=== PATIENT | male | born 1955 | race Caucasian/White ===

== ENCOUNTER → 2016-05-10 | Outpatient (CLI) | payer OTHER ==
--- NOTE | 2016-05-10 12:24 | US ---
EXAMINATION TYPE: US liver DATE OF EXAM: 05/10/2016 9:21 AM COMPARISON: CT on PACS 19 October 2015 CLINICAL HISTORY: hepatomegaly per order; patient states is on multiple meds for HTN, diabetes, CHF a nd drank daily x multiple years and has been sober x 24 days per patient; Ht6'2, Wt 196lbs EXAM MEASUREMENTS: Liver Length: 20.1cm Gallbladder Wall: 0.2cm CBD: 0.5cm Right Kidney: 11.9 x 5.6 x 4.3cm ANATOMY: There is no ascites. Echogenic focus within the liver compatible with calcifications seen on CT. Pancreas: hyperechoic Liver: enlarged as size > 18cm; prominent left lobe; very small hyperechoic focus at superior right lobe and may represent granuloma Gallbladder: couple of mobile, hyperechoic,shadowing posterior wall compatible with stones Evidence for sonographic Recinos's sign: no CBD: wnl Right Kidney: no hydro or masses seen IMPRESSION: Findings suggest fatty infiltration of the liver versus hepatocellular disease. Cholelith iasis. Limited exam. Normal Values: Liver Length: < 16cm wnl, 17-18cm upper limits, >18cm enlarged Renal Length = 9 - 12cm GB Wall: < 0.3cm CBD: < 0.6cm or < 1.0cm post cholecystectomy
== END | disposition home or self-care (01) ==
LOC: RADUSWWP 08:43
PROVIDERS: ATTEND Family Medicine
DX: K80.20 Calculus of gallbladder without cholecystitis without obstruction (principal); R16.0 Hepatomegaly, not elsewhere classified; Z90.49 Acquired absence of other specified parts of digestive tract
CPT/HCPCS: 76705

== ENCOUNTER 2016-06-23 20:45 | Inpatient (IN) | payer OTHER ==
[2016-06-23] MEDS ORDERED: SODIUM CHLORIDE 0.9% 500 ML IV ONE (21:03)
[2016-06-23 21:04] LABS: Glucose,Whole Blood 336 mg/dL (75-99)
[2016-06-23] MEDS ORDERED: MIDAZOLAM HCL 100 MG in SODIUM CHLORIDE 0.9% 80 ML IV ONE (21:57)
[2016-06-23] MEDS ORDERED: NALOXONE 0.4 MG/ML 1 ML VIAL IV PRN (22:10)
[2016-06-23] MEDS ORDERED: PROPOFOL 500 MG in EMPTY BAG 1 BAG IV ONE (22:10)
[2016-06-23] MEDS ORDERED: INSULIN NPH 300 UNIT/3 ML VIAL SQ PRN (22:13)
[2016-06-23 22:16] LABS: CH 30.4; CHCM 30.9; HCT 46.5 % (39.0-53.0); HDW 2.45; HGB 14.9 gm/dL (13.0-17.5); Hypochromasia Slight; MCH 31.6 pg (25.0-35.0); MCV 98.8 fL (80.0-100.0); Mean Platelet Volume 10.5; RBC 4.71 m/uL (4.30-5.90); RDW 13.8 % (11.5-15.5); WBC 17.4 k/uL (3.8-10.6); WBC (Perox) 18.11
[2016-06-23] MEDS ORDERED: SUCCINYLCHOLINE CHLORIDE VIAL 200 MG/10 ML VIAL IV STA (22:18)
[2016-06-23 22:19] LABS: ALT 252 U/L (21-72); AST 271 U/L (17-59); Alcohol <10 mg/dL; Alkaline Phosphatase 131 U/L (38-126); Anion Gap 16 mmol/L; Blood Urea Nitrogen 48 mg/dL (9-20); Calcium 10.2 mg/dL (8.4-10.2); Carbon Dioxide 29 mmol/L (22-30); Chloride 94 mmol/L (98-107); Glucose 333 mg/dL (74-99); Non-African American GFR(MDRD) >60 (>60 ml/min/1.73 sqM); Potassium 5.3 mmol/L (3.5-5.1); Sodium 139 mmol/L (137-145); Total Bilirubin 1.5 mg/dL (0.2-1.3); Total Protein 6.2 g/dL (6.3-8.2)
--- NOTE | 2016-06-23 22:35 | ED ---
General Adult HPI - General Chief complaint: Abdominal Pain Stated complaint: abd pain Time Seen by Provider: 06/23/16 20:48 Source: patient, EMS Mode of arrival: EMS - History of Present Illness Initial comments: Patient presents with a complaint of abdominal pain. My initial evaluation of the patient, he is completely altered. He does not answer questions and provides no further information. His family states that he has been in decline over couple days, however today he has not been responding or answering any questions of any kind. - Related Data Home Medications Medication Instructions Recorded Confirmed Budesonide-Formot 160-4.5 Mcg 2 puff INHALATION RT-BID 11/29/13 06/23/16 [Symbicort 160-4.5 Mcg Inhaler] Insulin NPH Human Isophane 0 unit SQ QAM PRN 11/29/13 06/23/16 [NovoLIN N] Insulin NPH Human Isophane 0 unit SQ HS 03/18/15 06/23/16 [NovoLIN N] Ipratropium/Albuterol Sulfate 1 puff INHALATION RT-TID 02/04/16 06/23/16 [Combivent Respimat Inhaler] Multivitamins, Thera [Multivitamin] 1 tab PO DAILY 02/04/16 06/23/16 Nitroglycerin Sl Tabs [Nitrostat] 0.4 mg SUBLINGUAL Q5M PRN 02/04/16 06/23/16 Biotin 1,000 mcg PO DAILY 06/23/16 06/23/16 Ciprofloxacin HCl [Cipro] 500 mg PO Q12HR 06/23/16 06/23/16 Folic Acid 0.4 mg PO DAILY 06/23/16 06/23/16 Magnesium Gluconate [Magonate] 500 mg PO DAILY 06/23/16 06/23/16 Metoprolol Tartrate [Lopressor] 12.5 mg PO BID 06/23/16 06/23/16 Pregabalin [Lyrica] 50 mg PO TID 06/23/16 06/23/16 Tamsulosin [Flomax] 0.4 mg PO HS 06/23/16 06/23/16 Vitamin B-12 1,000 mcg PO DAILY 06/23/16 06/23/16 Vitamin B-6 100 mcg PO DAILY 06/23/16 06/23/16 Vitamin K 100 mcg PO DAILY 06/23/16 06/23/16 predniSONE See Taper PO DAILY 06/23/16 06/23/16 Previous Rx's Medication Instructions Recorded Omeprazole [PriLOSEC] 20 mg PO BID #30 03/19/15 LORazepam [Ativan] 1 mg PO Q8H PRN #20 tab 12/31/15 Thiamine [Vitamin B-1] 100 mg PO DAILY #30 tablet 12/31/15 Allergies Allergy/AdvReac Type Severity Reaction Status Date / Time codeine AdvReac Nausea & Verified 06/23/16 21:05 Vomiting Opioids - Morphine Analogues AdvReac Nausea & Verified 06/23/16 21:05 Vomiting Opioids-Meperidine and AdvReac Nausea & Verified 06/23/16 21:05 Related Vomiting [Opioids-Meperidine & Related] Opioids-Methadone and Related AdvReac Nausea & Verified 06/23/16 21:05 [Opioids-Methadone & Related] Vomiting Review of Systems ROS Statement: Those systems with pertinent positive or pertinent negative responses have been documented in the HPI. ROS Other: All systems not noted in ROS Statement are negative. Past Medical History Past Medical History: Atrial Fibrillation, Heart Failure, COPD, Diabetes Mellitus, GERD/Reflux, Hyperlipidemia, Hypertension, Sleep Apnea/CPAP/BIPAP Additional Past Medical History / Comment(s): Other HX: Chronic hypoxic respiratory failure and the patient OXYGEN dependent between 3-1/2-4 L prn and at night, IDDM type II, paroxysmal AFIB, alcoholism, diverticulosis, obstuctive sleep apnea but no Cpap since wt loss, sinusitis, neuropathy bilateral feet. History of Any Multi-Drug Resistant Organisms: None Reported Past Surgical History: Heart Catheterization Additional Past Surgical History / Comment(s): colonoscopy x 2, eyelid surgery bilaterally, cardiac cath without intervention. Past Anesthesia/Blood Transfusion Reactions: Postoperative Nausea & Vomiting ( PONV) Additional Past Anesthesia/Blood Transfusion Reaction / Comment(s): Pt states he has had PONV with gas only. Past Psychological History: Anxiety, Depression, Panic Disorder Additional Psychological History / Comment(s): He uses no assistive device. He drives. Smoking Status: Current every day smoker Past Alcohol Use History: Abuse, Daily Additional Past Alcohol Use History / Comment(s): HAS BEEN SMOKING 1 PPD FOR PAST 40 YEARS. Pt states he is an alcoholic. He drinks whiskey every day " alot of it." He last drank at earlier this morning today. He has hx of DTs. Past Drug Use History: Unable to Obtain Additional Drug Use History / Comment(s): Pt states in the 1970s and s he used a variety of drugs (unable to state which ones) but has not used any since. - Past Family History Mother Family Medical History: Thyroid Disorder Additional Family Medical History / Comment(s): Mother is 86 yrs. old. Father Additional Family Medical History / Comment(s): Father of diverticulitis, peritonitis at the age of 35yrs. General Exam Limitations: altered mental status General appearance: lethargic, obtunded Head exam: Present: atraumatic Eye exam: Present: normal appearance ENT exam: Present: normal exam Neck exam: Absent: tenderness Respiratory exam: Present: accessory muscle use, decreased breath sounds Cardiovascular Exam: Present: tachycardia GI/Abdominal exam: Present: distended, tenderness Extremities exam: Present: normal inspection, full ROM, normal capillary refill. Absent: tenderness, pedal edema, joint swelling, calf tenderness Back exam: Present: normal inspection Neurological exam: Present: other (Disoriented) Psychiatric exam: Absent: normal affect Skin exam: Present: mottled, other Course Vital Signs 06/23/16 20:46 Temperature 98.3 F Pulse Rate 49 L Respiratory 20 Rate Blood Pressure 112/58 O2 Sat by Pulse 97 Oximetry Medical Decision Making - Medical Decision Making Patient presents with acute altered mental status. The differential is broad. He was not adequately protecting his airway. Therefore I intubated the patient. 1 view chest x-ray confirms tube position. Bilateral breath sounds are auscultated. Patient will be started on a drip for sedation. He will be admitted to the ICU. - Lab Data Result diagrams: 06/23/16 21:45 06/23/16 21:45 Lab Results 06/23/16 06/23/16 06/23/16 Range/Units 21:00 21:45 21:45 WBC 17.4 H (3.8-10.6) k/uL RBC 4.71 (4.30-5.90) m/uL Hgb 14.9 (13.0-17.5) gm/dL Hct 46.5 (39.0-53.0) % MCV 98.8 (80.0-100.0) fL MCH 31.6 (25.0-35.0) pg MCHC 32.0 (31.0-37.0) g/dL RDW 13.8 (11.5-15.5) % Plt Count 164 (150-450) k/uL Sodium 139 (137-145) mmol/L Potassium 5.3 H (3.5-5.1) mmol/L Chloride 94 L (98-107) mmol/L Carbon Dioxide 29 (22-30) mmol/L Anion Gap 16 mmol/L BUN 48 H (9-20) mg/dL Creatinine 0.80 (0.66-1.25) mg/dL Est GFR (MDRD) Af Amer >60 (>60 ml/min/1.73 sqM) Est GFR (MDRD) Non-Af >60 (>60 ml/min/1.73 sqM) Glucose 333 H (74-99) mg/dL POC Glucose (mg/dL) 336 H (75-99) mg/dL POC Glu Bottle Carrier ID Gail Henderson Calcium 10.2 (8.4-10.2) mg/dL Total Bilirubin 1.5 H (0.2-1.3) mg/dL AST 271 H (17-59) U/L ALT 252 H (21-72) U/L Alkaline Phosphatase 131 H (38-126) U/L Total Protein 6.2 L (6.3-8.2) g/dL Albumin 3.2 L (3.5-5.0) g/dL Serum Alcohol <10 mg/dL Critical Care Time Critical Care Time: Yes Total Critical Care Time: 35 Disposition Clinical Impression: Altered mental status Disposition: ADMITTED IP TO THIS [facility] Condition: Critical Time of Disposition: 22:35
[2016-06-23 22:40] LABS: INR 1.4 (<1.1); Partial Thromboplastin Time 25.5 sec (22.0-30.0); Prothrombin Time 13.9 sec (9.0-12.0)
[2016-06-23 22:41] LABS: Add Differential Manual Differential
[2016-06-23 22:42] LABS: Manual Review Performed; Nucleated Red Blood Cells 0 /100 WBC (0-0); Total Cells Counted 100; Toxic Vacuolation Present
--- NOTE | 2016-06-23 22:48 | XR ---
EXAMINATION TYPE: XR chest 1V portable DATE OF EXAM: 06/23/2016 10:35 PM COMPARISON: April 17, 2016 HISTORY: Altered mental status. Placement TECHNIQUE: Single frontal view of the chest is obtained. Portable study 06/23/2016, 10:30 PM hours. FINDINGS: ET tube is noted in place with its tip 2 cm above the hammad. Mild prominence of bronchovascular markings is noted of chronic nature. There is no focal air space opacity, pleural effusion, or pneumothorax seen. The cardiac silhouette size is within normal limits. The osseous structures are intact. IMPRESSION: 1. ET tube is noted in place. 2. No focal pneumonia.
[2016-06-23 22:51] LABS: ABG PCO2 70 mmHg (35-45); ABG PH 7.23 (7.35-7.45)
[2016-06-23 22:52] LABS: ABG Base Excess 1.1 mmol/L; ABG HCO3 28 mmol/L (21-25); ABG PO2 279 mmHg (83-108); ABG TCO2 30 mmol/L (19-24)
[2016-06-23] MEDS ORDERED: metroNIDAZOLE-NS PMX 500 MG in SALINE 1 100ML.BAG IVPB STA (22:59)
[2016-06-23] MEDS ORDERED: IV VANCOMYCIN PER PHARMACY 1 EACH MISC MISCELLANE PRN (22:59)
[2016-06-23] MEDS ORDERED: PANTOPRAZOLE 40 MG/10 ML VIAL IVP ONE (22:59)
[2016-06-23] MEDS ORDERED: SODIUM CHLORIDE 0.9% 1,000 ML IV STA (23:00)
[2016-06-23 23:08] LABS: Amorphous Sediment,Urine Rare /hpf; Appearance,Urine Cloudy (Clear); Bilirubin,Urine 1+ (Negative); Glucose,Urine (UA) Trace (Negative); Ketones,Urine Trace (Negative); Leukocyte Esterase,Urine Negative (Negative); Mucus,Urine Few /hpf; Nitrite,Urine Negative (Negative); PH, Urine 5.5 (5.0-8.0); Particle Count 26816; Protein,Urine 1+ (Negative); UA Billing (MACRO vs. MICRO) MICRO; WBC,Urine 3 /hpf (0-5)
--- NOTE | 2016-06-23 23:41 | CT ---
EXAMINATION TYPE: CT brain wo con DATE OF EXAM: 06/23/2016 11:29 PM COMPARISON: 02/16/2016 HISTORY: AMS CT DLP: 1126.50 mGycm Automated exposure control for dose reduction was used. FINDINGS: There is no acute intracranial hemorrhage, mass effect, or midline shift identified. The cortical sul ci and ventricles are slightly prominent in size. Mild periventricular white matter ischemic changes are suggested bilaterally. The globes are intact. Mucosal thickening is noted in the maxillary and et hmoid sinuses and frontal sinuses with chronic sinusitis changes. ET tube is noted in place. IMPRESSION: No acute intracranial hemorrhage, mass effect, or midline shift is seen. Mild atrophic changes of brain with periventricular white matter ischemic changes. No significant interval change. ET tube noted in place. Chronic sinusitis changes.
--- NOTE | 2016-06-24 00:09 | CT ---
EXAMINATION TYPE: CT abdomen pelvis w con DATE OF EXAM: 06/23/2016 11:29 PM COMPARISON: 10/19/2015 HISTORY: LUQ pain, hx of liver failure CT DLP: 1638.10 mGycm Automated exposure control for dose reduction was used. TECHNIQUE: Helical acquisition of images was performed from the lung bases through the pelvis. CONTRAST: Performed without Oral Contrast and with IV Contrast, patient injected with 100 mL of Omnipaque 300. FINDINGS: LUNG BASES: Mild right lower lobe lung atelectasis and infiltrate is noted. This may represent a righ t lower lobe posterior basal segment pneumonia. NG tube is noted in place. LIVER/GB: Mild hepatomegaly is suggested. There is interval development of hypodense slightly enhancing mass measuring 9.8 x 9.6 cm in the left hepatic lobe in the axial image 29 and there which measures 1.5 cm in craniocaudal dimension in the coronal image 26 and may represent benign inflammatory process with abscess collection. However metas tatic disease process cannot be excluded. Heterogeneous densities are noted in the gallbladder lumen and may represent small polyps or gallston es. Minor thickening of caliber wall is suggested. Possibility of hydrops gallbladder changes cannot be excluded. Mild ascites fluid is suggested surrounding the liver spleen and lower pelvis. PANCREAS: No significant abnormality is seen. SPLEEN: No significant abnormality is seen. ADRENALS: No significant abnormality is seen. KIDNEYS: Mild cystic changes are suggested in both kidneys without significant hydronephrosis or obst ructing stones. RETROPERITONEAL ADENOPATHY: None visualized REPRODUCTIVE ORGANS: No significant abnormality is seen URINARY BLADDER: Showed thickened mucosal wall with Werner catheter in place with probable incomplete distention of the urinary bladder. Possibility of chronic inflammation of urinary bladder cannot be excluded. Small air collection is noted in the lumen of the urinary bladder. PELVIC ADENOPATHY: None visualized. OSSEOUS STRUCTURES: Mild multilevel degenerative changes are present in the thoracolumbar spine. BOWEL: NG tube is noted in the stomach. Small bowel loops appear grossly unremarkable without signif icant obstruction. There is evidence of moderate colonic diverticulosis especially in the sigmoid col on. Minor free fluid collection is noted in the lower pelvis in the axial image 83 and possibility of mild inflammation of colon cannot BE excluded. Visualized appendix appears grossly unremarkable in t he coronal image 42. OTHER: [id number] diffuse atherosclerotic calcification is noted in the abdominal aorta and akosua ac arteries with greatest transverse diameter of 2.4 cm in the axial image 46. Small fat-containing umbilical hernia is noted. Mild ascites fluid is suggested in the left upper quadrant of abdomen in the axial image 26 with mild inflammation. Mild ascites fluid is also noted around the liver and in the lower pelvis. IMPRESSION: 1. THERE IS INTERVAL DEVELOPMENT OF MASSLIKE AREA IN THE LEFT HEPATIC LOBE MEASURING 9.8 X 9.6 BY 11. 5 CM AND MAY REPRESENT FOCAL INFLAMMATORY PROCESS OR ABSCESS COLLECTION HOWEVER METASTATIC DISEASE [place] OCESS CANNOT BE EXCLUDED. 2. Moderate colonic diverticulosis is noted without significant focal abscess collection. Minor free fluid collection is noted in the lower pelvis and possibility of mild inflammation of the colon canno t BE excluded. This fluid collection may also be related to ascites fluid which is seen around liver and left upper abdomen. 3. Werner catheter is noted in the urinary bladder. Possibility of chronic inflammation of urinary fabian dder cannot be excluded. 4. Right lower lobe lung infiltrate/pneumonia/atelectasis. 5. NG tube is noted. 6. Possible polyps or stones in the gallbladder. An ultrasound study would BE helpful in the evaluati on. Possibility of hydrops gallbladder changes cannot be excluded. 7. Cystic changes in both kidneys without hydronephrosis. A phone report is given to Dr. Fonseca at the time of the dictation in the emergency room.
[2016-06-24] MEDS ORDERED: AMPICILLIN-SULBACTAM 3 GM in SODIUM CHLORIDE 0.9% 100 ML IVPB STA (00:11)
[2016-06-24] MEDS ORDERED: LORazepam 2 MG/ML SYRINGE IV STA (00:18)
[2016-06-24] MEDS ORDERED: NOREPINEPHRINE 4 MG in SODIUM CHLORIDE 0.9% 250 ML IV SCH (00:30)
[2016-06-24] MEDS: AMPICILLIN-SULBACTAM 3 GM in SODIUM CHLORIDE 0.9% 100 ML IVPB SCH ×3 (00:48→12:50)
[2016-06-24] MEDS: VANCOMYCIN 1,500 MG in SODIUM CHLORIDE 0.9% 250 ML IVPB SCH ×3 (02:50→16:02)
[2016-06-24 03:16] LABS: Glucose,Whole Blood 321 mg/dL (75-99)
[2016-06-24 03:34] LABS: Amorphous Sediment,Urine Rare /hpf; Appearance,Urine Turbid (Clear); Bacteria,Urine Rare /hpf; Bilirubin,Urine 1+ (Negative); Glucose,Urine (UA) Trace (Negative); Ketones,Urine Negative (Negative); Leukocyte Esterase,Urine Negative (Negative); Mucus,Urine Many /hpf; Nitrite,Urine Negative (Negative); PH, Urine 5.5 (5.0-8.0); Particle Count 45633; Protein,Urine 2+ (Negative); RBC,Urine 8 /hpf (0-5); Specific Gravity,Urine 1.041 (1.001-1.035); Squamous Epithelial Cell,Urine 5 /hpf (0-4); UA Billing (MACRO vs. MICRO) MICRO; WBC,Urine 6 /hpf (0-5)
[2016-06-24] MEDS: SODIUM CHLORIDE 0.9% 1,000 ML IV SCH ×2 (04:11→16:05)
[2016-06-24 04:47] LABS: ABG Base Excess -2.8 mmol/L; ABG HCO3 24 mmol/L (21-25); ABG Oxygen Saturation 97.4 % (94-97); ABG PCO2 63 mmHg (35-45); ABG PH 7.21 (7.35-7.45); ABG PO2 117 mmHg (83-108); ABG TCO2 26 mmol/L (19-24)
[2016-06-24 05:09] LABS: INR 1.4 (<1.1); Partial Thromboplastin Time 25.8 sec (22.0-30.0); Prothrombin Time 13.5 sec (9.0-12.0)
[2016-06-24 05:13] LABS: Anion Gap 14 mmol/L; Aty Lym Flag Slight; Blood Urea Nitrogen 54 mg/dL (9-20); CH 30.2; CHCM 29.8; Calcium 8.6 mg/dL (8.4-10.2); Carbon Dioxide 20 mmol/L (22-30); Chloride 102 mmol/L (98-107); Glucose 316 mg/dL (74-99); HCT 44.2 % (39.0-53.0); HDW 2.35; HGB 13.3 gm/dL (13.0-17.5); Hypochromasia Marked; MCH 30.5 pg (25.0-35.0); MCV 101.6 fL (80.0-100.0); Macrocytosis Slight; Magnesium 1.9 mg/dL (1.6-2.3); Mean Platelet Volume 10.2; Non-African American GFR(MDRD) 52 (>60 ml/min/1.73 sqM); Phosphorous 5.7 mg/dL (2.5-4.5); Potassium 5.8 mmol/L (3.5-5.1); RBC 4.35 m/uL (4.30-5.90); RDW 13.8 % (11.5-15.5); Sodium 136 mmol/L (137-145); WBC 18.8 k/uL (3.8-10.6); WBC (Perox) 18.44
[2016-06-24] MEDS: PROPOFOL 500 MG in EMPTY BAG 1 BAG IV SCH ×4 (05:18→20:45)
[2016-06-24] MEDS ORDERED: SODIUM CHLORIDE 0.9% 1,000 ML IV ONE ×2 (05:25→06:27)
[2016-06-24 05:42] LABS: Add Differential Manual Differential
[2016-06-24 05:48] LABS: Band Neutrophils % 1.5 %; Manual Review Performed; Nucleated Red Blood Cells 0 /100 WBC (0-0); Total Cells Counted 200
[2016-06-24 05:49] LABS: Large Platelets Present
[2016-06-24 06:06] LABS: Glucose,Whole Blood 321 mg/dL (75-99)
[2016-06-24] MEDS: NOREPINEPHRINE 16 MG in SODIUM CHLORIDE 0.9% 250 ML IV SCH ×2 (06:34→14:54)
[2016-06-24] MEDS: LEVALBUTEROL NEB (CONC) 1.25 MG/0.5 ML AMP INHALATION SCH ×4 (07:52→19:45)
[2016-06-24] MEDS: IPRATROPIUM 0.5 MG/2.5 ML NEBU INHALATION SCH ×4 (07:52→19:45)
--- NOTE | 2016-06-24 08:40 | XR ---
EXAMINATION TYPE: XR chest 1V portable DATE OF EXAM: 06/24/2016 6:42 AM HISTORY: Ventilatory progress. REFERENCE: Previous study dated 06/23/2016. FINDINGS: The patient is ET tube remains in place in satisfactory position. An NG tube is been passed . Its tip is not visualized. The heart is mildly enlarged. There is some right basilar airspace disease. There is a small right ef fusion. IMPRESSION: 1. DEVELOPING RIGHT BASILAR INFILTRATE. 2. SMALL RIGHT EFFUSION. 3. MILD CARDIOMEGALY.
[2016-06-24 08:55] LABS: Glucose,Whole Blood 306 mg/dL (75-99)
[2016-06-24] MEDS ORDERED: METOPROLOL TARTRATE 12.5 MG TAB PO SCH (09:00)
[2016-06-24] MEDS ORDERED: VITAMIN K 100 MCG PO SCH (09:00)
[2016-06-24] MEDS: HEPARIN SODIUM,PORCINE 5,000 UNIT/ML 1 ML VIAL SQ SCH ×2 (09:29→15:02)
[2016-06-24] MEDS: PANTOPRAZOLE 40 MG/10 ML VIAL IVP SCH ×2 (09:29→20:38)
[2016-06-24] MEDS: CHLORHEXIDINE GLUCONATE 15 ML CUP MUCOUS MEM SCH ×2 (09:29→20:44)
--- NOTE | 2016-06-24 09:31 | P.CNPUL ---
History of Present Illness Consult date: 06/24/16 Reason for consult: other Chief complaint: Abdominal pain and respiratory failure History of present illness: This is a 60-year-old gentleman who apparently came into the emergency room complaining of abdominal pain. The patient was seen by the ER doctor. I did talk to the ER doctor. The patient apparently declined in the emergency room and was eventually intubated and transferred here to the ICU. The circumstances of his visit to the ER not well-documented in the ER nereyda. I'm not sure exactly what happened. He did have a computed tomography scan which showed a possible right upper quadrant abscess or liver abnormality. GI and surgery has been consulted. He's given the lines. He was sent up to the ICU about 3:30 this morning. He's currently on Levophed at 32 mics per minute. He is on propofol and 18 mics per kilogram per minute appointment 9 IV at 75. He is currently on the ventilator of the assist control mode rate of 14 tidal [place] 500 FiO2 40% PEEP of 5. We will increase the tidal volume to try decrease the time of I'm to 4:15 increase rate to 20. Blood gases show pO2 of 112 a pCO2 of 63 and a pH 7.21. This is on 60% FiO2. The patient apparently has a history of atrial fibrillation CHF COPD diabetes mellitus GERD hyperlipidemia benign essential hypertension sleep apnea. Again not much is known about this patient in the ER documentation is rather poor. Review of Systems ROS unobtainable: due to endotracheal tube Past Medical History Past Medical History: Atrial Fibrillation, Heart Failure, COPD, Diabetes Mellitus, GERD/Reflux, Hyperlipidemia, Hypertension, Sleep Apnea/CPAP/BIPAP Additional Past Medical History / Comment(s): Other HX: Chronic hypoxic respiratory failure and the patient OXYGEN dependent between 3-1/2-4 L prn and at night, IDDM type II, paroxysmal AFIB, alcoholism, diverticulosis, obstuctive sleep apnea but no Cpap since wt loss, sinusitis, neuropathy bilateral feet. History of Any Multi-Drug Resistant Organisms: None Reported Past Surgical History: Heart Catheterization Additional Past Surgical History / Comment(s): colonoscopy x 2, eyelid surgery bilaterally, cardiac cath without intervention. Past Anesthesia/Blood Transfusion Reactions: Postoperative Nausea & Vomiting ( PONV) Additional Past Anesthesia/Blood Transfusion Reaction / Comment(s): Pt states he has had PONV with gas only. Past Psychological History: Anxiety, Depression, Panic Disorder Additional Psychological History / Comment(s): He uses no assistive device. He drives. Smoking Status: Current every day smoker Past Alcohol Use History: Abuse, Daily Additional Past Alcohol Use History / Comment(s): HAS BEEN SMOKING 1 PPD FOR PAST 40 YEARS. Pt states he is an alcoholic. He drinks whiskey every day " alot of it." He last drank at earlier this morning today. He has hx of DTs. Past Drug Use History: Unable to Obtain Additional Drug Use History / Comment(s): Pt states in the 1970s and he used a variety of drugs (unable to state which ones) but has not used any since. - Past Family History Mother Family Medical History: Thyroid Disorder Additional Family Medical History / Comment(s): Mother is 86 yrs. old. Father Additional Family Medical History / Comment(s): Father of diverticulitis, peritonitis at the age of 35yrs. Medications and Allergies Home Medications Medication Instructions Recorded Confirmed Type Budesonide-Formot 160-4.5 Mcg 2 puff INHALATION RT-BID 11/29/13 06/23/16 History [Symbicort 160-4.5 Mcg Inhaler] Insulin NPH Human Isophane 50 unit SQ AC-BRKFST PRN 11/29/13 06/24/16 History [NovoLIN N] Insulin NPH Human Isophane 45 unit SQ AC-SUPPER 03/18/15 06/24/16 History [NovoLIN N] Ipratropium/Albuterol Sulfate 1 puff INHALATION RT-TID 02/04/16 06/23/16 History [Combivent Respimat Inhaler] Multivitamins, Thera [Multivitamin] 1 tab PO DAILY 02/04/16 06/23/16 History Nitroglycerin Sl Tabs [Nitrostat] 0.4 mg SUBLINGUAL Q5M PRN 02/04/16 06/23/16 History Biotin 1,000 mcg PO DAILY 06/23/16 06/23/16 History Ciprofloxacin HCl [Cipro] 500 mg PO Q12HR 06/23/16 06/23/16 History Folic Acid 0.4 mg PO DAILY 06/23/16 06/23/16 History Magnesium Gluconate [Magonate] 500 mg PO DAILY 06/23/16 06/23/16 History Metoprolol Tartrate [Lopressor] 12.5 mg PO BID 06/23/16 06/23/16 History Pregabalin [Lyrica] 50 mg PO TID 06/23/16 06/23/16 History Tamsulosin [Flomax] 0.4 mg PO HS 06/23/16 06/23/16 History Vitamin B-12 1,000 mcg PO DAILY 06/23/16 06/23/16 History Vitamin B-6 100 mcg PO DAILY 06/23/16 06/23/16 History Vitamin K 100 mcg PO DAILY 06/23/16 06/23/16 History predniSONE See Taper PO DAILY 06/23/16 06/23/16 History Allergies Allergy/AdvReac Type Severity Reaction Status Date / Time codeine AdvReac Nausea & Verified 06/23/16 21:05 Vomiting Opioids - Morphine Analogues AdvReac Nausea & Verified 06/23/16 21:05 Vomiting Opioids-Meperidine and AdvReac Nausea & Verified 06/23/16 21:05 Related Vomiting [Opioids-Meperidine & Related] Opioids-Methadone and Related AdvReac Nausea & Verified 06/23/16 21:05 [Opioids-Methadone & Related] Vomiting Physical Exam Osteopathic Statement: *. No significant issues noted on an osteopathic structural exam other than those noted in the History and Physical/Consult. Vitals: Vital Signs Temp Pulse Resp BP Pulse Ox 06/24/16 08:39 91 06/24/16 07:55 85 06/24/16 07:00 81 29 H 78/55 95 06/24/16 06:30 86 19 95/59 94 L 06/24/16 06:00 83 15 89/59 96 06/24/16 05:00 84 15 93/63 95 06/24/16 04:30 85 14 100 06/24/16 04:00 97.8 F 88 15 79/57 100 06/24/16 03:51 16 06/24/16 03:50 88 15 79/57 100 06/24/16 03:40 90 12 81/58 100 06/24/16 03:30 90 14 84/50 100 06/24/16 03:20 89 14 84/50 99 06/24/16 03:15 89/60 06/24/16 02:51 92 16 90/54 100 06/24/16 02:21 92 16 86/56 100 06/24/16 01:51 92 16 85/57 100 06/24/16 01:21 92 16 89/57 100 06/24/16 00:21 103 H 20 75/50 100 Intake and Output 06/23/16 06/24/16 06/24/16 22:59 06:59 14:59 Intake Total 4052.082 1017.298 Output Total 87 57 Balance 3965.082 960.298 Intake: IV 1475 1000 Ampicillin-Sulbactam 3 gm 100 In Sodium Chloride 0.9% 100 ml @ 100 mls/hr IVPB Q6HR [facility] Rx#:[id number] Sodium Chloride 0.9% 1, 125 000 ml @ 75 mls/hr IV . [id number] [facility] Rx#:[id number] Sodium Chloride 0.9% 1, 1000 1000 000 ml @ 999 mls/hr IV . Q1H1M [facility] Rx#:[id number] Vancomycin 1,500 mg In 250 Sodium Chloride 0.9% 250 ml @ 125 mls/hr IVPB Q8H [facility] Rx#:[id number] Amount of Fluid Infused ( 2300 ml) Intake, IV Titration 277.082 17.298 Amount Norepinephrine 16 mg In 3.724 8.976 Sodium Chloride 0.9% 250 ml @ Titrate IV .Q0M [facility] Rx#:[id number] Norepinephrine 4 mg In 254.000 Sodium Chloride 0.9% 250 ml @ Titrate IV .Q0M [facility] Rx#:[id number] Propofol 500 mg In Empty 12.238 Bag 1 bag @ Titrate IV . Q0M [facility] Rx#:[id number] Propofol 500 mg In Empty 7.120 8.322 Bag 1 bag @ Titrate IV . Q0M [facility] Rx#:[id number] Output: Urine 87 57 Other: Voiding Method Indwelling Catheter Weight 92.6 kg The patient's intubated and mechanically ventilated. He states that he's had an orally placed endotracheal tube and NG tube. HEENT examination is grossly unremarkable. Mixed membranes are moist. An orally placed endotracheal tube and NG tube are noted. Neck supple. Full range of motion. Cardiovascular examination reveals regular rhythm rate. Heart rate about 90. Is regular. Lungs reveal diffuse bilateral rhonchi. Breath sounds diminished. Abdomen soft. Bowel sounds are heard. Extremities are intact. Results - Laboratory Findings CBC and BMP: 06/24/16 04:33 06/24/16 04:33 ABG ABG pH 7.21 (7.35-7.45) L 06/24/16 04:42 ABG pCO2 63 mmHg (35-45) H 06/24/16 04:42 ABG pO2 117 mmHg (83-108) H 06/24/16 04:42 ABG O2 Saturation 97.4 % (94-97) H 06/24/16 04:42 PT/INR, D-dimer PT 13.5 sec (9.0-12.0) H 06/24/16 04:33 INR 1.4 (<1.1) 06/24/16 04:33 Abnormal lab findings: Abnormal Labs 06/23/16 06/24/16 06/24/16 22:40 03:14 03:20 WBC MCV MCHC Neutrophils # (Manual) Lymphocytes # (Manual) Monocytes # (Manual) PT ABG pH 7.23 L ABG pCO2 70 H* ABG pO2 279 H ABG HCO3 28 H ABG Total CO2 30 H ABG O2 Saturation 100.0 H Sodium Potassium Carbon Dioxide BUN Creatinine Glucose POC Glucose (mg/dL) 321 H Phosphorus Ur Specific [place] 1.041 H Urine Protein 2+ H Urine Glucose (UA) Trace H Urine Bilirubin 1+ H Urine RBC 8 H Urine WBC 6 H Ur Squamous Epith Cells 5 H Amorphous Sediment Rare H Urine Bacteria Rare H Hyaline Casts 26 H Urine Mucus Many H 06/24/16 06/24/16 06/24/16 04:33 04:33 04:33 WBC 18.8 H MCV 101.6 H MCHC 30.0 L Neutrophils # (Manual) 15.2 H Lymphocytes # (Manual) 0.6 L Monocytes # (Manual) 3.0 H PT 13.5 H ABG pH ABG pCO2 ABG pO2 ABG HCO3 ABG Total CO2 ABG O2 Saturation Sodium 136 L Potassium 5.8 H Carbon Dioxide 20 L BUN 54 H Creatinine 1.40 H Glucose 316 H POC Glucose (mg/dL) Phosphorus 5.7 H Ur Specific [place] Urine Protein Urine Glucose (UA) Urine Bilirubin Urine RBC Urine WBC Ur Squamous Epith Cells Amorphous Sediment Urine Bacteria Hyaline Casts Urine Mucus 06/24/16 06/24/16 06/24/16 04:42 06:04 08:53 WBC MCV MCHC Neutrophils # (Manual) Lymphocytes # (Manual) Monocytes # (Manual) PT ABG pH 7.21 L ABG pCO2 63 H ABG pO2 117 H ABG HCO3 ABG Total CO2 26 H ABG O2 Saturation 97.4 H Sodium Potassium Carbon Dioxide BUN Creatinine Glucose POC Glucose (mg/dL) 321 H 306 H Phosphorus Ur Specific [place] Urine Protein Urine Glucose (UA) Urine Bilirubin Urine RBC Urine WBC Ur Squamous Epith Cells Amorphous Sediment Urine Bacteria Hyaline Casts Urine Mucus - Diagnostic Findings Chest x-ray: image reviewed (X-rays labs and medications are all reviewed) Assessment and Plan Plan: Assessment Hypoxemic respiratory failure secondary to pneumonia Possible liver abscess History of hypertension History of hyperlipidemia History of sleep apnea syndrome History of atrial fibrillation History of diabetes History of CHF next Plan GI surgeries bit both been consulted. Neither seen the patient. The patient's tidal volume was dropped drop from 500-450. We increase the rate from 14-20. Blood gases will be repeated. He is on propofol at 18 mics per kilogram per minute. Getting appointment 9 IV at 75 mL an hour. He is on vasopressor at 32 mics per kilo per kilogram per minute. He does need an art line and central line. We'll do that this morning. We'll review his medications labs. We'll review his x-rays. Chest x-ray does show developing right basilar infiltrate. Prognosis is guarded. Time with Patient: Greater than 30
--- NOTE | 2016-06-24 09:31 | P.CONS ---
History of Present Illness - Reason for Consult Consult date: 06/24/16 liver mass Requesting physician: Vel Wilburn - History of Present Illness 60-year-old gentleman with a history of EtOH abuse recent hospitalization in April 2016 for alcohol intoxication with withdrawal with underlying COPD home O2 dependent, atrial fibrillation, diabetes mellitus, GERD, hypertension, hyperlipidemia, sleep apnea, anxiety, depression. Admitted with acute mental status changes and subsequently intubated, sedated, currently receiving IV pressors. Medical information obtained from nursing staff and medical records as patient is unable to provide history. Hesitation requested for liver mass. CT abdomen and pelvis reported hypodense enhancing mass measuring 9.8 x 9.6 m in the left hepatic lobe may represent benign process possible abscess collection however metastatic disease cannot be excluded. Gallstone with multiple stones or polyps. Colonic diverticulosis. CT brain no acute intracranial hemorrhage or mass effect or midline shift. Liver ultrasound on May 10 reported enlarged liver with fatty infiltration versus hepatocellular disease. Cholelithiasis. Admission white count 17.4. Hemoglobin 14.9. INR 1.4. Serum alcohol less than 10. Total bilirubin 1.5. AST 271. ALT 252. Alkaline phosphatase 131. Ammonia 11. Liver chemistries in April 2016 normal bilirubin and ALT. AST was 107. Alk phos was 152. Review of Systems ROS unobtainable: due to endotracheal tube, due to mental status All systems: negative (See HPI) Past Medical History Past Medical History: Atrial Fibrillation, Heart Failure, COPD, Diabetes Mellitus, GERD/Reflux, Hyperlipidemia, Hypertension, Sleep Apnea/CPAP/BIPAP Additional Past Medical History / Comment(s): Other HX: Chronic hypoxic respiratory failure and the patient OXYGEN dependent between 3-1/2-4 L prn and at night, IDDM type II, paroxysmal AFIB, alcoholism, diverticulosis, obstuctive sleep apnea but no Cpap since wt loss, sinusitis, neuropathy bilateral feet. History of Any Multi-Drug Resistant Organisms: None Reported Past Surgical History: Heart Catheterization Additional Past Surgical History / Comment(s): colonoscopy x 2, eyelid surgery bilaterally, cardiac cath without intervention. Past Anesthesia/Blood Transfusion Reactions: Postoperative Nausea & Vomiting ( PONV) Additional Past Anesthesia/Blood Transfusion Reaction / Comm: Pt states he has had PONV with gas only. Past Psychological History: Anxiety, Depression, Panic Disorder Additional Psychological History / Comment(s): He uses no assistive device. He drives. Smoking Status: Current every day smoker Past Alcohol Use History: Abuse, Daily Additional Past Alcohol Use History / Comment(s): HAS BEEN SMOKING 1 PPD FOR PAST 40 YEARS. Pt states he is an alcoholic. He drinks whiskey every day " alot of it." He last drank at earlier this morning today. He has hx of DTs. Past Drug Use History: Unable to Obtain Additional Drug Use History / Comment(s): Pt states in the s and he used a variety of drugs (unable to state which ones) but has not used any since. - Past Family History Mother Family Medical History: Thyroid Disorder Additional Family Medical History / Comment(s): Mother is 86 yrs. old. Father Additional Family Medical History / Comment(s): Father of diverticulitis, peritonitis at the age of 35yrs. Medications and Allergies Home Medications Medication Instructions Recorded Confirmed Type Budesonide-Formot 160-4.5 Mcg 2 puff INHALATION RT-BID 11/29/13 06/23/16 History [Symbicort 160-4.5 Mcg Inhaler] Insulin NPH Human Isophane 50 unit SQ AC-BRKFST PRN 11/29/13 06/24/16 History [NovoLIN N] Insulin NPH Human Isophane 45 unit SQ AC-SUPPER 03/18/15 06/24/16 History [NovoLIN N] Ipratropium/Albuterol Sulfate 1 puff INHALATION RT-TID 02/04/16 06/23/16 History [Combivent Respimat Inhaler] Multivitamins, Thera [Multivitamin] 1 tab PO DAILY 02/04/16 06/23/16 History Nitroglycerin Sl Tabs [Nitrostat] 0.4 mg SUBLINGUAL Q5M PRN 02/04/16 06/23/16 History Biotin 1,000 mcg PO DAILY 06/23/16 06/23/16 History Ciprofloxacin HCl [Cipro] 500 mg PO Q12HR 06/23/16 06/23/16 History Folic Acid 0.4 mg PO DAILY 06/23/16 06/23/16 History Magnesium Gluconate [Magonate] 500 mg PO DAILY 06/23/16 06/23/16 History Metoprolol Tartrate [Lopressor] 12.5 mg PO BID 06/23/16 06/23/16 History Pregabalin [Lyrica] 50 mg PO TID 06/23/16 06/23/16 History Tamsulosin [Flomax] 0.4 mg PO HS 06/23/16 06/23/16 History Vitamin B-12 1,000 mcg PO DAILY 06/23/16 06/23/16 History Vitamin B-6 100 mcg PO DAILY 06/23/16 06/23/16 History Vitamin K 100 mcg PO DAILY 06/23/16 06/23/16 History predniSONE See Taper PO DAILY 06/23/16 06/23/16 History Allergies Allergy/AdvReac Type Severity Reaction Status Date / Time codeine AdvReac Nausea & Verified 06/23/16 21:05 Vomiting Opioids - Morphine Analogues AdvReac Nausea & Verified 06/23/16 21:05 Vomiting Opioids-Meperidine and AdvReac Nausea & Verified 06/23/16 21:05 Related Vomiting [Opioids-Meperidine & Related] Opioids-Methadone and Related AdvReac Nausea & Verified 06/23/16 21:05 [Opioids-Methadone & Related] Vomiting Physical Exam Vitals: Vital Signs Temp Pulse Resp BP Pulse Ox 06/24/16 08:39 91 06/24/16 07:55 85 06/24/16 07:00 81 29 H 78/55 95 06/24/16 06:30 86 19 95/59 94 L 06/24/16 06:00 83 15 89/59 96 06/24/16 05:00 84 15 93/63 95 06/24/16 04:30 85 14 100 06/24/16 04:00 97.8 F 88 15 79/57 100 06/24/16 03:51 16 06/24/16 03:50 88 15 79/57 100 06/24/16 03:40 90 12 81/58 100 06/24/16 03:30 90 14 84/50 100 06/24/16 03:20 89 14 84/50 99 06/24/16 03:15 89/60 06/24/16 02:51 92 16 90/54 100 06/24/16 02:21 92 16 86/56 100 06/24/16 01:51 92 16 85/57 100 06/24/16 01:21 92 16 89/57 100 06/24/16 00:21 103 H 20 75/50 100 Intake and Output 06/23/16 06/24/16 06/24/16 22:59 06:59 14:59 Intake Total 4052.082 1017.298 Output Total 87 57 Balance 3965.082 960.298 Intake: IV 1475 1000 Ampicillin-Sulbactam 3 gm 100 In Sodium Chloride 0.9% 100 ml @ 100 mls/hr IVPB Q6HR [facility] Rx#:[id number] Sodium Chloride 0.9% 1, 125 000 ml @ 75 mls/hr IV . [id number] [facility] Rx#:[id number] Sodium Chloride 0.9% 1, 1000 1000 000 ml @ 999 mls/hr IV . Q1H1M [facility] Rx#:[id number] Vancomycin 1,500 mg In 250 Sodium Chloride 0.9% 250 ml @ 125 mls/hr IVPB Q8H [facility] Rx#:[id number] Amount of Fluid Infused ( 2300 ml) Intake, IV Titration 277.082 17.298 Amount Norepinephrine 16 mg In 3.724 8.976 Sodium Chloride 0.9% 250 ml @ Titrate IV .Q0M [facility] Rx#:[id number] Norepinephrine 4 mg In 254.000 Sodium Chloride 0.9% 250 ml @ Titrate IV .Q0M [facility] Rx#:[id number] Propofol 500 mg In Empty 12.238 Bag 1 bag @ Titrate IV . Q0M [facility] Rx#:[id number] Propofol 500 mg In Empty 7.120 8.322 Bag 1 bag @ Titrate IV . Q0M [facility] Rx#:[id number] Output: Urine 87 57 Other: Voiding Method Indwelling Catheter Weight 92.6 kg General appearance: The patient is intubated sedated. HET: Head is normocephalic and atraumatic. Pupils are equal and reactive. Oropharynx is clear without lesions. Endotracheal tube intact. Neck: Supple without lymphadenopathy. Trachea midline. Heart: S1 S2. Lungs: No crackles or wheezes are heard. Abdomen: Soft, nontender, nondistended with bowel sounds. No peritoneal signs. No palpable organomegaly or masses. Extremities: Normal skin color and turgor. No cyanosis, rash, ulceration, clubbing, or edema. Radial and pedal pulses are 2/4 bilaterally. Werner with clear marilee urine. Neurological: Intubated sedated. Results CBC & Chem 7: 06/24/16 04:33 02/17/17 04:33 Labs: Abnormal Lab Results - Last 24 Hours (Table) 06/23/16 06/24/16 06/24/16 Range/Units 22:40 03:14 03:20 WBC (3.8-10.6) k/uL MCV (80.0-100.0) fL MCHC (31.0-37.0) g/dL Neutrophils # (Manual) (1.3-7.7) k/uL Lymphocytes # (Manual) (1.0-4.8) k/uL Monocytes # (Manual) (0-1.0) k/uL PT (9.0-12.0) sec ABG pH 7.23 L (7.35-7.45) ABG pCO2 70 H* (35-45) mmHg ABG pO2 279 H (83-108) mmHg ABG HCO3 28 H (21-25) mmol/L ABG Total CO2 30 H (19-24) mmol/L ABG O2 Saturation 100.0 H (94-97) % Sodium (137-145) mmol/L Potassium (3.5-5.1) mmol/L Carbon Dioxide (22-30) mmol/L BUN (9-20) mg/dL Creatinine (0.66-1.25) mg/dL Glucose (74-99) mg/dL POC Glucose (mg/dL) 321 H (75-99) mg/dL Phosphorus (2.5-4.5) mg/dL Ur Specific [place] 1.041 H (1.001-1.035) Urine Protein 2+ H (Negative) Urine Glucose (UA) Trace H (Negative) Urine Bilirubin 1+ H (Negative) Urine RBC 8 H (0-5) /hpf Urine WBC 6 H (0-5) /hpf Ur Squamous Epith Cells 5 H (0-4) /hpf Amorphous Sediment Rare H (None) /hpf Urine Bacteria Rare H (None) /hpf Hyaline Casts 26 H (0-2) /lpf Urine Mucus Many H (None) /hpf 06/24/16 06/24/16 06/24/16 Range/Units 04:33 04:33 04:33 WBC 18.8 H (3.8-10.6) k/uL MCV 101.6 H (80.0-100.0) fL MCHC 30.0 L (31.0-37.0) g/dL Neutrophils # (Manual) 15.2 H (1.3-7.7) k/uL Lymphocytes # (Manual) 0.6 L (1.0-4.8) k/uL Monocytes # (Manual) 3.0 H (0-1.0) k/uL PT 13.5 H (9.0-12.0) sec ABG pH (7.35-7.45) ABG pCO2 (35-45) mmHg ABG pO2 (83-108) mmHg ABG HCO3 (21-25) mmol/L ABG Total CO2 (19-24) mmol/L ABG O2 Saturation (94-97) % Sodium 136 L (137-145) mmol/L Potassium 5.8 H (3.5-5.1) mmol/L Carbon Dioxide 20 L (22-30) mmol/L BUN 54 H (9-20) mg/dL Creatinine 1.40 H (0.66-1.25) mg/dL Glucose 316 H (74-99) mg/dL POC Glucose (mg/dL) (75-99) mg/dL Phosphorus 5.7 H (2.5-4.5) mg/dL Ur Specific [place] (1.001-1.035) Urine Protein (Negative) Urine Glucose (UA) (Negative) Urine Bilirubin (Negative) Urine RBC (0-5) /hpf Urine WBC (0-5) /hpf Ur Squamous Epith Cells (0-4) /hpf Amorphous Sediment (None) /hpf Urine Bacteria (None) /hpf Hyaline Casts (0-2) /lpf Urine Mucus (None) /hpf 06/24/16 06/24/16 06/24/16 Range/Units 04:42 06:04 08:53 WBC (3.8-10.6) k/uL MCV (80.0-100.0) fL MCHC (31.0-37.0) g/dL Neutrophils # (Manual) (1.3-7.7) k/uL Lymphocytes # (Manual) (1.0-4.8) k/uL Monocytes # (Manual) (0-1.0) k/uL PT (9.0-12.0) sec ABG pH 7.21 L (7.35-7.45) ABG pCO2 63 H (35-45) mmHg ABG pO2 117 H (83-108) mmHg ABG HCO3 (21-25) mmol/L ABG Total CO2 26 H (19-24) mmol/L ABG O2 Saturation 97.4 H (94-97) % Sodium (137-145) mmol/L Potassium (3.5-5.1) mmol/L Carbon Dioxide (22-30) mmol/L BUN (9-20) mg/dL Creatinine (0.66-1.25) mg/dL Glucose (74-99) mg/dL POC Glucose (mg/dL) 321 H 306 H (75-99) mg/dL Phosphorus (2.5-4.5) mg/dL Ur Specific [place] (1.001-1.035) Urine Protein (Negative) Urine Glucose (UA) (Negative) Urine Bilirubin (Negative) Urine RBC (0-5) /hpf Urine WBC (0-5) /hpf Ur Squamous Epith Cells (0-4) /hpf Amorphous Sediment (None) /hpf Urine Bacteria (None) /hpf Hyaline Casts (0-2) /lpf Urine Mucus (None) /hpf CT scan - abdomen: report reviewed (Reviewed by Dr. Coffman) Assessment and Plan (1) Liver mass, left lobe Narrative/Plan: 60-year-old gentleman admitted with acute mental status changes, leukocytosis, possible sepsis intubated and sedated requiring IV pressors with CT imaging reporting left lobe liver mass possible abscess however neoplastic process cannot be entirely excluded with cholelithiasis and underlying history of EtOH abuse. Status: Acute (2) Altered mental status Status: Acute (3) H/O ETOH abuse Status: Chronic (4) COPD (chronic obstructive pulmonary disease) Status: Chronic (5) Diabetes Status: Chronic (6) Cholelithiases Status: Chronic Plan: Recommendations: 1. CT-guided liver biopsy once patient is medically stabilized. 2. Will obtain alpha-fetoprotein level and hepatitis panel. 3. IV antibiotics infectious disease consultation. Gen. surgical consultation. Supportive measures. 4. Will follow with you. Thank you for this kind referral and the opportunity to participate in the care of your patient. This consultation was discussed with Dr. Coffman. The impression and plan of care have been directed as dictated.
[2016-06-24] MEDS ORDERED: CISATRACURIUM 2 MG/ML 5 ML VIAL IV ONE ×2 (09:33→09:47)
--- NOTE | 2016-06-24 10:45 | XR ---
EXAMINATION TYPE: XR chest 1V confirm line [facility] DATE OF EXAM: 06/24/2016 10:30 AM COMPARISON: Prior chest x-ray June at earlier time HISTORY: Status post central venous catheter placement TECHNIQUE: frontal view of the chest is obtained on 2 images. FINDINGS: Interval placement of a left jugular central venous catheter shows the distal tip at the c avoatrial junction level. No evident pneumothorax. No other interval change. Endotracheal tube and NG tube again noted. IMPRESSION: No evident complication status post central venous catheter placement.
[2016-06-24] MEDS: INSULIN LISPRO (humaLOG) 300 UNIT/3 ML VIAL SQ SCH ×3 (11:25→20:50)
[2016-06-24 11:26] LABS: Hepatitis B Surface Ag Index 0.06
[2016-06-24 11:31] LABS: Hepatitis B Core IgM Index 0.06
[2016-06-24 11:43] LABS: Hepatitis C Virus IgG Index 0.01
[2016-06-24 12:40] LABS: Hepatitis C Virus IgG Ab Negative (Negative)
[2016-06-24 14:04] VITALS: BMI 26.2
[2016-06-24 14:11] LABS: Hemoglobin A1C 7.3 % (4.2-6.1)
[2016-06-24 14:55] LABS: Glucose,Whole Blood 248 mg/dL (75-99)
--- NOTE | 2016-06-24 15:33 | P.CON ---
Consult Note - . Consult date: 06/24/16
--- NOTE | 2016-06-24 15:44 | P.CONS ---
History of Present Illness - Reason for Consult Consult date: 06/24/16 Abscess liver - History of Present Illness This is a 60-year-old male with an extensive past medical history. He presented to the emergency center with complaints of abdominal pain that had been going on for a couple of days. Patient had progressive deterioration of his mental status and ended up being intubated and placed on mechanical ventilation while in the emergency center. He was hypotensive and and received a total of 5 L of IV fluids and was placed on norepinephrine. Chest x-ray showed no acute findings. CAT scan of the abdomen and pelvis with contrast showed a mass in the hepatic lobe 9.8 x 9.6 x 11.5 which represented a local inflammatory process or abscess. On CAT scan there was also concern for a right lower lobe infiltrate with pneumonia or atelectasis. He underwent a CAT scan of the brain that showed no acute findings but there was mild atrophic changes in the brain with white matter ischemic changes. Patient has been admitted to the intensive care unit. He has been on Unasyn and vancomycin. He did receive 1 dose of Flagyl in the ER. Urine drug screen was positive for opiates and benzodiazepines. Blood cultures status received in urine culture received. His initial lactic acid was 2.8 and repeat was 1.6. Total bilirubin 1.5, AST 271, ALT 252, alkaline phosphatase 131. BUN 54 and creatinine 1.4 with potassium of 5.8. Patient also presented with leukocytosis of 17.4. He has been afebrile. Consults are in place with gastroenterology, pulmonary medicine and general surgeon. Review of Systems ROS unobtainable: due to endotracheal tube, due to mental status Past Medical History Past Medical History: Atrial Fibrillation, Heart Failure, COPD, Diabetes Mellitus, GERD/Reflux, Hyperlipidemia, Hypertension, Sleep Apnea/CPAP/BIPAP Additional Past Medical History / Comment(s): Other HX: Chronic hypoxic respiratory failure and the patient OXYGEN dependent between 3-1/2-4 L prn and at night, IDDM type II, paroxysmal AFIB, alcoholism, diverticulosis, obstuctive sleep apnea but no Cpap since wt loss, sinusitis, neuropathy bilateral feet. History of Any Multi-Drug Resistant Organisms: None Reported Past Surgical History: Heart Catheterization Additional Past Surgical History / Comment(s): colonoscopy x 2, eyelid surgery bilaterally, cardiac cath without intervention. Past Anesthesia/Blood Transfusion Reactions: Postoperative Nausea & Vomiting ( PONV) Additional Past Anesthesia/Blood Transfusion Reaction / Comm: Pt states he has had PONV with gas only. Past Psychological History: Anxiety, Depression, Panic Disorder Additional Psychological History / Comment(s): He uses no assistive device. He drives. Smoking Status: Current every day smoker Past Alcohol Use History: Abuse, Daily Additional Past Alcohol Use History / Comment(s): HAS BEEN SMOKING 1 PPD FOR PAST 40 YEARS. Pt states he is an alcoholic. He drinks whiskey every day " alot of it." He last drank at earlier this morning today. He has hx of DTs. Past Drug Use History: Unable to Obtain Additional Drug Use History / Comment(s): Pt states in the s and he used a variety of drugs (unable to state which ones) but has not used any since. - Past Family History Mother Family Medical History: Thyroid Disorder Additional Family Medical History / Comment(s): Mother is 86 yrs. old. Father Additional Family Medical History / Comment(s): Father of diverticulitis, peritonitis at the age of 35yrs. Medications and Allergies Home Medications Medication Instructions Recorded Confirmed Type Budesonide-Formot 160-4.5 Mcg 2 puff INHALATION RT-BID 11/29/13 06/23/16 History [Symbicort 160-4.5 Mcg Inhaler] Insulin NPH Human Isophane 50 unit SQ AC-BRKFST PRN 11/29/13 06/24/16 History [NovoLIN N] Insulin NPH Human Isophane 45 unit SQ AC-SUPPER 03/18/15 06/24/16 History [NovoLIN N] Ipratropium/Albuterol Sulfate 1 puff INHALATION RT-TID 02/04/16 06/23/16 History [Combivent Respimat Inhaler] Multivitamins, Thera [Multivitamin] 1 tab PO DAILY 02/04/16 06/23/16 History Nitroglycerin Sl Tabs [Nitrostat] 0.4 mg SUBLINGUAL Q5M PRN 02/04/16 06/23/16 History Biotin 1,000 mcg PO DAILY 06/23/16 06/23/16 History Ciprofloxacin HCl [Cipro] 500 mg PO Q12HR 06/23/16 06/23/16 History Folic Acid 0.4 mg PO DAILY 06/23/16 06/23/16 History Magnesium Gluconate [Magonate] 500 mg PO DAILY 06/23/16 06/23/16 History Metoprolol Tartrate [Lopressor] 12.5 mg PO BID 06/23/16 06/23/16 History Pregabalin [Lyrica] 50 mg PO TID 06/23/16 06/23/16 History Tamsulosin [Flomax] 0.4 mg PO HS 06/23/16 06/23/16 History Vitamin B-12 1,000 mcg PO DAILY 06/23/16 06/23/16 History Vitamin B-6 100 mcg PO DAILY 06/23/16 06/23/16 History Vitamin K 100 mcg PO DAILY 06/23/16 06/23/16 History predniSONE See Taper PO DAILY 06/23/16 06/23/16 History Allergies Allergy/AdvReac Type Severity Reaction Status Date / Time codeine AdvReac Nausea & Verified 06/23/16 21:05 Vomiting Opioids - Morphine Analogues AdvReac Nausea & Verified 06/23/16 21:05 Vomiting Opioids-Meperidine and AdvReac Nausea & Verified 06/23/16 21:05 Related Vomiting [Opioids-Meperidine & Related] Opioids-Methadone and Related AdvReac Nausea & Verified 06/23/16 21:05 [Opioids-Methadone & Related] Vomiting Physical Exam Vitals: Vital Signs Temp Pulse Resp BP Pulse Ox 06/24/16 08:39 91 06/24/16 07:55 85 06/24/16 07:00 81 29 H 78/55 95 06/24/16 06:30 86 19 95/59 94 L 06/24/16 06:00 83 15 89/59 96 06/24/16 05:00 84 15 93/63 95 06/24/16 04:30 85 14 100 06/24/16 04:00 97.8 F 88 15 79/57 100 06/24/16 03:51 16 06/24/16 03:50 88 15 79/57 100 06/24/16 03:40 90 12 81/58 100 06/24/16 03:30 90 14 84/50 100 06/24/16 03:20 89 14 84/50 99 06/24/16 03:15 89/60 06/24/16 02:51 92 16 90/54 100 02/17/17 02:21 92 16 86/56 100 06/24/16 01:51 92 16 85/57 100 06/24/16 01:21 92 16 89/57 100 06/24/16 00:21 103 H 20 75/50 100 Intake and Output 06/23/16 06/24/16 06/24/16 22:59 06:59 14:59 Intake Total 4052.082 1017.298 Output Total 87 57 Balance 3965.082 960.298 Intake: IV 1475 1000 Ampicillin-Sulbactam 3 gm 100 In Sodium Chloride 0.9% 100 ml @ 100 mls/hr IVPB Q6HR [facility] Rx#:[id number] Sodium Chloride 0.9% 1, 125 000 ml @ 75 mls/hr IV . [id number] [facility] Rx#:[id number] Sodium Chloride 0.9% 1, 1000 1000 000 ml @ 999 mls/hr IV . Q1H1M [facility] Rx#:[id number] Vancomycin 1,500 mg In 250 Sodium Chloride 0.9% 250 ml @ 125 mls/hr IVPB Q8H [facility] Rx#:[id number] Amount of Fluid Infused ( 2300 ml) Intake, IV Titration 277.082 17.298 Amount Norepinephrine 16 mg In 3.724 8.976 Sodium Chloride 0.9% 250 ml @ Titrate IV .Q0M [facility] Rx#:[id number] Norepinephrine 4 mg In 254.000 Sodium Chloride 0.9% 250 ml @ Titrate IV .Q0M [facility] Rx#:[id number] Propofol 500 mg In Empty 12.238 Bag 1 bag @ Titrate IV . Q0M [facility] Rx#:[id number] Propofol 500 mg In Empty 7.120 8.322 Bag 1 bag @ Titrate IV . Q0M [facility] Rx#:[id number] Output: Urine 87 57 Other: Voiding Method Indwelling Catheter Weight 92.6 kg Gen: This is a 60-year-old male. He is intubated and on mechanical ventilation with oral gastric tube in place. He is sedated and appears to be comfortable. HEENT: Head is atraumatic, normocephalic. Pupils equal, round. Sclerae is anicteric. Conjunctiva slightly pale. Mucous membranes of the mouth are moist. ET and orogastric tube are in place. NECK: Supple. No JVD. No lymphadenopathy. No thyromegaly. LUNGS: Diffuse rhonchi. No intercostal retractions. HEART: Regular rate and rhythm. No murmur. ABDOMEN: Soft. Bowel sounds are present. No masses. No tenderness. EXTREMITIES: No pedal edema. No calf tenderness. NEUROLOGICAL: Patient is intubated. Results Results: Laboratory Results WBC 18.8 k/uL (3.8-10.6) H 06/24/16 04:33 RBC 4.35 m/uL (4.30-5.90) 06/24/16 04:33 Hgb 13.3 gm/dL (13.0-17.5) 06/24/16 04:33 Hct 44.2 % (39.0-53.0) 06/24/16 04:33 MCV 101.6 fL (80.0-100.0) H 06/24/16 04:33 MCH 30.5 pg (25.0-35.0) 06/24/16 04:33 MCHC 30.0 g/dL (31.0-37.0) L 06/24/16 04:33 RDW 13.8 % (11.5-15.5) 06/24/16 04:33 Plt Count 221 k/uL (150-450) 06/24/16 04:33 Neutrophils % (Manual) 79.5 % 06/24/16 04:33 Band Neutrophils % 1.5 % 06/24/16 04:33 Lymphocytes % (Manual) 3.0 % 06/24/16 04:33 Monocytes % (Manual) 16.0 % 06/24/16 04:33 Neutrophils # (Manual) 15.2 k/uL (1.3-7.7) H 06/24/16 04:33 Lymphocytes # (Manual) 0.6 k/uL (1.0-4.8) L 06/24/16 04:33 Monocytes # (Manual) 3.0 k/uL (0-1.0) H 06/24/16 04:33 Nucleated RBCs 0 /100 WBC (0-0) 06/24/16 04:33 Manual Slide Review Performed 06/24/16 04:33 Toxic Vacuolation Present 06/23/16 21:45 Large Platelets Present 06/24/16 04:33 Hypochromasia Marked 06/24/16 04:33 Poikilocytosis (manual Present 06/24/16 04:33 Macrocytosis Slight 06/24/16 04:33 PT 13.5 sec (9.0-12.0) H 06/24/16 04:33 INR 1.4 (<1.1) 06/24/16 04:33 APTT 25.8 sec (22.0-30.0) 06/24/16 04:33 Sample Site RRA 06/24/16 04:42 ABG pH 7.21 (7.35-7.45) L 06/24/16 04:42 ABG pCO2 63 mmHg (35-45) H 06/24/16 04:42 ABG pO2 117 mmHg (83-108) H 06/24/16 04:42 ABG HCO3 24 mmol/L (21-25) 06/24/16 04:42 ABG Total CO2 26 mmol/L (19-24) H 06/24/16 04:42 ABG O2 Saturation 97.4 % (94-97) H 06/24/16 04:42 ABG Base Excess -2.8 mmol/L 06/24/16 04:42 FiO2 60 % 06/24/16 04:42 Sodium 136 mmol/L (137-145) L 06/24/16 04:33 Potassium 5.8 mmol/L (3.5-5.1) H 06/24/16 04:33 Chloride 102 mmol/L (98-107) 06/24/16 04:33 Carbon Dioxide 20 mmol/L (22-30) L 06/24/16 04:33 Anion Gap 14 mmol/L 06/24/16 04:33 BUN 54 mg/dL (9-20) H 06/24/16 04:33 Creatinine 1.40 mg/dL (0.66-1.25) H 06/24/16 04:33 Est GFR (MDRD) Af Amer >60 (>60 ml/min/1.73 sqM) 06/24/16 04:33 Est GFR (MDRD) Non-Af 52 (>60 ml/min/1.73 sqM) 06/24/16 04:33 Glucose 316 mg/dL (74-99) H 06/24/16 04:33 POC Glucose (mg/dL) 248 mg/dL (75-99) H 06/24/16 14:53 POC Glu [employer]er ID Gail Arvizu 06/24/16 14:[address] Glu mg/dL 163 mg/dL 06/24/16 04:33 Hemoglobin A1c 7.3 % (4.2-6.1) H 06/24/16 04:33 Plasma Lactic Acid Stone 1.6 mmol/L (0.7-2.0) 06/24/16 06:24 Calcium 8.6 mg/dL (8.4-10.2) 06/24/16 04:33 Phosphorus 5.7 mg/dL (2.5-4.5) H 06/24/16 04:33 Magnesium 1.9 mg/dL (1.6-2.3) 06/24/16 04:33 Total Bilirubin 1.5 mg/dL (0.2-1.3) H 06/23/16 21:45 AST 271 U/L (17-59) H 06/23/16 21:45 ALT 252 U/L (21-72) H 06/23/16 21:45 Alkaline Phosphatase 131 U/L (38-126) H 06/23/16 21:45 Ammonia 11 umol/L (<30) 06/23/16 21:45 Troponin I <0.012 ng/mL (0.000-0.034) 06/23/16 21:45 Total Protein 6.2 g/dL (6.3-8.2) L 06/23/16 21:45 Albumin 3.2 g/dL (3.5-5.0) L 06/23/16 21:45 Urine Color [place] 06/24/16 03:20 Urine Appearance Turbid (Clear) 06/24/16 03:20 Urine pH 5.5 (5.0-8.0) 06/24/16 03:20 Ur Specific [place] 1.041 (1.001-1.035) H 06/24/16 03:20 Urine Protein 2+ (Negative) H 06/24/16 03:20 Urine Glucose (UA) Trace (Negative) H 06/24/16 03:20 Urine Ketones Negative (Negative) 06/24/16 03:20 Urine Blood Negative (Negative) 06/24/16 03:20 Urine Nitrate Negative (Negative) 06/24/16 03:20 Urine Bilirubin 1+ (Negative) H 06/24/16 03:20 Urine Urobilinogen 3.0 mg/dL (<2.0) 06/24/16 03:20 Ur Leukocyte Esterase Negative (Negative) 06/24/16 03:20 Urine RBC 8 /hpf (0-5) H 06/24/16 03:20 Urine WBC 6 /hpf (0-5) H 06/24/16 03:20 Ur Squamous Epith Cells 5 /hpf (0-4) H 06/24/16 03:20 Amorphous Sediment Rare /hpf (None) H 06/24/16 03:20 Urine Bacteria Rare /hpf (None) H 06/24/16 03:20 Hyaline Casts 26 /lpf (0-2) H 06/24/16 03:20 Urine Mucus Many /hpf (None) H 06/24/16 03:20 Urine Opiates Screen Detected (NotDetected) H 06/23/16 22:05 Ur Oxycodone Screen Not Detected (NotDetected) 06/23/16 22:05 Urine Methadone Screen Not Detected (NotDetected) 06/23/16 22:05 Ur Propoxyphene Screen Not Detected (NotDetected) 06/23/16 22:05 Ur Barbiturates Screen Not Detected (NotDetected) 06/23/16 22:05 U Tricyclic Antidepress Not Detected (NotDetected) 06/23/16 22:05 Ur Phencyclidine Scrn Not Detected (NotDetected) 06/23/16 22:05 Ur Amphetamines Screen Not Detected (NotDetected) 06/23/16 22:05 U Methamphetamines Scrn Not Detected (NotDetected) 06/23/16 22:05 U Benzodiazepines Scrn Detected (NotDetected) H 06/23/16 22:05 Urine Cocaine Screen Not Detected (NotDetected) 06/23/16 22:05 U Marijuana (THC) Screen Not Detected (NotDetected) 06/23/16 22:05 Serum Alcohol <10 mg/dL 06/23/16 21:45 Hepatitis A IgM Ab NEGATIVE 06/24/16 04:33 Hep Bs Antigen Negative 06/24/16 04:33 Hep B Core IgM Ab NEGATIVE 06/24/16 04:33 Hep C IgG Ab Negative (Negative) 06/24/16 04:33 CBC & Chem 7: 06/24/16 04:33 06/24/16 04:33 Labs: Abnormal Lab Results - Last 24 Hours (Table) 06/23/16 06/24/16 06/24/16 Range/Units 22:40 03:14 03:20 WBC (3.8-10.6) k/uL MCV (80.0-100.0) fL MCHC (31.0-37.0) g/dL Neutrophils # (Manual) (1.3-7.7) k/uL Lymphocytes # (Manual) (1.0-4.8) k/uL Monocytes # (Manual) (0-1.0) k/uL PT (9.0-12.0) sec ABG pH 7.23 L (7.35-7.45) ABG pCO2 70 H* (35-45) mmHg ABG pO2 279 H (83-108) mmHg ABG HCO3 28 H (21-25) mmol/L ABG Total CO2 30 H (19-24) mmol/L ABG O2 Saturation 100.0 H (94-97) % Sodium (137-145) mmol/L Potassium (3.5-5.1) mmol/L Carbon Dioxide (22-30) mmol/L BUN (9-20) mg/dL Creatinine (0.66-1.25) mg/dL Glucose (74-99) mg/dL POC Glucose (mg/dL) 321 H (75-99) mg/dL Phosphorus (2.5-4.5) mg/dL Ur Specific [place] 1.041 H (1.001-1.035) Urine Protein 2+ H (Negative) Urine Glucose (UA) Trace H (Negative) Urine Bilirubin 1+ H (Negative) Urine RBC 8 H (0-5) /hpf Urine WBC 6 H (0-5) /hpf Ur Squamous Epith Cells 5 H (0-4) /hpf Amorphous Sediment Rare H (None) /hpf Urine Bacteria Rare H (None) /hpf Hyaline Casts 26 H (0-2) /lpf Urine Mucus Many H (None) /hpf 06/24/16 06/24/16 06/24/16 Range/Units 04:33 04:33 04:33 WBC 18.8 H (3.8-10.6) k/uL MCV 101.6 H (80.0-100.0) fL MCHC 30.0 L (31.0-37.0) g/dL Neutrophils # (Manual) 15.2 H (1.3-7.7) k/uL Lymphocytes # (Manual) 0.6 L (1.0-4.8) k/uL Monocytes # (Manual) 3.0 H (0-1.0) k/uL PT 13.5 H (9.0-12.0) sec ABG pH (7.35-7.45) ABG pCO2 (35-45) mmHg ABG pO2 (83-108) mmHg ABG HCO3 (21-25) mmol/L ABG Total CO2 (19-24) mmol/L ABG O2 Saturation (94-97) % Sodium 136 L (137-145) mmol/L Potassium 5.8 H (3.5-5.1) mmol/L Carbon Dioxide 20 L (22-30) mmol/L BUN 54 H (9-20) mg/dL Creatinine 1.40 H (0.66-1.25) mg/dL Glucose 316 H (74-99) mg/dL POC Glucose (mg/dL) (75-99) mg/dL Phosphorus 5.7 H (2.5-4.5) mg/dL Ur Specific [place] (1.001-1.035) Urine Protein (Negative) Urine Glucose (UA) (Negative) Urine Bilirubin (Negative) Urine RBC (0-5) /hpf Urine WBC (0-5) /hpf Ur Squamous Epith Cells (0-4) /hpf Amorphous Sediment (None) /hpf Urine Bacteria (None) /hpf Hyaline Casts (0-2) /lpf Urine Mucus (None) /hpf 06/24/16 06/24/16 06/24/16 Range/Units 04:42 06:04 08:53 WBC (3.8-10.6) k/uL MCV (80.0-100.0) fL MCHC (31.0-37.0) g/dL Neutrophils # (Manual) (1.3-7.7) k/uL Lymphocytes # (Manual) (1.0-4.8) k/uL Monocytes # (Manual) (0-1.0) k/uL PT (9.0-12.0) sec ABG pH 7.21 L (7.35-7.45) ABG pCO2 63 H (35-45) mmHg ABG pO2 117 H (83-108) mmHg ABG HCO3 (21-25) mmol/L ABG Total CO2 26 H (19-24) mmol/L ABG O2 Saturation 97.4 H (94-97) % Sodium (137-145) mmol/L Potassium (3.5-5.1) mmol/L Carbon Dioxide (22-30) mmol/L BUN (9-20) mg/dL Creatinine (0.66-1.25) mg/dL Glucose (74-99) mg/dL POC Glucose (mg/dL) 321 H 306 H (75-99) mg/dL Phosphorus (2.5-4.5) mg/dL Ur Specific [place] (1.001-1.035) Urine Protein (Negative) Urine Glucose (UA) (Negative) Urine Bilirubin (Negative) Urine RBC (0-5) /hpf Urine WBC (0-5) /hpf Ur Squamous Epith Cells (0-4) /hpf Amorphous Sediment (None) /hpf Urine Bacteria (None) /hpf Hyaline Casts (0-2) /lpf Urine Mucus (None) /hpf Assessment and Plan Plan: This is a 60-year-old male presented to the hospital with acute hypoxic respiratory failure requiring intubation with signs of sepsis with leukocytosis and hypotension requiring vasopressors. Liver function tests are elevated as well as liver abscess possible on CAT scan with history of alcohol abuse. Also noted right lower lobe infiltrate with possible aspiration pneumonia. Patient will be switched from Unasyn to Zosyn and vancomycin will be continued. Multiple consultants in place. Continue supportive care. Further recommendations as patient progresses. The above dictated assessment and findings were discussed with Dr. oBcanegra. The impression and plan of care have been directed as dictated. Jenna Cadena nurse practitioner acting as scribe for Dr. Bocanegra. Time with Patient: Greater than 30
[2016-06-24] MEDS ORDERED: PIPERACILLIN-TAZOBACTAM 3.375 GM in DEXTROSE/WATER 1 50ML.BAG IVPB SCH (16:00)
--- NOTE | 2016-06-24 16:46 | HP ---
DATE OF ADMISSION: CHIEF COMPLAINT: Abdominal pain. HISTORY OF PRESENT ILLNESS: Mr. Heck is a 60-year-old male with a known history of hypertension, diabetes, type 1, COPD, on p.r.n. home oxygen, alcohol abuse and nicotine addiction, who came to the hospital with complaints of abdominal pain, mainly right upper quadrant and rib cage pain. Apparently patient has been sickly for the last 4 days and was having flu at that time and was not eating well and not feeling well. Patient came to the hospital with complaints of right upper quadrant pain and along with shortness of breath. Patient does have multiple medical problems, including GERD, hyperlipidemia, obstructive sleep apnea, anxiety and depression. Patient was previously admitted to the hospital in April 2016 with acute alcohol intoxication and withdrawal symptoms at that time. Patient apparently has been cutting down alcohol use since that time. Patient initially in the ER was found to be cyanotic and was subsequently intubated and transferred to ICU. Currently patient is still hypotensive, requiring pressor support, and also on mechanical ventilation and sedated. CT of the abdomen and pelvis showed hypodense enhancing mass measuring 9.8 x 9.6 cm in the left hepatic lobe; may represent a benign process, possible abscess collection; however, metastatic disease cannot be excluded. Patient does have multiple gallstones and also chronic diverticulosis changes noted in the colon. CT of the head showed no acute intracranial process. Liver ultrasound on previous admission showed fatty infiltration versus hepatocellular disease and cholelithiasis. Currently patient could not provide any history. Otherwise, patient does not have any fever. No recent travel or sick contacts at home. Complete review of systems could not be obtained from the patient. Past medical history includes: 1. Atrial fibrillation history. 2. CHF with normal ejection fraction. 3. COPD, on home oxygen. 4. Insulin-dependent diabetes type 1. 5. GERD. 6. Hypertension. 7. Hyperlipidemia. 8. Obstructive sleep apnea, on CPAP at home. 9. Chronic hypoxic respiratory failure secondary to COPD. 10. Alcohol abuse. 11. Paroxysmal atrial fibrillation. 12. History of diverticulosis. 13. Bilateral diabetic neuropathy of the feet. PAST SURGICAL HISTORY: 1. Cardiac catheterization. 2. Colonoscopy x2. 3. Eyelid surgery bilaterally. 4. Cardiac catheterization without intervention. PSYCHOSOCIAL HISTORY: Anxiety, depression and panic disorder. SOCIAL HISTORY: Patient is currently an everyday smoker; has been smoking 1 pack per day for the past 40 years. Patient is an alcoholic. He drinks whiskey every day and a lot of it. His last drink was earlier this morning. Patient does have previous history of polysubstance abuse. FAMILY HISTORY: Mother had hypothyroidism. Father of diverticulitis, peritonitis at the age of 34 years. Home medications include: 1. Symbicort. 2. Novolin-N. 3. Combivent. 4. Multivitamins. 5. Nitroglycerin sublingually. 6. Biotin. 7. Ciprofloxacin. 8. Folic acid. 9. Magnesium gluconate. 10. Metoprolol. 11. Pregabalin. 12. Flomax. 13. Vitamin B12. 14. Vitamin B6. 15. Vitamin K. 16. Prednisone taper as per the previous admission. ALLERGIES include: 1. CODEINE. 2. OPIOIDS. 3. MEPERIDINE. 4. METHADONE. PHYSICAL EXAMINATION: A 60-year-old male lying in the bed, currently sedated and intubated. Responds to verbal commands. Cannot provide any history. VITALS ON ADMISSION: Blood pressure 112/58, pulse 49, respiration 20, temperature afebrile, pulse ox 97% on mechanical ventilation. Currently blood pressure is 90/52, pulse is 97, respirations 20, temperature afebrile, pulse ox 95% on 40% FiO2. HEENT: Atraumatic, normocephalic. Neck is supple. No JVD. Endotracheal tube is in place. Trachea midline. HEART: S1, S2 heard. No murmurs. No gallop. LUNGS: Bilateral air entry is present. No wheezing. ( ) breath sounds bilateral basally. ABDOMEN: Soft, nontender, nondistended. No guarding or rigidity. CEMENTER HAND: Currently patient is seated and intubated. No focal deficit noted. EXTREMITIES: No edema. Pulses palpable bilaterally. No clubbing or cyanosis. PSYCHIATRIC: Could not be assessed. LABORATORY DATA: WBC 17.4, hemoglobin 14.9, platelets 164. INR 1.4. Sodium 139, potassium 5.3, chloride 94. Bicarb is 29. BUN 48, creatinine 0.8. Lactic acid 2.8. Anion gap 16. Bilirubin 1.5, AST 271. ALT is 252, alkaline phosphatase 131. Albumin 3.2. UDS is positive for opiates and benzodiazepines. Serum alcohol level is less than 10. ABGs morning showed pH of 7.21, pCO2 of 63, pO2 of 117. Potassium level is elevated at 5.8. BUN 54, creatinine 1.4. Chest x-ray on admission: no focal pneumonia noted. CT of the abdomen and pelvis report reviewed. CT of the brain: no acute process. Chest x-ray this morning showed developing right basilar infiltrate and a small right effusion and mild cardiomegaly. IMPRESSION: 1. Acute hypoxic respiratory failure secondary to pneumonia, right lower lobe. 2. Left lobe liver abscess and possible mass versus neoplastic process. 3. Acute metabolic encephalopathy secondary to infection. 4. Sepsis with septic shock secondary to pneumonia and possible liver abscess. 5. History of alcohol abuse, currently actively drinking every day. 6. Nicotine addiction. 7. Insulin-dependent diabetes, type 1. 8. Chronic obstructive pulmonary disease, not in exacerbation. 9. Obstructive sleep apnea. 10. Hypertension. 11. Chronic cholelithiasis. 12. History of atrial fibrillation. Rate is controlled now. Not on anticoagulation. Paroxysmal. 13. Hyperlipidemia. DISCUSSION AND PLAN: Patient will be continued on antibiotics in the form of vancomycin and Unasyn. Continue the breathing treatments, currently on mechanical ventilation. Continue with pressor support. Patient is being followed by Pulmonary, GI, and General Surgery has been consulted as well. Patient does require liver biopsy once clinically stable. Will continue the current management. Further recommendations based on the clinical course. Prognosis is guarded. I did discuss with the family in detail. BERNADINE
--- NOTE | 2016-06-24 19:36 | PCN ---
DATE OF PROCEDURE: PROCEDURE PERFORMED: Left internal jugular triple-lumen catheter. PREOPERATIVE DIAGNOSIS: Administration of fluids and pressors. POSTOPERATIVE DIAGNOSIS: Administration of fluids and pressors. TRIPLE LUMEN CATHETER PLACEMENT Indication: Hemodynamic monitoring/Intravenous access. A time-out was completed verifying correct patient, procedure, site, positioning, and implant(s) or special equipment if applicable. The patient was placed in a dependent position appropriate for triple lumen catheter placement based on the vein to be cannulated. The patient's left neck was prepped and draped in sterile fashion. 1% Lidocaine was used to anesthetize the surrounding skin area. A triple lumen 9F Cordis catheter was introduced into the internal jugular vein using Seldinger technique. The catheter was threaded smoothly over the guide wire and appropriate blood return was obtained. Each lumen of the catheter was evacuated of air and flushed with sterile saline. The catheter was then sutured in place to the skin and a sterile dressing applied. Perfusion to the extremity distal to the point of catheter insertion was checked and found to be adequate. There was no immediate complications. We used full barrier precautions. The site was left internal jugular vein. Posterior approach. There was no immediate complication. There was good blood return from all 3 ports. The patient tolerated the procedure well. Catheter was sutured in place. Sterile dressing was applied. Chest x-ray was ordered. We used a catheter for CVP monitoring as well.
--- NOTE | 2016-06-24 19:41 | PCN ---
DATE OF PROCEDURE: 06/24/2016 ARTERIAL LINE PLACEMENT Indication: Hemodynamic monitoring. A time-out was completed verifying correct patient, procedure, site, positioning, and implant(s) or special equipment if applicable. Martin's test was performed to ensure adequate perfusion. The patient's right wrist was prepped and draped in sterile fashion. 1% Lidocaine was used to anesthetize the area. An 18G Arrow arterial line was introduced into the right radial artery. The catheter was threaded over the guide wire and the needle was removed with appropriate pulsatile blood return. Blood loss was minimal. The catheter was then sutured in place to the skin and a sterile dressing applied. Perfusion to the extremity distal to the point of catheter insertion was checked and found to be adequate. The patient tolerated the procedure well and there were no immediate complications.
--- NOTE | 2016-06-24 20:12 | P.PN ---
Progress Note - Text Patient seen and evaluated. Please see dictated consult. Family at bedside. Care plan discussed. Patient is pending interventional radiology drainage and biopsy of the liver. No acute surgical intervention at this time. As he has hepatic lesions, any need for surgical resection best performed at a hepatobiliary center which was also described with his family. We will follow.
[2016-06-24] MEDS: PIPERACILLIN-TAZOBACTAM 3.375 GM in DEXTROSE/WATER 1 50ML.BAG IVPB SCH (20:37)
[2016-06-24 20:45] LABS: Glucose,Whole Blood 207 mg/dL (75-99)
[2016-06-24] MEDS ORDERED: INSULIN NPH 300 UNIT/3 ML VIAL SQ SCH (21:00)
[2016-06-25] MEDS: HEPARIN SODIUM,PORCINE 5,000 UNIT/ML 1 ML VIAL SQ SCH ×2 (00:04→08:14)
[2016-06-25] MEDS: NOREPINEPHRINE 16 MG in SODIUM CHLORIDE 0.9% 250 ML IV SCH ×2 (00:04→10:54)
[2016-06-25 00:07] LABS: Glucose,Whole Blood 219 mg/dL (75-99)
[2016-06-25] MEDS: INSULIN LISPRO (humaLOG) 300 UNIT/3 ML VIAL SQ SCH ×3 (00:07→08:14)
[2016-06-25] MEDS: PROPOFOL 500 MG in EMPTY BAG 1 BAG IV SCH ×3 (01:47→10:53)
[2016-06-25] MEDS: PIPERACILLIN-TAZOBACTAM 3.375 GM in DEXTROSE/WATER 1 50ML.BAG IVPB SCH (03:40)
[2016-06-25 04:58] LABS: Glucose,Whole Blood 220 mg/dL (75-99)
[2016-06-25 05:08] LABS: Aty Lym Flag Moderate; CH 30.8; HCT 42.8 % (39.0-53.0); HGB 12.6 gm/dL (13.0-17.5); Hypochromasia Marked; Immature Gran Flag Marked; MCH 30.4 pg (25.0-35.0); MCHC 29.5 g/dL (31.0-37.0); MCV 103.2 fL (80.0-100.0); Macrocytosis Slight; Mean Platelet Volume 10.1; RBC 4.15 m/uL (4.30-5.90); RDW 14.1 % (11.5-15.5); WBC 17.6 k/uL (3.8-10.6); WBC (Perox) 18.24
[2016-06-25 05:16] LABS: ABG HCO3 25 mmol/L (21-25); ABG PCO2 59 mmHg (35-45); ABG PH 7.25 (7.35-7.45); ABG PO2 75 mmHg (83-108); ABG TCO2 27 mmol/L (19-24)
[2016-06-25 05:17] LABS: ABG Base Excess -1.4 mmol/L
[2016-06-25 05:18] LABS: Anion Gap 9 mmol/L; Blood Urea Nitrogen 59 mg/dL (9-20); Calcium 8.5 mg/dL (8.4-10.2); Carbon Dioxide 23 mmol/L (22-30); Chloride 111 mmol/L (98-107); Glucose 219 mg/dL (74-99); Magnesium 2.2 mg/dL (1.6-2.3); Non-African American GFR(MDRD) >60 (>60 ml/min/1.73 sqM); Phosphorous 4.1 mg/dL (2.5-4.5); Sodium 143 mmol/L (137-145)
[2016-06-25 05:26] LABS: Add Differential Manual Differential
[2016-06-25 05:30] LABS: Band Neutrophils % 19.5 %; Metamyelocytes % 1.5 %; Nucleated Red Blood Cells 0 /100 WBC (0-0); Total Cells Counted 200
[2016-06-25 05:31] LABS: Large Platelets Present; Manual Review Performed; Polychromasia Present
[2016-06-25] MEDS: SODIUM CHLORIDE 0.9% 1,000 ML IV SCH (06:59)
[2016-06-25] MEDS: LEVALBUTEROL NEB (CONC) 1.25 MG/0.5 ML AMP INHALATION SCH ×2 (07:18→11:59)
[2016-06-25] MEDS: IPRATROPIUM 0.5 MG/2.5 ML NEBU INHALATION SCH ×2 (07:18→11:59)
[2016-06-25 07:53] LABS: Glucose,Whole Blood 256 mg/dL (75-99)
--- NOTE | 2016-06-25 08:06 | XR ---
EXAMINATION TYPE: XR chest 1V portable DATE OF EXAM: 06/25/2016 6:51 AM CLINICAL HISTORY: Difficulty breathing progress study. TECHNIQUE: Single AP portable semiupright view of the chest is obtained. COMPARISON: Chest x-ray from one day earlier FINDINGS: An endotracheal tube, orogastric tube, and left internal jugular central venous catheter a re stable in appearance. There is persistent right basilar opacity consistent with infiltrate and/or atelectasis and possible small right pleural effusion. Left lung remains clear. Cardiac silhouette si ze is stable and mildly enlarged. Osseous structures are intact. IMPRESSION: Overall stable findings, mild cardiomegaly with persistent right basilar atelectasis an d/or infiltrate and probable small right pleural effusion.
[2016-06-25] MEDS: CHLORHEXIDINE GLUCONATE 15 ML CUP MUCOUS MEM SCH (08:14)
[2016-06-25] MEDS: PANTOPRAZOLE 40 MG/10 ML VIAL IVP SCH (08:14)
--- NOTE | 2016-06-25 08:15 | P.GSCN ---
History of Present Illness Consult date: 06/24/16 Reason for Consult: Abdominal pain Requesting physician: Denver Farmer History of present illness: The patient is a 60-year-old gentleman who is in intensive care unit surrounded by family members currently on dopamine including intubated. He was admitted secondary to upper quadrant abdominal pain including sepsis and mental status changes. He has personal history of alcoholism and his history is obtained by his family is at bedside. Separately she has had long-standing intermittent abdominal pain for over one year. He had previous workup. Has a pertinent history of recent sepsis with pneumonia within the last 6 months. He has multiple comorbidities including insulin-dependent diabetes. He has a history of tobacco abuse. Since his admission, he has new finding of a large hepatic mass along the left lobe of the liver over 9 cm with questionable findings of abscess versus mass identified. Separately he has history of gallbladder stones versus polyps. As a result of these findings, Gen. surgery is consulted. Review of Systems (Information obtained via medical records and family as patient is intubated.) CONSTITUTIONAL: Has fevers. No recent weight gain. History of weight loss. HEENT: No trouble with vision, hearing or nosebleeds. LYMPHATIC: No reports of lymphoma. ENDOCRINE: Has thyroid disorders. Has blood sugar glucose intolerance and on insulin. RESPIRATORY: Has past pneumonia. Has COPD. Has sleep apnea. CARDIOVASCULAR: Has atrial fibrillation. No recent heart attacks. GASTROINTESTINAL: Has GERD. No recent bright red blood per rectum. GENITOURINARY: No blood in urine or increased urinary frequency. MUSCULOSKELETAL: Has history of back pain, stiffness or joint arthritis. NEUROLOGIC: No seizure disorders or migranes. PSYCHIATRIC: Has depression, PTSD, anxiety with recent change in mental status. HEMATOLOGIC: No abnormal bleeding or bruising. Past Medical History Past Medical History: Atrial Fibrillation, Heart Failure, COPD, Diabetes Mellitus, GERD/Reflux, Hyperlipidemia, Hypertension, Sleep Apnea/CPAP/BIPAP Additional Past Medical History / Comment(s): Other HX: Chronic hypoxic respiratory failure and the patient OXYGEN dependent between 3-1/2-4 L prn and at night, IDDM type II, paroxysmal AFIB, alcoholism, diverticulosis, obstuctive sleep apnea but no Cpap since wt loss, sinusitis, neuropathy bilateral feet. History of Any Multi-Drug Resistant Organisms: None Reported Past Surgical History: Heart Catheterization Additional Past Surgical History / Comment(s): colonoscopy x 2, eyelid surgery bilaterally, cardiac cath without intervention. Past Anesthesia/Blood Transfusion Reactions: Postoperative Nausea & Vomiting ( PONV) Additional Past Anesthesia/Blood Transfusion Reaction / Comm: Pt states he has had PONV with gas only. Past Psychological History: Anxiety, Depression, Panic Disorder Additional Psychological History / Comment(s): He uses no assistive device. He drives. Smoking Status: Current every day smoker Past Alcohol Use History: Abuse, Daily Additional Past Alcohol Use History / Comment(s): HAS BEEN SMOKING 1 PPD FOR PAST 40 YEARS. Pt states he is an alcoholic. He drinks whiskey every day " alot of it." He last drank at earlier this morning today. He has hx of DTs. Past Drug Use History: Unable to Obtain Additional Drug Use History / Comment(s): Pt states in the s and s he used a variety of drugs (unable to state which ones) but has not used any since. - Past Family History Mother Family Medical History: Thyroid Disorder Additional Family Medical History / Comment(s): Mother is 86 yrs. old. Father Additional Family Medical History / Comment(s): Father of diverticulitis, peritonitis at the age of 35yrs. Medications and Allergies Home Medications Medication Instructions Recorded Confirmed Type Budesonide-Formot 160-4.5 Mcg 2 puff INHALATION RT-BID 11/29/13 06/23/16 History [Symbicort 160-4.5 Mcg Inhaler] Insulin NPH Human Isophane 50 unit SQ AC-BRKFST PRN 11/29/13 06/24/16 History [NovoLIN N] Insulin NPH Human Isophane 45 unit SQ AC-SUPPER 03/18/15 06/24/16 History [NovoLIN N] Ipratropium/Albuterol Sulfate 1 puff INHALATION RT-TID 02/04/16 06/23/16 History [Combivent Respimat Inhaler] Multivitamins, Thera [Multivitamin] 1 tab PO DAILY 02/04/16 06/23/16 History Nitroglycerin Sl Tabs [Nitrostat] 0.4 mg SUBLINGUAL Q5M PRN 02/04/16 06/23/16 History Biotin 1,000 mcg PO DAILY 06/23/16 06/23/16 History Ciprofloxacin HCl [Cipro] 500 mg PO Q12HR 06/23/16 06/23/16 History Folic Acid 0.4 mg PO DAILY 06/23/16 06/23/16 History Magnesium Gluconate [Magonate] 500 mg PO DAILY 06/23/16 06/23/16 History Metoprolol Tartrate [Lopressor] 12.5 mg PO BID 06/23/16 06/23/16 History Pregabalin [Lyrica] 50 mg PO TID 06/23/16 06/23/16 History Tamsulosin [Flomax] 0.4 mg PO HS 06/23/16 06/23/16 History Vitamin B-12 1,000 mcg PO DAILY 06/23/16 06/23/16 History Vitamin B-6 100 mcg PO DAILY 06/23/16 06/23/16 History Vitamin K 100 mcg PO DAILY 06/23/16 06/23/16 History predniSONE See Taper PO DAILY 06/23/16 06/23/16 History Allergies Allergy/AdvReac Type Severity Reaction Status Date / Time codeine AdvReac Nausea & Verified 06/23/16 21:05 Vomiting Opioids - Morphine Analogues AdvReac Nausea & Verified 06/23/16 21:05 Vomiting Opioids-Meperidine and AdvReac Nausea & Verified 06/23/16 21:05 Related Vomiting [Opioids-Meperidine & Related] Opioids-Methadone and Related AdvReac Nausea & Verified 06/23/16 21:05 [Opioids-Methadone & Related] Vomiting Surgical - Exam Vital Signs Temp Pulse Resp BP Pulse Ox 98.3 F 49 L 20 112/58 97 06/23/16 20:46 06/23/16 20:46 06/23/16 20:46 06/23/16 20:46 06/23/16 20:46 GENERAL: Well developed. Intubated and sedated. HEENT: No sclera icterus. Moist buccal mucosa. Head is atraumatic, normocephalic. No nasal drainage. NECK: Midline without lymphadenopathy. CHEST: Mechanically ventilated and on full support. Equal bilateral excursions. CARDIOVASCULAR: Irregular rate and irregular rhythm. Tachycardic. ABDOMEN: Soft. Nondistended. Hepatomegaly. No peritonitis. MUSCULOSKELETAL: No clubbing, cyanosis or edema. NEUROLOGIC: Patient is sedated. No focal signs. PSYCH: Sedated. Results - Labs 06/25/16 05:01 06/25/16 05:01 Abnormal Lab Results - Last 24 Hours (Table) 06/23/16 06/24/16 06/24/16 Range/Units 22:40 03:14 03:20 WBC (3.8-10.6) k/uL MCV (80.0-100.0) fL MCHC (31.0-37.0) g/dL Neutrophils # (Manual) (1.3-7.7) k/uL Lymphocytes # (Manual) (1.0-4.8) k/uL Monocytes # (Manual) (0-1.0) k/uL PT (9.0-12.0) sec ABG pH 7.23 L (7.35-7.45) ABG pCO2 70 H* (35-45) mmHg ABG pO2 279 H (83-108) mmHg ABG HCO3 28 H (21-25) mmol/L ABG Total CO2 30 H (19-24) mmol/L ABG O2 Saturation 100.0 H (94-97) % Sodium (137-145) mmol/L Potassium (3.5-5.1) mmol/L Carbon Dioxide (22-30) mmol/L BUN (9-20) mg/dL Creatinine (0.66-1.25) mg/dL Glucose (74-99) mg/dL POC Glucose (mg/dL) 321 H (75-99) mg/dL Hemoglobin A1c (4.2-6.1) % Phosphorus (2.5-4.5) mg/dL Ur Specific Rampart 1.041 H (1.001-1.035) Urine Protein 2+ H (Negative) Urine Glucose (UA) Trace H (Negative) Urine Bilirubin 1+ H (Negative) Urine RBC 8 H (0-5) /hpf Urine WBC 6 H (0-5) /hpf Ur Squamous Epith Cells 5 H (0-4) /hpf Amorphous Sediment Rare H (None) /hpf Urine Bacteria Rare H (None) /hpf Hyaline Casts 26 H (0-2) /lpf Urine Mucus Many H (None) /hpf 06/24/16 06/24/16 06/24/16 Range/Units 04:33 04:33 04:33 WBC 18.8 H (3.8-10.6) k/uL MCV 101.6 H (80.0-100.0) fL MCHC 30.0 L (31.0-37.0) g/dL Neutrophils # (Manual) 15.2 H (1.3-7.7) k/uL Lymphocytes # (Manual) 0.6 L (1.0-4.8) k/uL Monocytes # (Manual) 3.0 H (0-1.0) k/uL PT 13.5 H (9.0-12.0) sec ABG pH (7.35-7.45) ABG pCO2 (35-45) mmHg ABG pO2 (83-108) mmHg ABG HCO3 (21-25) mmol/L ABG Total CO2 (19-24) mmol/L ABG O2 Saturation (94-97) % Sodium 136 L (137-145) mmol/L Potassium 5.8 H (3.5-5.1) mmol/L Carbon Dioxide 20 L (22-30) mmol/L BUN 54 H (9-20) mg/dL Creatinine 1.40 H (0.66-1.25) mg/dL Glucose 316 H (74-99) mg/dL POC Glucose (mg/dL) (75-99) mg/dL Hemoglobin A1c (4.2-6.1) % Phosphorus 5.7 H (2.5-4.5) mg/dL Ur Specific Rampart (1.001-1.035) Urine Protein (Negative) Urine Glucose (UA) (Negative) Urine Bilirubin (Negative) Urine RBC (0-5) /hpf Urine WBC (0-5) /hpf Ur Squamous Epith Cells (0-4) /hpf Amorphous Sediment (None) /hpf Urine Bacteria (None) /hpf Hyaline Casts (0-2) /lpf Urine Mucus (None) /hpf 06/24/16 06/24/16 06/24/16 Range/Units 04:33 04:42 06:04 WBC (3.8-10.6) k/uL MCV (80.0-100.0) fL MCHC (31.0-37.0) g/dL Neutrophils # (Manual) (1.3-7.7) k/uL Lymphocytes # (Manual) (1.0-4.8) k/uL Monocytes # (Manual) (0-1.0) k/uL PT (9.0-12.0) sec ABG pH 7.21 L (7.35-7.45) ABG pCO2 63 H (35-45) mmHg ABG pO2 117 H (83-108) mmHg ABG HCO3 (21-25) mmol/L ABG Total CO2 26 H (19-24) mmol/L ABG O2 Saturation 97.4 H (94-97) % Sodium (137-145) mmol/L Potassium (3.5-5.1) mmol/L Carbon Dioxide (22-30) mmol/L BUN (9-20) mg/dL Creatinine (0.66-1.25) mg/dL Glucose (74-99) mg/dL POC Glucose (mg/dL) 321 H (75-99) mg/dL Hemoglobin A1c 7.3 H (4.2-6.1) % Phosphorus (2.5-4.5) mg/dL Ur Specific Rampart (1.001-1.035) Urine Protein (Negative) Urine Glucose (UA) (Negative) Urine Bilirubin (Negative) Urine RBC (0-5) /hpf Urine WBC (0-5) /hpf Ur Squamous Epith Cells (0-4) /hpf Amorphous Sediment (None) /hpf Urine Bacteria (None) /hpf Hyaline Casts (0-2) /lpf Urine Mucus (None) /hpf 06/24/16 06/24/16 Range/Units 08:53 14:53 WBC (3.8-10.6) k/uL MCV (80.0-100.0) fL MCHC (31.0-37.0) g/dL Neutrophils # (Manual) (1.3-7.7) k/uL Lymphocytes # (Manual) (1.0-4.8) k/uL Monocytes # (Manual) (0-1.0) k/uL PT (9.0-12.0) sec ABG pH (7.35-7.45) ABG pCO2 (35-45) mmHg ABG pO2 (83-108) mmHg ABG HCO3 (21-25) mmol/L ABG Total CO2 (19-24) mmol/L ABG O2 Saturation (94-97) % Sodium (137-145) mmol/L Potassium (3.5-5.1) mmol/L Carbon Dioxide (22-30) mmol/L BUN (9-20) mg/dL Creatinine (0.66-1.25) mg/dL Glucose (74-99) mg/dL POC Glucose (mg/dL) 306 H 248 H (75-99) mg/dL Hemoglobin A1c (4.2-6.1) % Phosphorus (2.5-4.5) mg/dL Ur Specific Rampart (1.001-1.035) Urine Protein (Negative) Urine Glucose (UA) (Negative) Urine Bilirubin (Negative) Urine RBC (0-5) /hpf Urine WBC (0-5) /hpf Ur Squamous Epith Cells (0-4) /hpf Amorphous Sediment (None) /hpf Urine Bacteria (None) /hpf Hyaline Casts (0-2) /lpf Urine Mucus (None) /hpf Microbiology - Last 24 Hours (Table) 06/24/16 03:20 Urine Culture - Preliminary Urine,Catheterized Diabetes panel 06/24/16 06/24/16 Range/Units 04:33 04:33 Sodium 136 L (137-145) mmol/L Potassium 5.8 H (3.5-5.1) mmol/L Chloride 102 (98-107) mmol/L Carbon Dioxide 20 L (22-30) mmol/L BUN 54 H (9-20) mg/dL Creatinine 1.40 H (0.66-1.25) mg/dL Glucose 316 H (74-99) mg/dL Hemoglobin A1c 7.3 H (4.2-6.1) % Calcium 8.6 (8.4-10.2) mg/dL Calcium panel 06/24/16 Range/Units 04:33 Calcium 8.6 (8.4-10.2) mg/dL Phosphorus 5.7 H (2.5-4.5) mg/dL Pituitary panel 06/24/16 Range/Units 04:33 Sodium 136 L (137-145) mmol/L Potassium 5.8 H (3.5-5.1) mmol/L Chloride 102 (98-107) mmol/L Carbon Dioxide 20 L (22-30) mmol/L BUN 54 H (9-20) mg/dL Creatinine 1.40 H (0.66-1.25) mg/dL Glucose 316 H (74-99) mg/dL Calcium 8.6 (8.4-10.2) mg/dL Adrenal panel 06/24/16 Range/Units 04:33 Sodium 136 L (137-145) mmol/L Potassium 5.8 H (3.5-5.1) mmol/L Chloride 102 (98-107) mmol/L Carbon Dioxide 20 L (22-30) mmol/L BUN 54 H (9-20) mg/dL Creatinine 1.40 H (0.66-1.25) mg/dL Glucose 316 H (74-99) mg/dL Calcium 8.6 (8.4-10.2) mg/dL - Imaging CT scan - abdomen: report reviewed, image reviewed CT scan - pelvis: report reviewed, image reviewed Assessment and Plan (1) Diabetes type 2, uncontrolled Status: Chronic (2) Abnormal CT of the abdomen Status: Acute (3) Gallbladder polyp Status: Acute (4) Altered mental status Status: Acute (5) Liver mass, left lobe Status: Acute (6) COPD (chronic obstructive pulmonary disease) Status: Chronic (7) H/O ETOH abuse Status: Chronic (8) Abdominal pain Status: Acute (9) Alcohol abuse Status: Chronic (10) Metabolic encephalopathy Status: Acute (11) Respiratory failure Status: Acute (12) Sleep apnea Status: Chronic (13) Elevated AST (SGOT) Status: Acute (14) Elevated ALT measurement Status: Acute (15) Elevated alkaline phosphatase level Status: Acute (16) Right upper quadrant pain Status: Acute (17) Sepsis Status: Acute Plan: 1. He's pending liver biopsy and possible drainage of a left lobe mass/ abscess. On review of his CT abdomen and pelvis, there is no ring-enhancing lesion which would delineate an abscess. However, with his history of prolonged alcoholism, this may be a hepatic adenoma. An MRI would be of benefit however, the patient is unstable. 2. I reviewed with the patient's family alternatives for surgical intervention including transfer to a hepatobiliary center for his liver mass/lesion. 3. In the interim, continue full ventilatory support for respiratory failure. 4. The patient is on pressors, continue. 5. For nutrition, continue with tube feeds. 6. For GI prophylaxis, recommend proton pump inhibitors. 7. For his history of questionable gallstone or polyp along recommend ultrasound of the right upper quadrant. Otherwise no acute surgical intervention at this time. 8. The patient is extremely high risk for any surgical intervention including morbidity/mortality. 9. Recommend IV antibiotics. Thank you very much for along me to participate the care of your patient. Critical care time, 32 minutes.
[2016-06-25] MEDS: VANCOMYCIN 1,500 MG in SODIUM CHLORIDE 0.9% 250 ML IVPB SCH (08:34)
[2016-06-25 10:13] VITALS: RESP 22
[2016-06-25 10:14] LABS: Glucose,Whole Blood 235 mg/dL (75-99)
--- NOTE | 2016-06-25 10:39 | P.CNPUL ---
History of Present Illness Consult date: 06/25/16 Reason for consult: pneumonia, other Chief complaint: Respiratory failure and abdominal pain with abnormal CT of the liver History of present illness: Progress note dated 06/25/2016 This is a 60-year-old male who came to the emergency room complaining of abdominal pain. He was seen by the ER doctor. The patient had PICC line in the emergency room and was eventually intubated and transferred here to the ICU. Yesterday, we ended up putting art line and central line in the patient. The patient's could be transferred to [facility] for more definitive care. The computed tomography scan of the liver showed evidence of a mass or and/or abscess. He was seen by both GI here and also surgery here. Dr. Neff was a butt welder thought the patient should be transferred. Currently the patient's on the ventilator on the assist control mode rate 20 tidal Lyme 450 FiO2 60% to be drop to 40% PEEP of 5. His blood gases show a PaO2 of 75 a pCO2 of 59 and a pH of 7.25. CVP is at 11. He is getting appointment 9 IV at 75 mL an hour levo fed at 12 mics per minute propofol at 20 mics per kilogram per minute and Nepro at a rate of 32 with a goal of 42. He is currently sedated but does wince with apparent pain and/or tenderness when the abdomen is palpated. Past Medical History Past Medical History: Atrial Fibrillation, Heart Failure, COPD, Diabetes Mellitus, GERD/Reflux, Hyperlipidemia, Hypertension, Sleep Apnea/CPAP/BIPAP Additional Past Medical History / Comment(s): Other HX: Chronic hypoxic respiratory failure and the patient OXYGEN dependent between 3-1/2-4 L prn and at night, IDDM type II, paroxysmal AFIB, alcoholism, diverticulosis, obstuctive sleep apnea but no Cpap since wt loss, sinusitis, neuropathy bilateral feet. History of Any Multi-Drug Resistant Organisms: None Reported Past Surgical History: Heart Catheterization Additional Past Surgical History / Comment(s): colonoscopy x 2, eyelid surgery bilaterally, cardiac cath without intervention. Past Anesthesia/Blood Transfusion Reactions: Postoperative Nausea & Vomiting ( PONV) Additional Past Anesthesia/Blood Transfusion Reaction / Comment(s): Pt states he has had PONV with gas only. Past Psychological History: Anxiety, Depression, Panic Disorder Additional Psychological History / Comment(s): He uses no assistive device. He drives. Smoking Status: Current every day smoker Past Alcohol Use History: Abuse, Daily Additional Past Alcohol Use History / Comment(s): HAS BEEN SMOKING 1 PPD FOR PAST 40 YEARS. Pt states he is an alcoholic. He drinks whiskey every day " alot of it." He last drank at earlier this morning today. He has hx of DTs. Past Drug Use History: Unable to Obtain Additional Drug Use History / Comment(s): Pt states in the s and he used a variety of drugs (unable to state which ones) but has not used any since. - Past Family History Mother Family Medical History: Thyroid Disorder Additional Family Medical History / Comment(s): Mother is 86 yrs. old. Father Additional Family Medical History / Comment(s): Father of diverticulitis, peritonitis at the age of 35yrs. Medications and Allergies Home Medications Medication Instructions Recorded Confirmed Type Budesonide-Formot 160-4.5 Mcg 2 puff INHALATION RT-BID 11/29/13 06/23/16 History [Symbicort 160-4.5 Mcg Inhaler] Insulin NPH Human Isophane 50 unit SQ AC-BRKFST PRN 11/29/13 06/24/16 History [NovoLIN N] Insulin NPH Human Isophane 45 unit SQ AC-SUPPER 03/18/15 06/24/16 History [NovoLIN N] Ipratropium/Albuterol Sulfate 1 puff INHALATION RT-TID 02/04/16 06/23/16 History [Combivent Respimat Inhaler] Multivitamins, Thera [Multivitamin] 1 tab PO DAILY 02/04/16 06/23/16 History Nitroglycerin Sl Tabs [Nitrostat] 0.4 mg SUBLINGUAL Q5M PRN 02/04/16 06/23/16 History Biotin 1,000 mcg PO DAILY 06/23/16 06/23/16 History Ciprofloxacin HCl [Cipro] 500 mg PO Q12HR 06/23/16 06/23/16 History Folic Acid 0.4 mg PO DAILY 06/23/16 06/23/16 History Magnesium Gluconate [Magonate] 500 mg PO DAILY 06/23/16 06/23/16 History Metoprolol Tartrate [Lopressor] 12.5 mg PO BID 06/23/16 06/23/16 History Pregabalin [Lyrica] 50 mg PO TID 06/23/16 06/23/16 History Tamsulosin [Flomax] 0.4 mg PO HS 06/23/16 06/23/16 History Vitamin B-12 1,000 mcg PO DAILY 06/23/16 06/23/16 History Vitamin B-6 100 mcg PO DAILY 06/23/16 06/23/16 History Vitamin K 100 mcg PO DAILY 06/23/16 06/23/16 History predniSONE See Taper PO DAILY 06/23/16 06/23/16 History Allergies Allergy/AdvReac Type Severity Reaction Status Date / Time codeine AdvReac Nausea & Verified 06/23/16 21:05 Vomiting Opioids - Morphine Analogues AdvReac Nausea & Verified 06/23/16 21:05 Vomiting Opioids-Meperidine and AdvReac Nausea & Verified 06/23/16 21:05 Related Vomiting [Opioids-Meperidine & Related] Opioids-Methadone and Related AdvReac Nausea & Verified 06/23/16 21:05 [Opioids-Methadone & Related] Vomiting Physical Exam Osteopathic Statement: *. No significant issues noted on an osteopathic structural exam other than those noted in the History and Physical/Consult. Vitals: Vital Signs Temp Pulse Resp BP Pulse Ox 06/25/16 10:00 106 H 22 98/54 99 06/25/16 09:30 112 H 21 100/56 99 06/25/16 09:00 109 H 21 97/59 96 06/25/16 08:30 105 H 35 H 116/61 89 L 06/25/16 08:00 95 19 86/55 90 L 06/25/16 07:54 95 06/25/16 07:30 90 21 99/61 100 06/25/16 07:23 91 06/25/16 07:00 94 20 102/61 97 06/25/16 06:30 94 22 99/56 97 06/25/16 06:00 94 22 103/55 97 06/25/16 05:30 94 20 95/57 97 06/25/16 05:00 94 20 99/54 97 06/25/16 04:30 95 22 106/53 98 06/25/16 04:00 99.1 F 95 22 102/55 98 06/25/16 03:30 93 21 105/56 98 06/25/16 03:00 93 21 97/56 97 17 02:30 93 23 99/53 97 06/25/16 02:00 95 20 93/53 97 17 01:30 94 22 98/57 97 17 01:00 97 22 103/57 96 06/25/16 00:30 95 22 96/56 96 06/25/16 00:00 99.3 F 97 21 100/60 96 06/24/16 23:30 100.4 F H 98 20 101/58 97 06/24/16 23:00 99 22 107/59 96 06/24/16 22:45 99 24 105/58 97 06/24/16 22:30 99 22 105/58 96 06/24/16 22:15 98 20 105/60 96 06/24/16 22:00 101 H 20 105/60 95 06/24/16 21:30 100 20 106/58 95 06/24/16 21:00 101 H 20 104/58 94 L 06/24/16 20:30 102 H 20 98/58 95 06/24/16 20:00 99 F 97 20 99/59 97 06/24/16 19:48 100 06/24/16 19:37 102 H 06/24/16 19:00 101 H 21 99/59 96 06/24/16 18:30 102 H 28 H 101/58 95 06/24/16 18:00 99 5 L 101/58 96 06/24/16 17:30 105 H 0 L 101/58 96 06/24/16 17:00 95 10 L 95 17 16:30 101 H 20 94 L 17 16:00 101 H 10 L 93 L 17 15:47 96 17 15:32 97 17 15:30 98 20 95 17 15:00 102 H 32 H 95 06/24/16 14:30 101 H 12 95 06/24/16 14:00 100 32 H 95 06/24/16 13:30 102 H 25 H 94 L 06/24/16 13:00 100.1 F H 100 24 94 L 06/24/16 12:30 101 H 27 H 94 L 06/24/16 12:00 99 24 95 06/24/16 11:48 93 02/17/17 11:34 93 06/24/16 11:30 96 20 94 L 06/24/16 11:00 97 20 94 L Intake and Output 06/24/16 06/25/16 06/25/16 22:59 06:59 14:59 Intake Total 5144.952 0365.230 487.448 Output Total 500 420 265 Balance 623.497 913.230 222.448 Intake: IV 850 600 425 Sodium Chloride 0.9% 1, 600 600 300 000 ml @ 75 mls/hr IV . [id number] [facility] Rx#:[id number] Vancomycin 1,500 mg In 250 125 Sodium Chloride 0.9% 250 ml @ 125 mls/hr IVPB Q8H [facility] Rx#:[id number] Intake, IV Titration 171.497 525.230 62.448 Amount Norepinephrine 16 mg In 63.864 375.954 41.626 Sodium Chloride 0.9% 250 ml @ Titrate IV .Q0M [facility] Rx#:[id number] Piperacillin-Tazobactam 3 25.0 50.0 12.5 .375 gm In Dextrose/Water 1 50ml.bag @ 12.5 mls/hr IVPB Q8H [facility] Rx#: [id number] Propofol 500 mg In Empty 82.633 99.276 8.322 Bag 1 bag @ Titrate IV . Q0M [facility] Rx#:[id number] Tube Feeding 72 148 Other 30 60 Output: Urine 500 420 265 Other: Voiding Method Indwelling Catheter Indwelling Catheter ABP, PAP, CO, CI - Last 8 Hours Arterial Blood Pressure 81/76 Arterial Blood Pressure 74/67 Arterial Blood Pressure 101/52 Arterial Blood Pressure 90/52 Arterial Blood Pressure 102/54 Arterial Blood Pressure 99/53 Arterial Blood Pressure 102/54 Arterial Blood Pressure 93/51 No acute distress. Currently the patient is intubated and sedated. NG tube and endotracheal tube in place. HEENT examination is grossly unremarkable. Mucous membranes are moist. Neck supple. Full range of motion Cardiovascular examination reveals regular rhythm rate. Heart rate about 90. No murmur. Lungs reveal some diffuse rhonchi. Breath sounds are diminished. Abdomen soft. The patient does wince on palpation diffusely across the abdomen. Does not localize. Extremities are intact. Results - Laboratory Findings CBC and BMP: 06/25/16 05:01 06/25/16 05:01 ABG ABG pH 7.25 (7.35-7.45) L 06/25/16 05:02 ABG pCO2 59 mmHg (35-45) H 06/25/16 05:02 ABG pO2 75 mmHg (83-108) L 06/25/16 05:02 ABG O2 Saturation 92.0 % (94-97) L 06/25/16 05:02 PT/INR, D-dimer PT 13.5 sec (9.0-12.0) H 06/24/16 04:33 INR 1.4 (<1.1) 06/24/16 04:33 Abnormal lab findings: Abnormal Labs 06/23/16 06/24/16 06/24/16 22:40 03:14 03:20 WBC RBC Hgb MCV MCHC Neutrophils # (Manual) Lymphocytes # (Manual) Monocytes # (Manual) PT ABG pH 7.23 L ABG pCO2 70 H* ABG pO2 279 H ABG HCO3 28 H ABG Total CO2 30 H ABG O2 Saturation 100.0 H Sodium Potassium Chloride Carbon Dioxide BUN Creatinine Glucose POC Glucose (mg/dL) 321 H Hemoglobin A1c Phosphorus Ur Specific [place] 1.041 H Urine Protein 2+ H Urine Glucose (UA) Trace H Urine Bilirubin 1+ H Urine RBC 8 H Urine WBC 6 H Ur Squamous Epith Cells 5 H Amorphous Sediment Rare H Urine Bacteria Rare H Hyaline Casts 26 H Urine Mucus Many H 06/24/16 06/24/16 06/24/16 04:33 04:33 04:33 WBC 18.8 H RBC Hgb MCV 101.6 H MCHC 30.0 L Neutrophils # (Manual) 15.2 H Lymphocytes # (Manual) 0.6 L Monocytes # (Manual) 3.0 H PT 13.5 H ABG pH ABG pCO2 ABG pO2 ABG HCO3 ABG Total CO2 ABG O2 Saturation Sodium 136 L Potassium 5.8 H Chloride Carbon Dioxide 20 L BUN 54 H Creatinine 1.40 H Glucose 316 H POC Glucose (mg/dL) Hemoglobin A1c Phosphorus 5.7 H Ur Specific [place] Urine Protein Urine Glucose (UA) Urine Bilirubin Urine RBC Urine WBC Ur Squamous Epith Cells Amorphous Sediment Urine Bacteria Hyaline Casts Urine Mucus 06/24/16 06/24/16 06/24/16 04:33 04:42 06:04 WBC RBC Hgb MCV MCHC Neutrophils # (Manual) Lymphocytes # (Manual) Monocytes # (Manual) PT ABG pH 7.21 L ABG pCO2 63 H ABG pO2 117 H ABG HCO3 ABG Total CO2 26 H ABG O2 Saturation 97.4 H Sodium Potassium Chloride Carbon Dioxide BUN Creatinine Glucose POC Glucose (mg/dL) 321 H Hemoglobin A1c 7.3 H Phosphorus Ur Specific [place] Urine Protein Urine Glucose (UA) Urine Bilirubin Urine RBC Urine WBC Ur Squamous Epith Cells Amorphous Sediment Urine Bacteria Hyaline Casts Urine Mucus 06/24/16 06/24/16 06/24/16 08:53 14:53 20:43 WBC RBC Hgb MCV MCHC Neutrophils # (Manual) Lymphocytes # (Manual) Monocytes # (Manual) PT ABG pH ABG pCO2 ABG pO2 ABG HCO3 ABG Total CO2 ABG O2 Saturation Sodium Potassium Chloride Carbon Dioxide BUN Creatinine Glucose POC Glucose (mg/dL) 306 H 248 H 207 H Hemoglobin A1c Phosphorus Ur Specific [place] Urine Protein Urine Glucose (UA) Urine Bilirubin Urine RBC Urine WBC Ur Squamous Epith Cells Amorphous Sediment Urine Bacteria Hyaline Casts Urine Mucus 06/25/16 06/25/16 06/25/16 00:06 04:58 05:01 WBC 17.6 H RBC 4.15 L Hgb 12.6 L MCV 103.2 H MCHC 29.5 L Neutrophils # (Manual) 12.7 H Lymphocytes # (Manual) Monocytes # (Manual) 2.1 H PT ABG pH ABG pCO2 ABG pO2 ABG HCO3 ABG Total CO2 ABG O2 Saturation Sodium Potassium Chloride Carbon Dioxide BUN Creatinine Glucose POC Glucose (mg/dL) 219 H 220 H Hemoglobin A1c Phosphorus Ur Specific [place] Urine Protein Urine Glucose (UA) Urine Bilirubin Urine RBC Urine WBC Ur Squamous Epith Cells Amorphous Sediment Urine Bacteria Hyaline Casts Urine Mucus 06/25/16 06/25/16 06/25/16 05:01 05:02 07:51 WBC RBC Hgb MCV MCHC Neutrophils # (Manual) Lymphocytes # (Manual) Monocytes # (Manual) PT ABG pH 7.25 L ABG pCO2 59 H ABG pO2 75 L ABG HCO3 ABG Total CO2 27 H ABG O2 Saturation 92.0 L Sodium Potassium Chloride 111 H Carbon Dioxide BUN 59 H Creatinine Glucose 219 H POC Glucose (mg/dL) 256 H Hemoglobin A1c Phosphorus Ur Specific [place] Urine Protein Urine Glucose (UA) Urine Bilirubin Urine RBC Urine WBC Ur Squamous Epith Cells Amorphous Sediment Urine Bacteria Hyaline Casts Urine Mucus 06/25/16 10:12 WBC RBC Hgb MCV MCHC Neutrophils # (Manual) Lymphocytes # (Manual) Monocytes # (Manual) PT ABG pH ABG pCO2 ABG pO2 ABG HCO3 ABG Total CO2 ABG O2 Saturation Sodium Potassium Chloride Carbon Dioxide BUN Creatinine Glucose POC Glucose (mg/dL) 235 H Hemoglobin A1c Phosphorus Ur Specific [place] Urine Protein Urine Glucose (UA) Urine Bilirubin Urine RBC Urine WBC Ur Squamous Epith Cells Amorphous Sediment Urine Bacteria Hyaline Casts Urine Mucus - Diagnostic Findings Chest x-ray: image reviewed (Chest x-ray labs medications are all reviewed) Assessment and Plan (1) Abnormal CT of the abdomen Status: Acute (2) Altered mental status Status: Acute (3) Elevated ALT measurement Status: Acute (4) Elevated AST (SGOT) Status: Acute (5) Gallbladder polyp Status: Acute (6) Liver mass, left lobe Status: Acute (7) Right upper quadrant pain Status: Acute (8) Sepsis Status: Acute (9) Cholelithiases Status: Chronic (10) H/O ETOH abuse Status: Chronic (11) Respiratory failure Status: Acute (12) Alcohol abuse Status: Chronic Plan: Assessment Hypoxemic respiratory failure secondary to pneumonia Possible liver abscess History of hypertension History of hyperlipidemia History of sleep apnea syndrome History of atrial fibrillation History of diabetes History of CHF next Plan GI surgeries bit both been consulted. Neither seen the patient. The patient's tidal volume was dropped drop from 500-450. We increase the rate from 14-20. Blood gases will be repeated. He is on propofol at 18 mics per kilogram per minute. Getting appointment 9 IV at 75 mL an hour. He is on vasopressor at 32 mics per kilo per kilogram per minute. He does need an art line and central line. We'll do that this morning. We'll review his medications labs. We'll review his x-rays. Chest x-ray does show developing right basilar infiltrate. Prognosis is guarded. Plan dated 06/25/2016 I spoke to the family. They understand that were transferring the patient to [facility]. Her other way right now. The patient will probably need some sort of diagnostic procedure either laparotomy and/or a percutaneous biopsy / drainage procedure. Prognosis is guarded Time with Patient: Greater than 30
[2016-06-25 11:14] VITALS: BP 93/56; PULSE 107; TEMP 98.5
[2016-06-25] MEDS ORDERED: VANCOMYCIN TROUGH DUE 1 EACH MISC MISCELLANE ONE (19:30)
[2016-06-25] MEDS ORDERED: VANCOMYCIN 1,500 MG in SODIUM CHLORIDE 0.9% 250 ML IVPB SCH ×3 (20:00)
--- NOTE | 2016-06-27 09:39 | DS ---
DATE OF ADMISSION: 06/23/2016 DATE OF DISCHARGE: 06/25/2016; transferred to [facility] PROCEDURES: None. CONSULTATIONS: Pulmonary, GI and General Surgery consultation. DISCHARGE DIAGNOSES: 1. Acute hypoxic respiratory failure secondary to pneumonia, right lower lobe. 2. Left lobe liver abscess possible and possible mass. 3. Sepsis and septic shock secondary to pneumonia and liver abscess, currently on pressor support. 4. Acute metabolic encephalopathy secondary to infection. 5. History of alcohol abuse, currently drinking every day. 6. Nicotine addiction. 7. Insulin-dependent diabetes type 1. 8. Chronic obstructive pulmonary disease not in exacerbation. 9. Obstructive sleep apnea. 10. Noncompliant with CPAP machine. 11. Hypertension. 12. Chronic cholelithiasis. 13. History of atrial fibrillation replacement, rate is controlled now, was not on anticoagulation. Mr. Ragsdale is a 60-year-old male with a known history of alcohol abuse, COPD and multiple other medical problems including diabetes mellitus, was admitted to the hospital with complaints of abdominal pain, mainly in the right upper quadrant, and has been sick for the past last 4 days. Patient was found to have right lower lobe pneumonia, liver mass and possible abscess in the left lower lobe of the liver. The patient went into respiratory failure with septic shock requiring pressor support in the ER. He was intubated and sedated. The patient was continued on antibiotics in the form of vancomycin and Zosyn as per ID recommendations. The patient was seen by GI as well as General Surgery and Pulmonary in the hospital. Upon discussion with General Surgery and the family, it was advised to transfer the patient to tertiary care facility with separate hepatology unit. Otherwise, patient currently is still intubated and sedated and still requiring pressor support. The patient had a CT of the abdomen and CT of the head during this hospital stay. I did discuss with warehouse and receiving supervisor at [facility]. They accepted the patient to be transferred to [facility] directly to Pulmonary Intensive Care Unit. Patient was transferred to [facility] via helicopter. The family has been notified and are at bedside. Total time taken more than 35 minutes including 18 minutes counseling the patient and coordinating care.
== END 2016-06-25 11:36 | disposition short-term general hospital (02) | DRG 871 ==
LOC: EC 20:45 → 6ICU 22:10
PROVIDERS: ADMIT Hospitalist; ATTEND Hospitalist
PROC: 5A1945Z Respiratory Ventilation, 24-96 Consecutive Hours (ICD-10-PCS; principal; 2016-06-23)
PROC: 0BH17EZ Insertion of Endotracheal Airway into Trachea, Via Natural or Artificial Opening (ICD-10-PCS; 2016-06-23)
PROC: 05HN33Z Insertion of Infusion Device into Left Internal Jugular Vein, Percutaneous Approach (ICD-10-PCS; 2016-06-23)
PROC: 03HY32Z Insertion of Monitoring Device into Upper Artery, Percutaneous Approach (ICD-10-PCS; 2016-06-24)
DX: A41.9 Sepsis, unspecified organism (principal); G93.41 Metabolic encephalopathy; J96.21 Acute and chronic respiratory failure with hypoxia; R65.21 Severe sepsis with septic shock; K75.0 Abscess of liver; J18.9 Pneumonia, unspecified organism; J44.0 Chronic obstructive pulmonary disease with (acute) lower respiratory infection; I50.9 Heart failure, unspecified; R16.0 Hepatomegaly, not elsewhere classified; E10.40 Type 1 diabetes mellitus with diabetic neuropathy, unspecified; E10.65 Type 1 diabetes mellitus with hyperglycemia; E78.5 Hyperlipidemia, unspecified; F10.21 Alcohol dependence, in remission; F17.210 Nicotine dependence, cigarettes, uncomplicated; F32.9 Major depressive disorder, single episode, unspecified; F41.0 Panic disorder [episodic paroxysmal anxiety]; G47.33 Obstructive sleep apnea (adult) (pediatric); I10 Essential (primary) hypertension; I48.0 Paroxysmal atrial fibrillation; K21.9 Gastro-esophageal reflux disease without esophagitis; K57.30 Diverticulosis of large intestine without perforation or abscess without bleeding; K80.20 Calculus of gallbladder without cholecystitis without obstruction; F43.10 Post-traumatic stress disorder, unspecified; F41.9 Anxiety disorder, unspecified; Z79.4 Long term (current) use of insulin; Z79.899 Other long term (current) drug therapy; Z88.5 Allergy status to narcotic agent; Z99.81 Dependence on supplemental oxygen; Z91.19 Patient's noncompliance with other medical treatment and regimen
CPT/HCPCS: 31500; 36415; 36600; 70450; 71010; 74177; 80048; 80053; 80074; 80306; 80320; 81001; 82105; 82140; 82805; 83036; 83605; 83735; 84100; 84484; 85025; 85610; 85730; 87040; 87077; 87086; 87186; 94002; 94003; 94640; 96365; 96366; 96367; 96368; 96375; 99291

== ENCOUNTER 2016-11-16 15:59 | Emergency (ER) | payer MEDICARE, OTHER ==
[2016-11-16 16:12] VITALS: RESP 18
[2016-11-16] MEDS ORDERED: SODIUM CHLORIDE 0.9% 1,000 ML IV STA (16:22)
[2016-11-16] MEDS: SODIUM CHLORIDE 0.9% 500 ML IV STA ×2 (16:42→17:54)
--- NOTE | 2016-11-16 16:43 | ED ---
General Adult HPI - General Chief complaint: Dizziness Stated complaint: Low Blood Pressure / 53/30 Time Seen by Provider: 11/16/16 16:14 Source: patient Mode of arrival: wheelchair Limitations: no limitations - History of Present Illness Initial comments: This 7-year-old white male presents with a complaint of low blood pressure. He states that for the past 1-2 weeks his blood pressure has been running low down to a systolic of approximately 50 something. He also states that his heart rate will be increased up to approximately 115. It is worse when he stands up. He will feel slightly dizzy or lightheaded when this occurs. He denies any recent changes in his medications. He does relate that this past June he had an infection and an around his liver. He was initially seen at our hospital and life flighted out to a larger hospital. He had part of his liver removed as well as his gallbladder removed. This apparently took a total on his kidneys and he was on dialysis up until this past Monday. He denies any recent fevers or chills. He denies any chest pain or shortness of breath. No other complaints or modifying factors. - Related Data Home Medications Medication Instructions Recorded Confirmed Budesonide-Formot 160-4.5 Mcg 2 puff INHALATION RT-BID 11/29/13 06/23/16 [Symbicort 160-4.5 Mcg Inhaler] Insulin NPH Human Isophane 50 unit SQ AC-BRKFST PRN 11/29/13 06/24/16 [NovoLIN N] Insulin NPH Human Isophane 45 unit SQ AC-SUPPER 03/18/15 06/24/16 [NovoLIN N] Ipratropium/Albuterol Sulfate 1 puff INHALATION RT-TID 02/04/16 06/23/16 [Combivent Respimat Inhaler] Multivitamins, Thera [Multivitamin 1 tab PO DAILY 02/04/16 06/23/16 (formulary)] Nitroglycerin Sl Tabs [Nitrostat] 0.4 mg SUBLINGUAL Q5M PRN 02/04/16 06/23/16 Biotin 1,000 mcg PO DAILY 06/23/16 06/23/16 Ciprofloxacin HCl [Cipro] 500 mg PO Q12HR 06/23/16 06/23/16 Folic Acid 0.4 mg PO DAILY 06/23/16 06/23/16 Magnesium Gluconate [Magonate] 500 mg PO DAILY 06/23/16 06/23/16 Metoprolol Tartrate [Lopressor] 12.5 mg PO BID 06/23/16 06/23/16 Pregabalin [Lyrica] 50 mg PO TID 06/23/16 06/23/16 Tamsulosin [Flomax] 0.4 mg PO HS 06/23/16 06/23/16 Vitamin B-12 1,000 mcg PO DAILY 06/23/16 06/23/16 Vitamin B-6 100 mcg PO DAILY 06/23/16 06/23/16 Vitamin K 100 mcg PO DAILY 06/23/16 06/23/16 predniSONE See Taper PO DAILY 06/23/16 06/23/16 Previous Rx's Medication Instructions Recorded Omeprazole [PriLOSEC] 20 mg PO BID #30 03/19/15 LORazepam [Ativan] 1 mg PO Q8H PRN #20 tab 12/31/15 Thiamine [Vitamin B-1] 100 mg PO DAILY #30 tablet 12/31/15 Allergies Allergy/AdvReac Type Severity Reaction Status Date / Time No Known Allergies Allergy Verified 11/16/16 16:13 Review of Systems ROS Statement: Those systems with pertinent positive or pertinent negative responses have been documented in the HPI. ROS Other: All systems not noted in ROS Statement are negative. Past Medical History Past Medical History: Atrial Fibrillation, Heart Failure, COPD, Diabetes Mellitus, Deep Vein Thrombosis (DVT), GERD/Reflux, Hyperlipidemia, Hypertension , Sleep Apnea/CPAP/BIPAP Additional Past Medical History / Comment(s): Other HX: Chronic hypoxic respiratory failure and the patient OXYGEN dependent between 3-1/2-4 L prn and at night, IDDM type II, paroxysmal AFIB, alcoholism, diverticulosis, obstuctive sleep apnea but no Cpap since wt loss, sinusitis, neuropathy bilateral feet. History of Any Multi-Drug Resistant Organisms: None Reported Past Surgical History: Cholecystectomy, Heart Catheterization Additional Past Surgical History / Comment(s): colonoscopy x 2, eyelid surgery bilaterally, cardiac cath without intervention, partial liver removed Past Anesthesia/Blood Transfusion Reactions: Postoperative Nausea & Vomiting ( PONV) Additional Past Anesthesia/Blood Transfusion Reaction / Comment(s): Pt states he has had PONV with gas only. Past Psychological History: Anxiety, Depression, Panic Disorder Smoking Status: Former smoker Past Alcohol Use History: None Reported Past Drug Use History: None Reported - Past Family History Mother Family Medical History: Thyroid Disorder Additional Family Medical History / Comment(s): Mother is 86 yrs. old. Father Additional Family Medical History / Comment(s): Father of diverticulitis, peritonitis at the age of 35yrs. General Exam - General Exam Comments Initial Comments: GENERAL: The patient is well nourished and well hydrated. VITAL SIGNS: Heart rate, blood pressure, respiratory rate reviewed as recorded in nurse's notes. EYES: Pupils are round and reactive. Extraocular movements are intact. No conjunctival / lid redness or swelling. ENT: No external evidence of injury, swelling, or ecchymosis. Airway is patent. Throat is clear. NECK: Nontender. No swelling or evidence of injury. No subcutaneous emphysema. Trachea is midline. No thyroid mass. HEART: Regular rate and rhythm. Good peripheral pulses. LUNGS/CHEST: Breath sounds clear and equal bilaterally. No rales, rhonchi, or wheezes. No ecchymosis, subcutaneous emphysema, or tenderness. ABDOMEN: Abdomen soft without tenderness. No palpable masses or organomegaly. No peritoneal signs. No abdominal wall swelling or ecchymosis. EXTREMITIES: No extremity tenderness. Normal muscle tone and function. No thoracolumbar tenderness. NEUROLOGIC: Sensation is grossly intact. Cranial nerve exam reveals face is symmetrical, tongue is midline, speech is clear. SKIN: No abrasions or ecchymosis is noted. No induration or masses noted. PSYCHIATRIC: Alert and oriented. Appropriate behavior and judgment. Limitations: no limitations Course Vital Signs 11/16/16 11/16/16 11/16/16 16:07 16:44 17:19 Temperature 98.1 F Pulse Rate 52 L 62 54 L Respiratory 18 18 18 Rate Blood Pressure 99/52 90/50 92/54 Blood Pressure [Left Arm Sitting] Blood Pressure [Left Arm Standing] Blood Pressure [Left Arm Supine] O2 Sat by Pulse 93 L 96 96 Oximetry 11/16/16 11/16/16 18:08 18:41 Temperature Pulse Rate 56 L Respiratory 18 Rate Blood Pressure 114/66 Blood Pressure 109/60 [Left Arm Sitting] Blood Pressure 117/59 [Left Arm Standing] Blood Pressure 87/52 [Left Arm Supine] O2 Sat by Pulse 97 Oximetry Medical Decision Making - Medical Decision Making The patient was seen and examined. All diagnostics were reviewed. The EKG shows atrial fibrillation with slow ventricular response at a rate of 59. An occasional PVC is noted. The QRS duration is 88 and the QTc interval is 429. An IV is started and he is mildly hydrated. Orthostatics were done. The laboratory came back showing that the creatinine is slightly elevated. He does relate that he was on dialysis for the past several months and this was stopped on this past Monday. His potassium also slightly elevated. His orthostatics are negative. He is hydrated and his blood pressure did come back to the normal range. He is feeling well on recheck. Due to his symptomatology and blood pressure and laboratory, he was offered admission to the hospital. He refuses stating that he does have an appointment with his research microbiologist tomorrow. It is felt as though he should properly hydrate and this was discussed with him in detail. It is also felt that he should stop his metoprolol and any other blood pressure medications and review this with his research microbiologist tomorrow. Return parameters were discussed. - Lab Data Result diagrams: 11/16/16 16:30 11/16/16 16:30 Lab Results 11/16/16 11/16/16 11/16/16 Range/Units 16:30 16:30 16:30 WBC 7.1 (3.8-10.6) k/uL RBC 3.74 L (4.30-5.90) m/uL Hgb 10.8 L (13.0-17.5) gm/dL Hct 33.1 L (39.0-53.0) % MCV 88.5 (80.0-100.0) fL MCH 28.9 (25.0-35.0) pg MCHC 32.6 (31.0-37.0) g/dL RDW 14.6 (11.5-15.5) % Plt Count 156 (150-450) k/uL Neutrophils % 61 % Lymphocytes % 29 % Monocytes % 5 % Eosinophils % 2 % Basophils % 1 % Neutrophils # 4.4 (1.3-7.7) k/uL Lymphocytes # 2.1 (1.0-4.8) k/uL Monocytes # 0.4 (0-1.0) k/uL Eosinophils # 0.2 (0-0.7) k/uL Basophils # 0.1 (0-0.2) k/uL PT (9.0-12.0) sec INR (<1.1) APTT (22.0-30.0) sec Sodium 138 (137-145) mmol/L Potassium 6.0 H (3.5-5.1) mmol/L Chloride 103 (98-107) mmol/L Carbon Dioxide 26 (22-30) mmol/L Anion Gap 9 mmol/L BUN 43 H (9-20) mg/dL Creatinine 1.89 H (0.66-1.25) mg/dL Est GFR (MDRD) Af Amer 44 (>60 ml/min/1.73 sqM) Est GFR (MDRD) Non-Af 37 (>60 ml/min/1.73 sqM) Glucose 124 H (74-99) mg/dL Calcium 9.6 (8.4-10.2) mg/dL Phosphorus 5.2 H (2.5-4.5) mg/dL Magnesium 1.7 (1.6-2.3) mg/dL Total Bilirubin 0.4 (0.2-1.3) mg/dL AST 17 (17-59) U/L ALT 16 L (21-72) U/L Alkaline Phosphatase 63 (38-126) U/L Total Creatine Kinase 90 (55-170) U/L CK-MB (CK-2) 3.1 H* (0.0-2.4) ng/mL CK-MB (CK-2) Rel Index 3.4 Troponin I <0.012 (0.000-0.034) ng/mL Total Protein 7.0 (6.3-8.2) g/dL Albumin 3.8 (3.5-5.0) g/dL TSH 2.010 (0.465-4.680) mIU/L Urine Color Urine Appearance (Clear) Urine pH (5.0-8.0) Ur Specific [place] (1.001-1.035) Urine Protein (Negative) Urine Glucose (UA) (Negative) Urine Ketones (Negative) Urine Blood (Negative) Urine Nitrite (Negative) Urine Bilirubin (Negative) Urine Urobilinogen (<2.0) mg/dL Ur Leukocyte Esterase (Negative) 11/16/16 11/16/16 Range/Units 16:30 16:45 WBC (3.8-10.6) k/uL RBC (4.30-5.90) m/uL Hgb (13.0-17.5) gm/dL Hct (39.0-53.0) % MCV (80.0-100.0) fL MCH (25.0-35.0) pg MCHC (31.0-37.0) g/dL RDW (11.5-15.5) % Plt Count (150-450) k/uL Neutrophils % % Lymphocytes % % Monocytes % % Eosinophils % % Basophils % % Neutrophils # (1.3-7.7) k/uL Lymphocytes # (1.0-4.8) k/uL Monocytes # (0-1.0) k/uL Eosinophils # (0-0.7) k/uL Basophils # (0-0.2) k/uL PT 10.6 (9.0-12.0) sec INR 1.1 (<1.1) APTT 23.6 (22.0-30.0) sec Sodium (137-145) mmol/L Potassium (3.5-5.1) mmol/L Chloride (98-107) mmol/L Carbon Dioxide (22-30) mmol/L Anion Gap mmol/L BUN (9-20) mg/dL Creatinine (0.66-1.25) mg/dL Est GFR (MDRD) Af Amer (>60 ml/min/1.73 sqM) Est GFR (MDRD) Non-Af (>60 ml/min/1.73 sqM) Glucose (74-99) mg/dL Calcium (8.4-10.2) mg/dL Phosphorus (2.5-4.5) mg/dL Magnesium (1.6-2.3) mg/dL Total Bilirubin (0.2-1.3) mg/dL AST (17-59) U/L ALT (21-72) U/L Alkaline Phosphatase (38-126) U/L Total Creatine Kinase (55-170) U/L CK-MB (CK-2) (0.0-2.4) ng/mL CK-MB (CK-2) Rel Index Troponin I (0.000-0.034) ng/mL Total Protein (6.3-8.2) g/dL Albumin (3.5-5.0) g/dL TSH (0.465-4.680) mIU/L Urine Color Yellow Urine Appearance Clear (Clear) Urine pH 6.0 (5.0-8.0) Ur Specific [place] 1.010 (1.001-1.035) Urine Protein Negative (Negative) Urine Glucose (UA) Negative (Negative) Urine Ketones Negative (Negative) Urine Blood Negative (Negative) Urine Nitrite Negative (Negative) Urine Bilirubin Negative (Negative) Urine Urobilinogen <2.0 (<2.0) mg/dL Ur Leukocyte Esterase Negative (Negative) Disposition Clinical Impression: Dehydration, Chronic renal disease, Hyperkalemia, Hypotension, Chronic atrial fibrillation Disposition: HOME SELF-CARE Condition: Good Instructions: Hypotension (ED), Hyperkalemia (ED), Dehydration (ED), Chronic Kidney Disease (ED) Additional Instructions: Please follow-up with your research microbiologist tomorrow as scheduled. Your potassium was elevated at 6.0. We gave you a dose of Kayexalate. Please have your doctor recheck your potassium level tomorrow. Referrals: Kevin Walker DO [Primary Care Provider] - 1-2 days Time of Disposition: 18:57
[2016-11-16 16:48] LABS: Basophils # (A) 0.1 k/uL (0-0.2); Basophils % (A) 1 %; CH 27.8; CHCM 31.5; Eosinophils # (A) 0.2 k/uL (0-0.7); Eosinophils % (A) 2 %; HCT 33.1 % (39.0-53.0); HDW 2.27; HGB 10.8 gm/dL (13.0-17.5); Luc # (Auto) 0.12; Luc % (Auto) 2; Lymphocytes # (A) 2.1 k/uL (1.0-4.8); Lymphocytes % (A) 29 %; MCH 28.9 pg (25.0-35.0); MCHC 32.6 g/dL (31.0-37.0); MCV 88.5 fL (80.0-100.0); Mean Platelet Volume 8.1; Monocytes # (A) 0.4 k/uL (0-1.0); Monocytes % (A) 5 %; Neutrophils # (A) 4.4 k/uL (1.3-7.7); Neutrophils % (A) 61 %; RBC 3.74 m/uL (4.30-5.90); RDW 14.6 % (11.5-15.5); WBC 7.1 k/uL (3.8-10.6); WBC (Perox) 6.88
[2016-11-16 17:02] LABS: Appearance,Urine Clear (Clear); Bilirubin,Urine Negative (Negative); Glucose,Urine (UA) Negative (Negative); Ketones,Urine Negative (Negative); Leukocyte Esterase,Urine Negative (Negative); Nitrite,Urine Negative (Negative); Protein,Urine Negative (Negative); UA Billing (MACRO vs. MICRO) CHEM; Urobilinogen,Urine <2.0 mg/dL (<2.0)
[2016-11-16 17:05] LABS: INR 1.1 (<1.1); Partial Thromboplastin Time 23.6 sec (22.0-30.0); Prothrombin Time 10.6 sec (9.0-12.0)
[2016-11-16 17:07] LABS: Calcium 9.6 mg/dL (8.4-10.2); Magnesium 1.7 mg/dL (1.6-2.3); Phosphorous 5.2 mg/dL (2.5-4.5); Total Bilirubin 0.4 mg/dL (0.2-1.3)
[2016-11-16 17:09] LABS: Creatine Kinase 90 U/L (55-170)
[2016-11-16 17:22] LABS: Troponin I <0.012 ng/mL (0.000-0.034)
[2016-11-16 17:23] LABS: Creatine Kinase MB 3.1 ng/mL (0.0-2.4)
--- NOTE | 2016-11-16 17:32 | XR ---
EXAMINATION TYPE: XR chest 2V DATE OF EXAM: 11/16/2016 COMPARISON: 06/25/16 HISTORY: Shortness of breath TECHNIQUE: Frontal and lateral views of the chest are obtained. FINDINGS: Scattered senescent parenchymal changes noted. Hyperinflation compatible with COPD. No evidence for infiltrate. No evidence for atelectasis. Heart size is stable. Mediastinal structures are stable and grossly unremarkable. No evidence for hilar prominence. Degenerative changes dorsal spine. IMPRESSION: 1. No evidence for acute pulmonary disease.
[2016-11-16] MEDS ORDERED: SODIUM CHLORIDE 0.9% 500 ML IV STA (17:47)
[2016-11-16] MEDS ORDERED: SODIUM POLYSTYRENE SULFONATE 15 GM/60 ML BOTTLE PO STA (18:53)
[2016-11-16 19:11] VITALS: BP 113/68; PULSE 65; TEMP 97.9
== END 2016-11-16 19:15 | disposition home or self-care (01) ==
LOC: EC 15:59
DX: N18.9 Chronic kidney disease, unspecified (principal); I49.3 Ventricular premature depolarization; I95.9 Hypotension, unspecified; I48.2 Chronic atrial fibrillation; E87.5 Hyperkalemia; E86.0 Dehydration; I12.9 Hypertensive chronic kidney disease with stage 1 through stage 4 chronic kidney disease, or unspecified chronic kidney disease; J44.9 Chronic obstructive pulmonary disease, unspecified; E11.22 Type 2 diabetes mellitus with diabetic chronic kidney disease; Z87.891 Personal history of nicotine dependence; Z79.4 Long term (current) use of insulin; Z79.51 Long term (current) use of inhaled steroids; Z79.52 Long term (current) use of systemic steroids; Z79.899 Other long term (current) drug therapy; Z99.2 Dependence on renal dialysis
CPT/HCPCS: 36415; 71020; 80053; 81003; 82550; 82553; 83735; 84100; 84443; 84484; 85025; 85610; 85730; 87040; 93005; 96360; 96361; 99284

== ENCOUNTER → 2016-12-07 | Outpatient (CLI) | payer MEDICARE, OTHER ==
--- NOTE | 2016-12-07 11:41 | US ---
EXAMINATION TYPE: US kidneys/renal and bladder DATE OF EXAM: 12/07/2016 COMPARISON: NONE CLINICAL HISTORY: N17.9 acute kidney injury. Patient states just getting off dialysis. No surgery. No pain. EXAM MEASUREMENTS: Right Kidney: 12.4 x 6.3 x 4.8 cm Left Kidney: 11.4 x 6.1 x 7.1 cm Right Kidney: lateral lower pole cystic appearing lesion seen = 0.9 x 0.7 x 0.7 cm Left Kidney: appears lobular Bladder: moderately distended, wnl as visualized Bilateral Jets not seen There is no evidence for hydronephrosis at this point in time. Cortical medullary differentiation is maintained bilaterally. No nephrolithiasis is seen. No masses are identified. The urinary bladder is anechoic. IMPRESSION: No evidence of hydronephrosis or nephrolithiasis. Cortical medullary differentiation is maintained an d there is no sonographic evidence of medical renal disease.
== END | disposition home or self-care (01) ==
LOC: RADUSWWP 10:45
PROVIDERS: ATTEND Internal Medicine Nephrology
DX: N17.9 Acute kidney failure, unspecified (principal)
CPT/HCPCS: 76770

== ENCOUNTER 2017-01-22 21:37 | Inpatient (IN) | payer MEDICARE, OTHER ==
[2017-01-22] MEDS ORDERED: SODIUM CHLORIDE 0.9% 1,000 ML IV STA ×3 (22:43→23:45)
[2017-01-22] MEDS ORDERED: SODIUM CHLORIDE 0.9% 500 ML IV STA (22:43)
[2017-01-22] MEDS ORDERED: ONDANSETRON 4 MG/2 ML VIAL IVP STA (22:43)
[2017-01-22] MEDS ORDERED: MORPHINE SULFATE 4 MG/ML SYRINGE IV STA (22:43)
[2017-01-22 23:05] LABS: Anisocytosis Slight; Basophils # (A) 0.1 k/uL (0-0.2); Basophils % (A) 0 %; CH 29.6; CHCM 32.6; Eosinophils # (A) 0.3 k/uL (0-0.7); Eosinophils % (A) 1 %; HCT 37.3 % (39.0-53.0); HDW 2.34; HGB 12.5 gm/dL (13.0-17.5); Luc # (Auto) 0.18; Luc % (Auto) 1; Lymphocytes # (A) 2.7 k/uL (1.0-4.8); Lymphocytes % (A) 14 %; MCH 30.5 pg (25.0-35.0); MCHC 33.4 g/dL (31.0-37.0); MCV 91.2 fL (80.0-100.0); Mean Platelet Volume 7.9; Monocytes # (A) 0.9 k/uL (0-1.0); Monocytes % (A) 4 %; Neutrophils # (A) 15.4 k/uL (1.3-7.7); Neutrophils % (A) 79 %; RBC 4.09 m/uL (4.30-5.90); RDW 16.6 % (11.5-15.5); WBC 19.5 k/uL (3.8-10.6); WBC (Perox) 19.29
[2017-01-22 23:14] LABS: Calcium 9.8 mg/dL (8.4-10.2); Magnesium 1.6 mg/dL (1.6-2.3); Phosphorous 4.4 mg/dL (2.5-4.5); Potassium 5.4 mmol/L (3.5-5.1); Total Bilirubin 0.4 mg/dL (0.2-1.3); Total Protein 7.1 g/dL (6.3-8.2)
[2017-01-22 23:15] LABS: Partial Thromboplastin Time 23.1 sec (22.0-30.0); Prothrombin Time 10.4 sec (9.0-12.0)
[2017-01-22 23:28] LABS: Creatine Kinase 62 U/L (55-170)
--- NOTE | 2017-01-22 23:34 | ED ---
General Adult HPI - General Chief complaint: Abdominal Pain Stated complaint: abdominal pain/vomiting Time Seen by Provider: 01/22/17 22:14 Source: patient, RN notes reviewed, old records reviewed Mode of arrival: wheelchair Limitations: no limitations - History of Present Illness Initial comments: This is a 61-year-old male here for evaluation. This patient presents for evaluation regarding dropping, severe in nature bowel pain. Patient does have this history of abdominal surgeries. States positive nausea no vomiting no fevers no diarrhea no difficulties with urination. Just severe bowel pain with distention. Started today progressively worse and now patient is in significant distress secondary to pain, no modifying factors for pain never had similar issues of pain before - Related Data Home Medications Medication Instructions Recorded Confirmed Budesonide-Formot 160-4.5 Mcg 2 puff INHALATION RT-BID 11/29/13 11/16/16 [Symbicort 160-4.5 Mcg Inhaler] Ipratropium/Albuterol Sulfate 1 puff INHALATION RT-QID PRN 02/04/16 11/16/16 [Combivent Respimat Inhaler] Nitroglycerin Sl Tabs [Nitrostat] 0.4 mg SUBLINGUAL Q5M PRN 02/04/16 11/16/16 Tamsulosin [Flomax] 0.4 mg PO DAILY 06/23/16 11/16/16 Acamprosate Calcium [Campral] 666 mg PO TID-W/MEALS 11/16/16 11/16/16 Aspirin EC [Ecotrin Low Dose] 81 mg PO DAILY 11/16/16 11/16/16 Insulin Aspart [NovoLOG Flexpen] See Protocol SQ AC-TID 11/16/16 11/16/16 Ipratropium Nebulized [Atrovent 0.5 mg INHALATION RT-Q4H PRN 11/16/16 11/16/16 Nebulized] Lidocaine 5% Patch [Lidoderm] 1 patch TOPICAL DAILY PRN 11/16/16 11/16/16 Midodrine [ProAmatine] 5 mg PO Q8H PRN 11/16/16 11/16/16 Sevelamer [Renvela] 800 mg PO TID-W/MEALS 11/16/16 11/16/16 Previous Rx's Medication Instructions Recorded LORazepam [Ativan] 1 mg PO Q8H PRN #20 tab 12/31/15 Allergies Allergy/AdvReac Type Severity Reaction Status Date / Time No Known Allergies Allergy Verified 01/22/17 23:30 Review of Systems ROS Statement: Those systems with pertinent positive or pertinent negative responses have been documented in the HPI. ROS Other: All systems not noted in ROS Statement are negative. Past Medical History Past Medical History: Atrial Fibrillation, Heart Failure, COPD, Diabetes Mellitus, Deep Vein Thrombosis (DVT), GERD/Reflux, Hyperlipidemia, Hypertension , Sleep Apnea/CPAP/BIPAP Additional Past Medical History / Comment(s): Other HX: Chronic hypoxic respiratory failure and the patient OXYGEN dependent between 3-1/2-4 L prn and at night, IDDM type II, paroxysmal AFIB, alcoholism, diverticulosis, obstuctive sleep apnea but no Cpap since wt loss, sinusitis, neuropathy bilateral feet. History of Any Multi-Drug Resistant Organisms: None Reported Past Surgical History: Cholecystectomy, Heart Catheterization Additional Past Surgical History / Comment(s): colonoscopy x 2, eyelid surgery bilaterally, cardiac cath without intervention, partial liver removed Past Anesthesia/Blood Transfusion Reactions: Postoperative Nausea & Vomiting ( PONV) Additional Past Anesthesia/Blood Transfusion Reaction / Comment(s): Pt states he has had PONV with gas only. Past Psychological History: Anxiety, Depression, Panic Disorder Smoking Status: Former smoker Past Alcohol Use History: None Reported Past Drug Use History: None Reported - Past Family History Mother Family Medical History: Thyroid Disorder Additional Family Medical History / Comment(s): Mother is 86 yrs. old. Father Additional Family Medical History / Comment(s): Father of diverticulitis, peritonitis at the age of 35yrs. General Exam Limitations: no limitations General appearance: alert, in no apparent distress Head exam: Present: atraumatic, normocephalic, normal inspection Eye exam: Present: normal appearance, PERRL, EOMI. Absent: scleral icterus, conjunctival injection, periorbital swelling ENT exam: Present: normal exam, mucous membranes moist Neck exam: Present: normal inspection. Absent: tenderness, meningismus, lymphadenopathy Respiratory exam: Present: normal lung sounds bilaterally. Absent: respiratory distress, wheezes, rales, rhonchi, stridor Cardiovascular Exam: Present: regular rate, normal rhythm, normal heart sounds. Absent: systolic murmur, diastolic murmur, rubs, gallop, clicks GI/Abdominal exam: Present: soft, distended, tenderness, guarding, normal bowel sounds. Absent: rebound, rigid Extremities exam: Present: normal inspection, full ROM, normal capillary refill. Absent: tenderness, pedal edema, joint swelling, calf tenderness Back exam: Present: normal inspection Neurological exam: Present: alert, oriented X3, CN II-XII intact Psychiatric exam: Present: normal affect, normal mood Skin exam: Present: warm, dry, intact, normal color. Absent: rash Course Vital Signs 01/22/17 01/22/17 01/22/17 21:51 22:23 23:05 Temperature 98.0 F 96.8 F L Pulse Rate 56 L 59 L 60 Respiratory 20 22 16 Rate Blood Pressure 155/88 138/68 138/68 O2 Sat by Pulse 97 94 L 100 Oximetry 01/23/17 00:35 Temperature Pulse Rate 69 Respiratory 20 Rate Blood Pressure 113/58 O2 Sat by Pulse 93 L Oximetry - Reevaluation(s) Reevaluation #1: 01/23/17 00:43 Abdominal pain is now controlled EKG Findings - EKG Comments: EKG Findings:: EKG shows sinus bradycardia rate 51, pO2 02, QRS 90, QTC 431 Medical Decision Making - Medical Decision Making 7 female here with abdominal pain. Patient has positive small bowel obstruction history of cholecystectomy, patient be admitted for surgical evaluation and treatment, IV hydration pain control symptom therapy - Lab Data Result diagrams: 01/22/17 22:53 01/22/17 22:53 Lab Results 01/22/17 01/22/17 01/22/17 Range/Units 22:53 22:53 22:53 WBC 19.5 H (3.8-10.6) k/uL RBC 4.09 L (4.30-5.90) m/uL Hgb 12.5 L (13.0-17.5) gm/dL Hct 37.3 L (39.0-53.0) % MCV 91.2 (80.0-100.0) fL MCH 30.5 (25.0-35.0) pg MCHC 33.4 (31.0-37.0) g/dL RDW 16.6 H (11.5-15.5) % Plt Count 197 (150-450) k/uL Neutrophils % 79 % Lymphocytes % 14 % Monocytes % 4 % Eosinophils % 1 % Basophils % 0 % Neutrophils # 15.4 H (1.3-7.7) k/uL Lymphocytes # 2.7 (1.0-4.8) k/uL Monocytes # 0.9 (0-1.0) k/uL Eosinophils # 0.3 (0-0.7) k/uL Basophils # 0.1 (0-0.2) k/uL Anisocytosis Slight PT (9.0-12.0) sec INR (<1.2) APTT (22.0-30.0) sec Sodium 136 L (137-145) mmol/L Potassium 5.4 H (3.5-5.1) mmol/L Chloride 102 (98-107) mmol/L Carbon Dioxide 23 (22-30) mmol/L Anion Gap 11 mmol/L BUN 52 H (9-20) mg/dL Creatinine 1.60 H (0.66-1.25) mg/dL Est GFR (MDRD) Af Amer 54 (>60 ml/min/1.73 sqM) Est GFR (MDRD) Non-Af 44 (>60 ml/min/1.73 sqM) Glucose 194 H (74-99) mg/dL Plasma Lactic Acid Stone (0.7-2.0) mmol/L Calcium 9.8 (8.4-10.2) mg/dL Phosphorus 4.4 (2.5-4.5) mg/dL Magnesium 1.6 (1.6-2.3) mg/dL Total Bilirubin 0.4 (0.2-1.3) mg/dL AST 26 (17-59) U/L ALT 27 (21-72) U/L Alkaline Phosphatase 136 H (38-126) U/L Total Creatine Kinase 62 (55-170) U/L CK-MB (CK-2) 4.2 H* (0.0-2.4) ng/mL CK-MB (CK-2) Rel Index 6.8 Troponin I <0.012 (0.000-0.034) ng/mL Total Protein 7.1 (6.3-8.2) g/dL Albumin 4.3 (3.5-5.0) g/dL 01/22/17 01/22/17 Range/Units 22:53 22:53 WBC (3.8-10.6) k/uL RBC (4.30-5.90) m/uL Hgb (13.0-17.5) gm/dL Hct (39.0-53.0) % MCV (80.0-100.0) fL MCH (25.0-35.0) pg MCHC (31.0-37.0) g/dL RDW (11.5-15.5) % Plt Count (150-450) k/uL Neutrophils % % Lymphocytes % % Monocytes % % Eosinophils % % Basophils % % Neutrophils # (1.3-7.7) k/uL Lymphocytes # (1.0-4.8) k/uL Monocytes # (0-1.0) k/uL Eosinophils # (0-0.7) k/uL Basophils # (0-0.2) k/uL Anisocytosis PT 10.4 (9.0-12.0) sec INR 1.0 (<1.2) APTT 23.1 (22.0-30.0) sec Sodium (137-145) mmol/L Potassium (3.5-5.1) mmol/L Chloride (98-107) mmol/L Carbon Dioxide (22-30) mmol/L Anion Gap mmol/L BUN (9-20) mg/dL Creatinine (0.66-1.25) mg/dL Est GFR (MDRD) Af Amer (>60 ml/min/1.73 sqM) Est GFR (MDRD) Non-Af (>60 ml/min/1.73 sqM) Glucose (74-99) mg/dL Plasma Lactic Acid Stone 1.4 (0.7-2.0) mmol/L Calcium (8.4-10.2) mg/dL Phosphorus (2.5-4.5) mg/dL Magnesium (1.6-2.3) mg/dL Total Bilirubin (0.2-1.3) mg/dL AST (17-59) U/L ALT (21-72) U/L Alkaline Phosphatase (38-126) U/L Total Creatine Kinase (55-170) U/L CK-MB (CK-2) (0.0-2.4) ng/mL CK-MB (CK-2) Rel Index Troponin I (0.000-0.034) ng/mL Total Protein (6.3-8.2) g/dL Albumin (3.5-5.0) g/dL - Radiology Data Radiology results: report reviewed (CT pelvis positive for small bowel obstruction), image reviewed Disposition Clinical Impression: Small bowel obstruction, Abdominal pain Disposition: ADMITTED IP TO THIS HOSP Condition: Fair Referrals: Kevin Walker DO [Primary Care Provider] - 1-2 days
[2017-01-22 23:40] LABS: Troponin I <0.012 ng/mL (0.000-0.034)
[2017-01-22 23:44] LABS: Creatine Kinase MB 4.2 ng/mL (0.0-2.4)
[2017-01-22] MEDS ORDERED: RX INFO: IV CONTRAST WAS GIVEN 1 EACH MISC MISCELLANE PRN (23:45)
--- NOTE | 2017-01-23 00:27 | CT ---
EXAM: CT Abdomen and Pelvis Without Intravenous Contrast CLINICAL HISTORY: Pain TECHNIQUE: Axial computed tomography images of the abdomen and pelvis without intravenous contrast. CTDI is 11.8 mGy and DLP is 604.1 mGy-cm. This CT exam was performed using one or more of the following dose reduction techniques: automated exposure control, adjustment of the mA and/or kV according to patient size, and/or use of iterative reconstruction technique. COMPARISON: No relevant prior studies available. FINDINGS: Lower thorax: Bibasilar atelectasis and/or scarring. ABDOMEN: Liver: Punctate calcification within the liver. Subcapsular low- density lesion within the right hepatic lobe measured 19 mm (350), is nonspecific but unchanged. This demonstrated some enhancement on the prior suggesting possible hemangioma. Gallbladder and bile ducts: Gallbladder is surgically absent. Pancreas: Unremarkable. Spleen: Unremarkable. Adrenals: Unremarkable. Kidneys and ureters: Unremarkable. Stomach and bowel: Dilated loops of proximal small bowel with a transition point in the anterior left lower pelvis (3-93). The distal small bowel is decompressed. Findings are suggestive of a small bowel obstruction. Noninflamed colonic diverticulosis. Appendix: The appendix is unremarkable. PELVIS: Bladder: Unremarkable. Reproductive: Unremarkable as visualized. ABDOMEN and PELVIS: Intraperitoneal space: Unremarkable. Bones/joints: Degenerative changes of the osseous structures. No acute fracture. No dislocation. Soft tissues: Unremarkable. Vasculature: Vascular calcifications. Lymph nodes: Unremarkable. IMPRESSION: Dilated loops of proximal small bowel with a transition point in the anterior left lower pelvis (3-93). The distal small bowel is decompressed. Findings are suggestive of a small bowel obstruction.
[2017-01-23] MEDS ORDERED: ONDANSETRON 4 MG/2 ML VIAL IVP PRN ×2 (00:42→08:57)
[2017-01-23] MEDS ORDERED: PANTOPRAZOLE 40 MG/10 ML VIAL IVP STA (00:42)
[2017-01-23] MEDS ORDERED: HYDROmorphone 2 MG/ML 1 ML SYRINGE IVP STA (00:42)
[2017-01-23] MEDS ORDERED: AMPICILLIN-SULBACTAM 3 GM in SODIUM CHLORIDE 0.9% 100 ML IVPB STA (00:44)
[2017-01-23] MEDS ORDERED: SODIUM CHLORIDE 0.9% 1,000 ML IV ONE (01:18)
[2017-01-23] MEDS: HYDROmorphone 1 MG/ML 1 ML SYRINGE IVP PRN ×4 (03:38→15:07)
[2017-01-23 06:47] LABS: Anisocytosis Slight; Basophils % (A) 0 %; CH 29.3; CHCM 31.5; Eosinophils # (A) 0.1 k/uL (0-0.7); Eosinophils % (A) 1 %; HCT 35.3 % (39.0-53.0); HDW 2.29; HGB 11.4 gm/dL (13.0-17.5); Luc # (Auto) 0.12; Luc % (Auto) 1; Lymphocytes # (A) 1.6 k/uL (1.0-4.8); Lymphocytes % (A) 15 %; MCH 30.1 pg (25.0-35.0); MCHC 32.2 g/dL (31.0-37.0); MCV 93.3 fL (80.0-100.0); Mean Platelet Volume 7.8; Monocytes # (A) 0.7 k/uL (0-1.0); Monocytes % (A) 6 %; Neutrophils # (A) 8.2 k/uL (1.3-7.7); Neutrophils % (A) 77 %; RBC 3.78 m/uL (4.30-5.90); RDW 16.4 % (11.5-15.5); WBC 10.7 k/uL (3.8-10.6); WBC (Perox) 10.76
[2017-01-23 06:49] LABS: Glucose,Whole Blood 144 mg/dL (75-99)
[2017-01-23] MEDS ORDERED: ENOXAPARIN 40 MG/0.4 ML SYRINGE SQ SCH (09:00)
[2017-01-23] MEDS ORDERED: PANTOPRAZOLE 40 MG/10 ML VIAL IVP SCH (09:00)
[2017-01-23 10:05] LABS: INR 1.1 (<1.2); Prothrombin Time 11.1 sec (9.0-12.0)
[2017-01-23 10:08] LABS: Anion Gap 6 mmol/L; Blood Urea Nitrogen 44 mg/dL (9-20); Carbon Dioxide 27 mmol/L (22-30); Chloride 107 mmol/L (98-107); Glucose 148 mg/dL (74-99); Magnesium 1.7 mg/dL (1.6-2.3); Non-African American GFR(MDRD) 53 (>60 ml/min/1.73 sqM); Phosphorous 5.6 mg/dL (2.5-4.5); Potassium 5.1 mmol/L (3.5-5.1); Sodium 140 mmol/L (137-145)
--- NOTE | 2017-01-23 10:26 | P.NPCON ---
History of Present Illness - Reason for Consult chronic renal failure - History of Present Illness Reason for consultation: Acute kidney injury on chronic kidney disease History of present illness: Patient is a 61-year-old male seen in renal consultation for acute kidney injury on chronic kidney disease. Patient has chronic kidney disease stage III with baseline creatinine in the range of 1.4-1.6 secondary to non-recovered ATN. In June 2016 patient developed septic shock and was admitted at [facility] for nearly 2 months. Patient states at that time he had part of his liver as well as gallbladder removed. He was started on hemodialysis and required hemodialysis for about 4-5 months. Subsequently his renal function recovered and dialysis was discontinued. He had a permacath in place which was also removed. His GFR is at baseline with creatinine at 1.38 today. She states last night he developed abdominal pain that started suddenly after he ate dinner. He also had multiple episodes of emesis. Denies diarrhea. Admits to good urine output. No hematuria or dysuria. He denies taking any NSAIDs at this time. No melena or hematochezia. Hemodynamically stable. He currently has an NG tube in place. CT of the abdomen and pelvis revealed no evidence of hydronephrosis. Currently being treated for small bowel obstruction. Vital signs are stable. General: The patient appeared well nourished and normally developed. NG tube in place. HEENT: Head exam is unremarkable. Neck is without jugular venous distension. LUNGS: Lungs are clear to auscultation and percussion. Breath sounds decreased. HEART: Rate and Rhythm are regular. First and second heart sounds normal. No murmurs, rubs or gallops. ABDOMEN: Bowel sounds decreased. Mildly tender to palpation. EXTREMITITES: No clubbing, cyanosis, or edema. Past Medical History Past Medical History: Atrial Fibrillation, Heart Failure, COPD, Diabetes Mellitus, Deep Vein Thrombosis (DVT), GERD/Reflux, Hyperlipidemia, Hypertension , Sleep Apnea/CPAP/BIPAP Additional Past Medical History / Comment(s): Other HX: Chronic hypoxic respiratory failure and the patient OXYGEN dependent between 3-1/2-4 L prn and at night, IDDM type II, paroxysmal AFIB, alcoholism, diverticulosis, obstuctive sleep apnea but no Cpap since wt loss, sinusitis, neuropathy bilateral feet. History of Any Multi-Drug Resistant Organisms: None Reported Past Surgical History: Cholecystectomy, Heart Catheterization Additional Past Surgical History / Comment(s): colonoscopy x 3, eyelid surgery bilaterally, cardiac cath without intervention, partial liver removed Past Anesthesia/Blood Transfusion Reactions: Postoperative Nausea & Vomiting ( PONV) Additional Past Anesthesia/Blood Transfusion Reaction / Comment(s): Pt states he has had PONV with gas only. Past Psychological History: Anxiety, Depression, Panic Disorder Additional Psychological History / Comment(s): He uses no assistive device. He drives. Smoking Status: Current every day smoker Past Alcohol Use History: None Reported Additional Past Alcohol Use History / Comment(s): PT states he currently smokes 10 cigarettes daily. Pt states he has not had an alcoholic drink since 04/2016. Hx of alcoholism. He has hx of DTs. Past Drug Use History: None Reported Additional Drug Use History / Comment(s): Pt states in the 1970's and s he used a variety of drugs (unable to state which ones) but has not used any since. - Past Family History Mother Family Medical History: Thyroid Disorder Additional Family Medical History / Comment(s): Mother is 86 yrs. old. Father Additional Family Medical History / Comment(s): Father of diverticulitis, peritonitis at the age of 35yrs. Medications and Allergies Home Medications Medication Instructions Recorded Confirmed Type Budesonide-Formot 160-4.5 Mcg 2 puff INHALATION RT-BID 11/29/13 01/23/17 History [Symbicort 160-4.5 Mcg Inhaler] LORazepam [Ativan] 1 mg PO Q8H PRN #20 tab 12/31/15 01/23/17 Rx Ipratropium/Albuterol Sulfate 1 puff INHALATION RT-QID PRN 02/04/16 01/23/17 History [Combivent Respimat Inhaler] Nitroglycerin Sl Tabs [Nitrostat] 0.4 mg SUBLINGUAL Q5M PRN 02/04/16 01/23/17 History Tamsulosin [Flomax] 0.4 mg PO DAILY 06/23/16 01/23/17 History Acamprosate Calcium [Campral] 666 mg PO TID-W/MEALS 11/16/16 01/23/17 History Aspirin EC [Ecotrin Low Dose] 81 mg PO DAILY 11/16/16 01/23/17 History Insulin Aspart [NovoLOG Flexpen] See Protocol SQ AC-TID 11/16/16 01/23/17 History Ipratropium Nebulized [Atrovent 0.5 mg INHALATION RT-Q4H PRN 11/16/16 01/23/17 History Nebulized] Lidocaine 5% Patch [Lidoderm] 1 patch TOPICAL DAILY PRN 11/16/16 01/23/17 History Midodrine [ProAmatine] 5 mg PO Q8H PRN 11/16/16 01/23/17 History Sevelamer [Renvela] 800 mg PO TID-W/MEALS 11/16/16 01/23/17 History Allergies Allergy/AdvReac Type Severity Reaction Status Date / Time No Known Allergies Allergy Verified 01/22/17 23:30 Physical Exam Vitals: Vital Signs Temp Pulse Pulse Resp BP BP Pulse Ox 01/23/17 07:00 97.7 F 62 16 110/54 91 L 01/23/17 01:47 96.9 F L 71 16 126/64 01/23/17 01:30 98.2 F 84 16 128/88 100 01/23/17 01:20 86 18 113/58 100 01/23/17 00:35 69 20 113/58 93 L 01/22/17 23:05 60 16 138/68 100 01/22/17 22:23 96.8 F L 59 L 22 138/68 94 L 01/22/17 21:51 98.0 F 56 L 20 155/88 97 Intake and Output 01/22/17 01/23/17 01/23/17 22:59 06:59 14:59 Intake Total 800 Balance 800 Intake: Intake, IV Titration 800 Amount Sodium Chloride 0.9% 1, 800 000 ml @ 100 mls/hr IV . Q10H ONE Rx#:[id number] Other: Voiding Method Toilet # Voids 1 Weight 80.739 kg Results - Lab Results Most recent lab results Calcium 9.0 mg/dL (8.4-10.2) 01/23/17 06:26 Phosphorus 5.6 mg/dL (2.5-4.5) H 01/23/17 06:26 Magnesium 1.7 mg/dL (1.6-2.3) 01/23/17 06:26 01/23/17 06:26 01/23/17 06:26 Assessment and Plan Plan: Assessment: #1. Nonoliguric acute kidney injury mostly prerenal from vomiting and poor oral intake. Creatinine was 1.6 on admission and is down to 1.38. No evidence of hydronephrosis. #2. Chronic kidney disease stage III secondary to non-recovered ATN from septic shock with baseline creatinine in the range of 1.4-1.6. #3. Small bowel obstruction with NG tube in place. Plan: Continue normal saline to be run at 100 mL an hour. Surgery following. Potential intervention later today. Avoid nephrotoxic agents and hypotensive episodes. Repeat electrolytes in the morning. Thank you for the consultation. I will continue to follow the patient with you during his hospital stay.
--- NOTE | 2017-01-23 11:17 | P.GSHP ---
History of Present Illness H&P Date: 01/23/17 Chief Complaint: Abdominal pain nausea vomiting 61-year-old male presented to the emergency room with a chief complaint of developing sudden onset of "the worse abdominal pain ever experienced". Patient stated the pain came on suddenly diffuse abdominal pain cramping with nausea vomiting could not keep any fluids down. Patient states he had one bowel movement. Was not experiencing any difficulty in urinating. Patient does give a history of developing septic shock needing to be transferred from [facility] in June 2016 to [facility] in [place] did undergo a cholecystectomy With a liver resection. Additionally patient did develop an acute kidney injury did require hemodialysis. Patient stated that he did receive hemodialysis for 4-5 months but did regain his renal function dialysis has been stopped. Patient states he has had poor oral intake in the last 24 hours secondary to the nausea with the active emesis. Patient continues to experience diffuse abdominal pain more on the left lower quadrant radiating across the lower abdominal wall In the emergency room the CAT scan of the abdomen pelvis without IV contrast did show dilated loops of the proximal small bowel with a transition point in the anterior left lower pelvis findings consistent with a small bowel obstruction. - Review of Systems Comment: Essentially unremarkable except as mentioned in the present illness Past Medical History Past Medical History: Atrial Fibrillation, Heart Failure, COPD, Diabetes Mellitus, Deep Vein Thrombosis (DVT), GERD/Reflux, Hyperlipidemia, Hypertension , Sleep Apnea/CPAP/BIPAP Additional Past Medical History / Comment(s): Other HX: Chronic hypoxic respiratory failure and the patient OXYGEN dependent between 3-1/2-4 L prn and at night, IDDM type II, paroxysmal AFIB, alcoholism, diverticulosis, obstuctive sleep apnea but no Cpap since wt loss, sinusitis, neuropathy bilateral feet. History of Any Multi-Drug Resistant Organisms: None Reported Past Surgical History: Cholecystectomy, Heart Catheterization Additional Past Surgical History / Comment(s): colonoscopy x 3, eyelid surgery bilaterally, cardiac cath without intervention, partial liver removed Past Anesthesia/Blood Transfusion Reactions: Postoperative Nausea & Vomiting ( PONV) Additional Past Anesthesia/Blood Transfusion Reaction / Comment(s): Pt states he has had PONV with gas only. Past Psychological History: Anxiety, Depression, Panic Disorder Additional Psychological History / Comment(s): He uses no assistive device. He drives. Smoking Status: Current every day smoker Past Alcohol Use History: None Reported Additional Past Alcohol Use History / Comment(s): PT states he currently smokes 10 cigarettes daily. Pt states he has not had an alcoholic drink since 04/2016. Hx of alcoholism. He has hx of DTs. Past Drug Use History: None Reported Additional Drug Use History / Comment(s): Pt states in the 1970's and s he used a variety of drugs (unable to state which ones) but has not used any since. - Past Family History Mother Family Medical History: Thyroid Disorder Additional Family Medical History / Comment(s): Mother is 86 yrs. old. Father Additional Family Medical History / Comment(s): Father of diverticulitis, peritonitis at the age of 35yrs. Medications and Allergies Home Medications Medication Instructions Recorded Confirmed Type Budesonide-Formot 160-4.5 Mcg 2 puff INHALATION RT-BID 11/29/13 01/23/17 History [Symbicort 160-4.5 Mcg Inhaler] LORazepam [Ativan] 1 mg PO Q8H PRN #20 tab 12/31/15 01/23/17 Rx Tamsulosin [Flomax] 0.4 mg PO DAILY 06/23/16 01/23/17 History Acamprosate Calcium [Campral] 666 mg PO TID-W/MEALS 11/16/16 01/23/17 History Aspirin EC [Ecotrin Low Dose] 81 mg PO DAILY 11/16/16 01/23/17 History Insulin Aspart [NovoLOG Flexpen] See Protocol SQ AC-TID 11/16/16 01/23/17 History Ipratropium Nebulized [Atrovent 0.5 mg INHALATION RT-Q4H PRN 11/16/16 01/23/17 History Nebulized] Lidocaine 5% Patch [Lidoderm] 1 patch TOPICAL DAILY PRN 11/16/16 01/23/17 History Sevelamer [Renvela] 800 mg PO TID-W/MEALS 11/16/16 01/23/17 History Allergies Allergy/AdvReac Type Severity Reaction Status Date / Time No Known Allergies Allergy Verified 01/22/17 23:30 Surgical - Exam Vital Signs Temp Pulse Resp BP Pulse Ox 98.0 F 56 L 20 155/88 97 01/22/17 21:51 01/22/17 21:51 01/22/17 21:51 01/22/17 21:51 01/22/17 21:51 GENERAL APPEARANCE: 61-year-old male looking older than stated age reports a nausea sensation did have an emesis of bile 100ml patient is alert, oriented 3 VITAL SIGNS: Reviewed HEENT: Head is normocephalic and atraumatic. Pupils are equal and reactive. The nares are patent. Oropharynx is clear without lesions. NECK: Supple without lymphadenopathy. Traches midline. HEART: S1, S2. Regular rate and rhythm. Currently denying chest pain twelve- lead EKG sinus LUNGS: Posterior diminished at the bases no wheezing no cough noted nasal cannula 3 L sats are 91% ABDOMEN: Well-healed surgical scar to the abdominal wall positive diffuse tenderness a few hypoactive bowel tones present urinating no difficulty no stool. No peritoneal signs. No palpable organomegaly or masses. Patient reports nausea and did vomit about 100ml of bile EXTREMITIES: Normal skin color and turgor. No cyanosis, rash, ulceration, clubbing or edema. Radial pedal pulses are 2/4 bilaterally. NEUROLOGICAL: No focal deficits. Strength and sensation are grossly intact. Results - Labs 01/23/17 06:26 01/23/17 06:26 Abnormal Lab Results - Last 24 Hours (Table) 01/22/17 01/22/17 01/22/17 Range/Units 22:53 22:53 22:53 WBC 19.5 H (3.8-10.6) k/uL RBC 4.09 L (4.30-5.90) m/uL Hgb 12.5 L (13.0-17.5) gm/dL Hct 37.3 L (39.0-53.0) % RDW 16.6 H (11.5-15.5) % Neutrophils # 15.4 H (1.3-7.7) k/uL Sodium 136 L (137-145) mmol/L Potassium 5.4 H (3.5-5.1) mmol/L BUN 52 H (9-20) mg/dL Creatinine 1.60 H (0.66-1.25) mg/dL Glucose 194 H (74-99) mg/dL POC Glucose (mg/dL) (75-99) mg/dL Phosphorus (2.5-4.5) mg/dL Alkaline Phosphatase 136 H (38-126) U/L CK-MB (CK-2) 4.2 H* (0.0-2.4) ng/mL 01/23/17 01/23/17 01/23/17 Range/Units 06:26 06:26 06:44 WBC 10.7 H (3.8-10.6) k/uL RBC 3.78 L (4.30-5.90) m/uL Hgb 11.4 L (13.0-17.5) gm/dL Hct 35.3 L (39.0-53.0) % RDW 16.4 H (11.5-15.5) % Neutrophils # 8.2 H (1.3-7.7) k/uL Sodium (137-145) mmol/L Potassium (3.5-5.1) mmol/L BUN 44 H (9-20) mg/dL Creatinine 1.38 H (0.66-1.25) mg/dL Glucose 148 H (74-99) mg/dL POC Glucose (mg/dL) 144 H (75-99) mg/dL Phosphorus 5.6 H (2.5-4.5) mg/dL Alkaline Phosphatase (38-126) U/L CK-MB (CK-2) (0.0-2.4) ng/mL Diabetes panel 01/22/17 01/23/17 Range/Units 22:53 06:26 Sodium 136 L 140 (137-145) mmol/L Potassium 5.4 H 5.1 (3.5-5.1) mmol/L Chloride 102 107 (98-107) mmol/L Carbon Dioxide 23 27 (22-30) mmol/L BUN 52 H 44 H (9-20) mg/dL Creatinine 1.60 H 1.38 H (0.66-1.25) mg/dL Glucose 194 H 148 H (74-99) mg/dL Calcium 9.8 9.0 (8.4-10.2) mg/dL AST 26 (17-59) U/L ALT 27 (21-72) U/L Alkaline Phosphatase 136 H (38-126) U/L Total Protein 7.1 (6.3-8.2) g/dL Albumin 4.3 (3.5-5.0) g/dL Calcium panel 01/22/17 01/23/17 Range/Units 22:53 06:26 Calcium 9.8 9.0 (8.4-10.2) mg/dL Phosphorus 4.4 5.6 H (2.5-4.5) mg/dL Albumin 4.3 (3.5-5.0) g/dL Pituitary panel 01/22/17 01/23/17 Range/Units 22:53 06:26 Sodium 136 L 140 (137-145) mmol/L Potassium 5.4 H 5.1 (3.5-5.1) mmol/L Chloride 102 107 (98-107) mmol/L Carbon Dioxide 23 27 (22-30) mmol/L BUN 52 H 44 H (9-20) mg/dL Creatinine 1.60 H 1.38 H (0.66-1.25) mg/dL Glucose 194 H 148 H (74-99) mg/dL Calcium 9.8 9.0 (8.4-10.2) mg/dL Adrenal panel 01/22/17 01/23/17 Range/Units 22:53 06:26 Sodium 136 L 140 (137-145) mmol/L Potassium 5.4 H 5.1 (3.5-5.1) mmol/L Chloride 102 107 (98-107) mmol/L Carbon Dioxide 23 27 (22-30) mmol/L BUN 52 H 44 H (9-20) mg/dL Creatinine 1.60 H 1.38 H (0.66-1.25) mg/dL Glucose 194 H 148 H (74-99) mg/dL Calcium 9.8 9.0 (8.4-10.2) mg/dL Total Bilirubin 0.4 (0.2-1.3) mg/dL AST 26 (17-59) U/L ALT 27 (21-72) U/L Alkaline Phosphatase 136 H (38-126) U/L Total Protein 7.1 (6.3-8.2) g/dL Albumin 4.3 (3.5-5.0) g/dL Assessment and Plan Plan: Impression Present on admission acute onset intractable nausea vomiting diffuse abdominal pain suspect due to a small bowel obstruction Present on admission acute kidney injury on chronic kidney disease Chronic kidney disease stage III History of a cholecystectomy with resection liver June 2016 COPD with no evidence of an exacerbation History of alcoholism in remission last drink April 2016 History of paroxysmal atrial fibrillation twelve-lead EKG 23 of January sinus bradycardia Hyperlipidemia Active nicotine dependency greater than 20 year history 1 pack a day History of diverticulosis Present on admission leukocytosis suspect reactive Present on admission hypo-magnesium Plan Patient is adamant about not undergoing surgery until his daughter is present who is coming in from [place] this morning Await medicines recommendations before proceeding with surgery Follow-up on pending chest x-ray DVT and GI prophylaxis no Lovenox Nasal gastric tube to intermittent suction IV fluid at 100 and hour Repeat labs Await for daughter to arrive from [place] surgeon will discuss treatment options and plan per patient's request The above impression and plan of care have been discussed and directed by signing physician. Carla Karimi nurse practitioner acting as scribe for signing physician.
--- NOTE | 2017-01-23 11:25 | XR ---
EXAMINATION TYPE: XR chest 2V DATE OF EXAM: 01/23/2017 COMPARISON: Chest x-ray November 16, 2016 HISTORY: NG tube placement, preop clearance. TECHNIQUE: Frontal and lateral views of the chest are obtained. FINDINGS: New nasogastric tube projects below diaphragm. There is chronic parenchymal change without suspicious new focal air space opacity, pleural effusion, or pneumothorax seen. The cardiac silhoue tte size remains within normal limits with atherosclerotic thoracic aorta. The osseous structures a re demineralized. Interval removal of left internal jugular central venous catheter noted. Overlying safety pin left mid chest noted anteriorly. IMPRESSION: New nasogastric tube is satisfactory in position. Chronic parenchymal changes without ac [place] pulmonary process.
[2017-01-23] MEDS ORDERED: IPRATROPIUM 0.5 MG/2.5 ML NEBU INHALATION PRN (12:13)
[2017-01-23] MEDS ORDERED: LIDOCAINE 5% PATCH TOPICAL PRN (12:13)
--- NOTE | 2017-01-23 12:13 | P.CONS ---
History of Present Illness - Reason for Consult Preoperative clearance - History of Present Illness Patient is 61-year-old gentleman with the abdominal surgeries in the past after he recently in [facility] for cholecystitis and patient evidently had septic shock at that time. Patient ended up on hemodialysis at that time. Comes in with nausea vomiting abdominal pain for which patient was admitted to surgical service for partial small bowel obstruction which was evidenced on the CAT scan of the abdomen. Patient was temporally on hemodialysis and baseline kidney creatinine is around 1.6. Patient is not dependent on ADLs and IADLs, had good functionality. His only risk factor for surgery days smoking smokes less than a pack a day has been smoking for long time. Patient had a normal ejection fraction the past although it was documented in the history that he had can start failure I did not see any evidence for that. Patient denied any COPD history. Denied any chest pain presently never had any coronary artery disease. Patient's EKG did show some nonspecific ST-T wave changes, may benefit from echocardiogram if we have time for that or rales patient is low to intermediate risk for surgery and can go first goiter per surgery for that is needed. Review of Systems REVIEW OF SYSTEMS: CONSTITUTIONAL: No fever, no malaise, no fatigue. HEENT: No recent visual problems or hearing problems. Denied any sore throat. CARDIOVASCULAR: No chest pain, orthopnea, PND, no palpitations, no syncope. PULMONARY: No shortness of breath, no cough, no hemoptysis. GASTROINTESTINAL: As described in HPI NEUROLOGICAL: No headaches, no weakness, no numbness. HEMATOLOGICAL: Denies any bleeding or petechiae. GENITOURINARY: Denies any burning micturition, frequency, or urgency. MUSCULOSKELETAL/RHEUMATOLOGICAL: Denies any joint pain, swelling, or any muscle pain. ENDOCRINE: Denies any polyuria or polydipsia. The rest of the 14-point review of systems is negative. Past Medical History Past Medical History: Atrial Fibrillation, Heart Failure, COPD, Diabetes Mellitus, Deep Vein Thrombosis (DVT), GERD/Reflux, Hyperlipidemia, Hypertension , Sleep Apnea/CPAP/BIPAP Additional Past Medical History / Comment(s): Other HX: Chronic hypoxic respiratory failure and the patient OXYGEN dependent between 3-1/2-4 L prn and at night, IDDM type II, paroxysmal AFIB, alcoholism, diverticulosis, obstuctive sleep apnea but no Cpap since wt loss, sinusitis, neuropathy bilateral feet. History of Any Multi-Drug Resistant Organisms: None Reported Past Surgical History: Cholecystectomy, Heart Catheterization Additional Past Surgical History / Comment(s): colonoscopy x 3, eyelid surgery bilaterally, cardiac cath without intervention, partial liver removed Past Anesthesia/Blood Transfusion Reactions: Postoperative Nausea & Vomiting ( PONV) Additional Past Anesthesia/Blood Transfusion Reaction / Comm: Pt states he has had PONV with gas only. Past Psychological History: Anxiety, Depression, Panic Disorder Additional Psychological History / Comment(s): He uses no assistive device. He drives. Smoking Status: Current every day smoker Past Alcohol Use History: None Reported Additional Past Alcohol Use History / Comment(s): PT states he currently smokes 10 cigarettes daily. Pt states he has not had an alcoholic drink since 04/2016. Hx of alcoholism. He has hx of DTs. Past Drug Use History: None Reported Additional Drug Use History / Comment(s): Pt states in the 1970's and s he used a variety of drugs (unable to state which ones) but has not used any since. - Past Family History Mother Family Medical History: Thyroid Disorder Additional Family Medical History / Comment(s): Mother is 86 yrs. old. Father Additional Family Medical History / Comment(s): Father of diverticulitis, peritonitis at the age of 35yrs. Medications and Allergies Home Medications Medication Instructions Recorded Confirmed Type Budesonide-Formot 160-4.5 Mcg 2 puff INHALATION RT-BID 11/29/13 01/23/17 History [Symbicort 160-4.5 Mcg Inhaler] LORazepam [Ativan] 1 mg PO Q8H PRN #20 tab 12/31/15 01/23/17 Rx Tamsulosin [Flomax] 0.4 mg PO DAILY 06/23/16 01/23/17 History Acamprosate Calcium [Campral] 666 mg PO TID-W/MEALS 11/16/16 01/23/17 History Aspirin EC [Ecotrin Low Dose] 81 mg PO DAILY 11/16/16 01/23/17 History Insulin Aspart [NovoLOG Flexpen] See Protocol SQ AC-TID 11/16/16 01/23/17 History Ipratropium Nebulized [Atrovent 0.5 mg INHALATION RT-Q4H PRN 11/16/16 01/23/17 History Nebulized] Lidocaine 5% Patch [Lidoderm] 1 patch TOPICAL DAILY PRN 11/16/16 01/23/17 History Sevelamer [Renvela] 800 mg PO TID-W/MEALS 11/16/16 01/23/17 History Allergies Allergy/AdvReac Type Severity Reaction Status Date / Time No Known Allergies Allergy Verified 01/22/17 23:30 Physical Exam Vitals: Vital Signs Temp Pulse Pulse Resp BP BP Pulse Ox 01/23/17 07:00 97.7 F 62 16 110/54 91 L 01/23/17 01:47 96.9 F L 71 16 126/64 01/23/17 01:30 98.2 F 84 16 128/88 100 01/23/17 01:20 86 18 113/58 100 01/23/17 00:35 69 20 113/58 93 L 01/22/17 23:05 60 16 138/68 100 01/22/17 22:23 96.8 F L 59 L 22 138/68 94 L 01/22/17 21:51 98.0 F 56 L 20 155/88 97 Intake and Output 01/22/17 01/23/17 01/23/17 22:59 06:59 14:59 Intake Total 800 Balance 800 Intake: Intake, IV Titration 800 Amount Sodium Chloride 0.9% 1, 800 000 ml @ 100 mls/hr IV . Q10H ONE Rx#:[id number] Other: Voiding Method Toilet # Voids 1 Weight 80.739 kg PHYSICAL EXAMINATION: GENERAL: The patient is alert and oriented x3, not in any acute distress. Well developed, well nourished. HEENT: Pupils are round and equally reacting to light. EOMI. No scleral icterus. No conjunctival pallor. Normocephalic, atraumatic. No pharyngeal erythema. No thyromegaly. CARDIOVASCULAR: S1 and S2 present. No murmurs, rubs, or gallops. PULMONARY: Chest is clear to auscultation, no wheezing or crackles. ABDOMEN: Soft, nontender, NG tube in place, sluggish bowel sounds no palpable organomegaly MUSCULOSKELETAL: No joint swelling or deformity. EXTREMITIES: No cyanosis, clubbing, or pedal edema. NEUROLOGICAL: Gross neurological examination did not reveal any focal deficits. SKIN: No rashes. Results CBC & Chem 7: 01/23/17 06:26 01/23/17 06:26 Labs: Abnormal Lab Results - Last 24 Hours (Table) 01/22/17 01/22/17 01/22/17 Range/Units 22:53 22:53 22:53 WBC 19.5 H (3.8-10.6) k/uL RBC 4.09 L (4.30-5.90) m/uL Hgb 12.5 L (13.0-17.5) gm/dL Hct 37.3 L (39.0-53.0) % RDW 16.6 H (11.5-15.5) % Neutrophils # 15.4 H (1.3-7.7) k/uL Sodium 136 L (137-145) mmol/L Potassium 5.4 H (3.5-5.1) mmol/L BUN 52 H (9-20) mg/dL Creatinine 1.60 H (0.66-1.25) mg/dL Glucose 194 H (74-99) mg/dL POC Glucose (mg/dL) (75-99) mg/dL Phosphorus (2.5-4.5) mg/dL Alkaline Phosphatase 136 H (38-126) U/L CK-MB (CK-2) 4.2 H* (0.0-2.4) ng/mL 01/23/17 01/23/17 01/23/17 Range/Units 06:26 06:26 06:44 WBC 10.7 H (3.8-10.6) k/uL RBC 3.78 L (4.30-5.90) m/uL Hgb 11.4 L (13.0-17.5) gm/dL Hct 35.3 L (39.0-53.0) % RDW 16.4 H (11.5-15.5) % Neutrophils # 8.2 H (1.3-7.7) k/uL Sodium (137-145) mmol/L Potassium (3.5-5.1) mmol/L BUN 44 H (9-20) mg/dL Creatinine 1.38 H (0.66-1.25) mg/dL Glucose 148 H (74-99) mg/dL POC Glucose (mg/dL) 144 H (75-99) mg/dL Phosphorus 5.6 H (2.5-4.5) mg/dL Alkaline Phosphatase (38-126) U/L CK-MB (CK-2) (0.0-2.4) ng/mL Assessment and Plan Plan: #1 partial small bowel obstruction: Being managed by surgical services regarding preoperative clearance patient is low to intermediate risk for surgery will opt echocardiogram if we have enough time for that or else patient can go in and get the surgery done if that is needed. #2 history of septic shock in the past leading to hemodialysis dependent: Patient had baseline kidney function of 1.3 patient is pretty close to his baseline kidney function patient does have some acute renal failure secondary to intravascular depletion for which patient is receiving 100 mL of IV normal saline was a valid by nephrology patient chronic kidney disease stage III is a residual kidney dysfunction from his septic shock in the past. #3 type 2 diabetes mellitus: Continue sliding scale insulin. #4 COPD without any acute exacerbation #5 history of atrial fibrillation, presently rate controlled #6 history of sleep apnea will continue his CPAP machine. 7 and prostatic hypertrophy #8 hyperphosphatasia since patient is going to be nothing by mouth mostly is probably okay to leave 7 limited for now in spite of 5.4 phosphorus level
[2017-01-23 12:28] LABS: Hemoglobin A1C 6.6 % (4.2-6.1)
[2017-01-23 12:30] LABS: Appearance,Urine Clear (Clear); Bilirubin,Urine Negative (Negative); Glucose,Urine (UA) Negative (Negative); Ketones,Urine Negative (Negative); Leukocyte Esterase,Urine Negative (Negative); Nitrite,Urine Negative (Negative); Protein,Urine Negative (Negative); Specific Gravity,Urine 1.007 (1.001-1.035); UA Billing (MACRO vs. MICRO) CHEM; Urobilinogen,Urine <2.0 mg/dL (<2.0)
[2017-01-23 12:49] LABS: Glucose,Whole Blood 150 mg/dL (75-99)
[2017-01-23] MEDS: INSULIN LISPRO (humaLOG) 300 UNIT/3 ML VIAL SQ SCH ×2 (15:06→19:17)
[2017-01-23] MEDS: ACAMPROSATE CALCIUM 333 MG TABLET.DR PO SCH ×2 (15:06→17:53)
[2017-01-23] MEDS: SODIUM CHLORIDE 0.9% 1,000 ML IV SCH (15:06)
[2017-01-23] MEDS ORDERED: HEPARIN SODIUM,PORCINE 5,000 UNIT/ML 1 ML VIAL SQ ONE (18:32)
--- NOTE | 2017-01-23 18:32 | P.PN ---
Progress Note - Text Patient case discussed with his family, and they are in agreement with surgery. patient with a high grade small bowel obstruction, of questionable eitology. He and family understand the riska nd benefits and wish to proceed. They understand he may require and ostomy, and risk include but are not limited to bleeding, infection, and reaction to the anesthetic.
[2017-01-23] MEDS ORDERED: fentaNYL (PF) 50 MCG/ML 2 ML AMP IV ONE (18:34)
[2017-01-23] MEDS ORDERED: ePHEDrine SULFATE/0.9% NACL/PF 50 MG/5 ML SYRINGE IV ONE (18:36)
[2017-01-23] MEDS ORDERED: GLYCOPYRROLATE 0.2 MG/ML 2 ML VIAL ONE (18:36)
[2017-01-23] MEDS ORDERED: LACTATED RINGERS 1,000 ML IV ONE ×2 (18:36→19:55)
[2017-01-23] MEDS ORDERED: LIDOCAINE 1% INJ 10MG/ML (20 ML MDV) ONE (18:36)
[2017-01-23] MEDS ORDERED: MIDAZOLAM 2 MG/2 ML VIAL ONE (18:36)
[2017-01-23] MEDS ORDERED: ROCURONIUM BROMIDE 10 MG/ML 10 ML VIAL IV ONE (18:36)
[2017-01-23] MEDS ORDERED: fentaNYL (PF) 50 MCG/ML 2 ML AMP ONE (18:36)
[2017-01-23] MEDS ORDERED: PROPOFOL 10 MG/ML 20 ML VIAL IV ONE (18:36)
[2017-01-23] MEDS ORDERED: PHENYLEPHRINE-0.9% NACL SYG 1 MG/10 ML SYRINGE ONE (18:36)
[2017-01-23] MEDS ORDERED: HEPARIN SODIUM,PORCINE 5,000 UNIT/ML 1 ML VIAL ONE (18:36)
[2017-01-23] MEDS ORDERED: ONDANSETRON 4 MG/2 ML VIAL ONE (18:36)
[2017-01-23] MEDS ORDERED: SUCCINYLCHOLINE CHLORIDE 100 MG/5 ML SYR IV ONE (18:36)
[2017-01-23] MEDS ORDERED: NEOSTIGMINE 1 MG/ML 10 ML VIAL ONE (18:36)
[2017-01-23] MEDS ORDERED: BUPIVACAINE (PF) 0.5% 50 ML, HYDROMORPHONE (PF) 5 MG in SODIUM CHLORIDE 0.9% 200 ML EPIDURAL PRN (18:54)
[2017-01-23] MEDS ORDERED: NALOXONE 0.4 MG/ML 1 ML VIAL IV PRN ×2 (18:54→20:41)
[2017-01-23] MEDS: SYMBICORT 160-4.5 MCG INHALER INHALATION SCH (19:38)
[2017-01-23] MEDS ORDERED: HYDROmorphone 1 MG/ML 1 ML SYRINGE IVP PRN (20:31)
--- NOTE | 2017-01-23 20:41 | P.OP ---
Date of Procedure: 01/23/17 Preoperative Diagnosis: Small bowel obstruction Postoperative Diagnosis: Extensive adhesions, small bowel obstruction Procedure(s) Performed: Exploratory laparotomy, extensive lysis of adhesions, appendectomy Anesthesia: CM Surgeon: Laura Ramirez Estimated Blood Loss (ml): 20 IV fluids (ml): 1,200 Urine output (ml): 400 Pathology: none sent Condition: stable Disposition: PACU Indications for Procedure: Small bowel obstruction Operative Findings: Extensive adhesions with small bowel obstruction Description of Procedure: Mr. Ragsdale is a 61-year-old gentleman who presented to the emergency room with abdominal discomfort and a CAT scan showing a distal small bowel obstruction. He has had prior abdominal surgery including a cholecystectomy and partial liver resection for an abscess in the liver. The patient states that his pain is crampy and persistent. Mr. Ragsdale was taken to the operating room and following induction of general anesthesia the abdomen was prepped and draped in a sterile fashion. A midline abdominal incision was made and carried through the skin and subcutaneous tissue to the fascia the intra-abdominal wall. The fascia was elevated it was opened and the peritoneal cavity was entered. The patient was noted to have third spaced fluid and edema of the dilated bowel wall. He was noted to have very dilated proximal small bowel and the more distal small bowel was noted to be very decompressed and small in caliber. The patient was noted to have extensive adhesions. Approximately an hour and a half of time was utilized to take down adhesions. Adhesions were taken down from the area of the ligament of Treitz throughout the jejunum and ileum to the area of the terminal ileum and the cecum. The cecum was elevated and the appendix was noted to be very long and adhered down into the pelvic sidewall. Decision was made to do an appendectomy. The mesoappendix was divided using the LigaSure. This was done to the base of the appendix. The base of the appendix was clamped using a straight clamp. It was then ligated using 2-0 sutures together. A stick suture was then placed distal to this. Straight clamp was placed across to the appendix which was removed. Following this the bowel was again run from the area of the ligament of Treitz to the cecum. No evidence of any rectal wall injury was identified and the caliber change resolved with taking down of the adhesions. The patient was noted to have diverticuli but no evidence of any perforation. The area of the liver could not be palpated secondary to dense adhesions over the liver. Following this the abdomen was well irrigated. The intra-abdominal wall was closed using double-stranded PDS with interrupted 0 Prolene sutures. The subcutaneous tissue was irrigated and Vicryl sutures were placed. The skin was closed using iris. A PREVENA wound VAC was placed All instrument and sponge counts were correct at the end of the case. The patient tolerated the procedure in stable condition.
[2017-01-23 21:17] LABS: Glucose,Whole Blood 164 mg/dL (75-99)
[2017-01-23] MEDS: PIPERACILLIN-TAZOBACTAM 3.375 GM in DEXTROSE/WATER 1 50ML.BAG IVPB SCH (22:07)
[2017-01-23] MEDS: DEXTROSE 5%-0.45% NACL 1,000 ML IV SCH (22:08)
[2017-01-23] MEDS: BENZOCAINE/MENTHOL LOZENG 1 EACH LOZENGE MUCOUS MEM PRN (23:18)
[2017-01-23] MEDS: HEPARIN SODIUM,PORCINE 5,000 UNIT/ML 1 ML VIAL SQ SCH (23:27)
[2017-01-24] MEDS: PIPERACILLIN-TAZOBACTAM 3.375 GM in DEXTROSE/WATER 1 50ML.BAG IVPB SCH ×3 (00:10→16:16)
[2017-01-24] MEDS: INSULIN LISPRO (humaLOG) 300 UNIT/3 ML VIAL SQ SCH ×4 (00:10→18:20)
[2017-01-24 00:23] LABS: Glucose,Whole Blood 142 mg/dL (75-99)
[2017-01-24] MEDS: SODIUM CHLORIDE 0.9% 1,000 ML IV SCH ×3 (03:11→18:20)
[2017-01-24] MEDS: BENZOCAINE/MENTHOL LOZENG 1 EACH LOZENGE MUCOUS MEM PRN ×2 (04:05→22:59)
[2017-01-24] MEDS: PANTOPRAZOLE 40 MG/10 ML VIAL IV SCH (04:33)
[2017-01-24 06:05] LABS: Glucose,Whole Blood 162 mg/dL (75-99)
[2017-01-24] MEDS: ASPIRIN 81 MG PO SCH (07:40)
[2017-01-24] MEDS: TAMSULOSIN 0.4 MG CAP.ER.24H PO SCH (07:41)
[2017-01-24] MEDS: ACAMPROSATE CALCIUM 333 MG TABLET.DR PO SCH ×3 (07:41→16:35)
[2017-01-24 07:45] LABS: Anisocytosis Slight; Basophils % (A) 0 %; CHCM 31.3; Eosinophils % (A) 0 %; HCT 36.7 % (39.0-53.0); HDW 2.38; HGB 11.2 gm/dL (13.0-17.5); Luc # (Auto) 0.05; Luc % (Auto) 1; Lymphocytes # (A) 0.6 k/uL (1.0-4.8); Lymphocytes % (A) 7 %; MCH 29.3 pg (25.0-35.0); MCHC 30.4 g/dL (31.0-37.0); MCV 96.3 fL (80.0-100.0); Mean Platelet Volume 7.9; Monocytes # (A) 0.4 k/uL (0-1.0); Monocytes % (A) 5 %; Neutrophils # (A) 7.6 k/uL (1.3-7.7); Neutrophils % (A) 87 %; RBC 3.81 m/uL (4.30-5.90); WBC 8.7 k/uL (3.8-10.6); WBC (Perox) 9.46
[2017-01-24] MEDS: SYMBICORT 160-4.5 MCG INHALER INHALATION SCH ×2 (08:01→20:39)
[2017-01-24 08:02] LABS: ALT 28 U/L (21-72); AST 18 U/L (17-59); Alkaline Phosphatase 56 U/L (38-126); Anion Gap 4 mmol/L; Blood Urea Nitrogen 26 mg/dL (9-20); Calcium 8.8 mg/dL (8.4-10.2); Carbon Dioxide 26 mmol/L (22-30); Chloride 111 mmol/L (98-107); Glucose 178 mg/dL (74-99); Non-African American GFR(MDRD) 55 (>60 ml/min/1.73 sqM); Potassium 4.6 mmol/L (3.5-5.1); Sodium 141 mmol/L (137-145); Total Bilirubin 0.5 mg/dL (0.2-1.3); Total Protein 5.2 g/dL (6.3-8.2)
[2017-01-24] MEDS: HEPARIN SODIUM,PORCINE 5,000 UNIT/ML 1 ML VIAL SQ SCH ×3 (08:25→16:21)
[2017-01-24] MEDS: DEXTROSE 5%-0.45% NACL 1,000 ML IV SCH ×2 (08:33→16:35)
[2017-01-24] MEDS: ONDANSETRON 4 MG/2 ML VIAL IVP PRN ×3 (10:16→20:42)
--- NOTE | 2017-01-24 10:44 | P.PN ---
Progress Note - Text 0731 Anesthesia POD 1. Status Post exploratory laparotomy with extensive lysis of adhesions under general endotracheal anesthesia with an epidrual catheter placed at T12 for post surgical pain releif. VAS (2, 4) with Bupivicaine 0.1% % and Dilaudid 20 mcg / cc running at 9 cc / hr. Lower extremity strength (4/4) . Minimal sedation. Site looks OK.
--- NOTE | 2017-01-24 10:49 | P.PN ---
Subjective Patient seen in follow-up for acute kidney injury on chronic kidney disease. Renal function has improved with creatinine down to 1.32 today. Patient does have chronic kidney disease stage III with baseline creatinine near 1.4 secondary to nonrecovered ATN from septic shock. He did require hemodialysis for 4-5 months but was discontinued as renal function recovered. Patient presented with abdominal pain and was noted to have a small bowel obstruction. He underwent exploratory laparotomy with appendectomy and lysis of adhesions on January 23. Currently has an NG tube in place. He is resting in bed. Still not passing gas. Denies chest pain or shortness of breath. Admits to good urine output. Vital signs are stable. General: The patient appeared well nourished and normally developed. NG tube in place. HEENT: Head exam is unremarkable. Neck is without jugular venous distension. LUNGS: Lungs are clear to auscultation and percussion. Breath sounds decreased. HEART: Rate and Rhythm are regular. First and second heart sounds normal. No murmurs, rubs or gallops. ABDOMEN: Abdominal exam reveals decreased bowel sounds. Tender to palpation. EXTREMITITES: No clubbing, cyanosis, or edema. Objective - Vital Signs Vital signs: Vital Signs Temp 97.9 F 01/24/17 07:02 Pulse 69 01/24/17 09:50 Resp 20 01/24/17 07:02 BP 95/53 01/24/17 07:02 Pulse Ox 98 01/24/17 07:02 Intake & Output 01/23/17 01/24/17 01/24/17 18:59 06:59 18:59 Intake Total 1750 1300 Output Total 750 900 Balance 1000 400 Intake: IV 1000 450 Intake, IV Titration 750 800 Amount Dextrose 5%-0.45% NaCl 1, 800 000 ml @ 100 mls/hr IV . Q10H ASHISH Rx#:[id number] Sodium Chloride 0.9% 1, 750 000 ml @ 100 mls/hr IV . Q10H ONE Rx#:[id number] Oral 50 Output: Gastric Drainage 700 Urine 50 880 Estimated Blood Loss 20 Other: Voiding Method Indwelling Catheter Indwelling Catheter - Labs CBC & Chem 7: 01/24/17 06:56 01/24/17 06:56 Labs: Abnormal Lab Results - Last 24 Hours (Table) 01/23/17 01/23/17 01/23/17 Range/Units 06:26 12:29 21:12 RBC (4.30-5.90) m/uL Hgb (13.0-17.5) gm/dL Hct (39.0-53.0) % MCHC (31.0-37.0) g/dL RDW (11.5-15.5) % Plt Count (150-450) k/uL Lymphocytes # (1.0-4.8) k/uL Chloride (98-107) mmol/L BUN (9-20) mg/dL Creatinine (0.66-1.25) mg/dL Glucose (74-99) mg/dL POC Glucose (mg/dL) 150 H 164 H (75-99) mg/dL Hemoglobin A1c 6.6 H (4.2-6.1) % Total Protein (6.3-8.2) g/dL Albumin (3.5-5.0) g/dL 01/23/17 01/24/17 01/24/17 Range/Units 23:55 05:37 06:56 RBC (4.30-5.90) m/uL Hgb (13.0-17.5) gm/dL Hct (39.0-53.0) % MCHC (31.0-37.0) g/dL RDW (11.5-15.5) % Plt Count (150-450) k/uL Lymphocytes # (1.0-4.8) k/uL Chloride 111 H (98-107) mmol/L BUN 26 H (9-20) mg/dL Creatinine 1.32 H (0.66-1.25) mg/dL Glucose 178 H (74-99) mg/dL POC Glucose (mg/dL) 142 H 162 H (75-99) mg/dL Hemoglobin A1c (4.2-6.1) % Total Protein 5.2 L (6.3-8.2) g/dL Albumin 2.9 L (3.5-5.0) g/dL 01/24/17 Range/Units 06:56 RBC 3.81 L (4.30-5.90) m/uL Hgb 11.2 L (13.0-17.5) gm/dL Hct 36.7 L (39.0-53.0) % MCHC 30.4 L (31.0-37.0) g/dL RDW 17.0 H (11.5-15.5) % Plt Count 134 L (150-450) k/uL Lymphocytes # 0.6 L (1.0-4.8) k/uL Chloride (98-107) mmol/L BUN (9-20) mg/dL Creatinine (0.66-1.25) mg/dL Glucose (74-99) mg/dL POC Glucose (mg/dL) (75-99) mg/dL Hemoglobin A1c (4.2-6.1) % Total Protein (6.3-8.2) g/dL Albumin (3.5-5.0) g/dL Assessment and Plan Plan: Assessment: #1. Nonoliguric acute kidney injury mostly prerenal from vomiting and poor oral intake. Creatinine was 1.6 on admission and is down to 1.32. No evidence of hydronephrosis. Urinalysis is benign. #2. Chronic kidney disease stage III secondary to non-recovered ATN from septic shock with baseline creatinine in the range of 1.4-1.6. #3. Small bowel obstruction with NG tube in place, status post exploratory laparotomy with appendectomy and lysis of adhesions on January 23. Plan: Continue half normal saline to be run at 100 mL an hour. Surgery following. Avoid nephrotoxic agents and hypotensive episodes. Repeat electrolytes in the morning.
[2017-01-24 11:10] LABS: Glucose,Whole Blood 177 mg/dL (75-99)
--- NOTE | 2017-01-24 15:07 | P.PN ---
Subjective 7-year-old gentleman being seen on rounds this morning patient reports the pain medication effective for pain control. Patient is belching but is not passing gas rectally. Patient does have a nasal gastric tube in place connected to suction. A few hypoactive bowel tones noted Indwelling Werner catheter in place with adequate urine output epidural per anesthesia for pain control and place. Patient is postop on January 23 exploratory laparotomy extensive lessons of adhesions with an appendectomy for extensive adhesions with a small bowel obstruction. A prevena wound VAC was placed Objective - Vital Signs Vital signs: Vital Signs Temp 97.1 F L 01/24/17 10:59 Pulse 73 01/24/17 10:59 Resp 18 01/24/17 10:59 BP 93/53 01/24/17 10:59 Pulse Ox 95 01/24/17 10:59 Intake & Output 01/23/17 01/24/17 01/24/17 18:59 06:59 18:59 Intake Total 1750 1300 800 Output Total 750 900 Balance 1000 400 800 Intake: IV 1000 450 Intake, IV Titration 750 800 800 Amount Dextrose 5%-0.45% NaCl 1, 800 800 000 ml @ 100 mls/hr IV . Q10H ASHISH Rx#:[id number] Sodium Chloride 0.9% 1, 750 000 ml @ 100 mls/hr IV . Q10H ONE Rx#:[id number] Oral 50 Output: Gastric Drainage 700 Urine 50 880 Estimated Blood Loss 20 Other: Voiding Method Indwelling Catheter Indwelling Catheter - Exam physical exam 61-year-old male sitting up in bed nasal gastric tube connected to suction awake alert oriented 3 Lungs diminished at the bases otherwise adequate air movement on 4 L nasal cannula sats are 95% no cough noted Heart S1-S2 audible regular denying chest pain Abdomen dressing to surgical site dry iris in place suture line well approximated nasal gastric tube to suction indwelling Werner catheter in place a Prevena wound VAC in place Extremities no edema noted Venodyne's on bilateral lower extremities - Labs CBC & Chem 7: 01/24/17 06:56 01/24/17 06:56 Labs: Abnormal Lab Results - Last 24 Hours (Table) 01/23/17 01/23/17 01/24/17 Range/Units 21:12 23:55 05:37 RBC (4.30-5.90) m/uL Hgb (13.0-17.5) gm/dL Hct (39.0-53.0) % MCHC (31.0-37.0) g/dL RDW (11.5-15.5) % Plt Count (150-450) k/uL Lymphocytes # (1.0-4.8) k/uL Chloride (98-107) mmol/L BUN (9-20) mg/dL Creatinine (0.66-1.25) mg/dL Glucose (74-99) mg/dL POC Glucose (mg/dL) 164 H 142 H 162 H (75-99) mg/dL Total Protein (6.3-8.2) g/dL Albumin (3.5-5.0) g/dL 01/24/17 01/24/17 01/24/17 Range/Units 06:56 06:56 10:59 RBC 3.81 L (4.30-5.90) m/uL Hgb 11.2 L (13.0-17.5) gm/dL Hct 36.7 L (39.0-53.0) % MCHC 30.4 L (31.0-37.0) g/dL RDW 17.0 H (11.5-15.5) % Plt Count 134 L (150-450) k/uL Lymphocytes # 0.6 L (1.0-4.8) k/uL Chloride 111 H (98-107) mmol/L BUN 26 H (9-20) mg/dL Creatinine 1.32 H (0.66-1.25) mg/dL Glucose 178 H (74-99) mg/dL POC Glucose (mg/dL) 177 H (75-99) mg/dL Total Protein 5.2 L (6.3-8.2) g/dL Albumin 2.9 L (3.5-5.0) g/dL Assessment and Plan Plan: Impression Present on admission acute onset intractable nausea vomiting diffuse abdominal pain suspect due to a small bowel obstruction Present on admission acute kidney injury on chronic kidney disease Chronic kidney disease stage III History of a cholecystectomy with resection liver June 2016 COPD with no evidence of an exacerbation History of alcoholism in remission last drink April 2016 History of paroxysmal atrial fibrillation twelve-lead EKG 23 of January sinus bradycardia Hyperlipidemia Active nicotine dependency greater than 20 year history 1 pack a day History of diverticulosis Present on admission leukocytosis suspect reactive Present on admission hypo-magnesium Status post January 23 exploratory laparotomy extensive lysis of adhesions with small bowel obstruction, appendectomy Plan Continue postop surgical care Increase activity DVT and GI prophylaxis no Lovenox Nasal gastric tube to intermittent suction IV fluid at 100 and hour Repeat labs Epidural per anesthesia for pain control defer to Continue indwelling Werner catheter until the epidural is removed The above impression and plan of care have been discussed and directed by signing physician. Carla Karimi nurse practitioner acting as scribe for signing physician.
[2017-01-24 18:19] LABS: Glucose,Whole Blood 141 mg/dL (75-99)
--- NOTE | 2017-01-24 21:16 | XR ---
EXAMINATION TYPE: XR abdomen 1V DATE OF EXAM: 01/24/2017 COMPARISON: NONE HISTORY: Pain TECHNIQUE: Single supine KUB image of the abdomen is obtained FINDINGS: NG tube is seen with its distal tip at the level of the GE junction and should be advanced. Midline s kin iris are identified. Small bowel demonstrates no evidence for dilatation or air fluid levels. Gas and fecal material is seen in non-distended colon. No convincing evidence for pneumoperitoneum. No unusual calcifications. The lung bases are clear. The osseous structures are intact. IMPRESSION: 1. Overall nonobstructive bowel gas pattern. 2. Postoperative changes as noted. NG tube should be advanced.
--- NOTE | 2017-01-24 21:17 | XR ---
EXAMINATION TYPE: XR chest 1V portable DATE OF EXAM: 01/24/2017 HISTORY: Shortness of breath. COMPARISON: 01/23/17 TECHNIQUE: Single view of the chest is submitted. FINDINGS: Demonstrated are scattered senescent parenchymal change. There is no evidence for focal infiltrate. Mild atelectasis right lung base. The heart is stable. Hilar and mediastinal structures are within normal limits. Degenerative changes are seen of the dorsal spine. IMPRESSION: 1. Chronic changes without evidence for acute pulmonary disease.
[2017-01-25 00:02] LABS: Glucose,Whole Blood 155 mg/dL (75-99)
[2017-01-25] MEDS: HEPARIN SODIUM,PORCINE 5,000 UNIT/ML 1 ML VIAL SQ SCH ×3 (00:05→20:00)
[2017-01-25] MEDS: INSULIN LISPRO (humaLOG) 300 UNIT/3 ML VIAL SQ SCH ×4 (00:05→20:05)
[2017-01-25] MEDS: PIPERACILLIN-TAZOBACTAM 3.375 GM in DEXTROSE/WATER 1 50ML.BAG IVPB SCH ×3 (00:05→17:14)
[2017-01-25] MEDS: SODIUM CHLORIDE 0.9% 1,000 ML IV SCH ×2 (05:15→17:17)
[2017-01-25 05:51] LABS: Glucose,Whole Blood 167 mg/dL (75-99)
[2017-01-25] MEDS: DEXTROSE 5%-0.45% NACL 1,000 ML IV SCH ×2 (06:44→15:33)
[2017-01-25] MEDS: ONDANSETRON 4 MG/2 ML VIAL IVP PRN ×3 (07:15→19:44)
[2017-01-25] MEDS: PANTOPRAZOLE 40 MG/10 ML VIAL IV SCH (08:35)
[2017-01-25] MEDS: SYMBICORT 160-4.5 MCG INHALER INHALATION SCH ×2 (08:35→20:30)
[2017-01-25] MEDS ORDERED: BENZOCAINE SPRAY 1 SPRAY CAN ONE (08:43)
[2017-01-25] MEDS: ACAMPROSATE CALCIUM 333 MG TABLET.DR PO SCH ×3 (08:46→20:05)
[2017-01-25] MEDS: ASPIRIN 81 MG PO SCH (08:46)
[2017-01-25] MEDS: TAMSULOSIN 0.4 MG CAP.ER.24H PO SCH (08:47)
[2017-01-25] MEDS: HYDROmorphone 1 MG/ML 1 ML SYRINGE IVP PRN ×4 (10:00→23:05)
[2017-01-25] MEDS ORDERED: BENZOCAINE SPRAY 1 SPRAY CAN MUCOUS MEM PRN (11:19)
--- NOTE | 2017-01-25 12:10 | P.PN ---
Progress Note - Text Pt is POD # 3, S/P colectomy.Pain is tolerated with a combination of IV analgesics and epidural infusion of Bupivacaine. We will remove the epidural catheter and franco catheter out now(12:15).Pt can still get his Heparin SQ dose at 4 PM. Will sign off.
--- NOTE | 2017-01-25 12:18 | P.PN ---
Subjective Patient seen in follow-up for acute kidney injury on chronic kidney disease. Renal function has improved with creatinine down to 1.32 as of yesterday. Patient does have chronic kidney disease stage III with baseline creatinine near 1.4 secondary to nonrecovered ATN from septic shock. He did require hemodialysis for 4-5 months but was discontinued as renal function recovered. Patient presented with abdominal pain and was noted to have a small bowel obstruction. He underwent exploratory laparotomy with appendectomy and lysis of adhesions on January 23. Currently has an NG tube in place. He is resting in bed. Denies chest pain or shortness of breath. Admits to good urine output. Vital signs are stable. General: The patient appeared well nourished and normally developed. NG tube in place. HEENT: Head exam is unremarkable. Neck is without jugular venous distension. LUNGS: Lungs are clear to auscultation and percussion. Breath sounds decreased. HEART: Rate and Rhythm are regular. First and second heart sounds normal. No murmurs, rubs or gallops. ABDOMEN: Abdominal exam reveals decreased bowel sounds. Tender to palpation, worse on the left side. EXTREMITITES: No clubbing, cyanosis, or edema. Objective - Vital Signs Vital signs: Vital Signs Temp 97.9 F 01/25/17 10:57 Pulse 62 01/25/17 10:57 Resp 18 01/25/17 10:57 BP 91/54 01/25/17 10:57 Pulse Ox 98 01/25/17 10:57 Intake & Output 01/24/17 01/25/17 01/25/17 18:59 06:59 18:59 Intake Total 800 300 Output Total 450 2100 850 Balance 350 -1800 -850 Weight 80.739 kg Intake: Intake, IV Titration 800 300 Amount Dextrose 5%-0.45% NaCl 1, 800 300 000 ml @ 100 mls/hr IV . Q10H [facility] Rx#:[id number] Oral 0 Output: Gastric Drainage 450 650 Urine 1450 850 Uretheral (Werner) 600 Other: Voiding Method Indwelling Catheter Indwelling Catheter Indwelling Catheter # Voids 1 - Labs CBC & Chem 7: 01/24/17 06:56 01/24/17 06:56 Labs: Abnormal Lab Results - Last 24 Hours (Table) 01/24/17 01/25/17 01/25/17 Range/Units 18:17 00:00 05:49 POC Glucose (mg/dL) 141 H 155 H 167 H (75-99) mg/dL Assessment and Plan Plan: Assessment: #1. Nonoliguric acute kidney injury mostly prerenal from vomiting and poor oral intake. Creatinine was 1.6 on admission and is down to 1.32 as of yesterday. No evidence of hydronephrosis. Urinalysis is benign. #2. Chronic kidney disease stage III secondary to non-recovered ATN from septic shock with baseline creatinine in the range of 1.4-1.6. #3. Small bowel obstruction with NG tube in place, status post exploratory laparotomy with appendectomy and lysis of adhesions on January 23. Plan: Continue half normal saline to be run at 100 mL an hour. Surgery following. Avoid nephrotoxic agents and hypotensive episodes. Repeat electrolytes in the morning.
[2017-01-25 14:55] LABS: Glucose,Whole Blood 158 mg/dL (75-99)
--- NOTE | 2017-01-25 15:25 | P.PN ---
Subjective 61-year-old gentleman being seen on rounds this morning currently sitting up in bed. Patient states pain medication effective for pain control. Patient states is anxious to get the tubes out and get going". Patient is belching the passing no gas rectally. Indwelling Werner catheter in place. Patient reports an noted improvement in the abdominal pain. The white count 8.7 hemoglobin 11.2 the creatinine 1.3 electrolytes within normal limits postop on January 23 exploratory laparotomy extensive lessons of adhesions with an appendectomy for extensive adhesions with a small bowel obstruction. A prevena wound VAC was placed - Objective - Vital Signs Vital signs: Vital Signs Temp 97.7 F 01/25/17 14:45 Pulse 66 01/25/17 14:45 Resp 16 01/25/17 14:45 BP 100/57 01/25/17 14:45 Pulse Ox 94 L 01/25/17 14:45 Intake & Output 01/24/17 01/25/17 01/25/17 18:59 06:59 18:59 Intake Total 800 300 Output Total 450 2100 1650 Balance 350 -1800 -1650 Weight 80.739 kg Intake: Intake, IV Titration 800 300 Amount Dextrose 5%-0.45% NaCl 1, 800 300 000 ml @ 100 mls/hr IV . Q10H [facility] Rx#:[id number] Oral 0 Output: Gastric Drainage 450 650 Urine 1450 1650 Uretheral (Werner) 600 800 Other: Voiding Method Indwelling Catheter Indwelling Catheter Indwelling Catheter # Voids 1 - Exam physical exam 61-year-old male sitting up in bed nasal gastric tube connected to suction awake alert oriented 3 anxious to get the tubes out Lungs diminished at the bases otherwise adequate air movement on 4 L nasal cannula sats are 95% no cough noted Heart S1-S2 audible regular denying chest pain Abdomen dressing to surgical site dry iris in place suture line well approximated nasal gastric tube to suction indwelling Werner catheter in place a Prevena wound VAC in place patient states his belching but is not passing gas rectally no stool Extremities no edema noted Venodyne's on bilateral lower extremities - Labs CBC & Chem 7: 01/24/17 06:56 01/24/17 06:56 Labs: Abnormal Lab Results - Last 24 Hours (Table) 01/24/17 01/25/17 01/25/17 Range/Units 18: 00:00 05:49 POC Glucose (mg/dL) 141 H 155 H 167 H (75-99) mg/dL 01/25/17 Range/Units 14:50 POC Glucose (mg/dL) 158 H (75-99) mg/dL Assessment and Plan Plan: Impression Present on admission acute onset intractable nausea vomiting diffuse abdominal pain suspect due to a small bowel obstruction Present on admission acute kidney injury on chronic kidney disease Chronic kidney disease stage III History of a cholecystectomy with resection liver June 2016 COPD with no evidence of an exacerbation History of alcoholism in remission last drink April 2016 History of paroxysmal atrial fibrillation twelve-lead EKG 23 of January sinus bradycardia Hyperlipidemia Active nicotine dependency greater than 20 year history 1 pack a day History of diverticulosis Present on admission leukocytosis suspect reactive Present on admission hypo-magnesium Status post January 23 exploratory laparotomy extensive lysis of adhesions with small bowel obstruction, appendectomy Plan Continue postop surgical care Increase activity DVT and GI prophylaxis no Lovenox Nasal gastric tube to intermittent suction IV fluid at 100 and hour Repeat labs Epidural per anesthesia for pain control defer to Continue indwelling Werner catheter until the epidural is removed The above impression and plan of care have been discussed and directed by signing physician. Carla Karimi nurse practitioner acting as scribe for signing physician.
--- NOTE | 2017-01-25 16:31 | P.PN ---
Subjective Progress note being dictated for Dr. Wyman Interval history:Patient is 61-year-old gentleman with the abdominal surgeries in the past after he recently in [facility] for cholecystitis and patient evidently had septic shock at that time. Patient ended up on hemodialysis at that time. Comes in with nausea vomiting abdominal pain for which patient was admitted to surgical service for partial small bowel obstruction which was evidenced on the CAT scan of the abdomen. Patient was temporally on hemodialysis and baseline kidney creatinine is around 1.6. Patient is not dependent on ADLs and IADLs, had good functionality. His only risk factor for surgery days smoking smokes less than a pack a day has been smoking for long time. Patient had a normal ejection fraction the past although it was documented in the history that he had can start failure I did not see any evidence for that. Patient denied any COPD history. Denied any chest pain presently never had any coronary artery disease. Patient's EKG did show some nonspecific ST-T wave changes, may benefit from echocardiogram if we have time for that or rales patient is low to intermediate risk for surgery and can go first goiter per surgery for that is needed. 01/24/17 ambulating in halls, tolerated exertion well. No flatus, no bowel movement, positive belching/burping. Wound VAC present. Borderline hypotension , maintained on IV fluids. Afebrile. Pain controlled on epidural. Objective - Vital Signs Vital signs: Vital Signs Temp 97.7 F 01/25/17 14:45 Pulse 66 01/25/17 14:45 Resp 16 01/25/17 14:45 BP 100/57 01/25/17 14:45 Pulse Ox 94 L 01/25/17 14:45 Intake & Output 01/24/17 01/25/17 01/25/17 18:59 06:59 18:59 Intake Total 800 300 Output Total 450 2100 1650 Balance 350 -1800 -1650 Weight 80.739 kg Intake: Intake, IV Titration 800 300 Amount Dextrose 5%-0.45% NaCl 1, 800 300 000 ml @ 100 mls/hr IV . Q10H [facility] Rx#:[id number] Oral 0 Output: Gastric Drainage 450 650 Urine 1450 1650 Uretheral (Werner) 600 800 Other: Voiding Method Indwelling Catheter Indwelling Catheter Indwelling Catheter # Voids 1 - Exam GENERAL: The patient is alert and oriented x3, not in any acute distress. Well developed, well nourished. HEENT: Pupils are round and equally reacting to light. EOMI. No scleral icterus. No conjunctival pallor. Normocephalic, atraumatic. No pharyngeal erythema. No thyromegaly. NG tube present CARDIOVASCULAR: S1 and S2 present. No murmurs, rubs, or gallops. PULMONARY: Chest is clear to auscultation, no wheezing or crackles. ABDOMEN: Soft, nontender, NG tube in place, sluggish bowel sounds , wound VAC present MUSCULOSKELETAL: No joint swelling or deformity. EXTREMITIES: No cyanosis, clubbing, or pedal edema. NEUROLOGICAL: Gross neurological examination did not reveal any focal deficits. SKIN: No rashes. - Labs CBC & Chem 7: 01/24/17 06:56 01/24/17 06:56 Labs: Abnormal Lab Results - Last 24 Hours (Table) 01/24/17 01/25/17 01/25/17 Range/Units 18:17 00:00 05:49 POC Glucose (mg/dL) 141 H 155 H 167 H (75-99) mg/dL 01/25/17 Range/Units 14:50 POC Glucose (mg/dL) 158 H (75-99) mg/dL Assessment and Plan Plan: #1 partial small bowel obstruction, status post exploratory laparotomy, extensive lysis of adhesions, appendectomy #2 history of septic shock in the past leading to hemodialysis dependent: Patient had baseline kidney function of 1.3 patient is pretty close to his baseline. acute renal failure secondary to intravascular depletion ,chronic kidney disease stage III is a residual kidney dysfunction from his septic shock in the past. #3 type 2 diabetes mellitus: Continue sliding scale insulin. #4 COPD without any acute exacerbation #5 history of atrial fibrillation, presently rate controlled #6 history of sleep apnea will continue his CPAP machine. 7 and prostatic hypertrophy #8 hyperphosphatasia since patient is going to be nothing by mouth mostly is probably okay to leave 7 limited for now in spite of 5.4 phosphorus level Plan: Continue on current medication regime ,monitoring and symptomatic treatment. Increase ambulation as tolerated. Possibly increase IV fluids as patient borderline hypotensive-surgery paged. Pain management as per surgery. Benzocaine spray as patient complaining of sore throat from NG tube. Aggressive pulmonary toileting. Further recommendations to follow. The impression and plan of care has been dictated as directed. : I performed a H&P examination of this patient and discussed the same with the dictator. I agree with the dictator's note. Any additional findings/opinions/ etc. will be noted.
[2017-01-26] LABS: Glucose,Whole Blood 125 mg/dL (75-99)
[2017-01-26] MEDS: PIPERACILLIN-TAZOBACTAM 3.375 GM in DEXTROSE/WATER 1 50ML.BAG IVPB SCH ×3 (00:51→15:34)
[2017-01-26] MEDS: INSULIN LISPRO (humaLOG) 300 UNIT/3 ML VIAL SQ SCH ×4 (00:51→19:23)
[2017-01-26] MEDS: HEPARIN SODIUM,PORCINE 5,000 UNIT/ML 1 ML VIAL SQ SCH ×3 (00:52→17:07)
[2017-01-26] MEDS: SODIUM CHLORIDE 0.9% 1,000 ML IV SCH ×4 (00:53→12:41)
[2017-01-26] MEDS: ONDANSETRON 4 MG/2 ML VIAL IVP PRN ×4 (02:30→18:15)
[2017-01-26] MEDS: HYDROmorphone 1 MG/ML 1 ML SYRINGE IVP PRN ×7 (02:30→21:33)
[2017-01-26 05:57] LABS: Glucose,Whole Blood 135 mg/dL (75-99)
[2017-01-26] MEDS: PANTOPRAZOLE 40 MG/10 ML VIAL IV SCH (07:44)
[2017-01-26] MEDS: ACAMPROSATE CALCIUM 333 MG TABLET.DR PO SCH ×3 (07:54→17:08)
[2017-01-26 08:05] LABS: Basophils % (A) 1 %; CH 29.7; CHCM 31.5; Eosinophils # (A) 0.1 k/uL (0-0.7); Eosinophils % (A) 1 %; HCT 31.4 % (39.0-53.0); HDW 2.54; Luc # (Auto) 0.11; Luc % (Auto) 2; Lymphocytes # (A) 0.9 k/uL (1.0-4.8); Lymphocytes % (A) 13 %; MCH 30.1 pg (25.0-35.0); MCHC 31.8 g/dL (31.0-37.0); MCV 94.6 fL (80.0-100.0); Mean Platelet Volume 7.5; Monocytes # (A) 0.4 k/uL (0-1.0); Monocytes % (A) 6 %; Neutrophils # (A) 5.3 k/uL (1.3-7.7); Neutrophils % (A) 77 %; RBC 3.32 m/uL (4.30-5.90); RDW 15.7 % (11.5-15.5); WBC 6.8 k/uL (3.8-10.6); WBC (Perox) 6.87
[2017-01-26 08:15] LABS: ALT 22 U/L (21-72); AST 13 U/L (17-59); Alkaline Phosphatase 47 U/L (38-126); Anion Gap 7 mmol/L; Blood Urea Nitrogen 12 mg/dL (9-20); Calcium 9.4 mg/dL (8.4-10.2); Carbon Dioxide 21 mmol/L (22-30); Chloride 112 mmol/L (98-107); Glucose 109 mg/dL (74-99); Magnesium 1.6 mg/dL (1.6-2.3); Non-African American GFR(MDRD) >60 (>60 ml/min/1.73 sqM); Potassium 4.3 mmol/L (3.5-5.1); Sodium 140 mmol/L (137-145); Total Bilirubin 0.5 mg/dL (0.2-1.3); Total Protein 5.2 g/dL (6.3-8.2)
--- NOTE | 2017-01-26 09:06 | P.PN ---
Subjective 61-year-old being seen on rounds. Currently patient states pain medication is effective for pain control. Patient is insisting that his nasal gastric tube be removed he states he cannot stand it anymore and wants it out" a few hypoactive bowel tones noted. Patient states he is passing gas rectally. No bowel movement Per anesthesia the epidural was DC'd yesterday and indwelling Werner catheter was removed as well patient is urinating with no difficulty per patient report patient states he's hungry and ready to eat" postop on January 23 exploratory laparotomy extensive lessons of adhesions with an appendectomy for extensive adhesions with a small bowel obstruction. A prevena wound VAC was placed Objective - Vital Signs Vital signs: Vital Signs Temp 98.0 F 01/26/17 07:00 Pulse 79 01/26/17 07:00 Resp 16 01/26/17 07:00 BP 129/71 01/26/17 07:00 Pulse Ox 97 01/26/17 07:00 Intake & Output 01/25/17 01/26/17 01/26/17 18:59 06:59 18:59 Intake Total 850 Output Total 2850 850 350 Balance -2000 -850 -350 Weight 80.739 kg Intake: Intake, IV Titration 850 Amount Dextrose 5%-0.45% NaCl 1, 800 000 ml @ 100 mls/hr IV . Q10H [facility] Rx#:[id number] Piperacillin-Tazobactam 3 50 .375 gm In Dextrose/Water 1 50ml.bag @ 12.5 mls/hr IVPB Q8HR [facility] Rx#: [id number] Oral 0 Output: Gastric Drainage 150 350 Urine 2700 850 Uretheral (Werner) 800 Other: Voiding Method Indwelling Catheter Indwelling Catheter # Voids 2 2 - Exam Physical exam 61-year-old male sitting up in bed oriented 3 consisting the nasal gastric tube be removed cannot tolerate nursing documents 350 out of the nasogastric tube since midnight Lungs adequate air movement bilaterally diminished bases nasal cannula 3 L sats are 97% no wheezing noted no conversational dyspnea noted no cough noted needs encouragement to use the incentive spirometer Heart S1-S2 audible regular Abdomen surgical dressing dry.prevana wound VAC to surgical site intact hypoactive bowel sounds noted patient is belching and passing gas rectally appropriate surgical tenderness noted not distended soft states urinating no difficulty nasal gastric tube remains in place Extremities no edema noted - Labs CBC & Chem 7: 01/26/17 07:23 01/26/17 07:23 Labs: Abnormal Lab Results - Last 24 Hours (Table) 01/25/17 01/25/17 01/26/17 Range/Units 14:50 23:55 05:54 RBC (4.30-5.90) m/uL Hgb (13.0-17.5) gm/dL Hct (39.0-53.0) % RDW (11.5-15.5) % Plt Count (150-450) k/uL Lymphocytes # (1.0-4.8) k/uL Chloride (98-107) mmol/L Carbon Dioxide (22-30) mmol/L Glucose (74-99) mg/dL POC Glucose (mg/dL) 158 H 125 H 135 H (75-99) mg/dL AST (17-59) U/L Total Protein (6.3-8.2) g/dL Albumin (3.5-5.0) g/dL 01/26/17 01/26/17 Range/Units 07:23 07:23 RBC 3.32 L (4.30-5.90) m/uL Hgb 10.0 L (13.0-17.5) gm/dL Hct 31.4 L (39.0-53.0) % RDW 15.7 H (11.5-15.5) % Plt Count 134 L (150-450) k/uL Lymphocytes # 0.9 L (1.0-4.8) k/uL Chloride 112 H (98-107) mmol/L Carbon Dioxide 21 L (22-30) mmol/L Glucose 109 H (74-99) mg/dL POC Glucose (mg/dL) (75-99) mg/dL AST 13 L (17-59) U/L Total Protein 5.2 L (6.3-8.2) g/dL Albumin 2.7 L (3.5-5.0) g/dL Assessment and Plan Plan: Impression Present on admission acute onset intractable nausea vomiting diffuse abdominal pain suspect due to a small bowel obstruction Present on admission acute kidney injury on chronic kidney disease Chronic kidney disease stage III History of a cholecystectomy with resection liver June 2016 COPD with no evidence of an exacerbation History of alcoholism in remission last drink April 2016 History of paroxysmal atrial fibrillation twelve-lead EKG 23 of January sinus bradycardia Hyperlipidemia Active nicotine dependency greater than 20 year history 1 pack a day History of diverticulosis Present on admission leukocytosis suspect reactive Present on admission hypo-magnesium Status post January 23 exploratory laparotomy extensive lysis of adhesions with small bowel obstruction, appendectomy Plan Continue postop surgical care Increase activity DVT and GI prophylaxis no Lovenox Will clamp Nasal gastric tube 4 hours check residual is less than 100 remove the nasal gastric tube keep nothing by mouth except for ice chips this was discussed with the patient receptive to the plan agrees IV fluid at 100 and hour Repeat labs The above impression and plan of care have been discussed and directed by signing physician. Carla Karimi nurse practitioner acting as scribe for signing physician.
[2017-01-26] MEDS: SYMBICORT 160-4.5 MCG INHALER INHALATION SCH ×2 (09:21→19:14)
[2017-01-26] MEDS: ASPIRIN 81 MG PO SCH (09:39)
[2017-01-26] MEDS: TAMSULOSIN 0.4 MG CAP.ER.24H PO SCH (09:39)
--- NOTE | 2017-01-26 11:14 | P.PN ---
Subjective Patient seen in follow-up for acute kidney injury on chronic kidney disease. Renal function has improved with creatinine down to 1.11 as of yesterday. Patient does have chronic kidney disease stage III with baseline creatinine near 1.4 secondary to nonrecovered ATN from septic shock. He did require hemodialysis for 4-5 months but was discontinued as renal function recovered. Patient presented with abdominal pain and was noted to have a small bowel obstruction. He underwent exploratory laparotomy with appendectomy and lysis of adhesions on January 23. Currently has an NG tube in place. He is resting in bed. Denies chest pain or shortness of breath. Admits to good urine output. Continues to have abdominal discomfort. Vital signs are stable. General: The patient appeared well nourished and normally developed. NG tube in place. HEENT: Head exam is unremarkable. Neck is without jugular venous distension. LUNGS: Lungs are clear to auscultation and percussion. Breath sounds decreased. HEART: Rate and Rhythm are regular. First and second heart sounds normal. No murmurs, rubs or gallops. ABDOMEN: Abdominal exam reveals decreased bowel sounds. Tender to palpation. EXTREMITITES: No clubbing, cyanosis, or edema. Objective - Vital Signs Vital signs: Vital Signs Temp 98.0 F 01/26/17 07:00 Pulse 79 01/26/17 07:00 Resp 16 01/26/17 07:00 BP 129/71 01/26/17 07:00 Pulse Ox 97 01/26/17 07:00 Intake & Output 01/25/17 01/26/17 01/26/17 18:59 06:59 18:59 Intake Total 850 Output Total 2850 850 350 Balance -2000 -850 -350 Weight 80.739 kg Intake: Intake, IV Titration 850 Amount Dextrose 5%-0.45% NaCl 1, 800 000 ml @ 100 mls/hr IV . Q10H [facility] Rx#:[id number] Piperacillin-Tazobactam 3 50 .375 gm In Dextrose/Water 1 50ml.bag @ 12.5 mls/hr IVPB Q8HR [facility] Rx#: [id number] Oral 0 Output: Gastric Drainage 150 350 Urine 2700 850 Uretheral (Werner) 800 Other: Voiding Method Indwelling Catheter Indwelling Catheter # Voids 2 2 - Labs CBC & Chem 7: 01/26/17 07:23 01/26/17 07:23 Labs: Abnormal Lab Results - Last 24 Hours (Table) 01/25/17 01/25/17 01/26/17 Range/Units 14:50 23:55 05:54 RBC (4.30-5.90) m/uL Hgb (13.0-17.5) gm/dL Hct (39.0-53.0) % RDW (11.5-15.5) % Plt Count (150-450) k/uL Lymphocytes # (1.0-4.8) k/uL Chloride (98-107) mmol/L Carbon Dioxide (22-30) mmol/L Glucose (74-99) mg/dL POC Glucose (mg/dL) 158 H 125 H 135 H (75-99) mg/dL AST (17-59) U/L Total Protein (6.3-8.2) g/dL Albumin (3.5-5.0) g/dL 01/26/17 01/26/17 Range/Units 07:23 07:23 RBC 3.32 L (4.30-5.90) m/uL Hgb 10.0 L (13.0-17.5) gm/dL Hct 31.4 L (39.0-53.0) % RDW 15.7 H (11.5-15.5) % Plt Count 134 L (150-450) k/uL Lymphocytes # 0.9 L (1.0-4.8) k/uL Chloride 112 H (98-107) mmol/L Carbon Dioxide 21 L (22-30) mmol/L Glucose 109 H (74-99) mg/dL POC Glucose (mg/dL) (75-99) mg/dL AST 13 L (17-59) U/L Total Protein 5.2 L (6.3-8.2) g/dL Albumin 2.7 L (3.5-5.0) g/dL Assessment and Plan Plan: Assessment: #1. Nonoliguric acute kidney injury mostly prerenal from vomiting and poor oral intake. Creatinine was 1.6 on admission and is down to 1.11 today. No evidence of hydronephrosis. Urinalysis is benign. #2. Chronic kidney disease stage III secondary to non-recovered ATN from septic shock with baseline creatinine in the range of 1.4-1.6. #3. Small bowel obstruction with NG tube in place, status post exploratory laparotomy with appendectomy and lysis of adhesions on January 23. Plan: I will decrease the rate of normal saline to 75 mL an hour. Surgery following. Avoid nephrotoxic agents and hypotensive episodes. Repeat electrolytes in the morning.
[2017-01-26 14:40] VITALS: BMI 22.8
--- NOTE | 2017-01-26 15:15 | P.PN ---
Subjective Progress note being dictated for Dr. Wyman Interval history:Patient is 61-year-old gentleman with the abdominal surgeries in the past after he recently in [facility] for cholecystitis and patient evidently had septic shock at that time. Patient ended up on hemodialysis at that time. Comes in with nausea vomiting abdominal pain for which patient was admitted to surgical service for partial small bowel obstruction which was evidenced on the CAT scan of the abdomen. Patient was temporally on hemodialysis and baseline kidney creatinine is around 1.6. Patient is not dependent on ADLs and IADLs, had good functionality. His only risk factor for surgery days smoking smokes less than a pack a day has been smoking for long time. Patient had a normal ejection fraction the past although it was documented in the history that he had can start failure I did not see any evidence for that. Patient denied any COPD history. Denied any chest pain presently never had any coronary artery disease. Patient's EKG did show some nonspecific ST-T wave changes, may benefit from echocardiogram if we have time for that or rales patient is low to intermediate risk for surgery and can go first goiter per surgery for that is needed. 01/24/17 ambulating in halls, tolerated exertion well. No flatus, no bowel movement, positive belching/burping. Wound VAC present. Borderline hypotension , maintained on IV fluids. Afebrile. Pain controlled on epidural. 01/25/2017 maintained on IV fluid hydration. Passing flatus, no bowel movement. Asking for diet advancement. Bowel Sounds remain hypoactive, NG tube clamped, with residual check pending. Epidural discontinued, receiving Dilaudid IV push for generalized diffuse abdominal pain. Werner catheter also discontinued yesterday, voiding without difficulty. Objective - Vital Signs Vital signs: Vital Signs Temp 98.0 F 01/26/17 07:00 Pulse 79 01/26/17 07:00 Resp 16 01/26/17 07:00 BP 129/71 01/26/17 07:00 Pulse Ox 97 01/26/17 07:00 Intake & Output 01/25/17 01/26/17 01/26/17 18:59 06:59 18:59 Intake Total 850 900 Output Total 2850 850 1000 Balance -2000 -850 -100 Weight 80.739 kg 80.739 kg Intake: Intake, IV Titration 850 900 Amount Dextrose 5%-0.45% NaCl 1, 800 700 000 ml @ 100 mls/hr IV . Q10H [facility] Rx#:[id number] Piperacillin-Tazobactam 3 50 .375 gm In Dextrose/Water 1 50ml.bag @ 12.5 mls/hr IVPB Q8HR [facility] Rx#: [id number] Sodium Chloride 0.9% 1, 200 000 ml @ 75 mls/hr IV . [id number] [facility] Rx#:[id number] Oral 0 Output: Gastric Drainage 150 350 Urine 2700 850 650 Uretheral (Werner) 800 Other: Voiding Method Indwelling Catheter Indwelling Catheter Urinal # Voids 2 2 - Exam GENERAL: The patient is alert and oriented x3, not in any acute distress. Well developed, well nourished. HEENT: Pupils are round and equally reacting to light. EOMI. No scleral icterus. No conjunctival pallor. Normocephalic, atraumatic. No pharyngeal erythema. No thyromegaly. NG tube present CARDIOVASCULAR: S1 and S2 present. No murmurs, rubs, or gallops. PULMONARY: Chest is clear to auscultation, no wheezing or crackles. ABDOMEN: Soft, nontender, NG tube in place, hypoactive bowel sounds , wound VAC present MUSCULOSKELETAL: No joint swelling or deformity. EXTREMITIES: No cyanosis, clubbing, or pedal edema. NEUROLOGICAL: Gross neurological examination did not reveal any focal deficits. SKIN: No rashes. - Labs CBC & Chem 7: 01/26/17 07:23 01/26/17 07:23 Labs: Abnormal Lab Results - Last 24 Hours (Table) 01/25/17 01/26/17 01/26/17 Range/Units 23:55 05:54 07:23 RBC (4.30-5.90) m/uL Hgb (13.0-17.5) gm/dL Hct (39.0-53.0) % RDW (11.5-15.5) % Plt Count (150-450) k/uL Lymphocytes # (1.0-4.8) k/uL Chloride 112 H (98-107) mmol/L Carbon Dioxide 21 L (22-30) mmol/L Glucose 109 H (74-99) mg/dL POC Glucose (mg/dL) 125 H 135 H (75-99) mg/dL AST 13 L (17-59) U/L Total Protein 5.2 L (6.3-8.2) g/dL Albumin 2.7 L (3.5-5.0) g/dL 01/26/17 Range/Units 07:23 RBC 3.32 L (4.30-5.90) m/uL Hgb 10.0 L (13.0-17.5) gm/dL Hct 31.4 L (39.0-53.0) % RDW 15.7 H (11.5-15.5) % Plt Count 134 L (150-450) k/uL Lymphocytes # 0.9 L (1.0-4.8) k/uL Chloride (98-107) mmol/L Carbon Dioxide (22-30) mmol/L Glucose (74-99) mg/dL POC Glucose (mg/dL) (75-99) mg/dL AST (17-59) U/L Total Protein (6.3-8.2) g/dL Albumin (3.5-5.0) g/dL Assessment and Plan Plan: #1 partial small bowel obstruction, status post exploratory laparotomy, extensive lysis of adhesions, appendectomy #2 history of septic shock in the past leading to hemodialysis dependent: Patient had baseline kidney function of 1.3 patient is pretty close to his baseline. acute renal failure secondary to intravascular depletion ,chronic kidney disease stage III is a residual kidney dysfunction from his septic shock in the past. #3 type 2 diabetes mellitus: Continue sliding scale insulin. #4 COPD without any acute exacerbation #5 history of atrial fibrillation, presently rate controlled #6 history of sleep apnea will continue his CPAP machine. 7 and prostatic hypertrophy #8 hyperphosphatasia since patient is going to be nothing by mouth mostly is probably okay to leave 7 limited for now in spite of 5.4 phosphorus level Plan: Continue on current medication regime ,monitoring and symptomatic treatment. Aggressive pulmonary toileting. Increase ambulation as tolerated. NG tube currently clamped with residual check pending, potential DC of NG tube as per surgery parameters. Pain management as per surgery. The impression and plan of care has been dictated as directed. : I performed a H&P examination of this patient and discussed the same with the dictator. I agree with the dictator's note. Any additional findings/opinions/ etc. will be noted.
[2017-01-26 19:06] LABS: Glucose,Whole Blood 100 mg/dL (75-99)
[2017-01-27] MEDS: HYDROmorphone 1 MG/ML 1 ML SYRINGE IVP PRN ×6 (00:20→21:57)
[2017-01-27] MEDS: ONDANSETRON 4 MG/2 ML VIAL IVP PRN ×4 (00:23→21:58)
[2017-01-27] MEDS: PIPERACILLIN-TAZOBACTAM 3.375 GM in DEXTROSE/WATER 1 50ML.BAG IVPB SCH ×3 (00:24→15:13)
[2017-01-27] MEDS: HEPARIN SODIUM,PORCINE 5,000 UNIT/ML 1 ML VIAL SQ SCH ×3 (05:22→16:40)
[2017-01-27] MEDS: SODIUM CHLORIDE 0.9% 1,000 ML IV SCH ×2 (05:23→09:55)
[2017-01-27] MEDS: INSULIN LISPRO (humaLOG) 300 UNIT/3 ML VIAL SQ SCH ×4 (06:10→18:35)
[2017-01-27] MEDS: SYMBICORT 160-4.5 MCG INHALER INHALATION SCH ×2 (07:20→21:00)
[2017-01-27] MEDS: ACAMPROSATE CALCIUM 333 MG TABLET.DR PO SCH ×3 (07:48→18:36)
[2017-01-27] MEDS: TAMSULOSIN 0.4 MG CAP.ER.24H PO SCH ×2 (08:00→12:38)
[2017-01-27] MEDS: ASPIRIN 81 MG PO SCH ×2 (08:00→12:38)
[2017-01-27] MEDS: PANTOPRAZOLE 40 MG/10 ML VIAL IV SCH (08:27)
--- NOTE | 2017-01-27 08:27 | P.PN ---
Subjective Patient seen in follow-up for acute kidney injury on chronic kidney disease. Renal function has improved with creatinine down to 1.11 as of yesterday. Patient does have chronic kidney disease stage III with baseline creatinine near 1.4 secondary to nonrecovered ATN from septic shock. He did require hemodialysis for 4-5 months but was discontinued as renal function recovered. Patient presented with abdominal pain and was noted to have a small bowel obstruction. He underwent exploratory laparotomy with appendectomy and lysis of adhesions on January 23. NG tube has been discontinued. He is resting in bed. Denies chest pain or shortness of breath. Admits to good urine output. Continues to have abdominal discomfort but improved compared to yesterday. Feels hungry and wants to eat. Vital signs are stable. General: The patient appeared well nourished and normally developed. NG tube in place. HEENT: Head exam is unremarkable. Neck is without jugular venous distension. LUNGS: Lungs are clear to auscultation and percussion. Breath sounds decreased. HEART: Rate and Rhythm are regular. First and second heart sounds normal. No murmurs, rubs or gallops. ABDOMEN: Abdominal exam reveals decreased bowel sounds. Tender to palpation. EXTREMITITES: No clubbing, cyanosis, or edema. Objective - Vital Signs Vital signs: Vital Signs Temp 98.3 F 01/27/17 07:00 Pulse 55 L 01/27/17 07:00 Resp 16 01/27/17 07:00 BP 122/68 01/27/17 07:00 Pulse Ox 92 L 01/27/17 07:00 Intake & Output 01/26/17 01/27/17 01/27/17 18:59 06:59 18:59 Intake Total 900 1000 Output Total 1000 200 Balance -100 800 Weight 80.739 kg Intake: Intake, IV Titration 900 1000 Amount Dextrose 5%-0.45% NaCl 1, 700 000 ml @ 100 mls/hr IV . Q10H [facility] Rx#:[id number] Piperacillin-Tazobactam 3 100 .375 gm In Dextrose/Water 1 50ml.bag @ 12.5 mls/hr IVPB Q8HR [facility] Rx#: [id number] Sodium Chloride 0.9% 1, 200 900 000 ml @ 75 mls/hr IV . [id number] [facility] Rx#:[id number] Output: Gastric Drainage 350 Urine 650 200 Other: Voiding Method Urinal # Voids 1 - Labs CBC & Chem 7: 01/26/17 07:23 01/26/17 07:23 Labs: Abnormal Lab Results - Last 24 Hours (Table) 01/26/17 Range/Units 18:13 POC Glucose (mg/dL) 100 H (75-99) mg/dL Assessment and Plan Plan: Assessment: #1. Nonoliguric acute kidney injury mostly prerenal from vomiting and poor oral intake. Creatinine was 1.6 on admission and is down to 1.11 as of yesterday. No evidence of hydronephrosis. Urinalysis is benign. #2. Chronic kidney disease stage III secondary to non-recovered ATN from septic shock with baseline creatinine in the range of 1.4-1.6. #3. Small bowel obstruction, status post exploratory laparotomy with appendectomy and lysis of adhesions on January 23. Plan: Continue normal saline to be run at 75 mL an hour. Surgery following. Possibly advance diet today. Avoid nephrotoxic agents and hypotensive episodes. Repeat electrolytes in the morning.
[2017-01-27 08:41] LABS: Anion Gap 11 mmol/L; Blood Urea Nitrogen 14 mg/dL (9-20); Calcium 9.8 mg/dL (8.4-10.2); Carbon Dioxide 20 mmol/L (22-30); Chloride 111 mmol/L (98-107); Glucose 73 mg/dL (74-99); Magnesium 1.5 mg/dL (1.6-2.3); Non-African American GFR(MDRD) >60 (>60 ml/min/1.73 sqM); Potassium 4.2 mmol/L (3.5-5.1); Sodium 142 mmol/L (137-145)
--- NOTE | 2017-01-27 08:51 | P.PN ---
Subjective 61-year-old male being seen on the surgical unit. Patient states he's hungry need something to eat states been up ambulating in the hallway pain control effective for surgical discomfort anxious to be discharged. Patient states that he is passing gas states he had a small bowel movement currently tolerating diet postop on January 23 exploratory laparotomy extensive lessons of adhesions with an appendectomy for extensive adhesions with a small bowel obstruction. A prevena wound VAC was placed Objective - Vital Signs Vital signs: Vital Signs Temp 98.3 F 01/27/17 07:00 Pulse 55 L 01/27/17 07:00 Resp 16 01/27/17 07:00 BP 122/68 01/27/17 07:00 Pulse Ox 92 L 01/27/17 07:00 Intake & Output 01/26/17 01/27/17 01/27/17 18:59 06:59 18:59 Intake Total 900 1000 Output Total 1000 200 Balance -100 800 Weight 80.739 kg Intake: Intake, IV Titration 900 1000 Amount Dextrose 5%-0.45% NaCl 1, 700 000 ml @ 100 mls/hr IV . Q10H [facility] Rx#:[id number] Piperacillin-Tazobactam 3 100 .375 gm In Dextrose/Water 1 50ml.bag @ 12.5 mls/hr IVPB Q8HR [facility] Rx#: [id number] Sodium Chloride 0.9% 1, 200 900 000 ml @ 75 mls/hr IV . [id number] [facility] Rx#:[id number] Output: Gastric Drainage 350 Urine 650 200 Other: Voiding Method Urinal # Voids 1 - Exam Physical exam 61-year-old male resting in bed pleasant cooperative oriented 3 Lungs adequate air movement bilaterally on room air Heart S1-S2 audible regular denying chest pain Abdomen soft surgical tenderness appropriate prevena wound VAC in place surgical dressing dry not distended bowel tones present urinating no difficulty no nausea no vomiting passing gas rectally no stool Extremities no edema - Labs CBC & Chem 7: 01/26/17 07:23 01/27/17 07:43 Labs: Abnormal Lab Results - Last 24 Hours (Table) 01/26/17 Range/Units 18:13 POC Glucose (mg/dL) 100 H (75-99) mg/dL Assessment and Plan Plan: Impression Present on admission acute onset intractable nausea vomiting diffuse abdominal pain suspect due to a small bowel obstruction Present on admission acute kidney injury on chronic kidney disease Chronic kidney disease stage III History of a cholecystectomy with resection liver June 2016 COPD with no evidence of an exacerbation History of alcoholism in remission last drink April 2016 History of paroxysmal atrial fibrillation twelve-lead EKG 23 of January sinus bradycardia Hyperlipidemia Active nicotine dependency greater than 20 year history 1 pack a day History of diverticulosis Present on admission leukocytosis suspect reactive Present on admission hypo-magnesium Status post January 23 exploratory laparotomy extensive lysis of adhesions with small bowel obstruction, appendectomy Plan Continue postop surgical care Increase activity DVT and GI prophylaxis no Lovenox Advance diet Remove prevena wound VAC now Prepped for probable discharge in the next 24 hours The above impression and plan of care have been discussed and directed by signing physician. Carla Karimi nurse practitioner acting as scribe for signing physician.
[2017-01-27] MEDS ORDERED: HYDROcodone/APAP 7.5-325MG 1 EACH TAB PO PRN (08:52)
[2017-01-27 08:59] LABS: Glucose,Whole Blood 85 mg/dL (75-99)
[2017-01-27] MEDS: HYDROcodone/APAP 10-325MG 1 EACH TAB PO PRN ×3 (12:25→20:26)
--- NOTE | 2017-01-27 16:55 | P.PN ---
Subjective Progress note being dictated for Dr. Wyman Interval history:Patient is 61-year-old gentleman with the abdominal surgeries in the past after he recently in [facility] for cholecystitis and patient evidently had septic shock at that time. Patient ended up on hemodialysis at that time. Comes in with nausea vomiting abdominal pain for which patient was admitted to surgical service for partial small bowel obstruction which was evidenced on the CAT scan of the abdomen. Patient was temporally on hemodialysis and baseline kidney creatinine is around 1.6. Patient is not dependent on ADLs and IADLs, had good functionality. His only risk factor for surgery days smoking smokes less than a pack a day has been smoking for long time. Patient had a normal ejection fraction the past although it was documented in the history that he had can start failure I did not see any evidence for that. Patient denied any COPD history. Denied any chest pain presently never had any coronary artery disease. Patient's EKG did show some nonspecific ST-T wave changes, may benefit from echocardiogram if we have time for that or rales patient is low to intermediate risk for surgery and can go first goiter per surgery for that is needed. 01/25/17 ambulating in halls, tolerated exertion well. No flatus, no bowel movement, positive belching/burping. Wound VAC present. Borderline hypotension , maintained on IV fluids. Afebrile. Pain controlled on epidural. 01/26/2017 maintained on IV fluid hydration. Passing flatus, no bowel movement. Asking for diet advancement. Bowel Sounds remain hypoactive, NG tube clamped, with residual check pending. Epidural discontinued, receiving Dilaudid IV push for generalized diffuse abdominal pain. Werner catheter also discontinued yesterday, voiding without difficulty. 01/27/2017. NG tube discontinued yesterday, clear liquids initiated today, been advanced to full liquids at lunch and impossibly soft low residue diet by dinner as per surgery. Passing flatus, no bowel movement. Generalized abdominal pain improving. Ambulating in hallway, multiple laps. Denies chest pain, palpitations or increasing shortness of breath. Afebrile. Objective - Vital Signs Vital signs: Vital Signs Temp 97.9 F 01/27/17 16:00 Pulse 56 L 01/27/17 16:00 Resp 16 01/27/17 16:00 BP 117/69 01/27/17 16:00 Pulse Ox 92 L 01/27/17 16:00 Intake & Output 01/26/17 01/27/17 01/27/17 18:59 06:59 18:59 Intake Total 900 1000 Output Total 1000 200 Balance -100 800 Weight 80.739 kg 80.739 kg Intake: Intake, IV Titration 900 1000 Amount Dextrose 5%-0.45% NaCl 1, 700 000 ml @ 100 mls/hr IV . Q10H [facility] Rx#:[id number] Piperacillin-Tazobactam 3 100 .375 gm In Dextrose/Water 1 50ml.bag @ 12.5 mls/hr IVPB Q8HR [facility] Rx#: [id number] Sodium Chloride 0.9% 1, 200 900 000 ml @ 75 mls/hr IV . [id number] [facility] Rx#:[id number] Output: Gastric Drainage 350 Urine 650 200 Other: Voiding Method Urinal # Voids 1 - Exam GENERAL: The patient is alert and oriented x3, not in any acute distress. Well developed, well nourished. Sitting up in chair. HEENT: Pupils are round and equally reacting to light. EOMI. No scleral icterus. No conjunctival pallor. Normocephalic, atraumatic. No pharyngeal erythema. No thyromegaly. CARDIOVASCULAR: S1 and S2 present. No murmurs, rubs, or gallops. PULMONARY: Chest is clear to auscultation, no wheezing or crackles. ABDOMEN: Soft, status post surgery, positive bowel sounds , wound VAC present MUSCULOSKELETAL: No joint swelling or deformity. EXTREMITIES: No cyanosis, clubbing, or pedal edema. NEUROLOGICAL: Gross neurological examination did not reveal any focal deficits. SKIN: No rashes. - Labs CBC & Chem 7: 01/26/17 07:23 01/27/17 07:43 Labs: Abnormal Lab Results - Last 24 Hours (Table) 01/26/17 01/27/17 Range/Units 18:13 07:43 Chloride 111 H (98-107) mmol/L Carbon Dioxide 20 L (22-30) mmol/L Glucose 73 L (74-99) mg/dL POC Glucose (mg/dL) 100 H (75-99) mg/dL Magnesium 1.5 L (1.6-2.3) mg/dL Assessment and Plan Plan: #1 partial small bowel obstruction, status post exploratory laparotomy, extensive lysis of adhesions, appendectomy #2 history of septic shock in the past leading to hemodialysis dependent: Patient had baseline kidney function of 1.3 patient is pretty close to his baseline. acute renal failure secondary to intravascular depletion ,chronic kidney disease stage III is a residual kidney dysfunction from his septic shock in the past. #3 type 2 diabetes mellitus: Continue sliding scale insulin. #4 COPD without any acute exacerbation #5 history of atrial fibrillation, presently rate controlled #6 history of sleep apnea will continue his CPAP machine. 7 and prostatic hypertrophy #8 hyperphosphatasia since patient is going to be nothing by mouth mostly is probably okay to leave 7 limited for now in spite of 5.4 phosphorus level Plan: Continue on current medication regime ,monitoring and symptomatic treatment. Pain management and Wound VAC removal being discussed as per surgery. Aggressive pulmonary toileting. Increase ambulation as tolerated. Discharge planning in progress for tomorrow as per surgery. Further recommendations to follow. The impression and plan of care has been dictated as directed. : I performed a H&P examination of this patient and discussed the same with the dictator. I agree with the dictator's note. Any additional findings/opinions/ etc. will be noted.
[2017-01-27 18:19] LABS: Glucose,Whole Blood 135 mg/dL (75-99)
[2017-01-27] MEDS ORDERED: SODIUM CHLORIDE 0.65% NASAL SPRAY 44 ML BTL NASAL PRN (22:10)
[2017-01-28] MEDS: INSULIN LISPRO (humaLOG) 300 UNIT/3 ML VIAL SQ SCH ×3 (00:29→12:49)
[2017-01-28] MEDS: HYDROcodone/APAP 10-325MG 1 EACH TAB PO PRN ×4 (00:30→15:25)
[2017-01-28] MEDS: HEPARIN SODIUM,PORCINE 5,000 UNIT/ML 1 ML VIAL SQ SCH ×2 (00:30→09:59)
[2017-01-28] MEDS: PIPERACILLIN-TAZOBACTAM 3.375 GM in DEXTROSE/WATER 1 50ML.BAG IVPB SCH ×2 (00:32→09:58)
[2017-01-28] MEDS: HYDROmorphone 1 MG/ML 1 ML SYRINGE IVP PRN (04:44)
[2017-01-28] MEDS: ONDANSETRON 4 MG/2 ML VIAL IVP PRN (04:44)
[2017-01-28 07:10] LABS: Glucose,Whole Blood 98 mg/dL (75-99)
[2017-01-28] MEDS ORDERED: PANTOPRAZOLE 40 MG TABLET PO SCH (07:30)
[2017-01-28 07:52] LABS: Anion Gap 7 mmol/L; Blood Urea Nitrogen 14 mg/dL (9-20); Calcium 9.5 mg/dL (8.4-10.2); Carbon Dioxide 24 mmol/L (22-30); Chloride 109 mmol/L (98-107); Glucose 85 mg/dL (74-99); Non-African American GFR(MDRD) >60 (>60 ml/min/1.73 sqM); Potassium 3.9 mmol/L (3.5-5.1); Sodium 140 mmol/L (137-145)
[2017-01-28] MEDS: SYMBICORT 160-4.5 MCG INHALER INHALATION SCH (08:29)
[2017-01-28] MEDS: ACAMPROSATE CALCIUM 333 MG TABLET.DR PO SCH ×2 (09:59→11:20)
[2017-01-28] MEDS: TAMSULOSIN 0.4 MG CAP.ER.24H PO SCH (10:00)
[2017-01-28] MEDS: ASPIRIN 81 MG PO SCH (10:00)
[2017-01-28 10:42] VITALS: BP 120/67; PULSE 54; RESP 15; TEMP 96.7
--- NOTE | 2017-01-28 16:14 | P.PN ---
Subjective Principal diagnosis: Bowel obstruction The patient is status post lysis of adhesions and ppendectomy Dr. Sherman Quan. He is tolerating diet. He is ambulating. He is cleared by medicine for discharge. Objective - Vital Signs Vital signs: Vital Signs Temp 96.7 F L 01/28/17 07:00 Pulse 54 L 01/28/17 07:00 Resp 15 01/28/17 07:00 BP 120/67 01/28/17 07:00 Pulse Ox 98 01/28/17 07:00 Intake & Output 01/27/17 01/28/17 01/28/17 18:59 06:59 18:59 Intake Total 300 600 Output Total 1400 Balance 300 -800 Weight 80.739 kg Intake: Intake, IV Titration 300 50 Amount Piperacillin-Tazobactam 3 50 50 .375 gm In Dextrose/Water 1 50ml.bag @ 12.5 mls/hr IVPB Q8HR [facility] Rx#: [id number] Sodium Chloride 0.9% 1, 250 000 ml @ 75 mls/hr IV . [id number] [facility] Rx#:[id number] Oral 550 Output: Urine 1400 Other: Voiding Method Toilet # Voids 3 - Exam GENERAL: Well developed and in no acute distress. Pleasant. HEENT: No sclera icterus. Extraocular movements grossly intact. Moist buccal mucosa. Head is atraumatic, normocephalic. Hears conversational speech. No nasal drainage. CHEST: Non-labored respirations and equal bilateral excursions. CARDIOVASCULAR: Regular rate and rhythm. Palpable 2+ radial pulses. ABDOMEN: Soft, nontender. [place] intact. MUSCULOSKELETAL: No clubbing, cyanosis or edema. - Labs CBC & Chem 7: 01/26/17 07:23 01/28/17 06:55 Labs: Abnormal Lab Results - Last 24 Hours (Table) 01/27/17 01/28/17 Range/Units 18:10 06:55 Chloride 109 H (98-107) mmol/L POC Glucose (mg/dL) 135 H (75-99) mg/dL Assessment and Plan (1) Small bowel obstruction Status: Acute Plan: 1. Patient has been discharged home by medicine. Follow-up with his primary care doctor including Dr. Sherman Quan. 2. Ibuprofen including Flomax has been prescribed on his behalf. I am rounding on behalf of Dr. Sherman Torres.
--- NOTE | 2017-01-28 19:13 | P.PN ---
Subjective This 61-year-old gentleman who was admitted with a partial small bowel option underwent exploratory laparotomy and left as well as lysis of adhesions. Patient is improving significantly. No chest pain palpitation or shortness of breath. Surgery is planning discharged. Objective - Vital Signs Vital signs: Vital Signs Temp 96.7 F L 01/28/17 07:00 Pulse 54 L 01/28/17 07:00 Resp 15 01/28/17 07:00 BP 120/67 01/28/17 07:00 Pulse Ox 98 01/28/17 07:00 Intake & Output 01/28/17 01/28/17 01/29/17 06:59 18:59 06:59 Intake Total 600 450 Output Total 1400 Balance -800 450 Intake: IV 50 Piperacillin-Tazobactam 3 50 .375 gm In Dextrose/Water 1 50ml.bag @ 12.5 mls/hr IVPB Q8HR [facility] Rx#: [id number] Intake, IV Titration 50 Amount Piperacillin-Tazobactam 3 50 .375 gm In Dextrose/Water 1 50ml.bag @ 12.5 mls/hr IVPB Q8HR [facility] Rx#: [id number] Oral 550 400 Output: Urine 1400 Other: Voiding Method Toilet # Voids 2 - Exam On exam, alert and oriented x3. HEENT: Conjunctivae normal. eyes normal. NECK: No JVD. No thyroid enlargement. No LNs CARDIOVASCULAR: S1, S2 muffled. No murmur RESPIRATION: Breath sounds diminished in the bases. No rhonchi or crackles. No bronchial breathing. ABDOMEN: Soft, nontender . No guarding. no masses palpable. No ascites, No hepatosplenomegaly.Bowel sounds heard. Status post surgery. LEGS: No edema. no swelling NERVOUS SYSTEM: Cranial N 2-12 grossly normal. Moves all 4 limbs. No focal deficits. No sensory deficit. No signs of cerebellar dysfucntion. Skin: no ulcer no rash Joints: No active swelling. No inflammation. Lymphatic system. No LN neck axilla or groin. - Labs CBC & Chem 7: 01/26/17 07:23 01/28/17 06:55 Labs: Abnormal Lab Results - Last 24 Hours (Table) 01/28/17 Range/Units 06:55 Chloride 109 H (98-107) mmol/L Assessment and Plan Plan: Assessment 1. Partial small bowel obstruction status post exploratory laparotomy and lysis of adhesions and appendectomy. 2. History of septic shock in the past. 3. COPD 4. Diabetes mellitus type 2 next. 5. Atrial fibrillation 6. Sleep apnea Plan In this 61-year-old gentleman who had surgery I would recommend to continue the home medications. Surgery is planning discharged. I would recommend to continue with incentive spirometry and follow closely with surgery and the primary physician outpatient setting. Otherwise rest of the recommendations per surgery.
== END 2017-01-28 17:36 | disposition home or self-care (01) | DRG 335 ==
LOC: EC 21:37 → 3SUR 01-23 01:19
PROVIDERS: ADMIT Surgery; ATTEND Surgery
PROC: 0DTJ0ZZ Resection of Appendix, Open Approach (ICD-10-PCS; 2017-01-23)
PROC: 0D9670Z Drainage of Stomach with Drainage Device, Via Natural or Artificial Opening (ICD-10-PCS; 2017-01-23)
PROC: 0DN80ZZ Release Small Intestine, Open Approach (ICD-10-PCS; principal; 2017-01-23 07:30)
DX: K56.5 Intestinal adhesions [bands] with obstruction (postinfection) (principal); N17.0 Acute kidney failure with tubular necrosis; J96.11 Chronic respiratory failure with hypoxia; I13.0 Hypertensive heart and chronic kidney disease with heart failure and stage 1 through stage 4 chronic kidney disease, or unspecified chronic kidney disease; E11.22 Type 2 diabetes mellitus with diabetic chronic kidney disease; I50.9 Heart failure, unspecified; Z99.81 Dependence on supplemental oxygen; I48.0 Paroxysmal atrial fibrillation; N18.3 Chronic kidney disease, stage 3 (moderate); K21.9 Gastro-esophageal reflux disease without esophagitis; E78.5 Hyperlipidemia, unspecified; G47.30 Sleep apnea, unspecified; J44.9 Chronic obstructive pulmonary disease, unspecified; F32.9 Major depressive disorder, single episode, unspecified; E83.42 Hypomagnesemia; N40.0 Benign prostatic hyperplasia without lower urinary tract symptoms; F17.210 Nicotine dependence, cigarettes, uncomplicated; F41.0 Panic disorder [episodic paroxysmal anxiety]; F10.21 Alcohol dependence, in remission; Z79.82 Long term (current) use of aspirin; Z79.4 Long term (current) use of insulin; Z79.51 Long term (current) use of inhaled steroids; Z79.899 Other long term (current) drug therapy; Z86.718 Personal history of other venous thrombosis and embolism; Z90.49 Acquired absence of other specified parts of digestive tract
CPT/HCPCS: 36415; 71010; 71020; 74000; 74176; 80048; 80053; 81003; 82550; 82553; 83036; 83605; 83735; 84100; 84484; 85025; 85610; 85730; 86850; 86900; 86901; 88304; 93005; 94640; 94760; 96361; 96365; 96375; 99285

== ENCOUNTER 2017-09-11 07:42 | Day surgery (SDC) | payer OTHER ==
[2017-09-06 13:44] VITALS: BMI 24.5
[~2017-09-11 07:42] MED LIST: ceFAZolin 1,000 MG in SODIUM CHLORIDE 0.9% IRRIGATIO 250 ML IRRIGATION ONE
[2017-09-11] MEDS: SODIUM CHLORIDE 0.9% 1,000 ML IV SCH (08:05)
[2017-09-11 08:15] LABS: Basophils % (A) 0 %; Eosinophils # (A) 0.1 k/uL (0-0.7); Eosinophils % (A) 1 %; HCT 38.2 % (39.0-53.0); HGB 12.6 gm/dL (13.0-17.5); Lymphocytes # (A) 0.6 k/uL (1.0-4.8); Lymphocytes % (A) 10 %; MCH 32.5 pg (25.0-35.0); MCHC 32.9 g/dL (31.0-37.0); MCV 98.9 fL (80.0-100.0); Mean Platelet Volume 7.5; Monocytes # (A) 0.2 k/uL (0-1.0); Monocytes % (A) 3 %; Neutrophils # (A) 5.2 k/uL (1.3-7.7); Neutrophils % (A) 86 %; Platelet Count 125 k/uL (150-450); RBC 3.86 m/uL (4.30-5.90); RDW 13.6 % (11.5-15.5); WBC 6.1 k/uL (3.8-10.6)
[2017-09-11 08:30] LABS: Calcium 9.5 mg/dL (8.4-10.2); Potassium 5.5 mmol/L (3.5-5.1)
[2017-09-11 08:35] LABS: Glucose,Whole Blood 190 mg/dL (75-99)
[2017-09-11] MEDS ORDERED: LIDOCAINE 1% INJ 10MG/ML (20 ML MDV) ONE ×2 (08:47)
[2017-09-11] MEDS ORDERED: IOPAMIDOL-250 50ML BTL IV ONE (09:15)
[2017-09-11] MEDS ORDERED: MIDAZOLAM 2 MG/2 ML VIAL ONE (09:17)
[2017-09-11] MEDS ORDERED: fentaNYL (PF) 50 MCG/ML 2 ML AMP ONE (09:17)
[2017-09-11] MEDS: ceFAZolin IN SWFI 2 GM/20 ML SYRINGE IVP ONE ×2 (09:20→09:27)
[2017-09-11] MEDS: fentaNYL (PF) 50 MCG/ML 2 ML AMP IV ONE ×3 (09:20→10:22)
[2017-09-11] MEDS: MIDAZOLAM 2 MG/2 ML VIAL IV ONE ×2 (09:20→09:34)
[2017-09-11] MEDS ORDERED: LIDOCAINE 1% INJ 10MG/ML (20 ML MDV) SQ ONE (09:25)
[2017-09-11] MEDS ORDERED: ACETAMINOPHEN IV (For NPO) 1,000 MG in EMPTY BAG 1 BAG IVPB STA (10:27)
[2017-09-11] MEDS ORDERED: ACETAMINOPHEN TAB 325 MG TAB PO PRN (10:44)
--- NOTE | 2017-09-11 10:58 | P.PCN ---
Date of Procedure: 09/11/17 Preoperative Diagnosis: Sick sinus syndrome Postoperative Diagnosis: The same Procedure(s) Performed: Axillary venography, dual-chamber permanent pacemaker implantation. Description of Procedure: HISTORY: This is a 61-year-old gentleman with history of palpitations, bradycardia with junctional rhythms with retrograde conduction. Because of ongoing symptoms and sick sinus syndrome, patient is advised to have permanent pacemaker implantation. CONSENT:I have discussed the risks, benefits and alternative therapies for the above-mentioned procedure and for both sedation/analgesia as well as necessary blood product administration, if indicated, as they pertain to this patient. The patient has indicated understanding and acceptance of the risks and procedures discussed. PROCEDURE: Patient was brought to the lab in a fasting state. Patient was prepped and draped in the usual fashion. Patient was given IV sedation with fentanyl and Versed. The skin below the left clavicle was infiltrated with lidocaine. An incision was made parallel to deltopectoral groove was deepened until the pectoral fascia was exposed. A pocket was created by blunt dissection and cautery. Axillary venography was performed to delineate the course of the axillary vein. 2 sticks were performed into extrathoracic portion of the axillary vein and 2 sheaths were advanced over the guidewires and left in subclavian vein. Conscious Sedation: Versed 2mg Fentanyl 75 g. Patient is also given IV, Tylenol Duration 83 minutes LEADS: ATRIAL: This is manufactured by [employer]. Model number is 5076-52. Serial number is [id number]. VENTRICULAR: This is manufactured by [employer]. Model number is 5076-58. The serial number is [id number]. The ventricular lead is maneuvered l with help of a straight and curved stylets into the left ventricle apical region. Satisfactory position was obtained and threshold measurements were made. The atrial lead was then maneuvered into the right atrial appendage. And thresholds were obtained. THRESHOLDS: ATRIUM: About 1.1 V at pulse width of 1 and impedance of 639 ohms. The P-wave is about 1.4 P VENTRICLE: The minimum patient threshold is 1.2 at pulse width of 0.4 and impedance is 1029. R-wave: 5.9 The leads and pulse generator remained in the pocket after it was washed with antibiotics. Pocket was closed in the usual fashion. The fascia was closed with 2-0 Prolene ,the subcutaneous tissue was closed with 3-0 Prolene and the skin was closed with 4-0 Prolene. PROGRAMMING: MODE: DDD RATE: 60 to 130 OUTPUT: Atrium: 3.5 V. Ventricle: 3.5 V FINAL IMPRESSION: #1 axillary venography #2. Dual-chamber permanent pacemaker implantation. COMPLICATIONS: After initial lead position, the both the leads were dislodged requiring repositioning. There maybe mild submuscular the tumor on the left side PLAN: Continue to monitor him on the telemetry unit. Continue prophylactic antibiotics and pain medication as needed. Chest x-ray in the morning. Possible discharge within next 24 hours.
[2017-09-11] MEDS ORDERED: predniSONE 20 MG TAB PO PRN (11:13)
[2017-09-11] MEDS ORDERED: IPRATROPIUM 0.5 MG/2.5 ML NEBU INHALATION PRN (11:13)
[2017-09-11] MEDS: HYDROcodone/APAP 5-325MG 1 EACH TAB PO PRN ×3 (11:28→20:12)
[2017-09-11 11:30] LABS: Glucose,Whole Blood 148 mg/dL (75-99)
[2017-09-11] MEDS ORDERED: FERROUS SULFATE 325 MG TAB PO SCH (12:00)
[2017-09-11] MEDS: IPRATROPIUM-ALBUTEROL 3 ML NEB INHALATION SCH ×3 (12:18→19:19)
[2017-09-11] MEDS: INSULIN ASPART 100 UNIT/ML 1 ML 10 ML VIAL SQ SCH ×2 (14:14→18:26)
[2017-09-11] MEDS ORDERED: LORazepam 2 MG/ML INJ IV PRN ×2 (15:39)
[2017-09-11] MEDS ORDERED: THIAMINE 100 MG/ML 2 ML VIAL IM STA (15:39)
[2017-09-11] MEDS: ceFAZolin IN SWFI 2 GM/20 ML SYRINGE IVP SCH ×2 (15:49→20:12)
[2017-09-11 17:30] LABS: Glucose,Whole Blood 157 mg/dL (75-99)
[2017-09-11] MEDS: SYMBICORT 160-4.5 MCG INHALER INHALATION SCH (19:19)
[2017-09-11] MEDS: LORazepam 2 MG/ML INJ IV PRN (20:13)
[2017-09-11 20:54] LABS: Glucose,Whole Blood 191 mg/dL (75-99)
--- NOTE | 2017-09-11 23:21 | P.CONS ---
History of Present Illness - Reason for Consult Consult date: 09/11/17 Medical management of hypertension, COPD - Chief Complaint Sick sinus syndrome. Admitted for pacemaker placement - History of Present Illness Patient is a 61-year-old male with a known history of COPD, bradycardia with junctional rhythm and history of DVT, GERD, hyperlipidemia, hypertension and obstructive sleep apnea and chronic hypoxic respiratory failure on home oxygen dependent and multiple other medical problems was admitted to the hospital for elective placement of dual-chamber permanent pacemaker. Currently patient denied any complaints of chest pain or shortness of breath. Otherwise patient feels jittery and seems to be in alcohol withdrawal. No complaints of headache or dizziness. Patient was to be discharged home now. Otherwise patient denied any fever or chills. No nausea vomiting or abdominal pain. Patient is being continued on telemetry monitoring. Patient says he drinks occasionally and last drink was about a week ago. Pacemaker interrogation to be done tomorrow morning. Review of Systems Constitutional: Patient denies any fever or chills . No generalized weakness or weight loss. Abdomen: Patient denied nausea vomiting and diarrhea and abdominal pain. Cardiovascular: Patient denies any chest pain or short of breath no palpitations. Respiratory: patient denied any cough is from production. No shortness of breath Neurologic: Patient denied any numbness or tingling headache. Musculoskeletal: Patient denies any complaints of joint swelling or deformity. Skin: Negative Psychiatric: Negative Endocrine: No heat or cold intolerance. No recent weight gain. Genitourinary: No dysuria or hematuria. All other 14 point ROS negative except the above Past Medical History Past Medical History: Atrial Fibrillation, Heart Failure, COPD, Diabetes Mellitus, Deep Vein Thrombosis (DVT), GERD/Reflux, Hyperlipidemia, Hypertension , Sleep Apnea/CPAP/BIPAP Additional Past Medical History / Comment(s): See Dr Landeros's H&P, Other HX : Chronic hypoxic respiratory failure and the patient OXYGEN dependent between 3 1/2-4 L prn and at night, IDDM type II, paroxysmal AFIB, alcoholism, diverticulosis, obstuctive sleep apnea but no Cpap since wt loss, sinusitis, neuropathy bilateral feet,current tx prednisone History of Any Multi-Drug Resistant Organisms: None Reported Past Surgical History: Appendectomy, Cholecystectomy, Heart Catheterization Additional Past Surgical History / Comment(s): colonoscopy x 3, eyelid surgery bilaterally,partial liver removed,lysis of adhesions Past Anesthesia/Blood Transfusion Reactions: Postoperative Nausea & Vomiting ( PONV) Additional Past Anesthesia/Blood Transfusion Reaction / Comm: Pt states he has had PONV with gas only. Past Psychological History: Anxiety, Depression, Panic Disorder Additional Psychological History / Comment(s): He uses no assistive device. He drives. Smoking Status: Current every day smoker Past Alcohol Use History: Occasional Additional Past Alcohol Use History / Comment(s): PT states he currently smokes 10 cigarettes daily. Hx of alcoholism. He has hx of DTs. Past Drug Use History: None Reported Additional Drug Use History / Comment(s): Pt states in the s and he used a variety of drugs (unable to state which ones) but has not used any since. - Past Family History Mother Family Medical History: Thyroid Disorder Additional Family Medical History / Comment(s): Mother is 86 yrs. old. Father Additional Family Medical History / Comment(s): Father of diverticulitis, peritonitis at the age of 35yrs. Medications and Allergies Home Medications Medication Instructions Recorded Confirmed Type Budesonide-Formot 160-4.5 Mcg 2 puff INHALATION RT-BID 11/29/13 09/11/17 History [Symbicort 160-4.5 Mcg Inhaler] Tamsulosin [Flomax] 0.4 mg PO DAILY 06/23/16 09/11/17 History Aspirin EC [Ecotrin Low Dose] 81 mg PO DAILY 11/16/16 09/06/17 History Insulin Aspart [NovoLOG Flexpen] See Protocol SQ AC-TID 11/16/16 09/11/17 History Ipratropium Nebulized [Atrovent 0.5 mg INHALATION RT-Q4H PRN 11/16/16 09/11/17 History Nebulized] Ferrous Sulfate [Iron (65 MG 325 mg PO MOWEFR 04/23/17 09/11/17 History Elemental)] Furosemide [Lasix] 40 mg PO DAILY 04/23/17 09/11/17 History Ipratropium/Albuterol Sulfate 1 puff INHALATION RT-QID 04/23/17 09/11/17 History [Combivent Respimat Inhaler] Magnesium 1,000 mg PO DAILY 04/23/17 09/11/17 History Thiamine [Vitamin B-1] 100 mg PO DAILY 04/23/17 09/11/17 History HYDROcodone/APAP 10-325MG [[place] 1 tab PO Q6H PRN 09/06/17 09/11/17 History 10-325] predniSONE 20 mg PO DAILY PRN 09/06/17 09/11/17 History Allopurinol [Zyloprim] 100 mg PO DAILY 09/11/17 09/11/17 History Allergies Allergy/AdvReac Type Severity Reaction Status Date / Time No Known Allergies Allergy Verified 09/06/17 13:27 Physical Exam Vitals: Vital Signs Temp Pulse Pulse Pulse Resp BP Pulse Ox 09/11/17 20:00 97.7 F 76 16 133/75 95 09/11/17 19:31 72 09/11/17 19:19 76 09/11/17 16:00 16 09/11/17 15:06 89 121/69 91 L 09/11/17 13:30 79 134/72 92 L 09/11/17 13:00 78 110/65 91 L 09/11/17 12:30 89 129/66 93 L 09/11/17 12:15 88 140/71 92 L 09/11/17 12:00 84 142/81 91 L 09/11/17 11:45 97.6 F 71 16 128/72 94 L 09/11/17 08:05 98.2 F 72 20 137/65 96 Intake and Output 09/11/17 09/11/17 09/11/17 06:59 14:59 22:59 Intake Total 350 240 Balance 350 240 Intake: IV 350 Oral 240 Other: Voiding Method Urinal Toilet # Voids 1 PHYSICAL EXAMINATION: Patient is lying in the bed comfortably, no acute distress, awake alert and oriented.. HEENT: Normocephalic. Neck is supple. Pupils reactive. Nostrils clear. Oral cavity is moist. Ears reveal no drainage. Neck reveals no JVD, carotid bruits, or thyromegaly. CHEST EXAMINATION: Trachea is central. Symmetrical expansion. Bilateral diminished air entry and prolonged expiration. No wheezing nonlabored breathing CARDIAC: Normal S1, S2 with no gallops. No murmurs ABDOMEN: Soft. Bowel sounds normal. No organomegaly. No abdominal bruits. Extremities: reveal no edema. No clubbing or cyanosis Neurologically awake, alert, oriented x3 with well-coordinated movements. No focal deficits noted Skin: No rash or skin lesions. Psychiatric: Cooperative. Nonsuicidal Musculoskeletal: No joint swelling or deformity. Normal range of motion. Results CBC & Chem 7: 09/11/17 08:05 09/11/17 08:05 Labs: Abnormal Lab Results - Last 24 Hours (Table) 09/11/17 09/11/17 09/11/17 Range/Units 08:05 08:05 08:07 RBC 3.86 L (4.30-5.90) m/uL Hgb 12.6 L (13.0-17.5) gm/dL Hct 38.2 L (39.0-53.0) % Plt Count 125 L (150-450) k/uL Lymphocytes # 0.6 L (1.0-4.8) k/uL Potassium 5.5 H (3.5-5.1) mmol/L BUN 30 H (9-20) mg/dL Creatinine 1.31 H (0.66-1.25) mg/dL Glucose 182 H (74-99) mg/dL POC Glucose (mg/dL) 190 H (75-99) mg/dL 09/11/17 09/11/17 09/11/17 Range/Units 11:28 17:28 20:52 RBC (4.30-5.90) m/uL Hgb (13.0-17.5) gm/dL Hct (39.0-53.0) % Plt Count (150-450) k/uL Lymphocytes # (1.0-4.8) k/uL Potassium (3.5-5.1) mmol/L BUN (9-20) mg/dL Creatinine (0.66-1.25) mg/dL Glucose (74-99) mg/dL POC Glucose (mg/dL) 148 H 157 H 191 H (75-99) mg/dL Assessment and Plan Assessment: Sick sinus syndrome status post biventricular pacemaker placement Acute kidney injury likely prerenal. Creatinine 1.3 Chronic kidney disease stage III baseline creatinine 1.1 Mild hyperkalemia likely due to AKA I Hypertension controlled. Currently on Lasix only at home Hyperlipidemia Diabetes type 2. Not taking any medications at home currently. will check his B A1c Paroxysmal atrial fibrillation. Continue with aspirin COPD. Not in exacerbation Chronic hypoxic respiratory failure on oxygen dependent due to COPD Obstructive sleep apnea . No CPAP since weight loss Alcohol abuse. Monitor for withdrawal symptoms Bilateral feet diabetic neuropathy History of diverticulosis History of small bowel obstruction and lysis of adhesions Anxiety depression and panic disorder Nicotine addiction. Current every day smoker History of polysubstance abuse History of DVT GERD DVT prophylaxis 1: Patient will be continued on telemetry monitoring. Continue with the sliding scale and follow-up his B A1c. Repeat CBC and BMP tomorrow. Breathing treatments as needed. Monitor for alcohol withdrawal symptoms. Cardiology is planning to interrogated the pacemaker tomorrow. Continue the current management and home medications and follow closely. Patient was counseled extensively for alcohol abuse. Patient wants to be discharged home now. Discussed with the patient regarding importance of staying the hospital tonight to check the pacemaker functioned tomorrow. We will continue to follow closely Thank you for your consult. Time with Patient: Greater than 30
[2017-09-12] MEDS: HYDROcodone/APAP 5-325MG 1 EACH TAB PO PRN ×2 (01:46→06:02)
[2017-09-12] MEDS: SODIUM CHLORIDE 0.9% 1,000 ML IV SCH (01:51)
[2017-09-12] MEDS: ceFAZolin IN SWFI 2 GM/20 ML SYRINGE IVP SCH ×2 (02:00→08:35)
[2017-09-12 07:01] LABS: Glucose,Whole Blood 236 mg/dL (75-99)
[2017-09-12 07:30] LABS: Basophils % (A) 0 %; Eosinophils # (A) 0.1 k/uL (0-0.7); Eosinophils % (A) 1 %; HCT 37.1 % (39.0-53.0); Lymphocytes # (A) 1.7 k/uL (1.0-4.8); Lymphocytes % (A) 20 %; MCH 32.8 pg (25.0-35.0); MCHC 32.4 g/dL (31.0-37.0); MCV 101.1 fL (80.0-100.0); Macrocytosis Slight; Mean Platelet Volume 7.2; Monocytes # (A) 0.6 k/uL (0-1.0); Monocytes % (A) 7 %; Neutrophils # (A) 6.1 k/uL (1.3-7.7); Neutrophils % (A) 72 %; Platelet Count 125 k/uL (150-450); RBC 3.67 m/uL (4.30-5.90); RDW 13.8 % (11.5-15.5); WBC 8.5 k/uL (3.8-10.6)
[2017-09-12] MEDS: SYMBICORT 160-4.5 MCG INHALER INHALATION SCH (07:45)
[2017-09-12] MEDS: IPRATROPIUM-ALBUTEROL 3 ML NEB INHALATION SCH ×2 (07:45→11:54)
[2017-09-12 07:59] LABS: Calcium 9.5 mg/dL (8.4-10.2); Potassium 4.3 mmol/L (3.5-5.1)
[2017-09-12] MEDS: INSULIN ASPART 100 UNIT/ML 1 ML 10 ML VIAL SQ SCH (08:25)
--- NOTE | 2017-09-12 08:37 | XR ---
EXAMINATION TYPE: XR chest 2V DATE OF EXAM: 09/12/2017 COMPARISON: 04/23/1970 TECHNIQUE: PA and lateral views submitted. HISTORY: Pacemaker placement FINDINGS: The lungs are clear and there is no pneumothorax, pleural effusion, or focal pneumonia. Hyperinflat ion sizable pneumothorax. Some limitation with regard to left lung apex due to lack of enteric occlus ion. On suggests COPD. Double lead pacemaker seen with no evidence of IMPRESSION: 1. Pacemaker placement with no diagnostic evidence of pneumothorax.
[2017-09-12] MEDS ORDERED: MAGNESIUM OXIDE 400 MG TAB PO SCH (09:00)
[2017-09-12] MEDS ORDERED: ASPIRIN 81 MG PO SCH (09:00)
[2017-09-12] MEDS ORDERED: TAMSULOSIN 0.4 MG CAP.ER.24H PO SCH (09:00)
[2017-09-12] MEDS ORDERED: ALLOPURINOL 100 MG TAB PO SCH (09:00)
[2017-09-12] MEDS ORDERED: FUROSEMIDE 40 MG TAB PO SCH (09:00)
[2017-09-12] MEDS: LORazepam 2 MG/ML INJ IV PRN (10:28)
--- NOTE | 2017-09-12 11:31 | P.PCN ---
Date of Procedure: 09/12/17 Preoperative Diagnosis: Sick sinus syndrome Postoperative Diagnosis: The same Procedure(s) Performed: Dual-chamber permanent pacemaker implantation Description of Procedure: This patient is a 61-year-old gentleman with history of sick sinus syndrome. Patient had a dual-chamber permanent pacemaker yesterday. Patient tolerated the procedure well. Patient became agitated, threatening to leave the hospital yesterday. Patient was seen by hospitalist and was treated with Ativan. Patient otherwise remained stable overnight. His pacemaker site seemed to be soft without any significant hematoma. Chest x-ray showed proper lead position. Thresholds appear to be stable with fluctuating P-wave configuration. Patient is being discharged home after completion of antibiotics. Patient will continue home medications. He will is also given prescription for the prophylactic antibiotic. He was given usual instructions for post pacemaker insertion management at home. He is advised to not to lift the arm above the shoulder levels. He should report to our office if he develops any significant pain, swelling, fever or chills. Follow-up in the office in one week
[2017-09-12 11:38] VITALS: BP 116/71; RESP 18; TEMP 97.6
[2017-09-12] MEDS ORDERED: THIAMINE 100 MG TAB PO SCH (12:00)
[2017-09-12 12:05] VITALS: PULSE 72
[2017-09-12 12:54] LABS: Hemoglobin A1C 6.3 % (4.0-6.0)
--- NOTE | 2017-09-12 20:54 | PN ---
PROGRESS NOTE DATE OF SERVICE: 09/12/2017 This 61-year-old gentleman was admitted for his pacemaker implantation, was agitated yesterday, possibly secondary to alcohol withdrawal. Patient has improved significantly. No chest pain. No palpitations. No fever. EXAM: Alert and oriented x3. Pulse 67, blood pressure 116/70, respirations 18, temperature 97.6, pulse ox 98% on room air. HEENT: Conjunctivae normal. NECK: No jugular venous distention. CARDIOVASCULAR: S1, S2 muffled. RESPIRATORY: Breath sounds diminished in the bases. No rhonchi. No crackles. ABDOMEN: Soft, nontender. LEGS: No edema. NERVOUS SYSTEM: No focal deficit. LYMPHATIC: No lymphadenopathy in neck or axillae. SKIN: No ulcer, rash or bleeding. CHEST: Status post pacemaker placement. LABS: Hemoglobin 12. Creatinine is 1.35. ASSESSMENT: 1. Status post pacemaker placement for sick sinus syndrome. 2. Change in mental status, agitation secondary to alcohol withdrawal. 3. Acute kidney injury, possible prerenal. 4. Chronic kidney disease. 5. Hypertension. 6. Hyperlipidemia. 7. Diabetes mellitus type 2. RECOMMENDATIONS AND DISCUSSION: I recommend to continue current medical management and symptomatic treatment. Recommend p.r.n. Ativan, alcohol cessation. I would also recommend continued monitoring in the outpatient setting. Otherwise, we will follow the patient closely. MMAKUAL / IJN: [id number] /
== END 2017-09-12 12:30 | disposition home or self-care (01) ==
LOC: CATHEP 07:42 → 3OBS 10:47 → CATHEP 09-12 12:30
PROVIDERS: ATTEND Internal Medicine Cardiovascular Disease
DX: I49.5 Sick sinus syndrome (principal); I48.0 Paroxysmal atrial fibrillation; N17.9 Acute kidney failure, unspecified; F10.239 Alcohol dependence with withdrawal, unspecified; I13.0 Hypertensive heart and chronic kidney disease with heart failure and stage 1 through stage 4 chronic kidney disease, or unspecified chronic kidney disease; E11.22 Type 2 diabetes mellitus with diabetic chronic kidney disease; N18.3 Chronic kidney disease, stage 3 (moderate); I50.9 Heart failure, unspecified; E11.40 Type 2 diabetes mellitus with diabetic neuropathy, unspecified; E87.5 Hyperkalemia; E78.5 Hyperlipidemia, unspecified; J44.9 Chronic obstructive pulmonary disease, unspecified; J96.11 Chronic respiratory failure with hypoxia; G47.33 Obstructive sleep apnea (adult) (pediatric); F41.9 Anxiety disorder, unspecified; F32.9 Major depressive disorder, single episode, unspecified; F41.0 Panic disorder [episodic paroxysmal anxiety]; I42.9 Cardiomyopathy, unspecified; I73.9 Peripheral vascular disease, unspecified; I95.0 Idiopathic hypotension; K21.9 Gastro-esophageal reflux disease without esophagitis; F17.210 Nicotine dependence, cigarettes, uncomplicated; Z99.81 Dependence on supplemental oxygen; Z79.4 Long term (current) use of insulin; Z79.82 Long term (current) use of aspirin; Z79.51 Long term (current) use of inhaled steroids; Z79.899 Other long term (current) drug therapy; Z86.718 Personal history of other venous thrombosis and embolism; Z87.19 Personal history of other diseases of the digestive system
CPT/HCPCS: 94640 ×3; 33208; 80048 ×2; 85025 ×2; 83036; 71046; C1892; C1898; C1769; C1785; J2250; J2060 ×2; J2001; J3010; J0131; J0690 ×2; Q9966

== ENCOUNTER 2017-10-03 16:44 | Emergency (ER) | payer OTHER ==
--- NOTE | 2017-10-03 17:52 | ED ---
Extremity Problem HPI - General Chief complaint: Extremity Problem,Nontraumatic Stated complaint: Swollen arm, poss infection Time Seen by Provider: 10/03/17 17:17 Source: patient, RN notes reviewed, old records reviewed Mode of arrival: ambulatory Limitations: no limitations - History of Present Illness Initial comments: 61-year-old male with a recent pacemaker placement presents emergency Department with left upper extremity swelling and lymphedema. He reports these orders had chronic bruising over his legs he reports is also some increased bruising over his left arm. He states that he's been increased on his Lasix due to the swelling in his arm. He was sent here for further evaluation to rule out infection and possible blood clot. Patient states that after doing more work yesterday moving his shoulder he noticed increased swelling and pain on the left wrist and hand today. Patient states that he has had no fever or chills. He denies any chest pain or shortness of breath. - Related Data Home Medications Medication Instructions Recorded Confirmed Budesonide-Formot 160-4.5 Mcg 2 puff INHALATION RT-BID 11/29/13 10/03/17 [Symbicort 160-4.5 Mcg Inhaler] Tamsulosin [Flomax] 0.4 mg PO DAILY 06/23/16 10/03/17 Aspirin EC [Ecotrin Low Dose] 81 mg PO DAILY 11/16/16 10/03/17 Insulin Aspart [NovoLOG Flexpen] See Protocol SQ AC-TID 11/16/16 10/03/17 Ipratropium Nebulized [Atrovent 0.5 mg INHALATION RT-Q4H PRN 11/16/16 10/03/17 Nebulized] Ferrous Sulfate [Iron (65 MG 325 mg PO MOWEFR 04/23/17 10/03/17 Elemental)] Furosemide [Lasix] 40 mg PO DAILY 04/23/17 10/03/17 Ipratropium/Albuterol Sulfate 1 puff INHALATION RT-QID 04/23/17 10/03/17 [Combivent Respimat Inhaler] Magnesium 1,000 mg PO DAILY 04/23/17 10/03/17 Thiamine [Vitamin B-1] 100 mg PO DAILY 04/23/17 10/03/17 HYDROcodone/APAP 10-325MG [[place] 1 tab PO Q6H PRN 09/06/17 10/03/17 10-325] predniSONE 20 mg PO DAILY PRN 09/06/17 10/03/17 Allopurinol [Zyloprim] 100 mg PO DAILY 09/11/17 10/03/17 Pantoprazole Sodium [Protonix] 40 mg PO DAILY 10/03/17 10/03/17 Allergies Allergy/AdvReac Type Severity Reaction Status Date / Time No Known Allergies Allergy Verified 10/03/17 18:13 Review of Systems ROS Statement: Those systems with pertinent positive or pertinent negative responses have been documented in the HPI. ROS Other: All systems not noted in ROS Statement are negative. Past Medical History Past Medical History: Atrial Fibrillation, Heart Failure, COPD, Diabetes Mellitus, Deep Vein Thrombosis (DVT), GERD/Reflux, Hyperlipidemia, Hypertension , Sleep Apnea/CPAP/BIPAP Additional Past Medical History / Comment(s): See Dr Landeros's H&P, Other HX : Chronic hypoxic respiratory failure and the patient OXYGEN dependent between 3 1/2-4 L prn and at night, IDDM type II, paroxysmal AFIB, alcoholism, diverticulosis, obstuctive sleep apnea but no Cpap since wt loss, sinusitis, neuropathy bilateral feet,current tx prednisone History of Any Multi-Drug Resistant Organisms: None Reported Past Surgical History: Appendectomy, Cholecystectomy, Heart Catheterization Additional Past Surgical History / Comment(s): colonoscopy x 3, eyelid surgery bilaterally,partial liver removed,lysis of adhesions Past Anesthesia/Blood Transfusion Reactions: Postoperative Nausea & Vomiting ( PONV) Additional Past Anesthesia/Blood Transfusion Reaction / Comment(s): Pt states he has had PONV with gas only. Past Psychological History: Anxiety, Depression, Panic Disorder Smoking Status: Current every day smoker Past Alcohol Use History: Occasional Past Drug Use History: None Reported - Past Family History Mother Family Medical History: Thyroid Disorder Additional Family Medical History / Comment(s): Mother is 86 yrs. old. Father Additional Family Medical History / Comment(s): Father of diverticulitis, peritonitis at the age of 35yrs. General Exam - General Exam Comments Initial Comments: This is a 61-year-old male. Alert and oriented. No acute distress. Limitations: no limitations General appearance: alert, in no apparent distress Head exam: Present: atraumatic, normocephalic, normal inspection Eye exam: Present: normal appearance, PERRL, EOMI. Absent: scleral icterus, conjunctival injection, periorbital swelling ENT exam: Present: normal exam, mucous membranes moist Neck exam: Present: normal inspection. Absent: tenderness, meningismus, lymphadenopathy Respiratory exam: Present: normal lung sounds bilaterally. Absent: respiratory distress, wheezes, rales, rhonchi, stridor Cardiovascular Exam: Present: regular rate, normal rhythm, normal heart sounds. Absent: systolic murmur, diastolic murmur, rubs, gallop, clicks GI/Abdominal exam: Present: soft, normal bowel sounds. Absent: distended, tenderness, guarding, rebound, rigid Extremities exam: Present: normal inspection, full ROM, normal capillary refill. Absent: tenderness, pedal edema, joint swelling, calf tenderness Left Upper Arm exam: Present: normal inspection, full ROM Elbow exam: Present: normal inspection, full ROM Forearm Wrist exam: Present: normal inspection, full ROM Hand Wrist exam: Present: full ROM, swelling (Evidence of what appears to be dependent edema hand and wrist.), ecchymosis (Ecchymosis noted. Patient has very thin skin.). Absent: normal inspection Neuro motor exam: Present: wrist extension intact, thumb opposition intact, thumb IP flexion intact, thumb adduction intact, fingers 2-5 abduction intact Vascular: Present: normal capillary refill Back exam: Present: normal inspection Neurological exam: Present: alert, oriented X3, CN II-XII intact Psychiatric exam: Present: normal affect, normal mood Skin exam: Present: warm, dry, intact, normal color. Absent: rash Course Vital Signs 10/03/17 10/03/17 17:07 20:16 Temperature 98.1 F 98.2 F Pulse Rate 86 84 Respiratory 20 18 Rate Blood Pressure 119/75 135/69 O2 Sat by Pulse 96 97 Oximetry Medical Decision Making - Medical Decision Making 61-year-old male with a recent pacemaker placement presents emergency Department with left upper extremity swelling and lymphedema. He reports these orders had chronic bruising over his legs he reports is also some increased bruising over his left arm. He states that he's been increased on his Lasix due to the swelling in his arm. He was sent here for further evaluation to rule out infection and possible blood clot. Patient US is negative for DVT. PAtient labs were reviewed. WBC within normal limits. BUN and CR are slightly elevated, likely relatd to recent increase in lasix. Patient informed of results. Patient edema is likely dependent. With contusions on arms, Platelets and coags are normal. Discussed follow up with PCP and return parameters discussed. - Lab Data Result diagrams: 10/03/17 17:43 10/03/17 17:43 Lab Results 10/03/17 10/03/17 10/03/17 Range/Units 17:43 17:43 17:43 WBC 10.6 (3.8-10.6) k/uL RBC 4.23 L (4.30-5.90) m/uL Hgb 13.8 (13.0-17.5) gm/dL Hct 41.7 (39.0-53.0) % MCV 98.7 (80.0-100.0) fL MCH 32.7 (25.0-35.0) pg MCHC 33.2 (31.0-37.0) g/dL RDW 13.3 (11.5-15.5) % Plt Count 157 (150-450) k/uL Neutrophils % 85 % Lymphocytes % 9 % Monocytes % 4 % Eosinophils % 1 % Basophils % 0 % Neutrophils # 9.0 H (1.3-7.7) k/uL Lymphocytes # 1.0 (1.0-4.8) k/uL Monocytes # 0.4 (0-1.0) k/uL Eosinophils # 0.1 (0-0.7) k/uL Basophils # 0.0 (0-0.2) k/uL PT 10.5 (9.0-12.0) sec INR 1.1 (<1.2) APTT 22.5 (22.0-30.0) sec Sodium 135 L (137-145) mmol/L Potassium 4.7 (3.5-5.1) mmol/L Chloride 93 L (98-107) mmol/L Carbon Dioxide 27 (22-30) mmol/L Anion Gap 15 mmol/L BUN 40 H (9-20) mg/dL Creatinine 1.58 H (0.66-1.25) mg/dL Est GFR (CKD-EPI)AfAm 54 (>60 ml/min/1.73 sqM) Est GFR (CKD-EPI)NonAf 47 (>60 ml/min/1.73 sqM) Glucose 158 H (74-99) mg/dL Calcium 10.2 (8.4-10.2) mg/dL Total Bilirubin 0.8 (0.2-1.3) mg/dL AST 32 (17-59) U/L ALT 37 (21-72) U/L Alkaline Phosphatase 79 (38-126) U/L Total Protein 6.9 (6.3-8.2) g/dL Albumin 4.7 (3.5-5.0) g/dL - Radiology Data Radiology results: report reviewed US is negative for DVT of left upper extremity. Disposition Clinical Impression: Left arm swelling Disposition: HOME SELF-CARE Condition: Good Instructions: Edema (ED) Additional Instructions: Patient has a follow-up with your primary care physician in regards to the arm swelling as well as recheck the kidney function. Rest, remain hydrated. Return to the emergency department if any alarming signs or symptoms occur. Keep the arm up and elevated. Is patient prescribed a controlled substance at d/c from ED?: No When asked, does pt state using other controlled substances?: No If prescribed controlled substance>3 days was MAPS reviewed?: No If opioid is for acute pain is fill amount 7 days or less?: No If Rx opioid, was Start Talking consent form obtained?: No Referrals: [facility],Clinic [Primary Care Provider] - 1-2 days Time of Disposition: 20:08
[2017-10-03 17:54] LABS: Basophils % (A) 0 %; Eosinophils # (A) 0.1 k/uL (0-0.7); Eosinophils % (A) 1 %; HCT 41.7 % (39.0-53.0); HGB 13.8 gm/dL (13.0-17.5); Lymphocytes % (A) 9 %; MCH 32.7 pg (25.0-35.0); MCHC 33.2 g/dL (31.0-37.0); MCV 98.7 fL (80.0-100.0); Mean Platelet Volume 7.6; Monocytes # (A) 0.4 k/uL (0-1.0); Monocytes % (A) 4 %; Neutrophils % (A) 85 %; Platelet Count 157 k/uL (150-450); RBC 4.23 m/uL (4.30-5.90); RDW 13.3 % (11.5-15.5); WBC 10.6 k/uL (3.8-10.6)
[2017-10-03 18:04] LABS: Albumin 4.7 g/dL (3.5-5.0); Calcium 10.2 mg/dL (8.4-10.2); INR 1.1 (<1.2); Potassium 4.7 mmol/L (3.5-5.1); Prothrombin Time 10.5 sec (9.0-12.0); Total Bilirubin 0.8 mg/dL (0.2-1.3); Total Protein 6.9 g/dL (6.3-8.2)
[2017-10-03 18:10] LABS: Partial Thromboplastin Time 22.5 sec (22.0-30.0)
--- NOTE | 2017-10-03 19:46 | US ---
EXAMINATION TYPE: US venous doppler duplex UE LT DATE OF EXAM: 10/03/2017 COMPARISON: NONE CLINICAL HISTORY: Pain. Left arm swelling exam limitations due to patient position. SIDE PERFORMED: Left Grayscale, color doppler, spectral doppler imaging performed of the deep veins of the upper extremiti es. There is normal flow, compressibility and vascular waveforms. Left Arm: Negative for DVT Visualized portions of the internal jugular and subclavian vein show color flow, normal vascular wave forms. Radial and ulnar veins appear patent, basilic vein, brachial vein is patent. Axilla vein is pa tent. IMPRESSION: No evident deep venous thrombosis in the left upper extremity
[2017-10-03 20:18] VITALS: BP 135/69; PULSE 84; RESP 18; TEMP 98.2
== END 2017-10-03 20:17 | disposition home or self-care (01) ==
LOC: EC 16:44
DX: M79.89 Other specified soft tissue disorders (principal); I48.91 Unspecified atrial fibrillation; J44.9 Chronic obstructive pulmonary disease, unspecified; I11.0 Hypertensive heart disease with heart failure; I50.9 Heart failure, unspecified; E78.5 Hyperlipidemia, unspecified; K21.9 Gastro-esophageal reflux disease without esophagitis; E11.40 Type 2 diabetes mellitus with diabetic neuropathy, unspecified; F32.9 Major depressive disorder, single episode, unspecified; F41.0 Panic disorder [episodic paroxysmal anxiety]; F17.200 Nicotine dependence, unspecified, uncomplicated; Z95.818 Presence of other cardiac implants and grafts; Z86.718 Personal history of other venous thrombosis and embolism; J96.90 Respiratory failure, unspecified, unspecified whether with hypoxia or hypercapnia; Z95.0 Presence of cardiac pacemaker; Z79.51 Long term (current) use of inhaled steroids; Z79.82 Long term (current) use of aspirin; Z79.4 Long term (current) use of insulin; Z79.52 Long term (current) use of systemic steroids; Z79.899 Other long term (current) drug therapy
CPT/HCPCS: 36415; 80053; 85025; 85610; 85730; 99284

== ENCOUNTER 2017-11-15 05:34 | Emergency (ER) | payer MEDICARE, OTHER ==
[2017-11-15 05:55] VITALS: RESP 18
[2017-11-15] MEDS ORDERED: DEXAMETHASONE SOD PHOSPHATE 10 MG/ML 1 ML VIAL IM STA (06:05)
[2017-11-15] MEDS ORDERED: IPRATROPIUM-ALBUTEROL 3 ML NEB INHALATION STA (06:05)
[2017-11-15] MEDS ORDERED: DIPH,PERTUS(ACELL)TETVAC-LF 0.5 ML VIAL IM ONE (06:08)
--- NOTE | 2017-11-15 06:11 | ED ---
General Adult HPI - General Chief complaint: Fall Stated complaint: JANEY, Fall-rib injury Time Seen by Provider: 11/15/17 05:46 Source: patient, RN notes reviewed Mode of arrival: wheelchair Limitations: no limitations - History of Present Illness Initial comments: 62-year-old male presents with left-sided chest pain and difficulty breathing. Patient states that 4 days prior he fell down several steps striking his left elbow and his left chest wall. He felt a pop at this time. He is had progressively worsening pain. Patient is also had dyspnea over the past 24 hours. He does have history of COPD and is a current smoker. He denies any head or neck trauma. Denies pain anywhere other than his lateral chest wall on the left. He states he feels a popping sensation when he breathes deep. Patient is not on anticoagulation. - Related Data Home Medications Medication Instructions Recorded Confirmed Budesonide-Formot 160-4.5 Mcg 2 puff INHALATION RT-BID 11/29/13 10/03/17 [Symbicort 160-4.5 Mcg Inhaler] Tamsulosin [Flomax] 0.4 mg PO DAILY 06/23/16 10/03/17 Aspirin EC [Ecotrin Low Dose] 81 mg PO DAILY 11/16/16 10/03/17 Insulin Aspart [NovoLOG Flexpen] See Protocol SQ AC-TID 11/16/16 10/03/17 Ipratropium Nebulized [Atrovent 0.5 mg INHALATION RT-Q4H PRN 11/16/16 10/03/17 Nebulized] Ferrous Sulfate [Iron (65 MG 325 mg PO MOWEFR 04/23/17 10/03/17 Elemental)] Furosemide [Lasix] 40 mg PO DAILY 04/23/17 10/03/17 Ipratropium/Albuterol Sulfate 1 puff INHALATION RT-QID 04/23/17 10/03/17 [Combivent Respimat Inhaler] Magnesium 1,000 mg PO DAILY 04/23/17 10/03/17 Thiamine [Vitamin B-1] 100 mg PO DAILY 04/23/17 10/03/17 HYDROcodone/APAP 10-325MG [[place] 1 tab PO Q6H PRN 09/06/17 10/03/17 10-325] predniSONE 20 mg PO DAILY PRN 09/06/17 10/03/17 Allopurinol [Zyloprim] 100 mg PO DAILY 09/11/17 10/03/17 Pantoprazole Sodium [Protonix] 40 mg PO DAILY 10/03/17 10/03/17 Previous Rx's Medication Instructions Recorded Azithromycin [Zithromax Z-pack] 0 mg PO DIRECTED #6 tab 11/15/17 HYDROcodone/APAP 5-325MG [[place] 1 tab PO Q6HR PRN #12 tab 11/15/17 5-325] predniSONE 50 mg PO DAILY #5 tab 11/15/17 Allergies Allergy/AdvReac Type Severity Reaction Status Date / Time No Known Allergies Allergy Verified 10/03/17 18:13 Review of Systems ROS Statement: Those systems with pertinent positive or pertinent negative responses have been documented in the HPI. ROS Other: All systems not noted in ROS Statement are negative. Past Medical History Past Medical History: Atrial Fibrillation, Heart Failure, COPD, Diabetes Mellitus, Deep Vein Thrombosis (DVT), GERD/Reflux, Hyperlipidemia, Hypertension , Sleep Apnea/CPAP/BIPAP Additional Past Medical History / Comment(s): See Dr Landeros's H&P, Other HX : Chronic hypoxic respiratory failure and the patient OXYGEN dependent between 3 1/2-4 L prn and at night, IDDM type II, paroxysmal AFIB, alcoholism, diverticulosis, obstuctive sleep apnea but no Cpap since wt loss, sinusitis, neuropathy bilateral feet,current tx prednisone History of Any Multi-Drug Resistant Organisms: None Reported Past Surgical History: Appendectomy, Cholecystectomy, Heart Catheterization Additional Past Surgical History / Comment(s): colonoscopy x 3, eyelid surgery bilaterally,partial liver removed,lysis of adhesions Past Anesthesia/Blood Transfusion Reactions: Postoperative Nausea & Vomiting ( PONV) Additional Past Anesthesia/Blood Transfusion Reaction / Comment(s): Pt states he has had PONV with gas only. Past Psychological History: Anxiety, Depression, Panic Disorder Smoking Status: Current some day smoker Past Alcohol Use History: Occasional Past Drug Use History: None Reported - Past Family History Mother Family Medical History: Thyroid Disorder Additional Family Medical History / Comment(s): Mother is 86 yrs. old. Father Additional Family Medical History / Comment(s): Father of diverticulitis, peritonitis at the age of 35yrs. General Exam Limitations: no limitations General appearance: alert, in no apparent distress Head exam: Present: atraumatic, normocephalic Eye exam: Present: normal appearance, PERRL, EOMI ENT exam: Present: normal exam Neck exam: Present: normal inspection, full ROM. Absent: tenderness, meningismus Respiratory exam: Present: wheezes, rhonchi, decreased breath sounds Cardiovascular Exam: Present: regular rate, normal rhythm GI/Abdominal exam: Present: soft. Absent: distended, tenderness Extremities exam: Present: other (Skin tear, left dorsal forearm just distal to the elbow). Absent: pedal edema Back exam: Present: normal inspection. Absent: vertebral tenderness Neurological exam: Present: alert, oriented X3, CN II-XII intact. Absent: motor sensory deficit Psychiatric exam: Present: normal affect, normal mood Skin exam: Present: warm, dry, intact. Absent: cyanosis, diaphoretic Course Vital Signs 11/15/17 11/15/17 11/15/17 05:40 05:53 06:27 Temperature 97.6 F Pulse Rate 86 88 Respiratory 20 18 Rate Blood Pressure 149/91 O2 Sat by Pulse 98 Oximetry 11/15/17 06:34 Temperature Pulse Rate 88 Respiratory Rate Blood Pressure O2 Sat by Pulse Oximetry Medical Decision Making - Medical Decision Making 65-year-old male with left chest wall pain status post fall. Patient has significant tenderness on exam. Bilateral wheezing secondary to COPD. Chest x- rays obtained, negative for pneumothorax, there is fracture of the fifth sixth and seventh rib laterally consistent with his pain. Patient has an incentive spirometer at home. He will also be treated for COPD exacerbation. He will return with the development of any fever or worsening dyspnea. Disposition Clinical Impression: COPD exacerbation, Ribs, multiple fractures Disposition: HOME SELF-CARE Condition: Fair Instructions: COPD (Chronic Obstructive Pulmonary Disease) (ED), Rib Fracture ( ED) Prescriptions: Azithromycin [Zithromax Z-pack] 0 mg PO DIRECTED #6 tab HYDROcodone/APAP 5-325MG [[place] 5-325] 1 tab PO Q6HR PRN #12 tab PRN Reason: Pain predniSONE 50 mg PO DAILY #5 tab Is patient prescribed a controlled substance at d/c from ED?: Yes If prescribed controlled substance>3 days was MAPS reviewed?: Prescribed <3 Days Referrals: [facility],Clinic [Primary Care Provider] - 1-2 days Time of Disposition: 07:04
--- NOTE | 2017-11-15 06:49 | XR ---
EXAM: XR Left Ribs and AP Chest, 3 or More Views CLINICAL HISTORY: Pt fell off ladder 3 days ago Left side rib pain. TECHNIQUE: Frontal and oblique views of the left ribs and frontal view of the chest. COMPARISON: No relevant prior studies available. FINDINGS: Lungs: Unremarkable. No consolidation. Pleural space: No pneumothorax. Heart: Unremarkable. No cardiomegaly. Mediastinum: Unremarkable. Bones/joints: Left sixth and seventh and perhaps fifth lateral rib fractures on series 4. Tubes, lines and devices: Left chest wall pacemaker. IMPRESSION: Left sixth and seventh and perhaps fifth lateral rib fractures.
[2017-11-15 07:04] VITALS: BP 130/77; PULSE 71
[2017-11-15 07:10] VITALS: TEMP 97.2
== END 2017-11-15 07:09 | disposition home or self-care (01) ==
LOC: EC 05:34
DX: S22.42XA Multiple fractures of ribs, left side, initial encounter for closed fracture (principal); J44.1 Chronic obstructive pulmonary disease with (acute) exacerbation; S51.812A Laceration without foreign body of left forearm, initial encounter; I11.0 Hypertensive heart disease with heart failure; I50.9 Heart failure, unspecified; E11.40 Type 2 diabetes mellitus with diabetic neuropathy, unspecified; K21.9 Gastro-esophageal reflux disease without esophagitis; I48.0 Paroxysmal atrial fibrillation; F17.200 Nicotine dependence, unspecified, uncomplicated; G47.33 Obstructive sleep apnea (adult) (pediatric); Z99.89 Dependence on other enabling machines and devices; Z95.818 Presence of other cardiac implants and grafts; Z79.51 Long term (current) use of inhaled steroids; Z79.82 Long term (current) use of aspirin; Z79.4 Long term (current) use of insulin; Z79.899 Other long term (current) drug therapy; Z53.8 Procedure and treatment not carried out for other reasons; W10.9XXA Fall (on) (from) unspecified stairs and steps, initial encounter
CPT/HCPCS: 99283; 96372; 94640; 71101; J1100

== ENCOUNTER → 2018-01-02 | Outpatient (CLI) | payer MEDICARE, OTHER ==
--- NOTE | 2018-01-02 10:45 | FL ---
EXAMINATION TYPE: FL barium swallow DATE OF EXAM: 01/02/2018 COMPARISON: None HISTORY: Dysphasia TECHNIQUE: A double air contrast esophagram is performed. FINDINGS: Esophagus dilates to normal caliber has normal contour to the gastroesophageal junction. Gastroesopha geal junction caliber. Multiple tertiary contractions were evident during the examination compatible with presbyesophagus. The patient was experiencing noted throughout the examination and following the horizontal drinking view patient refused any additional imaging. There is complete stripping esophag eal bolus the horizontal drinking position. No free air is noted during this examination. Fluoroscopy time: 41 seconds Images: 10 No overhead radiographs were obtained. Patient refused additional imaging. Patient was experiencing n ausea. IMPRESSIONS: 1. Presbyesophagus.
--- NOTE | 2018-01-02 13:02 | CT ---
EXAMINATION TYPE: CT soft tissue neck w con DATE OF EXAM: 01/02/2018 COMPARISON: None HISTORY: dysphagia CT DLP: 553 mGycm CONTRAST: Patient injected with 100 mL of Isovue 300. TECHNIQUE: Axial images at 3 mm thick sections. Reconstructed images in the coronal plane and sagitt al plane are reviewed. FINDINGS: Limited CT sections are obtained the lung apices. The lung apices appear clear. CT neck: The torus tubarius and fossa of Rosenmuller are normal. Instrumentation Technologist spaces are normal. Para nasal sinuses and mastoid air cells are clear. Parotid glands appear normal and symmetrical. Submandibular glands, are normal. Parapharyngeal spac es are normal. No suspicious adenopathy is evident. The hypopharynx appears within normal limits. Vocal cord level appear symmetrical. Thyroid as visualized is normal. Osseous structures are normal. There is some degenerative disc changes within the cervical spine. IMPRESSIONS: 1. No suspicious acute changes CT soft tissue neck
== END | disposition home or self-care (01) ==
LOC: RADFLMAIN 09:06
PROVIDERS: ATTEND Otolaryngology
DX: K22.8 Other specified diseases of esophagus (principal); R22.1 Localized swelling, mass and lump, neck; R05 Cough
CPT/HCPCS: 82565; 84520; 74220; 70491; Q9967

== ENCOUNTER 2018-09-30 19:04 | Inpatient (IN) | payer OTHER, MEDICARE ==
[2018-09-30] MEDS ORDERED: IPRATROPIUM-ALBUTEROL 3 ML NEB INHALATION PRN (19:10)
[2018-09-30] MEDS ORDERED: methylPREDNISolone SOD SUCCI 125 MG/2 ML VIAL IV STA (19:10)
--- NOTE | 2018-09-30 19:13 | ED ---
SOB HPI - General Stated Complaint: JANEY Time Seen by Provider: 09/30/18 19:06 Source: RN notes reviewed, old records reviewed - History of Present Illness Initial Comments: This is a 62-year-old male the ER for evasive significant shortness of breath and chest pain. Patient's history of CHF and asthma. This is worse his breath ing ever been. He admits to being severely anxious sweaty. No prior history of similar complaint, yes he has history of pneumothorax. No recent trauma. No fever cough or congestion MD Complaint: shortness of breath, cough, pain with inspiration, anxiety -: hour(s) Radiation: back, left arm, neck Severity: severe Severity scale (1-10): 8 Quality: aching, sharp, stabbing Consistency: constant Improves With: nothing Worsens With: nothing Known History Of: COPD, congestive heart failure Context: anxiety Associated Symptoms: chest pain, pain with inspiration, cough Treatments Prior to Arrival: none - Related Data Home Medications Medication Instructions Recorded Confirmed Tamsulosin [Flomax] 0.4 mg PO DAILY 06/23/16 09/30/18 Furosemide [Lasix] 40 mg PO Q48H 04/23/17 09/30/18 HYDROcodone/APAP 10-325MG [[place] 1 tab PO Q6H PRN 09/06/17 09/30/18 10-325] Pantoprazole Sodium [Protonix] 40 mg PO DAILY 10/03/17 09/30/18 Atorvastatin Calcium [Lipitor] 10 mg PO HS 09/30/18 09/30/18 Cyclobenzaprine [Flexeril] 10 mg PO TID PRN 09/30/18 09/30/18 Metoprolol Tartrate [Lopressor] 50 mg PO BID 09/30/18 09/30/18 Ondansetron HCl [Zofran] 4 mg PO BID PRN 09/30/18 09/30/18 amLODIPine [Norvasc] 5 mg PO DAILY 09/30/18 09/30/18 Allergies Allergy/AdvReac Type Severity Reaction Status Date / Time No Known Allergies Allergy Verified 09/30/18 19:43 Review of Systems ROS Statement: Those systems with pertinent positive or pertinent negative responses have been documented in the HPI. ROS Other: All systems not noted in ROS Statement are negative. Past Medical History Past Medical History: Atrial Fibrillation, Heart Failure, COPD, Diabetes Mellitus, Deep Vein Thrombosis (DVT), GERD/Reflux, Hyperlipidemia, Hypertension, Sleep Apnea/CPAP/BIPAP Additional Past Medical History / Comment(s): See Dr Landeros's H&P, Other HX: Chronic hypoxic respiratory failure and the patient OXYGEN dependent between 3 1/2-4 L prn and at night, IDDM type II, paroxysmal AFIB, alcoholism, diverticulosis, obstuctive sleep apnea but no Cpap since wt loss, sinusitis, neuropathy bilateral feet,current tx prednisone History of Any Multi-Drug Resistant Organisms: None Reported Past Surgical History: Appendectomy, Cholecystectomy, Heart Catheterization Additional Past Surgical History / Comment(s): colonoscopy x 3, eyelid surgery bilaterally,partial liver removed,lysis of adhesions Past Anesthesia/Blood Transfusion Reactions: Postoperative Nausea & Vomiting (PONV) Additional Past Anesthesia/Blood Transfusion Reaction / Comment(s): Pt states he has had PONV with gas only. Past Psychological History: Anxiety, Depression, Panic Disorder Smoking Status: Current some day smoker Past Alcohol Use History: Occasional Past Drug Use History: None Reported - Past Family History Mother Family Medical History: Thyroid Disorder Additional Family Medical History / Comment(s): Mother is 86 yrs. old. Father Additional Family Medical History / Comment(s): Father of diverticulitis,peritonitis at the age of 35yrs. General Exam General appearance: alert, anxious, in distress Head exam: Present: atraumatic, normocephalic, normal inspection Eye exam: Present: normal appearance, PERRL, EOMI. Absent: scleral icterus, conjunctival injection, periorbital swelling ENT exam: Present: normal exam, mucous membranes moist Neck exam: Present: normal inspection. Absent: tenderness, meningismus, lymphadenopathy Respiratory exam: Present: normal lung sounds bilaterally. Absent: respiratory distress, wheezes, rales, rhonchi, stridor Cardiovascular Exam: Present: regular rate, normal rhythm, normal heart sounds. Absent: systolic murmur, diastolic murmur, rubs, gallop, clicks GI/Abdominal exam: Present: soft, normal bowel sounds. Absent: distended, tenderness, guarding, rebound, rigid Extremities exam: Present: normal inspection, full ROM, normal capillary refill. Absent: tenderness, pedal edema, joint swelling, calf tenderness Back exam: Present: normal inspection Neurological exam: Present: alert, oriented X3, CN II-XII intact Psychiatric exam: Present: normal affect, normal mood Skin exam: Present: warm, dry, intact, normal color. Absent: rash Course Vital Signs 09/30/18 09/30/18 09/30/18 19:08 19:27 19:28 Temperature 98.7 F Pulse Rate 84 82 74 Respiratory 22 30 H Rate Blood Pressure 175/101 153/94 O2 Sat by Pulse 83 L 93 L Oximetry 09/30/18 09/30/18 19:43 20:27 Temperature Pulse Rate 78 81 Respiratory 20 Rate Blood Pressure 139/89 O2 Sat by Pulse 100 Oximetry - Reevaluation(s) Reevaluation #1: Medical records reviewed X-ray reviewed showing positive pneumothorax, chest tube is placed with significant improvement and resolution, patient symptoms improved Procedures - Chest Tube Insertion Consent Obtained: verbal consent Side of Procedure: left Indication: Pneumothorax Placed on monitor/pulse oximetry: Yes Site Prep: Povidone-Iodine, Chloroprep Local Anesthesia: Lidocaine 1%, With Epi Insertion Site: Other (3rs ashlie calvicular) Tube Size (Ukrainian): 16 Returns: Air Sutured in Place: No Type of Suction: Pleuravac Repeat X-ray Results: Lung Inflated Patient Tolerated Procedure: well Complications: Bleeding Medical Decision Making - Medical Decision Making 62 male the ER for evaluation of chest pain shortness of breath positive pneumothorax resolved with sore event, patient can be admitted for further cardiopulmonary care - Lab Data Result diagrams: 09/30/18 19:12 09/30/18 19:12 - EKG Data -: EKG Interpreted by Me (EKG shows sinus rhythm rate of 84, NC 164, QRS 120, QTC 479) - Radiology Data Radiology results: report reviewed (CXR positive for ptx), image reviewed Critical Care Time Critical Care Time: Yes Total Critical Care Time: 31 Disposition Clinical Impression: Respiratory failure, COPD exacerbation, Dyspnea, Pneumothorax, left Disposition: ADMITTED IP TO THIS HOSP Condition: Serious Is patient prescribed a controlled substance at d/c from ED?: No
[2018-09-30] MEDS ORDERED: LORazepam 2 MG/ML INJ IV STA (19:14)
[2018-09-30] MEDS ORDERED: MORPHINE SULFATE 2 MG/ML SYRINGE IVP STA (19:14)
[2018-09-30] MEDS: ALBUTEROL NEBULIZED 2.5 MG/3 ML INHALATION SCH (19:28)
[2018-09-30] MEDS: SODIUM CHLORIDE 0.9% 1,000 ML IV SCH (19:49)
--- NOTE | 2018-09-30 20:00 | XR ---
EXAMINATION TYPE: XR chest 1V portable DATE OF EXAM: 09/30/2018 COMPARISON: Chest x-ray 11/15/2017 INDICATION: Pain TECHNIQUE: Single frontal view of the chest is obtained. FINDINGS: The heart size is normal. The pulmonary vasculature is normal. There is some compressive atelectasis within the collapsed left lung. There is a large left pneumothorax. Report was called to the emergency room by Dr. Hunter by teleph one 1956 hours 09/30/2018 IMPRESSION: 1. Large left pneumothorax
[2018-09-30 20:12] LABS: Basophils # (A) 0.1 k/uL (0-0.2); Basophils % (A) 1 %; Eosinophils # (A) 0.1 k/uL (0-0.7); Eosinophils % (A) 1 %; HCT 43.6 % (39.0-53.0); HGB 14.2 gm/dL (13.0-17.5); Lymphocytes # (A) 2.1 k/uL (1.0-4.8); Lymphocytes % (A) 20 %; MCHC 32.6 g/dL (31.0-37.0); MCV 98.3 fL (80.0-100.0); Mean Platelet Volume 7.9; Monocytes # (A) 0.7 k/uL (0-1.0); Monocytes % (A) 6 %; Neutrophils # (A) 7.6 k/uL (1.3-7.7); Neutrophils % (A) 71 %; Platelet Count 191 k/uL (150-450); RBC 4.43 m/uL (4.30-5.90); WBC 10.7 k/uL (3.8-10.6)
[2018-09-30 20:17] LABS: Creatine Kinase 69 U/L (55-170)
[2018-09-30 20:20] LABS: Albumin 4.3 g/dL (3.5-5.0); Calcium 9.4 mg/dL (8.4-10.2); Magnesium 1.2 mg/dL (1.6-2.3); Total Bilirubin 0.9 mg/dL (0.2-1.3); Total Protein 7.4 g/dL (6.3-8.2)
[2018-09-30 20:21] LABS: Potassium 5.2 mmol/L (3.5-5.1)
[2018-09-30 20:30] LABS: Creatine Kinase MB 4.4 ng/mL (0.0-2.4); Troponin I <0.012 ng/mL (0.000-0.034)
[2018-09-30 21:05] LABS: Glucose,Whole Blood 223 mg/dL (75-99)
--- NOTE | 2018-09-30 21:05 | XR ---
EXAMINATION TYPE: XR chest 1V portable DATE OF EXAM: 09/30/2018 COMPARISON: 09/30/2018 earlier exam INDICATION: Pneumothorax TECHNIQUE: Single frontal view of the chest is obtained. FINDINGS: The heart size is normal. The pulmonary vasculature is normal. Some streak atelectasis is likely within the left lung base There is a chest catheter present along the lateral left chest. The pneumothorax is significantly dim inished over the interval. Residual remains at the left apex. Continued follow-up is recommended. IMPRESSION: 1. Diminished size pneumothorax. Apical pneumothorax remains present. This should be continued to be followed to resolution. 2. Probable atelectasis left lung base
[2018-09-30] MEDS: INSULIN ASPART (NovoLOG) 100 UNIT/ML VIAL SQ SCH (21:59)
[2018-09-30] MEDS ORDERED: Magnesium Replacement Protocol 1 EACH MISC MISCELLANE PRN (22:18)
[2018-09-30] MEDS ORDERED: ONDANSETRON 4 MG TAB PO PRN (22:19)
[2018-09-30] MEDS ORDERED: FUROSEMIDE 40 MG TAB PO SCH (22:30)
[2018-09-30] MEDS: HYDROcodone/APAP 5-325MG 1 EACH TAB PO PRN (23:48)
[2018-09-30] MEDS: methylPREDNISolone SOD SUCCI 125 MG/2 ML VIAL IV SCH (23:48)
[2018-10-01] MEDS: CYCLOBENZAPRINE 10 MG TAB PO PRN (01:18)
[2018-10-01 01:56] VITALS: BMI 26.0
[2018-10-01] MEDS: MAGNESIUM SULFATE-D5W PMX 1 GM in DEXTROSE/WATER 1 100ML.BAG IVPB SCH ×3 (04:41→06:59)
[2018-10-01] MEDS: SODIUM CHLORIDE 0.9% 1,000 ML IV SCH ×2 (04:41→16:36)
[2018-10-01 05:51] LABS: Glucose,Whole Blood 307 mg/dL (75-99)
[2018-10-01] MEDS: HYDROcodone/APAP 5-325MG 1 EACH TAB PO PRN ×3 (06:00→18:25)
[2018-10-01] MEDS: methylPREDNISolone SOD SUCCI 125 MG/2 ML VIAL IV SCH (06:01)
[2018-10-01] MEDS: INSULIN ASPART (NovoLOG) 100 UNIT/ML VIAL SQ SCH ×4 (06:02→21:23)
[2018-10-01] MEDS ORDERED: INSULIN ASPART (NovoLOG) 100 UNIT/ML VIAL SQ SCH (07:30)
--- NOTE | 2018-10-01 08:16 | XR ---
EXAMINATION TYPE: XR chest 1V portable DATE OF EXAM: 10/01/2018 COMPARISON: 09/30/2018 INDICATION: Left pneumothorax TECHNIQUE: Single frontal view of the chest is obtained. FINDINGS: The heart size is normal. The pulmonary vasculature is normal. The lungs are clear. Left-sided chest tube remains present. Previous left apical pneumothorax appears resolved. Previous a telectasis at the left base appears resolved. IMPRESSION: 1. Resolution previous left apical pneumothorax. Chest tube remains in position.
[2018-10-01] MEDS: TAMSULOSIN 0.4 MG CAP.ER.24H PO SCH (08:32)
[2018-10-01] MEDS: ALBUTEROL NEBULIZED 2.5 MG/3 ML INHALATION SCH ×4 (08:43→20:12)
[2018-10-01] MEDS ORDERED: METOPROLOL TARTRATE 50 MG TAB PO SCH (09:00)
[2018-10-01] MEDS ORDERED: ENOXAPARIN 40 MG/0.4 ML SYRINGE SQ SCH (09:00)
[2018-10-01] MEDS ORDERED: PANTOPRAZOLE 40 MG TABLET PO SCH (09:00)
[2018-10-01] MEDS ORDERED: amLODIPine 5 MG TAB PO SCH (09:00)
[2018-10-01 11:46] LABS: Glucose,Whole Blood 241 mg/dL (75-99)
--- NOTE | 2018-10-01 12:40 | P.HPIM ---
History of Present Illness 62-year-old a pleasant gentleman with known history of COPD came in with comments of shortness of breath the right-sided sharp and stabbing a pain 8/10 in severity radiating to the left, and neck and back found to have pneumothorax had a chest tube yesterday for breath underwent placement. Patient has significant improvement in pneumothorax and patient is clinically doing well and walking around we'll repeat another chest x-ray tomorrow if that's okay patient probably can be discharged tomorrow patient may have bullae which may have ruptured. Doesn't have any fever minimal cough without any significant sputum production patient currently smokes 10 cigarettes per day. Does use 3 L of oxygen at home Review of Systems REVIEW OF SYSTEMS: CONSTITUTIONAL: No fever, no malaise, no fatigue. HEENT: No recent visual problems or hearing problems. Denied any sore throat. CARDIOVASCULAR: No orthopnea, PND, no palpitations, no syncope. PULMONARY: no hemoptysis. GASTROINTESTINAL: No diarrhea, no nausea, no vomiting, no abdominal pain. NEUROLOGICAL: No headaches, no weakness, no numbness. HEMATOLOGICAL: Denies any bleeding or petechiae. GENITOURINARY: Denies any burning micturition, frequency, or urgency. MUSCULOSKELETAL/RHEUMATOLOGICAL: Denies any joint pain, swelling, or any muscle pain. ENDOCRINE: Denies any polyuria or polydipsia. The rest of the 14-point review of systems is negative. Past Medical History Past Medical History: Atrial Fibrillation, Heart Failure, COPD, Diabetes Mellitus, Deep Vein Thrombosis (DVT), GERD/Reflux, Hyperlipidemia, Hypertension, Sleep Apnea/CPAP/BIPAP Additional Past Medical History / Comment(s): See Dr Landeros's H&P, Other HX: Chronic hypoxic respiratory failure and the patient OXYGEN dependent between 3 1/2-4 L prn and at night, IDDM type II, paroxysmal AFIB, alcoholism, diverticulosis, obstuctive sleep apnea but no Cpap since wt loss, sinusitis, neuropathy bilateral feet,current tx prednisone History of Any Multi-Drug Resistant Organisms: None Reported Past Surgical History: Appendectomy, Cholecystectomy, Heart Catheterization Additional Past Surgical History / Comment(s): colonoscopy x 3, eyelid surgery bilaterally,partial liver removed,lysis of adhesions Past Anesthesia/Blood Transfusion Reactions: Postoperative Nausea & Vomiting (PONV) Additional Past Anesthesia/Blood Transfusion Reaction / Comment(s): Pt states he has had PONV with gas only. Past Psychological History: Anxiety, Depression, Panic Disorder Additional Psychological History / Comment(s): He uses no assistive device. He drives. Smoking Status: Former smoker Past Alcohol Use History: Occasional Additional Past Alcohol Use History / Comment(s): PT states he currently smokes 10 cigarettes daily. Hx of alcoholism. He has hx of DTs. Past Drug Use History: None Reported Additional Drug Use History / Comment(s): Pt states in the s and he used a variety of drugs (unable to state which ones) but has not used any since. - Past Family History Mother Family Medical History: Thyroid Disorder Additional Family Medical History / Comment(s): Mother is 86 yrs. old. Father Additional Family Medical History / Comment(s): Father of diverticulitis,peritonitis at the age of 35yrs. Medications and Allergies Home Medications Medication Instructions Recorded Confirmed Type Tamsulosin [Flomax] 0.4 mg PO DAILY 06/23/16 09/30/18 History Furosemide [Lasix] 40 mg PO Q48H 04/23/17 09/30/18 History HYDROcodone/APAP 10-325MG [[place] 1 tab PO Q6H PRN 09/06/17 09/30/18 History 10-325] Pantoprazole Sodium [Protonix] 40 mg PO DAILY 10/03/17 09/30/18 History Atorvastatin Calcium [Lipitor] 10 mg PO HS 09/30/18 09/30/18 History Cyclobenzaprine [Flexeril] 10 mg PO TID PRN 09/30/18 09/30/18 History Metoprolol Tartrate [Lopressor] 50 mg PO BID 09/30/18 09/30/18 History Ondansetron HCl [Zofran] 4 mg PO BID PRN 09/30/18 09/30/18 History amLODIPine [Norvasc] 5 mg PO DAILY 09/30/18 09/30/18 History Allergies Allergy/AdvReac Type Severity Reaction Status Date / Time No Known Allergies Allergy Verified 09/30/18 19:43 Physical Exam Vitals: Vital Signs Temp Pulse Pulse Resp BP BP Pulse Ox 10/01/18 12:24 76 10/01/18 08:54 96 10/01/18 08:43 96 10/01/18 08:34 97.8 F 81 18 141/83 100 10/01/18 03:30 98.1 F 86 18 132/86 100 10/01/18 01:15 97.9 F 80 20 126/70 97 09/30/18 21:30 97.9 F 82 20 133/76 100 09/30/18 21:17 99 09/30/18 20:27 81 20 139/89 100 09/30/18 19:43 78 09/30/18 19:28 74 09/30/18 19:27 82 30 H 153/94 93 L 09/30/18 19:08 98.7 F 84 22 175/101 83 L Intake and Output 09/30/18 10/01/18 10/01/18 22:59 06:59 14:59 Intake Total 360 Output Total 125 175 Balance -125 185 Intake: Oral 360 Output: Urine 125 175 Other: Voiding Method Urinal Urinal # Voids 1 1 # Bowel Movements 1 Weight 93.894 kg 92.1 kg PHYSICAL EXAMINATION: GENERAL: The patient is alert and oriented x3, not in any acute distress. Well developed, well nourished. HEENT: Pupils are round and equally reacting to light. EOMI. No scleral icterus. No conjunctival pallor. Normocephalic, atraumatic. No pharyngeal erythema. No thyromegaly. CARDIOVASCULAR: S1 and S2 present. No murmurs, rubs, or gallops. PULMONARY: Chest is clear to auscultation, no wheezing or crackles. Decreased air entry into bilateral lung man ABDOMEN: Soft, nontender, nondistended, normoactive bowel sounds. No palpable organomegaly. MUSCULOSKELETAL: No joint swelling or deformity. EXTREMITIES: No cyanosis, clubbing, or pedal edema. NEUROLOGICAL: Gross neurological examination did not reveal any focal deficits. SKIN: No rashes. Results CBC & Chem 7: 09/30/18 19:12 09/30/18 19:12 Labs: Abnormal Lab Results - Last 24 Hours (Table) 09/30/18 09/30/18 09/30/18 Range/Units 19:12 19:12 19:12 WBC 10.7 H (3.8-10.6) k/uL D-Dimer 0.81 H (<0.60) mg/L FEU Potassium 5.2 H (3.5-5.1) mmol/L BUN 33 H (9-20) mg/dL Creatinine 1.42 H (0.66-1.25) mg/dL Glucose 209 H (74-99) mg/dL POC Glucose (mg/dL) (75-99) mg/dL Magnesium 1.2 L (1.6-2.3) mg/dL AST 86 H (17-59) U/L CK-MB (CK-2) (0.0-2.4) ng/mL 09/30/18 09/30/18 10/01/18 Range/Units 19:12 21:02 05:49 WBC (3.8-10.6) k/uL D-Dimer (<0.60) mg/L FEU Potassium (3.5-5.1) mmol/L BUN (9-20) mg/dL Creatinine (0.66-1.25) mg/dL Glucose (74-99) mg/dL POC Glucose (mg/dL) 223 H 307 H (75-99) mg/dL Magnesium (1.6-2.3) mg/dL AST (17-59) U/L CK-MB (CK-2) 4.4 H (0.0-2.4) ng/mL 10/01/18 Range/Units 11:33 WBC (3.8-10.6) k/uL D-Dimer (<0.60) mg/L FEU Potassium (3.5-5.1) mmol/L BUN (9-20) mg/dL Creatinine (0.66-1.25) mg/dL Glucose (74-99) mg/dL POC Glucose (mg/dL) 241 H (75-99) mg/dL Magnesium (1.6-2.3) mg/dL AST (17-59) U/L CK-MB (CK-2) (0.0-2.4) ng/mL Thrombosis Risk Factor Assmnt - Choose All That Apply Each Factor Represents 1 point: Abnormal pulmonary function (COPD), Obesity (BMI >25) Each Risk Factor Represents 2 Points: Age 61-74 years Each Risk Factor Represents 3 Points: History of DVT/PE Thrombosis Risk Factor Assessment Total Risk Factor Score: 7 Thrombosis Risk Factor Assessment Level: High Risk Assessment and Plan Plan: -Shortness of breath the and chest pain: Secondary to pneumothorax patient has a prominent patient is clinically doing well repeat chest x-ray tomorrow if charlee t's okay patient will be discharged tomorrow. Counseling was provided regarding nicotine cessation. -COPD with acute hypercapnic respiratory failure does not appear to be in COPD exacerbation at this time patient will be resumed and continued on his home regimen of inhaled steroids and breathing treatments. -Type 2 diabetes mellitus -Gastroesophageal reflux disease -Hypertension -Sleep apnea on CPAP history of DVT not in any anticoagulation patient apparently had history of A. fib as well probably proximal A. fib not on any anticoagulation at this time -DVT prophylaxis early ambulation
--- NOTE | 2018-10-01 13:50 | P.CNPUL ---
History of Present Illness Consult date: 10/01/18 Reason for consult: pneumothorax History of present illness: 60-year-old male patient, a chronic smoker, chronic alcohol drinker with known history of COPD with a previous hospitalization back in 2016 for a acute COPD exacerbation, pneumococcal pneumonia with sepsis, and acute hypoxic and hypercapnic respiratory failure requiring intubation, mechanical ventilation and life support. During his hospital stay, the patient also had paroxysmal atrial fibrillation and currently is back to sinus. He has hypertension, hyperlipidemia, difficulty with mobility and gait. In terms of his COPD, the patient is on Symbicort 160/4.52 puffs twice a day. He has Combivent rescue inhaler at home. He also has albuterol nebulizer at home. He transiently had quit smoking. He came into the hospital because of acute shortness of breath. He also felt pain that was sharp and stabbing on the left side a total 10 in severity and he was found to have a large left-sided pneumothorax. A fluoroscopy vent was inserted and the MRSA problem with good results. I saw her follow-up chest x-ray today and there is good expansion of the left lung without evidence of any air leak. Based on that, I discontinued the Pleur-evac. He states that he is still smoking around 10 cigarettes a day. He is using oxygen 3 L per minute at home. No previous history of pneu mothoraces. He is hemodynamically stable. Review of Systems Constitutional: Reports lethargy, Reports weakness Eyes: denies blurred vision, denies bulging eye, denies decreased vision Ears: deny: decreased hearing, ear discharge, earache, tinnitus Ears, nose, mouth and throat: Denies headache, Denies sore throat Cardiovascular: Reports chest pain, Reports decreased exercise tolerance, Reports dyspnea on exertion, Reports shortness of breath Respiratory: Reports cough, Reports dyspnea, Reports wheezing Gastrointestinal: Reports as per HPI Genitourinary: Reports as per HPI Musculoskeletal: Reports as per HPI Musculoskeletal: absent: ankle pain, ankle stiffness, ankle swelling Integumentary: Reports as per HPI Neurological: Reports as per HPI Psychiatric: Reports as per HPI Endocrine: Reports as per HPI Hematologic/Lymphatic: Reports as per HPI Allergic/Immunologic: Reports as per HPI Past Medical History Past Medical History: Atrial Fibrillation, Heart Failure, COPD, Diabetes Mellitus, Deep Vein Thrombosis (DVT), GERD/Reflux, Hyperlipidemia, Hypertension, Sleep Apnea/CPAP/BIPAP Additional Past Medical History / Comment(s): COPD, Chronic hypoxic respiratory failure and the patient OXYGEN dependent between 3 1/2-4 L prn and at night, IDDM type II, paroxysmal AFIB, alcoholism, diverticulosis, obstuctive sleep apnea but no Cpap since wt loss, neuropathy bilateral feet, History of Any Multi-Drug Resistant Organisms: None Reported Past Surgical History: Appendectomy, Cholecystectomy, Heart Catheterization Additional Past Surgical History / Comment(s): colonoscopy x 3, eyelid surgery bilaterally,partial liver removed,lysis of adhesions Past Anesthesia/Blood Transfusion Reactions: Postoperative Nausea & Vomiting (PONV) Additional Past Anesthesia/Blood Transfusion Reaction / Comment(s): Pt states he has had PONV with gas only. Past Psychological History: Anxiety, Depression, Panic Disorder Additional Psychological History / Comment(s): He uses no assistive device. He drives. Smoking Status: Former smoker Past Alcohol Use History: Occasional Additional Past Alcohol Use History / Comment(s): PT states he currently smokes 10 cigarettes daily. Hx of alcoholism. He has hx of DTs. Past Drug Use History: None Reported Additional Drug Use History / Comment(s): Pt states in the 1970s and s he used a variety of drugs (unable to state which ones) but has not used any since. - Past Family History Mother Family Medical History: Thyroid Disorder Additional Family Medical History / Comment(s): Mother is 86 yrs. old. Father Additional Family Medical History / Comment(s): Father of diverticulitis,peritonitis at the age of 35yrs. Medications and Allergies Home Medications Medication Instructions Recorded Confirmed Type Tamsulosin [Flomax] 0.4 mg PO DAILY 06/23/16 09/30/18 History Furosemide [Lasix] 40 mg PO Q48H 04/23/17 09/30/18 History HYDROcodone/APAP 10-325MG [[place] 1 tab PO Q6H PRN 09/06/17 09/30/18 History 10-325] Pantoprazole Sodium [Protonix] 40 mg PO DAILY 10/03/17 09/30/18 History Atorvastatin Calcium [Lipitor] 10 mg PO HS 09/30/18 09/30/18 History Cyclobenzaprine [Flexeril] 10 mg PO TID PRN 09/30/18 09/30/18 History Metoprolol Tartrate [Lopressor] 50 mg PO BID 09/30/18 09/30/18 History Ondansetron HCl [Zofran] 4 mg PO BID PRN 09/30/18 09/30/18 History amLODIPine [Norvasc] 5 mg PO DAILY 09/30/18 09/30/18 History Allergies Allergy/AdvReac Type Severity Reaction Status Date / Time No Known Allergies Allergy Verified 09/30/18 19:43 Physical Exam Vitals: Vital Signs Temp Pulse Pulse Resp BP BP Pulse Ox 10/01/18 08:34 97.8 F 81 18 141/83 100 10/01/18 03:30 98.1 F 86 18 132/86 100 10/01/18 01:15 97.9 F 80 20 126/70 97 09/30/18 21:30 97.9 F 82 20 133/76 100 09/30/18 21:17 99 09/30/18 20:27 81 20 139/89 100 09/30/18 19:43 78 09/30/18 19:28 74 09/30/18 19:27 82 30 H 153/94 93 L 09/30/18 19:08 98.7 F 84 22 175/101 83 L Intake and Output 09/30/18 10/01/18 10/01/18 22:59 06:59 14:59 Intake Total 360 Output Total 125 175 Balance -125 185 Intake: Oral 360 Output: Urine 125 175 Other: Voiding Method Urinal Urinal # Voids 1 1 # Bowel Movements 1 Weight 93.894 kg 92.1 kg Gen. appearance, comfortable no respiratory distress Head exam was generally normal. There was no scleral icterus or corneal arcus. Mucous membranes were moist. Neck was supple and without jugular venous distension, thyromegaly, or carotid bruits. Carotids were easily palpable bilaterally. There was no adenopathy. Lungs sounds are diminished bilaterally with few scattered expiratory wheezes throughout the lung man. There is adequate and symmetrical air entry bilaterally. Cardiac exam revealed the PMI to be normally situated and sized. The rhythm was regular and no extrasystoles were noted during several minutes of auscultation. The first and second heart sounds were normal and physiologic splitting of the second heart sound was noted. There were no murmurs, rubs, clicks, or gallops. Abdominal exam revealed normal bowel sounds. The abdomen was soft, non-tender, and without masses, organomegaly, or appreciable enlargement of the abdominal aorta. Examination of the extremities revealed easily palpable radial, femoral and pedal pulses. There was no cyanosis, clubbing or edema. Examination of the skin revealed no evidence of significant rashes, suspicious appearing nevi or other concerning lesions. Neurologically is awake and alert and there is no focal neurological deficit. Results - Laboratory Findings CBC and BMP: 09/30/18 19:12 09/30/18 19:12 PT/INR, D-dimer D-Dimer 0.81 mg/L FEU (<0.60) H 09/30/18 19:12 Abnormal lab findings: Abnormal Labs 09/30/18 09/30/18 09/30/18 19:12 19:12 19:12 WBC 10.7 H D-Dimer 0.81 H Potassium 5.2 H BUN 33 H Creatinine 1.42 H Glucose 209 H POC Glucose (mg/dL) Magnesium 1.2 L AST 86 H CK-MB (CK-2) 09/30/18 09/30/18 10/01/18 19:12 21:02 05:49 WBC D-Dimer Potassium BUN Creatinine Glucose POC Glucose (mg/dL) 223 H 307 H Magnesium AST CK-MB (CK-2) 4.4 H - Diagnostic Findings Chest x-ray: image reviewed Assessment and Plan Plan: 1 Secondary pneumothorax, status post completed expansion post Thoravent insertion. Discontinue the pleural VAC for now and the patient is hemodynamically stable. 2 Severe chronic obstructive pulmonary disease - patient has severe COPD and his palmar function test today shows a FEV1 of 22% of predicted, diffusion capacity of 33% of predicted and he has also evidence of hyperinflation and air trapping . This is consistent with COPD. 3. Smoker 4. Alcoholism 5. Insulin treated type 2 diabetes mellitus 6. Congestive heart failure - CHF with and EF of 30% 7. Hyperlipidemia 8 Essential hypertension 9 ALMA Plan The Thoravent is discontinued from the Pleur-evac. We'll Or tomorrow. We'll obtain a follow-up chest x-ray. IV fluids to KVO. Continue bronchi dilators. Discontinue IV Solu-Medrol. Smoking cessation counseling was done. We'll continue to follow. Provide the patient incentive spirometer.
[2018-10-01] MEDS: CARVEDILOL 6.25 MG TAB PO SCH (16:41)
[2018-10-01 17:17] LABS: Glucose,Whole Blood 337 mg/dL (75-99)
[2018-10-01 20:54] LABS: Glucose,Whole Blood 207 mg/dL (75-99)
[2018-10-01] MEDS ORDERED: ATORVASTATIN 20 MG TAB PO SCH (21:00)
[2018-10-02] MEDS: HYDROcodone/APAP 5-325MG 1 EACH TAB PO PRN ×3 (00:04→12:02)
[2018-10-02] MEDS: CYCLOBENZAPRINE 10 MG TAB PO PRN (01:04)
[2018-10-02 04:09] VITALS: RESP 16
[2018-10-02 06:07] LABS: Glucose,Whole Blood 244 mg/dL (75-99)
[2018-10-02] MEDS: INSULIN ASPART (NovoLOG) 100 UNIT/ML VIAL SQ SCH ×2 (06:26→12:02)
[2018-10-02] MEDS: CARVEDILOL 6.25 MG TAB PO SCH (06:26)
[2018-10-02 07:13] LABS: HCT 37.7 % (39.0-53.0); HGB 11.7 gm/dL (13.0-17.5); MCH 31.2 pg (25.0-35.0); MCV 100.6 fL (80.0-100.0); Macrocytosis Slight; Mean Platelet Volume 7.6; Platelet Count 120 k/uL (150-450); RBC 3.74 m/uL (4.30-5.90); RDW 14.6 % (11.5-15.5); WBC 6.5 k/uL (3.8-10.6)
[2018-10-02 07:45] LABS: Calcium 8.4 mg/dL (8.4-10.2); Magnesium 1.8 mg/dL (1.6-2.3); Potassium 4.5 mmol/L (3.5-5.1)
[2018-10-02] MEDS: TAMSULOSIN 0.4 MG CAP.ER.24H PO SCH (08:03)
[2018-10-02 08:08] VITALS: TEMP 97.8
[2018-10-02] MEDS: ALBUTEROL NEBULIZED 2.5 MG/3 ML INHALATION SCH ×2 (08:21→11:55)
--- NOTE | 2018-10-02 08:23 | XR ---
EXAMINATION TYPE: XR chest 2V DATE OF EXAM: 10/02/2018 COMPARISON: Prior chest x-ray 10/01/2018 HISTORY: Pneumothorax TECHNIQUE: Frontal and lateral views of the chest are obtained. FINDINGS: Thoracic vent is in place on the left. Pacemaker is stable. Only minimal apical left pneum othorax is evident. No pleural effusion. Cardiac mediastinal silhouette, pulmonary vascularity and hi la are stable. IMPRESSION: Stable chest tube. Minimal apical pneumothorax.
[2018-10-02 11:43] LABS: Glucose,Whole Blood 208 mg/dL (75-99)
[2018-10-02 11:51] VITALS: BP 140/86
--- NOTE | 2018-10-02 12:18 | P.PN ---
Subjective Progress Note Date: 10/02/18 Principal diagnosis: Left-sided pneumothorax, status post 4 events insertion with subsequent reexpansion of the left lung 60-year-old male patient, a chronic smoker, chronic alcohol drinker with known history of COPD with a previous hospitalization back in 2016 for a acute COPD exacerbation, pneumococcal pneumonia with sepsis, and acute hypoxic and hypercapnic respiratory failure requiring intubation, mechanical ventilation and life support. During his hospital stay, the patient also had paroxysmal atrial fibrillation and currently is back to sinus. He has hypertension, h yperlipidemia, difficulty with mobility and gait. In terms of his COPD, the patient is on Symbicort 160/4.52 puffs twice a day. He has Combivent rescue inhaler at home. He also has albuterol nebulizer at home. He transiently had quit smoking. He came into the hospital because of acute shortness of breath. He also felt pain that was sharp and stabbing on the left side a total 10 in severity and he was found to have a large left-sided pneumothorax. A fluoroscopy vent was inserted and the MRSA problem with good results. I saw her follow-up chest x-ray today and there is good expansion of the left lung without evidence of any air leak. Based on that, I discontinued the Pleur-evac. He states that he is still smoking around 10 cigarettes a day. He is using oxygen 3 L per minute at home. No previous history of pneumothoraces. He is hemodynamically stable. On 09/24/2018 patient seen in follow-up on selective care unit, he is sitting up in bed, in no acute distress, left upper chest or event is in place, yesterday the Pleur-evac was disconnected, and he was With a one-way valve. Today's chest x-ray shows tiny left apical pneumothorax, and the patient is stable, he is working on his incentive spirometer. Lung sounds reveal diminished breath sounds on the left side. Mild discomfort at the Pleur-evac insertion site, no acute distress. He remains on 3 L of oxygen with a pulse ox of 100%, he is afebrile, hemodynamically stable. Objective - Vital Signs Vital signs: Vital Signs Temp 97.8 F 10/02/18 11:47 Pulse 82 10/02/18 11:55 Resp 16 10/02/18 11:55 BP 140/86 10/02/18 11:47 Pulse Ox 100 10/02/18 11:47 Intake & Output 10/01/18 10/02/18 10/02/18 18:59 06:59 18:59 Intake Total 1320 600 240 Output Total 175 300 Balance 1145 600 -60 Weight 94.2 kg Intake: Oral 1320 600 240 Output: Urine 175 300 Other: Voiding Method Urinal Toilet Toilet # Voids 3 1 - Exam GENERAL EXAM: Alert, pleasant, 62-year-old white male comfortable in no apparent distress. HEAD: Normocephalic/atraumatic. EYES: Normal reaction of pupils, equal size. Conjunctiva pink, sclera white. NOSE: Clear with pink turbinates. THROAT: No erythema or exudates. NECK: No masses, no JVD, no thyroid enlargement, no adenopathy. CHEST: No chest wall deformity. Symmetrical expansion. left upper anterior chest thora-vent with a one way cap, the diaphragm still indicates a small leak LUNGS: Equal air entry with no crackles, wheeze, rhonchi or dullness. CVS: Regular rate and rhythm, normal S1 and S2, no gallops, no murmurs, no rubs ABDOMEN: Soft, nontender. No hepatosplenomegaly, normal bowel sounds, no guarding or rigidity. EXTREMITIES: No clubbing, no edema, no cyanosis, 2+ pulses and upper and lower extremities. MUSCULOSKELETAL: Muscle strength and tone normal. SPINE: No scoliosis or deformity SKIN: No rashes CENTRAL NERVOUS SYSTEM: Alert and oriented -3. No focal deficits, tone is normal in all 4 extremities. PSYCHIATRIC: Alert and oriented -3. Appropriate affect. Intact judgment and insight. - Labs CBC & Chem 7: 10/02/18 06:05 10/02/18 06:05 Labs: Abnormal Lab Results - Last 24 Hours (Table) 10/01/18 10/01/18 10/02/18 Range/Units 17:06 20:53 06:05 RBC (4.30-5.90) m/uL Hgb (13.0-17.5) gm/dL Hct (39.0-53.0) % MCV (80.0-100.0) fL Plt Count (150-450) k/uL BUN 33 H (9-20) mg/dL Creatinine 1.67 H (0.66-1.25) mg/dL Glucose 238 H (74-99) mg/dL POC Glucose (mg/dL) 337 H 207 H (75-99) mg/dL 10/02/18 10/02/18 10/02/18 Range/Units 06:05 06:05 11:31 RBC 3.74 L (4.30-5.90) m/uL Hgb 11.7 L (13.0-17.5) gm/dL Hct 37.7 L (39.0-53.0) % MCV 100.6 H (80.0-100.0) fL Plt Count 120 L (150-450) k/uL BUN (9-20) mg/dL Creatinine (0.66-1.25) mg/dL Glucose (74-99) mg/dL POC Glucose (mg/dL) 244 H 208 H (75-99) mg/dL Assessment and Plan Plan: 1 Secondary pneumothorax, status post completed expansion post Thoravent insertion. Discontinue the pleural VAC for now and the patient is hemodynamically stable. 2 Severe chronic obstructive pulmonary disease - patient has severe COPD and his palmar function test today shows a FEV1 of 22% of predicted, diffusion capacity of 33% of predicted and he has also evidence of hyperinflation and air trapping. This is consistent with COPD. 3. Smoker 4. Alcoholism 5. Insulin treated type 2 diabetes mellitus 6. Congestive heart failure - CHF with and EF of 30% 7. Hyperlipidemia 8 Essential hypertension 9 ALMA Plan: Chest x-ray has been reviewed with Dr. Perry, patient was seen and evaluated by Dr. Perry. Clinically stable, chest x-ray showed minimal apical pneumothorax on the left, patient is stable for discharge home today with Dr. parker in place. Surgery has been consulted in regards to follow-up and education for the left- sided Thoravent. Patient is to see Dr. Reyes in the office in 3 days I performed a history & physical examination of the patient and discussed their management with my nurse practitioner, Richelle Connors. I reviewed the nurse practitioner's note and agree with the documented findings and plan of care. Lung sounds are positive for diminished breath sounds on the left. The findings and the impression was discussed with the patient. I attest to the documentation by the nurse practitioner. Time with Patient: Less than 30
--- NOTE | 2018-10-02 13:00 | P.PN ---
Progress Note - Text Progress Note Date: 10/02/18 This 62 year old gentleman who follows at the [facility] for primary care, and who has a previous medical history of recent cessation of smoking and COPD presented to [facility] emergency room on 09/30/2018 with complaints of shortness of breath and right-sided sharp stabbing chest pain. On chest x-ray he was found to have spontaneous pneumothorax, which was his first episode, and a thoravent was placed in the emergency room by the ER physicians. Follow-up chest x-ray the next morning demonstrated no pneumothorax and there was no air leak present in the thoravent. Active suction was removed from the thoravent. This morning patient does appear to have an air leak as the red diaphragm in the thoravent is fluctuating with coughing. Chest x-ray demonstrates minimal apical pneumothorax. The decision was made by primary care to discharge patient to home with the thoravent in place, which is appropriate. Pulmonology consulted cardiothoracic surgery for management of the thoravent, an appointment had been made already for Dr. Reyes for this Monday to remove the thoravent. The patient is currently stable, ambulating around the room in no distress, denies pain and shortness of breath. Thoravent remains in place with air leak present. The patient was taught how to examine the thoravent for resolution of air leak. The patient is to follow-up with Dr. Reyes this Monday and if there is no air leak the thoravent will be removed in the pulmonology office. Should the patient still have an air leak, the patient was instructed to contact cardiothoracic surgery once the air leak resolved, our contact information was given to the patient, he should receive an x-ray prior to being seen by CV surgery to determine appropriateness for removal of the thoravent. This was all explained in great detail to the patient and he is in full understanding.
--- NOTE | 2018-10-02 14:56 | P.DS ---
Providers Date of admission: 09/30/18 19:11 Attending physician: Vel Wilburn Consults: 09/30/18 19:10 Consult Physician Routine Consulting Provider: Tracey Reyes Consult Reason/Comments: copd Do you want consulting provider notified?: Yes 10/02/18 11:00 Consult Physician Routine Consulting Provider: Kizzy Radford Consult Reason/Comments: left pneumothorax Do you want consulting provider notified?: Yes Primary care physician: [facility] Hospital Course: 62-year-old a pleasant gentleman with known history of COPD came in with comments of shortness of breath the right-sided sharp and stabbing a pain 8/10 in severity radiating to the left, and neck and back found to have pneumothorax had a chest tube yesterday for breath underwent placement. Patient has significant improvement in pneumothorax and patient is clinically doing well and walking around we'll repeat another chest x-ray tomorrow if that's okay patient probably can be discharged tomorrow patient may have bullae which may have ruptured. Doesn't have any fever minimal cough without any significant sputum production patient currently smokes 10 cigarettes per day. Does use 3 L of oxygen at home. 10/02/2018 Patient is clinically stable has a mild apical pneumothorax patient's apparent will remain in place until Monday patient will follow up with the cardiac thoracic surgery and pulmonary as an outpatient on Monday and the if he is clinically stable at that time thyroid will be removed. PHYSICAL EXAMINATION: GENERAL: The patient is alert and oriented x3, not in any acute distress. Well developed, well nourished. HEENT: Pupils are round and equally reacting to light. EOMI. No scleral icterus. No conjunctival pallor. Normocephalic, atraumatic. No pharyngeal erythema. No thyromegaly. CARDIOVASCULAR: S1 and S2 present. No murmurs, rubs, or gallops. PULMONARY: Chest is clear to auscultation, no wheezing or crackles. Decreased air entry into bilateral lung man ABDOMEN: Soft, nontender, nondistended, normoactive bowel sounds. No palpable organomegaly. MUSCULOSKELETAL: No joint swelling or deformity. EXTREMITIES: No cyanosis, clubbing, or pedal edema. NEUROLOGICAL: Gross neurological examination did not reveal any focal deficits. SKIN: No rashes. Assessment and Plan Plan: - pneumothorax, probably secondary to ruptured bullae -COPD with acute hypercapnic respiratory failure does not appear to be in COPD exacerbation at this time patient will be resumed and continued on his home regimen of inhaled steroids and breathing treatments. -Type 2 diabetes mellitus -Gastroesophageal reflux disease -Hypertension -Sleep apnea on CPAP DVT not on any anticoagulation patient apparently had history of A. fib as well probably proximal A. fib not on any anticoagulation at this time Patient Condition at Discharge: Serious Plan - Discharge Summary Discharge Rx Participant: No New Discharge Prescriptions: New Carvedilol [Coreg] 6.25 mg PO BID-W/MEALS #60 tab Ranitidine HCl [Zantac] 150 mg PO BID #30 tab Continue Tamsulosin [Flomax] 0.4 mg PO DAILY HYDROcodone/APAP 10-325MG [Hemet 10-325] 1 tab PO Q6H PRN PRN Reason: Pain Ondansetron HCl [Zofran] 4 mg PO BID PRN PRN Reason: Nausea Cyclobenzaprine [Flexeril] 10 mg PO TID PRN PRN Reason: Muscle Spasm Atorvastatin Calcium [Lipitor] 10 mg PO HS Discontinued Furosemide [Lasix] 40 mg PO Q48H Pantoprazole Sodium [Protonix] 40 mg PO DAILY amLODIPine [Norvasc] 5 mg PO DAILY Metoprolol Tartrate [Lopressor] 50 mg PO BID Discharge Medication List Tamsulosin [Flomax] 0.4 mg PO DAILY 06/23/16 [History] HYDROcodone/APAP 10-325MG [Hemet 10-325] 1 tab PO Q6H PRN 09/06/17 [History] Atorvastatin Calcium [Lipitor] 10 mg PO HS 09/30/18 [History] Cyclobenzaprine [Flexeril] 10 mg PO TID PRN 09/30/18 [History] Ondansetron HCl [Zofran] 4 mg PO BID PRN 09/30/18 [History] Carvedilol [Coreg] 6.25 mg PO BID-W/MEALS #60 tab 10/02/18 [Rx] Ranitidine HCl [Zantac] 150 mg PO BID #30 tab 10/02/18 [Rx] Follow up Appointment(s)/Referral(s): Tracey Reyes MD [STAFF PHYSICIAN] - 10/05/18 8:45 am [facility] [Primary Care Provider] - 10/12/18 2:00 pm (With Jakob. ) Ambulatory/Diagnostic Orders: Basic Metabolic Panel [LAB.AMB] Time Frame: 3 Days, Location: None Selected Patient Instructions/Handouts: Pneumonia (DC), Chronic Lung Disease and Infection Prevention (DC) Activity/Diet/Wound Care/Special Instructions: Thora-vent: View the red diaphram daily. If Thora-vent not removed Monday in Dr. Reyes's office, please call surgery generator worker (Abbie or Artemio) once red diaphram stops moving. Will need chest xray before removal. Discharge Disposition: HOME SELF-CARE
[2018-10-02 15:54] VITALS: PULSE 84
== END 2018-10-02 14:50 | disposition home or self-care (01) | DRG 199 ==
LOC: EC 19:04 → 3SCARD 19:11
PROVIDERS: ADMIT Hospitalist; ATTEND Hospitalist
PROC: 0W9B30Z Drainage of Left Pleural Cavity with Drainage Device, Percutaneous Approach (ICD-10-PCS; principal; 2018-09-30)
DX: J93.9 Pneumothorax, unspecified (principal); J96.22 Acute and chronic respiratory failure with hypercapnia; E78.5 Hyperlipidemia, unspecified; F17.210 Nicotine dependence, cigarettes, uncomplicated; Z71.6 Tobacco abuse counseling; J43.9 Emphysema, unspecified; F32.9 Major depressive disorder, single episode, unspecified; E11.40 Type 2 diabetes mellitus with diabetic neuropathy, unspecified; F41.0 Panic disorder [episodic paroxysmal anxiety]; G47.30 Sleep apnea, unspecified; I11.0 Hypertensive heart disease with heart failure; I48.0 Paroxysmal atrial fibrillation; I50.9 Heart failure, unspecified; F10.20 Alcohol dependence, uncomplicated; G47.33 Obstructive sleep apnea (adult) (pediatric); J93.82 Other air leak; K21.9 Gastro-esophageal reflux disease without esophagitis; Z79.4 Long term (current) use of insulin; Z79.899 Other long term (current) drug therapy; Z86.718 Personal history of other venous thrombosis and embolism; Z99.81 Dependence on supplemental oxygen; Z90.49 Acquired absence of other specified parts of digestive tract; Z79.891 Long term (current) use of opiate analgesic
CPT/HCPCS: 32551; 36415; 71045; 71046; 80048; 80053; 80320; 82550; 82553; 83735; 84484; 85025; 85027; 85379; 93005; 94640; 94660; 94760; 96374; 96375; 99291

== ENCOUNTER 2019-01-11 13:35 | Inpatient (IN) | payer OTHER, MEDICARE ==
[2019-01-11] MEDS ORDERED: IPRATROPIUM-ALBUTEROL 3 ML NEB INHALATION STA (14:08)
[2019-01-11] MEDS ORDERED: methylPREDNISolone SOD SUCCI 125 MG/2 ML VIAL IV STA (14:08)
--- NOTE | 2019-01-11 14:14 | ED ---
SOB HPI - General Chief Complaint: Shortness of Breath Stated Complaint: JANEY, Abnormal labs Time Seen by Provider: 01/11/19 14:02 Source: patient, RN notes reviewed Mode of arrival: wheelchair Limitations: no limitations - History of Present Illness Initial Comments: Is a 63-year-old male history of COPD who states he had for long time who states having shortness of breath or past 2 days who seem to be a clinic today he may have easy him and calcium levels are off. He has exertional dyspnea some orthopnea no fevers chills nausea vomiting sweats chest pain or other symptoms. He states she's had this before 3 somewhat previous presentations. MD Complaint: shortness of breath - Related Data Home Medications Medication Instructions Recorded Confirmed Tamsulosin [Flomax] 0.4 mg PO DAILY 06/23/16 01/11/19 HYDROcodone/APAP 10-325MG [Leeds 1 tab PO Q6H PRN 09/06/17 01/11/19 10-325] Atorvastatin Calcium [Lipitor] 10 mg PO HS 09/30/18 01/11/19 Cyclobenzaprine [Flexeril] 10 mg PO TID PRN 09/30/18 01/11/19 Ondansetron HCl [Zofran] 4 mg PO BID PRN 09/30/18 01/11/19 Albuterol Inhaler [Ventolin Hfa 1 puff INHALATION RT-Q6H PRN 01/11/19 01/11/19 Inhaler] Allopurinol [Zyloprim] 200 mg PO DAILY 01/11/19 01/11/19 Apixaban [Eliquis] 2.5 mg PO BID 01/11/19 01/11/19 Budesonide-Formot 160-4.5 Mcg 2 puff INHALATION RT-BID 01/11/19 01/11/19 [Symbicort 160-4.5 Mcg Inhaler] Carvedilol [Coreg] 3.125 mg PO BID 01/11/19 01/11/19 Colestipol HCl [Colestid] 2 tab PO TID 01/11/19 01/11/19 Furosemide [Lasix] 40 mg PO DAILY 01/11/19 01/11/19 Pantoprazole [Protonix] 40 mg PO DAILY 01/11/19 01/11/19 guaiFENesin 400 mg PO BID 01/11/19 01/11/19 Previous Rx's Medication Instructions Recorded Ranitidine HCl [Zantac] 150 mg PO BID #30 tab 10/02/18 Allergies Allergy/AdvReac Type Severity Reaction Status Date / Time No Known Allergies Allergy Verified 01/11/19 14:23 Review of Systems ROS Statement: Those systems with pertinent positive or pertinent negative responses have been documented in the HPI. ROS Other: All systems not noted in ROS Statement are negative. Past Medical History Past Medical History: Atrial Fibrillation, Heart Failure, COPD, Diabetes Mellitus, Deep Vein Thrombosis (DVT), GERD/Reflux, Hyperlipidemia, Hypertension, Sleep Apnea/CPAP/BIPAP Additional Past Medical History / Comment(s): See Dr Landeros's H&P, Other HX: Chronic hypoxic respiratory failure and the patient OXYGEN dependent between 3 1/2-4 L prn and at night, IDDM type II, paroxysmal AFIB, alcoholism, diverticulosis, obstuctive sleep apnea but no Cpap since wt loss, sinusitis, neuropathy bilateral feet,current tx prednisone History of Any Multi-Drug Resistant Organisms: None Reported Past Surgical History: Appendectomy, Cholecystectomy, Heart Catheterization Additional Past Surgical History / Comment(s): colonoscopy x 3, eyelid surgery bilaterally,partial liver removed,lysis of adhesions Past Anesthesia/Blood Transfusion Reactions: Postoperative Nausea & Vomiting (PONV) Additional Past Anesthesia/Blood Transfusion Reaction / Comment(s): Pt states he has had PONV with gas only. Past Psychological History: Anxiety, Depression, Panic Disorder Smoking Status: Current some day smoker Past Alcohol Use History: Occasional Past Drug Use History: None Reported - Past Family History Mother Family Medical History: Thyroid Disorder Additional Family Medical History / Comment(s): Mother is 86 yrs. old. Father Additional Family Medical History / Comment(s): Father of diverticulitis,peritonitis at the age of 35yrs. General Exam - General Exam Comments Initial Comments: This is a well-developed well-nourished awake alert oriented times 3 male Limitations: no limitations General appearance: alert Head exam: Present: atraumatic, normocephalic, normal inspection Eye exam: Present: normal appearance, PERRL, EOMI. Absent: scleral icterus, conjunctival injection, periorbital swelling ENT exam: Present: normal exam, mucous membranes moist Neck exam: Present: normal inspection, full ROM, other (No stridor JVD or bruits). Absent: tenderness, meningismus, lymphadenopathy Respiratory exam: Present: wheezes, accessory muscle use, decreased breath sounds. Absent: respiratory distress, rales, rhonchi, stridor Cardiovascular Exam: Present: normal rhythm, tachycardia, normal heart sounds. Absent: systolic murmur, diastolic murmur, rubs, gallop, clicks GI/Abdominal exam: Present: soft, normal bowel sounds. Absent: distended, tenderness, guarding, rebound, rigid Extremities exam: Present: normal inspection, full ROM, normal capillary refill. Absent: tenderness, pedal edema, joint swelling, calf tenderness Back exam: Present: normal inspection Neurological exam: Present: alert, oriented X3, CN II-XII intact Psychiatric exam: Present: normal affect, normal mood Skin exam: Present: warm, dry, intact, normal color. Absent: rash Course Vital Signs 01/11/19 01/11/19 01/11/19 13:38 14:02 14:15 Temperature 97.6 F Pulse Rate 104 H 103 H Respiratory 28 H 26 H 24 Rate Blood Pressure 148/95 O2 Sat by Pulse 97 90 L Oximetry 01/11/19 01/11/19 01/11/19 14:32 14:41 15:00 Temperature Pulse Rate 84 80 79 Respiratory 16 16 15 Rate Blood Pressure 133/98 O2 Sat by Pulse 99 Oximetry 01/11/19 01/11/19 01/11/19 15:27 16:00 17:00 Temperature 98.6 F Pulse Rate 79 86 82 Respiratory 18 16 18 Rate Blood Pressure 124/86 110/81 134/78 O2 Sat by Pulse 100 99 98 Oximetry Medical Decision Making - Medical Decision Making Case was discussed with the patient as well as with Dr. Wilburn who did come to see the patient patient be admitted or inpatient treatment of COPD also hypo- magnesium any hypocalcemia. - Lab Data Result diagrams: 01/11/19 13:52 01/11/19 13:52 Lab Results 01/11/19 01/11/19 01/11/19 Range/Units 13:52 13:52 13:52 WBC 3.7 L (3.8-10.6) k/uL RBC 3.44 L (4.30-5.90) m/uL Hgb 11.2 L (13.0-17.5) gm/dL Hct 34.6 L (39.0-53.0) % MCV 100.5 H (80.0-100.0) fL MCH 32.6 (25.0-35.0) pg MCHC 32.4 (31.0-37.0) g/dL RDW 16.0 H (11.5-15.5) % Plt Count 123 L (150-450) k/uL Neutrophils % (Manual) 43 % Lymphocytes % (Manual) 50 % Monocytes % (Manual) 5 % Eosinophils % (Manual) 2 % Myelocytes % 1 % Neutrophils # (Manual) 1.59 (1.3-7.7) k/uL Lymphocytes # (Manual) 1.85 (1.0-4.8) k/uL Monocytes # (Manual) 0.19 (0-1.0) k/uL Eosinophils # (Manual) 0.07 (0-0.7) k/uL Myelocytes # (Manual) 0.04 H (0) k/uL Nucleated RBCs 0 (0-0) /100 WBC Manual Slide Review Performed Polychromasia Present Anisocytosis (manual) Present Macrocytosis Slight PT (9.0-12.0) sec INR (<1.2) APTT (22.0-30.0) sec Sodium 141 (137-145) mmol/L Potassium 3.8 (3.5-5.1) mmol/L Chloride 107 (98-107) mmol/L Carbon Dioxide 21 L (22-30) mmol/L Anion Gap 13 mmol/L BUN 13 (9-20) mg/dL Creatinine 1.23 (0.66-1.25) mg/dL Est GFR (CKD-EPI)AfAm 73 (>60 ml/min/1.73 sqM) Est GFR (CKD-EPI)NonAf 63 (>60 ml/min/1.73 sqM) Glucose 160 H (74-99) mg/dL Calcium 7.2 L (8.4-10.2) mg/dL Magnesium 0.6 L* (1.6-2.3) mg/dL Total Bilirubin 0.3 (0.2-1.3) mg/dL AST 43 (17-59) U/L ALT 24 (21-72) U/L Alkaline Phosphatase 72 (38-126) U/L Creatine Kinase 80 (55-170) U/L Troponin I (0.000-0.034) ng/mL NT-Pro-B Natriuret Pep 409 pg/mL Total Protein 6.6 (6.3-8.2) g/dL Albumin 4.0 (3.5-5.0) g/dL 01/11/19 01/11/19 Range/Units 13:52 13:52 WBC (3.8-10.6) k/uL RBC (4.30-5.90) m/uL Hgb (13.0-17.5) gm/dL Hct (39.0-53.0) % MCV (80.0-100.0) fL MCH (25.0-35.0) pg MCHC (31.0-37.0) g/dL RDW (11.5-15.5) % Plt Count (150-450) k/uL Neutrophils % (Manual) % Lymphocytes % (Manual) % Monocytes % (Manual) % Eosinophils % (Manual) % Myelocytes % % Neutrophils # (Manual) (1.3-7.7) k/uL Lymphocytes # (Manual) (1.0-4.8) k/uL Monocytes # (Manual) (0-1.0) k/uL Eosinophils # (Manual) (0-0.7) k/uL Myelocytes # (Manual) (0) k/uL Nucleated RBCs (0-0) /100 WBC Manual Slide Review Polychromasia Anisocytosis (manual) Macrocytosis PT 11.0 (9.0-12.0) sec INR 1.0 (<1.2) APTT 25.5 (22.0-30.0) sec Sodium (137-145) mmol/L Potassium (3.5-5.1) mmol/L Chloride (98-107) mmol/L Carbon Dioxide (22-30) mmol/L Anion Gap mmol/L BUN (9-20) mg/dL Creatinine (0.66-1.25) mg/dL Est GFR (CKD-EPI)AfAm (>60 ml/min/1.73 sqM) Est GFR (CKD-EPI)NonAf (>60 ml/min/1.73 sqM) Glucose (74-99) mg/dL Calcium (8.4-10.2) mg/dL Magnesium (1.6-2.3) mg/dL Total Bilirubin (0.2-1.3) mg/dL AST (17-59) U/L ALT (21-72) U/L Alkaline Phosphatase (38-126) U/L Creatine Kinase (55-170) U/L Troponin I <0.012 (0.000-0.034) ng/mL NT-Pro-B Natriuret Pep pg/mL Total Protein (6.3-8.2) g/dL Albumin (3.5-5.0) g/dL - EKG Data -: EKG Interpreted by Me (Sinus rhythm first-degree AV block ventricular rate 99. ) EKG Comments: Ventricular rate 99 KS interval 210 QRS 136 QT/QTC 384/492 left exodeviation right bundle-branch block nonspecific inferior configuration - Radiology Data Radiology results: report reviewed, image reviewed Critical Care Time Critical Care Time: Yes Critical Care Time: 31 minutes of critical care time which was initial presentation with history physical labs x-rays reevaluation the patient response to therapy discussed with the beta physician review of old charting admission orders documentation of the above Disposition Clinical Impression: Acute exacerbation of chronic obstructive airways disease, Hypomagnesemia syndrome, Hypocalcemia Disposition: ADMITTED IP TO THIS HOSP Referrals: [facility] [Primary Care Provider] - 1-2 days
[2019-01-11 14:47] LABS: Partial Thromboplastin Time 25.5 sec (22.0-30.0)
[2019-01-11 14:48] LABS: Calcium 7.2 mg/dL (8.4-10.2); Potassium 3.8 mmol/L (3.5-5.1); Total Bilirubin 0.3 mg/dL (0.2-1.3); Total Protein 6.6 g/dL (6.3-8.2)
[2019-01-11 14:52] LABS: Magnesium 0.6 mg/dL (1.6-2.3)
[2019-01-11 15:00] LABS: HCT 34.6 % (39.0-53.0); HGB 11.2 gm/dL (13.0-17.5); MCH 32.6 pg (25.0-35.0); MCHC 32.4 g/dL (31.0-37.0); MCV 100.5 fL (80.0-100.0); Macrocytosis Slight; Mean Platelet Volume 7.5; Platelet Count 123 k/uL (150-450); RBC 3.44 m/uL (4.30-5.90); WBC 3.7 k/uL (3.8-10.6)
[2019-01-11] MEDS: MAGNESIUM SULFATE-D5W PMX 1 GM in DEXTROSE/WATER 1 100ML.BAG IVPB SCH ×2 (15:23→17:01)
--- NOTE | 2019-01-11 15:37 | XR ---
EXAMINATION TYPE: XR chest 2V DATE OF EXAM: 01/11/2019 COMPARISON: 10/08/2018 TECHNIQUE: PA and lateral views submitted. HISTORY: Difficulty breathing FINDINGS: The lungs are clear and there is no pneumothorax, pleural effusion, or focal pneumonia. No sizable pneumothorax. Hyperinflation suggests COPD and there is a cardiac device. Hypertrophic and degenerati ve change spine. IMPRESSION: 1. No sizable pneumothorax correlate for COPD..
[2019-01-11] MEDS ORDERED: ACETAMINOPHEN TAB 500 MG TAB PO PRN (16:11)
[2019-01-11] MEDS ORDERED: HYDROcodone/APAP 5-325MG 1 EACH TAB PO PRN (16:11)
[2019-01-11 16:12] LABS: Monocytes # (M) 0.19 k/uL (0-1.0); Myelocytes # (M) 0.04 k/uL (0); Myelocytes % 1 %; Nucleated Red Blood Cells 0 /100 WBC (0-0)
[2019-01-11] MEDS ORDERED: ALBUTEROL NEBULIZED 2.5 MG/3 ML INHALATION PRN (16:12)
[2019-01-11] MEDS ORDERED: CYCLOBENZAPRINE 10 MG TAB PO PRN (16:12)
[2019-01-11] MEDS ORDERED: ONDANSETRON 4 MG TAB PO PRN (16:12)
[2019-01-11 16:15] LABS: Anisocytosis (M) Present; Eosinophils # (M) 0.07 k/uL (0-0.7); Lymphocytes # (M) 1.85 k/uL (1.0-4.8); Neutrophils % (M) 43 %; Polychromasia Present; Total Cells Counted 200
[2019-01-11] MEDS ORDERED: MAGNESIUM SULFATE-D5W PMX 1 GM in DEXTROSE/WATER 1 100ML.BAG IVPB SCH (16:30)
[2019-01-11] MEDS ORDERED: CALCIUM CARBONATE 500 MG CHEWABLE PO STA (16:35)
[2019-01-11] MEDS ORDERED: NALOXONE 0.4 MG/ML 1 ML VIAL IV PRN (17:21)
[2019-01-11] MEDS: INSULIN ASPART (NovoLOG) 100 UNIT/ML VIAL SQ SCH ×2 (18:45→21:16)
--- NOTE | 2019-01-11 19:45 | HP ---
HISTORY AND PHYSICAL DATE OF SERVICE: 01/11/2019 CHIEF COMPLAINT: Shortness of breath. HISTORY OF PRESENT ILLNESS: This 63-year-old gentleman with a past medical history of multiple medical problems, including atrial ablation, CHF, COPD, diabetes mellitus, DVT, GERD, hypertension, hyperlipidemia, sleep apnea, being followed by Dr. Walker in the outpatient setting, recently also had a pneumothorax. The patient apparently had pneumothorax secondary to ruptured bullae, and a Thora Vent was inserted. The patient improved significantly from the pneumothorax point of view, but the patient was having increased shortness of breath and the patient came to [facility]. Chest x-ray showed possible COPD and he was admitted for further evaluation and treatment. There is no history of any fever, rigor or chills. No history of headache, loss of consciousness, seizures at this time. PAST MEDICAL HISTORY: 1. History of COPD. 2. History of atrial fibrillation. 3. CHF. 4. Diabetes mellitus. 5. History of DVT. 6. GERD. 7. Hypertension. 8. Hyperlipidemia. 9. Obstructive sleep apnea. 10.History of appendectomy. 11.Cholecystectomy. 12.History of anxiety, depression, panic disorder. HOME MEDICATIONS: Reviewed. They include: 1. Flomax 0.4 daily. 2. Zantac 150 mg p.o. b.i.d. 3. Protonix 40 mg b.i.d. 4. Guaifenesin 400 mg p.o. t.i.d. 5. Zofran 4 mg b.i.d. p.r.n. 6. Jackson 10 mg q.6 p.r.n. 7. Flexeril 10 mg p.o. t.i.d. p.r.n. 8. Zyloprim 200 mg p.o. daily. 9. Colestid 2 tablets p.o. t.i.d. 10.Symbicort 160/4.5 two puffs b.i.d. 11.Lipitor 10 mg at bedtime. 12.Lasix 40 mg p.o. daily. 13.Eliquis 2.5 mg b.i.d. 14.Ventolin HFA 1 puff q.6 p.r.n. 15.Coreg 3.125 mg p.o. b.i.d. ALLERGIES: NONE. FAMILY HISTORY: History of thyroid disorder in the family. SOCIAL HISTORY: History of continued ongoing smoking. Occasional alcohol intake. REVIEW OF SYSTEMS: ENT: No diminished hearing. No diminished vision. CARDIOVASCULAR SYSTEM: As mentioned earlier. RESPIRATORY SYSTEM: As mentioned earlier. GI: No nausea, vomiting. : No dysuria or retention. NERVOUS SYSTEM: No numbness, weakness. ALLERGY/IMMUNOLOGY: No asthma, hayfever. MUSCULOSKELETAL: As mentioned earlier. HEMATOLOGY/ONCOLOGY: No history of anemia. ENDOCRINE: No history of diabetes, hypothyroidism. CONSTITUTIONAL: As mentioned earlier. DERMATOLOGY: Negative. RHEUMATOLOGY: Negative. PSYCHIATRY: As mentioned earlier. PHYSICAL EXAMINATION: Patient alert and oriented x3. Pulse is 79, blood pressure 125/86, respiration 18, temperature 98.6, pulse ox 100% on room air. HEENT: Conjunctivae normal. NECK: No jugular venous distention. CARDIOVASCULAR SYSTEM: S1, S2 muffled. RESPIRATORY SYSTEM: Breath sounds diminished at the bases. A few scattered rhonchi and crackles. Expiratory wheezing also present. ABDOMEN: Soft. Non-tender. No mass palpable. LEGS: No edema. No swelling. NERVOUS SYSTEM: Higher functions as mentioned earlier. Moves all 4 limbs. No focal motor or sensory deficit. LYMPHATICS: No lymph node palpable in neck, axillae or groin. SKIN: No ulcer, rash, bleeding. JOINTS: No active deforming arthropathy. LABS: WBC 3.7, hemoglobin 11.2. Sodium 141, potassium 3.8. Magnesium is 0.6. ASSESSMENT: 1. Chronic obstructive pulmonary disease, acute exacerbation, with acute purulent tracheobronchitis. 2. Severe hypomagnesemia. 3. Continued ongoing nicotine dependence. 4. History of recent pneumothorax and Thora Vent application. 5. Leukopenia. 6. Mild pancytopenia of undetermined etiology. 7. Anemia. 8. History of atrial fibrillation. 9. History of congestive heart failure. 10.History of chronic obstructive pulmonary disease. 11.Diabetes mellitus, type 2. 12.History of deep vein thrombosis. 13.Gastroesophageal reflux disease. 14.Hyperlipidemia. 15.Hypertension. 16.Obstructive sleep apnea, with CPAP. 17.Chronic hypoxic respiratory failure, 3 L oxygen. 18.History of paroxysmal atrial fibrillation. 19.History of ethanol. 20.History of sleep apnea. 21.History of sinusitis. 22.History of cholecystectomy. 23.History of anxiety, depression panic disorder. 24.Continued ongoing nicotine dependence. RECOMMENDATIONS AND DISCUSSION: In this 63-year-old gentleman who presented with multiple complex medical issues, we will monitor the patient closely, continue the current management, continue with symptomatic treatment. Will initiate broad-spectrum IV antibiotics. I would also recommend bronchodilators, IV steroids. Monitor blood sugars closely. Resume the home medications. Guarded prognosis because of multiple complex medical issues. Further recommendations to follow. Also recommend consultation with Dr. Reyes. A copy of this dictation is being forwarded to [facility]. [id number] / IJN: [id number] /
[2019-01-11] MEDS: SYMBICORT 160-4.5 MCG INHALER INHALATION SCH (19:57)
[2019-01-11] MEDS: COLESTIPOL HCL PO SCH (20:18)
[2019-01-11] MEDS: guaiFENesin 600 MG TABLET.ER PO SCH (20:30)
[2019-01-11] MEDS: methylPREDNISolone SOD SUCCI 125 MG/2 ML VIAL IV SCH ×2 (20:30→23:14)
[2019-01-11] MEDS: FAMOTIDINE 20 MG TAB PO SCH (20:31)
[2019-01-11] MEDS: APIXABAN 2.5 MG TABLET PO SCH (20:31)
[2019-01-11] MEDS: ATORVASTATIN 10 MG TAB PO SCH (20:31)
[2019-01-11] MEDS: CARVEDILOL 3.125 MG TAB PO SCH (20:31)
[2019-01-11 20:38] LABS: Glucose,Whole Blood 325 mg/dL (75-99)
[2019-01-11] MEDS: ALPRAZolam 0.25 MG TAB PO PRN (23:13)
[2019-01-12 06:13] LABS: Glucose,Whole Blood 302 mg/dL (75-99)
[2019-01-12] MEDS: INSULIN ASPART (NovoLOG) 100 UNIT/ML VIAL SQ SCH ×4 (06:35→21:12)
[2019-01-12] MEDS: methylPREDNISolone SOD SUCCI 125 MG/2 ML VIAL IV SCH ×3 (06:35→23:08)
[2019-01-12] MEDS: CARVEDILOL 3.125 MG TAB PO SCH ×2 (06:36→17:17)
[2019-01-12] MEDS: PANTOPRAZOLE 40 MG TABLET PO SCH (06:36)
[2019-01-12 07:01] LABS: Basophils % (A) 0 %; Eosinophils % (A) 0 %; HCT 31.3 % (39.0-53.0); HGB 10.3 gm/dL (13.0-17.5); Lymphocytes # (A) 0.3 k/uL (1.0-4.8); Lymphocytes % (A) 14 %; MCH 33.8 pg (25.0-35.0); MCV 102.6 fL (80.0-100.0); Macrocytosis Moderate; Mean Platelet Volume 7.4; Monocytes % (A) 2 %; Neutrophils # (A) 1.6 k/uL (1.3-7.7); Neutrophils % (A) 82 %; Platelet Count 119 k/uL (150-450); RBC 3.05 m/uL (4.30-5.90); RDW 15.9 % (11.5-15.5); WBC 1.9 k/uL (3.8-10.6)
[2019-01-12 07:05] LABS: Calcium 6.8 mg/dL (8.4-10.2); Magnesium 1.1 mg/dL (1.6-2.3); Potassium 3.8 mmol/L (3.5-5.1)
[2019-01-12] MEDS: SYMBICORT 160-4.5 MCG INHALER INHALATION SCH ×2 (08:39→20:00)
--- NOTE | 2019-01-12 08:44 | P.CNPUL ---
History of Present Illness Consult date: 01/11/19 Reason for consult: dyspnea, COPD History of present illness: 63-year-old male patient, known history of chronic COPD with multiple previous hospitalizations for complications related to COPD and the most hospitalization was in September 2018 when he came in for a pneumothorax.. At that time, the patient was treated with a Thoravent with good results and reexpansion of the left lung without any major issues. He is a chronic smoker and he was smoking up to half pack of cigarettes a day. He is on 3 L of oxygen at home regarding his COPD. He has been Hospital as in the past for pneumococcal pneumonia and sepsis requiring intubation mechanical ventilation. He has also hypertension and hyperlipidemia. He came in today to the [facility] department complaining of worsening shortness of breath and he was Hospital as for an acute COPD exacerbation. His chest x-ray shows hyperinflation without any acute abnormalities. There is a pacemaker on the left. Review of Systems Constitutional: Reports lethargy, Reports weakness Eyes: denies blurred vision, denies bulging eye, denies decreased vision Ears: deny: decreased hearing, ear discharge, earache, tinnitus Ears, nose, mouth and throat: Denies headache, Denies sore throat Cardiovascular: Reports chest pain, Reports decreased exercise tolerance, Reports dyspnea on exertion, Reports shortness of breath Respiratory: Reports cough, Reports dyspnea, Reports wheezing Gastrointestinal: Reports as per HPI Genitourinary: Reports as per HPI Musculoskeletal: Reports as per HPI Musculoskeletal: absent: ankle pain, ankle stiffness, ankle swelling Integumentary: Reports as per HPI Neurological: Reports as per HPI Psychiatric: Reports as per HPI Endocrine: Reports as per HPI Hematologic/Lymphatic: Reports as per HPI Allergic/Immunologic: Reports as per HPI Past Medical History Past Medical History: Atrial Fibrillation, Heart Failure, COPD, Diabetes Mellitus, Deep Vein Thrombosis (DVT), GERD/Reflux, Hyperlipidemia, Hypertension, Sleep Apnea/CPAP/BIPAP Additional Past Medical History / Comment(s): See Dr Landeros's H&P, Other HX: Chronic hypoxic respiratory failure and the patient OXYGEN dependent between 3 1/2-4 L prn and at night, previous history of left-sided pneumothorax requiring a Thoravent insertion, IDDM type II, paroxysmal AFIB, alcoholism, diverticulosis, obstuctive sleep apnea but no Cpap since wt loss, sinusitis, neuropathy bilateral feet History of Any Multi-Drug Resistant Organisms: None Reported Past Surgical History: Appendectomy, Cholecystectomy, Heart Catheterization Additional Past Surgical History / Comment(s): colonoscopy x 3, eyelid surgery bilaterally,partial liver removed,lysis of adhesions Past Anesthesia/Blood Transfusion Reactions: Postoperative Nausea & Vomiting (PONV) Additional Past Anesthesia/Blood Transfusion Reaction / Comment(s): Pt states he has had PONV with gas only. Past Psychological History: Anxiety, Depression, Panic Disorder Additional Psychological History / Comment(s): He uses no assistive device. He drives. Smoking Status: Former smoker Past Alcohol Use History: Occasional Additional Past Alcohol Use History / Comment(s): Hx of alcoholism. He has hx of DTs. Past Drug Use History: None Reported Additional Drug Use History / Comment(s): Pt states in the s and s he used a variety of drugs (unable to state which ones) but has not used any since. - Past Family History Mother Family Medical History: Thyroid Disorder Additional Family Medical History / Comment(s): . Father Additional Family Medical History / Comment(s): Father of diverticulitis,peritonitis at the age of 35yrs. Medications and Allergies Home Medications Medication Instructions Recorded Confirmed Type Tamsulosin [Flomax] 0.4 mg PO DAILY 06/23/16 01/11/19 History HYDROcodone/APAP 10-325MG [[place] 1 tab PO Q6H PRN 09/06/17 01/11/19 History 10-325] Atorvastatin Calcium [Lipitor] 10 mg PO HS 09/30/18 01/11/19 History Cyclobenzaprine [Flexeril] 10 mg PO TID PRN 09/30/18 01/11/19 History Ondansetron HCl [Zofran] 4 mg PO BID PRN 09/30/18 01/11/19 History Ranitidine HCl [Zantac] 150 mg PO BID #30 tab 10/02/18 01/11/19 Rx Albuterol Inhaler [Ventolin Hfa 1 puff INHALATION RT-Q6H PRN 01/11/19 01/11/19 History Inhaler] Allopurinol [Zyloprim] 200 mg PO DAILY 01/11/19 01/11/19 History Apixaban [Eliquis] 2.5 mg PO BID 01/11/19 01/11/19 History Budesonide-Formot 160-4.5 Mcg 2 puff INHALATION RT-BID 01/11/19 01/11/19 History [Symbicort 160-4.5 Mcg Inhaler] Carvedilol [Coreg] 3.125 mg PO BID 01/11/19 01/11/19 History Colestipol HCl [Colestid] 2 tab PO TID 01/11/19 01/11/19 History Furosemide [Lasix] 40 mg PO DAILY 01/11/19 01/11/19 History Pantoprazole [Protonix] 40 mg PO DAILY 01/11/19 01/11/19 History guaiFENesin 400 mg PO BID 01/11/19 01/11/19 History Allergies Allergy/AdvReac Type Severity Reaction Status Date / Time No Known Allergies Allergy Verified 01/11/19 14:23 Physical Exam Vitals: Vital Signs Temp Pulse Resp BP Pulse Ox 01/11/19 18:55 97.8 F 86 18 140/77 98 01/11/19 17:00 82 18 134/78 98 01/11/19 16:00 86 16 110/81 99 01/11/19 15:27 98.6 F 79 18 124/86 100 01/11/19 15:00 79 15 133/98 99 01/11/19 14:41 80 16 01/11/19 14:32 84 16 01/11/19 14:15 24 01/11/19 14:02 103 H 26 H 90 L 01/11/19 13:38 97.6 F 104 H 28 H 148/95 97 Intake and Output 01/11/19 01/11/19 01/11/19 06:59 14:59 22:59 Other: Weight 90.265 kg Gen. appearance, comfortable no respiratory distress Head exam was generally normal. There was no scleral icterus or corneal arcus. Mucous membranes were moist. Neck was supple and without jugular venous distension, thyromegaly, or carotid bruits. Carotids were easily palpable bilaterally. There was no adenopathy. Lungs sounds are diminished bilaterally with few scattered expiratory wheezes throughout the lung man. There is adequate and symmetrical air entry bilaterally. Cardiac exam revealed the PMI to be normally situated and sized. The rhythm was regular and no extrasystoles were noted during several minutes of auscultation. The first and second heart sounds were normal and physiologic splitting of the second heart sound was noted. There were no murmurs, rubs, clicks, or gallops. Abdominal exam revealed normal bowel sounds. The abdomen was soft, non-tender, a nd without masses, organomegaly, or appreciable enlargement of the abdominal aorta. Examination of the extremities revealed easily palpable radial, femoral and pedal pulses. There was no cyanosis, clubbing or edema. Examination of the skin revealed no evidence of significant rashes, suspicious appearing nevi or other concerning lesions. Neurologically is awake and alert and there is no focal neurological deficit. Results - Laboratory Findings CBC and BMP: 01/11/19 13:52 01/11/19 13:52 PT/INR, D-dimer PT 11.0 sec (9.0-12.0) 01/11/19 13:52 INR 1.0 (<1.2) 01/11/19 13:52 Abnormal lab findings: Abnormal Labs 01/11/19 01/11/19 13:52 13:52 WBC 3.7 L RBC 3.44 L Hgb 11.2 L Hct 34.6 L MCV 100.5 H RDW 16.0 H Plt Count 123 L Myelocytes # (Manual) 0.04 H Carbon Dioxide 21 L Glucose 160 H Calcium 7.2 L Magnesium 0.6 L* - Diagnostic Findings Chest x-ray: image reviewed Assessment and Plan Plan: 1 acute COPD exacerbation 2 Severe chronic obstructive pulmonary disease - patient has severe COPD and his palmar function test today shows a FEV1 of 22% of predicted, diffusion capacity of 33% of predicted and he has also evidence of hyperinflation and air trapping. This is consistent with COPD. 3. Smoker 4. Alcoholism 5. Insulin treated type 2 diabetes mellitus 6. Congestive heart failure - CHF with and EF of 30% 7. 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 14 history of diverticulosis Plan Agree on the current treatment. We'll follow.
[2019-01-12] MEDS: ALLOPURINOL 100 MG TAB PO SCH (09:30)
[2019-01-12] MEDS: FUROSEMIDE 40 MG TAB PO SCH (09:31)
[2019-01-12] MEDS: TAMSULOSIN 0.4 MG CAP.ER.24H PO SCH (09:31)
[2019-01-12] MEDS: guaiFENesin 600 MG TABLET.ER PO SCH ×2 (09:31→21:12)
[2019-01-12] MEDS: FAMOTIDINE 20 MG TAB PO SCH ×2 (09:31→21:12)
[2019-01-12] MEDS: APIXABAN 2.5 MG TABLET PO SCH ×2 (09:31→21:12)
[2019-01-12] MEDS: ALPRAZolam 0.25 MG TAB PO PRN ×2 (09:50→21:12)
[2019-01-12] MEDS ORDERED: Magnesium Replacement Protocol 1 EACH MISC MISCELLANE PRN (11:12)
[2019-01-12] MEDS ORDERED: LORazepam 2 MG/ML INJ IV PRN ×3 (11:14)
[2019-01-12] MEDS ORDERED: THIAMINE 100 MG/ML 2 ML VIAL IM STA (11:14)
[2019-01-12] MEDS: COLESTIPOL HCL PO SCH ×3 (11:24→21:17)
[2019-01-12] MEDS ORDERED: INSULIN ASPART (NovoLOG) 100 UNIT/ML VIAL SQ ONE (11:28)
[2019-01-12] MEDS: MAGNESIUM OXIDE 400 MG TAB PO SCH ×3 (11:55→18:51)
[2019-01-12] MEDS: MAGNESIUM SULFATE-D5W PMX 1 GM in DEXTROSE/WATER 1 100ML.BAG IVPB SCH ×3 (11:56→15:25)
[2019-01-12 11:57] LABS: Glucose,Whole Blood 314 mg/dL (75-99)
--- NOTE | 2019-01-12 13:12 | P.PN ---
Subjective Progress Note Date: 01/12/19 Principal diagnosis: Acute exacerbation of chronic obstructive pulmonary disease. 63-year-old male patient, known history of chronic COPD with multiple previous hospitalizations for complications related to COPD and the most hospitalization was in September 2018 when he came in for a pneumothorax.. At that time, the patient was treated with a Thoravent with good results and reexpansion of the left lung without any major issues. He is a chronic smoker and he was smoking up to half pack of cigarettes a day. He is on 3 L of oxygen at home regarding his COPD. He has been Hospital as in the past for pneumococcal pneumonia and sepsis requiring intubation mechanical ventilation. He has also hypertension and hyperlipidemia. He came in today to the [facility] department complaining of worsening shortness of breath and he was Hospital as for an acute COPD exacerbation. His chest x-ray shows hyperinflation without any acute abnormalities. There is a pacemaker on the left. The patient is seen today 01/12/2019 in follow-up on the selective care unit. He is currently sitting up at the bedside. Awake and alert in no acute distress. Breathing easier today as compared to yesterday. 18 O2 saturations in the 90s on room air. He is afebrile. Hemodynamically stable. White count 1.9. Hemoglobin 10.3. Platelet count 119,000. Sodium 138. Potassium 3.8. Creatinine 1.29. Calcium 6.8. Magnesium 1.1. Objective - Vital Signs Vital signs: Vital Signs Temp 97.2 F L 01/12/19 11:46 Pulse 80 01/12/19 11:46 Resp 20 01/12/19 11:46 BP 122/81 01/12/19 11:46 Pulse Ox 98 01/12/19 11:46 Intake & Output 01/11/19 01/12/19 01/12/19 18:59 06:59 18:59 Intake Total 257 100 Balance 257 100 Weight 90.265 kg 91.852 kg Intake: IV 100 cefTRIAXone 1 gm In 100 Sodium Chloride 0.9% 50 ml @ 100 mls/hr IVPB Q24HR [facility] Rx#:[id number] Oral 257 Other: Voiding Method Toilet Toilet # Voids 2 2 - Exam Gen. appearance, comfortable pleasant 63-year-old gentleman, no respiratory distress Head exam was generally normal. There was no scleral icterus or corneal arcus. Mucous membranes were moist. Neck was supple and without jugular venous distension, thyromegaly, or carotid bruits. Carotids were easily palpable bilaterally. There was no adenopathy. Lungs sounds are diminished bilaterally. There is adequate and symmetrical air entry bilaterally. Cardiac exam revealed the PMI to be normally situated and sized. The rhythm was regular and no extrasystoles were noted during several minutes of auscultation. The first and second heart sounds were normal and physiologic splitting of the second heart sound was noted. There were no murmurs, rubs, clicks, or gallops. Abdominal exam revealed normal bowel sounds. The abdomen was soft, non-tender, and without masses, organomegaly, or appreciable enlargement of the abdominal aorta. Examination of the extremities revealed easily palpable radial, femoral and pedal pulses. There was no cyanosis, clubbing or edema. Examination of the skin revealed no evidence of significant rashes, suspicious appearing nevi or other concerning lesions. Neurologically is awake and alert and there is no focal neurological deficit. - Labs CBC & Chem 7: 01/12/19 06:29 01/12/19 06:29 Labs: Abnormal Lab Results - Last 24 Hours (Table) 01/11/19 01/11/19 01/11/19 Range/Units 13:52 13:52 20:37 WBC 3.7 L (3.8-10.6) k/uL RBC 3.44 L (4.30-5.90) m/uL Hgb 11.2 L (13.0-17.5) gm/dL Hct 34.6 L (39.0-53.0) % MCV 100.5 H (80.0-100.0) fL RDW 16.0 H (11.5-15.5) % Plt Count 123 L (150-450) k/uL Lymphocytes # (1.0-4.8) k/uL Myelocytes # (Manual) 0.04 H (0) k/uL Carbon Dioxide 21 L (22-30) mmol/L Creatinine (0.66-1.25) mg/dL Glucose 160 H (74-99) mg/dL POC Glucose (mg/dL) 325 H (75-99) mg/dL Calcium 7.2 L (8.4-10.2) mg/dL Magnesium 0.6 L* (1.6-2.3) mg/dL 01/12/19 01/12/19 01/12/19 Range/Units 06:12 06:29 06:29 WBC 1.9 L (3.8-10.6) k/uL RBC 3.05 L (4.30-5.90) m/uL Hgb 10.3 L (13.0-17.5) gm/dL Hct 31.3 L (39.0-53.0) % MCV 102.6 H (80.0-100.0) fL RDW 15.9 H (11.5-15.5) % Plt Count 119 L (150-450) k/uL Lymphocytes # 0.3 L (1.0-4.8) k/uL Myelocytes # (Manual) (0) k/uL Carbon Dioxide (22-30) mmol/L Creatinine 1.29 H (0.66-1.25) mg/dL Glucose 302 H (74-99) mg/dL POC Glucose (mg/dL) 302 H (75-99) mg/dL Calcium 6.8 L (8.4-10.2) mg/dL Magnesium 1.1 L (1.6-2.3) mg/dL 01/12/19 Range/Units 11:44 WBC (3.8-10.6) k/uL RBC (4.30-5.90) m/uL Hgb (13.0-17.5) gm/dL Hct (39.0-53.0) % MCV (80.0-100.0) fL RDW (11.5-15.5) % Plt Count (150-450) k/uL Lymphocytes # (1.0-4.8) k/uL Myelocytes # (Manual) (0) k/uL Carbon Dioxide (22-30) mmol/L Creatinine (0.66-1.25) mg/dL Glucose (74-99) mg/dL POC Glucose (mg/dL) 314 H (75-99) mg/dL Calcium (8.4-10.2) mg/dL Magnesium (1.6-2.3) mg/dL Assessment and Plan Assessment: Impression: 1 acute COPD exacerbation 2 Severe chronic obstructive pulmonary disease - patient has severe COPD and his palmar function test today shows a FEV1 of 22% of predicted, diffusion capacity of 33% of predicted and he has also evidence of hyperinflation and air trapping. This is consistent with COPD. 3. Smoker 4. Alcoholism 5. Insulin treated type 2 diabetes mellitus 6. Congestive heart failure - CHF with and EF of 30% 7. Hyperlipidemia 8 Hypertension 9 ALMA, currently not utilizing any CPAP 10 previous history of left-sided pneumothorax requiring Thoravent insertion with successful expansion 11 history of pacemaker 12 chronic hypoxic respiratory failure maintained on oxygen at 3 L 13 paroxysmal atrial fibrillation current rhythm is sinus, currently in a first- degree AV block with RBBB pattern. 14 history of diverticulosis Plan The patient was seen and evaluated by Dr. Reyes. He is currently stable from the pulmonary standpoint. Replace magnesium. We'll continue to follow. Probable discharge in the a.m. I, the cosigning physician, performed a history & physical examination of the patient. Lungs sounds are clear, diminished. Maintaining good O2 saturations in the 90s on room air. I discussed the assessment and plan of care with my nurse practitioner, Ella Hair. I attest to the above note as dictated by her.
[2019-01-12 15:19] VITALS: BMI 25.9
[2019-01-12 16:36] LABS: Glucose,Whole Blood 253 mg/dL (75-99)
[2019-01-12] MEDS: THIAMINE 100 MG TAB PO SCH ×2 (17:17→17:20)
[2019-01-12 20:25] LABS: Glucose,Whole Blood 303 mg/dL (75-99)
[2019-01-12] MEDS: ATORVASTATIN 10 MG TAB PO SCH (21:12)
--- NOTE | 2019-01-12 21:46 | PN ---
PROGRESS NOTE DATE OF SERVICE: 01/12/2019 This 63-year-old gentleman who was admitted with COPD acute exacerbation also had some anxiety also. The patient's blood sugar is elevated up to 314. Magnesium is 1.1. PAST MEDICAL HISTORY: Reviewed. REVIEW OF SYSTEMS: CARDIOVASCULAR: No angina or palpitations. RESPIRATORY: As mentioned earlier. GI no nausea or vomiting. no dysuria. NERVOUS SYSTEM: No numbness or weakness. CURRENT MEDICATIONS: Reviewed and include: 1. Tylenol p.r.n. 2. [place] 5 mg p.r.n. 3. Zyloprim. 4. Xanax. 5. Eliquis. 6. Lipitor. 7. Symbicort. 8. Flexeril. 9. Pepcid. 10.Lasix. 11.NovoLog. 12.Ativan p.r.n. 13.Solu-Medrol 40 IV q.8. 14.Narcan. 15.Protonix. 16.Flomax. 17.Vitamin B1. PHYSICAL EXAMINATION: Alert and oriented x3. Pulse 86. Blood pressure 114/82, respiration 20, temperature 98.2. Pulse ox 100 percent on room air. HEENT: Conjunctivae normal. NECK: No JVD. CARDIOVASCULAR: S1, S2 muffled. RESPIRATORY: Breath sounds diminished in the bases. Bilateral scattered rhonchi and crackles. Expiratory wheezing also present. ABDOMEN: Soft, nontender. No mass palpable. LEGS: No edema. No swelling. NERVOUS SYSTEM: Higher functions as mentioned earlier. Moves all four limbs. No focal motor or sensory deficits. LYMPHATICS: No lymph nodes palpable in the neck, axillae or groin. SKIN no ulcer, no rashes, no bleeding. JOINTS: No active deforming arthropathy. LAB STUDIES: WBC 1.9, hemoglobin 10.3, platelets 119. Glucose noted. Magnesium 1.1. ASSESSMENT: 1. Chronic obstructive pulmonary disease acute exacerbation with acute purulent tracheobronchitis. 2. Severe hypomagnesemia. 3. Continued ongoing nicotine dependence. 4. Anxiety state. 5. History of recent pneumothorax and ThoraVent application. 6. Leukopenia. 7. Mild pancytopenia of undetermined etiology. 8. Anemia. 9. History atrial fibrillation. 10.History of congestive heart failure. 11.History of chronic obstructive pulmonary disease. 12.Diabetes type 2. 13.History of deep vein thrombosis. 14.History of gastroesophageal reflux disease. 15.Hyperlipidemia. 16.Hypertension. 17.History of obstructive sleep apnea, on CPAP. 18.Chronic hypoxic respiratory failure on 3 L oxygen. 19.History of paroxysmal atrial fibrillation. 20.History of EtOH. 21.Obstructive sleep apnea. 22.History of sinusitis. 23.History of cholecystectomy. 24.Anxiety, depression, panic disorder. 25.Continued ongoing nicotine dependence. RECOMMENDATIONS AND DISCUSSION: Recommend to continue current medications, continue with monitoring, symptomatic treatment. I would continue to monitor magnesium supplementation. We will start p.o. magnesium. Continue with DVT prophylaxis. Patient is on Eliquis already. Continue the broad-spectrum IV antibiotics. Continue the rest of medications. I would also recommend CIWA protocol also and p.r.n. Ativan. Guarded prognosis because of multiple complex medical issues. Further recommendations to follow. MMAKUAL / TOAN: [id number] /
[2019-01-13 06:13] LABS: Glucose,Whole Blood 327 mg/dL (75-99)
[2019-01-13] MEDS: PANTOPRAZOLE 40 MG TABLET PO SCH (06:57)
[2019-01-13] MEDS: THIAMINE 100 MG TAB PO SCH (06:57)
[2019-01-13] MEDS: CARVEDILOL 3.125 MG TAB PO SCH (06:57)
[2019-01-13] MEDS: INSULIN ASPART (NovoLOG) 100 UNIT/ML VIAL SQ SCH (06:57)
[2019-01-13 08:10] VITALS: BP 141/92; PULSE 93; RESP 20; TEMP 97.7
[2019-01-13] MEDS ORDERED: INSULIN REGULAR BOLUS (FROM DRIP BAG) IV ONE (08:25)
[2019-01-13] MEDS: ALLOPURINOL 100 MG TAB PO SCH (08:28)
[2019-01-13] MEDS: TAMSULOSIN 0.4 MG CAP.ER.24H PO SCH (08:29)
[2019-01-13] MEDS: methylPREDNISolone SOD SUCCI 125 MG/2 ML VIAL IV SCH (08:30)
[2019-01-13] MEDS: APIXABAN 2.5 MG TABLET PO SCH (08:30)
[2019-01-13] MEDS ORDERED: INSULIN REGULAR 100 UNIT in SODIUM CHLORIDE 0.9% 100 ML IV SCH (08:30)
[2019-01-13] MEDS: FAMOTIDINE 20 MG TAB PO SCH (08:30)
[2019-01-13] MEDS: FUROSEMIDE 40 MG TAB PO SCH (08:30)
[2019-01-13] MEDS: MAGNESIUM OXIDE 400 MG TAB PO SCH (08:30)
[2019-01-13 08:31] LABS: Anisocytosis Slight; Basophils % (A) 0 %; Eosinophils % (A) 1 %; HCT 33.5 % (39.0-53.0); HGB 10.8 gm/dL (13.0-17.5); Lymphocytes # (A) 0.3 k/uL (1.0-4.8); Lymphocytes % (A) 5 %; MCH 33.2 pg (25.0-35.0); MCHC 32.1 g/dL (31.0-37.0); MCV 103.4 fL (80.0-100.0); Macrocytosis Moderate; Mean Platelet Volume 7.7; Monocytes # (A) 0.3 k/uL (0-1.0); Monocytes % (A) 4 %; Neutrophils # (A) 5.7 k/uL (1.3-7.7); Neutrophils % (A) 90 %; Platelet Count 150 k/uL (150-450); RBC 3.24 m/uL (4.30-5.90); RDW 17.1 % (11.5-15.5); WBC 6.3 k/uL (3.8-10.6)
[2019-01-13] MEDS: guaiFENesin 600 MG TABLET.ER PO SCH (08:32)
[2019-01-13] MEDS: COLESTIPOL HCL PO SCH (08:32)
[2019-01-13 08:40] LABS: Calcium 7.3 mg/dL (8.4-10.2); Magnesium 1.8 mg/dL (1.6-2.3); Potassium 4.1 mmol/L (3.5-5.1)
[2019-01-13] MEDS: ALPRAZolam 0.25 MG TAB PO PRN (08:55)
[2019-01-13] MEDS: SYMBICORT 160-4.5 MCG INHALER INHALATION SCH (09:03)
[2019-01-13 09:27] LABS: Glucose,Whole Blood 292 mg/dL (75-99)
[2019-01-13] MEDS ORDERED: INSULIN ASPART (NovoLOG) 100 UNIT/ML VIAL SQ ONE (09:28)
[2019-01-13 11:53] LABS: Glucose,Whole Blood 195 mg/dL (75-99)
[2019-01-13] MEDS ORDERED: INSULIN ASPART (NovoLOG) 100 UNIT/ML VIAL SQ SCH ×2 (12:30)
--- NOTE | 2019-01-13 12:49 | P.PN ---
Subjective Progress Note Date: 01/13/19 63-year-old male patient, known history of chronic COPD with multiple previous hospitalizations for complications related to COPD and the most hospitalization was in September 2018 when he came in for a pneumothorax.. At that time, the patient was treated with a Thoravent with good results and reexpansion of the left lung without any major issues. He is a chronic smoker and he was smoking up to half pack of cigarettes a day. He is on 3 L of oxygen at home regarding his COPD. He has been Hospital as in the past for pneumococcal pneumonia and sepsis requiring intubation mechanical ventilation. He has also hypertension and hyperlipidemia. He came in today to the [facility] department complaining of wors ening shortness of breath and he was Hospital as for an acute COPD exacerbation. His chest x-ray shows hyperinflation without any acute abnormalities. There is a pacemaker on the left. The patient is seen today 01/12/2019 in follow-up on the selective care unit. He is currently sitting up at the bedside. Awake and alert in no acute distress. Breathing easier today as compared to yesterday. 18 O2 saturations in the 90s on room air. He is afebrile. Hemodynamically stable. White count 1.9. Hemoglobin 10.3. Platelet count 119,000. Sodium 138. Potassium 3.8. Creatinine 1.29. Calcium 6.8. Magnesium 1.1. On 01/13/2019, patient is feeling much better. His overall pulmonary status back to his baseline. No significant cough sputum production. No chest that is so wheezing. He remains hemodynamically stable. No angina. No palpitation. White cell count is at 6.3. He is still on a combination of gonadal [id number], Symbicort as maintenance and IV Solu-Medrol which has been tapered down to 40 mg IV push every 8 hours. He is also on Rocephin. Objective - Vital Signs Vital signs: Vital Signs Temp 97.7 F 01/13/19 08:00 Pulse 93 01/13/19 08:00 Resp 20 01/13/19 08:00 BP 141/92 01/13/19 08:00 Pulse Ox 99 01/13/19 08:00 Intake & Output 01/12/19 01/13/19 01/13/19 18:59 06:59 18:59 Intake Total 1120 290 230 Output Total 600 Balance 520 290 230 Weight 91.852 kg 91.9 kg Intake: IV 400 50 Magnesium Sulfate-D5w Pmx 300 1 gm In Dextrose/Water 1 100ml.bag @ 100 mls/hr IVPB Q1H [facility] Rx#: [id number] cefTRIAXone 1 gm In 100 50 Sodium Chloride 0.9% 50 ml @ 100 mls/hr IVPB Q24HR [facility] Rx#:[id number] Oral 720 240 230 Output: Urine 600 Other: Voiding Method Toilet Toilet Toilet # Voids 2 4 # Bowel Movements 2 1 - Exam Gen. appearance, comfortable pleasant 63-year-old gentleman, no respiratory distress Head exam was generally normal. There was no scleral icterus or corneal arcus. Mucous membranes were moist. Neck was supple and without jugular venous distension, thyromegaly, or carotid bruits. Carotids were easily palpable bilaterally. There was no adenopathy. Lungs sounds are diminished bilaterally. There is adequate and symmetrical air entry bilaterally. Overall breath sounds are improved with the past 48 hours of treatment with bronchodilators and steroids. Cardiac exam revealed the PMI to be normally situated and sized. The rhythm was regular and no extrasystoles were noted during several minutes of auscultation. The first and second heart sounds were normal and physiologic splitting of the second heart sound was noted. There were no murmurs, rubs, clicks, or gallops. Abdominal exam revealed normal bowel sounds. The abdomen was soft, non-tender, and without masses, organomegaly, or appreciable enlargement of the abdominal aorta. Examination of the extremities revealed easily palpable radial, femoral and pedal pulses. There was no cyanosis, clubbing or edema. Examination of the skin revealed no evidence of significant rashes, suspicious appearing nevi or other concerning lesions. Neurologically is awake and alert and there is no focal neurological deficit. - Labs CBC & Chem 7: 01/13/19 06:48 01/13/19 06:48 Labs: Abnormal Lab Results - Last 24 Hours (Table) 01/12/19 01/12/19 01/13/19 Range/Units 16:35 20:24 06:12 RBC (4.30-5.90) m/uL Hgb (13.0-17.5) gm/dL Hct (39.0-53.0) % MCV (80.0-100.0) fL RDW (11.5-15.5) % Lymphocytes # (1.0-4.8) k/uL BUN (9-20) mg/dL Glucose (74-99) mg/dL POC Glucose (mg/dL) 253 H 303 H 327 H (75-99) mg/dL Calcium (8.4-10.2) mg/dL 01/13/19 01/13/19 01/13/19 Range/Units 06:48 06:48 09:17 RBC 3.24 L (4.30-5.90) m/uL Hgb 10.8 L (13.0-17.5) gm/dL Hct 33.5 L (39.0-53.0) % MCV 103.4 H (80.0-100.0) fL RDW 17.1 H (11.5-15.5) % Lymphocytes # 0.3 L (1.0-4.8) k/uL BUN 22 H (9-20) mg/dL Glucose 342 H (74-99) mg/dL POC Glucose (mg/dL) 292 H (75-99) mg/dL Calcium 7.3 L (8.4-10.2) mg/dL 01/13/19 Range/Units 11:47 RBC (4.30-5.90) m/uL Hgb (13.0-17.5) gm/dL Hct (39.0-53.0) % MCV (80.0-100.0) fL RDW (11.5-15.5) % Lymphocytes # (1.0-4.8) k/uL BUN (9-20) mg/dL Glucose (74-99) mg/dL POC Glucose (mg/dL) 195 H (75-99) mg/dL Calcium (8.4-10.2) mg/dL Assessment and Plan Plan: 1 acute COPD exacerbation 2 Severe chronic obstructive pulmonary disease - patient has severe COPD and his palmar function test today shows a FEV1 of 22% of predicted, diffusion capacity of 33% of predicted and he has also evidence of hyperinflation and air trapping. This is consistent with COPD. 3. Smoker 4. Alcoholism 5. Insulin treated type 2 diabetes mellitus 6. Congestive heart failure - CHF with and EF of 30% 7. Hyperlipidemia 8 Hypertension 9 ALMA, currently not utilizing any CPAP 10 previous history of left-sided pneumothorax requiring Thoravent insertion with successful expansion 11 history of pacemaker 12 chronic hypoxic respiratory failure maintained on oxygen at 3 L 13 paroxysmal atrial fibrillation current rhythm is sinus, currently in a first- degree AV block with RBBB pattern. 14 history of diverticulosis Plan Exacerbation improved. Steroids have been tapered. Discharge planning is in progress. May discharge this patient home on a prednisone burst taper in addition to his routine bronchodilators.
--- NOTE | 2019-01-14 02:15 | DS ---
DISCHARGE SUMMARY DATE OF SERVICE: 01/13/2019. FINAL DIAGNOSES: 1. Chronic obstructive pulmonary disease exacerbation with acute purulent tracheobronchitis. 2. Severe hypomagnesemia. 3. Continued ongoing nicotine dependence. 4. Anxiety state. 5. History of recent pneumothorax and ThoraVent application. 6. Leukopenia. 7. History of mild pancytopenia of undetermined etiology. 8. Anemia. 9. History atrial fibrillation. 10.History of congestive heart failure. 11.History of history of chronic obstructive pulmonary disease. 12.Diabetes type 2. 13.History of deep vein thrombosis. 14.Gastroesophageal reflux disease. 15.Hyperlipidemia. 16.Hypertension. 17.History of obstructive sleep apnea on CPAP. 18.History of chronic hypoxic respiratory failure on 3 L oxygen. 19.History of paroxysmal atrial fibrillation. 20.History of EtOH. 21.Obstructive sleep apnea. 22.History of sinusitis. 23.History of cholecystectomy. 24.Anxiety, depression, panic disorder. 25.Continued ongoing nicotine dependence. DISCHARGE DISPOSITION: The patient will be discharged in stable condition with guarded prognosis. HISTORY OF PRESENT ILLNESS: This 63-year-old gentleman with COPD exacerbation, treated with bronchodilators, steroids, antibiotics and the patient improved significantly. Dr. Reyes saw the patient. Patient was keen on going home. The patient will be discharged in stable condition with guarded prognosis. PHYSICAL EXAMINATION: On exam, vitals are stable. Cardiovascular: S1, S2. Abdomen is soft. Respiratory: A few scattered rhonchi. DISCHARGE ADVICE AND MEDICATIONS: 1. Diet is cardiac diet. 2. Activity limited until followup. 3. Follow up with Dr. Walker in 2-3 days. 4. Follow up with Dr. Reyes as recommended. DISCHARGE MEDICATIONS: 1. Colestid 2 g p.o. t.i.d. 2. Coreg 3.125 mg p.o. b.i.d. 3. Eliquis 2.5 mg b.i.d. 4. Flexeril 10 mg t.i.d. p.r.n. 5. Flomax 0.4 daily. 6. Guaifenesin 400 mg p.o. b.i.d. 7. Lasix 40 mg p.o. daily. 8. Lipitor 10 mg q.h.s. 9. [place] 10 mg q.6h p.r.n. 10.Protonix 40 mg. 11.symbicort b.i.d. 12.Albuterol p.r.n. 13.Zofran 4 mg p.o. b.i.d. p.r.n. 14.Zyloprim 200 mg p.o. daily. 15.Ceftin 500 daily for 3 days. 16.Magnesium oxide 400 mg p.o. t.i.d. 17.Prednisone 40 mg daily for 3 days, 30 for 3 days 20 for 3 days, 10 for 3 days. 18.Thiamine 100 mg p.o. b.i.d. 19.Zantac 150 mg p.o. b.i.d. Once again, the patient is being discharged in stable condition with guarded prognosis. MMAKUAL / KATHYN: [id number] / MTDD
== END 2019-01-13 13:52 | disposition home or self-care (01) | DRG 191 ==
LOC: EC 13:35 → 3SCARD 17:21
PROVIDERS: ADMIT Hospitalist; ATTEND Hospitalist
DX: J44.0 Chronic obstructive pulmonary disease with (acute) lower respiratory infection (principal); J96.11 Chronic respiratory failure with hypoxia; D61.818 Other pancytopenia; J20.9 Acute bronchitis, unspecified; E11.40 Type 2 diabetes mellitus with diabetic neuropathy, unspecified; I11.0 Hypertensive heart disease with heart failure; I50.9 Heart failure, unspecified; E83.42 Hypomagnesemia; E83.51 Hypocalcemia; I48.0 Paroxysmal atrial fibrillation; J44.1 Chronic obstructive pulmonary disease with (acute) exacerbation; G47.33 Obstructive sleep apnea (adult) (pediatric); I44.0 Atrioventricular block, first degree; I45.10 Unspecified right bundle-branch block; K21.9 Gastro-esophageal reflux disease without esophagitis; K57.90 Diverticulosis of intestine, part unspecified, without perforation or abscess without bleeding; E78.5 Hyperlipidemia, unspecified; F32.9 Major depressive disorder, single episode, unspecified; F41.0 Panic disorder [episodic paroxysmal anxiety]; F41.1 Generalized anxiety disorder; F10.20 Alcohol dependence, uncomplicated; F17.210 Nicotine dependence, cigarettes, uncomplicated; Z99.81 Dependence on supplemental oxygen; Z79.01 Long term (current) use of anticoagulants; Z79.51 Long term (current) use of inhaled steroids; Z79.899 Other long term (current) drug therapy; Z86.718 Personal history of other venous thrombosis and embolism; Z87.09 Personal history of other diseases of the respiratory system; Z90.49 Acquired absence of other specified parts of digestive tract; Z87.01 Personal history of pneumonia (recurrent); Z95.0 Presence of cardiac pacemaker; Z99.89 Dependence on other enabling machines and devices; Z83.49 Family history of other endocrine, nutritional and metabolic diseases; Z83.79 Family history of other diseases of the digestive system
CPT/HCPCS: 36415; 71046; 80048; 80053; 82550; 83735; 83880; 84484; 85025; 85610; 85730; 93005; 94640; 94760; 96365; 96366; 96367; 96375; 99291

== ENCOUNTER → 2020-03-30 | Outpatient (CLI) | payer OTHER ==
--- NOTE | 2020-03-30 08:52 | CT ---
EXAMINATION TYPE: CT chest w con DATE OF EXAM: 03/30/2020 COMPARISON: None HISTORY: chest pain CT DLP: 822 mGycm Automated exposure control for dose reduction was used. CONTRAST: CT scan of the chest is performed with IV Contrast, patient injected with 80 mL of Isovue 300. FINDINGS: LUNGS: The lungs are grossly clear, there is no concerning parenchymal mass or nodule identified. Ri ght basilar bleb noted. Scattered parenchymal scarring. There is no pleural effusion or pneumothorax seen. The tracheobronchial tree is patent. MEDIASTINUM: There are no greater than 1 cm hilar or mediastinal lymph nodes. No pericardial effusi on is seen. Thoracic aorta is of normal caliber. The heart is not enlarged. UPPER ABDOMEN: No significant abnormality appreciated. OTHER: No additional significant abnormality is seen. IMPRESSION: chronic changes without acute pulmonary disease
== END | disposition home or self-care (01) ==
LOC: RADCTMAIN 06:59
PROVIDERS: ATTEND Internal Medicine Critical Care Medicine
DX: J98.4 Other disorders of lung (principal)
CPT/HCPCS: 82565; 84520; 71260; 36415; Q9967

== ENCOUNTER → 2020-04-27 | Outpatient (CLI) | payer SELFPAY ==
--- NOTE | 2020-04-27 08:24 | US ---
EXAMINATION TYPE: US abdomen limited DATE OF EXAM: 04/27/2020 COMPARISON: NONE CLINICAL HISTORY: N18.3 CKD STAGE III. Sharp chest pain that radiates to RUQ, difficulty breathing, on O2, cholecystectomy EXAM MEASUREMENTS: Liver Length: 23.9 cm Gallbladder Wall: Surgically absent CBD: 0.7cm Right Kidney: 10.7 x 4.9 x 5.0 cm Pancreas: not seen due to bowel gas Liver: enlarged and heterogeneous Gallbladder: Surgically absent Evidence for sonographic Recinos's sign: no CBD: wnl Right Kidney: wnl incidental of pleural effusion on the right IMPRESSION: 1. The liver is enlarged and densities may reflect underlying fatty hepatic infiltration. 2. The gallbladder is surgically absent.
== END | disposition home or self-care (01) ==
LOC: RADUSWWP 07:14
PROVIDERS: ATTEND Internal Medicine Nephrology
DX: N18.30 Chronic kidney disease, stage 3 unspecified (principal)
CPT/HCPCS: 76705

== ENCOUNTER 2020-08-02 10:29 | Inpatient (IN) | payer OTHER, MEDICARE ==
[2020-08-02] MEDS ORDERED: FUROSEMIDE 10 MG/ML 4 ML VIAL IV STA (10:35)
[2020-08-02] MEDS ORDERED: NITROGLYCERIN OINT 1 INCH/GM PACKET TOPICAL STA (10:35)
--- NOTE | 2020-08-02 10:37 | ED ---
General Adult HPI - General Stated complaint: SOB Time Seen by Provider: 08/02/20 10:31 Source: patient, EMS, RN notes reviewed Mode of arrival: EMS Limitations: no limitations - History of Present Illness Initial comments: Patient is a pleasant 64-year-old male presenting to the emergency Department with complaints of difficult in breathing. Onset of symptoms was last 3 days. Patient does have chronic dyspnea associated with COPD. Patient is also had several episodes of CHF. Patient does complain of his leg swelling. No Pain. Patient does have cough with occasional green sputum. No fever. Patient does feel fatigued. - Related Data Home Medications Medication Instructions Recorded Confirmed Tamsulosin [Flomax] 0.4 mg PO DAILY 06/23/16 08/02/20 HYDROcodone/APAP 10-325MG [Burchard 1 tab PO Q6H PRN 09/06/17 08/02/20 10-325] Cyclobenzaprine [Flexeril] 10 mg PO TID PRN 09/30/18 08/02/20 Ondansetron HCl [Zofran] 4 mg PO BID PRN 09/30/18 08/02/20 Apixaban [Eliquis] 2.5 mg PO BID 01/11/19 08/02/20 Furosemide [Lasix] 40 mg PO DAILY 01/11/19 08/02/20 Pantoprazole [Protonix] 40 mg PO DAILY 01/11/19 08/02/20 guaiFENesin 400 mg PO BID 01/11/19 08/02/20 Chlorthalidone [Hygroton] 25 mg PO DAILY 08/02/20 08/02/20 Insulin Aspart [NovoLOG Flexpen] See Protocol SQ AC-TID 08/02/20 08/02/20 Insulin Glargine,Hum.rec.anlog 40 unit SQ DAILY 08/02/20 08/02/20 [Lantus Solostar] Levothyroxine Sodium [Synthroid] 25 mcg PO DAILY 08/02/20 08/02/20 Metoprolol Succinate [Toprol XL] 25 mg PO DAILY 08/02/20 08/02/20 Tiotropium 18 Mcg/Puff [Spiriva] 2 puff INHALATION RT-DAILY 08/02/20 08/02/20 amLODIPine [Norvasc] 2.5 mg PO DAILY 08/02/20 08/02/20 predniSONE [Deltasone] 20 mg PO DAILY 08/02/20 08/02/20 Allergies Allergy/AdvReac Type Severity Reaction Status Date / Time No Known Allergies Allergy Verified 08/02/20 11:49 Review of Systems ROS Statement: Those systems with pertinent positive or pertinent negative responses have been documented in the HPI. ROS Other: All systems not noted in ROS Statement are negative. Constitutional: Denies: fever, chills Eyes: Denies: eye pain ENT: Denies: ear pain Respiratory: Reports: cough, dyspnea Cardiovascular: Denies: chest pain Endocrine: Reports: fatigue Gastrointestinal: Denies: abdominal pain Genitourinary: Denies: dysuria Musculoskeletal: Denies: back pain Skin: Denies: rash Neurological: Denies: weakness Past Medical History Past Medical History: Atrial Fibrillation, Heart Failure, COPD, Diabetes Mellitus, Deep Vein Thrombosis (DVT), GERD/Reflux, Hyperlipidemia, Hypertension, Sleep Apnea/CPAP/BIPAP Additional Past Medical History / Comment(s): See Dr Landeros's H&P, Other HX: Chronic hypoxic respiratory failure and the patient OXYGEN dependent between 3 1/2-4 L prn and at night, previous history of left-sided pneumothorax requiring a Thoravent insertion, IDDM type II, paroxysmal AFIB, alcoholism, diverticulosis, obstuctive sleep apnea but no Cpap since wt loss, sinusitis, neuropathy bilateral feet History of Any Multi-Drug Resistant Organisms: None Reported Past Surgical History: Appendectomy, Cholecystectomy, Heart Catheterization Additional Past Surgical History / Comment(s): colonoscopy x 3, eyelid surgery bilaterally,partial liver removed,lysis of adhesions Past Anesthesia/Blood Transfusion Reactions: Postoperative Nausea & Vomiting (PONV) Additional Past Anesthesia/Blood Transfusion Reaction / Comment(s): Pt states he has had PONV with gas only. Past Psychological History: Anxiety, Depression, Panic Disorder Additional Psychological History / Comment(s): He uses no assistive device. He drives. Past Alcohol Use History: Occasional Additional Past Alcohol Use History / Comment(s): Hx of alcoholism. He has hx of DTs. Past Drug Use History: None Reported Additional Drug Use History / Comment(s): Pt states in the 1970's and 1979's he used a variety of drugs (unable to state which ones) but has not used any since. - Past Family History Mother Family Medical History: Thyroid Disorder Additional Family Medical History / Comment(s): . Father Additional Family Medical History / Comment(s): Father of diverticulitis,peritonitis at the age of 35yrs. General Exam Limitations: no limitations General appearance: alert Head exam: Present: normocephalic Eye exam: Present: normal appearance Neck exam: Present: normal inspection Respiratory exam: Present: decreased breath sounds (More so at the bases) Cardiovascular Exam: Present: tachycardia GI/Abdominal exam: Present: soft. Absent: tenderness Extremities exam: Present: pedal edema. Absent: calf tenderness Neurological exam: Present: alert Psychiatric exam: Present: normal affect, normal mood Skin exam: Present: normal color Course Vital Signs 08/02/20 08/02/20 10:33 11:50 Temperature 97.7 F Pulse Rate 124 H 121 H Respiratory 30 H 26 H Rate Blood Pressure 113/62 105/80 O2 Sat by Pulse 99 100 Oximetry EKG Findings - EKG Comments: EKG Findings:: Narrow complex tachycardia with some irregularity, rate 123. SD 208. QRS 136. QT 302. QTC 432. Left axis. Right bundle branch block. No acute ST change. Some motion artifact is present. Medical Decision Making - Medical Decision Making Patient reevaluated, patient and family updated. After she hasn't paged for admission, covering for this [facility] Case was discussed with Dr. gregg, who will admit. - Lab Data Result diagrams: 08/02/20 10:52 08/02/20 10:52 Lab Results 08/02/20 08/02/20 08/02/20 Range/Units 10:52 10:52 10:52 WBC 5.4 (3.8-10.6) k/uL RBC 3.20 L (4.30-5.90) m/uL Hgb 10.0 L (13.0-17.5) gm/dL Hct 30.4 L (39.0-53.0) % MCV 95.0 (80.0-100.0) fL MCH 31.2 (25.0-35.0) pg MCHC 32.9 (31.0-37.0) g/dL RDW 13.7 (11.5-15.5) % Plt Count 202 (150-450) k/uL MPV 8.0 Neutrophils % 58 % Lymphocytes % 27 % Monocytes % 9 % Eosinophils % 4 % Basophils % 0 % Neutrophils # 3.1 (1.3-7.7) k/uL Lymphocytes # 1.4 (1.0-4.8) k/uL Monocytes # 0.5 (0-1.0) k/uL Eosinophils # 0.2 (0-0.7) k/uL Basophils # 0.0 (0-0.2) k/uL Hypochromasia Slight PT 11.3 (9.0-12.0) sec INR 1.1 (<1.2) APTT 23.9 (22.0-30.0) sec Sodium 135 L (137-145) mmol/L Potassium 4.5 (3.5-5.1) mmol/L Chloride 93 L (98-107) mmol/L Carbon Dioxide 36 H (22-30) mmol/L Anion Gap 6 mmol/L BUN 39 H (9-20) mg/dL Creatinine 1.71 H (0.66-1.25) mg/dL Est GFR (CKD-EPI)AfAm 48 (>60 ml/min/1.73 sqM) Est GFR (CKD-EPI)NonAf 42 (>60 ml/min/1.73 sqM) Glucose 179 H (74-99) mg/dL Plasma Lactic Acid Stone (0.7-2.0) mmol/L Calcium 8.9 (8.4-10.2) mg/dL Total Bilirubin 0.5 (0.2-1.3) mg/dL AST 21 (17-59) U/L ALT 11 (4-49) U/L Alkaline Phosphatase 86 (38-126) U/L Troponin I (0.000-0.034) ng/mL NT-Pro-B Natriuret Pep pg/mL Total Protein 5.7 L (6.3-8.2) g/dL Albumin 3.2 L (3.5-5.0) g/dL Coronavirus (PCR) (Not Detectd) 08/02/20 08/02/20 08/02/20 Range/Units 10:52 10:52 10:52 WBC (3.8-10.6) k/uL RBC (4.30-5.90) m/uL Hgb (13.0-17.5) gm/dL Hct (39.0-53.0) % MCV (80.0-100.0) fL MCH (25.0-35.0) pg MCHC (31.0-37.0) g/dL RDW (11.5-15.5) % Plt Count (150-450) k/uL MPV Neutrophils % % Lymphocytes % % Monocytes % % Eosinophils % % Basophils % % Neutrophils # (1.3-7.7) k/uL Lymphocytes # (1.0-4.8) k/uL Monocytes # (0-1.0) k/uL Eosinophils # (0-0.7) k/uL Basophils # (0-0.2) k/uL Hypochromasia PT (9.0-12.0) sec INR (<1.2) APTT (22.0-30.0) sec Sodium (137-145) mmol/L Potassium (3.5-5.1) mmol/L Chloride (98-107) mmol/L Carbon Dioxide (22-30) mmol/L Anion Gap mmol/L BUN (9-20) mg/dL Creatinine (0.66-1.25) mg/dL Est GFR (CKD-EPI)AfAm (>60 ml/min/1.73 sqM) Est GFR (CKD-EPI)NonAf (>60 ml/min/1.73 sqM) Glucose (74-99) mg/dL Plasma Lactic Acid Stone 1.1 (0.7-2.0) mmol/L Calcium (8.4-10.2) mg/dL Total Bilirubin (0.2-1.3) mg/dL AST (17-59) U/L ALT (4-49) U/L Alkaline Phosphatase (38-126) U/L Troponin I 0.020 (0.000-0.034) ng/mL NT-Pro-B Natriuret Pep 4530 pg/mL Total Protein (6.3-8.2) g/dL Albumin (3.5-5.0) g/dL Coronavirus (PCR) (Not Detectd) 08/02/20 Range/Units 10:52 WBC (3.8-10.6) k/uL RBC (4.30-5.90) m/uL Hgb (13.0-17.5) gm/dL Hct (39.0-53.0) % MCV (80.0-100.0) fL MCH (25.0-35.0) pg MCHC (31.0-37.0) g/dL RDW (11.5-15.5) % Plt Count (150-450) k/uL MPV Neutrophils % % Lymphocytes % % Monocytes % % Eosinophils % % Basophils % % Neutrophils # (1.3-7.7) k/uL Lymphocytes # (1.0-4.8) k/uL Monocytes # (0-1.0) k/uL Eosinophils # (0-0.7) k/uL Basophils # (0-0.2) k/uL Hypochromasia PT (9.0-12.0) sec INR (<1.2) APTT (22.0-30.0) sec Sodium (137-145) mmol/L Potassium (3.5-5.1) mmol/L Chloride (98-107) mmol/L Carbon Dioxide (22-30) mmol/L Anion Gap mmol/L BUN (9-20) mg/dL Creatinine (0.66-1.25) mg/dL Est GFR (CKD-EPI)AfAm (>60 ml/min/1.73 sqM) Est GFR (CKD-EPI)NonAf (>60 ml/min/1.73 sqM) Glucose (74-99) mg/dL Plasma Lactic Acid Stone (0.7-2.0) mmol/L Calcium (8.4-10.2) mg/dL Total Bilirubin (0.2-1.3) mg/dL AST (17-59) U/L ALT (4-49) U/L Alkaline Phosphatase (38-126) U/L Troponin I (0.000-0.034) ng/mL NT-Pro-B Natriuret Pep pg/mL Total Protein (6.3-8.2) g/dL Albumin (3.5-5.0) g/dL Coronavirus (PCR) Not Detected (Not Detectd) - Radiology Data Radiology results: image reviewed (Chest x-ray read as no acute process) Disposition Clinical Impression: Congestive heart failure, COPD (chronic obstructive pulmonary disease) Disposition: ADMITTED IP TO THIS [facility] Is patient prescribed a controlled substance at d/c from ED?: No Decision Time: 11:56
--- NOTE | 2020-08-02 11:01 | XR ---
EXAMINATION TYPE: XR chest 1V portable DATE OF EXAM: 08/02/2020 HISTORY: Shortness of breath. COMPARISON: 01/11/2019 TECHNIQUE: Single view of the chest is submitted. FINDINGS: Demonstrated are scattered senescent parenchymal change. There is no evidence for focal infiltrate. The heart is stable. Hilar and mediastinal structures are within normal limits. Degenerative changes are seen of the dorsal spine. IMPRESSION: 1. Chronic changes without evidence for acute pulmonary disease.
[2020-08-02 11:11] LABS: Albumin 3.2 g/dL (3.5-5.0); Calcium 8.9 mg/dL (8.4-10.2); Potassium 4.5 mmol/L (3.5-5.1); Total Bilirubin 0.5 mg/dL (0.2-1.3); Total Protein 5.7 g/dL (6.3-8.2)
[2020-08-02 11:12] LABS: Basophils % (A) 0 %; Eosinophils # (A) 0.2 k/uL (0-0.7); Eosinophils % (A) 4 %; HCT 30.4 % (39.0-53.0); Hypochromasia Slight; Lymphocytes # (A) 1.4 k/uL (1.0-4.8); Lymphocytes % (A) 27 %; MCH 31.2 pg (25.0-35.0); MCHC 32.9 g/dL (31.0-37.0); Monocytes # (A) 0.5 k/uL (0-1.0); Monocytes % (A) 9 %; Neutrophils # (A) 3.1 k/uL (1.3-7.7); Neutrophils % (A) 58 %; Platelet Count 202 k/uL (150-450); RDW 13.7 % (11.5-15.5); WBC 5.4 k/uL (3.8-10.6)
[2020-08-02 11:45] LABS: INR 1.1 (<1.2); Partial Thromboplastin Time 23.9 sec (22.0-30.0); Prothrombin Time 11.3 sec (9.0-12.0)
[2020-08-02] MEDS ORDERED: HYDROcodone/APAP 10-325MG 1 EACH TAB PO ONE (11:55)
[2020-08-02] MEDS ORDERED: ASPIRIN 325 MG TAB PO STA (11:57)
[2020-08-02] MEDS ORDERED: IPRATROPIUM-ALBUTEROL 3 ML NEB INHALATION PRN (11:59)
[2020-08-02] MEDS: IPRATROPIUM-ALBUTEROL 3 ML NEB INHALATION SCH ×3 (12:20→20:56)
[2020-08-02] MEDS: NITROGLYCERIN OINT 1 INCH/GM PACKET TOPICAL SCH ×3 (12:38→21:48)
--- NOTE | 2020-08-02 13:43 | P.CNPUL ---
History of Present Illness Consult date: 08/02/20 Reason for consult: dyspnea History of present illness: 64-year-old male patient who is known to me from previous office visits and hospitalizations. The patient is known to have COPD with an FEV1 of 22% of predicted based on previous spirometry. He is oxygen dependent. He also has multiple medical problems and comorbidities, which she has CHF with impaired ejection fraction of around 30% based on a previous echocardiogram. He has had also previous history of pneumothorax and he has a pacemaker in place. He has chronic hypoxic respiratory failure. He is oxygen dependent at 5 L per minute nasal cannula. He also uses Spiriva and DuoNeb nebulized treatment [id number] regarding his COPD. He is diabetic on Lantus insulin and NovoLog with meals and sliding scale coverage. He came into the hospital because of progressive worsening shortness of breath, exertional dyspnea, he also noted to have significant swelling and erythema and redness in lower extremities bilaterally. Obviously is in CHF knowing that his chest x-ray also showed increased interstitial markings bilaterally. His proBNP level is elevated at 4530 and his current white cell count is at 5.4. COVID 19 testing that was done in the emergency department was negative. The patient takes Lasix the day at home. He has been maintained on long-term and to coagulation for previous history of proximal atrial fibrillation. Currently is on Eliquis 2.5 mg by mouth twice a day. His cardiac for now. His chest x-ray showing COPD and increased interstitial markings. He is afebrile. No altered mentation. No chest pain. Again Review of Systems Constitutional: Reports lethargy, Reports weakness Eyes: denies blurred vision, denies bulging eye, denies decreased vision Ears: deny: decreased hearing, ear discharge, earache, tinnitus Ears, nose, mouth and throat: Denies headache, Denies sore throat Cardiovascular: Reports chest pain, Reports decreased exercise tolerance, Reports dyspnea on exertion, Reports shortness of breath, increased swelling in lower extremities bilaterally Respiratory: Reports cough, Reports dyspnea, Reports wheezing Gastrointestinal: Reports as per HPI Genitourinary: Reports as per HPI Musculoskeletal: Reports as per HPI Musculoskeletal: absent: ankle pain, ankle stiffness, ankle swelling Integumentary: Reports as per HPI Neurological: Reports as per HPI Psychiatric: Reports as per HPI Endocrine: Reports as per HPI Hematologic/Lymphatic: Reports as per HPI Allergic/Immunologic: Reports as per HPI Constitutional: Reports daytime sleepiness, Reports fatigue, Reports lethargy, Reports weakness, Reports weight gain Eyes: denies as per HPI, denies blurred vision, denies bulging eye, denies decreased vision, denies diplopia, denies discharge, denies dry eye, denies irritation, denies itching, denies pain, denies photophobia, denies loss of peripheral vision, denies loss of vision, denies tunnel vision/blind spots Ears: deny: decreased hearing, ear discharge, earache, tinnitus Ears, nose, mouth and throat: Reports as per HPI Breasts: absent: as per HPI, gynecomastia Cardiovascular: Reports decreased exercise tolerance, Reports dyspnea on exertion, Reports irregular heart beat, Reports leg edema, Reports paroxysmal no cturnal dyspnea, Reports shortness of breath Respiratory: Reports cough, Reports dyspnea, Reports snoring, Reports wheezing Gastrointestinal: Reports as per HPI Genitourinary: Reports as per HPI Musculoskeletal: Reports as per HPI, Reports gait dysfunction, Reports limitation of motion, Reports muscle weakness Musculoskeletal: bilateral: ankle stiffness, ankle swelling, absent: ankle pain Integumentary: Reports color changes, Reports darkening of skin, Reports sores (In addition to cellulitis of lower extremities) Neurological: Reports as per HPI, Reports weakness Psychiatric: Reports as per HPI Endocrine: Reports as per HPI, Reports fatigue Hematologic/Lymphatic: Reports as per HPI Allergic/Immunologic: Reports as per HPI Past Medical History Past Medical History: Atrial Fibrillation, Heart Failure, COPD, Diabetes Mellitus, Deep Vein Thrombosis (DVT), GERD/Reflux, Hyperlipidemia, Hypertension, Sleep Apnea/CPAP/BIPAP Additional Past Medical History / Comment(s): See Dr Landeros's H&P, Other HX: Chronic hypoxic respiratory failure and the patient OXYGEN dependent between 3 1/2-4 L prn and at night, previous history of left-sided pneumothorax requiring a Thoravent insertion, IDDM type II, paroxysmal AFIB, alcoholism, diverticulosis, obstuctive sleep apnea but no Cpap since wt loss, sinusitis, neuropathy bilateral feet History of Any Multi-Drug Resistant Organisms: None Reported Past Surgical History: Appendectomy, Cholecystectomy, Heart Catheterization Additional Past Surgical History / Comment(s): colonoscopy x 3, eyelid surgery bilaterally,partial liver removed,lysis of adhesions Past Anesthesia/Blood Transfusion Reactions: Postoperative Nausea & Vomiting (PONV) Additional Past Anesthesia/Blood Transfusion Reaction / Comment(s): Pt states he has had PONV with gas only. Past Psychological History: Anxiety, Depression, Panic Disorder Additional Psychological History / Comment(s): He uses no assistive device. He drives. Past Alcohol Use History: Occasional Additional Past Alcohol Use History / Comment(s): Hx of alcoholism. He has hx of DTs. Past Drug Use History: None Reported Additional Drug Use History / Comment(s): Pt states in the s and he used a variety of drugs (unable to state which ones) but has not used any since. - Past Family History Mother Family Medical History: Thyroid Disorder Additional Family Medical History / Comment(s): . Father Additional Family Medical History / Comment(s): Father of divert iculitis,peritonitis at the age of 35yrs. Medications and Allergies Home Medications Medication Instructions Recorded Confirmed Type Tamsulosin [Flomax] 0.4 mg PO DAILY 06/23/16 08/02/20 History HYDROcodone/APAP 10-325MG [[place] 1 tab PO Q6H PRN 09/06/17 08/02/20 History 10-325] Cyclobenzaprine [Flexeril] 10 mg PO TID PRN 09/30/18 08/02/20 History Ondansetron HCl [Zofran] 4 mg PO BID PRN 09/30/18 08/02/20 History Apixaban [Eliquis] 2.5 mg PO BID 01/11/19 08/02/20 History Furosemide [Lasix] 40 mg PO DAILY 01/11/19 08/02/20 History Pantoprazole [Protonix] 40 mg PO DAILY 01/11/19 08/02/20 History guaiFENesin 400 mg PO BID 01/11/19 08/02/20 History Chlorthalidone [Hygroton] 25 mg PO DAILY 08/02/20 08/02/20 History Insulin Aspart [NovoLOG Flexpen] See Protocol SQ AC-TID 08/02/20 08/02/20 History Insulin Glargine,Hum.rec.anlog 40 unit SQ DAILY 08/02/20 08/02/20 History [Lantus Solostar] Levothyroxine Sodium [Synthroid] 25 mcg PO DAILY 08/02/20 08/02/20 History Metoprolol Succinate [Toprol XL] 25 mg PO DAILY 08/02/20 08/02/20 History Tiotropium 18 Mcg/Puff [Spiriva] 2 puff INHALATION RT-DAILY 08/02/20 08/02/20 History amLODIPine [Norvasc] 2.5 mg PO DAILY 08/02/20 08/02/20 History predniSONE [Deltasone] 20 mg PO DAILY 08/02/20 08/02/20 History Allergies Allergy/AdvReac Type Severity Reaction Status Date / Time No Known Allergies Allergy Verified 08/02/20 11:49 Physical Exam Vitals: Vital Signs Temp Pulse Pulse Resp BP BP Pulse Ox 08/02/20 12:39 98.4 F 122 H 24 99/79 99 08/02/20 12:10 97.5 F L 121 H 22 112/82 97 08/02/20 11:50 121 H 26 H 105/80 100 08/02/20 10:33 97.7 F 124 H 30 H 113/62 99 Intake and Output 08/01/20 08/02/20 08/02/20 22:59 06:59 14:59 Other: Weight 114.305 kg Gen. appearance, comfortable no respiratory distress, currently on 5 L nasal cannula. Head exam was generally normal. There was no scleral icterus or corneal arcus. Mucous membranes were moist. Neck was supple and without jugular venous distension, thyromegaly, or carotid bruits. Carotids were easily palpable bilaterally. There was no adenopathy. Lungs sounds are diminished bilaterally with few scattered expiratory wheezes throughout the lung man. There is adequate and symmetrical air entry bilaterally. Cardiac exam revealed the PMI to be normally situated and sized. The rhythm was regular and no extrasystoles were noted during several minutes of auscultation. The first and second heart sounds were normal and physiologic splitting of the second heart sound was noted. There were no murmurs, rubs, clicks, or gallops. Abdominal exam revealed normal bowel sounds. The abdomen was soft, non-tender, and without masses, organomegaly, or appreciable enlargement of the abdominal aorta. Examination of the extremities revealed easily palpable radial, femoral and pedal pulses. There was no cyanosis, clubbing and the patient has increased swelling in lower extremities bilaterally. Examination of the skin revealed no evidence of significant rashes, suspicious appearing nevi or other concerning lesions. Neurologically is awake and alert and there is no focal neurological deficit. Results - Laboratory Findings CBC and BMP: 08/02/20 10:52 08/02/20 10:52 PT/INR, D-dimer PT 11.3 sec (9.0-12.0) 08/02/20 10:52 INR 1.1 (<1.2) 08/02/20 10:52 Abnormal lab findings: Abnormal Labs 08/02/20 08/02/20 10:52 10:52 RBC 3.20 L Hgb 10.0 L Hct 30.4 L Sodium 135 L Chloride 93 L Carbon Dioxide 36 H BUN 39 H Creatinine 1.71 H Glucose 179 H Total Protein 5.7 L Albumin 3.2 L - Diagnostic Findings Chest x-ray: image reviewed Assessment and Plan Plan: 1 acute CHF exacerbation with progressive increase in lower extremity edema, elevated proBNP level, increased interstitial markings, in addition to lower extremity edema and cellulitis. The patient has systolic heart failure and chronic CHF with an ejection fraction of around 30%. Ears 2 Severe chronic obstructive pulmonary disease - patient has severe COPD and his palmar function test today shows a FEV1 of 22% of predicted, diffusion capacity of 33% of predicted and he has also evidence of hyperinflation and air trapping. This is consistent with COPD. 3 Cellulitis of the lower extremity along with edema and development of superficial grade 1/2 sores in lower extremity is bilaterally 4. Alcoholism, drinking 3-4 beers at nighttime 5. Insulin treated type 2 diabetes mellitus, currently on Lantus insulin 6. Congestive heart failure - CHF with and EF of 30% 7. Hyperlipidemia 8 Hypertension 9 ALMA, currently not utilizing any CPAP 10 previous history of left-sided pneumothorax requiring Thoravent insertion with successful expansion 11 history of pacemaker 12 chronic hypoxic respiratory failure maintained on oxygen at 5 L 13 paroxysmal atrial fibrillation current rhythm is sinus, currently in a first- degree AV block with RBBB pattern. The patient's cardiac rhythm is paced for now and the patient is on long-term and to coagulation with Eliquis 2.5 mg twice a day. 14 history of diverticulosis 15 history of smoking 16 acute kidney injury in the creatinine is at 1.7 Plan Agree on Lasix 40 mg every 8 hours Fluid restriction IV fluids to KVO Start the patient IV Zosyn 3.375 g every 12 hours Applied medihoney to the lower extremities wounds in addition to Silvadene cream and wrap the legs Continue home medication including Eliquis 2.5 mg by mouth twice a day _May need to repeat his echocardiogram and review on the cardiac medications for now Kathia malone last 2 minutes [id number] Maintenance prednisone of 10 mg of the patient has been steroid dependent for quite some time in addition to 5 L about 2 by nasal cannula We'll continue to follow.
[2020-08-02] MEDS: predniSONE 10 MG TAB PO SCH (15:50)
[2020-08-02] MEDS: PIPERACILLIN-TAZOBACTAM 3.375 GM in SODIUM CHLORIDE 0.9% 100 ML IVPB SCH (15:50)
[2020-08-02] MEDS: HYDROcodone/APAP 10-325MG 1 EACH TAB PO PRN ×2 (15:50→22:23)
[2020-08-02] MEDS: FUROSEMIDE 10 MG/ML 4 ML VIAL IV SCH (15:51)
[2020-08-02] MEDS ORDERED: METOPROLOL SUCCINATE (ER) 25 MG TAB.ER.24H PO STA (15:58)
[2020-08-02 16:35] LABS: Glucose,Whole Blood 145 mg/dL (75-99)
[2020-08-02] MEDS: INSULIN ASPART (NovoLOG) 100 UNIT/ML VIAL SQ SCH ×2 (17:01→20:47)
[2020-08-02] MEDS: APIXABAN 2.5 MG TABLET PO SCH (20:15)
[2020-08-02 20:28] LABS: Glucose,Whole Blood 301 mg/dL (75-99)
--- NOTE | 2020-08-02 23:05 | P.HPIM ---
History of Present Illness H&P Date: 08/02/20 Chief Complaint: JANEY Patient is a 64-year-old male with a known history of atrial fibrillation on anticoagulation with Eliquis, chronic CHF, COPD on home oxygen 4 L via nasal cannula, diabetes type 2, history of DVT, hypertension, hyperlipidemia, obstructive sleep apnea not on CPAP at home, anxiety/depression/panic disorder and history of alcohol abuse presents to ER with complaints of difficulty in breathing. Patient has been having worsening symptoms for the past 3 days. Patient does complain of cough with greenish sputum production and chest congestion. Denies any chest pain. No nausea vomiting or abdominal pain. No diarrhea. Denies any recent illnesses. States that he has increased leg swelling. Chest x-ray showed chronic changes without evidence of acute pulmonary disease. Laboratory showed WBC 5.4, hemoglobin 10.0 and platelets 202 Sodium 135 potassium 4.5 chloride 93 BUN 39 creatinine 1.71 Coronavirus not detected proBNP 4530 and troponin 0 0.020 Review of Systems Constitutional: Patient denies any fever or chills . No generalized weakness or weight loss. Abdomen: Patient denied nausea vomiting and diarrhea and abdominal pain. Cardiovascular: Patient denies any chest pain + short of breath no palpitations. +leg swelling Respiratory: Patient does have cough with greenish sputum production and shortness of breath Neurologic: Patient denied any numbness or tingling headache. Musculoskeletal: Patient denies any complaints of joint swelling or deformity. Skin: Negative Psychiatric: Negative Endocrine: No heat or cold intolerance. No recent weight gain. Genitourinary: No dysuria or hematuria. All other 14 point ROS negative except the above Past Medical History Past Medical History: Atrial Fibrillation, Heart Failure, COPD, Diabetes Mellitus, Deep Vein Thrombosis (DVT), GERD/Reflux, Hyperlipidemia, Hypertension, Sleep Apnea/CPAP/BIPAP Additional Past Medical History / Comment(s): See Dr Landeros's H&P, Other HX: Chronic hypoxic respiratory failure and the patient OXYGEN dependent between 3 1/2-4 L prn and at night, previous history of left-sided pneumothorax requiring a Thoravent insertion, IDDM type II, paroxysmal AFIB, alcoholism, diverticulosis, obstuctive sleep apnea but no Cpap since wt loss, sinusitis, neuropathy bilateral feet History of Any Multi-Drug Resistant Organisms: None Reported Past Surgical History: Appendectomy, Cholecystectomy, Heart Catheterization Additional Past Surgical History / Comment(s): colonoscopy x 3, eyelid surgery bilaterally,partial liver removed,lysis of adhesions Past Anesthesia/Blood Transfusion Reactions: Postoperative Nausea & Vomiting (PONV) Additional Past Anesthesia/Blood Transfusion Reaction / Comment(s): Pt states he has had PONV with gas only. Past Psychological History: Anxiety, Depression, Panic Disorder Additional Psychological History / Comment(s): He uses no assistive device. He drives. Past Alcohol Use History: Occasional Additional Past Alcohol Use History / Comment(s): Hx of alcoholism. He has hx of DTs. Past Drug Use History: None Reported Additional Drug Use History / Comment(s): Pt states in the s and s he used a variety of drugs (unable to state which ones) but has not used any since. - Past Family History Mother Family Medical History: Thyroid Disorder Additional Family Medical History / Comment(s): . Father Additional Family Medical History / Comment(s): Father of diverticulitis,peritonitis at the age of 35yrs. Medications and Allergies Home Medications Medication Instructions Recorded Confirmed Type Tamsulosin [Flomax] 0.4 mg PO DAILY 06/23/16 08/02/20 History HYDROcodone/APAP 10-325MG [[place] 1 tab PO Q6H PRN 09/06/17 08/02/20 History 10-325] Cyclobenzaprine [Flexeril] 10 mg PO TID PRN 09/30/18 08/02/20 History Ondansetron HCl [Zofran] 4 mg PO BID PRN 09/30/18 08/02/20 History Apixaban [Eliquis] 2.5 mg PO BID 01/11/19 08/02/20 History Furosemide [Lasix] 40 mg PO DAILY 01/11/19 08/02/20 History Pantoprazole [Protonix] 40 mg PO DAILY 01/11/19 08/02/20 History guaiFENesin 400 mg PO BID 01/11/19 08/02/20 History Chlorthalidone [Hygroton] 25 mg PO DAILY 08/02/20 08/02/20 History Insulin Aspart [NovoLOG Flexpen] See Protocol SQ AC-TID 08/02/20 08/02/20 Histor y Insulin Glargine,Hum.rec.anlog 40 unit SQ DAILY 08/02/20 08/02/20 History [Lantus Solostar] Levothyroxine Sodium [Synthroid] 25 mcg PO DAILY 08/02/20 08/02/20 History Metoprolol Succinate [Toprol XL] 25 mg PO DAILY 08/02/20 08/02/20 History Tiotropium 18 Mcg/Puff [Spiriva] 2 puff INHALATION RT-DAILY 08/02/20 08/02/20 History amLODIPine [Norvasc] 2.5 mg PO DAILY 08/02/20 08/02/20 History predniSONE [Deltasone] 20 mg PO DAILY 08/02/20 08/02/20 History Allergies Allergy/AdvReac Type Severity Reaction Status Date / Time No Known Allergies Allergy Verified 08/02/20 11:49 Physical Exam Vitals: Vital Signs Temp Pulse Pulse Resp BP BP Pulse Ox 08/02/20 16:33 62 08/02/20 16:25 64 08/02/20 16:00 97.9 F 124 H 20 110/76 96 08/02/20 12:39 98.4 F 122 H 24 99/79 99 08/02/20 12:10 97.5 F L 121 H 22 112/82 97 08/02/20 11:50 121 H 26 H 105/80 100 08/02/20 10:33 97.7 F 124 H 30 H 113/62 99 Intake and Output 08/02/20 08/02/20 08/02/20 06:59 14:59 22:59 Intake Total 250 Balance 250 Intake: Oral 250 Other: Voiding Method Urinal Weight 114.305 kg PHYSICAL EXAMINATION: Patient is lying in the bed comfortably, no acute distress, awake alert and oriented.. HEENT: Normocephalic. Neck is supple. Pupils reactive. Nostrils clear. Oral cavity is moist. Ears reveal no drainage. Neck reveals no JVD, carotid bruits, or thyromegaly. CHEST EXAMINATION: Trachea is central. Symmetrical expansion. Bilateral diminished air entry and scattered rhonchi and wheezing. Nonlabored breathing.. CARDIAC: Normal S1, S2 with no gallops. No murmurs ABDOMEN: Soft. Bowel sounds normal. No organomegaly. No abdominal bruits. Extremities: Bilateral lower extremity 2+ edema with redness noted. No drainage.. No clubbing or cyanosis Neurologically awake, alert, oriented x3 with well-coordinated movements. No focal deficits noted Skin: No rash or skin lesions. Psychiatric: Coperative. Nonsuicidal Musculoskeletal: No joint swelling or deformity. Normal range of motion. Results CBC & Chem 7: 08/02/20 10:52 08/02/20 10:52 Labs: Abnormal Lab Results - Last 24 Hours (Table) 08/02/20 08/02/20 08/02/20 Range/Units 10:52 10:52 16:34 RBC 3.20 L (4.30-5.90) m/uL Hgb 10.0 L (13.0-17.5) gm/dL Hct 30.4 L (39.0-53.0) % Sodium 135 L (137-145) mmol/L Chloride 93 L (98-107) mmol/L Carbon Dioxide 36 H (22-30) mmol/L BUN 39 H (9-20) mg/dL Creatinine 1.71 H (0.66-1.25) mg/dL Glucose 179 H (74-99) mg/dL POC Glucose (mg/dL) 145 H (75-99) mg/dL Total Protein 5.7 L (6.3-8.2) g/dL Albumin 3.2 L (3.5-5.0) g/dL Thrombosis Risk Factor Assmnt - DVT/VTE Prophylaxis DVT/VTE Prophylaxis: Pharmacologic Prophylaxis ordered - Choose All That Apply Any of the Below Risk Factors Present?: Yes Each Factor Represents 1 point: Abnormal pulmonary function (COPD), Heart failure (<1month), Obesity (BMI >25), Serious lung disease incl. pneumonia (< 1month) Each Risk Factor Represents 2 Points: Age 61-74 years Thrombosis Risk Factor Assessment Total Risk Factor Score: 6 Thrombosis Risk Factor Assessment Level: High Risk Assessment and Plan Assessment: Difficulty in breathing secondary to acute CHF exacerbation with ejection fraction 35%. Bilateral lower extremity cellulitis with swelling Nonischemic cardiomyopathy history of alcohol abuse and DTs Chronic hypoxic respiratory failure secondary to COPD on 4 L. On prednisone 20 mg daily oxygen via nasal cannula at home. Diabetes type 2 insulin-dependent Hypertension Hyperlipidemia acute on chronic kidney disease stage III with baseline creatinine 1.1. 1.71 on admission Obstructive sleep apnea not on CPAP at home Paroxysmal atrial fibrillation on anticoagulation with Eliquis. Considering ablation as an outpatient. Status post pacemaker placement. Patient history of smoking DVT prophylaxis patient is already on Eliquis Plan: Patient will be continued on Lasix 40 mg every 8 hourly and continue with antibiotics in the form of Zosyn for lower acuity cellulitis Sputum sample will be obtained due to cough with green sputum production Continue with telemetry monitoring. Monitor renal function and follow-up c losely. Continue the home medications and further recommendations based on the clinical course.. Prognosis is guarded. Discussed the patient in detail Counseling for alcohol abstinence. Time with Patient: Greater than 30
[2020-08-03] MEDS: FUROSEMIDE 10 MG/ML 4 ML VIAL IV SCH (00:04)
[2020-08-03] MEDS: PIPERACILLIN-TAZOBACTAM 3.375 GM in SODIUM CHLORIDE 0.9% 100 ML IVPB SCH ×3 (00:04→14:59)
[2020-08-03] MEDS: LEVOTHYROXINE 25 MCG TAB PO SCH (06:28)
[2020-08-03] MEDS: HYDROcodone/APAP 10-325MG 1 EACH TAB PO PRN ×2 (06:28→20:47)
[2020-08-03] MEDS: PANTOPRAZOLE 40 MG TABLET PO SCH (06:34)
[2020-08-03] MEDS ORDERED: INSULIN DETEMIR (LEVEMIR) 100 UNIT/ML SYR SQ SCH (07:00)
[2020-08-03 07:32] LABS: Glucose,Whole Blood 297 mg/dL (75-99)
[2020-08-03] MEDS: IPRATROPIUM-ALBUTEROL 3 ML NEB INHALATION SCH ×4 (08:01→21:44)
[2020-08-03 08:22] LABS: Albumin 3.4 g/dL (3.5-5.0); Calcium 8.7 mg/dL (8.4-10.2); Potassium 4.5 mmol/L (3.5-5.1); Total Bilirubin 0.4 mg/dL (0.2-1.3)
[2020-08-03] MEDS: INSULIN ASPART (NovoLOG) 100 UNIT/ML VIAL SQ SCH ×7 (08:30→21:09)
[2020-08-03] MEDS: ONDANSETRON 4 MG TAB PO PRN (08:32)
[2020-08-03] MEDS: predniSONE 10 MG TAB PO SCH (08:32)
[2020-08-03] MEDS: FUROSEMIDE 10 MG/ML 10 ML VIAL IV SCH ×2 (08:32→14:59)
[2020-08-03] MEDS: METOPROLOL SUCCINATE (ER) 50 MG TAB.ER.24H PO SCH (08:32)
[2020-08-03] MEDS: TAMSULOSIN 0.4 MG CAP.ER.24H PO SCH (08:32)
[2020-08-03] MEDS: ASPIRIN 325 MG TAB PO SCH (08:32)
[2020-08-03] MEDS: APIXABAN 2.5 MG TABLET PO SCH ×2 (08:32→21:08)
[2020-08-03] MEDS ORDERED: amLODIPine 2.5 MG TAB PO SCH (09:00)
[2020-08-03] MEDS ORDERED: METOPROLOL SUCCINATE (ER) 25 MG TAB.ER.24H PO SCH (09:00)
--- NOTE | 2020-08-03 09:59 | ECHOF ---
Referral Reason:chf MEASUREMENTS -------- HEIGHT: 182.9 cm WEIGHT: 111.6 kg BP: 131/84 RVIDd: 3.3 cm (< 3.3) IVSd: 1.1 cm (0.6 - 1.1) LVIDd: 5.2 cm (3.9 - 5.3) LVPWd: 1.6 cm (0.6 - 1.1) IVSs: 1.6 cm LVIDs: 3.9 cm LVPWs: 1.1 cm LA Diam: 4.6 cm (2.7 - 3.8) Ao Diam: 4.1 cm (2.0 - 3.7) AV Cusp: 2.2 cm (1.5 - 2.6) LA Diam: 4.0 cm (2.7 - 3.8) MV EXCURSION: 18.134 mm (> 18.000) MV EF SLOPE: 151 mm/s (70 - 150) EPSS: 1.5 cm RAP: 5.00 mmHg RVSP: 38.30 mmHg FINDINGS -------- Pacerwire seen in RV and RA. This was a techncally difficult study with suboptimal views, , Lumason utilized for enhancement of im ages. The left ventricular size is normal. Overall left ventricular systolic function is moderate-severel y impaired with, an EF between 30 - 35 %. The right ventricle is normal in size. The left atrium is moderately dilated. The aortic valve is trileaflet, and appears structurally normal. No aortic stenosis or regurgitation. Moderate mitral regurgitation is present. Mild tricuspid regurgitation present. There is borderline pulmonary artery hypertension. The righ t ventricular systolic pressure, as measured by Doppler, is 38.30mmHg. The pulmonic valve was not well visualized. The aortic root size is normal. Echo free space represents a pericardial fat pad. CONCLUSIONS -------- 1. Pacerwire seen in RV and RA. 2. This was a techncally difficult study with suboptimal views, , Lumason utilized for enhancement of images. 3. The left ventricular size is normal. 4. Overall left ventricular systolic function is moderate-severely impaired with, an EF between 30 - 35 %. 5. The right ventricle is normal in size. 6. The left atrium is moderately dilated. 7. The aortic valve is trileaflet, and appears structurally normal. No aortic stenosis or regurgitati on. 8. Moderate mitral regurgitation is present. 9. Mild tricuspid regurgitation present. 10. There is borderline pulmonary artery hypertension. 11. The right ventricular systolic pressure, as measured by Doppler, is 38.30mmHg. 12. The pulmonic valve was not well visualized. 13. The aortic root size is normal. 14. Echo free space represents a pericardial fat pad. TABLE MACHINE OPERATOR: Sheila Robles RDCS
--- NOTE | 2020-08-03 10:09 | CONS ---
CONSULTATION CHIEF COMPLAINT: Bilateral leg edema. [place] is a 64-year-old gentleman with history of COPD on home O2, hypertension, dyslipidemia, obstructive sleep apnea, permanent atrial fibrillation, and chronic systolic heart failure, who presented to the hospital with symptoms of worsening leg edema and shortness of breath. He has cough and also has some greenish sputum and does not have any chest pain. He has bilateral leg swelling and pain involving his left lower extremity. His BNP was elevated. Chest x-ray did not reveal any evidence of pulmonary congestion. He is being treated with combination of problems including acute exacerbation of chronic congestive heart failure and cellulitis with some improvement in his symptoms. PAST MEDICAL HISTORY: Significant for atrial fibrillation, heart failure, COPD, diabetes, hypertension, dyslipidemia, sleep apnea, DVT, COPD, respiratory failure, obstructive sleep apnea. PROCEDURES PERFORMED: He had permanent pacemaker, appendectomy, cholecystectomy, prior cardiac catheterization. SOCIAL HISTORY: Significant for EtOH abuse. Denies any drug abuse and denies current smoking. FAMILY HISTORY: Negative for premature coronary artery disease but father had diverticulitis and peritonitis. REVIEW OF SYSTEMS: HEENT is unremarkable. CARDIAC: As described above. RESPIRATORY: As described above. GI: Negative. GENITOURINARY: Negative. ALLERGY/IMMUNOLOGY: Negative. SKIN: Negative. MUSCULOSKELETAL: Significant for cellulitis and swelling and arthritis. PSYCHOSOCIAL: Negative. DERMATOLOGY: Significant for cellulitis. Rest of the system review is not relevant. PHYSICAL EXAMINATION: Heart rate is 95 beats per minute, blood pressure is 130/82, respiratory rate is 18. O2 saturation is 95% on 2 L. There is no jugular venous distention. Chest exam reveals diminished air entry at the bases with bilateral rhonchi. Heart exam reveals first and second heart sounds. Systolic murmur at the apex. Abdomen is soft. Examination of extremities reveals bilateral lower extremity swelling with cellulitis and ulceration. Foot pulses are diminished. EKG on this admission revealed atrial fibrillation, right bundle branch block and nonspecific ST-T wave changes. LABS: Labs showed a hemoglobin of 10, platelet count is 202. Potassium is 4.5. BUN is 46, creatinine is 2.1. Coronavirus is negative. BNP is elevated at 4530. ASSESSMENT: 1. Acute exacerbation of chronic congestive heart failure. 2. Permanent atrial fibrillation. 3. Bilateral lower extremity cellulitis. 4. Chronic obstructive pulmonary disease exacerbation. PLAN: Patient will be treated with IV Lasix. Increase the dose of beta alma for more optimal heart rate control. Stop the amlodipine. Continue the antibiotics. Local wound care. Obtain a 2D echo to document his LV function. Continue the oral anticoagulant. Continue the nebulizers and steroids. FEROZ / KATHYN: [id number] /
[2020-08-03 11:32] LABS: Glucose,Whole Blood 74 mg/dL (75-99)
[2020-08-03 12:03] LABS: Glucose,Whole Blood 57 mg/dL (75-99)
[2020-08-03 12:23] LABS: Glucose,Whole Blood 71 mg/dL (75-99)
[2020-08-03 14:12] VITALS: BMI 33.4
--- NOTE | 2020-08-03 15:16 | P.GSCN ---
History of Present Illness Consult date: 08/03/20 Reason for Consult: Left lower extremity wounds Requesting physician: Selina Burns History of present illness: This is a 64-year-old gentleman who follows at the [facility]. He has a complex previous medical history including atrial fibrillation on Eliquis for anticoagulation, heart failure, type 2 diabetes, COPD on home oxygen, DVT, as well as several other comorbidities. He presented to [facility] emergency room with complaints of shortness of breath 3 days and was admitted for exacerbation of COPD and CHF. He does have bilateral lower extremity edema with wounds present to the left christine which he states has been treated with compression wraps for approximately 3 weeks through the [facility]. Consultation was placed for wound care for treatment recommendations. Review of Systems Review of systems was completed and was negative except as noted - Cardiovascular Reports as per HPI, Reports decreased exercise tolerance, Reports dyspnea on exertion, Reports leg edema, Reports shortness of breath - Integumentary Reports wounds Past Medical History Past Medical History: Atrial Fibrillation, Heart Failure, COPD, Diabetes Mellitus, Deep Vein Thrombosis (DVT), GERD/Reflux, Hyperlipidemia, Hypertension, Sleep Apnea/CPAP/BIPAP Additional Past Medical History / Comment(s): Chronic hypoxic respiratory failure and the patient OXYGEN dependent 5 L, previous history of left-sided pneumothorax requiring a Thoravent insertion, IDDM type II, paroxysmal AFIB, alcoholism, diverticulosis, obstuctive sleep apnea but no Cpap since wt loss, sinusitis, neuropathy bilateral feet History of Any Multi-Drug Resistant Organisms: None Reported Past Surgical History: Appendectomy, Cholecystectomy, Heart Catheterization Additional Past Surgical History / Comment(s): colonoscopy x 3, eyelid surgery bilaterally,partial liver removed,lysis of adhesions Past Anesthesia/Blood Transfusion Reactions: Postoperative Nausea & Vomiting (PONV) Additional Past Anesthesia/Blood Transfusion Reaction / Comm: Pt states he has had PONV with gas only. Past Psychological History: Anxiety, Depression, Panic Disorder Additional Psychological History / Comment(s): He uses no assistive device. He drives. Past Alcohol Use History: Occasional Additional Past Alcohol Use History / Comment(s): Hx of alcoholism. He has hx of DTs. Past Drug Use History: None Reported Additional Drug Use History / Comment(s): Pt states in the 1970's and 1979's he used a variety of drugs (unable to state which ones) but has not used any since. - Past Family History Mother Family Medical History: Thyroid Disorder Additional Family Medical History / Comment(s): . Father Additional Family Medical History / Comment(s): Father of diverticulitis,peritonitis at the age of 35yrs. Medications and Allergies Home Medications Medication Instructions Recorded Confirmed Type Tamsulosin [Flomax] 0.4 mg PO DAILY 06/23/16 08/02/20 History HYDROcodone/APAP 10-325MG [[place] 1 tab PO Q6H PRN 09/06/17 08/02/20 History 10-325] Cyclobenzaprine [Flexeril] 10 mg PO TID PRN 09/30/18 08/02/20 History Ondansetron HCl [Zofran] 4 mg PO BID PRN 09/30/18 08/02/20 History Apixaban [Eliquis] 2.5 mg PO BID 01/11/19 08/02/20 History Furosemide [Lasix] 40 mg PO DAILY 01/11/19 08/02/20 History Pantoprazole [Protonix] 40 mg PO DAILY 01/11/19 08/02/20 History guaiFENesin 400 mg PO BID 01/11/19 08/02/20 History Chlorthalidone [Hygroton] 25 mg PO DAILY 08/02/20 08/02/20 History Insulin Aspart [NovoLOG Flexpen] See Protocol SQ AC-TID 08/02/20 08/02/20 History Insulin Glargine,Hum.rec.anlog 40 unit SQ DAILY 08/02/20 08/02/20 History [Lantus Solostar] Levothyroxine Sodium [Synthroid] 25 mcg PO DAILY 08/02/20 08/02/20 History Metoprolol Succinate [Toprol XL] 25 mg PO DAILY 08/02/20 08/02/20 History Tiotropium 18 Mcg/Puff [Spiriva] 2 puff INHALATION RT-DAILY 08/02/20 08/02/20 History amLODIPine [Norvasc] 2.5 mg PO DAILY 08/02/20 08/02/20 History predniSONE [Deltasone] 20 mg PO DAILY 08/02/20 08/02/20 History Allergies Allergy/AdvReac Type Severity Reaction Status Date / Time No Known Allergies Allergy Verified 08/02/20 11:49 Surgical - Exam Vital Signs Temp Pulse Resp BP Pulse Ox 97.7 F 124 H 30 H 113/62 99 08/02/20 10:33 08/02/20 10:33 08/02/20 10:33 08/02/20 10:33 08/02/20 10:33 CONSTITUTIONAL: Awake and alert, appears comfortable, cooperative, well- developed, well-nourished, no pain, no acute distress EYES: Pupils equal, round, reactive to light, normal ocular movement ENT: Moist mucous membranes without oral lesions present NECK: No masses, no bruits, trachea midline RESPIRATORY: Lungs sounds clear to auscultation bilaterally. Respirations even, nonlabored. Currently on 5 L nasal cannula with oxygen saturation 94%. Strong cough. CARDIOVASCULAR: S1, S2 present. Irregular rate and rhythm, atrial fibrillation on telemetry. Palpable peripheral pulses bilaterally. 3-4+ edema present. No calf pain or tenderness noted. GASTROINTESTINAL: Abdomen soft, nontender, nondistended without masses or organomegaly noted. There is no rebound or guarding present. Active bowel rafeal nds present 4 quadrants. GENITOURINARY: Deferred INTEGUMENTARY: Skin is warm and dry. Bilateral lower extremities reddened but slightly cool, no hair present, stage II wound to present to left christine with serous drainage present, small area of eschar present to plantar surface of the left foot NEUROLOGIC: Cranial nerves II through XII intact MUSKULOSKELETAL: Able to move all extremities, strength equal bilaterally but lower extremities are weak PSYCHIATRIC: Alert and oriented to person place and time, appropriate affect, intact judgment and insight Results - Labs 08/02/20 10:52 08/03/20 06:44 Abnormal Lab Results - Last 24 Hours (Table) 08/02/20 08/02/20 08/02/20 Range/Units 10:52 16:34 20:17 Sodium (137-145) mmol/L Chloride (98-107) mmol/L Carbon Dioxide (22-30) mmol/L BUN (9-20) mg/dL Creatinine (0.66-1.25) mg/dL Glucose (74-99) mg/dL POC Glucose (mg/dL) 145 H 301 H (75-99) mg/dL Total Protein (6.3-8.2) g/dL Albumin (3.5-5.0) g/dL Procalcitonin 0.18 H (0.02-0.09) ng/mL 08/03/20 08/03/20 08/03/20 Range/Units 06:44 07:28 11:29 Sodium 136 L (137-145) mmol/L Chloride 91 L (98-107) mmol/L Carbon Dioxide 40 H (22-30) mmol/L BUN 46 H (9-20) mg/dL Creatinine 2.16 H (0.66-1.25) mg/dL Glucose 305 H (74-99) mg/dL POC Glucose (mg/dL) 297 H 74 L (75-99) mg/dL Total Protein 6.0 L (6.3-8.2) g/dL Albumin 3.4 L (3.5-5.0) g/dL Procalcitonin (0.02-0.09) ng/mL 08/03/20 08/03/20 Range/Units 12:01 12:20 Sodium (137-145) mmol/L Chloride (98-107) mmol/L Carbon Dioxide (22-30) mmol/L BUN (9-20) mg/dL Creatinine (0.66-1.25) mg/dL Glucose (74-99) mg/dL POC Glucose (mg/dL) 57 L 71 L (75-99) mg/dL Total Protein (6.3-8.2) g/dL Albumin (3.5-5.0) g/dL Procalcitonin (0.02-0.09) ng/mL Microbiology - Last 24 Hours (Table) 08/03/20 07:55 Gram Stain - Preliminary Sputum Sputum Culture - Preliminary Diabetes panel 08/03/20 Range/Units 06:44 Sodium 136 L (137-145) mmol/L Potassium 4.5 (3.5-5.1) mmol/L Chloride 91 L (98-107) mmol/L Carbon Dioxide 40 H (22-30) mmol/L BUN 46 H (9-20) mg/dL Creatinine 2.16 H (0.66-1.25) mg/dL Glucose 305 H (74-99) mg/dL Calcium 8.7 (8.4-10.2) mg/dL AST 22 (17-59) U/L ALT 11 (4-49) U/L Alkaline Phosphatase 121 (38-126) U/L Total Protein 6.0 L (6.3-8.2) g/dL Albumin 3.4 L (3.5-5.0) g/dL Calcium panel 08/03/20 Range/Units 06:44 Calcium 8.7 (8.4-10.2) mg/dL Albumin 3.4 L (3.5-5.0) g/dL Pituitary panel 08/03/20 Range/Units 06:44 Sodium 136 L (137-145) mmol/L Potassium 4.5 (3.5-5.1) mmol/L Chloride 91 L (98-107) mmol/L Carbon Dioxide 40 H (22-30) mmol/L BUN 46 H (9-20) mg/dL Creatinine 2.16 H (0.66-1.25) mg/dL Glucose 305 H (74-99) mg/dL Calcium 8.7 (8.4-10.2) mg/dL Adrenal panel 08/03/20 Range/Units 06:44 Sodium 136 L (137-145) mmol/L Potassium 4.5 (3.5-5.1) mmol/L Chloride 91 L (98-107) mmol/L Carbon Dioxide 40 H (22-30) mmol/L BUN 46 H (9-20) mg/dL Creatinine 2.16 H (0.66-1.25) mg/dL Glucose 305 H (74-99) mg/dL Calcium 8.7 (8.4-10.2) mg/dL Total Bilirubin 0.4 (0.2-1.3) mg/dL AST 22 (17-59) U/L ALT 11 (4-49) U/L Alkaline Phosphatase 121 (38-126) U/L Total Protein 6.0 L (6.3-8.2) g/dL Albumin 3.4 L (3.5-5.0) g/dL Assessment and Plan Assessment: 1. Chronic appearing wound to left lower extremity 2. Type 2 diabetes 3. Atrial fibrillation on Eliquis for anticoagulation 4. Heart failure 5. COPD on home oxygen 6. History of DVT 7. Medical debility 8. Obesity Plan: The patient was seen and examined at the bedside with the daughter present. Chart/diagnostics were reviewed. At this time recommend absorptive silver to be applied to left lower extremity wounds, cover with 4 x 4, gentle Dany wraps from the toes to the knees bilaterally, dressing change to be completed daily. Patient should elevate bilateral lower extremity above the level of the heart at all times except when eating or toileting. Patient was counseled on better blood sugar control. He may follow in the wound care clinic upon discharge. Medical management of other comorbidities per primary care service. Thank you for this consult. Please call us with any further questions. Time with Patient: Greater than 30
--- NOTE | 2020-08-03 15:54 | CONS ---
CONSULTATION REASON FOR CONSULTATION: Renal failure. HISTORY OF PRESENT ILLNESS: Patient is a 64-year-old male with history of CKD, NKF stage III, with previous creatinine as low as 1.3 and 1.29 in January of 2019, but about 1.58 in March of 2020. Patient was admitted to the hospital with complaints of shortness of breath, increased lower extremity edema. He denied any chest pains. No fever or chills. He did have some cough. ProBNP was elevated. Coronavirus not detected. Serum creatinine was 1.7 yesterday. Today it is 2.1 and previous creatinine was 1.58 on 03/30/2020. Blood pressure has been low, with systolic 99 to 120 mmHg. Prior to admission, patient was maintained on oral diuretics. I do not see any MARVEL inhibitors, NSAIDs or angiotensin receptor blockers on his home medication list. PAST MEDICAL HISTORY: Type 2 diabetes, hypertension, chronic atrial fibrillation, previous history of DVT, obstructive sleep apnea, anxiety, depression, history of pneumothorax, neuropathy, ETOH abuse, diverticulosis, chronic sinusitis. PAST SURGICAL HISTORY: Appendectomy, cholecystectomy, cardiac catheterization, colonoscopy, lysis of adhesions. SOCIAL HISTORY: Negative for smoking. Patient does have history of EtOH abuse. MEDICATIONS: Medications prior to admission included Flomax, Flexeril, Zofran, Eliquis, Lasix, Protonix, insulin, metoprolol, Synthroid, Norvasc, prednisone. ALLERGIES: NONE. REVIEW OF SYSTEMS: As per HPI. Other systems negative. PHYSICAL EXAMINATION: Patient is comfortable, awake. He is not in any acute distress. Blood pressure was 99/64, heart rate 113 per minute. He is afebrile. EXAMINATION OF THE HEART: S1 and S2. EXAMINATION OF LUNGS: Bilateral breath sounds are heard. Decreased breath sounds at bases. ABDOMEN: Soft, non-tender. Examination of lower extremities shows chronic edema. Both legs are wrapped. PRODUCT RESPONSIBILITY LIAISON exam is grossly intact. LABS: Sodium 136, potassium 4.5, chloride 91, BUN 46, serum creatinine 2.16, albumin 3.4. ASSESSMENT: 1. Acute kidney injury, mostly cardiorenal and associated with some degree of hypotension, hypoperfusion. Continue to diurese patient. Check bladder scan. Rule out urine retention. Check urinalysis and ultrasound of the kidneys as well. 2. Chronic kidney disease, stage 3, with previous creatinine as low as 1.3 in 2018, but 1.58 in March of 2020. Previous UA in 2017 showed no proteinuria. We will repeat another UA this admission. 3. Volume overload, maintained on Lasix, which I will continue. 4. Congestive heart failure, acute on top of chronic, mostly systolic. 5. Cardiomyopathy; ejection fraction 30% to 35%, with moderate mitral regurgitation, borderline pulmonary hypertension. PLAN: Continue with IV Lasix. Avoid hypotension. Repeat labs in a.m. If renal function continues to worsen, will need to decrease the dose of metoprolol further and perhaps add midodrine. Thank you for this consultation. Will continue to follow the patient with you during his hospitalization. MMODL / IJN: [id number] /
[2020-08-03] MEDS ORDERED: CYCLOBENZAPRINE 10 MG TAB PO PRN (16:09)
--- NOTE | 2020-08-03 16:54 | PN ---
PROGRESS NOTE DATE OF SERVICE: 08/03/2020 This 64-year-old gentleman was admitted with shortness of breath secondary to CHF, acute exacerbation. Ejection fraction was found to be 35%. The patient was given diuretics. The creatinine was elevated, indicating acute renal failure. The patient also had bilateral lower extremity wounds, left more than the right, with some oozing. Local treatment with TheraHoney is being practiced at this time. Nephrology is following the patient closely for elevated creatinine. The blood sugars have also been found to be low at 74, 57, 70. The patient had some hypoglycemic symptoms. Past medical history reviewed. REVIEW OF SYSTEMS: CARDIOVASCULAR SYSTEM: No angina, palpitations. RESPIRATORY SYSTEM: As mentioned earlier. GI: As mentioned earlier. : No dysuria or retention. NERVOUS SYSTEM: No numbness, weakness. CURRENT MEDICATIONS: Reviewed. They include [place], DuoNeb, Eliquis, aspirin, Lasix, NovoLog, Levemir, Zestril, Toprol-XL, Protonix, Zosyn, Flomax. PHYSICAL EXAMINATION: Patient is alert, oriented x3. Pulse is 115, regular. Blood pressure 89/50, respiration 20, temperature normal, pulse ox 100% on 5 L. HEENT: Conjunctivae normal. NECK: No jugular venous distention. CARDIOVASCULAR SYSTEM: S1, S2 muffled. RESPIRATORY SYSTEM: Breath sounds diminished at the bases. Scattered rhonchi. No crackles. ABDOMEN: Soft, non-tender. LEGS: Bilateral leg edema and significant ulcerations, stage II, on the right leg present. NERVOUS SYSTEM: No focal deficit. LABS: Sodium 136. WBC 5.2. Hemoglobin is 10. ASSESSMENT: 1. Congestive heart failure, acute exacerbation, with acute on chronic systolic dysfunction, ejection fraction 35%. 2. Acute renal failure, possibly cardiorenal syndrome, with acute on chronic kidney disease. 3. Chronic kidney disease, stage 3 baseline. 4. Hyponatremia. 5. Hypoalbuminemia. 6. Elevated procalcitonin. 7. Anemia; normocytic anemia of chronic disease. 8. Obesity with body mass index of 33.5. 9. Nonischemic cardiomyopathy. 10.Bilateral lower extremity cellulitis, left more than the right, with grade 2 ulcers. 11.History of ETOH abuse and delirium tremens. 12.History of chronic hypoxic respiratory failure secondary to chronic obstructive pulmonary disease, on 4 L nasal cannula. 13.Diabetes mellitus, type 2. 14.Hypertension. 15.Hyperlipidemia. 16.Acute on chronic kidney disease, stage 3, with baseline creatinine 1.1. 17.Hypoglycemia. 18.Obstructive sleep apnea, using CPAP. 19.Paroxysmal atrial fibrillation, on anticoagulation with Eliquis. Considering ablation as an outpatient. 20.History of pacemaker placement. 21.History of smoking. 22.Deep vein thrombosis prophylaxis. 23.Hyponatremia. 24.Anemia; normocytic anemia of chronic disease. RECOMMENDATIONS AND DISCUSSION: In this 64-year-old gentleman who presented with multiple complex medical issues, at this time I recommend continuing current medications, continue symptomatic treatment. Otherwise at this time, would probably cut down a dose of Lasix and monitor creatinine closely. Otherwise, monitor blood sugars closely. Cut down the dose of Lantus slowly and monitor closely. Hypoglycemic reaction may be because of the worsening renal function as well. Otherwise continue the beta blockers and the rest of the medications. Local treatment. Cultures. Antibiotics. Guarded prognosis. Further recommendations to follow. MMODL / IJN: [id number] /
[2020-08-03 17:19] LABS: Glucose,Whole Blood 71 mg/dL (75-99)
--- NOTE | 2020-08-03 17:57 | P.PN ---
Subjective Progress Note Date: 08/03/20 Principal diagnosis: acute hypoxic respiratory failure secondary to acute systolic congestive heart failure and underlying severe COPD. 64-year-old male patient who is known to me from previous office visits and hospitalizations. The patient is known to have COPD with an FEV1 of 22% of predicted based on previous spirometry. He is oxygen dependent. He also has multiple medical problems and comorbidities, which she has CHF with impaired ejection fraction of around 30% based on a previous echocardiogram. He has had also previous history of pneumothorax and he has a pacemaker in place. He has chronic hypoxic respiratory failure. He is oxygen dependent at 5 L per minute nasal cannula. He also uses Spiriva and DuoNeb nebulized treatment [id number] regarding his COPD. He is diabetic on Lantus insulin and NovoLog with meals and sliding scale coverage. He came into the hospital because of progressive worsening shortness of breath, exertional dyspnea, he als o noted to have significant swelling and erythema and redness in lower extremities bilaterally. Obviously is in CHF knowing that his chest x-ray also showed increased interstitial markings bilaterally. His proBNP level is elevated at 4530 and his current white cell count is at 5.4. COVID 19 testing that was done in the emergency department was negative. The patient takes Lasix the day at home. He has been maintained on long-term and to coagulation for previous history of proximal atrial fibrillation. Currently is on Eliquis 2.5 mg by mouth twice a day. His cardiac for now. His chest x-ray showing COPD and increased interstitial markings. He is afebrile. No altered mentation. No chest pain. Patient was reevaluated today on 08/03/2020, patient is on 5 L nasal cannula, his O2 saturations 99%. Patient has a low ejection fraction of 50%, and low FEV1 of 22%, he was seen yesterday by Dr. Reyes on consultation, surprisingly he is doing better than expected considering the severity of his COPD and his presentation of acute systolic congestive heart failure.remains on diuretics, remains on bronchodilators, his BUN today is 46 creatinine is 2.16. His PCR for coronary virus is negative not detected. Objective - Vital Signs Vital signs: Vital Signs Temp 98.2 F 08/03/20 08:00 Pulse 119 H 08/03/20 16:00 Resp 20 08/03/20 16:00 BP 101/54 08/03/20 16:00 Pulse Ox 100 08/03/20 16:00 Intake & Output 08/02/20 08/03/20 08/03/20 18:59 06:59 18:59 Intake Total 250 420 378 Output Total 750 300 Balance 250 -330 78 Weight 114.305 kg 111.9 kg 111.9 kg Intake: IV 20 20 Invasive Line 1 20 20 Oral 250 400 358 Output: Urine 750 300 Other: Voiding Method Urinal Toilet Toilet Urinal Urinal - Exam Gen.: Revealed a 64-year-old white male in no distress, on 5 L nasal cannula. HEENT: Normocephalic. Neck is supple. Pupils reactive. Nostrils clear. Oral cavity is moist. Ears reveal no drainage. Neck reveals no JVD, carotid bruits, or thyromegaly. CHEST EXAMINATION: Trachea is central. Symmetrical expansion. Bilateral diminished air entry and scattered rhonchi and wheezing. Nonlabored breathing.. CARDIAC: Normal S1, S2 with no gallops. No murmurs ABDOMEN: Soft. Bowel sounds normal. No organomegaly. No abdominal bruits. Extremities: Bilateral lower extremity 2+ edema with redness noted. both lower extremities are wrapped with Dany bandage. Apparently the patient has multiple ulcerations in both lower extremities and these are chronic. Neurologically awake, alert, oriented x3 with well-coordinated movements. No focal deficits noted Skin: No rash or skin lesions. Psychiatric: Coperative. Nonsuicidal Musculoskeletal: No joint swelling or deformity. Normal range of motion. - Labs CBC & Chem 7: 08/02/20 10:52 08/03/20 06:44 Labs: Abnormal Lab Results - Last 24 Hours (Table) 08/02/20 08/02/20 08/03/20 Range/Units 10:52 20:17 06:44 Sodium 136 L (137-145) mmol/L Chloride 91 L (98-107) mmol/L Carbon Dioxide 40 H (22-30) mmol/L BUN 46 H (9-20) mg/dL Creatinine 2.16 H (0.66-1.25) mg/dL Glucose 305 H (74-99) mg/dL POC Glucose (mg/dL) 301 H (75-99) mg/dL Total Protein 6.0 L (6.3-8.2) g/dL Albumin 3.4 L (3.5-5.0) g/dL Procalcitonin 0.18 H (0.02-0.09) ng/mL 08/03/20 08/03/20 08/03/20 Range/Units 07:28 11:29 12:01 Sodium (137-145) mmol/L Chloride (98-107) mmol/L Carbon Dioxide (22-30) mmol/L BUN (9-20) mg/dL Creatinine (0.66-1.25) mg/dL Glucose (74-99) mg/dL POC Glucose (mg/dL) 297 H 74 L 57 L (75-99) mg/dL Total Protein (6.3-8.2) g/dL Albumin (3.5-5.0) g/dL Procalcitonin (0.02-0.09) ng/mL 08/03/20 08/03/20 Range/Units 12:20 17:18 Sodium (137-145) mmol/L Chloride (98-107) mmol/L Carbon Dioxide (22-30) mmol/L BUN (9-20) mg/dL Creatinine (0.66-1.25) mg/dL Glucose (74-99) mg/dL POC Glucose (mg/dL) 71 L 71 L (75-99) mg/dL Total Protein (6.3-8.2) g/dL Albumin (3.5-5.0) g/dL Procalcitonin (0.02-0.09) ng/mL Microbiology - Last 24 Hours (Table) 08/03/20 07:55 Gram Stain - Preliminary Sputum Sputum Culture - Preliminary Assessment and Plan Assessment: impression: Acute systolic congestive heart failure Severe COPD/emphysema. History of chronic cellulitis of lower extremities. Acute on chronic hypoxic respiratory failure, patient is on 5 L nasal cannula. Secondary to above. History of obstructive sleep apnea syndrome. Benign essential hypertension. Type 2 diabetes. Paroxysmal atrial fibrillation. Acute kidney injury creatinine is slightly worse compared to admission. Could be secondary to cardiorenal or secondary to diuretics. History of pacemaker implantation. History of left-sided pneumothorax recommendation: Continue diuretics. Continue empiric antibiotics. Continue wound care. Continue to monitorI's and O's. Continue updrafts. continue prednisone. we'll continue to follow Time with Patient: Less than 30
--- NOTE | 2020-08-03 18:26 | US ---
EXAMINATION TYPE: US kidneys/renal and bladder DATE OF EXAM: 08/03/2020 COMPARISON: CLINICAL HISTORY: RF. abnormal labs. patient was on dialysis but not any more. EXAM MEASUREMENTS: Right Kidney: 11.3 x 5.9 x 4.8 cm Left Kidney: 10.6 x 5.0 x 6.2 cm Suboptimal exam due to patient body habitus, bowel gas, and patient breathing Right Kidney: No hydronephrosis or masses seen Left Kidney: No hydronephrosis or masses seen Bladder: not well distended, limited visuaization Bilateral Jets not seen There is no evidence for hydronephrosis at this point in time. No nephrolithiasis is seen. No rose mary s are identified. The urinary bladder is anechoic. Bilateral ureteral jets are seen. IMPRESSION: No sign of renal mass or obstruction. Limited exam. No renal atrophy seen.
[2020-08-03 19:58] LABS: Glucose,Whole Blood 169 mg/dL (75-99)
[2020-08-03] MEDS: guaiFENesin 600 MG TABLET.ER PO SCH (21:08)
[2020-08-04] MEDS: FUROSEMIDE 10 MG/ML 10 ML VIAL IV SCH ×2 (01:32→08:31)
[2020-08-04] MEDS: PIPERACILLIN-TAZOBACTAM 3.375 GM in SODIUM CHLORIDE 0.9% 100 ML IVPB SCH ×3 (01:33→12:16)
[2020-08-04] MEDS: HYDROcodone/APAP 10-325MG 1 EACH TAB PO PRN ×2 (03:13→17:48)
[2020-08-04] MEDS: LEVOTHYROXINE 25 MCG TAB PO SCH (06:41)
[2020-08-04 07:24] LABS: Glucose,Whole Blood 204 mg/dL (75-99)
[2020-08-04] MEDS: IPRATROPIUM-ALBUTEROL 3 ML NEB INHALATION SCH ×5 (07:50→20:53)
[2020-08-04 08:10] LABS: Calcium 8.4 mg/dL (8.4-10.2); Potassium 3.7 mmol/L (3.5-5.1)
[2020-08-04 08:29] LABS: Basophils % (A) 0 %; Eosinophils # (A) 0.1 k/uL (0-0.7); Eosinophils % (A) 2 %; HCT 30.8 % (39.0-53.0); HGB 9.5 gm/dL (13.0-17.5); Hypochromasia Moderate; Lymphocytes # (A) 1.4 k/uL (1.0-4.8); Lymphocytes % (A) 24 %; MCH 30.2 pg (25.0-35.0); MCV 97.7 fL (80.0-100.0); Mean Platelet Volume 9.1; Monocytes # (A) 0.5 k/uL (0-1.0); Monocytes % (A) 8 %; Neutrophils # (A) 3.7 k/uL (1.3-7.7); Neutrophils % (A) 64 %; Platelet Count 213 k/uL (150-450); RBC 3.15 m/uL (4.30-5.90); RDW 13.9 % (11.5-15.5); WBC 5.7 k/uL (3.8-10.6)
[2020-08-04] MEDS: ASPIRIN 325 MG TAB PO SCH (08:31)
[2020-08-04] MEDS: METOPROLOL SUCCINATE (ER) 50 MG TAB.ER.24H PO SCH (08:31)
[2020-08-04] MEDS: PANTOPRAZOLE 40 MG TABLET PO SCH (08:31)
[2020-08-04] MEDS: predniSONE 10 MG TAB PO SCH (08:31)
[2020-08-04] MEDS: APIXABAN 2.5 MG TABLET PO SCH ×3 (08:31→21:22)
[2020-08-04] MEDS: guaiFENesin 600 MG TABLET.ER PO SCH ×2 (08:31→21:06)
[2020-08-04] MEDS: INSULIN ASPART (NovoLOG) 100 UNIT/ML VIAL SQ SCH ×7 (08:33→21:07)
[2020-08-04] MEDS: INSULIN DETEMIR (LEVEMIR) 100 UNIT/ML SYR SQ SCH (08:33)
[2020-08-04] MEDS: TAMSULOSIN 0.4 MG CAP.ER.24H PO SCH (08:35)
[2020-08-04] MEDS ORDERED: ASPIRIN 81 MG PO SCH (09:00)
[2020-08-04 11:39] LABS: Glucose,Whole Blood 86 mg/dL (75-99)
--- NOTE | 2020-08-04 11:51 | P.PN ---
Subjective Patient is seen in follow-up for acute kidney injury on chronic kidney disease. Patient has chronic kidney disease stage III with baseline creatinine in the range of 1.2-1.5. Denies chest pain or shortness of breath. Still quite edematous. Maintained on IV Lasix. Blood pressure 109/70 this morning. Admits to good urine output. Vital signs are stable. General: The patient appeared well nourished and normally developed. HEENT: Head exam is unremarkable. Neck is without jugular venous distension. LUNGS: Breath sounds decreased. HEART: Rate and Rhythm are regular. ABDOMEN: Soft, nontender. EXTREMITITES: 2+ edema. Objective - Vital Signs Vital signs: Vital Signs Temp 98.4 F 08/04/20 08:00 Pulse 80 08/04/20 11:28 Resp 20 08/04/20 08:00 BP 109/70 08/04/20 08:00 Pulse Ox 94 L 08/04/20 08:00 Intake & Output 08/03/20 08/04/20 08/04/20 18:59 06:59 18:59 Intake Total 378 488 716 Output Total 300 225 500 Balance 78 263 216 Weight 111.9 kg 113.2 kg Intake: IV 20 10 Invasive Line 1 20 10 Oral 358 [id number] 716 Output: Urine 300 225 500 Other: Voiding Method Toilet Toilet Urinal Urinal - Labs CBC & Chem 7: 08/04/20 07:10 08/04/20 07:10 Labs: Abnormal Lab Results - Last 24 Hours (Table) 08/03/20 08/03/20 08/03/20 Range/Units 12:01 12:20 17:18 RBC (4.30-5.90) m/uL Hgb (13.0-17.5) gm/dL Hct (39.0-53.0) % Chloride (98-107) mmol/L Carbon Dioxide (22-30) mmol/L BUN (9-20) mg/dL Creatinine (0.66-1.25) mg/dL Glucose (74-99) mg/dL POC Glucose (mg/dL) 57 L 71 L 71 L (75-99) mg/dL 08/03/20 08/04/20 08/04/20 Range/Units 19:56 07:10 07:10 RBC 3.15 L (4.30-5.90) m/uL Hgb 9.5 L (13.0-17.5) gm/dL Hct 30.8 L (39.0-53.0) % Chloride 92 L (98-107) mmol/L Carbon Dioxide 37 H (22-30) mmol/L BUN 52 H (9-20) mg/dL Creatinine 2.39 H (0.66-1.25) mg/dL Glucose 196 H (74-99) mg/dL POC Glucose (mg/dL) 169 H (75-99) mg/dL 08/04/20 Range/Units 07:23 RBC (4.30-5.90) m/uL Hgb (13.0-17.5) gm/dL Hct (39.0-53.0) % Chloride (98-107) mmol/L Carbon Dioxide (22-30) mmol/L BUN (9-20) mg/dL Creatinine (0.66-1.25) mg/dL Glucose (74-99) mg/dL POC Glucose (mg/dL) 204 H (75-99) mg/dL Microbiology - Last 24 Hours (Table) 08/03/20 07:55 Gram Stain - Preliminary Sputum Sputum Culture - Preliminary Assessment and Plan Plan: Assessment: 1. Acute kidney injury mostly prerenal secondary to cardiorenal syndrome. Creatinine 2.39 today. No evidence of hydronephrosis noted on kidney ultrasound. 2. Lower extremity edema maintained on IV Lasix. 3. Acute on chronic systolic CHF with ejection fraction of 30-35% and moderate mitral regurgitation. 4. Chronic kidney disease stage III A. fib Baseline creatinine 1.2-1.5 secondary to nephrosclerosis. 5. Diabetes mellitus. Plan: Maintain IV Lasix. Low-salt diet. Avoid nephrotoxins. Continue to monitor renal function and urine output. Check bladder scan to make sure no urinary retention. Add midodrine 5 mg twice a day. To be held for systolic blood pressure greater than 110.
--- NOTE | 2020-08-04 11:56 | P.PN ---
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 He follows in the office with Dr. Landeros. He is seen and examined sitting up at the bedside in no acute distress. He states at rest his breathing is stable however if he gets up and walks to the bathroom he feels quite short of breath still. Symptoms are somewhat improving. Blood pressure 102/68 heart rate 80 afebrile and maintaining oxygen saturation on nasal cannula. Laboratory data reviewed, WBC 5.7, hemoglobin 9.5, platelets 213, sodium 137, potassium 3.7 and creatinine 2.39. An accurate documentation of urinary output. Currently maintained on Lasix IV 60 mg 3 times a day, Eliquis 2.5 mg twice a day, aspirin 325 mg daily, lisinopril 2.5 mg daily and Toprol 50 mg daily. GENERAL: Well-appearing, well-nourished and in no acute distress. NECK: Supple without JVD or thyromegaly. LUNGS: Soft bibasilar rales, no wheezes or rhonchi. Respiration equal and unlabo red. HEART: Irregular rate and rhythm with systolic ejection murmur at the apex, no rubs or gallops. S1 and S2 heard. EXTREMITIES: Normal range of motion, 2+ bilateral lower extremity edema with MARVEL wraps in place. No clubbing or cyanosis. Peripheral pulses intact. ASSESSMENT Acute on chronic systolic heart failure Lower extremity cellulitis Permanent atrial fibrillation on eliquis Sick sinus syndrome s/p permanent pacemaker implantation Acute on chronic COPD Diabetes mellitus Left bundle branch block Hypertension Acute on chronic kidney disease PLAN Continue IV lasix as previously ordered. Follow renal function and electrolytes in the morning. Document accurate intake and output along with daily weights. Decrease aspirin to 81 mg daily. Further recommendations to follow based on clinical course. Nurse Practitioner note has been reviewed, I agree with a documented findings and plan of care. Patient was seen and examined. Objective - Vital Signs Vital signs: Vital Signs Temp 97.7 F 08/04/20 03:00 Pulse 80 08/04/20 08:03 Resp 20 08/04/20 03:00 BP 102/68 08/04/20 03:00 Pulse Ox 94 L 08/04/20 03:00 Intake & Output 08/03/20 08/04/20 08/04/20 18:59 06:59 18:59 Intake Total 378 488 Output Total 300 225 Balance 78 263 Weight 111.9 kg 113.2 kg Intake: IV 20 10 Invasive Line 1 20 10 Oral 358 478 Output: Urine 300 225 Other: Voiding Method Toilet Toilet Urinal Urinal - Labs CBC & Chem 7: 08/04/20 07:10 08/04/20 07:10 Labs: Abnormal Lab Results - Last 24 Hours (Table) 08/03/20 08/03/20 08/03/20 Range/Units 11:29 12:01 12:20 RBC (4.30-5.90) m/uL Hgb (13.0-17.5) gm/dL Hct (39.0-53.0) % Chloride (98-107) mmol/L Carbon Dioxide (22-30) mmol/L BUN (9-20) mg/dL Creatinine (0.66-1.25) mg/dL Glucose (74-99) mg/dL POC Glucose (mg/dL) 74 L 57 L 71 L (75-99) mg/dL 08/03/20 08/03/20 08/04/20 Range/Units 17:18 19:56 07:10 RBC (4.30-5.90) m/uL Hgb (13.0-17.5) gm/dL Hct (39.0-53.0) % Chloride 92 L (98-107) mmol/L Carbon Dioxide 37 H (22-30) mmol/L BUN 52 H (9-20) mg/dL Creatinine 2.39 H (0.66-1.25) mg/dL Glucose 196 H (74-99) mg/dL POC Glucose (mg/dL) 71 L 169 H (75-99) mg/dL 08/04/20 08/04/20 Range/Units 07:10 07:23 RBC 3.15 L (4.30-5.90) m/uL Hgb 9.5 L (13.0-17.5) gm/dL Hct 30.8 L (39.0-53.0) % Chloride (98-107) mmol/L Carbon Dioxide (22-30) mmol/L BUN (9-20) mg/dL Creatinine (0.66-1.25) mg/dL Glucose (74-99) mg/dL POC Glucose (mg/dL) 204 H (75-99) mg/dL Microbiology - Last 24 Hours (Table) 08/03/20 07:55 Gram Stain - Preliminary Sputum Sputum Culture - Preliminary
[2020-08-04] MEDS: MIDODRINE 5 MG TAB PO SCH ×2 (12:16→17:50)
[2020-08-04 16:27] LABS: Glucose,Whole Blood 267 mg/dL (75-99)
--- NOTE | 2020-08-04 16:27 | PN ---
PROGRESS NOTE DATE OF SERVICE: 08/04/2020 This 64-year-old gentleman admitted with CHF acute exacerbation, has been closely monitored. Patient also has renal failure. Multiple consultants are following the patient closely. An abdominal bladder ultrasound was done which showed no signs of any mass or obstruction. No chest pain. No palpitations. No fever. PHYSICAL EXAMINATION: Alert and oriented x3. Pulse is 57, blood pressure 109/70, respiration 20, temperature 98.4, pulse ox 94% on 4 L. HEENT: Conjunctivae normal. NECK: No jugular venous distention. CARDIOVASCULAR: S1, S2 muffled. RESPIRATORY: Breath sounds diminished at the bases. A few rhonchi, no crackles. ABDOMEN: Soft, nontender. LEGS: Bilateral edema. NERVOUS SYSTEM: No focal deficits. LABS: WBC 5.7, hemoglobin 9.5, creatinine is 2.39. ASSESSMENT: 1. Congestive heart failure acute exacerbation acute on chronic systolic dysfunction, ejection fraction 35%. 2. Acute renal failure, possibly cardiorenal syndrome with acute on chronic kidney disease. 3. Chronic kidney disease stage 3 baseline. 4. Hyponatremia. 5. Hypoalbuminemia. 6. Elevated procalcitonin. 7. Anemia normocytic anemia of chronic disease. 8. Obesity with body mass index of 33.5. 9. Nonischemic cardiomyopathy. 10.Bilateral lower extremity cellulitis, left more than the right with grade 2 ulcers. 11.History of EtOH abuse and delirium tremens. 12.History of chronic hypoxic respiratory failure secondary to chronic obstructive pulmonary disease on home oxygen 4 L nasal cannula. 13.Diabetes mellitus type 2. 14.Hypertension. 15.Hyperlipidemia. 16.Acute on chronic kidney disease stage 3, with baseline creatinine 1.1. 17.Hypoglycemia. 18.Possible sleep apnea on CPAP. 19.Paroxysmal atrial fibrillation, anticoagulated with Eliquis considering ablation as an outpatient. 20.History of pacemaker placement. 21.History of smoking. 22.Deep vein thrombosis prophylaxis. RECOMMENDATIONS AND DISCUSSION: This 64-year-old gentleman who presented with multiple complex medical issues, at this time I recommend to continue current medications and continue symptomatic treatment. Otherwise at this time I would monitor creatinine closely. We will reduce the dose of Lasix and further recommendations to follow. MMODL / IJN: [id number] /
--- NOTE | 2020-08-04 18:56 | P.PN ---
Subjective Progress Note Date: 08/04/20 Principal diagnosis: Acute hypoxic respiratory failure secondary to acute exacerbation of systolic congestive heart failure, underlying severe COPD 64-year-old male patient who is known to me from previous office visits and hospitalizations. The patient is known to have COPD with an FEV1 of 22% of predicted based on previous spirometry. He is oxygen dependent. He also has multiple medical problems and comorbidities, which she has CHF with impaired ejection fraction of around 30% based on a previous echocardiogram. He has had also previous history of pneumothorax and he has a pacemaker in place. He has chronic hypoxic respiratory failure. He is oxygen dependent at 5 L per minute nasal cannula. He also uses Spiriva and DuoNeb nebulized treatment [id number] regarding his COPD. He is diabetic on Lantus insulin and NovoLog with meals and sliding scale coverage. He came into the hospital because of progressive worsening shortness of breath, exertional dyspnea, he also noted to have significant swelling and erythema and redness in lower extremities bilaterally. Obviously is in CHF knowing that his chest x-ray also showed increased interstitial markings bilaterally. His proBNP level is elevated at 4530 and his current white cell count is at 5.4. COVID 19 testing that was done in the emergency department was negative. The patient takes Lasix the day at home. He has been maintained on long-term and to coagulation for previous history of proximal atrial fibrillation. Currently is on Eliquis 2.5 mg by mouth twice a day. His cardiac for now. His chest x-ray showing COPD and increased interstitial markings. He is afebrile. No altered mentation. No chest pain. Patient was reevaluated today on 08/03/2020, patient is on 5 L nasal cannula, his O2 saturations 99%. Patient has a low ejection fraction of 50%, and low FEV1 of 22%, he was seen yesterday by Dr. Reyes on consultation, surprisingly he is doing better than expected considering the severity of his COPD and his presentation of acute systolic congestive heart failure.remains on diuretics, remains on bronchodilators, his BUN today is 46 creatinine is 2.16. His PCR for coronary virus is negative not detected. The patient is seen today 08/04/2020 in follow-up on the selective care unit. He is resting comfortably in bed. Awake and alert in no acute distress. White count 5.7. Hemoglobin 9.5. Sodium 137. Potassium 3.6. Creatinine 2.39. Glucose 196. Sputum culture pending. Continue good O2 saturations in the 90s on 4 L/m per nasal cannula. Anticoagulated with Eliquis. Remains on Lasix 40 mg IV every 12 hours. Remains on bronchodilators. Antibiotics in the form of Zosyn. Objective - Vital Signs Vital signs: Vital Signs Temp 98.4 F 08/04/20 08:00 Pulse 57 L 08/04/20 16:09 Resp 20 08/04/20 16:00 BP 98/67 08/04/20 16:00 Pulse Ox 94 L 08/04/20 16:00 Intake & Output 08/03/20 08/04/20 08/04/20 18:59 06:59 18:59 Intake Total 378 488 716 Output Total 300 225 500 Balance 78 263 216 Weight 111.9 kg 113.2 kg Intake: IV 20 10 Invasive Line 1 20 10 Oral 358 [id number] 716 Output: Urine 300 225 500 Other: Voiding Method Toilet Toilet Urinal Urinal - Exam Gen.: Revealed a 64-year-old male patient in no distress, on 4 L nasal cannula. HEENT: Normocephalic. Neck is supple. Pupils reactive. Nostrils clear. Oral cavity is moist. Ears reveal no drainage. Neck reveals no JVD, carotid bruits, or thyromegaly. CHEST EXAMINATION: Trachea is central. Symmetrical expansion. Bilateral diminished air entry and scattered rhonchi and wheezing. Nonlabored breathing.. CARDIAC: Normal S1, S2 with no gallops. No murmurs ABDOMEN: Soft. Bowel sounds normal. No organomegaly. No abdominal bruits. Extremities: Bilateral lower extremity 2+ edema with redness noted. both lower extremities are wrapped with Dany bandage. Apparently the patient has multiple ulcerations in both lower extremities and these are chronic. Neurologically awake, alert, oriented x3 with well-coordinated movements. No focal deficits noted Skin: No rash or skin lesions. Psychiatric: Coperative. Nonsuicidal Musculoskeletal: No joint swelling or deformity. Normal range of motion. - Labs CBC & Chem 7: 08/04/20 07:10 08/04/20 07:10 Labs: Abnormal Lab Results - Last 24 Hours (Table) 03/29/21 03/30/21 03/30/21 Range/Units 19:56 07:10 07:10 RBC 3.15 L (4.30-5.90) m/uL Hgb 9.5 L (13.0-17.5) gm/dL Hct 30.8 L (39.0-53.0) % Chloride 92 L (98-107) mmol/L Carbon Dioxide 37 H (22-30) mmol/L BUN 52 H (9-20) mg/dL Creatinine 2.39 H (0.66-1.25) mg/dL Glucose 196 H (74-99) mg/dL POC Glucose (mg/dL) 169 H (75-99) mg/dL 08/04/20 08/04/20 Range/Units 07:23 16:26 RBC (4.30-5.90) m/uL Hgb (13.0-17.5) gm/dL Hct (39.0-53.0) % Chloride (98-107) mmol/L Carbon Dioxide (22-30) mmol/L BUN (9-20) mg/dL Creatinine (0.66-1.25) mg/dL Glucose (74-99) mg/dL POC Glucose (mg/dL) 204 H 267 H (75-99) mg/dL Assessment and Plan Assessment: 1 Acute systolic congestive heart failure 2 Severe COPD/emphysema. 3 History of chronic cellulitis of lower extremities. 4 Acute on chronic hypoxic respiratory failure, patient is on 5 L nasal cannula. Secondary to above. 5 History of obstructive sleep apnea syndrome. 6 Benign essential hypertension. 7 Type 2 diabetes. 8 Paroxysmal atrial fibrillation. 9 Acute kidney injury creatinine is slightly worse compared to admission. Could be secondary to cardiorenal or secondary to diuretics. 10 History of pacemaker implantation. 11 History of left-sided pneumothorax Plan: The patient was seen and evaluated by Dr. Goel Currently stable from the pulmonary standpoint Continue the current treatment plan Titrate down the FiO2 as tolerated We will continue to follow I, the cosigning physician, performed a history & physical examination of the patient. Lungs sounds bilateral posterior bases. Maintaining good O2 saturations in the 90s on 4 liters per minute per nasal cannula. I discussed the assessment and plan of care with my nurse practitioner, Ella Hair. I attest to the above note as dictated by her.
[2020-08-04 20:25] LABS: Glucose,Whole Blood 353 mg/dL (75-99)
[2020-08-04] MEDS: FUROSEMIDE 10 MG/ML 4 ML VIAL IV SCH (21:06)
[2020-08-05] MEDS: HYDROcodone/APAP 10-325MG 1 EACH TAB PO PRN ×4 (00:17→20:47)
[2020-08-05] MEDS: PIPERACILLIN-TAZOBACTAM 3.375 GM in SODIUM CHLORIDE 0.9% 100 ML IVPB SCH ×4 (00:18→23:06)
[2020-08-05] MEDS: LEVOTHYROXINE 25 MCG TAB PO SCH (07:03)
[2020-08-05 07:32] LABS: Glucose,Whole Blood 137 mg/dL (75-99)
[2020-08-05 07:43] LABS: Basophils % (A) 0 %; Eosinophils # (A) 0.2 k/uL (0-0.7); Eosinophils % (A) 3 %; HCT 30.6 % (39.0-53.0); HGB 9.3 gm/dL (13.0-17.5); Hypochromasia Marked; Lymphocytes # (A) 1.5 k/uL (1.0-4.8); Lymphocytes % (A) 25 %; MCH 29.9 pg (25.0-35.0); MCHC 30.4 g/dL (31.0-37.0); MCV 98.4 fL (80.0-100.0); Mean Platelet Volume 8.1; Monocytes # (A) 0.5 k/uL (0-1.0); Monocytes % (A) 9 %; Neutrophils # (A) 3.6 k/uL (1.3-7.7); Neutrophils % (A) 61 %; Platelet Count 237 k/uL (150-450); RBC 3.11 m/uL (4.30-5.90); RDW 13.9 % (11.5-15.5); WBC 5.8 k/uL (3.8-10.6)
[2020-08-05 07:49] LABS: Calcium 8.4 mg/dL (8.4-10.2); Potassium 4.1 mmol/L (3.5-5.1)
[2020-08-05] MEDS: INSULIN ASPART (NovoLOG) 100 UNIT/ML VIAL SQ SCH ×7 (08:27→20:45)
[2020-08-05] MEDS: INSULIN DETEMIR (LEVEMIR) 100 UNIT/ML SYR SQ SCH (08:27)
[2020-08-05] MEDS: TAMSULOSIN 0.4 MG CAP.ER.24H PO SCH (08:28)
[2020-08-05] MEDS: METOPROLOL SUCCINATE (ER) 50 MG TAB.ER.24H PO SCH (08:28)
[2020-08-05] MEDS: guaiFENesin 600 MG TABLET.ER PO SCH ×2 (08:28→20:45)
[2020-08-05] MEDS: FUROSEMIDE 10 MG/ML 4 ML VIAL IV SCH (08:28)
[2020-08-05] MEDS: ASPIRIN 81 MG PO SCH (08:28)
[2020-08-05] MEDS: APIXABAN 2.5 MG TABLET PO SCH ×2 (08:28→20:45)
[2020-08-05] MEDS: predniSONE 10 MG TAB PO SCH (08:30)
[2020-08-05] MEDS: IPRATROPIUM-ALBUTEROL 3 ML NEB INHALATION SCH ×4 (08:38→19:23)
--- NOTE | 2020-08-05 11:05 | P.PN ---
Subjective Patient is seen in follow-up for acute kidney injury on chronic kidney disease. Patient has chronic kidney disease stage III with baseline creatinine in the range of 1.2-1.5. Denies chest pain or shortness of breath. Still quite edematous. Maintained on IV Lasix. Urine output documented is 1.6 L in the last 24 hours. Vital signs are stable. General: The patient appeared well nourished and normally developed. HEENT: Head exam is unremarkable. Neck is without jugular venous distension. LUNGS: Breath sounds decreased. HEART: Rate and Rhythm are regular. ABDOMEN: Soft, nontender. EXTREMITITES: 2+ edema. Objective - Vital Signs Vital signs: Vital Signs Temp 97.8 F 08/05/20 04:20 Pulse 116 H 08/05/20 08:49 Resp 20 08/05/20 04:20 BP 95/62 08/05/20 04:20 Pulse Ox 98 08/05/20 04:20 Intake & Output 08/04/20 08/05/20 08/05/20 18:59 06:59 18:59 Intake Total 716 211 240 Output Total 500 1150 Balance 216 -939 240 Weight 115 kg Intake: Oral 716 211 240 Output: Urine 500 1150 Other: Voiding Method Toilet Urinal - Labs CBC & Chem 7: 08/05/20 06:29 08/05/20 06:29 Labs: Abnormal Lab Results - Last 24 Hours (Table) 08/04/20 08/04/20 08/05/20 Range/Units 16:26 20:23 06:29 RBC (4.30-5.90) m/uL Hgb (13.0-17.5) gm/dL Hct (39.0-53.0) % MCHC (31.0-37.0) g/dL Sodium 136 L (137-145) mmol/L Chloride 93 L (98-107) mmol/L Carbon Dioxide 37 H (22-30) mmol/L BUN 60 H (9-20) mg/dL Creatinine 2.56 H (0.66-1.25) mg/dL Glucose 123 H (74-99) mg/dL POC Glucose (mg/dL) 267 H 353 H (75-99) mg/dL 08/05/20 08/05/20 Range/Units 06:29 07:30 RBC 3.11 L (4.30-5.90) m/uL Hgb 9.3 L (13.0-17.5) gm/dL Hct 30.6 L (39.0-53.0) % MCHC 30.4 L (31.0-37.0) g/dL Sodium (137-145) mmol/L Chloride (98-107) mmol/L Carbon Dioxide (22-30) mmol/L BUN (9-20) mg/dL Creatinine (0.66-1.25) mg/dL Glucose (74-99) mg/dL POC Glucose (mg/dL) 137 H (75-99) mg/dL Microbiology - Last 24 Hours (Table) 08/03/20 07:55 Gram Stain - Final Sputum Sputum Culture - Final Pseudomonas aeruginosa Assessment and Plan Plan: Assessment: 1. Acute kidney injury mostly prerenal secondary to cardiorenal syndrome. Creatinine 2.56 today. No evidence of hydronephrosis noted on kidney ultrasound. 2. Lower extremity edema maintained on IV Lasix. 3. Acute on chronic systolic CHF with ejection fraction of 30-35% and moderate mitral regurgitation. 4. Chronic kidney disease stage III A. fib Baseline creatinine 1.2-1.5 secondary to nephrosclerosis. 5. Diabetes mellitus. Plan: Stop IV Lasix. Start Lasix drip at 5 mL an hour. Add metolazone 5 mg once daily. Low-salt diet. Avoid nephrotoxins. Continue to monitor renal function and urine output. Increase midodrine 5 mg 3 times daily. To be held for systolic blood pressure greater than 110.
[2020-08-05 12:04] LABS: Glucose,Whole Blood 291 mg/dL (75-99)
[2020-08-05] MEDS: PANTOPRAZOLE 40 MG TABLET PO SCH (12:09)
[2020-08-05] MEDS: FUROSEMIDE 100 MG in SODIUM CHLORIDE 0.9% 90 ML IV SCH (12:10)
[2020-08-05] MEDS: metOLazone 5 MG TAB PO SCH (12:10)
[2020-08-05] MEDS: MIDODRINE 5 MG TAB PO SCH ×2 (12:12→17:26)
--- NOTE | 2020-08-05 13:01 | P.PN ---
Subjective This is a pleasant 64-year-old male past medical history significant for COPD on home oxygen, sick sinus syndrome s/p permanent pacemaker implantation (Medtronic), permanent atrial fibrillation on exterminator helper termite anti- coagulation and chronic systolic heart failure. He follows in the office with Dr. Landeros. He is seen and examined sitting up at the bedside in no acute distress. He states at rest his breathing is stable however if he gets up and walks to the bathroom he feels quite short of breath still. Symptoms are somewhat improving. Blood pressure 102/68 heart rate 80 afebrile and maintaining oxygen saturation on nasal cannula. Laboratory data reviewed, WBC 5.7, hemoglobin 9.5, platelets 213, sodium 137, potassium 3.7 and creatinine 2.39. An accurate documentation of urinary output. Currently maintained on Lasix IV 60 mg 3 times a day, Eliquis 2.5 mg twice a day, aspirin 325 mg daily, lisinopril 2.5 mg daily and Toprol 50 mg daily. 08/05/2020 Pt seen and examined sitting up in bed in no acute distress. He denies chest pain. He feels ongoing shortness of breath with activity that seems to be mildly decreased from yesterday, but really not much. Blood pressure 95/62 heart rate 116. Telemetry tracings reviewed. Primary care team decreased his daily lasix intake to 40 mg IV BID. Laboratory data reviewed, WBC 5.8, hemoglobin 9.3, platelets 237, sodium 136, potassium 4.1, creatinine 2.56. GENERAL: Well-appearing, well-nourished and in no acute distress. NECK: Supple without JVD or thyromegaly. LUNGS: Soft bibasilar rales, no wheezes or rhonchi. Respiration equal and unlabored. HEART: Irregular rate and rhythm with systolic ejection murmur at the apex, no rubs or gallops. S1 and S2 heard. EXTREMITIES: Normal range of motion, 2+ bilateral lower extremity edema with MARVEL wraps in place. No clubbing or cyanosis. Peripheral pulses intact. ASSESSMENT Acute on chronic systolic heart failure Lower extremity cellulitis Permanent atrial fibrillation on eliquis Sick sinus syndrome s/p permanent pacemaker implantation Acute on chronic COPD Diabetes mellitus Left bundle branch block Hypertension Acute on chronic kidney disease PLAN Consider increasing lasix, will await nephrology opinion. Strict accurate intake and output imperative to be able to determine his fluid balance. Follow renal function and electrolytes in the morning. Nurse Practitioner note has been reviewed, I agree with a documented findings and plan of care. Patient was seen and examined. Objective - Vital Signs Vital signs: Vital Signs Temp 97.8 F 08/05/20 04:20 Pulse 116 H 08/05/20 08:49 Resp 20 08/05/20 04:20 BP 95/62 08/05/20 04:20 Pulse Ox 98 08/05/20 04:20 Intake & Output 08/04/20 08/05/20 08/05/20 18:59 06:59 18:59 Intake Total 716 211 240 Output Total 500 1150 Balance 216 -939 240 Weight 115 kg Intake: Oral 716 211 240 Output: Urine 500 1150 Other: Voiding Method Toilet Urinal - Labs CBC & Chem 7: 08/05/20 06:29 08/05/20 06:29 Labs: Abnormal Lab Results - Last 24 Hours (Table) 08/04/20 08/04/20 08/05/20 Range/Units 16:26 20:23 06:29 RBC (4.30-5.90) m/uL Hgb (13.0-17.5) gm/dL Hct (39.0-53.0) % MCHC (31.0-37.0) g/dL Sodium 136 L (137-145) mmol/L Chloride 93 L (98-107) mmol/L Carbon Dioxide 37 H (22-30) mmol/L BUN 60 H (9-20) mg/dL Creatinine 2.56 H (0.66-1.25) mg/dL Glucose 123 H (74-99) mg/dL POC Glucose (mg/dL) 267 H 353 H (75-99) mg/dL 08/05/20 08/05/20 08/05/20 Range/Units 06:29 07:30 12:03 RBC 3.11 L (4.30-5.90) m/uL Hgb 9.3 L (13.0-17.5) gm/dL Hct 30.6 L (39.0-53.0) % MCHC 30.4 L (31.0-37.0) g/dL Sodium (137-145) mmol/L Chloride (98-107) mmol/L Carbon Dioxide (22-30) mmol/L BUN (9-20) mg/dL Creatinine (0.66-1.25) mg/dL Glucose (74-99) mg/dL POC Glucose (mg/dL) 137 H 291 H (75-99) mg/dL Microbiology - Last 24 Hours (Table) 08/03/20 07:55 Gram Stain - Final Sputum Sputum Culture - Final Pseudomonas aeruginosa
--- NOTE | 2020-08-05 13:18 | CDI ---
Documentation Clarification Form Date: 08/05/2020 01:03:59 PM From: Parvin Brizuela CCS, CCDS Admit Date: 08/02/2020 11:57:00 AM Patient Name: Denver Heck Visit Number: [id number] Discharge Date: ATTENTION: The Clinical Documentation Specialists (CDI) and [facility] Coding Staff appreciate your assistance in clarifying documentation. Please respond to the clarification below the line at the bottom and electronically sign. The CDI & [facility] Coding staff will review the response and follow-up if needed. Please note: Queries are made part of the Legal Health Record. If you have any questions, please contact the author of this message via ITS. Dr. Vel Wilburn: The patient presented with difficulty breathing with worsening symptoms for the past 3 days with cough & greenish sputum production & chest congestion. Also admitted with Bilateral Lower Extremity swelling and Cellulitis, patient has IDDM II. Per the 08/04 Attending Progress Note: Bilateral lower extremity cellulitis, left more than the right with grade 2 ulcers. Diabetes Mellitus type 2. History/Risk Factors: IDDM II, Chronic Hypoxic Respiratory Failure, COPD, O2 dependent, Hypertension, Hyperlipidemia, CKD III, ALMA, Paroxysmal Atrial Fibrillation with Pacemaker and Former Smoker. Clinical Indicators: Presented to the ED via EMS with SOB. Admit with CHF Exacerbation, COPD and Bilateral lower extremity Cellulitis with swelling. 08/02 VS: T 97.7, P 124, R 30, BP 113/62, PO 99 10% nrb. BMI: 34.4 08/02 LAB: Hgb 10.0, Na 135, Cl 93, CO2 36, BUN 39, Cr 1.71, Gluc 179, Total Protein 5.7, Albumin 3.2, Procalcitonin 0.18. Treatment 08/02: INH Duoneb, IV Zosyn, IV Lasix, Insulin 40 unit sq Daily. In your professional opinion, can you please clarify the following: [ ] Cellulitis related to Diabetes Mellitus [ ] Cellulitis not related to Diabetes Mellitus [ ] Other, please specify [ ] Unable to determine (Last Revision: August 2017) Cellulitis related to Diabetes Mellitus MTDD
[2020-08-05 16:57] LABS: Glucose,Whole Blood 252 mg/dL (75-99)
--- NOTE | 2020-08-05 19:40 | XR ---
EXAMINATION TYPE: XR chest 1V portable DATE OF EXAM: 08/05/2020 COMPARISON: 08/02/2020 HISTORY: Short of breath. Pneumonia. TECHNIQUE: FINDINGS: Heart is enlarged. There is slight increased pulmonary interstitial density. There is left axillary pacemaker. There is slight blunting of the costophrenic angles. IMPRESSION: There is mild pulmonary interstitial edema which is new compared to old exam and could be mild acute heart failure. Small pleural effusions.
[2020-08-05 20:28] LABS: Glucose,Whole Blood 317 mg/dL (75-99)
--- NOTE | 2020-08-05 20:58 | PN ---
PROGRESS NOTE DATE IS SERVICE: 08/05/2020. This 64-year-old gentleman who was admitted with congestive heart failure acute exacerbation is being closely monitored. Patient also had renal failure also. Multiple consultants are following the patient. No chest pain. No palpitations. No fever. PHYSICAL EXAMINATION: Alert and oriented times three. Pulse 122, blood pressure 90/61, respiration 20. Temp is normal. Pulse ox 94% on 4 L. HEENT: Conjunctivae normal. NECK: No JVD. CARDIOVASCULAR: S1, S2 muffled. RESPIRATION: Breath sounds diminished in the bases. A few scattered rhonchi. ABDOMEN: Soft. NERVOUS SYSTEM: No focal deficits. LABS: Creatinine is 2.56. ASSESSMENT: 1. Congestive heart failure acute exacerbation with acute on chronic systolic dysfunction, ejection fraction 35%. 2. Acute renal failure possibly cardiorenal syndrome with acute on chronic kidney disease. 3. Possible Pseudomonas pneumonia. 4. Chronic kidney disease, stage 3 baseline. 5. Hyponatremia. 6. Hypoalbuminemia. 7. Elevated procalcitonin. 8. Anemia, normocytic anemia of chronic disease. 9. Obesity with body mass index 33.5. 10.Nonischemic cardiomyopathy history. 11.Bilateral lower extremity cellulitis, left more than the right with grade 2 ulcers. 12.History of ETOH abuse and delirium tremens. 13.History of chronic hypoxic respiratory failure secondary to chronic obstructive pulmonary disease on home oxygen 4 L nasal cannula. 14.Diabetes mellitus type 2. 15.Hypertension. 16.Hyperlipidemia. 17.Acute on chronic kidney disease stage 3 baseline creatinine 1.1. 18.Hypoglycemia. 19.Possible sleep apnea on CPAP. 20.Paroxysmal atrial fibrillation, anticoagulated with Eliquis considering ablation as an outpatient. 21.History of pacemaker placement. 22.History of smoking. 23.Deep vein thrombosis prophylaxis. RECOMMENDATIONS AND DISCUSSION: Recommend to continue current medications, management and symptomatic treatment. Otherwise, at this time, repeat labs. Stop the diuretics. We will continue to monitor. Empiric antibiotics. Guarded prognosis. Further recommendations to follow. The patient is on IV Zosyn. Cultures are showing Pseudomonas aeruginosa. MMODL / IJN: [id number] /
[2020-08-06] MEDS: HYDROcodone/APAP 10-325MG 1 EACH TAB PO PRN ×3 (02:38→22:02)
[2020-08-06 06:14] LABS: Glucose,Whole Blood 158 mg/dL (75-99)
[2020-08-06] MEDS: INSULIN ASPART (NovoLOG) 100 UNIT/ML VIAL SQ SCH ×7 (06:14→21:22)
[2020-08-06] MEDS: PANTOPRAZOLE 40 MG TABLET PO SCH (06:41)
[2020-08-06] MEDS: INSULIN DETEMIR (LEVEMIR) 100 UNIT/ML SYR SQ SCH (06:41)
[2020-08-06] MEDS: LEVOTHYROXINE 25 MCG TAB PO SCH (06:41)
[2020-08-06] MEDS: MIDODRINE 5 MG TAB PO SCH ×4 (06:41→20:36)
[2020-08-06] MEDS: IPRATROPIUM-ALBUTEROL 3 ML NEB INHALATION SCH ×4 (07:15→20:30)
[2020-08-06] MEDS: PIPERACILLIN-TAZOBACTAM 3.375 GM in SODIUM CHLORIDE 0.9% 100 ML IVPB SCH ×3 (09:31→23:30)
[2020-08-06] MEDS: TAMSULOSIN 0.4 MG CAP.ER.24H PO SCH (09:32)
[2020-08-06] MEDS: APIXABAN 2.5 MG TABLET PO SCH ×2 (09:32→20:23)
[2020-08-06] MEDS: guaiFENesin 600 MG TABLET.ER PO SCH ×2 (09:32→20:23)
[2020-08-06] MEDS: predniSONE 10 MG TAB PO SCH (09:32)
[2020-08-06] MEDS: ASPIRIN 81 MG PO SCH (09:32)
[2020-08-06] MEDS: METOPROLOL SUCCINATE (ER) 50 MG TAB.ER.24H PO SCH (09:32)
[2020-08-06] MEDS: FUROSEMIDE 100 MG in SODIUM CHLORIDE 0.9% 90 ML IV SCH ×2 (09:33→21:23)
--- NOTE | 2020-08-06 11:14 | P.PN ---
Subjective Patient is seen in follow-up for acute kidney injury on chronic kidney disease. Patient has chronic kidney disease stage III with baseline creatinine in the range of 1.2-1.5. Denies chest pain or shortness of breath. Still quite edematous. Maintained on Lasix drip. Urine output over 1 L last night. Vital signs are stable. General: The patient appeared well nourished and normally developed. HEENT: Head exam is unremarkable. Neck is without jugular venous distension. LUNGS: Breath sounds decreased. HEART: Rate and Rhythm are regular. ABDOMEN: Soft, nontender. EXTREMITITES: 2+ edema. Objective - Vital Signs Vital signs: Vital Signs Temp 98.3 F 08/06/20 03:24 Pulse 108 H 08/06/20 11:07 Resp 20 08/06/20 03:24 BP 104/62 08/06/20 03:24 Pulse Ox 94 L 08/06/20 03:24 Intake & Output 08/05/20 08/06/20 08/06/20 18:59 06:59 18:59 Intake Total 480 1150 340 Output Total 850 Balance 480 300 340 Weight 115.8 kg Intake: Intake, IV Titration 130 100 Amount Furosemide 100 mg In 30 100 Sodium Chloride 0.9% 90 ml @ 5 MG/HR 5 mls/hr IV .Q20H [facility] Rx#:[id number] Piperacillin-Tazobactam 3 100 .375 gm In Sodium Chloride 0.9% 100 ml @ 25 mls/hr IVPB Q8HR [facility] Rx# :[id number] Oral 480 1020 240 Output: Urine 850 Other: Voiding Method Toilet Toilet Urinal Urinal # Voids 3 # Bowel Movements 1 - Labs CBC & Chem 7: 08/05/20 06:29 08/05/20 06:29 Labs: Abnormal Lab Results - Last 24 Hours (Table) 08/05/20 08/05/20 08/05/20 Range/Units 12:03 16:55 20:26 POC Glucose (mg/dL) 291 H 252 H 317 H (75-99) mg/dL 08/06/20 Range/Units 06:12 POC Glucose (mg/dL) 158 H (75-99) mg/dL Microbiology - Last 24 Hours (Table) 08/03/20 07:55 Gram Stain - Final Sputum Sputum Culture - Final Pseudomonas aeruginosa Assessment and Plan Plan: Assessment: 1. Acute kidney injury mostly prerenal secondary to cardiorenal syndrome. Creatinine 2.56 . as of yesterday No evidence of hydronephrosis noted on kidney ultrasound. 2. Lower extremity edema maintained onLasix drip.3. Acute on chronic systolic CHF with ejection fraction of 30-35% and moderate mitral regurgitation. 4. Chronic kidney disease stage III A. fib Baseline creatinine 1.2-1.5 s econdary to nephrosclerosis. 5. Diabetes mellitus. Plan: Increase Lasix drip at 10 mL an hour. Maintain metolazone. Low-salt diet. Avoid nephrotoxins. Continue to monitor renal function and urine output. Maintain midodrine. Follow-up morning labs.
[2020-08-06 11:37] LABS: Basophils % (A) 1 %; Eosinophils # (A) 0.1 k/uL (0-0.7); Eosinophils % (A) 3 %; HCT 29.6 % (39.0-53.0); HGB 9.5 gm/dL (13.0-17.5); Hypochromasia Marked; Lymphocytes # (A) 1.2 k/uL (1.0-4.8); Lymphocytes % (A) 24 %; MCH 31.5 pg (25.0-35.0); MCHC 31.9 g/dL (31.0-37.0); MCV 98.6 fL (80.0-100.0); Mean Platelet Volume 8.4; Monocytes # (A) 0.5 k/uL (0-1.0); Monocytes % (A) 9 %; Neutrophils # (A) 3.2 k/uL (1.3-7.7); Neutrophils % (A) 62 %; Platelet Count 209 k/uL (150-450); RBC 3.01 m/uL (4.30-5.90); RDW 13.8 % (11.5-15.5); WBC 5.1 k/uL (3.8-10.6)
[2020-08-06 11:53] LABS: Calcium 8.4 mg/dL (8.4-10.2); Magnesium 1.3 mg/dL (1.6-2.3); Potassium 4.4 mmol/L (3.5-5.1)
[2020-08-06 12:04] LABS: Glucose,Whole Blood 324 mg/dL (75-99)
--- NOTE | 2020-08-06 15:01 | P.PN ---
Subjective Progress Note Date: 08/06/20 HISTORY OF PRESENT ILLNESS: This is a pleasant 64-year-old male past medical history significant for COPD on home oxygen, sick sinus syndrome s/p permanent pacemaker impla ntation (Medtronic), permanent atrial fibrillation on penitentiary anti-coagulation and chronic systolic heart failure. He follows in the office with Dr. Landeros. He is seen and examined sitting up at the bedside in no acute distress. He states at rest his breathing is stable however if he gets up and walks to the bathroom he feels quite short of breath still. Symptoms are somewhat improving. Blood pressure 102/68 heart rate 80 afebrile and maintaining oxygen saturation on nasal cannula. Laboratory data reviewed, WBC 5.7, hemoglobin 9.5, platelets 213, sodium 137, potassium 3.7 and creatinine 2.39. An accurate documentation of urinary output. Currently maintained on Lasix IV 60 mg 3 times a day, Eliquis 2.5 mg twice a day, aspirin 325 mg daily, lisinopril 2.5 mg daily and Toprol 50 mg daily. 08/05/2020 Pt seen and examined sitting up in bed in no acute distress. He denies chest pain. He feels ongoing shortness of breath with activity that seems to be mildly decreased from yesterday, but really not much. Blood pressure 95/62 heart rate 116. Telemetry tracings reviewed. Primary care team decreased his daily lasix intake to 40 mg IV BID. Laboratory data reviewed, WBC 5.8, hemoglobin 9.3, platelets 237, sodium 136, potassium 4.1, creatinine 2.56. 08/06/2020 Patient examined this morning at the bedside. Patient denies chest pain or pressure. He denies shortness of breath. He continues to have lower extremity edema. He remains on a Lasix drip per nephrology. creatinine 2.46 today. PHYSICAL EXAM: VITAL SIGNS: Reviewed. GENERAL: Well-developed in no acute distress. NECK: Supple. No JVD or thyromegaly LUNGS: Respirations even and unlabored. Lungs diminished with bibasilar rales. HEART: irregular rate and rhythm. S1 and S2 heard. Systolic murmur noted. EXTREMITIES: Normal range of motion. No clubbing or cyanosis. Peripheral pulses intact. 2+ bilateral lower extremity edema with Dany wraps noted. ASSESSMENT: Acute on chronic systolic heart failure Lower extremity cellulitis Permanent atrial fibrillation on eliquis Sick sinus syndrome s/p permanent pacemaker implantation Acute on chronic COPD Diabetes mellitus Left bundle branch block Hypertension Acute on chronic kidney disease PLAN: continue Lasix drip per nephrology Daily weights Accurate I&O Monitor kidney function Further recommendations pending patient course Nurse practitioner note has been reviewed by physician. Signing provider agrees with the documented findings, assessment, and plan of care. Objective - Vital Signs Vital signs: Vital Signs Temp 98.3 F 08/06/20 03:24 Pulse 100 08/06/20 11:16 Resp 20 08/06/20 03:24 BP 104/62 08/06/20 03:24 Pulse Ox 94 L 08/06/20 03:24 Intake & Output 08/05/20 08/06/20 08/06/20 18:59 06:59 18:59 Intake Total 480 1150 340 Output Total 850 Balance 480 300 340 Weight 115.8 kg Intake: Intake, IV Titration 130 100 Amount Furosemide 100 mg In 30 100 Sodium Chloride 0.9% 90 ml @ 5 MG/HR 5 mls/hr IV .Q20H [facility] Rx#:[id number] Piperacillin-Tazobactam 3 100 .375 gm In Sodium Chloride 0.9% 100 ml @ 25 mls/hr IVPB Q8HR [facility] Rx# :[id number] Oral 480 1020 240 Output: Urine 850 Other: Voiding Method Toilet Toilet Urinal Urinal # Voids 3 # Bowel Movements 1 - Labs CBC & Chem 7: 08/06/20 09:11 08/06/20 09:11 Labs: Abnormal Lab Results - Last 24 Hours (Table) 08/05/20 08/05/20 08/06/20 Range/Units 16:55 20:26 06:12 RBC (4.30-5.90) m/uL Hgb (13.0-17.5) gm/dL Hct (39.0-53.0) % Sodium (137-145) mmol/L Chloride (98-107) mmol/L Carbon Dioxide (22-30) mmol/L BUN (9-20) mg/dL Creatinine (0.66-1.25) mg/dL Glucose (74-99) mg/dL POC Glucose (mg/dL) 252 H 317 H 158 H (75-99) mg/dL Magnesium (1.6-2.3) mg/dL 08/06/20 08/06/20 08/06/20 Range/Units 09:11 09:11 11:55 RBC 3.01 L (4.30-5.90) m/uL Hgb 9.5 L (13.0-17.5) gm/dL Hct 29.6 L (39.0-53.0) % Sodium 132 L (137-145) mmol/L Chloride 90 L (98-107) mmol/L Carbon Dioxide 39 H (22-30) mmol/L BUN 67 H (9-20) mg/dL Creatinine 2.46 H (0.66-1.25) mg/dL Glucose 234 H (74-99) mg/dL POC Glucose (mg/dL) 324 H (75-99) mg/dL Magnesium 1.3 L (1.6-2.3) mg/dL
[2020-08-06] MEDS: metOLazone 5 MG TAB PO SCH (16:06)
[2020-08-06 17:12] LABS: Glucose,Whole Blood 453 mg/dL (75-99)
[2020-08-06] MEDS: MAGNESIUM SULFATE-D5W PMX 1 GM in DEXTROSE/WATER 1 100ML.BAG IVPB SCH ×3 (17:33→21:24)
--- NOTE | 2020-08-06 20:40 | PN ---
PROGRESS NOTE DATE OF SERVICE: 08/06/2020 INTERVAL HISTORY: This 64-year-old gentleman who was admitted CHF exacerbation is being closely monitored. Patient also had acute renal failure also. Most recent chest x-ray which was reviewed personally by me showed significant improvement at this time. No chest pain. No palpitations. No fever. REVIEW OF SYSTEMS: CARDIOVASCULAR: No angina. RESPIRATORY: As mentioned earlier. GI: As mentioned earlier. : No dysuria. NERVOUS SYSTEM: No numbness or weakness. MEDICATIONS: Eagle, DuoNeb, aspirin, Flexeril, Levemir, Toprol-XL, Primatene, Zosyn. Doses noted. PHYSICAL EXAMINATION: GENERAL: Patient is alert and oriented times three. VITAL SIGNS: Pulse 80, blood pressure 108/62, respirations 20, temperature normal, pulse ox 94% on 4 liters. HEENT: Conjunctivae normal. Oral mucosa moist. NECK: No jugular venous distention. No carotid bruits. No lymph node enlargement. RESPIRATORY: Breath sounds diminished at the bases. A few scattered rhonchi and crackles. HEART: S1 and S2, muffled. ABDOMEN: Soft, no tenderness. No masses palpable. EXTREMITIES: No edema, no swelling. NERVOUS: No focal deficits. LAB: Hemoglobin 9.5, creatinine is 2.46. Sodium 132. ASSESSMENT: 1. Congestive heart failure acute exacerbation with acute on chronic systolic dysfunction ejection fraction 35%. 2. Acute renal failure possibly cardiorenal syndrome with acute on chronic kidney disease. 3. Possible Pseudomonas pneumonia. 4. Chronic kidney stage 3 baseline. 5. Hyponatremia. 6. Hypoalbuminemia. 7. Elevated procalcitonin. 8. Anemia, normocytic anemia of chronic disease. 9. Obesity with body mass index of 33.5. 10.Nonischemic cardiomyopathy history. 11.History of bilateral lower extremity cellulitis, left more than the right with great toe ulcers. 12.History of ETOH abuse and delirium tremens. 13.History of chronic hypoxic respiratory failure secondary to COPD on home O2 4 L nasal cannula. 14.Diabetes mellitus type 2. 15.Hypertension. 16.Hyperlipidemia. 17.Acute on chronic kidney disease stage 3, baseline creatinine 1.1. 18.Hypoglycemia. 19.Possible sleep apnea on CPAP. 20.Paroxysmal atrial fibrillation, anticoagulation with Eliquis. Considering ablation as an outpatient. 21.History of pacemaker placement. 22.History of smoking. 23.Deep vein thrombosis prophylaxis. RECOMMENDATIONS AND DISCUSSION: Recommend to continue current medication, continue to monitor. Symptomatic treatment. Otherwise at this time I would recommend to monitor the blood sugars closely. Chest x- ray was noted. I would reduce the dose of steroids. The patient is taking 40 of Lasix daily. We will continue the same amount. Otherwise the patient is on Lasix drip at this time. The patient is definitely on negative diuresis. Guarded prognosis. Further recommendations to follow. MMODL / IJN: [id number] /
[2020-08-06 20:50] LABS: Glucose,Whole Blood 145 mg/dL (75-99)
[2020-08-07] MEDS: HYDROcodone/APAP 10-325MG 1 EACH TAB PO PRN ×3 (04:20→16:21)
[2020-08-07] MEDS: FUROSEMIDE 100 MG in SODIUM CHLORIDE 0.9% 90 ML IV SCH ×2 (04:37→22:56)
[2020-08-07] MEDS: MIDODRINE 5 MG TAB PO SCH ×3 (06:37→17:59)
[2020-08-07] MEDS: PANTOPRAZOLE 40 MG TABLET PO SCH (06:37)
[2020-08-07] MEDS: LEVOTHYROXINE 25 MCG TAB PO SCH (06:37)
[2020-08-07] MEDS: IPRATROPIUM-ALBUTEROL 3 ML NEB INHALATION SCH ×4 (07:00→21:04)
[2020-08-07 07:33] LABS: Glucose,Whole Blood 258 mg/dL (75-99)
[2020-08-07] MEDS: APIXABAN 2.5 MG TABLET PO SCH ×2 (08:14→20:39)
[2020-08-07] MEDS: INSULIN ASPART (NovoLOG) 100 UNIT/ML VIAL SQ SCH ×7 (08:14→20:39)
[2020-08-07] MEDS: metOLazone 5 MG TAB PO SCH (08:14)
[2020-08-07] MEDS: INSULIN DETEMIR (LEVEMIR) 100 UNIT/ML SYR SQ SCH (08:14)
[2020-08-07] MEDS: guaiFENesin 600 MG TABLET.ER PO SCH ×2 (08:14→20:39)
[2020-08-07] MEDS: METOPROLOL SUCCINATE (ER) 50 MG TAB.ER.24H PO SCH (08:14)
[2020-08-07] MEDS: predniSONE 10 MG TAB PO SCH (08:14)
[2020-08-07] MEDS: ASPIRIN 81 MG PO SCH (08:15)
[2020-08-07] MEDS: PIPERACILLIN-TAZOBACTAM 3.375 GM in SODIUM CHLORIDE 0.9% 100 ML IVPB SCH ×3 (08:15→23:08)
[2020-08-07] MEDS: TAMSULOSIN 0.4 MG CAP.ER.24H PO SCH (08:15)
[2020-08-07 09:32] LABS: Albumin 3.5 g/dL (3.5-5.0); Calcium 8.9 mg/dL (8.4-10.2); Magnesium 1.8 mg/dL (1.6-2.3); Potassium 4.4 mmol/L (3.5-5.1); Total Bilirubin 0.4 mg/dL (0.2-1.3); Total Protein 6.1 g/dL (6.3-8.2)
[2020-08-07] MEDS ORDERED: METOPROLOL SUCCINATE (ER) 25 MG TAB.ER.24H PO STA (10:10)
--- NOTE | 2020-08-07 11:23 | P.PN ---
Subjective Patient is seen in follow-up for acute kidney injury on chronic kidney disease. Patient has chronic kidney disease stage III with baseline creatinine in the range of 1.2-1.5. Denies chest pain or shortness of breath. Still quite edematous. Maintained on Lasix drip. Urine output documented is 2.4 L in the last 24 hours. Hemodynamically stable. Vital signs are stable. General: The patient appeared well nourished and normally developed. HEENT: Head exam is unremarkable. Neck is without jugular venous distension. LUNGS: Breath sounds decreased. HEART: Rate and Rhythm are regular. ABDOMEN: Soft, nontender. EXTREMITITES: 2+ edema. Objective - Vital Signs Vital signs: Vital Signs Temp 98.1 F 08/07/20 08:00 Pulse 128 H 08/07/20 08:00 Resp 22 08/07/20 08:00 BP 113/79 08/07/20 08:00 Pulse Ox 92 L 08/07/20 08:00 Intake & Output 08/06/20 08/07/20 08/07/20 18:59 06:59 18:59 Intake Total 820 495.334 480 Output Total 700 1750 1175 Balance 120 -1254.666 -695 Weight 116 kg Intake: Intake, IV Titration 100 495.334 Amount Furosemide 100 mg In 100 95.334 Sodium Chloride 0.9% 90 ml @ 10 MG/HR 10 mls/hr IV .Q10H [facility] Rx#: [id number] Magnesium Sulfate-D5w Pmx 300 1 gm In Dextrose/Water 1 100ml.bag @ 100 mls/hr IVPB Q1H [facility] Rx#: [id number] Piperacillin-Tazobactam 3 100 .375 gm In Sodium Chloride 0.9% 100 ml @ 25 mls/hr IVPB Q8HR [facility] Rx# :[id number] Oral 720 480 Output: Urine 700 1750 1175 Other: Voiding Method Urinal # Voids 1 # Bowel Movements 1 - Labs CBC & Chem 7: 08/06/20 09:11 08/07/20 08:01 Labs: Abnormal Lab Results - Last 24 Hours (Table) 08/06/20 08/06/20 08/06/20 Range/Units 09:11 09:11 11:55 RBC 3.01 L (4.30-5.90) m/uL Hgb 9.5 L (13.0-17.5) gm/dL Hct 29.6 L (39.0-53.0) % Sodium 132 L (137-145) mmol/L Chloride 90 L (98-107) mmol/L Carbon Dioxide 39 H (22-30) mmol/L BUN 67 H (9-20) mg/dL Creatinine 2.46 H (0.66-1.25) mg/dL Glucose 234 H (74-99) mg/dL POC Glucose (mg/dL) 324 H (75-99) mg/dL Magnesium 1.3 L (1.6-2.3) mg/dL Total Protein (6.3-8.2) g/dL 08/06/20 08/06/20 08/07/20 Range/Units 17:05 20:37 07:30 RBC (4.30-5.90) m/uL Hgb (13.0-17.5) gm/dL Hct (39.0-53.0) % Sodium (137-145) mmol/L Chloride (98-107) mmol/L Carbon Dioxide (22-30) mmol/L BUN (9-20) mg/dL Creatinine (0.66-1.25) mg/dL Glucose (74-99) mg/dL POC Glucose (mg/dL) 453 H 145 H 258 H (75-99) mg/dL Magnesium (1.6-2.3) mg/dL Total Protein (6.3-8.2) g/dL 08/07/20 Range/Units 08:01 RBC (4.30-5.90) m/uL Hgb (13.0-17.5) gm/dL Hct (39.0-53.0) % Sodium 134 L (137-145) mmol/L Chloride 88 L (98-107) mmol/L Carbon Dioxide 37 H (22-30) mmol/L BUN 64 H (9-20) mg/dL Creatinine 2.33 H (0.66-1.25) mg/dL Glucose 270 H (74-99) mg/dL POC Glucose (mg/dL) (75-99) mg/dL Magnesium (1.6-2.3) mg/dL Total Protein 6.1 L (6.3-8.2) g/dL Assessment and Plan Plan: Assessment: 1. Acute kidney injury mostly prerenal secondary to cardiorenal syndrome. Renal function improving. Creatinine 2.33 today. No evidence of hydronephrosis noted on kidney ultrasound. 2. Lower extremity edema maintained onL asix drip. 3. Acute on chronic systolic CHF with ejection fraction of 30-35% and moderate mitral regurgitation. 4. Chronic kidney disease stage III A. fib Baseline creatinine 1.2-1.5 secondary to nephrosclerosis. 5. Diabetes mellitus. Plan: Increase Lasix drip to 15 mL an hour. Maintain metolazone. Low-salt diet. Avoid nephrotoxins. Continue to monitor renal function and urine output. Maintain midodrine.
[2020-08-07 12:33] LABS: Glucose,Whole Blood 115 mg/dL (75-99)
--- NOTE | 2020-08-07 13:49 | P.PN ---
Subjective Progress Note Date: 08/07/20 HISTORY OF PRESENT ILLNESS: This is a pleasant 64-year-old male past medical history significant for COPD on home oxygen, sick sinus syndrome s/p permanent pacemaker impla ntation (Medtronic), permanent atrial fibrillation on [facility] anti-coagulation and chronic systolic heart failure. He follows in the office with Dr. Landeros. He is seen and examined sitting up at the bedside in no acute distress. He states at rest his breathing is stable however if he gets up and walks to the bathroom he feels quite short of breath still. Symptoms are somewhat improving. Blood pressure 102/68 heart rate 80 afebrile and maintaining oxygen saturation on nasal cannula. Laboratory data reviewed, WBC 5.7, hemoglobin 9.5, platelets 213, sodium 137, potassium 3.7 and creatinine 2.39. An accurate documentation of urinary output. Currently maintained on Lasix IV 60 mg 3 times a day, Eliquis 2.5 mg twice a day, aspirin 325 mg daily, lisinopril 2.5 mg daily and Toprol 50 mg daily. 08/05/2020 Pt seen and examined sitting up in bed in no acute distress. He denies chest pain. He feels ongoing shortness of breath with activity that seems to be mildly decreased from yesterday, but really not much. Blood pressure 95/62 heart rate 116. Telemetry tracings reviewed. Primary care team decreased his daily lasix intake to 40 mg IV BID. Laboratory data reviewed, WBC 5.8, hemoglobin 9.3, platelets 237, sodium 136, potassium 4.1, creatinine 2.56. 08/06/2020 Patient examined this morning at the bedside. Patient denies chest pain or pressure. He denies shortness of breath. He continues to have lower extremity edema. He remains on a Lasix drip per nephrology. creatinine 2.46 today. 08/07/2020 Patient examined this morning in the bedside. Patient states he is feeling well and is wanting to go home. He has told the nurse he is possibly going to leave AMA. Patient's Lasix drip was increased yesterday to 10 mg an hour. Patient remains in atrial fibrillation with a heart rate in the 120s this morning. Creatinine 2.30. Fluid balance over the last 24 hours is -1100 mL. PHYSICAL EXAM: VITAL SIGNS: Reviewed. GENERAL: Well-developed in no acute distress. NECK: Supple. No JVD or thyromegaly LUNGS: Respirations even and unlabored. Lungs diminished with bibasilar rales. HEART: irregular rate and rhythm. S1 and S2 heard. Systolic murmur noted. EXTREMITIES: Normal range of motion. No clubbing or cyanosis. Peripheral pulses intact. 2+ bilateral lower extremity edema with Dany wraps noted. ASSESSMENT: Acute on chronic systolic heart failure Lower extremity cellulitis Permanent atrial fibrillation on eliquis Sick sinus syndrome s/p permanent pacemaker implantation Acute on chronic COPD Diabetes mellitus Left bundle branch block Hypertension Acute on chronic kidney disease PLAN: continue Lasix drip per nephrology Daily weights Accurate I&O Monitor kidney function Increase Toprol-XL to 75 mg. Continue telemetry monitoring Further recommendations pending patient course Nurse practitioner note has been reviewed by physician. Signing provider agrees with the documented findings, assessment, and plan of care. Objective - Vital Signs Vital signs: Vital Signs Temp 98.1 F 08/07/20 08:00 Pulse 123 H 08/07/20 12:54 Resp 20 08/07/20 12:00 BP 106/68 08/07/20 12:00 Pulse Ox 91 L 08/07/20 12:00 Intake & Output 08/06/20 08/07/20 08/07/20 18:59 06:59 18:59 Intake Total 820 495.334 640 Output Total 700 1750 1700 Balance 120 -1254.666 -1060 Weight 116 kg Intake: Intake, IV Titration 100 495.334 42 Amount Furosemide 100 mg In 100 95.334 42 Sodium Chloride 0.9% 90 ml @ 15 MG/HR 15 mls/hr IV .Q6H40M [facility] Rx#: [id number] Magnesium Sulfate-D5w Pmx 300 1 gm In Dextrose/Water 1 100ml.bag @ 100 mls/hr IVPB Q1H [facility] Rx#: [id number] Piperacillin-Tazobactam 3 100 .375 gm In Sodium Chloride 0.9% 100 ml @ 25 mls/hr IVPB Q8HR [facility] Rx# :[id number] Oral 720 598 Output: Urine 700 1750 1700 Other: Voiding Method Urinal # Voids 1 # Bowel Movements 1 - Labs CBC & Chem 7: 08/06/20 09:11 08/07/20 08:01 Labs: Abnormal Lab Results - Last 24 Hours (Table) 08/06/20 08/06/20 08/07/20 Range/Units 17:05 20:37 07:30 Sodium (137-145) mmol/L Chloride (98-107) mmol/L Carbon Dioxide (22-30) mmol/L BUN (9-20) mg/dL Creatinine (0.66-1.25) mg/dL Glucose (74-99) mg/dL POC Glucose (mg/dL) 453 H 145 H 258 H (75-99) mg/dL Total Protein (6.3-8.2) g/dL 08/07/20 08/07/20 Range/Units 08:01 12:31 Sodium 134 L (137-145) mmol/L Chloride 88 L (98-107) mmol/L Carbon Dioxide 37 H (22-30) mmol/L BUN 64 H (9-20) mg/dL Creatinine 2.33 H (0.66-1.25) mg/dL Glucose 270 H (74-99) mg/dL POC Glucose (mg/dL) 115 H (75-99) mg/dL Total Protein 6.1 L (6.3-8.2) g/dL
--- NOTE | 2020-08-07 15:37 | PN ---
PROGRESS NOTE DATE OF SERVICE: 08/07/2020 This 64-year-old gentleman who was admitted with CHF, acute exacerbation, is on Lasix drip at this time. The patient is extremely keen on going home. The current Lasix drip is being continued. Nephrology and Cardiology are following the patient closely. The patient has significant bilateral leg swelling and ulceration of the left leg also. The sputum culture is also showing pseudomonas. The patient is being closely monitored. Past medical history reviewed. REVIEW OF SYSTEMS: CARDIOVASCULAR SYSTEM: No angina, palpitations. RESPIRATORY SYSTEM: As mentioned earlier. GI: As mentioned earlier. : No dysuria or retention. NERVOUS SYSTEM: No numbness, weakness. CURRENT MEDICATIONS: Reviewed. They include Carson, DuoNeb, Eliquis, aspirin. Flexeril, NovoLog. Doses are reviewed. PHYSICAL EXAMINATION: Patient alert and oriented x3. Pulse 120, blood pressure 106/68, respiration 20, temperature 98.2, pulse ox 91% on 4 L. HEENT: Conjunctivae normal. NECK: No jugular venous distention. CARDIOVASCULAR SYSTEM: S1, S2 muffled. RESPIRATORY SYSTEM: Breath sounds diminished at the bases. A few scattered rhonchi. ABDOMEN: Soft, non-tender. LEGS: Bilateral leg edema. NERVOUS SYSTEM: No focal deficit. LABS: WBC 5.1. Sodium 134, creatinine is 2.33. ASSESSMENT: 1. Congestive heart failure, acute exacerbation, with acute on chronic systolic dysfunction, ejection fraction 35%. 2. Acute renal failure, possibly cardiorenal syndrome, with acute on chronic kidney disease. 3. Possible pseudomonas pneumonia. 4. Chronic kidney disease, stage 3 baseline. 5. Hyponatremia. 6. Hypoalbuminemia. 7. Elevated procalcitonin. 8. Anemia; normocytic anemia of chronic disease. 9. Obesity with body mass index of 33.5. 10.Nonischemic cardiomyopathy. 11.History of bilateral lower christine cellulitis, left more than the right, with grade 2 ulcers. 12.History of EtOH abuse and delirium tremens. 13.History of chronic hypoxic respiratory failure secondary to chronic obstructive pulmonary disease, on home oxygen 4 L nasal cannula. 14.Diabetes mellitus, type 2. 15.Hypertension. 16.Hyperlipidemia. 17.Acute on chronic kidney disease, stage 3. Baseline creatinine 1.1. 18.Hyperglycemia. 19.Possible sleep apnea, on CPAP. 20.Paroxysmal atrial fibrillation, on anticoagulation with Eliquis; considering ablation as an outpatient. 21.History of pacemaker placement. 22.History of smoking. 23.Deep vein thrombosis prophylaxis. RECOMMENDATIONS AND DISCUSSION: I recommend to continue current medications, continue with the monitoring, symptomatic treatment. Otherwise, the patient is on IV Zosyn. Will continue the same. Continue the rest of the medications. Lasix drip. Closely follow with Nephrology and Cardiology. Guarded prognosis. Further recommendations to follow. Repeat labs will be ordered. MMODL / IJN: [id number] /
[2020-08-07 17:19] LABS: Glucose,Whole Blood 174 mg/dL (75-99)
[2020-08-07 20:07] LABS: Glucose,Whole Blood 336 mg/dL (75-99)
[2020-08-07] MEDS: HYDROmorphone 0.5 MG/0.5 ML SYRINGE IVP PRN (20:39)
[2020-08-08] MEDS: HYDROcodone/APAP 10-325MG 1 EACH TAB PO PRN ×3 (01:32→19:54)
[2020-08-08] MEDS: FUROSEMIDE 100 MG in SODIUM CHLORIDE 0.9% 90 ML IV SCH ×2 (05:17→23:28)
[2020-08-08] MEDS: LEVOTHYROXINE 25 MCG TAB PO SCH (06:22)
[2020-08-08] MEDS: MIDODRINE 5 MG TAB PO SCH ×3 (06:22→17:17)
[2020-08-08] MEDS: PANTOPRAZOLE 40 MG TABLET PO SCH (06:22)
[2020-08-08] MEDS: HYDROmorphone 0.5 MG/0.5 ML SYRINGE IVP PRN ×3 (06:22→23:00)
[2020-08-08] MEDS: IPRATROPIUM-ALBUTEROL 3 ML NEB INHALATION SCH ×4 (07:26→19:31)
[2020-08-08 07:33] LABS: Glucose,Whole Blood 183 mg/dL (75-99)
[2020-08-08] MEDS: PIPERACILLIN-TAZOBACTAM 3.375 GM in SODIUM CHLORIDE 0.9% 100 ML IVPB SCH ×3 (07:51→22:59)
[2020-08-08] MEDS: INSULIN ASPART (NovoLOG) 100 UNIT/ML VIAL SQ SCH ×7 (07:51→20:32)
[2020-08-08] MEDS: INSULIN DETEMIR (LEVEMIR) 100 UNIT/ML SYR SQ SCH (07:51)
[2020-08-08] MEDS: predniSONE 10 MG TAB PO SCH (07:52)
[2020-08-08] MEDS: guaiFENesin 600 MG TABLET.ER PO SCH ×2 (07:53→19:55)
[2020-08-08] MEDS: ASPIRIN 81 MG PO SCH (07:53)
[2020-08-08] MEDS: APIXABAN 2.5 MG TABLET PO SCH ×2 (07:53→19:54)
[2020-08-08] MEDS: TAMSULOSIN 0.4 MG CAP.ER.24H PO SCH (07:53)
[2020-08-08] MEDS: metOLazone 5 MG TAB PO SCH (08:29)
[2020-08-08] MEDS ORDERED: METOPROLOL SUCCINATE (ER) 25 MG TAB.ER.24H PO SCH (09:00)
[2020-08-08 09:35] LABS: Calcium 9.1 mg/dL (8.4-10.2); Potassium 4.5 mmol/L (3.5-5.1)
[2020-08-08 09:48] LABS: Basophils % (A) 1 %; Eosinophils # (A) 0.2 k/uL (0-0.7); Eosinophils % (A) 3 %; HCT 31.8 % (39.0-53.0); HGB 10.4 gm/dL (13.0-17.5); Hypochromasia Moderate; Lymphocytes # (A) 1.4 k/uL (1.0-4.8); Lymphocytes % (A) 23 %; MCH 31.9 pg (25.0-35.0); MCHC 32.7 g/dL (31.0-37.0); MCV 97.5 fL (80.0-100.0); Monocytes # (A) 0.6 k/uL (0-1.0); Monocytes % (A) 10 %; Neutrophils % (A) 63 %; Platelet Count 258 k/uL (150-450); RBC 3.26 m/uL (4.30-5.90); RDW 13.8 % (11.5-15.5); WBC 6.3 k/uL (3.8-10.6)
[2020-08-08] MEDS ORDERED: METOPROLOL SUCCINATE (ER) 25 MG TAB.ER.24H PO STA (11:57)
[2020-08-08 12:17] LABS: Glucose,Whole Blood 141 mg/dL (75-99)
--- NOTE | 2020-08-08 13:42 | P.PN ---
Subjective Progress Note Date: 08/08/20 HISTORY OF PRESENT ILLNESS: This is a pleasant 64-year-old male past medical history significant for COPD on home oxygen, sick sinus syndrome s/p permanent pacemaker impla ntation ([employer]tr[employer]), permanent atrial fibrillation on long-term anti-coagulation and chronic systolic heart failure. He follows in the office with Dr. Landeros. He is seen and examined sitting up at the bedside in no acute distress. He states at rest his breathing is stable however if he gets up and walks to the bathroom he feels quite short of breath still. Symptoms are somewhat improving. Blood pressure 102/68 heart rate 80 afebrile and maintaining oxygen saturation on nasal cannula. Laboratory data reviewed, WBC 5.7, hemoglobin 9.5, platelets 213, sodium 137, potassium 3.7 and creatinine 2.39. An accurate documentation of urinary output. Currently maintained on Lasix IV 60 mg 3 times a day, Eliquis 2.5 mg twice a day, aspirin 325 mg daily, lisinopril 2.5 mg daily and Toprol 50 mg daily. 08/05/2020 Pt seen and examined sitting up in bed in no acute distress. He denies chest pain. He feels ongoing shortness of breath with activity that seems to be mildly decreased from yesterday, but really not much. Blood pressure 95/62 heart rate 116. Telemetry tracings reviewed. Primary care team decreased his daily lasix intake to 40 mg IV BID. Laboratory data reviewed, WBC 5.8, hemoglobin 9.3, platelets 237, sodium 136, potassium 4.1, creatinine 2.56. 08/06/2020 Patient examined this morning at the bedside. Patient denies chest pain or pressure. He denies shortness of breath. He continues to have lower extremity edema. He remains on a Lasix drip per nephrology. creatinine 2.46 today. 08/07/2020 Patient examined this morning in the bedside. Patient states he is feeling well and is wanting to go home. He has told the nurse he is possibly going to leave AMA. Patient's Lasix drip was increased yesterday to 10 mg an hour. Patient remains in atrial fibrillation with a heart rate in the 120s this morning. Creatinine 2.30. Fluid balance over the last 24 hours is -1100 mL. 08/08/2020 Patient examined this morning at the bedside. Patient denies chest pain or pr essure. He reports mild shortness of breath which she states is his baseline. He remains on a Lasix drip per nephrology at 15 mg an hour. Fluid balance over the last 24 hours is -3400 mL. Telemetry reveals atrial fibrillation with RVR. PHYSICAL EXAM: VITAL SIGNS: Reviewed. GENERAL: Well-developed in no acute distress. NECK: Supple. No JVD or thyromegaly LUNGS: Respirations even and unlabored. Lungs diminished with bibasilar rales. HEART: irregular rate and rhythm. S1 and S2 heard. Systolic murmur noted. EXTREMITIES: Normal range of motion. No clubbing or cyanosis. Peripheral pulses intact. 2+ bilateral lower extremity edema with Dany wraps noted. ASSESSMENT: Acute on chronic systolic heart failure Lower extremity cellulitis Permanent atrial fibrillation on eliquis Sick sinus syndrome s/p permanent pacemaker implantation Acute on chronic COPD Diabetes mellitus Left bundle branch block Hypertension Acute on chronic kidney disease PLAN: Continue Lasix drip per nephrology Daily weights Accurate I&O Monitor kidney function Increase Toprol-XL to 100 mg. Continue telemetry monitoring Further recommendations pending patient course Nurse practitioner note has been reviewed by physician. Signing provider agrees with the documented findings, assessment, and plan of care. Objective - Vital Signs Vital signs: Vital Signs Temp 96.7 F L 08/08/20 08:00 Pulse 120 H 08/08/20 11:47 Resp 20 08/08/20 08:00 BP 127/79 08/08/20 08:00 Pulse Ox 92 L 08/08/20 08:00 Intake & Output 08/07/20 08/08/20 08/08/20 18:59 06:59 18:59 Intake Total 698 213.25 118 Output Total 1700 2620 700 Balance -1002 -2406.75 -582 Weight 114.3 kg Intake: Intake, IV Titration 100 95.25 Amount Furosemide 100 mg In 100 95.25 Sodium Chloride 0.9% 90 ml @ 15 MG/HR 15 mls/hr IV .Q6H40M [facility] Rx#: [id number] Oral 598 118 118 Output: Urine 1700 2620 700 Other: Voiding Method Urinal # Voids 2 - Labs CBC & Chem 7: 08/08/20 07:41 08/08/20 07:41 Labs: Abnormal Lab Results - Last 24 Hours (Table) 08/07/20 08/07/20 08/08/20 Range/Units 17:16 20:06 07:31 RBC (4.30-5.90) m/uL Hgb (13.0-17.5) gm/dL Hct (39.0-53.0) % Sodium (137-145) mmol/L Chloride (98-107) mmol/L Carbon Dioxide (22-30) mmol/L BUN (9-20) mg/dL Creatinine (0.66-1.25) mg/dL Glucose (74-99) mg/dL POC Glucose (mg/dL) 174 H 336 H 183 H (75-99) mg/dL 08/08/20 08/08/20 08/08/20 Range/Units 07:41 07:41 12:15 RBC 3.26 L (4.30-5.90) m/uL Hgb 10.4 L (13.0-17.5) gm/dL Hct 31.8 L (39.0-53.0) % Sodium 136 L (137-145) mmol/L Chloride 87 L (98-107) mmol/L Carbon Dioxide 35 H (22-30) mmol/L BUN 73 H (9-20) mg/dL Creatinine 2.23 H (0.66-1.25) mg/dL Glucose 150 H (74-99) mg/dL POC Glucose (mg/dL) 141 H (75-99) mg/dL
--- NOTE | 2020-08-08 15:11 | P.PN ---
Subjective Progress Note Date: 08/08/20 Follow-up for acute kidney injury. Good urine output net negative of 3.0 L. Objective - Vital Signs Vital signs: Vital Signs Temp 96.7 F L 08/08/20 08:00 Pulse 120 H 08/08/20 11:47 Resp 20 08/08/20 08:00 BP 127/79 08/08/20 08:00 Pulse Ox 92 L 08/08/20 08:00 Intake & Output 08/07/20 08/08/20 08/08/20 18:59 06:59 18:59 Intake Total 698 213.25 338 Output Total 1700 2620 700 Balance -1002 -2406.75 -362 Weight 114.3 kg Intake: Intake, IV Titration 100 95.25 Amount Furosemide 100 mg In 100 95.25 Sodium Chloride 0.9% 90 ml @ 15 MG/HR 15 mls/hr IV .Q6H40M [facility] Rx#: [id number] Oral 598 118 338 Output: Urine 1700 2620 700 Other: Voiding Method Urinal # Voids 2 - Exam No acute distress S1-S2 heard Diminished breath sounds Edema Werner - Labs CBC & Chem 7: 08/08/20 07:41 08/08/20 07:41 Labs: Abnormal Lab Results - Last 24 Hours (Table) 08/07/20 08/07/20 08/08/20 Range/Units 17:16 20:06 07:31 RBC (4.30-5.90) m/uL Hgb (13.0-17.5) gm/dL Hct (39.0-53.0) % Sodium (137-145) mmol/L Chloride (98-107) mmol/L Carbon Dioxide (22-30) mmol/L BUN (9-20) mg/dL Creatinine (0.66-1.25) mg/dL Glucose (74-99) mg/dL POC Glucose (mg/dL) 174 H 336 H 183 H (75-99) mg/dL 08/08/20 08/08/20 08/08/20 Range/Units 07:41 07:41 12:15 RBC 3.26 L (4.30-5.90) m/uL Hgb 10.4 L (13.0-17.5) gm/dL Hct 31.8 L (39.0-53.0) % Sodium 136 L (137-145) mmol/L Chloride 87 L (98-107) mmol/L Carbon Dioxide 35 H (22-30) mmol/L BUN 73 H (9-20) mg/dL Creatinine 2.23 H (0.66-1.25) mg/dL Glucose 150 H (74-99) mg/dL POC Glucose (mg/dL) 141 H (75-99) mg/dL Assessment and Plan Assessment: #1 nonoliguric acute kidney injury secondary to type I CRS. #2 chronic kidney disease stage III secondary to nephrosclerosis with a baseline creatinine of 1.2-1.5 MG per DL. #3 systolic CHF with the EF of 30-35% #4 volume overload #5 hypertension with chronic kidney disease. Plan: #1 renal function stable continue on current diuretic regimen. #2 avoid nephrotoxic agents #3 labs in the morning
--- NOTE | 2020-08-08 15:57 | PN ---
PROGRESS NOTE DATE OF SERVICE: 08/08/2020 This 64-year-old gentleman who was admitted with CHF acute exacerbation also had renal failure on insulin and Lasix drip at this time. The patient also had tachycardia. Cardiology adjusting the medications. Patient is extremely keen on going home at this time. Nephrology and Cardiology following the patient closely. PAST MEDICAL HISTORY: Reviewed. REVIEW OF SYSTEMS: Cardiovascular System: As mentioned earlier. RESPIRATORY: As mentioned earlier. GI: As mentioned earlier. : No dysuria. NERVOUS SYSTEM: No numbness or weakness. CURRENT MEDICATIONS: Reviewed include George, DuoNeb, Eliquis, aspirin, Flexeril, Lasix, Dilaudid. PHYSICAL EXAM: Patient is alert, oriented x3. Pulse is 125, irregular. Blood pressure 127/70, respiration 20, temperature 98.7, pulse ox 98% on 4 L. HEENT: Conjunctivae normal. Oral mucosa moist. NECK: No jugular venous distention. No lymph node enlargement. CARDIOVASCULAR: S1, S2, muffled. No S3, no S4, RESPIRATORY: Diminished breath sounds at the bases. A few scattered rhonchi. ABDOMEN: Soft, nontender. LEGS: Bilateral leg edema. NERVOUS SYSTEM: No focal deficits. LAB STUDIES: WBC 6, hemoglobin 10.4. Creatinine is 2.23. The cultures are showing Pseudomonas aeruginosa in the sputum. ASSESSMENT: 1. Acute congestive heart failure exacerbation with acute on chronic systolic dysfunction, ejection fraction 30-35%. 2. Acute renal failure, possibly cardiorenal syndrome with acute on chronic kidney disease. 3. Possible Pseudomonas pneumonia. 4. Chronic kidney disease stage 3 baseline. 5. Hyponatremia. 6. Hypoalbuminemia. 7. Elevated procalcitonin. 8. Anemia, normocytic anemia of chronic disease. 9. Obesity with body mass index of 33.5. 10.Nonischemic cardiomyopathy history. 11.History of bilateral lower christine cellulitis, left more than the right with grade 2 ulcers. 12.History of EtOH abuse and delirium tremens. 13.History of chronic hypoxic respiratory failure secondary to chronic obstructive pulmonary disease on home O2 at 4 L nasal cannula. 14.Diabetes mellitus type 2. 15.Hypertension. 16.Hyperlipidemia. 17.Acute on chronic kidney disease stage 3, baseline creatinine 1.1. 18.Hyperglycemia. 19.Possible sleep apnea on CPAP. 20.Paroxysmal atrial fibrillation, on anticoagulation with Eliquis, considering ablation as an outpatient. 21.History of pacemaker placement. 22.History of smoking. 23.Deep vein thrombosis prophylaxis. RECOMMENDATIONS: Recommend to continue current management, continue symptomatic treatment. At this time I would recommend continue with medications, continue the Lasix drip, monitor the intake output chart. Prognosis guarded. Discussed with the patient and daughter at the bedside. Further recommendations to follow. FEROZ / KATHYN: [id number] /
[2020-08-08 17:21] LABS: Glucose,Whole Blood 339 mg/dL (75-99)
[2020-08-08 20:05] LABS: Glucose,Whole Blood 258 mg/dL (75-99)
[2020-08-09] MEDS: HYDROcodone/APAP 10-325MG 1 EACH TAB PO PRN ×3 (02:16→16:42)
[2020-08-09] MEDS: FUROSEMIDE 100 MG in SODIUM CHLORIDE 0.9% 90 ML IV SCH ×3 (05:12→18:34)
[2020-08-09] MEDS: HYDROmorphone 0.5 MG/0.5 ML SYRINGE IVP PRN ×4 (05:46→19:41)
[2020-08-09] MEDS: MIDODRINE 5 MG TAB PO SCH ×3 (05:46→16:02)
[2020-08-09] MEDS: PANTOPRAZOLE 40 MG TABLET PO SCH (05:46)
[2020-08-09] MEDS: LEVOTHYROXINE 25 MCG TAB PO SCH (05:46)
[2020-08-09 07:01] LABS: Glucose,Whole Blood 172 mg/dL (75-99)
[2020-08-09 07:40] LABS: Magnesium 1.5 mg/dL (1.6-2.3)
[2020-08-09] MEDS: INSULIN DETEMIR (LEVEMIR) 100 UNIT/ML SYR SQ SCH (07:44)
[2020-08-09] MEDS: INSULIN ASPART (NovoLOG) 100 UNIT/ML VIAL SQ SCH ×7 (07:45→21:42)
[2020-08-09] MEDS: MAGNESIUM SULFATE-D5W PMX 1 GM in DEXTROSE/WATER 1 100ML.BAG IVPB SCH ×2 (08:30→09:46)
[2020-08-09] MEDS: PIPERACILLIN-TAZOBACTAM 3.375 GM in SODIUM CHLORIDE 0.9% 100 ML IVPB SCH ×2 (08:30→16:03)
[2020-08-09] MEDS: guaiFENesin 600 MG TABLET.ER PO SCH ×2 (08:31→21:41)
[2020-08-09] MEDS: ASPIRIN 81 MG PO SCH (08:31)
[2020-08-09] MEDS: predniSONE 10 MG TAB PO SCH (08:31)
[2020-08-09] MEDS: TAMSULOSIN 0.4 MG CAP.ER.24H PO SCH (08:31)
[2020-08-09] MEDS: metOLazone 5 MG TAB PO SCH (08:31)
[2020-08-09] MEDS: APIXABAN 2.5 MG TABLET PO SCH ×2 (08:31→21:41)
[2020-08-09] MEDS: METOPROLOL SUCCINATE (ER) 100 MG TAB.ER.24H PO SCH (08:31)
[2020-08-09 08:55] LABS: Appearance,Urine Clear (Clear); Bilirubin,Urine Negative (Negative); Blood,Urine Negative (Negative); Color,Urine Colorless; Glucose,Urine (UA) Negative (Negative); Ketones,Urine Negative (Negative); Leukocyte Esterase,Urine Negative (Negative); Nitrite,Urine Negative (Negative); Protein,Urine Negative (Negative); Specific Gravity,Urine 1.008 (1.001-1.035); Urobilinogen,Urine <2.0 mg/dL (<2.0)
[2020-08-09] MEDS: IPRATROPIUM-ALBUTEROL 3 ML NEB INHALATION SCH ×5 (09:09→20:23)
[2020-08-09] MEDS: ONDANSETRON 4 MG TAB PO PRN (09:45)
[2020-08-09 09:49] LABS: Calcium 9.2 mg/dL (8.4-10.2); Potassium 3.9 mmol/L (3.5-5.1)
--- NOTE | 2020-08-09 12:30 | P.PN ---
Subjective Progress Note Date: 08/09/20 HISTORY OF PRESENT ILLNESS: This is a pleasant 64-year-old male past medical history significant for COPD on home oxygen, sick sinus syndrome s/p permanent pacemaker impla ntation ([employer]), permanent atrial fibrillation on halfway anti-coagulation and chronic systolic heart failure. He follows in the office with Dr. Landeros. He is seen and examined sitting up at the bedside in no acute distress. He states at rest his breathing is stable however if he gets up and walks to the bathroom he feels quite short of breath still. Symptoms are somewhat improving. Blood pressure 102/68 heart rate 80 afebrile and maintaining oxygen saturation on nasal cannula. Laboratory data reviewed, WBC 5.7, hemoglobin 9.5, platelets 213, sodium 137, potassium 3.7 and creatinine 2.39. An accurate documentation of urinary output. Currently maintained on Lasix IV 60 mg 3 times a day, Eliquis 2.5 mg twice a day, aspirin 325 mg daily, lisinopril 2.5 mg daily and Toprol 50 mg daily. 08/05/2020 Pt seen and examined sitting up in bed in no acute distress. He denies chest pain. He feels ongoing shortness of breath with activity that seems to be mildly decreased from yesterday, but really not much. Blood pressure 95/62 heart rate 116. Telemetry tracings reviewed. Primary care team decreased his daily lasix intake to 40 mg IV BID. Laboratory data reviewed, WBC 5.8, hemoglobin 9.3, platelets 237, sodium 136, potassium 4.1, creatinine 2.56. 08/06/2020 Patient examined this morning at the bedside. Patient denies chest pain or pressure. He denies shortness of breath. He continues to have lower extremity edema. He remains on a Lasix drip per nephrology. creatinine 2.46 today. 08/07/2020 Patient examined this morning in the bedside. Patient states he is feeling well and is wanting to go home. He has told the nurse he is possibly going to leave AMA. Patient's Lasix drip was increased yesterday to 10 mg an hour. Patient remains in atrial fibrillation with a heart rate in the 120s this morning. Creatinine 2.30. Fluid balance over the last 24 hours is -1100 mL. 08/08/2020 Patient examined this morning at the bedside. Patient denies chest pain or pr essure. He reports mild shortness of breath which she states is his baseline. He remains on a Lasix drip per nephrology at 15 mg an hour. Fluid balance over the last 24 hours is -3400 mL. Telemetry reveals atrial fibrillation with RVR. 08/09/2020 Patient examined this morning at the bedside. Patient denies chest pain or pressure. He denies shortness of breath. He remains on a Lasix drip at 15 mg an hour. Creatinine 2.47 today. Magnesium 1.5. He remains in atrial fibrillation with a controlled ventricular rates. Patient states his heart rate is always fast and has been trying in the office to get his heart rate controlled but nothing has been working. He denies feeling any palpitations. PHYSICAL EXAM: VITAL SIGNS: Reviewed. GENERAL: Well-developed in no acute distress. NECK: Supple. No JVD or thyromegaly LUNGS: Respirations even and unlabored. Lungs diminished bilaterally. HEART: irregular rate and rhythm. S1 and S2 heard. Systolic murmur noted. EXTREMITIES: Normal range of motion. No clubbing or cyanosis. Peripheral pulses intact. 2+ bilateral lower extremity edema with Dany wraps noted. ASSESSMENT: Acute on chronic systolic heart failure Lower extremity cellulitis Permanent atrial fibrillation on eliquis Sick sinus syndrome s/p permanent pacemaker implantation Acute on chronic COPD Diabetes mellitus Left bundle branch block Hypertension Acute on chronic kidney disease PLAN: Continue Lasix drip per nephrology Daily weights Accurate I&O Monitor kidney function Continue Toprol-XL to 100 mg. No further adjustments to medications today. Continue telemetry monitoring Replace magnesium Further recommendations pending patient course Nurse practitioner note has been reviewed by physician. Signing provider agrees with the documented findings, assessment, and plan of care. Objective - Vital Signs Vital signs: Vital Signs Temp 97.5 F L 08/09/20 12:13 Pulse 121 H 08/09/20 12:13 Resp 17 08/09/20 12:13 BP 105/60 08/09/20 12:13 Pulse Ox 96 08/09/20 12:13 Intake & Output 08/08/20 08/09/20 08/09/20 18:59 06:59 18:59 Intake Total 438 326 300 Output Total 1500 2650 Balance -1062 -6392 300 Weight 115.6 kg Intake: Intake, IV Titration 100 86 Amount Furosemide 100 mg In 100 86 Sodium Chloride 0.9% 90 ml @ 15 MG/HR 15 mls/hr IV [facility] Rx#: [id number] Oral 338 240 300 Output: Urine 1500 2650 Other: Voiding Method Urinal # Voids 2 - Labs CBC & Chem 7: 08/08/20 07:41 08/09/20 06:56 Labs: Abnormal Lab Results - Last 24 Hours (Table) 08/08/20 08/08/20 08/09/20 Range/Units 17:20 20:03 06:56 Chloride (98-107) mmol/L Carbon Dioxide (22-30) mmol/L BUN (9-20) mg/dL Creatinine (0.66-1.25) mg/dL Glucose (74-99) mg/dL POC Glucose (mg/dL) 339 H 258 H (75-99) mg/dL Magnesium 1.5 L (1.6-2.3) mg/dL 08/09/20 08/09/20 Range/Units 06:56 06:59 Chloride 85 L (98-107) mmol/L Carbon Dioxide 41 H* (22-30) mmol/L BUN 72 H (9-20) mg/dL Creatinine 2.47 H (0.66-1.25) mg/dL Glucose 152 H (74-99) mg/dL POC Glucose (mg/dL) 172 H (75-99) mg/dL Magnesium (1.6-2.3) mg/dL
[2020-08-09 12:31] LABS: Glucose,Whole Blood 197 mg/dL (75-99)
--- NOTE | 2020-08-09 13:25 | P.PN ---
Subjective Progress Note Date: 08/09/20 Follow-up for acute kidney injury. Good urine output net negative of 3.3 L. Objective - Vital Signs Vital signs: Vital Signs Temp 97.5 F L 08/09/20 12:13 Pulse 110 H 08/09/20 13:21 Resp 17 08/09/20 12:13 BP 105/60 08/09/20 12:13 Pulse Ox 96 08/09/20 12:13 Intake & Output 08/08/20 08/09/20 08/09/20 18:59 06:59 18:59 Intake Total 438 326 400 Output Total 1500 2650 800 Balance -1062 -2324 -400 Weight 115.6 kg Intake: Intake, IV Titration 100 86 100 Amount Furosemide 100 mg In 100 86 100 Sodium Chloride 0.9% 90 ml @ 15 MG/HR 15 mls/hr IV .Q6H40M [facility] Rx#: [id number] Oral 338 240 300 Output: Urine 1500 2650 800 Other: Voiding Method Urinal # Voids 2 - Exam No acute distress S1-S2 heard Diminished breath sounds Edema - Labs CBC & Chem 7: 08/08/20 07:41 08/09/20 06:56 Labs: Abnormal Lab Results - Last 24 Hours (Table) 08/08/20 08/08/20 08/09/20 Range/Units 17:20 20:03 06:56 Chloride (98-107) mmol/L Carbon Dioxide (22-30) mmol/L BUN (9-20) mg/dL Creatinine (0.66-1.25) mg/dL Glucose (74-99) mg/dL POC Glucose (mg/dL) 339 H 258 H (75-99) mg/dL Magnesium 1.5 L (1.6-2.3) mg/dL 08/09/20 08/09/20 08/09/20 Range/Units 06:56 06:59 12:09 Chloride 85 L (98-107) mmol/L Carbon Dioxide 41 H* (22-30) mmol/L BUN 72 H (9-20) mg/dL Creatinine 2.47 H (0.66-1.25) mg/dL Glucose 152 H (74-99) mg/dL POC Glucose (mg/dL) 172 H 197 H (75-99) mg/dL Magnesium (1.6-2.3) mg/dL Assessment and Plan Assessment: #1 nonoliguric acute kidney injury secondary to type I CRS. #2 chronic kidney disease stage III secondary to nephrosclerosis with a baseline creatinine of 1.2-1.5 MG per DL. #3 systolic CHF with the EF of 30-35% #4 volume overload #5 hypertension with chronic kidney disease. #6 hypokalemia with metabolic alkalosis secondary to diuretic use Plan: #1 renal function stable continue with Lasix drip, hold metolazone #2 avoid nephrotoxic agents #3 labs in the morning
[2020-08-09] MEDS ORDERED: Potassium Replacement Protocol 1 EACH MISC MISCELLANE PRN (15:46)
[2020-08-09] MEDS ORDERED: Magnesium Replacement Protocol 1 EACH MISC MISCELLANE PRN (15:46)
[2020-08-09 17:39] LABS: Glucose,Whole Blood 98 mg/dL (75-99)
[2020-08-09 20:36] LABS: Glucose,Whole Blood 224 mg/dL (75-99)
[2020-08-10] MEDS: PIPERACILLIN-TAZOBACTAM 3.375 GM in SODIUM CHLORIDE 0.9% 100 ML IVPB SCH ×2 (00:08→09:28)
[2020-08-10] MEDS: HYDROcodone/APAP 10-325MG 1 EACH TAB PO PRN ×2 (00:08→09:29)
[2020-08-10] MEDS: FUROSEMIDE 100 MG in SODIUM CHLORIDE 0.9% 90 ML IV SCH ×2 (00:48→13:35)
[2020-08-10] MEDS: HYDROmorphone 0.5 MG/0.5 ML SYRINGE IVP PRN ×2 (04:54→12:53)
[2020-08-10] MEDS: MIDODRINE 5 MG TAB PO SCH ×3 (06:30→17:48)
[2020-08-10] MEDS: LEVOTHYROXINE 25 MCG TAB PO SCH (06:30)
[2020-08-10] MEDS: PANTOPRAZOLE 40 MG TABLET PO SCH (06:30)
[2020-08-10] MEDS: IPRATROPIUM-ALBUTEROL 3 ML NEB INHALATION SCH ×3 (07:21→16:40)
[2020-08-10 07:34] LABS: Glucose,Whole Blood 313 mg/dL (75-99)
[2020-08-10 08:30] LABS: Calcium 8.9 mg/dL (8.4-10.2); Magnesium 1.8 mg/dL (1.6-2.3); Potassium 4.3 mmol/L (3.5-5.1)
[2020-08-10 08:53] LABS: Basophils # (A) 0.1 k/uL (0-0.2); Basophils % (A) 1 %; Eosinophils # (A) 0.1 k/uL (0-0.7); Eosinophils % (A) 2 %; HCT 32.8 % (39.0-53.0); HGB 10.5 gm/dL (13.0-17.5); Hypochromasia Moderate; Lymphocytes # (A) 1.8 k/uL (1.0-4.8); Lymphocytes % (A) 24 %; MCH 31.4 pg (25.0-35.0); MCHC 32.1 g/dL (31.0-37.0); MCV 97.9 fL (80.0-100.0); Mean Platelet Volume 9.1; Monocytes # (A) 0.6 k/uL (0-1.0); Monocytes % (A) 9 %; Neutrophils # (A) 4.7 k/uL (1.3-7.7); Neutrophils % (A) 64 %; Platelet Count 262 k/uL (150-450); RBC 3.35 m/uL (4.30-5.90); RDW 14.1 % (11.5-15.5); WBC 7.3 k/uL (3.8-10.6)
[2020-08-10] MEDS: INSULIN ASPART (NovoLOG) 100 UNIT/ML VIAL SQ SCH ×6 (09:28→17:48)
[2020-08-10] MEDS: INSULIN DETEMIR (LEVEMIR) 100 UNIT/ML SYR SQ SCH (09:28)
[2020-08-10] MEDS: ASPIRIN 81 MG PO SCH (09:29)
[2020-08-10] MEDS: APIXABAN 2.5 MG TABLET PO SCH (09:29)
[2020-08-10] MEDS: guaiFENesin 600 MG TABLET.ER PO SCH (09:29)
[2020-08-10] MEDS: METOPROLOL SUCCINATE (ER) 100 MG TAB.ER.24H PO SCH (09:29)
[2020-08-10] MEDS: predniSONE 10 MG TAB PO SCH (09:29)
[2020-08-10] MEDS: TAMSULOSIN 0.4 MG CAP.ER.24H PO SCH (09:29)
--- NOTE | 2020-08-10 09:50 | P.PN ---
Subjective Progress Note Date: 08/10/20 Principal diagnosis: Heart failure with reduced ejection fraction/permanent atrial fibrillation This is a 64-year-old gentleman with permanent atrial fibrillation as well as status post permanent pacemaker for sick sinus syndrome as well as renal failure and he was admitted to the hospital with heart failure exacerbation secondary to heart failure with reduced ejection fraction. The patient was seen today. He states "I want to go home". He states his breathing has been better. There were excised his edema is still there and currently both legs are wrapped. No symptoms of chest pain or chest discomfort. Currently he is on Lasix drip. That was discussed with the nephrology service who are going to stop the Lasix drip and switch him to Lasix by mouth. Hemodynamically he is a still slightly tachycardic but unfortunately the pressure has been marginally low. Currently is on Toprol excelled at 100 mg by mouth daily and also he is on oral anticoagulation. Objective - Vital Signs Vital signs: Vital Signs Temp 97.5 F L 08/10/20 05:00 Pulse 120 H 08/10/20 07:32 Resp 19 08/10/20 05:00 BP 84/57 08/10/20 05:00 Pulse Ox 98 08/10/20 05:00 Intake & Output 08/09/20 08/10/20 08/10/20 18:59 06:59 18:59 Intake Total 1030 113.5 Output Total 1600 1625 Balance -570 -1511.5 Weight 110.4 kg Intake: IV 30 20 Invasive Line 5 30 20 Intake, IV Titration 200 93.5 Amount Furosemide 100 mg In 200 93.5 Sodium Chloride 0.9% 90 ml @ 15 MG/HR 15 mls/hr IV .Q6H40M [facility] Rx#: [id number] Oral 800 Output: Urine 1600 1625 Other: Voiding Method Urinal Urinal - Constitutional General appearance: Present: no acute distress - Respiratory Respiratory: bilateral: diminished - Cardiovascular Rhythm: irregularly irregular Heart sounds: normal: S1, S2 - Labs CBC & Chem 7: 08/10/20 07:56 08/10/20 07:54 Labs: Abnormal Lab Results - Last 24 Hours (Table) 08/09/20 08/09/20 08/09/20 Range/Units 06:56 12:09 20:35 RBC (4.30-5.90) m/uL Hgb (13.0-17.5) gm/dL Hct (39.0-53.0) % Sodium (137-145) mmol/L Chloride 85 L (98-107) mmol/L Carbon Dioxide 41 H* (22-30) mmol/L BUN 72 H (9-20) mg/dL Creatinine 2.47 H (0.66-1.25) mg/dL Glucose 152 H (74-99) mg/dL POC Glucose (mg/dL) 197 H 224 H (75-99) mg/dL 08/10/20 08/10/20 08/10/20 Range/Units 07:32 07:54 07:56 RBC 3.35 L (4.30-5.90) m/uL Hgb 10.5 L (13.0-17.5) gm/dL Hct 32.8 L (39.0-53.0) % Sodium 136 L (137-145) mmol/L Chloride 85 L (98-107) mmol/L Carbon Dioxide 42 H* (22-30) mmol/L BUN 74 H (9-20) mg/dL Creatinine 2.54 H (0.66-1.25) mg/dL Glucose 271 H (74-99) mg/dL POC Glucose (mg/dL) 313 H (75-99) mg/dL Assessment and Plan Assessment: Assessment #1 heart failure with reduced ejection fraction exacerbation #2 bilateral lower extremities edema secondary to the above #3 permanent atrial fibrillation with slightly uncontrolled heart rate #4 acute on chronic renal failure #5 multiple comorbid conditions #6 permanent pacemaker implantation Plan #1 continue oral anticoagulation #2 the patient would like to go home #3 continue the current dose of Toprol-XL
[2020-08-10 10:02] VITALS: RESP 18
[2020-08-10 12:34] LABS: Glucose,Whole Blood 67 mg/dL (75-99)
[2020-08-10 12:38] VITALS: BP 96/63; TEMP 97.2
[2020-08-10 12:50] LABS: Glucose,Whole Blood 92 mg/dL (75-99)
[2020-08-10 13:14] LABS: Glucose,Whole Blood 132 mg/dL (75-99)
--- NOTE | 2020-08-10 14:17 | PN ---
PROGRESS NOTE The patient is seen for followup for acute kidney injury on top of chronic kidney disease and volume overload. Currently he is maintained on Lasix drip. He has lost about 5 kg. A 24 hour I's and O's negative 2 L. Overall, patient states he is feeling better. He is requesting to be discharged. PHYSICAL EXAMINATION: On examination today, blood pressure was 94/65 heart rate 121 per minute. He is afebrile. EXAMINATION OF THE HEART: S1, S2. EXAMINATION OF LUNGS: Decreased breath sounds at bases. ABDOMEN: Soft, nontender, obese. Examination of lower extremities shows chronic skin changes. Significant edema. Bilateral extremities are wrapped. TIP BANDER exam grossly intact. LABS: Labs show sodium 136, potassium 4.3, chloride 85, CO2 is 42, serum creatinine 2.54, BUN of 74. ASSESSMENT: 1. Acute kidney injury cardiorenal currently maintained on Lasix drip. I will switch to IV push Lasix. 2. Metabolic alkalosis secondary to diuresis. Add a dose of Diamox today. 3. Congestive heart failure, volume overload, currently improving. 4. Chronic kidney disease stage 3 secondary to nephrosclerosis. Baseline creatinine 1.2-1.5 mg/dL. 5. Congestive heart failure systolic, acute on top of chronic. 6. Cardiomyopathy, ejection fraction 30% to 35%. PLAN: Switch to IV push Lasix. Discontinue Lasix drip. Add Diamox. Repeat labs in a.m. MMAKUAL / KATHYN: [id number] /
[2020-08-10 16:42] VITALS: PULSE 118
[2020-08-10 17:23] LABS: Glucose,Whole Blood 204 mg/dL (75-99)
[2020-08-10] MEDS ORDERED: FUROSEMIDE 10 MG/ML 10 ML VIAL IV SCH (21:00)
[2020-08-10] MEDS ORDERED: acetaZOLAMIDE 250 MG TAB PO SCH (21:00)
--- NOTE | 2020-08-11 07:11 | DS ---
DISCHARGE SUMMARY DATE OF SERVICE: 08/10/2020 FINAL DIAGNOSES: 1. Congestive heart failure acute exacerbation with acute on chronic systolic dysfunction ejection fraction 30-35%. 2. Acute renal failure possibly cardiorenal syndrome with acute on chronic kidney disease. 3. Possible Pseudomonas pneumonia. 4. Chronic kidney disease stage 3, baseline. 5. Hyponatremia. 6. Hypoalbuminemia. 7. Elevated procalcitonin. 8. Anemia, normocytic anemia of chronic disease. 9. Obesity with body mass index of 33.5. 10.Nonischemic cardiomyopathy history. 11.History of bilateral lower skin cellulitis, left more than the right, with grade 2 ulcers. 12.History of ETOH abuse and delirium tremens. 13.History of chronic hypoxic respiratory failure secondary to chronic obstructive pulmonary disease and O2 at 4 L nasal cannula at home. 14.Diabetes mellitus type 2. 15.Hypertension. 16.Hyperlipidemia. 17.Acute on chronic kidney disease stage 3, baseline creatinine 1.1. 18.Hyperglycemia. 19.Possible sleep apnea on CPAP. 20.Paroxysmal atrial fibrillation, on anticoagulation with Eliquis. Considering ablation as outpatient. 21.History of pacemaker placement. 22.History of smoking. 23.Deep vein thrombosis prophylaxis. DISCHARGE DISPOSITION: The patient will be discharged in stable condition with guarded prognosis. Total time taken 35 minutes. HISTORY OF PRESENT ILLNESS: This is a 64-year-old gentleman with a past medical history of multiple medical problems , admitted with acute congestive heart failure exacerbation and multiple other complex medical issues as mentioned. Patient was treated symptomatically. Patient improved significantly. Patient also had Pseudomonas pneumonia treated with antibiotics. Otherwise, the patient also had atrial fibrillation. Cardiology coordinated the treatment and Nephrology also saw the patient. The patient overall improved significantly. PHYSICAL EXAMINATION: On exam, vitals are stable. Cardiovascular S1 and S2. Abdomen soft. Nervous system no deficits. DISCHARGE INSTRUCTIONS: The patient is keen on going home. Patient will be discharged in stable condition with guarded prognosis. Diet is cardiac. Activity limited until followup. Follow up with NH, Dr. Walker to 2-3 days. Follow up with Cardiology as recommended. MEDICATIONS: 1. Eliquis 2.5 mg b.i.d. 2. Flexeril 10 mg p.o. t.i.d. 3. Flomax 0.4 daily. 4. Guaifenesin 400 mg b.i.d. 5. Hy[place] 25 mg p.o. daily. 6. Insulin 40 units subcu daily. 7. Lynx 10 mg q.6 p.r.n. 8. FlexPen as before. 9. Protonix 40 mg p.o. daily. 10.Spiriva 1 puff daily. 11.Synthroid 25 mcg p.o. daily. 12.Zofran p.r.n. 13.Aspirin 81 mg p.o. daily. 14.DuoNeb q.i.d. and p.r.n. 15.Lasix 60 mg p.o. b.i.d. 16.Levaquin 500 mg p.o. daily for 5 days. 17.Prednisone taper. The prednisone will be 10 mg p.o. daily for 30 days. 18.ProAmatine 10 mg a.c. t.i.d. 19.Toprol-XL 100 mg p.o. daily. Once again the patient will be discharged in stable condition with guarded prognosis. MMAKUAL / KATHYN: [id number] /
== END 2020-08-10 18:14 | disposition home health service (06) | DRG 291 ==
LOC: EC 10:29 → 3SCARD 11:57
PROVIDERS: ADMIT Internal Medicine; ATTEND Internal Medicine
DX: I13.0 Hypertensive heart and chronic kidney disease with heart failure and stage 1 through stage 4 chronic kidney disease, or unspecified chronic kidney disease (principal); I50.23 Acute on chronic systolic (congestive) heart failure; J96.21 Acute and chronic respiratory failure with hypoxia; J15.1 Pneumonia due to Pseudomonas; N17.9 Acute kidney failure, unspecified; E87.3 Alkalosis; L97.922 Non-pressure chronic ulcer of unspecified part of left lower leg with fat layer exposed; L97.919 Non-pressure chronic ulcer of unspecified part of right lower leg with unspecified severity; L03.116 Cellulitis of left lower limb; L03.115 Cellulitis of right lower limb; E87.1 Hypo-osmolality and hyponatremia; E11.649 Type 2 diabetes mellitus with hypoglycemia without coma; I27.20 Pulmonary hypertension, unspecified; I49.5 Sick sinus syndrome; D63.1 Anemia in chronic kidney disease; I95.9 Hypotension, unspecified; E11.22 Type 2 diabetes mellitus with diabetic chronic kidney disease; I42.8 Other cardiomyopathies; E11.628 Type 2 diabetes mellitus with other skin complications; E11.40 Type 2 diabetes mellitus with diabetic neuropathy, unspecified; E11.622 Type 2 diabetes mellitus with other skin ulcer; N18.30 Chronic kidney disease, stage 3 unspecified; E11.65 Type 2 diabetes mellitus with hyperglycemia; J43.9 Emphysema, unspecified; Z20.822 Contact with and (suspected) exposure to COVID-19; I48.0 Paroxysmal atrial fibrillation; Z79.4 Long term (current) use of insulin; I34.0 Nonrheumatic mitral (valve) insufficiency; G47.33 Obstructive sleep apnea (adult) (pediatric); E78.5 Hyperlipidemia, unspecified; K21.9 Gastro-esophageal reflux disease without esophagitis; I45.10 Unspecified right bundle-branch block; E88.09 Other disorders of plasma-protein metabolism, not elsewhere classified; E87.6 Hypokalemia; T50.2X5A Adverse effect of carbonic-anhydrase inhibitors, benzothiadiazides and other diuretics, initial encounter; J32.9 Chronic sinusitis, unspecified; K57.90 Diverticulosis of intestine, part unspecified, without perforation or abscess without bleeding; E66.9 Obesity, unspecified; Z68.33 Body mass index [BMI] 33.0-33.9, adult; F10.11 Alcohol abuse, in remission; Z99.81 Dependence on supplemental oxygen; Z79.01 Long term (current) use of anticoagulants; Z79.890 Hormone replacement therapy; Z79.899 Other long term (current) drug therapy; Z86.718 Personal history of other venous thrombosis and embolism; Z90.49 Acquired absence of other specified parts of digestive tract; Z87.19 Personal history of other diseases of the digestive system; Z87.2 Personal history of diseases of the skin and subcutaneous tissue; Z95.0 Presence of cardiac pacemaker; Z87.891 Personal history of nicotine dependence; Z86.59 Personal history of other mental and behavioral disorders; Z71.41 Alcohol abuse counseling and surveillance of alcoholic; Z71.3 Dietary counseling and surveillance; Z98.890 Other specified postprocedural states; Z83.49 Family history of other endocrine, nutritional and metabolic diseases; Z83.79 Family history of other diseases of the digestive system
CPT/HCPCS: 36415; 71045; 76770; 80048; 80053; 81003; 83605; 83735; 83880; 84132; 84145; 84443; 84484; 85025; 85610; 85730; 87070; 87077; 87186; 87205; 87635; 93005; 93306; 94640; 94660; 99285

== ENCOUNTER 2020-08-20 13:36 | Inpatient (IN) | payer OTHER, MEDICARE ==
[2020-08-20] MEDS ORDERED: IPRATROPIUM-ALBUTEROL 3 ML NEB INHALATION STA (13:43)
[2020-08-20] MEDS ORDERED: methylPREDNISolone SOD SUCCI 125 MG/2 ML VIAL IV STA (13:43)
--- NOTE | 2020-08-20 13:51 | ED ---
General Adult HPI - General Stated complaint: Respiratory distress Time Seen by Provider: 08/20/20 13:40 Source: patient, EMS, RN notes reviewed Mode of arrival: EMS Limitations: physical limitation - History of Present Illness Initial comments: Patient is a pleasant 64-year-old male presenting to the emergency department with respiratory distress by EMS. Patient was placed on nonrebreather with O2 sat of 80%. Patient is able to speak one to 2 word sentences. Onset of symp toms was a couple of days ago and has progressed. Symptoms are similar to previous COPD. Occasional cough. No fevers. No chest pain. No leg pain or leg swelling. - Related Data Home Medications Medication Instructions Recorded Confirmed Tamsulosin [Flomax] 0.4 mg PO DAILY 06/23/16 08/20/20 HYDROcodone/APAP 10-325MG [[place] 1 tab PO Q6H PRN 09/06/17 08/20/20 10-325] Cyclobenzaprine [Flexeril] 10 mg PO TID PRN 09/30/18 08/20/20 Ondansetron HCl [Zofran] 4 mg PO BID PRN 09/30/18 08/20/20 Apixaban [Eliquis] 2.5 mg PO BID 01/11/19 08/20/20 Pantoprazole [Protonix] 40 mg PO DAILY 01/11/19 08/20/20 guaiFENesin 400 mg PO BID 01/11/19 08/20/20 Chlorthalidone [Hygroton] 25 mg PO DAILY 08/02/20 08/20/20 Insulin Aspart [NovoLOG Flexpen] See Protocol SQ AC-TID 08/02/20 08/20/20 Insulin Glargine,Hum.rec.anlog 40 unit SQ DAILY 08/02/20 08/20/20 [Lantus Solostar] Levothyroxine Sodium [Synthroid] 25 mcg PO DAILY 08/02/20 08/20/20 Tiotropium 18 Mcg/Puff [Spiriva] 2 puff INHALATION RT-DAILY 08/02/20 08/20/20 Previous Rx's Medication Instructions Recorded Aspirin 81 mg PO DAILY 30 Days #30 chew 08/10/20 Furosemide [Lasix] 60 mg PO BID 14 Days #84 tab 08/10/20 Ipratropium-Albuterol Nebulize 3 ml INHALATION RT-Q4H PRN ml 08/10/20 [Duoneb 0.5 mg-3 mg/3 ml Soln] Ipratropium-Albuterol Nebulize 3 ml INHALATION RT-QID #120 ml 08/10/20 [Duoneb 0.5 mg-3 mg/3 ml Soln] Metoprolol Succinate (ER) [Toprol 100 mg PO DAILY 30 Days #30 08/10/20 XL] tab.er.24h Midodrine [ProAmatine] 10 mg PO AC-TID 30 Days #90 tab 08/10/20 predniSONE 10 mg PO DAILY 30 Days #30 tab 08/10/20 Allergies Allergy/AdvReac Type Severity Reaction Status Date / Time No Known Allergies Allergy Verified 08/20/20 14:50 Review of Systems ROS Statement: Those systems with pertinent positive or pertinent negative responses have been documented in the HPI. ROS Other: All systems not noted in ROS Statement are negative. Constitutional: Denies: fever Eyes: Denies: eye pain ENT: Denies: ear pain Respiratory: Reports: cough, dyspnea Cardiovascular: Denies: chest pain Endocrine: Reports: fatigue Gastrointestinal: Denies: abdominal pain Genitourinary: Denies: urgency Musculoskeletal: Denies: back pain Skin: Reports: other (Chronic leg sores) Neurological: Denies: weakness Past Medical History Past Medical History: Atrial Fibrillation, Heart Failure, COPD, Diabetes Mellitus, Deep Vein Thrombosis (DVT), GERD/Reflux, Hyperlipidemia, Hypertension, Sleep Apnea/CPAP/BIPAP Additional Past Medical History / Comment(s): Chronic hypoxic respiratory failure and the patient OXYGEN dependent 5 L, previous history of left-sided pneumothorax requiring a Thoravent insertion, IDDM type II, paroxysmal AFIB, alcoholism, diverticulosis, obstuctive sleep apnea but no Cpap since wt loss, sinusitis, neuropathy bilateral feet History of Any Multi-Drug Resistant Organisms: None Reported Past Surgical History: Appendectomy, Cholecystectomy, Heart Catheterization Additional Past Surgical History / Comment(s): colonoscopy x 3, eyelid surgery bilaterally,partial liver removed,lysis of adhesions Past Anesthesia/Blood Transfusion Reactions: Postoperative Nausea & Vomiting (PONV) Additional Past Anesthesia/Blood Transfusion Reaction / Comment(s): Pt states he has had PONV with gas only. Past Psychological History: Anxiety, Depression, Panic Disorder Additional Psychological History / Comment(s): He uses no assistive device. He drives. Past Alcohol Use History: Occasional Additional Past Alcohol Use History / Comment(s): Hx of alcoholism. He has hx of DTs. Past Drug Use History: None Reported Additional Drug Use History / Comment(s): Pt states in the 1970's and 1979's he used a variety of drugs (unable to state which ones) but has not used any since. - Past Family History Mother Family Medical History: Thyroid Disorder Additional Family Medical History / Comment(s): . Father Additional Family Medical History / Comment(s): Father of diverticulitis,peritonitis at the age of 35yrs. General Exam Limitations: no limitations General appearance: alert, in distress Head exam: Present: normocephalic Eye exam: Present: normal appearance Neck exam: Present: normal inspection Respiratory exam: Present: respiratory distress, wheezes, accessory muscle use, decreased breath sounds Cardiovascular Exam: Present: tachycardia GI/Abdominal exam: Present: soft. Absent: tenderness Extremities exam: Present: normal inspection. Absent: pedal edema, calf tenderness Neurological exam: Present: alert Psychiatric exam: Present: normal affect, normal mood Skin exam: Present: cyanosis Course Vital Signs 08/20/20 08/20/20 08/20/20 13:40 14:01 14:10 Temperature 98.7 F Pulse Rate 120 H 112 H 120 H Respiratory 26 H 23 22 Rate Blood Pressure 107/95 O2 Sat by Pulse 94 L Oximetry EKG Findings - EKG Comments: EKG Findings:: Sinus area 129. WI 184. QRS 138. QT 300. QTc 439. Left axis. Right bundle branch block. No acute ST change. Medical Decision Making - Medical Decision Making Patient reevaluated and updated. Patient is improved with BiPAP. Dr. Wyman has been paged for admission of this va Patient. Pulmonary will be placed on consult. Case was discussed in detail with Dr. Burns, who will admit. - Lab Data Result diagrams: 08/20/20 13:56 08/20/20 13:56 Lab Results 08/20/20 08/20/20 08/20/20 Range/Units 13:56 13:56 13:56 WBC 4.9 (3.8-10.6) k/uL RBC 3.69 L (4.30-5.90) m/uL Hgb 11.5 L (13.0-17.5) gm/dL Hct 34.4 L (39.0-53.0) % MCV 93.4 (80.0-100.0) fL MCH 31.1 (25.0-35.0) pg MCHC 33.3 (31.0-37.0) g/dL RDW 14.2 (11.5-15.5) % MPV 9.2 Hypochromasia Slight PT 11.3 (9.0-12.0) sec INR 1.1 (<1.2) APTT 30.8 H (22.0-30.0) sec Sodium 134 L (137-145) mmol/L Potassium 4.8 (3.5-5.1) mmol/L Chloride 84 L (98-107) mmol/L Carbon Dioxide 44 H* (22-30) mmol/L Anion Gap 6 mmol/L BUN 60 H (9-20) mg/dL Creatinine 1.73 H (0.66-1.25) mg/dL Est GFR (CKD-EPI)AfAm 48 (>60 ml/min/1.73 sqM) Est GFR (CKD-EPI)NonAf 41 (>60 ml/min/1.73 sqM) Glucose 87 (74-99) mg/dL Plasma Lactic Acid Stone (0.7-2.0) mmol/L Calcium 8.6 (8.4-10.2) mg/dL Magnesium 1.7 (1.6-2.3) mg/dL Total Bilirubin 0.8 (0.2-1.3) mg/dL AST 47 (17-59) U/L ALT 12 (4-49) U/L Alkaline Phosphatase 59 (38-126) U/L Lactate Dehydrogenase 618 (313-618) U/L Total Protein 6.4 (6.3-8.2) g/dL Albumin 3.7 (3.5-5.0) g/dL Coronavirus (PCR) (Not Detectd) 08/20/20 08/20/20 Range/Units 13:56 13:58 WBC (3.8-10.6) k/uL RBC (4.30-5.90) m/uL Hgb (13.0-17.5) gm/dL Hct (39.0-53.0) % MCV (80.0-100.0) fL MCH (25.0-35.0) pg MCHC (31.0-37.0) g/dL RDW (11.5-15.5) % MPV Hypochromasia PT (9.0-12.0) sec INR (<1.2) APTT (22.0-30.0) sec Sodium (137-145) mmol/L Potassium (3.5-5.1) mmol/L Chloride (98-107) mmol/L Carbon Dioxide (22-30) mmol/L Anion Gap mmol/L BUN (9-20) mg/dL Creatinine (0.66-1.25) mg/dL Est GFR (CKD-EPI)AfAm (>60 ml/min/1.73 sqM) Est GFR (CKD-EPI)NonAf (>60 ml/min/1.73 sqM) Glucose (74-99) mg/dL Plasma Lactic Acid Stone 1.7 (0.7-2.0) mmol/L Calcium (8.4-10.2) mg/dL Magnesium (1.6-2.3) mg/dL Total Bilirubin (0.2-1.3) mg/dL AST (17-59) U/L ALT (4-49) U/L Alkaline Phosphatase (38-126) U/L Lactate Dehydrogenase (313-618) U/L Total Protein (6.3-8.2) g/dL Albumin (3.5-5.0) g/dL Coronavirus (PCR) Detected A (Not Detectd) - Radiology Data Radiology results: image reviewed (Daily shows diffuse interstitial pattern, The Right Side.) Critical Care Time Critical Care Time: Yes Total Critical Care Time: 31 Disposition Clinical Impression: Acute respiratory failure, Pneumonia due to COVID-19 virus, Renal insufficiency Disposition: ADMITTED IP TO THIS HOSP Condition: Serious Is patient prescribed a controlled substance at d/c from ED?: No Referrals: [facility],Clinic [Primary Care Provider] - 1-2 days Decision Time: 14:50
--- NOTE | 2020-08-20 14:05 | XR ---
EXAMINATION TYPE: XR chest 1V portable DATE OF EXAM: 08/20/2020 COMPARISON: Chest x-ray 08/05/2020 HISTORY: Suspected Covid 19 pneumonia TECHNIQUE: Single frontal view of the chest is obtained. FINDINGS: Bilateral airspace disease is present greater on the right in the upper lobe. No pneumotho rax or pleural effusion. Cardiac mediastinal silhouette is stable, heart is enlarged. Aorta is dense. There is a generator in the left pectoral region, leads are present in the right atrium and ventricl e. There are overlying artifacts. IMPRESSION: Correlate for pneumonia, edema not excluded, follow-up suggested. Accentuated heart size may be at least in part due to technique.
[2020-08-20 14:21] LABS: Basophils # (A) 0.1 k/uL (0-0.2); Basophils % (A) 2 %; Eosinophils % (A) 0 %; HCT 34.4 % (39.0-53.0); HGB 11.5 gm/dL (13.0-17.5); Hypochromasia Slight; Lymphocytes # (A) 0.6 k/uL (1.0-4.8); Lymphocytes % (A) 12 %; MCH 31.1 pg (25.0-35.0); MCHC 33.3 g/dL (31.0-37.0); MCV 93.4 fL (80.0-100.0); Mean Platelet Volume 9.2; Monocytes # (A) 0.5 k/uL (0-1.0); Monocytes % (A) 11 %; Neutrophils # (A) 3.6 k/uL (1.3-7.7); Neutrophils % (A) 75 %; RBC 3.69 m/uL (4.30-5.90); RDW 14.2 % (11.5-15.5); WBC 4.9 k/uL (3.8-10.6)
[2020-08-20 14:32] LABS: INR 1.1 (<1.2); Partial Thromboplastin Time 30.8 sec (22.0-30.0); Prothrombin Time 11.3 sec (9.0-12.0)
[2020-08-20 14:36] LABS: Potassium 4.8 mmol/L (3.5-5.1)
[2020-08-20 14:39] LABS: Albumin 3.7 g/dL (3.5-5.0); Calcium 8.6 mg/dL (8.4-10.2); Magnesium 1.7 mg/dL (1.6-2.3); Total Bilirubin 0.8 mg/dL (0.2-1.3); Total Protein 6.4 g/dL (6.3-8.2)
[2020-08-20] MEDS ORDERED: NALOXONE 0.4 MG/ML 1 ML VIAL IV PRN (14:52)
[2020-08-20] MEDS ORDERED: ENOXAPARIN 40 MG/0.4 ML SYRINGE SQ SCH (15:00)
[2020-08-20] MEDS ORDERED: DEXAMETHASONE SOD PHOSPHATE 10 MG/ML 1 ML VIAL IV SCH (15:00)
[2020-08-20 15:07] LABS: Platelet Count 102 k/uL (150-450)
[2020-08-20 15:13] LABS: C Reactive Protein 178.5 mg/L (<10.0)
[2020-08-20] MEDS: ZINC SULFATE 220 MG CAP PO SCH (15:47)
[2020-08-20] MEDS: CHOLECALCIFEROL 25 MCG (1000 IU) TABLET PO SCH (15:47)
[2020-08-20 17:06] LABS: Glucose,Whole Blood 133 mg/dL (75-99)
[2020-08-20] MEDS: SODIUM CHLORIDE 0.9% 1,000 ML IV SCH (17:39)
[2020-08-20] MEDS ORDERED: ALBUTEROL NEBULIZED 2.5 MG/3 ML INHALATION PRN (20:12)
--- NOTE | 2020-08-20 20:59 | P.HPIM ---
History of Present Illness H&P Date: 08/20/20 Chief Complaint: Shortness of breath Patient is a 64-year-old male with a known history of atrial fibrillation on anticoagulation with Eliquis, history of pacemaker placement due to SSS, chronic CHF with systolic dysfunction ejection fraction 35%, COPD on home oxygen 5 L via nasal cannula, hypertension, diabetes type 2 [id number], obstructive sleep apnea, previous history of alcohol abuse/DTs, BPH, CKD stage III, bilateral lower extremity peripheral neuropathy and previous history of smoking other multiple medical problems presents to ER with complaints of worsening shortness of breath for the past 2 to 3 days. Patient was presents to ER due to respiratory distress by EMS. Patient was placed on 9% nonrebreather and was saturating at 80%. Patient was started on BiPAP while in the ER. Otherwise patient has been afebrile. No complaints of nausea vomiting or abdominal pain or diarrhea. Laboratory data showed blood pressure 107/95 respiration 26 pulse is 120 and 100% nonrebreather on admission. Laboratory data showed WBC 4.9 hemoglobin 11.5 platelets 102 chloride 84 sodium 134 bicarb 44 BUN 16 creatinine 1.73 and Troponin 0 0.056, CRP 178 and coronavirus PCR detected. Chest x-ray showed correlate for pneumonia. Edema not excluded. Follow-up suggested. Patient was recently discharged admitted to the hospital from 08/02/2020 to 08/10/2020 Review of Systems Complete review of systems could not be obtained from the patient except as per HPI due to patient being on BiPAP. Past Medical History Past Medical History: Atrial Fibrillation, Heart Failure, COPD, Diabetes Mellitus, Deep Vein Thrombosis (DVT), GERD/Reflux, Hyperlipidemia, Hypertension, Pneumonia, Renal Disease, Respiratory Disorder, Skin Disorder, Sleep Apnea/CPAP/BIPAP, Vascular Disorder Additional Past Medical History / Comment(s): Pt recently admitted to [facility] on 08/02/20 with chf/acute on chronic renal disease, possible pneumonia. Pt tested covic+ on 08/20/20 at [facility] ER. Other hx: Chronic hypoxic respiratory failure and the patient OXYGEN dependent 5 L, previous history of left-sided pneumothorax requiring a Thoravent insertion, IDDM type II, paroxysmal AFIB, SSS with pacer, nonischemic cardiomyopathy, past alcoholism/DTs, diverticulosis, obstuctive sleep apnea but no Cpap since wt loss, sinusitis, neuropathy bilateral feet, elevated LFTs, BPH, CKD stag III, DVT R leg, hypomagnesemia, hypoalbuminemia, anemia, protein calorie malnutrition, PVD, current sores bilateral feet. History of Any Multi-Drug Resistant Organisms: None Reported Past Surgical History: Appendectomy, Cholecystectomy, Heart Catheterization, Pacemaker Additional Past Surgical History / Comment(s): Partial liver removed d/t adhesions, colonoscopies, bilateral eyes blepharoplasties, pacer Past Anesthesia/Blood Transfusion Reactions: Postoperative Nausea & Vomiting (PONV) Additional Past Anesthesia/Blood Transfusion Reaction / Comment(s): Pt states he has had PONV with gas only. Type of Cardiac Device: Permanent Pacemaker Device Placement Date:: 2017 Smoking Status: Former smoker - Past Family History Mother Family Medical History: Thyroid Disorder Additional Family Medical History / Comment(s): . Father Additional Family Medical History / Comment(s): Father of diverticulitis,peritonitis at the age of 35yrs. Medications and Allergies Home Medications Medication Instructions Recorded Confirmed Type Tamsulosin [Flomax] 0.4 mg PO DAILY 06/23/16 08/20/20 History HYDROcodone/APAP 10-325MG [[place] 1 tab PO Q6H PRN 09/06/17 08/20/20 History 10-325] Cyclobenzaprine [Flexeril] 10 mg PO TID PRN 09/30/18 08/20/20 History Ondansetron HCl [Zofran] 4 mg PO BID PRN 09/30/18 08/20/20 History Apixaban [Eliquis] 2.5 mg PO BID 01/11/19 08/20/20 History Pantoprazole [Protonix] 40 mg PO DAILY 01/11/19 08/20/20 History guaiFENesin 400 mg PO BID 01/11/19 08/20/20 History Chlorthalidone [Hygroton] 25 mg PO DAILY 08/02/20 08/20/20 History Insulin Aspart [NovoLOG Flexpen] See Protocol SQ AC-TID 08/02/20 08/20/20 History Insulin Glargine,Hum.rec.anlog 40 unit SQ DAILY 08/02/20 08/20/20 History [Lantus Solostar] Levothyroxine Sodium [Synthroid] 25 mcg PO DAILY 08/02/20 08/20/20 History Tiotropium 18 Mcg/Puff [Spiriva] 2 puff INHALATION RT-DAILY 08/02/20 08/20/20 History Aspirin 81 mg PO DAILY 30 Days #30 chew 08/10/20 08/20/20 Rx Furosemide [Lasix] 60 mg PO BID 14 Days #84 tab 08/10/20 08/20/20 Rx Ipratropium-Albuterol Nebulize 3 ml INHALATION RT-Q4H PRN ml 08/10/20 08/20/20 Rx [Duoneb 0.5 mg-3 mg/3 ml Soln] Ipratropium-Albuterol Nebulize 3 ml INHALATION RT-QID #120 ml 08/10/20 08/20/20 Rx [Duoneb 0.5 mg-3 mg/3 ml Soln] Metoprolol Succinate (ER) [Toprol 100 mg PO DAILY 30 Days #30 08/10/20 08/20/20 Rx XL] tab.er.24h Midodrine [ProAmatine] 10 mg PO AC-TID 30 Days #90 tab 08/10/20 08/20/20 Rx predniSONE 10 mg PO DAILY 30 Days #30 tab 08/10/20 08/20/20 Rx Allergies Allergy/AdvReac Type Severity Reaction Status Date / Time No Known Allergies Allergy Verified 08/20/20 14:50 Physical Exam Vitals: Vital Signs Temp Pulse Pulse Resp BP BP Pulse Ox 08/20/20 16:40 97.7 F 110 H 22 135/68 96 08/20/20 15:52 113 H 22 106/59 94 L 08/20/20 14:10 120 H 22 08/20/20 14:01 112 H 23 08/20/20 13:43 96 08/20/20 13:40 98.7 F 120 H 26 H 107/95 94 L Intake and Output 08/20/20 08/20/20 08/20/20 06:59 14:59 22:59 Other: Weight 106.141 kg 106.141 kg PHYSICAL EXAMINATION: Patient is lying in the bedHe appears to be in distress due to shortness of breath and is currently on BiPAP., awake alert and oriented.. HEENT: Normocephalic. Neck is supple. Pupils reactive. Nostrils clear. Oral cavity is moist. Ears reveal no drainage. Neck reveals no JVD, carotid bruits, or thyromegaly. CHEST EXAMINATION: Trachea is central. Symmetrical expansion.Bibasilar dimini shed air entry and mild expiratory wheeze . CARDIAC: Normal S1, S2 with no gallops. No murmurs ABDOMEN: Soft. Bowel sounds normal. No organomegaly. No abdominal bruits. Extremities: 2+ edema. leg wounds /sores . No clubbing or cyanosis Neurologically awake, alert, oriented x3 with well-coordinated movements. No focal deficits noted Skin: No rash or skin lesions. Psychiatric: Coperative. Nonsuicidal Musculoskeletal: No joint swelling or deformity. Normal range of motion. Results CBC & Chem 7: 08/20/20 13:56 08/20/20 13:56 Labs: Abnormal Lab Results - Last 24 Hours (Table) 08/20/20 08/20/20 08/20/20 Range/Units 13:56 13:56 13:56 RBC 3.69 L (4.30-5.90) m/uL Hgb 11.5 L (13.0-17.5) gm/dL Hct 34.4 L (39.0-53.0) % Plt Count 102 L D (150-450) k/uL Lymphocytes # 0.6 L (1.0-4.8) k/uL APTT 30.8 H (22.0-30.0) sec Sodium 134 L (137-145) mmol/L Chloride 84 L (98-107) mmol/L Carbon Dioxide 44 H* (22-30) mmol/L BUN 60 H (9-20) mg/dL Creatinine 1.73 H (0.66-1.25) mg/dL POC Glucose (mg/dL) (75-99) mg/dL Troponin I (0.000-0.034) ng/mL C-Reactive Protein 178.5 H (<10.0) mg/L Coronavirus (PCR) (Not Detectd) 08/20/20 08/20/20 08/20/20 Range/Units 13:56 13:58 17:04 RBC (4.30-5.90) m/uL Hgb (13.0-17.5) gm/dL Hct (39.0-53.0) % Plt Count (150-450) k/uL Lymphocytes # (1.0-4.8) k/uL APTT (22.0-30.0) sec Sodium (137-145) mmol/L Chloride (98-107) mmol/L Carbon Dioxide (22-30) mmol/L BUN (9-20) mg/dL Creatinine (0.66-1.25) mg/dL POC Glucose (mg/dL) 133 H (75-99) mg/dL Troponin I 0.056 H* (0.000-0.034) ng/mL C-Reactive Protein (<10.0) mg/L Coronavirus (PCR) Detected A (Not Detectd) Thrombosis Risk Factor Assmnt - Choose All That Apply Any of the Below Risk Factors Present?: Yes Each Factor Represents 1 point: Abnormal pulmonary function (COPD), Medical pt on bed rest, Obesity (BMI >25), Serious lung disease incl. pneumonia (< 1month) Other Risk Factors: Yes Each Risk Factor Represents 2 Points: Age 61-74 years, Patient confined to bed Each Risk Factor Represents 3 Points: History of DVT/PE Other congenital or acquired thrombophilia - If yes, enter type in comment: No Thrombosis Risk Factor Assessment Total Risk Factor Score: 11 Thrombosis Risk Factor Assessment Level: High Risk Assessment and Plan Assessment: Acute COVID-19 pneumonia Acute on chronic hypoxic and hypercapnic respiratory failure due to Covid pneumonia with underlying COPD Chronic hypoxic respiratory failure secondary to COPD on 5 L. On prednisone 20 mg daily oxygen via nasal cannula at home. Chronic CHF with systolic dysfunction ejection fraction 35% Nonischemic cardiomyopathy acute on chronic kidney disease stage III with baseline creatinine 1.1. 1.71 on admission Bilateral lower extremity swelling history of alcohol abuse and DTs Diabetes type 2 insulin-dependent Hypertension Hyperlipidemia Obstructive sleep apnea not on CPAP at home Permanent atrial fibrillation on anticoagulation with Eliquis. Considering ablation as an outpatient. Status post pacemaker placement. Patient history of smoking DVT prophylaxis patient is already on Eliquis. Plan: Patient is currently on BiPAP. Was given IV Solu-Medrol 125 mg x 1. Patient will be continued on 60mg Q6 and multivitamins and Eliquis. Follow-up inflammatory markers. Patient may be a candidate for remdesivir course. Continue with midodrine and Lasix dose as blood pressure tolerated. c/w tele Pulmonary was consulted. Continue to follow closely. Monitor renal function. Prognosis guarded at this time.. Time with Patient: Greater than 30
[2020-08-20 21:08] LABS: Glucose,Whole Blood 146 mg/dL (75-99)
[2020-08-20] MEDS: FUROSEMIDE 20 MG TAB PO SCH (22:30)
[2020-08-20] MEDS: FAMOTIDINE 20 MG/2 ML VIAL IV SCH (22:31)
[2020-08-20] MEDS: guaiFENesin 600 MG TABLET.ER PO SCH (22:31)
[2020-08-20] MEDS: APIXABAN 2.5 MG TABLET PO SCH (22:31)
[2020-08-20] MEDS: ASCORBIC ACID 500 MG TAB PO SCH (22:31)
[2020-08-20] MEDS: methylPREDNISolone SOD SUCCI 125 MG/2 ML VIAL IV SCH (23:57)
[2020-08-21 03:16] LABS: Ferritin 1024.9 ng/mL (22.0-322.0)
[2020-08-21] MEDS ORDERED: ONDANSETRON 4 MG/2 ML VIAL IVP PRN (04:33)
[2020-08-21] MEDS: ACETAMINOPHEN TAB 325 MG TAB PO PRN ×2 (05:29→10:52)
[2020-08-21 06:33] LABS: Glucose,Whole Blood 232 mg/dL (75-99)
[2020-08-21] MEDS: methylPREDNISolone SOD SUCCI 125 MG/2 ML VIAL IV SCH ×4 (06:43→22:38)
[2020-08-21] MEDS: LEVOTHYROXINE 25 MCG TAB PO SCH (06:44)
[2020-08-21] MEDS: MIDODRINE 5 MG TAB PO SCH ×3 (06:44→17:16)
[2020-08-21] MEDS: INSULIN ASPART (NovoLOG) 100 UNIT/ML VIAL SQ SCH ×4 (06:44→20:10)
[2020-08-21 08:41] LABS: Basophils % (A) 0 %; Eosinophils % (A) 1 %; HCT 28.2 % (39.0-53.0); Hypochromasia Slight; Lymphocytes # (A) 0.4 k/uL (1.0-4.8); Lymphocytes % (A) 25 %; MCH 30.9 pg (25.0-35.0); MCHC 32.9 g/dL (31.0-37.0); Mean Platelet Volume 8.6; Monocytes # (A) 0.1 k/uL (0-1.0); Monocytes % (A) 6 %; Neutrophils % (A) 67 %; RDW 14.2 % (11.5-15.5); WBC 1.5 k/uL (3.8-10.6)
[2020-08-21 08:42] LABS: HGB 9.3 gm/dL (13.0-17.5)
[2020-08-21 08:43] LABS: Potassium 4.1 mmol/L (3.5-5.1)
[2020-08-21 08:53] LABS: C Reactive Protein 130.2 mg/L (<10.0)
[2020-08-21] MEDS: ALBUTEROL HFA INHALER INHALATION SCH ×4 (09:09→19:08)
[2020-08-21] MEDS: INSULIN DETEMIR (LEVEMIR) 100 UNIT/ML SYR SQ SCH (10:09)
[2020-08-21] MEDS: FUROSEMIDE 20 MG TAB PO SCH ×2 (10:51→17:16)
[2020-08-21] MEDS: PANTOPRAZOLE 40 MG/10 ML VIAL IV SCH (10:51)
[2020-08-21] MEDS: FAMOTIDINE 20 MG/2 ML VIAL IV SCH ×2 (10:51→19:59)
[2020-08-21] MEDS: CHOLECALCIFEROL 25 MCG (1000 IU) TABLET PO SCH (10:51)
[2020-08-21] MEDS: ZINC SULFATE 220 MG CAP PO SCH (10:52)
[2020-08-21] MEDS: guaiFENesin 600 MG TABLET.ER PO SCH ×2 (10:52→19:59)
[2020-08-21] MEDS: METOPROLOL SUCCINATE (ER) 100 MG TAB.ER.24H PO SCH (10:52)
[2020-08-21] MEDS: TAMSULOSIN 0.4 MG CAP.ER.24H PO SCH (10:52)
[2020-08-21] MEDS: ASPIRIN 81 MG PO SCH (10:52)
[2020-08-21] MEDS: ASCORBIC ACID 500 MG TAB PO SCH ×2 (10:52→19:59)
[2020-08-21] MEDS: APIXABAN 2.5 MG TABLET PO SCH ×2 (10:53→19:59)
[2020-08-21] MEDS: SODIUM CHLORIDE 0.9% 1,000 ML IV SCH (10:56)
[2020-08-21 12:02] LABS: Glucose,Whole Blood 213 mg/dL (75-99)
[2020-08-21] MEDS: TIOTROPIUM 2.5 MCG INHALER INHALATION SCH (12:32)
--- NOTE | 2020-08-21 12:58 | XR ---
EXAMINATION TYPE: XR chest 1V DATE OF EXAM: 08/21/2020 COMPARISON: 08/20/2020 HISTORY: Abnormal x-ray TECHNIQUE: Single frontal view of the chest is obtained. FINDINGS: Bilateral infiltrate greater within the right upper lobe correlate for multifocal pneumoni a. Underlying COPD noted. Heart size stable. Cardiac device noted with no sizable pneumothorax. IMPRESSION: Multifocal pneumonia is stable.
--- NOTE | 2020-08-21 13:02 | P.CNPUL ---
History of Present Illness Consult date: 08/21/20 Reason for consult: dyspnea, COPD, pneumonia History of present illness: 64-year-old male patient, came into the hospital because of worsening shortness of breath a few days duration. He was brought in via EMS. He was having oxygen desaturation. The patient in the emergency was started on BiPAP treatment. His wbc was 1.5 and a d-dimer was 0.4 with a creatinine of 1.6 and a sodium level of 134. His LDH level was 1024 at the CRP level was 178. The patient's troponin level was 0.05 and the propofol level was 0.4. The chest x-ray showed bilateral airspace disease right more than left more so in the right upper lobe. For now, the patient is still on a BiPAP at 14/6 with an FiO2 of 50%. He is currently on IV Solu-Medrol 60 mg every 6 hours. He is on long-term anticoagulation with Eliquis 2.5 mg by mouth twice a day. He is also on Spiriva and albuterol HFA regarding his COPD. Is taking Levemir insulin 40 units along with a NovoLog sliding scale coverage. While in the BiPAP, the patient is able to generate tidal volumes of 100 mL with a rate of 20. He has a full face mask and is able to tolerate the treatment without any major difficulties with an FiO2 of 50%.Note that the patient was in the hospital on 08/02/2020 and the patient was Hospital as for CHF, lower extremity edema and a component of COPD exacerbation. Back then, his COVID-19 testing was negative. Review of Systems onstitutional: Reports lethargy, Reports weakness Eyes: denies blurred vision, denies bulging eye, denies decreased vision Ears: deny: decreased hearing, ear discharge, earache, tinnitus Ears, nose, mouth and throat: Denies headache, Denies sore throat Cardiovascular: Reports chest pain, Reports decreased exercise tolerance, Reports dyspnea on exertion, Reports shortness of breath, increased swelling in lower extremities bilaterally and chronic wounds in lower extremities bilateral ly which are not infected at this point in time. Respiratory: Reports cough, Reports dyspnea, Reports wheezing Gastrointestinal: Reports as per HPI Genitourinary: Reports as per HPI Musculoskeletal: Reports as per HPI Musculoskeletal: absent: ankle pain, ankle stiffness, ankle swelling Integumentary: Reports as per HPI Neurological: Reports as per HPI Psychiatric: Reports as per HPI Endocrine: Reports as per HPI Hematologic/Lymphatic: Reports as per HPI Allergic/Immunologic: Reports as per HPI Past Medical History Past Medical History: Atrial Fibrillation, Heart Failure, COPD, Diabetes Mellitus, Deep Vein Thrombosis (DVT), GERD/Reflux, Hyperlipidemia, Hypertension, Pneumonia, Renal Disease, Respiratory Disorder, Skin Disorder, Sleep Apnea/CPAP/BIPAP, Vascular Disorder Additional Past Medical History / Comment(s): Pt recently admitted to [facility] on 08/02/20 with chf/acute on chronic renal disease, possible pneumonia. Pt tested covic+ on 08/20/20 at [facility] ER. Other hx: Chronic hypoxic respiratory failure and the patient OXYGEN dependent 5 L, previous history of left-sided pneumothorax requiring a Thoravent insertion, IDDM type II, paroxysmal AFIB, SSS with pacer, nonischemic cardiomyopathy, past alcoholism/DTs, diverticulosis, obstuctive sleep apnea but no Cpap since wt loss, sinusitis, neuropathy bilateral feet, elevated LFTs, BPH, CKD stag III, DVT R leg, hypomagnesemia, hypoalbuminemia, anemia, protein calorie malnutrition, PVD, current sores bilateral feet. History of Any Multi-Drug Resistant Organisms: None Reported Past Surgical History: Appendectomy, Cholecystectomy, Heart Catheterization, Pacemaker Additional Past Surgical History / Comment(s): Partial liver removed d/t adhesions, colonoscopies, bilateral eyes blepharoplasties, pacer Past Anesthesia/Blood Transfusion Reactions: Postoperative Nausea & Vomiting (PONV) Additional Past Anesthesia/Blood Transfusion Reaction / Comment(s): Pt states he has had PONV with gas only. Type of Cardiac Device: Permanent Pacemaker Device Placement Date:: 2017 Smoking Status: Former smoker - Past Family History Mother Family Medical History: Thyroid Disorder Additional Family Medical History / Comment(s): . Father Additional Family Medical History / Comment(s): Father of diverticulitis,peritonitis at the age of 35yrs. Medications and Allergies Home Medications Medication Instructions Recorded Confirmed Type RX: Tamsulosin [Flomax] 0.4 mg PO DAILY 06/23/16 08/20/20 History RX: HYDROcodone/APAP 10-325MG 1 tab PO Q6H PRN 09/06/17 08/20/20 History [Morrill 10-325] RX: Cyclobenzaprine [Flexeril] 10 mg PO TID PRN 09/30/18 08/20/20 History RX: Ondansetron HCl [Zofran] 4 mg PO BID PRN 09/30/18 08/20/20 History RX: Apixaban [Eliquis] 2.5 mg PO BID 01/11/19 08/20/20 History RX: Pantoprazole [Protonix] 40 mg PO DAILY 01/11/19 08/20/20 History RX: guaiFENesin 400 mg PO BID 01/11/19 08/20/20 History RX: Chlorthalidone [Hygroton] 25 mg PO DAILY 08/02/20 08/20/20 History RX: Insulin Aspart [NovoLOG See Protocol SQ AC-TID 08/02/20 08/20/20 History Flexpen] RX: Insulin Glargine,Hum.rec.anlog 40 unit SQ DAILY 08/02/20 08/20/20 History [Lantus Solostar] RX: Levothyroxine Sodium 25 mcg PO DAILY 08/02/20 08/20/20 History [Synthroid] RX: Tiotropium 18 Mcg/Puff 2 puff INHALATION RT-DAILY 08/02/20 08/20/20 History [Spiriva] Furosemide [Lasix] 60 mg PO BID 14 Days #84 tab 08/10/20 08/20/20 Rx RX: Aspirin 81 mg PO DAILY 30 Days #30 chew 08/10/20 08/20/20 Rx RX: Ipratropium-Albuterol Nebulize 3 ml INHALATION RT-Q4H PRN ml 08/10/20 08/20/20 Rx [Duoneb 0.5 mg-3 mg/3 ml Soln] RX: Ipratropium-Albuterol Nebulize 3 ml INHALATION RT-QID #120 ml 08/10/20 08/20/20 Rx [Duoneb 0.5 mg-3 mg/3 ml Soln] RX: Metoprolol Succinate (ER) 100 mg PO DAILY 30 Days #30 08/10/20 08/20/20 Rx [Toprol XL] tab.er.24h RX: Midodrine [ProAmatine] 10 mg PO AC-TID 30 Days #90 tab 08/10/20 08/20/20 Rx RX: predniSONE 10 mg PO DAILY 30 Days #30 tab 08/10/20 08/20/20 Rx Allergies Allergy/AdvReac Type Severity Reaction Status Date / Time No Known Allergies Allergy Verified 08/20/20 14:50 Physical Exam Vitals: Vital Signs Temp Pulse Pulse Resp BP BP Pulse Ox 08/21/20 12:00 98.0 F 118 H 24 93/62 96 08/21/20 08:00 97.0 F L 92 28 H 89/58 96 08/21/20 04:00 98.2 F 93 21 95/66 97 08/20/20 23:53 98.4 F 106 H 23 105/55 97 08/20/20 20:00 98.2 F 92 22 114/66 95 08/20/20 16:40 97.7 F 110 H 22 135/68 96 08/20/20 15:52 113 H 22 106/59 94 L 08/20/20 14:10 120 H 22 08/20/20 14:01 112 H 23 08/20/20 13:43 96 08/20/20 13:40 98.7 F 120 H 26 H 107/95 94 L Intake and Output 08/20/20 08/21/20 08/21/20 22:59 06:59 14:59 Intake Total 800 Output Total 350 300 Balance -350 500 Intake: Intake, IV Titration 400 Amount Sodium Chloride 0.9% 1, 400 000 ml @ 50 mls/hr IV . Q20H [facility] Rx#:[id number] Oral 400 Output: Urine 350 300 Other: Voiding Method Urinal Urinal Urinal # Voids 1 Weight 106.141 kg 113.5 kg 113.5 kg Gen. appearance, comfortable no respiratory distress, currently on BiPAP at a pressure of 14/6 cm of water and FiO2 o50% and the patient is also communicating while in the BiPAP. Head exam was generally normal. There was no scleral icterus or corneal arcus. Mucous membranes were moist. Neck was supple and without jugular venous distension, thyromegaly, or carotid bruits. Carotids were easily palpable bilaterally. There was no adenopathy. Lungs sounds are diminished bilaterally with few scattered expiratory wheezes throughout the lung man. There is adequate and symmetrical air entry bilaterally. The patient also has crackles more so on the right compared to the left. Cardiac exam revealed the PMI to be normally situated and sized. The rhythm was regular and no extrasystoles were noted during several minutes of auscultation. The first and second heart sounds were normal and physiologic splitting of the second heart sound was noted. There were no murmurs, rubs, clicks, or gallops. Abdominal exam revealed normal bowel sounds. The abdomen was soft, non-tender, and without masses, organomegaly, or appreciable enlargement of the abdominal aorta. Examination of the extremities revealed easily palpable radial, femoral and pedal pulses. There was no cyanosis, clubbing and the patient has increased swelling in lower extremities bilaterally. Examination of the skin revealed no evidence of significant rashes, suspicious appearing nevi or other concerning lesions. Neurologically is awake and alert and there is no focal neurological deficit. Results - Laboratory Findings CBC and BMP: 08/21/20 07:40 08/21/20 07:40 ABG WBC 1.5 k/uL (3.8-10.6) L 08/21/20 07:40 RBC 3.00 m/uL (4.30-5.90) L 08/21/20 07:40 Hgb 9.3 gm/dL (13.0-17.5) L D 08/21/20 07:40 Hct 28.2 % (39.0-53.0) L 08/21/20 07:40 MCV 94.0 fL (80.0-100.0) 08/21/20 07:40 MCH 30.9 pg (25.0-35.0) 08/21/20 07:40 MCHC 32.9 g/dL (31.0-37.0) 08/21/20 07:40 RDW 14.2 % (11.5-15.5) 08/21/20 07:40 Plt Count 102 k/uL (150-450) L D 08/20/20 13:56 MPV 8.6 08/21/20 07:40 Neutrophils % 75 % 08/20/20 13:56 Lymphocytes % 12 % 08/20/20 13:56 Monocytes % 11 % 08/20/20 13:56 Eosinophils % 0 % 08/20/20 13:56 Basophils % 2 % 08/20/20 13:56 Neutrophils # 3.6 k/uL (1.3-7.7) 08/20/20 13:56 Lymphocytes # 0.6 k/uL (1.0-4.8) L 08/20/20 13:56 Monocytes # 0.5 k/uL (0-1.0) 08/20/20 13:56 Eosinophils # 0.0 k/uL (0-0.7) 08/20/20 13:56 Basophils # 0.1 k/uL (0-0.2) 08/20/20 13:56 RBC Morphology Normal 08/20/20 13:56 Hypochromasia Slight 08/21/20 07:40 PT 11.3 sec (9.0-12.0) 08/20/20 13:56 INR 1.1 (<1.2) 08/20/20 13:56 APTT 30.8 sec (22.0-30.0) H 08/20/20 13:56 D-Dimer 0.43 mg/L FEU (<0.60) 08/21/20 07:40 Sodium 134 mmol/L (137-145) L 08/21/20 07:40 Potassium 4.1 mmol/L (3.5-5.1) 08/21/20 07:40 Chloride 87 mmol/L (98-107) L 08/21/20 07:40 Carbon Dioxide 39 mmol/L (22-30) H 08/21/20 07:40 Anion Gap 8 mmol/L 08/21/20 07:40 BUN 56 mg/dL (9-20) H 08/21/20 07:40 Creatinine 1.60 mg/dL (0.66-1.25) H 08/21/20 07:40 Est GFR (CKD-EPI)AfAm 53 (>60 ml/min/1.73 sqM) 08/21/20 07:40 Est GFR (CKD-EPI)NonAf 45 (>60 ml/min/1.73 sqM) 08/21/20 07:40 Glucose 197 mg/dL (74-99) H 08/21/20 07:40 POC Glucose (mg/dL) 213 mg/dL (75-99) H 08/21/20 12:01 POC Glu Rate Reviewer NORBERTO Bettencourt Helga 08/21/20 12:01 Plasma Lactic Acid Stone 1.7 mmol/L (0.7-2.0) 08/20/20 13:56 Calcium 8.0 mg/dL (8.4-10.2) L 08/21/20 07:40 Magnesium 1.7 mg/dL (1.6-2.3) 08/20/20 13:56 Ferritin 1024.9 ng/mL (22.0-322.0) H 08/20/20 13:56 Total Bilirubin 0.8 mg/dL (0.2-1.3) 08/20/20 13:56 AST 47 U/L (17-59) 08/20/20 13:56 ALT 12 U/L (4-49) 08/20/20 13:56 Alkaline Phosphatase 59 U/L (38-126) 08/20/20 13:56 Lactate Dehydrogenase 420 U/L (313-618) 08/21/20 07:40 Troponin I 0.056 ng/mL (0.000-0.034) H* 08/20/20 13:56 C-Reactive Protein 130.2 mg/L (<10.0) H 08/21/20 07:40 Total Protein 6.4 g/dL (6.3-8.2) 08/20/20 13:56 Albumin 3.7 g/dL (3.5-5.0) 08/20/20 13:56 Procalcitonin 0.46 ng/mL (0.02-0.09) H 08/20/20 13:56 Coronavirus (PCR) Detected (Not Detectd) A 08/20/20 13:58 PT/INR, D-dimer PT 11.3 sec (9.0-12.0) 08/20/20 13:56 INR 1.1 (<1.2) 08/20/20 13:56 D-Dimer 0.43 mg/L FEU (<0.60) 08/21/20 07:40 Abnormal lab findings: Abnormal Labs 08/20/20 08/20/20 08/20/20 13:56 13:56 13:56 WBC RBC 3.69 L Hgb 11.5 L Hct 34.4 L Plt Count 102 L D Lymphocytes # 0.6 L APTT 30.8 H Sodium 134 L Chloride 84 L Carbon Dioxide 44 H* BUN 60 H Creatinine 1.73 H Glucose POC Glucose (mg/dL) Calcium Ferritin 1024.9 H Troponin I C-Reactive Protein 178.5 H Procalcitonin Coronavirus (PCR) 08/20/20 08/20/20 08/20/20 13:56 13:56 13:58 WBC RBC Hgb Hct Plt Count Lymphocytes # APTT Sodium Chloride Carbon Dioxide BUN Creatinine Glucose POC Glucose (mg/dL) Calcium Ferritin Troponin I 0.056 H* C-Reactive Protein Procalcitonin 0.46 H Coronavirus (PCR) Detected A 08/20/20 08/20/20 08/21/20 17:04 20:50 06:19 WBC RBC Hgb Hct Plt Count Lymphocytes # APTT Sodium Chloride Carbon Dioxide BUN Creatinine Glucose POC Glucose (mg/dL) 133 H 146 H 232 H Calcium Ferritin Troponin I C-Reactive Protein Procalcitonin Coronavirus (PCR) 08/21/20 08/21/20 08/21/20 07:40 07:40 12:01 WBC 1.5 L RBC 3.00 L Hgb 9.3 L D Hct 28.2 L Plt Count Lymphocytes # APTT Sodium 134 L Chloride 87 L Carbon Dioxide 39 H BUN 56 H Creatinine 1.60 H Glucose 197 H POC Glucose (mg/dL) 213 H Calcium 8.0 L Ferritin Troponin I C-Reactive Protein 130.2 H Procalcitonin Coronavirus (PCR) - Diagnostic Findings Chest x-ray: image reviewed Assessment and Plan Plan: 1 acute COVID-19 related pneumonia with extensive right upper lobe consolidation/infiltration in addition to infiltration of the right lower lobe and the left lower lobe. The patient had a normal chest x-ray during his earlier presentation to the hospital on 08/05/2020. He also had a negative COVID-19 testing back then. Patient comes in with a positive tests. He has developed new infiltration. Currently is in respiratory failure and currently is on a BiPAP at a pressure of 14/6 cm of water and FiO2 of 50%. He was started on IV Solu-Medrol. He will also benefit from convalescent plasma. May add tocilizumab, for now we will hold off on this treatment knowing that the patient has an elevated Pro-calcitonin level. He has had previous pseudomonas in his sputum on 08/03/2020. 2 Severe chronic obstructive pulmonary disease - patient has severe COPD and his palmar function test today shows a FEV1 of 22% of predicted, diffusion capacity of 33% of predicted and he has also evidence of hyperinflation and air trapping. This is consistent with COPD. 3 Cellulitis of the lower extremity along with edema and development of superficial grade 1/2 sores in lower extremity is bilaterally 4. Alcoholism, drinking 3-4 beers at nighttime 5. Insulin treated type 2 diabetes mellitus, currently on Lantus insulin 6. Congestive heart failure - CHF with and EF of 30% 7. Hyperlipidemia 8 Hypertension 9 ALMA, currently not utilizing any CPAP 10 previous history of left-sided pneumothorax requiring Thoravent insertion with successful expansion 11 history of pacemaker 12 chronic hypoxic respiratory failure maintained on oxygen at 5 L 13 paroxysmal atrial fibrillation current rhythm is sinus, currently in a first- degree AV block with RBBB pattern. The patient's cardiac rhythm is paced for no w and the patient is on long-term and to coagulation with Eliquis 2.5 mg twice a day. 14 history of diverticulosis 15 history of smoking 16 acute kidney injury in the creatinine is at 1.6 Plan Put the patient IV Solu Medrol 60 mg every 6 hours. Order convalescent plasma Cover the patient with IV cefepime 2 g every 12 hours knowing that he was hospitalized recently with a positive Pseudomonas in his sputum. Continue BiPAP @ 14/6 with an FiO2 of 50% IV fluids to KVO Start the patient IV Zosyn 3.375 g every 12 hours Applied medihoney to the lower extremities wounds in addition to Silvadene cream and wrap the legs Continue home medication including Eliquis 2.5 mg by mouth twice a day Resume all medication will continue to follow. We'll make further recommendations based on his progress.
[2020-08-21] MEDS: HYDROcodone/APAP 5-325MG 1 EACH TAB PO PRN ×2 (13:25→19:58)
[2020-08-21 14:23] LABS: Platelet Count 86 k/uL (150-450)
[2020-08-21 16:50] LABS: Glucose,Whole Blood 244 mg/dL (75-99)
[2020-08-21 20:09] LABS: Glucose,Whole Blood 264 mg/dL (75-99)
--- NOTE | 2020-08-21 22:15 | P.PN ---
Subjective Progress Note Date: 08/21/20 Patient is a 64-year-old male with a known history of atrial fibrillation on anticoagulation with Eliquis, history of pacemaker placement due to SSS, chronic CHF with systolic dysfunction ejection fraction 35%, COPD on home oxygen 5 L via nasal cannula, hypertension, diabetes type 2 [id number], obstructive sleep apnea, previous history of alcohol abuse/DTs, BPH, CKD stage III, bilateral lower extremity peripheral neuropathy and previous history of smoking other multiple medical problems presents to ER with complaints of worsening shortness of breath for the past 2 to 3 days. Patient was presents to ER due to respiratory distress by EMS. Patient was placed on 9% nonrebreather and was s aturating at 80%. Patient was started on BiPAP while in the ER. Otherwise patient has been afebrile. No complaints of nausea vomiting or abdominal pain or diarrhea. Laboratory data showed blood pressure 107/95 respiration 26 pulse is 120 and 100% nonrebreather on admission. Laboratory data showed WBC 4.9 hemoglobin 11.5 platelets 102 chloride 84 sodium 134 bicarb 44 BUN 16 creatinine 1.73 and Troponin 0 0.056, CRP 178 and coronavirus PCR detected. Chest x-ray showed correlate for pneumonia. Edema not excluded. Follow-up suggested. Patient was recently discharged admitted to the hospital from 08/02/2020 to 08/10/2020 08/21/2020 Patient is currently on BiPAP with FiO2 50%. Saturating at 88 to 90%. Awake alert oriented x3. Able to communicate. Patient has been afebrile. No complaints of chest pain. Patient is complaining of bilateral lower extremity pain and requesting pain medications. No diarrhea or dysuria. No nausea or vomiting. Chest x-ray showed multifocal pneumonia is stable. Due to elevated procalcitonin level 0.46 and recent sputum cultures growing Pseudomonas. Patient was be started on cefepime. Pulmonary is on board. Laboratory data showed WBC 1.5 hemoglobin 9.3 platelets 86 lymphocytes 0.4 D-dimer is 0.43 Sodium 134 potassium 4.1 chloride 87 bicarb is 39 BUN 56 and creatinine 1.6 Patient is being continued on IV Solu-Medrol, Eliquis and multivitamins. Active Medications Generic Name Dose Route Start Last Admin Trade Name Freq PRN Reason Stop Dose Admin Acetaminophen 650 mg 08/20/20 14:52 08/21/20 10:52 Acetaminophen Tab 325 Mg Tab PO 650 mg Q6HR PRN Administration Mild Pain or Fever > 100.5 Hydrocodone Bitart/Acetaminophen 1 each 08/21/20 12:19 08/21/20 19:58 Hydrocodone/Apap 5-325mg 1 Each Tab PO 1 each Q6HR PRN Administration Pain Albuterol Sulfate 2 puff 08/21/20 08:00 08/21/20 19:08 Albuterol Hfa Inhaler INHALATION 2 puff RT-QID ASHISH Administration Albuterol Sulfate 2 puff 08/20/20 20:31 Albuterol Hfa Inhaler INHALATION RT-Q4H PRN Shortness Of Breath Or Wheezing Apixaban 2.5 mg 08/20/20 21:15 08/21/20 19:59 Apixaban 2.5 Mg Tablet PO 2.5 mg BID ASHISH Administration Ascorbic Acid 500 mg 08/20/20 21:00 08/21/20 19:59 Ascorbic Acid 500 Mg Tab PO 500 mg BID ASHISH Administration Aspirin 81 mg 08/21/20 09:00 08/21/20 10:52 Aspirin 81 Mg PO 81 mg DAILY ASHISH Administration Cholecalciferol 125 mcg 08/20/20 15:00 08/21/20 10:51 Cholecalciferol 25 Mcg (1000 Iu) Tablet PO 125 mcg DAILY ASHISH Administration Famotidine 20 mg 08/20/20 21:00 08/21/20 19:59 Famotidine 20 Mg/2 Ml Vial IV 20 mg Q12HR ASHISH Administration Furosemide 60 mg 08/20/20 21:15 08/21/20 17:16 Furosemide 20 Mg Tab PO 60 mg BID@0900,1600 ASHISH Administration Guaifenesin 600 mg 08/20/20 21:00 08/21/20 19:59 Guaifenesin 600 Mg Tablet.Er PO 600 mg BID ASHISH Administration Sodium Chloride 1,000 mls @ 50 mls/hr 08/20/20 15:00 08/21/20 10:56 Saline 0.9% IV 50 mls/hr .Q20H ASHISH Administration Cefepime HCl 2 gm/ Sodium 100 mls @ 25 mls/hr 08/21/20 22:30 Chloride IVPB Q12HR ASHISH Insulin Aspart 0 unit 08/21/20 07:30 08/21/20 20:10 Insulin Aspart (Novolog) 100 Unit/Ml Vial SQ 6 unit ACHS ASHISH Administration Protocol Insulin Detemir 40 unit 08/21/20 07:00 08/21/20 10:09 Insulin Detemir (Levemir) 100 Unit/Ml Syr SQ Not Given DAILY@0700 [facility] Levothyroxine Sodium 25 mcg 08/21/20 06:30 08/21/20 06:44 Levothyroxine 25 Mcg Tab PO 25 mcg DAILY@0630 ASHISH Administration Methylprednisolone Sodium Succinate 60 mg 08/21/20 00:00 08/21/20 17:15 Methylprednisolone Sod Succi 125 Mg/2 Ml Vial IV 60 mg Q6HR ASHISH Administration Metoprolol Succinate 100 mg 08/21/20 09:00 08/21/20 10:52 Metoprolol Succinate (Er) 100 Mg Tab.Er.24h PO 100 mg DAILY ASHISH Administration Midodrine 10 mg 08/21/20 07:30 08/21/20 17:16 Midodrine 5 Mg Tab PO 10 mg AC-TID ASHISH Administration Naloxone HCl 0.2 mg 08/20/20 14:52 Naloxone 0.4 Mg/Ml 1 Ml Vial IV Q2M PRN Opioid Reversal Ondansetron HCl 4 mg 08/21/20 04:33 Ondansetron 4 Mg/2 Ml Vial IVP Q6HR PRN Nausea And Vomiting Pantoprazole Sodium 40 mg 08/21/20 09:00 08/21/20 10:51 Pantoprazole 40 Mg/10 Ml Vial IV 40 mg DAILY ASHISH Administration Tamsulosin HCl 0.4 mg 08/21/20 09:00 08/21/20 10:52 Tamsulosin 0.4 Mg Cap.Er.24h PO 0.4 mg DAILY ASHISH Administration Tiotropium Antlers 2 puff 08/21/20 08:00 08/21/20 12:32 Tiotropium 2.5 Mcg Inhaler INHALATION 2 puff RT-DAILY ASHISH Administration Zinc Sulfate 220 mg 08/20/20 15:00 08/21/20 10:52 Zinc Sulfate 220 Mg Cap PO 220 mg DAILY ASHISH Administration Objective - Vital Signs Vital signs: Vital Signs Temp 98.0 F 08/21/20 12:00 Pulse 118 H 08/21/20 14:00 Resp 24 08/21/20 14:00 BP 93/62 08/21/20 12:00 Pulse Ox 91 L 08/21/20 13:43 Intake & Output 08/20/20 08/21/20 08/21/20 18:59 06:59 18:59 Intake Total 800 Output Total 350 300 Balance -350 500 Weight 106.141 kg 113.5 kg 113.5 kg Intake: Intake, IV Titration 400 Amount Sodium Chloride 0.9% 1, 400 000 ml @ 50 mls/hr IV . Q20H [facility] Rx#:[id number] Oral 400 Output: Urine 350 300 Other: Voiding Method Urinal Urinal # Voids 1 - Exam PHYSICAL EXAMINATION: Patient is lying in the bedHe appears to be in distress due to shortness of breath and is currently on BiPAP., awake alert and oriented.. HEENT: Normocephalic. Neck is supple. Pupils reactive. Nostrils clear. Oral cavity is moist. Ears reveal no drainage. Neck reveals no JVD, carotid bruits, or thyromegaly. CHEST EXAMINATION: Trachea is central. Symmetrical expansion.Bibasilar diminished air entry and mild expiratory wheeze . CARDIAC: Normal S1, S2 with no gallops. No murmurs ABDOMEN: Soft. Bowel sounds normal. No organomegaly. No abdominal bruits. Extremities: 2+ edema. leg wounds /sores . No clubbing or cyanosis Neurologically awake, alert, oriented x3 with well-coordinated movements. No focal deficits noted Skin: No rash or skin lesions. Psychiatric: Coperative. Nonsuicidal Musculoskeletal: No joint swelling or deformity. Normal range of motion. - Labs CBC & Chem 7: 08/21/20 07:40 08/21/20 07:40 Labs: Abnormal Lab Results - Last 24 Hours (Table) 08/20/20 08/20/20 08/20/20 Range/Units 13:56 13:56 13:56 WBC (3.8-10.6) k/uL RBC (4.30-5.90) m/uL Hgb (13.0-17.5) gm/dL Hct (39.0-53.0) % Plt Count 102 L D (150-450) k/uL Neutrophils # (1.3-7.7) k/uL Lymphocytes # 0.6 L (1.0-4.8) k/uL Sodium (137-145) mmol/L Chloride (98-107) mmol/L Carbon Dioxide (22-30) mmol/L BUN (9-20) mg/dL Creatinine (0.66-1.25) mg/dL Glucose (74-99) mg/dL POC Glucose (mg/dL) (75-99) mg/dL Calcium (8.4-10.2) mg/dL Ferritin 1024.9 H (22.0-322.0) ng/mL Troponin I (0.000-0.034) ng/mL C-Reactive Protein 178.5 H (<10.0) mg/L Procalcitonin 0.46 H (0.02-0.09) ng/mL 08/20/20 08/20/20 08/20/20 Range/Units 13:56 17:04 20:50 WBC (3.8-10.6) k/uL RBC (4.30-5.90) m/uL Hgb (13.0-17.5) gm/dL Hct (39.0-53.0) % Plt Count (150-450) k/uL Neutrophils # (1.3-7.7) k/uL Lymphocytes # (1.0-4.8) k/uL Sodium (137-145) mmol/L Chloride (98-107) mmol/L Carbon Dioxide (22-30) mmol/L BUN (9-20) mg/dL Creatinine (0.66-1.25) mg/dL Glucose (74-99) mg/dL POC Glucose (mg/dL) 133 H 146 H (75-99) mg/dL Calcium (8.4-10.2) mg/dL Ferritin (22.0-322.0) ng/mL Troponin I 0.056 H* (0.000-0.034) ng/mL C-Reactive Protein (<10.0) mg/L Procalcitonin (0.02-0.09) ng/mL 08/21/20 08/21/20 08/21/20 Range/Units 06:19 07:40 07:40 WBC 1.5 L (3.8-10.6) k/uL RBC 3.00 L (4.30-5.90) m/uL Hgb 9.3 L D (13.0-17.5) gm/dL Hct 28.2 L (39.0-53.0) % Plt Count 86 L (150-450) k/uL Neutrophils # 1.0 L (1.3-7.7) k/uL Lymphocytes # 0.4 L (1.0-4.8) k/uL Sodium 134 L (137-145) mmol/L Chloride 87 L (98-107) mmol/L Carbon Dioxide 39 H (22-30) mmol/L BUN 56 H (9-20) mg/dL Creatinine 1.60 H (0.66-1.25) mg/dL Glucose 197 H (74-99) mg/dL POC Glucose (mg/dL) 232 H (75-99) mg/dL Calcium 8.0 L (8.4-10.2) mg/dL Ferritin (22.0-322.0) ng/mL Troponin I (0.000-0.034) ng/mL C-Reactive Protein 130.2 H (<10.0) mg/L Procalcitonin (0.02-0.09) ng/mL 08/21/20 Range/Units 12:01 WBC (3.8-10.6) k/uL RBC (4.30-5.90) m/uL Hgb (13.0-17.5) gm/dL Hct (39.0-53.0) % Plt Count (150-450) k/uL Neutrophils # (1.3-7.7) k/uL Lymphocytes # (1.0-4.8) k/uL Sodium (137-145) mmol/L Chloride (98-107) mmol/L Carbon Dioxide (22-30) mmol/L BUN (9-20) mg/dL Creatinine (0.66-1.25) mg/dL Glucose (74-99) mg/dL POC Glucose (mg/dL) 213 H (75-99) mg/dL Calcium (8.4-10.2) mg/dL Ferritin (22.0-322.0) ng/mL Troponin I (0.000-0.034) ng/mL C-Reactive Protein (<10.0) mg/L Procalcitonin (0.02-0.09) ng/mL Assessment and Plan Assessment: Acute COVID-19 pneumonia Acute on chronic hypoxic and hypercapnic respiratory failure due to Covid pneumonia with underlying COPD Possible bacterial pneumonia with recent sputum cultures growing Pseudomonas. Chronic hypoxic respiratory failure secondary to COPD on 5 L. On prednisone 20 mg daily oxygen via nasal cannula at home. Chronic CHF with systolic dysfunction ejection fraction 35% Nonischemic cardiomyopathy acute on chronic kidney disease stage III with baseline creatinine 1.1. 1.71 on admission Bilateral lower extremity swelling history of alcohol abuse and DTs Diabetes type 2 insulin-dependent Hypertension Hyperlipidemia Obstructive sleep apnea not on CPAP at home Permanent atrial fibrillation on anticoagulation with Eliquis. Considering ablation as an outpatient. Status post pacemaker placement. Patient history of smoking DVT prophylaxis patient is already on Eliquis. Plan: Patient is currently on BiPAP. Was given IV Solu-Medrol 125 mg x 1. Patient will be continued on 60mg Q6 and multivitamins and Eliquis. Started on cefepime 2 g every 12. Follow-up inflammatory markers. Patient may be a candidate for remdesivir course. Continue with midodrine and Lasix dose as blood pressure tolerated. c/w tele Pulmonary was consulted. Continue to follow closely. Monitor renal function. Prognosis guarded at this time.. Time with Patient: Greater than 30
[2020-08-21] MEDS: CEFEPIME 2 GM in SODIUM CHLORIDE 0.9% 100 ML IVPB SCH (22:46)
[2020-08-22] MEDS: HYDROcodone/APAP 5-325MG 1 EACH TAB PO PRN ×3 (02:11→20:40)
[2020-08-22 06:02] LABS: Glucose,Whole Blood 210 mg/dL (75-99)
[2020-08-22] MEDS: INSULIN ASPART (NovoLOG) 100 UNIT/ML VIAL SQ SCH ×4 (06:52→20:42)
[2020-08-22] MEDS: LEVOTHYROXINE 25 MCG TAB PO SCH (06:52)
[2020-08-22] MEDS: MIDODRINE 5 MG TAB PO SCH ×3 (06:52→17:30)
[2020-08-22] MEDS: methylPREDNISolone SOD SUCCI 125 MG/2 ML VIAL IV SCH ×4 (06:52→23:16)
[2020-08-22] MEDS: ALBUTEROL HFA INHALER INHALATION SCH ×4 (08:38→19:55)
[2020-08-22] MEDS: TIOTROPIUM 2.5 MCG INHALER INHALATION SCH (08:39)
[2020-08-22] MEDS: ASCORBIC ACID 500 MG TAB PO SCH ×2 (08:52→20:40)
[2020-08-22] MEDS: TAMSULOSIN 0.4 MG CAP.ER.24H PO SCH (08:52)
[2020-08-22] MEDS: APIXABAN 2.5 MG TABLET PO SCH ×2 (08:52→20:40)
[2020-08-22] MEDS: ASPIRIN 81 MG PO SCH (08:52)
[2020-08-22] MEDS: CHOLECALCIFEROL 25 MCG (1000 IU) TABLET PO SCH (08:52)
[2020-08-22] MEDS: PANTOPRAZOLE 40 MG/10 ML VIAL IV SCH (08:52)
[2020-08-22] MEDS: METOPROLOL SUCCINATE (ER) 100 MG TAB.ER.24H PO SCH (08:52)
[2020-08-22] MEDS: ZINC SULFATE 220 MG CAP PO SCH (08:52)
[2020-08-22] MEDS: FAMOTIDINE 20 MG/2 ML VIAL IV SCH (08:53)
[2020-08-22] MEDS: SODIUM CHLORIDE 0.9% 1,000 ML IV SCH (08:53)
[2020-08-22] MEDS: CEFEPIME 2 GM in SODIUM CHLORIDE 0.9% 100 ML IVPB SCH ×2 (08:53→20:41)
[2020-08-22] MEDS: guaiFENesin 600 MG TABLET.ER PO SCH ×2 (08:53→20:40)
[2020-08-22] MEDS: FUROSEMIDE 20 MG TAB PO SCH ×2 (08:53→17:30)
[2020-08-22] MEDS: INSULIN DETEMIR (LEVEMIR) 100 UNIT/ML SYR SQ SCH (09:08)
[2020-08-22 10:52] LABS: Basophils % (A) 0 %; Eosinophils % (A) 0 %; HCT 31.6 % (39.0-53.0); Hypochromasia Moderate; Lymphocytes # (A) 0.2 k/uL (1.0-4.8); Lymphocytes % (A) 5 %; MCH 30.2 pg (25.0-35.0); MCHC 31.8 g/dL (31.0-37.0); MCV 94.8 fL (80.0-100.0); Mean Platelet Volume 9.2; Monocytes # (A) 0.2 k/uL (0-1.0); Monocytes % (A) 5 %; Neutrophils # (A) 4.2 k/uL (1.3-7.7); Neutrophils % (A) 89 %; Platelet Count 104 k/uL (150-450); RBC 3.33 m/uL (4.30-5.90); RDW 14.1 % (11.5-15.5); WBC 4.7 k/uL (3.8-10.6)
[2020-08-22 11:08] LABS: C Reactive Protein 6.8 mg/dL (<1.0); Calcium 8.2 mg/dL (8.4-10.2); Potassium 3.9 mmol/L (3.5-5.1)
[2020-08-22 11:42] LABS: Glucose,Whole Blood 271 mg/dL (75-99)
--- NOTE | 2020-08-22 12:10 | P.PN ---
Subjective Progress Note Date: 08/22/20 64-year-old male patient, came into the hospital because of worsening shortness of breath a few days duration. He was brought in via EMS. He was having oxygen desaturation. The patient in the emergency was started on BiPAP treatment. His wbc was 1.5 and a d-dimer was 0.4 with a creatinine of 1.6 and a sodium level of 134. His LDH level was 1024 at the CRP level was 178. The patient's troponin level was 0.05 and the propofol level was 0.4. The chest x-ray showed bilateral airspace disease right more than left more so in the right upper lobe. For now, the patient is still on a BiPAP at 14/6 with an FiO2 of 50%. He is currently on IV Solu-Medrol 60 mg every 6 hours. He is on long-term anticoagulation with Eliquis 2.5 mg by mouth twice a day. He is also on Spiriva and albuterol HFA regarding his COPD. Is taking Levemir insulin 40 units along with a NovoLog sliding scale coverage. While in the BiPAP, the patient is able to generate tidal volumes of 100 mL with a rate of 20. He has a full face mask and is able to tolerate the treatment without any major difficulties with an FiO2 of 50%.Note that the patient was in the hospital on 08/02/2020 and the patient was Hospital as for CHF, lower extremity edema and a component of COPD exacerbation. Back then, his COVID-19 testing was negative. On today's evaluation of 08/22/2020 the patient is on 15 L of oxygen by nasal cannula and was taken off the BiPAP. Feeling better. Maintaining her pulse ox above 90%. The patient otherwise has no new complaints. He was seen in consultation yesterday and he was on a BiPAP treatment back then. He continues to have extensive consolidation of the right upper lobe based on earlier chest x-rays. His COVID-19 testing was positive. His cough has been on the case mucous with them. His pro-calcitonin level was 0.46. We were considering Tocilizumab treatment on this patient if his condition would get worse. For now, he is looking better. Objective - Vital Signs Vital signs: Vital Signs Temp 98.0 F 08/22/20 02:57 Pulse 117 H 08/22/20 02:57 Resp 25 H 08/22/20 02:57 BP 121/81 08/22/20 02:57 Pulse Ox 96 08/22/20 02:57 Intake & Output 08/21/20 08/22/20 08/22/20 18:59 06:59 18:59 Intake Total 1040 420 Output Total 600 500 Balance 440 -500 420 Weight 113.5 kg 112 kg Intake: Intake, IV Titration 400 Amount Sodium Chloride 0.9% 1, 400 000 ml @ 50 mls/hr IV . Q20H [facility] Rx#:[id number] Oral 640 420 Output: Urine 600 500 Other: Voiding Method Urinal Urinal - Exam Gen. appearance, comfortable no respiratory distress, currently on 15 L of oxygen by nasal cannula, quite comfortable Head exam was generally normal. There was no scleral icterus or corneal arcus. Mucous membranes were moist. Neck was supple and without jugular venous distension, thyromegaly, or carotid bruits. Carotids were easily palpable bilaterally. There was no adenopathy. Lungs sounds are diminished bilaterally with few scattered expiratory wheezes throughout the lung man. There is adequate and symmetrical air entry bilaterally. The patient also has crackles more so on the right compared to the left. Cardiac exam revealed the PMI to be normally situated and sized. The rhythm was regular and no extrasystoles were noted during several minutes of auscultation. The first and second heart sounds were normal and physiologic splitting of the second heart sound was noted. There were no murmurs, rubs, clicks, or gallops. Abdominal exam revealed normal bowel sounds. The abdomen was soft, non-tender, and without masses, organomegaly, or appreciable enlargement of the abdominal aorta. Examination of the extremities revealed easily palpable radial, femoral and pedal pulses. There was no cyanosis, clubbing and the patient has increased swelling in lower extremities bilaterally. Examination of the skin revealed no evidence of significant rashes, suspicious appearing nevi or other concerning lesions. Neurologically is awake and alert and there is no focal neurological deficit. - Labs CBC & Chem 7: 08/22/20 10:02 08/22/20 10:02 Labs: Abnormal Lab Results - Last 24 Hours (Table) 08/21/20 08/21/20 08/21/20 Range/Units 07:40 16:49 20:08 RBC (4.30-5.90) m/uL Hgb (13.0-17.5) gm/dL Hct (39.0-53.0) % Plt Count 86 L (150-450) k/uL Neutrophils # 1.0 L (1.3-7.7) k/uL Lymphocytes # 0.4 L (1.0-4.8) k/uL Sodium (137-145) mmol/L Chloride (98-107) mmol/L Carbon Dioxide (22-30) mmol/L BUN (9-20) mg/dL Creatinine (0.66-1.25) mg/dL Glucose (74-99) mg/dL POC Glucose (mg/dL) 244 H 264 H (75-99) mg/dL Calcium (8.4-10.2) mg/dL C-Reactive Protein (<1.0) mg/dL 08/22/20 08/22/20 08/22/20 Range/Units 06:00 10:02 10:02 RBC 3.33 L (4.30-5.90) m/uL Hgb 10.0 L (13.0-17.5) gm/dL Hct 31.6 L (39.0-53.0) % Plt Count 104 L (150-450) k/uL Neutrophils # (1.3-7.7) k/uL Lymphocytes # 0.2 L (1.0-4.8) k/uL Sodium 134 L (137-145) mmol/L Chloride 88 L (98-107) mmol/L Carbon Dioxide 38 H (22-30) mmol/L BUN 55 H (9-20) mg/dL Creatinine 1.52 H (0.66-1.25) mg/dL Glucose 267 H (74-99) mg/dL POC Glucose (mg/dL) 210 H (75-99) mg/dL Calcium 8.2 L (8.4-10.2) mg/dL C-Reactive Protein 6.8 H (<1.0) mg/dL 08/22/20 Range/Units 11:41 RBC (4.30-5.90) m/uL Hgb (13.0-17.5) gm/dL Hct (39.0-53.0) % Plt Count (150-450) k/uL Neutrophils # (1.3-7.7) k/uL Lymphocytes # (1.0-4.8) k/uL Sodium (137-145) mmol/L Chloride (98-107) mmol/L Carbon Dioxide (22-30) mmol/L BUN (9-20) mg/dL Creatinine (0.66-1.25) mg/dL Glucose (74-99) mg/dL POC Glucose (mg/dL) 271 H (75-99) mg/dL Calcium (8.4-10.2) mg/dL C-Reactive Protein (<1.0) mg/dL Microbiology - Last 24 Hours (Table) 08/20/20 13:57 Blood Culture - Preliminary Blood No Growth after 24 hours 08/20/20 13:56 Blood Culture - Preliminary Blood No Growth after 24 hours Assessment and Plan Plan: 1 acute COVID-19 related pneumonia with extensive right upper lobe consolidation/infiltration in addition to infiltration of the right lower lobe and the left lower lobe. The patient had a normal chest x-ray during his earlier presentation to the hospital on 08/05/2020. He also had a negative COVID-19 testing back then. Patient comes in with a positive tests. He has developed new infiltration. He was started on IV Solu-Medrol. He has had previous pseudomonas in his sputum on 08/03/2020. He is currently on IV cefepime also. Pro-calcitonin level was mildly elevated. We are holding off tocilizumab treatment for now due to suspicion for underlying infection. At the same time, the patient's condition has improved and the patient was taken off the BiPAP and the patient is currently on15 l by nasal cannula. 2 Severe chronic obstructive pulmonary disease - patient has severe COPD and his palmar function test today shows a FEV1 of 22% of predicted, diffusion capacity of 33% of predicted and he has also evidence of hyperinflation and air trapping. This is consistent with COPD. 3 Cellulitis of the lower extremity along with edema and development of superficial grade 1/2 sores in lower extremity is bilaterally 4. Alcoholism, drinking 3-4 beers at nighttime 5. Insulin treated type 2 diabetes mellitus, currently on Lantus insulin 6. Congestive heart failure - CHF with and EF of 30% 7. Hyperlipidemia 8 Hypertension 9 ALMA, currently not utilizing any CPAP 10 previous history of left-sided pneumothorax requiring Thoravent insertion with successful expansion 11 history of pacemaker 12 chronic hypoxic respiratory failure maintained on oxygen at 5 L 13 paroxysmal atrial fibrillation current rhythm is sinus, currently in a first- degree AV block with RBBB pattern. The patient's cardiac rhythm is paced for now and the patient is on long-term and to coagulation with Eliquis 2.5 mg twice a day. 14 history of diverticulosis 15 history of smoking 16 acute kidney injury in the creatinine is at 1.5 Plan Put the patient IV Solu Medrol 60 mg every 6 hours. Ordered convalescent plasma, awaiting Not a candidate for Tocilizumab and the patient is being covered with with IV cefepime 2 g every 12 hours knowing that he was hospitalized recently with a positive Pseudomonas in his sputum. off bipap wean FIO2 is currently on 15 L IV fluids to KVO Continue home medication including Eliquis 2.5 mg by mouth twice a day Resume all medication will continue to follow. We'll make further recommendations based on his progress.
[2020-08-22 16:41] LABS: Glucose,Whole Blood 181 mg/dL (75-99)
[2020-08-22 20:14] LABS: Glucose,Whole Blood 224 mg/dL (75-99)
[2020-08-22] MEDS: FAMOTIDINE 20 MG TAB PO SCH (20:40)
[2020-08-23] MEDS ORDERED: DILTIAZEM DRIP BOLUS FROM BAG 1 MG SOLN IV ONE (01:41)
[2020-08-23] MEDS ORDERED: DILTIAZEM 125 MG in SODIUM CHLORIDE 0.9% 100 ML IV SCH (01:45)
[2020-08-23] MEDS: HYDROcodone/APAP 5-325MG 1 EACH TAB PO PRN ×2 (03:25→09:00)
[2020-08-23] MEDS: SODIUM CHLORIDE 0.9% 1,000 ML IV SCH ×2 (04:59→16:08)
[2020-08-23] MEDS: PANTOPRAZOLE 40 MG TABLET PO SCH (07:02)
[2020-08-23] MEDS: MIDODRINE 5 MG TAB PO SCH ×3 (07:02→17:00)
[2020-08-23] MEDS: INSULIN DETEMIR (LEVEMIR) 100 UNIT/ML SYR SQ SCH (07:02)
[2020-08-23] MEDS: methylPREDNISolone SOD SUCCI 125 MG/2 ML VIAL IV SCH ×2 (07:02→12:52)
[2020-08-23] MEDS: LEVOTHYROXINE 25 MCG TAB PO SCH (07:02)
[2020-08-23] MEDS: ACETAMINOPHEN TAB 325 MG TAB PO PRN (07:02)
[2020-08-23] MEDS: INSULIN ASPART (NovoLOG) 100 UNIT/ML VIAL SQ SCH ×4 (07:03→21:05)
[2020-08-23 07:09] LABS: Glucose,Whole Blood 123 mg/dL (75-99)
[2020-08-23 08:43] LABS: Calcium 8.1 mg/dL (8.4-10.2); Potassium 3.3 mmol/L (3.5-5.1)
[2020-08-23 09:00] LABS: Basophils % (A) 0 %; Eosinophils % (A) 0 %; HGB 9.5 gm/dL (13.0-17.5); Hypochromasia Slight; Lymphocytes # (A) 0.3 k/uL (1.0-4.8); Lymphocytes % (A) 8 %; MCH 28.9 pg (25.0-35.0); MCHC 30.5 g/dL (31.0-37.0); MCV 94.8 fL (80.0-100.0); Mean Platelet Volume 8.9; Monocytes # (A) 0.1 k/uL (0-1.0); Monocytes % (A) 4 %; Neutrophils # (A) 3.1 k/uL (1.3-7.7); Neutrophils % (A) 88 %; RBC 3.27 m/uL (4.30-5.90); RDW 14.5 % (11.5-15.5); WBC 3.5 k/uL (3.8-10.6)
[2020-08-23] MEDS: ASPIRIN 81 MG PO SCH (09:00)
[2020-08-23] MEDS: APIXABAN 2.5 MG TABLET PO SCH ×2 (09:00→21:04)
[2020-08-23] MEDS: FAMOTIDINE 20 MG TAB PO SCH ×2 (09:02→21:04)
[2020-08-23] MEDS: METOPROLOL SUCCINATE (ER) 100 MG TAB.ER.24H PO SCH (09:02)
[2020-08-23] MEDS: ASCORBIC ACID 500 MG TAB PO SCH ×2 (09:02→21:04)
[2020-08-23] MEDS: TAMSULOSIN 0.4 MG CAP.ER.24H PO SCH (09:02)
[2020-08-23] MEDS: ZINC SULFATE 220 MG CAP PO SCH (09:02)
[2020-08-23] MEDS: CEFEPIME 2 GM in SODIUM CHLORIDE 0.9% 100 ML IVPB SCH ×2 (09:02→21:05)
[2020-08-23] MEDS: FUROSEMIDE 20 MG TAB PO SCH ×2 (09:02→16:07)
[2020-08-23] MEDS: guaiFENesin 600 MG TABLET.ER PO SCH ×2 (09:02→21:04)
[2020-08-23] MEDS: CHOLECALCIFEROL 25 MCG (1000 IU) TABLET PO SCH (09:02)
[2020-08-23] MEDS: ALBUTEROL HFA INHALER INHALATION SCH ×4 (09:51→21:10)
[2020-08-23] MEDS: TIOTROPIUM 2.5 MCG INHALER INHALATION SCH (09:51)
--- NOTE | 2020-08-23 11:04 | P.CRDCN ---
History of Present Illness History of present illness: HISTORY OF PRESENTING ILLNESS This is a pleasant 64-year-old male past medical history significant for paroxysmal atrial fibrillation on long-term anticoagulation, sick sinus syndrome status post permanent pacemaker implantation, nonischemic cardiomyopathy, chronic systolic heart failure, obstructive sleep apnea, COPD, hypertension, dyslipidemia, chronic kidney disease and obstructive sleep apnea. He follows in the office with Dr. Landeros. We have been asked to see in co nsultation for A. fib with RVR. He is currently being treated for COVID-19. Last night telemetry tracings indicated he went into atrial fibrillation with heart rate of 120 230 bpm. He was initiated on IV Cardizem. Currently he continues to be in A. fib with heart rate in the 70s. Most recent ec hocardiogram obtained in 08/03/2020 revealed impaired LV systolic function with ejection fraction 30-35%, moderate MR, mild TR and borderline pulmonary hypertension with an RVSP of 38 mmHg. DIAGNOSTICS EKG reveals on arrival revealed sinus bradycardia heart rate of 51. Telemetry tracings indicate atrial fibrillation. Chest xray on admission reveals bilateral air space disease worse in the right u pper lobe. Repeat yesterday reveals multifocal pneumonia stable from previous study. Laboratory reviewed, CBC 3.5, hemoglobin 9.5, platelets 104, sodium 136, potassium 3.3, creatinine 1.52, magnesium on admission 1.7, troponin 0.056 and procalcitonin on an 0.46. The patient is COVID positive. Current cardiac medications include Eliquis 2.5 mg twice a day, aspirin 81 mg daily, chlorthalidone 25 mg daily, Lasix 60 mg twice a day and Toprol 100 mg daily. REVIEW OF SYSTEMS At the time of my exam: CONSTITUTIONAL: Complains of fatigue and weakness. Denies fever or chills. CARDIOVASCULAR: Denies chest pain, shortness of breath, orthopnea, PND or palpitations. RESPIRATORY: Denies cough. GASTROINTESTINAL: Denies abdominal pain, diarrhea, constipation, nausea or vomiting. MUSCULOSKELETAL: Denies myalgias. NEUROLOGIC: Denies numbness, tingling, headacbe or weakness. ENDOCRINE: Denies fatigue, weight change, polydipsia or polyurina. GENITOURINARY: Denies burning, hematuria or urgency with micturation. HEMATOLOGIC: Denies history of anemia or bleeding. PHYSICAL EXAMINATION Blood pressure 96/67 heart rate 99 afebrile and maintaining oxygen saturation on high flow oxygen. CONSTITUTIONAL: No apparent distress. HEENT: Head is normocephalic. Pupils are equal, round. Sclerae anicteric. Mucous membranes of the mouth are moist. No JVD. No carotid bruit. CHEST EXAMINATION: Lungs are clear to auscultation. No chest wall tenderness is noted on palpation or with deep breathing. HEART EXAMINATION: Irregular rate and rhythm. S1, S2 heard. Systolic ejection murmur at the base, no gallops or rub. ABDOMEN: Soft, nontender. Positive bowel sounds. EXTREMITIES: 2+ peripheral pulses, 1+ bilateral lower extremity edema, sores noted on the left anterior calf and no calf tenderness. NEUROLOGIC EXAMINATION: Patient is awake, alert and oriented x3. ASSESSMENT COVID 19 pneumonia Paroxysmal atrial fibrillation with rapid ventricular response on eliquis COPD Lower extremity cellulitus Non-ischemic cardiomyopathy Hypertension Chronic systolic heart failure Hypertension Dyslipidemia Diabetes mellitus PLAN Discontinue cardizem infusion. Continue eliquis for thromboembolic protection. Increase Toprol, take 100 in the morning and 50 in the evening. Follow renal function in the morning. Further recommendations to follow based upon clinical course. Thank you kindly for this consultation. Nurse Practitioner note has been reviewed, I agree with a documented findings and plan of care. Patient was seen and examined. Past Medical History Past Medical History: Atrial Fibrillation, Heart Failure, COPD, Diabetes Mellitus, Deep Vein Thrombosis (DVT), GERD/Reflux, Hyperlipidemia, Hypertension, Pneumonia, Renal Disease, Respiratory Disorder, Skin Disorder, Sleep Apnea/CPAP/BIPAP, Vascular Disorder Additional Past Medical History / Comment(s): Pt recently admitted to [facility] on 08/02/20 with chf/acute on chronic renal disease, possible pneumonia. Pt tested covic+ on 08/20/20 at [facility] ER. Other hx: Chronic hypoxic respiratory failure and the patient OXYGEN dependent 5 L, previous history of left-sided pneumothorax requiring a Thoravent insertion, IDDM type II, paroxysmal AFIB, SSS with pacer, nonischemic cardiomyopathy, past alcoholism/DTs, diverticulosis, obstuctive sleep apnea but no Cpap since wt loss, sinusitis, neuropathy bilateral feet, elevated LFTs, BPH, CKD stag III, DVT R leg, hypomagnesemia, hypoalbuminemia, anemia, protein calorie malnutrition, PVD, current sores bilateral feet. History of Any Multi-Drug Resistant Organisms: None Reported Past Surgical History: Appendectomy, Cholecystectomy, Heart Catheterization, Pacemaker Additional Past Surgical History / Comment(s): Partial liver removed d/t adhesions, colonoscopies, bilateral eyes blepharoplasties, pacer Past Anesthesia/Blood Transfusion Reactions: Postoperative Nausea & Vomiting (PONV) Additional Past Anesthesia/Blood Transfusion Reaction / Comment(s): Pt states he has had PONV with gas only. Type of Cardiac Device: Permanent Pacemaker Device Placement Date:: 2017 Smoking Status: Former smoker - Past Family History Mother Family Medical History: Thyroid Disorder Additional Family Medical History / Comment(s): . Father Additional Family Medical History / Comment(s): Father of diverticulitis,peritonitis at the age of 35yrs. Medications and Allergies Home Medications Medication Instructions Recorded Confirmed Type Tamsulosin [Flomax] 0.4 mg PO DAILY 06/23/16 08/20/20 History HYDROcodone/APAP 10-325MG [[place] 1 tab PO Q6H PRN 09/06/17 08/20/20 History 10-325] Cyclobenzaprine [Flexeril] 10 mg PO TID PRN 09/30/18 08/20/20 History Ondansetron HCl [Zofran] 4 mg PO BID PRN 09/30/18 08/20/20 History Apixaban [Eliquis] 2.5 mg PO BID 01/11/19 08/20/20 History Pantoprazole [Protonix] 40 mg PO DAILY 01/11/19 08/20/20 History guaiFENesin 400 mg PO BID 01/11/19 08/20/20 History Chlorthalidone [Hygroton] 25 mg PO DAILY 08/02/20 08/20/20 History Insulin Aspart [NovoLOG Flexpen] See Protocol SQ AC-TID 08/02/20 08/20/20 History Insulin Glargine,Hum.rec.anlog 40 unit SQ DAILY 08/02/20 08/20/20 History [Lantus Solostar] Levothyroxine Sodium [Synthroid] 25 mcg PO DAILY 08/02/20 08/20/20 History Tiotropium 18 Mcg/Puff [Spiriva] 2 puff INHALATION RT-DAILY 08/02/20 08/20/20 History Aspirin 81 mg PO DAILY 30 Days #30 chew 08/10/20 08/20/20 Rx Furosemide [Lasix] 60 mg PO BID 14 Days #84 tab 08/10/20 08/20/20 Rx Ipratropium-Albuterol Nebulize 3 ml INHALATION RT-Q4H PRN ml 08/10/20 08/20/20 Rx [Duoneb 0.5 mg-3 mg/3 ml Soln] Ipratropium-Albuterol Nebulize 3 ml INHALATION RT-QID #120 ml 08/10/20 08/20/20 Rx [Duoneb 0.5 mg-3 mg/3 ml Soln] Metoprolol Succinate (ER) [Toprol 100 mg PO DAILY 30 Days #30 08/10/20 08/20/20 Rx XL] tab.er.24h Midodrine [ProAmatine] 10 mg PO AC-TID 30 Days #90 tab 08/10/20 08/20/20 Rx predniSONE 10 mg PO DAILY 30 Days #30 tab 08/10/20 08/20/20 Rx Allergies Allergy/AdvReac Type Severity Reaction Status Date / Time No Known Allergies Allergy Verified 08/20/20 14:50 Physical Exam Vitals: Vital Signs Temp Pulse Resp BP Pulse Ox 08/23/20 08:30 97.5 F L 99 20 96/67 92 L 08/23/20 03:58 96 20 108/65 92 L 08/23/20 02:00 114/78 08/22/20 23:45 98.7 F 115 H 22 110/70 95 08/22/20 20:00 99.1 F 68 26 H 114/84 88 L 08/22/20 16:01 96 08/22/20 16:00 97.9 F 110 H 22 126/64 92 L 08/22/20 14:00 110 H 22 08/22/20 12:00 97.0 F L 110 H 22 116/62 92 L Intake and Output 08/22/20 08/23/20 08/23/20 22:59 06:59 14:59 Intake Total 300 Output Total 750 1050 Balance -450 -1050 Intake: Oral 300 Output: Urine 750 1050 Other: Weight 114.5 kg Results 08/23/20 07:56 08/23/20 07:56 Cardiac Enzymes 08/22/20 Range/Units 10:02 Lactate Dehydrogenase 534 (313-618) U/L CBC 08/22/20 08/23/20 Range/Units 10:02 07:56 WBC 4.7 3.5 L (3.8-10.6) k/uL RBC 3.33 L 3.27 L (4.30-5.90) m/uL Hgb 10.0 L 9.5 L (13.0-17.5) gm/dL Hct 31.6 L 31.0 L (39.0-53.0) % Plt Count 104 L (150-450) k/uL Comprehensive Metabolic Panel 08/22/20 08/23/20 Range/Units 10:02 07:56 Sodium 134 L 136 L (137-145) mmol/L Potassium 3.9 3.3 L (3.5-5.1) mmol/L Chloride 88 L 89 L (98-107) mmol/L Carbon Dioxide 38 H 42 H* (22-30) mmol/L BUN 55 H 57 H (9-20) mg/dL Creatinine 1.52 H 1.52 H (0.66-1.25) mg/dL Glucose 267 H 125 H (74-99) mg/dL Calcium 8.2 L 8.1 L (8.4-10.2) mg/dL Current Medications Generic Name Dose Route Start Last Admin Trade Name Freq PRN Reason Stop Dose Admin Acetaminophen 650 mg 08/20/20 14:52 08/23/20 07:02 Acetaminophen Tab 325 Mg Tab PO 650 mg Q6HR PRN Administration Mild Pain or Fever > 100.5 Hydrocodone Bitart/Acetaminophen 1 each 08/23/20 09:57 Hydrocodone/Apap 10-325mg 1 Each Tab PO Q6H PRN Pain Albuterol Sulfate 2 puff 08/21/20 08:00 08/23/20 09:51 Albuterol Hfa Inhaler INHALATION 2 puff RT-QID ASHISH Administration Albuterol Sulfate 2 puff 08/20/20 20:31 Albuterol Hfa Inhaler INHALATION RT-Q4H PRN Shortness Of Breath Or Wheezing Apixaban 2.5 mg 08/20/20 21:15 08/23/20 09:00 Apixaban 2.5 Mg Tablet PO 2.5 mg BID ASHISH Administration Ascorbic Acid 500 mg 08/20/20 21:00 08/23/20 09:02 Ascorbic Acid 500 Mg Tab PO 500 mg BID ASHISH Administration Aspirin 81 mg 08/21/20 09:00 08/23/20 09:00 Aspirin 81 Mg PO 81 mg DAILY ASHISH Administration Cholecalciferol 125 mcg 08/20/20 15:00 08/23/20 09:02 Cholecalciferol 25 Mcg (1000 Iu) Tablet PO 125 mcg DAILY ASHISH Administration Famotidine 20 mg 08/22/20 21:00 08/23/20 09:02 Famotidine 20 Mg Tab PO 20 mg Q12HR ASHISH Administration Furosemide 60 mg 08/20/20 21:15 08/23/20 09:02 Furosemide 20 Mg Tab PO 60 mg BID@0900,1600 ASHISH Administration Guaifenesin 600 mg 08/20/20 21:00 08/23/20 09:02 Guaifenesin 600 Mg Tablet.Er PO 600 mg BID ASHISH Administration Sodium Chloride 1,000 mls @ 50 mls/hr 08/20/20 15:00 08/23/20 04:59 Saline 0.9% IV 50 mls/hr .Q20H ASHISH Administration Cefepime HCl 2 gm/ Sodium 100 mls @ 25 mls/hr 08/21/20 22:30 08/23/20 09:02 Chloride IVPB 25 mls/hr Q12HR ASHISH Administration Diltiazem HCl 125 mg/ Sodium 125 mls @ 5 mls/hr 08/23/20 01:45 08/23/20 02:09 Chloride IV 5 mg/hr .Q24H ASHISH 5 mls/hr Administration 5 MG/HR Insulin Aspart 0 unit 08/21/20 07:30 08/23/20 07:03 Insulin Aspart (Novolog) 100 Unit/Ml Vial SQ Not Given [facility] Protocol Insulin Detemir 40 unit 08/21/20 07:00 08/23/20 07:02 Insulin Detemir (Levemir) 100 Unit/Ml Syr SQ 40 unit DAILY@0700 [facility] Administration Levothyroxine Sodium 25 mcg 08/21/20 06:30 08/23/20 07:02 Levothyroxine 25 Mcg Tab PO 25 mcg DAILY@0630 ASHISH Administration Methylprednisolone Sodium Succinate 60 mg 08/21/20 00:00 08/23/20 07:02 Methylprednisolone Sod Succi 125 Mg/2 Ml Vial IV 60 mg Q6HR ASHISH Administration Metoprolol Succinate 100 mg 08/21/20 09:00 08/23/20 09:02 Metoprolol Succinate (Er) 100 Mg Tab.Er.24h PO 100 mg DAILY ASHISH Administration Midodrine 10 mg 08/21/20 07:30 08/23/20 07:02 Midodrine 5 Mg Tab PO 10 mg AC-TID ASHISH Administration Naloxone HCl 0.2 mg 08/20/20 14:52 Naloxone 0.4 Mg/Ml 1 Ml Vial IV Q2M PRN Opioid Reversal Ondansetron HCl 4 mg 08/21/20 04:33 Ondansetron 4 Mg/2 Ml Vial IVP Q6HR PRN Nausea And Vomiting Pantoprazole Sodium 40 mg 08/23/20 07:30 08/23/20 07:02 Pantoprazole 40 Mg Tablet PO 40 mg AC-BRKFST ASHISH Administration Tamsulosin HCl 0.4 mg 08/21/20 09:00 08/23/20 09:02 Tamsulosin 0.4 Mg Cap.Er.24h PO 0.4 mg DAILY ASHISH Administration Tiotropium [place] 2 puff 08/21/20 08:00 08/23/20 09:51 Tiotropium 2.5 Mcg Inhaler INHALATION 2 puff RT-DAILY ASHISH Administration Zinc Sulfate 220 mg 08/20/20 15:00 08/23/20 09:02 Zinc Sulfate 220 Mg Cap PO 220 mg DAILY ASHISH Administration Intake and Output 08/22/20 08/23/20 08/23/20 22:59 06:59 14:59 Intake Total 300 Output Total 750 1050 Balance -450 -1050 Intake: Oral 300 Output: Urine 750 1050 Other: Weight 114.5 kg 08/23/20 07:56 08/23/20 07:56
[2020-08-23 11:52] LABS: Glucose,Whole Blood 215 mg/dL (75-99)
[2020-08-23] MEDS: HYDROcodone/APAP 10-325MG 1 EACH TAB PO PRN ×2 (12:23→23:27)
[2020-08-23 12:57] LABS: Platelet Count 87 k/uL (150-450)
[2020-08-23] MEDS ORDERED: Potassium Replacement Protocol 1 EACH MISC MISCELLANE PRN (15:32)
--- NOTE | 2020-08-23 15:55 | P.PN ---
Subjective Progress Note Date: 08/23/20 Principal diagnosis: COVID-19 pneumonia 64-year-old male patient, came into the hospital because of worsening shortness of breath a few days duration. He was brought in via EMS. He was having oxygen desaturation. The patient in the emergency was started on BiPAP treatment. His wbc was 1.5 and a d-dimer was 0.4 with a creatinine of 1.6 and a sodium level of 134. His LDH level was 1024 at the CRP level was 178. The patient's troponin level was 0.05 and the propofol level was 0.4. The chest x-ray showed bilateral airspace disease right more than left more so in the right upper lobe. For now, the patient is still on a BiPAP at 14/6 with an FiO2 of 50%. He is currently on IV Solu-Medrol 60 mg every 6 hours. He is on long-term anticoagulation with Eliquis 2.5 mg by mouth twice a day. He is also on Spiriva and albuterol HFA regarding his COPD. Is taking Levemir insulin 40 units along with a NovoLog sliding scale coverage. While in the BiPAP, the patient is able to generate tidal volumes of 100 mL with a rate of 20. He has a full face mask and is able to tolerate the treatment without any major difficulties with an FiO2 of 50%.Note that the patient was in the hospital on 08/02/2020 and the patient was Hospital as for CHF, lower extremity edema and a component of COPD exacerbation. Back then, his COVID-19 testing was negative. On today's evaluation of 08/22/2020 the patient is on 15 L of oxygen by nasal cannula and was taken off the BiPAP. Feeling better. Maintaining her pulse ox above 90%. The patient otherwise has no new complaints. He was seen in consultation yesterday and he was on a BiPAP treatment back then. He continues to have extensive consolidation of the right upper lobe based on earlier chest x-rays. His COVID-19 testing was positive. His cough has been on the case mucous with them. His pro-calcitonin level was 0.46. We were considering Tocilizumab treatment on this patient if his condition would get worse. For now, he is looking better. On 08/23/2020 patient seen in follow-up on selective care unit, he is resting in bed, he is on 8 L of oxygen, pulse ox is 91%, FiO2 has been weaned down, his breathing seems to be stable, improving, he does get short of breath with exertion, at times he is able to bring up some colored sputum, his been afebrile, no complaints of chest pain, his only complaint today is that he is unable to sleep at night. No new chest x-rays, these labs have been reviewed, showing a little, 3.5, hemoglobin is 9.5, sodium is 136, potassium is 3.3, chloride is 89, CO2 42, BUN is 57, creatinine is 1.5. he remains on oral Lasix 60 mg twice daily, he is on Eliquis 2.5 mg daily, she is on IV Solu-Medrol 40 mg every 8 hours. Fever or chills, his blood cultures have been negative, Objective - Vital Signs Vital signs: Vital Signs Temp 97.3 F L 08/23/20 12:48 Pulse 74 08/23/20 12:48 Resp 20 08/23/20 12:48 BP 96/67 08/23/20 08:30 Pulse Ox 91 L 08/23/20 12:48 Intake & Output 08/22/20 08/23/20 08/23/20 18:59 06:59 18:59 Intake Total 880 500 Output Total 250 1550 200 Balance 630 -1550 300 Weight 114.5 kg Intake: Intake, IV Titration 100 Amount Cefepime 2 gm In Sodium 100 Chloride 0.9% 100 ml @ 25 mls/hr IVPB Q12HR [facility] Rx #:[id number] Oral 880 400 Output: Urine 250 1550 200 Other: Voiding Method Urinal # Voids 3 - Exam GENERAL EXAM: Alert, pleasant, 64-year-old white male, currently down to 8 L of oxygen his pulse ox is 91% comfortable in no apparent distress. HEAD: Normocephalic/atraumatic. EYES: Normal reaction of pupils, equal size. Conjunctiva pink, sclera white. NOSE: Clear with pink turbinates. THROAT: No erythema or exudates. NECK: No masses, no JVD, no thyroid enlargement, no adenopathy. CHEST: No chest wall deformity. Symmetrical expansion. LUNGS: Equal air entry with basilar crackles CVS: Regular rate and rhythm, normal S1 and S2, no gallops, no murmurs, no rubs ABDOMEN: Soft, nontender. No hepatosplenomegaly, normal bowel sounds, no gu arding or rigidity. EXTREMITIES: No clubbing, no edema, no cyanosis, 2+ pulses and upper and lower e xtremities. MUSCULOSKELETAL: Muscle strength and tone normal. SPINE: No scoliosis or deformity SKIN: No rashes CENTRAL NERVOUS SYSTEM: Alert and oriented -3. No focal deficits, tone is normal in all 4 extremities. PSYCHIATRIC: Alert and oriented -3. Appropriate affect. Intact judgment and insight. - Labs CBC & Chem 7: 08/23/20 07:56 08/23/20 07:56 Labs: Abnormal Lab Results - Last 24 Hours (Table) 08/22/20 08/22/20 08/23/20 Range/Units 16:40 20:07 06:56 WBC (3.8-10.6) k/uL RBC (4.30-5.90) m/uL Hgb (13.0-17.5) gm/dL Hct (39.0-53.0) % MCHC (31.0-37.0) g/dL Plt Count (150-450) k/uL Lymphocytes # (1.0-4.8) k/uL Sodium (137-145) mmol/L Potassium (3.5-5.1) mmol/L Chloride (98-107) mmol/L Carbon Dioxide (22-30) mmol/L BUN (9-20) mg/dL Creatinine (0.66-1.25) mg/dL Glucose (74-99) mg/dL POC Glucose (mg/dL) 181 H 224 H 123 H (75-99) mg/dL Calcium (8.4-10.2) mg/dL 08/23/20 08/23/20 08/23/20 Range/Units 07:56 07:56 11:50 WBC 3.5 L (3.8-10.6) k/uL RBC 3.27 L (4.30-5.90) m/uL Hgb 9.5 L (13.0-17.5) gm/dL Hct 31.0 L (39.0-53.0) % MCHC 30.5 L (31.0-37.0) g/dL Plt Count 87 L (150-450) k/uL Lymphocytes # 0.3 L (1.0-4.8) k/uL Sodium 136 L (137-145) mmol/L Potassium 3.3 L (3.5-5.1) mmol/L Chloride 89 L (98-107) mmol/L Carbon Dioxide 42 H* (22-30) mmol/L BUN 57 H (9-20) mg/dL Creatinine 1.52 H (0.66-1.25) mg/dL Glucose 125 H (74-99) mg/dL POC Glucose (mg/dL) 215 H (75-99) mg/dL Calcium 8.1 L (8.4-10.2) mg/dL Microbiology - Last 24 Hours (Table) 08/20/20 13:57 Blood Culture - Preliminary Blood No Growth after 48 hours 08/20/20 13:56 Blood Culture - Preliminary Blood No Growth after 48 hours Assessment and Plan Plan: Assessment: 1 acute COVID-19 related pneumonia with extensive right upper lobe consolidation/infiltration in addition to infiltration of the right lower lobe and the left lower lobe. The patient had a normal chest x-ray during his earlier presentation to the hospital on 08/05/2020. He also had a negative COVID-19 testing back then. Patient comes in with a positive tests. He has developed new infiltration. He was started on IV Solu-Medrol. He has had previous pseudomonas in his sputum on 08/03/2020. He is currently on IV cefepime also. Pro-calcitonin level was mildly elevated. We are holding off tocilizumab treatment for now due to suspicion for underlying infection. At the same time, the patient's condition has improved and the patient was taken off the BiPAP and the patient is currently on 8 L by nasal cannula. 2 Severe chronic obstructive pulmonary disease - patient has severe COPD and his palmar function test today shows a FEV1 of 22% of predicted, diffusion capacity of 33% of predicted and he has also evidence of hyperinflation and air trapping. This is consistent with COPD. 3 Cellulitis of the lower extremity along with edema and development of superficial grade 1/2 sores in lower extremity is bilaterally 4. Alcoholism, drinking 3-4 beers at nighttime 5. Insulin treated type 2 diabetes mellitus, currently on Lantus insulin 6. Congestive heart failure - CHF with and EF of 30% 7. Hyperlipidemia 8 Hypertension 9 ALMA, currently not utilizing any CPAP 10 previous history of left-sided pneumothorax requiring Thoravent insertion with successful expansion 11 history of pacemaker 12 chronic hypoxic respiratory failure maintained on oxygen at 5 L 13 paroxysmal atrial fibrillation current rhythm is sinus, currently in a first- degree AV block with RBBB pattern. The patient's cardiac rhythm is paced for now and the patient is on long-term and to coagulation with Eliquis 2.5 mg twice a day. 14 history of diverticulosis 15 history of smoking 16 acute kidney injury in the creatinine is at 1.5 Plan: Patient is improving, FiO2 is down to 8 L, Continue weaning FiO2 Continue IV steroids for another 24 hours Continue oral anticoagulation Encouraged to continue encouraging incentive spirometer use Follow-up labs inflammatory markers Continue to follow Time with Patient: Less than 30
[2020-08-23] MEDS: methylPREDNISolone SOD SUCCI 40 MG/ML 1 ML VIAL IV SCH ×2 (16:08→23:27)
[2020-08-23] MEDS: POTASSIUM CHLORIDE ER 20 MEQ TAB.ER PO SCH ×2 (16:08→17:00)
[2020-08-23 16:39] LABS: Glucose,Whole Blood 266 mg/dL (75-99)
[2020-08-23 20:49] LABS: Glucose,Whole Blood 261 mg/dL (75-99)
[2020-08-23] MEDS: METOPROLOL SUCCINATE (ER) 50 MG TAB.ER.24H PO SCH (21:04)
[2020-08-23] MEDS: ALPRAZolam 0.5 MG TAB PO PRN (21:04)
[2020-08-24 05:57] LABS: Glucose,Whole Blood 123 mg/dL (75-99)
[2020-08-24] MEDS: INSULIN ASPART (NovoLOG) 100 UNIT/ML VIAL SQ SCH ×4 (06:48→21:45)
[2020-08-24] MEDS: PANTOPRAZOLE 40 MG TABLET PO SCH (06:51)
[2020-08-24] MEDS: LEVOTHYROXINE 25 MCG TAB PO SCH (06:51)
[2020-08-24] MEDS: INSULIN DETEMIR (LEVEMIR) 100 UNIT/ML SYR SQ SCH (06:51)
[2020-08-24] MEDS: MIDODRINE 5 MG TAB PO SCH ×3 (06:51→16:54)
[2020-08-24] MEDS: ALBUTEROL HFA INHALER INHALATION SCH ×4 (08:45→18:58)
[2020-08-24] MEDS: TIOTROPIUM 2.5 MCG INHALER INHALATION SCH (08:45)
[2020-08-24 08:53] LABS: Basophils % (A) 0 %; Eosinophils % (A) 0 %; HCT 33.9 % (39.0-53.0); HGB 10.2 gm/dL (13.0-17.5); Hypochromasia Marked; Lymphocytes # (A) 0.3 k/uL (1.0-4.8); Lymphocytes % (A) 4 %; MCH 29.4 pg (25.0-35.0); MCHC 30.1 g/dL (31.0-37.0); MCV 97.7 fL (80.0-100.0); Mean Platelet Volume 9.3; Monocytes # (A) 0.3 k/uL (0-1.0); Monocytes % (A) 4 %; Neutrophils # (A) 6.5 k/uL (1.3-7.7); Neutrophils % (A) 91 %; Platelet Count 104 k/uL (150-450); RBC 3.47 m/uL (4.30-5.90); RDW 14.3 % (11.5-15.5); WBC 7.1 k/uL (3.8-10.6)
[2020-08-24] MEDS: FUROSEMIDE 20 MG TAB PO SCH ×2 (09:00→16:55)
[2020-08-24] MEDS: ASCORBIC ACID 500 MG TAB PO SCH ×2 (09:00→21:44)
[2020-08-24] MEDS: ZINC SULFATE 220 MG CAP PO SCH (09:00)
[2020-08-24] MEDS: TAMSULOSIN 0.4 MG CAP.ER.24H PO SCH (09:00)
[2020-08-24] MEDS: CHOLECALCIFEROL 25 MCG (1000 IU) TABLET PO SCH (09:00)
[2020-08-24] MEDS: guaiFENesin 600 MG TABLET.ER PO SCH ×2 (09:00→21:44)
[2020-08-24] MEDS: methylPREDNISolone SOD SUCCI 40 MG/ML 1 ML VIAL IV SCH ×3 (09:00→23:08)
[2020-08-24] MEDS: CEFEPIME 2 GM in SODIUM CHLORIDE 0.9% 100 ML IVPB SCH ×2 (09:01→21:44)
[2020-08-24] MEDS: METOPROLOL SUCCINATE (ER) 100 MG TAB.ER.24H PO SCH (09:01)
[2020-08-24] MEDS: FAMOTIDINE 20 MG TAB PO SCH ×2 (09:01→21:44)
[2020-08-24] MEDS: APIXABAN 2.5 MG TABLET PO SCH ×2 (09:01→21:44)
--- NOTE | 2020-08-24 09:09 | XR ---
EXAMINATION TYPE: XR chest 1V portable DATE OF EXAM: 08/24/2020 COMPARISON: Chest x-ray 08/21/2020 HISTORY: Covid pneumonia TECHNIQUE: Single frontal view of the chest is obtained. FINDINGS: Bilateral airspace disease is thought to have progressed somewhat in the interval on the r ight. No evident pneumothorax or sizable effusion. Cardiac mediastinal silhouette is unchanged. The p acemaker is stable. IMPRESSION: Pneumonia may have worsened in the interval.
[2020-08-24 09:18] LABS: Albumin 3.4 g/dL (3.5-5.0); C Reactive Protein 4.3 mg/dL (<1.0); Calcium 8.4 mg/dL (8.4-10.2); Potassium 4.3 mmol/L (3.5-5.1); Total Bilirubin 0.6 mg/dL (0.2-1.3)
[2020-08-24] MEDS ORDERED: DEXTROSE 5% IN WATER 100 ML with AMIODARONE 150 MG IV ONE (10:15)
[2020-08-24] MEDS ORDERED: AMIODARONE 360 MG in DEXTROSE 5% IN WATER 200 ML IV ONE ×2 (10:30)
[2020-08-24 11:36] LABS: Glucose,Whole Blood 375 mg/dL (75-99)
--- NOTE | 2020-08-24 13:09 | P.PN ---
Subjective Progress Note Date: 08/24/20 HISTORY OF PRESENT ILLNESS: This is a pleasant 64-year-old male past medical history significant for paroxysmal atrial fibrillation on long-term anticoagulation, sick sinus syndrome status post permanent pacemaker implantation, nonischemic cardiomyopathy, chronic systolic heart failure, obstructive sleep apnea, COPD, hypertension, dyslipidemia, chronic kidney disease and obstructive sleep apnea. He follows in the office with Dr. Landeros. We have been asked to see in consultation for A. fib with RVR. He is currently being treated for COVID-19. Last night telemetry tracings indicated he went into atrial fibrillation with heart rate of 120 230 bpm. He was initiated on IV Cardizem. Currently he continues to be in A. fib with heart rate in the 70s. Most recent echocardiogram obtained in 08/03/2020 revealed impaired LV systolic function with ejection fraction 30-35%, moderate MR, mild TR and borderline pulmonary hypertension with an RVSP of 38 mmHg. EKG reveals on arrival revealed sinus bradycardia heart rate of 51. Telemetry tracings indicate atrial fibrillation. Chest xray on admission reveals bilateral air space disease worse in the right upper lobe. Repeat yesterday reveals multifocal pneumonia stable from previous study. Laboratory reviewed, CBC 3.5, hemoglobin 9.5, platelets 104, sodium 136, potassium 3.3, creatinine 1.52, magnesium on admission 1.7, troponin 0.056 and procalcitonin on an 0.46. The patient is COVID positive. Current cardiac medications include Eliquis 2.5 mg twice a day, aspirin 81 mg daily, chlorthalidone 25 mg daily, Lasix 60 mg twice a day and Toprol 100 mg daily. 08/24/2020 Patient examined this morning at the bedside by Dr. Mendez. Patient is on 12L high flow nasal cannula with oxygen saturations greater than 92%. Blood pressure 113/62. Telemetry reveals atrial fibrillation with uncontrolled ventricular rate in the 120s. PHYSICAL EXAM: VITAL SIGNS: Reviewed. GENERAL: Well-developed in no acute distress. NECK: Supple. No JVD or thyromegaly LUNGS: Respirations even and unlabored. Lungs diminished to auscultation bilaterally. HEART: Tachycardic. Irregular rate and rhythm. S1 and S2 heard. Systolic murmur noted. EXTREMITIES: Normal range of motion. No clubbing or cyanosis. Peripheral pulses intact. Edema present to bilateral lower extremities with evidence of mottling. ASSESSMENT: COVID 19 pneumonia Paroxysmal atrial fibrillation with rapid ventricular response on eliquis COPD Lower extremity cellulitus Non-ischemic cardiomyopathy Hypertension Chronic systolic heart failure Hypertension Dyslipidemia Diabetes mellitus PLAN: Continue anticoagulation with Eliquis Continue Toprol 100 mg in the morning and 50 mg in the evening Begin IV amio bolus and infusion per protocol Continue telemetry monitoring Wean oxygen as tolerated Further recommendations pending patient course Nurse practitioner note has been reviewed by physician. Signing provider agrees with the documented findings, assessment, and plan of care. Objective - Vital Signs Vital signs: Vital Signs Temp 97.6 F 08/24/20 04:00 Pulse 122 H 08/24/20 12:15 Resp 32 H 08/24/20 12:15 BP 113/62 08/24/20 12:15 Pulse Ox 92 L 08/24/20 12:15 Intake & Output 08/23/20 08/24/20 08/24/20 18:59 06:59 18:59 Intake Total 740 180 Output Total 200 1610 Balance 540 -1610 180 Intake: Intake, IV Titration 100 Amount Cefepime 2 gm In Sodium 100 Chloride 0.9% 100 ml @ 25 mls/hr IVPB Q12HR [facility] Rx #:[id number] Oral 640 180 Output: Urine 200 1610 Other: Voiding Method Urinal Urinal # Voids 1 # Bowel Movements 1 1 - Labs CBC & Chem 7: 08/24/20 08:09 08/24/20 08:09 Labs: Abnormal Lab Results - Last 24 Hours (Table) 08/23/20 08/23/20 08/24/20 Range/Units 16:35 20:36 05:55 RBC (4.30-5.90) m/uL Hgb (13.0-17.5) gm/dL Hct (39.0-53.0) % MCHC (31.0-37.0) g/dL Plt Count (150-450) k/uL Lymphocytes # (1.0-4.8) k/uL D-Dimer (<0.60) mg/L FEU Sodium (137-145) mmol/L Chloride (98-107) mmol/L Carbon Dioxide (22-30) mmol/L BUN (9-20) mg/dL Creatinine (0.66-1.25) mg/dL Glucose (74-99) mg/dL POC Glucose (mg/dL) 266 H 261 H 123 H (75-99) mg/dL Lactate Dehydrogenase (313-618) U/L C-Reactive Protein (<1.0) mg/dL Total Protein (6.3-8.2) g/dL Albumin (3.5-5.0) g/dL 08/24/20 08/24/20 08/24/20 Range/Units 08:09 08:09 08:09 RBC 3.47 L (4.30-5.90) m/uL Hgb 10.2 L (13.0-17.5) gm/dL Hct 33.9 L (39.0-53.0) % MCHC 30.1 L (31.0-37.0) g/dL Plt Count 104 L (150-450) k/uL Lymphocytes # 0.3 L (1.0-4.8) k/uL D-Dimer 0.98 H (<0.60) mg/L FEU Sodium 136 L (137-145) mmol/L Chloride 90 L (98-107) mmol/L Carbon Dioxide 40 H (22-30) mmol/L BUN 58 H (9-20) mg/dL Creatinine 1.40 H (0.66-1.25) mg/dL Glucose 207 H (74-99) mg/dL POC Glucose (mg/dL) (75-99) mg/dL Lactate Dehydrogenase 710 H (313-618) U/L C-Reactive Protein 4.3 H (<1.0) mg/dL Total Protein 6.0 L (6.3-8.2) g/dL Albumin 3.4 L (3.5-5.0) g/dL 08/24/20 Range/Units 11:35 RBC (4.30-5.90) m/uL Hgb (13.0-17.5) gm/dL Hct (39.0-53.0) % MCHC (31.0-37.0) g/dL Plt Count (150-450) k/uL Lymphocytes # (1.0-4.8) k/uL D-Dimer (<0.60) mg/L FEU Sodium (137-145) mmol/L Chloride (98-107) mmol/L Carbon Dioxide (22-30) mmol/L BUN (9-20) mg/dL Creatinine (0.66-1.25) mg/dL Glucose (74-99) mg/dL POC Glucose (mg/dL) 375 H (75-99) mg/dL Lactate Dehydrogenase (313-618) U/L C-Reactive Protein (<1.0) mg/dL Total Protein (6.3-8.2) g/dL Albumin (3.5-5.0) g/dL Microbiology - Last 24 Hours (Table) 08/20/20 13:57 Blood Culture - Preliminary Blood No Growth after 72 hours 08/20/20 13:56 Blood Culture - Preliminary Blood No Growth after 72 hours
[2020-08-24] MEDS: HYDROcodone/APAP 10-325MG 1 EACH TAB PO PRN ×2 (14:17→22:48)
--- NOTE | 2020-08-24 15:47 | P.PN ---
Subjective Progress Note Date: 08/24/20 Principal diagnosis: Acute hypoxic respiratory failure secondary to acute COVID-19 pneumonia and severe COPD FEV1 of 22%. 64-year-old male patient, came into the hospital because of worsening shortness of breath a few days duration. He was brought in via EMS. He was having oxygen desaturation. The patient in the emergency was started on BiPAP treatment. His wbc was 1.5 and a d-dimer was 0.4 with a creatinine of 1.6 and a sodium level of 134. His LDH level was 1024 at the CRP level was 178. The patient's troponin level was 0.05 and the propofol level was 0.4. The chest x-ray showed bilateral airspace disease right more than left more so in the right upper lobe. For now, the patient is still on a BiPAP at 14/6 with an FiO2 of 50%. He is currently on IV Solu-Medrol 60 mg every 6 hours. He is on long-term anticoagulation with Eliquis 2.5 mg by mouth twice a day. He is also on Spiriva and albuterol HFA regarding his COPD. Is taking Levemir insulin 40 units along with a NovoLog sliding scale coverage. While in the BiPAP, the patient is able to generate tidal volumes of 100 mL with a rate of 20. He has a full face mask and is able to tolerate the treatment without any major difficulties with an FiO2 of 50%.Note that the patient was in the hospital on 08/02/2020 and the patient was Hospital as for CHF, lower extremity edema and a component of COPD exacerbation. Back then, his COVID-19 testing was negative. On today's evaluation of 08/22/2020 the patient is on 15 L of oxygen by nasal cannula and was taken off the BiPAP. Feeling better. Maintaining her pulse ox above 90%. The patient otherwise has no new complaints. He was seen in consultation yesterday and he was on a BiPAP treatment back then. He continues to have extensive consolidation of the right upper lobe based on earlier chest x-rays. His COVID-19 testing was positive. His cough has been on the case mucous with them. His pro-calcitonin level was 0.46. We were considering Tocilizumab treatment on this patient if his condition would get worse. For now, he is looking better. On 08/23/2020 patient seen in follow-up on selective care unit, he is resting in bed, he is on 8 L of oxygen, pulse ox is 91%, FiO2 has been weaned down, his breathing seems to be stable, improving, he does get short of breath with exertion, at times he is able to bring up some colored sputum, his been afebrile, no complaints of chest pain, his only complaint today is that he is unable to sleep at night. No new chest x-rays, these labs have been reviewed, showing a little, 3.5, hemoglobin is 9.5, sodium is 136, potassium is 3.3, chloride is 89, CO2 42, BUN is 57, creatinine is 1.5. he remains on oral Lasix 60 mg twice daily, he is on Eliquis 2.5 mg daily, she is on IV Solu-Medrol 40 mg every 8 hours. Fever or chills, his blood cultures have been negative, Patient was reevaluated today on 08/24/2020, patient is now on 12 L oxygen high flow cannula, with O2 saturation in the low 90s. Patient seems to be in minimal respiratory distress, slightly tachypneic and tachycardic. CBC is relatively normal however hemoglobin is 10.2, d-dimer 0.98 Normal BUN is 58 creatinine 1.40 bicarb is 40. Blood sugar is 375, C-reactive protein is elevated at 4.3 and LDH is elevated at 710 chest x-ray showed slight worsening of his pneumonic process. However his pneumonia seems to be mostly affecting most of the right lung, and minimal involvement of the left lower lobe Objective - Vital Signs Vital signs: Vital Signs Temp 97.6 F 08/24/20 04:00 Pulse 122 H 08/24/20 12:15 Resp 32 H 08/24/20 12:15 BP 113/62 08/24/20 12:15 Pulse Ox 92 L 08/24/20 12:15 Intake & Output 08/23/20 08/24/20 08/24/20 18:59 06:59 18:59 Intake Total 740 180 Output Total 200 1610 100 Balance 540 -1610 80 Intake: Intake, IV Titration 100 Amount Cefepime 2 gm In Sodium 100 Chloride 0.9% 100 ml @ 25 mls/hr IVPB Q12HR [facility] Rx #:[id number] Oral 640 180 Output: Urine 200 1610 100 Other: Voiding Method Urinal Urinal # Voids 1 # Bowel Movements 1 1 - Exam Physical Exam: Revealed a 64-year-old white male on 12 L high flow cannula. Head: Atraumatic, normocephalic. HEENT:[Neck is supple.] [No neck masses.] [No thyromegaly.] [No JVD.] Chest: [Symmetrical chest expansion, crackles at the bases. Cardiac Exam: [Normal S1 and S2, no S3 gallop, no murmur.] Abdomen: [Soft, nontender, no megaly, no rebound, no guarding, normal bowel sounds.] Extremities: [No clubbing, no edema, no cyanosis.] Neurological Exam: [No focal neurologic deficit.] Alert and oriented 3. No focal deficits. Psychiatric: Normal mood affect and normal mental status examination. Skin: No rashes. Musculoskeletal: No deformities and no limitation in range of motion - Labs CBC & Chem 7: 08/24/20 08:09 08/24/20 08:09 Labs: Abnormal Lab Results - Last 24 Hours (Table) 08/23/20 08/23/20 08/24/20 Range/Units 16:35 20:36 05:55 RBC (4.30-5.90) m/uL Hgb (13.0-17.5) gm/dL Hct (39.0-53.0) % MCHC (31.0-37.0) g/dL Plt Count (150-450) k/uL Lymphocytes # (1.0-4.8) k/uL D-Dimer (<0.60) mg/L FEU Sodium (137-145) mmol/L Chloride (98-107) mmol/L Carbon Dioxide (22-30) mmol/L BUN (9-20) mg/dL Creatinine (0.66-1.25) mg/dL Glucose (74-99) mg/dL POC Glucose (mg/dL) 266 H 261 H 123 H (75-99) mg/dL Lactate Dehydrogenase (313-618) U/L C-Reactive Protein (<1.0) mg/dL Total Protein (6.3-8.2) g/dL Albumin (3.5-5.0) g/dL 08/24/20 08/24/20 08/24/20 Range/Units 08:09 08:09 08:09 RBC 3.47 L (4.30-5.90) m/uL Hgb 10.2 L (13.0-17.5) gm/dL Hct 33.9 L (39.0-53.0) % MCHC 30.1 L (31.0-37.0) g/dL Plt Count 104 L (150-450) k/uL Lymphocytes # 0.3 L (1.0-4.8) k/uL D-Dimer 0.98 H (<0.60) mg/L FEU Sodium 136 L (137-145) mmol/L Chloride 90 L (98-107) mmol/L Carbon Dioxide 40 H (22-30) mmol/L BUN 58 H (9-20) mg/dL Creatinine 1.40 H (0.66-1.25) mg/dL Glucose 207 H (74-99) mg/dL POC Glucose (mg/dL) (75-99) mg/dL Lactate Dehydrogenase 710 H (313-618) U/L C-Reactive Protein 4.3 H (<1.0) mg/dL Total Protein 6.0 L (6.3-8.2) g/dL Albumin 3.4 L (3.5-5.0) g/dL 08/24/20 Range/Units 11:35 RBC (4.30-5.90) m/uL Hgb (13.0-17.5) gm/dL Hct (39.0-53.0) % MCHC (31.0-37.0) g/dL Plt Count (150-450) k/uL Lymphocytes # (1.0-4.8) k/uL D-Dimer (<0.60) mg/L FEU Sodium (137-145) mmol/L Chloride (98-107) mmol/L Carbon Dioxide (22-30) mmol/L BUN (9-20) mg/dL Creatinine (0.66-1.25) mg/dL Glucose (74-99) mg/dL POC Glucose (mg/dL) 375 H (75-99) mg/dL Lactate Dehydrogenase (313-618) U/L C-Reactive Protein (<1.0) mg/dL Total Protein (6.3-8.2) g/dL Albumin (3.5-5.0) g/dL Microbiology - Last 24 Hours (Table) 08/20/20 13:57 Blood Culture - Preliminary Blood No Growth after 72 hours 08/20/20 13:56 Blood Culture - Preliminary Blood No Growth after 72 hours Assessment and Plan Assessment: Impression: Acute on chronic hypoxic respiratory failure, multifactorial secondary to acute COVID-19 pneumonia, and severe COPD exacerbation, underlying community-acquired pneumonia is not entirely ruled out. But felt to be less likely. Possible component of chronic systolic congestive heart failure Severe COPD exacerbation FEV1 is normal at 22%. Patient is normally on oxygen at home, he is on 5 L Acute cellulitis of lower extremities. Chronic systolic congestive heart failure, ejection fraction of 30% History of diverticular disease/diverticulosis. Acute kidney injury. History of pacemaker implantation. History of obstructive sleep apnea syndrome. History of left sided pneumothorax, required chest tube insertion. History of alcoholism. Recommendation: Continue present supportive care measures. Continue oxygen. Continue IV steroids. Continue oral anticoagulation. Continue incentive spirometry. Continue to monitor inflammatory markers Continue Eliquis. Continue cefepime empirically Continue the COVID-19 cocktail. Prognosis is guarded, we'll continue to follow Time with Patient: Less than 30
[2020-08-24 16:41] LABS: Glucose,Whole Blood 134 mg/dL (75-99)
[2020-08-24] MEDS: AMIODARONE 450 MG in DEXTROSE 5% IN WATER 250 ML IV SCH ×2 (16:55)
[2020-08-24 20:26] LABS: Glucose,Whole Blood 63 mg/dL (75-99)
[2020-08-24 20:43] LABS: Glucose,Whole Blood 100 mg/dL (75-99)
[2020-08-24] MEDS: METOPROLOL SUCCINATE (ER) 50 MG TAB.ER.24H PO SCH (21:44)
[2020-08-24] MEDS: SODIUM CHLORIDE 0.9% 1,000 ML IV SCH (21:45)
[2020-08-24] MEDS: ALPRAZolam 0.5 MG TAB PO PRN (22:49)
--- NOTE | 2020-08-24 23:56 | P.PN ---
Subjective Progress Note Date: 08/22/20 Principal diagnosis: Acute hypoxic respiratory failure Covid and pneumonia Patient is a 64-year-old male with a known history of atrial fibrillation on anticoagulation with Eliquis, history of pacemaker placement due to SSS, chronic CHF with systolic dysfunction ejection fraction 35%, COPD on home oxygen 5 L via nasal cannula, hypertension, diabetes type 2 [id number], obstructive sleep apnea, previous history of alcohol abuse/DTs, BPH, CKD stage III, bilateral lower extremity peripheral neuropathy and previous history of smoking other multiple medical problems presents to ER with complaints of worsening shortness of breath for the past 2 to 3 days. Patient was presents to ER due to respiratory distress by EMS. Patient was placed on 9% nonrebreather and was saturating at 80%. Patient was started on BiPAP while in the ER. Otherwise patient has been afebrile. No complaints of nausea vomiting or abdominal pain or diarrhea. Laboratory data showed blood pressure 107/95 respiration 26 pulse is 120 and 100% nonrebreather on admission. Laboratory data showed WBC 4.9 hemoglobin 11.5 platelets 102 chloride 84 sodium 134 bicarb 44 BUN 16 creatinine 1.73 and Troponin 0 0.056, CRP 178 and coronavirus PCR detected. Chest x-ray showed correlate for pneumonia. Edema not excluded. Follow-up suggested. Patient was recently discharged admitted to the hospital from 08/02/2020 to 08/10/2020 08/21/2020 Patient is currently on BiPAP with FiO2 50%. Saturating at 88 to 90%. Awake alert oriented x3. Able to communicate. Patient has been afebrile. No complaints of chest pain. Patient is complaining of bilateral lower extremity pain and requesting pain medications. No diarrhea or dysuria. No nausea or vomiting. Chest x-ray showed multifocal pneumonia is stable. Due to elevated procalcitonin level 0.46 and recent sputum cultures growing Pseudomonas. Patient was be started on cefepime. Pulmonary is on board. Laboratory data showed WBC 1.5 hemoglobin 9.3 platelets 86 lymphocytes 0.4 D-dimer is 0.43 Sodium 134 potassium 4.1 chloride 87 bicarb is 39 BUN 56 and creatinine 1.6 Patient is being continued on IV Solu-Medrol, Eliquis and multivitamins. 08/22/2020 Patient is currently on 15 L 100% nonrebreather. BiPAP has been discontinued. Patient states that he feels better. No complaints of chest pain or worsening shortness breath. Patient is being continued antibiotics in the form of cefepime due to recent sputum cultures positive for Pseudomonas. Blood cultures have been negative so far. No complaints of chest pain. Patient does have cough without sputum production. No nausea vomiting or abdominal pain or diarrhea. Pulmonary is on board. Current medications reviewed. Objective - Vital Signs Vital signs: Vital Signs Temp 97.9 F 08/22/20 16:00 Pulse 110 H 08/22/20 16:00 Resp 22 08/22/20 16:00 BP 126/64 08/22/20 16:00 Pulse Ox 96 08/22/20 16:01 Intake & Output 08/21/20 08/22/20 08/22/20 18:59 06:59 18:59 Intake Total 1040 580 Output Total 600 500 Balance 440 -500 580 Weight 113.5 kg 112 kg Intake: Intake, IV Titration 400 Amount Sodium Chloride 0.9% 1, 400 000 ml @ 50 mls/hr IV . Q20H [facility] Rx#:[id number] Oral 640 580 Output: Urine 600 500 Other: Voiding Method Urinal Urinal Urinal # Voids 3 - Exam PHYSICAL EXAMINATION: Patient is lying in the bedHe appears to be in distress due to shortness of breath and is currently on BiPAP., awake alert and oriented.. HEENT: Normocephalic. Neck is supple. Pupils reactive. Nostrils clear. Oral cavity is moist. Ears reveal no drainage. Neck reveals no JVD, carotid bruits, or thyromegaly. CHEST EXAMINATION: Trachea is central. Symmetrical expansion.Bibasilar diminished air entry and mild expiratory wheeze . CARDIAC: Normal S1, S2 with no gallops. No murmurs ABDOMEN: Soft. Bowel sounds normal. No organomegaly. No abdominal bruits. Extremities: 2+ edema. leg wounds /sores . No clubbing or cyanosis Neurologically awake, alert, oriented x3 with well-coordinated movements. No focal deficits noted Skin: No rash or skin lesions. Psychiatric: Coperative. Nonsuicidal Musculoskeletal: No joint swelling or deformity. Normal range of motion. - Labs CBC & Chem 7: 08/24/20 08:09 08/24/20 08:09 Labs: Abnormal Lab Results - Last 24 Hours (Table) 0408/21/20 08/22/20 Range/Units 16:49 20:08 06:00 RBC (4.30-5.90) m/uL Hgb (13.0-17.5) gm/dL Hct (39.0-53.0) % Plt Count (150-450) k/uL Lymphocytes # (1.0-4.8) k/uL Sodium (137-145) mmol/L Chloride (98-107) mmol/L Carbon Dioxide (22-30) mmol/L BUN (9-20) mg/dL Creatinine (0.66-1.25) mg/dL Glucose (74-99) mg/dL POC Glucose (mg/dL) 244 H 264 H 210 H (75-99) mg/dL Calcium (8.4-10.2) mg/dL C-Reactive Protein (<1.0) mg/dL 08/22/20 08/22/20 08/22/20 Range/Units 10:02 10:02 11:41 RBC 3.33 L (4.30-5.90) m/uL Hgb 10.0 L (13.0-17.5) gm/dL Hct 31.6 L (39.0-53.0) % Plt Count 104 L (150-450) k/uL Lymphocytes # 0.2 L (1.0-4.8) k/uL Sodium 134 L (137-145) mmol/L Chloride 88 L (98-107) mmol/L Carbon Dioxide 38 H (22-30) mmol/L BUN 55 H (9-20) mg/dL Creatinine 1.52 H (0.66-1.25) mg/dL Glucose 267 H (74-99) mg/dL POC Glucose (mg/dL) 271 H (75-99) mg/dL Calcium 8.2 L (8.4-10.2) mg/dL C-Reactive Protein 6.8 H (<1.0) mg/dL 08/22/20 Range/Units 16:40 RBC (4.30-5.90) m/uL Hgb (13.0-17.5) gm/dL Hct (39.0-53.0) % Plt Count (150-450) k/uL Lymphocytes # (1.0-4.8) k/uL Sodium (137-145) mmol/L Chloride (98-107) mmol/L Carbon Dioxide (22-30) mmol/L BUN (9-20) mg/dL Creatinine (0.66-1.25) mg/dL Glucose (74-99) mg/dL POC Glucose (mg/dL) 181 H (75-99) mg/dL Calcium (8.4-10.2) mg/dL C-Reactive Protein (<1.0) mg/dL Microbiology - Last 24 Hours (Table) 08/20/20 13:57 Blood Culture - Preliminary Blood No Growth after 48 hours 08/20/20 13:56 Blood Culture - Preliminary Blood No Growth after 48 hours Assessment and Plan Assessment: Acute COVID-19 pneumonia Acute on chronic hypoxic and hypercapnic respiratory failure due to Covid pneumonia with underlying COPD Possible bacterial pneumonia with recent sputum cultures growing Pseudomonas. Chronic hypoxic respiratory failure secondary to COPD on 5 L. On prednisone 20 mg daily oxygen via nasal cannula at home. Chronic CHF with systolic dysfunction ejection fraction 35% Nonischemic cardiomyopathy acute on chronic kidney disease stage III with baseline creatinine 1.1. 1.71 on admission Bilateral lower extremity swelling history of alcohol abuse and DTs Diabetes type 2 insulin-dependent Hypertension Hyperlipidemia Obstructive sleep apnea not on CPAP at home Permanent atrial fibrillation on anticoagulation with Eliquis. Considering ablation as an outpatient. Status post pacemaker placement. Patient history of smoking DVT prophylaxis patient is already on Eliquis. Plan: Patient is currently on BiPAP. Was given IV Solu-Medrol 125 mg x 1. Patient will be continued on 60mg Q6 and multivitamins and Eliquis. Started on cefepime 2 g every 12. Follow-up inflammatory markers. Patient may be a candidate for remdesivir course. Continue with midodrine and Lasix dose as blood pressure tolerated. c/w tele Pulmonary was consulted. Continue to follow closely. Monitor renal function. Prognosis guarded at this time.. Time with Patient: Greater than 30
--- NOTE | 2020-08-25 | P.PN ---
Subjective Progress Note Date: 08/23/20 Principal diagnosis: Acute hypoxic respiratory failure Covid and pneumonia Patient is a 64-year-old male with a known history of atrial fibrillation on anticoagulation with Eliquis, history of pacemaker placement due to SSS, chronic CHF with systolic dysfunction ejection fraction 35%, COPD on home oxygen 5 L via nasal cannula, hypertension, diabetes type 2 [id number], obstructive sleep apnea, previous history of alcohol abuse/DTs, BPH, CKD stage III, bilateral lower extremity peripheral neuropathy and previous history of smoking other multiple medical problems presents to ER with complaints of worsening shortness of breath for the past 2 to 3 days. Patient was presents to ER due to respiratory distress by EMS. Patient was placed on 9% nonrebreather and was saturating at 80%. Patient was started on BiPAP while in the ER. Otherwise patient has been afebrile. No complaints of nausea vomiting or abdominal pain or diarrhea. Laboratory data showed blood pressure 107/95 respiration 26 pulse is 120 and 100% nonrebreather on admission. Laboratory data showed WBC 4.9 hemoglobin 11.5 platelets 102 chloride 84 sodium 134 bicarb 44 BUN 16 creatinine 1.73 and Troponin 0 0.056, CRP 178 and coronavirus PCR detected. Chest x-ray showed correlate for pneumonia. Edema not excluded. Follow-up suggested. Patient was recently discharged admitted to the hospital from 08/02/2020 to 08/10/2020 08/21/2020 Patient is currently on BiPAP with FiO2 50%. Saturating at 88 to 90%. Awake alert oriented x3. Able to communicate. Patient has been afebrile. No complaints of chest pain. Patient is complaining of bilateral lower extremity pain and requesting pain medications. No diarrhea or dysuria. No nausea or vomiting. Chest x-ray showed multifocal pneumonia is stable. Due to elevated procalcitonin level 0.46 and recent sputum cultures growing Pseudomonas. Patient was be started on cefepime. Pulmonary is on board. Laboratory data showed WBC 1.5 hemoglobin 9.3 platelets 86 lymphocytes 0.4 D-dimer is 0.43 Sodium 134 potassium 4.1 chloride 87 bicarb is 39 BUN 56 and creatinine 1.6 Patient is being continued on IV Solu-Medrol, Eliquis and multivitamins. 08/22/2020 Patient is currently on 15 L 100% nonrebreather. BiPAP has been discontinued. Patient states that he feels better. No complaints of chest pain or worsening shortness breath. Patient is being continued antibiotics in the form of cefepime due to recent sputum cultures positive for Pseudomonas. Blood cultures have been negative so far. No complaints of chest pain. Patient does have cough without sputum production. No nausea vomiting or abdominal pain or diarrhea. Pulmonary is on board. 08/23/2020 Patient is currently sitting on the side of the bed. On percent nonrebreather which is being transitioned to 8 L oxygen via nasal cannula. Arrest patient went into atrial fibrillation with rapid regular rate overnight. Cardiology was consulted. Was started on Cardizem drip which is transitioned to Toprol-XL. Continue with Eliquis. No complaints of chest pain or shortness of breath no nausea vomiting abdominal pain or diarrhea. Laboratory showed WBC 3.5 hemoglobin 9.5 platelets 87 bicarb is 42 potassium 3.3 BUN 57 and creatinine 1.52 and blood sugar is 125. Patient is being continued IV Solu-Medrol, antibiotics, cefepime and Lasix 60 mg twice daily and insulin regimen. Current medications reviewed. Objective - Vital Signs Vital signs: Vital Signs Temp 97.3 F L 08/23/20 12:48 Pulse 74 08/23/20 12:48 Resp 20 08/23/20 12:48 BP 96/67 08/23/20 08:30 Pulse Ox 91 L 08/23/20 12:48 Intake & Output 08/22/20 08/23/20 08/23/20 18:59 06:59 18:59 Intake Total 880 500 Output Total 250 1550 200 Balance 630 -1550 300 Weight 114.5 kg Intake: Intake, IV Titration 100 Amount Cefepime 2 gm In Sodium 100 Chloride 0.9% 100 ml @ 25 mls/hr IVPB Q12HR [facility] Rx #:[id number] Oral 880 400 Output: Urine 250 1550 200 Other: Voiding Method Urinal # Voids 3 - Exam PHYSICAL EXAMINATION: Patient is lying in the bed no distress, awake alert and oriented.. HEENT: Normocephalic. Neck is supple. Pupils reactive. Nostrils clear. Oral cavity is moist. Ears reveal no drainage. Neck reveals no JVD, carotid bruits, or thyromegaly. CHEST EXAMINATION: Trachea is central. Symmetrical expansion.Bibasilar diminished air entry and mild expiratory wheeze . CARDIAC: Normal S1, S2 with no gallops. No murmurs ABDOMEN: Soft. Bowel sounds normal. No organomegaly. No abdominal bruits. Extremities: 2+ edema. leg wounds /sores . No clubbing or cyanosis Neurologically awake, alert, oriented x3 with well-coordinated movements. No focal deficits noted Skin: No rash or skin lesions. Psychiatric: Coperative. Nonsuicidal Musculoskeletal: No joint swelling or deformity. Normal range of motion. - Labs CBC & Chem 7: 08/24/20 08:09 08/24/20 08:09 Labs: Abnormal Lab Results - Last 24 Hours (Table) 08/22/20 08/22/20 08/23/20 Range/Units 16:40 20:07 06:56 WBC (3.8-10.6) k/uL RBC (4.30-5.90) m/uL Hgb (13.0-17.5) gm/dL Hct (39.0-53.0) % MCHC (31.0-37.0) g/dL Plt Count (150-450) k/uL Lymphocytes # (1.0-4.8) k/uL Sodium (137-145) mmol/L Potassium (3.5-5.1) mmol/L Chloride (98-107) mmol/L Carbon Dioxide (22-30) mmol/L BUN (9-20) mg/dL Creatinine (0.66-1.25) mg/dL Glucose (74-99) mg/dL POC Glucose (mg/dL) 181 H 224 H 123 H (75-99) mg/dL Calcium (8.4-10.2) mg/dL 08/23/20 08/23/20 08/23/20 Range/Units 07:56 07:56 11:50 WBC 3.5 L (3.8-10.6) k/uL RBC 3.27 L (4.30-5.90) m/uL Hgb 9.5 L (13.0-17.5) gm/dL Hct 31.0 L (39.0-53.0) % MCHC 30.5 L (31.0-37.0) g/dL Plt Count 87 L (150-450) k/uL Lymphocytes # 0.3 L (1.0-4.8) k/uL Sodium 136 L (137-145) mmol/L Potassium 3.3 L (3.5-5.1) mmol/L Chloride 89 L (98-107) mmol/L Carbon Dioxide 42 H* (22-30) mmol/L BUN 57 H (9-20) mg/dL Creatinine 1.52 H (0.66-1.25) mg/dL Glucose 125 H (74-99) mg/dL POC Glucose (mg/dL) 215 H (75-99) mg/dL Calcium 8.1 L (8.4-10.2) mg/dL Microbiology - Last 24 Hours (Table) 08/20/20 13:57 Blood Culture - Preliminary Blood No Growth after 48 hours 08/20/20 13:56 Blood Culture - Preliminary Blood No Growth after 48 hours Assessment and Plan Assessment: Acute COVID-19 pneumonia Acute on chronic hypoxic and hypercapnic respiratory failure due to Covid pneumonia with underlying COPD Paroxysmal atrial fibrillation with rapid regular rate Possible bacterial pneumonia with recent sputum cultures growing Pseudomonas. Chronic hypoxic respiratory failure secondary to COPD on 5 L. On prednisone 20 mg daily oxygen via nasal cannula at home. Chronic CHF with systolic dysfunction ejection fraction 35% Nonischemic cardiomyopathy acute on chronic kidney disease stage III with baseline creatinine 1.1. 1.71 on admission Bilateral lower extremity swelling history of alcohol abuse and DTs Diabetes type 2 insulin-dependent Hypertension Hyperlipidemia Obstructive sleep apnea not on CPAP at home Hx of PAF on anticoagulation with Eliquis. Considering ablation as an outpatient. Status post pacemaker placement. Patient history of smoking DVT prophylaxis patient is already on Eliquis. Plan: Patient is currently on BiPAP. Was given IV Solu-Medrol 125 mg x 1. Patient will be continued on 60mg Q6 and multivitamins and Eliquis. Started on cefepime 2 g every 12. Follow-up inflammatory markers. Patient may be a candidate for remdesivir course. Continue with midodrine and Lasix dose as blood pressure tolerated. c/w tele Pulmonary was consulted. Continue to follow closely. Monitor renal function. Prognosis guarded at this time.. Time with Patient: Greater than 30
--- NOTE | 2020-08-25 00:03 | P.PN ---
Subjective Progress Note Date: 08/24/20 Principal diagnosis: Acute hypoxic respiratory failure Covid and pneumonia Patient is a 64-year-old male with a known history of atrial fibrillation on anticoagulation with Eliquis, history of pacemaker placement due to SSS, chronic CHF with systolic dysfunction ejection fraction 35%, COPD on home oxygen 5 L via nasal cannula, hypertension, diabetes type 2 [id number], obstructive sleep apnea, previous history of alcohol abuse/DTs, BPH, CKD stage III, bilateral lower extremity peripheral neuropathy and previous history of smoking other multiple medical problems presents to ER with complaints of worsening shortness of breath for the past 2 to 3 days. Patient was presents to ER due to respiratory distress by EMS. Patient was placed on 9% nonrebreather and was saturating at 80%. Patient was started on BiPAP while in the ER. Otherwise patient has been afebrile. No complaints of nausea vomiting or abdominal pain or diarrhea. Laboratory data showed blood pressure 107/95 respiration 26 pulse is 120 and 100% nonrebreather on admission. Laboratory data showed WBC 4.9 hemoglobin 11.5 platelets 102 chloride 84 sodium 134 bicarb 44 BUN 16 creatinine 1.73 and Troponin 0 0.056, CRP 178 and coronavirus PCR detected. Chest x-ray showed correlate for pneumonia. Edema not excluded. Follow-up suggested. Patient was recently discharged admitted to the hospital from 08/02/2020 to 08/10/2020 08/21/2020 Patient is currently on BiPAP with FiO2 50%. Saturating at 88 to 90%. Awake alert oriented x3. Able to communicate. Patient has been afebrile. No complaints of chest pain. Patient is complaining of bilateral lower extremity pain and requesting pain medications. No diarrhea or dysuria. No nausea or vomiting. Chest x-ray showed multifocal pneumonia is stable. Due to elevated procalcitonin level 0.46 and recent sputum cultures growing Pseudomonas. Patient was be started on cefepime. Pulmonary is on board. Laboratory data showed WBC 1.5 hemoglobin 9.3 platelets 86 lymphocytes 0.4 D-dimer is 0.43 Sodium 134 potassium 4.1 chloride 87 bicarb is 39 BUN 56 and creatinine 1.6 Patient is being continued on IV Solu-Medrol, Eliquis and multivitamins. 08/22/2020 Patient is currently on 15 L 100% nonrebreather. BiPAP has been discontinued. Patient states that he feels better. No complaints of chest pain or worsening shortness breath. Patient is being continued antibiotics in the form of cefepime due to recent sputum cultures positive for Pseudomonas. Blood cultures have been negative so far. No complaints of chest pain. Patient does have cough without sputum production. No nausea vomiting or abdominal pain or diarrhea. Pulmonary is on board. 08/23/2020 Patient is currently sitting on the side of the bed. On percent nonrebreather which is being transitioned to 8 L oxygen via nasal cannula. Arrest patient went into atrial fibrillation with rapid regular rate overnight. Cardiology was consulted. Was started on Cardizem drip which is transitioned to Toprol-XL. Continue with Eliquis. No complaints of chest pain or shortness of breath no nausea vomiting abdominal pain or diarrhea. Laboratory showed WBC 3.5 hemoglobin 9.5 platelets 87 bicarb is 42 potassium 3.3 BUN 57 and creatinine 1.52 and blood sugar is 125. Patient is being continued IV Solu-Medrol, antibiotics, cefepime and Lasix 60 mg twice daily and insulin regimen. 08/24/2020 Patient is currently sitting on side of the bed. Still tachycardic and tachypneic. Requiring oxygen at 12 L via nasal cannula and saturating at 88%. Patient was started amiodarone drip as per cardiology. Currently on metoprolol 50 mg at bedtime and Lasix 60 mg twice daily. Cardiology and pulmonary is on board. Laboratory data showed WBC 7.1 hemoglobin 10.1 platelets 104 D-dimer 0.98 Sodium 136 potassium 4.3 BUN 58 and creatinine 1.4 bicarb is 40, LDH 710 and CRP 4.3 Chest x-ray showed pneumonia may have worsened in the interval. Current medications reviewed. Objective - Vital Signs Vital signs: Vital Signs Temp 97.0 F L 08/24/20 16:00 Pulse 117 H 08/24/20 16:00 Resp 32 H 08/24/20 16:00 BP 110/80 08/24/20 16:00 Pulse Ox 96 08/24/20 16:00 Intake & Output 08/24/20 08/24/20 08/25/20 06:59 18:59 06:59 Intake Total 180 Output Total 1610 100 Balance -1610 80 Intake: Oral 180 Output: Urine 1610 100 Other: Voiding Method Urinal Urinal # Voids 1 # Bowel Movements 1 1 - Exam PHYSICAL EXAMINATION: Patient is lying in the bed no distress, awake alert and oriented.. HEENT: Normocephalic. Neck is supple. Pupils reactive. Nostrils clear. Oral cavity is moist. Ears reveal no drainage. Neck reveals no JVD, carotid bruits, or thyromegaly. CHEST EXAMINATION: Trachea is central. Symmetrical expansion.Bibasilar diminished air entry and mild expiratory wheeze . CARDIAC: Normal S1, S2 with no gallops. No murmurs ABDOMEN: Soft. Bowel sounds normal. No organomegaly. No abdominal bruits. Extremities: 2+ edema. leg wounds /sores . No clubbing or cyanosis Neurologically awake, alert, oriented x3 with well-coordinated movements. No focal deficits noted Skin: No rash or skin lesions. Psychiatric: Coperative. Nonsuicidal Musculoskeletal: No joint swelling or deformity. Normal range of motion. - Labs CBC & Chem 7: 08/24/20 08:09 08/24/20 08:09 Labs: Abnormal Lab Results - Last 24 Hours (Table) 08/24/20 08/24/20 08/24/20 Range/Units 05:55 08:09 08:09 RBC 3.47 L (4.30-5.90) m/uL Hgb 10.2 L (13.0-17.5) gm/dL Hct 33.9 L (39.0-53.0) % MCHC 30.1 L (31.0-37.0) g/dL Plt Count 104 L (150-450) k/uL Lymphocytes # 0.3 L (1.0-4.8) k/uL D-Dimer 0.98 H (<0.60) mg/L FEU Sodium (137-145) mmol/L Chloride (98-107) mmol/L Carbon Dioxide (22-30) mmol/L BUN (9-20) mg/dL Creatinine (0.66-1.25) mg/dL Glucose (74-99) mg/dL POC Glucose (mg/dL) 123 H (75-99) mg/dL Lactate Dehydrogenase (313-618) U/L C-Reactive Protein (<1.0) mg/dL Total Protein (6.3-8.2) g/dL Albumin (3.5-5.0) g/dL 08/24/20 08/24/20 08/24/20 Range/Units 08:09 11:35 16:39 RBC (4.30-5.90) m/uL Hgb (13.0-17.5) gm/dL Hct (39.0-53.0) % MCHC (31.0-37.0) g/dL Plt Count (150-450) k/uL Lymphocytes # (1.0-4.8) k/uL D-Dimer (<0.60) mg/L FEU Sodium 136 L (137-145) mmol/L Chloride 90 L (98-107) mmol/L Carbon Dioxide 40 H (22-30) mmol/L BUN 58 H (9-20) mg/dL Creatinine 1.40 H (0.66-1.25) mg/dL Glucose 207 H (74-99) mg/dL POC Glucose (mg/dL) 375 H 134 H (75-99) mg/dL Lactate Dehydrogenase 710 H (313-618) U/L C-Reactive Protein 4.3 H (<1.0) mg/dL Total Protein 6.0 L (6.3-8.2) g/dL Albumin 3.4 L (3.5-5.0) g/dL 08/24/20 08/24/20 Range/Units 20:21 20:42 RBC (4.30-5.90) m/uL Hgb (13.0-17.5) gm/dL Hct (39.0-53.0) % MCHC (31.0-37.0) g/dL Plt Count (150-450) k/uL Lymphocytes # (1.0-4.8) k/uL D-Dimer (<0.60) mg/L FEU Sodium (137-145) mmol/L Chloride (98-107) mmol/L Carbon Dioxide (22-30) mmol/L BUN (9-20) mg/dL Creatinine (0.66-1.25) mg/dL Glucose (74-99) mg/dL POC Glucose (mg/dL) 63 L 100 H (75-99) mg/dL Lactate Dehydrogenase (313-618) U/L C-Reactive Protein (<1.0) mg/dL Total Protein (6.3-8.2) g/dL Albumin (3.5-5.0) g/dL Microbiology - Last 24 Hours (Table) 08/20/20 13:57 Blood Culture - Preliminary Blood No Growth after 96 hours 08/20/20 13:56 Blood Culture - Preliminary Blood No Growth after 96 hours Assessment and Plan Assessment: Acute COVID-19 pneumonia Acute on chronic hypoxic and hypercapnic respiratory failure due to Covid pneumonia with underlying COPD Paroxysmal atrial fibrillation with rapid regular rate Possible bacterial pneumonia with recent sputum cultures growing Pseudomonas. Chronic hypoxic respiratory failure secondary to COPD on 5 L. On prednisone 20 mg daily oxygen via nasal cannula at home. Chronic CHF with systolic dysfunction ejection fraction 35% Nonischemic cardiomyopathy acute on chronic kidney disease stage III with baseline creatinine 1.1. 1.71 on admission Bilateral lower extremity swelling history of alcohol abuse and DTs Diabetes type 2 insulin-dependent Hypertension Hyperlipidemia Obstructive sleep apnea not on CPAP at home Hx of PAF on anticoagulation with Eliquis. Considering ablation as an outpatient. Status post pacemaker placement. Patient history of smoking DVT prophylaxis patient is already on Eliquis. Plan: Patient is currently on BiPAP. Was given IV Solu-Medrol 125 mg x 1. Patient will be continued on 60mg Q6 and multivitamins and Eliquis. Started on cefepime 2 g every 12. Follow-up inflammatory markers. Patient may be a candidate for remdesivir course. Continue with midodrine and Lasix dose as blood pressure tolerated. c/w tele Pulmonary was consulted. Continue to follow closely. Monitor renal function. Prognosis guarded at this time.. Time with Patient: Greater than 30
[2020-08-25 00:50] LABS: Glucose,Whole Blood 122 mg/dL (75-99)
[2020-08-25 00:54] LABS: ABG HCO3 37 mmol/L (21-25); ABG Oxygen Saturation 87.9 % (94-97); ABG PCO2 58 mmHg (35-45); ABG PH 7.41 (7.35-7.45); ABG TCO2 38 mmol/L (19-24); Allen Test Performed? Yes
[2020-08-25] MEDS: ALBUTEROL HFA INHALER INHALATION PRN (01:05)
[2020-08-25 01:12] LABS: Basophils # (A) 0.1 k/uL (0-0.2); Basophils % (A) 1 %; Eosinophils # (A) 0.1 k/uL (0-0.7); Eosinophils % (A) 1 %; HCT 30.7 % (39.0-53.0); HGB 10.2 gm/dL (13.0-17.5); Hypochromasia Slight; Lymphocytes # (A) 0.3 k/uL (1.0-4.8); Lymphocytes % (A) 3 %; MCHC 33.2 g/dL (31.0-37.0); MCV 93.5 fL (80.0-100.0); Monocytes # (A) 0.2 k/uL (0-1.0); Monocytes % (A) 3 %; Neutrophils # (A) 7.1 k/uL (1.3-7.7); Neutrophils % (A) 91 %; Platelet Count 110 k/uL (150-450); RBC 3.28 m/uL (4.30-5.90); WBC 7.8 k/uL (3.8-10.6)
[2020-08-25 01:20] LABS: ABG PO2 54 mmHg (83-108)
[2020-08-25 01:25] LABS: Calcium 8.5 mg/dL (8.4-10.2); Potassium 4.1 mmol/L (3.5-5.1)
--- NOTE | 2020-08-25 02:54 | P.EN ---
A team note RN concerned due to worsening mental status of the patient , who seems to become more lethargic while on non rebreather. with oxygen sat 90%. patient is here for COVID pneumonia and he was recently weaned off bipap. when talked to patient , he is lethargic but arousable , only responds with brief sentences, and looks tired and sleepy. however, able to follow simple com mands. lungs has poor breath sounds throughout CXR reviewed showing no pleural effusion , but diffuse patchy infilterates. legs has chronic skin changes with edema HR 119 bpm, oxygen sat 90%, RR 28 plan obtain ABG for further evaluation I was notified by RN , that patient mentation was worsening , and he seems more lethargic, while on the bed, he could not lay down , and was tripoding on the bed. ABG showed compensated chronic hypercapnic respiratory failure, but now his oxygen sat was getting worse. and he is complaining of difficulty breathing patient initiated on bipap with settings of 14/6 patient seems to better tolerate BIpap, and is maintaining his oxygen sat around 92%. will await for couple hours to assess if this intervention improves his over all mental status continue to monitor oxygen sat 40 minutes spent in critical care time in the care of this patient
[2020-08-25] MEDS: AMIODARONE 450 MG in DEXTROSE 5% IN WATER 250 ML IV SCH ×2 (05:03)
[2020-08-25 06:13] LABS: Glucose,Whole Blood 97 mg/dL (75-99)
[2020-08-25] MEDS: INSULIN ASPART (NovoLOG) 100 UNIT/ML VIAL SQ SCH ×4 (06:51→21:34)
[2020-08-25] MEDS: MIDODRINE 5 MG TAB PO SCH ×3 (06:57→18:11)
[2020-08-25] MEDS: LEVOTHYROXINE 25 MCG TAB PO SCH (06:57)
[2020-08-25] MEDS: PANTOPRAZOLE 40 MG TABLET PO SCH (06:57)
[2020-08-25] MEDS: INSULIN DETEMIR (LEVEMIR) 100 UNIT/ML SYR SQ SCH (07:30)
[2020-08-25] MEDS: ALBUTEROL HFA INHALER INHALATION SCH ×4 (07:44→19:28)
[2020-08-25] MEDS: TIOTROPIUM 2.5 MCG INHALER INHALATION SCH (07:49)
[2020-08-25] MEDS: FUROSEMIDE 20 MG TAB PO SCH (08:26)
[2020-08-25] MEDS: methylPREDNISolone SOD SUCCI 40 MG/ML 1 ML VIAL IV SCH ×3 (08:26→23:21)
[2020-08-25] MEDS: TAMSULOSIN 0.4 MG CAP.ER.24H PO SCH (08:26)
[2020-08-25] MEDS: guaiFENesin 600 MG TABLET.ER PO SCH ×2 (08:26→21:34)
[2020-08-25] MEDS: CEFEPIME 2 GM in SODIUM CHLORIDE 0.9% 100 ML IVPB SCH ×2 (08:26→20:14)
[2020-08-25] MEDS: ZINC SULFATE 220 MG CAP PO SCH (08:27)
[2020-08-25] MEDS: FAMOTIDINE 20 MG TAB PO SCH ×2 (08:27→21:34)
[2020-08-25] MEDS: METOPROLOL SUCCINATE (ER) 100 MG TAB.ER.24H PO SCH (08:27)
[2020-08-25] MEDS: ASCORBIC ACID 500 MG TAB PO SCH ×2 (08:27→21:34)
[2020-08-25] MEDS: CHOLECALCIFEROL 25 MCG (1000 IU) TABLET PO SCH (08:27)
[2020-08-25] MEDS: APIXABAN 2.5 MG TABLET PO SCH ×2 (08:27→21:34)
[2020-08-25 10:29] LABS: Basophils % (A) 1 %; Eosinophils % (A) 0 %; HCT 31.2 % (39.0-53.0); HGB 9.9 gm/dL (13.0-17.5); Hypochromasia Slight; Lymphocytes # (A) 0.3 k/uL (1.0-4.8); Lymphocytes % (A) 5 %; MCH 29.8 pg (25.0-35.0); MCHC 31.8 g/dL (31.0-37.0); MCV 93.9 fL (80.0-100.0); Mean Platelet Volume 9.1; Monocytes # (A) 0.3 k/uL (0-1.0); Monocytes % (A) 4 %; Neutrophils # (A) 5.9 k/uL (1.3-7.7); Neutrophils % (A) 89 %; Platelet Count 102 k/uL (150-450); RBC 3.33 m/uL (4.30-5.90); RDW 14.1 % (11.5-15.5); WBC 6.6 k/uL (3.8-10.6)
[2020-08-25 11:03] LABS: Calcium 8.4 mg/dL (8.4-10.2); Potassium 3.8 mmol/L (3.5-5.1)
[2020-08-25] MEDS: HYDROcodone/APAP 10-325MG 1 EACH TAB PO PRN ×3 (11:27→22:24)
[2020-08-25] MEDS: FUROSEMIDE 10 MG/ML 10 ML VIAL IV SCH ×2 (11:36→20:18)
[2020-08-25 12:04] LABS: Glucose,Whole Blood 111 mg/dL (75-99)
--- NOTE | 2020-08-25 13:35 | P.PN ---
Subjective Progress Note Date: 08/25/20 HISTORY OF PRESENT ILLNESS: This is a pleasant 64-year-old male past medical history significant for paroxysmal atrial fibrillation on long-term anticoagulation, sick sinus syndrome status post permanent pacemaker implantation, nonischemic cardiomyopathy, chronic systolic heart failure, obstructive sleep apnea, COPD, hypertension, dyslipidemia, chronic kidney disease and obstructive sleep apnea. He follows in the office with Dr. Landeros. We have been asked to see in consultation for A. fib with RVR. He is currently being treated for COVID-19. Last night telemetry tracings indicated he went into atrial fibrillation with heart rate of 120 230 bpm. He was initiated on IV Cardizem. Currently he continues to be in A. fib with heart rate in the 70s. Most recent echocardiogram obtained in 08/03/2020 revealed impaired LV systolic function with ejection fraction 30-35%, moderate MR, mild TR and borderline pulmonary hypertension with an RVSP of 38 mmHg. EKG reveals on arrival revealed sinus bradycardia heart rate of 51. Telemetry tracings indicate atrial fibrillation. Chest xray on admission reveals bilateral air space disease worse in the right upper lobe. Repeat yesterday reveals multifocal pneumonia stable from previous study. Laboratory reviewed, CBC 3.5, hemoglobin 9.5, platelets 104, sodium 136, potassium 3.3, creatinine 1.52, magnesium on admission 1.7, troponin 0.056 and procalcitonin on an 0.46. The patient is COVID positive. Current cardiac medications include Eliquis 2.5 mg twice a day, aspirin 81 mg daily, chlorthalidone 25 mg daily, Lasix 60 mg twice a day and Toprol 100 mg daily. 08/24/2020 Patient examined this morning at the bedside by Dr. Mendez. Patient is on 12L high flow nasal cannula with oxygen saturations greater than 92%. Blood pressure 113/62. Telemetry reveals atrial fibrillation with uncontrolled ventricular rate in the 120s. 08/25/2020 Patient examined at the bedside by Dr. Mendez. Patient remains in atrial fibrillation. Heart rate around 100. He remains on IV amio. Patient reports shortness of breath. He states he is unable to lay flat in bed due to dyspnea. BNP this morning 19519. PHYSICAL EXAM: VITAL SIGNS: Reviewed. GENERAL: Well-developed in no acute distress. NECK: Supple. No JVD or thyromegaly LUNGS: Respirations even and unlabored. Lungs diminished to auscultation bilaterally with bibasilar rales. HEART: Mildly tachycardic. Irregular rate and rhythm. S1 and S2 heard. Systolic murmur noted. EXTREMITIES: Normal range of motion. No clubbing or cyanosis. Unable to palpate pulses in lower extremities. Edema present to bilateral lower extremities with evidence of mottling. ASSESSMENT: COVID 19 pneumonia Paroxysmal atrial fibrillation with rapid ventricular response on eliquis Acute on chronic systolic heart failure Acute hypoxic respiratory failure COPD Lower extremity cellulitus Non-ischemic cardiomyopathy Hypertension Dyslipidemia Diabetes mellitus PLAN: Continue anticoagulation with Eliquis Continue Toprol 100 mg in the morning and 50 mg in the evening Patient to finish amio infusion then begin PO amio 400mg BID Continue telemetry monitoring Begin IV lasix 80mg IV Q12 hours Monitor kidney function Daily weights Accurate I&O Wean oxygen as tolerated Further recommendations pending patient course Nurse practitioner note has been reviewed by physician. Signing provider agrees with the documented findings, assessment, and plan of care. Objective - Vital Signs Vital signs: Vital Signs Temp 97.6 F 08/25/20 04:00 Pulse 103 H 08/25/20 04:00 Resp 20 08/25/20 04:00 BP 133/88 08/25/20 04:00 Pulse Ox 90 L 08/25/20 11:16 Intake & Output 08/24/20 08/25/20 08/25/20 18:59 06:59 18:59 Intake Total 180 202.226 Output Total 100 400 Balance 80 -197.774 Weight 116.5 kg 116.5 kg Intake: Intake, IV Titration 202.226 Amount Amiodarone 450 mg In 202.226 Dextrose 5% in Water 250 ml @ 0.5 MG/MIN 16.667 mls/hr IV .Q15H [facility] Rx#: [id number] Oral 180 Output: Urine 100 400 Other: Voiding Method Urinal Urinal # Voids 0 # Bowel Movements 1 0 - Labs CBC & Chem 7: 08/25/20 09:18 08/25/20 09:18 Labs: Abnormal Lab Results - Last 24 Hours (Table) 08/24/20 08/24/20 08/24/20 Range/Units 16:39 20:21 20:42 RBC (4.30-5.90) m/uL Hgb (13.0-17.5) gm/dL Hct (39.0-53.0) % Plt Count (150-450) k/uL Lymphocytes # (1.0-4.8) k/uL ABG pCO2 (35-45) mmHg ABG pO2 (83-108) mmHg ABG HCO3 (21-25) mmol/L ABG Total CO2 (19-24) mmol/L ABG O2 Saturation (94-97) % Sodium (137-145) mmol/L Chloride (98-107) mmol/L Carbon Dioxide (22-30) mmol/L BUN (9-20) mg/dL Creatinine (0.66-1.25) mg/dL POC Glucose (mg/dL) 134 H 63 L 100 H (75-99) mg/dL 08/25/20 08/25/20 08/25/20 Range/Units 00:30 00:50 00:53 RBC 3.28 L (4.30-5.90) m/uL Hgb 10.2 L (13.0-17.5) gm/dL Hct 30.7 L (39.0-53.0) % Plt Count 110 L (150-450) k/uL Lymphocytes # 0.3 L (1.0-4.8) k/uL ABG pCO2 58 H (35-45) mmHg ABG pO2 54 L* (83-108) mmHg ABG HCO3 37 H (21-25) mmol/L ABG Total CO2 38 H (19-24) mmol/L ABG O2 Saturation 87.9 L (94-97) % Sodium (137-145) mmol/L Chloride (98-107) mmol/L Carbon Dioxide (22-30) mmol/L BUN (9-20) mg/dL Creatinine (0.66-1.25) mg/dL POC Glucose (mg/dL) 122 H (75-99) mg/dL 08/25/20 08/25/20 08/25/20 Range/Units 00:53 09:18 09:18 RBC 3.33 L (4.30-5.90) m/uL Hgb 9.9 L (13.0-17.5) gm/dL Hct 31.2 L (39.0-53.0) % Plt Count 102 L (150-450) k/uL Lymphocytes # 0.3 L (1.0-4.8) k/uL ABG pCO2 (35-45) mmHg ABG pO2 (83-108) mmHg ABG HCO3 (21-25) mmol/L ABG Total CO2 (19-24) mmol/L ABG O2 Saturation (94-97) % Sodium 132 L 134 L (137-145) mmol/L Chloride 90 L 90 L (98-107) mmol/L Carbon Dioxide 32 H 36 H (22-30) mmol/L BUN 69 H 71 H (9-20) mg/dL Creatinine 1.51 H 1.72 H (0.66-1.25) mg/dL POC Glucose (mg/dL) (75-99) mg/dL 08/25/20 Range/Units 12:03 RBC (4.30-5.90) m/uL Hgb (13.0-17.5) gm/dL Hct (39.0-53.0) % Plt Count (150-450) k/uL Lymphocytes # (1.0-4.8) k/uL ABG pCO2 (35-45) mmHg ABG pO2 (83-108) mmHg ABG HCO3 (21-25) mmol/L ABG Total CO2 (19-24) mmol/L ABG O2 Saturation (94-97) % Sodium (137-145) mmol/L Chloride (98-107) mmol/L Carbon Dioxide (22-30) mmol/L BUN (9-20) mg/dL Creatinine (0.66-1.25) mg/dL POC Glucose (mg/dL) 111 H (75-99) mg/dL Microbiology - Last 24 Hours (Table) 08/20/20 13:57 Blood Culture - Preliminary Blood No Growth after 96 hours 08/20/20 13:56 Blood Culture - Preliminary Blood No Growth after 96 hours
[2020-08-25] MEDS: AMIODARONE 200 MG TAB PO SCH ×2 (15:50→21:34)
[2020-08-25 16:46] LABS: Glucose,Whole Blood 194 mg/dL (75-99)
--- NOTE | 2020-08-25 17:15 | P.PN ---
Subjective Progress Note Date: 08/25/20 Principal diagnosis: Acute hypoxic respiratory failure secondary to acute COVID-19 pneumonia and severe COPD FEV1 of 22%. 64-year-old male patient, came into the hospital because of worsening shortness of breath a few days duration. He was brought in via EMS. He was having oxygen desaturation. The patient in the emergency was started on BiPAP treatment. His wbc was 1.5 and a d-dimer was 0.4 with a creatinine of 1.6 and a sodium level of 134. His LDH level was 1024 at the CRP level was 178. The patient's troponin level was 0.05 and the propofol level was 0.4. The chest x-ray showed bilateral airspace disease right more than left more so in the right upper lobe. For now, the patient is still on a BiPAP at 14/6 with an FiO2 of 50%. He is currently on IV Solu-Medrol 60 mg every 6 hours. He is on long-term anticoagulation with Eliquis 2.5 mg by mouth twice a day. He is also on Spiriva and albuterol HFA regarding his COPD. Is taking Levemir insulin 40 units along with a NovoLog sliding scale coverage. While in the BiPAP, the patient is able to generate tidal volumes of 100 mL with a rate of 20. He has a full face mask and is able to tolerate the treatment without any major difficulties with an FiO2 of 50%.Note that the patient was in the hospital on 08/02/2020 and the patient was Hospital as for CHF, lower extremity edema and a component of COPD exacerbation. Back then, his COVID-19 testing was negative. On today's evaluation of 08/22/2020 the patient is on 15 L of oxygen by nasal cannula and was taken off the BiPAP. Feeling better. Maintaining her pulse ox above 90%. The patient otherwise has no new complaints. He was seen in consultation yesterday and he was on a BiPAP treatment back then. He continues to have extensive consolidation of the right upper lobe based on earlier chest x-rays. His COVID-19 testing was positive. His cough has been on the case mucous with them. His pro-calcitonin level was 0.46. We were considering Tocilizumab treatment on this patient if his condition would get worse. For now, he is looking better. On 08/23/2020 patient seen in follow-up on selective care unit, he is resting in bed, he is on 8 L of oxygen, pulse ox is 91%, FiO2 has been weaned down, his breathing seems to be stable, improving, he does get short of breath with exertion, at times he is able to bring up some colored sputum, his been afebrile, no complaints of chest pain, his only complaint today is that he is unable to sleep at night. No new chest x-rays, these labs have been reviewed, showing a little, 3.5, hemoglobin is 9.5, sodium is 136, potassium is 3.3, chloride is 89, CO2 42, BUN is 57, creatinine is 1.5. he remains on oral Lasix 60 mg twice daily, he is on Eliquis 2.5 mg daily, she is on IV Solu-Medrol 40 mg every 8 hours. Fever or chills, his blood cultures have been negative, Patient was reevaluated today on 08/24/2020, patient is now on 12 L oxygen high flow cannula, with O2 saturation in the low 90s. Patient seems to be in minimal respiratory distress, slightly tachypneic and tachycardic. CBC is relatively normal however hemoglobin is 10.2, d-dimer 0.98 Normal BUN is 58 creatinine 1.40 bicarb is 40. Blood sugar is 375, C-reactive protein is elevated at 4.3 and LDH is elevated at 710 chest x-ray showed slight worsening of his pneumonic process. However his pneumonia seems to be mostly affecting most of the right lung, and minimal involvement of the left lower lobe Reevaluated today on 08/25/2020, patient has been on BiPAP since yesterday. His FiO2 is down to 40%, and he is on BiPAP with O2 saturation of 94%. Apparently he had mental status changes yesterday and lethargy, and ABG showed well compensated chronic respiratory acidosis with a pO2 of 54 pCO2 of 58 pH of 7.41, and the patient was placed by the house physician on BiPAP and he remains on BiPAP which she seems to tolerate. O2 saturation now is 94% on 40% FiO2. Patient seems to be a bit comfortable on the BiPAP, BNP level earlier today was very high at 32,900. Last chest x-ray showed mostly bilateral patchy infil trates, possibility of unilateral pulmonary edema involving the right lung is not entirely ruled out. Patient has been on Lasix at 80 mg IV push every 12 hours. Objective - Vital Signs Vital signs: Vital Signs Temp 97.0 F L 08/25/20 16:00 Pulse 92 08/25/20 16:00 Resp 26 H 08/25/20 16:00 BP 112/69 08/25/20 16:00 Pulse Ox 94 L 08/25/20 16:00 Intake & Output 08/24/20 08/25/20 08/25/20 18:59 06:59 18:59 Intake Total 180 202.226 Output Total 100 400 Balance 80 -197.774 Weight 116.5 kg 116.5 kg Intake: Intake, IV Titration 202.226 Amount Amiodarone 450 mg In 202.226 Dextrose 5% in Water 250 ml @ 0.5 MG/MIN 16.667 mls/hr IV .Q15H [facility] Rx#: [id number] Oral 180 Output: Urine 100 400 Other: Voiding Method Urinal Urinal Urinal # Voids 0 # Bowel Movements 1 0 - Exam Physical Exam: Revealed a 64-year-old white male on BiPAP 40% FiO2. Head: Atraumatic, normocephalic. HEENT:[Neck is supple.] [No neck masses.] [No thyromegaly.] [No JVD.] Chest: [Symmetrical chest expansion, crackles at the bases. Cardiac Exam: [Normal S1 and S2, no S3 gallop, no murmur.] Abdomen: [Soft, nontender, no megaly, no rebound, no guarding, normal bowel sounds.] Extremities: [No clubbing, no edema, no cyanosis.] Neurological Exam: [No focal neurologic deficit.] Alert and oriented 3. No focal deficits. Psychiatric: Normal mood affect and normal mental status examination. Skin: No rashes. Musculoskeletal: No deformities and no limitation in range of motion - Labs CBC & Chem 7: 08/25/20 09:18 08/25/20 09:18 Labs: Abnormal Lab Results - Last 24 Hours (Table) 08/24/20 08/24/20 08/25/20 Range/Units 20:21 20:42 00:30 RBC (4.30-5.90) m/uL Hgb (13.0-17.5) gm/dL Hct (39.0-53.0) % Plt Count (150-450) k/uL Lymphocytes # (1.0-4.8) k/uL ABG pCO2 (35-45) mmHg ABG pO2 (83-108) mmHg ABG HCO3 (21-25) mmol/L ABG Total CO2 (19-24) mmol/L ABG O2 Saturation (94-97) % Sodium (137-145) mmol/L Chloride (98-107) mmol/L Carbon Dioxide (22-30) mmol/L BUN (9-20) mg/dL Creatinine (0.66-1.25) mg/dL POC Glucose (mg/dL) 63 L 100 H 122 H (75-99) mg/dL 08/25/20 08/25/20 08/25/20 Range/Units 00:50 00:53 00:53 RBC 3.28 L (4.30-5.90) m/uL Hgb 10.2 L (13.0-17.5) gm/dL Hct 30.7 L (39.0-53.0) % Plt Count 110 L (150-450) k/uL Lymphocytes # 0.3 L (1.0-4.8) k/uL ABG pCO2 58 H (35-45) mmHg ABG pO2 54 L* (83-108) mmHg ABG HCO3 37 H (21-25) mmol/L ABG Total CO2 38 H (19-24) mmol/L ABG O2 Saturation 87.9 L (94-97) % Sodium 132 L (137-145) mmol/L Chloride 90 L (98-107) mmol/L Carbon Dioxide 32 H (22-30) mmol/L BUN 69 H (9-20) mg/dL Creatinine 1.51 H (0.66-1.25) mg/dL POC Glucose (mg/dL) (75-99) mg/dL 08/25/20 08/25/20 08/25/20 Range/Units 09:18 09:18 12:03 RBC 3.33 L (4.30-5.90) m/uL Hgb 9.9 L (13.0-17.5) gm/dL Hct 31.2 L (39.0-53.0) % Plt Count 102 L (150-450) k/uL Lymphocytes # 0.3 L (1.0-4.8) k/uL ABG pCO2 (35-45) mmHg ABG pO2 (83-108) mmHg ABG HCO3 (21-25) mmol/L ABG Total CO2 (19-24) mmol/L ABG O2 Saturation (94-97) % Sodium 134 L (137-145) mmol/L Chloride 90 L (98-107) mmol/L Carbon Dioxide 36 H (22-30) mmol/L BUN 71 H (9-20) mg/dL Creatinine 1.72 H (0.66-1.25) mg/dL POC Glucose (mg/dL) 111 H (75-99) mg/dL 08/25/20 Range/Units 16:44 RBC (4.30-5.90) m/uL Hgb (13.0-17.5) gm/dL Hct (39.0-53.0) % Plt Count (150-450) k/uL Lymphocytes # (1.0-4.8) k/uL ABG pCO2 (35-45) mmHg ABG pO2 (83-108) mmHg ABG HCO3 (21-25) mmol/L ABG Total CO2 (19-24) mmol/L ABG O2 Saturation (94-97) % Sodium (137-145) mmol/L Chloride (98-107) mmol/L Carbon Dioxide (22-30) mmol/L BUN (9-20) mg/dL Creatinine (0.66-1.25) mg/dL POC Glucose (mg/dL) 194 H (75-99) mg/dL Microbiology - Last 24 Hours (Table) 08/20/20 13:57 Blood Culture - Preliminary Blood No Growth after 120 hours 08/20/20 13:56 Blood Culture - Preliminary Blood No Growth after 120 hours Assessment and Plan Assessment: Impression: Acute on chronic hypoxic respiratory failure, multifactorial secondary to acute COVID-19 pneumonia, and severe COPD exacerbation, underlying community-acquired pneumonia is not entirely ruled out. But felt to be less likely. Possible component of chronic systolic congestive heart failure Severe COPD exacerbation FEV1 is normal at 22%. Patient is normally on oxygen at home, he is on 5 L Acute cellulitis of lower extremities. Chronic systolic congestive heart failure, ejection fraction of 30% History of diverticular disease/diverticulosis. Acute kidney injury. History of pacemaker implantation. History of obstructive sleep apnea syndrome. History of left sided pneumothorax, required chest tube insertion. History of alcoholism. Recommendation: Continue present supportive care measures. Continue Lasix. Continue BiPAP. Continue oxygen. And titrate accordingly. Continue IV steroids. Continue oral anticoagulation. Continue to monitor inflammatory markers Continue Eliquis. Continue cefepime empirically Continue the COVID-19 cocktail. Prognosis is guarded, we'll continue to follow Time with Patient: Less than 30
[2020-08-25 20:23] LABS: Glucose,Whole Blood 226 mg/dL (75-99)
[2020-08-25] MEDS: METOPROLOL SUCCINATE (ER) 50 MG TAB.ER.24H PO SCH (21:36)
[2020-08-26] MEDS: ALPRAZolam 0.5 MG TAB PO PRN (00:27)
[2020-08-26] MEDS: HYDROcodone/APAP 10-325MG 1 EACH TAB PO PRN ×3 (06:02→20:38)
[2020-08-26] MEDS: LEVOTHYROXINE 25 MCG TAB PO SCH (06:03)
[2020-08-26 06:18] LABS: Glucose,Whole Blood 398 mg/dL (75-99)
[2020-08-26] MEDS: INSULIN ASPART (NovoLOG) 100 UNIT/ML VIAL SQ SCH ×4 (06:36→20:38)
[2020-08-26] MEDS: MIDODRINE 5 MG TAB PO SCH ×3 (06:36→17:50)
[2020-08-26] MEDS: INSULIN DETEMIR (LEVEMIR) 100 UNIT/ML SYR SQ SCH (06:36)
[2020-08-26] MEDS: PANTOPRAZOLE 40 MG TABLET PO SCH (06:36)
[2020-08-26] MEDS: ALBUTEROL HFA INHALER INHALATION SCH ×4 (09:36→19:41)
[2020-08-26] MEDS: TIOTROPIUM 2.5 MCG INHALER INHALATION SCH (09:36)
[2020-08-26] MEDS: guaiFENesin 600 MG TABLET.ER PO SCH ×2 (09:42→20:38)
[2020-08-26] MEDS: METOPROLOL SUCCINATE (ER) 100 MG TAB.ER.24H PO SCH (09:42)
[2020-08-26] MEDS: ASCORBIC ACID 500 MG TAB PO SCH ×2 (09:42→20:36)
[2020-08-26] MEDS: ZINC SULFATE 220 MG CAP PO SCH (09:43)
[2020-08-26] MEDS: AMIODARONE 200 MG TAB PO SCH ×2 (09:43→20:36)
[2020-08-26] MEDS: APIXABAN 2.5 MG TABLET PO SCH ×2 (09:43→20:36)
[2020-08-26] MEDS: CHOLECALCIFEROL 25 MCG (1000 IU) TABLET PO SCH (09:43)
[2020-08-26] MEDS: FAMOTIDINE 20 MG TAB PO SCH ×2 (09:43→20:37)
[2020-08-26] MEDS: FUROSEMIDE 10 MG/ML 10 ML VIAL IV SCH ×2 (09:43→20:37)
[2020-08-26] MEDS: methylPREDNISolone SOD SUCCI 40 MG/ML 1 ML VIAL IV SCH ×3 (09:43→23:37)
[2020-08-26] MEDS: TAMSULOSIN 0.4 MG CAP.ER.24H PO SCH (09:43)
[2020-08-26] MEDS: CEFEPIME 2 GM in SODIUM CHLORIDE 0.9% 100 ML IVPB SCH ×2 (09:44→20:36)
[2020-08-26 10:28] LABS: Calcium 8.2 mg/dL (8.4-10.2); Potassium 3.6 mmol/L (3.5-5.1)
--- NOTE | 2020-08-26 11:43 | P.PN ---
Subjective HISTORY OF PRESENT ILLNESS: This is a pleasant 64-year-old male past medical history significant for paroxysmal atrial fibrillation on long-term anticoagulation, sick sinus syndrome status post permanent pacemaker implantation, nonischemic cardiomyopathy, chronic systolic heart failure, obstructive sleep apnea, COPD, hypertension, dyslipidemia, chronic kidney disease and obstructive sleep apnea. He follows in the office with Dr. Landeros. We have been asked to see in consultation for A. fib with RVR. He is currently being treated for COVID-19. Last night telemetry tracings indicated he went into atrial fibrillation with heart rate of 120 230 bpm. He was initiated on IV Cardizem. Currently he cont inues to be in A. fib with heart rate in the 70s. Most recent echocardiogram obtained in 08/03/2020 revealed impaired LV systolic function with ejection fraction 30-35%, moderate MR, mild TR and borderline pulmonary hypertension with an RVSP of 38 mmHg. EKG reveals on arrival revealed sinus bradycardia heart rate of 51. Telemetry tracings indicate atrial fibrillation. Chest xray on admission reveals bilateral air space disease worse in the right upper lobe. Repeat yesterday reveals multifocal pneumonia stable from previous study. Laboratory reviewed, CBC 3.5, hemoglobin 9.5, platelets 104, sodium 136, potassium 3.3, creatinine 1.52, magnesium on admission 1.7, troponin 0.056 and procalcitonin on an 0.46. The patient is COVID positive. Current cardiac medications include Eliquis 2.5 mg twice a day, aspirin 81 mg daily, chlorthalidone 25 mg daily, Lasix 60 mg twice a day and Toprol 100 mg daily. 08/24/2020 Patient examined this morning at the bedside by Dr. Mendez. Patient is on 12L high flow nasal cannula with oxygen saturations greater than 92%. Blood pressure 113/62. Telemetry reveals atrial fibrillation with uncontrolled ventricular rate in the 120s. 08/25/2020 Patient examined at the bedside by Dr. Mendez. Patient remains in atrial fibrillation. Heart rate around 100. He remains on IV amio. Patient reports shortness of breath. He states he is unable to lay flat in bed due to dyspnea. BNP this morning [id number]. 08/26/20 Patient seen and examined. He states he feels fairly similar to yesterday. Still SOB and orthopnea. He was started on Lasix 80mg IV bid and admits to some increase in urine output. His HR's have been controlled in the 60-70's with intermittent pacing, still in Afib. He did have a small bloody nose. PHYSICAL EXAM: VITAL SIGNS: Reviewed. GENERAL: Well-developed in no acute distress. NECK: Supple. No JVD or thyromegaly LUNGS: Respirations even and unlabored. Lungs diminished to auscultation bilaterally with bibasilar rales. HEART: Mildly tachycardic. Irregular rate and rhythm. S1 and S2 heard. Systolic murmur noted. EXTREMITIES: Normal range of motion. No clubbing or cyanosis. Unable to palpate pulses in lower extremities. Edema present to bilateral lower extremities with evidence of mottling. ASSESSMENT: COVID 19 pneumonia Paroxysmal atrial fibrillation with rapid ventricular response on eliquis Acute on chronic systolic heart failure Acute hypoxic respiratory failure COPD Lower extremity cellulitus Non-ischemic cardiomyopathy Hypertension Dyslipidemia Diabetes mellitus PLAN: Continue anticoagulation with Eliquis Continue Toprol 100 mg in the morning and 50 mg in the evening Continue loading with amio 400mg BID Continue telemetry monitoring Continue IV lasix 80mg IV Q12 hours as he still appears volume overloaded however monitor Cr with mild increase in Cr noted. Daily weights Accurate I&O Wean oxygen as tolerated Further recommendations pending patient course. Prognosis guarded Objective - Vital Signs Vital signs: Vital Signs Temp 97.1 F L 08/26/20 08:00 Pulse 59 L 08/26/20 08:00 Resp 24 08/26/20 08:00 BP 107/64 08/26/20 08:00 Pulse Ox 89 L 08/26/20 08:00 Intake & Output 08/25/20 08/26/20 08/26/20 18:59 06:59 18:59 Intake Total 10 240 Output Total 1500 Balance -1490 240 Weight 116.5 kg 116.5 kg Intake: IV 10 Invasive Line 3 10 Oral 240 Output: Urine 1500 Other: Voiding Method Urinal Urinal # Voids 1 - Labs CBC & Chem 7: 08/25/20 09:18 08/26/20 08:27 Labs: Abnormal Lab Results - Last 24 Hours (Table) 08/25/20 08/25/20 08/25/20 Range/Units 12:03 16:44 20:19 Sodium (137-145) mmol/L Chloride (98-107) mmol/L Carbon Dioxide (22-30) mmol/L BUN (9-20) mg/dL Creatinine (0.66-1.25) mg/dL Glucose (74-99) mg/dL POC Glucose (mg/dL) 111 H 194 H 226 H (75-99) mg/dL Calcium (8.4-10.2) mg/dL 08/26/20 08/26/20 Range/Units 06:16 08:27 Sodium 135 L (137-145) mmol/L Chloride 89 L (98-107) mmol/L Carbon Dioxide 36 H (22-30) mmol/L BUN 79 H (9-20) mg/dL Creatinine 1.75 H (0.66-1.25) mg/dL Glucose 338 H (74-99) mg/dL POC Glucose (mg/dL) 398 H (75-99) mg/dL Calcium 8.2 L (8.4-10.2) mg/dL Microbiology - Last 24 Hours (Table) 08/20/20 13:57 Blood Culture - Preliminary Blood No Growth after 120 hours 08/20/20 13:56 Blood Culture - Preliminary Blood No Growth after 120 hours
[2020-08-26 12:10] LABS: Glucose,Whole Blood 370 mg/dL (75-99)
[2020-08-26 17:15] LABS: Glucose,Whole Blood 279 mg/dL (75-99)
--- NOTE | 2020-08-26 17:35 | P.PN ---
Subjective Progress Note Date: 08/26/20 Principal diagnosis: Acute hypoxic respiratory failure secondary to acute COVID-19 pneumonia and severe COPD 64-year-old male patient, came into the hospital because of worsening shortness of breath a few days duration. He was brought in via EMS. He was having oxygen desaturation. The patient in the emergency was started on BiPAP treatment. His wbc was 1.5 and a d-dimer was 0.4 with a creatinine of 1.6 and a sodium level of 134. His LDH level was 1024 at the CRP level was 178. The patient's troponin level was 0.05 and the propofol level was 0.4. The chest x-ray showed bilateral airspace disease right more than left more so in the right upper lobe. For now, the patient is still on a BiPAP at 14/6 with an FiO2 of 50%. He is currently on IV Solu-Medrol 60 mg every 6 hours. He is on long-term anticoagulation with Eliquis 2.5 mg by mouth twice a day. He is also on Spiriva and albuterol HFA regarding his COPD. Is taking Levemir insulin 40 units along with a NovoLog sliding scale coverage. While in the BiPAP, the patient is able to generate tidal volumes of 100 mL with a rate of 20. He has a full face mask and is able to tolerate the treatment without any major difficulties with an FiO2 of 50%.Note that the patient was in the hospital on 08/02/2020 and the patient was Hospital as for CHF, lower extremity edema and a component of COPD exacerbation. Back then, his COVID-19 testing was negative. On today's evaluation of 08/22/2020 the patient is on 15 L of oxygen by nasal cannula and was taken off the BiPAP. Feeling better. Maintaining her pulse ox above 90%. The patient otherwise has no new complaints. He was seen in consultation yesterday and he was on a BiPAP treatment back then. He continues to have extensive consolidation of the right upper lobe based on earlier chest x-rays. His COVID-19 testing was positive. His cough has been on the case mucous with them. His pro-calcitonin level was 0.46. We were considering Tocilizumab treatment on this patient if his condition would get worse. For now, he is looking better. On 08/23/2020 patient seen in follow-up on selective care unit, he is resting in bed, he is on 8 L of oxygen, pulse ox is 91%, FiO2 has been weaned down, his breathing seems to be stable, improving, he does get short of breath with exertion, at times he is able to bring up some colored sputum, his been afe brile, no complaints of chest pain, his only complaint today is that he is unable to sleep at night. No new chest x-rays, these labs have been reviewed, showing a little, 3.5, hemoglobin is 9.5, sodium is 136, potassium is 3.3, chloride is 89, CO2 42, BUN is 57, creatinine is 1.5. he remains on oral Lasix 60 mg twice daily, he is on Eliquis 2.5 mg daily, she is on IV Solu-Medrol 40 mg every 8 hours. Fever or chills, his blood cultures have been negative, Patient was reevaluated today on 08/24/2020, patient is now on 12 L oxygen high flow cannula, with O2 saturation in the low 90s. Patient seems to be in minimal respiratory distress, slightly tachypneic and tachycardic. CBC is relatively normal however hemoglobin is 10.2, d-dimer 0.98 Normal BUN is 58 creatinine 1.40 bicarb is 40. Blood sugar is 375, C-reactive protein is elevated at 4.3 and LDH is elevated at 710 chest x-ray showed slight worsening of his pneumonic process. However his pneumonia seems to be mostly affecting most of the right lung, and minimal involvement of the left lower lobe Reevaluated today on 08/25/2020, patient has been on BiPAP since yesterday. His FiO2 is down to 40%, and he is on BiPAP with O2 saturation of 94%. Apparently he had mental status changes yesterday and lethargy, and ABG showed well compensated chronic respiratory acidosis with a pO2 of 54 pCO2 of 58 pH of 7.41, and the patient was placed by the house physician on BiPAP and he remains on BiPAP which she seems to tolerate. O2 saturation now is 94% on 40% FiO2. Patient seems to be a bit comfortable on the BiPAP, BNP level earlier today was very high at 32,900. Last chest x-ray showed mostly bilateral patchy infiltrates, possibility of unilateral pulmonary edema involving the right lung is not entirely ruled out. Patient has been on Lasix at 80 mg IV push every 12 hours. Patient was reevaluated today on 08/26/2020, he is now on high flow cannula, 15 L/m, O2 saturation remains marginal in the range of 88-89%. Intermittently has been on BiPAP. Patient looks comfortable on 15 L flow, his labs look normal WBC count is 6.6 hemoglobin is 9.9. Electrolytes are normal. BUN is 79 and creatinine is 1.75. Blood sugar is 279. BNP level is 32,900. Patient does have acute on chronic systolic congestive heart failure in addition to his COVID-19 pneumonia, as well as paroxysmal atrial fibrillation, and chronic lower extremity cellulitis. He is also known to have history of nonischemic cardiomyopathy. Patient remains on anticoagulation therapy with Eliquis, he is also on Toprol, amiodarone, and is also on Lasix 80 mg IV push every 12 hours. Some improvement in the last 24 hours, but not much of a clinical change. Last chest x-ray showed more involvement of the right lung compared to the left lung, hence I'm suspecting some component of atypical pulmonary edema/CHF. In addition to his COVID-19 pneumonia. Objective - Vital Signs Vital signs: Vital Signs Temp 97.1 F L 08/26/20 08:00 Pulse 63 08/26/20 12:00 Resp 20 08/26/20 12:00 BP 103/62 08/26/20 12:00 Pulse Ox 88 L 08/26/20 12:00 Intake & Output 08/25/20 08/26/20 08/26/20 18:59 06:59 18:59 Intake Total 10 240 Output Total 1500 Balance -1490 240 Weight 116.5 kg 116.5 kg Intake: IV 10 Invasive Line 3 10 Oral 240 Output: Urine 1500 Other: Voiding Method Urinal Urinal # Voids 1 - Exam Physical Exam: Revealed a 64-year-old white male on high flow oxygen. Head: Atraumatic, normocephalic. HEENT:[Neck is supple.] [No neck masses.] [No thyromegaly.] [No JVD.] Chest: [Symmetrical chest expansion, crackles at the bases. Cardiac Exam: [Normal S1 and S2, no S3 gallop, no murmur.] Abdomen: [Soft, nontender, no megaly, no rebound, no guarding, normal bowel s ounds.] Extremities: [No clubbing, no edema, no cyanosis.] Neurological Exam: [No focal neurologic deficit.] Alert and oriented 3. No focal deficits. Psychiatric: Normal mood affect and normal mental status examination. Skin: No rashes. Musculoskeletal: No deformities and no limitation in range of motion - Labs CBC & Chem 7: 08/25/20 09:18 08/26/20 08:27 Labs: Abnormal Lab Results - Last 24 Hours (Table) 08/25/20 08/26/20 08/26/20 Range/Units 20:19 06:16 08:27 Sodium 135 L (137-145) mmol/L Chloride 89 L (98-107) mmol/L Carbon Dioxide 36 H (22-30) mmol/L BUN 79 H (9-20) mg/dL Creatinine 1.75 H (0.66-1.25) mg/dL Glucose 338 H (74-99) mg/dL POC Glucose (mg/dL) 226 H 398 H (75-99) mg/dL Calcium 8.2 L (8.4-10.2) mg/dL 08/26/20 08/26/20 Range/Units 12:01 17:01 Sodium (137-145) mmol/L Chloride (98-107) mmol/L Carbon Dioxide (22-30) mmol/L BUN (9-20) mg/dL Creatinine (0.66-1.25) mg/dL Glucose (74-99) mg/dL POC Glucose (mg/dL) 370 H 279 H (75-99) mg/dL Calcium (8.4-10.2) mg/dL Microbiology - Last 24 Hours (Table) 08/20/20 13:57 Blood Culture - Final Blood No Growth after 144 hours 08/20/20 13:56 Blood Culture - Final Blood No Growth after 144 hours Assessment and Plan Assessment: Impression: Acute on chronic hypoxic respiratory failure, multifactorial secondary to acute COVID-19 pneumonia, and severe COPD exacerbation, underlying community-acquired pneumonia is not entirely ruled out. But felt to be less likely. Possible component of chronic systolic congestive heart failure Severe COPD exacerbation FEV1 is normal at 22%. Patient is normally on oxygen at home, he is on 5 L Acute cellulitis of lower extremities. Acute on chronic systolic congestive heart failure, ejection fraction of 30% History of diverticular disease/diverticulosis. Acute kidney injury. History of pacemaker implantation. History of obstructive sleep apnea syndrome. History of left sided pneumothorax, required chest tube insertion. History of alcoholism. Recommendation: Continue bronchodilators. Continue amiodarone 400 mg by mouth twice a day. Continue Eliquis. Continue cefepime. Continue methylprednisolone 40 mg IV push every 8 hours. Continue Protonix. Continue BiPAP and high flow cannula intermittently. Continue to monitor inflammatory markers. Continue COVID-19 cocktail. Not quite ready for any discharge planning. We'll continue to follow Time with Patient: Less than 30
[2020-08-26 20:26] LABS: Glucose,Whole Blood 219 mg/dL (75-99)
[2020-08-26] MEDS: METOPROLOL SUCCINATE (ER) 50 MG TAB.ER.24H PO SCH (20:38)
--- NOTE | 2020-08-26 23:49 | P.PN ---
Subjective Progress Note Date: 08/25/20 Principal diagnosis: Acute hypoxic respiratory failure Covid and pneumonia Patient is a 64-year-old male with a known history of atrial fibrillation on anticoagulation with Eliquis, history of pacemaker placement due to SSS, chronic CHF with systolic dysfunction ejection fraction 35%, COPD on home oxygen 5 L via nasal cannula, hypertension, diabetes type 2 [id number], obstructive sleep apnea, previous history of alcohol abuse/DTs, BPH, CKD stage III, bilateral lower extremity peripheral neuropathy and previous history of smoking other multiple medical problems presents to ER with complaints of worsening shortness of breath for the past 2 to 3 days. Patient was presents to ER due to respiratory distress by EMS. Patient was placed on 9% nonrebreather and was saturating at 80%. Patient was started on BiPAP while in the ER. Otherwise patient has been afebrile. No complaints of nausea vomiting or abdominal pain or diarrhea. Laboratory data showed blood pressure 107/95 respiration 26 pulse is 120 and 100% nonrebreather on admission. Laboratory data showed WBC 4.9 hemoglobin 11.5 platelets 102 chloride 84 sodium 134 bicarb 44 BUN 16 creatinine 1.73 and Troponin 0 0.056, CRP 178 and coronavirus PCR detected. Chest x-ray showed correlate for pneumonia. Edema not excluded. Follow-up suggested. Patient was recently discharged admitted to the hospital from 08/02/2020 to 08/10/2020 08/21/2020 Patient is currently on BiPAP with FiO2 50%. Saturating at 88 to 90%. Awake alert oriented x3. Able to communicate. Patient has been afebrile. No complaints of chest pain. Patient is complaining of bilateral lower extremity pain and requesting pain medications. No diarrhea or dysuria. No nausea or vomiting. Chest x-ray showed multifocal pneumonia is stable. Due to elevated procalcitonin level 0.46 and recent sputum cultures growing Pseudomonas. Patient was be started on cefepime. Pulmonary is on board. Laboratory data showed WBC 1.5 hemoglobin 9.3 platelets 86 lymphocytes 0.4 D-dimer is 0.43 Sodium 134 potassium 4.1 chloride 87 bicarb is 39 BUN 56 and creatinine 1.6 Patient is being continued on IV Solu-Medrol, Eliquis and multivitamins. 08/22/2020 Patient is currently on 15 L 100% nonrebreather. BiPAP has been discontinued. Patient states that he feels better. No complaints of chest pain or worsening shortness breath. Patient is being continued antibiotics in the form of cefepime due to recent sputum cultures positive for Pseudomonas. Blood cultures have been negative so far. No complaints of chest pain. Patient does have cough without sputum production. No nausea vomiting or abdominal pain or diarrhea. Pulmonary is on board. 08/23/2020 Patient is currently sitting on the side of the bed. On percent nonrebreather which is being transitioned to 8 L oxygen via nasal cannula. Arrest patient went into atrial fibrillation with rapid regular rate overnight. Cardiology was consulted. Was started on Cardizem drip which is transitioned to Toprol-XL. Continue with Eliquis. No complaints of chest pain or shortness of breath no nausea vomiting abdominal pain or diarrhea. Laboratory showed WBC 3.5 hemoglobin 9.5 platelets 87 bicarb is 42 potassium 3.3 BUN 57 and creatinine 1.52 and blood sugar is 125. Patient is being continued IV Solu-Medrol, antibiotics, cefepime and Lasix 60 mg twice daily and insulin regimen. 08/24/2020 Patient is currently sitting on side of the bed. Still tachycardic and tachypneic. Requiring oxygen at 12 L via nasal cannula and saturating at 88%. Patient was started amiodarone drip as per cardiology. Currently on metoprolol 50 mg at bedtime and Lasix 60 mg twice daily. Cardiology and pulmonary is on board. Laboratory data showed WBC 7.1 hemoglobin 10.1 platelets 104 D-dimer 0.98 Sodium 136 potassium 4.3 BUN 58 and creatinine 1.4 bicarb is 40, LDH 710 and CRP 4.3 Chest x-ray showed pneumonia may have worsened in the interval. 08/25/2020 Patient is currently in the medical floor requiring BiPAP. No complaints of chest pain or worsening shortness of breath. Patient became lethargic and altered yesterday. ABGs were not done. Laboratory data showed WBC 6.6 hemoglobin 9.9 and platelets 102 Sodium 134 potassium 3.8 chloride 90 bicarb 36 BUN 71 creatinine 1.72. Lasix dose increased to 80 mg IV every 12. Heart rate is controlled. Currently on amiodarone 400 mg twice daily. Continue with insulin regimen and blood sugar is controlled. Patient has been afebrile. Pulmonary and cardiology is on board. Current medications reviewed. Objective - Vital Signs Vital signs: Vital Signs Temp 97.0 F L 08/25/20 16:00 Pulse 92 08/25/20 16:00 Resp 26 H 08/25/20 16:00 BP 118/72 08/25/20 16:00 Pulse Ox 94 L 08/25/20 16:00 Intake & Output 08/25/20 08/25/20 08/26/20 06:59 18:59 06:59 Intake Total 202.226 Output Total 400 1200 Balance -197.774 -1200 Weight 116.5 kg 116.5 kg Intake: Intake, IV Titration . Amount Amiodarone 450 mg In . Dextrose 5% in Water 250 ml @ 0.5 MG/MIN 16.667 mls/hr IV .Q15H [facility] Rx#: [id number] Output: Urine 400 1200 Other: Voiding Method Urinal Urinal # Voids 0 # Bowel Movements 0 - Exam PHYSICAL EXAMINATION: Patient is lying in the bed no distress, awake alert and oriented.on Bipap. HEENT: Normocephalic. Neck is supple. Pupils reactive. Nostrils clear. Oral cavity is moist. Ears reveal no drainage. Neck reveals no JVD, carotid bruits, or thyromegaly. CHEST EXAMINATION: Trachea is central. Symmetrical expansion.Bibasilar diminished air entry and mild expiratory wheeze . CARDIAC: Normal S1, S2 with no gallops. No murmurs ABDOMEN: Soft. Bowel sounds normal. No organomegaly. No abdominal bruits. Extremities: 2+ edema. leg wounds /sores . No clubbing or cyanosis Neurologically awake, alert, oriented x3 with well-coordinated movements. No focal deficits noted Skin: No rash or skin lesions. Psychiatric: Coperative. Nonsuicidal Musculoskeletal: No joint swelling or deformity. Normal range of motion. - Labs CBC & Chem 7: 08/25/20 09:18 08/26/20 08:27 Labs: Abnormal Lab Results - Last 24 Hours (Table) 08/25/20 08/25/20 08/25/20 Range/Units 00:30 00:50 00:53 RBC 3.28 L (4.30-5.90) m/uL Hgb 10.2 L (13.0-17.5) gm/dL Hct 30.7 L (39.0-53.0) % Plt Count 110 L (150-450) k/uL Lymphocytes # 0.3 L (1.0-4.8) k/uL ABG pCO2 58 H (35-45) mmHg ABG pO2 54 L* (83-108) mmHg ABG HCO3 37 H (21-25) mmol/L ABG Total CO2 38 H (19-24) mmol/L ABG O2 Saturation 87.9 L (94-97) % Sodium (137-145) mmol/L Chloride (98-107) mmol/L Carbon Dioxide (22-30) mmol/L BUN (9-20) mg/dL Creatinine (0.66-1.25) mg/dL POC Glucose (mg/dL) 122 H (75-99) mg/dL 08/25/20 08/25/20 08/25/20 Range/Units 00:53 09:18 09:18 RBC 3.33 L (4.30-5.90) m/uL Hgb 9.9 L (13.0-17.5) gm/dL Hct 31.2 L (39.0-53.0) % Plt Count 102 L (150-450) k/uL Lymphocytes # 0.3 L (1.0-4.8) k/uL ABG pCO2 (35-45) mmHg ABG pO2 (83-108) mmHg ABG HCO3 (21-25) mmol/L ABG Total CO2 (19-24) mmol/L ABG O2 Saturation (94-97) % Sodium 132 L 134 L (137-145) mmol/L Chloride 90 L 90 L (98-107) mmol/L Carbon Dioxide 32 H 36 H (22-30) mmol/L BUN 69 H 71 H (9-20) mg/dL Creatinine 1.51 H 1.72 H (0.66-1.25) mg/dL POC Glucose (mg/dL) (75-99) mg/dL 08/25/20 08/25/20 08/25/20 Range/Units 12:03 16:44 20:19 RBC (4.30-5.90) m/uL Hgb (13.0-17.5) gm/dL Hct (39.0-53.0) % Plt Count (150-450) k/uL Lymphocytes # (1.0-4.8) k/uL ABG pCO2 (35-45) mmHg ABG pO2 (83-108) mmHg ABG HCO3 (21-25) mmol/L ABG Total CO2 (19-24) mmol/L ABG O2 Saturation (94-97) % Sodium (137-145) mmol/L Chloride (98-107) mmol/L Carbon Dioxide (22-30) mmol/L BUN (9-20) mg/dL Creatinine (0.66-1.25) mg/dL POC Glucose (mg/dL) 111 H 194 H 226 H (75-99) mg/dL Microbiology - Last 24 Hours (Table) 08/20/20 13:57 Blood Culture - Preliminary Blood No Growth after 120 hours 08/20/20 13:56 Blood Culture - Preliminary Blood No Growth after 120 hours Assessment and Plan Assessment: Acute COVID-19 pneumonia Acute on chronic hypoxic and hypercapnic respiratory failure due to Covid pneumonia with underlying COPD Paroxysmal atrial fibrillation with rapid regular rate Possible bacterial pneumonia with recent sputum cultures growing Pseudomonas. Chronic hypoxic respiratory failure secondary to COPD on 5 L. On prednisone 20 mg daily oxygen via nasal cannula at home. Chronic CHF with systolic dysfunction ejection fraction 35% Nonischemic cardiomyopathy acute on chronic kidney disease stage III with baseline creatinine 1.1. 1.71 on admission Bilateral lower extremity swelling history of alcohol abuse and DTs Diabetes type 2 insulin-dependent Hypertension Hyperlipidemia Obstructive sleep apnea not on CPAP at home Hx of PAF on anticoagulation with Eliquis. Considering ablation as an outpatient. Status post pacemaker placement. Patient history of smoking DVT prophylaxis patient is already on Eliquis. Plan: Patient is currently on BiPAP. Was given IV Solu-Medrol 125 mg x 1. Patient will be continued on 60mg Q6 and multivitamins and Eliquis. Started on cefepime 2 g every 12. Amiodarone changed to by mouth 400 mg twice daily. Continue with metoprolol. Follow-up inflammatory markers. Patient may be a candidate for remdesivir cour se. Continue with midodrine and Lasix dose as blood pressure tolerated. c/w tele Pulmonary was consulted. Continue to follow closely. Monitor renal function. Prognosis guarded at this time.. Time with Patient: Greater than 30
--- NOTE | 2020-08-26 23:52 | P.PN ---
Subjective Progress Note Date: 08/26/20 Principal diagnosis: Acute hypoxic respiratory failure Covid and pneumonia Patient is a 64-year-old male with a known history of atrial fibrillation on anticoagulation with Eliquis, history of pacemaker placement due to SSS, chronic CHF with systolic dysfunction ejection fraction 35%, COPD on home oxygen 5 L via nasal cannula, hypertension, diabetes type 2 [id number], obstructive sleep apnea, previous history of alcohol abuse/DTs, BPH, CKD stage III, bilateral lower extremity peripheral neuropathy and previous history of smoking other multiple medical problems presents to ER with complaints of worsening shortness of breath for the past 2 to 3 days. Patient was presents to ER due to respiratory distress by EMS. Patient was placed on 9% nonrebreather and was saturating at 80%. Patient was started on BiPAP while in the ER. Otherwise patient has been afebrile. No complaints of nausea vomiting or abdominal pain or diarrhea. Laboratory data showed blood pressure 107/95 respiration 26 pulse is 120 and 100% nonrebreather on admission. Laboratory data showed WBC 4.9 hemoglobin 11.5 platelets 102 chloride 84 sodium 134 bicarb 44 BUN 16 creatinine 1.73 and Troponin 0 0.056, CRP 178 and coronavirus PCR detected. Chest x-ray showed correlate for pneumonia. Edema not excluded. Follow-up suggested. Patient was recently discharged admitted to the hospital from 08/02/2020 to 08/10/2020 08/21/2020 Patient is currently on BiPAP with FiO2 50%. Saturating at 88 to 90%. Awake alert oriented x3. Able to communicate. Patient has been afebrile. No complaints of chest pain. Patient is complaining of bilateral lower extremity pain and requesting pain medications. No diarrhea or dysuria. No nausea or vomiting. Chest x-ray showed multifocal pneumonia is stable. Due to elevated procalcitonin level 0.46 and recent sputum cultures growing Pseudomonas. Patient was be started on cefepime. Pulmonary is on board. Laboratory data showed WBC 1.5 hemoglobin 9.3 platelets 86 lymphocytes 0.4 D-dimer is 0.43 Sodium 134 potassium 4.1 chloride 87 bicarb is 39 BUN 56 and creatinine 1.6 Patient is being continued on IV Solu-Medrol, Eliquis and multivitamins. 08/22/2020 Patient is currently on 15 L 100% nonrebreather. BiPAP has been discontinued. Patient states that he feels better. No complaints of chest pain or worsening shortness breath. Patient is being continued antibiotics in the form of cefepime due to recent sputum cultures positive for Pseudomonas. Blood cultures have been negative so far. No complaints of chest pain. Patient does have cough without sputum production. No nausea vomiting or abdominal pain or diarrhea. Pulmonary is on board. 08/23/2020 Patient is currently sitting on the side of the bed. On percent nonrebreather which is being transitioned to 8 L oxygen via nasal cannula. Arrest patient went into atrial fibrillation with rapid regular rate overnight. Cardiology was consulted. Was started on Cardizem drip which is transitioned to Toprol-XL. Continue with Eliquis. No complaints of chest pain or shortness of breath no nausea vomiting abdominal pain or diarrhea. Laboratory showed WBC 3.5 hemoglobin 9.5 platelets 87 bicarb is 42 potassium 3.3 BUN 57 and creatinine 1.52 and blood sugar is 125. Patient is being continued IV Solu-Medrol, antibiotics, cefepime and Lasix 60 mg twice daily and insulin regimen. 08/24/2020 Patient is currently sitting on side of the bed. Still tachycardic and tachypneic. Requiring oxygen at 12 L via nasal cannula and saturating at 88%. Patient was started amiodarone drip as per cardiology. Currently on metoprolol 50 mg at bedtime and Lasix 60 mg twice daily. Cardiology and pulmonary is on board. Laboratory data showed WBC 7.1 hemoglobin 10.1 platelets 104 D-dimer 0.98 Sodium 136 potassium 4.3 BUN 58 and creatinine 1.4 bicarb is 40, LDH 710 and CRP 4.3 Chest x-ray showed pneumonia may have worsened in the interval. 08/25/2020 Patient is currently in the medical floor requiring BiPAP. No complaints of chest pain or worsening shortness of breath. Patient became lethargic and altered yesterday. ABGs were not done. Laboratory data showed WBC 6.6 hemoglobin 9.9 and platelets 102 Sodium 134 potassium 3.8 chloride 90 bicarb 36 BUN 71 creatinine 1.72. Lasix dose increased to 80 mg IV every 12. Heart rate is controlled. Currently on amiodarone 400 mg twice daily. Continue with insulin regimen and blood sugar is controlled. Patient has been afebrile. Pulmonary and cardiology is on board. 08/26/2020 Patient is currently sitting in the bed comfortably. Currently 15 L oxygen via nasal cannula. Patient is also using BiPAP as needed. Heart rate is better controlled. Currently on metoprolol and amiodarone. Patient is being continued on IV Lasix 80 mg every 12. Patient has been afebrile. No nausea vomiting or abdominal pain or diarrhea. Tolerating oral diet. Laboratory showed sodium 135 potassium 3.6 BUN 79 and creatinine 1.75 and blood sugar is 338 today. Patient is also on methylprednisolone 40 mg IV every 8. Continue with the Levemir 40 units daily and insulin sliding scale. Patient is also midodrine 10 mg 3 times daily. Blood pressures stable. Current medications reviewed. Objective - Vital Signs Vital signs: Vital Signs Temp 97.1 F L 08/26/20 08:00 Pulse 92 08/26/20 14:00 Resp 20 08/26/20 16:00 BP 106/73 08/26/20 16:00 Pulse Ox 94 L 08/26/20 16:00 Intake & Output 08/26/20 08/26/20 08/27/20 06:59 18:59 06:59 Intake Total 10 480 125 Output Total 1500 300 Balance -1490 480 -175 Weight 116.5 kg Intake: IV 10 Invasive Line 3 10 Oral 480 125 Output: Urine 1500 300 Other: Voiding Method Urinal # Voids 1 - Exam PHYSICAL EXAMINATION: Patient is lying in the bed no distress, awake alert and oriented.. HEENT: Normocephalic. Neck is supple. Pupils reactive. Nostrils clear. Oral cavity is moist. Ears reveal no drainage. Neck reveals no JVD, carotid bruits, or thyromegaly. CHEST EXAMINATION: Trachea is central. Symmetrical expansion.Bibasilar diminished air entry and mild expiratory wheeze . CARDIAC: Normal S1, S2 with no gallops. No murmurs ABDOMEN: Soft. Bowel sounds normal. No organomegaly. No abdominal bruits. Extremities: 2+ edema. leg wounds /sores . No clubbing or cyanosis Neurologically awake, alert, oriented x3 with well-coordinated movements. No focal deficits noted Skin: No rash or skin lesions. Psychiatric: Coperative. Nonsuicidal Musculoskeletal: No joint swelling or deformity. Normal range of motion. - Labs CBC & Chem 7: 08/25/20 09:18 04/21/21 08:27 Labs: Abnormal Lab Results - Last 24 Hours (Table) 08/26/20 08/26/20 08/26/20 Range/Units 06:16 08:27 12:01 Sodium 135 L (137-145) mmol/L Chloride 89 L (98-107) mmol/L Carbon Dioxide 36 H (22-30) mmol/L BUN 79 H (9-20) mg/dL Creatinine 1.75 H (0.66-1.25) mg/dL Glucose 338 H (74-99) mg/dL POC Glucose (mg/dL) 398 H 370 H (75-99) mg/dL Calcium 8.2 L (8.4-10.2) mg/dL 08/26/20 08/26/20 Range/Units 17:01 20:21 Sodium (137-145) mmol/L Chloride (98-107) mmol/L Carbon Dioxide (22-30) mmol/L BUN (9-20) mg/dL Creatinine (0.66-1.25) mg/dL Glucose (74-99) mg/dL POC Glucose (mg/dL) 279 H 219 H (75-99) mg/dL Calcium (8.4-10.2) mg/dL Microbiology - Last 24 Hours (Table) 08/20/20 13:57 Blood Culture - Final Blood No Growth after 144 hours 08/20/20 13:56 Blood Culture - Final Blood No Growth after 144 hours Assessment and Plan Assessment: Acute COVID-19 pneumonia Acute on chronic hypoxic and hypercapnic respiratory failure due to Covid pneu monia with underlying COPD Paroxysmal atrial fibrillation with rapid regular rate Possible bacterial pneumonia with recent sputum cultures growing Pseudomonas. Chronic hypoxic respiratory failure secondary to COPD on 5 L. On prednisone 20 mg daily oxygen via nasal cannula at home. Chronic CHF with systolic dysfunction ejection fraction 35% Nonischemic cardiomyopathy acute on chronic kidney disease stage III with baseline creatinine 1.1. 1.71 on admission Bilateral lower extremity swelling history of alcohol abuse and DTs Diabetes type 2 insulin-dependent Hypertension Hyperlipidemia Obstructive sleep apnea not on CPAP at home Hx of PAF on anticoagulation with Eliquis. Considering ablation as an outpatient. Status post pacemaker placement. Patient history of smoking DVT prophylaxis patient is already on Eliquis. Plan: Patient is currently on BiPAP. Was given IV Solu-Medrol 125 mg x 1. Patient will be continued on 60mg Q6 and multivitamins and Eliquis. Started on cefepime 2 g every 12. Amiodarone changed to by mouth 400 mg twice daily. Continue with metoprolol. IV lasix 80mg BID Follow-up inflammatory markers. Patient may be a candidate for remdesivir course. Continue with midodrine and Lasix dose as blood pressure tolerated. c/w tele Pulmonary and Cardiology is on board.. Continue to follow closely. Monitor renal function. Prognosis guarded at this time.. Time with Patient: Greater than 30
[2020-08-27 06:27] LABS: Glucose,Whole Blood 174 mg/dL (75-99)
[2020-08-27] MEDS: LEVOTHYROXINE 25 MCG TAB PO SCH (06:35)
[2020-08-27] MEDS: MIDODRINE 5 MG TAB PO SCH ×3 (06:35→18:06)
[2020-08-27] MEDS: PANTOPRAZOLE 40 MG TABLET PO SCH (06:35)
[2020-08-27] MEDS: INSULIN DETEMIR (LEVEMIR) 100 UNIT/ML SYR SQ SCH (06:35)
[2020-08-27] MEDS: INSULIN ASPART (NovoLOG) 100 UNIT/ML VIAL SQ SCH ×4 (06:36→20:40)
[2020-08-27] MEDS: ALBUTEROL HFA INHALER INHALATION SCH ×4 (08:20→19:30)
[2020-08-27] MEDS: TIOTROPIUM 2.5 MCG INHALER INHALATION SCH (08:20)
[2020-08-27] MEDS: FUROSEMIDE 10 MG/ML 10 ML VIAL IV SCH ×2 (09:05→20:34)
[2020-08-27] MEDS: AMIODARONE 200 MG TAB PO SCH ×2 (09:06→20:35)
[2020-08-27] MEDS: methylPREDNISolone SOD SUCCI 40 MG/ML 1 ML VIAL IV SCH ×3 (09:06→23:17)
[2020-08-27] MEDS: CEFEPIME 2 GM in SODIUM CHLORIDE 0.9% 100 ML IVPB SCH ×2 (09:06→20:33)
[2020-08-27] MEDS: ZINC SULFATE 220 MG CAP PO SCH (09:07)
[2020-08-27] MEDS: ASCORBIC ACID 500 MG TAB PO SCH ×2 (09:07→20:35)
[2020-08-27] MEDS: FAMOTIDINE 20 MG TAB PO SCH ×2 (09:07→20:35)
[2020-08-27] MEDS: METOPROLOL SUCCINATE (ER) 100 MG TAB.ER.24H PO SCH (09:07)
[2020-08-27] MEDS: APIXABAN 2.5 MG TABLET PO SCH ×2 (09:07→20:35)
[2020-08-27] MEDS: guaiFENesin 600 MG TABLET.ER PO SCH ×2 (09:07→20:35)
[2020-08-27] MEDS: CHOLECALCIFEROL 25 MCG (1000 IU) TABLET PO SCH (09:07)
[2020-08-27] MEDS: TAMSULOSIN 0.4 MG CAP.ER.24H PO SCH (09:07)
[2020-08-27 11:52] LABS: Glucose,Whole Blood 354 mg/dL (75-99)
--- NOTE | 2020-08-27 13:04 | P.PN ---
Subjective HISTORY OF PRESENT ILLNESS: This is a pleasant 64-year-old male past medical history significant for paroxysmal atrial fibrillation on long-term anticoagulation, sick sinus syndrome status post permanent pacemaker implantation, nonischemic cardiomyopathy, chronic systolic heart failure, obstructive sleep apnea, COPD, hypertension, dyslipidemia, chronic kidney disease and obstructive sleep apnea. He follows in the office with Dr. Landeros. We have been asked to see in consultation for A. fib with RVR. He is currently being treated for COVID-19. Last night telemetry tracings indicated he went into atrial fibrillation with heart rate of 120 230 bpm. He was initiated on IV Cardizem. Currently he cont inues to be in A. fib with heart rate in the 70s. Most recent echocardiogram obtained in 08/03/2020 revealed impaired LV systolic function with ejection fraction 30-35%, moderate MR, mild TR and borderline pulmonary hypertension with an RVSP of 38 mmHg. EKG reveals on arrival revealed sinus bradycardia heart rate of 51. Telemetry tracings indicate atrial fibrillation. Chest xray on admission reveals bilateral air space disease worse in the right upper lobe. Repeat yesterday reveals multifocal pneumonia stable from previous study. Laboratory reviewed, CBC 3.5, hemoglobin 9.5, platelets 104, sodium 136, potassium 3.3, creatinine 1.52, magnesium on admission 1.7, troponin 0.056 and procalcitonin on an 0.46. The patient is COVID positive. Current cardiac medications include Eliquis 2.5 mg twice a day, aspirin 81 mg daily, chlorthalidone 25 mg daily, Lasix 60 mg twice a day and Toprol 100 mg daily. 08/24/2020 Patient examined this morning at the bedside by Dr. Mendez. Patient is on 12L high flow nasal cannula with oxygen saturations greater than 92%. Blood pressure 113/62. Telemetry reveals atrial fibrillation with uncontrolled ventricular rate in the 120s. 08/25/2020 Patient examined at the bedside by Dr. Mendez. Patient remains in atrial fibrillation. Heart rate around 100. He remains on IV amio. Patient reports shortness of breath. He states he is unable to lay flat in bed due to dyspnea. BNP this morning 38083. 08/26/20 Patient seen and examined. He states he feels fairly similar to yesterday. Still SOB and orthopnea. He was started on Lasix 80mg IV bid and admits to some increase in urine output. His HR's have been controlled in the 60-70's with intermittent pacing, still in Afib. He did have a small bloody nose. 08/27 Patient seen and examined. He states he did cough up some dark mucus and states that he feels somewhat better after this. He has been diuresed with Lasix 80 mg IV twice a day and feels somewhat better. Kidney function has not resulted from today. He does admit to some mild diarrhea. No chest pain or pressure. States he feels he is slowly improving. Still has diffuse lower extremity edema. PHYSICAL EXAM: VITAL SIGNS: Reviewed. GENERAL: Well-developed in no acute distress. NECK: Supple. No JVD or thyromegaly LUNGS: Respirations even and unlabored. Lungs diminished to auscultation bilaterally with bibasilar rales. HEART: Mildly tachycardic. Irregular rate and rhythm. S1 and S2 heard. Systolic murmur noted. EXTREMITIES: Normal range of motion. No clubbing or cyanosis. Unable to palpate pulses in lower extremities. Edema present to bilateral lower extremities with evidence of mottling. ASSESSMENT: COVID 19 pneumonia Paroxysmal atrial fibrillation with rapid ventricular response on eliquis Acute on chronic systolic heart failure Acute hypoxic respiratory failure COPD Lower extremity cellulitus Non-ischemic cardiomyopathy Hypertension Dyslipidemia Diabetes mellitus PLAN: Continue anticoagulation with Eliquis Continue Toprol 100 mg in the morning and 50 mg in the evening Continue loading with amio 400mg BID Continue telemetry monitoring Continue IV lasix 80mg IV Q12 hours as he still appears volume overloaded ho wever monitor Cr. Today's creatinine has not resulted. Daily weights Accurate I&O Wean oxygen as tolerated Further recommendations pending patient course. Prognosis guarded Objective - Vital Signs Vital signs: Vital Signs Temp 98.3 F 08/27/20 09:00 Pulse 87 08/27/20 12:52 Resp 20 08/27/20 12:52 BP 106/72 08/27/20 12:52 Pulse Ox 92 L 08/27/20 12:52 Intake & Output 08/26/20 08/27/20 08/27/20 18:59 06:59 18:59 Intake Total 480 125 240 Output Total 850 Balance 480 -725 240 Weight 114.5 kg Intake: Oral 480 125 240 Output: Urine 850 Other: Voiding Method Urinal - Labs CBC & Chem 7: 08/25/20 09:18 08/26/20 08:27 Labs: Abnormal Lab Results - Last 24 Hours (Table) 08/26/20 08/26/20 08/27/20 Range/Units 17:01 20:21 06:25 POC Glucose (mg/dL) 279 H 219 H 174 H (75-99) mg/dL 08/27/20 Range/Units 11:48 POC Glucose (mg/dL) 354 H (75-99) mg/dL Microbiology - Last 24 Hours (Table) 08/20/20 13:57 Blood Culture - Final Blood No Growth after 144 hours 08/20/20 13:56 Blood Culture - Final Blood No Growth after 144 hours
[2020-08-27] MEDS: HYDROcodone/APAP 10-325MG 1 EACH TAB PO PRN (13:53)
[2020-08-27 14:19] VITALS: BMI 31.5
--- NOTE | 2020-08-27 14:52 | XR ---
EXAMINATION TYPE: XR chest 1V portable DATE OF EXAM: 08/27/2020 CLINICAL HISTORY: Difficulty breathing progress study. CHF and covid pneumonia. TECHNIQUE: Single AP portable upright view of the chest is obtained. COMPARISON: Chest x-ray from 3 days earlier and older studies. Chest CT March 30, 2020. FINDINGS: Persistent cardiomegaly with dual-lead pacemaker. Background chronic emphysematous change with multifocal and confluent increased reticular opacities throughout the right lung and left lung w ith relative sparing of the left upper lung. Small to tiny bilateral pleural effusions redemonstrated . Osseous structures are intact. IMPRESSION: Cardiomegaly with small to tiny bilateral pleural effusions redemonstrated. Bilateral mul tifocal and confluent reticular opacities with relative sparing of left upper lobe redemonstrated. No significant change from most recent x-ray.
[2020-08-27] MEDS: ALBUTEROL HFA INHALER INHALATION PRN (16:03)
[2020-08-27 17:07] LABS: Glucose,Whole Blood 325 mg/dL (75-99)
--- NOTE | 2020-08-27 17:26 | P.PN ---
Subjective Progress Note Date: 08/27/20 Principal diagnosis: Acute hypoxic respiratory failure secondary to acute COVID-19 pneumonia and severe COPD 64-year-old male patient, came into the hospital because of worsening shortness of breath a few days duration. He was brought in via EMS. He was having oxygen desaturation. The patient in the emergency was started on BiPAP treatment. His wbc was 1.5 and a d-dimer was 0.4 with a creatinine of 1.6 and a sodium level of 134. His LDH level was 1024 at the CRP level was 178. The patient's troponin level was 0.05 and the propofol level was 0.4. The chest x-ray showed bilateral airspace disease right more than left more so in the right upper lobe. For now, the patient is still on a BiPAP at 14/6 with an FiO2 of 50%. He is currently on IV Solu-Medrol 60 mg every 6 hours. He is on long-term anticoagulation with Eliquis 2.5 mg by mouth twice a day. He is also on Spiriva and albuterol HFA regarding his COPD. Is taking Levemir insulin 40 units along with a NovoLog sliding scale coverage. While in the BiPAP, the patient is able to generate tidal volumes of 100 mL with a rate of 20. He has a full face mask and is able to tolerate the treatment without any major difficulties with an FiO2 of 50%.Note that the patient was in the hospital on 08/02/2020 and the patient was Hospital as for CHF, lower extremity edema and a component of COPD exacerbation. Back then, his COVID-19 testing was negative. On today's evaluation of 08/22/2020 the patient is on 15 L of oxygen by nasal cannula and was taken off the BiPAP. Feeling better. Maintaining her pulse ox above 90%. The patient otherwise has no new complaints. He was seen in consultation yesterday and he was on a BiPAP treatment back then. He continues to have extensive consolidation of the right upper lobe based on earlier chest x-rays. His COVID-19 testing was positive. His cough has been on the case mucous with them. His pro-calcitonin level was 0.46. We were considering Tocilizumab treatment on this patient if his condition would get worse. For now, he is looking better. On 08/23/2020 patient seen in follow-up on selective care unit, he is resting in bed, he is on 8 L of oxygen, pulse ox is 91%, FiO2 has been weaned down, his breathing seems to be stable, improving, he does get short of breath with exertion, at times he is able to bring up some colored sputum, his been afe brile, no complaints of chest pain, his only complaint today is that he is unable to sleep at night. No new chest x-rays, these labs have been reviewed, showing a little, 3.5, hemoglobin is 9.5, sodium is 136, potassium is 3.3, chloride is 89, CO2 42, BUN is 57, creatinine is 1.5. he remains on oral Lasix 60 mg twice daily, he is on Eliquis 2.5 mg daily, she is on IV Solu-Medrol 40 mg every 8 hours. Fever or chills, his blood cultures have been negative, Patient was reevaluated today on 08/24/2020, patient is now on 12 L oxygen high flow cannula, with O2 saturation in the low 90s. Patient seems to be in minimal respiratory distress, slightly tachypneic and tachycardic. CBC is relatively normal however hemoglobin is 10.2, d-dimer 0.98 Normal BUN is 58 creatinine 1.40 bicarb is 40. Blood sugar is 375, C-reactive protein is elevated at 4.3 and LDH is elevated at 710 chest x-ray showed slight worsening of his pneumonic process. However his pneumonia seems to be mostly affecting most of the right lung, and minimal involvement of the left lower lobe Reevaluated today on 08/25/2020, patient has been on BiPAP since yesterday. His FiO2 is down to 40%, and he is on BiPAP with O2 saturation of 94%. Apparently he had mental status changes yesterday and lethargy, and ABG showed well compensated chronic respiratory acidosis with a pO2 of 54 pCO2 of 58 pH of 7.41, and the patient was placed by the house physician on BiPAP and he remains on BiPAP which she seems to tolerate. O2 saturation now is 94% on 40% FiO2. Patient seems to be a bit comfortable on the BiPAP, BNP level earlier today was very high at 32,900. Last chest x-ray showed mostly bilateral patchy infiltrates, possibility of unilateral pulmonary edema involving the right lung is not entirely ruled out. Patient has been on Lasix at 80 mg IV push every 12 hours. Patient was reevaluated today on 08/26/2020, he is now on high flow cannula, 15 L/m, O2 saturation remains marginal in the range of 88-89%. Intermittently has been on BiPAP. Patient looks comfortable on 15 L flow, his labs look normal WBC count is 6.6 hemoglobin is 9.9. Electrolytes are normal. BUN is 79 and creatinine is 1.75. Blood sugar is 279. BNP level is 32,900. Patient does have acute on chronic systolic congestive heart failure in addition to his COVID-19 pneumonia, as well as paroxysmal atrial fibrillation, and chronic lower extremity cellulitis. He is also known to have history of nonischemic cardiomyopathy. Patient remains on anticoagulation therapy with Eliquis, he is also on Toprol, amiodarone, and is also on Lasix 80 mg IV push every 12 hours. Some improvement in the last 24 hours, but not much of a clinical change. Last chest x-ray showed more involvement of the right lung compared to the left lung, hence I'm suspecting some component of atypical pulmonary edema/CHF. In addition to his COVID-19 pneumonia. Patient was reevaluated today on 08/27/2020, remains on high flow nasal cannula, 15 L/m, at times he went down to 10 L high flow cannula, patient is sitting in a bedside chair, seems to be comfortable, not in distress. O2 sats is 95%. He is hemodynamically stable. Not in any distress. Electrolytes are normal. BUN is 79 creatinine is 1.75. Blood sugars are ranging between 200 up to 338. Last B [employer] level was 32 900. Patient remains on diuretics. Objective - Vital Signs Vital signs: Vital Signs Temp 96.6 F L 08/27/20 16:45 Pulse 74 08/27/20 16:45 Resp 20 08/27/20 16:45 BP 110/69 08/27/20 16:45 Pulse Ox 95 08/27/20 16:45 Intake & Output 08/26/20 08/27/20 08/27/20 18:59 06:59 18:59 Intake Total 480 125 240 Output Total 850 Balance 480 -725 240 Weight 114.5 kg 114.5 kg Intake: Oral 480 125 240 Output: Urine 850 Other: Voiding Method Urinal - Exam Physical Exam: Revealed a 64-year-old white male on high flow oxygen. 10-15 L. Head: Atraumatic, normocephalic. HEENT:[Neck is supple.] [No neck masses.] [No thyromegaly.] [No JVD.] Chest: [Symmetrical chest expansion, crackles at the bases. Cardiac Exam: [Normal S1 and S2, no S3 gallop, no murmur.] Abdomen: [Soft, nontender, no megaly, no rebound, no guarding, normal bowel sounds.] Extremities: [No clubbing, chronic venous stasis changes noted bilaterally., no cyanosis.] Neurological Exam: [No focal neurologic deficit.] Alert and oriented 3. No focal deficits. Psychiatric: Normal mood affect and normal mental status examination. Skin: No rashes. Musculoskeletal: No deformities and no limitation in range of motion - Labs CBC & Chem 7: 08/25/20 09:18 08/26/20 08:27 Labs: Abnormal Lab Results - Last 24 Hours (Table) 08/26/20 08/27/20 08/27/20 Range/Units 20:21 06:25 11:48 POC Glucose (mg/dL) 219 H 174 H 354 H (75-99) mg/dL 08/27/20 Range/Units 17:04 POC Glucose (mg/dL) 325 H (75-99) mg/dL Microbiology - Last 24 Hours (Table) 08/20/20 13:57 Blood Culture - Final Blood No Growth after 144 hours 08/20/20 13:56 Blood Culture - Final Blood No Growth after 144 hours Assessment and Plan Assessment: Impression: Acute on chronic hypoxic respiratory failure, multifactorial secondary to acute COVID-19 pneumonia, and severe COPD exacerbation, underlying community-acquired pneumonia is not entirely ruled out. But felt to be less likely. Possible component of chronic systolic congestive heart failure Severe COPD exacerbation FEV1 is normal at 22%. Patient is normally on oxygen at home, he is on 5 L Acute cellulitis of lower extremities. Acute on chronic systolic congestive heart failure, ejection fraction of 30% History of diverticular disease/diverticulosis. Acute kidney injury. History of pacemaker implantation. History of obstructive sleep apnea syndrome. History of left sided pneumothorax, required chest tube insertion. History of alcoholism. Recommendation: Titrate oxygen as tolerated and maintain O2 sats above 90% Continue bronchodilators. Continue amiodarone Continue Eliquis. Continue cefepime. Continue methylprednisolone 40 mg IV push every 8 hours. Continue Protonix. Continue BiPAP and high flow cannula intermittently. Continue to monitor inflammatory markers. Continue COVID-19 cocktail. We'll continue to follow Time with Patient: Less than 30
[2020-08-27] MEDS: METOPROLOL SUCCINATE (ER) 50 MG TAB.ER.24H PO SCH (20:35)
[2020-08-27 20:38] LABS: Glucose,Whole Blood 234 mg/dL (75-99)
[2020-08-28] MEDS: HYDROcodone/APAP 10-325MG 1 EACH TAB PO PRN ×3 (00:32→23:21)
[2020-08-28 05:54] LABS: Glucose,Whole Blood 149 mg/dL (75-99)
[2020-08-28] MEDS: MIDODRINE 5 MG TAB PO SCH ×3 (06:12→17:21)
[2020-08-28] MEDS: LEVOTHYROXINE 25 MCG TAB PO SCH (06:12)
[2020-08-28] MEDS: INSULIN DETEMIR (LEVEMIR) 100 UNIT/ML SYR SQ SCH (06:13)
[2020-08-28] MEDS: PANTOPRAZOLE 40 MG TABLET PO SCH (06:13)
[2020-08-28] MEDS: INSULIN ASPART (NovoLOG) 100 UNIT/ML VIAL SQ SCH ×4 (06:13→21:04)
[2020-08-28] MEDS: methylPREDNISolone SOD SUCCI 40 MG/ML 1 ML VIAL IV SCH ×3 (08:48→23:21)
[2020-08-28] MEDS: FUROSEMIDE 10 MG/ML 10 ML VIAL IV SCH ×2 (08:49→21:02)
[2020-08-28] MEDS: METOPROLOL SUCCINATE (ER) 100 MG TAB.ER.24H PO SCH (08:49)
[2020-08-28] MEDS: guaiFENesin 600 MG TABLET.ER PO SCH ×2 (08:49→21:04)
[2020-08-28] MEDS: CHOLECALCIFEROL 25 MCG (1000 IU) TABLET PO SCH (08:49)
[2020-08-28] MEDS: TAMSULOSIN 0.4 MG CAP.ER.24H PO SCH (08:49)
[2020-08-28] MEDS: AMIODARONE 200 MG TAB PO SCH ×2 (08:49→21:03)
[2020-08-28] MEDS: FAMOTIDINE 20 MG TAB PO SCH ×2 (08:49→21:04)
[2020-08-28] MEDS: ZINC SULFATE 220 MG CAP PO SCH (08:49)
[2020-08-28] MEDS: APIXABAN 2.5 MG TABLET PO SCH ×2 (08:49→21:03)
[2020-08-28] MEDS: CEFEPIME 2 GM in SODIUM CHLORIDE 0.9% 100 ML IVPB SCH ×2 (08:50→21:02)
[2020-08-28] MEDS: ASCORBIC ACID 500 MG TAB PO SCH ×2 (08:50→21:04)
[2020-08-28] MEDS: ALBUTEROL HFA INHALER INHALATION SCH ×4 (08:55→20:25)
[2020-08-28] MEDS: TIOTROPIUM 2.5 MCG INHALER INHALATION SCH (08:55)
[2020-08-28 12:02] LABS: Glucose,Whole Blood 206 mg/dL (75-99)
[2020-08-28 14:23] LABS: Basophils % (A) 0 %; Eosinophils % (A) 0 %; HCT 32.4 % (39.0-53.0); HGB 10.1 gm/dL (13.0-17.5); Hypochromasia Moderate; Lymphocytes # (A) 0.4 k/uL (1.0-4.8); Lymphocytes % (A) 6 %; MCH 29.5 pg (25.0-35.0); MCV 95.1 fL (80.0-100.0); Mean Platelet Volume 9.6; Monocytes # (A) 0.3 k/uL (0-1.0); Monocytes % (A) 4 %; Neutrophils # (A) 5.6 k/uL (1.3-7.7); Neutrophils % (A) 88 %; Platelet Count 146 k/uL (150-450); RBC 3.41 m/uL (4.30-5.90); RDW 14.6 % (11.5-15.5); WBC 6.3 k/uL (3.8-10.6)
[2020-08-28 14:28] LABS: Calcium 8.4 mg/dL (8.4-10.2); Potassium 3.3 mmol/L (3.5-5.1)
--- NOTE | 2020-08-28 14:57 | P.PN ---
Subjective HISTORY OF PRESENT ILLNESS: This is a pleasant 64-year-old male past medical history significant for paroxysmal atrial fibrillation on long-term anticoagulation, sick sinus syndrome status post permanent pacemaker implantation, nonischemic cardiomyopathy, chronic systolic heart failure, obstructive sleep apnea, COPD, hypertension, dyslipidemia, chronic kidney disease and obstructive sleep apnea. He follows in the office with Dr. Landeros. We have been asked to see in consultation for A. fib with RVR. He is currently being treated for COVID-19. Last night telemetry tracings indicated he went into atrial fibrillation with heart rate of 120 230 bpm. He was initiated on IV Cardizem. Currently he continues to be in A. fib with heart rate in the 70s. Most recent echocardiogram obtained in 08/03/2020 revealed impaired LV systolic function with ejection fraction 30-35%, moderate MR, mild TR and borderline pulmonary hypertension with an RVSP of 38 mmHg. EKG reveals on arrival revealed sinus bradycardia heart rate of 51. Telemetry tracings indicate atrial fibrillation. Chest xray on admission reveals bilateral air space disease worse in the right upper lobe. Repeat yesterday reveals multifocal pneumonia stable from previous study. Laboratory reviewed, CBC 3.5, hemoglobin 9.5, platelets 104, sodium 136, potassium 3.3, creatinine 1.52, magnesium on admission 1.7, troponin 0.056 and procalcitonin on an 0.46. The patient is COVID positive. Current cardiac medications include Eliquis 2.5 mg twice a day, aspirin 81 mg daily, chlorthalidone 25 mg daily, Lasix 60 mg twice a day and Toprol 100 mg daily. 08/24/2020 Patient examined this morning at the bedside by Dr. Mendez. Patient is on 12L high flow nasal cannula with oxygen saturations greater than 92%. Blood pressure 113/62. Telemetry reveals atrial fibrillation with uncontrolled ventricular rate in the 120s. 08/25/2020 Patient examined at the bedside by Dr. Mendez. Patient remains in atrial fibrillation. Heart rate around 100. He remains on IV amio. Patient reports shortness of breath. He states he is unable to lay flat in bed due to dyspnea. BNP this morning [id number]. 08/26/20 Patient seen and examined. He states he feels fairly similar to yesterday. Still SOB and orthopnea. He was started on Lasix 80mg IV bid and admits to some increase in urine output. His HR's have been controlled in the 60-70's with intermittent pacing, still in Afib. He did have a small bloody nose. 08/27 Patient seen and examined. He states he did cough up some dark mucus and states that he feels somewhat better after this. He has been diuresed with Lasix 80 mg IV twice a day and feels somewhat better. Kidney function has not resulted from today. He does admit to some mild diarrhea. No chest pain or pressure. States he feels he is slowly improving. Still has diffuse lower extremity edema. 08/28/20: Patient seen and examined at bedside, on BiPAP. His major complaint is having frequent chills. States his breathing he thinks has improved. BP 96/56, heart rate in the 60s, he continues to be rate controlled, afebrile. He is being m aintained on IV Lasix 80mg BID, amiodarone 400mg BID, Eliquis 2.5mg BID, metoprolol succinate 50mg nightly and 100mg daily. urine out put with 1400mL urine PHYSICAL EXAM: VITAL SIGNS: Reviewed. GENERAL: Well-developed in no acute distress. NECK: Supple. No JVD or thyromegaly LUNGS: Respirations even and unlabored. Lungs diminished to auscultation bilaterally with bibasilar rales. HEART: Mildly tachycardic. Irregular rate and rhythm. S1 and S2 heard. Systolic murmur noted. EXTREMITIES: Normal range of motion. No clubbing or cyanosis. Unable to palpate pulses in lower extremities. Edema present to bilateral lower extremities with evidence of mottling. ASSESSMENT: COVID 19 pneumonia Paroxysmal atrial fibrillation with rapid ventricular response on eliquis Acute on chronic systolic heart failure Acute hypoxic respiratory failure COPD Lower extremity cellulitus Non-ischemic cardiomyopathy Hypertension Dyslipidemia Diabetes mellitus PLAN: Continue anticoagulation with Eliquis Continue Toprol 100 mg in the morning and 50 mg in the evening Continue loading with amio 400mg BID Continue telemetry monitoring Continue IV lasix 80mg IV Q12 hours as he still appears volume overloaded however monitor Cr. Today's creatinine 1.80, will continue IV Lasix for today and likely transition to PO tomorrow Replace Potassium per protocol Daily weights Accurate I&O Wean oxygen as tolerated Further recommendations pending patient course. Prognosis guarded Objective - Vital Signs Vital signs: Vital Signs Temp 97.0 F L 08/28/20 13:00 Pulse 63 08/28/20 13:13 Resp 24 08/28/20 13:13 BP 96/56 08/28/20 13:00 Pulse Ox 90 L 08/28/20 13:00 Intake & Output 08/27/20 08/28/20 08/28/20 18:59 06:59 18:59 Intake Total 480 560 Output Total 1400 550 Balance 480 -1400 10 Weight 114.5 kg 113 kg Intake: Oral 480 560 Output: Urine 1400 550 Other: Voiding Method Urinal Urinal - Labs CBC & Chem 7: 08/28/20 12:58 08/28/20 12:58 Labs: Abnormal Lab Results - Last 24 Hours (Table) 08/27/20 08/27/20 08/28/20 Range/Units 17:04 20:36 05:53 RBC (4.30-5.90) m/uL Hgb (13.0-17.5) gm/dL Hct (39.0-53.0) % Plt Count (150-450) k/uL Lymphocytes # (1.0-4.8) k/uL POC Glucose (mg/dL) 325 H 234 H 149 H (75-99) mg/dL 08/28/20 08/28/20 Range/Units 12:00 12:58 RBC 3.41 L (4.30-5.90) m/uL Hgb 10.1 L (13.0-17.5) gm/dL Hct 32.4 L (39.0-53.0) % Plt Count 146 L (150-450) k/uL Lymphocytes # 0.4 L (1.0-4.8) k/uL POC Glucose (mg/dL) 206 H (75-99) mg/dL
[2020-08-28] MEDS ORDERED: Potassium Replacement Protocol 1 EACH MISC MISCELLANE PRN (16:54)
[2020-08-28 17:09] LABS: Glucose,Whole Blood 157 mg/dL (75-99)
[2020-08-28] MEDS: POTASSIUM CHLORIDE ER 20 MEQ TAB.ER PO SCH ×2 (17:21→21:05)
--- NOTE | 2020-08-28 17:35 | P.PN ---
Subjective Progress Note Date: 08/28/20 Principal diagnosis: Acute hypoxic respiratory failure secondary to acute COVID-19 pneumonia and severe COPD 64-year-old male patient, came into the hospital because of worsening shortness of breath a few days duration. He was brought in via EMS. He was having oxygen desaturation. The patient in the emergency was started on BiPAP treatment. His wbc was 1.5 and a d-dimer was 0.4 with a creatinine of 1.6 and a sodium level of 134. His LDH level was 1024 at the CRP level was 178. The patient's troponin level was 0.05 and the propofol level was 0.4. The chest x-ray showed bilateral airspace disease right more than left more so in the right upper lobe. For now, the patient is still on a BiPAP at 14/6 with an FiO2 of 50%. He is currently on IV Solu-Medrol 60 mg every 6 hours. He is on long-term anticoagulation with Eliquis 2.5 mg by mouth twice a day. He is also on Spiriva and albuterol HFA regarding his COPD. Is taking Levemir insulin 40 units along with a NovoLog sliding scale coverage. While in the BiPAP, the patient is able to generate tidal volumes of 100 mL with a rate of 20. He has a full face mask and is able to tolerate the treatment without any major difficulties with an FiO2 of 50%.Note that the patient was in the hospital on 08/02/2020 and the patient was Hospital as for CHF, lower extremity edema and a component of COPD exacerbation. Back then, his COVID-19 testing was negative. On today's evaluation of 08/22/2020 the patient is on 15 L of oxygen by nasal cannula and was taken off the BiPAP. Feeling better. Maintaining her pulse ox above 90%. The patient otherwise has no new complaints. He was seen in consultation yesterday and he was on a BiPAP treatment back then. He continues to have extensive consolidation of the right upper lobe based on earlier chest x-rays. His COVID-19 testing was positive. His cough has been on the case mucous with them. His pro-calcitonin level was 0.46. We were considering Tocilizumab treatment on this patient if his condition would get worse. For now, he is looking better. On 08/23/2020 patient seen in follow-up on selective care unit, he is resting in bed, he is on 8 L of oxygen, pulse ox is 91%, FiO2 has been weaned down, his breathing seems to be stable, improving, he does get short of breath with exertion, at times he is able to bring up some colored sputum, his been afe brile, no complaints of chest pain, his only complaint today is that he is unable to sleep at night. No new chest x-rays, these labs have been reviewed, showing a little, 3.5, hemoglobin is 9.5, sodium is 136, potassium is 3.3, chloride is 89, CO2 42, BUN is 57, creatinine is 1.5. he remains on oral Lasix 60 mg twice daily, he is on Eliquis 2.5 mg daily, she is on IV Solu-Medrol 40 mg every 8 hours. Fever or chills, his blood cultures have been negative, Patient was reevaluated today on 08/24/2020, patient is now on 12 L oxygen high flow cannula, with O2 saturation in the low 90s. Patient seems to be in minimal respiratory distress, slightly tachypneic and tachycardic. CBC is relatively normal however hemoglobin is 10.2, d-dimer 0.98 Normal BUN is 58 creatinine 1.40 bicarb is 40. Blood sugar is 375, C-reactive protein is elevated at 4.3 and LDH is elevated at 710 chest x-ray showed slight worsening of his pneumonic process. However his pneumonia seems to be mostly affecting most of the right lung, and minimal involvement of the left lower lobe Reevaluated today on 08/25/2020, patient has been on BiPAP since yesterday. His FiO2 is down to 40%, and he is on BiPAP with O2 saturation of 94%. Apparently he had mental status changes yesterday and lethargy, and ABG showed well compensated chronic respiratory acidosis with a pO2 of 54 pCO2 of 58 pH of 7.41, and the patient was placed by the house physician on BiPAP and he remains on BiPAP which she seems to tolerate. O2 saturation now is 94% on 40% FiO2. Patient seems to be a bit comfortable on the BiPAP, BNP level earlier today was very high at 32,900. Last chest x-ray showed mostly bilateral patchy infiltrates, possibility of unilateral pulmonary edema involving the right lung is not entirely ruled out. Patient has been on Lasix at 80 mg IV push every 12 hours. Patient was reevaluated today on 08/26/2020, he is now on high flow cannula, 15 L/m, O2 saturation remains marginal in the range of 88-89%. Intermittently has been on BiPAP. Patient looks comfortable on 15 L flow, his labs look normal WBC count is 6.6 hemoglobin is 9.9. Electrolytes are normal. BUN is 79 and creatinine is 1.75. Blood sugar is 279. BNP level is 32,900. Patient does have acute on chronic systolic congestive heart failure in addition to his COVID-19 pneumonia, as well as paroxysmal atrial fibrillation, and chronic lower extremity cellulitis. He is also known to have history of nonischemic cardiomyopathy. Patient remains on anticoagulation therapy with Eliquis, he is also on Toprol, amiodarone, and is also on Lasix 80 mg IV push every 12 hours. Some improvement in the last 24 hours, but not much of a clinical change. Last chest x-ray showed more involvement of the right lung compared to the left lung, hence I'm suspecting some component of atypical pulmonary edema/CHF. In addition to his COVID-19 pneumonia. Patient was reevaluated today on 08/27/2020, remains on high flow nasal cannula, 15 L/m, at times he went down to 10 L high flow cannula, patient is sitting in a bedside chair, seems to be comfortable, not in distress. O2 sats is 95%. He is hemodynamically stable. Not in any distress. Electrolytes are normal. BUN is 79 creatinine is 1.75. Blood sugars are ranging between 200 up to 338. Last B [employer] level was 32 900. Patient remains on diuretics. Patient was reevaluated today on 08/28/2020, presently on BiPAP, 40% FiO2, O2 saturations in the 90s. Patient seems to be much more comfortable today on BiPAP. He was on 10 L nasal cannula all along. CBC is relatively normal hemoglobin is 10.1. Electrodes are normal renal profile showed a BUN of 89 and creatinine 1.80. Patient has COVID-19 pneumonia paroxysmal atrial fibrillation chronic cellulitis and nonischemic cardiomyopathy with LV dysfunction. Remains on Toprol, amiodarone, Lasix, he is steadily but slowly improving. Objective - Vital Signs Vital signs: Vital Signs Temp 97.0 F L 08/28/20 13:00 Pulse 63 08/28/20 13:13 Resp 24 08/28/20 13:13 BP 96/56 08/28/20 13:00 Pulse Ox 90 L 08/28/20 13:00 Intake & Output 08/27/20 08/28/20 08/28/20 18:59 06:59 18:59 Intake Total 480 560 Output Total 1400 550 Balance 480 -1400 10 Weight 114.5 kg 113 kg Intake: Oral 480 560 Output: Urine 1400 550 Other: Voiding Method Urinal Urinal - Exam Physical Exam: Revealed a 64-year-old white male on high flow oxygen. Presently on BiPAP. 40% FiO2. Head: Atraumatic, normocephalic. HEENT:[Neck is supple.] [No neck masses.] [No thyromegaly.] [No JVD.] Chest: [Symmetrical chest expansion, crackles at the bases. Cardiac Exam: [Normal S1 and S2, no S3 gallop, no murmur.] Abdomen: [Soft, nontender, no megaly, no rebound, no guarding, normal bowel sounds.] Extremities: [No clubbing, chronic venous stasis changes noted bilaterally., no cyanosis.] Neurological Exam: [No focal neurologic deficit.] Alert and oriented 3. No focal deficits. Psychiatric: Normal mood affect and normal mental status examination. Skin: No rashes. Musculoskeletal: No deformities and no limitation in range of motion - Labs CBC & Chem 7: 08/28/20 12:58 08/28/20 12:58 Labs: Abnormal Lab Results - Last 24 Hours (Table) 08/27/20 08/28/20 08/28/20 Range/Units 20:36 05:53 12:00 RBC (4.30-5.90) m/uL Hgb (13.0-17.5) gm/dL Hct (39.0-53.0) % Plt Count (150-450) k/uL Lymphocytes # (1.0-4.8) k/uL Potassium (3.5-5.1) mmol/L Chloride (98-107) mmol/L Carbon Dioxide (22-30) mmol/L BUN (9-20) mg/dL Creatinine (0.66-1.25) mg/dL Glucose (74-99) mg/dL POC Glucose (mg/dL) 234 H 149 H 206 H (75-99) mg/dL 08/28/20 08/28/20 08/28/20 Range/Units 12:58 12:58 17:05 RBC 3.41 L (4.30-5.90) m/uL Hgb 10.1 L (13.0-17.5) gm/dL Hct 32.4 L (39.0-53.0) % Plt Count 146 L (150-450) k/uL Lymphocytes # 0.4 L (1.0-4.8) k/uL Potassium 3.3 L (3.5-5.1) mmol/L Chloride 93 L (98-107) mmol/L Carbon Dioxide 39 H (22-30) mmol/L BUN 89 H (9-20) mg/dL Creatinine 1.80 H (0.66-1.25) mg/dL Glucose 148 H (74-99) mg/dL POC Glucose (mg/dL) 157 H (75-99) mg/dL Assessment and Plan Assessment: Impression: Acute on chronic hypoxic respiratory failure, multifactorial secondary to acute COVID-19 pneumonia, and severe COPD exacerbation, underlying community-acquired pneumonia is not entirely ruled out. But felt to be less likely. Possible component of chronic systolic congestive heart failure Severe COPD exacerbation FEV1 is normal at 22%. Patient is normally on oxygen at home, he is on 5 L Acute cellulitis of lower extremities. Acute on chronic systolic congestive heart failure, ejection fraction of 30% History of diverticular disease/diverticulosis. Acute kidney injury. History of pacemaker implantation. History of obstructive sleep apnea syndrome. History of left sided pneumothorax, required chest tube insertion. History of alcoholism. Recommendation: Continue to titrate oxygen, use BiPAP as needed. Continue bronchodilators. Continue amiodarone Continue Eliquis. Continue cefepime. Continue methylprednisolone 40 mg IV push every 8 hours. Continue Protonix. Continue to monitor inflammatory markers. Continue COVID-19 cocktail. We'll continue to follow Time with Patient: Less than 30
[2020-08-28 19:51] LABS: Glucose,Whole Blood 198 mg/dL (75-99)
[2020-08-28] MEDS: METOPROLOL SUCCINATE (ER) 50 MG TAB.ER.24H PO SCH (21:04)
[2020-08-28] MEDS: ALPRAZolam 0.5 MG TAB PO PRN (23:22)
[2020-08-29 02:10] LABS: Glucose,Whole Blood 368 mg/dL (75-99)
[2020-08-29] MEDS: HYDROcodone/APAP 10-325MG 1 EACH TAB PO PRN ×2 (04:29→23:08)
[2020-08-29 07:06] LABS: Glucose,Whole Blood 396 mg/dL (75-99)
[2020-08-29] MEDS: INSULIN ASPART (NovoLOG) 100 UNIT/ML VIAL SQ SCH ×5 (07:09→20:17)
[2020-08-29] MEDS: INSULIN DETEMIR (LEVEMIR) 100 UNIT/ML SYR SQ SCH (07:09)
[2020-08-29] MEDS: PANTOPRAZOLE 40 MG TABLET PO SCH (07:10)
[2020-08-29] MEDS: MIDODRINE 5 MG TAB PO SCH ×3 (07:10→17:26)
[2020-08-29] MEDS: LEVOTHYROXINE 25 MCG TAB PO SCH (07:10)
[2020-08-29] MEDS: ALBUTEROL HFA INHALER INHALATION SCH ×4 (07:46→20:39)
[2020-08-29] MEDS: TIOTROPIUM 2.5 MCG INHALER INHALATION SCH (07:46)
[2020-08-29 09:15] LABS: Basophils % (A) 0 %; Eosinophils % (A) 0 %; HCT 30.1 % (39.0-53.0); HGB 9.4 gm/dL (13.0-17.5); Hypochromasia Moderate; Lymphocytes # (A) 0.3 k/uL (1.0-4.8); Lymphocytes % (A) 6 %; MCH 29.4 pg (25.0-35.0); MCHC 31.1 g/dL (31.0-37.0); MCV 94.6 fL (80.0-100.0); Mean Platelet Volume 9.6; Monocytes # (A) 0.2 k/uL (0-1.0); Monocytes % (A) 4 %; Neutrophils # (A) 4.7 k/uL (1.3-7.7); Neutrophils % (A) 89 %; Platelet Count 153 k/uL (150-450); RBC 3.18 m/uL (4.30-5.90); RDW 14.3 % (11.5-15.5); WBC 5.2 k/uL (3.8-10.6)
[2020-08-29 09:30] LABS: Calcium 8.2 mg/dL (8.4-10.2); Potassium 3.4 mmol/L (3.5-5.1)
[2020-08-29] MEDS: FUROSEMIDE 10 MG/ML 10 ML VIAL IV SCH ×2 (09:43→20:16)
[2020-08-29] MEDS: AMIODARONE 200 MG TAB PO SCH ×2 (09:44→20:16)
[2020-08-29] MEDS: ASCORBIC ACID 500 MG TAB PO SCH ×2 (09:44→20:17)
[2020-08-29] MEDS: APIXABAN 2.5 MG TABLET PO SCH ×2 (09:44→20:17)
[2020-08-29] MEDS: ZINC SULFATE 220 MG CAP PO SCH (09:44)
[2020-08-29] MEDS: CHOLECALCIFEROL 25 MCG (1000 IU) TABLET PO SCH (09:44)
[2020-08-29] MEDS: methylPREDNISolone SOD SUCCI 40 MG/ML 1 ML VIAL IV SCH ×3 (09:44→23:09)
[2020-08-29] MEDS: TAMSULOSIN 0.4 MG CAP.ER.24H PO SCH (09:44)
[2020-08-29] MEDS: METOPROLOL SUCCINATE (ER) 100 MG TAB.ER.24H PO SCH (09:44)
[2020-08-29] MEDS: guaiFENesin 600 MG TABLET.ER PO SCH ×2 (09:44→20:17)
[2020-08-29] MEDS: FAMOTIDINE 20 MG TAB PO SCH ×2 (09:44→20:17)
[2020-08-29 12:05] LABS: Glucose,Whole Blood 334 mg/dL (75-99)
[2020-08-29] MEDS: POTASSIUM CHLORIDE ER 20 MEQ TAB.ER PO SCH ×2 (12:43→15:27)
--- NOTE | 2020-08-29 17:24 | P.PN ---
Subjective Progress Note Date: 08/29/20 Principal diagnosis: Acute hypoxic respiratory failure secondary to acute COVID-19 pneumonia and severe COPD 64-year-old male patient, came into the hospital because of worsening shortness of breath a few days duration. He was brought in via EMS. He was having oxygen desaturation. The patient in the emergency was started on BiPAP treatment. His wbc was 1.5 and a d-dimer was 0.4 with a creatinine of 1.6 and a sodium level of 134. His LDH level was 1024 at the CRP level was 178. The patient's troponin level was 0.05 and the propofol level was 0.4. The chest x-ray showed bilateral airspace disease right more than left more so in the right upper lobe. For now, the patient is still on a BiPAP at 14/6 with an FiO2 of 50%. He is currently on IV Solu-Medrol 60 mg every 6 hours. He is on long-term anticoagulation with Eliquis 2.5 mg by mouth twice a day. He is also on Spiriva and albuterol HFA regarding his COPD. Is taking Levemir insulin 40 units along with a NovoLog sliding scale coverage. While in the BiPAP, the patient is able to generate tidal volumes of 100 mL with a rate of 20. He has a full face mask and is able to tolerate the treatment without any major difficulties with an FiO2 of 50%.Note that the patient was in the hospital on 08/02/2020 and the patient was Hospital as for CHF, lower extremity edema and a component of COPD exacerbation. Back then, his COVID-19 testing was negative. On today's evaluation of 08/22/2020 the patient is on 15 L of oxygen by nasal cannula and was taken off the BiPAP. Feeling better. Maintaining her pulse ox above 90%. The patient otherwise has no new complaints. He was seen in consultation yesterday and he was on a BiPAP treatment back then. He continues to have extensive consolidation of the right upper lobe based on earlier chest x-rays. His COVID-19 testing was positive. His cough has been on the case mucous with them. His pro-calcitonin level was 0.46. We were considering Tocilizumab treatment on this patient if his condition would get worse. For now, he is looking better. On 08/23/2020 patient seen in follow-up on selective care unit, he is resting in bed, he is on 8 L of oxygen, pulse ox is 91%, FiO2 has been weaned down, his breathing seems to be stable, improving, he does get short of breath with exertion, at times he is able to bring up some colored sputum, his been afe brile, no complaints of chest pain, his only complaint today is that he is unable to sleep at night. No new chest x-rays, these labs have been reviewed, showing a little, 3.5, hemoglobin is 9.5, sodium is 136, potassium is 3.3, chloride is 89, CO2 42, BUN is 57, creatinine is 1.5. he remains on oral Lasix 60 mg twice daily, he is on Eliquis 2.5 mg daily, she is on IV Solu-Medrol 40 mg every 8 hours. Fever or chills, his blood cultures have been negative, Patient was reevaluated today on 08/24/2020, patient is now on 12 L oxygen high flow cannula, with O2 saturation in the low 90s. Patient seems to be in minimal respiratory distress, slightly tachypneic and tachycardic. CBC is relatively normal however hemoglobin is 10.2, d-dimer 0.98 Normal BUN is 58 creatinine 1.40 bicarb is 40. Blood sugar is 375, C-reactive protein is elevated at 4.3 and LDH is elevated at 710 chest x-ray showed slight worsening of his pneumonic process. However his pneumonia seems to be mostly affecting most of the right lung, and minimal involvement of the left lower lobe Reevaluated today on 08/25/2020, patient has been on BiPAP since yesterday. His FiO2 is down to 40%, and he is on BiPAP with O2 saturation of 94%. Apparently he had mental status changes yesterday and lethargy, and ABG showed well compensated chronic respiratory acidosis with a pO2 of 54 pCO2 of 58 pH of 7.41, and the patient was placed by the house physician on BiPAP and he remains on BiPAP which she seems to tolerate. O2 saturation now is 94% on 40% FiO2. Patient seems to be a bit comfortable on the BiPAP, BNP level earlier today was very high at 32,900. Last chest x-ray showed mostly bilateral patchy infiltrates, possibility of unilateral pulmonary edema involving the right lung is not entirely ruled out. Patient has been on Lasix at 80 mg IV push every 12 hours. Patient was reevaluated today on 08/26/2020, he is now on high flow cannula, 15 L/m, O2 saturation remains marginal in the range of 88-89%. Intermittently has been on BiPAP. Patient looks comfortable on 15 L flow, his labs look normal WBC count is 6.6 hemoglobin is 9.9. Electrolytes are normal. BUN is 79 and creatinine is 1.75. Blood sugar is 279. BNP level is 32,900. Patient does have acute on chronic systolic congestive heart failure in addition to his COVID-19 pneumonia, as well as paroxysmal atrial fibrillation, and chronic lower extremity cellulitis. He is also known to have history of nonischemic cardiomyopathy. Patient remains on anticoagulation therapy with Eliquis, he is also on Toprol, amiodarone, and is also on Lasix 80 mg IV push every 12 hours. Some improvement in the last 24 hours, but not much of a clinical change. Last chest x-ray showed more involvement of the right lung compared to the left lung, hence I'm suspecting some component of atypical pulmonary edema/CHF. In addition to his COVID-19 pneumonia. Patient was reevaluated today on 08/27/2020, remains on high flow nasal cannula, 15 L/m, at times he went down to 10 L high flow cannula, patient is sitting in a bedside chair, seems to be comfortable, not in distress. O2 sats is 95%. He is hemodynamically stable. Not in any distress. Electrolytes are normal. BUN is 79 creatinine is 1.75. Blood sugars are ranging between 200 up to 338. Last B [employer] level was 32 900. Patient remains on diuretics. Patient was reevaluated today on 08/28/2020, presently on BiPAP, 40% FiO2, O2 saturations in the 90s. Patient seems to be much more comfortable today on BiPAP. He was on 10 L nasal cannula all along. CBC is relatively normal hemoglobin is 10.1. Electrodes are normal renal profile showed a BUN of 89 and creatinine 1.80. Patient has COVID-19 pneumonia paroxysmal atrial fibrillation chronic cellulitis and nonischemic cardiomyopathy with LV dysfunction. Remains on Toprol, amiodarone, Lasix, he is steadily but slowly improving. Reevaluated today on 08/29/2020, patient is now on 15 L high flow cannula, O2 sats is 90%. Patient does not seem to be in any distress, he is feeling better, at times he uses his BiPAP. Blood pressure is 110/70 heart rate of 84, patient is asymptomatic, he is afebrile. CBC is relatively normal electrodes are normal BUN is 86 creatinine is 1.80, remains on diuretics. Patient is known to have history of nonischemic cardiomyopathy and LV dysfunction. Objective - Vital Signs Vital signs: Vital Signs Temp 97.4 F L 08/29/20 15:25 Pulse 80 08/29/20 15:25 Resp 20 08/29/20 15:25 BP 110/71 08/29/20 15:25 Pulse Ox 90 L 08/29/20 15:25 Intake & Output 08/28/20 08/29/20 08/29/20 18:59 06:59 18:59 Intake Total 800 340 365 Output Total 550 800 Balance 250 -460 365 Weight 129.5 kg Intake: Oral 800 340 365 Output: Urine 550 800 Other: Voiding Method Urinal Urinal Urinal # Voids 1 # Bowel Movements 1 - Exam Physical Exam: Revealed a 64-year-old white male on high flow oxygen. Presently on 13 L high flow cannula. Head: Atraumatic, normocephalic. HEENT:[Neck is supple.] [No neck masses.] [No thyromegaly.] [No JVD.] Chest: [Symmetrical chest expansion, crackles at the bases. Cardiac Exam: [Normal S1 and S2, no S3 gallop, no murmur.] Abdomen: [Soft, nontender, no megaly, no rebound, no guarding, normal bowel sounds.] Extremities: [No clubbing, chronic venous stasis changes noted bilaterally., no cyanosis.] Neurological Exam: [No focal neurologic deficit.] Alert and oriented 3. No focal deficits. Psychiatric: Normal mood affect and normal mental status examination. Skin: No rashes. Musculoskeletal: No deformities and no limitation in range of motion - Labs CBC & Chem 7: 08/29/20 08:19 08/29/20 08:19 Labs: Abnormal Lab Results - Last 24 Hours (Table) 08/28/20 08/29/20 08/29/20 Range/Units 19:50 02:07 07:04 RBC (4.30-5.90) m/uL Hgb (13.0-17.5) gm/dL Hct (39.0-53.0) % Lymphocytes # (1.0-4.8) k/uL Potassium (3.5-5.1) mmol/L Chloride (98-107) mmol/L Carbon Dioxide (22-30) mmol/L BUN (9-20) mg/dL Creatinine (0.66-1.25) mg/dL Glucose (74-99) mg/dL POC Glucose (mg/dL) 198 H 368 H 396 H (75-99) mg/dL Calcium (8.4-10.2) mg/dL 08/29/20 08/29/20 08/29/20 Range/Units 08:19 08:19 12:02 RBC 3.18 L (4.30-5.90) m/uL Hgb 9.4 L (13.0-17.5) gm/dL Hct 30.1 L (39.0-53.0) % Lymphocytes # 0.3 L (1.0-4.8) k/uL Potassium 3.4 L (3.5-5.1) mmol/L Chloride 91 L (98-107) mmol/L Carbon Dioxide 37 H (22-30) mmol/L BUN 86 H (9-20) mg/dL Creatinine 1.80 H (0.66-1.25) mg/dL Glucose 319 H (74-99) mg/dL POC Glucose (mg/dL) 334 H (75-99) mg/dL Calcium 8.2 L (8.4-10.2) mg/dL Assessment and Plan Assessment: Impression: Acute on chronic hypoxic respiratory failure, multifactorial secondary to acute COVID-19 pneumonia, and severe COPD exacerbation, underlying community-acquired pneumonia is not entirely ruled out. But felt to be less likely. Possible component of chronic systolic congestive heart failure Severe COPD exacerbation FEV1 is normal at 22%. Patient is normally on oxygen at home, he is on 5 L Acute cellulitis of lower extremities. Acute on chronic systolic congestive heart failure, ejection fraction of 30% History of diverticular disease/diverticulosis. Acute kidney injury. History of pacemaker implantation. History of obstructive sleep apnea syndrome. History of left sided pneumothorax, required chest tube insertion. History of alcoholism. Recommendation: Continue to titrate oxygen, use BiPAP as needed. Patient is now on 13 L. Continue bronchodilators. Continue amiodarone Continue Eliquis. Continue cefepime. Continue methylprednisolone 40 mg IV push every 8 hours. Continue Protonix. Continue to monitor inflammatory markers. Continue COVID-19 cocktail. We'll continue to follow Time with Patient: Less than 30
[2020-08-29 17:33] LABS: Glucose,Whole Blood 237 mg/dL (75-99)
--- NOTE | 2020-08-29 19:17 | P.PN ---
Subjective HISTORY OF PRESENT ILLNESS: This is a pleasant 64-year-old male past medical history significant for paroxysmal atrial fibrillation on long-term anticoagulation, sick sinus syndrome status post permanent pacemaker implantation, nonischemic cardiomyopathy, chronic systolic heart failure, obstructive sleep apnea, COPD, hypertension, dyslipidemia, chronic kidney disease and obstructive sleep apnea. He follows in the office with Dr. Landeros. We have been asked to see in consultation for A. fib with RVR. He is currently being treated for COVID-19. Last night telemetry tracings indicated he went into atrial fibrillation with heart rate of 120 230 bpm. He was initiated on IV Cardizem. Currently he co ntinues to be in A. fib with heart rate in the 70s. Most recent echocardiogram obtained in 08/03/2020 revealed impaired LV systolic function with ejection fraction 30-35%, moderate MR, mild TR and borderline pulmonary hypertension with an RVSP of 38 mmHg. EKG reveals on arrival revealed sinus bradycardia heart rate of 51. Telemetry tracings indicate atrial fibrillation. Chest xray on admission reveals bilateral air space disease worse in the right upper lobe. Repeat yesterday reveals multifocal pneumonia stable from previous study. Laboratory reviewed, CBC 3.5, hemoglobin 9.5, platelets 104, sodium 136, potassium 3.3, creatinine 1.52, magnesium on admission 1.7, troponin 0.056 and procalcitonin on an 0.46. The patient is COVID positive. Current cardiac medications include Eliquis 2.5 mg twice a day, aspirin 81 mg daily, chlorthalidone 25 mg daily, Lasix 60 mg twice a day and Toprol 100 mg daily. 08/24/2020 Patient examined this morning at the bedside by Dr. Mendez. Patient is on 12L high flow nasal cannula with oxygen saturations greater than 92%. Blood pressure 113/62. Telemetry reveals atrial fibrillation with uncontrolled ventricular rate in the 120s. 08/25/2020 Patient examined at the bedside by Dr. Mendez. Patient remains in atrial fibrillation. Heart rate around 100. He remains on IV amio. Patient reports shortness of breath. He states he is unable to lay flat in bed due to dyspnea. BNP this morning 16966. 08/26/20 Patient seen and examined. He states he feels fairly similar to yesterday. Still SOB and orthopnea. He was started on Lasix 80mg IV bid and admits to some increase in urine output. His HR's have been controlled in the 60-70's with intermittent pacing, still in Afib. He did have a small bloody nose. 08/27 Patient seen and examined. He states he did cough up some dark mucus and states that he feels somewhat better after this. He has been diuresed with Lasix 80 mg IV twice a day and feels somewhat better. Kidney function has not resulted from today. He does admit to some mild diarrhea. No chest pain or pressure. States he feels he is slowly improving. Still has diffuse lower extremity edema. 08/28/20: Patient seen and examined at bedside, on BiPAP. His major complaint is having frequent chills. States his breathing he thinks has improved. BP 96/56, heart rate in the 60s, he continues to be rate controlled, afebrile. He is being maintained on IV Lasix 80mg BID, amiodarone 400mg BID, Eliquis 2.5mg BID, metoprolol succinate 50mg nightly and 100mg daily. urine out put with 1400mL urine 08/29 Patient seen and examined. Patient states he is feeling "okay" today. Denies any chest pain or pressure. Breathing somewhat stable and somewhat improved. He has been continued with the IV diuresis, Lasix 80 mg twice a day and states he has been urinating a large amount however urine outputs measured only 1250 output in the last 24 hours. Creatinine remained stable at 1.8. PHYSICAL EXAM: VITAL SIGNS: Reviewed. GENERAL: Well-developed in no acute distress. NECK: Supple. No JVD or thyromegaly LUNGS: Respirations even and unlabored. Lungs diminished to auscultation bilaterally with bibasilar rales. HEART: Mildly tachycardic. Irregular rate and rhythm. S1 and S2 heard. Systolic murmur noted. EXTREMITIES: Normal range of motion. No clubbing or cyanosis. Unable to palpate pulses in lower extremities. Edema present to bilateral lower extremities with evidence of mottling. ASSESSMENT: COVID 19 pneumonia Paroxysmal atrial fibrillation with rapid ventricular response on eliquis Acute on chronic systolic heart failure Acute hypoxic respiratory failure COPD Lower extremity cellulitus Non-ischemic cardiomyopathy Hypertension Dyslipidemia Diabetes mellitus PLAN: Continue anticoagulation with Eliquis Continue Toprol 100 mg in the morning and 50 mg in the evening Continue loading with amio 400mg BID Continue telemetry monitoring Continue IV lasix 80mg IV Q12 hours as he still appears volume overloaded and monitor Cr. Today's creatinine stable at 1.80. Monitor response of Zaroxolyn tomorrow. Replace Potassium per protocol Daily weights Accurate I&O Wean oxygen as tolerated Further recommendations pending patient course. Prognosis guarded Objective - Vital Signs Vital signs: Vital Signs Temp 97.4 F L 08/29/20 15:25 Pulse 80 08/29/20 15:25 Resp 20 08/29/20 15:25 BP 110/71 08/29/20 15:25 Pulse Ox 90 L 08/29/20 15:25 Intake & Output 08/29/20 08/29/20 08/30/20 06:59 18:59 06:59 Intake Total 340 601 Output Total 800 450 Balance -460 151 Weight 129.5 kg Intake: Oral 340 601 Output: Urine 800 450 Other: Voiding Method Urinal Urinal # Voids 1 # Bowel Movements 1 - Labs CBC & Chem 7: 08/29/20 08:19 08/29/20 08:19 Labs: Abnormal Lab Results - Last 24 Hours (Table) 08/28/20 08/29/20 08/29/20 Range/Units 19:50 02:07 07:04 RBC (4.30-5.90) m/uL Hgb (13.0-17.5) gm/dL Hct (39.0-53.0) % Lymphocytes # (1.0-4.8) k/uL Potassium (3.5-5.1) mmol/L Chloride (98-107) mmol/L Carbon Dioxide (22-30) mmol/L BUN (9-20) mg/dL Creatinine (0.66-1.25) mg/dL Glucose (74-99) mg/dL POC Glucose (mg/dL) 198 H 368 H 396 H (75-99) mg/dL Calcium (8.4-10.2) mg/dL 08/29/20 08/29/20 08/29/20 Range/Units 08:19 08:19 12:02 RBC 3.18 L (4.30-5.90) m/uL Hgb 9.4 L (13.0-17.5) gm/dL Hct 30.1 L (39.0-53.0) % Lymphocytes # 0.3 L (1.0-4.8) k/uL Potassium 3.4 L (3.5-5.1) mmol/L Chloride 91 L (98-107) mmol/L Carbon Dioxide 37 H (22-30) mmol/L BUN 86 H (9-20) mg/dL Creatinine 1.80 H (0.66-1.25) mg/dL Glucose 319 H (74-99) mg/dL POC Glucose (mg/dL) 334 H (75-99) mg/dL Calcium 8.2 L (8.4-10.2) mg/dL 08/29/20 Range/Units 17:22 RBC (4.30-5.90) m/uL Hgb (13.0-17.5) gm/dL Hct (39.0-53.0) % Lymphocytes # (1.0-4.8) k/uL Potassium (3.5-5.1) mmol/L Chloride (98-107) mmol/L Carbon Dioxide (22-30) mmol/L BUN (9-20) mg/dL Creatinine (0.66-1.25) mg/dL Glucose (74-99) mg/dL POC Glucose (mg/dL) 237 H (75-99) mg/dL Calcium (8.4-10.2) mg/dL
[2020-08-29 19:53] LABS: Glucose,Whole Blood 188 mg/dL (75-99)
[2020-08-29] MEDS: METOPROLOL SUCCINATE (ER) 50 MG TAB.ER.24H PO SCH (20:17)
[2020-08-29] MEDS: ALPRAZolam 0.5 MG TAB PO PRN (23:08)
[2020-08-30 07:06] LABS: Glucose,Whole Blood 312 mg/dL (75-99)
[2020-08-30] MEDS: LEVOTHYROXINE 25 MCG TAB PO SCH (07:10)
[2020-08-30] MEDS: MIDODRINE 5 MG TAB PO SCH ×3 (07:10→17:32)
[2020-08-30] MEDS: INSULIN ASPART (NovoLOG) 100 UNIT/ML VIAL SQ SCH ×7 (07:10→22:13)
[2020-08-30] MEDS: PANTOPRAZOLE 40 MG TABLET PO SCH (07:10)
[2020-08-30] MEDS: INSULIN DETEMIR (LEVEMIR) 100 UNIT/ML SYR SQ SCH (07:10)
[2020-08-30] MEDS: ALBUTEROL HFA INHALER INHALATION SCH ×4 (08:35→20:26)
[2020-08-30] MEDS: TIOTROPIUM 2.5 MCG INHALER INHALATION SCH (08:35)
[2020-08-30] MEDS ORDERED: metOLazone 5 MG TAB PO ONE ×2 (09:00→20:00)
[2020-08-30] MEDS: FUROSEMIDE 10 MG/ML 10 ML VIAL IV SCH ×2 (09:02→20:57)
[2020-08-30] MEDS: guaiFENesin 600 MG TABLET.ER PO SCH ×2 (09:03→20:58)
[2020-08-30] MEDS: methylPREDNISolone SOD SUCCI 40 MG/ML 1 ML VIAL IV SCH ×3 (09:03→23:18)
[2020-08-30] MEDS: AMIODARONE 200 MG TAB PO SCH ×2 (09:03→20:57)
[2020-08-30] MEDS: METOPROLOL SUCCINATE (ER) 100 MG TAB.ER.24H PO SCH (09:04)
[2020-08-30] MEDS: APIXABAN 2.5 MG TABLET PO SCH ×2 (09:04→20:58)
[2020-08-30] MEDS: CHOLECALCIFEROL 25 MCG (1000 IU) TABLET PO SCH (09:05)
[2020-08-30] MEDS: ASCORBIC ACID 500 MG TAB PO SCH ×2 (09:05→20:58)
[2020-08-30] MEDS: ZINC SULFATE 220 MG CAP PO SCH (09:05)
[2020-08-30 09:47] LABS: Calcium 8.3 mg/dL (8.4-10.2); Potassium 4.2 mmol/L (3.5-5.1)
[2020-08-30] MEDS: TAMSULOSIN 0.4 MG CAP.ER.24H PO SCH (10:14)
[2020-08-30] MEDS: FAMOTIDINE 20 MG TAB PO SCH ×2 (10:14→20:58)
--- NOTE | 2020-08-30 11:13 | P.PN ---
Subjective Progress Note Date: 08/27/20 Principal diagnosis: Acute hypoxic respiratory failure Covid and pneumonia Patient is a 64-year-old male with a known history of atrial fibrillation on anticoagulation with Eliquis, history of pacemaker placement due to SSS, chronic CHF with systolic dysfunction ejection fraction 35%, COPD on home oxygen 5 L via nasal cannula, hypertension, diabetes type 2 [id number], obstructive sleep apnea, previous history of alcohol abuse/DTs, BPH, CKD stage III, bilateral lower extremity peripheral neuropathy and previous history of smoking other multiple medical problems presents to ER with complaints of worsening shortness of breath for the past 2 to 3 days. Patient was presents to ER due to respiratory distress by EMS. Patient was placed on 9% nonrebreather and was saturating at 80%. Patient was started on BiPAP while in the ER. Otherwise patient has been afebrile. No complaints of nausea vomiting or abdominal pain or diarrhea. Laboratory data showed blood pressure 107/95 respiration 26 pulse is 120 and 100% nonrebreather on admission. Laboratory data showed WBC 4.9 hemoglobin 11.5 platelets 102 chloride 84 sodium 134 bicarb 44 BUN 16 creatinine 1.73 and Troponin 0 0.056, CRP 178 and coronavirus PCR detected. Chest x-ray showed correlate for pneumonia. Edema not excluded. Follow-up suggested. Patient was recently discharged admitted to the hospital from 08/02/2020 to 08/10/2020 08/21/2020 Patient is currently on BiPAP with FiO2 50%. Saturating at 88 to 90%. Awake alert oriented x3. Able to communicate. Patient has been afebrile. No complaints of chest pain. Patient is complaining of bilateral lower extremity pain and requesting pain medications. No diarrhea or dysuria. No nausea or vomiting. Chest x-ray showed multifocal pneumonia is stable. Due to elevated procalcitonin level 0.46 and recent sputum cultures growing Pseudomonas. Patient was be started on cefepime. Pulmonary is on board. Laboratory data showed WBC 1.5 hemoglobin 9.3 platelets 86 lymphocytes 0.4 D-dimer is 0.43 Sodium 134 potassium 4.1 chloride 87 bicarb is 39 BUN 56 and creatinine 1.6 Patient is being continued on IV Solu-Medrol, Eliquis and multivitamins. 08/22/2020 Patient is currently on 15 L 100% nonrebreather. BiPAP has been discontinued. Patient states that he feels better. No complaints of chest pain or worsening shortness breath. Patient is being continued antibiotics in the form of cefepime due to recent sputum cultures positive for Pseudomonas. Blood cultures have been negative so far. No complaints of chest pain. Patient does have cough without sputum production. No nausea vomiting or abdominal pain or diarrhea. Pulmonary is on board. 08/23/2020 Patient is currently sitting on the side of the bed. On percent nonrebreather which is being transitioned to 8 L oxygen via nasal cannula. Arrest patient went into atrial fibrillation with rapid regular rate overnight. Cardiology was consulted. Was started on Cardizem drip which is transitioned to Toprol-XL. Continue with Eliquis. No complaints of chest pain or shortness of breath no nausea vomiting abdominal pain or diarrhea. Laboratory showed WBC 3.5 hemoglobin 9.5 platelets 87 bicarb is 42 potassium 3.3 BUN 57 and creatinine 1.52 and blood sugar is 125. Patient is being continued IV Solu-Medrol, antibiotics, cefepime and Lasix 60 mg twice daily and insulin regimen. 08/24/2020 Patient is currently sitting on side of the bed. Still tachycardic and tachypneic. Requiring oxygen at 12 L via nasal cannula and saturating at 88%. Patient was started amiodarone drip as per cardiology. Currently on metoprolol 50 mg at bedtime and Lasix 60 mg twice daily. Cardiology and pulmonary is on board. Laboratory data showed WBC 7.1 hemoglobin 10.1 platelets 104 D-dimer 0.98 Sodium 136 potassium 4.3 BUN 58 and creatinine 1.4 bicarb is 40, LDH 710 and CRP 4.3 Chest x-ray showed pneumonia may have worsened in the interval. 08/25/2020 Patient is currently in the medical floor requiring BiPAP. No complaints of chest pain or worsening shortness of breath. Patient became lethargic and altered yesterday. ABGs were not done. Laboratory data showed WBC 6.6 hemoglobin 9.9 and platelets 102 Sodium 134 potassium 3.8 chloride 90 bicarb 36 BUN 71 creatinine 1.72. Lasix dose increased to 80 mg IV every 12. Heart rate is controlled. Currently on amiodarone 400 mg twice daily. Continue with insulin regimen and blood sugar is controlled. Patient has been afebrile. Pulmonary and cardiology is on board. 08/26/2020 Patient is currently sitting in the bed comfortably. Currently 15 L oxygen via nasal cannula. Patient is also using BiPAP as needed. Heart rate is better controlled. Currently on metoprolol and amiodarone. Patient is being continued on IV Lasix 80 mg every 12. Patient has been afebrile. No nausea vomiting or abdominal pain or diarrhea. Tolerating oral diet. Laboratory showed sodium 135 potassium 3.6 BUN 79 and creatinine 1.75 and blood sugar is 338 today. Patient is also on methylprednisolone 40 mg IV every 8. Continue with the Levemir 40 units daily and insulin sliding scale. Patient is also midodrine 10 mg 3 times daily. Blood pressures stable. 08/27/2020 Patient is currently sitting on the side of the bed. Shortness of breath is improving. Otherwise patient is still on oxygen at 15 L via nasal cannula. Trending down to 10 L high flow. Otherwise awake alert oriented 3. Continued on antibiotics in the form of ceftriaxone. Continued on diuretics. Laboratory data showed BUN 17 and creatinine 1.75 and blood sugar is elevated. Preprandial insulin dose will be added. Continue with Levemir. Neck lump patient has been afebrile. Denied any headache or dizziness or lightheadedness. No chest pain. Current medications reviewed. Objective - Vital Signs Vital signs: Vital Signs Temp 96.6 F L 08/27/20 16:45 Pulse 74 08/27/20 16:45 Resp 20 08/27/20 16:45 BP 110/69 08/27/20 16:45 Pulse Ox 95 08/27/20 16:45 Intake & Output 08/27/20 08/27/20 08/28/20 06:59 18:59 06:59 Intake Total 125 480 Output Total 850 Balance -725 480 Weight 114.5 kg 114.5 kg Intake: Oral 125 480 Output: Urine 850 Other: Voiding Method Urinal - Exam PHYSICAL EXAMINATION: Patient is lying in the bed no distress, awake alert and oriented.. HEENT: Normocephalic. Neck is supple. Pupils reactive. Nostrils clear. Oral cavity is moist. Ears reveal no drainage. Neck reveals no JVD, carotid bruits, or thyromegaly. CHEST EXAMINATION: Trachea is central. Symmetrical expansion.Bibasilar diminished air entry and mild expiratory wheeze . CARDIAC: Normal S1, S2 with no gallops. No murmurs ABDOMEN: Soft. Bowel sounds normal. No organomegaly. No abdominal bruits. Extremities: 2+ edema. leg wounds /sores . No clubbing or cyanosis Neurologically awake, alert, oriented x3 with well-coordinated movements. No focal deficits noted Skin: No rash or skin lesions. Psychiatric: Coperative. Nonsuicidal Musculoskeletal: No joint swelling or deformity. Normal range of motion. - Labs CBC & Chem 7: 08/29/20 08:19 08/30/20 07:59 Labs: Abnormal Lab Results - Last 24 Hours (Table) 08/27/20 08/27/20 08/27/20 Range/Units 06:25 11:48 17:04 POC Glucose (mg/dL) 174 H 354 H 325 H (75-99) mg/dL 08/27/20 Range/Units 20:36 POC Glucose (mg/dL) 234 H (75-99) mg/dL Assessment and Plan Assessment: Acute COVID-19 pneumonia Acute on chronic hypoxic and hypercapnic respiratory failure due to Covid pneumonia with underlying COPD Paroxysmal atrial fibrillation with rapid regular rate Possible bacterial pneumonia with recent sputum cultures growing Pseudomonas. Chronic hypoxic respiratory failure secondary to COPD on 5 L. On prednisone 20 mg daily oxygen via nasal cannula at home. Chronic CHF with systolic dysfunction ejection fraction 35% Nonischemic cardiomyopathy acute on chronic kidney disease stage III with baseline creatinine 1.1. 1.71 on admission Bilateral lower extremity swelling history of alcohol abuse and DTs Diabetes type 2 insulin-dependent Hypertension Hyperlipidemia Obstructive sleep apnea not on CPAP at home Hx of PAF on anticoagulation with Eliquis. Considering ablation as an outpatient. Status post pacemaker placement. Patient history of smoking DVT prophylaxis patient is already on Eliquis. Plan: Patient is currently on BiPAP. Was given IV Solu-Medrol 125 mg x 1. Patient will be continued on 60mg Q6 and multivitamins and Eliquis. Started on cefepime 2 g every 12. Amiodarone changed to by mouth 400 mg twice daily. Continue with metoprolol. IV lasix 80mg BID Follow-up inflammatory markers. Patient may be a candidate for remdesivir course. Continue with midodrine and Lasix dose as blood pressure tolerated. c/w tele Pulmonary and Cardiology is on board.. Continue to follow closely. Monitor renal function. Prognosis guarded at this time.. Time with Patient: Greater than 30
[2020-08-30 11:57] LABS: Glucose,Whole Blood 338 mg/dL (75-99)
--- NOTE | 2020-08-30 16:34 | P.PN ---
Subjective Progress Note Date: 08/30/20 Principal diagnosis: Acute hypoxic respiratory failure secondary to acute COVID-19 pneumonia and severe COPD 64-year-old male patient, came into the hospital because of worsening shortness of breath a few days duration. He was brought in via EMS. He was having oxygen desaturation. The patient in the emergency was started on BiPAP treatment. His wbc was 1.5 and a d-dimer was 0.4 with a creatinine of 1.6 and a sodium level of 134. His LDH level was 1024 at the CRP level was 178. The patient's troponin level was 0.05 and the propofol level was 0.4. The chest x-ray showed bilateral airspace disease right more than left more so in the right upper lobe. For now, the patient is still on a BiPAP at 14/6 with an FiO2 of 50%. He is currently on IV Solu-Medrol 60 mg every 6 hours. He is on long-term anticoagulation with Eliquis 2.5 mg by mouth twice a day. He is also on Spiriva and albuterol HFA regarding his COPD. Is taking Levemir insulin 40 units along with a NovoLog sliding scale coverage. While in the BiPAP, the patient is able to generate tidal volumes of 100 mL with a rate of 20. He has a full face mask and is able to tolerate the treatment without any major difficulties with an FiO2 of 50%.Note that the patient was in the hospital on 08/02/2020 and the patient was Hospital as for CHF, lower extremity edema and a component of COPD exacerbation. Back then, his COVID-19 testing was negative. On today's evaluation of 08/22/2020 the patient is on 15 L of oxygen by nasal cannula and was taken off the BiPAP. Feeling better. Maintaining her pulse ox above 90%. The patient otherwise has no new complaints. He was seen in consultation yesterday and he was on a BiPAP treatment back then. He continues to have extensive consolidation of the right upper lobe based on earlier chest x-rays. His COVID-19 testing was positive. His cough has been on the case mucous with them. His pro-calcitonin level was 0.46. We were considering Tocilizumab treatment on this patient if his condition would get worse. For now, he is looking better. On 08/23/2020 patient seen in follow-up on selective care unit, he is resting in bed, he is on 8 L of oxygen, pulse ox is 91%, FiO2 has been weaned down, his breathing seems to be stable, improving, he does get short of breath with exertion, at times he is able to bring up some colored sputum, his been afe brile, no complaints of chest pain, his only complaint today is that he is unable to sleep at night. No new chest x-rays, these labs have been reviewed, showing a little, 3.5, hemoglobin is 9.5, sodium is 136, potassium is 3.3, chloride is 89, CO2 42, BUN is 57, creatinine is 1.5. he remains on oral Lasix 60 mg twice daily, he is on Eliquis 2.5 mg daily, she is on IV Solu-Medrol 40 mg every 8 hours. Fever or chills, his blood cultures have been negative, Patient was reevaluated today on 08/24/2020, patient is now on 12 L oxygen high flow cannula, with O2 saturation in the low 90s. Patient seems to be in minimal respiratory distress, slightly tachypneic and tachycardic. CBC is relatively normal however hemoglobin is 10.2, d-dimer 0.98 Normal BUN is 58 creatinine 1.40 bicarb is 40. Blood sugar is 375, C-reactive protein is elevated at 4.3 and LDH is elevated at 710 chest x-ray showed slight worsening of his pneumonic process. However his pneumonia seems to be mostly affecting most of the right lung, and minimal involvement of the left lower lobe Reevaluated today on 08/25/2020, patient has been on BiPAP since yesterday. His FiO2 is down to 40%, and he is on BiPAP with O2 saturation of 94%. Apparently he had mental status changes yesterday and lethargy, and ABG showed well compensated chronic respiratory acidosis with a pO2 of 54 pCO2 of 58 pH of 7.41, and the patient was placed by the house physician on BiPAP and he remains on BiPAP which she seems to tolerate. O2 saturation now is 94% on 40% FiO2. Patient seems to be a bit comfortable on the BiPAP, BNP level earlier today was very high at 32,900. Last chest x-ray showed mostly bilateral patchy infiltrates, possibility of unilateral pulmonary edema involving the right lung is not entirely ruled out. Patient has been on Lasix at 80 mg IV push every 12 hours. Patient was reevaluated today on 08/26/2020, he is now on high flow cannula, 15 L/m, O2 saturation remains marginal in the range of 88-89%. Intermittently has been on BiPAP. Patient looks comfortable on 15 L flow, his labs look normal WBC count is 6.6 hemoglobin is 9.9. Electrolytes are normal. BUN is 79 and creatinine is 1.75. Blood sugar is 279. BNP level is 32,900. Patient does have acute on chronic systolic congestive heart failure in addition to his COVID-19 pneumonia, as well as paroxysmal atrial fibrillation, and chronic lower extremity cellulitis. He is also known to have history of nonischemic cardiomyopathy. Patient remains on anticoagulation therapy with Eliquis, he is also on Toprol, amiodarone, and is also on Lasix 80 mg IV push every 12 hours. Some improvement in the last 24 hours, but not much of a clinical change. Last chest x-ray showed more involvement of the right lung compared to the left lung, hence I'm suspecting some component of atypical pulmonary edema/CHF. In addition to his COVID-19 pneumonia. Patient was reevaluated today on 08/27/2020, remains on high flow nasal cannula, 15 L/m, at times he went down to 10 L high flow cannula, patient is sitting in a bedside chair, seems to be comfortable, not in distress. O2 sats is 95%. He is hemodynamically stable. Not in any distress. Electrolytes are normal. BUN is 79 creatinine is 1.75. Blood sugars are ranging between 200 up to 338. Last B BUTTER FAT TESTER level was 32 900. Patient remains on diuretics. Patient was reevaluated today on 08/28/2020, presently on BiPAP, 40% FiO2, O2 saturations in the 90s. Patient seems to be much more comfortable today on BiPAP. He was on 10 L nasal cannula all along. CBC is relatively normal hemoglobin is 10.1. Electrodes are normal renal profile showed a BUN of 89 and creatinine 1.80. Patient has COVID-19 pneumonia paroxysmal atrial fibrillation chronic cellulitis and nonischemic cardiomyopathy with LV dysfunction. Remains on Toprol, amiodarone, Lasix, he is steadily but slowly improving. Reevaluated today on 08/29/2020, patient is now on 15 L high flow cannula, O2 sats is 90%. Patient does not seem to be in any distress, he is feeling better, at times he uses his BiPAP. Blood pressure is 110/70 heart rate of 84, patient is asymptomatic, he is afebrile. CBC is relatively normal electrodes are normal BUN is 86 creatinine is 1.80, remains on diuretics. Patient is known to have history of nonischemic cardiomyopathy and LV dysfunction. Reevaluated today on 08/30/2020, patient is now on 7 L high flow nasal cannula, intermittently on BiPAP, he feels great today compared to how he felt over the last 1 week. No cough no wheezing no shortness of breath, patient has a BiPAP at bedside, but does not seem to be using it. His electrolytes are normal BUN is 89 creatinine is 1.69, improving steadily since admission. Objective - Vital Signs Vital signs: Vital Signs Temp 97.4 F L 08/30/20 08:59 Pulse 72 08/30/20 13:45 Resp 18 08/30/20 13:45 BP 110/73 08/30/20 11:00 Pulse Ox 90 L 08/30/20 12:37 Intake & Output 08/29/20 08/30/20 08/30/20 18:59 06:59 18:59 Intake Total 601 100 425 Output Total 450 1050 Balance 151 -950 425 Weight 112.5 kg Intake: Oral 601 100 425 Output: Urine 450 1050 Other: Voiding Method Urinal Urinal Urinal # Voids 2 - Exam Physical Exam: Revealed a 64-year-old white male on high flow oxygen. On 7 L high flow cannula Head: Atraumatic, normocephalic. HEENT:[Neck is supple.] [No neck masses.] [No thyromegaly.] [No JVD.] Chest: [Symmetrical chest expansion, crackles at the bases. Cardiac Exam: [Normal S1 and S2, no S3 gallop, no murmur.] Abdomen: [Soft, nontender, no megaly, no rebound, no guarding, normal bowel sounds.] Extremities: [No clubbing, chronic venous stasis changes noted bilaterally., no cyanosis.] Neurological Exam: [No focal neurologic deficit.] Alert and oriented 3. No focal deficits. Psychiatric: Normal mood affect and normal mental status examination. Skin: No rashes. Musculoskeletal: No deformities and no limitation in range of motion - Labs CBC & Chem 7: 08/29/20 08:19 08/30/20 07:59 Labs: Abnormal Lab Results - Last 24 Hours (Table) 08/29/20 08/29/20 08/30/20 Range/Units 17:22 19:51 07:04 Sodium (137-145) mmol/L Chloride (98-107) mmol/L Carbon Dioxide (22-30) mmol/L BUN (9-20) mg/dL Creatinine (0.66-1.25) mg/dL Glucose (74-99) mg/dL POC Glucose (mg/dL) 237 H 188 H 312 H (75-99) mg/dL Calcium (8.4-10.2) mg/dL 08/30/20 08/30/20 Range/Units 07:59 11:46 Sodium 135 L (137-145) mmol/L Chloride 91 L (98-107) mmol/L Carbon Dioxide 40 H (22-30) mmol/L BUN 89 H (9-20) mg/dL Creatinine 1.69 H (0.66-1.25) mg/dL Glucose 292 H (74-99) mg/dL POC Glucose (mg/dL) 338 H (75-99) mg/dL Calcium 8.3 L (8.4-10.2) mg/dL Assessment and Plan Assessment: Impression: Acute on chronic hypoxic respiratory failure, multifactorial secondary to acute COVID-19 pneumonia, and severe COPD exacerbation, underlying community-acquired pneumonia is not entirely ruled out. But felt to be less likely. Possible component of chronic systolic congestive heart failure Severe COPD exacerbation FEV1 is normal at 22%. Patient is normally on oxygen at home, he is on 5 L Acute cellulitis of lower extremities. Acute on chronic systolic congestive heart failure, ejection fraction of 30% History of diverticular disease/diverticulosis. Acute kidney injury. History of pacemaker implantation. History of obstructive sleep apnea syndrome. History of left sided pneumothorax, required chest tube insertion. History of alcoholism. Recommendation: Continue to titrate oxygen, presently on 7 L high flow nasal cannula patient is normally on 5 L at home. Continue bronchodilators. Continue amiodarone Continue Eliquis. Continue methylprednisolone 40 mg IV push every 8 hours. Transition to prednisone in the next 24 hours. Continue Protonix. Consider discharge planning in the next 24-48 hours. Continue COVID-19 cocktail. We'll continue to follow Time with Patient: Less than 30
[2020-08-30 16:56] LABS: Glucose,Whole Blood 240 mg/dL (75-99)
--- NOTE | 2020-08-30 19:46 | P.PN ---
Subjective HISTORY OF PRESENT ILLNESS: This is a pleasant 64-year-old male past medical history significant for paroxysmal atrial fibrillation on long-term anticoagulation, sick sinus syndrome status post permanent pacemaker implantation, nonischemic cardiomyopathy, chronic systolic heart failure, obstructive sleep apnea, COPD, hypertension, dyslipidemia, chronic kidney disease and obstructive sleep apnea. He follows in the office with Dr. Landeros. We have been asked to see in consultation for A. fib with RVR. He is currently being treated for COVID-19. Last night telemetry tracings indicated he went into atrial fibrillation with heart rate of 120 230 bpm. He was initiated on IV Cardizem. Currently he co ntinues to be in A. fib with heart rate in the 70s. Most recent echocardiogram obtained in 08/03/2020 revealed impaired LV systolic function with ejection fraction 30-35%, moderate MR, mild TR and borderline pulmonary hypertension with an RVSP of 38 mmHg. EKG reveals on arrival revealed sinus bradycardia heart rate of 51. Telemetry tracings indicate atrial fibrillation. Chest xray on admission reveals bilateral air space disease worse in the right upper lobe. Repeat yesterday reveals multifocal pneumonia stable from previous study. Laboratory reviewed, CBC 3.5, hemoglobin 9.5, platelets 104, sodium 136, potassium 3.3, creatinine 1.52, magnesium on admission 1.7, troponin 0.056 and procalcitonin on an 0.46. The patient is COVID positive. Current cardiac medications include Eliquis 2.5 mg twice a day, aspirin 81 mg daily, chlorthalidone 25 mg daily, Lasix 60 mg twice a day and Toprol 100 mg daily. 08/24/2020 Patient examined this morning at the bedside by Dr. Mendez. Patient is on 12L high flow nasal cannula with oxygen saturations greater than 92%. Blood pressure 113/62. Telemetry reveals atrial fibrillation with uncontrolled ventricular rate in the 120s. 08/25/2020 Patient examined at the bedside by Dr. Mendez. Patient remains in atrial fibrillation. Heart rate around 100. He remains on IV amio. Patient reports shortness of breath. He states he is unable to lay flat in bed due to dyspnea. BNP this morning 49621. 08/26/20 Patient seen and examined. He states he feels fairly similar to yesterday. Still SOB and orthopnea. He was started on Lasix 80mg IV bid and admits to some increase in urine output. His HR's have been controlled in the 60-70's with intermittent pacing, still in Afib. He did have a small bloody nose. 08/27 Patient seen and examined. He states he did cough up some dark mucus and states that he feels somewhat better after this. He has been diuresed with Lasix 80 mg IV twice a day and feels somewhat better. Kidney function has not resulted from today. He does admit to some mild diarrhea. No chest pain or pressure. States he feels he is slowly improving. Still has diffuse lower extremity edema. 08/28/20: Patient seen and examined at bedside, on BiPAP. His major complaint is having frequent chills. States his breathing he thinks has improved. BP 96/56, heart rate in the 60s, he continues to be rate controlled, afebrile. He is being maintained on IV Lasix 80mg BID, amiodarone 400mg BID, Eliquis 2.5mg BID, metoprolol succinate 50mg nightly and 100mg daily. urine out put with 1400mL urine 08/29 Patient seen and examined. Patient states he is feeling "okay" today. Denies any chest pain or pressure. Breathing somewhat stable and somewhat improved. He has been continued with the IV diuresis, Lasix 80 mg twice a day and states he has been urinating a large amount however urine outputs measured only 1250 output in the last 24 hours. Creatinine remained stable at 1.8. 08/30 Patient seen and examined. Patient states he is steadily improved and feeling the best he has in the few days. We did give extra dose of Zaroxolyn as well as his Lasix IV and he has had good urine output today. He did have some diarrhea which started today. PHYSICAL EXAM: VITAL SIGNS: Reviewed. GENERAL: Well-developed in no acute distress. NECK: Supple. No JVD or thyromegaly LUNGS: Respirations even and unlabored. Lungs diminished to auscultation bilaterally with bibasilar rales. HEART: Mildly tachycardic. Irregular rate and rhythm. S1 and S2 heard. Systolic murmur noted. EXTREMITIES: Normal range of motion. No clubbing or cyanosis. Unable to palpate pulses in lower extremities. Edema present to bilateral lower extremities with evidence of mottling. ASSESSMENT: COVID 19 pneumonia Paroxysmal atrial fibrillation with rapid ventricular response on eliquis Acute on chronic systolic heart failure Acute hypoxic respiratory failure COPD Lower extremity cellulitus Non-ischemic cardiomyopathy Hypertension Dyslipidemia Diabetes mellitus PLAN: Continue anticoagulation with Eliquis Continue Toprol 100 mg in the morning and 50 mg in the evening Decrease amio to 200mg BID Continue telemetry monitoring Continue IV lasix 80mg IV Q12 hours as he still appears volume overloaded and monitor Cr. Today's creatinine stable. Monitor response of Zaroxolyn tomorrow. Replace Potassium per protocol. Likely transition to oral Lasix tomorrow and discharge in 24-48 hrs. Daily weights Accurate I&O Wean oxygen as tolerated Further recommendations pending patient course. Objective - Vital Signs Vital signs: Vital Signs Temp 97.2 F L 08/30/20 17:19 Pulse 65 08/30/20 17:19 Resp 20 08/30/20 17:19 BP 126/77 08/30/20 17:19 Pulse Ox 94 L 08/30/20 17:19 Intake & Output 08/30/20 08/30/20 08/31/20 06:59 18:59 06:59 Intake Total 100 425 Output Total 1050 600 Balance -950 425 -600 Weight 112.5 kg Intake: Oral 100 425 Output: Urine 1050 600 Other: Voiding Method Urinal Urinal # Voids 2 # Bowel Movements 2 - Labs CBC & Chem 7: 08/29/20 08:19 08/30/20 07:59 Labs: Abnormal Lab Results - Last 24 Hours (Table) 08/29/20 08/30/20 08/30/20 Range/Units 19:51 07:04 07:59 Sodium 135 L (137-145) mmol/L Chloride 91 L (98-107) mmol/L Carbon Dioxide 40 H (22-30) mmol/L BUN 89 H (9-20) mg/dL Creatinine 1.69 H (0.66-1.25) mg/dL Glucose 292 H (74-99) mg/dL POC Glucose (mg/dL) 188 H 312 H (75-99) mg/dL Calcium 8.3 L (8.4-10.2) mg/dL 08/30/20 08/30/20 Range/Units 11:46 16:48 Sodium (137-145) mmol/L Chloride (98-107) mmol/L Carbon Dioxide (22-30) mmol/L BUN (9-20) mg/dL Creatinine (0.66-1.25) mg/dL Glucose (74-99) mg/dL POC Glucose (mg/dL) 338 H 240 H (75-99) mg/dL Calcium (8.4-10.2) mg/dL
[2020-08-30 20:09] LABS: Glucose,Whole Blood 129 mg/dL (75-99)
[2020-08-30] MEDS: METOPROLOL SUCCINATE (ER) 50 MG TAB.ER.24H PO SCH (20:58)
[2020-08-30] MEDS: ALPRAZolam 0.5 MG TAB PO PRN (23:18)
[2020-08-30] MEDS: HYDROcodone/APAP 10-325MG 1 EACH TAB PO PRN (23:18)
--- NOTE | 2020-08-31 00:52 | P.PN ---
Subjective Progress Note Date: 08/28/20 Principal diagnosis: Acute hypoxic respiratory failure Covid and pneumonia Patient is a 64-year-old male with a known history of atrial fibrillation on anticoagulation with Eliquis, history of pacemaker placement due to SSS, chronic CHF with systolic dysfunction ejection fraction 35%, COPD on home oxygen 5 L via nasal cannula, hypertension, diabetes type 2 [id number], obstructive sleep apnea, previous history of alcohol abuse/DTs, BPH, CKD stage III, bilateral lower extremity peripheral neuropathy and previous history of smoking other multiple medical problems presents to ER with complaints of worsening shortness of breath for the past 2 to 3 days. Patient was presents to ER due to respiratory distress by EMS. Patient was placed on 9% nonrebreather and was saturating at 80%. Patient was started on BiPAP while in the ER. Otherwise patient has been afebrile. No complaints of nausea vomiting or abdominal pain or diarrhea. Laboratory data showed blood pressure 107/95 respiration 26 pulse is 120 and 100% nonrebreather on admission. Laboratory data showed WBC 4.9 hemoglobin 11.5 platelets 102 chloride 84 sodium 134 bicarb 44 BUN 16 creatinine 1.73 and Troponin 0 0.056, CRP 178 and coronavirus PCR detected. Chest x-ray showed correlate for pneumonia. Edema not excluded. Follow-up suggested. Patient was recently discharged admitted to the hospital from 08/02/2020 to 08/10/2020 08/21/2020 Patient is currently on BiPAP with FiO2 50%. Saturating at 88 to 90%. Awake alert oriented x3. Able to communicate. Patient has been afebrile. No complaints of chest pain. Patient is complaining of bilateral lower extremity pain and requesting pain medications. No diarrhea or dysuria. No nausea or vomiting. Chest x-ray showed multifocal pneumonia is stable. Due to elevated procalcitonin level 0.46 and recent sputum cultures growing Pseudomonas. Patient was be started on cefepime. Pulmonary is on board. Laboratory data showed WBC 1.5 hemoglobin 9.3 platelets 86 lymphocytes 0.4 D-dimer is 0.43 Sodium 134 potassium 4.1 chloride 87 bicarb is 39 BUN 56 and creatinine 1.6 Patient is being continued on IV Solu-Medrol, Eliquis and multivitamins. 08/22/2020 Patient is currently on 15 L 100% nonrebreather. BiPAP has been discontinued. Patient states that he feels better. No complaints of chest pain or worsening shortness breath. Patient is being continued antibiotics in the form of cefepime due to recent sputum cultures positive for Pseudomonas. Blood cultures have been negative so far. No complaints of chest pain. Patient does have cough without sputum production. No nausea vomiting or abdominal pain or diarrhea. Pulmonary is on board. 08/23/2020 Patient is currently sitting on the side of the bed. On percent nonrebreather which is being transitioned to 8 L oxygen via nasal cannula. Arrest patient went into atrial fibrillation with rapid regular rate overnight. Cardiology was consulted. Was started on Cardizem drip which is transitioned to Toprol-XL. Continue with Eliquis. No complaints of chest pain or shortness of breath no nausea vomiting abdominal pain or diarrhea. Laboratory showed WBC 3.5 hemoglobin 9.5 platelets 87 bicarb is 42 potassium 3.3 BUN 57 and creatinine 1.52 and blood sugar is 125. Patient is being continued IV Solu-Medrol, antibiotics, cefepime and Lasix 60 mg twice daily and insulin regimen. 08/24/2020 Patient is currently sitting on side of the bed. Still tachycardic and tachypneic. Requiring oxygen at 12 L via nasal cannula and saturating at 88%. Patient was started amiodarone drip as per cardiology. Currently on metoprolol 50 mg at bedtime and Lasix 60 mg twice daily. Cardiology and pulmonary is on board. Laboratory data showed WBC 7.1 hemoglobin 10.1 platelets 104 D-dimer 0.98 Sodium 136 potassium 4.3 BUN 58 and creatinine 1.4 bicarb is 40, LDH 710 and CRP 4.3 Chest x-ray showed pneumonia may have worsened in the interval. 08/25/2020 Patient is currently in the medical floor requiring BiPAP. No complaints of chest pain or worsening shortness of breath. Patient became lethargic and altered yesterday. ABGs were not done. Laboratory data showed WBC 6.6 hemoglobin 9.9 and platelets 102 Sodium 134 potassium 3.8 chloride 90 bicarb 36 BUN 71 creatinine 1.72. Lasix dose increased to 80 mg IV every 12. Heart rate is controlled. Currently on amiodarone 400 mg twice daily. Continue with insulin regimen and blood sugar is controlled. Patient has been afebrile. Pulmonary and cardiology is on board. 08/26/2020 Patient is currently sitting in the bed comfortably. Currently 15 L oxygen via nasal cannula. Patient is also using BiPAP as needed. Heart rate is better controlled. Currently on metoprolol and amiodarone. Patient is being continued on IV Lasix 80 mg every 12. Patient has been afebrile. No nausea vomiting or abdominal pain or diarrhea. Tolerating oral diet. Laboratory showed sodium 135 potassium 3.6 BUN 79 and creatinine 1.75 and blood sugar is 338 today. Patient is also on methylprednisolone 40 mg IV every 8. Continue with the Levemir 40 units daily and insulin sliding scale. Patient is also midodrine 10 mg 3 times daily. Blood pressures stable. 08/27/2020 Patient is currently sitting on the side of the bed. Shortness of breath is improving. Otherwise patient is still on oxygen at 15 L via nasal cannula. Trending down to 10 L high flow. Otherwise awake alert oriented 3. Continued on antibiotics in the form of ceftriaxone. Continued on diuretics. Laboratory data showed BUN 17 and creatinine 1.75 and blood sugar is elevated. Preprandial insulin dose will be added. Continue with Levemir. Neck lump patient has been afebrile. Denied any headache or dizziness or lightheadedness. No chest pain. 08/28/2020 Patient is currently sitting on the side of the bed. On BiPAP now. No complaints of chest pain or shortness of breath. No complaints of nausea vomiting or abdominal pain. Tolerating oral diet. No constipation. Laboratory data showed hemoglobin 10.1, WBC 6.3, platelets 146, sodium 137 potassium 3.3 chloride 93 BUN 89 and creatinine 1.89. Heart rate is better controlled. Cardiology and pulmonary is on board. Current medications reviewed. Objective - Vital Signs Vital signs: Vital Signs Temp 97.3 F L 08/28/20 17:00 Pulse 72 08/28/20 17:00 Resp 22 08/28/20 17:00 BP 116/65 08/28/20 17:00 Pulse Ox 90 L 08/28/20 17:00 Intake & Output 08/28/20 08/28/20 08/29/20 06:59 18:59 06:59 Intake Total 800 240 Output Total 1400 550 500 Balance -1400 250 -260 Weight 113 kg Intake: Oral 800 240 Output: Urine 1400 550 500 Other: Voiding Method Urinal Urinal # Voids 1 # Bowel Movements 1 - Exam PHYSICAL EXAMINATION: Patient is lying in the bed no distress, awake alert and oriented.. HEENT: Normocephalic. Neck is supple. Pupils reactive. Nostrils clear. Oral cavity is moist. Ears reveal no drainage. Neck reveals no JVD, carotid bruits, or thyromegaly. CHEST EXAMINATION: Trachea is central. Symmetrical expansion.Bibasilar diminished air entry and mild expiratory wheeze . CARDIAC: Normal S1, S2 with no gallops. No murmurs ABDOMEN: Soft. Bowel sounds normal. No organomegaly. No abdominal bruits. Extremities: 2+ edema. leg wounds /sores . No clubbing or cyanosis Neurologically awake, alert, oriented x3 with well-coordinated movements. No focal deficits noted Skin: No rash or skin lesions. Psychiatric: Coperative. Nonsuicidal Musculoskeletal: No joint swelling or deformity. Normal range of motion. - Labs CBC & Chem 7: 08/29/20 08:19 08/30/20 07:59 Labs: Abnormal Lab Results - Last 24 Hours (Table) 08/28/20 08/28/20 08/28/20 Range/Units 05:53 12:00 12:58 RBC 3.41 L (4.30-5.90) m/uL Hgb 10.1 L (13.0-17.5) gm/dL Hct 32.4 L (39.0-53.0) % Plt Count 146 L (150-450) k/uL Lymphocytes # 0.4 L (1.0-4.8) k/uL Potassium (3.5-5.1) mmol/L Chloride (98-107) mmol/L Carbon Dioxide (22-30) mmol/L BUN (9-20) mg/dL Creatinine (0.66-1.25) mg/dL Glucose (74-99) mg/dL POC Glucose (mg/dL) 149 H 206 H (75-99) mg/dL 08/28/20 08/28/20 08/28/20 Range/Units 12:58 17:05 19:50 RBC (4.30-5.90) m/uL Hgb (13.0-17.5) gm/dL Hct (39.0-53.0) % Plt Count (150-450) k/uL Lymphocytes # (1.0-4.8) k/uL Potassium 3.3 L (3.5-5.1) mmol/L Chloride 93 L (98-107) mmol/L Carbon Dioxide 39 H (22-30) mmol/L BUN 89 H (9-20) mg/dL Creatinine 1.80 H (0.66-1.25) mg/dL Glucose 148 H (74-99) mg/dL POC Glucose (mg/dL) 157 H 198 H (75-99) mg/dL Assessment and Plan Assessment: Acute COVID-19 pneumonia Acute on chronic hypoxic and hypercapnic respiratory failure due to Covid pneumonia with underlying COPD Paroxysmal atrial fibrillation with rapid regular rate Possible bacterial pneumonia with recent sputum cultures growing Pseudomonas. Chronic hypoxic respiratory failure secondary to COPD on 5 L. On prednisone 20 mg daily oxygen via nasal cannula at home. Chronic CHF with systolic dysfunction ejection fraction 35% Nonischemic cardiomyopathy acute on chronic kidney disease stage III with baseline creatinine 1.1. 1.71 on admission Bilateral lower extremity swelling history of alcohol abuse and DTs Diabetes type 2 insulin-dependent Hypertension Hyperlipidemia Obstructive sleep apnea not on CPAP at home Hx of PAF on anticoagulation with Eliquis. Considering ablation as an outpatient. Status post pacemaker placement. Patient history of smoking DVT prophylaxis patient is already on Eliquis. Plan: Patient is currently on BiPAP. Was given IV Solu-Medrol 125 mg x 1. Patient will be continued on 60mg Q6 and multivitamins and Eliquis. Started on cefepime 2 g every 12. Amiodarone changed to by mouth 400 mg twice daily. Continue with metoprolol. IV lasix 80mg BID Follow-up inflammatory markers. Patient may be a candidate for remdesivir course. Continue with midodrine and Lasix dose as blood pressure tolerated. c/w tele Pulmonary and Cardiology is on board.. Continue to follow closely. Monitor renal function. Prognosis guarded at this time.. Time with Patient: Greater than 30
--- NOTE | 2020-08-31 00:55 | P.PN ---
Subjective Progress Note Date: 08/29/20 Principal diagnosis: Acute hypoxic respiratory failure Covid and pneumonia Patient is a 64-year-old male with a known history of atrial fibrillation on anticoagulation with Eliquis, history of pacemaker placement due to SSS, chronic CHF with systolic dysfunction ejection fraction 35%, COPD on home oxygen 5 L via nasal cannula, hypertension, diabetes type 2 [id number], obstructive sleep apnea, previous history of alcohol abuse/DTs, BPH, CKD stage III, bilateral lower extremity peripheral neuropathy and previous history of smoking other multiple medical problems presents to ER with complaints of worsening shortness of breath for the past 2 to 3 days. Patient was presents to ER due to respiratory distress by EMS. Patient was placed on 9% nonrebreather and was saturating at 80%. Patient was started on BiPAP while in the ER. Otherwise patient has been afebrile. No complaints of nausea vomiting or abdominal pain or diarrhea. Laboratory data showed blood pressure 107/95 respiration 26 pulse is 120 and 100% nonrebreather on admission. Laboratory data showed WBC 4.9 hemoglobin 11.5 platelets 102 chloride 84 sodium 134 bicarb 44 BUN 16 creatinine 1.73 and Troponin 0 0.056, CRP 178 and coronavirus PCR detected. Chest x-ray showed correlate for pneumonia. Edema not excluded. Follow-up suggested. Patient was recently discharged admitted to the hospital from 08/02/2020 to 08/10/2020 08/21/2020 Patient is currently on BiPAP with FiO2 50%. Saturating at 88 to 90%. Awake alert oriented x3. Able to communicate. Patient has been afebrile. No complaints of chest pain. Patient is complaining of bilateral lower extremity pain and requesting pain medications. No diarrhea or dysuria. No nausea or vomiting. Chest x-ray showed multifocal pneumonia is stable. Due to elevated procalcitonin level 0.46 and recent sputum cultures growing Pseudomonas. Patient was be started on cefepime. Pulmonary is on board. Laboratory data showed WBC 1.5 hemoglobin 9.3 platelets 86 lymphocytes 0.4 D-dimer is 0.43 Sodium 134 potassium 4.1 chloride 87 bicarb is 39 BUN 56 and creatinine 1.6 Patient is being continued on IV Solu-Medrol, Eliquis and multivitamins. 08/22/2020 Patient is currently on 15 L 100% nonrebreather. BiPAP has been discontinued. Patient states that he feels better. No complaints of chest pain or worsening shortness breath. Patient is being continued antibiotics in the form of cefepime due to recent sputum cultures positive for Pseudomonas. Blood cultures have been negative so far. No complaints of chest pain. Patient does have cough without sputum production. No nausea vomiting or abdominal pain or diarrhea. Pulmonary is on board. 08/23/2020 Patient is currently sitting on the side of the bed. On percent nonrebreather which is being transitioned to 8 L oxygen via nasal cannula. Arrest patient went into atrial fibrillation with rapid regular rate overnight. Cardiology was consulted. Was started on Cardizem drip which is transitioned to Toprol-XL. Continue with Eliquis. No complaints of chest pain or shortness of breath no nausea vomiting abdominal pain or diarrhea. Laboratory showed WBC 3.5 hemoglobin 9.5 platelets 87 bicarb is 42 potassium 3.3 BUN 57 and creatinine 1.52 and blood sugar is 125. Patient is being continued IV Solu-Medrol, antibiotics, cefepime and Lasix 60 mg twice daily and insulin regimen. 08/24/2020 Patient is currently sitting on side of the bed. Still tachycardic and tachypneic. Requiring oxygen at 12 L via nasal cannula and saturating at 88%. Patient was started amiodarone drip as per cardiology. Currently on metoprolol 50 mg at bedtime and Lasix 60 mg twice daily. Cardiology and pulmonary is on board. Laboratory data showed WBC 7.1 hemoglobin 10.1 platelets 104 D-dimer 0.98 Sodium 136 potassium 4.3 BUN 58 and creatinine 1.4 bicarb is 40, LDH 710 and CRP 4.3 Chest x-ray showed pneumonia may have worsened in the interval. 08/25/2020 Patient is currently in the medical floor requiring BiPAP. No complaints of chest pain or worsening shortness of breath. Patient became lethargic and altered yesterday. ABGs were not done. Laboratory data showed WBC 6.6 hemoglobin 9.9 and platelets 102 Sodium 134 potassium 3.8 chloride 90 bicarb 36 BUN 71 creatinine 1.72. Lasix dose increased to 80 mg IV every 12. Heart rate is controlled. Currently on amiodarone 400 mg twice daily. Continue with insulin regimen and blood sugar is controlled. Patient has been afebrile. Pulmonary and cardiology is on board. 08/26/2020 Patient is currently sitting in the bed comfortably. Currently 15 L oxygen via nasal cannula. Patient is also using BiPAP as needed. Heart rate is better controlled. Currently on metoprolol and amiodarone. Patient is being continued on IV Lasix 80 mg every 12. Patient has been afebrile. No nausea vomiting or abdominal pain or diarrhea. Tolerating oral diet. Laboratory showed sodium 135 potassium 3.6 BUN 79 and creatinine 1.75 and blood sugar is 338 today. Patient is also on methylprednisolone 40 mg IV every 8. Continue with the Levemir 40 units daily and insulin sliding scale. Patient is also midodrine 10 mg 3 times daily. Blood pressures stable. 08/27/2020 Patient is currently sitting on the side of the bed. Shortness of breath is improving. Otherwise patient is still on oxygen at 15 L via nasal cannula. Trending down to 10 L high flow. Otherwise awake alert oriented 3. Continued on antibiotics in the form of ceftriaxone. Continued on diuretics. Laboratory data showed BUN 17 and creatinine 1.75 and blood sugar is elevated. Preprandial insulin dose will be added. Continue with Levemir. Neck lump patient has been afebrile. Denied any headache or dizziness or lightheadedness. No chest pain. 08/28/2020 Patient is currently sitting on the side of the bed. On BiPAP now. No complaints of chest pain or shortness of breath. No complaints of nausea vomiting or abdominal pain. Tolerating oral diet. No constipation. Laboratory data showed hemoglobin 10.1, WBC 6.3, platelets 146, sodium 137 potassium 3.3 chloride 93 BUN 89 and creatinine 1.89. Heart rate is better controlled. Cardiology and pulmonary is on board. 08/29/2020 Patient is awake alert oriented x3. Currently on 15 L oxygen high flow via nasal cannula. Sitting on the side of the bed comfortably. No complaints of chest pain. Heart rate is controlled. Patient is being continued on IV Lasix 80 mg twice daily. Also on IV steroids 40 mg every 8 and anticoagulation in the form of Eliquis. Pulmonary and cardiology is on board. Laboratory showed WBC 5.2 hemoglobin 9.4 and platelets 153 Potassium 3.4 BUN 86 and creatinine 1.8 blood sugar is elevated and continued on insulin sliding scale Current medications reviewed. Objective - Vital Signs Vital signs: Vital Signs Temp 97.4 F L 08/29/20 15:25 Pulse 80 08/29/20 15:25 Resp 20 08/29/20 15:25 BP 110/71 08/29/20 15:25 Pulse Ox 90 L 08/29/20 15:25 Intake & Output 08/29/20 08/29/20 08/30/20 06:59 18:59 06:59 Intake Total 340 601 Output Total 800 450 Balance -460 151 Weight 129.5 kg Intake: Oral 340 601 Output: Urine 800 450 Other: Voiding Method Urinal Urinal # Voids 1 # Bowel Movements 1 - Exam PHYSICAL EXAMINATION: Patient is lying in the bed no distress, awake alert and oriented.. HEENT: Normocephalic. Neck is supple. Pupils reactive. Nostrils clear. Oral cav ity is moist. Ears reveal no drainage. Neck reveals no JVD, carotid bruits, or thyromegaly. CHEST EXAMINATION: Trachea is central. Symmetrical expansion.Bibasilar diminished air entry and no wheeze . CARDIAC: Normal S1, S2 with no gallops. No murmurs ABDOMEN: Soft. Bowel sounds normal. No organomegaly. No abdominal bruits. Extremities: 2+ edema. leg wounds /sores . No clubbing or cyanosis Neurologically awake, alert, oriented x3 with well-coordinated movements. No focal deficits noted Skin: No rash or skin lesions. Psychiatric: Coperative. Nonsuicidal Musculoskeletal: No joint swelling or deformity. Normal range of motion. - Labs CBC & Chem 7: 08/29/20 08:19 08/30/20 07:59 Labs: Abnormal Lab Results - Last 24 Hours (Table) 08/29/20 08/29/20 08/29/20 Range/Units 02:07 07:04 08:19 RBC (4.30-5.90) m/uL Hgb (13.0-17.5) gm/dL Hct (39.0-53.0) % Lymphocytes # (1.0-4.8) k/uL Potassium 3.4 L (3.5-5.1) mmol/L Chloride 91 L (98-107) mmol/L Carbon Dioxide 37 H (22-30) mmol/L BUN 86 H (9-20) mg/dL Creatinine 1.80 H (0.66-1.25) mg/dL Glucose 319 H (74-99) mg/dL POC Glucose (mg/dL) 368 H 396 H (75-99) mg/dL Calcium 8.2 L (8.4-10.2) mg/dL 08/29/20 08/29/20 08/29/20 Range/Units 08:19 12:02 17:22 RBC 3.18 L (4.30-5.90) m/uL Hgb 9.4 L (13.0-17.5) gm/dL Hct 30.1 L (39.0-53.0) % Lymphocytes # 0.3 L (1.0-4.8) k/uL Potassium (3.5-5.1) mmol/L Chloride (98-107) mmol/L Carbon Dioxide (22-30) mmol/L BUN (9-20) mg/dL Creatinine (0.66-1.25) mg/dL Glucose (74-99) mg/dL POC Glucose (mg/dL) 334 H 237 H (75-99) mg/dL Calcium (8.4-10.2) mg/dL 08/29/20 Range/Units 19:51 RBC (4.30-5.90) m/uL Hgb (13.0-17.5) gm/dL Hct (39.0-53.0) % Lymphocytes # (1.0-4.8) k/uL Potassium (3.5-5.1) mmol/L Chloride (98-107) mmol/L Carbon Dioxide (22-30) mmol/L BUN (9-20) mg/dL Creatinine (0.66-1.25) mg/dL Glucose (74-99) mg/dL POC Glucose (mg/dL) 188 H (75-99) mg/dL Calcium (8.4-10.2) mg/dL Assessment and Plan Assessment: Acute COVID-19 pneumonia Acute on chronic hypoxic and hypercapnic respiratory failure due to Covid pneumonia with underlying COPD Paroxysmal atrial fibrillation with rapid regular rate Possible bacterial pneumonia with recent sputum cultures growing Pseudomonas. Chronic hypoxic respiratory failure secondary to COPD on 5 L. On prednisone 20 mg daily oxygen via nasal cannula at home. Acute on Chronic CHF with systolic dysfunction ejection fraction 35% Nonischemic cardiomyopathy acute on chronic kidney disease stage III with baseline creatinine 1.1. 1.71 on admission Bilateral lower extremity swelling history of alcohol abuse and DTs Diabetes type 2 insulin-dependent Hypertension Hyperlipidemia Obstructive sleep apnea not on CPAP at home Hx of PAF on anticoagulation with Eliquis. Considering ablation as an outpatient. Status post pacemaker placement. Patient history of smoking DVT prophylaxis patient is already on Eliquis. Plan: Patient is currently on BiPAP. Was given IV Solu-Medrol 125 mg x 1. Patient will be continued on 60mg Q6 and multivitamins and Eliquis. Started on cefepime 2 g every 12. Amiodarone changed to by mouth 400 mg twice daily. Continue with metoprolol. IV lasix 80mg BID Follow-up inflammatory markers. Patient may be a candidate for remdesivir course. Continue with midodrine and Lasix dose as blood pressure tolerated. c/w tele Pulmonary and Cardiology is on board.. Continue to follow closely. Monitor renal function. Prognosis guarded at this time.. Time with Patient: Greater than 30
--- NOTE | 2020-08-31 01:01 | P.PN ---
Subjective Progress Note Date: 08/30/20 Principal diagnosis: Acute hypoxic respiratory failure Covid and pneumonia Patient is a 64-year-old male with a known history of atrial fibrillation on anticoagulation with Eliquis, history of pacemaker placement due to SSS, chronic CHF with systolic dysfunction ejection fraction 35%, COPD on home oxygen 5 L via nasal cannula, hypertension, diabetes type 2 [id number], obstructive sleep apnea, previous history of alcohol abuse/DTs, BPH, CKD stage III, bilateral lower extremity peripheral neuropathy and previous history of smoking other multiple medical problems presents to ER with complaints of worsening shortness of breath for the past 2 to 3 days. Patient was presents to ER due to respiratory distress by EMS. Patient was placed on 9% nonrebreather and was saturating at 80%. Patient was started on BiPAP while in the ER. Otherwise patient has been afebrile. No complaints of nausea vomiting or abdominal pain or diarrhea. Laboratory data showed blood pressure 107/95 respiration 26 pulse is 120 and 100% nonrebreather on admission. Laboratory data showed WBC 4.9 hemoglobin 11.5 platelets 102 chloride 84 sodium 134 bicarb 44 BUN 16 creatinine 1.73 and Troponin 0 0.056, CRP 178 and coronavirus PCR detected. Chest x-ray showed correlate for pneumonia. Edema not excluded. Follow-up suggested. Patient was recently discharged admitted to the hospital from 08/02/2020 to 08/10/2020 08/21/2020 Patient is currently on BiPAP with FiO2 50%. Saturating at 88 to 90%. Awake alert oriented x3. Able to communicate. Patient has been afebrile. No complaints of chest pain. Patient is complaining of bilateral lower extremity pain and requesting pain medications. No diarrhea or dysuria. No nausea or vomiting. Chest x-ray showed multifocal pneumonia is stable. Due to elevated procalcitonin level 0.46 and recent sputum cultures growing Pseudomonas. Patient was be started on cefepime. Pulmonary is on board. Laboratory data showed WBC 1.5 hemoglobin 9.3 platelets 86 lymphocytes 0.4 D-dimer is 0.43 Sodium 134 potassium 4.1 chloride 87 bicarb is 39 BUN 56 and creatinine 1.6 Patient is being continued on IV Solu-Medrol, Eliquis and multivitamins. 08/22/2020 Patient is currently on 15 L 100% nonrebreather. BiPAP has been discontinued. Patient states that he feels better. No complaints of chest pain or worsening shortness breath. Patient is being continued antibiotics in the form of cefepime due to recent sputum cultures positive for Pseudomonas. Blood cultures have been negative so far. No complaints of chest pain. Patient does have cough without sputum production. No nausea vomiting or abdominal pain or diarrhea. Pulmonary is on board. 08/23/2020 Patient is currently sitting on the side of the bed. On percent nonrebreather which is being transitioned to 8 L oxygen via nasal cannula. Arrest patient went into atrial fibrillation with rapid regular rate overnight. Cardiology was consulted. Was started on Cardizem drip which is transitioned to Toprol-XL. Continue with Eliquis. No complaints of chest pain or shortness of breath no nausea vomiting abdominal pain or diarrhea. Laboratory showed WBC 3.5 hemoglobin 9.5 platelets 87 bicarb is 42 potassium 3.3 BUN 57 and creatinine 1.52 and blood sugar is 125. Patient is being continued IV Solu-Medrol, antibiotics, cefepime and Lasix 60 mg twice daily and insulin regimen. 08/24/2020 Patient is currently sitting on side of the bed. Still tachycardic and tachypneic. Requiring oxygen at 12 L via nasal cannula and saturating at 88%. Patient was started amiodarone drip as per cardiology. Currently on metoprolol 50 mg at bedtime and Lasix 60 mg twice daily. Cardiology and pulmonary is on board. Laboratory data showed WBC 7.1 hemoglobin 10.1 platelets 104 D-dimer 0.98 Sodium 136 potassium 4.3 BUN 58 and creatinine 1.4 bicarb is 40, LDH 710 and CRP 4.3 Chest x-ray showed pneumonia may have worsened in the interval. 08/25/2020 Patient is currently in the medical floor requiring BiPAP. No complaints of chest pain or worsening shortness of breath. Patient became lethargic and altered yesterday. ABGs were not done. Laboratory data showed WBC 6.6 hemoglobin 9.9 and platelets 102 Sodium 134 potassium 3.8 chloride 90 bicarb 36 BUN 71 creatinine 1.72. Lasix dose increased to 80 mg IV every 12. Heart rate is controlled. Currently on amiodarone 400 mg twice daily. Continue with insulin regimen and blood sugar is controlled. Patient has been afebrile. Pulmonary and cardiology is on board. 08/26/2020 Patient is currently sitting in the bed comfortably. Currently 15 L oxygen via nasal cannula. Patient is also using BiPAP as needed. Heart rate is better controlled. Currently on metoprolol and amiodarone. Patient is being continued on IV Lasix 80 mg every 12. Patient has been afebrile. No nausea vomiting or abdominal pain or diarrhea. Tolerating oral diet. Laboratory showed sodium 135 potassium 3.6 BUN 79 and creatinine 1.75 and blood sugar is 338 today. Patient is also on methylprednisolone 40 mg IV every 8. Continue with the Levemir 40 units daily and insulin sliding scale. Patient is also midodrine 10 mg 3 times daily. Blood pressures stable. 08/27/2020 Patient is currently sitting on the side of the bed. Shortness of breath is improving. Otherwise patient is still on oxygen at 15 L via nasal cannula. Trending down to 10 L high flow. Otherwise awake alert oriented 3. Continued on antibiotics in the form of ceftriaxone. Continued on diuretics. Laboratory data showed BUN 17 and creatinine 1.75 and blood sugar is elevated. Preprandial insulin dose will be added. Continue with Levemir. Neck lump patient has been afebrile. Denied any headache or dizziness or lightheadedness. No chest pain. 08/28/2020 Patient is currently sitting on the side of the bed. On BiPAP now. No complaints of chest pain or shortness of breath. No complaints of nausea vomiting or abdominal pain. Tolerating oral diet. No constipation. Laboratory data showed hemoglobin 10.1, WBC 6.3, platelets 146, sodium 137 potassium 3.3 chloride 93 BUN 89 and creatinine 1.89. Heart rate is better controlled. Cardiology and pulmonary is on board. 08/29/2020 Patient is awake alert oriented x3. Currently on 15 L oxygen high flow via nasal cannula. Sitting on the side of the bed comfortably. No complaints of chest pain. Heart rate is controlled. Patient is being continued on IV Lasix 80 mg twice daily. Also on IV steroids 40 mg every 8 and anticoagulation in the form of Eliquis. Pulmonary and cardiology is on board. Laboratory showed WBC 5.2 hemoglobin 9.4 and platelets 153 Potassium 3.4 BUN 86 and creatinine 1.8 blood sugar is elevated and continued on insulin sliding scale. 08/30/2020 Patient was admitted to the hospital due to acute on chronic hypoxic respiratory failure due to Covid pneumonia, nonischemic cardiomyopathy. Also being treated for paroxysmal atrial fibrillation.. Currently sitting on side of the bed comfortably. On oxygen via nasal cannula at 7 L. Patient is being continued on on IV Lasix 80 mg twice daily, IV steroids and antibiotics in the form of cefepime. Denies any complaints of chest pain. Patient has been afebrile. No nausea vomiting abdominal pain or diarrhea. Blood sugar is elevated this morning at 312. Continue with insulin sliding scale and increase preprandial insulin. Laboratory data showed sodium 135 potassium 4.2 BUN 89 and creatinine 1.69. Cardiology and pulmonary is on board. Current medications reviewed. Objective - Vital Signs Vital signs: Vital Signs Temp 97.8 F 08/30/20 20:00 Pulse 62 08/30/20 20:00 Resp 20 08/30/20 20:00 BP 116/73 08/30/20 20:00 Pulse Ox 96 08/30/20 20:00 Intake & Output 08/30/20 08/30/20 08/31/20 06:59 18:59 06:59 Intake Total 100 425 75 Output Total 1050 875 Balance -950 425 -800 Weight 112.5 kg Intake: Oral 100 425 75 Output: Urine 1050 875 Other: Voiding Method Urinal Urinal Urinal # Voids 2 1 # Bowel Movements 2 - Exam PHYSICAL EXAMINATION: Patient is lying in the bed no distress, awake alert and oriented.. HEENT: Normocephalic. Neck is supple. Pupils reactive. Nostrils clear. Oral cavity is moist. Ears reveal no drainage. Neck reveals no JVD, carotid bruits, or thyromegaly. CHEST EXAMINATION: Trachea is central. Symmetrical expansion.Bibasilar diminished air entry and no wheeze . CARDIAC: Normal S1, S2 with no gallops. No murmurs ABDOMEN: Soft. Bowel sounds normal. No organomegaly. No abdominal bruits. Extremities: 2+ edema. leg wounds /sores . No clubbing or cyanosis Neurologically awake, alert, oriented x3 with well-coordinated movements. No focal deficits noted Skin: No rash or skin lesions. Psychiatric: Coperative. Nonsuicidal Musculoskeletal: No joint swelling or deformity. Normal range of motion. - Labs CBC & Chem 7: 08/29/20 08:19 08/30/20 07:59 Labs: Abnormal Lab Results - Last 24 Hours (Table) 08/30/20 08/30/20 08/30/20 Range/Units 07:04 07:59 11:46 Sodium 135 L (137-145) mmol/L Chloride 91 L (98-107) mmol/L Carbon Dioxide 40 H (22-30) mmol/L BUN 89 H (9-20) mg/dL Creatinine 1.69 H (0.66-1.25) mg/dL Glucose 292 H (74-99) mg/dL POC Glucose (mg/dL) 312 H 338 H (75-99) mg/dL Calcium 8.3 L (8.4-10.2) mg/dL 08/30/20 08/30/20 Range/Units 16:48 20:07 Sodium (137-145) mmol/L Chloride (98-107) mmol/L Carbon Dioxide (22-30) mmol/L BUN (9-20) mg/dL Creatinine (0.66-1.25) mg/dL Glucose (74-99) mg/dL POC Glucose (mg/dL) 240 H 129 H (75-99) mg/dL Calcium (8.4-10.2) mg/dL Assessment and Plan Assessment: Acute COVID-19 pneumonia Acute on chronic hypoxic and hypercapnic respiratory failure due to Covid pneumonia with underlying COPD Paroxysmal atrial fibrillation with rapid regular rate Possible bacterial pneumonia with recent sputum cultures growing Pseudomonas. Chronic hypoxic respiratory failure secondary to COPD on 5 L. On prednisone 20 mg daily oxygen via nasal cannula at home. Acute on Chronic CHF with systolic dysfunction ejection fraction 35% Nonischemic cardiomyopathy acute on chronic kidney disease stage III with baseline creatinine 1.1. 1.71 on admission Bilateral lower extremity swelling history of alcohol abuse and DTs Diabetes type 2 insulin-dependent Hypertension Hyperlipidemia Obstructive sleep apnea not on CPAP at home Hx of PAF on anticoagulation with Eliquis. Considering ablation as an outpatient. Status post pacemaker placement. Patient history of smoking DVT prophylaxis patient is already on Eliquis. Plan: Patient is currently on BiPAP.High flow oxygen at 7 L via nasal cannula. Was given IV Solu-Medrol 125 mg x 1. Patient will be continued on 60mg Q6 and multivitamins and Eliquis. Started on cefepime 2 g every 12. Amiodarone changed to by mouth 400 mg twice daily. Continue with metoprolol. IV lasix 80mg BID Follow-up inflammatory markers. Patient may be a candidate for remdesivir course. Continue with midodrine and Lasix dose as blood pressure tolerated. c/w tele Pulmonary and Cardiology is on board.. Continue to follow closely. Monitor renal function. Prognosis guarded at this time.. Time with Patient: Greater than 30
[2020-08-31] MEDS: MIDODRINE 5 MG TAB PO SCH ×2 (07:08→12:32)
[2020-08-31] MEDS: LEVOTHYROXINE 25 MCG TAB PO SCH (07:08)
[2020-08-31] MEDS: PANTOPRAZOLE 40 MG TABLET PO SCH (07:08)
[2020-08-31 07:10] LABS: Glucose,Whole Blood 314 mg/dL (75-99)
[2020-08-31] MEDS: INSULIN DETEMIR (LEVEMIR) 100 UNIT/ML SYR SQ SCH (07:48)
[2020-08-31] MEDS: INSULIN ASPART (NovoLOG) 100 UNIT/ML VIAL SQ SCH ×4 (07:49→12:32)
[2020-08-31] MEDS: TIOTROPIUM 2.5 MCG INHALER INHALATION SCH (09:08)
[2020-08-31] MEDS: ALBUTEROL HFA INHALER INHALATION SCH ×4 (09:08→18:58)
--- NOTE | 2020-08-31 09:12 | XR ---
EXAMINATION TYPE: XR chest 1V DATE OF EXAM: 08/31/2020 COMPARISON: Chest x-ray 08/27/2020 HISTORY: Congestive heart failure TECHNIQUE: Single frontal view of the chest is obtained. FINDINGS: Prominence of interstitium, blunting the right costophrenic angle, bibasilar patchy densit y, bilateral airspace disease is again noted. There is no evident pneumothorax. Cardiac mediastinal s ilhouette is stable, heart is enlarged. Pacemaker generator is present in left pectoral region, there are leads in right atrium and ventricle. IMPRESSION: Findings could be indicative of congestive heart failure, correlate to exclude pneumonia , there may be minimal pleural effusion
[2020-08-31] MEDS: AMIODARONE 200 MG TAB PO SCH (10:17)
[2020-08-31] MEDS: METOPROLOL SUCCINATE (ER) 100 MG TAB.ER.24H PO SCH (10:17)
[2020-08-31] MEDS: FAMOTIDINE 20 MG TAB PO SCH (10:17)
[2020-08-31] MEDS: FUROSEMIDE 10 MG/ML 10 ML VIAL IV SCH (10:17)
[2020-08-31] MEDS: CHOLECALCIFEROL 25 MCG (1000 IU) TABLET PO SCH (10:18)
[2020-08-31] MEDS: TAMSULOSIN 0.4 MG CAP.ER.24H PO SCH (10:18)
[2020-08-31] MEDS: methylPREDNISolone SOD SUCCI 40 MG/ML 1 ML VIAL IV SCH (10:18)
[2020-08-31] MEDS: APIXABAN 2.5 MG TABLET PO SCH (10:18)
[2020-08-31] MEDS: guaiFENesin 600 MG TABLET.ER PO SCH (10:18)
[2020-08-31] MEDS: HYDROcodone/APAP 10-325MG 1 EACH TAB PO PRN (10:18)
[2020-08-31] MEDS: ZINC SULFATE 220 MG CAP PO SCH (10:18)
[2020-08-31] MEDS: ASCORBIC ACID 500 MG TAB PO SCH (10:19)
[2020-08-31 10:45] LABS: Basophils % (A) 0 %; Eosinophils % (A) 1 %; HCT 29.4 % (39.0-53.0); HGB 9.3 gm/dL (13.0-17.5); Hypochromasia Moderate; Lymphocytes # (A) 0.4 k/uL (1.0-4.8); Lymphocytes % (A) 6 %; MCHC 31.7 g/dL (31.0-37.0); MCV 94.7 fL (80.0-100.0); Mean Platelet Volume 8.6; Monocytes # (A) 0.3 k/uL (0-1.0); Monocytes % (A) 5 %; Neutrophils # (A) 5.6 k/uL (1.3-7.7); Neutrophils % (A) 88 %; Platelet Count 172 k/uL (150-450); RBC 3.11 m/uL (4.30-5.90); RDW 14.4 % (11.5-15.5); WBC 6.4 k/uL (3.8-10.6)
[2020-08-31 11:02] LABS: Calcium 8.3 mg/dL (8.4-10.2); Potassium 3.6 mmol/L (3.5-5.1)
[2020-08-31 11:39] VITALS: RESP 18; TEMP 97.5
[2020-08-31 11:56] LABS: Glucose,Whole Blood 398 mg/dL (75-99)
[2020-08-31 12:39] VITALS: BP 100/65; PULSE 71
--- NOTE | 2020-08-31 17:16 | P.PN ---
Subjective Progress Note Date: 08/31/20 Principal diagnosis: Respiratory failure. Patient was reevaluated today on 08/27/2020, remains on high flow nasal cannula, 15 L/m, at times he went down to 10 L high flow cannula, patient is sitting in a bedside chair, seems to be comfortable, not in distress. O2 sats is 95%. He is hemodynamically stable. Not in any distress. Electrolytes are normal. BUN is 79 creatinine is 1.75. Blood sugars are ranging between 200 up to 338. Last BNP level was 32 900. Patient remains on diuretics. Patient was reevaluated today on 08/28/2020, presently on BiPAP, 40% FiO2, O2 saturations in the 90s. Patient seems to be much more comfortable today on BiPAP. He was on 10 L nasal cannula all along. CBC is relatively normal hemoglobin is 10.1. Electrodes are normal renal profile showed a BUN of 89 and creatinine 1.80. Patient has COVID-19 pneumonia paroxysmal atrial fibrillation chronic cellulitis and nonischemic cardiomyopathy with LV dysfunction. Remains on Toprol, amiodarone, Lasix, he is steadily but slowly improving. Reevaluated today on 08/29/2020, patient is now on 15 L high flow cannula, O2 sats is 90%. Patient does not seem to be in any distress, he is feeling better, at times he uses his BiPAP. Blood pressure is 110/70 heart rate of 84, patient is asymptomatic, he is afebrile. CBC is relatively normal electrodes are normal BUN is 86 creatinine is 1.80, remains on diuretics. Patient is known to have history of nonischemic cardiomyopathy and LV dysfunction. Reevaluated today on 08/30/2020, patient is now on 7 L high flow nasal cannula, intermittently on BiPAP, he feels great today compared to how he felt over the last 1 week. No cough no wheezing no shortness of breath, patient has a BiPAP at bedside, but does not seem to be using it. His electrolytes are normal BUN is 89 creatinine is 1.69, improving steadily since admission. Progress note dated 08/31/2020. Currently, the patient is on high flow O2, at 5 L. Yesterday, he was a 7 L. He sitting at the bedside. Looks much better. He does use BiPAP intermittently. He denies any shortness of breath. He denies any cough. He denies fever and chills. No chest pain or chest discomfort. Lab data from today includes a white count 6.4, hemoglobin 9.3, hematocrit 29.4 and platelet count of 172,000. Sodium is 135, potassium 3.6, chloride 87, CO2 39, anion gap 9, BUN 89, and creatinine 1.77. Chest x-ray findings are consistent with probable mild fluid overload. Objective - Vital Signs Vital signs: Vital Signs Temp 97.5 F L 08/31/20 08:00 Pulse 71 08/31/20 14:00 Resp 18 08/31/20 14:00 BP 100/65 08/31/20 12:00 Pulse Ox 94 L 08/31/20 12:00 Intake & Output 08/30/20 08/31/20 08/31/20 18:59 06:59 18:59 Intake Total 425 625 240 Output Total 1974 500 Balance 425 -1350 -260 Weight 124 kg Intake: Oral 425 625 240 Output: Urine 1974 500 Other: Voiding Method Urinal Urinal # Voids 1 # Bowel Movements 2 - Exam No acute distress, oriented 3. Currently on 5 L high flow nasal O2. S aturations are 94%. HEENT examination is grossly unremarkable. Neck supple. Full range of motion. No adenopathy thyromegaly or neck vein distention. Cardiovascular examination reveals regular rhythm rate. S1-S2 normal. No S3 or S4. No discernible murmur noted. Heart rate is 71 bpm. Lungs reveal bibasilar crackles. No rhonchi or wheezes. Breath sounds equal bilaterally. Abdomen soft bowel sounds are heard. No masses or tenderness. Extremities are intact. No cyanosis clubbing or edema. Skin is without rash or lesion. Neurologic examination is brief but nonfocal. - Labs CBC & Chem 7: 08/31/20 09:41 08/31/20 09:41 Labs: Abnormal Lab Results - Last 24 Hours (Table) 08/30/20 08/31/20 08/31/20 Range/Units 20:07 07:08 09:41 RBC 3.11 L (4.30-5.90) m/uL Hgb 9.3 L (13.0-17.5) gm/dL Hct 29.4 L (39.0-53.0) % Lymphocytes # 0.4 L (1.0-4.8) k/uL Sodium (137-145) mmol/L Chloride (98-107) mmol/L Carbon Dioxide (22-30) mmol/L BUN (9-20) mg/dL Creatinine (0.66-1.25) mg/dL Glucose (74-99) mg/dL POC Glucose (mg/dL) 129 H 314 H (75-99) mg/dL Calcium (8.4-10.2) mg/dL 08/31/20 08/31/20 Range/Units 09:41 11:41 RBC (4.30-5.90) m/uL Hgb (13.0-17.5) gm/dL Hct (39.0-53.0) % Lymphocytes # (1.0-4.8) k/uL Sodium 135 L (137-145) mmol/L Chloride 87 L (98-107) mmol/L Carbon Dioxide 39 H (22-30) mmol/L BUN 89 H (9-20) mg/dL Creatinine 1.77 H (0.66-1.25) mg/dL Glucose 389 H (74-99) mg/dL POC Glucose (mg/dL) 398 H (75-99) mg/dL Calcium 8.3 L (8.4-10.2) mg/dL Assessment and Plan Assessment: Acute on chronic hypoxemic respiratory failure, multifactorial, secondary to 2 acute Covid 19 pneumonia, severe COPD with COPD exacerbation, and possible community-acquired pneumonia. There also may be a component of systolic CHF. Severe stage IV COPD, with an FEV1 that is 22% of predicted. Chronic hypoxemic respiratory failure. Acute cellulitis of the lower extremities. Acute on chronic systolic CHF, with an ejection fraction of 30%. History of diverticular disease/diverticulosis. Acute kidney injury. History of pacemaker implantation. History of obstructive sleep apnea syndrome. History of left-sided pneumothorax, status post chest tube insertion. History of chronic alcohol abuse. Plan: Plan dated 08/31/2020. The patient has been titrated down to 5 L nasal cannula, just when he is usually on at home. We'll continue bronchodilators, amiodarone, Eliquis, Solu-Medrol, and Protonix. Additional recommendations and suggestions are forthcoming. We'll continue with the appropriate vitamins. Discharge planning should be underway if not or ready begun. We'll continue to follow make recommendations were necessary. Prognosis is guarded given the severity of his chronic obstructive pulmonary disease, and his cardiomyopathy. Time with Patient: Less than 30
[2020-08-31 17:17] LABS: Glucose,Whole Blood 222 mg/dL (75-99)
--- NOTE | 2020-08-31 18:32 | P.PN ---
Subjective Progress Note Date: 08/31/20 This is a 63-year-old gentleman with a history of paroxysmal atrial fibrillation, sick sinus syndrome status post permanent pacemaker implantation, nonischemic cardiomyopathy and chronic systolic heart failure was admitted to the hospital with COVID pneumonia, atrial fibrillation with rapid ventricular re sponse and also CHF, systolic. Patient was started on IV amiodarone and then switch her to by mouth amiodarone. 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 Overall his clinical status improved. He is currently on 5 L of oxygen. A chest x-ray shows improvement with mild CHF. He is started on by mouth diuretics. Outcomes Manager felt that patient could be discharged home soon. Most of the information is gathered from the chart. Patient was not physically examined Objective - Vital Signs Vital signs: Vital Signs Temp 97.5 F L 08/31/20 08:00 Pulse 71 08/31/20 14:00 Resp 18 08/31/20 14:00 BP 100/65 08/31/20 12:00 Pulse Ox 94 L 08/31/20 12:00 Intake & Output 08/30/20 08/31/20 08/31/20 18:59 06:59 18:59 Intake Total 425 625 240 Output Total 1975 500 Balance 425 -1350 -260 Weight 124 kg Intake: Oral 425 625 240 Output: Urine 1975 500 Other: Voiding Method Urinal Urinal # Voids 1 # Bowel Movements 2 - Exam Patient was not physically examined. Information is gathered from the chart and also consultation notes. - Labs CBC & Chem 7: 08/31/20 09:41 08/31/20 09:41 Labs: Abnormal Lab Results - Last 24 Hours (Table) 08/30/20 08/31/20 08/31/20 Range/Units 20:07 07:08 09:41 RBC 3.11 L (4.30-5.90) m/uL Hgb 9.3 L (13.0-17.5) gm/dL Hct 29.4 L (39.0-53.0) % Lymphocytes # 0.4 L (1.0-4.8) k/uL Sodium (137-145) mmol/L Chloride (98-107) mmol/L Carbon Dioxide (22-30) mmol/L BUN (9-20) mg/dL Creatinine (0.66-1.25) mg/dL Glucose (74-99) mg/dL POC Glucose (mg/dL) 129 H 314 H (75-99) mg/dL Calcium (8.4-10.2) mg/dL 08/31/20 08/31/20 08/31/20 Range/Units 09:41 11:41 17:10 RBC (4.30-5.90) m/uL Hgb (13.0-17.5) gm/dL Hct (39.0-53.0) % Lymphocytes # (1.0-4.8) k/uL Sodium 135 L (137-145) mmol/L Chloride 87 L (98-107) mmol/L Carbon Dioxide 39 H (22-30) mmol/L BUN 89 H (9-20) mg/dL Creatinine 1.77 H (0.66-1.25) mg/dL Glucose 389 H (74-99) mg/dL POC Glucose (mg/dL) 398 H 222 H (75-99) mg/dL Calcium 8.3 L (8.4-10.2) mg/dL Assessment and Plan (1) Atrial fibrillation with RVR Current Visit: Yes Status: Acute Code(s): I48.91 - UNSPECIFIED ATRIAL FIBRILLATION SNOMED Code(s): 776267922485156 (2) Acute respiratory failure Current Visit: Yes Status: Acute Code(s): J96.00 - ACUTE RESPIRATORY FAILURE, UNSP W HYPOXIA OR HYPERCAPNIA SNOMED Code(s): 14317089 (3) Pneumonia due to COVID-19 virus Current Visit: Yes Status: Acute Code(s): U07.1 - COVID-19; J12.82 - Pneumonia due to coronavirus disease 2019 SNOMED Code(s): 734297360384604185 (4) Renal insufficiency Current Visit: Yes Status: Acute Code(s): N28.9 - DISORDER OF KIDNEY AND URETER, UNSPECIFIED SNOMED Code(s): 841637597 (5) Cardiomyopathy Current Visit: Yes Status: Acute Code(s): I42.9 - CARDIOMYOPATHY, UNSPECIFIED SNOMED Code(s): 01648525 (6) Acute on chronic systolic CHF (congestive heart failure) Current Visit: Yes Status: Acute Code(s): I50.23 - ACUTE ON CHRONIC SYSTOLIC (CONGESTIVE) HEART FAILURE SNOMED Code(s): 673542486 Plan: Overall patient's critical status is improved. Switching to by mouth diuretics. Continue the rest of the treatment, including amiodarone. Possible discharge within next 24-48 hours
--- NOTE | 2020-08-31 22:32 | P.DS ---
Providers Date of admission: 08/20/20 14:52 Attending physician: Madhavi Wyman Consults: 08/20/20 14:53 Consult Physician Urgent Consulting Provider: Tracey Reyes Consult Reason/Comments: Respiratory failure, covid pneumonia Do you want consulting provider notified?: Yes 08/23/20 01:42 Consult Physician Routine Consulting Provider: [facility] Consult Reason/Comments: a fib rvr Do you want consulting provider notified?: Yes, Notify in am Primary care physician: [facility] Hospital Course: Diagnoses Acute COVID-19 pneumonia, improved Acute on chronic hypoxic and hypercapnic respiratory failure due to Covid pneumonia with underlying COPD. Oxygen requirement back to baseline of 5 L/m at home Paroxysmal atrial fibrillation with rapid regular rate Possible bacterial pneumonia with recent sputum cultures growing Pseudomonas. Chronic hypoxic respiratory failure secondary to COPD on 5 L. On prednisone 20 mg daily oxygen via nasal cannula at home. Acute on Chronic CHF with systolic dysfunction ejection fraction 35% Nonischemic cardiomyopathy acute on chronic kidney disease stage III with baseline creatinine 1.1. 1.71 on admission Bilateral lower extremity swelling history of alcohol abuse and DTs Diabetes type 2 insulin-dependent Hypertension Hyperlipidemia Obstructive sleep apnea not on CPAP at home Hx of PAF on anticoagulation with Eliquis. Considering ablation as an outpatient. Status post pacemaker placement. Patient history of smoking Hospital course: Patient is a 64-year-old male with a known history of atrial fibrillation on anticoagulation with Eliquis, history of pacemaker placement due to SSS, chronic CHF with systolic dysfunction ejection fraction 35%, COPD on home oxygen 5 L via nasal cannula, hypertension, diabetes type 2 [id number]-[id number], obstructive sleep apnea, previous history of alcohol abuse/DTs, BPH, CKD stage III, bilateral lower extremity peripheral neuropathy and previous history of smoking other multiple medical problems presents to ER with complaints of worsening shortness of breath for the past 2 to 3 days. Chest x-ray showed multifocal pneumonia. Edema not excluded. Patient was recently discharged admitted to the hospital from 08/02/2020 to 08/10/2020 Patient has been diagnosed with bilateral Covid pneumonia and acute hypoxic respiratory failure. Also with acute systolic CHF with ejection fraction 30% a nd A. fib and RVR with acute COPD exacerbation. Patient has been evaluated by [facility] and [facility] [employer] [facility]. He was treated with Lasix IV 8 mg twice daily, Solu-Medrol 40 mg, amiodarone pills, continue with his home dose of metoprolol. Also he was treated with multiple vitamins. And continue with his Eliquis Patient showed interval improvement and today he is back to his baseline. With minimal or no dyspnea. No chest pain or coughing. No diarrhea. Patient tolerates diet well. Patient was already got to go home today. His oxygen requirement is back to his baseline to 5 L/m and he states that he has his oxygen at home Patient was cleared for discharge by [facility] and [facility] Patient is discharged on oral Lasix 80 mg twice daily per ratoprinter as well as tapered prednisone per [facility]. Patient amiodarone lower to 200 mg twice daily per ratoprinter. Patient has is on insulin at home both long- acting and NovoLog. Physical therapist recommended home health care versus subacute rehab. Patient told me he refused to go to rehab and he already has home care Problems and management plan were discussed with the patient and he verbalized understanding and acceptance Patient was found stable and can be discharged home however he needs follow-up as an outpatient. Patient was instructed to follow up with PCP at the [facility] within one week and patient agrees Patient also was instructed to follow up with his [facility] [employer] [facility] Dr. Reeys 3-4 weeks and his ratoprinter Dr. Landeros in 1 to 2 weeks and he agrees to call and make his own appointment I reviewed all medication with the patient prior to discharge. All his questions were answered Physical exam Gen: patient is a AAOx3, no distress CVS: S1-S2, RRR, no murmur Lungs: B/L CTA, no wheezing Abdomen: soft, no distention, no tenderness, positive bowel sounds Extremity: no leg edema or induration Time spent more than 35 minutes Patient Condition at Discharge: Serious Plan - Discharge Summary Discharge Rx Participant: No New Discharge Prescriptions: New Metoprolol Succinate (ER) [Toprol XL] 50 mg PO HS #30 tab.er.24h Acetaminophen Tab [Tylenol] 650 mg PO Q6HR PRN tab PRN Reason: Mild Pain Or Fever > 100.5 Ascorbic Acid [Vitamin C] 500 mg PO BID #60 tab Cholecalciferol [Vitamin D3 (25 Mcg = 1000 Iu)] 125 mcg PO DAILY #120 tablet predniSONE 10 mg PO DIRECTED #40 tab INSULIN ASPART (NovoLOG) [NovoLOG (formulary)] 0 unit SQ ACHS vial Amiodarone [Cordarone] 200 mg PO BID #60 tab Zinc Sulfate [Orazinc] 220 mg PO DAILY #30 cap Albuterol Inhaler [Ventolin Hfa Inhaler] 2 puff INHALATION RT-Q4H PRN #1 inh PRN Reason: Shortness Of Breath Or Wheezing Furosemide [Lasix] 80 mg PO Q12HR #60 tablet INSULIN ASPART (NovoLOG) [NovoLOG (formulary)] 10 unit SQ AC-TID #1 vial Continue Tamsulosin [Flomax] 0.4 mg PO DAILY HYDROcodone/APAP 10-325MG [[place] 10-325] 1 tab PO Q6H PRN PRN Reason: Pain Ondansetron HCl [Zofran] 4 mg PO BID PRN PRN Reason: Nausea guaiFENesin 400 mg PO BID Apixaban [Eliquis] 2.5 mg PO BID Insulin Aspart [NovoLOG Flexpen] See Protocol SQ AC-TID Tiotropium 18 Mcg/Puff [Spiriva] 2 puff INHALATION RT-DAILY Midodrine [ProAmatine] 10 mg PO AC-TID 30 Days #90 tab Metoprolol Succinate (ER) [Toprol XL] 100 mg PO DAILY 30 Days #30 tab.er.24h Pantoprazole [Protonix] 40 mg PO DAILY #30 tab Insulin Glargine,Hum.rec.anlog [Lantus Solostar] 40 unit SQ DAILY Levothyroxine Sodium [Synthroid] 25 mcg PO DAILY Ipratropium-Albuterol Nebulize [Duoneb 0.5 mg-3 mg/3 ml Soln] 3 ml INHALATION RT-QID #120 ml Ipratropium-Albuterol Nebulize [Duoneb 0.5 mg-3 mg/3 ml Soln] 3 ml INHALATION RT-Q4H PRN ml PRN Reason: Shortness Of Breath Or Wheezing predniSONE 10 mg PO DAILY 30 Days #30 tab Discontinued Cyclobenzaprine [Flexeril] 10 mg PO TID PRN PRN Reason: Muscle Spasm Chlorthalidone [Hygroton] 25 mg PO DAILY Aspirin 81 mg PO DAILY 30 Days #30 chew Furosemide [Lasix] 60 mg PO BID 14 Days #84 tab Discharge Medication List Tamsulosin [Flomax] 0.4 mg PO DAILY 06/23/16 [History] HYDROcodone/APAP 10-325MG [[place] 10-325] 1 tab PO Q6H PRN 09/06/17 [History] Ondansetron HCl [Zofran] 4 mg PO BID PRN 09/30/18 [History] Apixaban [Eliquis] 2.5 mg PO BID 01/11/19 [History] guaiFENesin 400 mg PO BID 01/11/19 [History] Insulin Aspart [NovoLOG Flexpen] See Protocol SQ AC-TID 08/02/20 [History] Insulin Glargine,Hum.rec.anlog [Lantus Solostar] 40 unit SQ DAILY 08/02/20 [History] Levothyroxine Sodium [Synthroid] 25 mcg PO DAILY 08/02/20 [History] Tiotropium 18 Mcg/Puff [Spiriva] 2 puff INHALATION RT-DAILY 08/02/20 [History] Ipratropium-Albuterol Nebulize [Duoneb 0.5 mg-3 mg/3 ml Soln] 3 ml INHALATION RT-Q4H PRN ml 08/10/20 [Rx] Ipratropium-Albuterol Nebulize [Duoneb 0.5 mg-3 mg/3 ml Soln] 3 ml INHALATION RT-QID #120 ml 08/10/20 [Rx] Metoprolol Succinate (ER) [Toprol XL] 100 mg PO DAILY 30 Days #30 tab.er.24h 08/10/20 [Rx] Midodrine [ProAmatine] 10 mg PO AC-TID 30 Days #90 tab 08/10/20 [Rx] predniSONE 10 mg PO DAILY 30 Days #30 tab 08/10/20 [Rx] Acetaminophen Tab [Tylenol] 650 mg PO Q6HR PRN tab 08/31/20 [Rx] Albuterol Inhaler [Ventolin Hfa Inhaler] 2 puff INHALATION RT-Q4H PRN #1 inh 08/31/20 [Rx] Amiodarone [Cordarone] 200 mg PO BID #60 tab 08/31/20 [Rx] Ascorbic Acid [Vitamin C] 500 mg PO BID #60 tab 08/31/20 [Rx] Cholecalciferol [Vitamin D3 (25 Mcg = 1000 Iu)] 125 mcg PO DAILY #120 tablet 08/31/20 [Rx] Furosemide [Lasix] 80 mg PO Q12HR #60 tablet 08/31/20 [Rx] INSULIN ASPART (NovoLOG) [NovoLOG (formulary)] 0 unit SQ ACHS vial 08/31/20 [Rx] INSULIN ASPART (NovoLOG) [NovoLOG (formulary)] 10 unit SQ AC-TID #1 vial 08/31/20 [Rx] Metoprolol Succinate (ER) [Toprol XL] 50 mg PO HS #30 tab.er.24h 08/31/20 [Rx] Pantoprazole [Protonix] 40 mg PO DAILY #30 tab 08/31/20 [Rx] Zinc Sulfate [Orazinc] 220 mg PO DAILY #30 cap 08/31/20 [Rx] predniSONE 10 mg PO DIRECTED #40 tab 08/31/20 [Rx] Follow up Appointment(s)/Referral(s): [facility] [NON-STAFF] - Geovani Landeros MD [STAFF PHYSICIAN] - 2 Weeks ([employer] Please call to make a follow up) Tracey Reyes MD [STAFF PHYSICIAN] - 3 Weeks (Please call to make a follow-up appointment) [facility],Clinic [Primary Care Provider] - 1-2 days Discharge Disposition: HOME SELF-CARE
== END 2020-08-31 19:25 | disposition home health service (06) | DRG 177 ==
LOC: EC 13:36 → 3SCARD 14:52
PROVIDERS: ADMIT Internal Medicine; ATTEND Internal Medicine
PROC: 5A09457 Assistance with Respiratory Ventilation, 24-96 Consecutive Hours, Continuous Positive Airway Pressure (ICD-10-PCS; principal; 2020-08-20)
PROC: 5A0945A Assistance with Respiratory Ventilation, 24-96 Consecutive Hours, High Flow/Velocity Cannula (ICD-10-PCS; 2020-08-22)
DX: U07.1 COVID-19 (principal); J12.82 Pneumonia due to coronavirus disease 2019; J96.21 Acute and chronic respiratory failure with hypoxia; I50.23 Acute on chronic systolic (congestive) heart failure; J96.22 Acute and chronic respiratory failure with hypercapnia; J44.0 Chronic obstructive pulmonary disease with (acute) lower respiratory infection; I13.0 Hypertensive heart and chronic kidney disease with heart failure and stage 1 through stage 4 chronic kidney disease, or unspecified chronic kidney disease; J44.1 Chronic obstructive pulmonary disease with (acute) exacerbation; N17.9 Acute kidney failure, unspecified; I42.8 Other cardiomyopathies; I48.21 Permanent atrial fibrillation; L03.115 Cellulitis of right lower limb; L03.116 Cellulitis of left lower limb; E87.2 Acidosis; R06.03 Acute respiratory distress; Z79.899 Other long term (current) drug therapy; Z79.01 Long term (current) use of anticoagulants; Z79.890 Hormone replacement therapy; Z79.82 Long term (current) use of aspirin; E11.9 Type 2 diabetes mellitus without complications; Z79.4 Long term (current) use of insulin; I48.0 Paroxysmal atrial fibrillation; Z99.81 Dependence on supplemental oxygen; K57.90 Diverticulosis of intestine, part unspecified, without perforation or abscess without bleeding; F41.0 Panic disorder [episodic paroxysmal anxiety]; F32.9 Major depressive disorder, single episode, unspecified; F41.9 Anxiety disorder, unspecified; E11.42 Type 2 diabetes mellitus with diabetic polyneuropathy; E11.22 Type 2 diabetes mellitus with diabetic chronic kidney disease; G47.33 Obstructive sleep apnea (adult) (pediatric); N18.30 Chronic kidney disease, stage 3 unspecified; N40.0 Benign prostatic hyperplasia without lower urinary tract symptoms; Z87.891 Personal history of nicotine dependence; Z95.0 Presence of cardiac pacemaker; I49.5 Sick sinus syndrome; E78.5 Hyperlipidemia, unspecified; K21.9 Gastro-esophageal reflux disease without esophagitis; L98.9 Disorder of the skin and subcutaneous tissue, unspecified; M79.89 Other specified soft tissue disorders; F10.21 Alcohol dependence, in remission; I44.30 Unspecified atrioventricular block; I45.10 Unspecified right bundle-branch block; R00.1 Bradycardia, unspecified; I27.20 Pulmonary hypertension, unspecified; Z79.52 Long term (current) use of systemic steroids; R04.0 Epistaxis
CPT/HCPCS: 36415; 36600; 71045; 80048; 80053; 82728; 82805; 83605; 83615; 83735; 83880; 84145; 84484; 85025; 85379; 85610; 85730; 86140; 87040; 87635; 93005; 94640; 94660; 94760; 96374; 99291

== ENCOUNTER 2021-05-17 06:15 | Inpatient (IN) | payer OTHER, MEDICARE ==
[2021-05-17] MEDS ORDERED: FUROSEMIDE 10 MG/ML 4 ML VIAL IV STA (06:36)
[2021-05-17] MEDS ORDERED: MORPHINE SULFATE 4 MG/ML SYRINGE IVP STA (06:36)
[2021-05-17] MEDS ORDERED: ONDANSETRON 4 MG/2 ML VIAL IVP STA (06:36)
[2021-05-17 06:38] LABS: Basophils # (A) 0.1 k/uL (0-0.2); Basophils % (A) 0 %; Eosinophils # (A) 0.1 k/uL (0-0.7); Eosinophils % (A) 0 %; HCT 26.8 % (39.0-53.0); HGB 8.2 gm/dL (13.0-17.5); Hypochromasia Moderate; Lymphocytes # (A) 0.4 k/uL (1.0-4.8); Lymphocytes % (A) 2 %; MCH 32.1 pg (25.0-35.0); MCHC 30.5 g/dL (31.0-37.0); Macrocytosis Moderate; Monocytes # (A) 0.7 k/uL (0-1.0); Monocytes % (A) 4 %; Neutrophils # (A) 18.3 k/uL (1.3-7.7); Neutrophils % (A) 93 %; Platelet Count 188 k/uL (150-450); RBC 2.55 m/uL (4.30-5.90); RDW 14.8 % (11.5-15.5); WBC 19.7 k/uL (3.8-10.6)
--- NOTE | 2021-05-17 06:40 | ED ---
General Adult HPI - General Chief complaint: Shortness of Breath Stated complaint: Shortness of Breath Time Seen by Provider: 05/17/21 06:16 Source: patient, EMS, RN notes reviewed Mode of arrival: EMS Limitations: no limitations - History of Present Illness Initial comments: 65-year-old male presents emergency department via EMS chief complaint of worse tello shortness of breath. Patient states the last several days he's had increase in shortness of breath. Patient states that he does have some underlying kidney, heart and lung disease. Patient states he wears compression stockings notices that his been having increasing leg swelling, arm swelling. Patient states that he fell several days ago was seen at CT and was splinted for left arm fracture. Patient has not follow-up with orthopedics. Patient does not complain of chest pain this time. Patient went of left arm pain he states that his been coughing more, increasing bruising congestion. Patient had no head injury no loss conscious. - Related Data Home Medications Medication Instructions Recorded Confirmed Tamsulosin [Flomax] 0.4 mg PO DAILY 06/23/16 10/12/20 HYDROcodone/APAP 10-325MG [[place] 1 tab PO Q6H PRN 09/06/17 10/12/20 10-325] Ondansetron HCl [Zofran] 4 mg PO BID PRN 09/30/18 10/12/20 Apixaban [Eliquis] 2.5 mg PO BID 01/11/19 10/12/20 guaiFENesin 400 mg PO BID 01/11/19 10/12/20 Insulin Aspart [NovoLOG Flexpen] See Protocol SQ AC-TID 08/02/20 10/12/20 Insulin Glargine,Hum.rec.anlog 40 unit SQ DAILY 08/02/20 10/12/20 [Lantus Solostar Pen] Levothyroxine Sodium [Synthroid] 25 mcg PO DAILY 08/02/20 10/12/20 Tiotropium 18 Mcg/Puff [Spiriva] 2 puff INHALATION RT-DAILY 08/02/20 10/12/20 Previous Rx's Medication Instructions Recorded Ipratropium-Albuterol Nebulize 3 ml INHALATION RT-Q4H PRN ml 08/10/20 [Duoneb 0.5 mg-3 mg/3 ml Soln] Ipratropium-Albuterol Nebulize 3 ml INHALATION RT-QID #120 ml 08/10/20 [Duoneb 0.5 mg-3 mg/3 ml Soln] Metoprolol Succinate (ER) [Toprol 100 mg PO DAILY 30 Days #30 08/10/20 XL] tab.er.24h Midodrine [ProAmatine] 10 mg PO AC-TID 30 Days #90 tab 08/10/20 predniSONE 10 mg PO DAILY 30 Days #30 tab 08/10/20 Acetaminophen Tab [Tylenol] 650 mg PO Q6HR PRN tab 08/31/20 Albuterol Inhaler [Ventolin Hfa 2 puff INHALATION RT-Q4H PRN #1 inh 08/31/20 Inhaler] Amiodarone [Cordarone] 200 mg PO BID #60 tab 08/31/20 Ascorbic Acid [Vitamin C] 500 mg PO BID #60 tab 08/31/20 Cholecalciferol [Vitamin D3 (25 125 mcg PO DAILY #120 tablet 08/31/20 Mcg = 1000 Iu)] Furosemide [Lasix] 80 mg PO Q12HR #60 tablet 08/31/20 INSULIN ASPART (NovoLOG) [NovoLOG 0 unit SQ ACHS vial 08/31/20 (formulary)] INSULIN ASPART (NovoLOG) [NovoLOG 10 unit SQ AC-TID #1 vial 08/31/20 (formulary)] Metoprolol Succinate (ER) [Toprol 50 mg PO HS #30 tab.er.24h 08/31/20 XL] Pantoprazole [Protonix] 40 mg PO DAILY #30 tab 08/31/20 Zinc Sulfate [Orazinc] 220 mg PO DAILY #30 cap 08/31/20 predniSONE 10 mg PO DIRECTED #40 tab 08/31/20 Allergies Allergy/AdvReac Type Severity Reaction Status Date / Time No Known Allergies Allergy Verified 10/12/20 11:38 Review of Systems ROS Statement: Those systems with pertinent positive or pertinent negative responses have been documented in the HPI. ROS Other: All systems not noted in ROS Statement are negative. Past Medical History Past Medical History: Atrial Fibrillation, Heart Failure, COPD, Diabetes Mellitus, Deep Vein Thrombosis (DVT), GERD/Reflux, Hyperlipidemia, Hypertension, Pneumonia, Renal Disease, Respiratory Disorder, Skin Disorder, Sleep Apnea/CPAP/BIPAP, Vascular Disorder Additional Past Medical History / Comment(s): Pt recently admitted to [facility] on 08/02/20 with chf/acute on chronic renal disease, possible pneumonia. Pt tested covic+ on 08/20/20 at [facility] ER. Other hx: Chronic hypoxic respiratory failure and the patient OXYGEN dependent 5 L, previous history of left-sided pneumothorax requiring a Thoravent insertion, IDDM type II, paroxysmal AFIB, SSS with pacer, nonischemic cardiomyopathy, past alcoholism/DTs, diverticulosis, obstuctive sleep apnea but no Cpap since wt loss, sinusitis, neuropathy bilateral feet, elevated LFTs, BPH, CKD stag III, DVT R leg, hypomagnesemia, hypoalbuminemia, anemia, protein calorie malnutrition, PVD, current sores bilateral feet. History of Any Multi-Drug Resistant Organisms: None Reported Past Surgical History: Appendectomy, Cholecystectomy, Heart Catheterization, Pacemaker Additional Past Surgical History / Comment(s): Partial liver removed d/t adhesions, colonoscopies, bilateral eyes blepharoplasties, pacer Past Anesthesia/Blood Transfusion Reactions: Postoperative Nausea & Vomiting (PONV) Additional Past Anesthesia/Blood Transfusion Reaction / Comment(s): Pt states he has had PONV with gas only. Type of Cardiac Device: Permanent Pacemaker Device Placement Date:: 2017 Past Psychological History: Anxiety, Depression, Panic Disorder Smoking Status: Former smoker Past Alcohol Use History: None Reported Past Drug Use History: None Reported - Past Family History Mother Family Medical History: Thyroid Disorder Additional Family Medical History / Comment(s): . Father Additional Family Medical History / Comment(s): Father of diverticulitis, peritonitis at the age of 35yrs. General Exam Limitations: physical limitation General appearance: alert, in no apparent distress Head exam: Present: atraumatic, normocephalic, normal inspection Eye exam: Present: normal appearance, PERRL, EOMI. Absent: scleral icterus, conjunctival injection, periorbital swelling ENT exam: Present: normal exam, normal oropharynx, mucous membranes moist Neck exam: Present: normal inspection, full ROM. Absent: tenderness, meningismus, lymphadenopathy Respiratory exam: Present: rales. Absent: normal lung sounds bilaterally, respiratory distress, wheezes, rhonchi, stridor Cardiovascular Exam: Present: regular rate, normal rhythm, normal heart sounds. Absent: systolic murmur, diastolic murmur, rubs, gallop, clicks Extremities exam: Present: pedal edema (Severe pitting edema above compression stockings), other (Ecchymosis noted on left hand, swelling, pulse palpable Refill less than 2 seconds patient had splinting on unwrapped, there is mild erythema underneath) Neurological exam: Present: alert, oriented X3 Skin exam: Present: warm, dry, intact, normal color. Absent: rash Course Vital Signs 05/17/21 06:16 Temperature 97.7 F Pulse Rate 86 Respiratory 24 Rate Blood Pressure 117/60 O2 Sat by Pulse 94 L Oximetry EKG Findings - EKG Comments: EKG Findings:: EKG performed at 6:25 normal sinus rhythm right bundle with a rate of 78 WA 128 QRS 1:30 [id number] Medical Decision Making - Medical Decision Making X-ray shows atelectasis versus early pneumonia. Patient does have a 19,000 white count. Patient does have increasing shortness of breath. Patient was given broad-spectrum antibiotics, blood cultures were drawn. Patient does have acute on chronic renal failure with mildly elevated BNP patient does have significant peripheral swelling. Patient will be admitted for trending cardiac enzymes. - Lab Data Result diagrams: 05/17/21 06:30 05/17/21 06:30 Lab Results 05/17/21 05/17/21 05/17/21 Range/Units 06:30 06:30 06:30 WBC 19.7 H (3.8-10.6) k/uL RBC 2.55 L (4.30-5.90) m/uL Hgb 8.2 L (13.0-17.5) gm/dL Hct 26.8 L (39.0-53.0) % MCV 105.0 H (80.0-100.0) fL MCH 32.1 (25.0-35.0) pg MCHC 30.5 L (31.0-37.0) g/dL RDW 14.8 (11.5-15.5) % Plt Count 188 (150-450) k/uL MPV 8.0 Neutrophils % 93 % Lymphocytes % 2 % Monocytes % 4 % Eosinophils % 0 % Basophils % 0 % Neutrophils # 18.3 H (1.3-7.7) k/uL Lymphocytes # 0.4 L (1.0-4.8) k/uL Monocytes # 0.7 (0-1.0) k/uL Eosinophils # 0.1 (0-0.7) k/uL Basophils # 0.1 (0-0.2) k/uL Hypochromasia Moderate Macrocytosis Moderate PT 11.3 (9.0-12.0) sec INR 1.1 (<1.2) APTT 21.7 L (22.0-30.0) sec Sodium 132 L (137-145) mmol/L Potassium 5.4 H (3.5-5.1) mmol/L Chloride 94 L (98-107) mmol/L Carbon Dioxide 23 (22-30) mmol/L Anion Gap 15 mmol/L BUN 74 H (9-20) mg/dL Creatinine 2.36 H (0.66-1.25) mg/dL Est GFR (CKD-EPI)AfAm 32 (>60 ml/min/1.73 sqM) Est GFR (CKD-EPI)NonAf 28 (>60 ml/min/1.73 sqM) Glucose 152 H (74-99) mg/dL Plasma Lactic Acid Stone (0.7-2.0) mmol/L Calcium 8.9 (8.4-10.2) mg/dL Magnesium 1.1 L (1.6-2.3) mg/dL Total Bilirubin 0.9 (0.2-1.3) mg/dL AST 37 (17-59) U/L ALT 31 (4-49) U/L Alkaline Phosphatase 81 (38-126) U/L Troponin I (0.000-0.034) ng/mL NT-Pro-B Natriuret Pep pg/mL Total Protein 5.9 L (6.3-8.2) g/dL Albumin 3.1 L (3.5-5.0) g/dL Coronavirus (PCR) (Not Detectd) 05/17/21 05/17/21 05/17/21 Range/Units 06:30 06:30 06:30 WBC (3.8-10.6) k/uL RBC (4.30-5.90) m/uL Hgb (13.0-17.5) gm/dL Hct (39.0-53.0) % MCV (80.0-100.0) fL MCH (25.0-35.0) pg MCHC (31.0-37.0) g/dL RDW (11.5-15.5) % Plt Count (150-450) k/uL MPV Neutrophils % % Lymphocytes % % Monocytes % % Eosinophils % % Basophils % % Neutrophils # (1.3-7.7) k/uL Lymphocytes # (1.0-4.8) k/uL Monocytes # (0-1.0) k/uL Eosinophils # (0-0.7) k/uL Basophils # (0-0.2) k/uL Hypochromasia Macrocytosis PT (9.0-12.0) sec INR (<1.2) APTT (22.0-30.0) sec Sodium (137-145) mmol/L Potassium (3.5-5.1) mmol/L Chloride (98-107) mmol/L Carbon Dioxide (22-30) mmol/L Anion Gap mmol/L BUN (9-20) mg/dL Creatinine (0.66-1.25) mg/dL Est GFR (CKD-EPI)AfAm (>60 ml/min/1.73 sqM) Est GFR (CKD-EPI)NonAf (>60 ml/min/1.73 sqM) Glucose (74-99) mg/dL Plasma Lactic Acid Stone 0.9 (0.7-2.0) mmol/L Calcium (8.4-10.2) mg/dL Magnesium (1.6-2.3) mg/dL Total Bilirubin (0.2-1.3) mg/dL AST (17-59) U/L ALT (4-49) U/L Alkaline Phosphatase (38-126) U/L Troponin I 0.052 H* (0.000-0.034) ng/mL NT-Pro-B Natriuret Pep 3940 pg/mL Total Protein (6.3-8.2) g/dL Albumin (3.5-5.0) g/dL Coronavirus (PCR) (Not Detectd) 05/17/21 Range/Units 06:32 WBC (3.8-10.6) k/uL RBC (4.30-5.90) m/uL Hgb (13.0-17.5) gm/dL Hct (39.0-53.0) % MCV (80.0-100.0) fL MCH (25.0-35.0) pg MCHC (31.0-37.0) g/dL RDW (11.5-15.5) % Plt Count (150-450) k/uL MPV Neutrophils % % Lymphocytes % % Monocytes % % Eosinophils % % Basophils % % Neutrophils # (1.3-7.7) k/uL Lymphocytes # (1.0-4.8) k/uL Monocytes # (0-1.0) k/uL Eosinophils # (0-0.7) k/uL Basophils # (0-0.2) k/uL Hypochromasia Macrocytosis PT (9.0-12.0) sec INR (<1.2) APTT (22.0-30.0) sec Sodium (137-145) mmol/L Potassium (3.5-5.1) mmol/L Chloride (98-107) mmol/L Carbon Dioxide (22-30) mmol/L Anion Gap mmol/L BUN (9-20) mg/dL Creatinine (0.66-1.25) mg/dL Est GFR (CKD-EPI)AfAm (>60 ml/min/1.73 sqM) Est GFR (CKD-EPI)NonAf (>60 ml/min/1.73 sqM) Glucose (74-99) mg/dL Plasma Lactic Acid Stone (0.7-2.0) mmol/L Calcium (8.4-10.2) mg/dL Magnesium (1.6-2.3) mg/dL Total Bilirubin (0.2-1.3) mg/dL AST (17-59) U/L ALT (4-49) U/L Alkaline Phosphatase (38-126) U/L Troponin I (0.000-0.034) ng/mL NT-Pro-B Natriuret Pep pg/mL Total Protein (6.3-8.2) g/dL Albumin (3.5-5.0) g/dL Coronavirus (PCR) Not Detected (Not Detectd) Disposition Clinical Impression: Pneumonia, COPD (chronic obstructive pulmonary disease), Acute on chronic renal failure, CHF (congestive heart failure), Fracture of left distal radius Disposition: ADMITTED IP TO THIS HOSP Condition: Poor Referrals: [facility],Clinic [Primary Care Provider] - 1-2 days
[2021-05-17 06:58] LABS: Albumin 3.1 g/dL (3.5-5.0); Calcium 8.9 mg/dL (8.4-10.2); Magnesium 1.1 mg/dL (1.6-2.3); Potassium 5.4 mmol/L (3.5-5.1); Total Bilirubin 0.9 mg/dL (0.2-1.3); Total Protein 5.9 g/dL (6.3-8.2)
[2021-05-17 07:10] LABS: INR 1.1 (<1.2); Partial Thromboplastin Time 21.7 sec (22.0-30.0); Prothrombin Time 11.3 sec (9.0-12.0)
--- NOTE | 2021-05-17 07:31 | XR ---
EXAMINATION TYPE: XR chest 1V portable DATE OF EXAM: 05/17/2021 COMPARISON: 08/31/2020 HISTORY: Shortness of breath TECHNIQUE: Single frontal view of the chest is obtained. FINDINGS: Cardiac device and hyperinflation noted. Heart size is upper limits of normal. Subsegmenta l changes involving the lung bases with small effusion. No overt failure. IMPRESSION: Subsegmental lower lobe atelectasis or early infiltrate correlate clinically.
--- NOTE | 2021-05-17 07:37 | XR ---
EXAMINATION TYPE: XR wrist limited LT DATE OF EXAM: 05/17/2021 CLINICAL HISTORY: Pain and swelling. TECHNIQUE: Frontal and lateral images of the left wrist are obtained. COMPARISON: None FINDINGS: There is comminuted slightly impacted fracture distal metaphysis with large transverse com ponent and likely intra-articular extension. This could be acute or subacute in age as there is sugg estion of some callus formation. Correlate clinically. Old ulnar styloid fracture with 1.2 cm well-de fined fracture fragment. Scaphoid is truncated with distal sclerosis suggesting old fracture injury a nd avascular necrosis. Moderate overlying soft tissue swelling and subcutaneous edema. IMPRESSION: As above.
[2021-05-17] MEDS ORDERED: AZITHROMYCIN 500 MG in SODIUM CHLORIDE 0.9% 250 ML IVPB STA (07:44)
[2021-05-17] MEDS ORDERED: PNEUMONIA PROTOCOL UTILIZED 1 EACH MISC PO PRN (07:48)
[2021-05-17] MEDS: MORPHINE SULFATE 4 MG/ML SYRINGE IVP PRN ×3 (09:08→17:18)
[2021-05-17 10:18] LABS: Appearance,Urine Clear (Clear); Bacteria,Urine Rare /hpf; Bilirubin,Urine Negative (Negative); Blood,Urine Moderate (Negative); Color,Urine Yellow; Glucose,Urine (UA) Negative (Negative); Ketones,Urine 1+ (Negative); Leukocyte Esterase,Urine Negative (Negative); Mucus,Urine Rare /hpf; Nitrite,Urine Negative (Negative); Protein,Urine Trace (Negative); RBC,Urine 30 /hpf (0-5); Specific Gravity,Urine 1.012 (1.001-1.035); Urobilinogen,Urine <2.0 mg/dL (<2.0); WBC,Urine 2 /hpf (0-5)
--- NOTE | 2021-05-17 11:42 | P.CRDCN ---
History of Present Illness Consult date: 05/17/21 History of present illness: HISTORY OF PRESENT ILLNESS: This is a 65-year-old male with a past medical history significant for paroxysmal atrial fibrillation, sick sinus syndrome with permanent pacemaker insertion, nonischemic myopathy, chronic systolic heart failure, obstructive sleep apnea, COPD, hypertension, hyperlipidemia, chronic kidney disease, and obstructive sleep apnea. Patient follows in the office with Dr. Landeros. We have been asked to see the patient in consultation for CHF, abnormal troponins. Patient examined at the bedside in the emergency room. Patient presented to the hospital due to SOB per the ER physician notes. However, when talking to the patient he denies having any shortness of breath. He denies chest pain or pressure. Patient recently fell and was diagnosed with a left arm fracture. Patient denies any chest pain or pressure. Vital signs are stable. EKG reveals sinus mechanism. Right bundle branch block. Left fasciular block. Chest xray: Subsegmental lower lobe atelectasis or early infiltrate. Laboratory data: WBC 19.7. Hemoglobin 8.2. Platelet count 188. Sodium 132. Potassium 5.4. BUN 74. Creatinine 2.36. Troponin 0.052. 0.047. ProBNP 3970. Current home cardiac medications include Eliquis 2.5 mg twice a day, metoprolol succinate 50 mg at night, Midodrine 10mg TID Most recent echocardiogram obtained in July 2020 revealed ejection fraction 30- 35%, moderate mitral regurgitation, mild tricuspid regurgitation, and borderline pulmonary hypertension. REVIEW OF SYSTEMS: At the time of my exam: CONSTITUTIONAL: Denies fever or chills. HEENT: Denies blurred vision, vision changes, or eye pain. Denies hemoptysis CARDIOVASCULAR: Denies chest pain. Denies orthopnea. Denies PND. Denies palpitations RESPIRATORY: Denies shortness of breath. GASTROINTESTINAL: Denies abdominal pain. Denies nausea or vomiting. HEMATOLOGIC: Denies bleeding disorders. GENITOURINARY: Denies any blood in urine. SKIN: Denies pruitis. Denies rash. PHYSICAL EXAM: VITAL SIGNS: Reviewed. GENERAL: Well-developed in no acute distress. HEENT: Head is normocephalic. Pupils are equal, round. Sclerae anicteric. Mucous membranes of the mouth are moist. Neck supple. No JVD or thyromegaly LUNGS: Respirations even and unlabored. Lungs diminished with scattered rhonchi. Frequent coughing noted. HEART: Regular rate and rhythm. S1 and S2 heard. Systolic murmur noted. ABDOMEN: Soft. Nondistended. Nontender. EXTREMITIES: Normal range of motion. No clubbing or cyanosis. Peripheral pulses intact. Bilateral lower extremity edema with dry flaky skin. Left arm in a splint with swelling and bruising noted. NEUROLOGIC: Awake and alert. Oriented x 3. ASSESSMENT: Possible pneumonia Leukocytosis Left arm fracture Paroxysmal atrial fibrillation, on Eliquis Chronic kidney disease Abnormal troponins, not suggestive of acute coronary syndrome COPD History of nonischemic cardiomyopathy Hypertension Chronic systolic congestive heart failure Hypertension Hyperlipidemia Diabetes mellitus PLAN: Obtain 2D echo to assess cardiac structure and function Resume home cardiac medications Consult nephrology Orthopedics consulted. Hold Eliquis until evaluated by ortho. Further recommendation pending patient course Nurse practitioner note has been reviewed by physician. Signing provider agrees with the documented findings, assessment, and plan of care. Past Medical History Past Medical History: Atrial Fibrillation, Heart Failure, COPD, Diabetes M ellitus, Deep Vein Thrombosis (DVT), GERD/Reflux, Hyperlipidemia, Hypertension, Pneumonia, Renal Disease, Respiratory Disorder, Skin Disorder, Sleep Apnea/CPAP/BIPAP, Vascular Disorder Additional Past Medical History / Comment(s): Pt recently admitted to [facility] on 08/02/20 with chf/acute on chronic renal disease, possible pneumonia. Pt tested covic+ on 08/20/20 at [facility] ER. Other hx: Chronic hypoxic respiratory failure and the patient OXYGEN dependent 5 L, previous history of left-sided pneumothorax requiring a Thoravent insertion, IDDM type II, paroxysmal AFIB, SSS with pacer, nonischemic cardiomyopathy, past alcoholism/DTs, diverticulosis, obstuctive sleep apnea but no Cpap since wt loss, sinusitis, neuropathy bilateral feet, elevated LFTs, BPH, CKD stag III, DVT R leg, hypomagnesemia, hypoalbuminemia, anemia, protein calorie malnutrition, PVD, current sores lili ateral feet. History of Any Multi-Drug Resistant Organisms: None Reported Past Surgical History: Appendectomy, Cholecystectomy, Heart Catheterization, Pacemaker Additional Past Surgical History / Comment(s): Partial liver removed d/t adhesions, colonoscopies, bilateral eyes blepharoplasties, pacer Past Anesthesia/Blood Transfusion Reactions: Postoperative Nausea & Vomiting (PONV) Additional Past Anesthesia/Blood Transfusion Reaction / Comment(s): Pt states he has had PONV with gas only. Type of Cardiac Device: Permanent Pacemaker Device Placement Date:: 2017 Past Psychological History: Anxiety, Depression, Panic Disorder Smoking Status: Former smoker Past Alcohol Use History: None Reported Past Drug Use History: None Reported - Past Family History Mother Family Medical History: Thyroid Disorder Additional Family Medical History / Comment(s): . Father Additional Family Medical History / Comment(s): Father of diverticulitis,peritonitis at the age of 35yrs. Medications and Allergies Home Medications Medication Instructions Recorded Confirmed Type Tamsulosin [Flomax] 0.4 mg PO DAILY 06/23/16 05/17/21 History HYDROcodone/APAP 10-325MG [[place] 1 tab PO Q6H PRN 09/06/17 05/17/21 History 10-325] Ondansetron HCl [Zofran] 4 mg PO BID PRN 09/30/18 05/17/21 History Apixaban [Eliquis] 2.5 mg PO BID 01/11/19 05/17/21 History Insulin Aspart [NovoLOG Flexpen] See Protocol SQ AC-TID 08/02/20 05/17/21 History Insulin Glargine,Hum.rec.anlog 25 unit SQ DAILY 08/02/20 05/17/21 History [Lantus Solostar Pen] Levothyroxine Sodium [Synthroid] 25 mcg PO DAILY 08/02/20 05/17/21 History Metoprolol Succinate (ER) [Toprol 50 mg PO HS #30 tab.er.24h 08/31/20 05/17/21 Rx XL] Pantoprazole [Protonix] 40 mg PO DAILY #30 tab 08/31/20 05/17/21 Rx Dextrose Gel [Glutose 15 Gel] 1 applic MUCOUS MEM DIRECTED 05/17/21 05/17/21 History Dicyclomine [Bentyl] 20 mg PO TID PRN 05/17/21 05/17/21 History Fluticasone/Salmeterol [Advair 1 puff INHALATION RT-BID 05/17/21 05/17/21 History 500-50 Diskus] Furosemide [Lasix] 40 mg PO BID 05/17/21 05/17/21 History Ipratropium/Albuter 20-100Mcg 1 puff INHALATION RT-QID 05/17/21 05/17/21 History [Combivent Respimat 20-100Mcg Inhaler] Lidocaine 5% Patch [Lidoderm] 1 patch TOPICAL DAILY PRN 05/17/21 05/17/21 History Midodrine HCl [ProAmatine] 10 mg PO TID 05/17/21 05/17/21 History Triamcinolone 0.1% Cream [Kenalog 1 applic TOPICAL BID PRN 05/17/21 05/17/21 History 0.1% Cream] allopurinoL [Zyloprim] 200 mg PO DAILY 05/17/21 05/17/21 History predniSONE [Deltasone] 20 mg PO DAILY 05/17/21 05/17/21 History Allergies Allergy/AdvReac Type Severity Reaction Status Date / Time No Known Allergies Allergy Verified 05/17/21 09:51 Physical Exam Vitals: Vital Signs Temp Pulse Resp BP Pulse Ox 05/17/21 07:22 78 22 129/88 92 L 05/17/21 06:16 97.7 F 86 24 117/60 94 L Intake and Output 05/16/21 05/17/21 05/17/21 22:59 06:59 14:59 Other: Weight 104.326 kg Results 05/17/21 06:30 05/17/21 06:30 Cardiac Enzymes 05/17/21 05/17/21 05/17/21 Range/Units 06:30 06:30 08:37 AST 37 (17-59) U/L Troponin I 0.052 H* 0.047 H* (0.000-0.034) ng/mL Coagulation 05/17/21 Range/Units 06:30 PT 11.3 (9.0-12.0) sec APTT 21.7 L (22.0-30.0) sec CBC 05/17/21 Range/Units 06:30 WBC 19.7 H (3.8-10.6) k/uL RBC 2.55 L (4.30-5.90) m/uL Hgb 8.2 L (13.0-17.5) gm/dL Hct 26.8 L (39.0-53.0) % Plt Count 188 (150-450) k/uL Comprehensive Metabolic Panel 05/17/21 Range/Units 06:30 Sodium 132 L (137-145) mmol/L Potassium 5.4 H (3.5-5.1) mmol/L Chloride 94 L (98-107) mmol/L Carbon Dioxide 23 (22-30) mmol/L BUN 74 H (9-20) mg/dL Creatinine 2.36 H (0.66-1.25) mg/dL Glucose 152 H (74-99) mg/dL Calcium 8.9 (8.4-10.2) mg/dL AST 37 (17-59) U/L ALT 31 (4-49) U/L Alkaline Phosphatase 81 (38-126) U/L Total Protein 5.9 L (6.3-8.2) g/dL Albumin 3.1 L (3.5-5.0) g/dL Current Medications Generic Name Dose Route Start Last Admin Trade Name Freq PRN Reason Stop Dose Admin Hydrocodone Bitart/Acetaminophen 1 each 05/17/21 08:51 Hydrocodone/Apap 5-325mg 1 Each Tab PO Q4HR PRN Pain Furosemide 40 mg 05/17/21 10:30 Furosemide 40 Mg Tab PO BID@0900,1600 [facility] Metoprolol Succinate 50 mg 05/17/21 21:00 Metoprolol Succinate (Er) 50 Mg Tab.Er.24h PO HS [facility] Midodrine 10 mg 05/17/21 10:30 Midodrine 5 Mg Tab PO AC-TID [facility] Miscellaneous Information 1 each 05/17/21 07:48 Pneumonia Protocol Utilized 1 Each Misc PO ONCE PRN Per Protocol Morphine Sulfate 4 mg 05/17/21 08:51 05/17/21 09:08 Morphine Sulfate 4 Mg/Ml Syringe IVP 4 mg Q4HR PRN Administration Pain Intake and Output 05/16/21 05/17/21 05/17/21 22:59 06:59 14:59 Other: Weight 104.326 kg 05/17/21 06:30 05/17/21 06:30
[2021-05-17 12:08] LABS: Basophils # (A) 0.1 k/uL (0-0.2); Basophils % (A) 0 %; Eosinophils % (A) 0 %; HCT 27.6 % (39.0-53.0); HGB 8.2 gm/dL (13.0-17.5); Hypochromasia Marked; Lymphocytes # (A) 0.5 k/uL (1.0-4.8); Lymphocytes % (A) 3 %; MCH 32.9 pg (25.0-35.0); MCHC 29.8 g/dL (31.0-37.0); Macrocytosis Marked; Mean Platelet Volume 8.4; Monocytes # (A) 0.9 k/uL (0-1.0); Monocytes % (A) 5 %; Neutrophils # (A) 18.2 k/uL (1.3-7.7); Neutrophils % (A) 92 %; Platelet Count 171 k/uL (150-450); RDW 14.3 % (11.5-15.5); WBC 19.9 k/uL (3.8-10.6)
[2021-05-17 12:09] LABS: ALT 27 U/L (4-49); African American GFR (CKD) 36 (>60 ml/min/1.73 sqM); Albumin 2.8 g/dL (3.5-5.0); Anion Gap 14 mmol/L; Blood Urea Nitrogen 76 mg/dL (9-20); Calcium 8.8 mg/dL (8.4-10.2); Carbon Dioxide 20 mmol/L (22-30); Chloride 99 mmol/L (98-107); Globulin 2.7 g/dL; Glucose 138 mg/dL (74-99); MCV 110.4 fL (80.0-100.0); Non-African American GFR(CKD) 31 (>60 ml/min/1.73 sqM); Sodium 133 mmol/L (137-145); Total Bilirubin 0.9 mg/dL (0.2-1.3); Total Protein 5.5 g/dL (6.3-8.2)
[2021-05-17 12:12] LABS: AST 46 U/L (17-59); Alkaline Phosphatase 73 U/L (38-126); Potassium 5.7 mmol/L (3.5-5.1)
[2021-05-17] MEDS: FUROSEMIDE 40 MG TAB PO SCH ×2 (13:03→17:19)
[2021-05-17] MEDS: MIDODRINE 5 MG TAB PO SCH ×4 (13:03→18:10)
[2021-05-17] MEDS ORDERED: ONDANSETRON 4 MG TAB PO PRN (17:37)
[2021-05-17] MEDS ORDERED: DICYCLOMINE 10 MG CAP PO PRN (17:37)
[2021-05-17] MEDS ORDERED: IPRATROPIUM-ALBUTEROL 3 ML NEB INHALATION PRN (17:40)
--- NOTE | 2021-05-17 18:16 | HP ---
HISTORY AND PHYSICAL CHIEF COMPLAINT: Shortness of breath. HISTORY OF PRESENT ILLNESS: This 65-year-old gentleman with a past medical history of multiple medical problems, including history of atrial fibrillation, CHF, COPD, diabetes, DVT, GERD, hypertension, hyperlipidemia, history of pneumonia, history of respiratory distress, obstructive sleep apnea, being followed by Dr. Walker in the [facility] in the outpatient setting, was having complaints of increasing shortness of breath. The patient apparently had a fall a few weeks ago and had a left arm fracture and was splinted in the hospital. Patient was suppose to follow up with orthopedic doctor. Because of increasing shortness of breath, the patient came to [facility] and a combination of CHF and pneumonia was suspected. Patient admitted to the hospital for further evaluation and treatment. There is no history of fever, rigors, no history of headache, loss of consciousness or seizures. The patient is slightly drowsy at this time. PAST MEDICAL HISTORY: History of atrial fibrillation, CHF, COPD, diabetes, DVT, GERD, hypertension, hyperlipidemia. MEDICATIONS: Prior to admission home medications are: Zyloprim, glucose, Eliquis, Toprol, Synthroid, Combivent, NovoLog, fluticasone,, Deltasone, Flomax, Protonix, doses are reviewed. ALLERGIES: None. FAMILY HISTORY: History of thyroid disease in the family. SOCIAL HISTORY: History of smoking. REVIEW OF SYSTEMS: Could not be taken, the patient is slightly drowsy. PHYSICAL EXAMINATION: Patient is slightly drowsy, conscious. Pulse is 82. Blood pressure 111/70, respiration 20, temperature normal, pulse ox 91% on 6 L. HEENT: Conjunctivae normal. NECK: No JVD. CARDIOVASCULAR: S1, S2 muffled. RESPIRATORY: Breath sounds diminished in the bases. Scattered rhonchi and crackles. Coarse crackles also heard. ABDOMEN: Soft, obese, nontender. No mass palpable. LEGS: Bilateral leg edema. NERVOUS SYSTEM: Higher function as mentioned. Moves all four limbs. Mild diffuse weakness. LYMPHATICS: No lymph nodes palpable in the neck, axilla or groin. SKIN: No ulcer, no rash and no bleeding. JOINTS: No active deforming arthropathy. Left arm: Cast and fingers are blue and tender and movements are present. LABS: WBC 19.9, hemoglobin 8.2, sodium 138, potassium 5.7, creatinine is 2.18. Troponin is noted. ASSESSMENT: 1. Shortness of breath, possibly multifactorial with chronic obstructive pulmonary disease acute exacerbation with acute purulent tracheobronchitis, early pneumonia and as well as congestive heart failure, acute exacerbation with acute hypoxic respiratory failure. 2. Chronic kidney disease stage 3. 3. Hyponatremia. 4. Hyperkalemia. 5. Hypomagnesemia. 6. Troponin 0.05, indeterminate, possibly myocardial infarction or secondary to respiratory difficulties. 7. Anemia, macrocytic. 8. Increased WBC. 9. Left arm fracture recently and fall. 10.Gait dysfunction. 11.Change in mental status, metabolic encephalopathy, multifactorial. 12.History of atrial fibrillation, chronic. 13.History of congestive heart failure. 14.History of chronic obstructive pulmonary disease. 15.Diabetes mellitus, type 2. 16.History of deep vein thrombosis. 17.Gastroesophageal reflux disease. 18.Hyperlipidemia. 19.History of pneumonia. 20.History of respiratory disorder. 21.History of sleep apnea. 22.History of recent Covid positivity. 23.History of Covid infection last year. 24.History of chronic hypoxic respiratory failure on 5 L nasal cannula. 25.History of sick sinus syndrome. 26.History of appendectomy. 27.History of cholecystectomy. 28.History of anxiety, depression, panic disorder. 29.FULL CODE. RECOMMENDATIONS AND DISCUSSION: In this 65 -year-old gentleman who presented with multiple complex medical issues, we will monitor the patient closely, continue the current medication, symptomatic treatment. I recommend cardiology and pulmonology consultations. I would also recommend nephrology consultation for the renal failure. Empiric antibiotics will be initiated. Cautious diuretics, otherwise empiric antibiotics, bronchodilators. Resume the home medications. Prognosis guarded because of multiple complex medical issues. We will also obtain an orthopedic evaluation and if needed vascular surgery consultation per Ortho recommendations. Once again, the prognosis guarded. Further recommendations to follow. A copy of this dictation is being forwarded to Dr. Walker who is the primary physician. The prognosis is extremely guarded, which I discussed at length with the daughter who lives in [place], who is at the bedside. See orders for details. MMODL / IJN: [id number] / MTDD
--- NOTE | 2021-05-17 18:45 | P.CNOR ---
History of Present Illness - [facility] Consult date: 05/17/21 History of present illness: This patient is a 65-year-old male past medical history of atrial fibrillation on Eliquis, heart failure, COPD, hypertension, hyperlipidemia, chronic kidney disease that presented to [facility] emergency department 05/17/21 with complaints of shortness of breath. [facility], WBC was elevated at 19.7, chest x-ray showed possible pneumonia, and troponins were also elevated. X-rays revealed a left wrist fracture. Patient was admitted under the care of internal medicine and a consult to cardiology. Orthopedics was consulted in regards to the patient's left wrist fracture. Patient is seen and examined bedside in the emergency department this afternoon. His daughter is also bedside. Patient states he injured the wrist about a week ago. He tripped over a rug and fell at home. He states he was seen by his PCP in [place] last Monday, x-rays were taken and patient was told he sustained a fracture. He was placed into a splint. Patient's daughter states he removed the splint shortly after and has been without a splint or brace on all week. He notes pain in the left wrist and elbow. He denies additional complaints or concerns. He denies numbness or tingling of the left upper extremity. Past Medical History Past Medical History: Atrial Fibrillation, Heart Failure, COPD, Diabetes Mellitus, Deep Vein Thrombosis (DVT), GERD/Reflux, Hyperlipidemia, Hypertension, Pneumonia, Renal Disease, Respiratory Disorder, Skin Disorder, Sleep Apnea/CPAP/BIPAP, Vascular Disorder Additional Past Medical History / Comment(s): Pt recently admitted to [facility] on 08/02/20 with chf/acute on chronic renal disease, possible pneumonia. Pt tested covic+ on 08/20/20 at [facility] ER. Other hx: Chronic hypoxic respiratory failure and the patient OXYGEN dependent 5 L, previous history of left-sided pneumothorax requiring a Thoravent insertion, IDDM type II, paroxysmal AFIB, SSS with pacer, nonischemic cardiomyopathy, past alcoholism/DTs, diverticulosis, obstuctive sleep apnea but no Cpap since wt loss, sinusitis, neuropathy bilateral feet, elevated LFTs, BPH, CKD stag III, DVT R leg, hypomagnesemia, hypoalbuminemia, anemia, protein calorie malnutrition, PVD, current sores bilateral feet. History of Any Multi-Drug Resistant Organisms: None Reported Past Surgical History: Appendectomy, Cholecystectomy, Heart Catheterization, Pacemaker Additional Past Surgical History / Comment(s): Partial liver removed d/t adhesions, colonoscopies, bilateral eyes blepharoplasties, pacer Past Anesthesia/Blood Transfusion Reactions: Postoperative Nausea & Vomiting (PONV) Additional Past Anesthesia/Blood Transfusion Reaction / Comm: Pt states he has had PONV with gas only. Type of Cardiac Device: Permanent Pacemaker Device Placement Date:: 2017 Past Psychological History: Anxiety, Depression, Panic Disorder Smoking Status: Former smoker Past Alcohol Use History: None Reported Past Drug Use History: None Reported - Past Family History Mother Family Medical History: Thyroid Disorder Additional Family Medical History / Comment(s): . Father Additional Family Medical History / Comment(s): Father of diverticulitis,peritonitis at the age of 35yrs. Medications and Allergies Home Medications Medication Instructions Recorded Confirmed Type Tamsulosin [Flomax] 0.4 mg PO DAILY 06/23/16 05/17/21 History HYDROcodone/APAP 10-325MG [[place] 1 tab PO Q6H PRN 09/06/17 05/17/21 History 10-325] Ondansetron HCl [Zofran] 4 mg PO BID PRN 09/30/18 05/17/21 History Apixaban [Eliquis] 2.5 mg PO BID 01/11/19 05/17/21 History Insulin Aspart [NovoLOG Flexpen] See Protocol SQ AC-TID 08/02/20 05/17/21 History Insulin Glargine,Hum.rec.anlog 25 unit SQ DAILY 08/02/20 05/17/21 History [Lantus Solostar Pen] Levothyroxine Sodium [Synthroid] 25 mcg PO DAILY 08/02/20 05/17/21 History Metoprolol Succinate (ER) [Toprol 50 mg PO HS #30 tab.er.24h 08/31/20 05/17/21 Rx XL] Pantoprazole [Protonix] 40 mg PO DAILY #30 tab 08/31/20 05/17/21 Rx Dextrose Gel [Glutose 15 Gel] 1 applic MUCOUS MEM DIRECTED 05/17/21 05/17/21 History Dicyclomine [Bentyl] 20 mg PO TID PRN 05/17/21 05/17/21 History Fluticasone/Salmeterol [Advair 1 puff INHALATION RT-BID 05/17/21 05/17/21 History 500-50 Diskus] Furosemide [Lasix] 40 mg PO BID 05/17/21 05/17/21 History Ipratropium/Albuter 20-100Mcg 1 puff INHALATION RT-QID 05/17/21 05/17/21 History [Combivent Respimat 20-100Mcg Inhaler] Lidocaine 5% Patch [Lidoderm] 1 patch TOPICAL DAILY PRN 05/17/21 05/17/21 Hi story Midodrine HCl [ProAmatine] 10 mg PO TID 05/17/21 05/17/21 History Triamcinolone 0.1% Cream [Kenalog 1 applic TOPICAL BID PRN 05/17/21 05/17/21 History 0.1% Cream] allopurinoL [Zyloprim] 200 mg PO DAILY 05/17/21 05/17/21 History predniSONE [Deltasone] 20 mg PO DAILY 05/17/21 05/17/21 History Allergies Allergy/AdvReac Type Severity Reaction Status Date / Time No Known Allergies Allergy Verified 05/17/21 09:51 Physical Examination On examination, patient is sitting up in bed in no acute distress. Daughter is bedside. His head appears normocephalic and atraumatic. His breathing appears non-labored. On inspection of the left upper extremity, there is a short arm splint in place that appears to be well-fitting. There is moderate swelling of the elbow. The visible portion of the hand is diffusely swollen and there is ecchymosis of the fingers and hand. Minimal pain with passive [id number] of the fingers. Minimal pain with passive ibdwe-[id number] of the left elbow.There is no pain with palpation or passive range of motion of the left shoulder. Motor and sensory function is intact of the left upper extremity. There is ecchymosis of the dorsal fingers. The fingers are warm and well-perfused with brisk capillary refill distally. On inspection of the right upper extremity, there are no obvious deformities or signs of trauma. Results Left wrist x-ray 05/17/20: Mildly displaced left distal radius fracture. Chronic ulnar styloid fracture. - Labs Labs: Abnormal Lab Results - Last 24 Hours (Table) 0105/17/21 05/17/21 Range/Units 06:30 06:30 06:30 WBC 19.7 H (3.8-10.6) k/uL RBC 2.55 L (4.30-5.90) m/uL Hgb 8.2 L (13.0-17.5) gm/dL Hct 26.8 L (39.0-53.0) % MCV 105.0 H (80.0-100.0) fL MCHC 30.5 L (31.0-37.0) g/dL Neutrophils # 18.3 H (1.3-7.7) k/uL Lymphocytes # 0.4 L (1.0-4.8) k/uL Macrocytosis APTT 21.7 L (22.0-30.0) sec Sodium 132 L (137-145) mmol/L Potassium 5.4 H (3.5-5.1) mmol/L Chloride 94 L (98-107) mmol/L Carbon Dioxide (22-30) mmol/L BUN 74 H (9-20) mg/dL Creatinine 2.36 H (0.66-1.25) mg/dL Glucose 152 H (74-99) mg/dL Plasma Lactic Acid Stone (0.7-2.0) mmol/L Magnesium 1.1 L (1.6-2.3) mg/dL Troponin I (0.000-0.034) ng/mL Total Protein 5.9 L (6.3-8.2) g/dL Albumin 3.1 L (3.5-5.0) g/dL Urine Protein (Negative) Urine Ketones (Negative) Urine Blood (Negative) Urine RBC (0-5) /hpf Urine Bacteria (None) /hpf Urine Mucus (None) /hpf 05/17/21 05/17/21 05/17/21 Range/Units 06:30 07:30 08:30 WBC (3.8-10.6) k/uL RBC (4.30-5.90) m/uL Hgb (13.0-17.5) gm/dL Hct (39.0-53.0) % MCV (80.0-100.0) fL MCHC (31.0-37.0) g/dL Neutrophils # (1.3-7.7) k/uL Lymphocytes # (1.0-4.8) k/uL Macrocytosis APTT (22.0-30.0) sec Sodium (137-145) mmol/L Potassium (3.5-5.1) mmol/L Chloride (98-107) mmol/L Carbon Dioxide (22-30) mmol/L BUN (9-20) mg/dL Creatinine (0.66-1.25) mg/dL Glucose (74-99) mg/dL Plasma Lactic Acid Stone 0.6 L (0.7-2.0) mmol/L Magnesium (1.6-2.3) mg/dL Troponin I 0.052 H* (0.000-0.034) ng/mL Total Protein (6.3-8.2) g/dL Albumin (3.5-5.0) g/dL Urine Protein Trace H (Negative) Urine Ketones 1+ H (Negative) Urine Blood Moderate H (Negative) Urine RBC 30 H (0-5) /hpf Urine Bacteria Rare H (None) /hpf Urine Mucus Rare H (None) /hpf 05/17/21 05/17/21 05/17/21 Range/Units 08:37 11:19 11:19 WBC 19.9 H (3.8-10.6) k/uL RBC 2.50 L (4.30-5.90) m/uL Hgb 8.2 L (13.0-17.5) gm/dL Hct 27.6 L (39.0-53.0) % MCV 110.4 H D (80.0-100.0) fL MCHC 29.8 L (31.0-37.0) g/dL Neutrophils # 18.2 H (1.3-7.7) k/uL Lymphocytes # 0.5 L (1.0-4.8) k/uL Macrocytosis Marked A APTT (22.0-30.0) sec Sodium (137-145) mmol/L Potassium (3.5-5.1) mmol/L Chloride (98-107) mmol/L Carbon Dioxide (22-30) mmol/L BUN (9-20) mg/dL Creatinine (0.66-1.25) mg/dL Glucose (74-99) mg/dL Plasma Lactic Acid Stone (0.7-2.0) mmol/L Magnesium (1.6-2.3) mg/dL Troponin I 0.047 H* 0.046 H* (0.000-0.034) ng/mL Total Protein (6.3-8.2) g/dL Albumin (3.5-5.0) g/dL Urine Protein (Negative) Urine Ketones (Negative) Urine Blood (Negative) Urine RBC (0-5) /hpf Urine Bacteria (None) /hpf Urine Mucus (None) /hpf 05/17/21 Range/Units 11:19 WBC (3.8-10.6) k/uL RBC (4.30-5.90) m/uL Hgb (13.0-17.5) gm/dL Hct (39.0-53.0) % MCV (80.0-100.0) fL MCHC (31.0-37.0) g/dL Neutrophils # (1.3-7.7) k/uL Lymphocytes # (1.0-4.8) k/uL Macrocytosis APTT (22.0-30.0) sec Sodium 133 L (137-145) mmol/L Potassium 5.7 H (3.5-5.1) mmol/L Chloride (98-107) mmol/L Carbon Dioxide 20 L (22-30) mmol/L BUN 76 H (9-20) mg/dL Creatinine 2.18 H (0.66-1.25) mg/dL Glucose 138 H (74-99) mg/dL Plasma Lactic Acid Stone (0.7-2.0) mmol/L Magnesium (1.6-2.3) mg/dL Troponin I (0.000-0.034) ng/mL Total Protein 5.5 L (6.3-8.2) g/dL Albumin 2.8 L (3.5-5.0) g/dL Urine Protein (Negative) Urine Ketones (Negative) Urine Blood (Negative) Urine RBC (0-5) /hpf Urine Bacteria (None) /hpf Urine Mucus (None) /hpf H & H 05/17/21 05/17/21 Range/Units 06:30 11:19 Hgb 8.2 L 8.2 L (13.0-17.5) gm/dL Hct 26.8 L 27.6 L (39.0-53.0) % Coagulation 05/17/21 Range/Units 06:30 INR 1.1 (<1.2) Result Diagrams: 05/17/21 11:19 05/17/21 11:19 Assessment and Plan Assessment: Left distal radius fracture Plan: - The clinical and imaging findings were discussed with the patient. The patient was discussed with Dr. Guillen. No surgical intervention is planned at this time. Recommend immobilization of the left wrist with the current short arm splint. Non-weight bearing left upper extremity. - Recommend aggressive elevation of the left wrist for swelling control. - Pain management as needed. - We will follow patient while he remains inpatient.
[2021-05-17] MEDS: SYMBICORT 160-4.5 MCG INHALER INHALATION SCH (19:50)
[2021-05-17] MEDS: IPRATROPIUM-ALBUTEROL 3 ML NEB INHALATION SCH (19:50)
[2021-05-17] MEDS: methylPREDNISolone SOD SUCCI 125 MG/2 ML VIAL IV SCH (20:52)
[2021-05-17] MEDS: METOPROLOL SUCCINATE (ER) 50 MG TAB.ER.24H PO SCH (20:52)
[2021-05-17] MEDS: APIXABAN 2.5 MG TABLET PO SCH (20:52)
[2021-05-17 21:35] LABS: Glucose,Whole Blood 116 mg/dL (75-99)
[2021-05-17] MEDS ORDERED: VANCOMYCIN IV PER PHARMACY 1 EACH MISC MISCELLANE PRN (21:37)
[2021-05-17] MEDS: INSULIN ASPART (NovoLOG) 100 UNIT/ML VIAL SQ SCH (21:49)
[2021-05-17] MEDS: INSULIN DETEMIR (LEVEMIR) 100 UNIT/ML SYR SQ SCH (21:50)
[2021-05-17] MEDS ORDERED: VANCOMYCIN 1,750 MG in SODIUM CHLORIDE 0.9% 500 ML 500 ML IVPB ONE (22:00)
[2021-05-18] MEDS: methylPREDNISolone SOD SUCCI 125 MG/2 ML VIAL IV SCH ×3 (00:49→12:54)
[2021-05-18] MEDS: LEVOTHYROXINE 25 MCG TAB PO SCH (06:23)
[2021-05-18 06:41] LABS: Basophils % (A) 0 %; Eosinophils % (A) 0 %; HCT 24.4 % (39.0-53.0); HGB 7.5 gm/dL (13.0-17.5); Hypochromasia Moderate; Lymphocytes # (A) 0.3 k/uL (1.0-4.8); Lymphocytes % (A) 2 %; MCH 32.6 pg (25.0-35.0); MCHC 30.8 g/dL (31.0-37.0); MCV 105.8 fL (80.0-100.0); Macrocytosis Moderate; Mean Platelet Volume 7.9; Monocytes # (A) 0.3 k/uL (0-1.0); Monocytes % (A) 3 %; Neutrophils # (A) 10.4 k/uL (1.3-7.7); Neutrophils % (A) 94 %; Platelet Count 159 k/uL (150-450); RDW 14.8 % (11.5-15.5)
[2021-05-18 07:16] LABS: Glucose,Whole Blood 90 mg/dL (75-99)
[2021-05-18] MEDS: INSULIN ASPART (NovoLOG) 100 UNIT/ML VIAL SQ SCH ×4 (07:22→19:56)
[2021-05-18] MEDS: INSULIN DETEMIR (LEVEMIR) 100 UNIT/ML SYR SQ SCH (07:22)
[2021-05-18] MEDS: TAMSULOSIN 0.4 MG CAP.ER.24H PO SCH (08:23)
[2021-05-18] MEDS: APIXABAN 2.5 MG TABLET PO SCH ×2 (08:23→21:03)
[2021-05-18] MEDS: allopurinoL 100 MG TAB PO SCH (08:23)
[2021-05-18] MEDS: PANTOPRAZOLE 40 MG TABLET PO SCH (08:23)
[2021-05-18] MEDS: FUROSEMIDE 40 MG TAB PO SCH ×2 (08:23→16:53)
[2021-05-18] MEDS: SYMBICORT 160-4.5 MCG INHALER INHALATION SCH ×3 (08:26→19:40)
[2021-05-18] MEDS: IPRATROPIUM-ALBUTEROL 3 ML NEB INHALATION SCH ×4 (08:26→19:25)
[2021-05-18] MEDS: MIDODRINE 5 MG TAB PO SCH ×3 (09:05→16:53)
[2021-05-18] MEDS ORDERED: Magnesium Replacement Protocol 1 EACH MISC MISCELLANE PRN (09:18)
[2021-05-18 09:25] LABS: African American GFR (CKD) 39.7 (60.0-200.0); Anion Gap 15.1 mmol/L (10.00-18.00); Calcium 8.7 mg/dL (8.7-10.3); Carbon Dioxide 25.9 mmol/L (20.0-27.5); Non-African American GFR(CKD) 34.3 (60.0-200.0)
--- NOTE | 2021-05-18 09:44 | ECHOF ---
Referral Reason:LV function, abnormal troponins MEASUREMENTS -------- HEIGHT: 182.9 cm WEIGHT: 104.3 kg BP: RVIDd: 3.4 cm (< 3.3) IVSd: 1.1 cm (0.6 - 1.1) LVIDd: 5.8 cm (3.9 - 5.3) LVPWd: 1.5 cm (0.6 - 1.1) IVSs: 1.3 cm LVIDs: 3.9 cm LVPWs: 1.7 cm Ao Diam: 4.2 cm (2.0 - 3.7) AV Cusp: 2.2 cm (1.5 - 2.6) LA Diam: 4.3 cm (2.7 - 3.8) MV EXCURSION: 25.553 mm (> 18.000) MV EF SLOPE: 112 mm/s (70 - 150) EPSS: 0.6 cm MV E Moisés: 0.83 m/s MV DecT: 268 ms MV A Moisés: 0.66 m/s MV E/A Ratio: 1.26 AV maxP.81 mmHg AV meanP.07 mmHg RAP: 5.00 mmHg RVSP: 19.65 mmHg FINDINGS -------- Undetermined rhythm. This was a technically adequate study. The left ventricular size is normal. Overall left ventricular systolic function is low-normal with, an EF between 50 - 55 %. The right ventricle is normal in size. The left atrial size is normal. The right atrial size is normal. The aortic valve was not well visualized. There is mild aortic stenosis present. Peak/mean gradie nt across the Aortic Valve is 26.81mmHg / 15.07mmHg. Mild mitral regurgitation is present. Mild tricuspid regurgitation present. Right ventricular systolic pressure is normal at < 35 mmHg. The pulmonic valve was not well visualized. Echo free space indicative of a pericardial fat pad. CONCLUSIONS -------- 1. The left ventricular size is normal. 2. Overall left ventricular systolic function is low-normal with, an EF between 50 - 55 %. 3. The right ventricle is normal in size. 4. The left atrial size is normal. 5. The right atrial size is normal. 6. The aortic valve was not well visualized. 7. There is mild aortic stenosis present. 8. Peak/mean gradient across the Aortic Valve is 26.81mmHg / 15.07mmHg. 9. Mild mitral regurgitation is present. 10. Mild tricuspid regurgitation present. 11. The pulmonic valve was not well visualized. 12. Echo free space indicative of a pericardial fat pad. TRIMMING ASSEMBLER: Sheila Robles RDCS
--- NOTE | 2021-05-18 10:08 | XR ---
EXAMINATION TYPE: XR chest 2V DATE OF EXAM: 05/18/2021 COMPARISON: 05/17/2021 TECHNIQUE: PA and lateral views submitted. HISTORY: Cough FINDINGS: Heart size is larger subsegmental changes at both lung bases with small pleural effusions. Coarsened interstitium. Cardiac device. Underlying COPD suspected. No pneumothorax. Atherosclerotic change aort a. IMPRESSION: 1. COPD with basilar atelectasis or infiltrate and small effusion correlate for mild venous congestio n or interstitial chronic lung disease, pneumonitis.
--- NOTE | 2021-05-18 10:14 | P.NPCON ---
History of Present Illness - Reason for Consult acute renal failure, chronic renal failure - History of Present Illness Reason for consultation: Acute kidney injury on chronic kidney disease History of present illness: Patient is a 65-year-old male seen in renal consultation for acute kidney injury on chronic kidney disease. Patient has chronic kidney disease stage IIIB with baseline creatinine in the range of 1.5-1.8 secondary to diabetic kidney disease. Patient presented to the hospital with shortness of breath. He is currently being treated for pneumonia as well as CHF. Echocardiogram showed preserved ejection fraction. He is maintained on oral Lasix. Good urine output. No hematuria. Blood pressure this morning was 98/58. Afebrile. Patient's is edema in the lower extremities has been improving over the last few days. Denies use of nonsteroidals. Patient has long-standing history of diabetes. Creatinine on admission was 2.36 and is down to 2.0 today. Vital signs are stable. HEENT: Head exam is unremarkable. LUNGS: Breath sounds decreased. HEART: Rate and Rhythm are regular. ABDOMEN: Soft, no distention. EXTREMITITES: Trace edema. Past Medical History Past Medical History: Atrial Fibrillation, Heart Failure, COPD, Diabetes Mellitu s, Deep Vein Thrombosis (DVT), GERD/Reflux, Hyperlipidemia, Hypertension, Pneumonia, Renal Disease, Respiratory Disorder, Skin Disorder, Sleep Apnea/CPAP/BIPAP, Vascular Disorder Additional Past Medical History / Comment(s): Pt recently admitted to [facility] on 08/02/20 with chf/acute on chronic renal disease, possible pneumonia. Pt tested covic+ on 08/20/20 at [facility] ER. Other hx: Chronic hypoxic respiratory failure and the patient OXYGEN dependent 5 L, previous history of left-sided pneumothorax requiring a Thoravent insertion, IDDM type II, paroxysmal AFIB, SSS with pacer, nonischemic cardiomyopathy, past alcoholism/DTs, diverticulosis, obstuctive sleep apnea but no Cpap since wt loss, sinusitis, neuropathy bilateral feet, elevated LFTs, BPH, CKD stag III, DVT R leg, hypomagnesemia, hypoalbuminemia, anemia, protein calorie malnutrition, PVD, current sores bilateral feet. History of Any Multi-Drug Resistant Organisms: None Reported Past Surgical History: Appendectomy, Cholecystectomy, Heart Catheterization, Pacemaker Additional Past Surgical History / Comment(s): Partial liver removed d/t adhesions, colonoscopies, bilateral eyes blepharoplasties, pacer Past Anesthesia/Blood Transfusion Reactions: Postoperative Nausea & Vomiting (PONV) Additional Past Anesthesia/Blood Transfusion Reaction / Comment(s): Pt states he has had PONV with gas only. Type of Cardiac Device: Permanent Pacemaker Device Placement Date:: 2017 Past Psychological History: Anxiety, Depression, Panic Disorder Smoking Status: Former smoker Past Alcohol Use History: None Reported Past Drug Use History: None Reported - Past Family History Mother Family Medical History: Thyroid Disorder Additional Family Medical History / Comment(s): . Father Additional Family Medical History / Comment(s): Father of diverticulitis,peritonitis at the age of 35yrs. Medications and Allergies Home Medications Medication Instructions Recorded Confirmed Type Tamsulosin [Flomax] 0.4 mg PO DAILY 06/23/16 05/17/21 History HYDROcodone/APAP 10-325MG [[place] 1 tab PO Q6H PRN 09/06/17 05/17/21 History 10-325] Ondansetron HCl [Zofran] 4 mg PO BID PRN 09/30/18 05/17/21 History Apixaban [Eliquis] 2.5 mg PO BID 01/11/19 05/17/21 History Insulin Aspart [NovoLOG Flexpen] See Protocol SQ AC-TID 08/02/20 05/17/21 History Insulin Glargine,Hum.rec.anlog 25 unit SQ DAILY 08/02/20 05/17/21 History [Lantus Solostar Pen] Levothyroxine Sodium [Synthroid] 25 mcg PO DAILY 08/02/20 05/17/21 History Metoprolol Succinate (ER) [Toprol 50 mg PO HS #30 tab.er.24h 08/31/20 05/17/21 Rx XL] Pantoprazole [Protonix] 40 mg PO DAILY #30 tab 08/31/20 05/17/21 Rx Dextrose Gel [Glutose 15 Gel] 1 applic MUCOUS MEM DIRECTED 05/17/21 05/17/21 History Dicyclomine [Bentyl] 20 mg PO TID PRN 05/17/21 05/17/21 History Fluticasone/Salmeterol [Advair 1 puff INHALATION RT-BID 05/17/21 05/17/21 History 500-50 Diskus] Furosemide [Lasix] 40 mg PO BID 05/17/21 05/17/21 History Ipratropium/Albuter 20-100Mcg 1 puff INHALATION RT-QID 05/17/21 05/17/21 History [Combivent Respimat 20-100Mcg Inhaler] Lidocaine 5% Patch [Lidoderm] 1 patch TOPICAL DAILY PRN 05/17/21 05/17/21 History Midodrine HCl [ProAmatine] 10 mg PO TID 05/17/21 05/17/21 History Triamcinolone 0.1% Cream [Kenalog 1 applic TOPICAL BID PRN 05/17/21 05/17/21 History 0.1% Cream] allopurinoL [Zyloprim] 200 mg PO DAILY 05/17/21 05/17/21 History predniSONE [Deltasone] 20 mg PO DAILY 05/17/21 05/17/21 History Allergies Allergy/AdvReac Type Severity Reaction Status Date / Time No Known Allergies Allergy Verified 05/17/21 09:51 Physical Exam Vitals: Vital Signs Temp Pulse Pulse Resp BP BP Pulse Ox 05/18/21 08:56 97.5 F L 78 18 98/58 95 05/18/21 08:33 82 05/18/21 08:20 82 05/18/21 05:57 89.9 F L 65 18 100/60 98 05/17/21 20:05 80 05/17/21 20:00 98.2 F 74 18 112/58 98 05/17/21 19:51 82 05/17/21 16:00 82 20 111/71 91 L 05/17/21 11:00 75 20 150/96 92 L Intake and Output 05/17/21 05/18/21 05/18/21 22:59 06:59 14:59 Intake Total 500 Output Total 1600 200 Balance -1100 -200 Intake: Intake, IV Titration 500 Amount Vancomycin 1,750 mg In 500 Sodium Chloride 0.9% 500 ml 500 ml @ 167 mls/hr IVPB Q24H [facility] Rx#: [id number] Output: Urine 1600 200 Other: # Voids 1 Results - Lab Results Most recent lab results Calcium 8.7 mg/dL (8.7-10.3) 05/18/21 05:57 Magnesium 1.4 mg/dL (1.6-2.3) L 05/18/21 08:15 05/18/21 05:57 05/18/21 05:57 Assessment and Plan Plan: Assessment: 1. Acute kidney injury mostly prerenal secondary to cardiorenal syndrome. Improving with diuresis. Creatinine 2.36 on admission and is 2.0 today. 2. Chronic any disease stage IIIB with baseline creatinine 1.5-1.8 secondary to diabetic kidney disease as well as nonrecovered ATN. Patient required temporary dialysis in 2017. 3. Acute on chronic diastolic CHF. 4. Metabolic acidosis secondary to acute kidney injury. Improved. 5. Hyperkalemia secondary to acute kidney injury and metabolic acidosis. Improved. 6. Anemia of chronic kidney disease. 7. Hypomagnesemia from poor intake and diuresis. Plan: Maintain oral Lasix. Check iron studies. Maintain midodrine. Check a.m. cortisol level. Replace magnesium. Continue to monitor renal function and urine output. Repeat UA. Thank you for the consultation. I will continue to follow the patient with you during his hospital stay.
[2021-05-18] MEDS: MAGNESIUM SULFATE-D5W PMX 1 GM in DEXTROSE/WATER 1 100ML.BAG IVPB SCH ×3 (11:01→18:09)
[2021-05-18] MEDS: MORPHINE SULFATE 4 MG/ML SYRINGE IVP PRN (11:03)
[2021-05-18 11:51] LABS: Glucose,Whole Blood 199 mg/dL (75-99)
--- NOTE | 2021-05-18 13:05 | P.CNPUL ---
History of Present Illness Consult date: 05/18/21 Requesting physician: Vel Wilburn Reason for consult: dyspnea, abnormal CXR/CT Chief complaint: Left arm pain, status post fall History of present illness: This is a very pleasant 65-year-old male patient with a history of atrial fibrillation, congestive heart failure, chronic obstructive pulmonary disease oxygen dependent on 4 L at home, diabetes mellitus, DVT, hyperlipidemia, hypertension previous CoVID infection in August 2020. The patient presented to the emergency room yesterday with complaints of increasing shortness of breath. He had noticed increased swelling of his lower extremities. He had also sustained a fall several days ago and was seen at the [place] [facility] and had his left arm splinted for fracture. He has been seen by orthopedics no plans for surgical intervention at this time. He is seen today in consultation on the regular medical floor. He is sitting up in a chair at the bedside. Awake and alert in no acute distress. Echocardiogram revealed preserved left ventricular systolic function with ejection fraction 50-55%. Mild aortic stenosis. Asked x-ray revealed evidence of COPD with some subsegmental atelectasis and mild pulmonary vascular congestion. Blood cultures revealed no growth. White count 11.0. Hemoglobin 7.5. We'll decide 0.3. Sodium 137. Potassium 5.0. Creatinine 2.0. Glucose 199. ProBNP 3940. AST 46. ALT 27. Troponin 0.052, 0.047, 0.046. The patient is seen today in consultation on the regular medical floor. He is currently sitting up in a chair at the bedside. Awake and alert in no acute distress. He states his breathing is about the same and feeling back to his baseline. No worsening shortness of breath, cough or congestion. No fever or chills. No productive sputum. He's been initiated on Symbicort, DuoNeb inhalations, IV Solu-Medrol. He is anticoagulated with Eliquis. He is being treated with vancomycin and ceftriaxone? Review of Systems REVIEW OF SYSTEMS: CONSTITUTIONAL: Recent trip and fall. Denies any recent significant weight loss or weight gain. EYES: Denies change in vision. EARS, NOSE, MOUTH, THROAT: Denies headaches, denies sore throat. CARDIOVASCULAR: Denies chest pain, palpitations or syncopal episodes. RESPIRATORY: Positive for shortness of breath, no cough, congestion or hemoptysis. GASTROINTESTINAL: Denies change in appetite, denies abdominal pain GENITOURINARY: Denies hematuria, denies infections. MUSKULOSKELETAL: Pain in the left upper extremity. INTEGUMENTARY: Denies rash, denies eczema. NEUROLOGICAL: Denies recent memory loss, no recent seizure activity. PSYCHIATRIC: Denies anxiety, denies depression. HEMATOLOGIC/LYMPHATIC: Denies anemia, denies enlarged lymph nodes. Past Medical History Past Medical History: Atrial Fibrillation, Heart Failure, COPD, Diabetes Mellitus, Deep Vein Thrombosis (DVT), GERD/Reflux, Hyperlipidemia, Hypertension, Pneumonia, Renal Disease, Respiratory Disorder, Skin Disorder, Sleep Apnea/CPAP/BIPAP, Vascular Disorder Additional Past Medical History / Comment(s): Pt recently admitted to [facility] on 08/02/20 with chf/acute on chronic renal disease, possible pneumonia. Pt tested covic+ on 08/20/20 at [facility] ER. Other hx: Chronic hypoxic respiratory failure and the patient OXYGEN dependent 5 L, previous history of left-sided pneumothorax requiring a Thoravent insertion, IDDM type II, paroxysmal AFIB, SSS with pacer, nonischemic cardiomyopathy, past alcoholism/DTs, diverticulosis, obstuctive sleep apnea but no Cpap since wt loss, sinusitis, neuropathy bilateral feet, elevated LFTs, BPH, CKD stag III, DVT R leg, hypomagnesemia, hypoalbuminemia, anemia, protein calorie malnutrition, PVD, current sores bilateral feet. History of Any Multi-Drug Resistant Organisms: None Reported Past Surgical History: Appendectomy, Cholecystectomy, Heart Catheterization, Pacemaker Additional Past Surgical History / Comment(s): Partial liver removed d/t adhesions, colonoscopies, bilateral eyes blepharoplasties, pacer Past Anesthesia/Blood Transfusion Reactions: Postoperative Nausea & Vomiting (PONV) Additional Past Anesthesia/Blood Transfusion Reaction / Comment(s): Pt states he has had PONV with gas only. Type of Cardiac Device: Permanent Pacemaker Device Placement Date:: 2017 Past Psychological History: Anxiety, Depression, Panic Disorder Smoking Status: Former smoker Past Alcohol Use History: None Reported Past Drug Use History: None Reported - Past Family History Mother Family Medical History: Thyroid Disorder Additional Family Medical History / Comment(s): . Father Additional Family Medical History / Comment(s): Father of diverticulitis,peritonitis at the age of 35yrs. Medications and Allergies Home Medications Medication Instructions Recorded Confirmed Type Tamsulosin [Flomax] 0.4 mg PO DAILY 06/23/16 05/17/21 History HYDROcodone/APAP 10-325MG [[place] 1 tab PO Q6H PRN 09/06/17 05/17/21 History 10-325] Ondansetron HCl [Zofran] 4 mg PO BID PRN 09/30/18 05/17/21 History Apixaban [Eliquis] 2.5 mg PO BID 01/11/19 05/17/21 History Insulin Aspart [NovoLOG Flexpen] See Protocol SQ AC-TID 08/02/20 05/17/21 History Insulin Glargine,Hum.rec.anlog 25 unit SQ DAILY 08/02/20 05/17/21 History [Lantus Solostar Pen] Levothyroxine Sodium [Synthroid] 25 mcg PO DAILY 08/02/20 05/17/21 History Metoprolol Succinate (ER) [Toprol 50 mg PO HS #30 tab.er.24h 08/31/20 05/17/21 Rx XL] Pantoprazole [Protonix] 40 mg PO DAILY #30 tab 08/31/20 05/17/21 Rx Dextrose Gel [Glutose 15 Gel] 1 applic MUCOUS MEM DIRECTED 05/17/21 05/17/21 History Dicyclomine [Bentyl] 20 mg PO TID PRN 05/17/21 05/17/21 History Fluticasone/Salmeterol [Advair 1 puff INHALATION RT-BID 05/17/21 05/17/21 History 500-50 Diskus] Furosemide [Lasix] 40 mg PO BID 05/17/21 05/17/21 History Ipratropium/Albuter 20-100Mcg 1 puff INHALATION RT-QID 05/17/21 05/17/21 History [Combivent Respimat 20-100Mcg Inhaler] Lidocaine 5% Patch [Lidoderm] 1 patch TOPICAL DAILY PRN 05/17/21 05/17/21 H istory Midodrine HCl [ProAmatine] 10 mg PO TID 05/17/21 05/17/21 History Triamcinolone 0.1% Cream [Kenalog 1 applic TOPICAL BID PRN 05/17/21 05/17/21 History 0.1% Cream] allopurinoL [Zyloprim] 200 mg PO DAILY 05/17/21 05/17/21 History predniSONE [Deltasone] 20 mg PO DAILY 05/17/21 05/17/21 History Allergies Allergy/AdvReac Type Severity Reaction Status Date / Time No Known Allergies Allergy Verified 05/17/21 09:51 Physical Exam Vitals: Vital Signs Temp Pulse Pulse Pulse Resp BP BP 05/18/21 11:59 80 05/18/21 11:50 80 05/18/21 11:07 97.4 F L 93 18 05/18/21 08:56 97.5 F L 78 18 98/58 05/18/21 08:33 82 05/18/21 08:20 82 05/18/21 05:57 89.9 F L 65 18 100/60 05/17/21 20:05 80 05/17/21 20:00 98.2 F 74 18 112/58 05/17/21 19:51 82 05/17/21 16:00 82 20 111/71 BP Pulse Ox 05/18/21 11:59 05/18/21 11:50 05/18/21 11:07 99/59 93 L 05/18/21 08:56 95 05/18/21 08:33 05/18/21 08:20 05/18/21 05:57 98 05/17/21 20:05 05/17/21 20:00 98 05/17/21 19:51 05/17/21 16:00 91 L Intake and Output 05/17/21 05/18/21 05/18/21 22:59 06:59 14:59 Intake Total 500 Output Total 1600 200 Balance -1100 -200 Intake: Intake, IV Titration 500 Amount Vancomycin 1,750 mg In 500 Sodium Chloride 0.9% 500 ml 500 ml @ 167 mls/hr IVPB Q24H [facility] Rx#: [id number] Output: Urine 1600 200 Other: # Voids 1 GENERAL EXAM: Alert, pleasant 65-year-old gentleman, appears older than stated age, on 4 L nasal cannula which is his home setting, comfortable in no apparent distress. HEAD: Normocephalic. EYES: Normal reaction of pupils, equal size. NOSE: Clear with pink turbinates. THROAT: No erythema or exudates. NECK: No masses, no JVD. CHEST: No chest wall deformity. LUNGS: Equal air entry with faint end expiratory wheeze, diminished. CVS: S1 and S2 normal with no audible murmur, regular rhythm. ABDOMEN: No hepatosplenomegaly, normal bowel sounds, no guarding or rigidity. SPINE: Kyphoscoliosis SKIN: Ecchymosis and bruising of the left upper extremity CENTRAL NERVOUS SYSTEM: No focal deficits, tone is normal in all 4 extremities. EXTREMITIES: Left upper extremity in Dany wrap. There is 1+peripheral edema. No clubbing, no cyanosis. Peripheral pulses are intact. Results - Laboratory Findings CBC and BMP: 05/18/21 05:57 05/18/21 05:57 PT/INR, D-dimer PT 11.3 sec (9.0-12.0) 05/17/21 06:30 INR 1.1 (<1.2) 05/17/21 06:30 Abnormal lab findings: Abnormal Labs 05/17/21 05/17/21 05/17/21 06:30 06:30 06:30 WBC 19.7 H RBC 2.55 L Hgb 8.2 L Hct 26.8 L MCV 105.0 H MCHC 30.5 L Neutrophils # 18.3 H Lymphocytes # 0.4 L Macrocytosis APTT 21.7 L Sodium 132 L Potassium 5.4 H Chloride 94 L Carbon Dioxide BUN 74 H Creatinine 2.36 H Est GFR (CKD-EPI)AfAm Est GFR (CKD-EPI)NonAf BUN/Creatinine Ratio Glucose 152 H POC Glucose (mg/dL) Plasma Lactic Acid Stone Magnesium 1.1 L Troponin I Total Protein 5.9 L Albumin 3.1 L Urine Protein Urine Ketones Urine Blood Urine RBC Urine Bacteria Urine Mucus 05/17/21 05/17/21 05/17/21 06:30 07:30 08:30 WBC RBC Hgb Hct MCV MCHC Neutrophils # Lymphocytes # Macrocytosis APTT Sodium Potassium Chloride Carbon Dioxide BUN Creatinine Est GFR (CKD-EPI)AfAm Est GFR (CKD-EPI)NonAf BUN/Creatinine Ratio Glucose POC Glucose (mg/dL) Plasma Lactic Acid Stone 0.6 L Magnesium Troponin I 0.052 H* Total Protein Albumin Urine Protein Trace H Urine Ketones 1+ H Urine Blood Moderate H Urine RBC 30 H Urine Bacteria Rare H Urine Mucus Rare H 05/17/21 05/17/21 05/17/21 08:37 11:19 11:19 WBC 19.9 H RBC 2.50 L Hgb 8.2 L Hct 27.6 L MCV 110.4 H D MCHC 29.8 L Neutrophils # 18.2 H Lymphocytes # 0.5 L Macrocytosis Marked A APTT Sodium Potassium Chloride Carbon Dioxide BUN Creatinine Est GFR (CKD-EPI)AfAm Est GFR (CKD-EPI)NonAf BUN/Creatinine Ratio Glucose POC Glucose (mg/dL) Plasma Lactic Acid Stone Magnesium Troponin I 0.047 H* 0.046 H* Total Protein Albumin Urine Protein Urine Ketones Urine Blood Urine RBC Urine Bacteria Urine Mucus 05/17/21 05/17/21 05/18/21 11:19 21:33 05:57 WBC 11.0 H RBC 2.30 L Hgb 7.5 L Hct 24.4 L MCV 105.8 H MCHC 30.8 L Neutrophils # 10.4 H Lymphocytes # 0.3 L Macrocytosis APTT Sodium 133 L Potassium 5.7 H Chloride Carbon Dioxide 20 L BUN 76 H Creatinine 2.18 H Est GFR (CKD-EPI)AfAm Est GFR (CKD-EPI)NonAf BUN/Creatinine Ratio Glucose 138 H POC Glucose (mg/dL) 116 H Plasma Lactic Acid Stone Magnesium Troponin I Total Protein 5.5 L Albumin 2.8 L Urine Protein Urine Ketones Urine Blood Urine RBC Urine Bacteria Urine Mucus 05/18/21 05/18/21 05/18/21 05:57 08:15 11:48 WBC RBC Hgb Hct MCV MCHC Neutrophils # Lymphocytes # Macrocytosis APTT Sodium Potassium Chloride Carbon Dioxide BUN 60.0 H Creatinine 2.0 H Est GFR (CKD-EPI)AfAm 39.7 L Est GFR (CKD-EPI)NonAf 34.3 L BUN/Creatinine Ratio 30.00 H Glucose POC Glucose (mg/dL) 199 H Plasma Lactic Acid Stone Magnesium 1.4 L Troponin I Total Protein Albumin Urine Protein Urine Ketones Urine Blood Urine RBC Urine Bacteria Urine Mucus - Diagnostic Findings Chest x-ray: image reviewed Assessment and Plan Assessment: 1 Acute on chronic hypoxic respiratory failure secondary to mild exacerbation of COPD 2 Recent fall with comminuted slightly impacted fracture to the distal metaphysis with large transverse component and likely intra-articular extension of the left upper extremity 3 Paroxysmal atrial fibrillation, anticoagulated with Eliquis 4 Troponin leak 5 Former smoker 6 Diabetes mellitus 7 Hyperlipidemia 8 Hypertension 9 Chronic kidney disease stage III 10 Prior history of alcoholism 11 History of previous left-sided pneumothorax requiring ThoraVent Plan: The patient was seen and evaluated Chest x-ray and labs reviewed Stable and on his normal home oxygen Discontinue IV Solu-Medrol Continue bronchodilators Increase his activity as tolerated We will continue to follow and make further recommendations based on his clinical status I, the cosigning physician, performed a history & physical examination of the patient. Lungs sounds with faint end expiratory wheeze, diminished. Maintaining O2 saturations in the 90s on 4 L/m per nasal cannula. I discussed the assessment and plan of care with my nurse practitioner, Ella Hair. I attest to the above consultation as dictated by her. Time with Patient: Greater than 30
--- NOTE | 2021-05-18 13:48 | P.PN ---
Subjective Progress Note Date: 05/18/21 HISTORY OF PRESENT ILLNESS: This is a 65-year-old male with a past medical history significant for paroxysmal atrial fibrillation, sick sinus syndrome with permanent pacemaker insertion, nonischemic myopathy, chronic systolic heart failure, obstructive sleep apnea, COPD, hypertension, hyperlipidemia, chronic kidney disease, and obstructive sleep apnea. Patient follows in the office with Dr. Landeros. We have been asked to see the patient in consultation for CHF, abnormal troponins. Patient examined at the bedside in the emergency room. Patient presented to the hospital due to SOB per the ER physician notes. However, when talking to the patient he denies having any shortness of breath. He denies chest pain or pressure. Patient recently fell and was diagnosed with a left arm fracture. Patient denies any chest pain or pressure. Vital signs are stable. EKG reveals sinus mechanism. Right bundle branch block. Left fasciular block. Chest xray: Subsegmental lower lobe atelectasis or early infiltrate. Laboratory data: WBC 19.7. Hemoglobin 8.2. Platelet count 188. Sodium 132. Potassium 5.4. BUN 74. Creatinine 2.36. Troponin 0.052. 0.047. ProBNP 3970. Current home cardiac medications include Eliquis 2.5 mg twice a day, metoprolol succinate 50 mg at night, Midodrine 10mg TID Most recent echocardiogram obtained in July 2020 revealed ejection fraction 30-35%, moderate mitral regurgitation, mild tricuspid regurgitation, and borderline pulmonary hypertension. 05/18/2021 Patient examined this morning at the bedside. Patient denies chest pain or pressure. He denies shortness of breath. Patient was seen by orthopedics with no plan for surgical intervention. Echocardiogram completed revealing ejection fraction 50-55%, mild aortic stenosis, mild mitral regurgitation, mild tricuspid regurgitation PHYSICAL EXAM: VITAL SIGNS: Reviewed. GENERAL: Well-developed in no acute distress. HEENT: Head is normocephalic. Pupils are equal, round. Sclerae anicteric. Mucous membranes of the mouth are moist. Neck supple. No JVD or thyromegaly LUNGS: Respirations even and unlabored. Lungs diminished with scattered rhonchi. Frequent coughing noted. HEART: Regular rate and rhythm. S1 and S2 heard. Systolic murmur noted. ABDOMEN: Soft. Nondistended. Nontender. EXTREMITIES: Normal range of motion. No clubbing or cyanosis. Peripheral pulses intact. Bilateral lower extremity edema with dry flaky skin. Left arm in a splint with swelling and bruising noted. NEUROLOGIC: Awake and alert. Oriented x 3. ASSESSMENT: Possible pneumonia Leukocytosis Left arm fracture Paroxysmal atrial fibrillation, on Eliquis Chronic kidney disease Abnormal troponins, not suggestive of acute coronary syndrome COPD History of nonischemic cardiomyopathy Hypertension Chronic systolic congestive heart failure Hypertension Hyperlipidemia Diabetes mellitus PLAN: Continue current cardiac medications Resume Eliquis Patient is currently stable from a cardiac standpoint We will sign off. Please reconsult if needed. Nurse practitioner note has been reviewed by physician. Signing provider agrees with the documented findings, assessment, and plan of care. Objective - Vital Signs Vital signs: Vital Signs Temp 97.4 F L 05/18/21 11:07 Pulse 80 05/18/21 11:59 Resp 18 05/18/21 11:07 BP 99/59 05/18/21 11:07 Pulse Ox 93 L 05/18/21 11:07 Intake & Output 05/17/21 05/18/21 05/18/21 18:59 06:59 18:59 Intake Total 500 Output Total 1600 200 Balance -1100 -200 Weight 104.326 kg Intake: Intake, IV Titration 500 Amount Vancomycin 1,750 mg In 500 Sodium Chloride 0.9% 500 ml 500 ml @ 167 mls/hr IVPB Q24H [facility] Rx#: [id number] Output: Urine 1600 200 Other: # Voids 1 - Labs CBC & Chem 7: 05/18/21 05:57 05/18/21 05:57 Labs: Abnormal Lab Results - Last 24 Hours (Table) 05/17/21 05/17/21 05/18/21 Range/Units 11:19 21:33 05:57 WBC 11.0 H (3.8-10.6) k/uL RBC 2.30 L (4.30-5.90) m/uL Hgb 7.5 L (13.0-17.5) gm/dL Hct 24.4 L (39.0-53.0) % MCV 105.8 H (80.0-100.0) fL MCHC 30.8 L (31.0-37.0) g/dL Neutrophils # 18.2 H 10.4 H (1.3-7.7) k/uL Lymphocytes # 0.5 L 0.3 L (1.0-4.8) k/uL BUN (9.0-27.0) mg/dL Creatinine (0.6-1.5) mg/dL Est GFR (CKD-EPI)AfAm (60.0-200.0) Est GFR (CKD-EPI)NonAf (60.0-200.0) BUN/Creatinine Ratio (12.00-20.00) Ratio POC Glucose (mg/dL) 116 H (75-99) mg/dL Magnesium (1.6-2.3) mg/dL 05/18/21 05/18/21 05/18/21 Range/Units 05:57 08:15 11:48 WBC (3.8-10.6) k/uL RBC (4.30-5.90) m/uL Hgb (13.0-17.5) gm/dL Hct (39.0-53.0) % MCV (80.0-100.0) fL MCHC (31.0-37.0) g/dL Neutrophils # (1.3-7.7) k/uL Lymphocytes # (1.0-4.8) k/uL BUN 60.0 H (9.0-27.0) mg/dL Creatinine 2.0 H (0.6-1.5) mg/dL Est GFR (CKD-EPI)AfAm 39.7 L (60.0-200.0) Est GFR (CKD-EPI)NonAf 34.3 L (60.0-200.0) BUN/Creatinine Ratio 30.00 H (12.00-20.00) Ratio POC Glucose (mg/dL) 199 H (75-99) mg/dL Magnesium 1.4 L (1.6-2.3) mg/dL Microbiology - Last 24 Hours (Table) 05/17/21 07:45 Blood Culture Gram Stain - Preliminary Blood 05/17/21 07:45 Blood Culture - Final Blood 05/17/21 07:30 Blood Culture - Final Blood
--- NOTE | 2021-05-18 14:42 | P.PN ---
Subjective Progress Note Date: 05/18/21 This patient is a 65-year-old male past medical history of atrial fibrillation on Eliquis, heart failure, COPD, hypertension, hyperlipidemia, chronic kidney disease that presented to [facility] emergency department 05/17/21 with complaints of shortness of breath. Upon presentation to the emergency [facility], WBC was elevated at 19.7, chest x-ray showed possible pneumonia, and troponins were also elevated. X-rays revealed a left wrist fracture. Patient was admitted under the care of internal medicine and a consult to cardiology. Orthopedics was consulted in regards to the patient's left wrist fracture. Patient is seen and examined bedside in the emergency department this afternoon. His daughter is also bedside. Patient states he injured the wrist about a week ago. He tripped over a rug and fell at home. He states he was seen by his PCP in [place] last Monday, x-rays were taken and patient was told he sustained a fracture. He was placed into a splint. Patient's daughter states he removed the splint shortly after and has been without a splint or brace on all week. He notes pain in the left wrist and elbow. He denies additional complaints or concerns. He denies numbness or tingling of the left upper extremity. 05/18/21: Patient is seen and examined bedside. He has been keeping the LUE elevated and he has noticed an improvement in swelling. He denies numbness or tingling. No new complaints. Objective - Vital Signs Vital signs: Vital Signs Temp 97.4 F L 05/18/21 11:07 Pulse 80 05/18/21 11:59 Resp 18 05/18/21 11:07 BP 99/59 05/18/21 11:07 Pulse Ox 93 L 05/18/21 11:07 Intake & Output 05/17/21 05/18/21 05/18/21 18:59 06:59 18:59 Intake Total 500 Output Total 1600 200 Balance -1100 -200 Weight 104.326 kg Intake: Intake, IV Titration 500 Amount Vancomycin 1,750 mg In 500 Sodium Chloride 0.9% 500 ml 500 ml @ 167 mls/hr IVPB Q24H [facility] Rx#: [id number] Output: Urine 1600 200 Other: # Voids 1 - Exam On examination, patient is sitting up in bed in no acute distress. On inspection of the left upper extremity, there is a short arm splint in place that appears to be well-fitting. There is moderate swelling of the elbow. The visible portion of the hand is diffusely swollen and there is ecchymosis of the fingers and hand. There is evolving ecchymosis of the proximal arm near the elbow. Minimal pain with passive [id number] of the fingers. Minimal pain with passive [id number] of the left elbow.There is no pain with palpation or passive range of motion of the left shoulder. Motor and sensory function is intact of the left upper extremity. There is ecchymosis of the dorsal fingers. The fingers are warm and well-perfused with brisk capillary refill distally. - Labs CBC & Chem 7: 05/18/21 05:57 05/18/21 05:57 Labs: Abnormal Lab Results - Last 24 Hours (Table) 05/17/21 05/18/21 05/18/21 Range/Units 21:33 05:57 05:57 WBC 11.0 H (3.8-10.6) k/uL RBC 2.30 L (4.30-5.90) m/uL Hgb 7.5 L (13.0-17.5) gm/dL Hct 24.4 L (39.0-53.0) % MCV 105.8 H (80.0-100.0) fL MCHC 30.8 L (31.0-37.0) g/dL Neutrophils # 10.4 H (1.3-7.7) k/uL Lymphocytes # 0.3 L (1.0-4.8) k/uL BUN 60.0 H (9.0-27.0) mg/dL Creatinine 2.0 H (0.6-1.5) mg/dL Est GFR (CKD-EPI)AfAm 39.7 L (60.0-200.0) Est GFR (CKD-EPI)NonAf 34.3 L (60.0-200.0) BUN/Creatinine Ratio 30.00 H (12.00-20.00) Ratio POC Glucose (mg/dL) 116 H (75-99) mg/dL Magnesium (1.6-2.3) mg/dL 05/18/21 05/18/21 Range/Units 08:15 11:48 WBC (3.8-10.6) k/uL RBC (4.30-5.90) m/uL Hgb (13.0-17.5) gm/dL Hct (39.0-53.0) % MCV (80.0-100.0) fL MCHC (31.0-37.0) g/dL Neutrophils # (1.3-7.7) k/uL Lymphocytes # (1.0-4.8) k/uL BUN (9.0-27.0) mg/dL Creatinine (0.6-1.5) mg/dL Est GFR (CKD-EPI)AfAm (60.0-200.0) Est GFR (CKD-EPI)NonAf (60.0-200.0) BUN/Creatinine Ratio (12.00-20.00) Ratio POC Glucose (mg/dL) 199 H (75-99) mg/dL Magnesium 1.4 L (1.6-2.3) mg/dL Microbiology - Last 24 Hours (Table) 05/17/21 07:45 Blood Culture Gram Stain - Preliminary Blood 05/17/21 07:45 Blood Culture - Final Blood 05/17/21 07:30 Blood Culture - Final Blood Assessment and Plan Assessment: Left distal radius fracture Plan: - We have no acute surgical intervention planned at this time. - Keep short arm splint in place left upper extremity. Non-weight bearing left upper extremity. - Aggressive elevation LUE for swelling control. May perform gentle ROM of the left fingers as tolerated. - We will follow peripherally and make recommendations as needed.
[2021-05-18 17:20] LABS: Glucose,Whole Blood 404 mg/dL (75-99)
[2021-05-18 18:46] LABS: % Iron Saturation 4.39 (15.00-50.00)
[2021-05-18 19:33] LABS: Glucose,Whole Blood 450 mg/dL (75-99)
[2021-05-18 20:00] LABS: Appearance,Urine Clear (Clear); Bilirubin,Urine Negative (Negative); Blood,Urine Trace (Negative); Color,Urine Light Yellow; Glucose,Urine (UA) 3+ (Negative); Ketones,Urine Trace (Negative); Leukocyte Esterase,Urine Negative (Negative); Mucus,Urine Rare /hpf; Nitrite,Urine Negative (Negative); Protein,Urine Negative (Negative); RBC,Urine 3 /hpf (0-5); Urobilinogen,Urine <2.0 mg/dL (<2.0); WBC,Urine <1 /hpf (0-5)
[2021-05-18] MEDS ORDERED: VANCOMYCIN 1,750 MG in SODIUM CHLORIDE 0.9% 500 ML 500 ML IVPB SCH (20:00)
[2021-05-18 20:41] LABS: Glucose,Whole Blood 471 mg/dL (75-99)
[2021-05-18] MEDS: METOPROLOL SUCCINATE (ER) 50 MG TAB.ER.24H PO SCH (21:02)
[2021-05-18 21:59] LABS: Glucose,Whole Blood 436 mg/dL (75-99)
[2021-05-18 23:00] LABS: Glucose,Whole Blood 427 mg/dL (75-99)
[2021-05-18] MEDS ORDERED: INSULIN REGULAR BOLUS (FROM DRIP BAG) IV ONE (23:03)
--- NOTE | 2021-05-18 23:25 | P.PN ---
Subjective Progress Note Date: 05/18/21 This is a 65-year-old male who was recently admitted with increasing shortness of breath and is being closely monitored. Cardiology has evaluated the patient along with orthopedics and no plans for surgical intervention of the left wrist fracture s/p fall a few weeks ago. Patient to continue with sling and splint and continue to elevate. Pulmonary also following for possible pneumonia and will continue with breathing inhalational treatments and oxygen supplementation. Patient is continued on oral lasix and nephrology following as well for acute kidney injury. Magnesium low and will replace per protocol and repeat am labs. Patient also continues on ceftriaxone and vancomycin for possible pneumonia. Steroids discontinued. Patient blood sugars have been slightly elevated and will continue with sliding scale and long acting and monitor closely. Patient is weak and PT/OT following recommending [facility] for continued strength and mobility. Social work consulted. Labs: WBC is 11.0, hemoglobin is 7.5, platelets are 159, sodium is 137, potassium 5.0, BUN 60.0, creatinine 2.0, calcium 8.7, magnesium 1.4 Review of systems: unable to obtain as patient is lethargic and confused. All medications have been reviewed Active Medications Hydrocodone Bitart/Acetaminophen (Hydrocodone/Apap 5-325mg 1 Each Tab) 1 each PO Q4HR PRN PRN Reason: Pain Albuterol/Ipratropium (Ipratropium-Albuterol 3 Ml Neb) 3 ml INHALATION RT-QID [facility] Last Admin: 05/18/21 11:49 Dose: 3 ml Documented by: Albuterol/Ipratropium (Ipratropium-Albuterol 3 Ml Neb) 3 ml INHALATION RT-QID PRN PRN Reason: Shortness Of Breath Or Wheezing Allopurinol (Allopurinol 100 Mg Tab) 200 mg PO DAILY [facility] Last Admin: 05/18/21 08:23 Dose: 200 mg Documented by: Apixaban (Apixaban 2.5 Mg Tablet) 2.5 mg PO BID [facility]; Protocol Last Admin: 05/18/21 08:23 Dose: 2.5 mg Documented by: Budesonide/Formoterol Fumarate (Symbicort 160-4.5 Mcg Inhaler) 2 puff INHALATION RT-BID [facility] Last Admin: 05/18/21 08:26 Dose: 2 puff Documented by: Dicyclomine HCl (Dicyclomine 10 Mg Cap) 20 mg PO TID PRN PRN Reason: IBS Furosemide (Furosemide 40 Mg Tab) 40 mg PO BID@0900,1600 [facility] Last Admin: 05/18/21 08:23 Dose: 40 mg Documented by: Ceftriaxone Sodium 1 gm/ (Sodium Chloride) 50 mls @ 100 mls/hr IVPB Q24HR [facility] Last Admin: 05/18/21 08:23 Dose: 100 mls/hr Documented by: Vancomycin HCl 1,750 mg/ (Sodium Chloride) 500 mls @ 167 mls/hr IVPB Q24H [facility] Insulin Aspart (Insulin Aspart (Novolog) 100 Unit/Ml Vial) 0 unit SQ ACHS [facility]; Protocol Last Admin: 05/18/21 12:54 Dose: 3 unit Documented by: Insulin Detemir (Insulin Detemir (Levemir) 100 Unit/Ml Syr) 25 unit SQ DAILY@0700 [facility] Last Admin: 05/18/21 07:22 Dose: Not Given Documented by: Levothyroxine Sodium (Levothyroxine 25 Mcg Tab) 25 mcg PO DAILY@0630 [facility] Last Admin: 05/18/21 06:23 Dose: 25 mcg Documented by: Metoprolol Succinate (Metoprolol Succinate (Er) 50 Mg Tab.Er.24h) 50 mg PO HS [facility] Last Admin: 05/17/21 20:52 Dose: 50 mg Documented by: Midodrine (Midodrine 5 Mg Tab) 10 mg PO AC-TID [facility] Last Admin: 05/18/21 12:55 Dose: 10 mg Documented by: Miscellaneous Information (Pneumonia Protocol Utilized 1 Each Mis) 1 each PO ONCE PRN PRN Reason: Per Protocol Miscellaneous Information (Magnesium Replacement Protocol 1 Each Misc) 1 each MISCELLANE DAILY PRN; Protocol PRN Reason: Per Protocol Morphine Sulfate (Morphine Sulfate 4 Mg/Ml Syringe) 4 mg IVP Q4HR PRN PRN Reason: Pain Last Admin: 05/18/21 11:03 Dose: 4 mg Documented by: Ondansetron HCl (Ondansetron 4 Mg Tab) 4 mg PO BID PRN PRN Reason: Nausea Pantoprazole Sodium (Pantoprazole 40 Mg Tablet) 40 mg PO DAILY@0730 [facility] Last Admin: 05/18/21 08:23 Dose: 40 mg Documented by: Tamsulosin HCl (Tamsulosin 0.4 Mg Cap.Er.24h) 0.4 mg PO DAILY [facility] Last Admin: 05/18/21 08:23 Dose: 0.4 mg Documented by: Physical Exam: Gen: This is a 65-year-old male who is lethargic but arousable, confused, well- developed, well-nourished. Temp is 97.4 F, pulse is 93, respirations are 18, blood pressure is 99/59, oxygen saturation is 93% on 4 liters via nasal cannula HEENT: Head is atraumatic, normocephalic. Pupils equal, round. Sclerae is anicteric. NECK: Supple. No JVD. No lymphadenopathy. No thyromegaly. LUNGS: Breath sounds diminished with some mild scattered rhonchi and minimal expiratory wheezing noted. No intercostal retractions. HEART: S1, S2 are muffled ABDOMEN: Soft. Bowel sounds are present. No masses. No tenderness. EXTREMITIES: No pedal edema. No calf tenderness. left splint noted NEUROLOGICAL: Patient is asleep but arousable, confused, diffusely weak . Assessment: Shortness of breath, possibly multifactorial with chronic obstructive pulmonary disease acute exacerbation with acute purulent tracheobronchitis, early pneumo jelena and as well as congestive heart failure, acute exacerbation with acute hypoxic respiratory failure Chronic kidney disease stage III Hyponatremia Hyperkalemia Hypomagnesemia Troponin 0.05, indeterminate possibly myocardial infarction or secondary to respiratory difficulties Anemia, macrocytic Increased WBC Left arm fracture recently and fall Gait dysfunction Change in mental status, acute metabolic encephalopathy, multifactorial History of atrial fibrillation, chronic History of congestive heart failure History of COPD Diabetes mellitus type 2, uncontrolled with hyperglycemia History of DVT Gastroesophageal reflux disease Hyperlipidemia history of pneumonia History of respiratory disorder history of sleep apnea History of recent Covid positivity history of covid infection last year history of chronic hypoxic respiratory failure on 5 L via nasal cannula History of sick sinus syndrome history of appendectomy History of cholecystectomy History of anxiety, depression, panic disorder Plan: Recommend to continue with current medications, management, and symptomatic treatment. Orthopedics evaluated the patient and no plans for surgical intervention at this time and continue with conservative treatment and splint to the left upper extremity. Cardiology recommends resuming Eliquis and will follow as needed. Nephrology and pulmonary following. Patient is continued on vancomycin and ceftriaxone. IV steroids discontinued. Blood sugars elevated and recommend close monitoring and continue with sliding scale and long acting. IF blood sugars continue to be elevated, consider insulin drip for close monitoring and control. Patient continues on oral Lasix and nephrology following closely. Magnesium low at 1.4 and will replace and repeat am labs. Social work following and ECF being planned. Due to multiple complex medical issues prognosis is guarded. Possible discharge in 24-48 hours. Objective - Vital Signs Vital signs: Vital Signs Temp 97.4 F L 05/18/21 11:07 Pulse 80 05/18/21 11:59 Resp 18 05/18/21 11:07 BP 99/59 05/18/21 11:07 Pulse Ox 93 L 05/18/21 11:07 Intake & Output 05/17/21 05/18/21 05/18/21 18:59 06:59 18:59 Intake Total 500 Output Total 1600 200 Balance -1100 -200 Weight 104.326 kg Intake: Intake, IV Titration 500 Amount Vancomycin 1,750 mg In 500 Sodium Chloride 0.9% 500 ml 500 ml @ 167 mls/hr IVPB Q24H [facility] Rx#: [id number] Output: Urine 1600 200 Other: # Voids 1 - Labs CBC & Chem 7: 05/18/21 05:57 05/18/21 05:57 Labs: Abnormal Lab Results - Last 24 Hours (Table) 05/17/21 05/18/21 05/18/21 Range/Units 21:33 05:57 05:57 WBC 11.0 H (3.8-10.6) k/uL RBC 2.30 L (4.30-5.90) m/uL Hgb 7.5 L (13.0-17.5) gm/dL Hct 24.4 L (39.0-53.0) % MCV 105.8 H (80.0-100.0) fL MCHC 30.8 L (31.0-37.0) g/dL Neutrophils # 10.4 H (1.3-7.7) k/uL Lymphocytes # 0.3 L (1.0-4.8) k/uL BUN 60.0 H (9.0-27.0) mg/dL Creatinine 2.0 H (0.6-1.5) mg/dL Est GFR (CKD-EPI)AfAm 39.7 L (60.0-200.0) Est GFR (CKD-EPI)NonAf 34.3 L (60.0-200.0) BUN/Creatinine Ratio 30.00 H (12.00-20.00) Ratio POC Glucose (mg/dL) 116 H (75-99) mg/dL Magnesium (1.6-2.3) mg/dL 05/18/21 05/18/21 Range/Units 08:15 11:48 WBC (3.8-10.6) k/uL RBC (4.30-5.90) m/uL Hgb (13.0-17.5) gm/dL Hct (39.0-53.0) % MCV (80.0-100.0) fL MCHC (31.0-37.0) g/dL Neutrophils # (1.3-7.7) k/uL Lymphocytes # (1.0-4.8) k/uL BUN (9.0-27.0) mg/dL Creatinine (0.6-1.5) mg/dL Est GFR (CKD-EPI)AfAm (60.0-200.0) Est GFR (CKD-EPI)NonAf (60.0-200.0) BUN/Creatinine Ratio (12.00-20.00) Ratio POC Glucose (mg/dL) 199 H (75-99) mg/dL Magnesium 1.4 L (1.6-2.3) mg/dL Microbiology - Last 24 Hours (Table) 05/17/21 07:45 Blood Culture Gram Stain - Preliminary Blood 05/17/21 07:45 Blood Culture - Final Blood 05/17/21 07:30 Blood Culture - Final Blood
--- NOTE | 2021-05-19 00:12 | P.CONS ---
History of Present Illness - Reason for Consult Consult date: 05/18/21 bacteremia Requesting physician: Vel Wilburn - Chief Complaint weakness and shortness of breath x days - History of Present Illness History of present illness : Patient is a 65-year-old male presented to the hospital yesterday morning for evaluation of increasing shortness of breath that has been progressively getting worse over the last few days patient apparently also have a fall several days ago [facility] did have splinting for the left arm fracture and was supposed to follow-up with orthopedics with the patient has not done patient he denies having any fever or any chills, has been complaining of pain to the left elbow more for the leaking 4-5. No radiation patient denies having any chest pain no cough no abdominal pain or diarrhea patient on presentation to the hospital was afebrile mild hypoxic requiring supplemental oxygen UA has been negative patient did have white count of 19 point 7 repeat is now 1000 creatinine has been elevated but trending down liver enzymes are normal chen PCR was negative patient did have a chest x-ray subsegmental atelectasis or early infiltrate correlate clinically patient did have a recent x-ray comminuted slightly impacted fracture distal metaphysis with large transverse component likely intra-articular extension for the patient has been evaluated by orthopedics patient did have blood cultures on ischemia positive with gram-positive cocci patient was started on vancomycin infectious disease was consulted for further management Review of system: CONSTITUTIONAL: Positive for weakness denies high-grade fever. EYES: No complaint. ENT: No complaint. RESPIRATORY: As per history of present illness. CARDIOVASCULAR: No complaint. GENITOURINARY: No complaint. GASTROINTESTINAL: No complaint. MUSCULOSKELETAL: As per history of present illness. INTEGUMENTARY: No complaint. PSYCHOLOGIC: No complaint. ENDOCRINE: No complaint. NEUROLOGIC: No complaint. Past medical history : Reviewed, documented below Past surgical history : Reviewed, documented below Social history: Reviewed, documented below Medications: Reviewed, as documented below EXAMINATION: Vital sigans= Reviewed and documented below GENERAL DESCRIPTION: Middle-aged male up in the chair, no distress. No tachypnea or accessory muscle of respiration use. HEENT: Shows Pallor , no scleral icterus. Oral mucous membrane is dry. NECK: Trachea central, no thyromegaly. LUNGS: Unlabored breathing. Coarse breath sounds bilaterally. No wheeze or crackle. HEART: S1, S2, regular rate and rhythm. ABDOMEN: Soft, no tenderness , guarding or rigidity EXTREMITIES: Left arm is currently splinted noted which was noticed. SKIN: No rash, no masses palpable. NEUROLOGICAL: The patient is awake, alert, oriented x3, mood and affect normal. LABS AND RADIOLOGY: Reviewed results see below Assessment : 1-Patient with gram-positive bacteremia in this patient admitted to the hospital with increasing shortness of breath in this patient also have a history of fall with left upper arm fracture with a source of this bacteremia possible skin and soft tissue question of real pathogen versus contaminant 2-patient with renal insufficiency and high risk of nephrotoxicity Plan: 1-blood culture repeat to document clearance of bacteremia 2-May continue vancomycin while waiting for the final ID sensitive this pathogen 3-check inflammatory markers We will follow on clinical condition and cultures to further adjust medication if needed Thank you for this consultation we will follow the patient along with you Past Medical History Past Medical History: Atrial Fibrillation, Heart Failure, COPD, Diabetes Mellitus, Deep Vein Thrombosis (DVT), GERD/Reflux, Hyperlipidemia, Hypertension, Pneumonia, Renal Disease, Respiratory Disorder, Skin Disorder, Sleep Apnea/CPAP/BIPAP, Vascular Disorder Additional Past Medical History / Comment(s): Pt recently admitted to [facility] on 08/02/20 with chf/acute on chronic renal disease, possible pneumonia. Pt tested covic+ on 08/20/20 at [facility] ER. Other hx: Chronic hypoxic respiratory failure and the patient OXYGEN dependent 5 L, previous history of left-sided pneumothorax requiring a Thoravent insertion, IDDM type II, paroxysmal AFIB, SSS with pacer, nonischemic cardiomyopathy, past alcoholism/DTs, diverticulosis, obs tuctive sleep apnea but no Cpap since wt loss, sinusitis, neuropathy bilateral feet, elevated LFTs, BPH, CKD stag III, DVT R leg, hypomagnesemia, hypoalbuminemia, anemia, protein calorie malnutrition, PVD, current sores bilateral feet. History of Any Multi-Drug Resistant Organisms: None Reported Past Surgical History: Appendectomy, Cholecystectomy, Heart Catheterization, Pacemaker Additional Past Surgical History / Comment(s): Partial liver removed d/t adhesions, colonoscopies, bilateral eyes blepharoplasties, pacer Past Anesthesia/Blood Transfusion Reactions: Postoperative Nausea & Vomiting ( PONV) Additional Past Anesthesia/Blood Transfusion Reaction / Comm: Pt states he has had PONV with gas only. Type of Cardiac Device: Permanent Pacemaker Device Placement Date:: 2017 Past Psychological History: Anxiety, Depression, Panic Disorder Smoking Status: Former smoker Past Alcohol Use History: None Reported Past Drug Use History: None Reported - Past Family History Mother Family Medical History: Thyroid Disorder Additional Family Medical History / Comment(s): . Father Additional Family Medical History / Comment(s): Father of diverticulitis,peritonitis at the age of 35yrs. Medications and Allergies Home Medications Medication Instructions Recorded Confirmed Type Tamsulosin [Flomax] 0.4 mg PO DAILY 06/23/16 05/17/21 History HYDROcodone/APAP 10-325MG [Warba 1 tab PO Q6H PRN 09/06/17 05/17/21 History 10-325] Ondansetron HCl [Zofran] 4 mg PO BID PRN 09/30/18 05/17/21 History Apixaban [Eliquis] 2.5 mg PO BID 01/11/19 05/17/21 History Insulin Aspart [NovoLOG Flexpen] See Protocol SQ AC-TID 08/02/20 05/17/21 History Insulin Glargine,Hum.rec.anlog 25 unit SQ DAILY 08/02/20 05/17/21 History [Lantus Solostar Pen] Levothyroxine Sodium [Synthroid] 25 mcg PO DAILY 08/02/20 05/17/21 History Metoprolol Succinate (ER) [Toprol 50 mg PO HS #30 tab.er.24h 08/31/20 05/17/21 Rx XL] Pantoprazole [Protonix] 40 mg PO DAILY #30 tab 08/31/20 05/17/21 Rx Dextrose Gel [Glutose 15 Gel] 1 applic MUCOUS MEM DIRECTED 05/17/21 05/17/21 History Dicyclomine [Bentyl] 20 mg PO TID PRN 05/17/21 05/17/21 History Fluticasone/Salmeterol [Advair 1 puff INHALATION RT-BID 05/17/21 05/17/21 History 500-50 Diskus] Furosemide [Lasix] 40 mg PO BID 05/17/21 05/17/21 History Ipratropium/Albuter 20-100Mcg 1 puff INHALATION RT-QID 05/17/21 05/17/21 History [Combivent Respimat 20-100Mcg Inhaler] Lidocaine 5% Patch [Lidoderm] 1 patch TOPICAL DAILY PRN 05/17/21 05/17/21 History Midodrine HCl [ProAmatine] 10 mg PO TID 05/17/21 05/17/21 History Triamcinolone 0.1% Cream [Kenalog 1 applic TOPICAL BID PRN 05/17/21 05/17/21 History 0.1% Cream] allopurinoL [Zyloprim] 200 mg PO DAILY 05/17/21 05/17/21 History predniSONE [Deltasone] 20 mg PO DAILY 05/17/21 05/17/21 History Allergies Allergy/AdvReac Type Severity Reaction Status Date / Time No Known Allergies Allergy Verified 05/17/21 09:51 Physical Exam Vitals: Vital Signs Temp Pulse Pulse Resp BP BP Pulse Ox 05/18/21 08:56 97.5 F L 78 18 98/58 95 05/18/21 08:33 82 05/18/21 08:20 82 05/18/21 05:57 89.9 F L 65 18 100/60 98 05/17/21 20:05 80 05/17/21 20:00 98.2 F 74 18 112/58 98 05/17/21 19:51 82 05/17/21 16:00 82 20 111/71 91 L Intake and Output 05/17/21 05/18/21 05/18/21 22:59 06:59 14:59 Intake Total 500 Output Total 1600 200 Balance -1100 -200 Intake: Intake, IV Titration 500 Amount Vancomycin 1,750 mg In 500 Sodium Chloride 0.9% 500 ml 500 ml @ 167 mls/hr IVPB Q24H [facility] Rx#: [id number] Output: Urine 1600 200 Other: # Voids 1 Results CBC & Chem 7: 05/18/21 05:57 05/18/21 05:57 Labs: Abnormal Lab Results - Last 24 Hours (Table) 05/17/21 05/17/21 05/17/21 Range/Units 11:19 11:19 11:19 WBC 19.9 H (3.8-10.6) k/uL RBC 2.50 L (4.30-5.90) m/uL Hgb 8.2 L (13.0-17.5) gm/dL Hct 27.6 L (39.0-53.0) % MCV 110.4 H D (80.0-100.0) fL MCHC 29.8 L (31.0-37.0) g/dL Neutrophils # 18.2 H (1.3-7.7) k/uL Lymphocytes # 0.5 L (1.0-4.8) k/uL Macrocytosis Marked A Sodium 133 L (137-145) mmol/L Potassium 5.7 H (3.5-5.1) mmol/L Carbon Dioxide 20 L (22-30) mmol/L BUN 76 H (9-20) mg/dL Creatinine 2.18 H (0.66-1.25) mg/dL Est GFR (CKD-EPI)AfAm (60.0-200.0) Est GFR (CKD-EPI)NonAf (60.0-200.0) BUN/Creatinine Ratio (12.00-20.00) Ratio Glucose 138 H (74-99) mg/dL POC Glucose (mg/dL) (75-99) mg/dL Magnesium (1.6-2.3) mg/dL Troponin I 0.046 H* (0.000-0.034) ng/mL Total Protein 5.5 L (6.3-8.2) g/dL Albumin 2.8 L (3.5-5.0) g/dL 05/17/21 05/18/21 05/18/21 Range/Units 21:33 05:57 05:57 WBC 11.0 H (3.8-10.6) k/uL RBC 2.30 L (4.30-5.90) m/uL Hgb 7.5 L (13.0-17.5) gm/dL Hct 24.4 L (39.0-53.0) % MCV 105.8 H (80.0-100.0) fL MCHC 30.8 L (31.0-37.0) g/dL Neutrophils # 10.4 H (1.3-7.7) k/uL Lymphocytes # 0.3 L (1.0-4.8) k/uL Macrocytosis Sodium (137-145) mmol/L Potassium (3.5-5.1) mmol/L Carbon Dioxide (22-30) mmol/L BUN 60.0 H (9-20) mg/dL Creatinine 2.0 H (0.66-1.25) mg/dL Est GFR (CKD-EPI)AfAm 39.7 L (60.0-200.0) Est GFR (CKD-EPI)NonAf 34.3 L (60.0-200.0) BUN/Creatinine Ratio 30.00 H (12.00-20.00) Ratio Glucose (74-99) mg/dL POC Glucose (mg/dL) 116 H (75-99) mg/dL Magnesium (1.6-2.3) mg/dL Troponin I (0.000-0.034) ng/mL Total Protein (6.3-8.2) g/dL Albumin (3.5-5.0) g/dL 05/18/21 Range/Units 08:15 WBC (3.8-10.6) k/uL RBC (4.30-5.90) m/uL Hgb (13.0-17.5) gm/dL Hct (39.0-53.0) % MCV (80.0-100.0) fL MCHC (31.0-37.0) g/dL Neutrophils # (1.3-7.7) k/uL Lymphocytes # (1.0-4.8) k/uL Macrocytosis Sodium (137-145) mmol/L Potassium (3.5-5.1) mmol/L Carbon Dioxide (22-30) mmol/L BUN (9-20) mg/dL Creatinine (0.66-1.25) mg/dL Est GFR (CKD-EPI)AfAm (60.0-200.0) Est GFR (CKD-EPI)NonAf (60.0-200.0) BUN/Creatinine Ratio (12.00-20.00) Ratio Glucose (74-99) mg/dL POC Glucose (mg/dL) (75-99) mg/dL Magnesium 1.4 L (1.6-2.3) mg/dL Troponin I (0.000-0.034) ng/mL Total Protein (6.3-8.2) g/dL Albumin (3.5-5.0) g/dL Microbiology - Last 24 Hours (Table) 05/17/21 07:45 Blood Culture Gram Stain - Preliminary Blood 05/17/21 07:45 Blood Culture - Final Blood 05/17/21 07:30 Blood Culture - Final Blood
[2021-05-19 00:56] LABS: Glucose,Whole Blood 361 mg/dL (75-99)
[2021-05-19] MEDS: MORPHINE SULFATE 4 MG/ML SYRINGE IVP PRN ×4 (00:57→19:26)
[2021-05-19] MEDS: INSULIN REGULAR 100 UNIT in SODIUM CHLORIDE 0.9% 100 ML IV SCH ×2 (01:03→13:43)
[2021-05-19 01:35] LABS: Glucose,Whole Blood 317 mg/dL (75-99)
[2021-05-19 02:06] LABS: Glucose,Whole Blood 251 mg/dL (75-99)
[2021-05-19 04:04] LABS: Glucose,Whole Blood 97 mg/dL (75-99)
[2021-05-19] MEDS: LEVOTHYROXINE 25 MCG TAB PO SCH (06:07)
[2021-05-19 06:11] LABS: Glucose,Whole Blood 181 mg/dL (75-99)
[2021-05-19] MEDS ORDERED: INSULIN ASPART (NovoLOG) 100 UNIT/ML VIAL SQ SCH (07:30)
[2021-05-19 08:00] LABS: Basophils % (A) 0 %; Eosinophils % (A) 0 %; HCT 21.9 % (39.0-53.0); Hypochromasia Slight; Lymphocytes # (A) 0.3 k/uL (1.0-4.8); Lymphocytes % (A) 3 %; MCH 33.2 pg (25.0-35.0); MCHC 32.1 g/dL (31.0-37.0); MCV 103.6 fL (80.0-100.0); Macrocytosis Slight; Mean Platelet Volume 8.6; Monocytes # (A) 0.7 k/uL (0-1.0); Monocytes % (A) 6 %; Neutrophils # (A) 11.1 k/uL (1.3-7.7); Neutrophils % (A) 90 %; Platelet Count 189 k/uL (150-450); RBC 2.11 m/uL (4.30-5.90); WBC 12.3 k/uL (3.8-10.6)
[2021-05-19 08:01] LABS: Glucose,Whole Blood 243 mg/dL (75-99)
[2021-05-19] MEDS: PANTOPRAZOLE 40 MG TABLET PO SCH (08:33)
[2021-05-19] MEDS: APIXABAN 2.5 MG TABLET PO SCH ×2 (08:33→22:44)
[2021-05-19] MEDS: allopurinoL 100 MG TAB PO SCH (08:33)
[2021-05-19] MEDS: FUROSEMIDE 40 MG TAB PO SCH ×2 (08:33→17:26)
[2021-05-19] MEDS: TAMSULOSIN 0.4 MG CAP.ER.24H PO SCH (08:33)
[2021-05-19] MEDS: MIDODRINE 5 MG TAB PO SCH ×3 (08:33→17:26)
[2021-05-19 08:53] LABS: Erythrocyte Sedimentation Rate 124 mm/hr (0-15)
[2021-05-19] MEDS: IPRATROPIUM-ALBUTEROL 3 ML NEB INHALATION SCH ×4 (09:00→19:43)
[2021-05-19] MEDS: SYMBICORT 160-4.5 MCG INHALER INHALATION SCH ×2 (09:00→19:55)
[2021-05-19 09:26] LABS: Lymphocytes # (M) 0.12 k/uL (1.0-4.8); Monocytes # (M) 0.37 k/uL (0-1.0); Neutrophils # (M) 11.81 k/uL (1.3-7.7); Neutrophils % (M) 96 %; Nucleated Red Blood Cells 0 /100 WBC (0-0); Polychromasia Present; Total Cells Counted 100; Toxic Granulation Present
[2021-05-19 09:27] LABS: Anisocytosis (M) Present; Poikilocytosis (M) Present
[2021-05-19 10:27] LABS: Glucose,Whole Blood 329 mg/dL (75-99)
[2021-05-19 10:59] LABS: African American GFR (CKD) 45.7 (60.0-200.0); Anion Gap 13.5 mmol/L (10.00-18.00); BUN/Creat Ratio 32.08 Ratio (12.00-20.00); Blood Urea Nitrogen 57.1 mg/dL (9.0-27.0); Calcium 8.5 mg/dL (8.7-10.3); Carbon Dioxide 29.2 mmol/L (20.0-27.5); Non-African American GFR(CKD) 39.4 (60.0-200.0); Potassium 4.4 mmol/L (3.5-5.5)
[2021-05-19] MEDS ORDERED: TRIAMCINOLONE 0.1% CREAM 80 GM TUBE TOPICAL PRN (12:20)
[2021-05-19 12:41] LABS: Glucose,Whole Blood 167 mg/dL (75-99)
--- NOTE | 2021-05-19 13:23 | P.PN ---
Subjective Progress Note Date: 05/19/21 This is a very pleasant 65-year-old male patient with a history of atrial fibrillation, congestive heart failure, chronic obstructive pulmonary disease oxygen dependent on 4 L at home, diabetes mellitus, DVT, hyperlipidemia, hypertension previous CoVID infection in August 2020. The patient presented to the emergency room yesterday with complaints of increasing shortness of breath. He had noticed increased swelling of his lower extremities. He had also sustained a fall several days ago and was seen [facility] and had his left arm splinted for fracture. He has been seen by orthopedics no plans for surgical intervention at this time. He is seen today in consultation on the regular medical floor. He is sitting up in a chair at the bedside. Awake and alert in no acute distress. Echocardiogram revealed preserved left ventricular systolic function with ejection fraction 50-55%. Mild aortic stenosis. Asked x-ray revealed evidence of COPD with some subsegmental atelectasis and mild pul monary vascular congestion. Blood cultures revealed no growth. White count 11.0. Hemoglobin 7.5. We'll decide 0.3. Sodium 137. Potassium 5.0. Creatinine 2.0. Glucose 199. ProBNP 3940. AST 46. ALT 27. Troponin 0.052, 0.047, 0.046. The patient is seen today in consultation on the regular medical floor. He is currently sitting up in a chair at the bedside. Awake and alert in no acute distress. He states his breathing is about the same and feeling back to his baseline. No worsening shortness of breath, cough or congestion. No fever or chills. No productive sputum. He's been initiated on Symbicort, DuoNeb inhalations, IV Solu-Medrol. He is anticoagulated with Eliquis. He is being treated with vancomycin and ceftriaxone? The patient is seen today 05/19/2021 in follow-up on the regular medical floor. He is currently resting in bed. Awake and alert in no acute distress. He denies any worsening shortness of breath, cough or congestion. He is maintaining O2 saturations on 4 L/m per nasal cannula which is his home setting. He's been afebrile. Hemodynamically stable. The cultures are positive for staph aureus, sputum culture pending. White count 12.3. Hemoglobin 7.0. Sodium 138. Potassium 4.4. Creatinine 1.8. Glucose 186. Cortisol level 10. ProCalcitonin 1.09. C-reactive protein 28. ESR 124. He is continued on cefazolin. Remains on DuoNeb inhalations, Symbicort. Intake coagulated with Eliquis. Orthopedics is on regarding the fracture of the left upper extremity. Objective - Vital Signs Vital signs: Vital Signs Temp 97.9 F 05/19/21 12:08 Pulse 69 05/19/21 12:36 Resp 18 05/19/21 12:08 BP 112/65 05/19/21 12:08 Pulse Ox 90 L 05/19/21 12:08 Intake & Output 05/18/21 05/19/21 05/19/21 18:59 06:59 18:59 Intake Total 250 36.714 59.135 Output Total 800 850 Balance -550 -813.286 59.135 Intake: Intake, IV Titration 250 36.714 59.135 Amount Insulin Regular 100 unit 36.714 59.135 In Sodium Chloride 0.9% 100 ml @ Titrate IV .Q0M [facility] Rx#:[id number] Magnesium Sulfate-D5w Pmx 200 1 gm In Dextrose/Water 1 100ml.bag @ 100 mls/hr IVPB Q1H [facility] Rx#: [id number] cefTRIAXone 1 gm In 50 Sodium Chloride 0.9% 50 ml @ 100 mls/hr IVPB Q24HR [facility] Rx#:[id number] Output: Urine 800 850 Other: Voiding Method Urinal Urinal # Voids 1 - Exam GENERAL EXAM: Alert, pleasant 65-year-old gentleman, appears older than stated age, on 4 L nasal cannula which is his home setting, comfortable in no apparent distress. HEAD: Normocephalic. EYES: Normal reaction of pupils, equal size. NOSE: Clear with pink turbinates. THROAT: No erythema or exudates. NECK: No masses, no JVD. CHEST: No chest wall deformity. LUNGS: Equal air entry with faint end expiratory wheeze, diminished. CVS: S1 and S2 normal with no audible murmur, regular rhythm. ABDOMEN: No hepatosplenomegaly, normal bowel sounds, no guarding or rigidity. SPINE: Kyphoscoliosis SKIN: Ecchymosis and bruising of the left upper extremity CENTRAL NERVOUS SYSTEM: No focal deficits, tone is normal in all 4 extremities. EXTREMITIES: Left upper extremity in Dany wrap. There is 1+peripheral edema. No clubbing, no cyanosis. Peripheral pulses are intact. - Labs CBC & Chem 7: 05/19/21 06:29 05/19/21 06:29 Labs: Abnormal Lab Results - Last 24 Hours (Table) 05/18/21 05/18/21 05/18/21 Range/Units 05:57 17:17 19:31 WBC (3.8-10.6) k/uL RBC (4.30-5.90) m/uL Hgb (13.0-17.5) gm/dL Hct (39.0-53.0) % MCV (80.0-100.0) fL Neutrophils # (1.3-7.7) k/uL Neutrophils # (Manual) (1.3-7.7) k/uL Lymphocytes # (1.0-4.8) k/uL Lymphocytes # (Manual) (1.0-4.8) k/uL ESR (0-15) mm/hr Chloride (96-109) mmol/L Carbon Dioxide (20.0-27.5) mmol/L BUN (9.0-27.0) mg/dL Creatinine (0.6-1.5) mg/dL Est GFR (CKD-EPI)AfAm (60.0-200.0) Est GFR (CKD-EPI)NonAf (60.0-200.0) BUN/Creatinine Ratio (12.00-20.00) Ratio Glucose (70-110) mg/dL POC Glucose (mg/dL) 404 H 450 H (75-99) mg/dL Calcium (8.7-10.3) mg/dL Iron 9 L (65-175) ug/dL TIBC 197 L (228-460) ug/dL % Saturation 4.39 L (15.00-50.00) Transferrin 141.0 L (204.0-354.0) mg/dL Ferritin 1176.0 H (22.0-322.0) ng/mL C-Reactive Protein (0.00-0.80) mg/dL Procalcitonin (0.02-0.09) ng/mL Urine Glucose (UA) (Negative) Urine Ketones (Negative) Urine Blood (Negative) Urine Mucus (None) /hpf 05/18/21 05/18/21 05/18/21 Range/Units 19:46 20:40 21:58 WBC (3.8-10.6) k/uL RBC (4.30-5.90) m/uL Hgb (13.0-17.5) gm/dL Hct (39.0-53.0) % MCV (80.0-100.0) fL Neutrophils # (1.3-7.7) k/uL Neutrophils # (Manual) (1.3-7.7) k/uL Lymphocytes # (1.0-4.8) k/uL Lymphocytes # (Manual) (1.0-4.8) k/uL ESR (0-15) mm/hr Chloride (96-109) mmol/L Carbon Dioxide (20.0-27.5) mmol/L BUN (9.0-27.0) mg/dL Creatinine (0.6-1.5) mg/dL Est GFR (CKD-EPI)AfAm (60.0-200.0) Est GFR (CKD-EPI)NonAf (60.0-200.0) BUN/Creatinine Ratio (12.00-20.00) Ratio Glucose (70-110) mg/dL POC Glucose (mg/dL) 471 H 436 H (75-99) mg/dL Calcium (8.7-10.3) mg/dL Iron (65-175) ug/dL TIBC (228-460) ug/dL % Saturation (15.00-50.00) Transferrin (204.0-354.0) mg/dL Ferritin (22.0-322.0) ng/mL C-Reactive Protein (0.00-0.80) mg/dL Procalcitonin (0.02-0.09) ng/mL Urine Glucose (UA) 3+ H (Negative) Urine Ketones Trace H (Negative) Urine Blood Trace H (Negative) Urine Mucus Rare H (None) /hpf 05/18/21 05/19/21 05/19/21 Range/Units 22:59 00:54 01:34 WBC (3.8-10.6) k/uL RBC (4.30-5.90) m/uL Hgb (13.0-17.5) gm/dL Hct (39.0-53.0) % MCV (80.0-100.0) fL Neutrophils # (1.3-7.7) k/uL Neutrophils # (Manual) (1.3-7.7) k/uL Lymphocytes # (1.0-4.8) k/uL Lymphocytes # (Manual) (1.0-4.8) k/uL ESR (0-15) mm/hr Chloride (96-109) mmol/L Carbon Dioxide (20.0-27.5) mmol/L BUN (9.0-27.0) mg/dL Creatinine (0.6-1.5) mg/dL Est GFR (CKD-EPI)AfAm (60.0-200.0) Est GFR (CKD-EPI)NonAf (60.0-200.0) BUN/Creatinine Ratio (12.00-20.00) Ratio Glucose (70-110) mg/dL POC Glucose (mg/dL) 427 H 361 H 317 H (75-99) mg/dL Calcium (8.7-10.3) mg/dL Iron (65-175) ug/dL TIBC (228-460) ug/dL % Saturation (15.00-50.00) Transferrin (204.0-354.0) mg/dL Ferritin (22.0-322.0) ng/mL C-Reactive Protein (0.00-0.80) mg/dL Procalcitonin (0.02-0.09) ng/mL Urine Glucose (UA) (Negative) Urine Ketones (Negative) Urine Blood (Negative) Urine Mucus (None) /hpf 05/19/21 05/19/21 05/19/21 Range/Units 02:04 05:59 06:29 WBC (3.8-10.6) k/uL RBC (4.30-5.90) m/uL Hgb (13.0-17.5) gm/dL Hct (39.0-53.0) % MCV (80.0-100.0) fL Neutrophils # (1.3-7.7) k/uL Neutrophils # (Manual) (1.3-7.7) k/uL Lymphocytes # (1.0-4.8) k/uL Lymphocytes # (Manual) (1.0-4.8) k/uL ESR (0-15) mm/hr Chloride 95 L (96-109) mmol/L Carbon Dioxide 29.2 H (20.0-27.5) mmol/L BUN 57.1 H (9.0-27.0) mg/dL Creatinine 1.8 H (0.6-1.5) mg/dL Est GFR (CKD-EPI)AfAm 45.7 L (60.0-200.0) Est GFR (CKD-EPI)NonAf 39.4 L (60.0-200.0) BUN/Creatinine Ratio 32.08 H (12.00-20.00) Ratio Glucose 186 H (70-110) mg/dL POC Glucose (mg/dL) 251 H 181 H (75-99) mg/dL Calcium 8.5 L (8.7-10.3) mg/dL Iron (65-175) ug/dL TIBC (228-460) ug/dL % Saturation (15.00-50.00) Transferrin (204.0-354.0) mg/dL Ferritin (22.0-322.0) ng/mL C-Reactive Protein 28.00 H (0.00-0.80) mg/dL Procalcitonin (0.02-0.09) ng/mL Urine Glucose (UA) (Negative) Urine Ketones (Negative) Urine Blood (Negative) Urine Mucus (None) /hpf 05/19/21 05/19/21 05/19/21 Range/Units 06:29 06:29 07:58 WBC 12.3 H (3.8-10.6) k/uL RBC 2.11 L (4.30-5.90) m/uL Hgb 7.0 L (13.0-17.5) gm/dL Hct 21.9 L (39.0-53.0) % MCV 103.6 H (80.0-100.0) fL Neutrophils # 11.1 H (1.3-7.7) k/uL Neutrophils # (Manual) 11.81 H (1.3-7.7) k/uL Lymphocytes # 0.3 L (1.0-4.8) k/uL Lymphocytes # (Manual) 0.12 L (1.0-4.8) k/uL ESR 124 H (0-15) mm/hr Chloride (96-109) mmol/L Carbon Dioxide (20.0-27.5) mmol/L BUN (9.0-27.0) mg/dL Creatinine (0.6-1.5) mg/dL Est GFR (CKD-EPI)AfAm (60.0-200.0) Est GFR (CKD-EPI)NonAf (60.0-200.0) BUN/Creatinine Ratio (12.00-20.00) Ratio Glucose (70-110) mg/dL POC Glucose (mg/dL) 243 H (75-99) mg/dL Calcium (8.7-10.3) mg/dL Iron (65-175) ug/dL TIBC (228-460) ug/dL % Saturation (15.00-50.00) Transferrin (204.0-354.0) mg/dL Ferritin (22.0-322.0) ng/mL C-Reactive Protein (0.00-0.80) mg/dL Procalcitonin 1.09 H (0.02-0.09) ng/mL Urine Glucose (UA) (Negative) Urine Ketones (Negative) Urine Blood (Negative) Urine Mucus (None) /hpf 05/19/21 05/19/21 Range/Units 10:25 12:39 WBC (3.8-10.6) k/uL RBC (4.30-5.90) m/uL Hgb (13.0-17.5) gm/dL Hct (39.0-53.0) % MCV (80.0-100.0) fL Neutrophils # (1.3-7.7) k/uL Neutrophils # (Manual) (1.3-7.7) k/uL Lymphocytes # (1.0-4.8) k/uL Lymphocytes # (Manual) (1.0-4.8) k/uL ESR (0-15) mm/hr Chloride (96-109) mmol/L Carbon Dioxide (20.0-27.5) mmol/L BUN (9.0-27.0) mg/dL Creatinine (0.6-1.5) mg/dL Est GFR (CKD-EPI)AfAm (60.0-200.0) Est GFR (CKD-EPI)NonAf (60.0-200.0) BUN/Creatinine Ratio (12.00-20.00) Ratio Glucose (70-110) mg/dL POC Glucose (mg/dL) 329 H 167 H (75-99) mg/dL Calcium (8.7-10.3) mg/dL Iron (65-175) ug/dL TIBC (228-460) ug/dL % Saturation (15.00-50.00) Transferrin (204.0-354.0) mg/dL Ferritin (22.0-322.0) ng/mL C-Reactive Protein (0.00-0.80) mg/dL Procalcitonin (0.02-0.09) ng/mL Urine Glucose (UA) (Negative) Urine Ketones (Negative) Urine Blood (Negative) Urine Mucus (None) /hpf Microbiology - Last 24 Hours (Table) 05/17/21 07:45 Blood Culture Gram Stain - Preliminary Blood Blood Culture - Preliminary Presumptive Staph aureus 05/17/21 07:30 Blood Culture Gram Stain - Preliminary Blood Blood Culture - Preliminary Presumptive Staph aureus 05/18/21 05:57 Blood Culture Gram Stain - Preliminary Blood Blood Culture - Preliminary Staphylococcus aureus 05/18/21 16:57 Gram Stain - Preliminary Sputum Sputum Culture - Preliminary 05/18/21 05:57 Blood Culture - Final Blood Assessment and Plan Assessment: 1 Acute on chronic hypoxic respiratory failure secondary to mild exacerbation of COPD 2 Recent fall with comminuted slightly impacted fracture to the distal metaphysis with large transverse component and likely intra-articular extension of the left upper extremity 3 Paroxysmal atrial fibrillation, anticoagulated with Eliquis 4 Troponin leak 5 Former smoker 6 Diabetes mellitus 7 Hyperlipidemia 8 Hypertension 9 Chronic kidney disease stage III 10 Prior history of alcoholism 11 History of previous left-sided pneumothorax requiring ThoraVent Plan: The patient was seen and evaluated Stable and on his normal home oxygen Continue bronchodilators Increase his activity as tolerated We will see as needed I, the cosigning physician, performed a history & physical examination of the patient. Lungs sounds with faint end expiratory wheeze, diminished. Maintaining O2 saturations in the 90s on 4 L/m per nasal cannula. I discussed the assessm ent and plan of care with my nurse practitioner, Ella Hair. I attest to the above note as dictated by her.
[2021-05-19 14:45] VITALS: BMI 29.5
--- NOTE | 2021-05-19 14:56 | P.PN ---
Subjective Progress Note Date: 05/19/21 This patient is a 65-year-old male past medical history of atrial fibrillation on Eliquis, heart failure, COPD, hypertension, hyperlipidemia, chronic kidney disease that presented to [facility] emergency department 05/17/21 with complaints of shortness of breath. Upon presentation to the [facility], WBC was elevated at 19.7, chest x-ray showed possible pneumonia, and troponins were also elevated. X-rays revealed a left wrist fracture. Patient was admitted under the care of internal medicine and a consult to cardiology. Orthopedics was consulted in regards to the patient's left wrist fracture. Patient is seen and examined bedside in the emergency department this afternoon. His daughter is also bedside. Patient states he injured the wrist about a week ago. He tripped over a rug and fell at home. He states he was seen by his PCP in [place] last Monday, x-rays were taken and patient was told he sustained a fracture. He was placed into a splint. Patient's daughter states he removed the splint shortly after and has been without a splint or brace on all week. He notes pain in the left wrist and elbow. He denies additional complaints or concerns. He denies numbness or tingling of the left upper extremity. 05/19/21: Patient is seen and examined bedside with Dr. Guillen. Patient continues to experience discomfort of the LUE. He is complaining that his current splint is poking him near the elbow. He has no additional complaints. Objective - Vital Signs Vital signs: Vital Signs Temp 97.9 F 05/19/21 12:08 Pulse 69 05/19/21 12:36 Resp 18 05/19/21 12:08 BP 112/65 05/19/21 12:08 Pulse Ox 90 L 05/19/21 12:08 Intake & Output 05/18/21 05/19/21 05/19/21 18:59 06:59 18:59 Intake Total 250 36.714 60.802 Output Total 800 850 Balance -550 -813.286 60.802 Weight 104.326 kg Intake: Intake, IV Titration 250 36.714 60.802 Amount Insulin Regular 100 unit 36.714 60.802 In Sodium Chloride 0.9% 100 ml @ Titrate IV .Q0M [facility] Rx#:[id number] Magnesium Sulfate-D5w Pmx 200 1 gm In Dextrose/Water 1 100ml.bag @ 100 mls/hr IVPB Q1H [facility] Rx#: [id number] cefTRIAXone 1 gm In 50 Sodium Chloride 0.9% 50 ml @ 100 mls/hr IVPB Q24HR [facility] Rx#:[id number] Output: Urine 800 850 Other: Voiding Method Urinal Urinal # Voids 1 - Exam On examination, patient is sitting up in bed in no acute distress. On inspection of the left upper extremity, there is a short arm splint in place, which is removed. There diffuse swelling of the left upper extremity and resolving ecchymosis. No open wounds or lacerations, skin is intact. Motor and sensory function is intact of the left upper extremity. There is ecchymosis of the dorsal fingers. The fingers are warm and well-perfused with brisk capillary refill distally. New well-padded sugar tong splint is placed bedside today. - Labs CBC & Chem 7: 05/19/21 06:29 05/19/21 06:29 Labs: Abnormal Lab Results - Last 24 Hours (Table) 05/18/21 05/18/21 05/18/21 Range/Units 05:57 17:17 19:31 WBC (3.8-10.6) k/uL RBC (4.30-5.90) m/uL Hgb (13.0-17.5) gm/dL Hct (39.0-53.0) % MCV (80.0-100.0) fL Neutrophils # (1.3-7.7) k/uL Neutrophils # (Manual) (1.3-7.7) k/uL Lymphocytes # (1.0-4.8) k/uL Lymphocytes # (Manual) (1.0-4.8) k/uL ESR (0-15) mm/hr Chloride (96-109) mmol/L Carbon Dioxide (20.0-27.5) mmol/L BUN (9.0-27.0) mg/dL Creatinine (0.6-1.5) mg/dL Est GFR (CKD-EPI)AfAm (60.0-200.0) Est GFR (CKD-EPI)NonAf (60.0-200.0) BUN/Creatinine Ratio (12.00-20.00) Ratio Glucose (70-110) mg/dL POC Glucose (mg/dL) 404 H 450 H (75-99) mg/dL Calcium (8.7-10.3) mg/dL Iron 9 L (65-175) ug/dL TIBC 197 L (228-460) ug/dL % Saturation 4.39 L (15.00-50.00) Transferrin 141.0 L (204.0-354.0) mg/dL Ferritin 1176.0 H (22.0-322.0) ng/mL C-Reactive Protein (0.00-0.80) mg/dL Procalcitonin (0.02-0.09) ng/mL Urine Glucose (UA) (Negative) Urine Ketones (Negative) Urine Blood (Negative) Urine Mucus (None) /hpf 05/18/21 05/18/21 05/18/21 Range/Units 19:46 20:40 21:58 WBC (3.8-10.6) k/uL RBC (4.30-5.90) m/uL Hgb (13.0-17.5) gm/dL Hct (39.0-53.0) % MCV (80.0-100.0) fL Neutrophils # (1.3-7.7) k/uL Neutrophils # (Manual) (1.3-7.7) k/uL Lymphocytes # (1.0-4.8) k/uL Lymphocytes # (Manual) (1.0-4.8) k/uL ESR (0-15) mm/hr Chloride (96-109) mmol/L Carbon Dioxide (20.0-27.5) mmol/L BUN (9.0-27.0) mg/dL Creatinine (0.6-1.5) mg/dL Est GFR (CKD-EPI)AfAm (60.0-200.0) Est GFR (CKD-EPI)NonAf (60.0-200.0) BUN/Creatinine Ratio (12.00-20.00) Ratio Glucose (70-110) mg/dL POC Glucose (mg/dL) 471 H 436 H (75-99) mg/dL Calcium (8.7-10.3) mg/dL Iron (65-175) ug/dL TIBC (228-460) ug/dL % Saturation (15.00-50.00) Transferrin (204.0-354.0) mg/dL Ferritin (22.0-322.0) ng/mL C-Reactive Protein (0.00-0.80) mg/dL Procalcitonin (0.02-0.09) ng/mL Urine Glucose (UA) 3+ H (Negative) Urine Ketones Trace H (Negative) Urine Blood Trace H (Negative) Urine Mucus Rare H (None) /hpf 05/18/21 05/19/21 05/19/21 Range/Units 22:59 00:54 01:34 WBC (3.8-10.6) k/uL RBC (4.30-5.90) m/uL Hgb (13.0-17.5) gm/dL Hct (39.0-53.0) % MCV (80.0-100.0) fL Neutrophils # (1.3-7.7) k/uL Neutrophils # (Manual) (1.3-7.7) k/uL Lymphocytes # (1.0-4.8) k/uL Lymphocytes # (Manual) (1.0-4.8) k/uL ESR (0-15) mm/hr Chloride (96-109) mmol/L Carbon Dioxide (20.0-27.5) mmol/L BUN (9.0-27.0) mg/dL Creatinine (0.6-1.5) mg/dL Est GFR (CKD-EPI)AfAm (60.0-200.0) Est GFR (CKD-EPI)NonAf (60.0-200.0) BUN/Creatinine Ratio (12.00-20.00) Ratio Glucose (70-110) mg/dL POC Glucose (mg/dL) 427 H 361 H 317 H (75-99) mg/dL Calcium (8.7-10.3) mg/dL Iron (65-175) ug/dL TIBC (228-460) ug/dL % Saturation (15.00-50.00) Transferrin (204.0-354.0) mg/dL Ferritin (22.0-322.0) ng/mL C-Reactive Protein (0.00-0.80) mg/dL Procalcitonin (0.02-0.09) ng/mL Urine Glucose (UA) (Negative) Urine Ketones (Negative) Urine Blood (Negative) Urine Mucus (None) /hpf 05/19/21 05/19/21 05/19/21 Range/Units 02:04 05:59 06:29 WBC (3.8-10.6) k/uL RBC (4.30-5.90) m/uL Hgb (13.0-17.5) gm/dL Hct (39.0-53.0) % MCV (80.0-100.0) fL Neutrophils # (1.3-7.7) k/uL Neutrophils # (Manual) (1.3-7.7) k/uL Lymphocytes # (1.0-4.8) k/uL Lymphocytes # (Manual) (1.0-4.8) k/uL ESR (0-15) mm/hr Chloride 95 L (96-109) mmol/L Carbon Dioxide 29.2 H (20.0-27.5) mmol/L BUN 57.1 H (9.0-27.0) mg/dL Creatinine 1.8 H (0.6-1.5) mg/dL Est GFR (CKD-EPI)AfAm 45.7 L (60.0-200.0) Est GFR (CKD-EPI)NonAf 39.4 L (60.0-200.0) BUN/Creatinine Ratio 32.08 H (12.00-20.00) Ratio Glucose 186 H (70-110) mg/dL POC Glucose (mg/dL) 251 H 181 H (75-99) mg/dL Calcium 8.5 L (8.7-10.3) mg/dL Iron (65-175) ug/dL TIBC (228-460) ug/dL % Saturation (15.00-50.00) Transferrin (204.0-354.0) mg/dL Ferritin (22.0-322.0) ng/mL C-Reactive Protein 28.00 H (0.00-0.80) mg/dL Procalcitonin (0.02-0.09) ng/mL Urine Glucose (UA) (Negative) Urine Ketones (Negative) Urine Blood (Negative) Urine Mucus (None) /hpf 05/19/21 05/19/21 05/19/21 Range/Units 06:29 06:29 07:58 WBC 12.3 H (3.8-10.6) k/uL RBC 2.11 L (4.30-5.90) m/uL Hgb 7.0 L (13.0-17.5) gm/dL Hct 21.9 L (39.0-53.0) % MCV 103.6 H (80.0-100.0) fL Neutrophils # 11.1 H (1.3-7.7) k/uL Neutrophils # (Manual) 11.81 H (1.3-7.7) k/uL Lymphocytes # 0.3 L (1.0-4.8) k/uL Lymphocytes # (Manual) 0.12 L (1.0-4.8) k/uL ESR 124 H (0-15) mm/hr Chloride (96-109) mmol/L Carbon Dioxide (20.0-27.5) mmol/L BUN (9.0-27.0) mg/dL Creatinine (0.6-1.5) mg/dL Est GFR (CKD-EPI)AfAm (60.0-200.0) Est GFR (CKD-EPI)NonAf (60.0-200.0) BUN/Creatinine Ratio (12.00-20.00) Ratio Glucose (70-110) mg/dL POC Glucose (mg/dL) 243 H (75-99) mg/dL Calcium (8.7-10.3) mg/dL Iron (65-175) ug/dL TIBC (228-460) ug/dL % Saturation (15.00-50.00) Transferrin (204.0-354.0) mg/dL Ferritin (22.0-322.0) ng/mL C-Reactive Protein (0.00-0.80) mg/dL Procalcitonin 1.09 H (0.02-0.09) ng/mL Urine Glucose (UA) (Negative) Urine Ketones (Negative) Urine Blood (Negative) Urine Mucus (None) /hpf 05/19/21 05/19/21 Range/Units 10:25 12:39 WBC (3.8-10.6) k/uL RBC (4.30-5.90) m/uL Hgb (13.0-17.5) gm/dL Hct (39.0-53.0) % MCV (80.0-100.0) fL Neutrophils # (1.3-7.7) k/uL Neutrophils # (Manual) (1.3-7.7) k/uL Lymphocytes # (1.0-4.8) k/uL Lymphocytes # (Manual) (1.0-4.8) k/uL ESR (0-15) mm/hr Chloride (96-109) mmol/L Carbon Dioxide (20.0-27.5) mmol/L BUN (9.0-27.0) mg/dL Creatinine (0.6-1.5) mg/dL Est GFR (CKD-EPI)AfAm (60.0-200.0) Est GFR (CKD-EPI)NonAf (60.0-200.0) BUN/Creatinine Ratio (12.00-20.00) Ratio Glucose (70-110) mg/dL POC Glucose (mg/dL) 329 H 167 H (75-99) mg/dL Calcium (8.7-10.3) mg/dL Iron (65-175) ug/dL TIBC (228-460) ug/dL % Saturation (15.00-50.00) Transferrin (204.0-354.0) mg/dL Ferritin (22.0-322.0) ng/mL C-Reactive Protein (0.00-0.80) mg/dL Procalcitonin (0.02-0.09) ng/mL Urine Glucose (UA) (Negative) Urine Ketones (Negative) Urine Blood (Negative) Urine Mucus (None) /hpf Microbiology - Last 24 Hours (Table) 05/17/21 07:45 Blood Culture Gram Stain - Preliminary Blood Blood Culture - Preliminary Presumptive Staph aureus 05/17/21 07:30 Blood Culture Gram Stain - Preliminary Blood Blood Culture - Preliminary Presumptive Staph aureus 05/18/21 05:57 Blood Culture Gram Stain - Preliminary Blood Blood Culture - Preliminary Staphylococcus aureus 05/18/21 16:57 Gram Stain - Preliminary Sputum Sputum Culture - Preliminary 05/18/21 05:57 Blood Culture - Final Blood Assessment and Plan Assessment: Left distal radius fracture Plan: - No surgical intervention planned at this time. A new well-padded sugar tong splint was placed bedside today. He should keep this splint on until follow-up in the office. - Non-weight bearing left upper extremity. - Aggressive elevation LUE for swelling control. May perform gentle ROM of the left fingers as tolerated. - We will follow peripherally and make recommendations as needed. He should follow-up in the office in one week for repeat x-rays of the left wrist.
[2021-05-19 15:04] LABS: Glucose,Whole Blood 220 mg/dL (75-99)
[2021-05-19 16:05] LABS: Glucose,Whole Blood 219 mg/dL (75-99)
[2021-05-19 17:39] LABS: Glucose,Whole Blood 237 mg/dL (75-99)
[2021-05-19] MEDS ORDERED: DARBEPOETIN ALFA 60 MCG/0.3 ML SYRINGE SQ SCH (18:00)
--- NOTE | 2021-05-19 18:20 | PN ---
PROGRESS NOTE The patient is seen for followup for chronic kidney disease and acute kidney injury. His renal function has improved. Creatinine improved from 2.3 on admission to 1.8. Baseline creatinine about 1.5-1.7 mg/dL. The patient is currently being treated for volume overload. Lasix is p.o. The patient was on vancomycin. This is now discontinued. Covid 19 PCR is negative. PHYSICAL EXAMINATION: On examination today, blood pressure 112/65, heart rate 70 per minute. Patient is afebrile. Examination of the heart S1, S2. Examination of the lungs, decreased breath sounds at the bases. Abdomen is soft, nontender. Examination of lower extremities shows edema 2+ bilaterally. [employer] exam grossly intact. LAB: Show sodium 138, potassium 4.4, chloride 95, CO2 is 29.2, BUN 57, creatinine 1.8, random cortisol was 10, hemoglobin 7.0. Blood cultures are growing Staph aureus on May 17 as well as May 18. ASSESSMENT: 1. Acute kidney injury, acute tubular necrosis currently improved as well as component of cardiorenal syndrome. Lasix is currently p.o. Agree with discontinuation of vancomycin. The patient has been voiding in a urinal. The blood pressure is currently on the lower side. I will try and continue with the diuretics for now, consider switching to IV. Continue with the midodrine for the hypotension. 2. Staph aureus bacteremia, being followed by Infectious Disease, maintained on cefazolin. 3. Acute hypoxic respiratory failure associated with chronic obstructive pulmonary disease. 4. Paroxysmal atrial fibrillation. 5. Chronic kidney disease stage 3. Baseline creatinine 1.5-1.7 mg/dL secondary to nephrosclerosis. Last ultrasound done in July of 2020 showed no hydronephrosis. PLAN: Continue with oral Lasix. Consider switching to IV. Agree with discontinuation of vancomycin. Add Aranesp and check iron profile. MMODL / IJN: [id number] /
[2021-05-19 19:52] LABS: Glucose,Whole Blood 265 mg/dL (75-99)
[2021-05-19 21:45] LABS: Glucose,Whole Blood 184 mg/dL (75-99)
[2021-05-19] MEDS: METOPROLOL SUCCINATE (ER) 50 MG TAB.ER.24H PO SCH (22:44)
--- NOTE | 2021-05-19 23:11 | PN ---
PROGRESS NOTE DATE OF SERVICE: 05/19/2021 REASON FOR FOLLOWUP: MSSA bacteremia. INTERVAL HISTORY: The patient is afebrile. The patient is breathing slightly comfortably. The patient denies having any chest pain. No worsening cough or sputum production. No abdominal pain. Pain to the left arm is currently controlled. PHYSICAL EXAMINATION: Blood pressure 114/60 with a pulse of 83, temperature 98. . He is 97% on 4 L nasal cannula. General description is a middle-aged male lying in bed in no distress. Respiratory system: Unlabored breathing, decreased intensity of breath sounds. No wheeze. Heart S1, S2. Regular rate and rhythm. Abdomen soft, no tenderness. LABS: No new labs have been obtained today. Blood culture has been MSSA. Sputum is pending. DIAGNOSTIC IMPRESSION AND PLAN: Patient with MSSA bacteremia. Concern for possible source. Pneumonia less likely but not entirely excluded. Blood cultures will be repeated to document clearance of his bacteremia. Antibiotic has been adjusted to cefazolin 2 grams q.8 hours. Monitor clinical course closely. MMODL / IJN: [id number] /
[2021-05-19 23:34] LABS: Glucose,Whole Blood 167 mg/dL (75-99)
[2021-05-20 01:32] LABS: Glucose,Whole Blood 167 mg/dL (75-99)
[2021-05-20] MEDS: MORPHINE SULFATE 4 MG/ML SYRINGE IVP PRN ×4 (02:41→23:41)
[2021-05-20 03:38] LABS: Glucose,Whole Blood 165 mg/dL (75-99)
[2021-05-20] MEDS: LEVOTHYROXINE 25 MCG TAB PO SCH (05:40)
[2021-05-20 05:45] LABS: Glucose,Whole Blood 179 mg/dL (75-99)
--- NOTE | 2021-05-20 06:09 | P.PN ---
Subjective Progress Note Date: 05/19/21 This is a 65-year-old male who was recently admitted with increasing shortness of breath and is being closely monitored. Cardiology has evaluated the patient along with orthopedics and no plans for surgical intervention of the left wrist fracture s/p fall a few weeks ago. Patient to continue with sling and splint and continue to elevate. Pulmonary also following for possible pneumonia and will continue with breathing inhalational treatments and oxygen supplementation. Patient is continued on oral lasix and nephrology following as well for acute kidney injury. Magnesium low and will replace per protocol and repeat am labs. Patient also continues on ceftriaxone and vancomycin for possible pneumonia. Steroids discontinued. Patient blood sugars have been slightly elevated and will continue with sliding scale and long acting and monitor closely. Patient is weak and PT/OT following recommending RAJAT for continued strength and mobility. Social work consulted. 05/19/2021 Patient is seen in follow-up today with multiple medical consultations following. Patient being followed closely by nephrology and lasix continues with by mouth and kidney functions stable with creatinine at 1.8. Patient was maintained on vancomycin and ceftriaxone and blood cultures showing MSSA with infectious disease following closely. IV antibiotics being transitioned to cefazolin and repeat blood cultures ordered to monitor for clearance of bacteremia. Patient states that he has followed with the wound center for chronic diabetic ulcers and is concerned about his feet with wounds that are not being treated. On exam there are some chronic appearing ulcers noted to the left second and fourth toe along with the right fourth toe with no drainage or swelling noted and no surrounding redness or cellulitis noted. Extremely dry skin noted to bilateral lower extremities of which patient states is always like that. Will consult wounds and appreciate recommendations. Patient states they have continued with a cream in the past but unsure of the name of it. Patient is afebrile and denies any worsening shortness of breath. Left upper extremity with continued swelling noted and elevated on some pillows. Labs: WBC is 12.3, hemoglobin is 7.0, platelets are 189, sodium is 138, potassium 4.4, BUN 57.1, creatinine 1.8, calcium 8.5, magnesium 2.0, CRP 28.0, pro calcitonin 1.09, cortisol 10.0 Review of systems: Constitutional: No reports of fatigue, fever or chills Cardio: No reports of chest pain or palpitations Respiratory: No reports of worsening shortness of breath or cough GI: No reports of nausea, vomiting, or diarrhea : no reports of dysuria or retention Neuro: reports continued weakness, denies numbness All medications have been reviewed Active Medications Hydrocodone Bitart/Acetaminophen (Hydrocodone/Apap 5-325mg 1 Each Tab) 1 each PO Q4HR PRN PRN Reason: Pain Albuterol/Ipratropium (Ipratropium-Albuterol 3 Ml Neb) 3 ml INHALATION RT-QID [facility] Last Admin: 05/19/21 15:40 Dose: 3 ml Documented by: Albuterol/Ipratropium (Ipratropium-Albuterol 3 Ml Neb) 3 ml INHALATION RT-QID PRN PRN Reason: Shortness Of Breath Or Wheezing Allopurinol (Allopurinol 100 Mg Tab) 200 mg PO DAILY [facility] Last Admin: 05/19/21 08:33 Dose: 200 mg Documented by: Apixaban (Apixaban 2.5 Mg Tablet) 2.5 mg PO BID [facility]; Protocol Last Admin: 05/19/21 08:33 Dose: 2.5 mg Documented by: Budesonide/Formoterol Fumarate (Symbicort 160-4.5 Mcg Inhaler) 2 puff INHALATION RT-BID [facility] Last Admin: 05/19/21 09:00 Dose: 2 puff Documented by: Dicyclomine HCl (Dicyclomine 10 Mg Cap) 20 mg PO TID PRN PRN Reason: IBS Furosemide (Furosemide 40 Mg Tab) 40 mg PO BID@0900,1600 [facility] Last Admin: 05/19/21 08:33 Dose: 40 mg Documented by: Insulin Human Regular 100 unit (/ Sodium Chloride) 101 mls @ 0 mls/hr IV .Q0M [facility]; Protocol Last Titration: 05/19/21 16:03 Dose: 5 units/hr, 5.05 mls/hr Documented by: Cefazolin Sodium 2 gm/ Sodium (Chloride) 50 mls @ 100 mls/hr IVPB Q8HR [facility] Levothyroxine Sodium (Levothyroxine 25 Mcg Tab) 25 mcg PO DAILY@0630 [facility] Last Admin: 05/19/21 06:07 Dose: 25 mcg Documented by: Metoprolol Succinate (Metoprolol Succinate (Er) 50 Mg Tab.Er.24h) 50 mg PO HS [facility] Last Admin: 05/18/21 21:02 Dose: 50 mg Documented by: Midodrine (Midodrine 5 Mg Tab) 10 mg PO AC-TID [facility] Last Admin: 05/19/21 13:29 Dose: 10 mg Documented by: Miscellaneous Information (Pneumonia Protocol Utilized 1 [place] [facility] [place] 1 each PO ONCE PRN PRN Reason: Per Protocol Miscellaneous Information (Magnesium Replacement Protocol 1 [place] [facility] [place] 1 each MISCELLANE DAILY PRN; Protocol PRN Reason: Per Protocol Morphine Sulfate (Morphine Sulfate 4 Mg/Ml Syringe) 4 mg IVP Q4HR PRN PRN Reason: Pain Last Admin: 05/19/21 15:01 Dose: 4 mg Documented by: Ondansetron HCl (Ondansetron 4 Mg Tab) 4 mg PO BID PRN PRN Reason: Nausea Pantoprazole Sodium (Pantoprazole 40 Mg Tablet) 40 mg PO DAILY@0730 [facility] Last Admin: 05/19/21 08:33 Dose: 40 mg Documented by: Tamsulosin HCl (Tamsulosin 0.4 Mg Cap.Er.24h) 0.4 mg PO DAILY [facility] Last Admin: 05/19/21 08:33 Dose: 0.4 mg Documented by: Triamcinolone Acetonide (Triamcinolone 0.1% Cream 80 Gm Tube) 1 applic TOPICAL BID PRN; Protocol PRN Reason: Rash Physical Exam: Gen: This is a 65-year-old male who is awake, alert and oriented x3, well- developed, well-nourished. Temp is 97.7 F, pulse is 60, respirations are 18, blood pressure is 97/55, oxygen saturation is 95% on 4 liters via nasal cannula HEENT: Head is atraumatic, normocephalic. Pupils equal, round. Sclerae is anicteric. NECK: Supple. No JVD. No lymphadenopathy. No thyromegaly. LUNGS: Breath sounds diminished with some mild scattered rhonchi and minimal expiratory wheezing noted. No intercostal retractions. HEART: S1, S2 are muffled ABDOMEN: Soft. Bowel sounds are present. No masses. No tenderness. EXTREMITIES: No pedal edema. No calf tenderness. left upper extremity with continued swelling and elevated on pillow. NEUROLOGICAL: Patient is asleep but arousable, confused, diffusely weak . skin: dry, flaky skin noted to bilateral lower extremities Assessment: Shortness of breath, possibly multifactorial with chronic obstructive pulmonary disease acute exacerbation with acute purulent tracheobronchitis, early pneumonia and as well as congestive heart failure, acute exacerbation with acute hypoxic respiratory failure bacteremia with MSSA Chronic kidney disease stage III Hyponatremia Hyperkalemia Hypomagnesemia Troponin 0.05, indeterminate possibly myocardial infarction or secondary to respiratory difficulties Anemia, macrocytic Increased WBC Left arm fracture recently and fall Gait dysfunction Change in mental status, acute metabolic encephalopathy, multifactorial History of atrial fibrillation, chronic History of congestive heart failure History of COPD Diabetes mellitus type 2, uncontrolled with hyperglycemia History of DVT Gastroesophageal reflux disease Hyperlipidemia history of pneumonia History of respiratory disorder history of sleep apnea History of recent Covid positivity history of covid infection last year history of chronic hypoxic respiratory failure on 5 L via nasal cannula History of sick sinus syndrome history of appendectomy History of cholecystectomy History of anxiety, depression, panic disorder Plan: Recommend to continue with current medications, management, and symptomatic treatment. Orthopedics evaluated the patient and no plans for surgical intervention at this time and continue with conservative treatment and splint to the left upper extremity. Cardiology recommends resuming Eliquis and will follow as needed. Nephrology and pulmonary following. Patient was continued on vancomycin and ceftriaxone and being transitioned to IV cefazolin as blood cultures are positive for mssa. ID following closely. Blood sugars elevated and recommend close monitoring and continue with insulin drip for close monitoring and control. Patient continues on oral Lasix and nephrology following closely. replace electrolytes per protocol and repeat am labs. Social work following and ECF being planned. Due to multiple complex medical issues prognosis is guarded. Objective - Vital Signs Vital signs: Vital Signs Temp 97.9 F 05/19/21 12:08 Pulse 86 05/19/21 15:49 Resp 18 05/19/21 12:08 BP 112/65 05/19/21 12:08 Pulse Ox 95 05/19/21 15:42 Intake & Output 05/18/21 05/19/21 05/19/21 18:59 06:59 18:59 Intake Total 250 36.714 69.791 Output Total 800 850 Balance -550 -813.286 69.791 Weight 104.326 kg Intake: Intake, IV Titration 250 36.714 69.791 Amount Insulin Regular 100 unit 36.714 69.791 In Sodium Chloride 0.9% 100 ml @ Titrate IV .Q0M [facility] Rx#:[id number] Magnesium Sulfate-D5w Pmx 200 1 gm In Dextrose/Water 1 100ml.bag @ 100 mls/hr IVPB Q1H [facility] Rx#: [id number] cefTRIAXone 1 gm In 50 Sodium Chloride 0.9% 50 ml @ 100 mls/hr IVPB Q24HR [facility] Rx#:[id number] Output: Urine 800 850 Other: Voiding Method Urinal Urinal # Voids 1 - Labs CBC & Chem 7: 05/19/21 06:29 05/19/21 06:29 Labs: Abnormal Lab Results - Last 24 Hours (Table) 05/18/21 05/18/21 05/18/21 Range/Units 05:57 17:17 19:31 WBC (3.8-10.6) k/uL RBC (4.30-5.90) m/uL Hgb (13.0-17.5) gm/dL Hct (39.0-53.0) % MCV (80.0-100.0) fL Neutrophils # (1.3-7.7) k/uL Neutrophils # (Manual) (1.3-7.7) k/uL Lymphocytes # (1.0-4.8) k/uL Lymphocytes # (Manual) (1.0-4.8) k/uL ESR (0-15) mm/hr Chloride (96-109) mmol/L Carbon Dioxide (20.0-27.5) mmol/L BUN (9.0-27.0) mg/dL Creatinine (0.6-1.5) mg/dL Est GFR (CKD-EPI)AfAm (60.0-200.0) Est GFR (CKD-EPI)NonAf (60.0-200.0) BUN/Creatinine Ratio (12.00-20.00) Ratio Glucose (70-110) mg/dL POC Glucose (mg/dL) 404 H 450 H (75-99) mg/dL Calcium (8.7-10.3) mg/dL Iron 9 L (65-175) ug/dL TIBC 197 L (228-460) ug/dL % Saturation 4.39 L (15.00-50.00) Transferrin 141.0 L (204.0-354.0) mg/dL Ferritin 1176.0 H (22.0-322.0) ng/mL C-Reactive Protein (0.00-0.80) mg/dL Procalcitonin (0.02-0.09) ng/mL Urine Glucose (UA) (Negative) Urine Ketones (Negative) Urine Blood (Negative) Urine Mucus (None) /hpf 05/18/21 05/18/21 05/18/21 Range/Units 19:46 20:40 21:58 WBC (3.8-10.6) k/uL RBC (4.30-5.90) m/uL Hgb (13.0-17.5) gm/dL Hct (39.0-53.0) % MCV (80.0-100.0) fL Neutrophils # (1.3-7.7) k/uL Neutrophils # (Manual) (1.3-7.7) k/uL Lymphocytes # (1.0-4.8) k/uL Lymphocytes # (Manual) (1.0-4.8) k/uL ESR (0-15) mm/hr Chloride (96-109) mmol/L Carbon Dioxide (20.0-27.5) mmol/L BUN (9.0-27.0) mg/dL Creatinine (0.6-1.5) mg/dL Est GFR (CKD-EPI)AfAm (60.0-200.0) Est GFR (CKD-EPI)NonAf (60.0-200.0) BUN/Creatinine Ratio (12.00-20.00) Ratio Glucose (70-110) mg/dL POC Glucose (mg/dL) 471 H 436 H (75-99) mg/dL Calcium (8.7-10.3) mg/dL Iron (65-175) ug/dL TIBC (228-460) ug/dL % Saturation (15.00-50.00) Transferrin (204.0-354.0) mg/dL Ferritin (22.0-322.0) ng/mL C-Reactive Protein (0.00-0.80) mg/dL Procalcitonin (0.02-0.09) ng/mL Urine Glucose (UA) 3+ H (Negative) Urine Ketones Trace H (Negative) Urine Blood Trace H (Negative) Urine Mucus Rare H (None) /hpf 05/18/21 05/19/21 05/19/21 Range/Units 22:59 00:54 01:34 WBC (3.8-10.6) k/uL RBC (4.30-5.90) m/uL Hgb (13.0-17.5) gm/dL Hct (39.0-53.0) % MCV (80.0-100.0) fL Neutrophils # (1.3-7.7) k/uL Neutrophils # (Manual) (1.3-7.7) k/uL Lymphocytes # (1.0-4.8) k/uL Lymphocytes # (Manual) (1.0-4.8) k/uL ESR (0-15) mm/hr Chloride (96-109) mmol/L Carbon Dioxide (20.0-27.5) mmol/L BUN (9.0-27.0) mg/dL Creatinine (0.6-1.5) mg/dL Est GFR (CKD-EPI)AfAm (60.0-200.0) Est GFR (CKD-EPI)NonAf (60.0-200.0) BUN/Creatinine Ratio (12.00-20.00) Ratio Glucose (70-110) mg/dL POC Glucose (mg/dL) 427 H 361 H 317 H (75-99) mg/dL Calcium (8.7-10.3) mg/dL Iron (65-175) ug/dL TIBC (228-460) ug/dL % Saturation (15.00-50.00) Transferrin (204.0-354.0) mg/dL Ferritin (22.0-322.0) ng/mL C-Reactive Protein (0.00-0.80) mg/dL Procalcitonin (0.02-0.09) ng/mL Urine Glucose (UA) (Negative) Urine Ketones (Negative) Urine Blood (Negative) Urine Mucus (None) /hpf 05/19/21 05/19/21 05/19/21 Range/Units 02:04 05:59 06:29 WBC (3.8-10.6) k/uL RBC (4.30-5.90) m/uL Hgb (13.0-17.5) gm/dL Hct (39.0-53.0) % MCV (80.0-100.0) fL Neutrophils # (1.3-7.7) k/uL Neutrophils # (Manual) (1.3-7.7) k/uL Lymphocytes # (1.0-4.8) k/uL Lymphocytes # (Manual) (1.0-4.8) k/uL ESR (0-15) mm/hr Chloride 95 L (96-109) mmol/L Carbon Dioxide 29.2 H (20.0-27.5) mmol/L BUN 57.1 H (9.0-27.0) mg/dL Creatinine 1.8 H (0.6-1.5) mg/dL Est GFR (CKD-EPI)AfAm 45.7 L (60.0-200.0) Est GFR (CKD-EPI)NonAf 39.4 L (60.0-200.0) BUN/Creatinine Ratio 32.08 H (12.00-20.00) Ratio Glucose 186 H (70-110) mg/dL POC Glucose (mg/dL) 251 H 181 H (75-99) mg/dL Calcium 8.5 L (8.7-10.3) mg/dL Iron (65-175) ug/dL TIBC (228-460) ug/dL % Saturation (15.00-50.00) Transferrin (204.0-354.0) mg/dL Ferritin (22.0-322.0) ng/mL C-Reactive Protein 28.00 H (0.00-0.80) mg/dL Procalcitonin (0.02-0.09) ng/mL Urine Glucose (UA) (Negative) Urine Ketones (Negative) Urine Blood (Negative) Urine Mucus (None) /hpf 05/19/21 05/19/21 05/19/21 Range/Units 06:29 06:29 07:58 WBC 12.3 H (3.8-10.6) k/uL RBC 2.11 L (4.30-5.90) m/uL Hgb 7.0 L (13.0-17.5) gm/dL Hct 21.9 L (39.0-53.0) % MCV 103.6 H (80.0-100.0) fL Neutrophils # 11.1 H (1.3-7.7) k/uL Neutrophils # (Manual) 11.81 H (1.3-7.7) k/uL Lymphocytes # 0.3 L (1.0-4.8) k/uL Lymphocytes # (Manual) 0.12 L (1.0-4.8) k/uL ESR 124 H (0-15) mm/hr Chloride (96-109) mmol/L Carbon Dioxide (20.0-27.5) mmol/L BUN (9.0-27.0) mg/dL Creatinine (0.6-1.5) mg/dL Est GFR (CKD-EPI)AfAm (60.0-200.0) Est GFR (CKD-EPI)NonAf (60.0-200.0) BUN/Creatinine Ratio (12.00-20.00) Ratio Glucose (70-110) mg/dL POC Glucose (mg/dL) 243 H (75-99) mg/dL Calcium (8.7-10.3) mg/dL Iron (65-175) ug/dL TIBC (228-460) ug/dL % Saturation (15.00-50.00) Transferrin (204.0-354.0) mg/dL Ferritin (22.0-322.0) ng/mL C-Reactive Protein (0.00-0.80) mg/dL Procalcitonin 1.09 H (0.02-0.09) ng/mL Urine Glucose (UA) (Negative) Urine Ketones (Negative) Urine Blood (Negative) Urine Mucus (None) /hpf 05/19/21 05/19/21 05/19/21 Range/Units 10:25 12:39 15:01 WBC (3.8-10.6) k/uL RBC (4.30-5.90) m/uL Hgb (13.0-17.5) gm/dL Hct (39.0-53.0) % MCV (80.0-100.0) fL Neutrophils # (1.3-7.7) k/uL Neutrophils # (Manual) (1.3-7.7) k/uL Lymphocytes # (1.0-4.8) k/uL Lymphocytes # (Manual) (1.0-4.8) k/uL ESR (0-15) mm/hr Chloride (96-109) mmol/L Carbon Dioxide (20.0-27.5) mmol/L BUN (9.0-27.0) mg/dL Creatinine (0.6-1.5) mg/dL Est GFR (CKD-EPI)AfAm (60.0-200.0) Est GFR (CKD-EPI)NonAf (60.0-200.0) BUN/Creatinine Ratio (12.00-20.00) Ratio Glucose (70-110) mg/dL POC Glucose (mg/dL) 329 H 167 H 220 H (75-99) mg/dL Calcium (8.7-10.3) mg/dL Iron (65-175) ug/dL TIBC (228-460) ug/dL % Saturation (15.00-50.00) Transferrin (204.0-354.0) mg/dL Ferritin (22.0-322.0) ng/mL C-Reactive Protein (0.00-0.80) mg/dL Procalcitonin (0.02-0.09) ng/mL Urine Glucose (UA) (Negative) Urine Ketones (Negative) Urine Blood (Negative) Urine Mucus (None) /hpf 05/19/21 Range/Units 16:02 WBC (3.8-10.6) k/uL RBC (4.30-5.90) m/uL Hgb (13.0-17.5) gm/dL Hct (39.0-53.0) % MCV (80.0-100.0) fL Neutrophils # (1.3-7.7) k/uL Neutrophils # (Manual) (1.3-7.7) k/uL Lymphocytes # (1.0-4.8) k/uL Lymphocytes # (Manual) (1.0-4.8) k/uL ESR (0-15) mm/hr Chloride (96-109) mmol/L Carbon Dioxide (20.0-27.5) mmol/L BUN (9.0-27.0) mg/dL Creatinine (0.6-1.5) mg/dL Est GFR (CKD-EPI)AfAm (60.0-200.0) Est GFR (CKD-EPI)NonAf (60.0-200.0) BUN/Creatinine Ratio (12.00-20.00) Ratio Glucose (70-110) mg/dL POC Glucose (mg/dL) 219 H (75-99) mg/dL Calcium (8.7-10.3) mg/dL Iron (65-175) ug/dL TIBC (228-460) ug/dL % Saturation (15.00-50.00) Transferrin (204.0-354.0) mg/dL Ferritin (22.0-322.0) ng/mL C-Reactive Protein (0.00-0.80) mg/dL Procalcitonin (0.02-0.09) ng/mL Urine Glucose (UA) (Negative) Urine Ketones (Negative) Urine Blood (Negative) Urine Mucus (None) /hpf Microbiology - Last 24 Hours (Table) 05/17/21 07:45 Blood Culture Gram Stain - Preliminary Blood Blood Culture - Preliminary Presumptive Staph aureus 05/17/21 07:30 Blood Culture Gram Stain - Preliminary Blood Blood Culture - Preliminary Presumptive Staph aureus 05/18/21 05:57 Blood Culture Gram Stain - Preliminary Blood Blood Culture - Preliminary Staphylococcus aureus 05/18/21 16:57 Gram Stain - Preliminary Sputum Sputum Culture - Preliminary 05/18/21 05:57 Blood Culture - Final Blood
[2021-05-20 06:46] LABS: African American GFR (CKD) 58 (>60 ml/min/1.73 sqM); Anion Gap 4 mmol/L; Blood Urea Nitrogen 70 mg/dL (9-20); Calcium 8.6 mg/dL (8.4-10.2); Carbon Dioxide 34 mmol/L (22-30); Chloride 96 mmol/L (98-107); Glucose 146 mg/dL (74-99); Non-African American GFR(CKD) 50 (>60 ml/min/1.73 sqM); Potassium 3.7 mmol/L (3.5-5.1); Sodium 134 mmol/L (137-145)
[2021-05-20 06:52] LABS: Basophils % (A) 0 %; Eosinophils % (A) 0 %; HCT 22.3 % (39.0-53.0); Hypochromasia Slight; Lymphocytes # (A) 0.5 k/uL (1.0-4.8); Lymphocytes % (A) 5 %; MCH 31.4 pg (25.0-35.0); MCHC 30.3 g/dL (31.0-37.0); MCV 103.6 fL (80.0-100.0); Macrocytosis Slight; Mean Platelet Volume 8.8; Monocytes # (A) 0.6 k/uL (0-1.0); Monocytes % (A) 6 %; Neutrophils # (A) 8.6 k/uL (1.3-7.7); Neutrophils % (A) 87 %; Platelet Count 196 k/uL (150-450); RBC 2.15 m/uL (4.30-5.90); WBC 9.8 k/uL (3.8-10.6)
[2021-05-20 07:05] LABS: HGB 6.8 gm/dL (13.0-17.5)
[2021-05-20] MEDS: IPRATROPIUM-ALBUTEROL 3 ML NEB INHALATION SCH ×4 (08:12→20:36)
[2021-05-20] MEDS: SYMBICORT 160-4.5 MCG INHALER INHALATION SCH ×2 (08:12→20:36)
[2021-05-20 08:28] LABS: Glucose,Whole Blood 126 mg/dL (75-99)
[2021-05-20] MEDS: APIXABAN 2.5 MG TABLET PO SCH ×2 (08:28→20:46)
[2021-05-20] MEDS: allopurinoL 100 MG TAB PO SCH (08:31)
[2021-05-20] MEDS: PANTOPRAZOLE 40 MG TABLET PO SCH (08:31)
[2021-05-20] MEDS: FUROSEMIDE 40 MG TAB PO SCH ×3 (08:31→16:57)
[2021-05-20] MEDS: TAMSULOSIN 0.4 MG CAP.ER.24H PO SCH (08:31)
[2021-05-20] MEDS: MIDODRINE 5 MG TAB PO SCH ×3 (08:37→16:46)
[2021-05-20 09:31] LABS: Glucose,Whole Blood 219 mg/dL (75-99)
[2021-05-20] MEDS: HYDROcodone/APAP 5-325MG 1 EACH TAB PO PRN ×2 (09:59→20:46)
[2021-05-20 11:25] LABS: % Iron Saturation 20.36 (15.00-50.00)
--- NOTE | 2021-05-20 11:44 | XR ---
EXAMINATION TYPE: XR chest 1V portable DATE OF EXAM: 05/20/2021 Comparison: 05/18/2021 Clinical History: 65-year-old male copd Findings: Left anterior chest wall pacemaker generator with right atrial and right ventricular leads. Heart upp er limits of normal in size. Mild hyperinflation. Mild patchy interstitial densities in the lower paxton gs similar to slightly increased. No pleural effusion. Impression: COPD. Borderline heart size. Mild patchy basilar atelectasis and/or infiltrate similar to slightly in creased.
[2021-05-20 11:46] LABS: Glucose,Whole Blood 175 mg/dL (75-99)
[2021-05-20] MEDS ORDERED: MINERAL OIL-WHITE PETROLATUM 120 GM JAR TOPICAL PRN (13:08)
--- NOTE | 2021-05-20 13:24 | P.CONS ---
History of Present Illness - Reason for Consult Consult date: 05/20/21 wound care - History of Present Illness This is a 65-year-old gentleman being seen on [address] for nonhealing ulcerations to bilateral feet. Patient has no open ulcerations at this time. He does have multiple areas of scabbed over ulcerations however nothing is open or oozing. Patient states that they do a open periodically and the last time that it was opened was before he was hospitalized. Patient also has a stage II pressure ulcer to the coccyx and a stage II pressure ulcer to the left ear. The stage II pressure ulcer to the left ear has been epithelialized. Continue to use padding to the nasal cannula oxygen tubing. The ulceration to the coccyx was not observed. Patient refused to turn for an exam. Review Of Systems: Constitutional: No fever, no chills, no night sweats. No weight change. No weakness, fatigue or lethargy. No daytime sleepiness. Integumentary:reports wounds, no lesions. No rash or pruritus. No unusual bruising. No change in hair or nails. Physical exam: General Appearance: Alert, cooperative, no distress, appears stated age. Skin: See HPI all other Skin color, texture, tugor normal, no rashes or lesions. Neurologic: Alert oriented x3 Assessment: 1. Stage II pressure ulcer coccyx 2. Stage II pressure ulcer left ear 3. Diabetic foot ulcer healed Plan: 1. Coccyx ulceration: Apply triad, border foam change daily. Turn patient every 2 hours. Utilize air-filled cushion for sitting. 2. Pressure ulcer left ear, use padding with nasal cannula tubing 3. Diabetic foot ulcer bilateral heels. Apply Eucerin cream Dany wrap applied daily. Thank you for the consultation any questions please contact the wound care center DNP note has been reviewed and discussed with Dr. Simmons and the impression and plan of care has been directed as dictated. Past Medical History Past Medical History: Atrial Fibrillation, Heart Failure, COPD, Diabetes Mellitus, Deep Vein Thrombosis (DVT), GERD/Reflux, Hyperlipidemia, Hypertension, Pneumonia, Renal Disease, Respiratory Disorder, Skin Disorder, Sleep Apnea/CPAP/BIPAP, Vascular Disorder Additional Past Medical History / Comment(s): Pt recently admitted to [facility] on 08/02/20 with chf/acute on chronic renal disease, possible pneumonia. Pt tested covic+ on 08/20/20 at [facility] ER. Other hx: Chronic hypoxic respiratory failure and the patient OXYGEN dependent 5 L, previous history of left-sided pneumothorax requiring a Thoravent insertion, IDDM type II, paroxysmal AFIB, SSS with pacer, nonischemic cardiomyopathy, past alcoholism/DTs, diverticulosis, obstuctive sleep apnea but no Cpap since wt loss, sinusitis, neuropathy bilateral feet, elevated LFTs, BPH, CKD stag III, DVT R leg, hypomagnesemia, hypoalbuminemia, anemia, protein calorie malnutrition, PVD, current sores bilateral feet. History of Any Multi-Drug Resistant Organisms: None Reported Past Surgical History: Appendectomy, Cholecystectomy, Heart Catheterization, Pacemaker Additional Past Surgical History / Comment(s): Partial liver removed d/t adhesions, colonoscopies, bilateral eyes blepharoplasties, pacer Past Anesthesia/Blood Transfusion Reactions: Postoperative Nausea & Vomiting (PONV) Additional Past Anesthesia/Blood Transfusion Reaction / Comm: Pt states he has had PONV with gas only. Type of Cardiac Device: Permanent Pacemaker Device Placement Date:: 2017 Past Psychological History: Anxiety, Depression, Panic Disorder Smoking Status: Former smoker Past Alcohol Use History: None Reported Past Drug Use History: None Reported - Past Family History Mother Family Medical History: Thyroid Disorder Additional Family Medical History / Comment(s): . Father Additional Family Medical History / Comment(s): Father of diverticulitis,peritonitis at the age of 35yrs. Medications and Allergies Home Medications Medication Instructions Recorded Confirmed Type Tamsulosin [Flomax] 0.4 mg PO DAILY 06/23/16 05/17/21 History HYDROcodone/APAP 10-325MG [[place] 1 tab PO Q6H PRN 09/06/17 05/17/21 History 10-325] Ondansetron HCl [Zofran] 4 mg PO BID PRN 09/30/18 05/17/21 History Apixaban [Eliquis] 2.5 mg PO BID 01/11/19 05/17/21 History Insulin Aspart [NovoLOG Flexpen] See Protocol SQ AC-TID 08/02/20 05/17/21 History Insulin Glargine,Hum.rec.anlog 25 unit SQ DAILY 08/02/20 05/17/21 History [Lantus Solostar Pen] Levothyroxine Sodium [Synthroid] 25 mcg PO DAILY 08/02/20 05/17/21 History Metoprolol Succinate (ER) [Toprol 50 mg PO HS #30 tab.er.24h 08/31/20 05/17/21 Rx XL] Pantoprazole [Protonix] 40 mg PO DAILY #30 tab 08/31/20 05/17/21 Rx Dextrose Gel [Glutose 15 Gel] 1 applic MUCOUS MEM DIRECTED 05/17/21 05/17/21 History Dicyclomine [Bentyl] 20 mg PO TID PRN 05/17/21 05/17/21 History Fluticasone/Salmeterol [Advair 1 puff INHALATION RT-BID 05/17/21 05/17/21 History 500-50 Diskus] Furosemide [Lasix] 40 mg PO BID 05/17/21 05/17/21 History Ipratropium/Albuter 20-100Mcg 1 puff INHALATION RT-QID 05/17/21 05/17/21 History [Combivent Respimat 20-100Mcg Inhaler] Lidocaine 5% Patch [Lidoderm] 1 patch TOPICAL DAILY PRN 05/17/21 05/17/21 History Midodrine HCl [ProAmatine] 10 mg PO TID 05/17/21 05/17/21 History Triamcinolone 0.1% Cream [Kenalog 1 applic TOPICAL BID PRN 05/17/21 05/17/21 History 0.1% Cream] allopurinoL [Zyloprim] 200 mg PO DAILY 05/17/21 05/17/21 History predniSONE [Deltasone] 20 mg PO DAILY 05/17/21 05/17/21 History Allergies Allergy/AdvReac Type Severity Reaction Status Date / Time No Known Allergies Allergy Verified 05/17/21 09:51 Physical Exam Vitals: Vital Signs Temp Pulse Pulse Resp BP Pulse Ox 05/20/21 12:38 97.7 F 80 16 95 05/20/21 11:39 76 05/20/21 11:28 72 05/20/21 08:21 84 05/20/21 08:12 80 05/20/21 05:00 97.6 F 61 20 128/68 05/19/21 20:00 98.3 F 83 20 114/60 97 05/19/21 19:53 80 05/19/21 19:43 86 05/19/21 15:49 86 05/19/21 15:42 95 05/19/21 15:40 85 Intake and Output 05/19/21 05/20/21 05/20/21 22:59 06:59 14:59 Intake Total 46.645 126.916 22.902 Output Total 100 1110 Balance -53.355 -983.084 22.902 Intake: Intake, IV Titration 46.645 26.916 22.902 Amount Insulin Regular 100 unit 46.645 26.916 22.902 In Sodium Chloride 0.9% 100 ml @ Titrate IV .Q0M [facility] Rx#:[id number] Oral 100 Output: Urine 100 1110 Other: Voiding Method Urinal # Voids 3 2 Results CBC & Chem 7: 05/20/21 05:39 05/20/21 05:39 Labs: Abnormal Lab Results - Last 24 Hours (Table) 05/19/21 05/19/21 05/19/21 Range/Units 06:29 15:01 16:02 RBC (4.30-5.90) m/uL Hgb (13.0-17.5) gm/dL Hct (39.0-53.0) % MCV (80.0-100.0) fL MCHC (31.0-37.0) g/dL Neutrophils # (1.3-7.7) k/uL Lymphocytes # (1.0-4.8) k/uL Sodium (137-145) mmol/L Chloride (98-107) mmol/L Carbon Dioxide (22-30) mmol/L BUN (9-20) mg/dL Creatinine (0.66-1.25) mg/dL Glucose (74-99) mg/dL POC Glucose (mg/dL) 220 H 219 H (75-99) mg/dL Hemoglobin A1c 6.6 H (0.0-6.0) % Iron (65-175) ug/dL TIBC (228-460) ug/dL Transferrin (204.0-354.0) mg/dL Crossmatch 05/19/21 05/19/21 05/19/21 Range/Units 17:37 19:31 21:39 RBC (4.30-5.90) m/uL Hgb (13.0-17.5) gm/dL Hct (39.0-53.0) % MCV (80.0-100.0) fL MCHC (31.0-37.0) g/dL Neutrophils # (1.3-7.7) k/uL Lymphocytes # (1.0-4.8) k/uL Sodium (137-145) mmol/L Chloride (98-107) mmol/L Carbon Dioxide (22-30) mmol/L BUN (9-20) mg/dL Creatinine (0.66-1.25) mg/dL Glucose (74-99) mg/dL POC Glucose (mg/dL) 237 H 265 H 184 H (75-99) mg/dL Hemoglobin A1c (0.0-6.0) % Iron (65-175) ug/dL TIBC (228-460) ug/dL Transferrin (204.0-354.0) mg/dL Crossmatch 05/19/21 05/20/21 05/20/21 Range/Units 23:30 01:30 03:36 RBC (4.30-5.90) m/uL Hgb (13.0-17.5) gm/dL Hct (39.0-53.0) % MCV (80.0-100.0) fL MCHC (31.0-37.0) g/dL Neutrophils # (1.3-7.7) k/uL Lymphocytes # (1.0-4.8) k/uL Sodium (137-145) mmol/L Chloride (98-107) mmol/L Carbon Dioxide (22-30) mmol/L BUN (9-20) mg/dL Creatinine (0.66-1.25) mg/dL Glucose (74-99) mg/dL POC Glucose (mg/dL) 167 H 167 H 165 H (75-99) mg/dL Hemoglobin A1c (0.0-6.0) % Iron (65-175) ug/dL TIBC (228-460) ug/dL Transferrin (204.0-354.0) mg/dL Crossmatch 05/20/21 05/20/21 05/20/21 Range/Units 05:38 05:39 05:39 RBC (4.30-5.90) m/uL Hgb (13.0-17.5) gm/dL Hct (39.0-53.0) % MCV (80.0-100.0) fL MCHC (31.0-37.0) g/dL Neutrophils # (1.3-7.7) k/uL Lymphocytes # (1.0-4.8) k/uL Sodium 134 L (137-145) mmol/L Chloride 96 L (98-107) mmol/L Carbon Dioxide 34 H (22-30) mmol/L BUN 70 H (9-20) mg/dL Creatinine 1.46 H (0.66-1.25) mg/dL Glucose 146 H (74-99) mg/dL POC Glucose (mg/dL) 179 H (75-99) mg/dL Hemoglobin A1c (0.0-6.0) % Iron 46 L (65-175) ug/dL TIBC 224 L (228-460) ug/dL Transferrin 160.0 L (204.0-354.0) mg/dL Crossmatch 05/20/21 05/20/21 05/20/21 Range/Units 05:39 08:11 08:17 RBC 2.15 L (4.30-5.90) m/uL Hgb 6.8 L* (13.0-17.5) gm/dL Hct 22.3 L (39.0-53.0) % MCV 103.6 H (80.0-100.0) fL MCHC 30.3 L (31.0-37.0) g/dL Neutrophils # 8.6 H (1.3-7.7) k/uL Lymphocytes # 0.5 L (1.0-4.8) k/uL Sodium (137-145) mmol/L Chloride (98-107) mmol/L Carbon Dioxide (22-30) mmol/L BUN (9-20) mg/dL Creatinine (0.66-1.25) mg/dL Glucose (74-99) mg/dL POC Glucose (mg/dL) 126 H (75-99) mg/dL Hemoglobin A1c (0.0-6.0) % Iron (65-175) ug/dL TIBC (228-460) ug/dL Transferrin (204.0-354.0) mg/dL Crossmatch See Detail 05/20/21 05/20/21 Range/Units 09:27 11:39 RBC (4.30-5.90) m/uL Hgb (13.0-17.5) gm/dL Hct (39.0-53.0) % MCV (80.0-100.0) fL MCHC (31.0-37.0) g/dL Neutrophils # (1.3-7.7) k/uL Lymphocytes # (1.0-4.8) k/uL Sodium (137-145) mmol/L Chloride (98-107) mmol/L Carbon Dioxide (22-30) mmol/L BUN (9-20) mg/dL Creatinine (0.66-1.25) mg/dL Glucose (74-99) mg/dL POC Glucose (mg/dL) 219 H 175 H (75-99) mg/dL Hemoglobin A1c (0.0-6.0) % Iron (65-175) ug/dL TIBC (228-460) ug/dL Transferrin (204.0-354.0) mg/dL Crossmatch Microbiology - Last 24 Hours (Table) 05/17/21 07:45 Blood Culture Gram Stain - Preliminary Blood Blood Culture - Preliminary Presumptive Staph aureus 05/17/21 07:30 Blood Culture Gram Stain - Preliminary Blood Blood Culture - Preliminary Presumptive Staph aureus 05/18/21 05:57 Blood Culture Gram Stain - Preliminary Blood Blood Culture - Preliminary Staphylococcus aureus Assessment and Plan (1) Pressure injury of coccygeal region, stage 2 Current Visit: Yes Status: Acute Code(s): L89.152 - PRESSURE ULCER OF SACRAL REGION, STAGE 2 SNOMED Code(s): 222419170 (2) Pressure ulcer of other site, stage 2 Current Visit: Yes Status: Acute Code(s): L89.892 - PRESSURE ULCER OF OTHER SITE, STAGE 2 SNOMED Code(s): 608972421 (3) Diabetic foot ulcer Current Visit: Yes Status: Acute Code(s): E11.621 - TYPE 2 DIABETES MELLITUS WITH FOOT ULCER; L97.509 - NON-PRESSURE CHRONIC ULCER OTH PRT UNSP FOOT W UNSP SEVERITY SNOMED Code(s): 114668664
[2021-05-20 13:36] LABS: Glucose,Whole Blood 197 mg/dL (75-99)
[2021-05-20] MEDS: HYDROPHILIC CREAM 180 GM TUBE TOPICAL SCH ×2 (13:43→15:43)
[2021-05-20] MEDS: SODIUM FERRIC GLUCONAT-SUCROSE 125 MG in SODIUM CHLORIDE 0.9% 100 ML IVPB SCH (13:43)
--- NOTE | 2021-05-20 14:55 | PN ---
PROGRESS NOTE DATE OF SERVICE: 05/20/2021 REASON FOR FOLLOWUP: MSSA bacteremia. INTERVAL HISTORY: The patient is afebrile. The patient is breathing slightly comfortably. The patient denies having any chest pain, shortness of breath. No worsening cough or sputum production. Pain to the left arm, but no worsening, and no diarrhea. PHYSICAL EXAMINATION: Blood pressure is 128/68 with a pulse of 51, temperature 97.6. He is 97% on 4 L nasal cannula. General description is a middle-aged male lying in bed in no distress. Respiratory system: Unlabored breathing, decreased intensity of breath sounds. No wheeze. Heart S1, S2. Regular rate and rhythm. Abdomen soft, no tenderness. Left lower extremity does have some bruising but no definite cellulitis. Lower extremity swelling with minimal redness to the left leg. LABS: Hemoglobin 6.9, white count 9.8 from initial high of 19.9. Creatinine is 1.46. DIAGNOSTIC IMPRESSION AND PLAN: Patient with MSSA bacteremia. Cultures were positive for source less likely or endovascular source. Blood culture repeat will be followed, and if any persistent bacteremia, will echocardiogram. For now, continue the cefazolin and monitor his clinical course closely. MMODL / IJN: [id number] /
[2021-05-20] MEDS: INSULIN REGULAR 100 UNIT in SODIUM CHLORIDE 0.9% 100 ML IV SCH (15:25)
--- NOTE | 2021-05-20 16:07 | PN ---
PROGRESS NOTE Patient is seen for followup for acute kidney injury on top of chronic kidney disease. The patient is currently being diuresed. His renal function has improved. Serum creatinine is down to 1.4 mg/dL. This morning, hemoglobin was down to 6.8 g/dL. No active bleeding noted. Patient is having a chest x-ray performed. PHYSICAL EXAMINATION: Blood pressure 128/68, heart rate 80 per minute. Patient is afebrile. Examination of the heart S1, S2. Examination of lungs decreased breath sounds at the bases. Abdomen is soft, nontender. Examination of lower extremities shows trace edema bilaterally. Left upper extremity is wrapped. There is discoloration noted in the fingers. RES[employer] C[employer]GIVER exam grossly intact. LAB: Show sodium 134, potassium 3.7, BUN 70, creatinine 1.4, hemoglobin 6.8 g/dL. ASSESSMENT: 1. Acute kidney injury ATN/cardiorenal currently improved. Continue off vancomycin. Continue with the midodrine. 2. Staph aureus bacteremia, being followed by Infectious Disease, maintained on cefazolin. 3. Acute hypoxic respiratory failure with chronic obstructive pulmonary disease. 4. Paroxysmal atrial fibrillation. 5. Chronic kidney disease stage 3 baseline creatinine 1.5-1.7 secondary to nephrosclerosis. 6. Hypervolemia. Change Lasix to IV for 24-48 hours. 7. Anemia, no active bleeding noted. Iron saturation was low. Patient is receiving IV iron. He is maintained on Aranesp. PLAN: Continue IV iron. Change Lasix to IV. Repeat labs in a.m. MMODL / IJN: [id number] /
[2021-05-20 16:45] LABS: Glucose,Whole Blood 271 mg/dL (75-99)
[2021-05-20 18:43] LABS: Glucose,Whole Blood 191 mg/dL (75-99)
[2021-05-20] MEDS: METOPROLOL SUCCINATE (ER) 50 MG TAB.ER.24H PO SCH (20:46)
[2021-05-20] MEDS: FUROSEMIDE 10 MG/ML 4 ML VIAL IV SCH (20:47)
[2021-05-20 20:51] LABS: Glucose,Whole Blood 150 mg/dL (75-99)
[2021-05-20] MEDS: guaiFENesin 600 MG TABLET.ER PO SCH (20:55)
[2021-05-20 23:07] LABS: Glucose,Whole Blood 188 mg/dL (75-99)
[2021-05-21 01:31] LABS: Glucose,Whole Blood 159 mg/dL (75-99)
[2021-05-21] MEDS: HYDROcodone/APAP 5-325MG 1 EACH TAB PO PRN ×3 (02:35→20:38)
[2021-05-21 03:45] LABS: Glucose,Whole Blood 208 mg/dL (75-99)
--- NOTE | 2021-05-21 03:48 | P.PN ---
Subjective Progress Note Date: 05/20/21 This is a 65-year-old male who was recently admitted with increasing shortness of breath and is being closely monitored. Cardiology has evaluated the patient along with orthopedics and no plans for surgical intervention of the left wrist fracture s/p fall a few weeks ago. Patient to continue with sling and splint and continue to elevate. Pulmonary also following for possible pneumonia and will continue with breathing inhalational treatments and oxygen supplementation. Patient is continued on oral lasix and nephrology following as well for acute kidney injury. Magnesium low and will replace per protocol and repeat am labs. Patient also continues on ceftriaxone and vancomycin for possible pneumonia. Steroids discontinued. Patient blood sugars have been slightly elevated and will continue with sliding scale and long acting and monitor closely. Patient is weak and PT/OT following recommending RAJAT for continued strength and mobility. Social work consulted. 05/19/2021 Patient is seen in follow-up today with multiple medical consultations following. Patient being followed closely by nephrology and lasix continues with by mouth and kidney functions stable with creatinine at 1.8. Patient was maintained on vancomycin and ceftriaxone and blood cultures showing MSSA with infectious disease following closely. IV antibiotics being transitioned to cefazolin and repeat blood cultures ordered to monitor for clearance of bacteremia. Patient states that he has followed with the wound center for chronic diabetic ulcers and is concerned about his feet with wounds that are not being treated. On exam there are some chronic appearing ulcers noted to the left second and fourth toe along with the right fourth toe with no drainage or swelling noted and no surrounding redness or cellulitis noted. Extremely dry skin noted to bilateral lower extremities of which patient states is always like that. Will consult wounds and appreciate recommendations. Patient states they have continued with a cream in the past but unsure of the name of it. Patient is afebrile and denies any worsening shortness of breath. Left upper extremity with continued swelling noted and elevated on some pillows. 05/20/2021 Patient is seen today in follow-up this morning and being closely monitored. Patient continued on IV cefazolin with ID following closely. Blood cultures ordered daily and continue to show staph aureus. Monitoring for clearance. Sputum culture pending. Patient was evaluated by wounds and recommendations made for continued wound care. Patient also continues with left arm swelling although no worse and pain is currently controlled. Discoloration and bruising noted of the left upper extremity. Recommend to continue with conservative management per orthopedics and keep arm elevated. Nephrology also following and has changed lasix to IV to monitor closely. chest xray ordered. Hemoglobin was found to be low at 6.8 and 1 unit of PRBC ordered however there is a shortage of blood in the hospital and currently only transfusing those under 6.5. Iron studies low and will add IV iron and repeat am labs. Labs: WBC is 9.8, hemoglobin is 6.8, platelets are 196, sodium is 134, potassium 3.7, BUN 70, creatinine 1.46, iron is 46, TIBC is 224, transferrin is 160 Review of systems: Constitutional: No reports of fatigue, fever or chills Cardio: No reports of chest pain or palpitations Respiratory: No reports of worsening shortness of breath or cough GI: No reports of nausea, vomiting, or diarrhea : no reports of dysuria or retention Neuro: reports continued weakness, denies numbness, reports left arm pain All medications have been reviewed Active Medications Hydrocodone Bitart/Acetaminophen (Hydrocodone/Apap 5-325mg 1 Each Tab) 1 each PO Q4HR PRN PRN Reason: Pain Last Admin: 05/20/21 09:59 Dose: 1 each Documented by: Albuterol/Ipratropium (Ipratropium-Albuterol 3 Ml Neb) 3 ml INHALATION RT-QID [facility] Last Admin: 05/20/21 16:05 Dose: 3 ml Documented by: Albuterol/Ipratropium (Ipratropium-Albuterol 3 Ml Neb) 3 ml INHALATION RT-QID PRN PRN Reason: Shortness Of Breath Or Wheezing Allopurinol (Allopurinol 100 Mg Tab) 200 mg PO DAILY [facility] Last Admin: 05/20/21 08:31 Dose: 200 mg Documented by: Apixaban (Apixaban 2.5 Mg Tablet) 2.5 mg PO BID [facility]; Protocol Last Admin: 05/20/21 08:28 Dose: Not Given Documented by: Budesonide/Formoterol Fumarate (Symbicort 160-4.5 Mcg Inhaler) 2 puff INHALATION RT-BID [facility] Last Admin: 05/20/21 08:12 Dose: 2 puff Documented by: Darbepoetin Hubert (Darbepoetin Hubert 60 Mcg/0.3 Ml Syringe) 60 mcg SQ Q7D [facility] Last Admin: 05/19/21 17:26 Dose: 60 mcg Documented by: Dicyclomine HCl (Dicyclomine 10 Mg Cap) 20 mg PO TID PRN PRN Reason: IBS Furosemide (Furosemide 10 Mg/Ml 4 Ml Vial) 40 mg IV Q12HR [facility] Insulin Human Regular 100 unit (/ Sodium Chloride) 101 mls @ 0 mls/hr IV .Q0M [facility]; Protocol Last Admin: 05/20/21 15:25 Dose: 3.5 units/hr, 3.535 mls/hr Documented by: Cefazolin Sodium 2 gm/ Sodium (Chloride) 50 mls @ 100 mls/hr IVPB Q8HR [facility] Last Admin: 05/20/21 08:31 Dose: 100 mls/hr Documented by: Ferric Sodium Gluconate 125 mg (/ Sodium Chloride) 110 mls @ 100 mls/hr IVPB DAILY [facility] Stop: 05/22/21 10:05 Last Admin: 05/20/21 13:43 Dose: 100 mls/hr Documented by: Levothyroxine Sodium (Levothyroxine 25 Mcg Tab) 25 mcg PO DAILY@0630 [facility] Last Admin: 05/20/21 05:40 Dose: 25 mcg Documented by: Metoprolol Succinate (Metoprolol Succinate (Er) 50 Mg Tab.Er.24h) 50 mg PO HS [facility] Last Admin: 05/19/21 22:44 Dose: 50 mg Documented by: Midodrine (Midodrine 5 Mg Tab) 10 mg PO AC-TID [facility] Last Admin: 05/20/21 12:30 Dose: Not Given Documented by: Miscellaneous Information (Pneumonia Protocol Utilized 1 Each Misc) 1 each PO ONCE PRN PRN Reason: Per Protocol Miscellaneous Information (Magnesium Replacement Protocol 1 Each Misc) 1 each MISCELLANE DAILY PRN; Protocol PRN Reason: Per Protocol Morphine Sulfate (Morphine Sulfate 4 Mg/Ml Syringe) 4 mg IVP Q4HR PRN PRN Reason: Pain Last Admin: 05/20/21 08:18 Dose: 4 mg Documented by: Multi-Ingred Cream/Lotion/Oil/Oint (Hydrophilic Cream 180 Gm Tube) 1 applic TOPICAL DAILY [facility]; Protocol Last Admin: 05/20/21 15:43 Dose: 1 applic Documented by: Multi-Ingred Cream/Lotion/Oil/Oint (Mineral Oil-White Petrolatum 120 Gm Jar) 1 applic TOPICAL DAILY PRN; Protocol PRN Reason: Dry Skin Ondansetron HCl (Ondansetron 4 Mg Tab) 4 mg PO BID PRN PRN Reason: Nausea Pantoprazole Sodium (Pantoprazole 40 Mg Tablet) 40 mg PO DAILY@0730 [facility] Last Admin: 05/20/21 08:31 Dose: 40 mg Documented by: Tamsulosin HCl (Tamsulosin 0.4 Mg Cap.Er.24h) 0.4 mg PO DAILY [facility] Last Admin: 05/20/21 08:31 Dose: 0.4 mg Documented by: Triamcinolone Acetonide (Triamcinolone 0.1% Cream 80 Gm Tube) 1 applic TOPICAL BID PRN; Protocol PRN Reason: Rash Physical Exam: Gen: This is a 65-year-old male who is awake, alert and oriented x3, well- developed, well-nourished. Temp is 97.6 F, pulse is 61, respirations are 20, blood pressure is 128/68, oxygen saturation is 95% on 4 liters via nasal cannula HEENT: Head is atraumatic, normocephalic. Pupils equal, round. Sclerae is anicteric. NECK: Supple. No JVD. No lymphadenopathy. No thyromegaly. LUNGS: Breath sounds diminished with some mild scattered rhonchi and minimal expiratory wheezing noted. No intercostal retractions. HEART: S1, S2 are muffled ABDOMEN: Soft. Bowel sounds are present. No masses. No tenderness. EXTREMITIES: No pedal edema. No calf tenderness. left upper extremity with continued swelling and elevated on pillow. NEUROLOGICAL: Patient is asleep but arousable, confused, diffusely weak . skin: dry, flaky skin noted to bilateral lower extremities Assessment: Shortness of breath, possibly multifactorial with chronic obstructive pulmonary disease acute exacerbation with acute purulent tracheobronchitis, early pneumonia and as well as congestive heart failure, acute exacerbation with acute hypoxic respiratory failure bacteremia with MSSA Chronic kidney disease stage III Hyponatremia Hyperkalemia Hypomagnesemia stage II pressure ulcer to coccyx and left ear Troponin 0.05, indeterminate possibly myocardial infarction or secondary to resp iratory difficulties Anemia, macrocytic Increased WBC Left arm fracture recently and fall Gait dysfunction Change in mental status, acute metabolic encephalopathy, multifactorial History of atrial fibrillation, chronic History of congestive heart failure History of COPD Diabetes mellitus type 2, uncontrolled with hyperglycemia History of DVT Gastroesophageal reflux disease Hyperlipidemia history of pneumonia History of respiratory disorder history of sleep apnea History of recent Covid positivity history of covid infection last year history of chronic hypoxic respiratory failure on 5 L via nasal cannula chronic diabetic foot ulcers to bilateral heals, healed History of sick sinus syndrome history of appendectomy History of cholecystectomy History of anxiety, depression, panic disorder Plan: Recommend to continue with current medications, management, and symptomatic treatment. Orthopedics evaluated the patient and no plans for surgical intervention at this time and continue with conservative treatment and angel wrapping to the left upper extremity. Cardiology recommends resuming Eliquis and will follow as needed. Nephrology and pulmonary following. Patient to continue IV cefazolin as blood cultures are positive for mssa. ID following closely. Repeat blood cultures showing staph aureus and daily blood cultures ordered. Blood sugars elevated and recommend close monitoring and continue with insulin drip for close monitoring and control. More controlled and will consider trans itioning to sliding scale and long acting. Chest xray shows COPD with mild patchy basilar atelectasis and or infiltrate similar to slightly increased. Patient continues on Lasix and nephrology following closely and transitioning to IV lasix for the next 24 hours or so. Replace electrolytes per protocol and repeat am labs. Hemoglobin was found to be 6.8 although shortage of blood product in the hospital and only transfusing those 6.5 and under. Iron studies low and will add IV iron. Occult blood ordered. Wound care ordered and was evaluated by the wound care [employer]. Recommendations made. Recommend frequent position changes. Social work following and ECF being planned. Due to multiple complex medical issues prognosis is guarded. Objective - Vital Signs Vital signs: Vital Signs Temp 97.6 F 05/20/21 05:00 Pulse 76 05/20/21 11:39 Resp 20 05/20/21 05:00 BP 128/68 05/20/21 05:00 Pulse Ox 97 05/19/21 20:00 Intake & Output 05/19/21 05/20/21 05/20/21 18:59 06:59 18:59 Intake Total 79.554 154.809 10.706 Output Total 1210 Balance 79.554 -1055.191 10.706 Weight 104.326 kg Intake: Intake, IV Titration 79.554 54.809 10.706 Amount Insulin Regular 100 unit 79.554 54.809 10.706 In Sodium Chloride 0.9% 100 ml @ Titrate IV .Q0M [facility] Rx#:[id number] Oral 100 Output: Urine 1210 Other: Voiding Method Urinal Urinal # Voids 3 2 - Labs CBC & Chem 7: 05/20/21 05:39 05/20/21 05:39 Labs: Abnormal Lab Results - Last 24 Hours (Table) 05/19/21 05/19/21 05/19/21 Range/Units 06:29 12:39 15:01 RBC (4.30-5.90) m/uL Hgb (13.0-17.5) gm/dL Hct (39.0-53.0) % MCV (80.0-100.0) fL MCHC (31.0-37.0) g/dL Neutrophils # (1.3-7.7) k/uL Lymphocytes # (1.0-4.8) k/uL Sodium (137-145) mmol/L Chloride (98-107) mmol/L Carbon Dioxide (22-30) mmol/L BUN (9-20) mg/dL Creatinine (0.66-1.25) mg/dL Glucose (74-99) mg/dL POC Glucose (mg/dL) 167 H 220 H (75-99) mg/dL Hemoglobin A1c 6.6 H (0.0-6.0) % Iron (65-175) ug/dL TIBC (228-460) ug/dL Transferrin (204.0-354.0) mg/dL Crossmatch 05/19/21 05/19/21 05/19/21 Range/Units 16:02 17:37 19:31 RBC (4.30-5.90) m/uL Hgb (13.0-17.5) gm/dL Hct (39.0-53.0) % MCV (80.0-100.0) fL MCHC (31.0-37.0) g/dL Neutrophils # (1.3-7.7) k/uL Lymphocytes # (1.0-4.8) k/uL Sodium (137-145) mmol/L Chloride (98-107) mmol/L Carbon Dioxide (22-30) mmol/L BUN (9-20) mg/dL Creatinine (0.66-1.25) mg/dL Glucose (74-99) mg/dL POC Glucose (mg/dL) 219 H 237 H 265 H (75-99) mg/dL Hemoglobin A1c (0.0-6.0) % Iron (65-175) ug/dL TIBC (228-460) ug/dL Transferrin (204.0-354.0) mg/dL Crossmatch 05/19/21 05/19/21 05/20/21 Range/Units 21:39 23:30 01:30 RBC (4.30-5.90) m/uL Hgb (13.0-17.5) gm/dL Hct (39.0-53.0) % MCV (80.0-100.0) fL MCHC (31.0-37.0) g/dL Neutrophils # (1.3-7.7) k/uL Lymphocytes # (1.0-4.8) k/uL Sodium (137-145) mmol/L Chloride (98-107) mmol/L Carbon Dioxide (22-30) mmol/L BUN (9-20) mg/dL Creatinine (0.66-1.25) mg/dL Glucose (74-99) mg/dL POC Glucose (mg/dL) 184 H 167 H 167 H (75-99) mg/dL Hemoglobin A1c (0.0-6.0) % Iron (65-175) ug/dL TIBC (228-460) ug/dL Transferrin (204.0-354.0) mg/dL Crossmatch 05/20/21 05/20/21 05/20/21 Range/Units 03:36 05:38 05:39 RBC (4.30-5.90) m/uL Hgb (13.0-17.5) gm/dL Hct (39.0-53.0) % MCV (80.0-100.0) fL MCHC (31.0-37.0) g/dL Neutrophils # (1.3-7.7) k/uL Lymphocytes # (1.0-4.8) k/uL Sodium (137-145) mmol/L Chloride (98-107) mmol/L Carbon Dioxide (22-30) mmol/L BUN (9-20) mg/dL Creatinine (0.66-1.25) mg/dL Glucose (74-99) mg/dL POC Glucose (mg/dL) 165 H 179 H (75-99) mg/dL Hemoglobin A1c (0.0-6.0) % Iron 46 L (65-175) ug/dL TIBC 224 L (228-460) ug/dL Transferrin 160.0 L (204.0-354.0) mg/dL Crossmatch 05/20/21 05/20/21 05/20/21 Range/Units 05:39 05:39 08:11 RBC 2.15 L (4.30-5.90) m/uL Hgb 6.8 L* (13.0-17.5) gm/dL Hct 22.3 L (39.0-53.0) % MCV 103.6 H (80.0-100.0) fL MCHC 30.3 L (31.0-37.0) g/dL Neutrophils # 8.6 H (1.3-7.7) k/uL Lymphocytes # 0.5 L (1.0-4.8) k/uL Sodium 134 L (137-145) mmol/L Chloride 96 L (98-107) mmol/L Carbon Dioxide 34 H (22-30) mmol/L BUN 70 H (9-20) mg/dL Creatinine 1.46 H (0.66-1.25) mg/dL Glucose 146 H (74-99) mg/dL POC Glucose (mg/dL) (75-99) mg/dL Hemoglobin A1c (0.0-6.0) % Iron (65-175) ug/dL TIBC (228-460) ug/dL Transferrin (204.0-354.0) mg/dL Crossmatch See Detail 05/20/21 05/20/21 05/20/21 Range/Units 08:17 09:27 11:39 RBC (4.30-5.90) m/uL Hgb (13.0-17.5) gm/dL Hct (39.0-53.0) % MCV (80.0-100.0) fL MCHC (31.0-37.0) g/dL Neutrophils # (1.3-7.7) k/uL Lymphocytes # (1.0-4.8) k/uL Sodium (137-145) mmol/L Chloride (98-107) mmol/L Carbon Dioxide (22-30) mmol/L BUN (9-20) mg/dL Creatinine (0.66-1.25) mg/dL Glucose (74-99) mg/dL POC Glucose (mg/dL) 126 H 219 H 175 H (75-99) mg/dL Hemoglobin A1c (0.0-6.0) % Iron (65-175) ug/dL TIBC (228-460) ug/dL Transferrin (204.0-354.0) mg/dL Crossmatch Microbiology - Last 24 Hours (Table) 05/17/21 07:45 Blood Culture Gram Stain - Preliminary Blood Blood Culture - Preliminary Presumptive Staph aureus 05/17/21 07:30 Blood Culture Gram Stain - Preliminary Blood Blood Culture - Preliminary Presumptive Staph aureus 05/18/21 05:57 Blood Culture Gram Stain - Preliminary Blood Blood Culture - Preliminary Staphylococcus aureus 05/18/21 16:57 Gram Stain - Preliminary Sputum Sputum Culture - Preliminary
[2021-05-21 06:19] LABS: Glucose,Whole Blood 120 mg/dL (75-99)
[2021-05-21] MEDS: MIDODRINE 5 MG TAB PO SCH ×3 (07:04→17:54)
[2021-05-21] MEDS: FUROSEMIDE 10 MG/ML 4 ML VIAL IV SCH ×2 (07:06→20:38)
[2021-05-21] MEDS: allopurinoL 100 MG TAB PO SCH (07:07)
[2021-05-21] MEDS: MORPHINE SULFATE 4 MG/ML SYRINGE IVP PRN ×2 (07:07→15:39)
[2021-05-21] MEDS: LEVOTHYROXINE 25 MCG TAB PO SCH (07:07)
[2021-05-21] MEDS: PANTOPRAZOLE 40 MG TABLET PO SCH (07:07)
[2021-05-21] MEDS: TAMSULOSIN 0.4 MG CAP.ER.24H PO SCH (07:07)
[2021-05-21] MEDS: guaiFENesin 600 MG TABLET.ER PO SCH ×2 (07:07→20:39)
[2021-05-21] MEDS: HYDROPHILIC CREAM 180 GM TUBE TOPICAL SCH (07:09)
[2021-05-21] MEDS: IPRATROPIUM-ALBUTEROL 3 ML NEB INHALATION SCH ×4 (07:30→19:14)
[2021-05-21] MEDS: SYMBICORT 160-4.5 MCG INHALER INHALATION SCH ×2 (07:30→19:15)
[2021-05-21 07:45] LABS: Glucose,Whole Blood 155 mg/dL (75-99)
[2021-05-21 07:56] LABS: Basophils % (A) 0 %; Eosinophils # (A) 0.1 k/uL (0-0.7); Eosinophils % (A) 1 %; HCT 24.3 % (39.0-53.0); HGB 7.6 gm/dL (13.0-17.5); Hypochromasia Slight; Lymphocytes % (A) 12 %; MCH 32.2 pg (25.0-35.0); MCHC 31.1 g/dL (31.0-37.0); MCV 103.6 fL (80.0-100.0); Macrocytosis Slight; Mean Platelet Volume 7.9; Monocytes # (A) 0.6 k/uL (0-1.0); Monocytes % (A) 7 %; Neutrophils # (A) 6.1 k/uL (1.3-7.7); Neutrophils % (A) 78 %; Platelet Count 225 k/uL (150-450); RBC 2.34 m/uL (4.30-5.90); RDW 14.8 % (11.5-15.5); WBC 7.9 k/uL (3.8-10.6)
[2021-05-21 08:05] LABS: African American GFR (CKD) 57 (>60 ml/min/1.73 sqM); Anion Gap 2 mmol/L; Blood Urea Nitrogen 57 mg/dL (9-20); Calcium 8.8 mg/dL (8.4-10.2); Carbon Dioxide 38 mmol/L (22-30); Chloride 97 mmol/L (98-107); Glucose 123 mg/dL (74-99); Non-African American GFR(CKD) 49 (>60 ml/min/1.73 sqM); Potassium 3.8 mmol/L (3.5-5.1); Sodium 137 mmol/L (137-145)
[2021-05-21] MEDS: SODIUM FERRIC GLUCONAT-SUCROSE 125 MG in SODIUM CHLORIDE 0.9% 100 ML IVPB SCH (09:04)
[2021-05-21 09:14] LABS: Glucose,Whole Blood 160 mg/dL (75-99)
[2021-05-21] MEDS: APIXABAN 2.5 MG TABLET PO SCH ×2 (09:42→20:39)
[2021-05-21 12:34] LABS: Glucose,Whole Blood 263 mg/dL (75-99)
[2021-05-21] MEDS ORDERED: SALINE NASAL GEL 14.1 GM TUBE NASAL PRN (13:10)
[2021-05-21 14:18] LABS: Glucose,Whole Blood 213 mg/dL (75-99)
[2021-05-21 16:09] LABS: Glucose,Whole Blood 154 mg/dL (75-99)
[2021-05-21 18:05] LABS: Glucose,Whole Blood 161 mg/dL (75-99)
--- NOTE | 2021-05-21 18:20 | PN ---
PROGRESS NOTE Patient is seen for followup for acute kidney injury and chronic kidney disease. The patient's serum creatinine had improved to around 1.48, staying there now for the last couple of days. It is down from 2.3 on initial admission. He has persistent Staph aureus bacteremia and is being followed by ID. No clear-cut source identified. Currently being worked up for endocarditis. EXAMINATION: Today blood pressure is 123/67, heart rate 90 per minute. Patient is afebrile. Examination of the heart S1, S2. Examination of the lungs, decreased breath sounds at the bases. Abdomen is soft. Examination of lower extremities shows edema 1+ bilaterally. [employer]IC exam grossly intact. Patient's left upper arm is edematous with changes in the skin as well. JET MECH[employer]IC exam grossly intact. LAB: Show hemoglobin 7.6, sodium 137, potassium 3.8, BUN 57, creatinine 1.48, calcium 8.8. ASSESSMENT: 1. Acute kidney injury, mostly cardiorenal, currently slightly improved. Continue with IV Lasix. 2. Staph aureus bacteremia, maintained on cefazolin, being followed by ID. Possible endovascular source. 3. Left arm swelling and discoloration status post fall and fracture. PLAN: Continue with IV Lasix. Repeat labs in a.m. Encourage increased oral intake. MMODL / IJN: [id number] /
[2021-05-21 20:08] LABS: Glucose,Whole Blood 321 mg/dL (75-99)
[2021-05-21] MEDS: METOPROLOL SUCCINATE (ER) 50 MG TAB.ER.24H PO SCH (20:39)
[2021-05-21] MEDS: INSULIN REGULAR 100 UNIT in SODIUM CHLORIDE 0.9% 100 ML IV SCH (21:37)
[2021-05-21 22:27] LABS: Glucose,Whole Blood 218 mg/dL (75-99)
--- NOTE | 2021-05-21 22:56 | PN ---
PROGRESS NOTE DATE OF SERVICE: 05/21/2021 REASON FOR FOLLOWUP: MSSA bacteremia, possible cellulitis. INTERVAL HISTORY: The patient is afebrile and the patient is breathing comfortably. The patient denies having any chest pain, shortness of breath. He continues to have a cough with occasional sputum production. No abdominal pain or any worsening pain to the left upper extremity. PHYSICAL EXAMINATION: His blood pressure is 128/72 with a pulse of 64, temperature 98. He is % on 4 L nasal cannula. General description is a middle-aged male lying in bed in no distress. Respiratory system: Unlabored breathing, decreased intensity of breath sounds. No wheeze. Heart S1, S2. Regular rate and rhythm. Abdomen soft, no tenderness. Left upper extremity is currently some redness. No drainage. LABS: Blood culture repeat has been negative. DIAGNOSTIC IMPRESSION AND PLAN: Patient with MSSA bacteremia pneumonia cefazolin. Plan is for 2 weeks of IV cefazolin from a negative blood culture and close outpatient followup. MMODL / IJN: [id number] /
[2021-05-22 00:11] LABS: Glucose,Whole Blood 85 mg/dL (75-99)
[2021-05-22] MEDS: MORPHINE SULFATE 4 MG/ML SYRINGE IVP PRN ×3 (00:45→14:35)
[2021-05-22 01:23] LABS: Glucose,Whole Blood 104 mg/dL (75-99)
[2021-05-22 03:04] LABS: Glucose,Whole Blood 160 mg/dL (75-99)
[2021-05-22] MEDS: HYDROcodone/APAP 5-325MG 1 EACH TAB PO PRN ×3 (04:07→20:18)
[2021-05-22 05:29] LABS: Glucose,Whole Blood 160 mg/dL (75-99)
[2021-05-22] MEDS: LEVOTHYROXINE 25 MCG TAB PO SCH (05:56)
[2021-05-22 06:27] LABS: Basophils % (A) 0 %; Eosinophils # (A) 0.1 k/uL (0-0.7); Eosinophils % (A) 1 %; HCT 24.1 % (39.0-53.0); HGB 7.5 gm/dL (13.0-17.5); Hypochromasia Slight; Lymphocytes # (A) 1.4 k/uL (1.0-4.8); Lymphocytes % (A) 12 %; MCH 32.2 pg (25.0-35.0); MCHC 31.2 g/dL (31.0-37.0); Macrocytosis Slight; Mean Platelet Volume 7.9; Monocytes # (A) 0.6 k/uL (0-1.0); Monocytes % (A) 5 %; Neutrophils # (A) 9.4 k/uL (1.3-7.7); Neutrophils % (A) 81 %; Platelet Count 277 k/uL (150-450); RBC 2.34 m/uL (4.30-5.90); RDW 14.3 % (11.5-15.5); WBC 11.6 k/uL (3.8-10.6)
[2021-05-22 06:37] LABS: African American GFR (CKD) 61 (>60 ml/min/1.73 sqM); Anion Gap 3 mmol/L; Blood Urea Nitrogen 47 mg/dL (9-20); Calcium 8.9 mg/dL (8.4-10.2); Chloride 93 mmol/L (98-107); Glucose 148 mg/dL (74-99); Non-African American GFR(CKD) 53 (>60 ml/min/1.73 sqM); Potassium 3.5 mmol/L (3.5-5.1); Sodium 136 mmol/L (137-145)
[2021-05-22 06:43] LABS: Carbon Dioxide 40 mmol/L (22-30)
[2021-05-22] MEDS: IPRATROPIUM-ALBUTEROL 3 ML NEB INHALATION SCH ×4 (07:37→19:37)
[2021-05-22] MEDS: SYMBICORT 160-4.5 MCG INHALER INHALATION SCH ×2 (07:38→19:37)
--- NOTE | 2021-05-22 08:11 | P.PN ---
Subjective Progress Note Date: 05/21/21 This is a 65-year-old male who was recently admitted with increasing shortness of breath and is being closely monitored. Cardiology has evaluated the patient along with orthopedics and no plans for surgical intervention of the left wrist fracture s/p fall a few weeks ago. Patient to continue with sling and splint and continue to elevate. Pulmonary also following for possible pneumonia and will continue with breathing inhalational treatments and oxygen supplementation. Patient is continued on oral lasix and nephrology following as well for acute kidney injury. Magnesium low and will replace per protocol and repeat am labs. Patient also continues on ceftriaxone and vancomycin for possible pneumonia. Steroids discontinued. Patient blood sugars have been slightly elevated and will continue with sliding scale and long acting and monitor closely. Patient is weak and PT/OT following recommending RAJAT for continued strength and mobility. Social work consulted. 05/19/2021 Patient is seen in follow-up today with multiple medical consultations following. Patient being followed closely by nephrology and lasix continues with by mouth and kidney functions stable with creatinine at 1.8. Patient was maintained on vancomycin and ceftriaxone and blood cultures showing MSSA with infectious disease following closely. IV antibiotics being transitioned to cefazolin and repeat blood cultures ordered to monitor for clearance of bacteremia. Patient states that he has followed with the wound center for chronic diabetic ulcers and is concerned about his feet with wounds that are not being treated. On exam there are some chronic appearing ulcers noted to the left second and fourth toe along with the right fourth toe with no drainage or swelling noted and no surrounding redness or cellulitis noted. Extremely dry skin noted to bilateral lower extremities of which patient states is always like that. Will consult wounds and appreciate recommendations. Patient states they have continued with a cream in the past but unsure of the name of it. Patient is afebrile and denies any worsening shortness of breath. Left upper extremity with continued swelling noted and elevated on some pillows. 05/20/2021 Patient is seen today in follow-up this morning and being closely monitored. Patient continued on IV cefazolin with ID following closely. Blood cultures ordered daily and continue to show staph aureus. Monitoring for clearance. Sputum culture pending. Patient was evaluated by wounds and recommendations made for continued wound care. Patient also continues with left arm swelling although no worse and pain is currently controlled. Discoloration and bruising noted of the left upper extremity. Recommend to continue with conservative management per orthopedics and keep arm elevated. Nephrology also following and has changed lasix to IV to monitor closely. chest xray ordered. Hemoglobin was found to be low at 6.8 and 1 unit of PRBC ordered however there is a shortage of blood in the hospital and currently only transfusing those under 6.5. Iron studies low and will add IV iron and repeat am labs. 05/21/2021 Patient is evaluated today and and being followed by multiple medical consultati ons including nephrology and ID. Patient continues with positive blood cultures of staph aureus and daily blood cultures being drawn to monitor for clearance. Patient with low hemoglobin and has been receiving IV iron with improvement in hemoglobin today of 7.6 and will continue to monitor closely. Patient reports to feeling like he has more energy today. Patient able to work with physical therapy and get up to the chair today. Recommend to continue with physical therapy daily. Patient with continued swelling to the left upper extremity with partial cast and angel wrap noted. Positive range of motion of the fingers with continued multiple levels of bruising noted to the hand. Patient to continue on IV lasix for now with close monitoring of electrolytes and kidney functions. Encouraged increased activity as tolerated. Labs: WBC is 7.9, hemoglobin is 7.6, platelets are 225, sodium is 137, potassium 3.8, BUN 57, creatinine 1.47 Review of systems: Constitutional: No reports of fatigue, fever or chills, reports more energy today Cardio: No reports of chest pain or palpitations Respiratory: No reports of worsening shortness of breath or cough GI: No reports of nausea, vomiting, or diarrhea : no reports of dysuria or retention Neuro: reports continued weakness, denies numbness, reports left arm pain All medications have been reviewed Active Medications Hydrocodone Bitart/Acetaminophen (Hydrocodone/Apap 5-325mg 1 Each Tab) 1 each PO Q4HR PRN PRN Reason: Pain Last Admin: 05/22/21 04:07 Dose: 1 each Documented by: Albuterol/Ipratropium (Ipratropium-Albuterol 3 Ml Neb) 3 ml INHALATION RT-QID COUNT INCLUDES THE [facility] Last Admin: 05/21/21 19:14 Dose: 3 ml Documented by: Albuterol/Ipratropium (Ipratropium-Albuterol 3 Ml Neb) 3 ml INHALATION RT-QID PRN PRN Reason: Shortness Of Breath Or Wheezing Allopurinol (Allopurinol 100 Mg Tab) 200 mg PO DAILY COUNT INCLUDES THE [facility] Last Admin: 05/21/21 07:07 Dose: 200 mg Documented by: Apixaban (Apixaban 2.5 Mg Tablet) 2.5 mg PO BID COUNT INCLUDES THE [facility]; Protocol Last Admin: 05/21/21 20:39 Dose: 2.5 mg Documented by: Budesonide/Formoterol Fumarate (Symbicort 160-4.5 Mcg Inhaler) 2 puff INHALATION RT-BID COUNT INCLUDES THE [facility] Last Admin: 05/21/21 19:15 Dose: 2 puff Documented by: Darbepoetin Hubert (Darbepoetin Hubert 60 Mcg/0.3 Ml Syringe) 60 mcg SQ Q7D COUNT INCLUDES THE [facility] Last Admin: 05/19/21 17:26 Dose: 60 mcg Documented by: Dicyclomine HCl (Dicyclomine 10 Mg Cap) 20 mg PO TID PRN PRN Reason: IBS Furosemide (Furosemide 10 Mg/Ml 4 Ml Vial) 40 mg IV Q12HR COUNT INCLUDES THE [facility] Last Admin: 05/21/21 20:38 Dose: 40 mg Documented by: Guaifenesin (Guaifenesin 600 Mg Tablet.Er) 600 mg PO Q12HR COUNT INCLUDES THE [facility] Last Admin: 05/21/21 20:39 Dose: 600 mg Documented by: Insulin Human Regular 100 unit (/ Sodium Chloride) 101 mls @ 0 mls/hr IV .Q0M COUNT INCLUDES THE [facility]; Protocol Last Titration: 05/22/21 05:40 Dose: 2 units/hr, 2.02 mls/hr Documented by: Cefazolin Sodium 2 gm/ Sodium (Chloride) 50 mls @ 100 mls/hr IVPB Q8HR COUNT INCLUDES THE [facility] Last Admin: 05/21/21 23:13 Dose: 100 mls/hr Documented by: Ferric Sodium Gluconate 125 mg (/ Sodium Chloride) 110 mls @ 100 mls/hr IVPB DAILY COUNT INCLUDES THE [facility] Stop: 05/22/21 10:05 Last Admin: 05/21/21 09:04 Dose: 100 mls/hr Documented by: Levothyroxine Sodium (Levothyroxine 25 Mcg Tab) 25 mcg PO DAILY@0630 COUNT INCLUDES THE [facility] Last Admin: 05/22/21 05:56 Dose: 25 mcg Documented by: Metoprolol Succinate (Metoprolol Succinate (Er) 50 Mg Tab.Er.24h) 50 mg PO HS COUNT INCLUDES THE [facility] Last Admin: 05/21/21 20:39 Dose: 50 mg Documented by: Midodrine (Midodrine 5 Mg Tab) 10 mg PO AC-TID COUNT INCLUDES THE [facility] Last Admin: 05/21/21 17:54 Dose: Not Given Documented by: Miscellaneous Information (Pneumonia Protocol Utilized 1 Each Misc) 1 each PO ONCE PRN PRN Reason: Per Protocol Miscellaneous Information (Magnesium Replacement Protocol 1 Each Misc) 1 each MISCELLANE DAILY PRN; Protocol PRN Reason: Per Protocol Morphine Sulfate (Morphine Sulfate 4 Mg/Ml Syringe) 4 mg IVP Q4HR PRN PRN Reason: Pain Last Admin: 05/22/21 00:45 Dose: 4 mg Documented by: Multi-Ingred Cream/Lotion/Oil/Oint (Hydrophilic Cream 180 Gm Tube) 1 applic TOPICAL DAILY COUNT INCLUDES THE [facility]; Protocol Last Admin: 05/21/21 07:09 Dose: 1 applic Documented by: Multi-Ingred Cream/Lotion/Oil/Oint (Mineral Oil-White Petrolatum 120 Gm Jar) 1 applic TOPICAL DAILY PRN; Protocol PRN Reason: Dry Skin Ondansetron HCl (Ondansetron 4 Mg Tab) 4 mg PO BID PRN PRN Reason: Nausea Pantoprazole Sodium (Pantoprazole 40 Mg Tablet) 40 mg PO DAILY@0730 COUNT INCLUDES THE [facility] Last Admin: 05/21/21 07:07 Dose: 40 mg Documented by: Sodium Chloride (Saline Nasal Gel 14.1 Gm Tube) 1 applic NASAL Q4HR PRN PRN Reason: Dry Nasal Passages Tamsulosin HCl (Tamsulosin 0.4 Mg Cap.Er.24h) 0.4 mg PO DAILY COUNT INCLUDES THE [facility] Last Admin: 05/21/21 07:07 Dose: 0.4 mg Documented by: Triamcinolone Acetonide (Triamcinolone 0.1% Cream 80 Gm Tube) 1 applic TOPICAL BID PRN; Protocol PRN Reason: Rash Physical Exam: Gen: This is a 65-year-old male who is awake, alert and oriented x3, well- developed, well-nourished. Temp is 97.7 F, pulse is 80, respirations are 18, blood pressure is 129/76, oxygen saturation is 98% on 4 liters via nasal cannula HEENT: Head is atraumatic, normocephalic. Pupils equal, round. Sclerae is anicteric. NECK: Supple. No JVD. No lymphadenopathy. No thyromegaly. LUNGS: Breath sounds diminished with some mild scattered rhonchi and minimal expiratory wheezing noted. No intercostal retractions. HEART: S1, S2 are muffled ABDOMEN: Soft. Bowel sounds are present. No masses. No tenderness. EXTREMITIES: No pedal edema. No calf tenderness. left upper extremity with continued swelling and elevated on pillow. NEUROLOGICAL: Patient is awake alert and oriented x 3, diffusely weak . skin: dry, flaky skin noted to bilateral lower extremities, multiple levels of bruising and discoloration noted to the left upper extremity Assessment: Shortness of breath, possibly multifactorial with chronic obstructive pulmonary disease acute exacerbation with acute purulent tracheobronchitis, early pneumonia and as well as congestive heart failure, acute exacerbation with acute hypoxic respiratory failure bacteremia with MSSA Chronic kidney disease stage III Hyponatremia Hyperkalemia Hypomagnesemia stage II pressure ulcer to coccyx and left ear Troponin 0.05, indeterminate possibly myocardial infarction or secondary to respiratory difficulties Anemia, macrocytic Increased WBC Left arm fracture recently and fall Gait dysfunction Change in mental status, acute metabolic encephalopathy, multifactorial History of atrial fibrillation, chronic History of congestive heart failure History of COPD Diabetes mellitus type 2, uncontrolled with hyperglycemia History of DVT Gastroesophageal reflux disease Hyperlipidemia history of pneumonia History of respiratory disorder history of sleep apnea History of recent Covid positivity history of covid infection last year history of chronic hypoxic respiratory failure on 5 L via nasal cannula chronic diabetic foot ulcers to bilateral heals, healed History of sick sinus syndrome history of appendectomy History of cholecystectomy History of anxiety, depression, panic disorder Plan: Recommend to continue with current medications, management, and symptomatic treatment. Orthopedics evaluated the patient and no plans for surgical intervention at this time and continue with conservative treatment and angel wrapp ing to the left upper extremity. Partial cast noted. Nephrology and pulmonary following. Patient to continue IV cefazolin as blood cultures are positive for mssa. ID following closely. Repeat blood cultures showing staph aureus and daily blood cultures ordered. Blood sugars elevated and recommend close monitoring and continue with insulin drip for close monitoring and control. Patient continues on IV Lasix and nephrology following closely. Replace electrolytes per protocol and repeat am labs. Hemoglobin 7.6 today and receiving IV iron x 3. Occult blood ordered. Wound care ordered and Recommend frequent position changes. Will monitor closely for clearance of bacteremia. Social work foll owing and ECF being planned. Due to multiple complex medical issues prognosis is guarded. Objective - Vital Signs Vital signs: Vital Signs Temp 97.7 F 05/21/21 04:17 Pulse 80 05/21/21 07:41 Resp 18 05/21/21 04:17 BP 118/74 05/21/21 07:03 Pulse Ox 98 05/21/21 04:17 Intake & Output 05/20/21 05/21/21 05/21/21 18:59 06:59 18:59 Intake Total 968.001 341.502 0 Output Total 800 1600 Balance 168.001 -1258.498 0 Intake: Intake, IV Titration 248.001 141.502 0 Amount Insulin Regular 100 unit 48.001 41.502 0 In Sodium Chloride 0.9% 100 ml @ Titrate IV .Q0M COUNT INCLUDES THE [facility] Rx#:[id number] Sodium Ferric Gluconat- 100 Sucrose 125 mg In Sodium Chloride 0.9% 100 ml @ 100 mls/hr IVPB DAILY [facility] Rx#:[id number] ceFAZolin 2 gm In Sodium 100 100 Chloride 0.9% 50 ml @ 100 mls/hr IVPB Q8HR [facility] Rx# :[id number] Oral 720 200 Output: Urine 800 1600 Other: Voiding Method Urinal Urinal # Voids 5 - Labs CBC & Chem 7: 05/22/21 05:49 05/22/21 05:49 Labs: Abnormal Lab Results - Last 24 Hours (Table) 05/20/21 05/20/21 05/20/21 Range/Units 05:39 08:11 09:27 RBC (4.30-5.90) m/uL Hgb (13.0-17.5) gm/dL Hct (39.0-53.0) % MCV (80.0-100.0) fL Chloride (98-107) mmol/L Carbon Dioxide (22-30) mmol/L BUN (9-20) mg/dL Creatinine (0.66-1.25) mg/dL Glucose (74-99) mg/dL POC Glucose (mg/dL) 219 H (75-99) mg/dL Iron 46 L (65-175) ug/dL TIBC 224 L (228-460) ug/dL Transferrin 160.0 L (204.0-354.0) mg/dL Crossmatch See Detail 05/20/21 05/20/21 05/20/21 Range/Units 11:39 13:35 16:41 RBC (4.30-5.90) m/uL Hgb (13.0-17.5) gm/dL Hct (39.0-53.0) % MCV (80.0-100.0) fL Chloride (98-107) mmol/L Carbon Dioxide (22-30) mmol/L BUN (9-20) mg/dL Creatinine (0.66-1.25) mg/dL Glucose (74-99) mg/dL POC Glucose (mg/dL) 175 H 197 H 271 H (75-99) mg/dL Iron (65-175) ug/dL TIBC (228-460) ug/dL Transferrin (204.0-354.0) mg/dL Crossmatch 05/20/21 05/20/21 05/20/21 Range/Units 18:40 20:49 23:05 RBC (4.30-5.90) m/uL Hgb (13.0-17.5) gm/dL Hct (39.0-53.0) % MCV (80.0-100.0) fL Chloride (98-107) mmol/L Carbon Dioxide (22-30) mmol/L BUN (9-20) mg/dL Creatinine (0.66-1.25) mg/dL Glucose (74-99) mg/dL POC Glucose (mg/dL) 191 H 150 H 188 H (75-99) mg/dL Iron (65-175) ug/dL TIBC (228-460) ug/dL Transferrin (204.0-354.0) mg/dL Crossmatch 05/21/21 05/21/21 05/21/21 Range/Units 01:28 03:43 06:17 RBC (4.30-5.90) m/uL Hgb (13.0-17.5) gm/dL Hct (39.0-53.0) % MCV (80.0-100.0) fL Chloride (98-107) mmol/L Carbon Dioxide (22-30) mmol/L BUN (9-20) mg/dL Creatinine (0.66-1.25) mg/dL Glucose (74-99) mg/dL POC Glucose (mg/dL) 159 H 208 H 120 H (75-99) mg/dL Iron (65-175) ug/dL TIBC (228-460) ug/dL Transferrin (204.0-354.0) mg/dL Crossmatch 05/21/21 05/21/21 05/21/21 Range/Units 07:22 07:22 07:43 RBC 2.34 L (4.30-5.90) m/uL Hgb 7.6 L (13.0-17.5) gm/dL Hct 24.3 L (39.0-53.0) % MCV 103.6 H (80.0-100.0) fL Chloride 97 L (98-107) mmol/L Carbon Dioxide 38 H (22-30) mmol/L BUN 57 H (9-20) mg/dL Creatinine 1.48 H (0.66-1.25) mg/dL Glucose 123 H (74-99) mg/dL POC Glucose (mg/dL) 155 H (75-99) mg/dL Iron (65-175) ug/dL TIBC (228-460) ug/dL Transferrin (204.0-354.0) mg/dL Crossmatch Microbiology - Last 24 Hours (Table) 05/20/21 05:39 Blood Culture - Preliminary Blood No Growth after 24 hours 05/17/21 07:45 Blood Culture Gram Stain - Final Blood Blood Culture - Final Staphylococcus aureus 05/17/21 07:30 Blood Culture Gram Stain - Final Blood Blood Culture - Final Staphylococcus aureus
[2021-05-22 08:13] LABS: Glucose,Whole Blood 151 mg/dL (75-99)
[2021-05-22] MEDS: TAMSULOSIN 0.4 MG CAP.ER.24H PO SCH (08:22)
[2021-05-22] MEDS: APIXABAN 2.5 MG TABLET PO SCH ×2 (08:22→20:19)
[2021-05-22] MEDS: allopurinoL 100 MG TAB PO SCH (08:22)
[2021-05-22] MEDS: guaiFENesin 600 MG TABLET.ER PO SCH ×2 (08:22→20:19)
[2021-05-22] MEDS: FUROSEMIDE 10 MG/ML 4 ML VIAL IV SCH ×2 (08:22→20:19)
[2021-05-22] MEDS: PANTOPRAZOLE 40 MG TABLET PO SCH (08:22)
[2021-05-22] MEDS: MIDODRINE 5 MG TAB PO SCH ×3 (08:23→17:58)
[2021-05-22] MEDS: HYDROPHILIC CREAM 180 GM TUBE TOPICAL SCH (08:33)
[2021-05-22] MEDS: SODIUM FERRIC GLUCONAT-SUCROSE 125 MG in SODIUM CHLORIDE 0.9% 100 ML IVPB SCH (10:23)
[2021-05-22 10:32] LABS: Glucose,Whole Blood 194 mg/dL (75-99)
[2021-05-22 11:58] LABS: Glucose,Whole Blood 161 mg/dL (75-99)
[2021-05-22 14:32] LABS: Glucose,Whole Blood 178 mg/dL (75-99)
[2021-05-22 15:52] LABS: Glucose,Whole Blood 273 mg/dL (75-99)
--- NOTE | 2021-05-22 16:26 | PN ---
PROGRESS NOTE Patient is seen for followup for chronic kidney disease and acute kidney injury. The patient is lying in bed. He is complaining of pain in his left arm. His renal function has been stable with creatinine staying at about 1.4 mg/dL. PHYSICAL EXAMINATION: On examination today, blood pressure 124/70, heart rate 82 per minute, he is afebrile. Examination shows edema 1+ bilaterally lower extremities with chronic skin changes noted. Left arm is currently wrapped. [employer] exam grossly intact. LABS: From today show sodium 136, potassium 3.5, CO2 is 40, BUN 47, creatinine 1.4, hemoglobin 7.5 g/dL. ASSESSMENT: 1. Chronic kidney disease, NKF stage 3B. Baseline creatinine 1.5-1.7 mg/dL secondary to nephrosclerosis. 2. Acute tubular necrosis/acute kidney injury, currently improved, renal function now stable. Patient is maintained on midodrine. 3. Staphylococcus aureus bacteremia, maintained on cefazolin, being worked up for endovascular source. 4. Hypervolemia. The patient remains on IV Lasix. 5. Anemia, maintained on Aranesp with significant iron deficiency. Currently also on IV iron. PLAN: To continue with the IV Lasix. Continue Aranesp. Continue with the antibiotics. The patient is done with his IV iron third dose today. MMODL / IJN: [id number] /
--- NOTE | 2021-05-22 17:30 | PN ---
PROGRESS NOTE DATE OF SERVICE: 05/22/2021. REASON FOR FOLLOWUP: MSSA bacteremia. INTERVAL HISTORY: Patient is afebrile. The patient has been breathing comfortably. Has been complaining of pain to the left upper extremity. Denies having any chest pain. No shortness of breath. Did have a cough. No worsening. No abdominal pain. No diarrhea. PHYSICAL EXAMINATION: Blood pressure 124/70 with a pulse of 82, temperature 98. He is 96% on 4 L nasal cannula. General description is a middle aged male lying in bed in no distress. Respiratory system: Unlabored breathing, decreased breath sounds in the base. Heart S1, S2. Regular rate and rhythm. Abdomen soft, no tenderness. LABS: No new labs have been obtained today. Blood culture has been negative. DIAGNOSTIC IMPRESSION AND PLAN: Patient with MSSA bacteremia in this patient with clearing bacteremia very quickly, possible source. Echocardiogram did not show any evidence of . Patient to continue with Cefazolin, plan is for continue 2 weeks from his negative blood cultures and close outpatient followup. MMODL / IJN: [id number] /
[2021-05-22 17:58] LABS: Glucose,Whole Blood 212 mg/dL (75-99)
--- NOTE | 2021-05-22 19:45 | PN ---
PROGRESS NOTE DATE OF SERVICE: 05/22/2021 This 65-year-old gentleman who was admitted with shortness of breath and COPD acute exacerbation and multiple other medical problems, continues to be ( ). The patient is growing MSSA from several cultures. The last culture was positive on 05/18 and most recent cultures are negative. No chest pain. No palpitations. No fever. The patient also had a fracture of the left hand, being treated conservatively at this time. PHYSICAL EXAMINATION: Alert and oriented x3. Pulse 82, blood pressure 124/70, respiration 20, temperature 98 degrees, pulse ox 98% on 4 L HEENT: Conjunctivae normal. Oral mucosa moist. NECK: No jugular venous distention. No lymph node enlargement. CARDIOVASCULAR: S1, S2, muffled. No S3, no S4, RESPIRATORY: Diminished breath sounds at the bases. A few scattered rhonchi. ABDOMEN: Soft, nontender. LEGS: No edema, no swelling. NERVOUS SYSTEM: No focal deficits. LABS: Hemoglobin 7.5, sodium 136. ASSESSMENT: 1. Shortness of breath possibly multifactorial with COPD acute exacerbation with acute purulent tracheobronchitis, early pneumonia as well as congestive heart failure acute exacerbation, acute hypoxic respiratory failure. 2. Bacteremia from MSSA persistent. 3. Chronic kidney disease stage 3. 4. Left arm fracture. 5. Hyponatremia. 6. Hypokalemia. 7. Hypomagnesemia. 8. Stage II pressure ulcer of coccyx and left ear. 9. Troponin 0.05, indeterminate, possibly myocardial infarction or secondary to respiratory difficulty. 10.Anemia, macrocytic. 11.Increased WBC. 12.Gait dysfunction. 13.Change in mental status, acute metabolic encephalopathy, multifactorial. 14.History of atrial fibrillation, chronic. 15.History of CHF. 16.History of chronic obstructive pulmonary disease. 17.Diabetes mellitus, type 2, uncontrolled with hyperglycemia. 18.History of deep vein thrombosis. 19.GERD. 20.Hyperlipidemia. 21.History of pneumonia. 22.History of respiratory disorder. 23.History of sleep apnea. 24.History of recent Covid-19 positivity. 25.History of Covid infection last year. 26.History of chronic hypoxic respiratory failure on 5 L nasal cannula. 27.History of diabetic foot ulcer, bilateral heels. 28.History of sick sinus syndrome. 29.History of appendectomy. 30.History of cholecystectomy. 31.Anxiety, depression, panic disorder. RECOMMENDATIONS: In this 65-year-old gentleman who presented with multiple complex medical issues, will monitor the patient closely, continue the current medications. Follow the latest cultures. Once the cultures are negative and cleared by Infectious Disease, patient might be able to go to an ECF for further rehab. Otherwise, orthopedic surgery to follow the fracture. Further recommendations to follow. MMODL / IJN: [id number] /
[2021-05-22] MEDS: METOPROLOL SUCCINATE (ER) 50 MG TAB.ER.24H PO SCH (20:19)
[2021-05-22 20:55] LABS: Glucose,Whole Blood 215 mg/dL (75-99)
[2021-05-22 22:54] LABS: Glucose,Whole Blood 141 mg/dL (75-99)
[2021-05-23 00:51] LABS: Glucose,Whole Blood 139 mg/dL (75-99)
[2021-05-23] MEDS: MORPHINE SULFATE 4 MG/ML SYRINGE IVP PRN ×4 (00:53→23:45)
[2021-05-23 02:30] LABS: Glucose,Whole Blood 196 mg/dL (75-99)
[2021-05-23] MEDS: HYDROcodone/APAP 5-325MG 1 EACH TAB PO PRN ×3 (05:09→20:35)
[2021-05-23] MEDS: LEVOTHYROXINE 25 MCG TAB PO SCH (05:10)
[2021-05-23 05:14] LABS: Glucose,Whole Blood 159 mg/dL (75-99)
[2021-05-23] MEDS: SYMBICORT 160-4.5 MCG INHALER INHALATION SCH ×2 (07:51→19:19)
[2021-05-23] MEDS: IPRATROPIUM-ALBUTEROL 3 ML NEB INHALATION SCH ×4 (07:51→19:19)
[2021-05-23 07:53] LABS: Glucose,Whole Blood 159 mg/dL (75-99)
--- NOTE | 2021-05-23 08:52 | P.PN ---
Progress Note - Text Progress Note Date: 05/23/[address] Robertson yesterday regarding the patient's splint being uncomfortable and causing swelling in his upper arm. Upon assessment this morning, there is minimal swelling in the upper arm but the patient states the splint is rubbing on his lateral and medial elbow causing severe pain. The sugar-tong splint was removed. No open areas are noted in the elbow or wrist. A new volar splint was applied per patient's request. He states the new splint feels much better without any areas of rubbing. Neurovascular status is intact after splint was applied. I encouraged the patient to move his fingers as much as possible to prevent stiffness. Continue to elevate and ice the left wrist.
[2021-05-23] MEDS: FUROSEMIDE 10 MG/ML 4 ML VIAL IV SCH ×2 (09:05→20:35)
[2021-05-23] MEDS: allopurinoL 100 MG TAB PO SCH (09:06)
[2021-05-23] MEDS: TAMSULOSIN 0.4 MG CAP.ER.24H PO SCH (09:06)
[2021-05-23] MEDS: HYDROPHILIC CREAM 180 GM TUBE TOPICAL SCH (09:06)
[2021-05-23] MEDS: guaiFENesin 600 MG TABLET.ER PO SCH ×2 (09:06→20:36)
[2021-05-23] MEDS: APIXABAN 2.5 MG TABLET PO SCH ×2 (09:06→20:36)
[2021-05-23] MEDS: PANTOPRAZOLE 40 MG TABLET PO SCH (09:06)
[2021-05-23] MEDS: MIDODRINE 5 MG TAB PO SCH ×3 (09:07→17:20)
[2021-05-23 10:19] LABS: Glucose,Whole Blood 204 mg/dL (75-99)
[2021-05-23] MEDS: INSULIN REGULAR 100 UNIT in SODIUM CHLORIDE 0.9% 100 ML IV SCH (10:26)
[2021-05-23 11:47] LABS: Glucose,Whole Blood 181 mg/dL (75-99)
--- NOTE | 2021-05-23 13:37 | PN ---
PROGRESS NOTE Patient is seen for followup for chronic kidney disease and acute kidney injury. Renal function has improved. Patient is maintained on IV Lasix for volume overload. Creatinine staying at 1.4 mg/dL. PHYSICAL EXAMINATION: On examination today, blood pressure 116/63, heart rate 75 per minute. Patient is afebrile. Examination of the heart S1, S2. Examination of the lungs, bilateral breath sounds are heard. Abdomen is soft, nontender. Examination lower extremities shows improving edema, chronic skin changes noted. [employer] exam grossly intact. LAB: Show sodium 136, potassium 3.5, chloride 93, CO2 is 40, BUN 47, creatinine 1.4, hemoglobin 7.5. ASSESSMENT: 1. Acute kidney injury mostly acute tubular necrosis currently improved. Renal function stable with creatinine at 1.4 mg/dL. 2. CKD and NKF stage 3B. Baseline creatinine about 1.5-1.7 secondary to nephrosclerosis. 3. Staph aureus bacteremia, maintained on cefazolin. Repeat blood cultures negative, being followed by ID. 4. Anemia, maintained on Aranesp with significant iron deficiency noted. Currently also receiving IV iron. PLAN: Continue with IV Lasix repeat labs in a.m. MMODL / IJN: [id number] /
[2021-05-23 14:37] LABS: Glucose,Whole Blood 205 mg/dL (75-99)
[2021-05-23 14:37] LABS: Glucose,Whole Blood 185 mg/dL (75-99)
[2021-05-23 16:17] LABS: Glucose,Whole Blood 252 mg/dL (75-99)
[2021-05-23 17:12] LABS: Glucose,Whole Blood 183 mg/dL (75-99)
[2021-05-23 18:33] LABS: Glucose,Whole Blood 141 mg/dL (75-99)
--- NOTE | 2021-05-23 19:01 | PN ---
PROGRESS NOTE DATE OF SERVICE: 05/23/2021 This 65-year-old gentleman who was admitted with shortness of breath, multifactorial, with COPD, acute exacerbation, also had bacteremia. No chest pain. No palpitations. No fever. The cultures are consistent showing MSSA, but the last cultures beyond 05/18/21 were negative. No chest pain. No palpitations. No fever. PHYSICAL EXAMINATION: Alert and oriented x. Pulse 75, blood pressure 116/66, respiration 20, temperature 98 degrees, pulse ox 97% on 4 L. HEENT: Conjunctivae normal. NECK: No jugular venous distention. CARDIOVASCULAR: S1, S2 muffled. RESPIRATION: Breath sounds diminished at the bases. A few scattered rhonchi and crackles. ABDOMEN: Soft. NERVOUS SYSTEM: No focal deficit. LABS: Hemoglobin 7.5, sodium 136. The chest x-ray which was done today was reviewed personally by me and showed some increased bronchovascular markings. Creatinine has improved significantly. ASSESSMENT: 1. Shortness of breath, possibly multifactorial, with chronic obstructive pulmonary disease, acute exacerbation, with acute purulent tracheobronchitis as well as early pneumonia as well as possibly Gram-negative as well as congestive heart failure, acute exacerbation, with acute hypoxic respiratory failure. 2. Bacteremia from MSSA, persistent. 3. Chronic kidney disease, stage 3. 4. Left arm fracture. 5. Hyponatremia. 6. Hypokalemia. 7. Hypomagnesemia. 8. Stage II pressure ulcer of the coccyx and left ear. 9. Troponin 0.05, indeterminate; possible acute [id number] type 2 myocardial infarction secondary to respiratory difficulties. 10.Anemia, macrocytic. 11.Increased white count. 12.Gait dysfunction. 13.Change in mental status, acute metabolic encephalopathy, multifactorial. 14.History of atrial fibrillation, chronic. 15.History of congestive heart failure. 16.History of chronic obstructive pulmonary disease. 17.Diabetes mellitus, type 2, uncontrolled with hyperglycemia. 18.History of deep vein thrombosis. 19.Gastroesophageal reflux disease. 20.Hyperlipidemia. 21.History of pneumonia. 22.History of respiratory disorder. 23.History of sleep apnea. 24.History of recent COVID-19 positivity. 25.History of COVID infection last year. 26.History of chronic hypoxic respiratory failure, on 5 L nasal cannula. 27.History of diabetic foot ulcer bilaterally. 28.History of sick sinus syndrome. 29.History of appendectomy. 30.History of cholecystectomy. 31.History of depression, panic disorder. RECOMMENDATIONS AND DISCUSSION: In this 65-year-old gentleman who presented with multiple complex medical issues, we will monitor the patient closely, continue the current medications, continue symptomatic treatment. Continue the bronchodilators. Continue the rest of the medications. Continue with antibiotics. Once the infection is cleared, the patient might be able to go to rehab with possible antibiotics. Otherwise, Orthopedic Surgery to evaluate the fracture of the left arm, which is on the conservative line of management. Prognosis guarded. Further recommendations to follow. Repeat labs will be arranged. MMAKUAL / IJN: [id number] / BERNADINE
[2021-05-23] MEDS: METOPROLOL SUCCINATE (ER) 50 MG TAB.ER.24H PO SCH (20:36)
[2021-05-23 20:41] LABS: Glucose,Whole Blood 219 mg/dL (75-99)
--- NOTE | 2021-05-23 20:49 | PN ---
PROGRESS NOTE DATE OF SERVICE: 05/23/2021 REASON FOR FOLLOWUP: MSSA bacteremia. INTERVAL HISTORY: The patient is afebrile. Patient is breathing comfortably. The patient denies having any chest pain, shortness of breath or cough. No abdominal pain or worsening pain to the left lower extremity. No diarrhea. PHYSICAL EXAMINATION: Blood pressure 116/63, pulse of 75, temperature 98. He is 97% on 4 L nasal cannula. General description is a middle-aged male lying in bed in no distress. Respiratory system: Unlabored breathing. Clear to auscultation anteriorly. Heart S1, S2. Regular rate and rhythm. Abdomen soft, no tenderness. LABS: No new labs have been obtained today. Blood culture repeat has been negative so far. DIAGNOSTIC IMPRESSION AND PLAN: Patient with MSSA bacteremia; source possibly skin and soft tissue. Doubt deep infection. Patient cleared bacteremia quickly and Echocardiogram was negative. To continue cefazolin. Plan is for 2 weeks from his negative blood culture and close outpatient followup. MMODL / IJN: [id number] / BERNADINE
--- NOTE | 2021-05-23 22:12 | XR ---
EXAMINATION TYPE: XR chest 2V DATE OF EXAM: 05/23/2021 COMPARISON: 05/18/2021 HISTORY: Cough and congestion TECHNIQUE: FINDINGS: There is some mild blunting of the costophrenic angles. There is minimal infiltrate at the lung bases. There is no heart failure. There is left axillary pacemaker. IMPRESSION: There is some pleural fluid and minimal infiltrate and atelectasis at the lung bases whic h is slightly worse than last exam. No heart failure.
[2021-05-23 22:27] LABS: Glucose,Whole Blood 221 mg/dL (75-99)
[2021-05-23 23:51] LABS: Glucose,Whole Blood 182 mg/dL (75-99)
[2021-05-24 02:40] LABS: Glucose,Whole Blood 140 mg/dL (75-99)
[2021-05-24] MEDS: HYDROcodone/APAP 5-325MG 1 EACH TAB PO PRN ×3 (03:48→12:27)
[2021-05-24 04:14] LABS: Glucose,Whole Blood 140 mg/dL (75-99)
[2021-05-24] MEDS: LEVOTHYROXINE 25 MCG TAB PO SCH (06:18)
[2021-05-24 06:21] LABS: Glucose,Whole Blood 161 mg/dL (75-99)
[2021-05-24 06:54] LABS: Basophils % (A) 0 %; Eosinophils # (A) 0.2 k/uL (0-0.7); Eosinophils % (A) 2 %; HCT 26.4 % (39.0-53.0); HGB 8.1 gm/dL (13.0-17.5); Hypochromasia Moderate; Lymphocytes # (A) 1.6 k/uL (1.0-4.8); Lymphocytes % (A) 16 %; MCH 32.2 pg (25.0-35.0); MCHC 30.8 g/dL (31.0-37.0); MCV 104.7 fL (80.0-100.0); Macrocytosis Moderate; Mean Platelet Volume 7.6; Monocytes # (A) 0.5 k/uL (0-1.0); Monocytes % (A) 5 %; Neutrophils # (A) 7.5 k/uL (1.3-7.7); Neutrophils % (A) 75 %; Platelet Count 343 k/uL (150-450); RBC 2.52 m/uL (4.30-5.90); RDW 14.8 % (11.5-15.5)
[2021-05-24] MEDS: SYMBICORT 160-4.5 MCG INHALER INHALATION SCH (07:39)
[2021-05-24] MEDS: IPRATROPIUM-ALBUTEROL 3 ML NEB INHALATION SCH ×3 (07:39→15:07)
[2021-05-24 07:41] LABS: Glucose,Whole Blood 153 mg/dL (75-99)
--- NOTE | 2021-05-24 08:03 | P.PN ---
Subjective Patient is seen in follow-up for acute kidney injury on chronic kidney disease. Creatinine 1.4 as of 05/22/2021. On 4 L nasal cannula. Blood pressure stable. Denies chest pain or shortness of breath. Vital signs are stable. General: Atraumatic. Nasal cannula. HEENT: Head exam is unremarkable. LUNGS: Breath sounds decreased. HEART: Rate and Rhythm are regular. ABDOMEN: Soft, no distention. EXTREMITITES: Trace edema. Objective - Vital Signs Vital signs: Vital Signs Temp 98.0 F 05/24/21 04:20 Pulse 92 05/24/21 07:58 Resp 18 05/24/21 04:20 BP 115/70 05/24/21 04:20 Pulse Ox 99 05/24/21 04:20 Intake & Output 05/23/21 05/24/21 05/24/21 18:59 06:59 18:59 Intake Total 39.114 664.363 Output Total 900 Balance 39.114 -235.637 Intake: Intake, IV Titration 39.114 124.363 Amount Insulin Regular 100 unit 39.114 24.363 In Sodium Chloride 0.9% 100 ml @ Titrate IV .Q0M ASH[facility] Rx#:[id number] ceFAZolin 2 gm In Sodium 100 Chloride 0.9% 50 ml @ 100 mls/hr IVPB Q8HR [facility] Rx# :[id number] Oral 540 Output: Urine 900 Other: Voiding Method Urinal # Voids 3 - Labs CBC & Chem 7: 05/24/21 06:26 05/22/21 05:49 Labs: Abnormal Lab Results - Last 24 Hours (Table) 05/23/21 05/23/21 05/23/21 Range/Units 10:18 11:45 14:23 RBC (4.30-5.90) m/uL Hgb (13.0-17.5) gm/dL Hct (39.0-53.0) % MCV (80.0-100.0) fL MCHC (31.0-37.0) g/dL POC Glucose (mg/dL) 204 H 181 H 205 H (75-99) mg/dL 05/23/21 05/23/21 05/23/21 Range/Units 14:25 16:15 17:11 RBC (4.30-5.90) m/uL Hgb (13.0-17.5) gm/dL Hct (39.0-53.0) % MCV (80.0-100.0) fL MCHC (31.0-37.0) g/dL POC Glucose (mg/dL) 185 H 252 H 183 H (75-99) mg/dL 05/23/21 05/23/21 05/23/21 Range/Units 18:24 20:40 22:26 RBC (4.30-5.90) m/uL Hgb (13.0-17.5) gm/dL Hct (39.0-53.0) % MCV (80.0-100.0) fL MCHC (31.0-37.0) g/dL POC Glucose (mg/dL) 141 H 219 H 221 H (75-99) mg/dL 05/23/21 05/24/21 05/24/21 Range/Units 23:50 02:38 04:12 RBC (4.30-5.90) m/uL Hgb (13.0-17.5) gm/dL Hct (39.0-53.0) % MCV (80.0-100.0) fL MCHC (31.0-37.0) g/dL POC Glucose (mg/dL) 182 H 140 H 140 H (75-99) mg/dL 05/24/21 05/24/21 05/24/21 Range/Units 06:19 06:26 07:40 RBC 2.52 L (4.30-5.90) m/uL Hgb 8.1 L (13.0-17.5) gm/dL Hct 26.4 L (39.0-53.0) % MCV 104.7 H (80.0-100.0) fL MCHC 30.8 L (31.0-37.0) g/dL POC Glucose (mg/dL) 161 H 153 H (75-99) mg/dL Microbiology - Last 24 Hours (Table) 05/21/21 07:22 Blood Culture - Preliminary Blood No Growth after 48 hours 05/20/21 05:39 Blood Culture - Preliminary Blood No Growth after 72 hours Assessment and Plan Plan: Assessment: 1. Acute kidney injury mostly prerenal secondary to cardiorenal syndrome. Improving with diuresis. Creatinine 2.36 on admission and down to 1.4 as of 05/22/2021. UA fairly benign. 2. Chronic any disease stage IIIB with baseline creatinine 1.5-1.8 secondary to diabetic kidney disease as well as nonrecovered ATN. Patient required temporary dialysis in 2017. 3. Acute on chronic diastolic CHF. 4. Metabolic acidosis secondary to acute kidney injury. Resolved. 5. Hyperkalemia secondary to acute kidney injury and metabolic acidosis. Resolved. 6. Anemia of chronic kidney disease. On Aranesp. 7. Hypomagnesemia from poor intake and diuresis. Replaced. Plan: Change Lasix to 40 mg oral twice daily. Maintain midodrine. Cortisol level was not low. Continue to monitor renal function and urine output.
[2021-05-24] MEDS: PANTOPRAZOLE 40 MG TABLET PO SCH (08:13)
[2021-05-24] MEDS: TAMSULOSIN 0.4 MG CAP.ER.24H PO SCH (08:13)
[2021-05-24] MEDS: MIDODRINE 5 MG TAB PO SCH ×2 (08:13→13:08)
[2021-05-24] MEDS: APIXABAN 2.5 MG TABLET PO SCH (08:13)
[2021-05-24] MEDS: HYDROPHILIC CREAM 180 GM TUBE TOPICAL SCH (08:14)
[2021-05-24] MEDS: guaiFENesin 600 MG TABLET.ER PO SCH (08:14)
[2021-05-24] MEDS: allopurinoL 100 MG TAB PO SCH (08:14)
[2021-05-24] MEDS ORDERED: FUROSEMIDE 40 MG TAB PO SCH (09:00)
[2021-05-24 09:18] LABS: African American GFR (CKD) 62.2 (60.0-200.0); Anion Gap 13.9 mmol/L (10.00-18.00); BUN/Creat Ratio 19.78 Ratio (12.00-20.00); Blood Urea Nitrogen 27.3 mg/dL (9.0-27.0); Calcium 8.7 mg/dL (8.7-10.3); Carbon Dioxide 30.3 mmol/L (20.0-27.5); Non-African American GFR(CKD) 53.7 (60.0-200.0); Potassium 3.4 mmol/L (3.5-5.5)
[2021-05-24] MEDS: MAGNESIUM SULFATE-D5W PMX 1 GM in DEXTROSE/WATER 1 100ML.BAG IVPB SCH ×3 (11:23→14:58)
[2021-05-24 12:11] LABS: Glucose,Whole Blood 215 mg/dL (75-99)
[2021-05-24 12:24] VITALS: BP 113/65; RESP 20; TEMP 97.4
[2021-05-24] MEDS ORDERED: INSULIN ASPART (NovoLOG) 100 UNIT/ML VIAL SQ SCH (12:30)
[2021-05-24] MEDS: MORPHINE SULFATE 4 MG/ML SYRINGE IVP PRN (14:09)
[2021-05-24] MEDS ORDERED: LIDOCAINE 1% INJ 10MG/ML (20 ML MDV) SQ ONE (14:30)
[2021-05-24 15:10] VITALS: PULSE 96
--- NOTE | 2021-05-24 16:02 | P.DS ---
Providers Date of admission: 05/17/21 07:43 Expected date of discharge: 05/24/21 Attending physician: Vel Wilburn Consults: 05/17/21 07:52 Consult Physician Routine Consulting Provider: Adam Guillen Consult Reason/Comments: left wrist fracture Do you want consulting provider notified?: Yes 05/17/21 09:35 Consult Physician Routine Consulting Provider: Minnie Garcia Consult Reason/Comments: ROHINI/CKD Do you want consulting provider notified?: Yes 05/17/21 17:39 Consult Physician Routine Consulting Provider: Tracey Reyes Consult Reason/Comments: copd Do you want consulting provider notified?: Yes 05/17/21 21:41 Consult Physician Routine Consulting Provider: Susanna Covington Consult Reason/Comments: Gram + Cocci in Blood Do you want consulting provider notified?: Already Contacted Primary care physician: [facility] Hospital Course: Final diagnosis Shortness of breath, possibly multifactorial with chronic obstructive pulmonary disease acute exacerbation with acute purulent tracheobronchitis, early pneumonia and as well as congestive heart failure, acute exacerbation with acute hypoxic respiratory failure bacteremia with MSSA Chronic kidney disease stage III Hyponatremia Hyperkalemia Hypomagnesemia stage II pressure ulcer to coccyx and left ear Troponin 0.05, indeterminate possibly myocardial infarction or secondary to respiratory difficulties Anemia, macrocytic Increased WBC Left arm fracture recently and fall Gait dysfunction Change in mental status, acute metabolic encephalopathy, multifactorial History of atrial fibrillation, chronic History of congestive heart failure History of COPD Diabetes mellitus type 2, uncontrolled with hyperglycemia History of DVT Gastroesophageal reflux disease Hyperlipidemia history of pneumonia History of respiratory disorder history of sleep apnea History of recent Covid positivity history of covid infection last year history of chronic hypoxic respiratory failure on 5 L via nasal cannula chronic diabetic foot ulcers to bilateral heals, healed History of sick sinus syndrome history of appendectomy History of cholecystectomy History of anxiety, depression, panic disorder Discharge disposition Patient is being discharged in a stable condition with guarded prognosis to [facility] for continued PT/OT therapy. Patient will follow-up with Dr. Gonzalez in the outpatient setting upon discharge. Patient will follow-up with [facility] in the outpatient setting. Patient is to continue with the antibiotics in the form of cefazolin every 8 hours per infectious disease recommendations for a minimum of 2 weeks. Patient will need repeat lab draws of CBC, CMP, magnesium on discharge. Patient will need close outpatient follow-up with nephrology along with orthopedics and infectious disease in 1-2 weeks. Total time taken is greater than 35 minutes. Hospital course This is a 65-year-old male who was recently admitted with shortness of breath, multifactorial with COPD, acute exacerbation also found to have bacteremia. Patient is maintained on IV antibiotics in the form of cefazolin and most recent blood cultures have been negative. Patient also with continued weakness and most recently fell having left upper extremity fracture and will follow-up outpatient with orthopedics in 1-2 weeks in the clinic. Patient will continue on IV cefazolin every 8 hours for a minimum of 2 weeks and recommend close outpatient follow-up with Dr. Covington in the clinic. Patient to continue with Eucerin cream twice daily to lower extremities and may use Triad cream to the toes daily and recommend continuing local wound care. Patient with local wound care of decubitus ulcers as well and frequent position changes at least every 2 hours. Patient is contained on oral Lasix twice daily and recommend close outpatient follow-up of labs and nephrology follow-up. Recommend consistent carb diet and close monitoring of Accu-Cheks before meals and at bedtime and recommend to continue sliding scale along with long-acting. Currently no reports of chest pain, worsening shortness of breath, or palpitations. Patient is afebrile. No reports of nausea or vomiting and patient is tolerating diet. Recommend continue with breathing inhalational treatments 4 times a day and as needed. Patient is currently maintained on 4 L of oxygen via nasal cannula. Patient will be going [facility] today. Guarded prognosis. On exam vital signs are stable. Cardio S1, S2 are muffled. Respiratory system shows diminished breath sounds at the bases with no wheezing or rhonchi noted. Abdomen is soft and and nontender. Nervous system shows diffuse weakness. Please refer to medication reconciliation sheet for a list of medications. Patient Condition at Discharge: Stable Plan - Discharge Summary New Discharge Prescriptions: New Darbepoetin Hubert [Aranesp] 60 mcg SQ Q7D each Ipratropium-Albuterol Nebulize [Duoneb 0.5 mg-3 mg/3 ml Soln] 3 ml INHALATION RT-QID ml Ipratropium-Albuterol Nebulize [Duoneb 0.5 mg-3 mg/3 ml Soln] 3 ml INHALATION RT-QID PRN ml PRN Reason: Shortness Of Breath Or Wheezing ceFAZolin [Kefzol] 2 gm IVP Q8HR #42 dose HYDROcodone/APAP 5-325MG [[place] 5-325] 1 each PO Q4HR PRN #6 tab PRN Reason: Pain INSULIN ASPART (NovoLOG) [NovoLOG (formulary)] 0 unit SQ ACHS ml Saline Nasal Gel [[place] Nasal Gel] 1 applic NASAL Q4HR PRN PRN Reason: Dry Nasal Passages guaiFENesin [Mucinex] 600 mg PO Q12HR tablet Continue Tamsulosin [Flomax] 0.4 mg PO DAILY Ondansetron HCl [Zofran] 4 mg PO BID PRN PRN Reason: Nausea Apixaban [Eliquis] 2.5 mg PO BID Metoprolol Succinate (ER) [Toprol XL] 50 mg PO HS #30 tab.er.24h Pantoprazole [Protonix] 40 mg PO DAILY #30 tab Dextrose Gel [Glutose 15 Gel] 1 applic MUCOUS MEM DIRECTED Ipratropium/Albuter 20-100Mcg [Combivent Respimat 20-100Mcg Inhaler] 1 puff INHALATION RT-QID Triamcinolone 0.1% Cream [Kenalog 0.1% Cream] 1 applic TOPICAL BID PRN PRN Reason: Rash Insulin Glargine,Hum.rec.anlog [Lantus Solostar Pen] 25 unit SQ DAILY Levothyroxine Sodium [Synthroid] 25 mcg PO DAILY allopurinoL [Zyloprim] 200 mg PO DAILY Dicyclomine [Bentyl] 20 mg PO TID PRN PRN Reason: IBS Fluticasone/Salmeterol [Advair 500-50 Diskus] 1 puff INHALATION RT-BID Furosemide [Lasix] 40 mg PO BID Lidocaine 5% Patch [Lidoderm 5% Patch] 1 patch TOPICAL DAILY PRN PRN Reason: Pain Midodrine HCl [ProAmatine] 10 mg PO TID Discontinued HYDROcodone/APAP 10-325MG [[place] 10-325] 1 tab PO Q6H PRN PRN Reason: Pain Insulin Aspart [NovoLOG Flexpen] See Protocol SQ AC-TID predniSONE [Deltasone] 20 mg PO DAILY Discharge Medication List Tamsulosin [Flomax] 0.4 mg PO DAILY 06/23/16 [History] Ondansetron HCl [Zofran] 4 mg PO BID PRN 09/30/18 [History] Apixaban [Eliquis] 2.5 mg PO BID 01/11/19 [History] Insulin Glargine,Hum.rec.anlog [Lantus Solostar Pen] 25 unit SQ DAILY 08/02/20 [History] Levothyroxine Sodium [Synthroid] 25 mcg PO DAILY 08/02/20 [History] Metoprolol Succinate (ER) [Toprol XL] 50 mg PO HS #30 tab.er.24h 08/31/20 [Rx] Pantoprazole [Protonix] 40 mg PO DAILY #30 tab 08/31/20 [Rx] Dextrose Gel [Glutose 15 Gel] 1 applic MUCOUS MEM DIRECTED 05/17/21 [History] Dicyclomine [Bentyl] 20 mg PO TID PRN 05/17/21 [History] Fluticasone/Salmeterol [Advair 500-50 Diskus] 1 puff INHALATION RT-BID 05/17/21 [History] Furosemide [Lasix] 40 mg PO BID 05/17/21 [History] Ipratropium/Albuter 20-100Mcg [Combivent Respimat 20-100Mcg Inhaler] 1 puff INHALATION RT-QID 05/17/21 [History] Lidocaine 5% Patch [Lidoderm 5% Patch] 1 patch TOPICAL DAILY PRN 05/17/21 [History] Midodrine HCl [ProAmatine] 10 mg PO TID 05/17/21 [History] Triamcinolone 0.1% Cream [Kenalog 0.1% Cream] 1 applic TOPICAL BID PRN 05/17/21 [History] allopurinoL [Zyloprim] 200 mg PO DAILY 05/17/21 [History] Darbepoetin Hubert [Aranesp] 60 mcg SQ Q7D each 05/24/21 [Rx] HYDROcodone/APAP 5-325MG [[place] 5-325] 1 each PO Q4HR PRN #6 tab 05/24/21 [Rx] INSULIN ASPART (NovoLOG) [NovoLOG (formulary)] 0 unit SQ ACHS ml 05/24/21 [Rx] Ipratropium-Albuterol Nebulize [Duoneb 0.5 mg-3 mg/3 ml Soln] 3 ml INHALATION RT-QID ml 05/24/21 [Rx] Ipratropium-Albuterol Nebulize [Duoneb 0.5 mg-3 mg/3 ml Soln] 3 ml INHALATION RT-QID PRN ml 05/24/21 [Rx] Saline Nasal Gel [[place] Nasal Gel] 1 applic NASAL Q4HR PRN 05/24/21 [Rx] ceFAZolin [Kefzol] 2 gm IVP Q8HR #42 dose 05/24/21 [Rx] guaiFENesin [Mucinex] 600 mg PO Q12HR tablet 05/24/21 [Rx] Follow up Appointment(s)/Referral(s): Jhonny Ugalde DO [STAFF PHYSICIAN] - 1 Week Susanna Covington MD [STAFF PHYSICIAN] - 1 Week Adam Guillen MD [Medical Doctor] - 1 Week [facility] [Primary Care Provider] - 1-2 days Ambulatory/Diagnostic Orders: Complete Blood Count w/diff [LAB.AMB] Time Frame: 3 Days, Location: None Selected Activity/Diet/Wound Care/Special Instructions: Keep left upper extremity splint on until follow-up appointment with [facility]. Non-weight bearing left upper extremity. Keep left upper extremity elevated for swelling control. Patient is going to [facility] Recommend continue with sliding scale along with long-acting insulins NovoLog sliding scale 0-150 equals 0 units 151-200 equals 2 units 201-250 equals 4 units 251-300 equals 6 units 301-350 equals 8 units 351-400 equals 10 units Please notify provider if blood sugar is 400 or above Recommend to continue with IV antibiotics in the form of cefazolin 2 g every 8 hours per infectious disease recommendations for minimum of 2 weeks close outpatient follow-up with Dr. Covington Continue local wound care with Eucerin cream to lower extremities and Triad cream daily Follow-up with orthopedics as instructed in the outpatient setting On repeat labs of CBC, BMP, magnesium in 2-3 days Discharge Disposition: TRANSFER TO SNF/ECF
--- NOTE | 2021-05-24 16:22 | P.PN ---
Progress Note - Text Progress Note Date: 05/24/21 REASON FOR FOLLOWUP: MSSA bacteremia. INTERVAL HISTORY: The patient continue to be afebrile. Patient is breathing comfortably. The patient denies chest pain, shortness of breath or cough. No abdominal pain or worsening pain to the left lower extremity. No diarrhea. PHYSICAL EXAMINATION: Blood pressure 110/60, pulse of 70, temperature 98. He is 97% on 4 L nasal cannula. General description is a middle-aged male lying in bed in no distress. Respiratory system: Unlabored breathing. Clear to auscultation anteriorly. Heart S1, S2. Regular rate and rhythm. Abdomen soft, no tenderness. LABS: Blood culture repeat has been negative so far. DIAGNOSTIC IMPRESSION AND PLAN: Patient with MSSA bacteremia; source possibly skin and soft tissue. Doubt deep infection. Patient cleared bacteremia quickly and Echocardiogram was negative. Plan is cefazolin 2gm q8hr for 2 weeks from his negative blood culture and blood cultures x 1 a week after completing his antibiotics to make sure no recurrence of bacteremia
[2021-05-25] MEDS ORDERED: INSULIN DETEMIR (LEVEMIR) 100 UNIT/ML SYR SQ SCH (07:00)
--- NOTE | 2021-05-26 11:37 | IR ---
EXAMINATION TYPE: IR cvc insert >=5 years DATE OF EXAM: 05/26/2021 COMPARISON: NONE CLINICAL HISTORY: Infection Needs long-term intravenous access for antibiotics. PROCEDURE: Hand hygiene obtained with soap and water and alcohol-based hand rub. After informed consent, the skin overlying the right upper extremity vein was localized with ultrasou nd and noted to be compressible and patent. An ultrasound image was obtained and submitted on the shamika barker's chart. The overlying skin was prepped and draped and Lidocaine was used for local anesthesia . A skin nery was made with a scalpel. Access was gained to the vein under ultrasound guidance with a 21 gauge needle and a 0.018 inch wire was advanced. Access site was dilated with Peel-Away sheath and catheter tailored to the appropriate length and advanced such that the distal tip is at the cavo atrial junction. Spot image was obtained verifying placement. Catheter was fixed to the skin and a sterile dressing was placed following hemostasis. Catheter was aspirated and flushed with saline. P atient was discharged in stable condition without complication.Maximal barrier technique is utilized. Ultrasound image is documented on the chart. Ultrasound used with sterile technique. Fluoro time and fluoroscopic images submitted to document procedure: 111 intraoperative C-arm images, 0.3 minutes fluoroscopy time IMPRESSION: STATUS POST ULTRASOUND AND FLUOROSCOPIC GUIDED PICC LINE PLACEMENT, READY FOR USE. THIS PROCEDURE WAS PERFORMED BY THE UNDERSIGNED.
== END 2021-05-24 17:53 | DRG 280 ==
LOC: EC 06:15 → 5NMEDONC 07:43
PROVIDERS: ADMIT Hospitalist; ATTEND Hospitalist
PROC: 02HV33Z Insertion of Infusion Device into Superior Vena Cava, Percutaneous Approach (ICD-10-PCS; principal; 2021-05-24 11:55)
PROC: B548ZZA Ultrasonography of Superior Vena Cava, Guidance (ICD-10-PCS; principal; 2021-05-24 11:55)
DX: I13.0 Hypertensive heart and chronic kidney disease with heart failure and stage 1 through stage 4 chronic kidney disease, or unspecified chronic kidney disease (principal); G93.41 Metabolic encephalopathy; I21.9 Acute myocardial infarction, unspecified; I50.43 Acute on chronic combined systolic (congestive) and diastolic (congestive) heart failure; J18.9 Pneumonia, unspecified organism; J96.21 Acute and chronic respiratory failure with hypoxia; N17.0 Acute kidney failure with tubular necrosis; E87.1 Hypo-osmolality and hyponatremia; E87.2 Acidosis; J44.0 Chronic obstructive pulmonary disease with (acute) lower respiratory infection; J44.1 Chronic obstructive pulmonary disease with (acute) exacerbation; J98.11 Atelectasis; E46 Unspecified protein-calorie malnutrition; I42.8 Other cardiomyopathies; E11.622 Type 2 diabetes mellitus with other skin ulcer; E11.65 Type 2 diabetes mellitus with hyperglycemia; L89.152 Pressure ulcer of sacral region, stage 2; Z99.81 Dependence on supplemental oxygen; E88.09 Other disorders of plasma-protein metabolism, not elsewhere classified; L97.519 Non-pressure chronic ulcer of other part of right foot with unspecified severity; F10.21 Alcohol dependence, in remission; D63.1 Anemia in chronic kidney disease; L97.529 Non-pressure chronic ulcer of other part of left foot with unspecified severity; L89.892 Pressure ulcer of other site, stage 2; E11.621 Type 2 diabetes mellitus with foot ulcer; E11.22 Type 2 diabetes mellitus with diabetic chronic kidney disease; F32.A Depression, unspecified; D53.9 Nutritional anemia, unspecified; B96.89 Other specified bacterial agents as the cause of diseases classified elsewhere; Z86.16 Personal history of COVID-19; I45.10 Unspecified right bundle-branch block; D50.9 Iron deficiency anemia, unspecified; B95.61 Methicillin susceptible Staphylococcus aureus infection as the cause of diseases classified elsewhere; I48.0 Paroxysmal atrial fibrillation; Z20.822 Contact with and (suspected) exposure to COVID-19; E87.6 Hypokalemia; E78.5 Hyperlipidemia, unspecified; E83.42 Hypomagnesemia; E87.5 Hyperkalemia; Z79.01 Long term (current) use of anticoagulants; F41.0 Panic disorder [episodic paroxysmal anxiety]; G47.33 Obstructive sleep apnea (adult) (pediatric); K21.9 Gastro-esophageal reflux disease without esophagitis; K57.90 Diverticulosis of intestine, part unspecified, without perforation or abscess without bleeding; R94.5 Abnormal results of liver function studies; N18.32 Chronic kidney disease, stage 3b; S52.502D Unspecified fracture of the lower end of left radius, subsequent encounter for closed fracture with routine healing; W19.XXXD Unspecified fall, subsequent encounter; Y92.009 Unspecified place in unspecified non-institutional (private) residence as the place of occurrence of the external cause; Z79.4 Long term (current) use of insulin; Z79.890 Hormone replacement therapy; Z79.899 Other long term (current) drug therapy; Z86.718 Personal history of other venous thrombosis and embolism; Z87.01 Personal history of pneumonia (recurrent); Z87.891 Personal history of nicotine dependence; Z90.49 Acquired absence of other specified parts of digestive tract; Z91.81 History of falling; Z95.0 Presence of cardiac pacemaker; Z83.49 Family history of other endocrine, nutritional and metabolic diseases; Z98.890 Other specified postprocedural states; Z68.29 Body mass index [BMI] 29.0-29.9, adult
CPT/HCPCS: 29125; 36415; 36573; 71045; 71046; 80048; 80053; 81001; 82009; 82533; 82728; 83036; 83540; 83550; 83605; 83735; 83880; 84145; 84484; 85025; 85610; 85652; 85730; 86140; 86850; 86900; 86901; 87040; 87070; 87077; 87186; 87205; 87635; 93005; 93306; 94640; 94760; 96374; 96375; 99285

== ENCOUNTER 2021-06-24 14:53 | Inpatient (IN) | payer OTHER, MEDICARE ==
--- NOTE | 2021-06-24 15:37 | ED ---
General Adult HPI - General Chief complaint: Shortness of Breath Stated complaint: SOB Time Seen by Provider: 06/24/21 15:04 Source: patient, EMS Mode of arrival: EMS Limitations: no limitations - History of Present Illness Initial comments: Dictation was produced using [employer] dictation software. please excuse any grammatical, word or spelling errors. Chief Complaint: 65-year-old male with multiple cardiopulmonary comorbid is presents emergency room for shortness of breath History of Present Illness: 65-year-old male presents emergency Department with shortness of breath. Patient recently recovered from COVID-19. He has history of A. fib, heart failure, COPD diabetes. He is brought in from a [place] [facility] for shortness of breath. Patient states that he is always short of breath. He feels more short of breath because he states that he is in the bed all day. He feels more short of breath when he tries to get up. Patient wears 6 L nasal cannula oxygen at home. According to jail/rehab facility they had to increase his oxygen recently. Chronic cough. His cough sounded different. His sputum still the same color of white. Denies any chest pain. Feels at baseline at bedside. The ROS documented in this emergency department record has been reviewed and confirmed by me. Those systems with pertinent positive or negative responses have been documented in the HPI. All other systems are other negative and/or noncontributory. PHYSICAL EXAM: General Impression: Alert and oriented x3, not in acute distress HEENT: Normocephalic atraumatic, extra-ocular movements intact, pupils equal and reactive to light bilaterally, mucous membranes moist. Cardiovascular: Heart regular rate and rhythm Chest: Able to complete full sentences, no retractions, no tachypnea diffuse lung auscultatory crackles Abdomen: abdomen soft, non-tender, non-distended, no organomegaly Musculoskeletal: Pulses present and equal in all extremities, no peripheral edema Motor: no focal deficits noted Neurological: CN II-XII grossly intact, no focal motor or sensory deficits noted Skin: Intact with no visualized rashes Psych: Normal affect and mood ED course: 65-year-old male with multiple comorbidities presents emergency department for shortness of breath. Patient was just admitted to the hospital last month for same issue. He was evaluated by pulmonology and cardiology. Patient has multiple comorbidities. Patient states he feels that he feels at baseline at this time. Vital signs upon arrival shows 92% room air. Patient wears 6 L of nasal cannula oxygen normally. He is satting well 6 L. His no acute distress. Laboratory evaluation obtained. CBC is within acceptable limits. Metabolic pa prema shows creatinine 2.47. This appears to be slightly above his baseline of the recent past. Magnesium critically low at 0.8. Within acceptable limits. 4 panel viral PCR is negative. Chest x-ray suggests CHF. Given patient's medical history and abnormal labs to be admitted for acute kidney injury. Patient elevated renal markers likely secondary to overdiuresis. Patient be admitted for kidney monitoring. Patient treated with parenteral magnesium. Patient agreeable with plan. EKG interpretation: Ventricular rate 70, sinus rhythm, MI interval 216, QRS 145, QTc 433. no QTC prolongation, no ST or T-wave changes noted. EKG compared to general 02/24/2022 showing no changes. Overall, this EKG is unremarkable - Related Data Home Medications Medication Instructions Recorded Confirmed Tamsulosin [Flomax] 0.4 mg PO DAILY 06/23/16 05/17/21 ondansetron HCL [Zofran] 4 mg PO BID PRN 09/30/18 05/17/21 Apixaban [Eliquis] 2.5 mg PO BID 01/11/19 05/17/21 Insulin Glargine,Hum.rec.anlog 25 unit SQ DAILY 08/02/20 05/17/21 [Lantus Solostar Pen] Levothyroxine Sodium [Synthroid] 25 mcg PO DAILY 08/02/20 05/17/21 Dextrose Gel [Glutose 15 Gel] 1 applic MUCOUS MEM DIRECTED 05/17/21 05/17/21 Dicyclomine [Bentyl] 20 mg PO TID PRN 05/17/21 05/17/21 Fluticasone/Salmeterol [Advair 1 puff INHALATION RT-BID 05/17/21 05/17/21 500-50 Diskus] Furosemide [Lasix] 40 mg PO BID 05/17/21 05/17/21 Ipratropium/Albuter 20-100Mcg 1 puff INHALATION RT-QID 05/17/21 05/17/21 [Combivent Respimat 20-100Mcg Inhaler] Lidocaine 5% Patch [Lidoderm 5% 1 patch TOPICAL DAILY PRN 05/17/21 05/17/21 Patch] Midodrine HCl [ProAmatine] 10 mg PO TID 05/17/21 05/17/21 Triamcinolone 0.1% Cream [Kenalog 1 applic TOPICAL BID PRN 05/17/21 05/17/21 0.1% Cream] allopurinoL [Zyloprim] 200 mg PO DAILY 05/17/21 05/17/21 Previous Rx's Medication Instructions Recorded Metoprolol Succinate (ER) [Toprol 50 mg PO HS #30 tab.er.24h 08/31/20 XL] Pantoprazole [Protonix] 40 mg PO DAILY #30 tab 08/31/20 Darbepoetin Hubert [Aranesp] 60 mcg SQ Q7D each 05/24/21 HYDROcodone/APAP 5-325MG [[place] 1 each PO Q4HR PRN #6 tab 05/24/21 5-325] INSULIN ASPART (NovoLOG) [NovoLOG 0 unit SQ ACHS ml 05/24/21 (formulary)] Ipratropium-Albuterol Nebulize 3 ml INHALATION RT-QID ml 05/24/21 [Duoneb 0.5 mg-3 mg/3 ml Soln] Ipratropium-Albuterol Nebulize 3 ml INHALATION RT-QID PRN ml 05/24/21 [Duoneb 0.5 mg-3 mg/3 ml Soln] Saline Nasal Gel [[place] Nasal Gel] 1 applic NASAL Q4HR PRN 05/24/21 ceFAZolin [Kefzol] 2 gm IVP Q8HR #42 dose 05/24/21 guaiFENesin [Mucinex] 600 mg PO Q12HR tablet 05/24/21 Allergies Allergy/AdvReac Type Severity Reaction Status Date / Time No Known Allergies Allergy Verified 06/24/21 14:58 Review of Systems ROS Statement: Those systems with pertinent positive or pertinent negative responses have been documented in the HPI. ROS Other: All systems not noted in ROS Statement are negative. Past Medical History Past Medical History: Atrial Fibrillation, Heart Failure, COPD, Diabetes Mellitus, Deep Vein Thrombosis (DVT), GERD/Reflux, Hyperlipidemia, Hypertension, Pneumonia, Renal Disease, Respiratory Disorder, Skin Disorder, Sleep Apnea/CPAP/BIPAP, Vascular Disorder Additional Past Medical History / Comment(s): Pt recently admitted to [facility] on 08/02/20 with chf/acute on chronic renal disease, possible pneumonia. Pt tested covic+ on 08/20/20 at [facility] ER. Other hx: Chronic hypoxic respiratory failure and the patient OXYGEN dependent 5 L, previous history of left-sided pneumothorax requiring a Thoravent insertion, IDDM type II, paroxysmal AFIB, SSS with pacer, nonischemic cardiomyopathy, past alcoholism/DTs, diverticulosis, obstuctive sleep apnea but no Cpap since wt loss, sinusitis, neuropathy bilateral feet, elevated LFTs, BPH, CKD stag III, DVT R leg, hypomagnesemia, hypoalbuminemia, anemia, protein calorie malnutrition, PVD, current sores bilateral feet. History of Any Multi-Drug Resistant Organisms: None Reported Past Surgical History: Appendectomy, Cholecystectomy, Heart Catheterization, Pacemaker Additional Past Surgical History / Comment(s): Partial liver removed d/t adhesions, colonoscopies, bilateral eyes blepharoplasties, pacer Past Anesthesia/Blood Transfusion Reactions: Postoperative Nausea & Vomiting (PONV) Additional Past Anesthesia/Blood Transfusion Reaction / Comment(s): Pt states he has had PONV with gas only. Type of Cardiac Device: Permanent Pacemaker Device Placement Date:: 2017 Past Psychological History: Anxiety, Depression, Panic Disorder Smoking Status: Former smoker Past Alcohol Use History: None Reported Past Drug Use History: None Reported - Past Family History Mother Family Medical History: Thyroid Disorder Additional Family Medical History / Comment(s): . Father Additional Family Medical History / Comment(s): Father of diverticulitis,peritonitis at the age of 35yrs. General Exam Limitations: no limitations Course Vital Signs 06/24/21 14:58 Temperature 98.5 F Pulse Rate 63 Respiratory 22 Rate Blood Pressure 130/71 O2 Sat by Pulse 92 L Oximetry Medical Decision Making - Lab Data Result diagrams: 06/24/21 16:00 06/24/21 16:00 Lab Results 06/24/21 06/24/21 06/24/21 Range/Units 16:00 16:00 16:00 WBC 11.2 H (3.8-10.6) k/uL RBC 3.00 L (4.30-5.90) m/uL Hgb 9.0 L (13.0-17.5) gm/dL Hct 29.0 L (39.0-53.0) % MCV 96.6 D (80.0-100.0) fL MCH 29.9 (25.0-35.0) pg MCHC 31.0 (31.0-37.0) g/dL RDW 15.9 H (11.5-15.5) % Plt Count 290 (150-450) k/uL MPV 7.6 Neutrophils % 77 % Lymphocytes % 12 % Monocytes % 5 % Eosinophils % 4 % Basophils % 1 % Neutrophils # 8.7 H (1.3-7.7) k/uL Lymphocytes # 1.4 (1.0-4.8) k/uL Monocytes # 0.6 (0-1.0) k/uL Eosinophils # 0.4 (0-0.7) k/uL Basophils # 0.1 (0-0.2) k/uL Hypochromasia Marked Sodium 134 L (137-145) mmol/L Potassium 5.3 H (3.5-5.1) mmol/L Chloride 93 L (98-107) mmol/L Carbon Dioxide 32 H (22-30) mmol/L Anion Gap 9 mmol/L BUN 63 H (9-20) mg/dL Creatinine 2.47 H (0.66-1.25) mg/dL Est GFR (CKD-EPI)AfAm 31 (>60 ml/min/1.73 sqM) Est GFR (CKD-EPI)NonAf 27 (>60 ml/min/1.73 sqM) Glucose 143 H (74-99) mg/dL Calcium 9.4 (8.4-10.2) mg/dL Magnesium 0.8 L* (1.6-2.3) mg/dL Troponin I (0.000-0.034) ng/mL NT-Pro-B Natriuret Pep pg/mL Influenza Type A (PCR) Not Detected (Not Detectd) Influenza Type B (PCR) Not Detected (Not Detectd) RSV (PCR) Not Detected (Not Detectd) SARS-CoV-2 (PCR) Not Detected (Not Detectd) 06/24/21 06/24/21 Range/Units 16:00 16:00 WBC (3.8-10.6) k/uL RBC (4.30-5.90) m/uL Hgb (13.0-17.5) gm/dL Hct (39.0-53.0) % MCV (80.0-100.0) fL MCH (25.0-35.0) pg MCHC (31.0-37.0) g/dL RDW (11.5-15.5) % Plt Count (150-450) k/uL MPV Neutrophils % % Lymphocytes % % Monocytes % % Eosinophils % % Basophils % % Neutrophils # (1.3-7.7) k/uL Lymphocytes # (1.0-4.8) k/uL Monocytes # (0-1.0) k/uL Eosinophils # (0-0.7) k/uL Basophils # (0-0.2) k/uL Hypochromasia Sodium (137-145) mmol/L Potassium (3.5-5.1) mmol/L Chloride (98-107) mmol/L Carbon Dioxide (22-30) mmol/L Anion Gap mmol/L BUN (9-20) mg/dL Creatinine (0.66-1.25) mg/dL Est GFR (CKD-EPI)AfAm (>60 ml/min/1.73 sqM) Est GFR (CKD-EPI)NonAf (>60 ml/min/1.73 sqM) Glucose (74-99) mg/dL Calcium (8.4-10.2) mg/dL Magnesium (1.6-2.3) mg/dL Troponin I <0.012 (0.000-0.034) ng/mL NT-Pro-B Natriuret Pep 1150 pg/mL Influenza Type A (PCR) (Not Detectd) Influenza Type B (PCR) (Not Detectd) RSV (PCR) (Not Detectd) SARS-CoV-2 (PCR) (Not Detectd) Disposition Clinical Impression: Hypomagnesemia, ROHINI (acute kidney injury) Disposition: ADMITTED IP TO THIS HOSP Condition: Fair Referrals: Freddy Hines, PAC [Primary Care Provider] - 1-2 days
--- NOTE | 2021-06-24 15:55 | XR ---
EXAMINATION TYPE: XR chest 1V portable DATE OF EXAM: 06/24/2021 COMPARISON: Chest x-ray May 23, 2021 HISTORY: Shortness of breath TECHNIQUE: Single frontal view of the chest is obtained. FINDINGS: There is persistent cardiomegaly with dual lead pacemaker and atherosclerotic aorta. Sligh tly more prominent small to moderate-sized right pleural effusion. Increasing right greater than left bibasilar opacities . The osseous structures are intact. IMPRESSION: Right greater than left bibasilar acute infiltrate and/or atelectasis with small right g reater left pleural effusions are increased in size from prior on background cardiomegaly. Correlate for CHF exacerbation.
[2021-06-24 16:09] LABS: Basophils # (A) 0.1 k/uL (0-0.2); Basophils % (A) 1 %; Eosinophils # (A) 0.4 k/uL (0-0.7); Eosinophils % (A) 4 %; Hypochromasia Marked; Lymphocytes # (A) 1.4 k/uL (1.0-4.8); Lymphocytes % (A) 12 %; MCH 29.9 pg (25.0-35.0); Mean Platelet Volume 7.6; Monocytes # (A) 0.6 k/uL (0-1.0); Monocytes % (A) 5 %; Neutrophils # (A) 8.7 k/uL (1.3-7.7); Neutrophils % (A) 77 %; Platelet Count 290 k/uL (150-450); RDW 15.9 % (11.5-15.5); WBC 11.2 k/uL (3.8-10.6)
[2021-06-24 16:14] LABS: MCV 96.6 fL (80.0-100.0)
[2021-06-24 16:23] LABS: Calcium 9.4 mg/dL (8.4-10.2); Potassium 5.3 mmol/L (3.5-5.1)
[2021-06-24 16:46] LABS: Influenza A Not Detected (Not Detectd); Influenza B Not Detected (Not Detectd)
[2021-06-24 16:54] LABS: Magnesium 0.8 mg/dL (1.6-2.3)
[2021-06-24] MEDS: MAGNESIUM SULFATE-D5W PMX 1 GM in DEXTROSE/WATER 1 100ML.BAG IVPB SCH ×2 (17:28→20:36)
[2021-06-24] MEDS ORDERED: NALOXONE 0.4 MG/ML 1 ML VIAL IV PRN (17:55)
[2021-06-24] MEDS ORDERED: SODIUM CHLORIDE 0.9% 1,000 ML IV SCH (18:00)
[2021-06-24] MEDS ORDERED: ONDANSETRON 4 MG TAB PO PRN (22:32)
[2021-06-24] MEDS ORDERED: DICYCLOMINE 20 MG TAB PO PRN (22:32)
--- NOTE | 2021-06-24 22:34 | P.HPIM ---
History of Present Illness H&P Date: 06/24/21 The patient is a 65-year-old male with an extensive PMH including COPD, chronic tobacco respiratory failure on 3 L of the cannula oxygen chronic kidney disease, systolic CHF, type II DM, hypothyroidism, hypertension, hyperlipidemia, A. fib on Eliquis, who was sent in from [facility] for shortness of breath. The patient was admitted to the hospital on 05/17/2021 for hypoxic respiratory failure seco ndary to COPD and pneumonia from where he was discharged to [facility]. Patient reports that since this diagnosis of COVID in 08/2020 that he has had persistent shortness of breath. He notes that it is at his baseline at the time of evaluation. He reports a chronic cough with white phlegm which is unchanged. He denied chest discomfort, nausea, vomiting, abdominal pain, diarrhea, dizziness. Reports using 3-4 L of nasal cannula oxygen continuously which has not changed. In the emergency room, laboratory evaluation was remarkable for magnesium of 0.8, BUN 63, creatinine 2.47 (up from 1.4), and potassium 5.3. EKG reveals sinus rhythm with first-degree AV block at 70 bpm with right bundle br anch block. Chest x-ray revealed right greater than left bibasilar acute infiltrates along with pleural effusions concerning for CHF. Review of systems: Pertinent positives and negatives as discussed in HPI, a complete review of systems was performed and all other systems are negative. Physical examination: General: non toxic, no distress, appears older than stated age, normal weight Derm: no unusual rashes/lesions no unusual ecchymoses, warm, dry Head: atraumatic, normocephalic, symmetric Eyes: EOMI, no lid lag, anicteric sclera, pupils equal round reactive to light ENT: Nose and ears atraumatic, no thrush, no pharyngeal erythema Neck: No thyromegaly, no cervical lymphadenopathy, trachea midline, supple Mouth: no lip lesion, mucus membranes moist Cardiovascular: S1S2 reg, no murmur, positive posterior tibial pulse bilateral, no edema, capillary refill less than 2 seconds Lungs: Scattered rhonchi and bibasilar rales, no accessory muscle use Abdominal: soft, nontender to palpation, no guarding, no appreciable organomegaly, normal bowel sounds Ext: no gross muscle atrophy, muscle strength 5 out of 5 in all 4 extremities grossly except left upper extremity with splint in place, no contractures, Neuro: CN II-XI grossly intact, light touch intact all 4 extremities, finger to nose within normal limits, Psych: Alert, oriented, appropriate affect Assessment/plan ROHINI on chronic kidney disease -May be secondary to overdiuresis -Hold off on Lasix at this time and monitor BMP Hypomagnesemia -Replace and monitor Hyperkalemia -Likely due to ongoing kidney injury -Monitor for now Chronic conditions: COPD, type II DM, hypertension, hyperlipidemia, hypothyroidism, A. fib -Continue with home meds -Insulin sliding scale with blood glucose monitoring -Check A1c DVT prophylaxis -Eliquis The patient is admitted with an anticipated greater than 2 midnight stay for evaluation of ROHINI CODE STATUS: Full Code Discussed with: Patient Anticipated discharge date: 2-[address]: Home Past Medical History Past Medical History: Atrial Fibrillation, Heart Failure, COPD, Diabetes Mellitus, Deep Vein Thrombosis (DVT), GERD/Reflux, Hyperlipidemia, Hypertension, Pneumonia, Renal Disease, Respiratory Disorder, Skin Disorder, Sleep Apnea/CPAP/BIPAP, Vascular Disorder Additional Past Medical History / Comment(s): Pt recently admitted to [facility] on 08/02/20 with chf/acute on chronic renal disease, possible pneumonia. Pt tested covic+ on 08/20/20 at [facility] ER. Other hx: Chronic hypoxic respiratory failure and the patient OXYGEN dependent 5 L, previous history of left-sided pneumothorax requiring a Thoravent insertion, IDDM type II, paroxysmal AFIB, SSS with pacer, nonischemic cardiomyopathy, past alcoholism/DTs, diverticulosis, obstuctive sleep apnea but no Cpap since wt loss, sinusitis, neuropathy bilateral feet, elevated LFTs, BPH, CKD stag III, DVT R leg, hypomagnesemia, hypoalbuminemia, anemia, protein calorie malnutrition, PVD, current sores bilateral feet. History of Any Multi-Drug Resistant Organisms: None Reported Past Surgical History: Appendectomy, Cholecystectomy, Heart Catheterization, Pacemaker Additional Past Surgical History / Comment(s): Partial liver removed d/t adhesions, colonoscopies, bilateral eyes blepharoplasties, pacer Past Anesthesia/Blood Transfusion Reactions: Postoperative Nausea & Vomiting (PONV) Additional Past Anesthesia/Blood Transfusion Reaction / Comment(s): Pt states he has had PONV with gas only. Type of Cardiac Device: Permanent Pacemaker Device Placement Date:: 2017 Past Psychological History: Anxiety, Depression, Panic Disorder Smoking Status: Former smoker Past Alcohol Use History: None Reported Past Drug Use History: None Reported - Past Family History Mother Family Medical History: Thyroid Disorder Additional Family Medical History / Comment(s): . Father Additional Family Medical History / Comment(s): Father of diverticulitis,peritonitis at the age of 35yrs. Medications and Allergies Home Medications Medication Instructions Recorded Confirmed Type Tamsulosin [Flomax] 0.4 mg PO DAILY@1400 06/23/16 06/24/21 History ondansetron HCL [Zofran] 4 mg PO Q8H PRN 09/30/18 06/24/21 History Apixaban [Eliquis] 2.5 mg PO BID 01/11/19 06/24/21 History Insulin Glargine,Hum.rec.anlog 25 unit SQ HS@199908/02/20 06/24/21 History [Lantus Solostar Pen] Levothyroxine Sodium [Synthroid] 25 mcg PO DAILY@0700 08/02/20 06/24/21 History Ipratropium/Albuter 20-100Mcg 1 puff INHALATION RT-QID 05/17/21 06/24/21 History [Combivent Respimat 20-100Mcg Inhaler] Lidocaine 5% Patch [Lidoderm 5% 1 patch TOPICAL DAILY@1600 PRN 05/17/21 06/24/21 History Patch] Midodrine HCl [ProAmatine] 10 mg PO TID 05/17/21 06/24/21 History allopurinoL [Zyloprim] 200 mg PO DAILY@1400 05/17/21 06/24/21 History Ascorbic Acid [Vitamin C] 1,000 mg PO BID@0800,1400 06/24/21 06/24/21 History Budesonide [Pulmicort] 0.5 mg INHALATION RT-BID 06/24/21 06/24/21 History Cholecalciferol [Vitamin D3 (25 25 mcg PO DAILY@0800 06/24/21 06/24/21 History Mcg = 1000 Iu)] Dicyclomine [Bentyl] 20 mg PO Q8H PRN 06/24/21 06/24/21 History Ferrous Sulfate [Feosol] 325 mg PO DAILY@0800 06/24/21 06/24/21 History Fluticasone/Vilanterol [Breo 1 puff INHALATION RT-DAILY@0600 06/24/21 06/24/21 History Ellipta 200-25 Mcg Inhaler] HYDROcodone/APAP 5-325MG [[place] 1 tab PO Q8H PRN 06/24/21 06/24/21 History 5-325] HYDROcodone/APAP 5-325MG [[place] 1 tab PO Q8H PRN 06/24/21 06/24/21 History 5-325] INSULIN ASPART (NovoLOG) [NovoLOG See Protocol SQ ACHS 06/24/21 06/24/21 History (formulary)] Ipratropium-Albuterol Nebulize 3 ml INHALATION RT-Q4H PRN 06/24/21 06/24/21 History [Duoneb 0.5 mg-3 mg/3 ml Soln] Loperamide HCl [Loperamide] 2 mg PO Q6H PRN 06/24/21 06/24/21 History Metoprolol Succinate (ER) [Toprol 50 mg PO HS@199906/24/21 06/24/21 History XL] Omeprazole 20 mg PO HS@199906/24/21 06/24/21 History Torsemide [Demadex] 40 mg PO DAILY@0700 06/24/21 06/24/21 History Zinc Sulfate [Orazinc] 220 mg PO BID@0800,1400 06/24/21 06/24/21 History Allergies Allergy/AdvReac Type Severity Reaction Status Date / Time codeine Allergy Unknown Verified 06/24/21 18:27 Physical Exam Vitals: Vital Signs Temp Pulse Pulse Resp BP BP Pulse Ox 06/24/21 20:00 97.4 F L 78 18 127/69 98 06/24/21 19:21 75 18 122/76 100 06/24/21 14:58 98.5 F 63 22 130/71 92 L Intake and Output 06/24/21 06/24/21 06/24/21 06:59 14:59 22:59 Other: Weight 86.636 kg Results CBC & Chem 7: 06/24/21 16:00 06/24/21 16:00 Labs: Abnormal Lab Results - Last 24 Hours (Table) 02/17/22 02/17/22 Range/Units 16:00 16:00 WBC 11.2 H (3.8-10.6) k/uL RBC 3.00 L (4.30-5.90) m/uL Hgb 9.0 L (13.0-17.5) gm/dL Hct 29.0 L (39.0-53.0) % RDW 15.9 H (11.5-15.5) % Neutrophils # 8.7 H (1.3-7.7) k/uL Sodium 134 L (137-145) mmol/L Potassium 5.3 H (3.5-5.1) mmol/L Chloride 93 L (98-107) mmol/L Carbon Dioxide 32 H (22-30) mmol/L BUN 63 H (9-20) mg/dL Creatinine 2.47 H (0.66-1.25) mg/dL Glucose 143 H (74-99) mg/dL Magnesium 0.8 L* (1.6-2.3) mg/dL
[2021-06-24] MEDS ORDERED: IPRATROPIUM-ALBUTEROL 3 ML NEB INHALATION PRN (22:43)
[2021-06-24] MEDS: HYDROcodone/APAP 5-325MG 1 EACH TAB PO PRN (23:36)
[2021-06-24] MEDS: LOPERAMIDE 2 MG CAP PO PRN (23:36)
[2021-06-25 07:07] LABS: Glucose,Whole Blood 125 mg/dL (75-99)
[2021-06-25] MEDS: BUDESONIDE 0.5 MG/2 ML NEBU INHALATION SCH ×2 (07:25→19:57)
[2021-06-25] MEDS: IPRATROPIUM-ALBUTEROL 3 ML NEB INHALATION SCH ×4 (07:25→19:57)
[2021-06-25] MEDS: SYMBICORT 160-4.5 MCG INHALER INHALATION SCH ×2 (07:28→19:56)
[2021-06-25] MEDS: INSULIN ASPART (NovoLOG) 100 UNIT/ML VIAL SQ SCH ×4 (08:01→20:54)
[2021-06-25] MEDS: MIDODRINE 5 MG TAB PO SCH ×3 (09:12→20:56)
[2021-06-25] MEDS: HYDROcodone/APAP 5-325MG 1 EACH TAB PO PRN (09:12)
[2021-06-25] MEDS: APIXABAN 2.5 MG TABLET PO SCH ×2 (09:12→20:55)
[2021-06-25] MEDS: LEVOTHYROXINE 25 MCG TAB PO SCH (09:12)
[2021-06-25 10:47] LABS: HCT 27.2 % (39.6-50.0); HGB 7.9 g/dL (13.0-17.0); MCH 28.6 pg (27.0-32.0); MCV 98.6 fL (80.0-97.0); Mean Platelet Volume 10.9 fL (9.5-12.2); NRBC Per 100 WBC 0 /100 WBCS (0.0-0.0); Platelet Count 279 X 10*3/uL (140-440); RBC 2.76 X 10*6/uL (4.40-5.60); RDW 15.3 % (11.5-14.5); WBC 8.87 X 10*3/uL (4.50-10.00)
[2021-06-25 11:16] LABS: African American GFR (CKD) 30.3 (60.0-200.0); Anion Gap 11.8 mmol/L (10.00-18.00); BUN/Creat Ratio 22.08 Ratio (12.00-20.00); Blood Urea Nitrogen 55.2 mg/dL (9.0-27.0); Calcium 9.4 mg/dL (8.7-10.3); Carbon Dioxide 30.2 mmol/L (20.0-27.5); Non-African American GFR(CKD) 26.2 (60.0-200.0); Potassium 4.9 mmol/L (3.5-5.5)
[2021-06-25 11:21] LABS: Glucose,Whole Blood 149 mg/dL (75-99)
[2021-06-25] MEDS: SODIUM CHLORIDE 0.9% 1,000 ML IV SCH (13:14)
[2021-06-25] MEDS: TAMSULOSIN 0.4 MG CAP.ER.24H PO SCH (13:18)
[2021-06-25] MEDS: allopurinoL 100 MG TAB PO SCH (13:18)
[2021-06-25] MEDS: HYDROcodone/APAP 10-325MG 1 EACH TAB PO PRN ×2 (16:44→23:17)
[2021-06-25 17:04] LABS: Glucose,Whole Blood 174 mg/dL (75-99)
[2021-06-25 20:53] LABS: Glucose,Whole Blood 127 mg/dL (75-99)
[2021-06-25] MEDS: METOPROLOL SUCCINATE (ER) 50 MG TAB.ER.24H PO SCH (20:55)
[2021-06-26] MEDS: SODIUM CHLORIDE 0.9% 1,000 ML IV SCH ×2 (00:05→13:28)
[2021-06-26] MEDS: BUDESONIDE 0.5 MG/2 ML NEBU INHALATION SCH ×2 (07:19→19:25)
[2021-06-26] MEDS: IPRATROPIUM-ALBUTEROL 3 ML NEB INHALATION SCH ×4 (07:19→19:25)
[2021-06-26] MEDS: SYMBICORT 160-4.5 MCG INHALER INHALATION SCH ×2 (07:20→19:33)
[2021-06-26 07:32] LABS: Glucose,Whole Blood 116 mg/dL (75-99)
[2021-06-26] MEDS: HYDROcodone/APAP 10-325MG 1 EACH TAB PO PRN ×3 (07:56→20:56)
[2021-06-26] MEDS: LEVOTHYROXINE 25 MCG TAB PO SCH (07:57)
[2021-06-26] MEDS: INSULIN ASPART (NovoLOG) 100 UNIT/ML VIAL SQ SCH ×4 (07:57→20:49)
[2021-06-26] MEDS: MIDODRINE 5 MG TAB PO SCH ×3 (07:57→20:55)
[2021-06-26] MEDS: APIXABAN 2.5 MG TABLET PO SCH ×2 (07:57→20:56)
[2021-06-26 12:29] LABS: Glucose,Whole Blood 120 mg/dL (75-99)
--- NOTE | 2021-06-26 13:20 | P.NPCON ---
History of Present Illness - Reason for Consult Consult date: 06/26/21 acute renal failure - Chief Complaint Shortness of breath - History of Present Illness This is a 65-year-old male known to us with chronic kidney disease who was admitted with shortness of breath. His creatinine on admission is 2.47 on the and yesterday on the was 2.5. Baseline creatinine 1.4 on 05/24/2021 He was recently admitted on 05/17/2021 and discharged on 05/24/2021 with thomas rtness of breath, secondary to combination of COPD and pneumonia as well as CHF and was discharged and then readmitted with the same problem. Currently he is doing very well. His edema free. His breathing is back to normal. He is on IV fluids currently Is known with COPD diabetes and atrial fibrillation heart failure DVT. His baseline creatinine is about 1.4 on 05/24/2021. No proteinuria dated 05/18/2021. Past Medical History Past Medical History: Atrial Fibrillation, Heart Failure, COPD, Diabetes Mellitus, Deep Vein Thrombosis (DVT), GERD/Reflux, Hyperlipidemia, Hypertension, Pneumonia, Renal Disease, Respiratory Disorder, Skin Disorder, Sleep Apnea/CPAP/BIPAP, Vascular Disorder Additional Past Medical History / Comment(s): Pt recently admitted to [facility] on 08/02/20 with chf/acute on chronic renal disease, possible pneumonia. Pt tested covic+ on 08/20/[address] [facility] ER. Other hx: Chronic hypoxic respiratory failure and the patient OXYGEN dependent 5 L, previous history of left-sided pneumothorax requiring a Thoravent insertion, IDDM type II, paroxysmal AFIB, SSS with pacer, nonischemic cardiomyopathy, past alcoholism/DTs, diverticulosis, obstuctive sleep apnea but no Cpap since wt loss, sinusitis, neuropathy b ilateral feet, elevated LFTs, BPH, CKD stag III, DVT R leg, hypomagnesemia, hypoalbuminemia, anemia, protein calorie malnutrition, PVD, current sores bilateral feet. History of Any Multi-Drug Resistant Organisms: None Reported Past Surgical History: Appendectomy, Cholecystectomy, Heart Catheterization, Pacemaker Additional Past Surgical History / Comment(s): Partial liver removed d/t adhesions, colonoscopies, bilateral eyes blepharoplasties, pacer Past Anesthesia/Blood Transfusion Reactions: Postoperative Nausea & Vomiting (PONV) Additional Past Anesthesia/Blood Transfusion Reaction / Comment(s): Pt states he has had PONV with gas only. Type of Cardiac Device: Permanent Pacemaker Device Placement Date:: 2017 Past Psychological History: Anxiety, Depression, Panic Disorder Smoking Status: Former smoker Past Alcohol Use History: None Reported Past Drug Use History: None Reported - Past Family History Mother Family Medical History: Thyroid Disorder Additional Family Medical History / Comment(s): . Father Additional Family Medical History / Comment(s): Father of diverticulitis,peritonitis at the age of 35yrs. Medications and Allergies Home Medications Medication Instructions Recorded Confirmed Type Tamsulosin [Flomax] 0.4 mg PO DAILY@1400 06/23/16 06/24/21 History ondansetron HCL [Zofran] 4 mg PO Q8H PRN 09/30/18 06/24/21 History Apixaban [Eliquis] 2.5 mg PO BID 01/11/19 06/24/21 History Insulin Glargine,Hum.rec.anlog 25 unit SQ HS@199908/02/20 06/24/21 History [Lantus Solostar Pen] Levothyroxine Sodium [Synthroid] 25 mcg PO DAILY@0700 08/02/20 06/24/21 History Ipratropium/Albuter 20-100Mcg 1 puff INHALATION RT-QID 05/17/21 06/24/21 History [Combivent Respimat 20-100Mcg Inhaler] Lidocaine 5% Patch [Lidoderm 5% 1 patch TOPICAL DAILY@1600 PRN 05/17/21 06/24/21 History Patch] Midodrine HCl [ProAmatine] 10 mg PO TID 05/17/21 06/24/21 History allopurinoL [Zyloprim] 200 mg PO DAILY@1400 05/17/21 06/24/21 History Ascorbic Acid [Vitamin C] 1,000 mg PO BID@0800,1400 06/24/21 06/24/21 History Budesonide [Pulmicort] 0.5 mg INHALATION RT-BID 06/24/21 06/24/21 History Cholecalciferol [Vitamin D3 (25 25 mcg PO DAILY@0800 06/24/21 06/24/21 History Mcg = 1000 Iu)] Dicyclomine [Bentyl] 20 mg PO Q8H PRN 06/24/21 06/24/21 History Ferrous Sulfate [Feosol] 325 mg PO DAILY@0800 06/24/21 06/24/21 History Fluticasone/Vilanterol [Breo 1 puff INHALATION RT-DAILY@0600 06/24/21 06/24/21 History Ellipta 200-25 Mcg Inhaler] HYDROcodone/APAP 5-325MG [Junction 1 tab PO Q8H PRN 06/24/21 06/24/21 History 5-325] HYDROcodone/APAP 5-325MG [Junction 1 tab PO Q8H PRN 06/24/21 06/24/21 History 5-325] INSULIN ASPART (NovoLOG) [NovoLOG See Protocol SQ ACHS 06/24/21 06/24/21 History (formulary)] Ipratropium-Albuterol Nebulize 3 ml INHALATION RT-Q4H PRN 06/24/21 06/24/21 History [Duoneb 0.5 mg-3 mg/3 ml Soln] Loperamide HCl [Loperamide] 2 mg PO Q6H PRN 06/24/21 06/24/21 History Metoprolol Succinate (ER) [Toprol 50 mg PO HS@199906/24/21 06/24/21 History XL] Omeprazole 20 mg PO HS@199906/24/21 06/24/21 History Torsemide [Demadex] 40 mg PO DAILY@0700 06/24/21 06/24/21 History Zinc Sulfate [Orazinc] 220 mg PO BID@0800,1400 06/24/21 06/24/21 History Allergies Allergy/AdvReac Type Severity Reaction Status Date / Time codeine Allergy Unknown Verified 06/24/21 18:27 Physical Exam Vitals: Vital Signs Temp Pulse Pulse Resp BP Pulse Ox 06/26/21 13:00 97.5 F L 68 19 111/58 95 06/26/21 11:36 80 06/26/21 11:25 80 06/26/21 07:33 80 06/26/21 07:20 80 06/26/21 04:45 97.6 F 61 20 112/67 97 06/25/21 20:07 74 06/25/21 20:03 98.0 F 92 16 123/72 92 L 06/25/21 19:58 76 06/25/21 15:59 80 06/25/21 15:52 96 06/25/21 15:51 79 Intake and Output 06/25/21 06/26/21 06/26/21 22:59 06:59 14:59 Intake Total 780 900 Output Total 120 Balance 660 900 Intake: Intake, IV Titration 900 Amount Sodium Chloride 0.9% 1, 900 000 ml @ 75 mls/hr IV . [id number] [facility] Rx#:[id number] Oral 780 Output: Urine 120 Other: Voiding Method Toilet Urinal # Voids 1 # Bowel Movements 1 On examination is awake alert oriented comfortable on nasal cannula oxygen HEENT exam no JVP neck is supple no facial asymmetry Lungs are clear to auscultation good air entry bilaterally Heart sounds unremarkable for any murmur rub gallop Abdomen soft nontender Extremity exam was no edema Neurologically awake alert oriented. Results - Lab Results Most recent lab results Calcium 9.4 mg/dL (8.7-10.3) 06/25/21 05:45 Magnesium 0.8 mg/dL (1.6-2.3) L* 06/24/21 16:00 06/25/21 05:45 06/25/21 05:45 Assessment and Plan Assessment: Impression 1. Acute kidney injury likely from volume depletion secondary to diarrhea and torsemide he was on 40 mg the [facility]. Creatinine expected to improve with hydration. 2. Chest x-ray is suggestive of possible pneumonia right lower lobe infiltrate. 3. CK D secondary to nephrosclerosis with a creatinine of 1.4 dated 05/24/2021. 4. Hypomagnesemia secondary to diuretics, magnesium is 0.8. 5. Anemia hemoglobin is 9 on admission and came down to 7.9 with hydration. Rule out an deficiency 6. On admission mild hypo-natremia and hyperkalemia sodium 134 and potassium 5.3 with a bicarb of 32 secondary to diuretics, improved with IV fluids Recommendation 1. Replace magnesium with 4 g of IV magnesium sulfate over 6 hours 2. Preferred lactated Ringer's so we will change it to 75 mL of lactated Ringer's. Thank you for this consultation and we'll continue to follow
[2021-06-26] MEDS: MAGNESIUM SULFATE-D5W PMX 1 GM in DEXTROSE/WATER 1 100ML.BAG IVPB SCH ×4 (13:34→17:18)
[2021-06-26] MEDS: TAMSULOSIN 0.4 MG CAP.ER.24H PO SCH (13:34)
[2021-06-26] MEDS: allopurinoL 100 MG TAB PO SCH (13:34)
--- NOTE | 2021-06-26 21:27 | P.PN ---
Subjective Progress Note Date: 06/25/21 65-year-old male with an extensive PMH including COPD, chronic tobacco respiratory failure on 3 L of the cannula oxygen chronic kidney disease, systolic CHF, type II DM, hypothyroidism, hypertension, hyperlipidemia, A. fib on Eliquis, who was sent in from [facility] for shortness of breath. The patient was admitted to the hospital on 05/17/2021 for hypoxic respiratory failure secondary to COPD and pneumonia from where he was discharged to [facility]. Patient reports that since this diagnosis of COVID in 08/2020 that he has had persistent shortness of breath. He notes that it is at his baseline at the time of evaluation. He reports a chronic cough with white phlegm which is unchanged. He denied chest discomfort, nausea, vomiting, abdominal pain, diarrhea, dizziness. Reports using 3-4 L of nasal cannula oxygen continuously which has not changed. In the emergency room, laboratory evaluation was remarkable for magnesium of 0.8, BUN 63, creatinine 2.47 (up from 1.4), and potassium 5.3. EKG reveals sinus rhythm with first-degree AV block at 70 bpm with right bundle branch block. Chest x-ray revealed right greater than left bibasilar acute infiltrates along with pleural effusions concerning for CHF. Objective - Vital Signs Vital signs: Vital Signs Temp 97.9 F 06/25/21 11:15 Pulse 77 06/25/21 11:32 Resp 18 06/25/21 11:15 BP 113/69 06/25/21 11:15 Pulse Ox 95 06/25/21 11:15 Intake & Output 06/24/21 06/25/21 06/25/21 18:59 06:59 18:59 Intake Total 700 Output Total 200 Balance 500 Weight 86.636 kg Intake: Intake, IV Titration 100 Amount Magnesium Sulfate-D5w Pmx 100 1 gm In Dextrose/Water 1 100ml.bag @ 100 mls/hr IVPB Q1H [facility] Rx#: [id number] Oral 600 Output: Urine 200 - Exam - Constitutional General appearance: Present: average body habitus, cooperative, no acute distress - EENT Eyes: Present: anicteric sclerae, EOMI, PERRLA, normal appearance ENT: Present: hearing grossly normal, normal oropharynx Ears: bilateral: normal - Neck Neck: Present: normal ROM. Absent: lymphadenopathy, rigidity, thyromegaly Carotids: negative: bruit present Thyroid: bilateral: normal size, negative: enlarged, nodule - Respiratory Respiratory: bilateral: CTA, negative: rales, rhonchi, wheezing - Cardiovascular Rhythm: regular Heart sounds: normal: S1, S2 Abnormal Heart Sounds: Absent: systolic murmur, diastolic murmur - Gastrointestinal General gastrointestinal: Present: normal bowel sounds, soft. Absent: distended, organomegaly, tenderness - Genitourinary Genitourinary Comment(s): deferred - Integumentary Integumentary: Present: normal turgor. Absent: jaundiced, rash, ulcer - Neurologic Neurologic: Present: CNII-XII intact. Absent: focal deficits - Musculoskeletal Musculoskeletal: Present: gait normal, strength equal bilaterally - Psychiatric Psychiatric: Present: A&O x's 3, appropriate affect, intact judgment & insight - Labs CBC & Chem 7: 06/25/21 05:45 06/25/21 05:45 Labs: Abnormal Lab Results - Last 24 Hours (Table) 06/24/21 06/24/21 06/25/21 Range/Units 16:00 16:00 05:45 WBC 11.2 H (3.8-10.6) k/uL RBC 3.00 L (4.30-5.90) m/uL Hgb 9.0 L (13.0-17.5) gm/dL Hct 29.0 L (39.0-53.0) % MCV (80.0-97.0) fL MCHC (32.0-37.0) g/dL RDW 15.9 H (11.5-15.5) % Neutrophils # 8.7 H (1.3-7.7) k/uL Sodium 134 L (137-145) mmol/L Potassium 5.3 H (3.5-5.1) mmol/L Chloride 93 L (98-107) mmol/L Carbon Dioxide 32 H (22-30) mmol/L BUN 63 H (9-20) mg/dL Creatinine 2.47 H (0.66-1.25) mg/dL Est GFR (CKD-EPI)AfAm (60.0-200.0) Est GFR (CKD-EPI)NonAf (60.0-200.0) BUN/Creatinine Ratio (12.00-20.00) Ratio Glucose 143 H (74-99) mg/dL POC Glucose (mg/dL) (75-99) mg/dL Hemoglobin A1c 6.4 H (0.0-6.0) % Magnesium 0.8 L* (1.6-2.3) mg/dL 06/25/21 06/25/21 06/25/21 Range/Units 05:45 05:45 07:05 WBC (3.8-10.6) k/uL RBC 2.76 L (4.30-5.90) m/uL Hgb 7.9 L (13.0-17.5) gm/dL Hct 27.2 L (39.0-53.0) % MCV 98.6 H (80.0-97.0) fL MCHC 29.0 L (32.0-37.0) g/dL RDW 15.3 H (11.5-15.5) % Neutrophils # (1.3-7.7) k/uL Sodium (137-145) mmol/L Potassium (3.5-5.1) mmol/L Chloride 94 L (98-107) mmol/L Carbon Dioxide 30.2 H (22-30) mmol/L BUN 55.2 H (9-20) mg/dL Creatinine 2.5 H (0.66-1.25) mg/dL Est GFR (CKD-EPI)AfAm 30.3 L (60.0-200.0) Est GFR (CKD-EPI)NonAf 26.2 L (60.0-200.0) BUN/Creatinine Ratio 22.08 H (12.00-20.00) Ratio Glucose 133 H (74-99) mg/dL POC Glucose (mg/dL) 125 H (75-99) mg/dL Hemoglobin A1c (0.0-6.0) % Magnesium (1.6-2.3) mg/dL 06/25/21 Range/Units 11:20 WBC (3.8-10.6) k/uL RBC (4.30-5.90) m/uL Hgb (13.0-17.5) gm/dL Hct (39.0-53.0) % MCV (80.0-97.0) fL MCHC (32.0-37.0) g/dL RDW (11.5-15.5) % Neutrophils # (1.3-7.7) k/uL Sodium (137-145) mmol/L Potassium (3.5-5.1) mmol/L Chloride (98-107) mmol/L Carbon Dioxide (22-30) mmol/L BUN (9-20) mg/dL Creatinine (0.66-1.25) mg/dL Est GFR (CKD-EPI)AfAm (60.0-200.0) Est GFR (CKD-EPI)NonAf (60.0-200.0) BUN/Creatinine Ratio (12.00-20.00) Ratio Glucose (74-99) mg/dL POC Glucose (mg/dL) 149 H (75-99) mg/dL Hemoglobin A1c (0.0-6.0) % Magnesium (1.6-2.3) mg/dL Assessment and Plan Assessment: 1. Acute on chronic kidney disease; possibly related to overdiuresis - Diuretics have been placed on hold; we will continue to monitor strict KEMAL's, daily weights, renal function and electrolytes - Start patient on slow IV fluid hydration with normal saline at a rate of 75 mL an hour 2. Hyperkalemia; likely related to acute renal injury; resolved; we will continue to monitor electrolytes closely 3. COPD; not in exacerbation; continue with Pulmicort inhaler twice a day; Du oNeb nebulizer treatments 4 times a day and when necessary; Symbicort 160 MCG twice a day 4. Hypertension; Toprol-XL 50 mg daily 5. Hyperlipidemia; not on statin therapy at this time 6. Hypothyroidism; levothyroxin 25 MCG daily 7. Atrial fibrillation; rate controlled on metoprolol 50 mg by mouth daily at bedtime; Eliquis 2.5 mg twice a day for anticoagulation 8. Diabetes mellitus type 2; remains on Accu-Cheks before meals and at bedtime with insulin sliding scale DVT prophylaxis; SCDs/Eliquis CODE STATUS; full code
--- NOTE | 2021-06-26 21:28 | P.PN ---
Subjective Progress Note Date: 06/26/21 65-year-old male with an extensive PMH including COPD, chronic tobacco respiratory failure on 3 L of the cannula oxygen chronic kidney disease, systolic CHF, type II DM, hypothyroidism, hypertension, hyperlipidemia, A. fib on Eliquis, who was sent in from [facility] for shortness of breath. The patient was admitted to the hospital on 05/17/2021 for hypoxic respiratory failure secondary to COPD and pneumonia from where he was discharged to [facility]. Patient reports that since this diagnosis of COVID in 08/2020 that he has had persistent shortness of breath. He notes that it is at his baseline at the time of evaluation. He reports a chronic cough with white phlegm which is unchanged. He denied chest discomfort, nausea, vomiting, abdominal pain, diarrhea, dizziness. Reports using 3-4 L of nasal cannula oxygen continuously which has not changed. In the emergency room, laboratory evaluation was remarkable for magnesium of 0.8, BUN 63, creatinine 2.47 (up from 1.4), and potassium 5.3. EKG reveals sinus rhythm with first-degree AV block at 70 bpm with right bundle branch block. Chest x-ray revealed right greater than left bibasilar acute infiltrates along with pleural effusions concerning for CHF. Patient has been placed on IV fluids in form of normal saline; nephrology is consulted and recommending to switch to lactated Ringer; plan is to continue to monitor renal function and electrolytes closely Objective - Vital Signs Vital signs: Vital Signs Temp 97.5 F L 06/26/21 13:00 Pulse 72 06/26/21 15:21 Resp 19 06/26/21 13:00 BP 111/58 06/26/21 13:00 Pulse Ox 95 06/26/21 13:00 Intake & Output 06/25/21 06/26/21 06/26/21 18:59 06:59 18:59 Intake Total 1020 900 Output Total 120 Balance 900 900 Intake: Intake, IV Titration 900 Amount Sodium Chloride 0.9% 1, 900 000 ml @ 75 mls/hr IV . [id number] [facility] Rx#:[id number] Oral 1020 Output: Urine 120 Other: Voiding Method Toilet Urinal # Voids 1 # Bowel Movements 1 - Exam - Constitutional General appearance: Present: average body habitus, cooperative, no acute distress - EENT Eyes: Present: anicteric sclerae, EOMI, PERRLA, normal appearance ENT: Present: hearing grossly normal, normal oropharynx Ears: bilateral: normal - Neck Neck: Present: normal ROM. Absent: lymphadenopathy, rigidity, thyromegaly Carotids: negative: bruit present Thyroid: bilateral: normal size, negative: enlarged, nodule - Respiratory Respiratory: bilateral: CTA, negative: rales, rhonchi, wheezing - Cardiovascular Rhythm: regular Heart sounds: normal: S1, S2 Abnormal Heart Sounds: Absent: systolic murmur, diastolic murmur - Gastrointestinal General gastrointestinal: Present: normal bowel sounds, soft. Absent: distended, organomegaly, tenderness - Genitourinary Genitourinary Comment(s): deferred - Integumentary Integumentary: Present: normal turgor. Absent: jaundiced, rash, ulcer - Neurologic Neurologic: Present: CNII-XII intact. Absent: focal deficits - Musculoskeletal Musculoskeletal: Present: gait normal, strength equal bilaterally - Psychiatric Psychiatric: Present: A&O x's 3, appropriate affect, intact judgment & insight - Labs CBC & Chem 7: 06/25/21 05:45 06/25/21 05:45 Labs: Abnormal Lab Results - Last 24 Hours (Table) 06/25/21 06/25/21 06/26/21 Range/Units 17:03 20:51 07:30 POC Glucose (mg/dL) 174 H 127 H 116 H (75-99) mg/dL 06/26/21 Range/Units 12:24 POC Glucose (mg/dL) 120 H (75-99) mg/dL Assessment and Plan Assessment: 1. Acute on chronic kidney disease; possibly related to overdiuresis - Diuretics have been placed on hold; we will continue to monitor strict KEMAL's, daily weights, renal function and electrolytes - Start patient on slow IV fluid hydration with normal saline at a rate of 75 mL an hour 2. Hyperkalemia; likely related to acute renal injury; resolved; we will continue to monitor electrolytes closely 3. COPD; not in exacerbation; continue with Pulmicort inhaler twice a day; DuoNeb nebulizer treatments 4 times a day and when necessary; Symbicort 160 MCG twice a day 4. Hypertension; Toprol-XL 50 mg daily 5. Hyperlipidemia; not on statin therapy at this time 6. Hypothyroidism; levothyroxin 25 MCG daily 7. Atrial fibrillation; rate controlled on metoprolol 50 mg by mouth daily at bedtime; Eliquis 2.5 mg twice a day for anticoagulation 8. Diabetes mellitus type 2; remains on Accu-Cheks before meals and at bedtime with insulin sliding scale DVT prophylaxis; SCDs/Eliquis CODE STATUS; full code
[2021-06-26] MEDS: METOPROLOL SUCCINATE (ER) 50 MG TAB.ER.24H PO SCH (21:50)
[2021-06-27] MEDS: HYDROcodone/APAP 10-325MG 1 EACH TAB PO PRN ×3 (02:54→20:24)
[2021-06-27] MEDS: IPRATROPIUM-ALBUTEROL 3 ML NEB INHALATION SCH ×4 (08:14→19:56)
[2021-06-27] MEDS: BUDESONIDE 0.5 MG/2 ML NEBU INHALATION SCH ×2 (08:14→19:59)
[2021-06-27] MEDS: SYMBICORT 160-4.5 MCG INHALER INHALATION SCH ×2 (08:15→19:55)
[2021-06-27] MEDS: TAMSULOSIN 0.4 MG CAP.ER.24H PO SCH (08:21)
[2021-06-27] MEDS: APIXABAN 2.5 MG TABLET PO SCH ×2 (08:21→21:06)
[2021-06-27] MEDS: MIDODRINE 5 MG TAB PO SCH ×3 (08:21→21:06)
[2021-06-27] MEDS: LEVOTHYROXINE 25 MCG TAB PO SCH (08:21)
[2021-06-27] MEDS: SODIUM CHLORIDE 0.9% 1,000 ML IV SCH (08:23)
[2021-06-27] MEDS: INSULIN ASPART (NovoLOG) 100 UNIT/ML VIAL SQ SCH ×4 (08:30→23:08)
--- NOTE | 2021-06-27 10:24 | P.PN ---
Subjective Progress Note Date: 06/27/21 Principal diagnosis: This is 65-year-old male seen in consultation because of acute kidney injury and chronic kidney disease. He was admitted with shortness of breath. The shortn ess of breath is deemed to be from COPD exacerbation as well as pneumonia. On admission he was given IV fluids. Admission creatinine was 2.47 and was 2.5 as of 06/25/2021. Since admission vital signs are stable blood pressure in the 110 to 120s systolic afebrile heart rate in the 60-70. This morning he complains of nausea vomiting after breakfast. Yesterday he didn't have any such complaints. 24-hour intake is 3180 output is 1900 mL Is known with coronary artery disease, pacemaker, heart catheterization atrial fibrillation heart failure COPD diabetes DVT and had coded in August 2020 since which time he has been having shortness of breath more frequently and more persistently. Objective - Vital Signs Vital signs: Vital Signs Temp 97.6 F 06/27/21 04:53 Pulse 70 06/27/21 09:15 Resp 16 06/27/21 04:53 BP 129/78 06/27/21 09:15 Pulse Ox 98 06/27/21 04:53 Intake & Output 06/26/21 06/27/21 06/27/21 18:59 06:59 18:59 Intake Total 1980 1200 Output Total 700 1200 Balance 1280 0 Intake: Intake, IV Titration 1300 Amount Magnesium Sulfate-D5w Pmx 400 1 gm In Dextrose/Water 1 100ml.bag @ 100 mls/hr IVPB Q1H [facility] Rx#: [id number] Sodium Chloride 0.9% 1, 900 000 ml @ 75 mls/hr IV . [id number] [facility] Rx#:[id number] Oral 680 1200 Output: Urine 700 1200 Other: Voiding Method Toilet Urinal On examination is awake alert oriented A chin exam no JVP neck is supple no facial asymmetry Lungs are significant for bilateral coarse crackles fair air entry bilaterally but less than optimal. A chest x-ray on 06/24/2021 is remarkable for right lower lobe infiltrate Heart sounds unremarkable for any murmur rub gallop Abdomen soft nontender Extremity exam was no edema Neurologically awake alert oriented - Labs CBC & Chem 7: 06/25/21 05:45 06/25/21 05:45 Labs: Abnormal Lab Results - Last 24 Hours (Table) 06/26/21 Range/Units 12:24 POC Glucose (mg/dL) 120 H (75-99) mg/dL Assessment and Plan Assessment: Impression 1. Acute kidney injury likely from volume depletion secondary to diarrhea and torsemide he was on 40 mg the [facility]. Creatinine expected to improve with hydration. 2. Chest x-ray is suggestive of possible pneumonia right lower lobe infiltrate. 3. CK D STAGE III, secondary to nephrosclerosis with a creatinine of 1.4 dated 05/24/2021. 4. Hypomagnesemia secondary to diuretics, magnesium is 0.8. Was given 4 g of magnesium sulfate IV yesterday 5. Anemia hemoglobin is 9 on admission and came down to 7.9 with hydration. Rule out an deficiency 6. On admission mild hypo-natremia and hyperkalemia sodium 134 and potassium 5.3 with a bicarb of 32 secondary to diuretics, improved with IV fluids Recommendation 1. Check labs today to follow-up the acute kidney injury as well as the hypomagnesemia 2. Continue lactated Ringer's 75 mL an hour
[2021-06-27 11:05] LABS: African American GFR (CKD) 37.4 (60.0-200.0); BUN/Creat Ratio 21.71 Ratio (12.00-20.00); Blood Urea Nitrogen 45.6 mg/dL (9.0-27.0); Calcium 9.6 mg/dL (8.7-10.3); Carbon Dioxide 26.3 mmol/L (20.0-27.5); Chloride 100 mmol/L (96-109); Glucose 123 mg/dL (70-110); Non-African American GFR(CKD) 32.3 (60.0-200.0); Potassium 5.3 mmol/L (3.5-5.5); Sodium 137 mmol/L (135-145)
[2021-06-27] MEDS: LACTATED RINGERS 1,000 ML IV SCH (11:35)
[2021-06-27] MEDS: allopurinoL 100 MG TAB PO SCH (11:41)
--- NOTE | 2021-06-27 14:11 | P.PN ---
Subjective Progress Note Date: 06/27/21 Principal diagnosis: Acute on chronic kidney disease; possibly related to overdiuresis Electrolyte imbalance; hypokalemia/hypomagnesemia 65-year-old male with an extensive PMH including COPD, chronic tobacco respiratory failure on 3 L of the cannula oxygen chronic kidney disease, systolic CHF, type II DM, hypothyroidism, hypertension, hyperlipidemia, A. fib on Eliquis, who was sent in from [facility] for shortness of breath. The patient was admitted to the hospital on 05/17/2021 for hypoxic respiratory failure secondary to COPD and pneumonia from where he was discharged to [facility]. Patient reports that since this diagnosis of COVID in 08/2020 that he has had persistent shortness of breath. He notes that it is at his baseline at the time of evaluation. He reports a chronic cough with white phlegm which is unchanged. He denied chest discomfort, nausea, vomiting, abdominal pain, diarrhea, dizziness. Reports using 3-4 L of nasal cannula oxygen continuously which has not changed. In the emergency room, laboratory evaluation was remarkable for magnesium of 0.8, BUN 63, creatinine 2.47 (up from 1.4), and potassium 5.3. EKG reveals sinus rhythm with first-degree AV block at 70 bpm with right bundle branch block. Chest x-ray revealed right greater than left bibasilar acute infiltrates along with pleural effusions concerning for CHF. Patient has been placed on IV fluids in form of normal saline; nephrology is consulted and recommending to switch to lactated Ringer; plan is to continue to monitor renal function and electrolytes closely 06/27/2021 Patient is seen and evaluated in room at bedside; complains of persistent nausea with 2 episodes of vomiting since morning Vital signs are reviewed, temperature 97.9, pulse 60, respiration 19 and blood pressure 130/61 Lab review shows sodium 137, potassium 5.3, BUN/creatinine of 45/2.1 which is improved from 55/2.5 yesterday; patient is currently on IV fluids in form of lactated Ringer Chest x-ray reveals bibasilar acute infiltrate with small bilateral pleural effusions; patient denies any any cough or sputum production; we will start empirically on IV antibiotics and monitor CBC, CRP and pro-calcitonin; further recommendations pending test results Objective - Vital Signs Vital signs: Vital Signs Temp 97.6 F 06/27/21 04:53 Pulse 70 06/27/21 09:15 Resp 16 06/27/21 04:53 BP 129/78 06/27/21 09:15 Pulse Ox 98 06/27/21 04:53 Intake & Output 06/26/21 06/27/21 06/27/21 18:59 06:59 18:59 Intake Total 1980 1200 Output Total 700 1200 Balance 1280 0 Intake: Intake, IV Titration 1300 Amount Magnesium Sulfate-D5w Pmx 400 1 gm In Dextrose/Water 1 100ml.bag @ 100 mls/hr IVPB Q1H [facility] Rx#: [id number] Sodium Chloride 0.9% 1, 900 000 ml @ 75 mls/hr IV . [id number] [facility] Rx#:[id number] Oral 680 1200 Output: Urine 700 1200 Other: Voiding Method Toilet Urinal - Exam - Constitutional General appearance: Present: average body habitus, cooperative, no acute distress - EENT Eyes: Present: anicteric sclerae, EOMI, PERRLA, normal appearance ENT: Present: hearing grossly normal, normal oropharynx Ears: bilateral: normal - Neck Neck: Present: normal ROM. Absent: lymphadenopathy, rigidity, thyromegaly Carotids: negative: bruit present Thyroid: bilateral: normal size, negative: enlarged, nodule - Respiratory Respiratory: bilateral: CTA, negative: rales, rhonchi, wheezing - Cardiovascular Rhythm: regular Heart sounds: normal: S1, S2 Abnormal Heart Sounds: Absent: systolic murmur, diastolic murmur - Gastrointestinal General gastrointestinal: Present: normal bowel sounds, soft. Absent: distended, organomegaly, tenderness - Genitourinary Genitourinary Comment(s): deferred - Integumentary Integumentary: Present: normal turgor. Absent: jaundiced, rash, ulcer - Neurologic Neurologic: Present: CNII-XII intact. Absent: focal deficits - Musculoskeletal Musculoskeletal: Present: gait normal, strength equal bilaterally - Psychiatric Psychiatric: Present: A&O x's 3, appropriate affect, intact judgment & insight - Labs CBC & Chem 7: 06/25/21 05:45 06/27/21 07:32 Labs: Abnormal Lab Results - Last 24 Hours (Table) 06/26/21 Range/Units 12:24 POC Glucose (mg/dL) 120 H (75-99) mg/dL Assessment and Plan Assessment: 1. Acute on chronic kidney disease; possibly related to overdiuresis - Diuretics have been placed on hold; we will continue to monitor strict KEMAL's, daily weights, renal function and electrolytes - Start patient on slow IV fluid hydration with normal saline at a rate of 75 mL an hour 2. Hyperkalemia; likely related to acute renal injury; resolved; we will continue to monitor electrolytes closely 3. COPD; not in exacerbation; continue with Pulmicort inhaler twice a day; DuoNeb nebulizer treatments 4 times a day and when necessary; Symbicort 160 MCG twice a day 4. Hypertension; Toprol-XL 50 mg daily 5. Hyperlipidemia; not on statin therapy at this time 6. Hypothyroidism; levothyroxin 25 MCG daily 7. Atrial fibrillation; rate controlled on metoprolol 50 mg by mouth daily at bedtime; Eliquis 2.5 mg twice a day for anticoagulation 8. Diabetes mellitus type 2; remains on Accu-Cheks before meals and at bedtime with insulin sliding scale DVT prophylaxis; SCDs/Eliquis CODE STATUS; full code
[2021-06-27] MEDS: PANTOPRAZOLE 40 MG/10 ML VIAL IVP SCH (14:33)
[2021-06-27] MEDS: diphenhydrAMINE 25 MG CAP PO PRN (16:04)
[2021-06-27] MEDS: AZITHROMYCIN 500 MG in SODIUM CHLORIDE 0.9% 250 ML IVPB SCH (16:05)
[2021-06-27] MEDS: METOPROLOL SUCCINATE (ER) 50 MG TAB.ER.24H PO SCH (21:06)
[2021-06-27 23:28] LABS: ALT <5 U/L (10-49); AST 11 U/L (14-35); Albumin 2.8 g/dL (3.8-4.9); Albumin/Globulin Ratio 0.78 (1.60-3.17); Alkaline Phosphatase 62 U/L (41-126); Globulin 3.6 g/dL (1.6-3.3); Magnesium 2.3 mg/dL (1.5-2.4); Total Bilirubin <0.15 mg/dL (0.30-1.20); Total Protein 6.4 g/dL (6.2-8.2)
[2021-06-28] MEDS: diphenhydrAMINE 25 MG CAP PO PRN ×3 (01:19→21:19)
[2021-06-28] MEDS: HYDROcodone/APAP 10-325MG 1 EACH TAB PO PRN ×3 (04:31→21:19)
[2021-06-28] MEDS: LACTATED RINGERS 1,000 ML IV SCH ×2 (04:33→13:47)
[2021-06-28 06:06] LABS: African American GFR (CKD) 33 (>60 ml/min/1.73 sqM); Anion Gap 0 mmol/L; Blood Urea Nitrogen 50 mg/dL (9-20); C Reactive Protein 2.6 mg/dL (<1.0); Calcium 9.6 mg/dL (8.4-10.2); Carbon Dioxide 30 mmol/L (22-30); Chloride 104 mmol/L (98-107); Glucose 123 mg/dL (74-99); Magnesium 1.9 mg/dL (1.6-2.3); Non-African American GFR(CKD) 29 (>60 ml/min/1.73 sqM); Potassium 5.4 mmol/L (3.5-5.1); Sodium 134 mmol/L (137-145)
[2021-06-28] MEDS: PANTOPRAZOLE 40 MG/10 ML VIAL IVP SCH (08:12)
[2021-06-28] MEDS: LEVOTHYROXINE 25 MCG TAB PO SCH (08:12)
[2021-06-28] MEDS: APIXABAN 2.5 MG TABLET PO SCH ×2 (08:13→21:14)
[2021-06-28] MEDS: INSULIN ASPART (NovoLOG) 100 UNIT/ML VIAL SQ SCH ×4 (08:14→21:14)
[2021-06-28] MEDS: MIDODRINE 5 MG TAB PO SCH ×3 (08:23→21:14)
[2021-06-28] MEDS: IPRATROPIUM-ALBUTEROL 3 ML NEB INHALATION SCH ×4 (09:06→19:19)
[2021-06-28] MEDS: BUDESONIDE 0.5 MG/2 ML NEBU INHALATION SCH ×2 (09:07→19:19)
[2021-06-28] MEDS: SYMBICORT 160-4.5 MCG INHALER INHALATION SCH ×2 (09:07→19:19)
[2021-06-28 10:18] LABS: Basophils # (A) 0.03 X 10*3/uL (0.00-0.10); Basophils % (A) 0.4 %; Eosinophils # (A) 0.49 X 10*3/uL (0.04-0.35); Eosinophils % (A) 5.8 %; HCT 25.2 % (39.6-50.0); HGB 7.1 g/dL (13.0-17.0); Immature Grans, Automated 0.5 %; Lymphocytes # (A) 0.85 X 10*3/uL (0.90-5.00); MCH 28.6 pg (27.0-32.0); MCHC 28.2 g/dL (32.0-37.0); MCV 101.6 fL (80.0-97.0); Mean Platelet Volume 10.9 fL (9.5-12.2); Monocytes # (A) 0.75 X 10*3/uL (0.20-1.00); Monocytes % (A) 8.8 %; NRBC Per 100 WBC 0 /100 WBCS (0.0-0.0); Neutrophils # (A) 6.33 X 10*3/uL (1.80-7.70); Neutrophils % (A) 74.5 %; Platelet Count 245 X 10*3/uL (140-440); RBC 2.48 X 10*6/uL (4.40-5.60); RDW 15.5 % (11.5-14.5); WBC 8.49 X 10*3/uL (4.50-10.00)
--- NOTE | 2021-06-28 12:34 | XR ---
EXAMINATION TYPE: XR wrist complete LT DATE OF EXAM: 06/28/2021 COMPARISON: NONE HISTORY: 05/17/2021 TECHNIQUE: 3 views submitted. FINDINGS: There remains a impacted displaced intra-articular fracture distal radius with increased angulation a nd deformity relative to the original exam. Previous ulnar styloid fracture also seen. There is sublu xation of the carpal bones and angulation distal fracture fragment of the radius. Arthropathy of the radiocarpal joint noted. Remaining osseous structures intact. Additionally appears to be deformity ne ar the waist of the scaphoid suspicious for a fracture. IMPRESSION: 1. Increasing displacement and angulation of a comminuted intra-articular fracture of the distal radi us relative to the prior exam. There is now marked deformity. 2. Findings suspicious for scaphoid fracture. 3. Remote ulnar styloid fracture.
[2021-06-28] MEDS: TAMSULOSIN 0.4 MG CAP.ER.24H PO SCH (13:45)
[2021-06-28] MEDS: allopurinoL 100 MG TAB PO SCH (13:45)
--- NOTE | 2021-06-28 13:58 | P.PN ---
Subjective Patient is seen for follow-up for acute kidney injury on top of chronic kidney disease. Baseline creatinine around 1.4-1.5 mg/dL. Patient was admitted with shortness of breath. Currently receiving treatment for COPD exacerbation and pneumonia. Patient is maintained on IV fluids. Serum creatinine had decreased to 2.1 from 2.5. Today to his about 2.3. Patient has been voiding. He states that he feels he is not producing enough urine. Objective - Vital Signs Vital signs: Vital Signs Temp 98.1 F 06/28/21 04:54 Pulse 79 06/28/21 12:03 Resp 18 06/28/21 04:54 BP 122/69 06/28/21 04:54 Pulse Ox 96 06/28/21 04:54 Intake & Output 06/27/21 06/28/21 06/28/21 18:59 06:59 18:59 Intake Total 1190 Output Total 800 200 Balance 390 -200 Intake: Intake, IV Titration 950 Amount Azithromycin 500 mg In 250 Sodium Chloride 0.9% 250 ml @ 250 mls/hr IVPB DAILY@1500 [facility] Rx#: [id number] Lactated Ringers 1,000 ml 600 @ 75 mls/hr IV .[id number] [facility] Rx#:[id number] cefTRIAXone 1 gm In 100 Sodium Chloride 0.9% 50 ml @ 100 mls/hr IVPB Q24HR [facility] Rx#:[id number] Oral 240 Output: Urine 800 200 Other: Voiding Method Toilet Urinal Urinal Urinal # Voids 2 - Exam And is awake comfortable he is not in any acute distress. Boyd examination of the heart S1 and S2 Examination lungs bilateral breath sounds are heard decreased breath sounds at the bases Abdomen is soft nontender Examination of lower extremities shows no significant edema. Line left upper extremity is currently wrapped. - Labs CBC & Chem 7: 06/28/21 05:29 06/28/21 05:29 Labs: Abnormal Lab Results - Last 24 Hours (Table) 06/27/21 06/28/21 06/28/21 Range/Units 07:32 05:29 05:29 RBC (4.40-5.60) X 10*6/uL Hgb (13.0-17.0) g/dL Hct (39.6-50.0) % MCV (80.0-97.0) fL MCHC (32.0-37.0) g/dL RDW (11.5-14.5) % Lymphocytes # (0.90-5.00) X 10*3/uL Eosinophils # (0.04-0.35) X 10*3/uL Sodium 134 L (137-145) mmol/L Potassium 5.4 H (3.5-5.1) mmol/L BUN 50 H (9-20) mg/dL Creatinine 2.33 H (0.66-1.25) mg/dL Glucose 123 H (74-99) mg/dL Total Bilirubin <0.15 L (0.30-1.20) mg/dL AST 11 L (14-35) U/L ALT <5 L (10-49) U/L C-Reactive Protein 2.6 H (<1.0) mg/dL Albumin 2.8 L (3.8-4.9) g/dL Globulin 3.6 H (1.6-3.3) g/dL Albumin/Globulin Ratio 0.78 L (1.60-3.17) g/dL Procalcitonin 0.30 H (0.02-0.09) ng/mL 06/28/21 Range/Units 05:29 RBC 2.48 L (4.40-5.60) X 10*6/uL Hgb 7.1 L (13.0-17.0) g/dL Hct 25.2 L (39.6-50.0) % MCV 101.6 H (80.0-97.0) fL MCHC 28.2 L (32.0-37.0) g/dL RDW 15.5 H (11.5-14.5) % Lymphocytes # 0.85 L (0.90-5.00) X 10*3/uL Eosinophils # 0.49 H (0.04-0.35) X 10*3/uL Sodium (137-145) mmol/L Potassium (3.5-5.1) mmol/L BUN (9-20) mg/dL Creatinine (0.66-1.25) mg/dL Glucose (74-99) mg/dL Total Bilirubin (0.30-1.20) mg/dL AST (14-35) U/L ALT (10-49) U/L C-Reactive Protein (<1.0) mg/dL Albumin (3.8-4.9) g/dL Globulin (1.6-3.3) g/dL Albumin/Globulin Ratio (1.60-3.17) g/dL Procalcitonin (0.02-0.09) ng/mL Assessment and Plan Assessment: 1. Acute kidney injury possibly from volume depletion associated with diarrhea and diuretics. Currently maintained on IV fluids. Serum creatinine had improved but slightly higher today. Check post void residual residual to rule out urine retention. 2. CK D stage III secondary to nephrosclerosis with creatinine baseline about 1.4 on 05/24/2021 3. Anemia, rule out iron deficiency, no active bleeding noted 4. Recent hospitalization for shortness of breath for COPD exacerbation and CHF exacerbation Plan: Check post void residual. Encourage increased oral intake. Increase IV fluids. Repeat chest x-ray [place] [facility]
[2021-06-28] MEDS: AZITHROMYCIN 500 MG in SODIUM CHLORIDE 0.9% 250 ML IVPB SCH (14:50)
[2021-06-28] MEDS: METOPROLOL SUCCINATE (ER) 50 MG TAB.ER.24H PO SCH (21:14)
[2021-06-29] MEDS: LACTATED RINGERS 1,000 ML IV SCH (03:21)
[2021-06-29] MEDS: IPRATROPIUM-ALBUTEROL 3 ML NEB INHALATION SCH ×4 (07:32→19:27)
[2021-06-29] MEDS: BUDESONIDE 0.5 MG/2 ML NEBU INHALATION SCH ×2 (07:32→19:27)
--- NOTE | 2021-06-29 08:42 | P.PN ---
Subjective Progress Note Date: 06/28/21 Acute on chronic kidney disease; possibly related to overdiuresis Electrolyte imbalance; hypokalemia/hypomagnesemia 65-year-old male with an extensive PMH including COPD, chronic tobacco respiratory failure on 3 L of the cannula oxygen chronic kidney disease, systolic CHF, type II DM, hypothyroidism, hypertension, hyperlipidemia, A. fib on Eliquis, who was sent in from [facility] for shortness of breath. The patient was admitted to the hospital on 05/17/2021 for hypoxic respiratory failure secondary to COPD and pneumonia from where he was discharged to [facility]. Patient reports that since this diagnosis of COVID in 08/2020 that he has had persistent shortness of breath. He notes that it is at his baseline at the time of evaluation. He reports a chronic cough with white phlegm which is unchanged. He denied chest discomfort, nausea, vomiting, abdominal pain, diarrhea, dizziness. Reports using 3-4 L of nasal cannula oxygen continuously which has not changed. In the emergency room, laboratory evaluation was remarkable for magnesium of 0.8, BUN 63, creatinine 2.47 (up from 1.4), and potassium 5.3. EKG reveals sinus rhythm with first-degree AV block at 70 bpm with right bundle branch block. Chest x-ray revealed right greater than left bibasilar acute infiltrates along with pleural effusions concerning for CHF. Patient has been placed on IV fluids in form of normal saline; nephrology is consulted and recommending to switch to lactated Ringer; plan is to continue to monitor renal function and electrolytes closely 06/27/2021 Patient is seen and evaluated in room at bedside; complains of persistent nausea with 2 episodes of vomiting since morning Vital signs are reviewed, temperature 97.9, pulse 60, respiration 19 and blood pressure 130/61 Lab review shows sodium 137, potassium 5.3, BUN/creatinine of 45/2.1 which is improved from 55/2.5 yesterday; patient is currently on IV fluids in form of lactated Ringer Chest x-ray reveals bibasilar acute infiltrate with small bilateral pleural effusions; patient denies any any cough or sputum production; we will start empirically on IV antibiotics and monitor CBC, CRP and pro-calcitonin; further recommendations pending test results 06/28/2021 Patient is seen and evaluated in follow-up currently being closely monitored. Patient is being closely monitored by nephrology along with orthopedics being consulted as patient has been seen in the past for his left wrist fracture which is currently splinted. Patient's kidney functions continue to be elevated and will continue with gentle IV hydration for now and hold diuretics. Will repeat labs and continue to monitor closely. Patient denies chest pain, worsening shortness of breath, or palpitations. Patient is afebrile. No reports of nausea or vomiting and patient is tolerating diet. Review of systems: Constitutional: No reports of fatigue, fever, or chills Cardiovascular: No reports of chest pain or palpitations Respiratory: No reports of worsening shortness of breath or cough GI: No reports of nausea, no reports of of vomiting : No reports of dysuria or retention Neurovascular: reports of generalized weakness, reports left wrist pain All medications have been reviewed Active Medications Hydrocodone Bitart/Acetaminophen (Hydrocodone/Apap 10-325mg 1 Each Tab) 1 each PO Q6HR PRN PRN Reason: Moderate Pain Last Admin: 06/28/21 10:39 Dose: 1 each Documented by: Albuterol/Ipratropium (Ipratropium-Albuterol 3 Ml Neb) 3 ml INHALATION RT-QID PRN PRN Reason: Shortness Of Breath Or Wheezing Last Admin: 06/24/21 23:16 Dose: 3 ml Documented by: Albuterol/Ipratropium (Ipratropium-Albuterol 3 Ml Neb) 3 ml INHALATION RT-QID [facility] Last Admin: 06/28/21 11:50 Dose: 3 ml Documented by: Allopurinol (Allopurinol 100 Mg Tab) 200 mg PO DAILY@1400 [facility] Last Admin: 06/28/21 13:45 Dose: 200 mg Documented by: Apixaban (Apixaban 2.5 Mg Tablet) 2.5 mg PO BID [facility]; Protocol Last Admin: 06/28/21 08:13 Dose: 2.5 mg Documented by: Budesonide (Budesonide 0.5 Mg/2 Ml Nebu) 0.5 mg INHALATION RT-BID [facility] Last Admin: 06/28/21 09:07 Dose: 0.5 mg Documented by: Budesonide/Formoterol Fumarate (Symbicort 160-4.5 Mcg Inhaler) 2 puff INHALATION RT-BID [facility] Last Admin: 06/28/21 09:07 Dose: Not Given Documented by: Dicyclomine HCl (Dicyclomine 20 Mg Tab) 20 mg PO Q8H PRN PRN Reason: IBS Last Admin: 06/24/21 23:36 Dose: 20 mg Documented by: Diphenhydramine HCl (Diphenhydramine 25 Mg Cap) 25 mg PO TID PRN PRN Reason: Itching Last Admin: 06/28/21 09:10 Dose: 25 mg Documented by: Lactated Ringer's (Lactated Ringers) 1,000 mls @ 50 mls/hr IV .Q20H [facility] Last Admin: 06/28/21 13:47 Dose: 75 mls/hr Documented by: Ceftriaxone Sodium 1 gm/ (Sodium Chloride) 50 mls @ 100 mls/hr IVPB Q24HR [facility] Last Admin: 06/28/21 08:18 Dose: 100 mls/hr Documented by: Azithromycin 500 mg/ Sodium (Chloride) 250 mls @ 250 mls/hr IVPB DAILY@1500 [facility] Last Admin: 06/28/21 14:50 Dose: 250 mls/hr Documented by: Insulin Aspart (Insulin Aspart (Novolog) 100 Unit/Ml Vial) 0 unit SQ ACHS [facility]; Protocol Last Admin: 06/28/21 12:27 Dose: Not Given Documented by: Levothyroxine Sodium (Levothyroxine 25 Mcg Tab) 25 mcg PO DAILY@0700 [facility] Last Admin: 06/28/21 08:12 Dose: 25 mcg Documented by: Loperamide HCl (Loperamide 2 Mg Cap) 2 mg PO Q6H PRN PRN Reason: Diarrhea Last Admin: 06/24/21 23:36 Dose: 2 mg Documented by: Metoprolol Succinate (Metoprolol Succinate (Er) 50 Mg Tab.Er.24h) 50 mg PO HS@2000 [facility] Last Admin: 06/27/21 21:06 Dose: 50 mg Documented by: Midodrine (Midodrine 5 Mg Tab) 10 mg PO TID [facility] Last Admin: 06/28/21 08:23 Dose: 10 mg Documented by: Naloxone HCl (Naloxone 0.4 Mg/Ml 1 Ml Vial) 0.2 mg IV Q2M PRN PRN Reason: Opioid Reversal Ondansetron HCl (Ondansetron 4 Mg Tab) 4 mg PO Q8H PRN PRN Reason: Nausea And Vomiting Last Admin: 06/27/21 11:41 Dose: 4 mg Documented by: Pantoprazole Sodium (Pantoprazole 40 Mg/10 Ml Vial) 40 mg IVP DAILY [facility] Last Admin: 06/28/21 08:12 Dose: 40 mg Documented by: Tamsulosin HCl (Tamsulosin 0.4 Mg Cap.Er.24h) 0.4 mg PO DAILY@1400 [facility] Last Admin: 06/28/21 13:45 Dose: 0.4 mg Documented by: PHYSICAL EXAMINATION: GENERAL: The patient is alert and oriented x3, Well developed, well nourished. Ill-appearing, appears older than stated age HEENT: Pupils are round and equally reacting to light. EOMI. does have scleral i cterus. No conjunctival pallor. Normocephalic, atraumatic. No pharyngeal erythema. No thyromegaly. CARDIOVASCULAR: S1 and S2 muffled PULMONARY: diminished breath sounds bilaterally with some scattered rhonchi and crackles noted. ABDOMEN: soft. Nontender on exam. obese. non-distended, normoactive bowel sounds. No palpable organomegaly. MUSCULOSKELETAL: No joint swelling or deformity. EXTREMITIES: No cyanosis, clubbing, or pedal edema. Left wrist splint noted Dany wrapping NEUROLOGICAL: Gross neurological examination did not reveal any focal deficits. Diffuse weakness SKIN: No rashes. Assessment: Acute on chronic kidney disease possibly secondary to diuretic use Hyperkalemia most likely related to acute renal injury COPD, not in acute exacerbation Hypertension Hyperlipidemia hypothyroidism atrial fibrillation, currently rate controlled Diabetes mellitus type 2 GI prophylaxis DVT prophylaxis Full code Plan: Recommend to continue with current medications and management. Diuretics on hold and nephrology following patient's kidney functions continue to be elevated with creatinine at 2.33. Patient continues to have left wrist pain and will consult orthopedics for further evaluation. Wrist x-ray is ordered. Patient continues on gentle IV hydration of lactated Ringer's and will repeat labs in continue to monitor closely. Patient to continue with breathing inhalational treatments along with Zithromax and ceftriaxone as well. Will await orthopedics of report and appreciate input and recommendations. PT/OT to evaluate the patient as the patient continues with weakness. Recommend continued Accu-Cheks before meals and at bedtime and close monitoring. Due to multiple complex medical issues, prognosis is guarded. The impression and plan of care has been dictated by Rochelle Salinas, nurse practitioner as directed. MD Porter I have performed a history and examination and MDM of this patient, discussed the same with the dictator, and agree with the dictator's assessment and plan as written ,documented as a scribe. Based on total visit time, I have performed more than 50% of the visit. Any additional findings or plans will be noted. Objective - Vital Signs Vital signs: Vital Signs Temp 98.1 F 06/28/21 04:54 Pulse 77 06/28/21 09:22 Resp 18 06/28/21 04:54 BP 122/69 06/28/21 04:54 Pulse Ox 96 06/28/21 04:54 Intake & Output 06/27/21 06/28/21 06/28/21 18:59 06:59 18:59 Intake Total 1190 Output Total 800 200 Balance 390 -200 Intake: Intake, IV Titration 950 Amount Azithromycin 500 mg In 250 Sodium Chloride 0.9% 250 ml @ 250 mls/hr IVPB DAILY@1500 [facility] Rx#: [id number] Lactated Ringers 1,000 ml 600 @ 75 mls/hr IV .[id number] [facility] Rx#:[id number] cefTRIAXone 1 gm In 100 Sodium Chloride 0.9% 50 ml @ 100 mls/hr IVPB Q24HR [facility] Rx#:[id number] Oral 240 Output: Urine 800 200 Other: Voiding Method Toilet Urinal Urinal # Voids 2 - Labs CBC & Chem 7: 06/28/21 05:29 06/28/21 05:29 Labs: Abnormal Lab Results - Last 24 Hours (Table) 06/27/21 06/28/21 Range/Units 07:32 05:29 Sodium 134 L (137-145) mmol/L Potassium 5.4 H (3.5-5.1) mmol/L BUN 45.6 H 50 H (9.0-27.0) mg/dL Creatinine 2.1 H 2.33 H (0.6-1.5) mg/dL Est GFR (CKD-EPI)AfAm 37.4 L (60.0-200.0) Est GFR (CKD-EPI)NonAf 32.3 L (60.0-200.0) BUN/Creatinine Ratio 21.71 H (12.00-20.00) Ratio Glucose 123 H 123 H (70-110) mg/dL Total Bilirubin <0.15 L (0.30-1.20) mg/dL AST 11 L (14-35) U/L ALT <5 L (10-49) U/L C-Reactive Protein 2.6 H (<1.0) mg/dL Albumin 2.8 L (3.8-4.9) g/dL Globulin 3.6 H (1.6-3.3) g/dL Albumin/Globulin Ratio 0.78 L (1.60-3.17) g/dL
[2021-06-29] MEDS: INSULIN ASPART (NovoLOG) 100 UNIT/ML VIAL SQ SCH ×4 (09:07→19:48)
[2021-06-29] MEDS: LEVOTHYROXINE 25 MCG TAB PO SCH (09:07)
[2021-06-29] MEDS: diphenhydrAMINE 25 MG CAP PO PRN ×2 (09:09→19:44)
[2021-06-29] MEDS: HYDROcodone/APAP 10-325MG 1 EACH TAB PO PRN ×2 (09:09→19:39)
[2021-06-29 11:01] LABS: Basophils % (A) 0 %; Eosinophils # (A) 0.5 k/uL (0-0.7); Eosinophils % (A) 5 %; HCT 25.4 % (39.0-53.0); HGB 7.7 gm/dL (13.0-17.5); Hypochromasia Marked; Lymphocytes # (A) 1.3 k/uL (1.0-4.8); Lymphocytes % (A) 13 %; MCH 30.5 pg (25.0-35.0); MCHC 30.3 g/dL (31.0-37.0); MCV 100.6 fL (80.0-100.0); Macrocytosis Slight; Monocytes # (A) 0.8 k/uL (0-1.0); Monocytes % (A) 8 %; Neutrophils # (A) 7.9 k/uL (1.3-7.7); Neutrophils % (A) 74 %; Platelet Count 236 k/uL (150-450); RBC 2.53 m/uL (4.30-5.90); RDW 15.6 % (11.5-15.5); WBC 10.6 k/uL (3.8-10.6)
[2021-06-29 11:15] LABS: African American GFR (CKD) 28 (>60 ml/min/1.73 sqM); Anion Gap 5 mmol/L; Blood Urea Nitrogen 50 mg/dL (9-20); Calcium 10.3 mg/dL (8.4-10.2); Carbon Dioxide 25 mmol/L (22-30); Chloride 104 mmol/L (98-107); Glucose 127 mg/dL (74-99); Non-African American GFR(CKD) 24 (>60 ml/min/1.73 sqM); Potassium 5.5 mmol/L (3.5-5.1); Sodium 134 mmol/L (137-145)
[2021-06-29] MEDS: MIDODRINE 5 MG TAB PO SCH ×3 (11:24→22:10)
[2021-06-29] MEDS: APIXABAN 2.5 MG TABLET PO SCH ×2 (11:25→19:45)
[2021-06-29] MEDS: PANTOPRAZOLE 40 MG/10 ML VIAL IVP SCH (11:28)
--- NOTE | 2021-06-29 12:31 | XR ---
EXAMINATION TYPE: XR chest 1V portable DATE OF EXAM: 06/29/2021 COMPARISON: X-ray dated 06/24/2021 HISTORY: Shortness of breath TECHNIQUE: Single frontal view of the chest is obtained. FINDINGS: Apparent slight progression of the bilateral pleural effusions, more prominent compared to the previo us x-ray. Bilateral lower lobe subsegmental pulmonary atelectasis, also slightly progressed compared to the previous x-ray. Congested pulmonary vasculature which may suggest pulmonary edema. Associated infection cannot be excluded, please correlate clinically. Grossly unremarkable remainder of the lungs. Unchanged cardiomediastinal silhouette, aortic atherosclerotic calcifications and left upper chest wall dual-lead pacemaker. IMPRESSION: Mild depression of the bilateral pleural effusions and signs of pulmonary edema which may suggest und erlying congestive heart failure, associated infection cannot be excluded, please correlate clinicall y.
--- NOTE | 2021-06-29 13:49 | P.CNOR ---
History of Present Illness - HPI Consult date: 06/29/21 History of present illness: This patient is a 65- year old male with a past medical history of COPD on 3 L of oxygen, atrial fibrillation on Eliquis, chronic kidney disease, CHF, diabetes, hypothyroidism, hypertension, hyperlipidemia, who presented to the emergency department on 06/24/21 from [facility] with complaints of shortness of breath. Evaluation in the emergency department revealed acute kidney injury. Patient was admitted under the care of internal medicine with consults placed to nephrology. Orthopedics is consulted for evaluation of his left wrist. Patient was recently admitted on 05/17/21 for COPD and pneumonia. Orthopedics was consulted during admission due left wrist fracture. Patient was splinted in a sugar tong splint, which was later transitioned to a short arm volar splint due to patient's request. Patient was discharged to [facility] with instructions to follow-up in our office in one week for repeat x-rays and cast placement. Patient did not follow-up in our office. Patient states he was unable to follow-up in our office due to this COPD and other related issues. Patient is seen and examined bedside this morning. He states he continues to experience pain and discomfort in the wrist. He is currently in a short arm splint, which he states is the same splint that was placed during his last hospital admission. He denies new falls or injuries. He has no additional complaints. Past Medical History Past Medical History: Atrial Fibrillation, Heart Failure, COPD, Diabetes Mellitus, Deep Vein Thrombosis (DVT), GERD/Reflux, Hyperlipidemia, Hypertension, Pneumonia, Renal Disease, Respiratory Disorder, Skin Disorder, Sleep Apnea/CPAP/BIPAP, Vascular Disorder Additional Past Medical History / Comment(s): Pt recently admitted to [facility] on with chf/acute on chronic renal disease, possible pneumonia. Pt tested covic+ on 08/20/20 at [facility] ER. Other hx: Chronic hypoxic respiratory failure and the patient OXYGEN dependent 5 L, previous history of left-sided pneumothorax requiring a Thoravent insertion, IDDM type II, paroxysmal AFIB, SSS with pacer, nonischemic cardiomyopathy, past alcoholism/DTs, diverticulosis, obstuctive sleep apnea but no Cpap since wt loss, sinusitis, neuropathy bilateral feet, elevated LFTs, BPH, CKD stag III, DVT R leg, hypomagnesemia, hypoalbuminemia, anemia, protein calorie malnutrition, PVD, current sores bilateral feet. History of Any Multi-Drug Resistant Organisms: None Reported Past Surgical History: Appendectomy, Cholecystectomy, Heart Catheterization, Pacemaker Additional Past Surgical History / Comment(s): Partial liver removed d/t adhesions, colonoscopies, bilateral eyes blepharoplasties, pacer Past Anesthesia/Blood Transfusion Reactions: Postoperative Nausea & Vomiting (PONV) Additional Past Anesthesia/Blood Transfusion Reaction / Comm: Pt states he has had PONV with gas only. Type of Cardiac Device: Permanent Pacemaker Device Placement Date:: 2017 Past Psychological History: Anxiety, Depression, Panic Disorder Smoking Status: Former smoker Past Alcohol Use History: None Reported Past Drug Use History: None Reported - Past Family History Mother Family Medical History: Thyroid Disorder Additional Family Medical History / Comment(s): . Father Additional Family Medical History / Comment(s): Father of diverticulitis,peritonitis at the age of 35yrs. Medications and Allergies Home Medications Medication Instructions Recorded Confirmed Type Tamsulosin [Flomax] 0.4 mg PO DAILY@1400 06/23/16 06/24/21 History ondansetron HCL [Zofran] 4 mg PO Q8H PRN 09/30/18 06/24/21 History Apixaban [Eliquis] 2.5 mg PO BID 01/11/19 06/24/21 History Insulin Glargine,Hum.rec.anlog 25 unit SQ HS@199908/02/20 06/24/21 History [Lantus Solostar Pen] Levothyroxine Sodium [Synthroid] 25 mcg PO DAILY@0700 08/02/20 06/24/21 History Ipratropium/Albuter 20-100Mcg 1 puff INHALATION RT-QID 05/17/21 06/24/21 History [Combivent Respimat 20-100Mcg Inhaler] Lidocaine 5% Patch [Lidoderm 5% 1 patch TOPICAL DAILY@1600 PRN 05/17/21 06/24/21 History Patch] Midodrine HCl [ProAmatine] 10 mg PO TID 05/17/21 06/24/21 History allopurinoL [Zyloprim] 200 mg PO DAILY@1400 05/17/21 06/24/21 History Ascorbic Acid [Vitamin C] 1,000 mg PO BID@0800,1400 06/24/21 06/24/21 History Budesonide [Pulmicort] 0.5 mg INHALATION RT-BID 06/24/21 06/24/21 History Cholecalciferol [Vitamin D3 (25 25 mcg PO DAILY@0800 06/24/21 06/24/21 History Mcg = 1000 Iu)] Dicyclomine [Bentyl] 20 mg PO Q8H PRN 06/24/21 06/24/21 History Ferrous Sulfate [Feosol] 325 mg PO DAILY@0800 06/24/21 06/24/21 History Fluticasone/Vilanterol [Breo 1 puff INHALATION RT-DAILY@0600 06/24/21 06/24/21 History Ellipta 200-25 Mcg Inhaler] HYDROcodone/APAP 5-325MG [[place] 1 tab PO Q8H PRN 06/24/21 06/24/21 History 5-325] HYDROcodone/APAP 5-325MG [[place] 1 tab PO Q8H PRN 06/24/21 06/24/21 History 5-325] INSULIN ASPART (NovoLOG) [NovoLOG See Protocol SQ ACHS 06/24/21 06/24/21 History (formulary)] Ipratropium-Albuterol Nebulize 3 ml INHALATION RT-Q4H PRN 06/24/21 06/24/21 History [Duoneb 0.5 mg-3 mg/3 ml Soln] Loperamide HCl [Loperamide] 2 mg PO Q6H PRN 06/24/21 06/24/21 History Metoprolol Succinate (ER) [Toprol 50 mg PO HS@199906/24/21 06/24/21 History XL] Omeprazole 20 mg PO HS@199906/24/21 06/24/21 History Torsemide [Demadex] 40 mg PO DAILY@0700 06/24/21 06/24/21 History Zinc Sulfate [Orazinc] 220 mg PO BID@0800,1400 06/24/21 06/24/21 History Allergies Allergy/AdvReac Type Severity Reaction Status Date / Time codeine Allergy Unknown Verified 06/24/21 18:27 Physical Examination On examination, patient is sitting up in bed in no apparent distress. He is alert and oriented 3. His head appears normocephalic/atraumatic. His richard thing appears nonlabored, nasal cannula is in place. A focused examination of the left wrist is conducted. On inspection of the left wrist, there is an old appearing short arm splint in place. The short arm splint is removed and reveals obvious deformity to the left wrist. There is mild swelling. There are no open wounds or lacerations, skin is intact. Range of motion is not tested of the left wrist at this time. There is diffuse pain to palpation of the left wrist. No pain with palpation of the elbow, forearm, hand, fingers. Patient is able to flex and extend the fingers. Motor and sens ory function is grossly intact of the left upper extremity. Radial pulse easily palpable. Fingers are warm and well perfused with brisk capillary refill distally. Results Left wrist x-ray 06/28/21: Subacute comminuted, intra-articular distal radius fracture with marked displaced compared to prior x-rays. Chronic ulnar styloid fracture. - Labs Labs: Abnormal Lab Results - Last 24 Hours (Table) 06/29/21 06/29/21 Range/Units 10:40 10:40 RBC 2.53 L (4.30-5.90) m/uL Hgb 7.7 L (13.0-17.5) gm/dL Hct 25.4 L (39.0-53.0) % MCV 100.6 H (80.0-100.0) fL MCHC 30.3 L (31.0-37.0) g/dL RDW 15.6 H (11.5-15.5) % Neutrophils # 7.9 H (1.3-7.7) k/uL Sodium 134 L (137-145) mmol/L Potassium 5.5 H (3.5-5.1) mmol/L BUN 50 H (9-20) mg/dL Creatinine 2.66 H (0.66-1.25) mg/dL Glucose 127 H (74-99) mg/dL Calcium 10.3 H (8.4-10.2) mg/dL H & H 06/24/21 06/25/21 06/28/21 Range/Units 16:00 05:45 05:29 Hgb 9.0 L 7.9 L 7.1 L (13.0-17.5) gm/dL Hct 29.0 L 27.2 L 25.2 L (39.0-53.0) % 06/29/21 Range/Units 10:40 Hgb 7.7 L (13.0-17.5) gm/dL Hct 25.4 L (39.0-53.0) % Result Diagrams: 06/29/21 10:40 06/29/21 10:40 Assessment and Plan Assessment: Comminuted, intra-articular left distal radius fracture with marked deformity, DOI 7 weeks ago Plan: - Patient was discussed with Dr. Guillen. Recommend follow-up with our hand surgeon Dr. Mckeon next week for further evaluation and treatment of patient's w rist fracture. No surgical intervention is planned during this hospital admission. This was discussed with the patient and verbalizes understanding. - We will order the patient a new wrist brace. He should keep this brace on at all times besides hygiene. It should be removed BID for skin checks. - Keep left wrist elevated for swelling and pain control. May move fingers and thumb as tolerated. - Recommend follow-up with Dr. Mckeon in the office next week.
[2021-06-29] MEDS ORDERED: SODIUM POLYSTYRENE SULFONATE 15 GM/60 ML BOTTLE PO STA (14:56)
[2021-06-29] MEDS ORDERED: FUROSEMIDE 10 MG/ML 4 ML VIAL IV STA (14:58)
--- NOTE | 2021-06-29 14:58 | P.PN ---
Subjective Progress Note Date: 06/29/21 Acute on chronic kidney disease; possibly related to overdiuresis Electrolyte imbalance; hypokalemia/hypomagnesemia 65-year-old male with an extensive PMH including COPD, chronic tobacco respiratory failure on 3 L of the cannula oxygen chronic kidney disease, systolic CHF, type II DM, hypothyroidism, hypertension, hyperlipidemia, A. fib on Eliquis, who was sent in from [facility] for shortness of breath. The patient was admitted to the hospital on 05/17/2021 for hypoxic respiratory failure secondary to COPD and pneumonia from where he was discharged to [facility]. Patient reports that since this diagnosis of COVID in 08/2020 that he has had persistent shortness of breath. He notes that it is at his baseline at the time of evaluation. He reports a chronic cough with white phlegm which is unchanged. He denied chest discomfort, nausea, vomiting, abdominal pain, diarrhea, dizziness. Reports using 3-4 L of nasal cannula oxygen continuously which has not changed. In the emergency room, laboratory evaluation was remarkable for magnesium of 0.8, BUN 63, creatinine 2.47 (up from 1.4), and potassium 5.3. EKG reveals sinus rhythm with first-degree AV block at 70 bpm with right bundle branch block. Chest x-ray revealed right greater than left bibasilar acute infiltrates along with pleural effusions concerning for CHF. Patient has been placed on IV fluids in form of normal saline; nephrology is consulted and recommending to switch to lactated Ringer; plan is to continue to monitor renal function and electrolytes closely 06/27/2021 Patient is seen and evaluated in room at bedside; complains of persistent nausea with 2 episodes of vomiting since morning Vital signs are reviewed, temperature 97.9, pulse 60, respiration 19 and blood pressure 130/61 Lab review shows sodium 137, potassium 5.3, BUN/creatinine of 45/2.1 which is improved from 55/2.5 yesterday; patient is currently on IV fluids in form of lactated Ringer Chest x-ray reveals bibasilar acute infiltrate with small bilateral pleural effusions; patient denies any any cough or sputum production; we will start empirically on IV antibiotics and monitor CBC, CRP and pro-calcitonin; further recommendations pending test results 06/28/2021 Patient is seen and evaluated in follow-up currently being closely monitored. Patient is being closely monitored by nephrology along with orthopedics being consulted as patient has been seen in the past for his left wrist fracture which is currently splinted. Patient's kidney functions continue to be elevated and will continue with gentle IV hydration for now and hold diuretics. Will repeat labs and continue to monitor closely. Patient denies chest pain, worsening shortness of breath, or palpitations. Patient is afebrile. No reports of nausea or vomiting and patient is tolerating diet. 06/29/2021 Patient is seen in follow-up this morning currently working with physical therapy and continues to be extremely weak and will be returning to rehab at [facility] once stable and discharged. Patient being closely followed by nephrology closely and currently maintained on LR at 50 mL per hour and kidney functions continue to worsen. Sodium is 134, potassium is 5.5, BUN is 50 and creatinine is 2.66 and diuretics are on hold. Hemoglobin is improved at 7.7 with no active bleeding noted. Orthopedics also evaluated the patient and ordering splint for the left wrist. Chest x-ray ordered and pending. Review of systems: Constitutional: No reports of fatigue, fever, or chills Cardiovascular: No reports of chest pain or palpitations Respiratory: No reports of worsening shortness of breath or cough continues to be short of breath GI: No reports of nausea, no reports of of vomiting : No reports of dysuria or retention Neurovascular: reports of generalized weakness, reports left wrist pain All medications have been reviewed Active Medications Hydrocodone Bitart/Acetaminophen (Hydrocodone/Apap 10-325mg 1 Each Tab) 1 each PO Q6HR PRN PRN Reason: Moderate Pain Last Admin: 06/29/21 09:09 Dose: 1 each Documented by: Albuterol/Ipratropium (Ipratropium-Albuterol 3 Ml Neb) 3 ml INHALATION RT-QID PRN PRN Reason: Shortness Of Breath Or Wheezing Last Admin: 06/24/21 23:16 Dose: 3 ml Documented by: Albuterol/Ipratropium (Ipratropium-Albuterol 3 Ml Neb) 3 ml INHALATION RT-QID [facility] Last Admin: 06/29/21 11:22 Dose: 3 ml Documented by: Allopurinol (Allopurinol 100 Mg Tab) 200 mg PO DAILY@1400 [facility] Last Admin: 06/28/21 13:45 Dose: 200 mg Documented by: Apixaban (Apixaban 2.5 Mg Tablet) 2.5 mg PO BID [facility]; Protocol Last Admin: 06/29/21 11:25 Dose: 2.5 mg Documented by: Azithromycin (Azithromycin 500 Mg Tab) 500 mg PO DAILY@1500 [facility] Budesonide (Budesonide 0.5 Mg/2 Ml Nebu) 0.5 mg INHALATION RT-BID [facility] Last Admin: 06/29/21 07:32 Dose: 0.5 mg Documented by: Dicyclomine HCl (Dicyclomine 20 Mg Tab) 20 mg PO Q8H PRN PRN Reason: IBS Last Admin: 06/24/21 23:36 Dose: 20 mg Documented by: Diphenhydramine HCl (Diphenhydramine 25 Mg Cap) 25 mg PO TID PRN PRN Reason: Itching Last Admin: 06/29/21 09:09 Dose: 25 mg Documented by: Lactated Ringer's (Lactated Ringers) 1,000 mls @ 50 mls/hr IV .Q20H [facility] Last Admin: 06/29/21 03:21 Dose: 50 mls/hr Documented by: Ceftriaxone Sodium 1 gm/ (Sodium Chloride) 50 mls @ 100 mls/hr IVPB Q24HR [facility] Last Admin: 06/29/21 11:27 Dose: 100 mls/hr Documented by: Azithromycin 500 mg/ Sodium (Chloride) 250 mls @ 250 mls/hr IVPB DAILY@1500 [facility] Stop: 06/29/21 16:00 Last Admin: 06/28/21 14:50 Dose: 250 mls/hr Documented by: Insulin Aspart (Insulin Aspart (Novolog) 100 Unit/Ml Vial) 0 unit SQ ACHS [facility]; Protocol Last Admin: 06/29/21 13:01 Dose: Not Given Documented by: Levothyroxine Sodium (Levothyroxine 25 Mcg Tab) 25 mcg PO DAILY@0700 [facility] Last Admin: 06/29/21 09:07 Dose: 25 mcg Documented by: Loperamide HCl (Loperamide 2 Mg Cap) 2 mg PO Q6H PRN PRN Reason: Diarrhea Last Admin: 06/24/21 23:36 Dose: 2 mg Documented by: Metoprolol Succinate (Metoprolol Succinate (Er) 50 Mg Tab.Er.24h) 50 mg PO HS@2000 [facility] Last Admin: 06/28/21 21:14 Dose: 50 mg Documented by: Midodrine (Midodrine 5 Mg Tab) 10 mg PO TID [facility] Last Admin: 06/29/21 11:24 Dose: 10 mg Documented by: Naloxone HCl (Naloxone 0.4 Mg/Ml 1 Ml Vial) 0.2 mg IV Q2M PRN PRN Reason: Opioid Reversal Ondansetron HCl (Ondansetron 4 Mg Tab) 4 mg PO Q8H PRN PRN Reason: Nausea And Vomiting Last Admin: 06/27/21 11:41 Dose: 4 mg Documented by: Pantoprazole Sodium (Pantoprazole 40 Mg/10 Ml Vial) 40 mg IVP DAILY [facility] Last Admin: 06/29/21 11:28 Dose: 40 mg Documented by: Tamsulosin HCl (Tamsulosin 0.4 Mg Cap.Er.24h) 0.4 mg PO DAILY@1400 [facility] Last Admin: 06/28/21 13:45 Dose: 0.4 mg Documented by: PHYSICAL EXAMINATION: GENERAL: The patient is alert and oriented x3, Well developed, well nourished. Ill-appearing, appears older than stated age HEENT: Pupils are round and equally reacting to light. EOMI. does have scleral icterus. No conjunctival pallor. Normocephalic, atraumatic. No pharyngeal erythema. No thyromegaly. CARDIOVASCULAR: S1 and S2 muffled PULMONARY: diminished breath sounds bilaterally with some scattered rhonchi and crackles noted. ABDOMEN: soft. Nontender on exam. obese. non-distended, normoactive bowel sounds. No palpable organomegaly. MUSCULOSKELETAL: No joint swelling or deformity. EXTREMITIES: No cyanosis, clubbing, or pedal edema. Left wrist splint noted Dany wrapping NEUROLOGICAL: Gross neurological examination did not reveal any focal deficits. Diffuse weakness SKIN: No rashes. Assessment: Acute on chronic kidney disease possibly secondary to diuretic use Hyperkalemia most likely related to acute renal injury COPD, acute exacerbation Hypertension Hyperlipidemia hypothyroidism atrial fibrillation, currently rate controlled Diabetes mellitus type 2 GI prophylaxis DVT prophylaxis Full code Plan: Recommend to continue with current medications and management. Diuretics on hold and nephrology following patient's kidney functions continue to be elevated with creatinine today at 2.66. Chest x-ray ordered which shows mild depression of the bilateral pleural effusions and signs of pulmonary edema which may suggest underlying congestive heart failure and associated infection cannot be excluded. Patient continues to have left wrist pain and orthopedics evaluated the patient and ordering a left wrist splint. Patient was continued on gentle IV hydration of lactated Ringer's and will discontinue and give a dose of Lasix and will repeat labs in continue to monitor closely. Patient to continue with breathing inhalational treatments along with Zithromax and ceftriaxone as well. PT/OT following and working with the patient as the patient continues with weakness. [facility] and discharged. Recommend continued Accu-Cheks before meals and at bedtime and close monitoring. Due to multiple complex medical issues, prognosis is guarded. The impression and plan of care has been dictated by Rochelle Salinas, nurse practitioner as directed. MD Porter I have performed a history and examination and MDM of this patient, discussed the same with the dictator, and agree with the dictator's assessment and plan as written ,documented as a scribe. Based on total visit time, I have performed more than 50% of the visit. Any additional findings or plans will be noted. Objective - Vital Signs Vital signs: Vital Signs Temp 98.8 F 06/29/21 08:02 Pulse 60 06/29/21 08:02 Resp 16 06/29/21 08:02 BP 115/50 06/29/21 08:02 Pulse Ox 96 06/29/21 08:02 Intake & Output 06/28/21 06/29/21 06/29/21 18:59 06:59 18:59 Intake Total 300 Output Total 568 650 Balance -268 -650 Intake: Intake, IV Titration 300 Amount Azithromycin 500 mg In 250 Sodium Chloride 0.9% 250 ml @ 250 mls/hr IVPB DAILY@1500 [facility] Rx#: [id number] cefTRIAXone 1 gm In 50 Sodium Chloride 0.9% 50 ml @ 100 mls/hr IVPB Q24HR [facility] Rx#:[id number] Output: Urine 500 650 Post Void Residual 68 Other: Voiding Method Urinal Urinal # Voids 2 - Labs CBC & Chem 7: 06/29/21 10:40 06/29/21 10:40 Labs: Abnormal Lab Results - Last 24 Hours (Table) 06/28/21 06/28/21 Range/Units 05:29 05:29 RBC 2.48 L (4.40-5.60) X 10*6/uL Hgb 7.1 L (13.0-17.0) g/dL Hct 25.2 L (39.6-50.0) % MCV 101.6 H (80.0-97.0) fL MCHC 28.2 L (32.0-37.0) g/dL RDW 15.5 H (11.5-14.5) % Lymphocytes # 0.85 L (0.90-5.00) X 10*3/uL Eosinophils # 0.49 H (0.04-0.35) X 10*3/uL Procalcitonin 0.30 H (0.02-0.09) ng/mL
[2021-06-29] MEDS: allopurinoL 100 MG TAB PO SCH (15:18)
[2021-06-29] MEDS: TAMSULOSIN 0.4 MG CAP.ER.24H PO SCH (15:19)
[2021-06-29] MEDS: AZITHROMYCIN 500 MG in SODIUM CHLORIDE 0.9% 250 ML IVPB SCH (15:19)
--- NOTE | 2021-06-29 15:27 | P.PN ---
Subjective Patient is seen for follow-up for acute kidney injury on top of chronic kidney disease. Baseline creatinine around 1.4-1.5 mg/dL. Patient was admitted with shortness of breath. Currently receiving treatment for COPD exacerbation and pneumonia. Patient is maintained on IV fluids. Serum creatinine had decreased to 2.1 from 2.5. Has been slowly increasing again. 2.6 today. Good UOP. CXR from today shows evidence of volume overload Pt remains on midodrine. SBP above 100mmHg Objective - Vital Signs Vital signs: Vital Signs Temp 97.4 F L 06/29/21 13:11 Pulse 60 06/29/21 13:11 Resp 17 06/29/21 13:11 BP 128/66 06/29/21 13:11 Pulse Ox 95 06/29/21 13:11 Intake & Output 06/28/21 06/29/21 06/29/21 18:59 06:59 18:59 Intake Total 300 Output Total 568 650 Balance -268 -650 Intake: Intake, IV Titration 300 Amount Azithromycin 500 mg In 250 Sodium Chloride 0.9% 250 ml @ 250 mls/hr IVPB DAILY@1500 [facility] Rx#: [id number] cefTRIAXone 1 gm In 50 Sodium Chloride 0.9% 50 ml @ 100 mls/hr IVPB Q24HR [facility] Rx#:[id number] Output: Urine 500 650 Post Void Residual 68 Other: Voiding Method Urinal Urinal # Voids 2 - Exam And is awake comfortable he is not in any acute distress. Boyd examination of the heart S1 and S2 Examination lungs bilateral breath sounds are heard decreased breath sounds at the bases Abdomen is soft nontender Examination of lower extremities shows no significant edema. left upper extremity is currently wrapped. - Labs CBC & Chem 7: 06/29/21 10:40 06/29/21 10:40 Labs: Abnormal Lab Results - Last 24 Hours (Table) 06/29/21 06/29/21 Range/Units 10:40 10:40 RBC 2.53 L (4.30-5.90) m/uL Hgb 7.7 L (13.0-17.5) gm/dL Hct 25.4 L (39.0-53.0) % MCV 100.6 H (80.0-100.0) fL MCHC 30.3 L (31.0-37.0) g/dL RDW 15.6 H (11.5-15.5) % Neutrophils # 7.9 H (1.3-7.7) k/uL Sodium 134 L (137-145) mmol/L Potassium 5.5 H (3.5-5.1) mmol/L BUN 50 H (9-20) mg/dL Creatinine 2.66 H (0.66-1.25) mg/dL Glucose 127 H (74-99) mg/dL Calcium 10.3 H (8.4-10.2) mg/dL Assessment and Plan Assessment: 1. Acute kidney injury possibly from volume depletion associated with diarrhea and diuretics. Currently maintained on IV fluids. Serum creatinine had improved but slightly higher today.No retention. BP not low now. Good UOP. ? Cardiorenal as pt is volume overloaded 2. CK D stage III secondary to nephrosclerosis with creatinine baseline about 1.4 on 05/24/2021 3. Anemia, rule out iron deficiency, no active bleeding noted 4. Recent hospitalization for shortness of breath for COPD exacerbation and CHF exacerbation 5. Volume overload Plan: Encourage increased oral intake. Agree with discontinuation of IV fluids. Continue midodrine. May need to repeat lasix
[2021-06-29] MEDS: METOPROLOL SUCCINATE (ER) 50 MG TAB.ER.24H PO SCH (19:48)
[2021-06-30] MEDS: IPRATROPIUM-ALBUTEROL 3 ML NEB INHALATION SCH ×4 (07:22→19:50)
[2021-06-30] MEDS: BUDESONIDE 0.5 MG/2 ML NEBU INHALATION SCH ×2 (07:25→19:50)
[2021-06-30] MEDS: APIXABAN 2.5 MG TABLET PO SCH (08:00)
[2021-06-30] MEDS: LEVOTHYROXINE 25 MCG TAB PO SCH (08:00)
[2021-06-30] MEDS: PANTOPRAZOLE 40 MG TABLET PO SCH (08:00)
[2021-06-30] MEDS: INSULIN ASPART (NovoLOG) 100 UNIT/ML VIAL SQ SCH ×4 (08:00→20:26)
[2021-06-30] MEDS: MIDODRINE 5 MG TAB PO SCH ×3 (08:02→21:14)
[2021-06-30] MEDS: HYDROcodone/APAP 10-325MG 1 EACH TAB PO PRN ×3 (08:05→21:15)
[2021-06-30] MEDS: diphenhydrAMINE 25 MG CAP PO PRN ×3 (08:05→21:15)
[2021-06-30 08:33] LABS: African American GFR (CKD) 26 (>60 ml/min/1.73 sqM); Anion Gap 4 mmol/L; Blood Urea Nitrogen 50 mg/dL (9-20); Calcium 10.3 mg/dL (8.4-10.2); Carbon Dioxide 28 mmol/L (22-30); Chloride 103 mmol/L (98-107); Glucose 114 mg/dL (74-99); Non-African American GFR(CKD) 23 (>60 ml/min/1.73 sqM); Potassium 5.4 mmol/L (3.5-5.1); Sodium 135 mmol/L (137-145)
[2021-06-30 09:06] LABS: Anisocytosis Slight; Basophils % (A) 0 %; Eosinophils # (A) 0.6 k/uL (0-0.7); Eosinophils % (A) 6 %; HCT 25.2 % (39.0-53.0); HGB 7.5 gm/dL (13.0-17.5); Hypochromasia Marked; Lymphocytes # (A) 1.2 k/uL (1.0-4.8); Lymphocytes % (A) 13 %; MCH 30.1 pg (25.0-35.0); MCHC 29.8 g/dL (31.0-37.0); MCV 100.8 fL (80.0-100.0); Macrocytosis Slight; Mean Platelet Volume 8.3; Monocytes # (A) 0.6 k/uL (0-1.0); Monocytes % (A) 6 %; Neutrophils # (A) 6.9 k/uL (1.3-7.7); Neutrophils % (A) 73 %; Platelet Count 225 k/uL (150-450); WBC 9.5 k/uL (3.8-10.6)
[2021-06-30] MEDS ORDERED: SODIUM POLYSTYRENE SULFONATE 15 GM/60 ML BOTTLE PO STA (09:22)
[2021-06-30] MEDS: FUROSEMIDE 10 MG/ML 4 ML VIAL IV SCH ×2 (11:10→20:24)
--- NOTE | 2021-06-30 11:33 | P.CNPUL ---
History of Present Illness Consult date: 06/30/21 Requesting physician: Stefany Ricci Reason for consult: dyspnea, abnormal CXR/CT, other (Hemoptysis) Chief complaint: Shortness of breath History of present illness: This is a very pleasant 65-year-old male patient who resides in a local [place] [facility] care facility. He has a history of atrial fibrillation anticoagulated with Eliquis, congestive heart failure, chronic obstructive pulmonary disease, diabetes mellitus, hypothyroidism, hypertension. He is oxygen dependent normally at 4 L/m per nasal cannula. He quit smoking approximately 4 years ago after a 50 year smoking history. He was seen here last month for COPD exacerbation. He also has a history of a recent fall with a comminuted, intra-articular left distal radius fracture with markedly deformity with a date of injury approximate 7 weeks ago. He had been seen by orthopedics. Wrist brace and Dany wrap in place. He presented here to the emergency room from the [facility] on 06/24/2021 with complaints of increasing shortness of breath and hypoxemia. His oxygen was increased to 6 L nasal cannula. His x-ray revealed bilateral pleural effusions and signs of pulmonary edema with some underlying congestive heart failure. Infection not completely excluded. White count 9.5. Hemoglobin 7.5. Platelets 225. Sodium 135. Potassium 5.4. Bicarb 28. BUN 50. Creatinine 2.82. Glucose 114. Pro-calcitonin 0.30. He had been initiated on Lasix 40 mg IV every 12 hours, DuoNeb inhalations, Pulmicort inhalations, antibiotics in the form of ceftriaxone and azithromycin. Anticoagulated with Eliquis. Last evening and this morning he developed hemoptysis were consulted today 06/30/2021. He is seen on the regular medical floor. Currently sitting up in bed. Awake and alert in no acute distress. He states he is coughing up blood denying any hematemesis. Currently maintaining O2 saturation up to 100% on 5 L/m per nasal cannula. He's been afebrile. Hemodynamically stable. No further hemoptysis since earlier this morning. Review of Systems REVIEW OF SYSTEMS: CONSTITUTIONAL: Denies any recent significant weight loss or weight gain. EYES: Denies change in vision. EARS, NOSE, MOUTH, THROAT: Denies headaches, denies sore throat. CARDIOVASCULAR: Denies chest pain, palpitations or syncopal episodes. RESPIRATORY: Positive for shortness of breath, cough, congestion and hemoptysis. GASTROINTESTINAL: Denies change in appetite, denies abdominal pain GENITOURINARY: Denies hematuria, denies infections. MUSKULOSKELETAL: Previous fracture to the left upper extremity. Denies pain, denies swelling. INTEGUMENTARY: Denies rash, denies eczema. NEUROLOGICAL: Denies recent memory loss, no recent seizure activity. PSYCHIATRIC: Denies anxiety, denies depression. HEMATOLOGIC/LYMPHATIC: Denies anemia, denies enlarged lymph nodes. Past Medical History Past Medical History: Atrial Fibrillation, Heart Failure, COPD, Diabetes Mellitus, Deep Vein Thrombosis (DVT), GERD/Reflux, Hyperlipidemia, Hypertension, Pneumonia, Renal Disease, Respiratory Disorder, Skin Disorder, Sleep Apnea/CPAP/BIPAP, Vascular Disorder Additional Past Medical History / Comment(s): Pt recently admitted to [facility] on 08/02/20 with chf/acute on chronic renal disease, possible pneumonia. Pt tested covic+ on 08/20/20 at [facility] ER. Other hx: Chronic hypoxic respiratory failure an d the patient OXYGEN dependent 5 L, previous history of left-sided pneumothorax requiring a Thoravent insertion, IDDM type II, paroxysmal AFIB, SSS with pacer, nonischemic cardiomyopathy, past alcoholism/DTs, diverticulosis, obstuctive sleep apnea but no Cpap since wt loss, sinusitis, neuropathy bilateral feet, elevated LFTs, BPH, CKD stag III, DVT R leg, hypomagnesemia, hypoalbuminemia, anemia, protein calorie malnutrition, PVD, current sores bilateral feet. History of Any Multi-Drug Resistant Organisms: None Reported Past Surgical History: Appendectomy, Cholecystectomy, Heart Catheterization, Pacemaker Additional Past Surgical History / Comment(s): Partial liver removed d/t adhesions, colonoscopies, bilateral eyes blepharoplasties, pacer Past Anesthesia/Blood Transfusion Reactions: Postoperative Nausea & Vomiting (PONV) Additional Past Anesthesia/Blood Transfusion Reaction / Comment(s): Pt states he has had PONV with gas only. Type of Cardiac Device: Permanent Pacemaker Device Placement Date:: 2017 Past Psychological History: Anxiety, Depression, Panic Disorder Smoking Status: Former smoker Past Alcohol Use History: None Reported Past Drug Use History: None Reported - Past Family History Mother Family Medical History: Thyroid Disorder Additional Family Medical History / Comment(s): . Father Additional Family Medical History / Comment(s): Father of diverticulitis,peritonitis at the age of 35yrs. Medications and Allergies Home Medications Medication Instructions Recorded Confirmed Type Tamsulosin [Flomax] 0.4 mg PO DAILY@1400 06/23/16 06/24/21 History ondansetron HCL [Zofran] 4 mg PO Q8H PRN 09/30/18 06/24/21 History Apixaban [Eliquis] 2.5 mg PO BID 01/11/19 06/24/21 History Insulin Glargine,Hum.rec.anlog 25 unit SQ HS@199908/02/20 06/24/21 History [Lantus Solostar Pen] Levothyroxine Sodium [Synthroid] 25 mcg PO DAILY@0700 08/02/20 06/24/21 History Ipratropium/Albuter 20-100Mcg 1 puff INHALATION RT-QID 05/17/21 06/24/21 History [Combivent Respimat 20-100Mcg Inhaler] Lidocaine 5% Patch [Lidoderm 5% 1 patch TOPICAL DAILY@1600 PRN 05/17/21 06/24/21 History Patch] Midodrine HCl [ProAmatine] 10 mg PO TID 05/17/21 06/24/21 History allopurinoL [Zyloprim] 200 mg PO DAILY@1400 05/17/21 06/24/21 History Ascorbic Acid [Vitamin C] 1,000 mg PO BID@0800,1400 06/24/21 06/24/21 History Budesonide [Pulmicort] 0.5 mg INHALATION RT-BID 06/24/21 06/24/21 History Cholecalciferol [Vitamin D3 (25 25 mcg PO DAILY@0800 06/24/21 06/24/21 History Mcg = 1000 Iu)] Dicyclomine [Bentyl] 20 mg PO Q8H PRN 06/24/21 06/24/21 History Ferrous Sulfate [Feosol] 325 mg PO DAILY@0800 06/24/21 06/24/21 History Fluticasone/Vilanterol [Breo 1 puff INHALATION RT-DAILY@0600 06/24/21 06/24/21 History Ellipta 200-25 Mcg Inhaler] HYDROcodone/APAP 5-325MG [[place] 1 tab PO Q8H PRN 06/24/21 06/24/21 History 5-325] HYDROcodone/APAP 5-325MG [[place] 1 tab PO Q8H PRN 06/24/21 06/24/21 History 5-325] INSULIN ASPART (NovoLOG) [NovoLOG See Protocol SQ ACHS 06/24/21 06/24/21 History (formulary)] Ipratropium-Albuterol Nebulize 3 ml INHALATION RT-Q4H PRN 06/24/21 06/24/21 History [Duoneb 0.5 mg-3 mg/3 ml Soln] Loperamide HCl [Loperamide] 2 mg PO Q6H PRN 06/24/21 06/24/21 History Metoprolol Succinate (ER) [Toprol 50 mg PO HS@199906/24/21 06/24/21 History XL] Omeprazole 20 mg PO HS@199906/24/21 06/24/21 History Torsemide [Demadex] 40 mg PO DAILY@0700 06/24/21 06/24/21 History Zinc Sulfate [Orazinc] 220 mg PO BID@0800,1400 06/24/21 06/24/21 History Allergies Allergy/AdvReac Type Severity Reaction Status Date / Time codeine Allergy Unknown Verified 06/24/21 18:27 Physical Exam Vitals: Vital Signs Temp Pulse Pulse Pulse Resp BP Pulse Ox 06/30/21 10:54 60 06/30/21 10:44 63 06/30/21 07:38 60 06/30/21 07:22 60 100 06/30/21 04:00 98.2 F 60 24 125/67 97 06/29/21 19:37 68 06/29/21 19:28 69 06/29/21 19:00 98.1 F 60 20 127/62 94 L 06/29/21 15:55 65 06/29/21 15:51 98 06/29/21 15:47 62 06/29/21 13:11 97.4 F L 60 17 128/66 95 06/29/21 11:35 69 06/29/21 11:22 67 Intake and Output 06/29/21 06/30/21 06/30/21 22:59 06:59 14:59 Intake Total 300 700 Balance 300 700 Intake: Intake, IV Titration 300 600 Amount Azithromycin 500 mg In 250 Sodium Chloride 0.9% 250 ml @ 250 mls/hr IVPB DAILY@1500 [facility] Rx#: [id number] Lactated Ringers 1,000 ml 600 @ 50 mls/hr IV .Q20H [facility] Rx#:[id number] cefTRIAXone 1 gm In 50 Sodium Chloride 0.9% 50 ml @ 100 mls/hr IVPB Q24HR [facility] Rx#:[id number] Oral 100 Other: Voiding Method Urinal Urinal # Voids 0 2 GENERAL EXAM: Alert, pleasant 65-year-old gentleman, on 5 L nasal cannula, comfortable in no apparent distress. HEAD: Normocephalic. EYES: Normal reaction of pupils, equal size. NOSE: Clear with pink turbinates. THROAT: No erythema or exudates. NECK: No masses, no JVD. CHEST: No chest wall deformity. LUNGS: Equal air entry with crackles in the bilateral bases, diminished. CVS: S1 and S2 normal with no audible murmur, regular rhythm. ABDOMEN: No hepatosplenomegaly, normal bowel sounds, no guarding or rigidity. SPINE: No scoliosis or deformity SKIN: No rashes CENTRAL NERVOUS SYSTEM: No focal deficits, tone is normal in all 4 extremities. EXTREMITIES: Left upper extremity in a splint and Dany wrap. There is no peripheral edema. No clubbing, no cyanosis. Peripheral pulses are intact. Results - Laboratory Findings CBC and BMP: 06/30/21 07:39 06/30/21 07:39 Abnormal lab findings: Abnormal Labs 06/24/21 06/24/21 06/25/21 16:00 16:00 05:45 WBC 11.2 H RBC 3.00 L Hgb 9.0 L Hct 29.0 L MCV MCHC RDW 15.9 H Neutrophils # 8.7 H Lymphocytes # Eosinophils # Sodium 134 L Potassium 5.3 H Chloride 93 L Carbon Dioxide 32 H BUN 63 H Creatinine 2.47 H Est GFR (CKD-EPI)AfAm Est GFR (CKD-EPI)NonAf BUN/Creatinine Ratio Glucose 143 H POC Glucose (mg/dL) Hemoglobin A1c 6.4 H Calcium Magnesium 0.8 L* Total Bilirubin AST ALT C-Reactive Protein Albumin Globulin Albumin/Globulin Ratio Procalcitonin 06/25/21 06/25/21 06/25/21 05:45 05:45 07:05 WBC RBC 2.76 L Hgb 7.9 L Hct 27.2 L MCV 98.6 H MCHC 29.0 L RDW 15.3 H Neutrophils # Lymphocytes # Eosinophils # Sodium Potassium Chloride 94 L Carbon Dioxide 30.2 H BUN 55.2 H Creatinine 2.5 H Est GFR (CKD-EPI)AfAm 30.3 L Est GFR (CKD-EPI)NonAf 26.2 L BUN/Creatinine Ratio 22.08 H Glucose 133 H POC Glucose (mg/dL) 125 H Hemoglobin A1c Calcium Magnesium Total Bilirubin AST ALT C-Reactive Protein Albumin Globulin Albumin/Globulin Ratio Procalcitonin 06/25/21 06/25/21 06/25/21 11:20 17:03 20:51 WBC RBC Hgb Hct MCV MCHC RDW Neutrophils # Lymphocytes # Eosinophils # Sodium Potassium Chloride Carbon Dioxide BUN Creatinine Est GFR (CKD-EPI)AfAm Est GFR (CKD-EPI)NonAf BUN/Creatinine Ratio Glucose POC Glucose (mg/dL) 149 H 174 H 127 H Hemoglobin A1c Calcium Magnesium Total Bilirubin AST ALT C-Reactive Protein Albumin Globulin Albumin/Globulin Ratio Procalcitonin 06/26/21 06/26/21 06/27/21 07:30 12:24 07:32 WBC RBC Hgb Hct MCV MCHC RDW Neutrophils # Lymphocytes # Eosinophils # Sodium Potassium Chloride Carbon Dioxide BUN 45.6 H Creatinine 2.1 H Est GFR (CKD-EPI)AfAm 37.4 L Est GFR (CKD-EPI)NonAf 32.3 L BUN/Creatinine Ratio 21.71 H Glucose 123 H POC Glucose (mg/dL) 116 H 120 H Hemoglobin A1c Calcium Magnesium Total Bilirubin <0.15 L AST 11 L ALT <5 L C-Reactive Protein Albumin 2.8 L Globulin 3.6 H Albumin/Globulin Ratio 0.78 L Procalcitonin 06/28/21 06/28/21 06/28/21 05:29 05:29 05:29 WBC RBC 2.48 L Hgb 7.1 L Hct 25.2 L MCV 101.6 H MCHC 28.2 L RDW 15.5 H Neutrophils # Lymphocytes # 0.85 L Eosinophils # 0.49 H Sodium 134 L Potassium 5.4 H Chloride Carbon Dioxide BUN 50 H Creatinine 2.33 H Est GFR (CKD-EPI)AfAm Est GFR (CKD-EPI)NonAf BUN/Creatinine Ratio Glucose 123 H POC Glucose (mg/dL) Hemoglobin A1c Calcium Magnesium Total Bilirubin AST ALT C-Reactive Protein 2.6 H Albumin Globulin Albumin/Globulin Ratio Procalcitonin 0.30 H 06/29/21 06/29/21 06/30/21 10:40 10:40 07:39 WBC RBC 2.53 L Hgb 7.7 L Hct 25.4 L MCV 100.6 H MCHC 30.3 L RDW 15.6 H Neutrophils # 7.9 H Lymphocytes # Eosinophils # Sodium 134 L 135 L Potassium 5.5 H 5.4 H Chloride Carbon Dioxide BUN 50 H 50 H Creatinine 2.66 H 2.82 H Est GFR (CKD-EPI)AfAm Est GFR (CKD-EPI)NonAf BUN/Creatinine Ratio Glucose 127 H 114 H POC Glucose (mg/dL) Hemoglobin A1c Calcium 10.3 H 10.3 H Magnesium Total Bilirubin AST ALT C-Reactive Protein Albumin Globulin Albumin/Globulin Ratio Procalcitonin 06/30/21 07:39 WBC RBC 2.50 L Hgb 7.5 L Hct 25.2 L MCV 100.8 H MCHC 29.8 L RDW 16.0 H Neutrophils # Lymphocytes # Eosinophils # Sodium Potassium Chloride Carbon Dioxide BUN Creatinine Est GFR (CKD-EPI)AfAm Est GFR (CKD-EPI)NonAf BUN/Creatinine Ratio Glucose POC Glucose (mg/dL) Hemoglobin A1c Calcium Magnesium Total Bilirubin AST ALT C-Reactive Protein Albumin Globulin Albumin/Globulin Ratio Procalcitonin - Diagnostic Findings Chest x-ray: image reviewed Assessment and Plan Assessment: 1 Acute on chronic hypoxic respiratory failure secondary to acute exacerbation of systolic congestive heart failure, bilateral pleural effusions, mild exacerbation of COPD with tracheobronchitis and hemoptysis 2 Recent fall, about 7 weeks ago, with comminuted intra-articular left distal radius fracture with marketed deformity To be followed up in the outpatient setting 3 Paroxysmal atrial fibrillation, anticoagulated with Eliquis 4 Sick sinus syndrome status post permanent pacemaker implantation 5 Former smoker with oxygen dependent COPD and normally on 4 L nasal cannula 6 Diabetes mellitus 7 Hyperlipidemia 8 Hypertension 9 Chronic kidney disease stage III 10 Prior history of alcoholism 11 History of previous left-sided pneumothorax requiring ThoraVent Plan: The patient was seen and evaluated Chest x-ray and labs reviewed Hold Eliquis for now until hemoptysis resolved Initiate IV Solu-Medrol Continue diuretics Continue bronchodilators and antibiotics Titrate down the FiO2 as tolerated Obtain ultrasound of the bilateral effusions Will plan for thoracentesis if significant fluid We will continue to follow and make further recommendations based on his clinical status I, the cosigning physician, performed a history & physical examination of the patient. Lungs sounds with crackles in the bilateral bases, diminished. Maintaining good O2 saturations in the 90s on IV liters per minute per nasal. I discussed the assessment and plan of care with my nurse practitioner, Ella Hair. I attest to the above consultation as dictated by her. I have personally seen and examined the patient, performed the documentation and the assessment and plan as written. Number of minutes spent on the visit: 20.
[2021-06-30] MEDS: TAMSULOSIN 0.4 MG CAP.ER.24H PO SCH (14:11)
[2021-06-30] MEDS: allopurinoL 100 MG TAB PO SCH (14:11)
[2021-06-30] MEDS: AZITHROMYCIN 500 MG TAB PO SCH (14:11)
--- NOTE | 2021-06-30 14:42 | US ---
EXAMINATION TYPE: US chest DATE OF EXAM: 06/30/2021 COMPARISON: NONE CLINICAL HISTORY: Pleural effusions. TECHNIQUE: Targeted ultrasound of the posterior lower EXAM MEASUREMENTS: Right Pleural Effusion pocket size: 2.5 cm Right skin surface to fluid distance: 2.8 cm Left Pleural Effusion pocket size: 12.5 cm Left skin surface to fluid distance: 2.7 cm Skin to lun.0cm Right side marked for possible thoracentesis outside the dept. Left side Not marked for possible thoracentesis outside the dept. Pulmonologists are able to review the images in the patient?s EMR. IMPRESSIONS: Bilateral pleural effusion
[2021-06-30] MEDS: methylPREDNISolone SOD SUCCI 40 MG/ML 1 ML VIAL IV SCH ×2 (15:40→23:17)
--- NOTE | 2021-06-30 15:40 | P.PN ---
Subjective Progress Note Date: 06/30/21 Acute on chronic kidney disease; possibly related to overdiuresis Electrolyte imbalance; hypokalemia/hypomagnesemia 65-year-old male with an extensive PMH including COPD, chronic tobacco respiratory failure on 3 L of the cannula oxygen chronic kidney disease, systolic CHF, type II DM, hypothyroidism, hypertension, hyperlipidemia, A. fib on Eliquis, who was sent in from [facility] for shortness of breath. The patient was admitted to the hospital on 05/17/2021 for hypoxic respiratory failure secondary to COPD and pneumonia from where he was discharged to [facility]. Patient reports that since this diagnosis of COVID in 08/2020 that he has had persistent shortness of breath. He notes that it is at his baseline at the time of evaluation. He reports a chronic cough with white phlegm which is unchanged. He denied chest discomfort, nausea, vomiting, abdominal pain, diarrhea, dizziness. Reports using 3-4 L of nasal cannula oxygen continuously which has not changed. In the emergency room, laboratory evaluation was remarkable for magnesium of 0.8, BUN 63, creatinine 2.47 (up from 1.4), and potassium 5.3. EKG reveals sinus rhythm with first-degree AV block at 70 bpm with right bundle branch block. Chest x-ray revealed right greater than left bibasilar acute infiltrates along with pleural effusions concerning for CHF. Patient has been placed on IV fluids in form of normal saline; nephrology is consulted and recommending to switch to lactated Ringer; plan is to continue to monitor renal function and electrolytes closely 06/27/2021 Patient is seen and evaluated in room at bedside; complains of persistent nausea with 2 episodes of vomiting since morning Vital signs are reviewed, temperature 97.9, pulse 60, respiration 19 and blood pressure 130/61 Lab review shows sodium 137, potassium 5.3, BUN/creatinine of 45/2.1 which is improved from 55/2.5 yesterday; patient is currently on IV fluids in form of lactated Ringer Chest x-ray reveals bibasilar acute infiltrate with small bilateral pleural effusions; patient denies any any cough or sputum production; we will start empirically on IV antibiotics and monitor CBC, CRP and pro-calcitonin; further recommendations pending test results 06/28/2021 Patient is seen and evaluated in follow-up currently being closely monitored. Patient is being closely monitored by nephrology along with orthopedics being consulted as patient has been seen in the past for his left wrist fracture which is currently splinted. Patient's kidney functions continue to be elevated and will continue with gentle IV hydration for now and hold diuretics. Will repeat labs and continue to monitor closely. Patient denies chest pain, worsening shortness of breath, or palpitations. Patient is afebrile. No reports of nausea or vomiting and patient is tolerating diet. 06/29/2021 Patient is seen in follow-up this morning currently working with physical therapy and continues to be extremely weak and will be returning to rehab at [facility] once stable and discharged. Patient being closely followed by nephrology closely and currently maintained on LR at 50 mL per hour and kidney functions continue to worsen. Sodium is 134, potassium is 5.5, BUN is 50 and creatinine is 2.66 and diuretics are on hold. Hemoglobin is improved at 7.7 with no active bleeding noted. Orthopedics also evaluated the patient and ordering splint for the left wrist. Chest x-ray ordered and pending. 06/30/2021 Patient is seen in follow-up today stating he does not feel well and having generalized fatigue and weakness. Nephrology following closely and kidney fun ctions continue to worsen and have resumed IV Lasix twice daily as patient was also having some fluid volume overload. Potassium mildly elevated at 5.4 today, BUN is 50, creatinine elevated at 2.82. Patient is maintained on Eliquis twice daily and having some increasing cough and congestion and reports to having hemoptysis with bright red blood noted. Patient did receive anticoagulant today. Instructed the nurse to hold anticoagulant for now and pulmonary was consulted and pending. Chest x-ray from yesterday shows bilateral pleural effusions and chest ultrasound ordered. Patient reports to one episode of hemoptysis. Hemoglobin is stable and actually improved from previous at 7.5. Patient maintained on 5 L via nasal cannula and oxygen saturations are 100%. Wean FiO2 as tolerated. Patient denies worsening shortness of breath, chest pain, or palpitations. Patient is afebrile. Patient tolerating diet with no reports of nausea or vomiting noted. Patient reports to less urine output. Review of systems: Constitutional: reports of fatigue, no reports of fever, or chills Cardiovascular: No reports of chest pain or palpitations Respiratory: No reports of worsening shortness of breath , reports cough and one episode of blood noted in the sputum GI: No reports of nausea, no reports of of vomiting : No reports of dysuria or retention Neurovascular: reports of generalized weakness, reports left wrist pain All medications have been reviewed Active Medications Hydrocodone Bitart/Acetaminophen (Hydrocodone/Apap 10-325mg 1 Each Tab) 1 each PO Q6HR PRN PRN Reason: Moderate Pain Last Admin: 06/30/21 08:05 Dose: 1 each Documented by: Albuterol/Ipratropium (Ipratropium-Albuterol 3 Ml Neb) 3 ml INHALATION RT-QID PRN PRN Reason: Shortness Of Breath Or Wheezing Last Admin: 06/24/21 23:16 Dose: 3 ml Documented by: Albuterol/Ipratropium (Ipratropium-Albuterol 3 Ml Neb) 3 ml INHALATION RT-QID [facility] Last Admin: 06/30/21 10:43 Dose: 3 ml Documented by: Allopurinol (Allopurinol 100 Mg Tab) 200 mg PO DAILY@1400 [facility] Last Admin: 06/30/21 14:11 Dose: 200 mg Documented by: Azithromycin (Azithromycin 500 Mg Tab) 500 mg PO DAILY@1500 [facility] Last Admin: 06/30/21 14:11 Dose: 500 mg Documented by: Budesonide (Budesonide 0.5 Mg/2 Ml Nebu) 0.5 mg INHALATION RT-BID [facility] Last Admin: 06/30/21 07:25 Dose: 0.5 mg Documented by: Dicyclomine HCl (Dicyclomine 20 Mg Tab) 20 mg PO Q8H PRN PRN Reason: IBS Last Admin: 06/24/21 23:36 Dose: 20 mg Documented by: Diphenhydramine HCl (Diphenhydramine 25 Mg Cap) 25 mg PO TID PRN PRN Reason: Itching Last Admin: 06/30/21 08:05 Dose: 25 mg Documented by: Furosemide (Furosemide 10 Mg/Ml 4 Ml Vial) 40 mg IV Q12HR [facility] Last Admin: 06/30/21 11:10 Dose: 40 mg Documented by: Ceftriaxone Sodium 1 gm/ (Sodium Chloride) 50 mls @ 100 mls/hr IVPB Q24HR [facility] Last Admin: 06/30/21 08:00 Dose: 100 mls/hr Documented by: Insulin Aspart (Insulin Aspart (Novolog) 100 Unit/Ml Vial) 0 unit SQ [facility]; Protocol Last Admin: 06/30/21 12:28 Dose: Not Given Documented by: Levothyroxine Sodium (Levothyroxine 25 Mcg Tab) 25 mcg PO DAILY@0700 [facility] Last Admin: 06/30/21 08:00 Dose: 25 mcg Documented by: Loperamide HCl (Loperamide 2 Mg Cap) 2 mg PO Q6H PRN PRN Reason: Diarrhea Last Admin: 06/24/21 23:36 Dose: 2 mg Documented by: Methylprednisolone Sodium Succinate (Methylprednisolone Sod Succi 40 Mg/Ml 1 Ml Vial) 40 mg IV Q8HR [facility] Metoprolol Succinate (Metoprolol Succinate (Er) 50 Mg Tab.Er.24h) 50 mg PO HS@2000 [facility] Last Admin: 06/29/21 19:48 Dose: Not Given Documented by: Midodrine (Midodrine 5 Mg Tab) 10 mg PO TID [facility] Last Admin: 06/30/21 08:02 Dose: 10 mg Documented by: Naloxone HCl (Naloxone 0.4 Mg/Ml 1 Ml Vial) 0.2 mg IV Q2M PRN PRN Reason: Opioid Reversal Ondansetron HCl (Ondansetron 4 Mg Tab) 4 mg PO Q8H PRN PRN Reason: Nausea And Vomiting Last Admin: 06/27/21 11:41 Dose: 4 mg Documented by: Pantoprazole Sodium (Pantoprazole 40 Mg Tablet) 40 mg PO -BRKFST [facility] Last Admin: 06/30/21 08:00 Dose: 40 mg Documented by: Tamsulosin HCl (Tamsulosin 0.4 Mg Cap.Er.24h) 0.4 mg PO DAILY@1400 [facility] Last Admin: 06/30/21 14:11 Dose: 0.4 mg Documented by: PHYSICAL EXAMINATION: GENERAL: The patient is alert and oriented x3, Well developed, well nourished. Ill-appearing, appears older than stated age HEENT: Pupils are round and equally reacting to light. EOMI. does have scleral icterus. No conjunctival pallor. Normocephalic, atraumatic. No pharyngeal erythema. No thyromegaly. CARDIOVASCULAR: S1 and S2 muffled PULMONARY: diminished breath sounds bilaterally with some scattered rhonchi and crackles noted. ABDOMEN: soft. Nontender on exam. obese. non-distended, normoactive bowel sounds. No palpable organomegaly. MUSCULOSKELETAL: No joint swelling or deformity. EXTREMITIES: No cyanosis, clubbing, or pedal edema. Left wrist splint noted Dany wrapping NEUROLOGICAL: Gross neurological examination did not reveal any focal deficits. Diffuse weakness SKIN: No rashes. Assessment: Acute on chronic kidney disease possibly secondary to diuretic use Acute on chronic hypoxic respiratory failure secondary to acute on chronic systolic congestive heart failure, acute exacerbation Hyperkalemia most likely related to acute renal injury COPD, acute exacerbation Hemoptysis, one episode, on eliquis Hypertension Hyperlipidemia hypothyroidism atrial fibrillation, paroxysmal currently rate controlled sick sinus syndrome with pacemaker placement Recent left wrist fracture status post fall 7 weeks ago showing a comminuted intra-articular left distal radius fracture with marked deformity Diabetes mellitus type 2 GI prophylaxis DVT prophylaxis Full code Plan: Recommend to continue with current medications and management. Diuretics were on hold and patient was placed on gentle IV hydration and most likely a component of volume overload and will resume IV Lasix twice daily after discussing with nephrology about treatment plan. Potassium mildly elevated and will correct and repeat labs. Pulmonary consulted as patient did have an episode of hemoptysis although is one isolated episode and nothing further. Eliquis on hold for possible thoracentesis and chest ultrasound is ordered. Patient does have bilateral pleural effusions. Patient continues to have left wrist pain and orthopedics evaluated the patient and ordering a left wrist splint. Patient to continue with breathing inhalational treatments along with Zithromax and ceftriaxone as well. PT/OT following and working with the patient as the patient continues with weakness. Patient will be returning to [place] was stabilized and discharged. Recommend continued Accu-Cheks before meals and at bedtime and close monitoring. Due to multiple complex medical issues, prognosis is guarded. The impression and plan of care has been dictated by Rochelle Salinas nurse practitioner as directed. Dr. Garo MD I have performed a history and examination and MDM of this patient, discussed the same with the dictator, and agree with the dictator's assessment and plan as written ,documented as a scribe. Based on total visit time, I have performed more than 50% of the visit. Any additional findings or plans will be noted. Objective - Vital Signs Vital signs: Vital Signs Temp 98.2 F 06/30/21 04:00 Pulse 60 06/30/21 07:38 Resp 24 06/30/21 04:00 BP 125/67 06/30/21 04:00 Pulse Ox 100 06/30/21 07:22 Intake & Output 06/29/21 06/30/21 06/30/21 18:59 06:59 18:59 Intake Total 300 700 Balance 300 700 Intake: Intake, IV Titration 300 600 Amount Azithromycin 500 mg In 250 Sodium Chloride 0.9% 250 ml @ 250 mls/hr IVPB DAILY@1500 [facility] Rx#: [id number] Lactated Ringers 1,000 ml 600 @ 50 mls/hr IV .Q20H [facility] Rx#:[id number] cefTRIAXone 1 gm In 50 Sodium Chloride 0.9% 50 ml @ 100 mls/hr IVPB Q24HR [facility] Rx#:[id number] Oral 100 Other: Voiding Method Urinal Urinal # Voids 2 - Labs CBC & Chem 7: 06/30/21 07:39 06/30/21 07:39 Labs: Abnormal Lab Results - Last 24 Hours (Table) 06/29/21 06/29/21 06/30/21 Range/Units 10:40 10:40 07:39 RBC 2.53 L (4.30-5.90) m/uL Hgb 7.7 L (13.0-17.5) gm/dL Hct 25.4 L (39.0-53.0) % MCV 100.6 H (80.0-100.0) fL MCHC 30.3 L (31.0-37.0) g/dL RDW 15.6 H (11.5-15.5) % Neutrophils # 7.9 H (1.3-7.7) k/uL Sodium 134 L 135 L (137-145) mmol/L Potassium 5.5 H 5.4 H (3.5-5.1) mmol/L BUN 50 H 50 H (9-20) mg/dL Creatinine 2.66 H 2.82 H (0.66-1.25) mg/dL Glucose 127 H 114 H (74-99) mg/dL Calcium 10.3 H 10.3 H (8.4-10.2) mg/dL 06/30/21 Range/Units 07:39 RBC 2.50 L (4.30-5.90) m/uL Hgb 7.5 L (13.0-17.5) gm/dL Hct 25.2 L (39.0-53.0) % MCV 100.8 H (80.0-100.0) fL MCHC 29.8 L (31.0-37.0) g/dL RDW 16.0 H (11.5-15.5) % Neutrophils # (1.3-7.7) k/uL Sodium (137-145) mmol/L Potassium (3.5-5.1) mmol/L BUN (9-20) mg/dL Creatinine (0.66-1.25) mg/dL Glucose (74-99) mg/dL Calcium (8.4-10.2) mg/dL
[2021-06-30] MEDS ORDERED: DARBEPOETIN ALFA 60 MCG/0.3 ML SYRINGE SQ SCH (19:30)
--- NOTE | 2021-06-30 19:31 | P.PN ---
Subjective Patient is seen for follow-up for acute kidney injury on top of chronic kidney disease. Baseline creatinine around 1.4-1.5 mg/dL. Patient was admitted with shortness of breath. Currently receiving treatment for COPD exacerbation and pneumonia. Patient is maintained on IV fluids. Serum creatinine had decreased to 2.1 from 2.5. Has been slowly increasing again. 2.8 today. Good UOP. No hypotension Patient is complaining off coughing out blood, mostly light in color. He has been started on IV Lasix since yesterday for CHF exacerbation. Pt remains on midodrine. SBP above 100mmHg Objective - Vital Signs Vital signs: Vital Signs Temp 97.4 F L 06/30/21 13:43 Pulse 60 06/30/21 15:17 Resp 18 06/30/21 13:43 BP 132/61 06/30/21 13:43 Pulse Ox 97 06/30/21 13:43 Intake & Output 06/30/21 06/30/21 07/01/21 06:59 18:59 06:59 Intake Total 700 800 Balance 700 800 Weight 86.636 kg Intake: Intake, IV Titration 600 Amount Lactated Ringers 1,000 ml 600 @ 50 mls/hr IV .Q20H [facility] Rx#:[id number] Oral 100 800 Other: Voiding Method Urinal Urinal # Voids 2 3 - Exam And is awake comfortable he is not in any acute distress. examination of the heart S1 and S2 Examination lungs bilateral breath sounds are heard decreased breath sounds at the bases Abdomen is soft nontender Examination of lower extremities shows 1+ edema. left upper extremity is currently wrapped. - Labs CBC & Chem 7: 06/30/21 07:39 06/30/21 07:39 Labs: Abnormal Lab Results - Last 24 Hours (Table) 06/30/21 06/30/21 Range/Units 07:39 07:39 RBC 2.50 L (4.30-5.90) m/uL Hgb 7.5 L (13.0-17.5) gm/dL Hct 25.2 L (39.0-53.0) % MCV 100.8 H (80.0-100.0) fL MCHC 29.8 L (31.0-37.0) g/dL RDW 16.0 H (11.5-15.5) % Sodium 135 L (137-145) mmol/L Potassium 5.4 H (3.5-5.1) mmol/L BUN 50 H (9-20) mg/dL Creatinine 2.82 H (0.66-1.25) mg/dL Glucose 114 H (74-99) mg/dL Calcium 10.3 H (8.4-10.2) mg/dL Assessment and Plan Assessment: 1. Acute kidney injury possibly from volume depletion associated with diarrhea and diuretics surely. Status post IV fluids. Serum creatinine had improved but now increasing again mostly cardiorenal. No retention. BP not low now. Good UOP. 2. CK D stage III secondary to nephrosclerosis with creatinine baseline about 1.4 on 05/24/2021 3. Anemia, rule out iron deficiency, no active bleeding noted 4. Recent hospitalization for shortness of breath for COPD exacerbation and CHF exacerbation 5. Volume overload , acute CHF exacerbation, diastolic. Ejection fraction 50- 55% on 05/18/2021 6. Mild hyperkalemia associated with acute kidney injury. Expect improvement with continued diuresis Plan: Encourage increased oral intake. Tinea with IV Lasix. Repeat labs in a.m. Continue midodrine. Check UA hold allopurinol Check iron profile Add Aranesp
[2021-06-30] MEDS: METOPROLOL SUCCINATE (ER) 50 MG TAB.ER.24H PO SCH (20:24)
[2021-06-30 23:10] LABS: Appearance,Urine Cloudy (Clear); Bacteria,Urine Rare /hpf; Bilirubin,Urine Negative (Negative); Blood,Urine Large (Negative); Budding Yeast,Urine Rare /hpf; Color,Urine Yellow; Glucose,Urine (UA) Negative (Negative); Ketones,Urine Negative (Negative); Leukocyte Esterase,Urine Large (Negative); Mucus,Urine Rare /hpf; Nitrite,Urine Negative (Negative); Protein,Urine 1+ (Negative); RBC,Urine 168 /hpf (0-5); Specific Gravity,Urine 1.011 (1.001-1.035); Urobilinogen,Urine <2.0 mg/dL (<2.0); WBC,Urine >182 /hpf (0-5)
[2021-07-01 00:24] LABS: % Iron Saturation 8.09 (15.00-50.00)
[2021-07-01] MEDS: INSULIN ASPART (NovoLOG) 100 UNIT/ML VIAL SQ SCH ×5 (01:45→20:38)
[2021-07-01] MEDS: HYDROcodone/APAP 10-325MG 1 EACH TAB PO PRN ×3 (03:25→20:37)
[2021-07-01] MEDS: diphenhydrAMINE 25 MG CAP PO PRN ×3 (03:25→20:37)
[2021-07-01] MEDS: IPRATROPIUM-ALBUTEROL 3 ML NEB INHALATION SCH ×4 (07:16→19:41)
[2021-07-01] MEDS: BUDESONIDE 0.5 MG/2 ML NEBU INHALATION SCH ×2 (07:16→19:41)
[2021-07-01] MEDS: PANTOPRAZOLE 40 MG TABLET PO SCH (08:14)
[2021-07-01] MEDS: LEVOTHYROXINE 25 MCG TAB PO SCH (08:14)
[2021-07-01] MEDS: methylPREDNISolone SOD SUCCI 40 MG/ML 1 ML VIAL IV SCH ×3 (08:15→23:20)
[2021-07-01 09:33] LABS: African American GFR (CKD) 26 (>60 ml/min/1.73 sqM); Anion Gap 5 mmol/L; Blood Urea Nitrogen 54 mg/dL (9-20); Calcium 9.9 mg/dL (8.4-10.2); Carbon Dioxide 29 mmol/L (22-30); Chloride 100 mmol/L (98-107); Glucose 183 mg/dL (74-99); Non-African American GFR(CKD) 23 (>60 ml/min/1.73 sqM); Potassium 5.7 mmol/L (3.5-5.1); Sodium 134 mmol/L (137-145)
[2021-07-01] MEDS: MIDODRINE 5 MG TAB PO SCH ×3 (09:42→20:59)
[2021-07-01] MEDS: FUROSEMIDE 10 MG/ML 4 ML VIAL IV SCH ×2 (09:44→20:37)
[2021-07-01] MEDS ORDERED: SODIUM ZIRCONIUM CYCLOSILICATE 10 GM PACKET PO ONE (11:15)
[2021-07-01] MEDS ORDERED: ARTIFICIAL TEARS-HYPROMELLOSE DROPS 15 ML BTL BOTH EYES PRN (11:20)
--- NOTE | 2021-07-01 11:52 | P.PN ---
Subjective Progress Note Date: 07/01/21 This is a very pleasant 65-year-old male patient who resides in a local [facility]. He has a history of atrial fibrillation anticoagulated with Eliquis, congestive heart failure, chronic obstructive pulmonary disease, diabetes mellitus, hypothyroidism, hypertension. He is oxygen dependent normally at 4 L/m per nasal cannula. He quit smoking approximately 4 years ago after a 50 year smoking history. He was seen here last month for COPD exacerbation. He also has a history of a recent fall with a comminuted, intra-articular left distal radius fracture with markedly deformity with a date of injury approximate 7 weeks ago. He had been seen by orthopedics. Wrist brace and Dany wrap in place. He presented here to the emergency room from the [facility] on 06/24/2021 with complaints of increasing shortness of breath and hypoxemia. His oxygen was increased to 6 L nasal cannula. His x-ray revealed bilateral pleural effusions and signs of pulmonary edema with some underlying congestive heart failure. Infection not completely excluded. White count 9.5. Hemoglobin 7.5. Platelets 225. Sodium 135. Potassium 5.4. Bicarb 28. BUN 50. Creatinine 2.82. Glucose 114. Pro-calcitonin 0.30. He had been initiated on Lasix 40 mg IV every 12 hours, DuoNeb inhalations, Pulmicort inhalations, antibiotics in the form of ceftriaxone and azithromycin. Anticoagulated with Eliquis. Last evening and this morning he developed hemoptysis were consulted today 06/30/2021. He is seen on the regular medical floor. Currently sitting up in bed. Awake and alert in no acute distress. He states he is coughing up blood denying any hematemesis. Currently maintaining O2 saturation up to 100% on 5 L/m per nasal cannula. He's been afebrile. Hemodynamically stable. No further hemoptysis since earlier this morning. The patient is seen today 07/01/2021 in follow-up on the regular medical floor. He is awake and alert in no acute distress. Resting quite comfortably in bed. Denies any worsening shortness of breath, cough or congestion. Continues to maintain O2 saturations in the 90s on 5 L/m per nasal cannula. Remains afebrile. Hemodynamically stable. Ultrasound of the bilateral chest noted. T he patient however is reluctant to have a thoracentesis performed at this time. He is stable from the pulmonary standpoint. Continue IV diuretics for now. He remains on bronchodilators and IV Solu-Medrol. No further hemoptysis. Objective - Vital Signs Vital signs: Vital Signs Temp 97.5 F L 07/01/21 07:05 Pulse 64 07/01/21 11:33 Resp 14 07/01/21 07:05 BP 144/72 07/01/21 07:05 Pulse Ox 94 L 07/01/21 07:19 Intake & Output 06/30/21 07/01/21 07/01/21 18:59 06:59 18:59 Intake Total 800 600 Balance 800 600 Weight 86.636 kg Intake: Oral 800 600 Other: Voiding Method Urinal Urinal # Voids 3 3 # Bowel Movements 2 - Exam GENERAL EXAM: Alert, pleasant 65-year-old gentleman, on 5 L nasal cannula, comfortable in no apparent distress. HEAD: Normocephalic. EYES: Normal reaction of pupils, equal size. NOSE: Clear with pink turbinates. THROAT: No erythema or exudates. NECK: No masses, no JVD. CHEST: No chest wall deformity. LUNGS: Equal air entry with crackles in the bilateral bases, diminished. CVS: S1 and S2 normal with no audible murmur, regular rhythm. ABDOMEN: No hepatosplenomegaly, normal bowel sounds, no guarding or rigidity. SPINE: No scoliosis or deformity SKIN: No rashes CENTRAL NERVOUS SYSTEM: No focal deficits, tone is normal in all 4 extremities. EXTREMITIES: Left upper extremity in a splint and Dany wrap. There is no peripheral edema. No clubbing, no cyanosis. Peripheral pulses are intact. - Labs CBC & Chem 7: 06/30/21 07:39 07/01/21 09:01 Labs: Abnormal Lab Results - Last 24 Hours (Table) 06/30/21 06/30/21 07/01/21 Range/Units 08:15 21:00 09:01 Sodium 134 L (137-145) mmol/L Potassium 5.7 H (3.5-5.1) mmol/L BUN 54 H (9-20) mg/dL Creatinine 2.79 H (0.66-1.25) mg/dL Glucose 183 H (74-99) mg/dL Iron 16 L (65-175) ug/dL TIBC 200 L (228-460) ug/dL % Saturation 8.09 L (15.00-50.00) Transferrin 143.0 L (204.0-354.0) mg/dL Urine Protein 1+ H (Negative) Urine Blood Large H (Negative) Ur Leukocyte Esterase Large H (Negative) Urine RBC 168 H (0-5) /hpf Urine WBC >182 H (0-5) /hpf Urine WBC Clumps Many H (None) /hpf Urine Bacteria Rare H (None) /hpf Urine Mucus Rare H (None) /hpf Urine Yeast (Budding) Rare H (None) /hpf Assessment and Plan Assessment: 1 Acute on chronic hypoxic respiratory failure secondary to acute exacerbation of systolic congestive heart failure, bilateral pleural effusions, mild exacerbation of COPD with tracheobronchitis and hemoptysis. Ultrasound of the chest reviewed. The patient is reluctant to have a thoracentesis at this time. Continue IV diuretics. 2 Recent fall, about 7 weeks ago, with comminuted intra-articular left distal radius fracture with marketed deformity To be followed up in the outpatient sett ing 3 Paroxysmal atrial fibrillation, anticoagulated with Eliquis 4 Sick sinus syndrome status post permanent pacemaker implantation 5 Former smoker with oxygen dependent COPD and normally on 4 L nasal cannula 6 Diabetes mellitus 7 Hyperlipidemia 8 Hypertension 9 Chronic kidney disease stage III 10 Prior history of alcoholism 11 History of previous left-sided pneumothorax requiring ThoraVent Plan: The patient was seen and evaluated Ultrasound reviewed The patient is reluctant to have a thoracentesis at this time Continue diuretics Continue bronchodilators and antibiotics No further hemoptysis Titrate down the FiO2 as tolerated We will continue to follow I, the cosigning physician, performed a history & physical examination of the patient. Lungs sounds with crackles in the bilateral bases, diminished. Maintaining good O2 saturations in the 90s on 5 liters per minute per nasal. I discussed the assessment and plan of care with my nurse practitioner, Ella alejandra. I attest to the above note as dictated by her. I have personally seen and examined the patient, performed the documentation and the assessment and plan as written. Number of minutes spent on the visit: 10.
[2021-07-01] MEDS: TAMSULOSIN 0.4 MG CAP.ER.24H PO SCH (13:11)
--- NOTE | 2021-07-01 14:10 | P.PN ---
Subjective Progress Note Date: 07/01/21 Acute on chronic kidney disease; possibly related to overdiuresis Electrolyte imbalance; hypokalemia/hypomagnesemia 65-year-old male with an extensive PMH including COPD, chronic tobacco respiratory failure on 3 L of the cannula oxygen chronic kidney disease, systolic CHF, type II DM, hypothyroidism, hypertension, hyperlipidemia, A. fib on Eliquis, who was sent in from [facility] for shortness of breath. The patient was admitted to the hospital on 05/17/2021 for hypoxic respiratory failure secondary to COPD and pneumonia from where he was discharged to [facility]. Patient reports that since this diagnosis of COVID in 08/2020 that he has had persistent shortness of breath. He notes that it is at his baseline at the time of evaluation. He reports a chronic cough with white phlegm which is unchanged. He denied chest discomfort, nausea, vomiting, abdominal pain, diarrhea, dizziness. Reports using 3-4 L of nasal cannula oxygen continuously which has not changed. In the emergency room, laboratory evaluation was remarkable for magnesium of 0.8, BUN 63, creatinine 2.47 (up from 1.4), and potassium 5.3. EKG reveals sinus rhythm with first-degree AV block at 70 bpm with right bundle branch block. Chest x-ray revealed right greater than left bibasilar acute infiltrates along with pleural effusions concerning for CHF. Patient has been placed on IV fluids in form of normal saline; nephrology is consulted and recommending to switch to lactated Ringer; plan is to continue to monitor renal function and electrolytes closely 06/27/2021 Patient is seen and evaluated in room at bedside; complains of persistent nausea with 2 episodes of vomiting since morning Vital signs are reviewed, temperature 97.9, pulse 60, respiration 19 and blood pressure 130/61 Lab review shows sodium 137, potassium 5.3, BUN/creatinine of 45/2.1 which is improved from 55/2.5 yesterday; patient is currently on IV fluids in form of lactated Ringer Chest x-ray reveals bibasilar acute infiltrate with small bilateral pleural effusions; patient denies any any cough or sputum production; we will start empirically on IV antibiotics and monitor CBC, CRP and pro-calcitonin; further recommendations pending test results 06/28/2021 Patient is seen and evaluated in follow-up currently being closely monitored. Patient is being closely monitored by nephrology along with orthopedics being consulted as patient has been seen in the past for his left wrist fracture which is currently splinted. Patient's kidney functions continue to be elevated and will continue with gentle IV hydration for now and hold diuretics. Will repeat labs and continue to monitor closely. Patient denies chest pain, worsening shortness of breath, or palpitations. Patient is afebrile. No reports of nausea or vomiting and patient is tolerating diet. 06/29/2021 Patient is seen in follow-up this morning currently working with physical therapy and continues to be extremely weak and will be returning to rehab at [facility] once stable and discharged. Patient being closely followed by nephrology closely and currently maintained on LR at 50 mL per hour and kidney functions continue to worsen. Sodium is 134, potassium is 5.5, BUN is 50 and creatinine is 2.66 and diuretics are on hold. Hemoglobin is improved at 7.7 with no active bleeding noted. Orthopedics also evaluated the patient and ordering splint for the left wrist. Chest x-ray ordered and pending. 06/30/2021 Patient is seen in follow-up today stating he does not feel well and having generalized fatigue and weakness. Nephrology following closely and kidney fun ctions continue to worsen and have resumed IV Lasix twice daily as patient was also having some fluid volume overload. Potassium mildly elevated at 5.4 today, BUN is 50, creatinine elevated at 2.82. Patient is maintained on Eliquis twice daily and having some increasing cough and congestion and reports to having hemoptysis with bright red blood noted. Patient did receive anticoagulant today. Instructed the nurse to hold anticoagulant for now and pulmonary was consulted and pending. Chest x-ray from yesterday shows bilateral pleural effusions and chest ultrasound ordered. Patient reports to one episode of hemoptysis. Hemoglobin is stable and actually improved from previous at 7.5. Patient maintained on 5 L via nasal cannula and oxygen saturations are 100%. Wean FiO2 as tolerated. Patient denies worsening shortness of breath, chest pain, or palpitations. Patient is afebrile. Patient tolerating diet with no reports of nausea or vomiting noted. Patient reports to less urine output. 07/01/2021 Patient is seen and evaluated this morning stating he is feeling somewhat improved. Patient continues on IV Lasix 40 mg twice daily and will continue and has had some minimal improvement in creatinine and nephrology following closely. Patient's potassium also elevated at 5.7 and will give a dose of low, and repeat the labs tomorrow. Patient did have a chest ultrasound ordered for possible thoracentesis with pulmonary although patient reluctant to proceed at this time and would like to continue with IV diuresis for improvement. Patient to work with physical therapy daily and states he was up and able to walk with them today. Patient does have a self-monitoring glucometer that he alerts him on his phone of his blood sugar readings and patient has been refusing Accu-Ch eks and discussed with nursing staff about continuing to document the patient's readings from his device and continue with sliding scale and his normal medications. Patient is also reporting to some right eye dryness and requesting eyedrops. Review of systems: Constitutional: reports of fatigue, no reports of fever, or chills Cardiovascular: No reports of chest pain or palpitations Respiratory: No reports of worsening shortness of breath , reports occasional cough GI: No reports of nausea, no reports of of vomiting : No reports of dysuria or retention Neurovascular: reports of generalized weakness, reports left wrist pain All medications have been reviewed Active Medications Hydrocodone Bitart/Acetaminophen (Hydrocodone/Apap 10-325mg 1 Each Tab) 1 each PO Q6HR PRN PRN Reason: Moderate Pain Last Admin: 07/01/21 10:46 Dose: 1 each Documented by: Albuterol/Ipratropium (Ipratropium-Albuterol 3 Ml Neb) 3 ml INHALATION RT-QID PRN PRN Reason: Shortness Of Breath Or Wheezing Last Admin: 06/24/21 23:16 Dose: 3 ml Documented by: Albuterol/Ipratropium (Ipratropium-Albuterol 3 Ml Neb) 3 ml INHALATION RT-QID ASHISH Last Admin: 07/01/21 11:15 Dose: 3 ml Documented by: Artificial Tears (Artificial Tears-Hypromellose Drops 15 Ml Btl) 2 drops BOTH EYES TID PRN PRN Reason: Dry Eye(s) Last Admin: 07/01/21 13:11 Dose: 2 drops Documented by: Azithromycin (Azithromycin 500 Mg Tab) 500 mg PO DAILY@1500 ASHISH Last Admin: 06/30/21 14:11 Dose: 500 mg Documented by: Budesonide (Budesonide 0.5 Mg/2 Ml Nebu) 0.5 mg INHALATION RT-BID [facility] Last Admin: 07/01/21 07:16 Dose: 0.5 mg Documented by: Darbepoetin Hubert (Darbepoetin Hubert 60 Mcg/0.3 Ml Syringe) 60 mcg SQ Q7D [facility] Last Admin: 06/30/21 21:14 Dose: 60 mcg Documented by: Dicyclomine HCl (Dicyclomine 20 Mg Tab) 20 mg PO Q8H PRN PRN Reason: IBS Last Admin: 06/24/21 23:36 Dose: 20 mg Documented by: Diphenhydramine HCl (Diphenhydramine 25 Mg Cap) 25 mg PO TID PRN PRN Reason: Itching Last Admin: 07/01/21 10:46 Dose: 25 mg Documented by: Furosemide (Furosemide 10 Mg/Ml 4 Ml Vial) 40 mg IV Q12HR [facility] Last Admin: 07/01/21 09:44 Dose: 40 mg Documented by: Ceftriaxone Sodium 1 gm/ (Sodium Chloride) 50 mls @ 100 mls/hr IVPB Q24HR [facility] Last Admin: 07/01/21 10:11 Dose: 100 mls/hr Documented by: Insulin Aspart (Insulin Aspart (Novolog) 100 Unit/Ml Vial) 0 unit SQ [id number] [facility]; Protocol Last Admin: 07/01/21 13:12 Dose: 3 unit Documented by: Levothyroxine Sodium (Levothyroxine 25 Mcg Tab) 25 mcg PO DAILY@0700 [facility] Last Admin: 07/01/21 08:14 Dose: 25 mcg Documented by: Loperamide HCl (Loperamide 2 Mg Cap) 2 mg PO Q6H PRN PRN Reason: Diarrhea Last Admin: 06/24/21 23:36 Dose: 2 mg Documented by: Methylprednisolone Sodium Succinate (Methylprednisolone Sod Succi 40 Mg/Ml 1 Ml Vial) 40 mg IV Q8HR [facility] Last Admin: 07/01/21 08:15 Dose: 40 mg Documented by: Metoprolol Succinate (Metoprolol Succinate (Er) 50 Mg Tab.Er.24h) 50 mg PO HS@2000 [facility] Last Admin: 06/30/21 20:24 Dose: 50 mg Documented by: Midodrine (Midodrine 5 Mg Tab) 10 mg PO TID [facility] Last Admin: 07/01/21 09:42 Dose: 10 mg Documented by: Naloxone HCl (Naloxone 0.4 Mg/Ml 1 Ml Vial) 0.2 mg IV Q2M PRN PRN Reason: Opioid Reversal Ondansetron HCl (Ondansetron 4 Mg Tab) 4 mg PO Q8H PRN PRN Reason: Nausea And Vomiting Last Admin: 06/27/21 11:41 Dose: 4 mg Documented by: Pantoprazole Sodium (Pantoprazole 40 Mg Tablet) 40 mg PO AC-BRKFST [facility] Last Admin: 07/01/21 08:14 Dose: 40 mg Documented by: Tamsulosin HCl (Tamsulosin 0.4 Mg Cap.Er.24h) 0.4 mg PO DAILY@1400 [facility] Last Admin: 07/01/21 13:11 Dose: 0.4 mg Documented by: PHYSICAL EXAMINATION: GENERAL: The patient is alert and oriented x3, Well developed, well nourished. Ill-appearing, appears older than stated age HEENT: Pupils are round and equally reacting to light. EOMI. does have scleral icterus. No conjunctival pallor. Normocephalic, atraumatic. No pharyngeal erythema. No thyromegaly. CARDIOVASCULAR: S1 and S2 muffled PULMONARY: diminished breath sounds bilaterally with some scattered rhonchi and crackles noted. ABDOMEN: soft. Nontender on exam. obese. non-distended, normoactive bowel sounds. No palpable organomegaly. MUSCULOSKELETAL: No joint swelling or deformity. EXTREMITIES: No cyanosis, clubbing, or pedal edema. Left wrist splint noted Dany wrapping NEUROLOGICAL: Gross neurological examination did not reveal any focal deficits. Diffuse weakness SKIN: No rashes. Assessment: Acute on chronic kidney disease possibly secondary to diuretic use Acute on chronic hypoxic respiratory failure secondary to acute on chronic systolic congestive heart failure, acute exacerbation Hyperkalemia most likely related to acute renal injury COPD, acute exacerbation Hemoptysis, one episode, on eliquis is currently on hold, no further episodes of hemoptysis noted Hypertension Hyperlipidemia hypothyroidism atrial fibrillation, paroxysmal currently rate controlled sick sinus syndrome with pacemaker placement Recent left wrist fracture status post fall 7 weeks ago showing a comminuted intra-articular left distal radius fracture with marked deformity Diabetes mellitus type 2 GI prophylaxis DVT prophylaxis Full code Plan: Recommend to continue with current medications and management. Recommend to continue with IV Lasix twice close monitoring of her kidney functions and deion ctrolytes. Potassium elevated today again at 5.7 and will give a dose of low, and repeat labs later this evening or possibly tomorrow. Patient did have chest ultrasound for possible thoracentesis although patient refusing at this time and pulmonary is following. Eliquis on hold for possible thoracentesis and will follow-up chest x-ray tomorrow and if patient continues to refuse thoracentesis will resume anticoagulant. Patient does have bilateral pleural effusions. Patient continues to have left wrist pain and orthopedics evaluated the patient and patient has a new left wrist splint. Patient to continue with breathing inhalational treatments along with Zithromax and ceftriaxone as well. She also receiving IV steroids at this time. PT/OT following and working with the patient as the patient continues with weakness. Patient will be returning to [place] was stabilized and discharged. Recommend continued Accu-Cheks before meals and at bedtime and close monitoring. Due to multiple complex medical issues, prognosis is guarded. The impression and plan of care has been dictated by Rochelle Salinas, nurse practitioner as directed. Dr. Garo MD I have performed a history and examination and MDM of this patient, discussed the same with the dictator, and agree with the dictator's assessment and plan as written ,documented as a scribe. Based on total visit time, I have performed more than 50% of the visit. Any additional findings or plans will be noted. Objective - Vital Signs Vital signs: Vital Signs Temp 97.5 F L 07/01/21 07:05 Pulse 60 07/01/21 07:33 Resp 14 07/01/21 07:05 BP 144/72 07/01/21 07:05 Pulse Ox 94 L 07/01/21 07:19 Intake & Output 06/30/21 07/01/21 07/01/21 18:59 06:59 18:59 Intake Total 800 600 Balance 800 600 Weight 86.636 kg Intake: Oral 800 600 Other: Voiding Method Urinal Urinal # Voids 3 3 # Bowel Movements 2 - Labs CBC & Chem 7: 06/30/21 07:39 07/01/21 09:01 Labs: Abnormal Lab Results - Last 24 Hours (Table) 06/30/21 06/30/21 06/30/21 Range/Units 07:39 08:15 21:00 RBC 2.50 L (4.30-5.90) m/uL Hgb 7.5 L (13.0-17.5) gm/dL Hct 25.2 L (39.0-53.0) % MCV 100.8 H (80.0-100.0) fL MCHC 29.8 L (31.0-37.0) g/dL RDW 16.0 H (11.5-15.5) % Iron 16 L (65-175) ug/dL TIBC 200 L (228-460) ug/dL % Saturation 8.09 L (15.00-50.00) Transferrin 143.0 L (204.0-354.0) mg/dL Urine Protein 1+ H (Negative) Urine Blood Large H (Negative) Ur Leukocyte Esterase Large H (Negative) Urine RBC 168 H (0-5) /hpf Urine WBC >182 H (0-5) /hpf Urine WBC Clumps Many H (None) /hpf Urine Bacteria Rare H (None) /hpf Urine Mucus Rare H (None) /hpf Urine Yeast (Budding) Rare H (None) /hpf
[2021-07-01] MEDS: AZITHROMYCIN 500 MG TAB PO SCH (16:20)
--- NOTE | 2021-07-01 19:39 | P.PN ---
Subjective Progress Note Date: 07/01/21 This patient is a 65- year old male with a past medical history of COPD on 3 L of oxygen, atrial fibrillation on Eliquis, chronic kidney disease, CHF, diabetes, hypothyroidism, hypertension, hyperlipidemia, who presented to the emergency department on 06/24/21 from [facility] with complaints of shortness of breath. Evaluation in the emergency department revealed acute kidney injury. Patient was admitted under the care of internal medicine with consults placed to nephrology. Orthopedics is consulted for evaluation of his left wrist. Patient was recently admitted on 05/17/21 for COPD and pneumonia. Orthopedics was consulted during admission due left wrist fracture. Patient was splinted in a sugar tong splint, which was later transitioned to a short arm volar splint due to patient's request. Patient was discharged to [facility] with instructions to follow-up in our office in one week for repeat x-rays and cast placement. Patient did not follow-up in our office. Patient states he was unable to follow- up in our office due to this COPD and other related issues. Patient is seen and examined bedside this morning. He states he continues to experience pain and discomfort in the wrist. He is currently in a short arm splint, which he states is the same splint that was placed during his last hospital admission. He denies new falls or injuries. He has no additional complaints. 07/01/21: Patient is seen and examined bedside. He has obtained his new wrist brace. He states the brace was uncomfortable when it was first applied, although now it has been loosened by nursing and is much more comfortable. He denies new complaints. Objective - Vital Signs Vital signs: Vital Signs Temp 97.8 F 07/01/21 12:59 Pulse 70 07/01/21 15:38 Resp 16 07/01/21 14:53 BP 137/61 07/01/21 12:59 Pulse Ox 94 L 07/01/21 12:59 Intake & Output 07/01/21 07/01/21 07/02/21 06:59 18:59 06:59 Intake Total 600 Balance 600 Intake: Oral 600 Other: Voiding Method Urinal Toilet Urinal # Voids 3 3 # Bowel Movements 2 - Exam On examination, patient is sitting up in bed in no apparent distress. He is alert and orientated x3. On inspection of the left wrist, there is a wrist brace in place. Fingers are warm and well perfused with brisk capillary refill. Motor and sensory function intact left upper extremity. - Labs CBC & Chem 7: 06/30/21 07:39 07/01/21 09:01 Labs: Abnormal Lab Results - Last 24 Hours (Table) 06/30/21 06/30/21 07/01/21 Range/Units 08:15 21:00 09:01 Sodium 134 L (137-145) mmol/L Potassium 5.7 H (3.5-5.1) mmol/L BUN 54 H (9-20) mg/dL Creatinine 2.79 H (0.66-1.25) mg/dL Glucose 183 H (74-99) mg/dL Iron 16 L (65-175) ug/dL TIBC 200 L (228-460) ug/dL % Saturation 8.09 L (15.00-50.00) Transferrin 143.0 L (204.0-354.0) mg/dL Urine Protein 1+ H (Negative) Urine Blood Large H (Negative) Ur Leukocyte Esterase Large H (Negative) Urine RBC 168 H (0-5) /hpf Urine WBC >182 H (0-5) /hpf Urine WBC Clumps Many H (None) /hpf Urine Bacteria Rare H (None) /hpf Urine Mucus Rare H (None) /hpf Urine Yeast (Budding) Rare H (None) /hpf Assessment and Plan Assessment: Comminuted, intra-articular left distal radius fracture with marked deformity, DOI 7 weeks ago Plan: - Keep wrist brace on at all times. He should keep this brace on at all times besides hygiene. It should be removed BID for skin checks. - Keep left wrist elevated for swelling and pain control. May move fingers and thumb as tolerated. - Recommend follow-up with our hand surgeon Dr. Mckeon in the office following discharge for further evaluation and treatment of the patient's left wrist.
--- NOTE | 2021-07-01 20:13 | P.PN ---
Subjective Patient is seen for follow-up for acute kidney injury on top of chronic kidney disease. Baseline creatinine around 1.4-1.5 mg/dL. Patient was admitted with shortness of breath. Currently receiving treatment for COPD exacerbation and pneumonia. Patient was maintained on IV fluids. Serum creatinine had decreased to 2.1 from 2.5. Has been slowly increasing again. 2.8 yesterday. Started IV Lasix yesterday Good UOP. No hypotension Pt remains on midodrine. SBP above 100mmHg. This morning patient states he is feeling better. He looks better as well with improved shortness of breath. Serum creatinine has also improved slightly. Currently maintained on IV Lasix Objective - Vital Signs Vital signs: Vital Signs Temp 97.8 F 07/01/21 12:59 Pulse 70 07/01/21 19:55 Resp 16 07/01/21 14:53 BP 137/61 07/01/21 12:59 Pulse Ox 97 07/01/21 19:41 Intake & Output 07/01/21 07/01/21 07/02/21 06:59 18:59 06:59 Intake Total 600 Balance 600 Intake: Oral 600 Other: Voiding Method Urinal Toilet Urinal # Voids 3 3 # Bowel Movements 2 - Exam And is awake comfortable he is not in any acute distress. examination of the heart S1 and S2 Examination lungs bilateral breath sounds are heard decreased breath sounds at the bases Abdomen is soft nontender Examination of lower extremities shows 1+ edema. left upper extremity is currently wrapped. - Labs CBC & Chem 7: 06/30/21 07:39 07/01/21 09:01 Labs: Abnormal Lab Results - Last 24 Hours (Table) 06/30/21 06/30/21 07/01/21 Range/Units 08:15 21:00 09:01 Sodium 134 L (137-145) mmol/L Potassium 5.7 H (3.5-5.1) mmol/L BUN 54 H (9-20) mg/dL Creatinine 2.79 H (0.66-1.25) mg/dL Glucose 183 H (74-99) mg/dL Iron 16 L (65-175) ug/dL TIBC 200 L (228-460) ug/dL % Saturation 8.09 L (15.00-50.00) Transferrin 143.0 L (204.0-354.0) mg/dL Urine Protein 1+ H (Negative) Urine Blood Large H (Negative) Ur Leukocyte Esterase Large H (Negative) Urine RBC 168 H (0-5) /hpf Urine WBC >182 H (0-5) /hpf Urine WBC Clumps Many H (None) /hpf Urine Bacteria Rare H (None) /hpf Urine Mucus Rare H (None) /hpf Urine Yeast (Budding) Rare H (None) /hpf Assessment and Plan Assessment: 1. Acute kidney injury possibly from volume depletion associated with diarrhea and diuretics initially. Status post IV fluids. Serum creatinine had improved but increased again mostly cardiorenal. No retention. BP not low now. Good UOP. 2. CK D stage III secondary to nephrosclerosis with creatinine baseline about 1.4 on 05/24/2021 3. Anemia, rule out iron deficiency, no active bleeding noted 4. Recent hospitalization for shortness of breath for COPD exacerbation and CHF exacerbation 5. Volume overload , acute CHF exacerbation, diastolic. Ejection fraction 50- 55% on 05/18/2021 6. Mild hyperkalemia associated with acute kidney injury. Expect improvement with continued diuresis Plan: Encourage increased oral intake. Tinea with IV Lasix. Repeat labs in a.m. Continue midodrine. Continue Aranesp UA shows significant pyuria. Patient is asymptomatic. He is already on Rocephin.
[2021-07-01] MEDS: METOPROLOL SUCCINATE (ER) 50 MG TAB.ER.24H PO SCH (20:37)
[2021-07-02] MEDS: INSULIN ASPART (NovoLOG) 100 UNIT/ML VIAL SQ SCH ×5 (02:00→21:32)
[2021-07-02] MEDS: HYDROcodone/APAP 10-325MG 1 EACH TAB PO PRN ×3 (04:26→21:28)
[2021-07-02] MEDS: diphenhydrAMINE 25 MG CAP PO PRN ×3 (04:27→21:28)
[2021-07-02] MEDS: IPRATROPIUM-ALBUTEROL 3 ML NEB INHALATION SCH ×4 (07:38→20:08)
[2021-07-02] MEDS: BUDESONIDE 0.5 MG/2 ML NEBU INHALATION SCH ×2 (07:39→20:08)
[2021-07-02] MEDS: LEVOTHYROXINE 25 MCG TAB PO SCH (08:01)
[2021-07-02] MEDS: methylPREDNISolone SOD SUCCI 40 MG/ML 1 ML VIAL IV SCH ×3 (08:02→23:40)
[2021-07-02] MEDS: PANTOPRAZOLE 40 MG TABLET PO SCH (08:02)
[2021-07-02] MEDS: MIDODRINE 5 MG TAB PO SCH ×4 (10:15→21:53)
[2021-07-02] MEDS: FUROSEMIDE 10 MG/ML 4 ML VIAL IV SCH ×2 (10:15→21:27)
--- NOTE | 2021-07-02 10:15 | P.PN ---
Subjective Patient is seen in follow-up for acute kidney injury on chronic kidney disease. Renal function fairly stable this admission. On IV Lasix. Good urine output. Currently on 5 L nasal cannula. Blood pressure stable. Oral intake fair. No vomiting or diarrhea. Vital signs are stable. General: The patient appeared well nourished and normally developed. HEENT: Head exam is unremarkable. On nasal cannula. LUNGS: Scattered rhonchi. Breath sounds decreased. HEART: Rate and Rhythm are regular. ABDOMEN: Soft, no distention. EXTREMITITES: No edema. Objective - Vital Signs Vital signs: Vital Signs Temp 97.4 F L 07/02/21 07:32 Pulse 68 07/02/21 07:55 Resp 16 07/02/21 07:32 BP 145/63 07/02/21 07:32 Pulse Ox 97 07/02/21 07:32 Intake & Output 07/01/21 07/02/21 07/02/21 18:59 06:59 18:59 Intake Total 600 Balance 600 Intake: Oral 600 Other: Voiding Method Toilet Toilet Urinal Urinal # Voids 3 2 - Labs CBC & Chem 7: 06/30/21 07:39 07/01/21 09:01 Assessment and Plan Plan: Assessment: 1. Acute kidney injury mostly prerenal initially and received IV fluids. Patient then became hypervolemic and is now on IV Lasix. Creatinine stable at 2.79 yesterday. 2. Chronic kidney disease stage IIIb. Baseline creatinine near 1.5. Etiology is nephrosclerosis and diabetic kidney disease. 3. Acute on chronic diastolic CHF. 4. Hyperkalemia secondary to chronic kidney disease. S/p sharlene 07/01/21. 5. Anemia of chronic kidney disease. Iron deficiency noted. 6. Diabetes mellitus. Plan: Maintain IV Lasix. Follow-up morning labs. Avoid nephrotoxins. Continue to monitor renal function and urine output. Add IV iron.
[2021-07-02 10:25] LABS: African American GFR (CKD) 26 (>60 ml/min/1.73 sqM); Anion Gap 4 mmol/L; Blood Urea Nitrogen 61 mg/dL (9-20); Calcium 9.5 mg/dL (8.4-10.2); Carbon Dioxide 30 mmol/L (22-30); Chloride 101 mmol/L (98-107); Glucose 232 mg/dL (74-99); Magnesium 1.4 mg/dL (1.6-2.3); Non-African American GFR(CKD) 22 (>60 ml/min/1.73 sqM); Potassium 5.1 mmol/L (3.5-5.1); Sodium 135 mmol/L (137-145)
[2021-07-02] MEDS: SODIUM FERRIC GLUCONAT-SUCROSE 125 MG in SODIUM CHLORIDE 0.9% 100 ML IVPB SCH (11:25)
[2021-07-02] MEDS ORDERED: RX INFO: IV CONTRAST WAS GIVEN 1 EACH MISC MISCELLANE PRN (12:36)
[2021-07-02] MEDS ORDERED: Magnesium Replacement Protocol 1 EACH MISC MISCELLANE PRN (12:41)
[2021-07-02] MEDS: MAGNESIUM SULFATE-D5W PMX 1 GM in DEXTROSE/WATER 1 100ML.BAG IVPB SCH ×3 (12:57→15:17)
--- NOTE | 2021-07-02 14:09 | P.PN ---
<Ella Hair - Last Filed: 07/02/21 13:53> Subjective Progress Note Date: 07/02/21 This is a very pleasant 65-year-old male patient who resides in a local long term. He has a history of atrial fibrillation anticoagulated with Eliquis, congestive heart failure, chronic obstructive pulmonary disease, diabetes mellitus, hypothyroidism, hypertension. He is oxygen dependent normally at 4 L/m per nasal cannula. He quit smoking approximately 4 years ago after a 50 year smoking history. He was seen here last month for COPD exacerbation. He also has a history of a recent fall with a comminuted, intra-articular left distal radius fracture with markedly deformity with a date of injury approximate 7 weeks ago. He had been seen by orthopedics. Wrist brace and Dany wrap in place. He presented here to the emergency room from the [facility] on 06/24/2021 with complaints of increasing shortness of breath and hypoxemia. His oxygen was increased to 6 L nasal cannula. His x-ray revealed bilateral pleural effusions and signs of pulmonary edema with some underlying congestive heart failure. Infection not completely excluded. White count 9.5. Hemoglobin 7.5. Platelets 225. Sodium 135. Potassium 5.4. Bicarb 28. BUN 50. Creatinine 2.82. Glucose 114. Pro-calcitonin 0.30. He had been initiated on Lasix 40 mg IV every 12 hours, DuoNeb inhalations, Pulmicort inhalations, antibiotics in the form of ceftriaxone and azithromycin. Anticoagulated with Eliquis. Last evening and this morning he developed hemoptysis were consulted today 06/30/2021. He is seen on the regular medical floor. Currently sitting up in bed. Awake and alert in no acute distress. He states he is coughing up blood denying any hematemesis. Currently maintaining O2 saturation up to 100% on 5 L/m per nasal cannula. He's been afebrile. Hemodynamically stable. No further hemoptysis since earlier this morning. The patient is seen today 07/01/2021 in follow-up on the regular medical floor. He is awake and alert in no acute distress. Resting quite comfortably in bed. Denies any worsening shortness of breath, cough or congestion. Continues to maintain O2 saturations in the 90s on 5 L/m per nasal cannula. Remains afebrile. Hemodynamically stable. Ultrasound of the bilateral chest noted. The patient however is reluctant to have a thoracentesis performed at this time. He is stable from the pulmonary standpoint. Continue IV diuretics for now. He remains on bronchodilators and IV Solu-Medrol. No further hemoptysis. The patient is seen today 07/02/2021 in follow-up on the regular medical floor. He is currently resting comfortably in bed. Awake and alert in no acute distress. He denies any worsening shortness of breath. Still having some issues with blood-tinged sputum. He had declined to have a thoracentesis done. Continues to maintain good O2 saturations in the 90s on 5 L/m per nasal cannula. He's been afebrile. Hemodynamically stable. Sodium 135. Potassium 5.1. BUN 61. Creatinine 2.87. Glucose 232. He is continued on DuoNeb inhalations, Pulmicort inhalations, IV Solu-Medrol. Continued on antibiotics in the form of cefepime. Objective - Vital Signs Vital signs: Vital Signs Temp 97.8 F 07/02/21 12:47 Pulse 69 07/02/21 12:47 Resp 16 07/02/21 12:47 BP 142/67 07/02/21 12:47 Pulse Ox 93 L 07/02/21 12:47 Intake & Output 07/01/21 07/02/21 07/02/21 18:59 06:59 18:59 Intake Total 600 Balance 600 Intake: Oral 600 Other: Voiding Method Toilet Toilet Urinal Urinal # Voids 3 2 - Exam GENERAL EXAM: Alert, 65-year-old gentleman, on 5 L nasal cannula, comfortable in no apparent distress. HEAD: Normocephalic. EYES: Normal reaction of pupils, equal size. NOSE: Clear with pink turbinates. THROAT: No erythema or exudates. NECK: No masses, no JVD. CHEST: No chest wall deformity. LUNGS: Equal air entry with crackles in the bilateral bases, diminished. CVS: S1 and S2 normal with no audible murmur, regular rhythm. ABDOMEN: No hepatosplenomegaly, normal bowel sounds, no guarding or rigidity. SPINE: No scoliosis or deformity SKIN: No rashes CENTRAL NERVOUS SYSTEM: No focal deficits, tone is normal in all 4 extremities. EXTREMITIES: Left upper extremity in a splint and Dany wrap. There is no peripheral edema. No clubbing, no cyanosis. Peripheral pulses are intact. - Labs CBC & Chem 7: 06/30/21 07:39 07/02/21 09:35 Labs: Abnormal Lab Results - Last 24 Hours (Table) 07/02/21 Range/Units 09:35 Sodium 135 L (137-145) mmol/L BUN 61 H (9-20) mg/dL Creatinine 2.87 H (0.66-1.25) mg/dL Glucose 232 H (74-99) mg/dL Magnesium 1.4 L (1.6-2.3) mg/dL Assessment and Plan Assessment: 1 Acute on chronic hypoxic respiratory failure secondary to acute exacerbation of systolic congestive heart failure, bilateral pleural effusions, mild exacerbation of COPD with tracheobronchitis and hemoptysis. Ultrasound of the chest reviewed. The patient is reluctant to have a thoracentesis at this time. Continue IV diuretics. 2 Recent fall, about 7 weeks ago, with comminuted intra-articular left distal radius fracture with marketed deformity To be followed up in the outpatient setting 3 Paroxysmal atrial fibrillation, anticoagulated with Eliquis 4 Sick sinus syndrome status post permanent pacemaker implantation 5 Former smoker with oxygen dependent COPD and normally on 4 L nasal cannula 6 Diabetes mellitus 7 Hyperlipidemia 8 Hypertension 9 Chronic kidney disease stage III 10 Prior history of alcoholism 11 History of previous left-sided pneumothorax requiring ThoraVent Plan: The patient was seen and evaluated Continues on 5 L nasal cannula Occasional hemoptysis We'll obtain a computed tomography scan of the chest Continue diuretics Continue bronchodilators and antibiotics Titrate down the FiO2 as tolerated We will continue to follow I, the cosigning physician, performed a history & physical examination of the patient. Lungs sounds with crackles in the bilateral bases, diminished. Maintaining good O2 saturations in the 90s on 5 liters per minute per nasal. I discussed the assessment and plan of care with my nurse practitioner, Ella zavala. I attest to the above note as dictated by her. I have personally seen and examined the patient, performed the documentation and the assessment and plan as written. Number of minutes spent on the visit: 10. <Tracey Reyes - Last Filed: 07/02/21 19:17> Objective - Vital Signs Vital signs: Vital Signs Temp 97.8 F 07/02/21 12:47 Pulse 68 07/02/21 15:39 Resp 16 07/02/21 12:47 BP 142/67 07/02/21 12:47 Pulse Ox 93 L 07/02/21 12:47 Intake & Output 07/02/21 07/02/21 07/03/21 06:59 18:59 06:59 Intake Total 600 680 Output Total 700 Balance 600 -20 Intake: Oral 600 680 Output: Urine 700 Other: Voiding Method Toilet Urinal # Voids 2 2 - Labs CBC & Chem 7: 06/30/21 07:39 07/02/21 09:35 Labs: Abnormal Lab Results - Last 24 Hours (Table) 07/02/21 Range/Units 09:35 Sodium 135 L (137-145) mmol/L BUN 61 H (9-20) mg/dL Creatinine 2.87 H (0.66-1.25) mg/dL Glucose 232 H (74-99) mg/dL Magnesium 1.4 L (1.6-2.3) mg/dL Microbiology - Last 24 Hours (Table) 07/02/21 13:37 Sputum Culture - Preliminary Sputum Assessment and Plan Assessment: A joint evaluation that was done along with nurse practitioner. This evaluation was done more than 20 minutes. Evaluated the patient. Concerned of a pleural effusion on ongoing pneumonia. CAT scan of the chest was done that showed bilateral pleural effusion right more than left. Based on that, and planning to the thoracentesis on this patient for tomorrow. For other details, see above. Patient remains on 5 L of oxygen by nasal cannula. He continues to have a congested cough. Renal function is impaired chronically and the patient has stage III kidney disease. Time with Patient: Less than 30
[2021-07-02] MEDS: TAMSULOSIN 0.4 MG CAP.ER.24H PO SCH (14:59)
--- NOTE | 2021-07-02 15:40 | CT ---
EXAMINATION TYPE: CT chest wo con DATE OF EXAM: 07/02/2021 INDICATION: ROHINI, hypomagnesia, hx of mass, JANEY CT DLP: 1110.8 mGy.cm Automated Exposure Control for Dose Reduction was Utilized. TECHNIQUE AND CONTRAST: Multiplanar CT scan of the chest without IV contrast administration. COMPARISON: CT dated 03/30/2020 FINDINGS: Large right and moderate left free pleural effusions. Bilateral lower lobe subsegmental pulmonary ate lectasis, associated infection can't be excluded. Small atelectasis is also seen in the inguinal base . Grossly unremarkable lungs otherwise. Patent trachea and main bronchi. No sizable pericardial effus ion. Cardiomegaly, please correlate with echocardiographic results. Left upper chest wall dual-lead pacema ker. Scattered arterial atherosclerotic calcifications with coronary arterial calcifications. The pul monary trunk measures 3.7 cm which may suggest pulmonary hypertension. The ascending aorta measures 4 .4 cm. Scattered subcentimeter mediastinal lymph nodes measuring up to 9 mm. No pathologically enlarged lymp h nodes in the chest. Suspected previous left hepatic lobectomy. Bilateral perinephric fat stranding and reactive fluid, nonspecific. Colonic diverticulosis seen in the upper abdomen. Scattered old heal ed fractures of the left ribs. IMPRESSION: Cardiomegaly with bilateral pleural effusions and subsegmental pulmonary atelectasis as described abo ve, please correlate clinically for congestive heart failure and associated pulmonary edema. Associat ed lung infection cannot be excluded. Please note that a small lung lesion in the collapsed portion of the lungs cannot be excluded by this CT scan. Other incidental findings as described above.
[2021-07-02] MEDS: CEFEPIME 2 GM in SODIUM CHLORIDE 0.9% 100 ML IVPB SCH (16:23)
[2021-07-02 20:50] LABS: Glucose,Whole Blood 297 mg/dL (75-99)
[2021-07-02] MEDS: METOPROLOL SUCCINATE (ER) 50 MG TAB.ER.24H PO SCH (21:28)
--- NOTE | 2021-07-03 00:59 | P.PN ---
Subjective Progress Note Date: 07/02/21 Acute on chronic kidney disease; possibly related to overdiuresis Electrolyte imbalance; hypokalemia/hypomagnesemia 65-year-old male with an extensive PMH including COPD, chronic tobacco respiratory failure on 3 L of the cannula oxygen chronic kidney disease, systolic CHF, type II DM, hypothyroidism, hypertension, hyperlipidemia, A. fib on Eliquis, who was sent in from [facility] for shortness of breath. The patient was admitted to the hospital on 05/17/2021 for hypoxic respiratory failure secondary to COPD and pneumonia from where he was discharged to [facility]. Patient reports that since this diagnosis of COVID in 08/2020 that he has had persistent shortness of breath. He notes that it is at his baseline at the time of evaluation. He reports a chronic cough with white phlegm which is unchanged. He denied chest discomfort, nausea, vomiting, abdominal pain, diarrhea, dizziness. Reports using 3-4 L of nasal cannula oxygen continuously which has not changed. In the emergency room, laboratory evaluation was remarkable for magnesium of 0.8, BUN 63, creatinine 2.47 (up from 1.4), and potassium 5.3. EKG reveals sinus rhythm with first-degree AV block at 70 bpm with right bundle branch block. Chest x-ray revealed right greater than left bibasilar acute infiltrates along with pleural effusions concerning for CHF. Patient has been placed on IV fluids in form of normal saline; nephrology is consulted and recommending to switch to lactated Ringer; plan is to continue to monitor renal function and electrolytes closely 06/27/2021 Patient is seen and evaluated in room at bedside; complains of persistent nausea with 2 episodes of vomiting since morning Vital signs are reviewed, temperature 97.9, pulse 60, respiration 19 and blood pressure 130/61 Lab review shows sodium 137, potassium 5.3, BUN/creatinine of 45/2.1 which is improved from 55/2.5 yesterday; patient is currently on IV fluids in form of lactated Ringer Chest x-ray reveals bibasilar acute infiltrate with small bilateral pleural effusions; patient denies any any cough or sputum production; we will start empirically on IV antibiotics and monitor CBC, CRP and pro-calcitonin; further recommendations pending test results 06/28/2021 Patient is seen and evaluated in follow-up currently being closely monitored. Patient is being closely monitored by nephrology along with orthopedics being consulted as patient has been seen in the past for his left wrist fracture which is currently splinted. Patient's kidney functions continue to be elevated and will continue with gentle IV hydration for now and hold diuretics. Will repeat labs and continue to monitor closely. Patient denies chest pain, worsening shortness of breath, or palpitations. Patient is afebrile. No reports of nausea or vomiting and patient is tolerating diet. 06/29/2021 Patient is seen in follow-up this morning currently working with physical therapy and continues to be extremely weak and will be returning to rehab at [facility] once stable and discharged. Patient being closely followed by nephrology closely and currently maintained on LR at 50 mL per hour and kidney functions continue to worsen. Sodium is 134, potassium is 5.5, BUN is 50 and creatinine is 2.66 and diuretics are on hold. Hemoglobin is improved at 7.7 with no active bleeding noted. Orthopedics also evaluated the patient and ordering splint for the left wrist. Chest x-ray ordered and pending. 06/30/2021 Patient is seen in follow-up today stating he does not feel well and having generalized fatigue and weakness. Nephrology following closely and kidney fun ctions continue to worsen and have resumed IV Lasix twice daily as patient was also having some fluid volume overload. Potassium mildly elevated at 5.4 today, BUN is 50, creatinine elevated at 2.82. Patient is maintained on Eliquis twice daily and having some increasing cough and congestion and reports to having hemoptysis with bright red blood noted. Patient did receive anticoagulant today. Instructed the nurse to hold anticoagulant for now and pulmonary was consulted and pending. Chest x-ray from yesterday shows bilateral pleural effusions and chest ultrasound ordered. Patient reports to one episode of hemoptysis. Hemoglobin is stable and actually improved from previous at 7.5. Patient maintained on 5 L via nasal cannula and oxygen saturations are 100%. Wean FiO2 as tolerated. Patient denies worsening shortness of breath, chest pain, or palpitations. Patient is afebrile. Patient tolerating diet with no reports of nausea or vomiting noted. Patient reports to less urine output. 07/01/2021 Patient is seen and evaluated this morning stating he is feeling somewhat improved. Patient continues on IV Lasix 40 mg twice daily and will continue and has had some minimal improvement in creatinine and nephrology following closely. Patient's potassium also elevated at 5.7 and will give a dose of low, and repeat the labs tomorrow. Patient did have a chest ultrasound ordered for possible thoracentesis with pulmonary although patient reluctant to proceed at this time and would like to continue with IV diuresis for improvement. Patient to work with physical therapy daily and states he was up and able to walk with them today. Patient does have a self-monitoring glucometer that he alerts him on his phone of his blood sugar readings and patient has been refusing Accu-Ch eks and discussed with nursing staff about continuing to document the patient's readings from his device and continue with sliding scale and his normal medications. Patient is also reporting to some right eye dryness and requesting eyedrops. 07/02/2021 Patient is seen today and continues with a wet congested cough and continues to report hemoptysis. Pulmonary and nephrology following and patient continues with elevated kidney functions although appears stable and is maintained on twice daily IV lasix. Potassium trending down after receiving Lokelma. Pulmonary following as well and CT of the chest is ordered for the continued bilateral effusions. Patient started on IV cefepime while awaiting sputum cultures. Splint noted to the left wrist with no further complaints of increased pain at this time. Patient is lethargic on exam. Patient denies worsening shortness of breath and reports to breathing somewhat better. Patient for possible thoracentesis on the right although originally reluctant to move forward with the procedure. Eliquis on hold for this and the continued hemoptysis. Hemoglobin is stable. Iron studies also low and will receive IV Ferriclit. Labs noted with Magnesium to be 1.4. Will replace and repeat am labs. Review of systems: Constitutional: reports of fatigue, no reports of fever, or chills Cardiovascular: No reports of chest pain or palpitations Respiratory: No reports of worsening shortness of breath , reports continued cough and blood GI: No reports of nausea, no reports of of vomiting : No reports of dysuria or retention Neurovascular: reports of generalized weakness, reports left wrist pain All medications have been reviewed Active Medications Hydrocodone Bitart/Acetaminophen (Hydrocodone/Apap 10-325mg 1 Each Tab) 1 each PO Q6HR PRN PRN Reason: Moderate Pain Last Admin: 07/02/21 21:28 Dose: 1 each Documented by: Albuterol/Ipratropium (Ipratropium-Albuterol 3 Ml Neb) 3 ml INHALATION RT-QID PRN PRN Reason: Shortness Of Breath Or Wheezing Last Admin: 06/24/21 23:16 Dose: 3 ml Documented by: Albuterol/Ipratropium (Ipratropium-Albuterol 3 Ml Neb) 3 ml INHALATION RT-QID ASHISH Last Admin: 07/02/21 20:08 Dose: 3 ml Documented by: Artificial Tears (Artificial Tears-Hypromellose Drops 15 Ml Btl) 2 drops BOTH EYES TID PRN PRN Reason: Dry Eye(s) Last Admin: 07/01/21 13:11 Dose: 2 drops Documented by: Budesonide (Budesonide 0.5 Mg/2 Ml Nebu) 0.5 mg INHALATION RT-BID ASHISH Last Admin: 07/02/21 20:08 Dose: 0.5 mg Documented by: Darbepoetin Hubert (Darbepoetin Hubert 60 Mcg/0.3 Ml Syringe) 60 mcg SQ Q7D ASHISH Last Admin: 06/30/21 21:14 Dose: 60 mcg Documented by: Dicyclomine HCl (Dicyclomine 20 Mg Tab) 20 mg PO Q8H PRN PRN Reason: IBS Last Admin: 06/24/21 23:36 Dose: 20 mg Documented by: Diphenhydramine HCl (Diphenhydramine 25 Mg Cap) 25 mg PO TID PRN PRN Reason: Itching Last Admin: 07/02/21 21:28 Dose: 25 mg Documented by: Furosemide (Furosemide 10 Mg/Ml 4 Ml Vial) 40 mg IV Q12HR ASHISH Last Admin: 07/02/21 21:27 Dose: 40 mg Documented by: Ferric Sodium Gluconate 125 mg (/ Sodium Chloride) 110 mls @ 100 mls/hr IVPB DAILY ASHISH Stop: 07/05/21 11:01 Last Admin: 07/02/21 11:25 Dose: 100 mls/hr Documented by: Cefepime HCl 2 gm/ Sodium (Chloride) 100 mls @ 25 mls/hr IVPB Q12H ASHISH; Protocol Last Admin: 07/02/21 16:23 Dose: 25 mls/hr Documented by: Insulin Aspart (Insulin Aspart (Novolog) 100 Unit/Ml Vial) 0 unit SQ [id number] ASHISH; Protocol Last Admin: 07/02/21 21:32 Dose: 5 unit Documented by: Levothyroxine Sodium (Levothyroxine 25 Mcg Tab) 25 mcg PO DAILY@0700 [facility] Last Admin: 07/02/21 08:01 Dose: 25 mcg Documented by: Loperamide HCl (Loperamide 2 Mg Cap) 2 mg PO Q6H PRN PRN Reason: Diarrhea Last Admin: 06/24/21 23:36 Dose: 2 mg Documented by: Methylprednisolone Sodium Succinate (Methylprednisolone Sod Succi 40 Mg/Ml 1 Ml Vial) 40 mg IV Q8HR [facility] Last Admin: 07/02/21 23:40 Dose: 40 mg Documented by: Metoprolol Succinate (Metoprolol Succinate (Er) 50 Mg Tab.Er.24h) 50 mg PO HS@2000 [facility] Last Admin: 07/02/21 21:28 Dose: 50 mg Documented by: Midodrine (Midodrine 5 Mg Tab) 10 mg PO TID [facility] Last Admin: 07/02/21 21:53 Dose: Not Given Documented by: Miscellaneous Information (Rx Info: Iv Contrast Was Given 1 Each Misc) 1 each MISCELLANE DAILY PRN PRN Reason: Per Protocol Stop: 07/04/21 12:37 Miscellaneous Information (Magnesium Replacement Protocol 1 Each Misc) 1 each MISCELLANE DAILY PRN; Protocol PRN Reason: Per Protocol Naloxone HCl (Naloxone 0.4 Mg/Ml 1 Ml Vial) 0.2 mg IV Q2M PRN PRN Reason: Opioid Reversal Ondansetron HCl (Ondansetron 4 Mg Tab) 4 mg PO Q8H PRN PRN Reason: Nausea And Vomiting Last Admin: 06/27/21 11:41 Dose: 4 mg Documented by: Pantoprazole Sodium (Pantoprazole 40 Mg Tablet) 40 mg PO AC-BRKFST [facility] Last Admin: 07/02/21 08:02 Dose: 40 mg Documented by: Tamsulosin HCl (Tamsulosin 0.4 Mg Cap.Er.24h) 0.4 mg PO DAILY@1400 [facility] Last Admin: 07/02/21 14:59 Dose: 0.4 mg Documented by: PHYSICAL EXAMINATION: GENERAL: The patient is alert and oriented x3, Well developed, well nourished. Ill-appearing, appears older than stated age HEENT: Pupils are round and equally reacting to light. EOMI. does have scleral icterus. No conjunctival pallor. Normocephalic, atraumatic. No pharyngeal erythema. No thyromegaly. CARDIOVASCULAR: S1 and S2 muffled PULMONARY: diminished breath sounds bilaterally with some scattered rhonchi and crackles noted. hemoptysis ABDOMEN: soft. Nontender on exam. obese. non-distended, normoactive bowel sounds. No palpable organomegaly. MUSCULOSKELETAL: No joint swelling or deformity. EXTREMITIES: No cyanosis, clubbing, or pedal edema. Left wrist splint noted NEUROLOGICAL: Gross neurological examination did not reveal any focal deficits. Diffuse weakness SKIN: No rashes. fraille, thin skin with multiple areas of discoloration noted to upper extremities Assessment: Acute on chronic kidney disease possibly secondary to diuretic use Acute on chronic hypoxic respiratory failure secondary to acute on chronic systolic congestive heart failure, acute exacerbation Bilateral pleural effusions right greater than left Hyperkalemia most likely related to acute renal injury COPD, acute exacerbation hypomagnesemia Hemoptysis, on eliquis is currently on hold, persisting Hypertension Hyperlipidemia hypothyroidism atrial fibrillation, paroxysmal currently rate controlled sick sinus syndrome with pacemaker placement Recent left wrist fracture status post fall 7 weeks ago showing a comminuted intra-articular left distal radius fracture with marked deformity Diabetes mellitus type 2 GI prophylaxis DVT prophylaxis Full code Plan: Recommend to continue with current medications and management. Recommend to continue with IV Lasix twice close monitoring of kidney functions and electrolytes. Potassium elevated although improved after lokelma given. Kidney functions stable. Iron studies low and receiving IV Iron infusions. Patient had repeat chest ct done today which continues to demonstrate bilateral pleural effusions, right greater than left and pulmonary is following. Patient will undergo thoracentesis tomorrow and is now agreeable to the procedure. Patient continues on IV steroids as well. Eliquis remains on hold for persistent hemoptysis and the procedure for tomorrow. Concern for possible infectious process also noted on the CT and patient was placed on IV cefepime and sputum culture pending. Patient has no white count and is afebrile. Patient has just completed a full course of zithromax and ceftriaxone that was started on admission. Will order repeat labs and procalcitonin. PT/OT following and working with the patient as the patient continues with weakness. Patient will be returning to [place] was stabilized and discharged. Recommend continued monitoring of blood sugars from patients personal wearing device that detects and reports glucose levels before meals and at bedtime and continue sliding scale. Due to multiple complex medical issues, prognosis is guarded. The impression and plan of care has been dictated by Rochelle Salinas, nurse practitioner as directed. Dr. Garo MD I have performed a history and examination and MDM of this patient, discussed the same with the dictator, and agree with the dictator's assessment and plan as written ,documented as a scribe. Based on total visit time, I have performed more than 50% of the visit. Any additional findings or plans will be noted. Objective - Vital Signs Vital signs: Vital Signs Temp 97.4 F L 07/02/21 07:32 Pulse 68 07/02/21 07:55 Resp 16 07/02/21 07:32 BP 145/63 07/02/21 07:32 Pulse Ox 97 07/02/21 07:32 Intake & Output 07/01/21 07/02/21 07/02/21 18:59 06:59 18:59 Intake Total 600 Balance 600 Intake: Oral 600 Other: Voiding Method Toilet Toilet Urinal Urinal # Voids 3 2 - Labs CBC & Chem 7: 06/30/21 07:39 07/02/21 09:35 Labs: Abnormal Lab Results - Last 24 Hours (Table) 07/01/21 Range/Units 09:01 Sodium 134 L (137-145) mmol/L Potassium 5.7 H (3.5-5.1) mmol/L BUN 54 H (9-20) mg/dL Creatinine 2.79 H (0.66-1.25) mg/dL Glucose 183 H (74-99) mg/dL
[2021-07-03] MEDS: INSULIN ASPART (NovoLOG) 100 UNIT/ML VIAL SQ SCH ×6 (03:00→20:05)
[2021-07-03] MEDS: CEFEPIME 2 GM in SODIUM CHLORIDE 0.9% 100 ML IVPB SCH ×2 (03:01→13:36)
[2021-07-03] MEDS: HYDROcodone/APAP 10-325MG 1 EACH TAB PO PRN ×3 (05:06→22:39)
[2021-07-03] MEDS: diphenhydrAMINE 25 MG CAP PO PRN ×3 (05:12→22:40)
[2021-07-03] MEDS: IPRATROPIUM-ALBUTEROL 3 ML NEB INHALATION SCH ×4 (07:20→19:44)
[2021-07-03] MEDS: BUDESONIDE 0.5 MG/2 ML NEBU INHALATION SCH ×2 (07:21→19:44)
[2021-07-03 07:43] LABS: Basophils % (A) 0 %; Eosinophils % (A) 0 %; HCT 25.9 % (39.0-53.0); HGB 7.7 gm/dL (13.0-17.5); Hypochromasia Marked; Lymphocytes # (A) 0.4 k/uL (1.0-4.8); Lymphocytes % (A) 6 %; MCH 29.9 pg (25.0-35.0); MCHC 29.7 g/dL (31.0-37.0); MCV 100.9 fL (80.0-100.0); Macrocytosis Slight; Mean Platelet Volume 8.1; Monocytes # (A) 0.2 k/uL (0-1.0); Monocytes % (A) 4 %; Neutrophils # (A) 5.7 k/uL (1.3-7.7); Neutrophils % (A) 90 %; Platelet Count 251 k/uL (150-450); RBC 2.57 m/uL (4.30-5.90); WBC 6.4 k/uL (3.8-10.6)
[2021-07-03] MEDS: MIDODRINE 5 MG TAB PO SCH ×3 (09:52→22:42)
[2021-07-03] MEDS: FUROSEMIDE 10 MG/ML 4 ML VIAL IV SCH ×2 (09:53→20:05)
[2021-07-03] MEDS: SODIUM FERRIC GLUCONAT-SUCROSE 125 MG in SODIUM CHLORIDE 0.9% 100 ML IVPB SCH (09:53)
[2021-07-03] MEDS: methylPREDNISolone SOD SUCCI 40 MG/ML 1 ML VIAL IV SCH ×2 (09:53→15:34)
[2021-07-03] MEDS: LEVOTHYROXINE 25 MCG TAB PO SCH (09:54)
[2021-07-03] MEDS: PANTOPRAZOLE 40 MG TABLET PO SCH (09:54)
--- NOTE | 2021-07-03 10:52 | P.PCN ---
Date of Procedure: 07/03/21 Preoperative Diagnosis: right, pleural effusion Postoperative Diagnosis: Right-sided pleural effusion Procedure(s) Performed: Right-sided thoracentesis Anesthesia: local Surgeon: Tracey Reyes Estimated Blood Loss (ml): 0 Pathology: other Condition: stable Disposition: floor Operative Findings: A time out was performed and the chest x-ray was reviewed, the appropriate side was confirmed and marked. My hands were washed immediately prior to the procedure. I wore a surgical cap, mask with protective eyewear, sterile gown and sterile gloves throughout the procedure. The patient was prepped and draped in a sterile manner using chlorhexidine scrub after the appropriate level was percussed and confirmed by ultrasound. 1% lidocaine was used to anesthesize the skin, subcutaneous tissue, superior aspect of the rib periosteum and parietal pleura. A finder needle was then introduced over the superior aspect of the rib to locate the pleural fluid; 2colored fluid was aspirated at a depth of approximately 2 cm. A 10-blade scalpel was used to nery the skin at the insertion site. The [id number] needle was then introduced through the skin incision into the pleural space using negative aspiration pressure and the red colometric indicator to confirm appropriate positioning of the needle. The thoracentesis catheter was then threaded without difficulty. 700 ml of turbid colored fluid was removed without difficulty. The catheter was then removed. No immediate complications were noted during the procedure. A post-procedure chest x-ray is pending at the time of this note. The fluid will be sent for studies. Estimated blood loss is 0cc
--- NOTE | 2021-07-03 11:19 | XR ---
EXAMINATION TYPE: XR chest 1V DATE OF EXAM: 07/03/2021 COMPARISON: Chest x-ray 06/29/2021 HISTORY: Status post thoracentesis TECHNIQUE: Single frontal view of the chest is obtained. FINDINGS: Bibasilar increased attenuation is present, suspect some improvement in aeration at the [facility] lung base. No evident pneumothorax. Patient is rotated. Cardiac mediastinal silhouette is stable. Pacemaker is stable. IMPRESSION: No evident complication status post thoracentesis.
--- NOTE | 2021-07-03 12:46 | P.PN ---
<Ella Hair - Last Filed: 07/03/21 12:34> Subjective Progress Note Date: 07/03/21 This is a very pleasant 65-year-old male patient who resides in a local senior care. He has a history of atrial fibrillation anticoagulated with Eliquis, congestive heart failure, chronic obstructive pulmonary disease, diabetes mellitus, hypothyroidism, hypertension. He is oxygen dependent normally at 4 L/m per nasal cannula. He quit smoking approximately 4 years ago after a 50 year smoking history. He was seen here last month for COPD exacerbation. He also has a history of a recent fall with a comminuted, intra-articular left distal radius fracture with markedly deformity with a date of injury approximate 7 weeks ago. He had been seen by orthopedics. Wrist brace and Dany wrap in place. He presented here to the emergency room from the [facility] on 06/24/2021 with complaints of increasing shortness of breath and hypoxemia. His oxygen was increased to 6 L nasal cannula. His x-ray revealed bilateral pleural effusions and signs of pulmonary edema with some underlying congestive heart failure. Infection not completely excluded. White count 9.5. Hemoglobin 7.5. Platelets 225. Sodium 135. Potassium 5.4. Bicarb 28. BUN 50. Creatinine 2.82. Glucose 114. Pro-calcitonin 0.30. He had been initiated on Lasix 40 mg IV every 12 hours, DuoNeb inhalations, Pulmicort inhalations, antibiotics in the form of ceftriaxone and azithromycin. Anticoagulated with Eliquis. Last evening and this morning he developed hemoptysis were consulted today 06/30/2021. He is seen on the regular medical floor. Currently sitting up in bed. Awake and alert in no acute distress. He states he is coughing up blood denying any hematemesis. Currently maintaining O2 saturation up to 100% on 5 L/m per nasal cannula. He's been afebrile. Hemodynamically stable. No further hemoptysis since earlier this morning. The patient is seen today 07/01/2021 in follow-up on the regular medical floor. He is awake and alert in no acute distress. Resting quite comfortably in bed. Denies any worsening shortness of breath, cough or congestion. Continues to maintain O2 saturations in the 90s on 5 L/m per nasal cannula. Remains afebrile. Hemodynamically stable. Ultrasound of the bilateral chest noted. The patient however is reluctant to have a thoracentesis performed at this time. He is stable from the pulmonary standpoint. Continue IV diuretics for now. He remains on bronchodilators and IV Solu-Medrol. No further hemoptysis. The patient is seen today 07/02/2021 in follow-up on the regular medical floor. He is currently resting comfortably in bed. Awake and alert in no acute distress. He denies any worsening shortness of breath. Still having some issues with blood-tinged sputum. He had declined to have a thoracentesis done. Continues to maintain good O2 saturations in the 90s on 5 L/m per nasal cannula. He's been afebrile. Hemodynamically stable. Sodium 135. Potassium 5.1. BUN 61. Creatinine 2.87. Glucose 232. He is continued on DuoNeb inhalations, Pulmicort inhalations, IV Solu-Medrol. Continued on antibiotics in the form of cefepime. The patient is seen today 07/03/2021 in follow-up on the regular medical floor. He is awake and alert in no acute distress. He is maintaining O2 saturations in the low 90s on 5 L high flow nasal cannula. Afebrile. Hemodynamically stable. CAT scan revealed evidence of cardiomegaly with bilateral pleural effusion and subsegmental pulmonary atelectasis. He did undergo a right-sided thoracentesis today with 700 mL of bloody fluid removed. Cytology and fluid analysis pending. Follow-up chest x-ray revealed no evidence of pneumothorax. There is improved aeration of the right lung base. Sputum culture pending. White count 6.4. Hemoglobin 7.7. Platelets 251. He is continued on DuoNeb inhalations, Pulmicort inhalations, IV Solu-Medrol. Continued on IV diuretics. Objective - Vital Signs Vital signs: Vital Signs Temp 97.6 F 07/03/21 11:13 Pulse 80 07/03/21 11:32 Resp 20 07/03/21 11:13 BP 135/74 07/03/21 11:13 Pulse Ox 92 L 07/03/21 11:13 Intake & Output 07/02/21 07/03/21 07/03/21 18:59 06:59 18:59 Intake Total 680 340 Output Total 700 850 Balance -20 510 Weight 95.708 kg Intake: Intake, IV Titration 100 Amount Cefepime 2 gm In Sodium 100 Chloride 0.9% 100 ml @ 25 mls/hr IVPB Q12H [facility] Rx# :[id number] Oral 680 240 Output: Urine 700 850 Other: Voiding Method Urinal # Voids 2 # Bowel Movements 1 - Exam GENERAL EXAM: Alert, 65-year-old gentleman, on 5 L nasal cannula, comfortable in no apparent distress. HEAD: Normocephalic. EYES: Normal reaction of pupils, equal size. NOSE: Clear with pink turbinates. THROAT: No erythema or exudates. NECK: No masses, no JVD. CHEST: No chest wall deformity. LUNGS: Equal air entry with crackles in the bilateral bases, right greater than left, diminished. CVS: S1 and S2 normal with no audible murmur, regular rhythm. ABDOMEN: No hepatosplenomegaly, normal bowel sounds, no guarding or rigidity. SPINE: No scoliosis or deformity SKIN: No rashes CENTRAL NERVOUS SYSTEM: No focal deficits, tone is normal in all 4 extremities. EXTREMITIES: Left upper extremity in a splint and Dany wrap. There is no peripheral edema. No clubbing, no cyanosis. Peripheral pulses are intact. - Labs CBC & Chem 7: 07/03/21 07:17 07/02/21 09:35 Labs: Abnormal Lab Results - Last 24 Hours (Table) 07/02/21 07/03/21 Range/Units 20:48 07:17 RBC 2.57 L (4.30-5.90) m/uL Hgb 7.7 L (13.0-17.5) gm/dL Hct 25.9 L (39.0-53.0) % MCV 100.9 H (80.0-100.0) fL MCHC 29.7 L (31.0-37.0) g/dL RDW 16.0 H (11.5-15.5) % Lymphocytes # 0.4 L (1.0-4.8) k/uL POC Glucose (mg/dL) 297 H (75-99) mg/dL Microbiology - Last 24 Hours (Table) 07/02/21 13:37 Gram Stain - Preliminary Sputum Sputum Culture - Preliminary Assessment and Plan Assessment: 1 Acute on chronic hypoxic respiratory failure secondary to acute exacerbation of systolic congestive heart failure, bilateral pleural effusions, mild exacerbation of COPD with tracheobronchitis and hemoptysis. Computed tomography scan of the chest reviewed. He did undergo a right-sided thoracentesis today with 700 L of bloody fluid removed. Cytology and fluid analysis pending. Continue IV diuretics. 2 Recent fall, about 7 weeks ago, with comminuted intra-articular left distal radius fracture with marketed deformity To be followed up in the outpatient setting 3 Paroxysmal atrial fibrillation, anticoagulated with Eliquis 4 Sick sinus syndrome status post permanent pacemaker implantation 5 Former smoker with oxygen dependent COPD and normally on 4 L nasal cannula 6 Diabetes mellitus 7 Hyperlipidemia 8 Hypertension 9 Chronic kidney disease stage III 10 Prior history of alcoholism 11 History of previous left-sided pneumothorax requiring ThoraVent Plan: The patient was seen and evaluated Computed tomography scan of the chest reviewed Right-sided thoracentesis performed with 700 mL of dark bloody fluid removed Fluid analysis and cytology are pending Resume Eliquis Continue diuretics Continue bronchodilators and cefepime Titrate down the FiO2 as tolerated We will continue to follow I, the cosigning physician, performed a history & physical examination of the patient. Lungs sounds with crackles in the bilateral bases, right greater than left, diminished. Maintaining good O2 saturations in the 90s on 5 liters per minute per nasal canula. I discussed the assessment and plan of care with my nurse practitioner, Ella Hair. I attest to the above note as dictated by her. I have personally seen and examined the patient, performed the documentation and the assessment and plan as written. Number of minutes spent on the visit: 10. <Tracey Reyes - Last Filed: 07/03/21 13:46> Objective - Vital Signs Vital signs: Vital Signs Temp 97.6 F 07/03/21 11:13 Pulse 80 07/03/21 11:32 Resp 20 07/03/21 11:13 BP 135/74 07/03/21 11:13 Pulse Ox 92 L 07/03/21 11:13 Intake & Output 07/02/21 07/03/21 07/03/21 18:59 06:59 18:59 Intake Total 680 340 Output Total 700 850 Balance -20 -510 Weight 95.708 kg Intake: Intake, IV Titration 100 Amount Cefepime 2 gm In Sodium 100 Chloride 0.9% 100 ml @ 25 mls/hr IVPB Q12H [facility] Rx# :[id number] Oral 680 240 Output: Urine 700 850 Other: Voiding Method Urinal # Voids 2 # Bowel Movements 1 - Labs CBC & Chem 7: 07/03/21 07:17 07/02/21 09:35 Labs: Abnormal Lab Results - Last 24 Hours (Table) 07/02/21 07/03/21 Range/Units 20:48 07:17 RBC 2.57 L (4.30-5.90) m/uL Hgb 7.7 L (13.0-17.5) gm/dL Hct 25.9 L (39.0-53.0) % MCV 100.9 H (80.0-100.0) fL MCHC 29.7 L (31.0-37.0) g/dL RDW 16.0 H (11.5-15.5) % Lymphocytes # 0.4 L (1.0-4.8) k/uL POC Glucose (mg/dL) 297 H (75-99) mg/dL Microbiology - Last 24 Hours (Table) 07/02/21 13:37 Gram Stain - Preliminary Sputum Sputum Culture - Preliminary Assessment and Plan Assessment: I have personally seen and examined the patient and reviewed the documentation. I performed a joint evaluation with the nurse practitioner in this evaluation was done more than 20 minutes. I fully agree with the documentation above and the plan of care. Time with Patient: Less than 30
[2021-07-03] MEDS: TAMSULOSIN 0.4 MG CAP.ER.24H PO SCH (13:36)
[2021-07-03 14:07] LABS: African American GFR (CKD) 26.4 (60.0-200.0); Anion Gap 9.8 mmol/L (10.00-18.00); BUN/Creat Ratio 21.07 Ratio (12.00-20.00); Calcium 9.5 mg/dL (8.7-10.3); Carbon Dioxide 27.2 mmol/L (20.0-27.5); Magnesium 2.1 mg/dL (1.5-2.4); Non-African American GFR(CKD) 22.8 (60.0-200.0); Potassium 5.1 mmol/L (3.5-5.5)
--- NOTE | 2021-07-03 14:44 | P.PN ---
Subjective Progress Note Date: 07/03/21 Acute on chronic kidney disease; possibly related to overdiuresis Electrolyte imbalance; hypokalemia/hypomagnesemia 65-year-old male with an extensive PMH including COPD, chronic tobacco respiratory failure on 3 L of the cannula oxygen chronic kidney disease, systolic CHF, type II DM, hypothyroidism, hypertension, hyperlipidemia, A. fib on Eliquis, who was sent in from [facility] for shortness of breath. The patient was admitted to the hospital on 05/17/2021 for hypoxic respiratory failure secondary to COPD and pneumonia from where he was discharged to [facility]. Patient reports that since this diagnosis of COVID in 08/2020 that he has had persistent shortness of breath. He notes that it is at his baseline at the time of evaluation. He reports a chronic cough with white phlegm which is unchanged. He denied chest discomfort, nausea, vomiting, abdominal pain, diarrhea, dizziness. Reports using 3-4 L of nasal cannula oxygen continuously which has not changed. In the emergency room, laboratory evaluation was remarkable for magnesium of 0.8, BUN 63, creatinine 2.47 (up from 1.4), and potassium 5.3. EKG reveals sinus rhythm with first-degree AV block at 70 bpm with right bundle branch block. Chest x-ray revealed right greater than left bibasilar acute infiltrates along with pleural effusions concerning for CHF. Patient has been placed on IV fluids in form of normal saline; nephrology is consulted and recommending to switch to lactated Ringer; plan is to continue to monitor renal function and electrolytes closely 06/27/2021 Patient is seen and evaluated in room at bedside; complains of persistent nausea with 2 episodes of vomiting since morning Vital signs are reviewed, temperature 97.9, pulse 60, respiration 19 and blood pressure 130/61 Lab review shows sodium 137, potassium 5.3, BUN/creatinine of 45/2.1 which is improved from 55/2.5 yesterday; patient is currently on IV fluids in form of lactated Ringer Chest x-ray reveals bibasilar acute infiltrate with small bilateral pleural effusions; patient denies any any cough or sputum production; we will start empirically on IV antibiotics and monitor CBC, CRP and pro-calcitonin; further recommendations pending test results 06/28/2021 Patient is seen and evaluated in follow-up currently being closely monitored. Patient is being closely monitored by nephrology along with orthopedics being consulted as patient has been seen in the past for his left wrist fracture which is currently splinted. Patient's kidney functions continue to be elevated and will continue with gentle IV hydration for now and hold diuretics. Will repeat labs and continue to monitor closely. Patient denies chest pain, worsening shortness of breath, or palpitations. Patient is afebrile. No reports of nausea or vomiting and patient is tolerating diet. 06/29/2021 Patient is seen in follow-up this morning currently working with physical therapy and continues to be extremely weak and will be returning to rehab at [facility] once stable and discharged. Patient being closely followed by nephrology closely and currently maintained on LR at 50 mL per hour and kidney functions continue to worsen. Sodium is 134, potassium is 5.5, BUN is 50 and creatinine is 2.66 and diuretics are on hold. Hemoglobin is improved at 7.7 with no active bleeding noted. Orthopedics also evaluated the patient and ordering splint for the left wrist. Chest x-ray ordered and pending. 06/30/2021 Patient is seen in follow-up today stating he does not feel well and having generalized fatigue and weakness. Nephrology following closely and kidney func tions continue to worsen and have resumed IV Lasix twice daily as patient was also having some fluid volume overload. Potassium mildly elevated at 5.4 today, BUN is 50, creatinine elevated at 2.82. Patient is maintained on Eliquis twice daily and having some increasing cough and congestion and reports to having hemoptysis with bright red blood noted. Patient did receive anticoagulant today. Instructed the nurse to hold anticoagulant for now and pulmonary was consulted and pending. Chest x-ray from yesterday shows bilateral pleural effusions and chest ultrasound ordered. Patient reports to one episode of hemoptysis. Hemoglobin is stable and actually improved from previous at 7.5. Patient maintained on 5 L via nasal cannula and oxygen saturations are 100%. Wean FiO2 as tolerated. Patient denies worsening shortness of breath, chest pain, or palpitations. Patient is afebrile. Patient tolerating diet with no reports of nausea or vomiting noted. Patient reports to less urine output. 07/01/2021 Patient is seen and evaluated this morning stating he is feeling somewhat improved. Patient continues on IV Lasix 40 mg twice daily and will continue and has had some minimal improvement in creatinine and nephrology following closely. Patient's potassium also elevated at 5.7 and will give a dose of low, and repeat the labs tomorrow. Patient did have a chest ultrasound ordered for possible thoracentesis with pulmonary although patient reluctant to proceed at this time and would like to continue with IV diuresis for improvement. Patient to work with physical therapy daily and states he was up and able to walk with them today. Patient does have a self-monitoring glucometer that he alerts him on his phone of his blood sugar readings and patient has been refusing Accu-Kathe ks and discussed with nursing staff about continuing to document the patient's readings from his device and continue with sliding scale and his normal medications. Patient is also reporting to some right eye dryness and requesting eyedrops. 07/02/2021 Patient is seen today and continues with a wet congested cough and continues to report hemoptysis. Pulmonary and nephrology following and patient continues with elevated kidney functions although appears stable and is maintained on twice daily IV lasix. Potassium trending down after receiving Lokelma. Pulmonary following as well and CT of the chest is ordered for the continued bilateral effusions. Patient started on IV cefepime while awaiting sputum cultures. Splint noted to the left wrist with no further complaints of increased pain at this time. Patient is lethargic on exam. Patient denies worsening shortness of breath and reports to breathing somewhat better. Patient for possible thoracentesis on the right although originally reluctant to move forward with the procedure. Eliquis on hold for this and the continued hemoptysis. Hemoglobin is stable. Iron studies also low and will receive IV Ferriclit. Labs noted with Magnesium to be 1.4. Will replace and repeat am labs. 07/03/2021 Patient evaluated today resting in bed. Still complaining of some shortness of breath associated with ambulation. Also complains of pain rated about a 4-10 to that left wrist, he states that the medication is controlling the pain when he receives it. He is on 5 L nasal cannula and oxygen saturation about 93%. Does wear between 3-5 L of nasal cannula at home. Patient had a chest CT yesterday which shows bilateral pleural effusion and subsegmental pulmonary atelectasis, currently clinically for congestive heart failure and associated pulmonary edema. Associated lung infection cannot be excluded. There is a smaller lesion in the collapsed portion of the lungs are Occluded by the computed tomography scan. Additional findings in report. Plan is for a possible thoracentesis with pulmonary services. Labs today show white count 6.4, hemoglobin 7.7, sodium 136, potassium 5.1, BUN 59, creatinine 2.8, blood glucose 191, pro-calcitonin 0.31, magnesium 2.1. Patient continues on IV Solu-Medrol, IV Lasix every 12, IV Ferrlecit, IV cefepime which was started yesterday. He is afebrile, blood pressure 135/74. Review of systems: Constitutional: reports of fatigue, no reports of fever, or chills Cardiovascular: No reports of chest pain or palpitations Respiratory: No reports of worsening shortness of breath , reports continued cough reports blood in sputum has improved GI: No reports of nausea, no reports of of vomiting : No reports of dysuria or retention Neurovascular: reports of generalized weakness, reports left wrist pain All medications have been reviewed PHYSICAL EXAMINATION: GENERAL: The patient is alert and oriented x3, Well developed, well nourished. Ill-appearing, appears older than stated age HEENT: Pupils are round and equally reacting to light. EOMI. does have scleral icterus. No conjunctival pallor. Normocephalic, atraumatic. No pharyngeal erythema. No thyromegaly. CARDIOVASCULAR: S1 and S2 muffled PULMONARY: diminished breath sounds bilaterally with some scattered rhonchi and crackles noted. hemoptysis ABDOMEN: soft. Nontender on exam. obese. non-distended, normoactive bowel sounds. No palpable organomegaly. MUSCULOSKELETAL: No joint swelling or deformity. EXTREMITIES: No cyanosis, clubbing, or pedal edema. Left wrist splint noted NEUROLOGICAL: Gross neurological examination did not reveal any focal deficits. Diffuse weakness SKIN: No rashes. fraille, thin skin with multiple areas of discoloration noted to upper extremities Assessment: Acute on chronic kidney disease possibly secondary to diuretic use, creatinine 2.8 today Acute on chronic hypoxic respiratory failure secondary to acute on chronic systolic congestive heart failure, acute exacerbation, on 5L NC Bilateral pleural effusions right greater than left Hyperkalemia most likely related to acute renal injury COPD, acute exacerbation hypomagnesemia, resolved Hemoptysis, on eliquis Hypertension Hyperlipidemia hypothyroidism atrial fibrillation, paroxysmal currently rate controlled sick sinus syndrome with pacemaker placement Recent left wrist fracture status post fall 7 weeks ago showing a comminuted i ntra-articular left distal radius fracture with marked deformity Diabetes mellitus type 2 with hyperglycemia, GI prophylaxis DVT prophylaxis resume eliquis. Full code Plan: Recommend to continue with current medications and management. Recommend to continue with IV Lasix twice close monitoring of kidney functions and electrolytes. Potassium elevated although improved after lokelma given. Kidney functions stable. Iron studies low and receiving IV Iron infusions. Patient had repeat chest ct done today which continues to demonstrate bilateral pleural effusions, right greater than left and pulmonary is following. Patient agreeable to thoracentesis, pending for today. Patient continues on IV steroids as well. Eliquis resumed today. Concern for possible infectious process also noted on the CT and patient was placed on IV cefepime and sputum culture pending. Patient has no white count and is afebrile. Patient has just completed a full course of zithromax and ceftriaxone that was started on admission. Procalcitonin elevated at 0.31 suggestive of possible underlying bacterial infection. PT/OT following and working with the patient as the patient continues with weakness. Patient will be returning to [facility] when stabilized and discharged. Recommend continued monitoring of blood sugars from patients personal wearing device that detects and reports glucose levels before meals and at bedtime and continue sliding scale. Blood sugar has remained elevated, patient consuming 100% of meals, will resume lantus. Due to multiple complex medical issues, prognosis is guarded. Objective - Vital Signs Vital signs: Vital Signs Temp 98.5 F 07/03/21 05:00 Pulse 88 07/03/21 07:36 Resp 20 07/03/21 05:00 BP 135/75 07/03/21 05:00 Pulse Ox 93 L 07/03/21 05:00 Intake & Output 07/02/21 07/03/21 07/03/21 18:59 06:59 18:59 Intake Total 680 340 Output Total 700 850 Balance -20 -510 Weight 95.708 kg Intake: Intake, IV Titration 100 Amount Cefepime 2 gm In Sodium 100 Chloride 0.9% 100 ml @ 25 mls/hr IVPB Q12H [facility] Rx# :[id number] Oral 680 240 Output: Urine 700 850 Other: Voiding Method Urinal # Voids 2 # Bowel Movements 1 - Labs CBC & Chem 7: 07/03/21 07:17 07/03/21 07:17 Labs: Abnormal Lab Results - Last 24 Hours (Table) 07/02/21 07/02/21 07/03/21 Range/Units 09:35 20:48 07:17 RBC 2.57 L (4.30-5.90) m/uL Hgb 7.7 L (13.0-17.5) gm/dL Hct 25.9 L (39.0-53.0) % MCV 100.9 H (80.0-100.0) fL MCHC 29.7 L (31.0-37.0) g/dL RDW 16.0 H (11.5-15.5) % Lymphocytes # 0.4 L (1.0-4.8) k/uL Sodium 135 L (137-145) mmol/L BUN 61 H (9-20) mg/dL Creatinine 2.87 H (0.66-1.25) mg/dL Glucose 232 H (74-99) mg/dL POC Glucose (mg/dL) 297 H (75-99) mg/dL Magnesium 1.4 L (1.6-2.3) mg/dL Microbiology - Last 24 Hours (Table) 07/02/21 13:37 Sputum Culture - Preliminary Sputum
--- NOTE | 2021-07-03 15:18 | P.PN ---
Subjective Progress Note Date: 07/03/21 Follow-up for acute kidney injury. No accurate documentation of urine output. Objective - Vital Signs Vital signs: Vital Signs Temp 97.6 F 07/03/21 11:13 Pulse 80 07/03/21 11:32 Resp 20 07/03/21 11:13 BP 135/74 07/03/21 11:13 Pulse Ox 92 L 07/03/21 11:13 Intake & Output 07/02/21 07/03/21 07/03/21 18:59 06:59 18:59 Intake Total 680 340 Output Total 700 850 Balance -20 -510 Weight 95.708 kg Intake: Intake, IV Titration 100 Amount Cefepime 2 gm In Sodium 100 Chloride 0.9% 100 ml @ 25 mls/hr IVPB Q12H [facility] Rx# :[id number] Oral 680 240 Output: Urine 700 850 Other: Voiding Method Urinal # Voids 2 # Bowel Movements 1 - Exam No acute distress S1-S2 heard Decreased breath sounds edema - Labs CBC & Chem 7: 07/03/21 07:17 07/03/21 07:17 Labs: Abnormal Lab Results - Last 24 Hours (Table) 07/02/21 07/03/21 07/03/21 Range/Units 20:48 07:17 07:17 RBC 2.57 L (4.30-5.90) m/uL Hgb 7.7 L (13.0-17.5) gm/dL Hct 25.9 L (39.0-53.0) % MCV 100.9 H (80.0-100.0) fL MCHC 29.7 L (31.0-37.0) g/dL RDW 16.0 H (11.5-15.5) % Lymphocytes # 0.4 L (1.0-4.8) k/uL Anion Gap 9.80 L (10.00-18.00) mmol/L BUN 59.0 H (9.0-27.0) mg/dL Creatinine 2.8 H (0.6-1.5) mg/dL Est GFR (CKD-EPI)AfAm 26.4 L (60.0-200.0) Est GFR (CKD-EPI)NonAf 22.8 L (60.0-200.0) BUN/Creatinine Ratio 21.07 H (12.00-20.00) Ratio Glucose 191 H (70-110) mg/dL POC Glucose (mg/dL) 297 H (75-99) mg/dL Procalcitonin (0.02-0.09) ng/mL 07/03/21 Range/Units 07:17 RBC (4.30-5.90) m/uL Hgb (13.0-17.5) gm/dL Hct (39.0-53.0) % MCV (80.0-100.0) fL MCHC (31.0-37.0) g/dL RDW (11.5-15.5) % Lymphocytes # (1.0-4.8) k/uL Anion Gap (10.00-18.00) mmol/L BUN (9.0-27.0) mg/dL Creatinine (0.6-1.5) mg/dL Est GFR (CKD-EPI)AfAm (60.0-200.0) Est GFR (CKD-EPI)NonAf (60.0-200.0) BUN/Creatinine Ratio (12.00-20.00) Ratio Glucose (70-110) mg/dL POC Glucose (mg/dL) (75-99) mg/dL Procalcitonin 0.31 H (0.02-0.09) ng/mL Microbiology - Last 24 Hours (Table) 07/02/21 13:37 Gram Stain - Preliminary Sputum Sputum Culture - Preliminary Assessment and Plan Assessment: #1 acute kidney injury secondary to cardiorenal syndrome. #2 CK D stage IIIB with a baseline creatinine of 1.5 MG per DL. #3 acute on chronic diastolic heart failure #4 hyperkalemia better. Plan: #1 renal function still high but stable. continue with Lasix #3 check bladder scan to rule out urinary retention #3 avoid nephrotoxic agents.
[2021-07-03] MEDS: INSULIN DETEMIR (LEVEMIR) 100 UNIT/ML SYR SQ SCH (20:04)
[2021-07-03] MEDS: APIXABAN 2.5 MG TABLET PO SCH (20:04)
[2021-07-03] MEDS: METOPROLOL SUCCINATE (ER) 50 MG TAB.ER.24H PO SCH (20:04)
[2021-07-03] MEDS: LOPERAMIDE 2 MG CAP PO PRN (20:05)
[2021-07-03 23:11] LABS: Appearance,BF Bloody
[2021-07-03 23:34] LABS: Glucose, BF Source Pleural Fluid; Glucose, Body Fluid 218 mg/dL
[2021-07-03 23:41] LABS: LDH, Body Fluid Source Pleural Fluid; T. Protein, Body Fluid Source Pleural Fluid; Total Protein, Body Fluid 3640 mg/dL
[2021-07-04] MEDS: methylPREDNISolone SOD SUCCI 40 MG/ML 1 ML VIAL IV SCH ×4 (00:18→23:33)
[2021-07-04] MEDS: INSULIN ASPART (NovoLOG) 100 UNIT/ML VIAL SQ SCH ×5 (02:08→20:13)
[2021-07-04] MEDS: CEFEPIME 2 GM in SODIUM CHLORIDE 0.9% 100 ML IVPB SCH ×2 (02:09→13:19)
[2021-07-04] MEDS: LOPERAMIDE 2 MG CAP PO PRN ×2 (04:12→17:45)
[2021-07-04] MEDS: HYDROcodone/APAP 10-325MG 1 EACH TAB PO PRN ×3 (05:09→20:12)
[2021-07-04] MEDS: BUDESONIDE 0.5 MG/2 ML NEBU INHALATION SCH ×2 (07:27→19:36)
[2021-07-04] MEDS: IPRATROPIUM-ALBUTEROL 3 ML NEB INHALATION SCH ×4 (07:27→19:36)
[2021-07-04] MEDS: PANTOPRAZOLE 40 MG TABLET PO SCH (07:56)
[2021-07-04] MEDS: FUROSEMIDE 10 MG/ML 4 ML VIAL IV SCH ×2 (07:56→20:12)
[2021-07-04] MEDS: APIXABAN 2.5 MG TABLET PO SCH ×2 (07:57→20:12)
[2021-07-04] MEDS: diphenhydrAMINE 25 MG CAP PO PRN ×2 (07:57→20:12)
[2021-07-04] MEDS: MIDODRINE 5 MG TAB PO SCH ×4 (07:58→21:54)
[2021-07-04] MEDS: LEVOTHYROXINE 25 MCG TAB PO SCH (07:58)
[2021-07-04] MEDS: SODIUM FERRIC GLUCONAT-SUCROSE 125 MG in SODIUM CHLORIDE 0.9% 100 ML IVPB SCH (08:36)
--- NOTE | 2021-07-04 12:30 | P.PN ---
Subjective Progress Note Date: 07/04/21 Follow-up for acute kidney injury. Denies nausea vomiting diarrhea. Thoracentesis yesterday with 700 ML's of fluid removed. Objective - Vital Signs Vital signs: Vital Signs Temp 97.4 F L 07/04/21 11:22 Pulse 66 07/04/21 11:34 Resp 20 07/04/21 11:22 BP 116/65 07/04/21 11:22 Pulse Ox 90 L 07/04/21 11:22 Intake & Output 07/03/21 07/04/21 07/04/21 18:59 06:59 18:59 Intake Total 698 600 Output Total 100 607 200 Balance 598 -7 -200 Weight 97 kg Intake: Intake, IV Titration 225 Amount Cefepime 2 gm In Sodium 100 Chloride 0.9% 100 ml @ 25 mls/hr IVPB Q12H [facility] Rx# :[id number] Sodium Ferric Gluconat- 125 Sucrose 125 mg In Sodium Chloride 0.9% 100 ml @ 100 mls/hr IVPB DAILY [facility] Rx#:[id number] Oral 473 600 Output: Urine 100 600 200 Stool 7 Other: Voiding Method Urinal # Voids 600 1 # Bowel Movements 1 1 - Exam No acute distress S1-S2 heard Decreased breath sounds edema - Labs CBC & Chem 7: 07/03/21 07:17 07/03/21 07:17 Labs: Abnormal Lab Results - Last 24 Hours (Table) 07/03/21 07/03/21 Range/Units 07:17 07:17 Anion Gap 9.80 L (10.00-18.00) mmol/L BUN 59.0 H (9.0-27.0) mg/dL Creatinine 2.8 H (0.6-1.5) mg/dL Est GFR (CKD-EPI)AfAm 26.4 L (60.0-200.0) Est GFR (CKD-EPI)NonAf 22.8 L (60.0-200.0) BUN/Creatinine Ratio 21.07 H (12.00-20.00) Ratio Glucose 191 H (70-110) mg/dL Procalcitonin 0.31 H (0.02-0.09) ng/mL Microbiology - Last 24 Hours (Table) 07/03/21 11:00 Gram Stain - Preliminary Pleural Fluid Body Fluid Culture - Preliminary 07/03/21 11:00 Anaerobic Culture - Preliminary Pleural Fluid 07/02/21 13:37 Gram Stain - Preliminary Sputum Sputum Culture - Preliminary Assessment and Plan Assessment: #1 acute kidney injury secondary to cardiorenal syndrome. #2 CKD stage IIIB with a baseline creatinine of 1.5 MG per DL. #3 acute on chronic diastolic heart failure #4 hyperkalemia better. Plan: #1 renal function still high but stable. continue with Lasix #2 bladder scan less than 10 ML's. #3 avoid nephrotoxic agents. #4 supportive care
[2021-07-04] MEDS: TAMSULOSIN 0.4 MG CAP.ER.24H PO SCH (13:19)
--- NOTE | 2021-07-04 15:14 | P.PN ---
Subjective Progress Note Date: 07/04/21 Acute on chronic kidney disease; possibly related to overdiuresis Electrolyte imbalance; hypokalemia/hypomagnesemia 65-year-old male with an extensive PMH including COPD, chronic tobacco respiratory failure on 3 L of the cannula oxygen chronic kidney disease, systolic CHF, type II DM, hypothyroidism, hypertension, hyperlipidemia, A. fib on Eliquis, who was sent in from [facility] for shortness of breath. The patient was admitted to the hospital on 05/17/2021 for hypoxic respiratory failure secondary to COPD and pneumonia from where he was discharged to [facility]. Patient reports that since this diagnosis of COVID in 08/2020 that he has had persistent shortness of breath. He notes that it is at his baseline at the time of evaluation. He reports a chronic cough with white phlegm which is unchanged. He denied chest discomfort, nausea, vomiting, abdominal pain, diarrhea, dizziness. Reports using 3-4 L of nasal cannula oxygen continuously which has not changed. In the emergency room, laboratory evaluation was remarkable for magnesium of 0.8, BUN 63, creatinine 2.47 (up from 1.4), and potassium 5.3. EKG reveals sinus rhythm with first-degree AV block at 70 bpm with right bundle branch block. Chest x-ray revealed right greater than left bibasilar acute infiltrates along with pleural effusions concerning for CHF. Patient has been placed on IV fluids in form of normal saline; nephrology is consulted and recommending to switch to lactated Ringer; plan is to continue to monitor renal function and electrolytes closely 06/27/2021 Patient is seen and evaluated in room at bedside; complains of persistent nausea with 2 episodes of vomiting since morning Vital signs are reviewed, temperature 97.9, pulse 60, respiration 19 and blood pressure 130/61 Lab review shows sodium 137, potassium 5.3, BUN/creatinine of 45/2.1 which is improved from 55/2.5 yesterday; patient is currently on IV fluids in form of lactated Ringer Chest x-ray reveals bibasilar acute infiltrate with small bilateral pleural effusions; patient denies any any cough or sputum production; we will start empirically on IV antibiotics and monitor CBC, CRP and pro-calcitonin; further recommendations pending test results 06/28/2021 Patient is seen and evaluated in follow-up currently being closely monitored. Patient is being closely monitored by nephrology along with orthopedics being consulted as patient has been seen in the past for his left wrist fracture which is currently splinted. Patient's kidney functions continue to be elevated and will continue with gentle IV hydration for now and hold diuretics. Will repeat labs and continue to monitor closely. Patient denies chest pain, worsening shortness of breath, or palpitations. Patient is afebrile. No reports of nausea or vomiting and patient is tolerating diet. 06/29/2021 Patient is seen in follow-up this morning currently working with physical therapy and continues to be extremely weak and will be returning to rehab at [facility] once stable and discharged. Patient being closely followed by nephrology closely and currently maintained on LR at 50 mL per hour and kidney functions continue to worsen. Sodium is 134, potassium is 5.5, BUN is 50 and creatinine is 2.66 and diuretics are on hold. Hemoglobin is improved at 7.7 with no active bleeding noted. Orthopedics also evaluated the patient and ordering splint for the left wrist. Chest x-ray ordered and pending. 06/30/2021 Patient is seen in follow-up today stating he does not feel well and having generalized fatigue and weakness. Nephrology following closely and kidney func tions continue to worsen and have resumed IV Lasix twice daily as patient was also having some fluid volume overload. Potassium mildly elevated at 5.4 today, BUN is 50, creatinine elevated at 2.82. Patient is maintained on Eliquis twice daily and having some increasing cough and congestion and reports to having hemoptysis with bright red blood noted. Patient did receive anticoagulant today. Instructed the nurse to hold anticoagulant for now and pulmonary was consulted and pending. Chest x-ray from yesterday shows bilateral pleural effusions and chest ultrasound ordered. Patient reports to one episode of hemoptysis. Hemoglobin is stable and actually improved from previous at 7.5. Patient maintained on 5 L via nasal cannula and oxygen saturations are 100%. Wean FiO2 as tolerated. Patient denies worsening shortness of breath, chest pain, or palpitations. Patient is afebrile. Patient tolerating diet with no reports of nausea or vomiting noted. Patient reports to less urine output. 07/01/2021 Patient is seen and evaluated this morning stating he is feeling somewhat improved. Patient continues on IV Lasix 40 mg twice daily and will continue and has had some minimal improvement in creatinine and nephrology following closely. Patient's potassium also elevated at 5.7 and will give a dose of low, and repeat the labs tomorrow. Patient did have a chest ultrasound ordered for possible thoracentesis with pulmonary although patient reluctant to proceed at this time and would like to continue with IV diuresis for improvement. Patient to work with physical therapy daily and states he was up and able to walk with them today. Patient does have a self-monitoring glucometer that he alerts him on his phone of his blood sugar readings and patient has been refusing Accu-Kathe ks and discussed with nursing staff about continuing to document the patient's readings from his device and continue with sliding scale and his normal medications. Patient is also reporting to some right eye dryness and requesting eyedrops. 07/02/2021 Patient is seen today and continues with a wet congested cough and continues to report hemoptysis. Pulmonary and nephrology following and patient continues with elevated kidney functions although appears stable and is maintained on twice daily IV lasix. Potassium trending down after receiving Lokelma. Pulmonary following as well and CT of the chest is ordered for the continued bilateral effusions. Patient started on IV cefepime while awaiting sputum cultures. Splint noted to the left wrist with no further complaints of increased pain at this time. Patient is lethargic on exam. Patient denies worsening shortness of breath and reports to breathing somewhat better. Patient for possible thoracentesis on the right although originally reluctant to move forward with the procedure. Eliquis on hold for this and the continued hemoptysis. Hemoglobin is stable. Iron studies also low and will receive IV Ferriclit. Labs noted with Magnesium to be 1.4. Will replace and repeat am labs. 07/03/2021 Patient evaluated today resting in bed. Still complaining of some shortness of breath associated with ambulation. Also complains of pain rated about a 4-10 to that left wrist, he states that the medication is controlling the pain when he receives it. He is on 5 L nasal cannula and oxygen saturation about 93%. Does wear between 3-5 L of nasal cannula at home. Patient had a chest CT yesterday which shows bilateral pleural effusion and subsegmental pulmonary atelectasis, currently clinically for congestive heart failure and associated pulmonary edema. Associated lung infection cannot be excluded. There is a smaller lesion in the collapsed portion of the lungs are Occluded by the computed tomography scan. Additional findings in report. Plan is for a possible thoracentesis with pulmonary services. Labs today show white count 6.4, hemoglobin 7.7, sodium 136, potassium 5.1, BUN 59, creatinine 2.8, blood glucose 191, pro-calcitonin 0.31, magnesium 2.1. Patient continues on IV Solu-Medrol, IV Lasix every 12, IV Ferrlecit, IV cefepime which was started yesterday. He is afebrile, blood pressure 135/74. 07/04/2021 Patient evaluated today resting in bed, encouraged to set up in the chair during the day. Status post right-sided thoracentesis yesterday with 700 mL of turbid colored fluid removed. Today patient is still on 5 L of nasal cannula he was hoping to have more improvement in his overall shortness of breath status post thoracentesis. Sputum culture finalized a Pseudomonas, cultures from thoracentesis pending. Continues to complain of pain to his left wrist is frustrated as he feels like he needs surgical intervention. Currently recommended to keep brace in place and removed twice a day for skin checks and remove for hygiene but otherwise wear 28/11. He will follow-up in the office with orthopedics for further evaluation. Continues on IV cefepime, IV iron, IV Lasix, IV solu-Medrol. Follow-up labs tomorrow. He does not want to return to [facility] on discharge is hoping to go to go home with his when stable. Review of systems: Constitutional: reports of fatigue, no reports of fever, or chills Cardiovascular: No reports of chest pain or palpitations Respiratory: No reports of worsening shortness of breath , reports continued cough reports blood in sputum has improved GI: No reports of nausea, no reports of of vomiting : No reports of dysuria or retention Neurovascular: reports of generalized weakness, reports left wrist pain All medications have been reviewed PHYSICAL EXAMINATION: GENERAL: The patient is alert and oriented x3, Well developed, well nourished. Ill-appearing, appears older than stated age HEENT: Pupils are round and equally reacting to light. EOMI. does have scleral icterus. No conjunctival pallor. Normocephalic, atraumatic. No pharyngeal erythema. No thyromegaly. CARDIOVASCULAR: S1 and S2 muffled PULMONARY: diminished breath sounds bilaterally with some scattered rhonchi. ABDOMEN: soft. Nontender on exam. obese. non-distended, normoactive bowel s ounds. No palpable organomegaly. MUSCULOSKELETAL: No joint swelling or deformity. EXTREMITIES: No cyanosis, clubbing, or pedal edema. Left wrist splint noted NEUROLOGICAL: Gross neurological examination did not reveal any focal deficits. Diffuse weakness SKIN: No rashes. fraille, thin skin with multiple areas of discoloration noted to upper extremities Assessment: Acute on chronic kidney disease possibly secondary to diuretic use, creatinine 2.8 today Acute on chronic hypoxic respiratory failure secondary to acute on chronic systolic congestive heart failure, acute exacerbation, on 5L NC Bilateral pleural effusions right greater than left s/p right sided thoracentesis with 700 cc fluid removed Hyperkalemia most likely related to acute renal injury COPD, acute exacerbation hypomagnesemia, resolved Hemoptysis, on eliquis Hypertension Hyperlipidemia hypothyroidism atrial fibrillation, paroxysmal currently rate controlled sick sinus syndrome with pacemaker placement Recent left wrist fracture status post fall 7 weeks ago showing a comminuted intra-articular left distal radius fracture with marked deformity Diabetes mellitus type 2 with hyperglycemia GI prophylaxis DVT prophylaxis resume eliquis. Full code Plan: Recommend to continue with current medications and management. Recommend to continue with IV Lasix twice close monitoring of kidney functions and electrolytes. Potassium elevated although improved after lokelma given. Kidney functions stable. Iron studies low and receiving IV Iron infusions. Patient had repeat chest ct done today which continues to demonstrate bilateral pleural effusions, right greater than left and pulmonary is following. Patient underwent thoracentesis with 700 cc of fluid removed. Patient continues on IV steroids as well. Eliquis resumed today. Concern for possible infectious process also noted on the CT and patient was placed on IV cefepime and sputum culture showing pseudomonas. Patient has no white count and is afebrile. Patient has just completed a full course of zithromax and ceftriaxone that was started on admission.PT/OT following and working with the patient as the patient continues with weakness. Patient will be returning to [facility] when stabilized and discharged. Recommend continued monitoring of blood sugars from patients personal wearing device that detects and reports glucose levels before meals and at bedtime and continue sliding scale. Blood sugar has remained elevated, patient consuming 100% of meals, lantus was resumed. Due to multiple complex medical issues, prognosis is guarded. Objective - Vital Signs Vital signs: Vital Signs Temp 97.4 F L 07/04/21 11:22 Pulse 66 07/04/21 11:34 Resp 20 07/04/21 11:22 BP 116/65 07/04/21 11:22 Pulse Ox 90 L 07/04/21 11:22 Intake & Output 07/03/21 07/04/21 07/04/21 18:59 06:59 18:59 Intake Total 698 600 473 Output Total 100 607 200 Balance 598 -7 273 Weight 97 kg Intake: Intake, IV Titration 225 Amount Cefepime 2 gm In Sodium 100 Chloride 0.9% 100 ml @ 25 mls/hr IVPB Q12H [facility] Rx# :[id number] Sodium Ferric Gluconat- 125 Sucrose 125 mg In Sodium Chloride 0.9% 100 ml @ 100 mls/hr IVPB DAILY [facility] Rx#:[id number] Oral 473 600 473 Output: Urine 100 600 200 Stool 7 Other: Voiding Method Urinal # Voids 600 1 # Bowel Movements 1 1 - Labs CBC & Chem 7: 07/03/21 07:17 07/03/21 07:17 Labs: Microbiology - Last 24 Hours (Table) 07/02/21 13:37 Gram Stain - Final Sputum Sputum Culture - Final Pseudomonas aeruginosa 07/03/21 11:00 Gram Stain - Preliminary Pleural Fluid Body Fluid Culture - Preliminary 07/03/21 11:00 Anaerobic Culture - Preliminary Pleural Fluid
--- NOTE | 2021-07-04 15:29 | P.PN ---
Subjective Progress Note Date: 07/04/21 This is a very pleasant 65-year-old male patient who resides in a local shelter. He has a history of atrial fibrillation anticoagulated with Eliquis, congestive heart failure, chronic obstructive pulmonary disease, diabetes mellitus, hypothyroidism, hypertension. He is oxygen dependent normally at 4 L/m per nasal cannula. He quit smoking approximately 4 years ago after a 50 year smoking history. He was seen here last month for COPD exacerbation. He also has a history of a recent fall with a comminuted, intra-articular left distal radius fracture with markedly deformity with a date of injury approximate 7 weeks ago. He had been seen by orthopedics. Wrist brace and Dany wrap in place. He presented here to the emergency room from the [facility] on 06/24/2021 with complaints of increasing shortness of breath and hypoxemia. His oxygen was increased to 6 L nasal cannula. His x-ray revealed bilateral pleural effusions and signs of pulmonary edema with some underlying congestive heart failure. Infection not completely excluded. White count 9.5. Hemoglobin 7.5. Platelets 225. Sodium 135. Potassium 5.4. Bicarb 28. BUN 50. Creatinine 2.82. Glucose 114. Pro-calcitonin 0.30. He had been initiated on Lasix 40 mg IV every 12 hours, DuoNeb inhalations, Pulmicort inhalations, antibiotics in the form of ceftriaxone and azithromycin. Anticoagulated with Eliquis. Last evening and this morning he developed hemoptysis were consulted today 06/30/2021. He is seen on the regular medical floor. Currently sitting up in bed. Awake and alert in no acute distress. He states he is coughing up blood denying any hematemesis. Currently maintaining O2 saturation up to 100% on 5 L/m per nasal cannula. He's been afebrile. Hemodynamically stable. No further hemoptysis since earlier this morning. The patient is seen today 07/01/2021 in follow-up on the regular medical floor. He is awake and alert in no acute distress. Resting quite comfortably in bed. Denies any worsening shortness of breath, cough or congestion. Continues to maintain O2 saturations in the 90s on 5 L/m per nasal cannula. Remains afebrile. Hemodynamically stable. Ultrasound of the bilateral chest noted. The patient however is reluctant to have a thoracentesis performed at this time. He is stable from the pulmonary standpoint. Continue IV diuretics for now. He remains on bronchodilators and IV Solu-Medrol. No further hemoptysis. The patient is seen today 07/02/2021 in follow-up on the regular medical floor. He is currently resting comfortably in bed. Awake and alert in no acute distress. He denies any worsening shortness of breath. Still having some issues with blood-tinged sputum. He had declined to have a thoracentesis done. Continues to maintain good O2 saturations in the 90s on 5 L/m per nasal cannula. He's been afebrile. Hemodynamically stable. Sodium 135. Potassium 5.1. BUN 61. Creatinine 2.87. Glucose 232. He is continued on DuoNeb inhalations, Pulmicort inhalations, IV Solu-Medrol. Continued on antibiotics in the form of cefepime. The patient is seen today 07/03/2021 in follow-up on the regular medical floor. He is awake and alert in no acute distress. He is maintaining O2 saturations in the low 90s on 5 L high flow nasal cannula. Afebrile. Hemodynamically stable. CAT scan revealed evidence of cardiomegaly with bilateral pleural effusion and subsegmental pulmonary atelectasis. He did undergo a right-sided thoracentesis today with 700 mL of bloody fluid removed. Cytology and fluid analysis pending. Follow-up chest x-ray revealed no evidence of pneumothorax. There is improved aeration of the right lung base. Sputum culture pending. White count 6.4. Hemoglobin 7.7. Platelets 251. He is continued on DuoNeb inhalations, Pulmicort inhalations, IV Solu-Medrol. Continued on IV diuretics. 07/04/2021, the patient is doing well. He feels better after he underwent a thoracentesis yesterday with approximately 700 mL of pleural fluid was aspirated from the right lung. This procedure was done without any complications. No evidence of a pneumothorax and subsequent chest x-ray showed some residual atelectasis and effusion the lung bases bilaterally. The fluid seems to be an exudate based on the protein Criteria. The fluid protein was up to 3.6 and LDH level was at 136. The cultures and the cytology are still pending for now. M eanwhile, the patient has a congested cough. On March to produce any sputum. A focused on her level was low at 0.31. The renal function remains stable with a creatinine of 2.8 and a BUN of 59. Rest of the electrodes are all within normal limits. He is awake and alert. His oxygen flow is at 5 L which is at baseline for now. His hemoglobin is also at 7.7 and the patient has been awake and alert and communicating. Times a day bedside. He is receiving DuoNeb about treatments around the clock and the patient remains on IV Solu-Medrol. He is also on Lasix 40 mg IV every 12 hours. Antibiotic coverage remains with IV cefepime. Objective - Vital Signs Vital signs: Vital Signs Temp 97.4 F L 07/04/21 11:22 Pulse 66 07/04/21 11:34 Resp 20 07/04/21 11:22 BP 116/65 07/04/21 11:22 Pulse Ox 90 L 07/04/21 11:22 Intake & Output 07/03/21 07/04/21 07/04/21 18:59 06:59 18:59 Intake Total 698 600 473 Output Total 100 607 200 Balance 598 -7 273 Weight 97 kg Intake: Intake, IV Titration 225 Amount Cefepime 2 gm In Sodium 100 Chloride 0.9% 100 ml @ 25 mls/hr IVPB Q12H [facility] Rx# :[id number] Sodium Ferric Gluconat- 125 Sucrose 125 mg In Sodium Chloride 0.9% 100 ml @ 100 mls/hr IVPB DAILY [facility] Rx#:[id number] Oral 473 600 473 Output: Urine 100 600 200 Stool 7 Other: Voiding Method Urinal # Voids 600 1 # Bowel Movements 1 1 - Exam GENERAL EXAM: Alert, 65-year-old gentleman, on 5 L nasal cannula, comfortable in no apparent distress. HEAD: Normocephalic. EYES: Normal reaction of pupils, equal size. NOSE: Clear with pink turbinates. THROAT: No erythema or exudates. NECK: No masses, no JVD. CHEST: No chest wall deformity. LUNGS: Equal air entry with crackles in the bilateral bases, right greater than left, diminished. CVS: S1 and S2 normal with no audible murmur, regular rhythm. ABDOMEN: No hepatosplenomegaly, normal bowel sounds, no guarding or rigidity. SPINE: No scoliosis or deformity SKIN: No rashes CENTRAL NERVOUS SYSTEM: No focal deficits, tone is normal in all 4 extremities. EXTREMITIES: Left upper extremity in a splint and Dany wrap. There is no peripheral edema. No clubbing, no cyanosis. Peripheral pulses are intact. - Labs CBC & Chem 7: 07/03/21 07:17 07/03/21 07:17 Labs: Microbiology - Last 24 Hours (Table) 07/02/21 13:37 Gram Stain - Final Sputum Sputum Culture - Final Pseudomonas aeruginosa 07/03/21 11:00 Gram Stain - Preliminary Pleural Fluid Body Fluid Culture - Preliminary 07/03/21 11:00 Anaerobic Culture - Preliminary Pleural Fluid Assessment and Plan Plan: 1 Acute on chronic hypoxic respiratory failure secondary to acute exacerbation of systolic congestive heart failure, bilateral pleural effusions, mild exacerbation of COPD with tracheobronchitis and hemoptysis. Computed tomography scan of the chest reviewed. He did undergo a right-sided thoracentesis today with 700 L of bloody fluid removed. Cytology and fluid analysis pending. Meanwhile, the fluid itself seems to be an exudate based on the routine criteria. LDH level is low. Fluid cytology still pending for now. Meanwhile, the repeat chest x-ray postthoracentesis showed residual bilateral pleural effusion more so in the right. There is some atelectatic changes in lung bases bilaterally. The patient remains on IV cefepime. The patient remains on IV Lasix. Renal function stable. The patient is at baseline at 5 L per minute nasal cannula. This is his baseline oxygen requirements. 2 Recent fall, about 7 weeks ago, with comminuted intra-articular left distal radius fracture with marketed deformity To be followed up in the outpatient setting 3 Paroxysmal atrial fibrillation, anticoagulated with Eliquis 4 Sick sinus syndrome status post permanent pacemaker implantation 5 Former smoker with oxygen dependent COPD and normally on 4 L nasal cannula 6 Diabetes mellitus 7 Hyperlipidemia 8 Hypertension 9 Chronic kidney disease stage III 10 Prior history of alcoholism 11 History of previous left-sided pneumothorax requiring ThoraVent Plan May consider a thoracentesis on the left Continue IV cefepime Continue IV Lasix Monitor renal function which is currently stable for now Anticoagulation is resume with Eliquis Continue bronchodilators and encourage use of incentive spirometer Awaiting pleural fluid cytology We'll continue to follow
[2021-07-04 18:19] LABS: African American GFR (CKD) 24 (>60 ml/min/1.73 sqM); Anion Gap 7 mmol/L; Blood Urea Nitrogen 77 mg/dL (9-20); Carbon Dioxide 28 mmol/L (22-30); Chloride 98 mmol/L (98-107); Glucose 220 mg/dL (74-99); Non-African American GFR(CKD) 20 (>60 ml/min/1.73 sqM); Potassium 4.8 mmol/L (3.5-5.1); Sodium 133 mmol/L (137-145)
[2021-07-04] MEDS: INSULIN DETEMIR (LEVEMIR) 100 UNIT/ML SYR SQ SCH (20:12)
[2021-07-04] MEDS: METOPROLOL SUCCINATE (ER) 50 MG TAB.ER.24H PO SCH (20:12)
[2021-07-05] MEDS: CEFEPIME 2 GM in SODIUM CHLORIDE 0.9% 100 ML IVPB SCH ×2 (01:25→13:51)
[2021-07-05] MEDS: diphenhydrAMINE 25 MG CAP PO PRN ×2 (01:28→17:37)
[2021-07-05] MEDS: LOPERAMIDE 2 MG CAP PO PRN ×3 (01:28→20:22)
[2021-07-05] MEDS: HYDROcodone/APAP 10-325MG 1 EACH TAB PO PRN ×2 (01:28→17:37)
[2021-07-05] MEDS: INSULIN ASPART (NovoLOG) 100 UNIT/ML VIAL SQ SCH ×5 (01:32→20:21)
[2021-07-05] MEDS: BUDESONIDE 0.5 MG/2 ML NEBU INHALATION SCH ×2 (08:07→19:02)
[2021-07-05] MEDS: IPRATROPIUM-ALBUTEROL 3 ML NEB INHALATION SCH ×4 (08:07→19:03)
[2021-07-05] MEDS: FUROSEMIDE 10 MG/ML 4 ML VIAL IV SCH (09:06)
[2021-07-05] MEDS: APIXABAN 2.5 MG TABLET PO SCH ×2 (09:06→20:23)
[2021-07-05] MEDS: PANTOPRAZOLE 40 MG TABLET PO SCH (09:06)
[2021-07-05] MEDS: methylPREDNISolone SOD SUCCI 40 MG/ML 1 ML VIAL IV SCH ×2 (09:06→17:13)
[2021-07-05] MEDS: LEVOTHYROXINE 25 MCG TAB PO SCH (09:06)
--- NOTE | 2021-07-05 09:45 | P.PN ---
Subjective Patient is seen in follow-up for acute kidney injury on chronic kidney disease. Renal function worse from diuresis. Creatinine 3.08 yesterday. On IV Lasix. Good urine output. Currently on 5 L nasal cannula. Blood pressure stable. Oral intake fair. No vomiting or diarrhea. Vital signs are stable. General: The patient appeared well nourished and normally developed. HEENT: Head exam is unremarkable. On nasal cannula. LUNGS: Scattered rhonchi. Breath sounds decreased. HEART: Rate and Rhythm are regular. ABDOMEN: Soft, no distention. EXTREMITITES: No edema. Objective - Vital Signs Vital signs: Vital Signs Temp 97.7 F 07/05/21 05:00 Pulse 70 07/05/21 08:18 Resp 16 07/05/21 05:00 BP 139/75 07/05/21 05:00 Pulse Ox 97 07/05/21 05:00 Intake & Output 07/04/21 07/05/21 07/05/21 18:59 06:59 18:59 Intake Total 873 590 Output Total 800 600 Balance 73 -10 Weight 97 kg Intake: Intake, IV Titration 400 Amount Cefepime 2 gm In Sodium 200 Chloride 0.9% 100 ml @ 25 mls/hr IVPB Q12H [facility] Rx# :[id number] Sodium Ferric Gluconat- 200 Sucrose 125 mg In Sodium Chloride 0.9% 100 ml @ 100 mls/hr IVPB DAILY [facility] Rx#:[id number] Oral 473 590 Output: Urine 800 600 Other: Voiding Method Urinal Urinal # Voids 1 # Bowel Movements 1 5 - Labs CBC & Chem 7: 07/03/21 07:17 07/04/21 16:34 Labs: Abnormal Lab Results - Last 24 Hours (Table) 07/04/21 Range/Units 16:34 Sodium 133 L (137-145) mmol/L BUN 77 H (9-20) mg/dL Creatinine 3.08 H (0.66-1.25) mg/dL Glucose 220 H (74-99) mg/dL Microbiology - Last 24 Hours (Table) 07/02/21 13:37 Gram Stain - Final Sputum Sputum Culture - Final Pseudomonas aeruginosa 07/03/21 11:00 Gram Stain - Preliminary Pleural Fluid Body Fluid Culture - Preliminary Assessment and Plan Plan: Assessment: 1. Acute kidney injury mostly prerenal initially and received IV fluids. Patient then became hypervolemic and is now on IV Lasix. Creatinine 3.08 yesterday. 2. Chronic kidney disease stage IIIb. Baseline creatinine near 1.5. Etiology is nephrosclerosis and diabetic kidney disease. 3. Acute on chronic diastolic CHF. Underwent thoracentesis on 07/03/2021 with 700 mL drained. 4. Hyperkalemia secondary to chronic kidney disease. S/p lokelma 07/01/21. Resolved. 5. Anemia of chronic kidney disease. Iron deficiency noted. Receiving IV iron. 6. Diabetes mellitus. Plan: Stop IV Lasix. Add torsemide 40 mg once daily. Follow-up morning labs. Avoid nephrotoxins. Continue to monitor renal function and urine output.
[2021-07-05] MEDS: MIDODRINE 5 MG TAB PO SCH ×3 (09:52→22:14)
[2021-07-05 09:58] LABS: Basophils # (A) 0.01 X 10*3/uL (0.00-0.10); Basophils % (A) 0.1 %; Eosinophils # (A) 0 X 10*3/uL (0.04-0.35); Eosinophils % (A) 0 %; HCT 24.9 % (39.6-50.0); HGB 7.2 g/dL (13.0-17.0); Immature Grans, Automated 4.3 %; Lymphocytes # (A) 0.52 X 10*3/uL (0.90-5.00); MCHC 28.9 g/dL (32.0-37.0); MCV 100.4 fL (80.0-97.0); Monocytes # (A) 0.35 X 10*3/uL (0.20-1.00); Monocytes % (A) 4.7 %; NRBC Per 100 WBC 0 /100 WBCS (0.0-0.0); Neutrophils # (A) 6.28 X 10*3/uL (1.80-7.70); Neutrophils % (A) 83.9 %; Platelet Count 222 X 10*3/uL (140-440); RBC 2.48 X 10*6/uL (4.40-5.60); RDW 15.3 % (11.5-14.5); WBC 7.48 X 10*3/uL (4.50-10.00)
[2021-07-05] MEDS: SODIUM FERRIC GLUCONAT-SUCROSE 125 MG in SODIUM CHLORIDE 0.9% 100 ML IVPB SCH (10:06)
[2021-07-05 10:12] LABS: African American GFR (CKD) 23.4 (60.0-200.0); Anion Gap 13.8 mmol/L (10.00-18.00); BUN/Creat Ratio 24.61 Ratio (12.00-20.00); Blood Urea Nitrogen 76.3 mg/dL (9.0-27.0); Calcium 9.3 mg/dL (8.7-10.3); Carbon Dioxide 23.2 mmol/L (20.0-27.5); Non-African American GFR(CKD) 20.2 (60.0-200.0); Potassium 5.2 mmol/L (3.5-5.5)
[2021-07-05] MEDS: TORSEMIDE 20 MG TAB PO SCH (11:07)
[2021-07-05 11:34] VITALS: BMI 26.0
[2021-07-05] MEDS: TAMSULOSIN 0.4 MG CAP.ER.24H PO SCH (13:51)
--- NOTE | 2021-07-05 14:20 | P.PN ---
<Richelle Connors M - Last Filed: 07/05/21 14:12> Subjective Progress Note Date: 07/05/21 Principal diagnosis: Shortness of breath This is a very pleasant 65-year-old male patient who resides in a local snf. He has a history of atrial fibrillation anticoagulated with Eliquis, congestive heart failure, chronic obstructive pulmonary disease, diabetes mellitus, hypothyroidism, hypertension. He is oxygen dependent normally at 4 L/m per nasal cannula. He quit smoking approximately 4 years ago after a 50 year smoking history. He was seen here last month for COPD exacerbation. He also has a history of a recent fall with a comminuted, intra-articular left distal radius fracture with markedly deformity with a date of injury approximate 7 weeks ago. He had been seen by orthopedics. Wrist brace and Dany wrap in place. He presented here to the emergency room from the [facility] on 06/24/2021 with complaints of increasing shortness of breath and hypoxemia. His oxygen was increased to 6 L nasal cannula. His x-ray revealed bilateral pleural effusions and signs of pulmonary edema with some underlying congestive heart failure. Infection not completely excluded. White count 9.5. Hemoglobin 7.5. Platelets 225. Sodium 135. Potassium 5.4. Bicarb 28. BUN 50. Creatinine 2.82. G lucose 114. Pro-calcitonin 0.30. He had been initiated on Lasix 40 mg IV every 12 hours, DuoNeb inhalations, Pulmicort inhalations, antibiotics in the form of ceftriaxone and azithromycin. Anticoagulated with Eliquis. Last evening and this morning he developed hemoptysis were consulted today 06/30/2021. He is seen on the regular medical floor. Currently sitting up in bed. Awake and alert in no acute distress. He states he is coughing up blood denying any hematemesis. Currently maintaining O2 saturation up to 100% on 5 L/m per nasal cannula. He's been afebrile. Hemodynamically stable. No further hemoptysis since earlier this morning. The patient is seen today 07/01/2021 in follow-up on the regular medical floor. He is awake and alert in no acute distress. Resting quite comfortably in bed. Denies any worsening shortness of breath, cough or congestion. Continues to maintain O2 saturations in the 90s on 5 L/m per nasal cannula. Remains afebrile. Hemodynamically stable. Ultrasound of the bilateral chest noted. The patient however is reluctant to have a thoracentesis performed at this time. He is stable from the pulmonary standpoint. Continue IV diuretics for now. He remains on bronchodilators and IV Solu-Medrol. No further hemoptysis. The patient is seen today 07/02/2021 in follow-up on the regular medical floor. He is currently resting comfortably in bed. Awake and alert in no acute distress. He denies any worsening shortness of breath. Still having some issues with blood-tinged sputum. He had declined to have a thoracentesis done. Continues to maintain good O2 saturations in the 90s on 5 L/m per nasal cannula. He's been afebrile. Hemodynamically stable. Sodium 135. Potassium 5.1. BUN 61. Creatinine 2.87. Glucose 232. He is continued on DuoNeb inhalations, Pulmicort inhalations, IV Solu-Medrol. Continued on antibiotics in the form of cefepime. The patient is seen today 07/03/2021 in follow-up on the regular medical floor. He is awake and alert in no acute distress. He is maintaining O2 saturations in the low 90s on 5 L high flow nasal cannula. Afebrile. Hemodynamically stable. CAT scan revealed evidence of cardiomegaly with bilateral pleural effusion and subsegmental pulmonary atelectasis. He did undergo a right-sided thoracentesis today with 700 mL of bloody fluid removed. Cytology and fluid analysis pending. Follow-up chest x-ray revealed no evidence of pneumothorax. There is improved aeration of the right lung base. Sputum culture pending. White count 6.4. Hemoglobin 7.7. Platelets 251. He is continued on DuoNeb inhalations, Pulmicort inhalations, IV Solu-Medrol. Continued on IV diuretics. 07/04/2021, the patient is doing well. He feels better after he underwent a thoracentesis yesterday with approximately 700 mL of pleural fluid was aspirated from the right lung. This procedure was done without any complications. No evidence of a pneumothorax and subsequent chest x-ray showed some residual atelectasis and effusion the lung bases bilaterally. The fluid seems to be an exudate based on the protein Criteria. The fluid protein was up to 3.6 and LDH level was at 136. The cultures and the cytology are still pending for now. Meanwhile, the patient has a congested cough. On March to produce any sputum. A focused on her level was low at 0.31. The renal function remains stable with a creatinine of 2.8 and a BUN of 59. Rest of the electrodes are all within normal limits. He is awake and alert. His oxygen flow is at 5 L which is at baseline for now. His hemoglobin is also at 7.7 and the patient has been awake and alert and communicating. Times a day bedside. He is receiving DuoNeb about treatments around the clock and the patient remains on IV Solu-Medrol. He is also on Lasix 40 mg IV every 12 hours. Antibiotic coverage remains with IV cefepime. On 07/05/2021 patient is seen in follow-up on medical surgical floor. Still has a congested cough, but no acute distress, is currently on 5 L of oxygen and his pulse ox is 95-97%, afebrile overnight, hemodynamically stable. Patient's sputum specimen from 07/02/2021 positive for pseudomonas aeruginosa, his pleural fluid cultures have shown no growth at 48 hour jurgen, patient currently remains on cefepime. He remains on IV steroids Solu-Medrol 40 mg every 8 hours, and nebulized bronchodilators. Objective - Vital Signs Vital signs: Vital Signs Temp 97.7 F 07/05/21 11:14 Pulse 72 07/05/21 12:02 Resp 20 07/05/21 11:14 BP 145/76 07/05/21 11:14 Pulse Ox 97 07/05/21 11:14 Intake & Output 07/04/21 07/05/21 07/05/21 18:59 06:59 18:59 Intake Total 873 590 200 Output Total 800 600 400 Balance 73 -10 -200 Weight 97 kg 97 kg Intake: Intake, IV Titration 400 200 Amount Cefepime 2 gm In Sodium 200 100 Chloride 0.9% 100 ml @ 25 mls/hr IVPB Q12H [facility] Rx# :[id number] Sodium Ferric Gluconat- 200 100 Sucrose 125 mg In Sodium Chloride 0.9% 100 ml @ 100 mls/hr IVPB DAILY [facility] Rx#:[id number] Oral 473 590 Output: Urine 800 600 400 Other: Voiding Method Urinal Urinal # Voids 1 # Bowel Movements 1 5 - Exam GENERAL EXAM: Alert, very pleasant, 65-year-old white male, on 5 L of oxygen and the pulse ox of 97% comfortable in no apparent distress. HEAD: Normocephalic/atraumatic. EYES: Normal reaction of pupils, equal size. Conjunctiva pink, sclera white. NOSE: Clear with pink turbinates. THROAT: No erythema or exudates. NECK: No masses, no JVD, no thyroid enlargement, no adenopathy. CHEST: No chest wall deformity. Symmetrical expansion. LUNGS: Equal air entry with diffuse rhonchi CVS: Regular rate and rhythm, normal S1 and S2, no gallops, no murmurs, no rubs ABDOMEN: Soft, nontender. No hepatosplenomegaly, normal bowel sounds, no guarding or rigidity. EXTREMITIES: No clubbing, no edema, no cyanosis, 2+ pulses and upper and lower extremities. MUSCULOSKELETAL: Muscle strength and tone normal. SPINE: No scoliosis or deformity SKIN: No rashes CENTRAL NERVOUS SYSTEM: Alert and oriented -3. No focal deficits, tone is normal in all 4 extremities. PSYCHIATRIC: Alert and oriented -3. Appropriate affect. Intact judgment and insight. - Labs CBC & Chem 7: 07/05/21 06:24 07/05/21 06:24 Labs: Abnormal Lab Results - Last 24 Hours (Table) 07/04/21 07/05/21 07/05/21 Range/Units 16:34 06:24 06:24 RBC 2.48 L (4.40-5.60) X 10*6/uL Hgb 7.2 L (13.0-17.0) g/dL Hct 24.9 L (39.6-50.0) % MCV 100.4 H (80.0-97.0) fL MCHC 28.9 L (32.0-37.0) g/dL RDW 15.3 H (11.5-14.5) % Immature Gran # 0.32 H (0.00-0.04) X 10*3/uL Lymphocytes # 0.52 L (0.90-5.00) X 10*3/uL Eosinophils # 0 L (0.04-0.35) X 10*3/uL Sodium 133 L (137-145) mmol/L BUN 77 H 76.3 H (9-20) mg/dL Creatinine 3.08 H 3.1 H (0.66-1.25) mg/dL Est GFR (CKD-EPI)AfAm 23.4 L (60.0-200.0) Est GFR (CKD-EPI)NonAf 20.2 L (60.0-200.0) BUN/Creatinine Ratio 24.61 H (12.00-20.00) Ratio Glucose 220 H 221 H (74-99) mg/dL Microbiology - Last 24 Hours (Table) 07/03/21 11:00 Anaerobic Culture - Preliminary Pleural Fluid 07/03/21 11:00 Gram Stain - Preliminary Pleural Fluid Body Fluid Culture - Preliminary 07/02/21 13:37 Gram Stain - Final Sputum Sputum Culture - Final Pseudomonas aeruginosa Assessment and Plan Plan: Assessment: #1. Acute on chronic hypoxic respiratory failure secondary to acute exacerbation of systolic congestive heart failure, bilateral pleural effusions, mild exacerbation of COPD with tracheobronchitis and hemoptysis. Computed tomography scan of the chest reviewed. He did undergo a right-sided thoracentesis today with 700 L of bloody fluid removed. Cytology and fluid analysis pending. Anabella nwhile, the fluid itself seems to be an exudate based on the routine criteria. LDH level is low. Fluid cytology still pending for now. Meanwhile, the repeat chest x-ray postthoracentesis showed residual bilateral pleural effusion more so in the right. There is some atelectatic changes in lung bases bilaterally. The patient remains on IV cefepime. The patient remains on IV Lasix. Renal funct ion stable. The patient is at baseline at 5 L per minute nasal cannula. This is his baseline oxygen requirements. #2. Recent fall, about 7 weeks ago, with comminuted intra-articular left distal radius fracture with marketed deformity To be followed up in the outpatient setting #3. Paroxysmal atrial fibrillation, anticoagulated with Eliquis #4. Sick sinus syndrome status post permanent pacemaker implantation #5. Former smoker with oxygen dependent COPD and normally on 4 L nasal cannula #6. Diabetes mellitus #7. Hyperlipidemia #8. Hypertension #9. Chronic kidney disease stage III #10. Prior history of alcoholism #11. History of previous left-sided pneumothorax requiring ThoraVent Plan: Continue current medical treatment Continue IV steroids and antibiotics Encourage deep breathing and coughing Encourage the patient to sit up in the chair He may need bronchoscopy with bronchoalveolar lavage if he is slow to improve and unable to clear the pulmonary secretions This was discussed with the patient and at this time he would like to continue medical treatment I performed a history & physical examination of the patient and discussed their management with my nurse practitioner, Richelle Connors. I reviewed the nurse practitioner's note and agree with the documented findings and plan of care. Lung sounds are positive for diffuse rhonchi throughout the lung man. The findings and the impression was discussed with the patient. I attest to the documentation by the nurse practitioner. I have personally seen and examined the patient, performed the documentation and the assessment and plan as written. Number of minutes spent on the visit: [10] Time with Patient: Less than 30 <Tracey Reyes - Last Filed: 07/05/21 14:27> Objective - Vital Signs Vital signs: Vital Signs Temp 97.7 F 07/05/21 11:14 Pulse 72 07/05/21 12:02 Resp 20 07/05/21 11:14 BP 145/76 07/05/21 11:14 Pulse Ox 97 07/05/21 11:14 Intake & Output 07/04/21 07/05/21 07/05/21 18:59 06:59 18:59 Intake Total 873 590 200 Output Total 800 600 600 Balance 73 -10 -400 Weight 97 kg 97 kg Intake: Intake, IV Titration 400 200 Amount Cefepime 2 gm In Sodium 200 100 Chloride 0.9% 100 ml @ 25 mls/hr IVPB Q12H [facility] Rx# :[id number] Sodium Ferric Gluconat- 200 100 Sucrose 125 mg In Sodium Chloride 0.9% 100 ml @ 100 mls/hr IVPB DAILY [facility] Rx#:[id number] Oral 473 590 Output: Urine 800 600 600 Other: Voiding Method Urinal Urinal # Voids 1 1 # Bowel Movements 1 5 - Labs CBC & Chem 7: 07/05/21 06:24 07/05/21 06:24 Labs: Abnormal Lab Results - Last 24 Hours (Table) 07/04/21 07/05/21 07/05/21 Range/Units 16:34 06:24 06:24 RBC 2.48 L (4.40-5.60) X 10*6/uL Hgb 7.2 L (13.0-17.0) g/dL Hct 24.9 L (39.6-50.0) % MCV 100.4 H (80.0-97.0) fL MCHC 28.9 L (32.0-37.0) g/dL RDW 15.3 H (11.5-14.5) % Immature Gran # 0.32 H (0.00-0.04) X 10*3/uL Lymphocytes # 0.52 L (0.90-5.00) X 10*3/uL Eosinophils # 0 L (0.04-0.35) X 10*3/uL Sodium 133 L (137-145) mmol/L BUN 77 H 76.3 H (9-20) mg/dL Creatinine 3.08 H 3.1 H (0.66-1.25) mg/dL Est GFR (CKD-EPI)AfAm 23.4 L (60.0-200.0) Est GFR (CKD-EPI)NonAf 20.2 L (60.0-200.0) BUN/Creatinine Ratio 24.61 H (12.00-20.00) Ratio Glucose 220 H 221 H (74-99) mg/dL Microbiology - Last 24 Hours (Table) 07/03/21 11:00 Anaerobic Culture - Preliminary Pleural Fluid 07/03/21 11:00 Gram Stain - Preliminary Pleural Fluid Body Fluid Culture - Preliminary 07/02/21 13:37 Gram Stain - Final Sputum Sputum Culture - Final Pseudomonas aeruginosa Assessment and Plan Plan: This is a joint evaluated was done along with a nurse practitioner. This evaluation was done and more than 20 minutes. I tested information above and I was actively involved in decision-making assessment and plan on care of this patient. On today's evaluation, the patient was found to have pseudomonas aeruginosa in his sputum. He is already on IV cefepime. I may Have a bronchoscopy for therapeutic airway suctioning as the patient has significant amount of rest or secretions which is unable to cough. The patient was quite hasn't for the procedure. He wanted to do do aggressive pulmonary toileting which I support. No need for thoracentesis at this point in time. The patient is still awaiting the pleural fluid cytology that was drained from the right lung earlier. No need for thoracentesis on the left.
--- NOTE | 2021-07-05 18:42 | P.PN ---
Subjective Progress Note Date: 07/05/21 Acute on chronic kidney disease; possibly related to overdiuresis Electrolyte imbalance; hypokalemia/hypomagnesemia 65-year-old male with an extensive PMH including COPD, chronic tobacco respiratory failure on 3 L of the cannula oxygen chronic kidney disease, systolic CHF, type II DM, hypothyroidism, hypertension, hyperlipidemia, A. fib on Eliquis, who was sent in from [facility] for shortness of breath. The patient was admitted to the hospital on 05/17/2021 for hypoxic respiratory failure secondary to COPD and pneumonia from where he was discharged to [facility]. Patient reports that since this diagnosis of COVID in 08/2020 that he has had persistent shortness of breath. He notes that it is at his baseline at the time of evaluation. He reports a chronic cough with white phlegm which is unchanged. He denied chest discomfort, nausea, vomiting, abdominal pain, diarrhea, dizziness. Reports using 3-4 L of nasal cannula oxygen continuously which has not changed. In the emergency room, laboratory evaluation was remarkable for magnesium of 0.8, BUN 63, creatinine 2.47 (up from 1.4), and potassium 5.3. EKG reveals sinus rhythm with first-degree AV block at 70 bpm with right bundle branch block. Chest x-ray revealed right greater than left bibasilar acute infiltrates along with pleural effusions concerning for CHF. Patient has been placed on IV fluids in form of normal saline; nephrology is consulted and recommending to switch to lactated Ringer; plan is to continue to monitor renal function and electrolytes closely 06/27/2021 Patient is seen and evaluated in room at bedside; complains of persistent nausea with 2 episodes of vomiting since morning Vital signs are reviewed, temperature 97.9, pulse 60, respiration 19 and blood pressure 130/61 Lab review shows sodium 137, potassium 5.3, BUN/creatinine of 45/2.1 which is improved from 55/2.5 yesterday; patient is currently on IV fluids in form of lactated Ringer Chest x-ray reveals bibasilar acute infiltrate with small bilateral pleural effusions; patient denies any any cough or sputum production; we will start empirically on IV antibiotics and monitor CBC, CRP and pro-calcitonin; further recommendations pending test results 06/28/2021 Patient is seen and evaluated in follow-up currently being closely monitored. Patient is being closely monitored by nephrology along with orthopedics being consulted as patient has been seen in the past for his left wrist fracture which is currently splinted. Patient's kidney functions continue to be elevated and will continue with gentle IV hydration for now and hold diuretics. Will repeat labs and continue to monitor closely. Patient denies chest pain, worsening shortness of breath, or palpitations. Patient is afebrile. No reports of nausea or vomiting and patient is tolerating diet. 06/29/2021 Patient is seen in follow-up this morning currently working with physical therapy and continues to be extremely weak and will be returning to rehab at [facility] once stable and discharged. Patient being closely followed by nephrology closely and currently maintained on LR at 50 mL per hour and kidney functions continue to worsen. Sodium is 134, potassium is 5.5, BUN is 50 and creatinine is 2.66 and diuretics are on hold. Hemoglobin is improved at 7.7 with no active bleeding noted. Orthopedics also evaluated the patient and ordering splint for the left wrist. Chest x-ray ordered and pending. 06/30/2021 Patient is seen in follow-up today stating he does not feel well and having generalized fatigue and weakness. Nephrology following closely and kidney fun ctions continue to worsen and have resumed IV Lasix twice daily as patient was also having some fluid volume overload. Potassium mildly elevated at 5.4 today, BUN is 50, creatinine elevated at 2.82. Patient is maintained on Eliquis twice daily and having some increasing cough and congestion and reports to having hemoptysis with bright red blood noted. Patient did receive anticoagulant today. Instructed the nurse to hold anticoagulant for now and pulmonary was consulted and pending. Chest x-ray from yesterday shows bilateral pleural effusions and chest ultrasound ordered. Patient reports to one episode of hemoptysis. Hemoglobin is stable and actually improved from previous at 7.5. Patient maintained on 5 L via nasal cannula and oxygen saturations are 100%. Wean FiO2 as tolerated. Patient denies worsening shortness of breath, chest pain, or palpitations. Patient is afebrile. Patient tolerating diet with no reports of nausea or vomiting noted. Patient reports to less urine output. 07/01/2021 Patient is seen and evaluated this morning stating he is feeling somewhat improved. Patient continues on IV Lasix 40 mg twice daily and will continue and has had some minimal improvement in creatinine and nephrology following closely. Patient's potassium also elevated at 5.7 and will give a dose of low, and repeat the labs tomorrow. Patient did have a chest ultrasound ordered for possible thoracentesis with pulmonary although patient reluctant to proceed at this time and would like to continue with IV diuresis for improvement. Patient to work with physical therapy daily and states he was up and able to walk with them today. Patient does have a self-monitoring glucometer that he alerts him on his phone of his blood sugar readings and patient has been refusing Accu-Ch eks and discussed with nursing staff about continuing to document the patient's readings from his device and continue with sliding scale and his normal medications. Patient is also reporting to some right eye dryness and requesting eyedrops. 07/02/2021 Patient is seen today and continues with a wet congested cough and continues to report hemoptysis. Pulmonary and nephrology following and patient continues with elevated kidney functions although appears stable and is maintained on twice daily IV lasix. Potassium trending down after receiving Lokelma. Pulmonary following as well and CT of the chest is ordered for the continued bilateral effusions. Patient started on IV cefepime while awaiting sputum cultures. Splint noted to the left wrist with no further complaints of increased pain at this time. Patient is lethargic on exam. Patient denies worsening shortness of breath and reports to breathing somewhat better. Patient for possible thoracentesis on the right although originally reluctant to move forward with the procedure. Eliquis on hold for this and the continued hemoptysis. Hemoglobin is stable. Iron studies also low and will receive IV Ferriclit. Labs noted with Magnesium to be 1.4. Will replace and repeat am labs. 07/03/2021 Patient evaluated today resting in bed. Still complaining of some shortness of breath associated with ambulation. Also complains of pain rated about a 4-10 to that left wrist, he states that the medication is controlling the pain when he receives it. He is on 5 L nasal cannula and oxygen saturation about 93%. Does wear between 3-5 L of nasal cannula at home. Patient had a chest CT yesterday which shows bilateral pleural effusion and subsegmental pulmonary atelectasis, currently clinically for congestive heart failure and associated pulmonary edema. Associated lung infection cannot be excluded. There is a smaller lesion in the collapsed portion of the lungs are Occluded by the computed tomography scan. Additional findings in report. Plan is for a possible thoracentesis with pulmonary services. Labs today show white count 6.4, hemoglobin 7.7, sodium 136, potassium 5.1, BUN 59, creatinine 2.8, blood glucose 191, pro-calcitonin 0.31, magnesium 2.1. Patient continues on IV Solu-Medrol, IV Lasix every 12, IV Ferrlecit, IV cefepime which was started yesterday. He is afebrile, blood pressure 135/74. 07/04/2021 Patient evaluated today resting in bed, encouraged to set up in the chair during the day. Status post right-sided thoracentesis yesterday with 700 mL of turbid colored fluid removed. Today patient is still on 5 L of nasal cannula he was hoping to have more improvement in his overall shortness of breath status post thoracentesis. Sputum culture finalized a Pseudomonas, cultures from thoracentesis pending. Continues to complain of pain to his left wrist is frustrated as he feels like he needs surgical intervention. Currently recommended to keep brace in place and removed twice a day for skin checks and remove for hygiene but otherwise wear 28/11. He will follow-up in the office with orthopedics for further evaluation. Continues on IV cefepime, IV iron, IV Lasix, IV solu-Medrol. Follow-up labs tomorrow. He does not want to return to [facility] on discharge is hoping to go to go home with his when stable. 07/05/2021 Patient is seen today and continues to be followed by pulmonary and nephrology. Kidney functions continue to be elevated and was maintained on IV Lasix and also status post thoracentesis of approx 700ml removed. Patient reports to not much improvement and continues with cough and shortness of breath. Sputum cultures showing pseudomonas and continues on IV cefepime. Patient also receiving IV iron. Patient is afebrile. WBC normal and hemoglobin is stable at 7.2. No reports of bleeding. Review of systems: Constitutional: reports of fatigue, no reports of fever, or chills Cardiovascular: No reports of chest pain or palpitations Respiratory: No reports of worsening shortness of breath , reports continued cough with no significant improvement GI: No reports of nausea, no reports of of vomiting : No reports of dysuria or retention Neurovascular: reports of generalized weakness, reports left wrist pain All medications have been reviewed PHYSICAL EXAMINATION: GENERAL: The patient is alert and oriented x3, Well developed, well nourished. Ill-appearing, appears older than stated age HEENT: Pupils are round and equally reacting to light. EOMI. does have scleral icterus. No conjunctival pallor. Normocephalic, atraumatic. No pharyngeal erythema. No thyromegaly. CARDIOVASCULAR: S1 and S2 muffled PULMONARY: diminished breath sounds bilaterally with some scattered rhonchi. ABDOMEN: soft. Nontender on exam. obese. non-distended, normoactive bowel rafael nds. No palpable organomegaly. MUSCULOSKELETAL: No joint swelling or deformity. EXTREMITIES: No cyanosis, clubbing, or pedal edema. Left wrist splint noted NEUROLOGICAL: Gross neurological examination did not reveal any focal deficits. Diffuse weakness SKIN: No rashes. fraille, thin skin with multiple areas of discoloration noted to upper extremities Assessment: Acute on chronic kidney disease possibly secondary to diuretic use, creatinine 3.1 today Acute on chronic hypoxic respiratory failure secondary to acute on chronic systolic congestive heart failure, acute exacerbation, on 5L NC Bilateral pleural effusions right greater than left s/p right sided thoracentesis with 700 cc fluid removed Hyperkalemia most likely related to acute renal injury, improved after lokelma COPD, acute exacerbation hypomagnesemia, resolved Hemoptysis, on eliquis Hypertension Hyperlipidemia hypothyroidism atrial fibrillation, paroxysmal currently rate controlled sick sinus syndrome with pacemaker placement Recent left wrist fracture status post fall 7 weeks ago showing a comminuted intra-articular left distal radius fracture with marked deformity Diabetes mellitus type 2 with hyperglycemia GI prophylaxis DVT prophylaxis resume eliquis. Full code Plan: Recommend to continue with current medications and management. Patient was on IV Lasix twice daily and is being transitioned to oral demadex with nephrology following. Iron studies low and receiving IV Iron infusions. Patient had thoracentesis done yesterday with 700ml removed and reports to no real significance in breathing. Patient being followed by pulmonary and discussing possible bronchoscopy with BAL if no improvement. Will repeat labs and continue to monitor closely. Due to multiple complex medical issues, prognosis is guard ed. The impression and plan of care has been dictated by Rochelle Salinas, nurse practitioner as directed. Dr. Garo MD I have performed a history and examination and MDM of this patient, discussed the same with the dictator, and agree with the dictator's assessment and plan as written ,documented as a scribe. Based on total visit time, I have performed more than 50% of the visit. Any additional findings or plans will be noted. Objective - Vital Signs Vital signs: Vital Signs Temp 97.7 F 07/05/21 05:00 Pulse 70 07/05/21 08:18 Resp 16 07/05/21 05:00 BP 139/75 07/05/21 05:00 Pulse Ox 97 07/05/21 05:00 Intake & Output 07/04/21 07/05/21 07/05/21 18:59 06:59 18:59 Intake Total 873 590 Output Total 800 600 Balance 73 -10 Weight 97 kg Intake: Intake, IV Titration 400 Amount Cefepime 2 gm In Sodium 200 Chloride 0.9% 100 ml @ 25 mls/hr IVPB Q12H [facility] Rx# :[id number] Sodium Ferric Gluconat- 200 Sucrose 125 mg In Sodium Chloride 0.9% 100 ml @ 100 mls/hr IVPB DAILY [facility] Rx#:[id number] Oral 473 590 Output: Urine 800 600 Other: Voiding Method Urinal Urinal # Voids 1 # Bowel Movements 1 5 - Labs CBC & Chem 7: 07/05/21 06:24 07/05/21 06:24 Labs: Abnormal Lab Results - Last 24 Hours (Table) 07/04/21 Range/Units 16:34 Sodium 133 L (137-145) mmol/L BUN 77 H (9-20) mg/dL Creatinine 3.08 H (0.66-1.25) mg/dL Glucose 220 H (74-99) mg/dL Microbiology - Last 24 Hours (Table) 07/02/21 13:37 Gram Stain - Final Sputum Sputum Culture - Final Pseudomonas aeruginosa 07/03/21 11:00 Gram Stain - Preliminary Pleural Fluid Body Fluid Culture - Preliminary
[2021-07-05] MEDS: INSULIN DETEMIR (LEVEMIR) 100 UNIT/ML SYR SQ SCH (20:21)
[2021-07-05] MEDS: METOPROLOL SUCCINATE (ER) 50 MG TAB.ER.24H PO SCH (20:22)
[2021-07-06] MEDS: methylPREDNISolone SOD SUCCI 40 MG/ML 1 ML VIAL IV SCH ×3 (00:04→16:08)
[2021-07-06] MEDS: CEFEPIME 2 GM in SODIUM CHLORIDE 0.9% 100 ML IVPB SCH ×2 (02:06→14:24)
[2021-07-06] MEDS: diphenhydrAMINE 25 MG CAP PO PRN ×2 (02:08→21:54)
[2021-07-06] MEDS: HYDROcodone/APAP 10-325MG 1 EACH TAB PO PRN ×3 (02:08→21:54)
[2021-07-06] MEDS: LOPERAMIDE 2 MG CAP PO PRN ×2 (02:08→09:19)
[2021-07-06] MEDS: INSULIN ASPART (NovoLOG) 100 UNIT/ML VIAL SQ SCH ×5 (02:12→21:49)
[2021-07-06] MEDS: LEVOTHYROXINE 25 MCG TAB PO SCH (07:37)
[2021-07-06] MEDS: PANTOPRAZOLE 40 MG TABLET PO SCH (07:37)
[2021-07-06] MEDS: BUDESONIDE 0.5 MG/2 ML NEBU INHALATION SCH ×2 (07:58→19:23)
[2021-07-06] MEDS: IPRATROPIUM-ALBUTEROL 3 ML NEB INHALATION SCH ×4 (07:58→19:22)
[2021-07-06] MEDS: MIDODRINE 5 MG TAB PO SCH ×3 (09:19→21:50)
[2021-07-06] MEDS: APIXABAN 2.5 MG TABLET PO SCH ×2 (09:19→21:50)
[2021-07-06] MEDS: TORSEMIDE 20 MG TAB PO SCH (09:20)
[2021-07-06 09:25] LABS: African American GFR (CKD) 23.4 (60.0-200.0); Anion Gap 12.1 mmol/L (10.00-18.00); BUN/Creat Ratio 27.74 Ratio (12.00-20.00); Calcium 8.9 mg/dL (8.7-10.3); Carbon Dioxide 24.9 mmol/L (20.0-27.5); Magnesium 1.9 mg/dL (1.5-2.4); Non-African American GFR(CKD) 20.2 (60.0-200.0); Potassium 4.8 mmol/L (3.5-5.5)
--- NOTE | 2021-07-06 09:44 | P.PN ---
Subjective Patient is seen in follow-up for acute kidney injury on chronic kidney disease. Renal function stable. On oral torsemide. Good urine output. Currently on 5 L nasal cannula. Blood pressure stable. Oral intake fair. No vomiting or diarrhea. Vital signs are stable. General: The patient appeared well nourished and normally developed. HEENT: Head exam is unremarkable. On nasal cannula. LUNGS: Scattered rhonchi. Breath sounds decreased. HEART: Rate and Rhythm are regular. ABDOMEN: Soft, no distention. EXTREMITITES: No edema. Objective - Vital Signs Vital signs: Vital Signs Temp 98 F 07/06/21 04:34 Pulse 72 07/06/21 08:08 Resp 18 07/06/21 08:08 BP 128/72 07/06/21 09:16 Pulse Ox 98 07/06/21 07:58 Intake & Output 07/05/21 07/06/21 07/06/21 18:59 06:59 18:59 Intake Total 400 1180 Output Total 600 Balance -200 1180 Weight 97 kg 97.5 kg Intake: Intake, IV Titration 400 100 Amount Cefepime 2 gm In Sodium 200 100 Chloride 0.9% 100 ml @ 25 mls/hr IVPB Q12H [facility] Rx# :[id number] Sodium Ferric Gluconat- 200 Sucrose 125 mg In Sodium Chloride 0.9% 100 ml @ 100 mls/hr IVPB DAILY [facility] Rx#:[id number] Oral 1080 Output: Urine 600 Other: Voiding Method Urinal # Voids 1 3 # Bowel Movements 1 - Labs CBC & Chem 7: 07/05/21 06:24 07/06/21 06:59 Labs: Abnormal Lab Results - Last 24 Hours (Table) 07/05/21 07/05/21 07/06/21 Range/Units 06:24 06:24 06:59 RBC 2.48 L (4.40-5.60) X 10*6/uL Hgb 7.2 L (13.0-17.0) g/dL Hct 24.9 L (39.6-50.0) % MCV 100.4 H (80.0-97.0) fL MCHC 28.9 L (32.0-37.0) g/dL RDW 15.3 H (11.5-14.5) % Immature Gran # 0.32 H (0.00-0.04) X 10*3/uL Lymphocytes # 0.52 L (0.90-5.00) X 10*3/uL Eosinophils # 0 L (0.04-0.35) X 10*3/uL BUN 76.3 H 86.0 H (9.0-27.0) mg/dL Creatinine 3.1 H 3.1 H (0.6-1.5) mg/dL Est GFR (CKD-EPI)AfAm 23.4 L 23.4 L (60.0-200.0) Est GFR (CKD-EPI)NonAf 20.2 L 20.2 L (60.0-200.0) BUN/Creatinine Ratio 24.61 H 27.74 H (12.00-20.00) Ratio Glucose 221 H 198 H (70-110) mg/dL Microbiology - Last 24 Hours (Table) 07/03/21 11:00 Gram Stain - Preliminary Pleural Fluid Body Fluid Culture - Preliminary 07/03/21 11:00 Anaerobic Culture - Preliminary Pleural Fluid Assessment and Plan Plan: Assessment: 1. Acute kidney injury mostly prerenal initially and received IV fluids. Patient then became hypervolemic and is now on oral diuretics. Creatinine stable at 3.1. 2. Chronic kidney disease stage IIIb. Baseline creatinine near 1.5. Etiology is nephrosclerosis and diabetic kidney disease. 3. Acute on chronic diastolic CHF. Underwent thoracentesis on 07/03/2021 with 700 mL drained. 4. Hyperkalemia secondary to chronic kidney disease. S/p lokelma 07/01/21. Resolved. 5. Anemia of chronic kidney disease. Iron deficiency noted. Status post IV iron. 6. Diabetes mellitus. 7. COPD exacerbation with tracheobronchitis and hemoptysis. Pulmonology following. May need bronchoscopy. Plan: Maintain torsemide 40 mg once daily. Avoid nephrotoxins. Continue to monitor renal function and urine output.
--- NOTE | 2021-07-06 11:23 | P.PN ---
<Richelle Connors M - Last Filed: 07/06/21 11:13> Subjective Progress Note Date: 07/06/21 Principal diagnosis: Shortness of breath This is a very pleasant 65-year-old male patient who resides in a local halfway. He has a history of atrial fibrillation anticoagulated with Eliquis, congestive heart failure, chronic obstructive pulmonary disease, diabetes mellitus, hypothyroidism, hypertension. He is oxygen dependent normally at 4 L/m per nasal cannula. He quit smoking approximately 4 years ago after a 50 year smoking history. He was seen here last month for COPD exacerbation. He also has a history of a recent fall with a comminuted, intra-articular left distal radius fracture with markedly deformity with a date of injury approximate 7 weeks ago. He had been seen by orthopedics. Wrist brace and Dany wrap in place. He presented here to the emergency room from the [facility] on 06/24/2021 with complaints of increasing shortness of breath and hypoxemia. His oxygen was increased to 6 L nasal cannula. His x-ray revealed bilateral pleural effusions and signs of pulmonary edema with some underlying congestive heart failure. Infection not completely excluded. White count 9.5. Hemoglobin 7.5. Platelets 225. Sodium 135. Potassium 5.4. Bicarb 28. BUN 50. Creatinine 2.82. G lucose 114. Pro-calcitonin 0.30. He had been initiated on Lasix 40 mg IV every 12 hours, DuoNeb inhalations, Pulmicort inhalations, antibiotics in the form of ceftriaxone and azithromycin. Anticoagulated with Eliquis. Last evening and this morning he developed hemoptysis were consulted today 06/30/2021. He is seen on the regular medical floor. Currently sitting up in bed. Awake and alert in no acute distress. He states he is coughing up blood denying any hematemesis. Currently maintaining O2 saturation up to 100% on 5 L/m per nasal cannula. He's been afebrile. Hemodynamically stable. No further hemoptysis since earlier this morning. The patient is seen today 07/01/2021 in follow-up on the regular medical floor. He is awake and alert in no acute distress. Resting quite comfortably in bed. Denies any worsening shortness of breath, cough or congestion. Continues to maintain O2 saturations in the 90s on 5 L/m per nasal cannula. Remains afebrile. Hemodynamically stable. Ultrasound of the bilateral chest noted. The patient however is reluctant to have a thoracentesis performed at this time. He is stable from the pulmonary standpoint. Continue IV diuretics for now. He remains on bronchodilators and IV Solu-Medrol. No further hemoptysis. The patient is seen today 07/02/2021 in follow-up on the regular medical floor. He is currently resting comfortably in bed. Awake and alert in no acute distress. He denies any worsening shortness of breath. Still having some issues with blood-tinged sputum. He had declined to have a thoracentesis done. Continues to maintain good O2 saturations in the 90s on 5 L/m per nasal cannula. He's been afebrile. Hemodynamically stable. Sodium 135. Potassium 5.1. BUN 61. Creatinine 2.87. Glucose 232. He is continued on DuoNeb inhalations, Pulmicort inhalations, IV Solu-Medrol. Continued on antibiotics in the form of cefepime. The patient is seen today 07/03/2021 in follow-up on the regular medical floor. He is awake and alert in no acute distress. He is maintaining O2 saturations in the low 90s on 5 L high flow nasal cannula. Afebrile. Hemodynamically stable. CAT scan revealed evidence of cardiomegaly with bilateral pleural effusion and subsegmental pulmonary atelectasis. He did undergo a right-sided thoracentesis today with 700 mL of bloody fluid removed. Cytology and fluid analysis pending. Follow-up chest x-ray revealed no evidence of pneumothorax. There is improved aeration of the right lung base. Sputum culture pending. White count 6.4. Hemoglobin 7.7. Platelets 251. He is continued on DuoNeb inhalations, Pulmicort inhalations, IV Solu-Medrol. Continued on IV diuretics. 07/04/2021, the patient is doing well. He feels better after he underwent a thoracentesis yesterday with approximately 700 mL of pleural fluid was aspirated from the right lung. This procedure was done without any complications. No evidence of a pneumothorax and subsequent chest x-ray showed some residual atelectasis and effusion the lung bases bilaterally. The fluid seems to be an exudate based on the protein Criteria. The fluid protein was up to 3.6 and LDH level was at 136. The cultures and the cytology are still pending for now. Meanwhile, the patient has a congested cough. On March to produce any sputum. A focused on her level was low at 0.31. The renal function remains stable with a creatinine of 2.8 and a BUN of 59. Rest of the electrodes are all within normal limits. He is awake and alert. His oxygen flow is at 5 L which is at baseline for now. His hemoglobin is also at 7.7 and the patient has been awake and alert and communicating. Times a day bedside. He is receiving DuoNeb about treatments around the clock and the patient remains on IV Solu-Medrol. He is also on Lasix 40 mg IV every 12 hours. Antibiotic coverage remains with IV cefepime. On 07/05/2021 patient is seen in follow-up on medical surgical floor. Still has a congested cough, but no acute distress, is currently on 5 L of oxygen and his pulse ox is 95-97%, afebrile overnight, hemodynamically stable. Patient's sputum specimen from 07/02/2021 positive for pseudomonas aeruginosa, his pleural fluid cultures have shown no growth at 48 hour jurgen, patient currently remains on cefepime. He remains on IV steroids Solu-Medrol 40 mg every 8 hours, and nebulized bronchodilators. On 07/06/2021 patient is seen in follow-up on medical surgical floor. Patient states he is feeling better today, she remains on 5 L of oxygen pulse ox is 98%, mildly congested, not bringing up much phlegm. His pleural fluid cytology is still pending at this time, his sputum culture was positive for pseudomonas aer uginosa, and patient remains on cefepime for antibiotic coverage. Remains on IV steroids with Solu-Medrol 40 mg every 8 hours. Continues on nebulized bronchodilators. Vital signs have been stable overnight. Patient states he feels like he is improving, he does not want bronchoscopy at this time and he wants to continue medical treatment. Objective - Vital Signs Vital signs: Vital Signs Temp 98 F 07/06/21 04:34 Pulse 72 07/06/21 08:08 Resp 18 07/06/21 08:08 BP 128/72 07/06/21 09:16 Pulse Ox 98 07/06/21 07:58 Intake & Output 07/05/21 07/06/21 07/06/21 18:59 06:59 18:59 Intake Total 400 1180 Output Total 600 600 Balance -200 1180 -600 Weight 97 kg 97.5 kg Intake: Intake, IV Titration 400 100 Amount Cefepime 2 gm In Sodium 200 100 Chloride 0.9% 100 ml @ 25 mls/hr IVPB Q12H [facility] Rx# :[id number] Sodium Ferric Gluconat- 200 Sucrose 125 mg In Sodium Chloride 0.9% 100 ml @ 100 mls/hr IVPB DAILY [facility] Rx#:[id number] Oral 1080 Output: Urine 600 600 Other: Voiding Method Urinal Urinal # Voids 1 3 # Bowel Movements 1 - Exam GENERAL EXAM: Alert, very pleasant, 65-year-old white male, on 5 L of oxygen and the pulse ox of 97% comfortable in no apparent distress. HEAD: Normocephalic/atraumatic. EYES: Normal reaction of pupils, equal size. Conjunctiva pink, sclera white. NOSE: Clear with pink turbinates. THROAT: No erythema or exudates. NECK: No masses, no JVD, no thyroid enlargement, no adenopathy. CHEST: No chest wall deformity. Symmetrical expansion. LUNGS: Equal air entry with diffuse rhonchi CVS: Regular rate and rhythm, normal S1 and S2, no gallops, no murmurs, no rubs ABDOMEN: Soft, nontender. No hepatosplenomegaly, normal bowel sounds, no guarding or rigidity. EXTREMITIES: No clubbing, no edema, no cyanosis, 2+ pulses and upper and lower extremities. MUSCULOSKELETAL: Muscle strength and tone normal. SPINE: No scoliosis or deformity SKIN: No rashes CENTRAL NERVOUS SYSTEM: Alert and oriented -3. No focal deficits, tone is normal in all 4 extremities. PSYCHIATRIC: Alert and oriented -3. Appropriate affect. Intact judgment and insight. - Labs CBC & Chem 7: 07/05/21 06:24 07/06/21 06:59 Labs: Abnormal Lab Results - Last 24 Hours (Table) 07/06/21 Range/Units 06:59 BUN 86.0 H (9.0-27.0) mg/dL Creatinine 3.1 H (0.6-1.5) mg/dL Est GFR (CKD-EPI)AfAm 23.4 L (60.0-200.0) Est GFR (CKD-EPI)NonAf 20.2 L (60.0-200.0) BUN/Creatinine Ratio 27.74 H (12.00-20.00) Ratio Glucose 198 H (70-110) mg/dL Microbiology - Last 24 Hours (Table) 07/03/21 11:00 Gram Stain - Preliminary Pleural Fluid Body Fluid Culture - Preliminary 07/03/21 11:00 Anaerobic Culture - Preliminary Pleural Fluid Assessment and Plan Plan: Assessment: #1. Acute on chronic hypoxic respiratory failure secondary to acute exacerbation of systolic congestive heart failure, bilateral pleural effusions, mild exacerbation of COPD with tracheobronchitis and hemoptysis. Computed tomography scan of the chest reviewed. He did undergo a right-sided thoracentesis today with 700 L of bloody fluid removed. Cytology and fluid analysis pending. M eanwhile, the fluid itself seems to be an exudate based on the routine criteria. LDH level is low. Fluid cytology still pending for now. Meanwhile, the repeat chest x-ray postthoracentesis showed residual bilateral pleural effusion more so in the right. There is some atelectatic changes in lung bases bilaterally. The patient remains on IV cefepime. The patient remains on IV Lasix. Renal fun ction stable. The patient is at baseline at 5 L per minute nasal cannula. This is his baseline oxygen requirements. #2. Recent fall, about 7 weeks ago, with comminuted intra-articular left distal radius fracture with marked deformity To be followed up in the outpatient setting #3. Paroxysmal atrial fibrillation, anticoagulated with Eliquis #4. Sick sinus syndrome status post permanent pacemaker implantation #5. Former smoker with oxygen dependent COPD and normally on 4 L nasal cannula #6. Diabetes mellitus #7. Hyperlipidemia #8. Hypertension #9. Chronic kidney disease stage III #10. Prior history of alcoholism #11. History of previous left-sided pneumothorax requiring ThoraVent Plan: Patient is improving Continue current medical treatment Continue IV steroids and antibiotics We will add flutter valve, incentive spirometer Increase activity as tolerated Encourage deep breathing and coughing Continue medical treatment, no plans for bronchoscopy at this time I performed a history & physical examination of the patient and discussed their management with my nurse practitioner, Richelle Connors. I reviewed the nurse practitioner's note and agree with the documented findings and plan of care. Lung sounds are positive for diffuse rhonchi throughout the lung man. The f indings and the impression was discussed with the patient. I attest to the documentation by the nurse practitioner. I have personally seen and examined the patient, performed the documentation and the assessment and plan as written. Number of minutes spent on the visit: [10] Time with Patient: Less than 30 <[email or web address] - Last Filed: 07/06/21 18:10> Objective - Vital Signs Vital signs: Vital Signs Temp 97.8 F 07/06/21 11:51 Pulse 78 07/06/21 16:05 Resp 18 07/06/21 15:46 BP 129/66 07/06/21 16:05 Pulse Ox 96 07/06/21 15:37 Intake & Output 07/05/21 07/06/21 07/06/21 18:59 06:59 18:59 Intake Total 400 1180 Output Total 600 1100 Balance -200 1180 -1100 Weight 97 kg 97.5 kg Intake: Intake, IV Titration 400 100 Amount Cefepime 2 gm In Sodium 200 100 Chloride 0.9% 100 ml @ 25 mls/hr IVPB Q12H [facility] Rx# :[id number] Sodium Ferric Gluconat- 200 Sucrose 125 mg In Sodium Chloride 0.9% 100 ml @ 100 mls/hr IVPB DAILY [facility] Rx#:[id number] Oral 1080 Output: Urine 600 1100 Other: Voiding Method Urinal Urinal # Voids 1 3 # Bowel Movements 1 - Labs CBC & Chem 7: 07/05/21 06:24 07/06/21 06:59 Labs: Abnormal Lab Results - Last 24 Hours (Table) 07/06/21 07/06/21 Range/Units 06:59 18:02 BUN 86.0 H (9.0-27.0) mg/dL Creatinine 3.1 H (0.6-1.5) mg/dL Est GFR (CKD-EPI)AfAm 23.4 L (60.0-200.0) Est GFR (CKD-EPI)NonAf 20.2 L (60.0-200.0) BUN/Creatinine Ratio 27.74 H (12.00-20.00) Ratio Glucose 198 H (70-110) mg/dL POC Glucose (mg/dL) 400 H (75-99) mg/dL Microbiology - Last 24 Hours (Table) 07/03/21 11:00 Gram Stain - Preliminary Pleural Fluid Body Fluid Culture - Preliminary 07/03/21 11:00 Anaerobic Culture - Preliminary Pleural Fluid Assessment and Plan Plan: I have personally seen and examined the patient and reviewed the documentation. I performed a joint evaluation with the nurse practitioner in this evaluation was done more than 20 minutes. I fully agree with the documentation above and the plan of care.
[2021-07-06] MEDS: TAMSULOSIN 0.4 MG CAP.ER.24H PO SCH (14:24)
--- NOTE | 2021-07-06 14:36 | P.PN ---
Subjective Progress Note Date: 07/06/21 Acute on chronic kidney disease; possibly related to overdiuresis Electrolyte imbalance; hypokalemia/hypomagnesemia 65-year-old male with an extensive PMH including COPD, chronic tobacco respiratory failure on 3 L of the cannula oxygen chronic kidney disease, systolic CHF, type II DM, hypothyroidism, hypertension, hyperlipidemia, A. fib on Eliquis, who was sent in from [facility] for shortness of breath. The patient was admitted to the hospital on 05/17/2021 for hypoxic respiratory failure secondary to COPD and pneumonia from where he was discharged to [facility]. Patient reports that since this diagnosis of COVID in 08/2020 that he has had persistent shortness of breath. He notes that it is at his baseline at the time of evaluation. He reports a chronic cough with white phlegm which is unchanged. He denied chest discomfort, nausea, vomiting, abdominal pain, diarrhea, dizziness. Reports using 3-4 L of nasal cannula oxygen continuously which has not changed. In the emergency room, laboratory evaluation was remarkable for magnesium of 0.8, BUN 63, creatinine 2.47 (up from 1.4), and potassium 5.3. EKG reveals sinus rhythm with first-degree AV block at 70 bpm with right bundle branch block. Chest x-ray revealed right greater than left bibasilar acute infiltrates along with pleural effusions concerning for CHF. Patient has been placed on IV fluids in form of normal saline; nephrology is consulted and recommending to switch to lactated Ringer; plan is to continue to monitor renal function and electrolytes closely 06/27/2021 Patient is seen and evaluated in room at bedside; complains of persistent nausea with 2 episodes of vomiting since morning Vital signs are reviewed, temperature 97.9, pulse 60, respiration 19 and blood pressure 130/61 Lab review shows sodium 137, potassium 5.3, BUN/creatinine of 45/2.1 which is improved from 55/2.5 yesterday; patient is currently on IV fluids in form of lactated Ringer Chest x-ray reveals bibasilar acute infiltrate with small bilateral pleural effusions; patient denies any any cough or sputum production; we will start empirically on IV antibiotics and monitor CBC, CRP and pro-calcitonin; further recommendations pending test results 06/28/2021 Patient is seen and evaluated in follow-up currently being closely monitored. Patient is being closely monitored by nephrology along with orthopedics being consulted as patient has been seen in the past for his left wrist fracture which is currently splinted. Patient's kidney functions continue to be elevated and will continue with gentle IV hydration for now and hold diuretics. Will repeat labs and continue to monitor closely. Patient denies chest pain, worsening shortness of breath, or palpitations. Patient is afebrile. No reports of nausea or vomiting and patient is tolerating diet. 06/29/2021 Patient is seen in follow-up this morning currently working with physical therapy and continues to be extremely weak and will be returning to rehab at [facility] once stable and discharged. Patient being closely followed by nephrology closely and currently maintained on LR at 50 mL per hour and kidney functions continue to worsen. Sodium is 134, potassium is 5.5, BUN is 50 and creatinine is 2.66 and diuretics are on hold. Hemoglobin is improved at 7.7 with no active bleeding noted. Orthopedics also evaluated the patient and ordering splint for the left wrist. Chest x-ray ordered and pending. 06/30/2021 Patient is seen in follow-up today stating he does not feel well and having generalized fatigue and weakness. Nephrology following closely and kidney fun ctions continue to worsen and have resumed IV Lasix twice daily as patient was also having some fluid volume overload. Potassium mildly elevated at 5.4 today, BUN is 50, creatinine elevated at 2.82. Patient is maintained on Eliquis twice daily and having some increasing cough and congestion and reports to having hemoptysis with bright red blood noted. Patient did receive anticoagulant today. Instructed the nurse to hold anticoagulant for now and pulmonary was consulted and pending. Chest x-ray from yesterday shows bilateral pleural effusions and chest ultrasound ordered. Patient reports to one episode of hemoptysis. Hemoglobin is stable and actually improved from previous at 7.5. Patient maintained on 5 L via nasal cannula and oxygen saturations are 100%. Wean FiO2 as tolerated. Patient denies worsening shortness of breath, chest pain, or palpitations. Patient is afebrile. Patient tolerating diet with no reports of nausea or vomiting noted. Patient reports to less urine output. 07/01/2021 Patient is seen and evaluated this morning stating he is feeling somewhat improved. Patient continues on IV Lasix 40 mg twice daily and will continue and has had some minimal improvement in creatinine and nephrology following closely. Patient's potassium also elevated at 5.7 and will give a dose of low, and repeat the labs tomorrow. Patient did have a chest ultrasound ordered for possible thoracentesis with pulmonary although patient reluctant to proceed at this time and would like to continue with IV diuresis for improvement. Patient to work with physical therapy daily and states he was up and able to walk with them today. Patient does have a self-monitoring glucometer that he alerts him on his phone of his blood sugar readings and patient has been refusing Accu-Ch eks and discussed with nursing staff about continuing to document the patient's readings from his device and continue with sliding scale and his normal medications. Patient is also reporting to some right eye dryness and requesting eyedrops. 07/02/2021 Patient is seen today and continues with a wet congested cough and continues to report hemoptysis. Pulmonary and nephrology following and patient continues with elevated kidney functions although appears stable and is maintained on twice daily IV lasix. Potassium trending down after receiving Lokelma. Pulmonary following as well and CT of the chest is ordered for the continued bilateral effusions. Patient started on IV cefepime while awaiting sputum cultures. Splint noted to the left wrist with no further complaints of increased pain at this time. Patient is lethargic on exam. Patient denies worsening shortness of breath and reports to breathing somewhat better. Patient for possible thoracentesis on the right although originally reluctant to move forward with the procedure. Eliquis on hold for this and the continued hemoptysis. Hemoglobin is stable. Iron studies also low and will receive IV Ferriclit. Labs noted with Magnesium to be 1.4. Will replace and repeat am labs. 07/03/2021 Patient evaluated today resting in bed. Still complaining of some shortness of breath associated with ambulation. Also complains of pain rated about a 4-10 to that left wrist, he states that the medication is controlling the pain when he receives it. He is on 5 L nasal cannula and oxygen saturation about 93%. Does wear between 3-5 L of nasal cannula at home. Patient had a chest CT yesterday which shows bilateral pleural effusion and subsegmental pulmonary atelectasis, currently clinically for congestive heart failure and associated pulmonary edema. Associated lung infection cannot be excluded. There is a smaller lesion in the collapsed portion of the lungs are Occluded by the computed tomography scan. Additional findings in report. Plan is for a possible thoracentesis with pulmonary services. Labs today show white count 6.4, hemoglobin 7.7, sodium 136, potassium 5.1, BUN 59, creatinine 2.8, blood glucose 191, pro-calcitonin 0.31, magnesium 2.1. Patient continues on IV Solu-Medrol, IV Lasix every 12, IV Ferrlecit, IV cefepime which was started yesterday. He is afebrile, blood pressure 135/74. 07/04/2021 Patient evaluated today resting in bed, encouraged to set up in the chair during the day. Status post right-sided thoracentesis yesterday with 700 mL of turbid colored fluid removed. Today patient is still on 5 L of nasal cannula he was hoping to have more improvement in his overall shortness of breath status post thoracentesis. Sputum culture finalized a Pseudomonas, cultures from thoracentesis pending. Continues to complain of pain to his left wrist is frustrated as he feels like he needs surgical intervention. Currently recommended to keep brace in place and removed twice a day for skin checks and remove for hygiene but otherwise wear 28/11. He will follow-up in the office with orthopedics for further evaluation. Continues on IV cefepime, IV iron, IV Lasix, IV solu-Medrol. Follow-up labs tomorrow. He does not want to return to [facility] on discharge is hoping to go to go home with his when stable. 07/05/2021 Patient is seen today and continues to be followed by pulmonary and nephrology. Kidney functions continue to be elevated and was maintained on IV Lasix and also status post thoracentesis of approx 700ml removed. Patient reports to not much improvement and continues with cough and shortness of breath. Sputum cultures showing pseudomonas and continues on IV cefepime. Patient also receiving IV iron. Patient is afebrile. WBC normal and hemoglobin is stable at 7.2. No reports of bleeding. 07/06/2021 Patient is seen and evaluated this morning states he is feeling much better and breathing more comfortably. Patient continues on 5 L with oxygen saturation of 100% stress with nursing staff about weaning as tolerated. Plans were for possible bronchoscopy although patient would like to continue with conservative management and avoid the bronchoscopy if possible. Pulmonary is following and have added flutter valve with incentive spirometer and encourage the patient to continue using at least 10 times every hour while awake. Patient also continues on IV cefepime as there was pseudomonas aeruginosa growing in the sputum culture. Pleural fluid cultures thus far have been negative. Patient is afebrile. Patient also being followed by nephrology and kidney functions continue to be elevated with a BUN of 86 and a creatinine is stable at 3.1, sodium is 136, potassium is 4.8, magnesium is 1.9 and patient is maintained on oral Demadex daily and will continue. Patient continues with weakness and working with physical therapy and states would like to return home on discharge as opposed to going to ECF and will discuss further with the patient along with case management and social work about discharge planning. Review of systems: Constitutional: no reports of fatigue, no reports of fever, or chills, reports feeling improved today Cardiovascular: No reports of chest pain or palpitations Respiratory: No reports of worsening shortness of breath , reports continued cough with some improvement GI: No reports of nausea, no reports of of vomiting : No reports of dysuria or retention Neurovascular: reports of generalized weakness All medications have been reviewed PHYSICAL EXAMINATION: GENERAL: The patient is alert and oriented x3, Well developed, well nourished. Ill-appearing, appears older than stated age HEENT: Pupils are round and equally reacting to light. EOMI. does have scleral icterus. No conjunctival pallor. Normocephalic, atraumatic. No pharyngeal erythema. No thyromegaly. CARDIOVASCULAR: S1 and S2 muffled PULMONARY: diminished breath sounds bilaterally with some scattered rhonchi. ABDOMEN: soft. Nontender on exam. obese. non-distended, normoactive bowel sounds. No palpable organomegaly. MUSCULOSKELETAL: No joint swelling or deformity. EXTREMITIES: No cyanosis, clubbing, or pedal edema. Left wrist splint noted NEUROLOGICAL: Gross neurological examination did not reveal any focal deficits. Diffuse weakness SKIN: No rashes. fraille, thin skin with multiple areas of discoloration noted to upper extremities Assessment: Acute on chronic kidney disease possibly secondary to diuretic use, creatinine 3.1 today Acute on chronic hypoxic respiratory failure secondary to acute on chronic systolic congestive heart failure, acute exacerbation, on 5L NC Bilateral pleural effusions right greater than left s/p right sided thoracentesis with 700 cc fluid removed Pseudomonas aeruginosa growing in the sputum culture Hyperkalemia most likely related to acute renal injury, improved after lokelma COPD, acute exacerbation hypomagnesemia, resolved Hemoptysis, on eliquis Hypertension Hyperlipidemia hypothyroidism atrial fibrillation, paroxysmal currently rate controlled sick sinus syndrome with pacemaker placement Recent left wrist fracture status post fall 7 weeks ago showing a comminuted intra-articular left distal radius fracture with marked deformity Diabetes mellitus type 2 with hyperglycemia GI prophylaxis DVT prophylaxis resume eliquis. Full code Plan: Recommend to continue with current medications and management. Patient is maintained on oral torsemide 40 mg daily with nephrology following. Kidney functions appear stable with creatinine at 3.1. Patient being followed by pulmonary and discussing possible bronchoscopy with BAL if no improvement patient will like to continue with conservative management for now. Will repeat labs and continue to monitor closely. Patient to work with physical therapy daily and plan was originally for patient to return to [facility]CF for continued PT/OT therapy although patient is reporting he would like to return home with home care and will discuss further with case management and social work along with patient and family about discharge planning. Due to multiple complex medical issues, prognosis is guarded. The impression and plan of care has been dictated by Rochelle Salinas, nurse practitioner as directed. Dr. Garo MD I have performed a history and examination and MDM of this patient, discussed the same with the dictator, and agree with the dictator's assessment and plan as written ,documented as a scribe. Based on total visit time, I have performed more than 50% of the visit. Any additional findings or plans will be noted. Objective - Vital Signs Vital signs: Vital Signs Temp 98 F 07/06/21 04:34 Pulse 72 07/06/21 08:08 Resp 18 07/06/21 08:08 BP 133/73 07/06/21 04:34 Pulse Ox 98 07/06/21 07:58 Intake & Output 07/05/21 07/06/21 07/06/21 18:59 06:59 18:59 Intake Total 400 1180 Output Total 600 Balance -200 1180 Weight 97 kg 97.5 kg Intake: Intake, IV Titration 400 100 Amount Cefepime 2 gm In Sodium 200 100 Chloride 0.9% 100 ml @ 25 mls/hr IVPB Q12H [facility] Rx# :[id number] Sodium Ferric Gluconat- 200 Sucrose 125 mg In Sodium Chloride 0.9% 100 ml @ 100 mls/hr IVPB DAILY [facility] Rx#:[id number] Oral 1080 Output: Urine 600 Other: Voiding Method Urinal # Voids 1 3 # Bowel Movements 1 - Labs CBC & Chem 7: 07/05/21 06:24 07/06/21 06:59 Labs: Abnormal Lab Results - Last 24 Hours (Table) 07/05/21 07/05/21 Range/Units 06:24 06:24 RBC 2.48 L (4.40-5.60) X 10*6/uL Hgb 7.2 L (13.0-17.0) g/dL Hct 24.9 L (39.6-50.0) % MCV 100.4 H (80.0-97.0) fL MCHC 28.9 L (32.0-37.0) g/dL RDW 15.3 H (11.5-14.5) % Immature Gran # 0.32 H (0.00-0.04) X 10*3/uL Lymphocytes # 0.52 L (0.90-5.00) X 10*3/uL Eosinophils # 0 L (0.04-0.35) X 10*3/uL BUN 76.3 H (9.0-27.0) mg/dL Creatinine 3.1 H (0.6-1.5) mg/dL Est GFR (CKD-EPI)AfAm 23.4 L (60.0-200.0) Est GFR (CKD-EPI)NonAf 20.2 L (60.0-200.0) BUN/Creatinine Ratio 24.61 H (12.00-20.00) Ratio Glucose 221 H (70-110) mg/dL Microbiology - Last 24 Hours (Table) 07/03/21 11:00 Anaerobic Culture - Preliminary Pleural Fluid 07/03/21 11:00 Gram Stain - Preliminary Pleural Fluid Body Fluid Culture - Preliminary
[2021-07-06 18:04] LABS: Glucose,Whole Blood 400 mg/dL (75-99)
[2021-07-06 21:22] LABS: Glucose,Whole Blood 408 mg/dL (75-99)
[2021-07-06] MEDS: METOPROLOL SUCCINATE (ER) 50 MG TAB.ER.24H PO SCH (21:49)
[2021-07-06] MEDS: INSULIN DETEMIR (LEVEMIR) 100 UNIT/ML SYR SQ SCH (21:49)
[2021-07-07] MEDS: methylPREDNISolone SOD SUCCI 40 MG/ML 1 ML VIAL IV SCH ×2 (00:56→08:06)
[2021-07-07] MEDS: CEFEPIME 2 GM in SODIUM CHLORIDE 0.9% 100 ML IVPB SCH ×2 (00:57→12:57)
[2021-07-07] MEDS: INSULIN ASPART (NovoLOG) 100 UNIT/ML VIAL SQ SCH ×3 (02:02→13:03)
[2021-07-07 05:07] VITALS: RESP 20
[2021-07-07] MEDS: IPRATROPIUM-ALBUTEROL 3 ML NEB INHALATION SCH ×2 (07:26→11:20)
[2021-07-07] MEDS: BUDESONIDE 0.5 MG/2 ML NEBU INHALATION SCH (07:26)
[2021-07-07] MEDS: TORSEMIDE 20 MG TAB PO SCH (08:05)
[2021-07-07] MEDS: MIDODRINE 5 MG TAB PO SCH (08:05)
[2021-07-07] MEDS: PANTOPRAZOLE 40 MG TABLET PO SCH (08:06)
[2021-07-07] MEDS: HYDROcodone/APAP 10-325MG 1 EACH TAB PO PRN (08:06)
[2021-07-07] MEDS: APIXABAN 2.5 MG TABLET PO SCH (08:07)
[2021-07-07] MEDS: LEVOTHYROXINE 25 MCG TAB PO SCH (08:07)
[2021-07-07] MEDS: LOPERAMIDE 2 MG CAP PO PRN (08:19)
[2021-07-07] MEDS: diphenhydrAMINE 25 MG CAP PO PRN (08:19)
--- NOTE | 2021-07-07 09:43 | P.PN ---
Subjective Patient is seen in follow-up for acute kidney injury on chronic kidney disease. Creatinine stable at 3.1 yesterday. On oral torsemide. Good urine output. Currently on 5 L nasal cannula. Blood pressure stable. Oral intake fair. No vomiting but has diarrhea which she states is chronic. Vital signs are stable. General: The patient appeared well nourished and normally developed. HEENT: Head exam is unremarkable. On nasal cannula. LUNGS: Scattered rhonchi. Breath sounds decreased. HEART: Rate and Rhythm are regular. ABDOMEN: Soft, no distention. EXTREMITITES: No edema. Objective - Vital Signs Vital signs: Vital Signs Temp 97.8 F 07/07/21 05:00 Pulse 69 07/07/21 07:38 Resp 20 07/07/21 05:00 BP 133/72 07/07/21 05:00 Pulse Ox 99 07/07/21 07:26 Intake & Output 07/06/21 07/07/21 07/07/21 18:59 06:59 18:59 Intake Total 100 640 Output Total 1100 Balance -1000 640 Weight 97.5 kg Intake: Intake, IV Titration 100 100 Amount Cefepime 2 gm In Sodium 100 100 Chloride 0.9% 100 ml @ 25 mls/hr IVPB Q12H [facility] Rx# :[id number] Oral 540 Output: Urine 1100 Other: Voiding Method Urinal # Voids 1 - Labs CBC & Chem 7: 07/05/21 06:24 07/06/21 06:59 Labs: Abnormal Lab Results - Last 24 Hours (Table) 07/06/21 07/06/21 Range/Units 18:02 21:21 POC Glucose (mg/dL) 400 H 408 H (75-99) mg/dL Microbiology - Last 24 Hours (Table) 07/03/21 11:00 Gram Stain - Final Pleural Fluid Body Fluid Culture - Final Assessment and Plan Plan: Assessment: 1. Acute kidney injury mostly prerenal initially and received IV fluids. Patient then became hypervolemic and is now on oral diuretics. Creatinine stable at 3.1 yesterday. 2. Chronic kidney disease stage IIIb. Baseline creatinine near 1.5. Etiology is nephrosclerosis and diabetic kidney disease. 3. Acute on chronic diastolic CHF. Underwent thoracentesis on 07/03/2021 with 700 mL drained. 4. Hyperkalemia secondary to chronic kidney disease. S/p lokelma 2/24/22. Resolved. 5. Anemia of chronic kidney disease. Iron deficiency noted. Status post IV iron. 6. Diabetes mellitus. 7. COPD exacerbation with tracheobronchitis and hemoptysis. Pulmonology following. No plans for bronchoscopy. Plan: Maintain torsemide 40 mg once daily. Avoid nephrotoxins. Continue to monitor renal function and urine output. Morning labs pending.
--- NOTE | 2021-07-07 10:50 | P.PN ---
<Richelle Connors M - Last Filed: 07/07/21 10:40> Subjective Progress Note Date: 07/07/21 Principal diagnosis: Shortness of breath This is a very pleasant 65-year-old male patient who resides in a local long term. He has a history of atrial fibrillation anticoagulated with Eliquis, congestive heart failure, chronic obstructive pulmonary disease, diabetes mellitus, hypothyroidism, hypertension. He is oxygen dependent normally at 4 L/m per nasal cannula. He quit smoking approximately 4 years ago after a 50 year smoking history. He was seen here last month for COPD exacerbation. He also has a history of a recent fall with a comminuted, intra-articular left distal radius fracture with markedly deformity with a date of injury approximate 7 weeks ago. He had been seen by orthopedics. Wrist brace and Dany wrap in place. He presented here to the emergency room from the [facility] on 06/24/2021 with complaints of increasing shortness of breath and hypoxemia. His oxygen was increased to 6 L nasal cannula. His x-ray revealed bilateral pleural effusions and signs of pulmonary edema with some underlying congestive heart failure. Infection not completely excluded. White count 9.5. Hemoglobin 7.5. Platelets 225. Sodium 135. Potassium 5.4. Bicarb 28. BUN 50. Creatinine 2.82. G lucose 114. Pro-calcitonin 0.30. He had been initiated on Lasix 40 mg IV every 12 hours, DuoNeb inhalations, Pulmicort inhalations, antibiotics in the form of ceftriaxone and azithromycin. Anticoagulated with Eliquis. Last evening and this morning he developed hemoptysis were consulted today 06/30/2021. He is seen on the regular medical floor. Currently sitting up in bed. Awake and alert in no acute distress. He states he is coughing up blood denying any hematemesis. Currently maintaining O2 saturation up to 100% on 5 L/m per nasal cannula. He's been afebrile. Hemodynamically stable. No further hemoptysis since earlier this morning. The patient is seen today 07/01/2021 in follow-up on the regular medical floor. He is awake and alert in no acute distress. Resting quite comfortably in bed. Denies any worsening shortness of breath, cough or congestion. Continues to maintain O2 saturations in the 90s on 5 L/m per nasal cannula. Remains afebrile. Hemodynamically stable. Ultrasound of the bilateral chest noted. The patient however is reluctant to have a thoracentesis performed at this time. He is stable from the pulmonary standpoint. Continue IV diuretics for now. He remains on bronchodilators and IV Solu-Medrol. No further hemoptysis. The patient is seen today 07/02/2021 in follow-up on the regular medical floor. He is currently resting comfortably in bed. Awake and alert in no acute distress. He denies any worsening shortness of breath. Still having some issues with blood-tinged sputum. He had declined to have a thoracentesis done. Continues to maintain good O2 saturations in the 90s on 5 L/m per nasal cannula. He's been afebrile. Hemodynamically stable. Sodium 135. Potassium 5.1. BUN 61. Creatinine 2.87. Glucose 232. He is continued on DuoNeb inhalations, Pulmicort inhalations, IV Solu-Medrol. Continued on antibiotics in the form of cefepime. The patient is seen today 07/03/2021 in follow-up on the regular medical floor. He is awake and alert in no acute distress. He is maintaining O2 saturations in the low 90s on 5 L high flow nasal cannula. Afebrile. Hemodynamically stable. CAT scan revealed evidence of cardiomegaly with bilateral pleural effusion and subsegmental pulmonary atelectasis. He did undergo a right-sided thoracentesis today with 700 mL of bloody fluid removed. Cytology and fluid analysis pending. Follow-up chest x-ray revealed no evidence of pneumothorax. There is improved aeration of the right lung base. Sputum culture pending. White count 6.4. Hemoglobin 7.7. Platelets 251. He is continued on DuoNeb inhalations, Pulmicort inhalations, IV Solu-Medrol. Continued on IV diuretics. 07/04/2021, the patient is doing well. He feels better after he underwent a thoracentesis yesterday with approximately 700 mL of pleural fluid was aspirated from the right lung. This procedure was done without any complications. No evidence of a pneumothorax and subsequent chest x-ray showed some residual atelectasis and effusion the lung bases bilaterally. The fluid seems to be an exudate based on the protein Criteria. The fluid protein was up to 3.6 and LDH level was at 136. The cultures and the cytology are still pending for now. Meanwhile, the patient has a congested cough. On March to produce any sputum. A focused on her level was low at 0.31. The renal function remains stable with a creatinine of 2.8 and a BUN of 59. Rest of the electrodes are all within normal limits. He is awake and alert. His oxygen flow is at 5 L which is at baseline for now. His hemoglobin is also at 7.7 and the patient has been awake and alert and communicating. Times a day bedside. He is receiving DuoNeb about treatments around the clock and the patient remains on IV Solu-Medrol. He is also on Lasix 40 mg IV every 12 hours. Antibiotic coverage remains with IV cefepime. On 07/05/2021 patient is seen in follow-up on medical surgical floor. Still has a congested cough, but no acute distress, is currently on 5 L of oxygen and his pulse ox is 95-97%, afebrile overnight, hemodynamically stable. Patient's sputum specimen from 07/02/2021 positive for pseudomonas aeruginosa, his pleural fluid cultures have shown no growth at 48 hour jurgen, patient currently remains on cefepime. He remains on IV steroids Solu-Medrol 40 mg every 8 hours, and nebulized bronchodilators. On 07/06/2021 patient is seen in follow-up on medical surgical floor. Patient states he is feeling better today, she remains on 5 L of oxygen pulse ox is 98%, mildly congested, not bringing up much phlegm. His pleural fluid cytology is still pending at this time, his sputum culture was positive for pseudomonas aer uginosa, and patient remains on cefepime for antibiotic coverage. Remains on IV steroids with Solu-Medrol 40 mg every 8 hours. Continues on nebulized bronchodilators. Vital signs have been stable overnight. Patient states he feels like he is improving, he does not want bronchoscopy at this time and he wants to continue medical treatment. On 07/07/2021 patient seen in follow-up on medical surgical floor. Patient is breathing comfortably, his cough is still mildly congested, but overall impr oving. No chest discomfort, no hemoptysis, patient was given a flutter valve, and an incentive spirometer, he states he is achieving only 500 on his incentive spirometer, overall he is weak. Patient continues on IV steroids, continues on antibiotics in the form of cefepime for evidence of Pseudomonas in his sputum. Vital signs have been stable, his oxygenation is quite satisfactory on his home dose O2 at 5 L his pulse ox is 99%. He states he is having diarrhea and the patient had 3 bouts of diarrhea this morning, we'll send a stool for C. diff. No abdominal discomfort, no altered mental status, no fever or chills overnight. His pleural fluid cytology showed mostly cytologically malignant cells. Objective - Vital Signs Vital signs: Vital Signs Temp 97.8 F 07/07/21 05:00 Pulse 69 07/07/21 07:38 Resp 20 07/07/21 05:00 BP 133/72 07/07/21 05:00 Pulse Ox 99 07/07/21 07:26 Intake & Output 07/06/21 07/07/21 07/07/21 18:59 06:59 18:59 Intake Total 100 640 Output Total 1100 Balance -1000 640 Weight 97.5 kg Intake: Intake, IV Titration 100 100 Amount Cefepime 2 gm In Sodium 100 100 Chloride 0.9% 100 ml @ 25 mls/hr IVPB Q12H [facility] Rx# :[id number] Oral 540 Output: Urine 1100 Other: Voiding Method Urinal Urinal # Voids 1 - Exam GENERAL EXAM: Alert, very pleasant, 65-year-old white male, on 5 L of oxygen and the pulse ox of 97% comfortable in no apparent distress. HEAD: Normocephalic/atraumatic. EYES: Normal reaction of pupils, equal size. Conjunctiva pink, sclera white. NOSE: Clear with pink turbinates. THROAT: No erythema or exudates. NECK: No masses, no JVD, no thyroid enlargement, no adenopathy. CHEST: No chest wall deformity. Symmetrical expansion. LUNGS: Equal air entry with diffuse rhonchi CVS: Regular rate and rhythm, normal S1 and S2, no gallops, no murmurs, no rubs ABDOMEN: Soft, nontender. No hepatosplenomegaly, normal bowel sounds, no guarding or rigidity. EXTREMITIES: No clubbing, no edema, no cyanosis, 2+ pulses and upper and lower extremities. MUSCULOSKELETAL: Muscle strength and tone normal. SPINE: No scoliosis or deformity SKIN: No rashes CENTRAL NERVOUS SYSTEM: Alert and oriented -3. No focal deficits, tone is normal in all 4 extremities. PSYCHIATRIC: Alert and oriented -3. Appropriate affect. Intact judgment and insight. - Labs CBC & Chem 7: 07/05/21 06:24 07/06/21 06:59 Labs: Abnormal Lab Results - Last 24 Hours (Table) 07/06/21 07/06/21 Range/Units 18:02 21:21 POC Glucose (mg/dL) 400 H 408 H (75-99) mg/dL Microbiology - Last 24 Hours (Table) 07/03/21 11:00 Gram Stain - Final Pleural Fluid Body Fluid Culture - Final Assessment and Plan Plan: Assessment: #1. Acute on chronic hypoxic respiratory failure secondary to acute exacerbation of systolic congestive heart failure, bilateral pleural effusions, mild exacerbation of COPD with tracheobronchitis and hemoptysis. Computed tomography scan of the chest reviewed. He did undergo a right-sided thoracentesis today with 700 L of bloody fluid removed. Cytology and fluid analysis pending. Meanwhile, the fluid itself seems to be an exudate based on the routine criteria. LDH level is low. Fluid cytology still pending for now. Meanwhile, the repeat chest x-ray postthoracentesis showed residual bilateral pleural effusion more so in the right. There is some atelectatic changes in lung bases bilaterally. The patient remains on IV cefepime. The patient remains on IV Lasix. Renal function stable. The patient is at baseline at 5 L per minute nasal cannula. This is his baseline oxygen requirements. #2. Recent fall, about 7 weeks ago, with comminuted intra-articular left distal radius fracture with marked deformity To be followed up in the outpatient setting #3. Paroxysmal atrial fibrillation, anticoagulated with Eliquis #4. Sick sinus syndrome status post permanent pacemaker implantation #5. Former smoker with oxygen dependent COPD and normally on 4 L nasal cannula #6. Diabetes mellitus #7. Hyperlipidemia #8. Hypertension #9. Chronic kidney disease stage III #10. Prior history of alcoholism #11. History of previous left-sided pneumothorax requiring ThoraVent Plan: No worsening dyspnea, vital signs have been stable, patient is on his home dose O2 at 5 L satting 99% Increase activity as tolerated Generally patient is quite weak Patient will likely need subacute rehab placement which discharge planning is working on right now No acute events overnight Continue encouraging incentive spirometer, flutter valve, patient can come to outpatient course of prednisone taper, and finish antibiotic therapy for pseudomonal tracheobronchitis Outpatient follow-up with Dr. Perry in the office in one week Stable for discharge to [facility] once the arrangements are completed I have personally seen and examined the patient, performed the documentation and the assessment and plan as written. Number of minutes spent on the visit: [10] Time with Patient: Less than 30 <Tracey Reyes - Last Filed: 07/07/21 15:40> Objective - Vital Signs Vital signs: Vital Signs Temp 97.5 F L 07/07/21 11:34 Pulse 60 07/07/21 11:34 Resp 20 07/07/21 11:34 BP 140/75 07/07/21 11:34 Pulse Ox 98 07/07/21 11:34 Intake & Output 07/06/21 07/07/21 07/07/21 18:59 06:59 18:59 Intake Total 100 640 Output Total 1100 725 Balance -1000 640 -725 Weight 97.5 kg Intake: Intake, IV Titration 100 100 Amount Cefepime 2 gm In Sodium 100 100 Chloride 0.9% 100 ml @ 25 mls/hr IVPB Q12H [facility] Rx# :[id number] Oral 540 Output: Urine 1100 725 Other: Voiding Method Urinal Urinal # Voids 1 - Labs CBC & Chem 7: 07/05/21 06:24 07/07/21 06:08 Labs: Abnormal Lab Results - Last 24 Hours (Table) 07/06/21 07/06/21 07/07/21 Range/Units 18:02 21:21 06:08 BUN 90.9 H (9.0-27.0) mg/dL Creatinine 3.0 H (0.6-1.5) mg/dL Est GFR (CKD-EPI)AfAm 24.3 L (60.0-200.0) Est GFR (CKD-EPI)NonAf 21.0 L (60.0-200.0) BUN/Creatinine Ratio 30.30 H (12.00-20.00) Ratio Glucose 158 H (70-110) mg/dL POC Glucose (mg/dL) 400 H 408 H (75-99) mg/dL Microbiology - Last 24 Hours (Table) 07/03/21 11:00 Anaerobic Culture - Final Pleural Fluid 07/03/21 11:00 Gram Stain - Final Pleural Fluid Body Fluid Culture - Final Assessment and Plan Plan: I have personally seen and examined the patient and reviewed the documentation. I performed a joint evaluation with the nurse practitioner in this evaluation was done more than 10 minutes. I fully agree with the documentation above and the plan of care.
[2021-07-07 11:40] LABS: Magnesium 1.8 mg/dL (1.5-2.4)
[2021-07-07 11:44] LABS: African American GFR (CKD) 24.3 (60.0-200.0); Anion Gap 12.6 mmol/L (10.00-18.00); BUN/Creat Ratio 30.3 Ratio (12.00-20.00); Blood Urea Nitrogen 90.9 mg/dL (9.0-27.0); Calcium 8.7 mg/dL (8.7-10.3); Carbon Dioxide 23.4 mmol/L (20.0-27.5); Potassium 4.5 mmol/L (3.5-5.5)
[2021-07-07 12:23] VITALS: BP 140/75; PULSE 60; TEMP 97.5
--- NOTE | 2021-07-07 14:16 | P.DS ---
Providers Date of admission: 06/24/21 17:55 Expected date of discharge: 07/07/21 Attending physician: Stefany Ricci MD Consults: 06/25/21 13:04 Consult Physician Routine Consulting Provider: Jhonny Ugalde Consult Reason/Comments: ROHINI Do you want consulting provider notified?: Yes 06/28/21 09:59 Consult Physician Routine Consulting Provider: Adam Guillen Consult Reason/Comments: left wrist fracture/patient known to him Do you want consulting provider notified?: Yes 06/30/21 08:30 Consult Physician Urgent Consulting Provider: Krishan Goel Consult Reason/Comments: copd, hemoptysis Do you want consulting provider notified?: Yes Primary care physician: [facility] Hospital Course: Final diagnosis Acute on chronic kidney disease possibly secondary to diuretic use Acute on chronic hypoxic respiratory failure secondary to acute on chronic systolic congestive heart failure, acute exacerbation, on 5L NC Bilateral pleural effusions right greater than left s/p right sided thoracentesis with 700 cc fluid removed Pseudomonas aeruginosa growing in the sputum culture Hyperkalemia most likely related to acute renal injury, improved COPD, acute exacerbation hypomagnesemia, resolved Hemoptysis, on eliquis Hypertension Hyperlipidemia hypothyroidism atrial fibrillation, paroxysmal currently rate controlled sick sinus syndrome with pacemaker placement Recent left wrist fracture status post fall 7 weeks ago showing a comminuted intra-articular left distal radius fracture with marked deformity Diabetes mellitus type 2 with hyperglycemia GI prophylaxis DVT prophylaxis Full code Discharge disposition Patient is being discharged in a stable condition with guarded prognosis to [facility]. Patient will follow-up with ROXIE Stapleton upon discharge from [facility]. Patient will need to follow-up with pulmonary and also orthopedics in the outpatient setting once discharged from [facility] and continue current seizure medications. Total time taken is greater than 35 minutes. Hospital course This is a 65-year-old male who was admitted with increasing shortness of breath found to have acute kidney injury and CHF exacerbation on top of components of COPD acute exacerbation. Patient was seen and followed closely by nephrology along with pulmonary recommending close outpatient follow-up. Kidney functions continued to be elevated stable at 3.0 creatinine and recommend to continue with Demadex 40 mg daily. patient also had pleural effusions and underwent thoracentesis with approximately 700 mL removed and cultures have been negative. Sputum cultures did grow pseudomonas aeruginosa and patient was maintained on IV antibiotics and also cefepime for a week and will not require antibiotics on discharge. Strongly encourage the patient to follow-up with pulmonary in the outpatient setting in 1-2 weeks along with orthopedics for his left wrist fracture in the next 2-3 weeks. Patient is to continue with the splint. Patient is a diabetic and has had uncontrolled blood sugars and recommend to continue with current medication regimen and Accu-Cheks before meals and at bedtime. Patient has been resumed on anticoagulant and recommend continuing. Patient needs aggressive physical therapy as he would like to return home once stronger. Patient continues to be weak at this time and has been evaluated by physical therapy recommending subacute rehab. Patient is agreeable and [facility]. Currently no reports of chest pain, worsening shortness of breath, or palpitations. Patient is afebrile. No reports of na usea or vomiting and patient is tolerating diet. Guarded prognosis. PHYSICAL EXAMINATION: GENERAL: The patient is alert and oriented x 3, ill-appearing, appears older than stated age HEENT: Pupils are round and equally reacting to light. EOMI. no scleral icterus. No conjunctival pallor. Normocephalic, atraumatic. No pharyngeal erythema. No thyromegaly. CARDIOVASCULAR: S1 and S2 muffled PULMONARY: diminished breath sounds bilaterally with some mild scattered rhonchi noted. ABDOMEN: soft. non-tender on exam. non-distended, normoactive bowel sounds. No palpable organomegaly. MUSCULOSKELETAL: No joint swelling or deformity. EXTREMITIES: No cyanosis, clubbing, or pedal edema. Left wrist in a splint with positive pulses and denies any tingling or numbness on exam NEUROLOGICAL: no focal deficits noted. diffuse weakness SKIN: No rashes. no lesions noted Please refer to medication reconciliation sheet for a list of medications. Patient Condition at Discharge: Fair Plan - Discharge Summary New Discharge Prescriptions: New diphenhydrAMINE [Benadryl] 25 mg PO TID PRN cap PRN Reason: Itching predniSONE 10 mg PO DIRECTED #30 tab Pantoprazole [Protonix] 40 mg PO AC-BRKFST tab Darbepoetin Hubert [Aranesp] 60 mcg SQ Q7D each Artificial Tears-Hypromellose [Artificial Tear Drops] 2 drops BOTH EYES TID PRN ml PRN Reason: Dry Eye(S) Ipratropium-Albuterol Nebulize [Duoneb 0.5 mg-3 mg/3 ml Soln] 3 ml INHALATION RT-QID ml HYDROcodone/APAP 10-325MG [[place] 10-325] 1 each PO Q6HR PRN #6 tab PRN Reason: Moderate Pain Continue Tamsulosin [Flomax] 0.4 mg PO DAILY@1400 ondansetron HCL [Zofran] 4 mg PO Q8H PRN PRN Reason: Nausea And Vomiting Apixaban [Eliquis] 2.5 mg PO BID Ipratropium/Albuter 20-100Mcg [Combivent Respimat 20-100Mcg Inhaler] 1 puff INHALATION RT-QID Ipratropium-Albuterol Nebulize [Duoneb 0.5 mg-3 mg/3 ml Soln] 3 ml INHALATION RT-Q4H PRN PRN Reason: Shortness Of Breath Dicyclomine [Bentyl] 20 mg PO Q8H PRN PRN Reason: IBS INSULIN ASPART (NovoLOG) [NovoLOG (formulary)] See Protocol SQ ACHS Torsemide [Demadex] 40 mg PO DAILY@0700 Fluticasone/Vilanterol [Breo Ellipta 200-25 Mcg Inhaler] 1 puff INHALATION RT-DAILY@0600 Insulin Glargine,Hum.rec.anlog [Lantus Solostar Pen] 25 unit SQ HS@2000 Levothyroxine Sodium [Synthroid] 25 mcg PO DAILY@0700 allopurinoL [Zyloprim] 200 mg PO DAILY@1400 Lidocaine 5% Patch [Lidoderm 5% Patch] 1 patch TOPICAL DAILY@1600 PRN PRN Reason: Pain Midodrine HCl [ProAmatine] 10 mg PO TID Budesonide [Pulmicort] 0.5 mg INHALATION RT-BID Metoprolol Succinate (ER) [Toprol XL] 50 mg PO HS@2000 Ferrous Sulfate [Iron (65 MG Elemental)] 325 mg PO DAILY@0800 Cholecalciferol [Vitamin D3 (25 Mcg = 1000 Iu)] 25 mcg PO DAILY@0800 Ascorbic Acid [Vitamin C] 1,000 mg PO BID@0800,1400 Loperamide HCl [Loperamide] 2 mg PO Q6H PRN PRN Reason: Diarrhea Discontinued HYDROcodone/APAP 5-325MG [[place] 5-325] 1 tab PO Q8H PRN PRN Reason: Pain Zinc Sulfate [Orazinc] 220 mg PO BID@0800,1400 HYDROcodone/APAP 5-325MG [[place] 5-325] 1 tab PO Q8H PRN PRN Reason: Breakthrough Pain Omeprazole 20 mg PO HS@1999 Discharge Medication List Tamsulosin [Flomax] 0.4 mg PO DAILY@1400 06/23/16 [History] ondansetron HCL [Zofran] 4 mg PO Q8H PRN 09/30/18 [History] Apixaban [Eliquis] 2.5 mg PO BID 01/11/19 [History] Insulin Glargine,Hum.rec.anlog [Lantus Solostar Pen] 25 unit SQ HS@199908/02/20 [History] Levothyroxine Sodium [Synthroid] 25 mcg PO DAILY@0700 08/02/20 [History] Ipratropium/Albuter 20-100Mcg [Combivent Respimat 20-100Mcg Inhaler] 1 puff INHALATION RT-QID 05/17/21 [History] Lidocaine 5% Patch [Lidoderm 5% Patch] 1 patch TOPICAL DAILY@1600 PRN 05/17/21 [History] Midodrine HCl [ProAmatine] 10 mg PO TID 05/17/21 [History] allopurinoL [Zyloprim] 200 mg PO DAILY@1400 05/17/21 [History] Ascorbic Acid [Vitamin C] 1,000 mg PO BID@0800,1400 06/24/21 [History] Budesonide [Pulmicort] 0.5 mg INHALATION RT-BID 06/24/21 [History] Cholecalciferol [Vitamin D3 (25 Mcg = 1000 Iu)] 25 mcg PO DAILY@0806/24/21 [History] Dicyclomine [Bentyl] 20 mg PO Q8H PRN 06/24/21 [History] Ferrous Sulfate [Iron (65 MG Elemental)] 325 mg PO DAILY@0800 06/24/21 [History] Fluticasone/Vilanterol [Breo Ellipta 200-25 Mcg Inhaler] 1 puff INHALATION RT- DAILY@0600 06/24/21 [History] INSULIN ASPART (NovoLOG) [NovoLOG (formulary)] See Protocol SQ ACHS 06/24/21 [History] Ipratropium-Albuterol Nebulize [Duoneb 0.5 mg-3 mg/3 ml Soln] 3 ml INHALATION RT-Q4H PRN 06/24/21 [History] Loperamide HCl [Loperamide] 2 mg PO Q6H PRN 06/24/21 [History] Metoprolol Succinate (ER) [Toprol XL] 50 mg PO HS@199906/24/21 [History] Torsemide [Demadex] 40 mg PO DAILY@0700 06/24/21 [History] Artificial Tears-Hypromellose [Artificial Tear Drops] 2 drops BOTH EYES TID PRN ml 07/07/21 [Rx] Darbepoetin Hubert [Aranesp] 60 mcg SQ Q7D each 07/07/21 [Rx] HYDROcodone/APAP 10-325MG [Be[place] 10-325] 1 each PO Q6HR PRN #6 tab 07/07/21 [Rx] Ipratropium-Albuterol Nebulize [Duoneb 0.5 mg-3 mg/3 ml Soln] 3 ml INHALATION RT-QID ml 07/07/21 [Rx] Pantoprazole [Protonix] 40 mg PO AC-BRKFST tab 07/07/21 [Rx] diphenhydrAMINE [Benadryl] 25 mg PO TID PRN cap 07/07/21 [Rx] predniSONE 10 mg PO DIRECTED #30 tab 07/07/21 [Rx] Follow up Appointment(s)/Referral(s): Krishan Goel MD [STAFF PHYSICIAN] - 2 Weeks Neeta Mckeon DO [Doctor of Osteopathic Medicine] - 1 Week Freddy Hines PAC [REFERRING] - 1-2 days Ambulatory/Diagnostic Orders: Complete Blood Count w/diff [LAB.AMB] Time Frame: 3 Days, Location: None Selected Activity/Diet/Wound Care/Special Instructions: Patient is going to [facility] Activity as tolerated Follow-up with primary care provider on discharge Continue current consistent carb diet Continue monitoring Accu-Cheks before meals and at bedtime with patient's personal portable device NovoLog sliding scale 0-150 equals 0 units 151-200 equals 2 units 201-250 equals 4 units 251-300 equals 6 units 301-350 equals 8 units 351-400 equals 10 units Please notify provider if blood sugar is 400 or above Follow-up labs of CBC, BMP, magnesium in 2-3 days Follow-up with pulmonary outpatient Follow-up with nephrology outpatient Continue breathing inhalational treatments and inhalers Discharge Disposition: TRANSFER TO SNF/ECF
== END 2021-07-07 15:54 | disposition hospice, home (50) | DRG 291 ==
LOC: EC 14:53 → 4SSUR 17:55 → 5NMEDONC 19:38
PROVIDERS: ADMIT Internal Medicine; ATTEND Internal Medicine
PROC: 0W993ZX Drainage of Right Pleural Cavity, Percutaneous Approach, Diagnostic (ICD-10-PCS; principal; 2021-07-03)
DX: I13.0 Hypertensive heart and chronic kidney disease with heart failure and stage 1 through stage 4 chronic kidney disease, or unspecified chronic kidney disease (principal); J96.21 Acute and chronic respiratory failure with hypoxia; I50.23 Acute on chronic systolic (congestive) heart failure; N17.9 Acute kidney failure, unspecified; J44.1 Chronic obstructive pulmonary disease with (acute) exacerbation; J90 Pleural effusion, not elsewhere classified; J44.0 Chronic obstructive pulmonary disease with (acute) lower respiratory infection; E87.1 Hypo-osmolality and hyponatremia; I42.8 Other cardiomyopathies; N18.32 Chronic kidney disease, stage 3b; E11.22 Type 2 diabetes mellitus with diabetic chronic kidney disease; D63.1 Anemia in chronic kidney disease; E03.9 Hypothyroidism, unspecified; E78.5 Hyperlipidemia, unspecified; E83.42 Hypomagnesemia; I49.5 Sick sinus syndrome; S62.102A Fracture of unspecified carpal bone, left wrist, initial encounter for closed fracture; I48.0 Paroxysmal atrial fibrillation; I45.10 Unspecified right bundle-branch block; I44.0 Atrioventricular block, first degree; I25.10 Atherosclerotic heart disease of native coronary artery without angina pectoris; E86.9 Volume depletion, unspecified; E87.5 Hyperkalemia; F10.21 Alcohol dependence, in remission; T50.2X5A Adverse effect of carbonic-anhydrase inhibitors, benzothiadiazides and other diuretics, initial encounter; F32.A Depression, unspecified; W19.XXXA Unspecified fall, initial encounter; F41.0 Panic disorder [episodic paroxysmal anxiety]; B96.5 Pseudomonas (aeruginosa) (mallei) (pseudomallei) as the cause of diseases classified elsewhere; Z20.822 Contact with and (suspected) exposure to COVID-19; Z79.01 Long term (current) use of anticoagulants; Z79.4 Long term (current) use of insulin; Z79.51 Long term (current) use of inhaled steroids; Z79.890 Hormone replacement therapy; Z79.899 Other long term (current) drug therapy; Z86.16 Personal history of COVID-19; Z87.891 Personal history of nicotine dependence; Z95.0 Presence of cardiac pacemaker; Z99.81 Dependence on supplemental oxygen; Z90.49 Acquired absence of other specified parts of digestive tract; Z98.890 Other specified postprocedural states; Z88.5 Allergy status to narcotic agent
CPT/HCPCS: 36415; 71045; 71250; 76604; 80048; 80053; 81001; 82945; 83036; 83540; 83550; 83615; 83735; 83880; 84145; 84157; 84484; 85025; 85027; 86140; 87070; 87075; 87077; 87186; 87205; 87636; 88108; 88305; 89050; 93005; 94640; 94667; 94760; 96365; 96366; 99285

== ENCOUNTER 2021-07-26 16:02 | Inpatient (IN) | payer OTHER, MEDICARE ==
[2021-07-26] MEDS ORDERED: FUROSEMIDE 10 MG/ML 4 ML VIAL IV STA (16:19)
[2021-07-26 16:31] LABS: Anisocytosis Slight; Basophils % (A) 0 %; Eosinophils # (A) 0.3 k/uL (0-0.7); Eosinophils % (A) 3 %; HCT 24.1 % (39.0-53.0); HGB 7.4 gm/dL (13.0-17.5); Hypochromasia Marked; Lymphocytes # (A) 0.5 k/uL (1.0-4.8); Lymphocytes % (A) 5 %; MCH 29.8 pg (25.0-35.0); MCHC 30.5 g/dL (31.0-37.0); MCV 97.5 fL (80.0-100.0); Macrocytosis Slight; Mean Platelet Volume 8.8; Monocytes # (A) 0.3 k/uL (0-1.0); Monocytes % (A) 3 %; Neutrophils # (A) 8.7 k/uL (1.3-7.7); Neutrophils % (A) 89 %; Platelet Count 220 k/uL (150-450); RBC 2.47 m/uL (4.30-5.90); RDW 17.1 % (11.5-15.5); WBC 9.8 k/uL (3.8-10.6)
[2021-07-26 16:40] LABS: Albumin 3.2 g/dL (3.5-5.0); Calcium 8.1 mg/dL (8.4-10.2); INR 1.1 (<1.2); Prothrombin Time 11.7 sec (9.0-12.0); Total Bilirubin 0.6 mg/dL (0.2-1.3); Total Protein 6.2 g/dL (6.3-8.2)
--- NOTE | 2021-07-26 16:42 | XR ---
EXAMINATION TYPE: XR chest 1V portable DATE OF EXAM: 07/26/2021 4:37 PM COMPARISON:Chest radiographs from 07/03/2021 TECHNIQUE: XR chest 1V portable Frontal view of the chest. CLINICAL INDICATION:Male, 65 years old with history of dyspnea; FINDINGS: Lungs/Pleura: Blunting of the right costophrenic angle. Bibasilar atelectasis present. No evidence of pneumothorax Pulmonary vascularity: Unremarkable. Heart/mediastinum: Cardiomediastinal silhouette is enlarged and stable. No evidence of pneumothorax Two lead cardiac conduction device overlying the left hemithorax with lead tips projecting over the r ight ventricle and right atrium. Musculoskeletal: Multiple level degenerative disc disease changes seen throughout the spine. IMPRESSION: Small right pleural effusion with associated atelectasis not significantly changed from prior.
--- NOTE | 2021-07-26 16:45 | XR ---
EXAMINATION TYPE: XR wrist complete LT DATE OF EXAM: 07/26/2021 4:37 PM INDICATION: Patient age:Male; 65 years old; Reason for study: pain; COMPARISON: None TECHNIQUE: 3 views of the left wrist. FINDINGS: Redemonstration of distal left radius and ulnar styloid process fractures with volar angula tion and shortening. Alignment is not significantly changed from 06/28/2021. Mild calcifications prese nt hazy probable early callus formation is present around the radius fracture. There is soft tissue s welling. IMPRESSION: Similar alignment of distal left radius and ulnar styloid process fracture with shortening. There is mild suspected early callus formation present.
[2021-07-26 16:48] LABS: Potassium 6.2 mmol/L (3.5-5.1)
[2021-07-26 16:49] LABS: Magnesium 0.9 mg/dL (1.6-2.3)
[2021-07-26] MEDS ORDERED: SODIUM POLYSTYRENE SULFONATE 15 GM/60 ML BOTTLE PO STA (19:06)
[2021-07-26] MEDS ORDERED: CALCIUM CHLORIDE 100 MG/ML 10 ML SYRINGE IVP STA (19:06)
--- NOTE | 2021-07-26 19:10 | ED ---
SOB HPI - General Chief Complaint: Shortness of Breath Stated Complaint: fluid retention Time Seen by Provider: 07/26/21 16:11 Source: patient, EMS Mode of arrival: EMS Limitations: no limitations - History of Present Illness Initial Comments: Patient complains of shortness of breath. He also has swelling in the legs. He also has an injury to the left upper extremity that occurred more than one month ago. Nothing makes his shortness of breath better or worse today. He has taken no new medications or has had change in medication. He states that the swelling in his legs has gotten significantly worse, especially over the last couple days. He is not complaining of any chest pain or pressure. He has no headache, lightheadedness or dizziness. He wasn't doing anything when the symptoms began. He denies any sick contacts in the last few days. - Related Data Home Medications Medication Instructions Recorded Confirmed Tamsulosin [Flomax] 0.4 mg PO DAILY@1400 06/23/16 06/24/21 ondansetron HCL [Zofran] 4 mg PO Q8H PRN 09/30/18 06/24/21 Apixaban [Eliquis] 2.5 mg PO BID 01/11/19 06/24/21 Insulin Glargine,Hum.rec.anlog 25 unit SQ HS@199908/02/20 06/24/21 [Lantus Solostar Pen] Levothyroxine Sodium [Synthroid] 25 mcg PO DAILY@0700 08/02/20 06/24/21 Ipratropium/Albuter 20-100Mcg 1 puff INHALATION RT-QID 05/17/21 06/24/21 [Combivent Respimat 20-100Mcg Inhaler] Lidocaine 5% Patch [Lidoderm 5% 1 patch TOPICAL DAILY@1600 PRN 05/17/21 06/24/21 Patch] Midodrine HCl [ProAmatine] 10 mg PO TID 05/17/21 06/24/21 allopurinoL [Zyloprim] 200 mg PO DAILY@1400 05/17/21 06/24/21 Ascorbic Acid [Vitamin C] 1,000 mg PO BID@0800,1400 06/24/21 06/24/21 Budesonide [Pulmicort] 0.5 mg INHALATION RT-BID 06/24/21 06/24/21 Cholecalciferol [Vitamin D3 (25 25 mcg PO DAILY@0800 06/24/21 06/24/21 Mcg = 1000 Iu)] Dicyclomine [Bentyl] 20 mg PO Q8H PRN 06/24/21 06/24/21 Ferrous Sulfate [Iron (65 MG 325 mg PO DAILY@0800 06/24/21 06/24/21 Elemental)] Fluticasone/Vilanterol [Breo 1 puff INHALATION RT-DAILY@0606/24/21 06/24/21 Ellipta 200-25 Mcg Inhaler] INSULIN ASPART (NovoLOG) [NovoLOG See Protocol SQ ACHS 06/24/21 06/24/21 (formulary)] Ipratropium-Albuterol Nebulize 3 ml INHALATION RT-Q4H PRN 06/24/21 06/24/21 [Duoneb 0.5 mg-3 mg/3 ml Soln] Loperamide HCl [Loperamide] 2 mg PO Q6H PRN 06/24/21 06/24/21 Metoprolol Succinate (ER) [Toprol 50 mg PO HS@199906/24/21 06/24/21 XL] Torsemide [Demadex] 40 mg PO DAILY@0706/24/21 06/24/21 Previous Rx's Medication Instructions Recorded Artificial Tears-Hypromellose 2 drops BOTH EYES TID PRN ml 07/07/21 [Artificial Tear Drops] Darbepoetin Hubert [Aranesp] 60 mcg SQ Q7D each 07/07/21 HYDROcodone/APAP 10-325MG [[place] 1 each PO Q6HR PRN #6 tab 07/07/21 10-325] Ipratropium-Albuterol Nebulize 3 ml INHALATION RT-QID ml 07/07/21 [Duoneb 0.5 mg-3 mg/3 ml Soln] Pantoprazole [Protonix] 40 mg PO AC-BRKFST tab 07/07/21 diphenhydrAMINE [Benadryl] 25 mg PO TID PRN cap 07/07/21 predniSONE 10 mg PO DIRECTED #30 tab 07/07/21 Allergies Allergy/AdvReac Type Severity Reaction Status Date / Time codeine Allergy Unknown Verified 06/24/21 18:27 Review of Systems ROS Statement: Those systems with pertinent positive or pertinent negative responses have been documented in the HPI. ROS Other: All systems not noted in ROS Statement are negative. Past Medical History Past Medical History: Atrial Fibrillation, Heart Failure, COPD, Diabetes Mellitus, Deep Vein Thrombosis (DVT), GERD/Reflux, Hyperlipidemia, Hypertension, Pneumonia, Renal Disease, Respiratory Disorder, Skin Disorder, Sleep Apnea/CPAP /BIPAP, Vascular Disorder Additional Past Medical History / Comment(s): Pt recently admitted to [facility] on 08/02/20 with chf/acute on chronic renal disease, possible pneumonia. Pt tested covic+ on 08/20/20 at [facility] ER. Other hx: Chronic hypoxic respiratory failure and the patient OXYGEN dependent 5 L, previous history of left-sided pneumothorax requiring a Thoravent insertion, IDDM type II, paroxysmal AFIB, SSS with pacer, nonischemic cardiomyopathy, past alcoholism/DTs, diverticulosis, obstuctive sleep apnea but no Cpap since wt loss, sinusitis, neuropathy bilateral feet, elevated LFTs, BPH, CKD stag III, DVT R leg, hypomagnesemia, hypoalbuminemia, anemia, protein calorie malnutrition, PVD, current sores bilateral feet, left wrist fracture History of Any Multi-Drug Resistant Organisms: None Reported Past Surgical History: Appendectomy, Cholecystectomy, Heart Catheterization, Pacemaker Additional Past Surgical History / Comment(s): Partial liver removed d/t adhesions, colonoscopies, bilateral eyes blepharoplasties, pacer Past Anesthesia/Blood Transfusion Reactions: Postoperative Nausea & Vomiting (PONV) Additional Past Anesthesia/Blood Transfusion Reaction / Comment(s): Pt states he has had PONV with gas only. Type of Cardiac Device: Permanent Pacemaker Device Placement Date:: 2017 Past Psychological History: Anxiety, Depression, Panic Disorder Smoking Status: Former smoker Past Alcohol Use History: None Reported Past Drug Use History: None Reported - Past Family History Mother Family Medical History: Thyroid Disorder Additional Family Medical History / Comment(s): . Father Additional Family Medical History / Comment(s): Father of diverticulitis,peritonitis at the age of 35yrs. General Exam Limitations: no limitations General appearance: alert, in no apparent distress Head exam: Present: atraumatic, normocephalic, normal inspection Eye exam: Present: normal appearance, PERRL, EOMI. Absent: scleral icterus, conjunctival injection, periorbital swelling ENT exam: Present: normal exam, mucous membranes moist Neck exam: Present: normal inspection. Absent: tenderness, meningismus, lympha denopathy Respiratory exam: Present: rales. Absent: respiratory distress, wheezes, rhonchi, stridor Cardiovascular Exam: Present: regular rate, normal rhythm, normal heart sounds. Absent: systolic murmur, diastolic murmur, rubs, gallop, clicks GI/Abdominal exam: Present: soft, normal bowel sounds. Absent: distended, tend erness, guarding, rebound, rigid Extremities exam: Present: normal inspection, full ROM, normal capillary refill, pedal edema. Absent: tenderness Back exam: Present: normal inspection Neurological exam: Present: alert, oriented X3, CN II-XII intact Psychiatric exam: Present: normal affect, normal mood Skin exam: Present: warm, dry, intact, normal color. Absent: rash Course Vital Signs 07/26/21 07/26/21 07/26/21 16:08 16:15 18:50 Pulse Rate 65 60 Respiratory 22 18 16 Rate Blood Pressure 134/80 119/59 O2 Sat by Pulse 99 100 Oximetry Medical Decision Making - Medical Decision Making Patient presents with swelling in the legs. He has on laboratory evaluation elevated BUN/creatinine. I ordered IV calcium because his potassium is high. I ordered him Kayexalate by mouth. We will need a nephrology consult. Patient will be admitted to the hospital. - Lab Data Result diagrams: 07/26/21 16:18 07/26/21 16:18 Lab Results 07/26/21 07/26/21 07/26/21 Range/Units 16:18 16:18 16:18 WBC 9.8 (3.8-10.6) k/uL RBC 2.47 L (4.30-5.90) m/uL Hgb 7.4 L (13.0-17.5) gm/dL Hct 24.1 L (39.0-53.0) % MCV 97.5 (80.0-100.0) fL MCH 29.8 (25.0-35.0) pg MCHC 30.5 L (31.0-37.0) g/dL RDW 17.1 H (11.5-15.5) % Plt Count 220 (150-450) k/uL MPV 8.8 Neutrophils % 89 % Lymphocytes % 5 % Monocytes % 3 % Eosinophils % 3 % Basophils % 0 % Neutrophils # 8.7 H (1.3-7.7) k/uL Lymphocytes # 0.5 L (1.0-4.8) k/uL Monocytes # 0.3 (0-1.0) k/uL Eosinophils # 0.3 (0-0.7) k/uL Basophils # 0.0 (0-0.2) k/uL Hypochromasia Marked Anisocytosis Slight Macrocytosis Slight PT 11.7 (9.0-12.0) sec INR 1.1 (<1.2) APTT 24.0 (22.0-30.0) sec Sodium 137 (137-145) mmol/L Potassium 6.2 H* (3.5-5.1) mmol/L Chloride 101 (98-107) mmol/L Carbon Dioxide 18 L (22-30) mmol/L Anion Gap 18 mmol/L BUN 189 H* (9-20) mg/dL Creatinine 9.83 H* (0.66-1.25) mg/dL Est GFR (CKD-EPI)AfAm 6 (>60 ml/min/1.73 sqM) Est GFR (CKD-EPI)NonAf 5 (>60 ml/min/1.73 sqM) Glucose 97 (74-99) mg/dL Calcium 8.1 L (8.4-10.2) mg/dL Magnesium 0.9 L* (1.6-2.3) mg/dL Total Bilirubin 0.6 (0.2-1.3) mg/dL AST 15 L (17-59) U/L ALT 9 (4-49) U/L Alkaline Phosphatase 62 (38-126) U/L Troponin I (0.000-0.034) ng/mL NT-Pro-B Natriuret Pep pg/mL Total Protein 6.2 L (6.3-8.2) g/dL Albumin 3.2 L (3.5-5.0) g/dL 07/26/21 07/26/21 Range/Units 16:18 16:18 WBC (3.8-10.6) k/uL RBC (4.30-5.90) m/uL Hgb (13.0-17.5) gm/dL Hct (39.0-53.0) % MCV (80.0-100.0) fL MCH (25.0-35.0) pg MCHC (31.0-37.0) g/dL RDW (11.5-15.5) % Plt Count (150-450) k/uL MPV Neutrophils % % Lymphocytes % % Monocytes % % Eosinophils % % Basophils % % Neutrophils # (1.3-7.7) k/uL Lymphocytes # (1.0-4.8) k/uL Monocytes # (0-1.0) k/uL Eosinophils # (0-0.7) k/uL Basophils # (0-0.2) k/uL Hypochromasia Anisocytosis Macrocytosis PT (9.0-12.0) sec INR (<1.2) APTT (22.0-30.0) sec Sodium (137-145) mmol/L Potassium (3.5-5.1) mmol/L Chloride (98-107) mmol/L Carbon Dioxide (22-30) mmol/L Anion Gap mmol/L BUN (9-20) mg/dL Creatinine (0.66-1.25) mg/dL Est GFR (CKD-EPI)AfAm (>60 ml/min/1.73 sqM) Est GFR (CKD-EPI)NonAf (>60 ml/min/1.73 sqM) Glucose (74-99) mg/dL Calcium (8.4-10.2) mg/dL Magnesium (1.6-2.3) mg/dL Total Bilirubin (0.2-1.3) mg/dL AST (17-59) U/L ALT (4-49) U/L Alkaline Phosphatase (38-126) U/L Troponin I 0.013 (0.000-0.034) ng/mL NT-Pro-B Natriuret Pep 32527 pg/mL Total Protein (6.3-8.2) g/dL Albumin (3.5-5.0) g/dL 07/26/21 19:09 Twelve-lead EKG shows ventricular rate 65 bpm, the QRS complexes are wide, there is no ST elevation or depression, interpreted by me as atrial fibrillation. Disposition Clinical Impression: Kidney failure Disposition: ADMITTED IP TO THIS HOSP Condition: Fair Is patient prescribed a controlled substance at d/c from ED?: No Referrals: [facility],Clinic [Primary Care Provider] - 1-2 days
[2021-07-26] MEDS ORDERED: ONDANSETRON 4 MG TAB PO PRN (21:47)
[2021-07-26] MEDS ORDERED: DICYCLOMINE 20 MG TAB PO PRN (21:47)
[2021-07-26] MEDS ORDERED: LOPERAMIDE 2 MG CAP PO PRN (21:47)
[2021-07-26] MEDS ORDERED: IPRATROPIUM-ALBUTEROL 3 ML NEB INHALATION PRN (21:47)
[2021-07-26] MEDS ORDERED: ARTIFICIAL TEARS-HYPROMELLOSE DROPS 15 ML BTL BOTH EYES PRN (21:47)
[2021-07-26] MEDS: HYDROcodone/APAP 5-325MG 1 EACH TAB PO PRN (23:41)
[2021-07-26] MEDS: MIDODRINE 5 MG TAB PO SCH (23:47)
[2021-07-27] MEDS ORDERED: MORPHINE SULFATE 2 MG/ML SYRINGE IVP STA (01:49)
[2021-07-27] MEDS: HYDROcodone/APAP 5-325MG 1 EACH TAB PO PRN (05:58)
[2021-07-27] MEDS: BUDESONIDE 0.5 MG/2 ML NEBU INHALATION SCH ×2 (06:02→20:24)
[2021-07-27] MEDS: IPRATROPIUM-ALBUTEROL 3 ML NEB INHALATION SCH ×4 (06:02→20:24)
[2021-07-27] MEDS: LEVOTHYROXINE 25 MCG TAB PO SCH (07:31)
[2021-07-27 07:34] LABS: Glucose,Whole Blood 123 mg/dL (75-99)
[2021-07-27] MEDS: INSULIN ASPART (NovoLOG) 100 UNIT/ML VIAL SQ SCH ×4 (07:35→22:05)
[2021-07-27] MEDS: PANTOPRAZOLE 40 MG TABLET PO SCH (07:43)
[2021-07-27] MEDS ORDERED: NON FORMULARY DRUG (Ipratropium/Albuter 20-100mcg 120 PUFF Each) INHALATION SCH (08:00)
[2021-07-27] MEDS ORDERED: SODIUM ZIRCONIUM CYCLOSILICATE 10 GM PACKET PO ONE (08:15)
[2021-07-27] MEDS: SYMBICORT 160-4.5 MCG INHALER INHALATION SCH ×2 (08:53→20:25)
[2021-07-27] MEDS ORDERED: TORSEMIDE 20 MG TAB PO SCH (09:00)
[2021-07-27] MEDS ORDERED: DEXTROSE 50% SYRINGE 50 ML IVP STA (10:22)
[2021-07-27] MEDS ORDERED: INSULIN REGULAR 100 UNIT/ML VIAL (IV) IV ONE (10:23)
[2021-07-27 11:11] LABS: African American GFR (CKD) 6 (>60 ml/min/1.73 sqM); Anion Gap 13 mmol/L; Calcium 7.9 mg/dL (8.4-10.2); Carbon Dioxide 20 mmol/L (22-30); Chloride 103 mmol/L (98-107); Glucose 114 mg/dL (74-99); Non-African American GFR(CKD) 5 (>60 ml/min/1.73 sqM); Potassium 5.9 mmol/L (3.5-5.1); Sodium 136 mmol/L (137-145)
[2021-07-27] MEDS: ASCORBIC ACID 500 MG TAB PO SCH ×2 (11:14→22:06)
[2021-07-27] MEDS: CHOLECALCIFEROL 25 MCG (1000 IU) TABLET PO SCH (11:14)
[2021-07-27] MEDS: APIXABAN 2.5 MG TABLET PO SCH ×2 (11:14→22:07)
[2021-07-27] MEDS: FERROUS SULFATE 325 MG TAB PO SCH (11:14)
[2021-07-27] MEDS: MAGNESIUM SULFATE-D5W PMX 1 GM in DEXTROSE/WATER 1 100ML.BAG IVPB SCH ×2 (11:15→13:19)
[2021-07-27 11:30] LABS: Blood Urea Nitrogen 182 mg/dL (9-20)
--- NOTE | 2021-07-27 11:40 | P.HPIM ---
History of Present Illness Patient is a 65-year-old male with multiple medical problems multiple comorbidities was recently discharged from the hospital after he was treated for volume or note from chronic gastritis function and the cardiorenal syndrome. Patient was discharged to rehab facility 2 days into rehab related patient patient went home and started having shortness of breath volume overload diffuse anasarca and pedal edema. Patient is found to be in significant volume or lower chest x-ray showed bilateral pleural effusion although this appears to have improved compared to last admission when he had thoracentesis. Patient has significant lab abnormalities including creatinine going up to around 10 potassium 6.2 very low magnesium of 0.9 nephrology was consulted. As per nephrology patient will lead hemodialysis, consult to vascular surgery was placed for hemodialysis catheter placement and patient will be subsequently started on hemodialysis. Patient does have advanced COPD uses about 5 L of oxygen. REVIEW OF SYSTEMS: CONSTITUTIONAL: No fever. HEENT: No recent visual problems or hearing problems. Denied any sore throat. CARDIOVASCULAR: No chest pain, orthopnea, PND, no palpitations, no syncope. PULMONARY: no hemoptysis. GASTROINTESTINAL: No diarrhea, no nausea, no vomiting, no abdominal pain. NEUROLOGICAL: No headaches, no weakness, no numbness. HEMATOLOGICAL: Denies any bleeding or petechiae. GENITOURINARY: Denies any burning micturition, frequency, or urgency. MUSCULOSKELETAL/RHEUMATOLOGICAL: Denies any joint pain, swelling, or any muscle pain. ENDOCRINE: Denies any polyuria or polydipsia. The rest of the 14-point review of systems is negative. PHYSICAL EXAMINATION: GENERAL: The patient is alert and oriented x3, not in any acute distress. Well developed, well nourished. HEENT: Pupils are round and equally reacting to light. EOMI. No scleral icterus. No conjunctival pallor. Normocephalic, atraumatic. No pharyngeal erythema. No thyromegaly. CARDIOVASCULAR: S1 and S2 present. No murmurs, rubs, or gallops. PULMONARY: Bibasilar crackles ABDOMEN: Soft, nontender, nondistended, normoactive bowel sounds. No palpable organomegaly. MUSCULOSKELETAL: No joint swelling or deformity. EXTREMITIES: No cyanosis, clubbing, and a thickened anasarca and extensive pedal edema NEUROLOGICAL: Gross neurological examination did not reveal any focal deficits. Significant muscle weakness muscle atrophy generalized weakness. SKIN: No rashes. Assessment and plan -Shortness of breath secondary to congestive heart failure chronic diastolic dysfunction with acute exacerbation secondary to cardiorenal syndrome patient will be started on hemodialysis -Severe anasarca secondary to cardiorenal syndrome as mentioned above. Hemodialysis today possibly -Hyperkalemia secondary to acute renal failure patient received to potassium binders present the potassium is 5.9 -Hypomagnesemia magnesium will be replaced -Chronic respiratory failure secondary to COPD uses 5 L of oxygen at home -Hypertension -Hyperlipidemia -Hypothyroidism -Proximal atrial fibrillation presently rate controlled patient does have sick sinus syndrome history patient has a pacemaker -Type 2 diabetes mellitus DVT prophylaxis: he is on 2.5 mg of Eliquis Past Medical History Past Medical History: Atrial Fibrillation, Heart Failure, COPD, Diabetes Mellitus, Deep Vein Thrombosis (DVT), GERD/Reflux, Hyperlipidemia, Hypertension, Pneumonia, Renal Disease, Respiratory Disorder, Skin Disorder, Sleep Apnea/CPAP/BIPAP, Vascular Disorder Additional Past Medical History / Comment(s): Pt recently admitted to [facility] on 08/02/20 with chf/acute on chronic renal disease, possible pneumonia. Pt tested covic+ on 08/20/20 at [facility] ER. Other hx: Chronic hypoxic respiratory failure and the patient OXYGEN dependent 5 L, previous history of left-sided pneumothorax requiring a Thoravent insertion, IDDM type II, paroxysmal AFIB, SSS with pacer, nonischemic cardiomyopathy, past alcoholism/DTs, diverticulosis, obstuctive sleep apnea but no Cpap since wt loss, sinusitis, neuropathy bilateral feet, elevated LFTs, BPH, CKD stag III, DVT R leg, hypomagnesemia, hypoalbuminemia, anemia, protein calorie malnutrition, PVD, current sores bilateral feet, left wrist fracture History of Any Multi-Drug Resistant Organisms: None Reported Past Surgical History: Appendectomy, Cholecystectomy, Heart Catheterization, Pacemaker Additional Past Surgical History / Comment(s): Partial liver removed d/t adhesions, colonoscopies, bilateral eyes blepharoplasties, pacer Past Anesthesia/Blood Transfusion Reactions: Postoperative Nausea & Vomiting (PONV) Additional Past Anesthesia/Blood Transfusion Reaction / Comment(s): Pt states he has had PONV with gas only. Type of Cardiac Device: Permanent Pacemaker Device Placement Date:: 2017 Past Psychological History: Anxiety, Depression, Panic Disorder Smoking Status: Former smoker Past Alcohol Use History: None Reported Past Drug Use History: None Reported - Past Family History Mother Family Medical History: Thyroid Disorder Additional Family Medical History / Comment(s): . Father Additional Family Medical History / Comment(s): Father of divertic ulitis,peritonitis at the age of 35yrs. Medications and Allergies Home Medications Medication Instructions Recorded Confirmed Type Tamsulosin [Flomax] 0.4 mg PO HS 06/23/16 07/27/21 History ondansetron HCL [Zofran] 4 mg PO Q8H PRN 09/30/18 07/26/21 History Apixaban [Eliquis] 2.5 mg PO BID 01/11/19 07/26/21 History Insulin Glargine,Hum.rec.anlog 25 unit SQ HS@199908/02/20 07/26/21 History [Lantus Solostar Pen] Levothyroxine Sodium [Synthroid] 25 mcg PO DAILY@0700 08/02/20 07/26/21 History Ipratropium/Albuter 20-100Mcg 1 puff INHALATION RT-QID 05/17/21 07/26/21 History [Combivent Respimat 20-100Mcg Inhaler] Lidocaine 5% Patch [Lidoderm 5% 1 patch TOPICAL DAILY@1600 PRN 05/17/21 07/26/21 History Patch] Midodrine HCl [ProAmatine] 10 mg PO TID 05/17/21 07/26/21 History allopurinoL [Zyloprim] 200 mg PO DAILY@1400 05/17/21 07/26/21 History Ascorbic Acid [Vitamin C] 1,000 mg PO BID@0800,1400 06/24/21 07/26/21 History Budesonide [Pulmicort] 0.5 mg INHALATION RT-BID 06/24/21 07/26/21 History Cholecalciferol [Vitamin D3 (25 25 mcg PO DAILY@0800 06/24/21 07/26/21 History Mcg = 1000 Iu)] Dicyclomine [Bentyl] 20 mg PO Q8H PRN 06/24/21 07/26/21 History Ferrous Sulfate [Iron (65 MG 325 mg PO DAILY@0800 06/24/21 07/26/21 History Elemental)] Fluticasone/Vilanterol [Breo 1 puff INHALATION RT-DAILY@0600 06/24/21 07/26/21 History Ellipta 200-25 Mcg Inhaler] INSULIN ASPART (NovoLOG) [NovoLOG See Protocol SQ ACHS 06/24/21 07/26/21 History (formulary)] Ipratropium-Albuterol Nebulize 3 ml INHALATION RT-Q4H PRN 06/24/21 07/26/21 History [Duoneb 0.5 mg-3 mg/3 ml Soln] Loperamide HCl [Loperamide] 2 mg PO Q6H PRN 06/24/21 07/26/21 History Metoprolol Succinate (ER) [Toprol 50 mg PO HS@199906/24/21 07/26/21 History XL] Torsemide [Demadex] 40 mg PO DAILY@0706/24/21 07/26/21 History Artificial Tears-Hypromellose 2 drops BOTH EYES TID PRN ml 07/07/21 07/26/21 Rx [Artificial Tear Drops] Darbepoetin Hubert [Aranesp] 60 mcg SQ Q7D each 07/07/21 07/26/21 Rx Ipratropium-Albuterol Nebulize 3 ml INHALATION RT-QID ml 07/07/21 07/26/21 Rx [Duoneb 0.5 mg-3 mg/3 ml Soln] Pantoprazole [Protonix] 40 mg PO AC-BRKFST tab 07/07/21 07/26/21 Rx diphenhydrAMINE [Benadryl] 25 mg PO TID PRN cap 07/07/21 07/26/21 Rx Allergies Allergy/AdvReac Type Severity Reaction Status Date / Time codeine Allergy Unknown Verified 07/26/21 20:10 Physical Exam Vitals: Vital Signs Temp Pulse Resp BP Pulse Ox 07/27/21 07:36 98.1 F 68 16 121/68 94 L 07/27/21 06:20 63 07/27/21 06:02 68 07/27/21 06:00 67 20 135/56 96 07/27/21 03:48 66 20 115/45 97 07/27/21 02:10 62 22 131/64 99 07/26/21 23:46 67 16 124/71 94 L 07/26/21 18:50 60 16 119/59 100 07/26/21 16:15 18 07/26/21 16:08 65 22 134/80 99 Intake and Output 07/26/21 07/27/21 07/27/21 22:59 06:59 14:59 Output Total 725 Balance -725 Output: Urine 725 Other: Weight 96.615 kg Results CBC & Chem 7: 07/26/21 16:18 07/27/21 10:42 Labs: Abnormal Lab Results - Last 24 Hours (Table) 07/26/21 07/26/21 07/27/21 Range/Units 16:18 16:18 07:32 RBC 2.47 L (4.30-5.90) m/uL Hgb 7.4 L (13.0-17.5) gm/dL Hct 24.1 L (39.0-53.0) % MCHC 30.5 L (31.0-37.0) g/dL RDW 17.1 H (11.5-15.5) % Neutrophils # 8.7 H (1.3-7.7) k/uL Lymphocytes # 0.5 L (1.0-4.8) k/uL Sodium (137-145) mmol/L Potassium 6.2 H* (3.5-5.1) mmol/L Carbon Dioxide 18 L (22-30) mmol/L BUN 189 H* (9-20) mg/dL Creatinine 9.83 H* (0.66-1.25) mg/dL Glucose (74-99) mg/dL POC Glucose (mg/dL) 123 H (75-99) mg/dL Calcium 8.1 L (8.4-10.2) mg/dL Magnesium 0.9 L* (1.6-2.3) mg/dL AST 15 L (17-59) U/L Total Protein 6.2 L (6.3-8.2) g/dL Albumin 3.2 L (3.5-5.0) g/dL 07/27/21 Range/Units 10:42 RBC (4.30-5.90) m/uL Hgb (13.0-17.5) gm/dL Hct (39.0-53.0) % MCHC (31.0-37.0) g/dL RDW (11.5-15.5) % Neutrophils # (1.3-7.7) k/uL Lymphocytes # (1.0-4.8) k/uL Sodium 136 L (137-145) mmol/L Potassium 5.9 H (3.5-5.1) mmol/L Carbon Dioxide 20 L (22-30) mmol/L BUN 182 H* (9-20) mg/dL Creatinine 10.22 H* (0.66-1.25) mg/dL Glucose 114 H (74-99) mg/dL POC Glucose (mg/dL) (75-99) mg/dL Calcium 7.9 L (8.4-10.2) mg/dL Magnesium (1.6-2.3) mg/dL AST (17-59) U/L Total Protein (6.3-8.2) g/dL Albumin (3.5-5.0) g/dL
--- NOTE | 2021-07-27 11:47 | P.NPCON ---
History of Present Illness - Reason for Consult acute renal failure - History of Present Illness Patient is a 65-year-old male with history of chronic kidney disease stage IV with previous creatinine 3-3.1 mg/dL on 07/07/2021. Etiology for CK D is nephrosclerosis. Lowest creatinine 1.4 on 05/24/2021. However patient has had multiple episodes of acute kidney injury during his recent hospitalizations Patient was recently hospitalized for pneumonia and CHF exacerbation. Underlying history of COPD type 2 diabetes A. fib CHF history of DVT, recent pneumonia and chronic hypoxic respiratory failure. Patient is admitted to the hospital with complaints of increased weakness some shortness of breath. He is noted to have a serum creatinine of 9.8 with the B UN of 189 and potassium 6.2. Bladder scan showed less than 200 mL of urine Blood pressure has not been low No NSAIDs noted on his med list Patient is not confused. Review of Systems As per HPI, other systems negative Past Medical History Past Medical History: Atrial Fibrillation, Heart Failure, COPD, Diabetes Mellitus, Deep Vein Thrombosis (DVT), GERD/Reflux, Hyperlipidemia, Hypertension, Pneumonia, Renal Disease, Respiratory Disorder, Skin Disorder, Sleep Apnea/CPAP/BIPAP, Vascular Disorder Additional Past Medical History / Comment(s): Pt recently admitted to [facility] on 08/02/20 with chf/acute on chronic renal disease, possible pneumonia. Pt tested covic+ on 08/20/20 at [facility] ER. Other hx: Chronic hypoxic respiratory failure and the patient OXYGEN dependent 5 L, previous history of left-sided pneumothorax requiring a Thoravent insertion, IDDM type II, paroxysmal AFIB, SSS with pacer, nonischemic cardiomyopathy, past alcoholism/DTs, diverticulosis, obstuctive sleep apnea but no Cpap since wt loss, sinusitis, neuropathy bilateral feet, elevated LFTs, BPH, CKD stag III, DVT R leg, hypomagnesemia, hypoalbuminemia, anemia, protein calorie malnutrition, PVD, current sores bilateral feet, left wrist fracture History of Any Multi-Drug Resistant Organisms: None Reported Past Surgical History: Appendectomy, Cholecystectomy, Heart Catheterization, Pacemaker Additional Past Surgical History / Comment(s): Partial liver removed d/t adhesions, colonoscopies, bilateral eyes blepharoplasties, pacer Past Anesthesia/Blood Transfusion Reactions: Postoperative Nausea & Vomiting (PONV) Additional Past Anesthesia/Blood Transfusion Reaction / Comment(s): Pt states he has had PONV with gas only. Type of Cardiac Device: Permanent Pacemaker Device Placement Date:: 2017 Past Psychological History: Anxiety, Depression, Panic Disorder Smoking Status: Former smoker Past Alcohol Use History: None Reported Past Drug Use History: None Reported - Past Family History Mother Family Medical History: Thyroid Disorder Additional Family Medical History / Comment(s): . Father Additional Family Medical History / Comment(s): Father of diverticulitis,peritonitis at the age of 35yrs. Medications and Allergies Home Medications Medication Instructions Recorded Confirmed Type Tamsulosin [Flomax] 0.4 mg PO HS 06/23/16 07/27/21 History ondansetron HCL [Zofran] 4 mg PO Q8H PRN 09/30/18 07/26/21 History Apixaban [Eliquis] 2.5 mg PO BID 01/11/19 07/26/21 History Insulin Glargine,Hum.rec.anlog 25 unit SQ HS@199908/02/20 07/26/21 History [Lantus Solostar Pen] Levothyroxine Sodium [Synthroid] 25 mcg PO DAILY@0700 08/02/20 07/26/21 History Ipratropium/Albuter 20-100Mcg 1 puff INHALATION RT-QID 05/17/21 07/26/21 History [Combivent Respimat 20-100Mcg Inhaler] Lidocaine 5% Patch [Lidoderm 5% 1 patch TOPICAL DAILY@1600 PRN 05/17/21 07/26/21 History Patch] Midodrine HCl [ProAmatine] 10 mg PO TID 05/17/21 07/26/21 History allopurinoL [Zyloprim] 200 mg PO DAILY@1400 05/17/21 07/26/21 History Ascorbic Acid [Vitamin C] 1,000 mg PO BID@0800,1400 06/24/21 07/26/21 History Budesonide [Pulmicort] 0.5 mg INHALATION RT-BID 06/24/21 07/26/21 History Cholecalciferol [Vitamin D3 (25 25 mcg PO DAILY@0800 06/24/21 07/26/21 History Mcg = 1000 Iu)] Dicyclomine [Bentyl] 20 mg PO Q8H PRN 06/24/21 07/26/21 History Ferrous Sulfate [Iron (65 MG 325 mg PO DAILY@0800 06/24/21 07/26/21 History Elemental)] Fluticasone/Vilanterol [Breo 1 puff INHALATION RT-DAILY@0600 06/24/21 07/26/21 History Ellipta 200-25 Mcg Inhaler] INSULIN ASPART (NovoLOG) [NovoLOG See Protocol SQ ACHS 06/24/21 07/26/21 History (formulary)] Ipratropium-Albuterol Nebulize 3 ml INHALATION RT-Q4H PRN 06/24/21 07/26/21 History [Duoneb 0.5 mg-3 mg/3 ml Soln] Loperamide HCl [Loperamide] 2 mg PO Q6H PRN 06/24/21 07/26/21 History Metoprolol Succinate (ER) [Toprol 50 mg PO HS@199906/24/21 07/26/21 History XL] Torsemide [Demadex] 40 mg PO DAILY@0700 06/24/21 07/26/21 History Artificial Tears-Hypromellose 2 drops BOTH EYES TID PRN ml 07/07/21 07/26/21 Rx [Artificial Tear Drops] Darbepoetin Hubert [Aranesp] 60 mcg SQ Q7D each 07/07/21 07/26/21 Rx Ipratropium-Albuterol Nebulize 3 ml INHALATION RT-QID ml 07/07/21 07/26/21 Rx [Duoneb 0.5 mg-3 mg/3 ml Soln] Pantoprazole [Protonix] 40 mg PO AC-BRKFST tab 07/07/21 07/26/21 Rx diphenhydrAMINE [Benadryl] 25 mg PO TID PRN cap 07/07/21 07/26/21 Rx Allergies Allergy/AdvReac Type Severity Reaction Status Date / Time codeine Allergy Unknown Verified 07/26/21 20:10 Physical Exam Vitals: Vital Signs Temp Pulse Resp BP Pulse Ox 07/27/21 07:36 98.1 F 68 16 121/68 94 L 07/27/21 06:20 63 07/27/21 06:02 68 07/27/21 06:00 67 20 135/56 96 07/27/21 03:48 66 20 115/45 97 07/27/21 02:10 62 22 131/64 99 07/26/21 23:46 67 16 124/71 94 L 07/26/21 18:50 60 16 119/59 100 07/26/21 16:15 18 07/26/21 16:08 65 22 134/80 99 Intake and Output 07/26/21 07/27/21 07/27/21 22:59 06:59 14:59 Output Total 725 Balance -725 Output: Urine 725 Other: Weight 96.615 kg Patient is awake comfortable Not in any acute distress Alert and oriented Examination of the heart S1 and S2 Examination lungs bilateral breath sounds are heard decreased breath sounds at the bases. 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 Results - Lab Results Most recent lab results Calcium 7.9 mg/dL (8.4-10.2) L 07/27/21 10:42 Magnesium 0.9 mg/dL (1.6-2.3) L* 07/26/21 16:18 07/26/21 16:18 07/27/21 10:42 Assessment and Plan Assessment: 1. Acute kidney injury most likely ATN, currently nonoliguric. However given the significantly elevated BUN/creatinine creatinine and volume overload with hyperkalemia I will proceed with hemodialysis today. We will repeat another treatment tomorrow. Check ultrasound of the kidneys. Check urine analysis 2. Chronic kidney disease NKF stage IIIB secondary to nephrosclerosis with previous creatinine as low as 1.4 in May 2021 but most recently staying as high as 3.1-3.0 on 07/07/2021 with episodes of acute kidney injury during his hospitalizations for CHF and pneumonia. 3. CHF exacerbation, diastolic 4. Volume overload 5. Hyperkalemia associated with acute kidney injury, no urine retention noted 6. Hypomagnesemia currently being replaced etiology diuretics 7. Paroxysmal A. fib with controlled ventricular response status post pacemaker Plan: Consult vascular surgery for hemodialysis today and then repeat again in a.m. Check ultrasound of the kidneys Repeat labs in a.m. Add diuretics Check urine analysis
[2021-07-27] MEDS ORDERED: HEPARIN SODIUM 1,000 UN/ML (10ML VL) MISCELLANE ONE (12:25)
[2021-07-27] MEDS: MIDODRINE 5 MG TAB PO SCH ×2 (13:26→17:54)
[2021-07-27] MEDS: allopurinoL 100 MG TAB PO SCH (13:26)
[2021-07-27] MEDS: TAMSULOSIN 0.4 MG CAP.ER.24H PO SCH (13:26)
[2021-07-27] MEDS ORDERED: LIDOCAINE 1% INJ 10MG/ML (20 ML MDV) SQ ONE (13:58)
--- NOTE | 2021-07-27 14:06 | US ---
EXAMINATION TYPE: US kidneys/renal and bladder DATE OF EXAM: 07/27/2021 COMPARISON: NONE CLINICAL HISTORY: obstruction. Patient is going to have dialysis today EXAM MEASUREMENTS: Right Kidney: 11.4 x 5.4 x 5.8 cm Left Kidney: 11.2 x 4.9 x 5.7 cm Right Kidney: No hydronephrosis or masses seen. Fluid seen adjacent to kidney. Left Kidney: No hydronephrosis or masses seen. Fluid seen adjacent to kidney. Bladder: anechoic Left Jet seen IMPRESSION: There is a tiny amount of fluid surrounding both kidneys which is cystic. No hydronephrosis or nephro lithiasis.
--- NOTE | 2021-07-27 15:00 | P.GSCN ---
History of Present Illness History of present illness: 65-year-old gentleman patient was seen in the emergency room for placement of urgent dialysis catheter. Patient creatinine is 9.3, Chase is 189, potassium 6.2, her graft past history patient has history of COPD, congestive heart failure, type 2 diabetes, A. fib, acute chronic kidney disease, Neck examination neck is supple no bruit appreciated Chest pulses second sound present patient has a bilateral crackles lung bases Abdomen soft nontender Femorals 2+ bilateral Plan is placement of dialysis catheter risk and complication discussed Past Medical History Past Medical History: Atrial Fibrillation, Heart Failure, COPD, Diabetes Mellitus, Deep Vein Thrombosis (DVT), GERD/Reflux, Hyperlipidemia, Hypertension, Pneumonia, Renal Disease, Respiratory Disorder, Skin Disorder, Sleep Apnea/CPAP/BIPAP, Vascular Disorder Additional Past Medical History / Comment(s): Pt recently admitted to [facility] on 06/24/21 with acute/chronic kidney disease, acute on chronic hypoxic respiratory distress, acute CHF, bilateral pleural effusion/R side worse and had thoracentesis, sputum with pseudomonos aeraginosis, hemotysis. Other hx: Chronic hypoxic respiratory failure and the patient OXYGEN dependent 5 L, previous history of left-sided pneumothorax requiring a Thoravent insertion, 2015 covid, IDDM type II, neuropathy bilateral feet, paroxysmal AFIB, SSS with pacer, nonischemic cardiomyopathy, past alcoholism/DTs, diverticulosis, obstuctive sleep apnea but no Cpap since wt loss, sinusitis, elevated LFTs, BPH, CKD stag III, DVT R leg, gout, hypothyroid, hypomagnesemia, hypoalbuminemia, anemia, protein calorie malnutrition, PVD, current sores bottom of L foot, left wrist fracture History of Any Multi-Drug Resistant Organisms: None Reported Past Surgical History: Appendectomy, Cholecystectomy, Heart Catheterization, Pacemaker Additional Past Surgical History / Comment(s): Partial liver removed d/t adhesions, colonoscopies, bilateral eyes blepharoplasties, pacer Past Anesthesia/Blood Transfusion Reactions: Postoperative Nausea & Vomiting (PONV) Additional Past Anesthesia/Blood Transfusion Reaction / Comm: Pt states he has had PONV with gas only. Type of Cardiac Device: Permanent Pacemaker Device Placement Date:: 2017 Smoking Status: Former smoker - Past Family History Mother Family Medical History: Thyroid Disorder Additional Family Medical History / Comment(s): . Father Additional Family Medical History / Comment(s): Father of diverticulitis,peritonitis at the age of 35yrs. Medications and Allergies Home Medications Medication Instructions Recorded Confirmed Type Tamsulosin [Flomax] 0.4 mg PO HS 06/23/16 07/27/21 History ondansetron HCL [Zofran] 4 mg PO Q8H PRN 09/30/18 07/26/21 History Apixaban [Eliquis] 2.5 mg PO BID 01/11/19 07/26/21 History Insulin Glargine,Hum.rec.anlog 25 unit SQ HS@199908/02/20 07/26/21 History [Lantus Solostar Pen] Levothyroxine Sodium [Synthroid] 25 mcg PO DAILY@0700 08/02/20 07/26/21 History Ipratropium/Albuter 20-100Mcg 1 puff INHALATION RT-QID 05/17/21 07/26/21 History [Combivent Respimat 20-100Mcg Inhaler] Lidocaine 5% Patch [Lidoderm 5% 1 patch TOPICAL DAILY@1600 PRN 05/17/21 07/26/21 History Patch] Midodrine HCl [ProAmatine] 10 mg PO TID 05/17/21 07/26/21 History allopurinoL [Zyloprim] 200 mg PO DAILY@1400 05/17/21 07/26/21 History Ascorbic Acid [Vitamin C] 1,000 mg PO BID@0800,1400 06/24/21 07/26/21 History Budesonide [Pulmicort] 0.5 mg INHALATION RT-BID 06/24/21 07/26/21 History Cholecalciferol [Vitamin D3 (25 25 mcg PO DAILY@0800 06/24/21 07/26/21 History Mcg = 1000 Iu)] Dicyclomine [Bentyl] 20 mg PO Q8H PRN 06/24/21 07/26/21 History Ferrous Sulfate [Iron (65 MG 325 mg PO DAILY@0800 06/24/21 07/26/21 History Elemental)] Fluticasone/Vilanterol [Breo 1 puff INHALATION RT-DAILY@0600 06/24/21 07/26/21 History Ellipta 200-25 Mcg Inhaler] INSULIN ASPART (NovoLOG) [NovoLOG See Protocol SQ ACHS 06/24/21 07/26/21 History (formulary)] Ipratropium-Albuterol Nebulize 3 ml INHALATION RT-Q4H PRN 06/24/21 07/26/21 Hi story [Duoneb 0.5 mg-3 mg/3 ml Soln] Loperamide HCl [Loperamide] 2 mg PO Q6H PRN 06/24/21 07/26/21 History Metoprolol Succinate (ER) [Toprol 50 mg PO HS@199906/24/21 07/26/21 History XL] Torsemide [Demadex] 40 mg PO DAILY@0700 06/24/21 07/26/21 History Artificial Tears-Hypromellose 2 drops BOTH EYES TID PRN ml 07/07/21 07/26/21 Rx [Artificial Tear Drops] Darbepoetin Hubert [Aranesp] 60 mcg SQ Q7D each 07/07/21 07/26/21 Rx Ipratropium-Albuterol Nebulize 3 ml INHALATION RT-QID ml 07/07/21 07/26/21 Rx [Duoneb 0.5 mg-3 mg/3 ml Soln] Pantoprazole [Protonix] 40 mg PO AC-BRKFST tab 07/07/21 07/26/21 Rx diphenhydrAMINE [Benadryl] 25 mg PO TID PRN cap 07/07/21 07/26/21 Rx Allergies Allergy/AdvReac Type Severity Reaction Status Date / Time codeine Allergy Unknown Verified 07/26/21 20:10 Surgical - Exam Vital Signs Pulse Resp BP Pulse Ox 65 22 134/80 99 07/26/21 16:08 07/26/21 16:08 07/26/21 16:08 07/26/21 16:08 Results - Labs 07/26/21 16:18 07/27/21 10:42 Abnormal Lab Results - Last 24 Hours (Table) 07/26/21 07/26/21 07/27/21 Range/Units 16:18 16:18 07:32 RBC 2.47 L (4.30-5.90) m/uL Hgb 7.4 L (13.0-17.5) gm/dL Hct 24.1 L (39.0-53.0) % MCHC 30.5 L (31.0-37.0) g/dL RDW 17.1 H (11.5-15.5) % Neutrophils # 8.7 H (1.3-7.7) k/uL Lymphocytes # 0.5 L (1.0-4.8) k/uL Sodium (137-145) mmol/L Potassium 6.2 H* (3.5-5.1) mmol/L Carbon Dioxide 18 L (22-30) mmol/L BUN 189 H* (9-20) mg/dL Creatinine 9.83 H* (0.66-1.25) mg/dL Glucose (74-99) mg/dL POC Glucose (mg/dL) 123 H (75-99) mg/dL Calcium 8.1 L (8.4-10.2) mg/dL Magnesium 0.9 L* (1.6-2.3) mg/dL AST 15 L (17-59) U/L Total Protein 6.2 L (6.3-8.2) g/dL Albumin 3.2 L (3.5-5.0) g/dL 07/27/21 Range/Units 10:42 RBC (4.30-5.90) m/uL Hgb (13.0-17.5) gm/dL Hct (39.0-53.0) % MCHC (31.0-37.0) g/dL RDW (11.5-15.5) % Neutrophils # (1.3-7.7) k/uL Lymphocytes # (1.0-4.8) k/uL Sodium 136 L (137-145) mmol/L Potassium 5.9 H (3.5-5.1) mmol/L Carbon Dioxide 20 L (22-30) mmol/L BUN 182 H* (9-20) mg/dL Creatinine 10.22 H* (0.66-1.25) mg/dL Glucose 114 H (74-99) mg/dL POC Glucose (mg/dL) (75-99) mg/dL Calcium 7.9 L (8.4-10.2) mg/dL Magnesium (1.6-2.3) mg/dL AST (17-59) U/L Total Protein (6.3-8.2) g/dL Albumin (3.5-5.0) g/dL Diabetes panel 07/26/21 07/27/21 Range/Units 16:18 10:42 Sodium 137 136 L (137-145) mmol/L Potassium 6.2 H* 5.9 H (3.5-5.1) mmol/L Chloride 101 103 (98-107) mmol/L Carbon Dioxide 18 L 20 L (22-30) mmol/L BUN 189 H* 182 H* (9-20) mg/dL Creatinine 9.83 H* 10.22 H* (0.66-1.25) mg/dL Glucose 97 114 H (74-99) mg/dL Calcium 8.1 L 7.9 L (8.4-10.2) mg/dL AST 15 L (17-59) U/L ALT 9 (4-49) U/L Alkaline Phosphatase 62 (38-126) U/L Total Protein 6.2 L (6.3-8.2) g/dL Albumin 3.2 L (3.5-5.0) g/dL Calcium panel 07/26/21 07/27/21 Range/Units 16:18 10:42 Calcium 8.1 L 7.9 L (8.4-10.2) mg/dL Albumin 3.2 L (3.5-5.0) g/dL Pituitary panel 07/26/21 07/27/21 Range/Units 16:18 10:42 Sodium 137 136 L (137-145) mmol/L Potassium 6.2 H* 5.9 H (3.5-5.1) mmol/L Chloride 101 103 (98-107) mmol/L Carbon Dioxide 18 L 20 L (22-30) mmol/L BUN 189 H* 182 H* (9-20) mg/dL Creatinine 9.83 H* 10.22 H* (0.66-1.25) mg/dL Glucose 97 114 H (74-99) mg/dL Calcium 8.1 L 7.9 L (8.4-10.2) mg/dL Adrenal panel 07/26/21 07/27/21 Range/Units 16:18 10:42 Sodium 137 136 L (137-145) mmol/L Potassium 6.2 H* 5.9 H (3.5-5.1) mmol/L Chloride 101 103 (98-107) mmol/L Carbon Dioxide 18 L 20 L (22-30) mmol/L BUN 189 H* 182 H* (9-20) mg/dL Creatinine 9.83 H* 10.22 H* (0.66-1.25) mg/dL Glucose 97 114 H (74-99) mg/dL Calcium 8.1 L 7.9 L (8.4-10.2) mg/dL Total Bilirubin 0.6 (0.2-1.3) mg/dL AST 15 L (17-59) U/L ALT 9 (4-49) U/L Alkaline Phosphatase 62 (38-126) U/L Total Protein 6.2 L (6.3-8.2) g/dL Albumin 3.2 L (3.5-5.0) g/dL
--- NOTE | 2021-07-27 15:05 | P.PCN ---
Description of Procedure: Preoperative diagnoses is acute chronic renal failure creatinine 9.3B N1 89 potassium 6.2 Postoperative same Procedure patient was seen in the emergency room right groin were prepped and draped for major strap manner 1% lidocaine were infiltrated in the right groin area ultrasound-guided micropuncture introduced right femoral vein micropuncture guidewire was passed after that we passed a regular guidewire without any resistance dilators were advanced. The guidewire then on the top of guidewire be placed dialysis catheter guidewire removed flushed with heparin saline and Hep-Lock secured with 3-0 nylon along patient was applied patient are to the procedure well Right groin was prepped and draped for pressure manner patient had a dialysis catheter placed in the right groin which was removed pressure was held patient are to the procedure well we will do the x-ray of the chest for dialysis catheter placement
[2021-07-27 17:25] LABS: Hepatitis B Surface AB- Quant 3.5 mIU/mL; Hepatitis B Surface Antibody Nonreactive (Nonreactive)
[2021-07-27 17:40] LABS: Hepatitis B Surface Antigen Nonreactive (Nonreactive)
[2021-07-27 17:54] LABS: Glucose,Whole Blood 110 mg/dL (75-99)
[2021-07-27 21:01] LABS: Glucose,Whole Blood 116 mg/dL (75-99)
[2021-07-27] MEDS: METOPROLOL SUCCINATE (ER) 50 MG TAB.ER.24H PO SCH (22:06)
[2021-07-27] MEDS: INSULIN DETEMIR (LEVEMIR) 100 UNIT/ML SYR SQ SCH (22:06)
[2021-07-27] MEDS: FUROSEMIDE 10 MG/ML 10 ML VIAL IV SCH (22:07)
[2021-07-28] MEDS: HYDROcodone/APAP 5-325MG 1 EACH TAB PO PRN ×3 (00:16→21:00)
[2021-07-28] MEDS ORDERED: ONDANSETRON 4 MG/2 ML VIAL ONE (00:47)
[2021-07-28 01:11] LABS: Appearance,Urine Cloudy (Clear); Bacteria,Urine Rare /hpf; Bilirubin,Urine Negative (Negative); Blood,Urine Moderate (Negative); Budding Yeast,Urine Occasional /hpf; Color,Urine Yellow; Glucose,Urine (UA) Negative (Negative); Hyaline Casts,Urine 1 /lpf (0-2); Ketones,Urine Negative (Negative); Leukocyte Esterase,Urine Trace (Negative); Nitrite,Urine Negative (Negative); Protein,Urine Trace (Negative); RBC,Urine >182 /hpf (0-5); Urobilinogen,Urine <2.0 mg/dL (<2.0); WBC,Urine 11 /hpf (0-5)
[2021-07-28] MEDS: MIDODRINE 5 MG TAB PO SCH ×4 (02:48→23:44)
[2021-07-28 02:51] LABS: Glucose,Whole Blood 147 mg/dL (75-99)
[2021-07-28] MEDS: ONDANSETRON 4 MG/2 ML VIAL IVP PRN (05:38)
[2021-07-28] MEDS: LEVOTHYROXINE 25 MCG TAB PO SCH (05:38)
[2021-07-28 07:11] LABS: Glucose,Whole Blood 146 mg/dL (75-99)
[2021-07-28] MEDS: INSULIN ASPART (NovoLOG) 100 UNIT/ML VIAL SQ SCH ×3 (07:42→17:24)
[2021-07-28] MEDS: SYMBICORT 160-4.5 MCG INHALER INHALATION SCH ×2 (09:39→20:25)
[2021-07-28] MEDS: BUDESONIDE 0.5 MG/2 ML NEBU INHALATION SCH ×2 (09:39→20:25)
[2021-07-28] MEDS: IPRATROPIUM-ALBUTEROL 3 ML NEB INHALATION SCH ×4 (09:39→20:24)
[2021-07-28 09:54] LABS: Anion Gap 17.1 mmol/L (10.00-18.00); Calcium 8.5 mg/dL (8.7-10.3); Carbon Dioxide 21.1 mmol/L (20.0-27.5); Potassium 5.5 mmol/L (3.5-5.5)
[2021-07-28] MEDS: ASCORBIC ACID 500 MG TAB PO SCH ×2 (10:15→21:00)
[2021-07-28] MEDS: PANTOPRAZOLE 40 MG TABLET PO SCH (10:15)
[2021-07-28] MEDS: CHOLECALCIFEROL 25 MCG (1000 IU) TABLET PO SCH (10:15)
[2021-07-28] MEDS: FUROSEMIDE 10 MG/ML 10 ML VIAL IV SCH ×2 (10:16→20:04)
[2021-07-28] MEDS: FERROUS SULFATE 325 MG TAB PO SCH (10:16)
[2021-07-28 11:54] LABS: Glucose,Whole Blood 162 mg/dL (75-99)
[2021-07-28] MEDS: APIXABAN 2.5 MG TABLET PO SCH ×2 (11:59→21:00)
--- NOTE | 2021-07-28 12:13 | P.PN ---
Subjective Patient is seen for follow-up for acute kidney injury and top of chronic kidney disease Patient has underlying CK D stage IV with recent worsening of his renal function. Patient has underlying chronic kidney disease with recent worsening of his renal function since May 2021. He was admitted to the hospital with a creatinine of around 10.2. Patient was dialyzed yesterday and he scheduled for hemodialysis again today. He also has underlying volume overload. Patient tolerated his treatment well. Overall feeling better. No obstruction noted on ultrasound Objective - Vital Signs Vital signs: Vital Signs Temp 98.9 F 07/28/21 08:00 Pulse 90 07/28/21 11:07 Resp 18 07/28/21 11:07 BP 132/66 07/28/21 08:00 Pulse Ox 95 07/28/21 10:57 Intake & Output 07/27/21 07/28/21 07/28/21 18:59 06:59 18:59 Intake Total 720 Output Total 1500 725 Balance -1500 -5 Weight 96.615 kg Intake: Oral 720 Output: Urine 725 Hemodialysis 1500 Other: Voiding Method Urinal # Voids 1 # Bowel Movements 1 - Exam Awake, comfortable, not in any acute distress Examination of the heart Examination of the lungs shows decreased breath sounds at the bases Examination lower extremity shows edema 1+ bilaterally 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 grossly 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 Significant pain and limitation of movement on the left shoulder and left upper extremity - Labs CBC & Chem 7: 07/26/21 16:18 07/28/21 06:51 Labs: Abnormal Lab Results - Last 24 Hours (Table) 07/27/21 07/27/21 07/27/21 Range/Units 10:42 17:51 21:00 Creatinine (0.6-1.5) mg/dL Est GFR (CKD-EPI)AfAm (60.0-200.0) Est GFR (CKD-EPI)NonAf (60.0-200.0) Glucose (70-110) mg/dL POC Glucose (mg/dL) 110 H 116 H (75-99) mg/dL Calcium (8.7-10.3) mg/dL Phosphorus 7.3 H (2.4-5.1) mg/dL Urine Protein (Negative) Urine Blood (Negative) Ur Leukocyte Esterase (Negative) Urine RBC (0-5) /hpf Urine WBC (0-5) /hpf Urine Bacteria (None) /hpf Urine Yeast (Budding) (None) /hpf 07/27/21 07/28/21 07/28/21 Range/Units 23:50 02:49 06:51 Creatinine 7.6 H* (0.6-1.5) mg/dL Est GFR (CKD-EPI)AfAm 7.9 L (60.0-200.0) Est GFR (CKD-EPI)NonAf 6.8 L (60.0-200.0) Glucose 141 H (70-110) mg/dL POC Glucose (mg/dL) 147 H (75-99) mg/dL Calcium 8.5 L (8.7-10.3) mg/dL Phosphorus (2.4-5.1) mg/dL Urine Protein Trace H (Negative) Urine Blood Moderate H (Negative) Ur Leukocyte Esterase Trace H (Negative) Urine RBC >182 H (0-5) /hpf Urine WBC 11 H (0-5) /hpf Urine Bacteria Rare H (None) /hpf Urine Yeast (Budding) Occasional H (None) /hpf 07/28/21 07/28/21 Range/Units 07:10 11:53 Creatinine (0.6-1.5) mg/dL Est GFR (CKD-EPI)AfAm (60.0-200.0) Est GFR (CKD-EPI)NonAf (60.0-200.0) Glucose (70-110) mg/dL POC Glucose (mg/dL) 146 H 162 H (75-99) mg/dL Calcium (8.7-10.3) mg/dL Phosphorus (2.4-5.1) mg/dL Urine Protein (Negative) Urine Blood (Negative) Ur Leukocyte Esterase (Negative) Urine RBC (0-5) /hpf Urine WBC (0-5) /hpf Urine Bacteria (None) /hpf Urine Yeast (Budding) (None) /hpf Assessment and Plan Assessment: 1. Acute kidney injury most likely ATN, currently nonoliguric. However given the significantly elevated BUN/creatinine creatinine and volume overload with hyperkalemia I will proceed with hemodialysis. For daily treatments for the next few days. No obstruction on ultrasound. UA shows trace protein and moderate blood. I will order serologies to rule out any underlying GN 2. Chronic kidney disease NKF stage IIIB secondary to nephrosclerosis with previous creatinine as low as 1.4 in May 2021 but most recently staying as high as 3.1-3.0 on 07/07/2021 with episodes of acute kidney injury during his ho spitalizations for CHF and pneumonia. 3. CHF exacerbation, diastolic 4. Volume overload 5. Hyperkalemia associated with acute kidney injury, no urine retention noted, improved post dialysis 6. Hypomagnesemia currently being replaced etiology diuretics 7. Paroxysmal A. fib with controlled ventricular response status post pacemaker Plan: Repeat hemodialysis today and again in a.m. Check serologies rule out underlying GN Encourage increased oral intake Continue with IV Lasix
--- NOTE | 2021-07-28 14:07 | P.PN ---
Subjective Progress Note Date: 07/28/21 Patient is a 65-year-old male with multiple medical problems multiple comorbidities was recently discharged from the hospital after he was treated for volume or note from chronic gastritis function and the cardiorenal syndrome. Patient was discharged to rehab facility 2 days into rehab related patient patient went home and started having shortness of breath volume overload diffuse anasarca and pedal edema. Patient is found to be in significant volume or lower chest x-ray showed bilateral pleural effusion although this appears to have improved compared to last admission when he had thoracentesis. Patient has significant lab abnormalities including creatinine going up to around 10 potassium 6.2 very low magnesium of 0.9 nephrology was consulted. As per nephrology patient will lead hemodialysis, consult to vascular surgery was placed for hemodialysis catheter placement and patient will be subsequently started on hemodialysis. Patient does have advanced COPD uses about 5 L of oxygen. 07/28/2021 Patient is seen and evaluated and follow-up has received hemodialysis catheter and is receiving hemodialysis today. Kidney functions improving and patient reports to producing more urine. Current creatinine is 7.6 today potassium is 5.5 and sodium is 139. Blood sugars have been more manageable and will continue current regimen. Patient continues on 5 L via nasal cannula which is chronic for him. Nephrology following closely and will continue with dialysis daily at this time. Patient is also maintained on IV Lasix and will continue. Patient denies chest pain, shortness of breath, or palpitations. Patient is afebrile. No nausea or vomiting noted and patient is tolerating diet. Review of systems: Constitutional: No reports of fatigue, fever, or chills Cardiovascular: No reports of chest pain or palpitations Respiratory: No reports of shortness of breath or cough GI: No reports of nausea, vomiting, or diarrhea : No reports of dysuria or retention Neurovascular: No reports of weakness or numbness All medications have been reviewed Active Medications Hydrocodone Bitart/Acetaminophen (Hydrocodone/Apap 5-325mg 1 Each Tab) 2 each PO Q6HR PRN PRN Reason: Pain Last Admin: 07/28/21 05:38 Dose: 2 each Documented by: Albuterol/Ipratropium (Ipratropium-Albuterol 3 Ml Neb) 3 ml INHALATION RT-QID ASHISH Last Admin: 07/28/21 10:57 Dose: 3 ml Documented by: Albuterol/Ipratropium (Ipratropium-Albuterol 3 Ml Neb) 3 ml INHALATION RT-Q4H PRN PRN Reason: Shortness Of Breath Allopurinol (Allopurinol 100 Mg Tab) 200 mg PO DAILY@1400 [facility] Last Admin: 07/27/21 13:26 Dose: 200 mg Documented by: Apixaban (Apixaban 2.5 Mg Tablet) 2.5 mg PO BID [facility]; Protocol Last Admin: 07/28/21 11:59 Dose: 2.5 mg Documented by: Artificial Tears (Artificial Tears-Hypromellose Drops 15 Ml Btl) 2 drops BOTH EYES TID PRN PRN Reason: Dry Eye(s) Ascorbic Acid (Ascorbic Acid 500 Mg Tab) 1,000 mg PO BID [facility] Last Admin: 07/28/21 10:15 Dose: Not Given Documented by: Budesonide (Budesonide 0.5 Mg/2 Ml Nebu) 0.5 mg INHALATION RT-BID [facility] Last Admin: 07/28/21 09:39 Dose: Not Given Documented by: Budesonide/Formoterol Fumarate (Symbicort 160-4.5 Mcg Inhaler) 2 puff INHALATION RT-BID [facility] Last Admin: 07/28/21 09:39 Dose: Not Given Documented by: Cholecalciferol (Cholecalciferol 25 Mcg (1000 Iu) Tablet) 25 mcg PO DAILY [facility] Last Admin: 07/28/21 10:15 Dose: Not Given Documented by: Darbepoetin Hubert (Darbepoetin Hubert 60 Mcg/0.3 Ml Syringe) 60 mcg SQ Q7D [facility] Dicyclomine HCl (Dicyclomine 20 Mg Tab) 20 mg PO Q8H PRN PRN Reason: IBS Ferrous Sulfate (Ferrous Sulfate 325 Mg Tab) 325 mg PO DAILY [facility] Last Admin: 07/28/21 10:16 Dose: Not Given Documented by: Furosemide (Furosemide 10 Mg/Ml 10 Ml Vial) 60 mg IV Q12HR [facility] Last Admin: 07/28/21 10:16 Dose: Not Given Documented by: Insulin Aspart (Insulin Aspart (Novolog) 100 Unit/Ml Vial) 0 unit SQ ACHS [facility]; Protocol Last Admin: 07/28/21 13:55 Dose: Not Given Documented by: Insulin Detemir (Insulin Detemir (Levemir) 100 Unit/Ml Syr) 25 unit SQ HS [facility] Last Admin: 07/27/21 22:06 Dose: Not Given Documented by: Levothyroxine Sodium (Levothyroxine 25 Mcg Tab) 25 mcg PO DAILY@0630 [facility] Last Admin: 07/28/21 05:38 Dose: 25 mcg Documented by: Loperamide HCl (Loperamide 2 Mg Cap) 2 mg PO Q6H PRN PRN Reason: Diarrhea Metoprolol Succinate (Metoprolol Succinate (Er) 50 Mg Tab.Er.24h) 50 mg PO [facility] Last Admin: 07/27/21 22:06 Dose: 50 mg Documented by: Midodrine (Midodrine 5 Mg Tab) 10 mg PO TID [facility] Last Admin: 07/28/21 11:59 Dose: 10 mg Documented by: Ondansetron HCl (Ondansetron 4 Mg Tab) 4 mg PO Q8H PRN PRN Reason: Nausea And Vomiting Ondansetron HCl (Ondansetron 4 Mg/2 Ml Vial) 4 mg IVP Q6HR PRN PRN Reason: Nausea And Vomiting Last Admin: 07/28/21 05:38 Dose: 4 mg Documented by: Pantoprazole Sodium (Pantoprazole 40 Mg Tablet) 40 mg PO AC-BRKFST [facility] Last Admin: 07/28/21 10:15 Dose: Not Given Documented by: Tamsulosin HCl (Tamsulosin 0.4 Mg Cap.Er.24h) 0.4 mg PO DAILY@1400 [facility] Last Admin: 07/27/21 13:26 Dose: 0.4 mg Documented by: PHYSICAL EXAMINATION: GENERAL: The patient is alert and oriented x3, not in any acute distress. Well developed, well nourished. HEENT: Pupils are round and equally reacting to light. EOMI. No scleral icterus. No conjunctival pallor. Normocephalic, atraumatic. No pharyngeal erythema. No thyromegaly. CARDIOVASCULAR: S1 and S2 present. No murmurs, rubs, or gallops. PULMONARY: Bibasilar crackles ABDOMEN: Soft, nontender, nondistended, normoactive bowel sounds. No palpable organomegaly. MUSCULOSKELETAL: No joint swelling or deformity. EXTREMITIES: No cyanosis, clubbing, and a thickened anasarca and extensive pedal edema, left wrist malunion noted NEUROLOGICAL: Gross neurological examination did not reveal any focal deficits. Significant muscle weakness muscle atrophy generalized weakness. SKIN: No rashes. Assessment: -Shortness of breath secondary to congestive heart failure chronic diastolic dysfunction with acute exacerbation secondary to cardiorenal syndrome patient received right femoral temporary dialysis catheter and is receiving daily hemodialysis with nephrology following -Severe anasarca secondary to cardiorenal syndrome as mentioned above. Hemodialysis daily per nephrology for now -Hyperkalemia secondary to acute renal failure patient received to potassium binders present the potassium is 5.5 -Hypomagnesemia magnesium will be replaced -Chronic respiratory failure secondary to COPD uses 5 L of oxygen at home -Hypertension -Hyperlipidemia -Hypothyroidism -History of recent fall and fracture to the left wrist with malunion noted -Paroxsymal atrial fibrillation presently rate controlled patient does have sick sinus syndrome history patient has a pacemaker -Type 2 diabetes mellitus -DVT prophylaxis: he is on 2.5 mg of Eliquis -full code plan: Recommend continue with current medication and daily hemodialysis with nephrology following closely. patient currently has a temporary catheter placed in the right groin with Dr. Arana vascular surgery following and will discuss further if permanent dialysis catheter is placed in case management following to discuss possible hemodialysis in the outpatient center. Kidney functions improving and patient is producing urine and is continued on IV Lasix and will continue. Will continue to monitor closely. Due to multiple complex medical issues, prognosis is guarded. will repeat a.m. labs. The impression and plan of care has been dictated by Rochelle Salinas, Nurse Practitioner as directed. Dr. Garo MD I have performed a history and examination and MDM of this patient, discussed the same with the dictator, and agree with the dictator's assessment and plan as written ,documented as a scribe. Based on total visit time, I have performed more than 50% of the visit. Objective - Vital Signs Vital signs: Vital Signs Temp 98.9 F 07/28/21 08:00 Pulse 85 07/28/21 08:00 Resp 16 07/28/21 08:00 BP 132/66 07/28/21 08:00 Pulse Ox 95 07/28/21 08:00 Intake & Output 07/27/21 07/28/21 07/28/21 18:59 06:59 18:59 Intake Total 720 Output Total 1500 725 Balance -1500 -5 Weight 96.615 kg Intake: Oral 720 Output: Urine 725 Hemodialysis 1500 Other: Voiding Method Urinal # Voids 1 # Bowel Movements 1 - Labs CBC & Chem 7: 07/26/21 16:18 07/28/21 06:51 Labs: Abnormal Lab Results - Last 24 Hours (Table) 07/27/21 07/27/21 07/27/21 Range/Units 10:42 10:42 17:51 Sodium 136 L (137-145) mmol/L Potassium 5.9 H (3.5-5.1) mmol/L Carbon Dioxide 20 L (22-30) mmol/L BUN 182 H* (9-20) mg/dL Creatinine 10.22 H* (0.66-1.25) mg/dL Glucose 114 H (74-99) mg/dL POC Glucose (mg/dL) 110 H (75-99) mg/dL Calcium 7.9 L (8.4-10.2) mg/dL Phosphorus 7.3 H (2.4-5.1) mg/dL Urine Protein (Negative) Urine Blood (Negative) Ur Leukocyte Esterase (Negative) Urine RBC (0-5) /hpf Urine WBC (0-5) /hpf Urine Bacteria (None) /hpf Urine Yeast (Budding) (None) /hpf 07/27/21 07/27/21 07/28/21 Range/Units 21:00 23:50 02:49 Sodium (137-145) mmol/L Potassium (3.5-5.1) mmol/L Carbon Dioxide (22-30) mmol/L BUN (9-20) mg/dL Creatinine (0.66-1.25) mg/dL Glucose (74-99) mg/dL POC Glucose (mg/dL) 116 H 147 H (75-99) mg/dL Calcium (8.4-10.2) mg/dL Phosphorus (2.4-5.1) mg/dL Urine Protein Trace H (Negative) Urine Blood Moderate H (Negative) Ur Leukocyte Esterase Trace H (Negative) Urine RBC >182 H (0-5) /hpf Urine WBC 11 H (0-5) /hpf Urine Bacteria Rare H (None) /hpf Urine Yeast (Budding) Occasional H (None) /hpf 07/28/21 Range/Units 07:10 Sodium (137-145) mmol/L Potassium (3.5-5.1) mmol/L Carbon Dioxide (22-30) mmol/L BUN (9-20) mg/dL Creatinine (0.66-1.25) mg/dL Glucose (74-99) mg/dL POC Glucose (mg/dL) 146 H (75-99) mg/dL Calcium (8.4-10.2) mg/dL Phosphorus (2.4-5.1) mg/dL Urine Protein (Negative) Urine Blood (Negative) Ur Leukocyte Esterase (Negative) Urine RBC (0-5) /hpf Urine WBC (0-5) /hpf Urine Bacteria (None) /hpf Urine Yeast (Budding) (None) /hpf
[2021-07-28] MEDS: allopurinoL 100 MG TAB PO SCH (15:34)
[2021-07-28] MEDS: TAMSULOSIN 0.4 MG CAP.ER.24H PO SCH (15:34)
[2021-07-28 16:47] LABS: Glucose,Whole Blood 153 mg/dL (75-99)
[2021-07-28 18:43] LABS: Complement C3 78.8 mg/dL (80.0-207.0)
[2021-07-28 20:07] LABS: Glucose,Whole Blood 228 mg/dL (75-99)
[2021-07-28] MEDS: INSULIN DETEMIR (LEVEMIR) 100 UNIT/ML SYR SQ SCH (21:00)
[2021-07-28] MEDS: METOPROLOL SUCCINATE (ER) 50 MG TAB.ER.24H PO SCH (21:00)
[2021-07-28 21:54] LABS: African American GFR (CKD) 7.9 (60.0-200.0); Non-African American GFR(CKD) 6.8 (60.0-200.0)
[2021-07-29] MEDS: ONDANSETRON 4 MG/2 ML VIAL IVP PRN ×2 (00:06→20:13)
[2021-07-29] MEDS: INSULIN ASPART (NovoLOG) 100 UNIT/ML VIAL SQ SCH ×5 (01:09→20:22)
[2021-07-29] MEDS: LEVOTHYROXINE 25 MCG TAB PO SCH (05:29)
[2021-07-29] MEDS: HYDROcodone/APAP 5-325MG 1 EACH TAB PO PRN ×2 (05:32→20:12)
[2021-07-29 07:05] LABS: Glucose,Whole Blood 79 mg/dL (75-99)
[2021-07-29] MEDS ORDERED: PROMETHAZINE 25 MG TAB PO PRN (08:38)
[2021-07-29] MEDS: MIDODRINE 5 MG TAB PO SCH ×3 (08:45→20:25)
[2021-07-29] MEDS: APIXABAN 2.5 MG TABLET PO SCH ×2 (08:45→20:12)
[2021-07-29] MEDS: PANTOPRAZOLE 40 MG TABLET PO SCH (08:46)
[2021-07-29] MEDS: IPRATROPIUM-ALBUTEROL 3 ML NEB INHALATION SCH ×4 (08:58→21:16)
[2021-07-29] MEDS: BUDESONIDE 0.5 MG/2 ML NEBU INHALATION SCH ×2 (09:00→21:16)
[2021-07-29] MEDS: SYMBICORT 160-4.5 MCG INHALER INHALATION SCH ×2 (09:00→21:15)
[2021-07-29] MEDS: FUROSEMIDE 10 MG/ML 10 ML VIAL IV SCH ×2 (09:07→20:13)
[2021-07-29] MEDS: FERROUS SULFATE 325 MG TAB PO SCH (10:02)
[2021-07-29] MEDS: ASCORBIC ACID 500 MG TAB PO SCH ×2 (10:02→20:12)
[2021-07-29] MEDS: CHOLECALCIFEROL 25 MCG (1000 IU) TABLET PO SCH (10:02)
--- NOTE | 2021-07-29 11:07 | P.PN ---
Subjective Patient is a 65-year-old male with multiple medical problems multiple comorbidities was recently discharged from the hospital after he was treated for volume or note from chronic gastritis function and the cardiorenal syndrome. Patient was discharged to rehab facility 2 days into rehab related patient patient went home and started having shortness of breath volume overload diffuse anasarca and pedal edema. Patient is found to be in significant volume or lower chest x-ray showed bilateral pleural effusion although this appears to have improved compared to last admission when he had thoracentesis. Patient has significant lab abnormalities including creatinine going up to around 10 potassium 6.2 very low magnesium of 0.9 nephrology was consulted. As per nephrology patient will lead hemodialysis, consult to vascular surgery was placed for hemodialysis catheter placement and patient will be subsequently started on hemodialysis. Patient does have advanced COPD uses about 5 L of oxygen. 07/28/2021 Patient is seen and evaluated and follow-up has received hemodialysis catheter and is receiving hemodialysis today. Kidney functions improving and patient reports to producing more urine. Current creatinine is 7.6 today potassium is 5 .5 and sodium is 139. Blood sugars have been more manageable and will continue current regimen. Patient continues on 5 L via nasal cannula which is chronic for him. Nephrology following closely and will continue with dialysis daily at this time. Patient is also maintained on IV Lasix and will continue. Patient denies chest pain, shortness of breath, or palpitations. Patient is afebrile. No nausea or vomiting noted and patient is tolerating diet. subjective: resume the care of the pt today 07/29/2021 This is a pleasant 65 years old male with stage IV chronic kidney disease presents with fatigue and worsening kidney function requiring hemodialysis which is a started during this admission after a catheter placed in the right groin. He is hemodynamically stable, he is on 5 L per minute of oxygen but saturating 98-99%, we will try to titrate his oxygen down. No much dyspnea or cough and while he is lying flat in bed but he feels very weak all over. His been having recurrent nausea vomiting, mainly worked first of this morning but he is fully awake with no headache. No abdominal pain. He is hemodynamically stable, hemoglobin 7.4 with evidence of chronic anemia, also he is on ferrous sulfate once daily at home. This currently on home dose of liquids 2.5 and IV Lasix 60 mg twice daily. Ultrasound of the abdomen showing no hydronephrosis or nephrolithiasis. And chest x-ray showed small right pleural effusion with atelectasis. Also patient has chronic left leg wound secondary to a fall about 3 months ago. Patient refused to take the dressing off. We consulted once care. Patient is on Zofran already, we added Phenergan. We ordered a KUB. Also ask for PT OT evaluation. WOUND TEAM CONSULT Review of systems CONSTITUTIONAL: No fever, no malaise, no fatigue. HEENT: No recent visual problems or hearing problems. Denied any sore throat. CARDIOVASCULAR: No orthopnea, PND, no palpitations, no syncope. PULMONARY: No chest wall tenderness, no hemoptysis. GASTROINTESTINAL: No diarrhea, no nausea, no vomiting, no abdominal pain. Normoactive bowel sounds. NEUROLOGICAL: No headaches, no specific extremity or local weakness, no numbness. Active Medications Generic Name Dose Route Start Last Admin Trade Name Freq PRN Reason Stop Dose Admin Hydrocodone Bitart/Acetaminophen 2 each 07/26/21 22:58 07/29/21 05:32 Hydrocodone/Apap 5-325mg 1 Each Tab PO 2 each Q6HR PRN Administration Pain Albuterol/Ipratropium 3 ml 07/27/21 08:00 07/29/21 08:58 Ipratropium-Albuterol 3 Ml Neb INHALATION 3 ml RT-QID ASHISH Administration Albuterol/Ipratropium 3 ml 07/26/21 21:47 Ipratropium-Albuterol 3 Ml Neb INHALATION RT-Q4H PRN Shortness Of Breath Allopurinol 200 mg 07/27/21 14:00 07/28/21 15:34 Allopurinol 100 Mg Tab PO Not Given DAILY@1400 [facility] Apixaban 2.5 mg 07/27/21 09:00 07/29/21 08:45 Apixaban 2.5 Mg Tablet PO 2.5 mg BID [facility] Administration Protocol Artificial Tears 2 drops 07/26/21 21:47 Artificial Tears-Hypromellose Drops 15 Ml Btl BOTH EYES TID PRN Dry Eye(s) Ascorbic Acid 1,000 mg 07/27/21 09:00 07/29/21 10:02 Ascorbic Acid 500 Mg Tab PO Not Given BID [facility] Budesonide 0.5 mg 07/27/21 08:00 07/29/21 09:00 Budesonide 0.5 Mg/2 Ml Nebu INHALATION 0.5 mg RT-BID [facility] Administration Budesonide/Formoterol Fumarate 2 puff 07/27/21 08:00 07/29/21 09:00 Symbicort 160-4.5 Mcg Inhaler INHALATION Not Given RT-BID [facility] Cholecalciferol 25 mcg 07/27/21 09:00 07/29/21 10:02 Cholecalciferol 25 Mcg (1000 Iu) Tablet PO Not Given DAILY [facility] Darbepoetin Hubert 60 mcg 08/01/21 22:00 Darbepoetin Hubert 60 Mcg/0.3 Ml Syringe SQ Q7D [facility] Dicyclomine HCl 20 mg 07/26/21 21:47 Dicyclomine 20 Mg Tab PO Q8H PRN IBS Ferrous Sulfate 325 mg 07/27/21 09:00 07/29/21 10:02 Ferrous Sulfate 325 Mg Tab PO Not Given DAILY [facility] Furosemide 60 mg 07/27/21 21:00 07/29/21 09:07 Furosemide 10 Mg/Ml 10 Ml Vial IV 60 mg Q12HR [facility] Administration Insulin Aspart 0 unit 07/27/21 07:30 07/29/21 09:06 Insulin Aspart (Novolog) 100 Unit/Ml Vial SQ Not Given ACHS [facility] Protocol Insulin Detemir 25 unit 07/27/21 21:00 07/28/21 21:00 Insulin Detemir (Levemir) 100 Unit/Ml Syr SQ 25 unit HS [facility] Administration Levothyroxine Sodium 25 mcg 07/27/21 06:30 07/29/21 05:29 Levothyroxine 25 Mcg Tab PO 25 mcg DAILY@0630 [facility] Administration Loperamide HCl 2 mg 07/26/21 21:47 Loperamide 2 Mg Cap PO Q6H PRN Diarrhea Metoprolol Succinate 50 mg 07/27/21 21:00 07/28/21 21:00 Metoprolol Succinate (Er) 50 Mg Tab.Er.24h PO 50 mg HS [facility] Administration Midodrine 10 mg 07/26/21 22:00 07/29/21 08:45 Midodrine 5 Mg Tab PO 10 mg TID ASH[facility] Administration Ondansetron HCl 4 mg 07/26/21 21:47 Ondansetron 4 Mg Tab PO Q8H PRN Nausea And Vomiting Ondansetron HCl 4 mg 07/28/21 00:45 07/29/21 00:06 Ondansetron 4 Mg/2 Ml Vial IVP 4 mg Q6HR PRN Administration Nausea And Vomiting Pantoprazole Sodium 40 mg 07/27/21 07:30 07/29/21 08:46 Pantoprazole 40 Mg Tablet PO 40 mg AC-BRKFST [facility] Administration Promethazine HCl 25 mg 07/29/21 08:38 Promethazine 25 Mg Tab PO Q6HR PRN Nausea Tamsulosin HCl 0.4 mg 07/27/21 14:00 07/28/21 15:34 Tamsulosin 0.4 Mg Cap.Er.24h PO Not Given DAILY@1400 [facility] Objective - Vital Signs Vital signs: Vital Signs Temp 99.0 F 07/29/21 08:00 Pulse 84 07/29/21 09:21 Resp 14 07/29/21 08:50 BP 139/62 07/29/21 08:00 Pulse Ox 100 07/29/21 08:00 Intake & Output 07/28/21 07/29/21 07/29/21 18:59 06:59 18:59 Output Total 2500 75 Balance -2500 -75 Output: Urine 200 75 Hemodialysis 2300 Other: Voiding Method Urinal Urinal Urinal - Exam -GENERAL: The patient is alert and oriented x3, not in any acute distress. Generally weak HEENT: Pupils are round and equally reacting to light. EOMI. No scleral icterus. No conjunctival pallor. Normocephalic, atraumatic. No pharyngeal erythema. No thyromegaly. CARDIOVASCULAR: S1 and S2 present. No murmurs, rubs, or gallops. PULMONARY: Chest is clear to auscultation, no wheezing or crackles. ABDOMEN: Soft, nontender, nondistended, normoactive bowel sounds. No palpable organomegaly. MUSCULOSKELETAL: No joint swelling or deformity. -EXTREMITIES: No cyanosis, clubbing, or pedal edema. Left leg wound with dressing. Right groin hemodialysis catheter is in place NEUROLOGICAL: Gross neurological examination did not reveal any focal deficits. SKIN: No rashes. no petechiae. - Labs CBC & Chem 7: 07/26/21 16:18 07/28/21 06:51 Labs: Abnormal Lab Results - Last 24 Hours (Table) 03/23/22 03/23/22 03/23/22 Range/Units 06:51 11:53 12:59 BUN 118.0 H* (9.0-27.0) mg/dL Creatinine 7.6 H* (0.6-1.5) mg/dL Est GFR (CKD-EPI)AfAm 7.9 L (60.0-200.0) Est GFR (CKD-EPI)NonAf 6.8 L (60.0-200.0) Glucose 141 H (70-110) mg/dL POC Glucose (mg/dL) 162 H (75-99) mg/dL Calcium 8.5 L (8.7-10.3) mg/dL Complement C3 78.8 L (80.0-207.0) mg/dL 07/28/21 07/28/21 Range/Units 16:46 20:05 BUN (9.0-27.0) mg/dL Creatinine (0.6-1.5) mg/dL Est GFR (CKD-EPI)AfAm (60.0-200.0) Est GFR (CKD-EPI)NonAf (60.0-200.0) Glucose (70-110) mg/dL POC Glucose (mg/dL) 153 H 228 H (75-99) mg/dL Calcium (8.7-10.3) mg/dL Complement C3 (80.0-207.0) mg/dL Assessment and Plan Assessment: - Acute kidney injury on stage IV CKD, started on edge D during this admission - acute diastolic congestive heart failure secondary to cardiorenal - anasarca secondary to cardiorenal syndrome as mentioned above. Hemodialysis daily per nephrology for now -Hyperkalemia secondary to acute renal failur, resolved -Hypomagnesemia magnesium will be replaced per Protocol -Chronic respiratory failure secondary to COPD , 5 L of oxygen at home -Hypertension -Hyperlipidemia -Hypothyroidism -History of recent fall and fracture to the left wrist with malunion noted -Paroxsymal atrial fibrillation presently rate controlled patient does have sick sinus syndrome history patient has a pacemaker -Type 2 diabetes mellitus Plan: This is a pleasant 65 years old male presents with acute kidney injury and CHF. Started on hemodialysis. Continue with hemodialysis per nephrology team. Continue with IV Lasix. Continue with home dose of liquids 2.5. Continue with insulin and ISS. Consult wound care Order KUB and Phenergan on the top of his Zofran. Labs and medication were reviewed.. Continue same treatment. Continue with symptomatic treatment. Resume home medication. Monitor lytes and vitals. DVT and GI prophylaxis. Further recommendationsas per clinical course of the patient DVT prophylaxis: Eliquis GI Prophylaxis: Ppi PT/OT: Pending Prognosis is guarded
--- NOTE | 2021-07-29 11:45 | P.PN ---
Subjective Patient is seen for follow-up for acute kidney injury and top of chronic kidney disease Patient has underlying CK D stage IV with recent worsening of his renal function. Patient has underlying chronic kidney disease with recent worsening of his renal function since May 2021. He was admitted to the hospital with a creatinine of around 10.2. Patient was started on dialysis and is having his third treatment today. He also has underlying volume overload. Patient tolerated his treatment well. Overall feeling better. No obstruction noted on ultrasound. no complaints today Objective - Vital Signs Vital signs: Vital Signs Temp 99.0 F 07/29/21 08:00 Pulse 84 07/29/21 09:21 Resp 14 07/29/21 08:50 BP 139/62 07/29/21 08:00 Pulse Ox 100 07/29/21 08:00 Intake & Output 07/28/21 07/29/21 07/29/21 18:59 06:59 18:59 Output Total 2500 75 Balance -2500 -75 Output: Urine 200 75 Hemodialysis 2300 Other: Voiding Method Urinal Urinal Urinal - Exam Awake, comfortable, not in any acute distress Examination of the heart Examination of the lungs shows decreased breath sounds at the bases Examination lower extremity shows edema 1+ bilaterally QA DEVELOPER exam grossly intact Significant pain and limitation of movement on the left shoulder and left upper extremity - Labs CBC & Chem 7: 07/26/21 16:18 07/28/21 06:51 Labs: Abnormal Lab Results - Last 24 Hours (Table) 07/28/21 07/28/21 07/28/21 Range/Units 06:51 11:53 12:59 BUN 118.0 H* (9.0-27.0) mg/dL Creatinine 7.6 H* (0.6-1.5) mg/dL Est GFR (CKD-EPI)AfAm 7.9 L (60.0-200.0) Est GFR (CKD-EPI)NonAf 6.8 L (60.0-200.0) Glucose 141 H (70-110) mg/dL POC Glucose (mg/dL) 162 H (75-99) mg/dL Calcium 8.5 L (8.7-10.3) mg/dL Complement C3 78.8 L (80.0-207.0) mg/dL 07/28/21 07/28/21 Range/Units 16:46 20:05 BUN (9.0-27.0) mg/dL Creatinine (0.6-1.5) mg/dL Est GFR (CKD-EPI)AfAm (60.0-200.0) Est GFR (CKD-EPI)NonAf (60.0-200.0) Glucose (70-110) mg/dL POC Glucose (mg/dL) 153 H 228 H (75-99) mg/dL Calcium (8.7-10.3) mg/dL Complement C3 (80.0-207.0) mg/dL Assessment and Plan Assessment: 1. Acute kidney injury most likely ATN, currently nonoliguric. However given the significantly elevated BUN/creatinine creatinine and volume overload with hyperkalemia, started on hemodialysis on 07/27/2021. No obstruction on ultrasound. UA shows trace protein and moderate blood. I will order serologies to rule out any underlying GN 2. Chronic kidney disease NKF stage IIIB secondary to nephrosclerosis with previous creatinine as low as 1.4 in May 2021 but most recently staying as high as 3.1-3.0 on 07/07/2021 with episodes of acute kidney injury during his hospitalizations for CHF and pneumonia. 3. CHF exacerbation, diastolic 4. Volume overload 5. Hyperkalemia associated with acute kidney injury, no urine retention noted, improved post dialysis 6. Hypomagnesemia currently being replaced etiology diuretics 7. Paroxysmal A. fib with controlled ventricular response status post pacemaker Plan: Hemodialysis today. Will evaluate tomorrow for hemodialysis in a.m. Check labs in a.m. Follow-up on serologies.
--- NOTE | 2021-07-29 11:50 | P.CONS ---
History of Present Illness - Reason for Consult Consult date: 07/29/21 wound care - History of Present Illness This is a 65-year-old patient being seen on 4 S. for a nonhealing ulceration to the left plantar foot. Patient previously had a ulceration to the left anterior lower extremity however the ulceration is healed. Patient has medical history significant for atrial fibrillation, heart failure, COPD, diabetes, DVT, GERD, hyperlipidemia, hypertension, chronic kidney disease stage III, hypothyroidism, peripheral vascular disease. Patient has a nonhealing ulceration with fatty layer exposure to the left plantar foot proximal to the hallux. Ulceration has significant amount of slough noted. Wound edges are not touch to the wound base. No tunneling or undermining noted. Ulceration measures approximately 1.3 x 1.5 x 0.1 cm. Review Of Systems: Constitutional: No fever, no chills, no night sweats. No weight change. No weakness, fatigue or lethargy. No daytime sleepiness. Integumentary:reports wounds, no lesions. No rash or pruritus. No unusual bruising. No change in hair or nails. Physical exam: General Appearance: Alert, cooperative, no distress, appears stated age. Skin: See HPI all other Skin color, texture, tugor normal, no rashes or lesions. Neurologic: Alert oriented x3 Assessment: 1. Nonhealing ulceration to the left foot nonpressure component with fat layer exposure 2. Diabetes foot ulcer Plan: 1. Apply honey alginate, saline moistened gauze, dry gauze, rolled gauze and secure with paper tape. Change Monday. Patient would benefit from continued advanced wound care and wound care center. We will be happy to see him upon discharge. Patient was reluctant to agree to an appointment. Thank you for the consultation any questions please contact the wound care center DNP note has been reviewed and discussed with Dr. Simmons and the impression and plan of care has been directed as dictated. Past Medical History Past Medical History: Atrial Fibrillation, Heart Failure, COPD, Diabetes Mellitus, Deep Vein Thrombosis (DVT), GERD/Reflux, Hyperlipidemia, Hypertension, Pneumonia, Renal Disease, Respiratory Disorder, Skin Disorder, Sleep Apnea/CPAP/BIPAP, Vascular Disorder Additional Past Medical History / Comment(s): Pt recently admitted to [facility] on 06/24/21 with acute/chronic kidney disease, acute on chronic hypoxic respiratory distress, acute CHF, bilateral pleural effusion/R side worse and had thoracentesis, sputum with pseudomonos aeraginosis, hemotysis. Other hx: Chronic hypoxic respiratory failure and the patient OXYGEN dependent 5 L, previous history of left-sided pneumothorax requiring a Thoravent insertion, 2014 covid, IDDM type II, neuropathy bilateral feet, paroxysmal AFIB, SSS with pacer, nonischemic cardiomyopathy, past alcoholism/DTs, diverticulosis, obstuctive sleep apnea but no Cpap since wt loss, sinusitis, elevated LFTs, BPH, CKD stag III, DVT R leg, gout, hypothyroid, hypomagnesemia, hypoalbuminemia, anemia, protein calorie malnutrition, PVD, current sores bottom of L foot, left wrist fracture History of Any Multi-Drug Resistant Organisms: None Reported Past Surgical History: Appendectomy, Cholecystectomy, Heart Catheterization, Pacemaker Additional Past Surgical History / Comment(s): Partial liver removed d/t adhesions, colonoscopies, bilateral eyes blepharoplasties, pacer Past Anesthesia/Blood Transfusion Reactions: Postoperative Nausea & Vomiting (PONV) Additional Past Anesthesia/Blood Transfusion Reaction / Comm: Pt states he has had PONV with gas only. Type of Cardiac Device: Permanent Pacemaker Device Placement Date:: 2017 Smoking Status: Former smoker - Past Family History Mother Family Medical History: Thyroid Disorder Additional Family Medical History / Comment(s): . Father Additional Family Medical History / Comment(s): Father of diverticulitis,peritonitis at the age of 35yrs. Medications and Allergies Home Medications Medication Instructions Recorded Confirmed Type Tamsulosin [Flomax] 0.4 mg PO HS 06/23/16 07/27/21 History ondansetron HCL [Zofran] 4 mg PO Q8H PRN 09/30/18 07/26/21 History Apixaban [Eliquis] 2.5 mg PO BID 01/11/19 07/26/21 History Insulin Glargine,Hum.rec.anlog 25 unit SQ HS@199908/02/20 07/26/21 History [Lantus Solostar Pen] Levothyroxine Sodium [Synthroid] 25 mcg PO DAILY@0700 08/02/20 07/26/21 History Ipratropium/Albuter 20-100Mcg 1 puff INHALATION RT-QID 05/17/21 07/26/21 History [Combivent Respimat 20-100Mcg Inhaler] Lidocaine 5% Patch [Lidoderm 5% 1 patch TOPICAL DAILY@1600 PRN 05/17/21 07/26/21 History Patch] Midodrine HCl [ProAmatine] 10 mg PO TID 05/17/21 07/26/21 History allopurinoL [Zyloprim] 200 mg PO DAILY@1400 05/17/21 07/26/21 History Ascorbic Acid [Vitamin C] 1,000 mg PO BID@0800,1400 06/24/21 07/26/21 History Budesonide [Pulmicort] 0.5 mg INHALATION RT-BID 06/24/21 07/26/21 History Cholecalciferol [Vitamin D3 (25 25 mcg PO DAILY@0800 06/24/21 07/26/21 History Mcg = 1000 Iu)] Dicyclomine [Bentyl] 20 mg PO Q8H PRN 06/24/21 07/26/21 History Ferrous Sulfate [Iron (65 MG 325 mg PO DAILY@0800 06/24/21 07/26/21 History Elemental)] Fluticasone/Vilanterol [Breo 1 puff INHALATION RT-DAILY@0600 06/24/21 07/26/21 History Ellipta 200-25 Mcg Inhaler] INSULIN ASPART (NovoLOG) [NovoLOG See Protocol SQ ACHS 06/24/21 07/26/21 History (formulary)] Ipratropium-Albuterol Nebulize 3 ml INHALATION RT-Q4H PRN 06/24/21 07/26/21 History [Duoneb 0.5 mg-3 mg/3 ml Soln] Loperamide HCl [Loperamide] 2 mg PO Q6H PRN 06/24/21 07/26/21 History Metoprolol Succinate (ER) [Toprol 50 mg PO HS@199906/24/21 07/26/21 History XL] Torsemide [Demadex] 40 mg PO DAILY@0700 06/24/21 07/26/21 History Artificial Tears-Hypromellose 2 drops BOTH EYES TID PRN ml 07/07/21 07/26/21 Rx [Artificial Tear Drops] Darbepoetin Hubert [Aranesp] 60 mcg SQ Q7D each 07/07/21 07/26/21 Rx Ipratropium-Albuterol Nebulize 3 ml INHALATION RT-QID ml 07/07/21 07/26/21 Rx [Duoneb 0.5 mg-3 mg/3 ml Soln] Pantoprazole [Protonix] 40 mg PO AC-BRKFST tab 07/07/21 07/26/21 Rx diphenhydrAMINE [Benadryl] 25 mg PO TID PRN cap 07/07/21 07/26/21 Rx Allergies Allergy/AdvReac Type Severity Reaction Status Date / Time codeine Allergy Unknown Verified 07/26/21 20:10 Physical Exam Vitals: Vital Signs Temp Pulse Pulse Resp BP Pulse Ox 07/29/21 09:21 84 07/29/21 09:01 86 07/29/21 08:50 68 14 07/29/21 08:00 99.0 F 68 14 139/62 100 07/29/21 01:21 98.6 F 83 15 115/69 98 07/28/21 20:35 85 07/28/21 20:25 84 99 07/28/21 18:05 98.1 F 99 18 132/71 93 L 07/28/21 18:00 98.7 F 96 16 149/76 100 07/28/21 14:00 98.6 F 88 14 127/67 98 07/28/21 13:27 97.7 F 84 18 131/71 Intake and Output 07/28/21 07/29/21 07/29/21 22:59 06:59 14:59 Output Total 200 75 Balance -200 -75 Output: Urine 200 75 Other: Voiding Method Urinal Urinal Results CBC & Chem 7: 07/26/21 16:18 07/28/21 06:51 Labs: Abnormal Lab Results - Last 24 Hours (Table) 07/28/21 07/28/21 07/28/21 Range/Units 06:51 11:53 12:59 BUN 118.0 H* (9.0-27.0) mg/dL Creatinine 7.6 H* (0.6-1.5) mg/dL Est GFR (CKD-EPI)AfAm 7.9 L (60.0-200.0) Est GFR (CKD-EPI)NonAf 6.8 L (60.0-200.0) Glucose 141 H (70-110) mg/dL POC Glucose (mg/dL) 162 H (75-99) mg/dL Calcium 8.5 L (8.7-10.3) mg/dL Complement C3 78.8 L (80.0-207.0) mg/dL 07/28/21 07/28/21 Range/Units 16:46 20:05 BUN (9.0-27.0) mg/dL Creatinine (0.6-1.5) mg/dL Est GFR (CKD-EPI)AfAm (60.0-200.0) Est GFR (CKD-EPI)NonAf (60.0-200.0) Glucose (70-110) mg/dL POC Glucose (mg/dL) 153 H 228 H (75-99) mg/dL Calcium (8.7-10.3) mg/dL Complement C3 (80.0-207.0) mg/dL Assessment and Plan (1) Non-pressure chronic ulcer of other part of left foot with fat layer exposed Current Visit: Yes Status: Acute Code(s): L97.522 - NON-PRS CHRONIC ULCER OTH PRT LEFT FOOT W FAT LAYER EXPOSED SNOMED Code(s): 905008251 (2) Type 2 diabetes mellitus with foot ulcer Current Visit: Yes Status: Acute Code(s): E11.621 - TYPE 2 DIABETES MELLITUS WITH FOOT ULCER; L97.509 - NON-PRESSURE CHRONIC ULCER OTH PRT UNSP FOOT W UNSP SEVERITY SNOMED Code(s): 589990541
[2021-07-29 11:54] LABS: Glucose,Whole Blood 81 mg/dL (75-99)
--- NOTE | 2021-07-29 12:59 | XR ---
EXAMINATION TYPE: XR KUB portable DATE OF EXAM: 07/29/2021 COMPARISON: NONE HISTORY: Vomiting TECHNIQUE: One view abdominal series FINDINGS: The osseous structures are intact. The bowel gas pattern is nonspecific. Right-sided femoral cathete r. Metallic device overlying the right abdomen with tiny metallic density overlying the right iliac b one which could be related to bowel content or chronic foreign body. Hypertrophic and degenerative ch dann of the spine. Right basilar infiltrate and small effusion.. IMPRESSION: 1. Nonspecific abdomen. 2. Bibasilar infiltrate and small effusion.
[2021-07-29 15:14] LABS: C-ANCA <1:20 Titer (<1:20)
--- NOTE | 2021-07-29 15:53 | XR ---
EXAMINATION TYPE: XR chest 1V DATE OF EXAM: 07/29/2021 COMPARISON: 07/26/2021 HISTORY: Shortness of breath TECHNIQUE: Single frontal view of the chest is obtained. FINDINGS: Hyperinflation with cardiac device and cardiomegaly. Bilateral infiltrate and pleural effu allen. Diffuse interstitial pattern. No pneumothorax. IMPRESSION: Correlate for CHF. Otherwise consider pneumonia.
[2021-07-29 16:47] LABS: Glucose,Whole Blood 88 mg/dL (75-99)
[2021-07-29] MEDS: allopurinoL 100 MG TAB PO SCH (17:44)
[2021-07-29] MEDS: TAMSULOSIN 0.4 MG CAP.ER.24H PO SCH (17:44)
[2021-07-29 19:22] LABS: Anti-DNA, DS unit <1.0 IU/mL; DNA Double-Stranded NEGATIVE (NEGATIVE)
[2021-07-29] MEDS: METOPROLOL SUCCINATE (ER) 50 MG TAB.ER.24H PO SCH (20:12)
[2021-07-29 20:20] LABS: Glucose,Whole Blood 218 mg/dL (75-99)
[2021-07-29] MEDS: INSULIN DETEMIR (LEVEMIR) 100 UNIT/ML SYR SQ SCH (20:22)
[2021-07-30] MEDS: LEVOTHYROXINE 25 MCG TAB PO SCH (06:22)
[2021-07-30] MEDS: INSULIN ASPART (NovoLOG) 100 UNIT/ML VIAL SQ SCH ×4 (07:51→21:45)
[2021-07-30] MEDS: MIDODRINE 5 MG TAB PO SCH ×3 (07:51→22:38)
[2021-07-30] MEDS: APIXABAN 2.5 MG TABLET PO SCH ×2 (08:01→21:44)
[2021-07-30] MEDS: FERROUS SULFATE 325 MG TAB PO SCH (08:01)
[2021-07-30] MEDS: CHOLECALCIFEROL 25 MCG (1000 IU) TABLET PO SCH (08:01)
[2021-07-30] MEDS: PANTOPRAZOLE 40 MG TABLET PO SCH (08:01)
[2021-07-30] MEDS: FUROSEMIDE 10 MG/ML 10 ML VIAL IV SCH ×2 (08:01→21:44)
[2021-07-30] MEDS: ASCORBIC ACID 500 MG TAB PO SCH ×2 (08:01→21:45)
[2021-07-30] MEDS: IPRATROPIUM-ALBUTEROL 3 ML NEB INHALATION SCH ×4 (08:35→19:57)
[2021-07-30] MEDS: BUDESONIDE 0.5 MG/2 ML NEBU INHALATION SCH ×2 (08:35→19:57)
[2021-07-30] MEDS: SYMBICORT 160-4.5 MCG INHALER INHALATION SCH ×2 (08:41→19:57)
[2021-07-30] MEDS: HYDROcodone/APAP 5-325MG 1 EACH TAB PO PRN ×2 (09:59→22:38)
[2021-07-30 10:30] LABS: African American GFR (CKD) 17 (>60 ml/min/1.73 sqM); Anion Gap 8 mmol/L; Blood Urea Nitrogen 38 mg/dL (9-20); Calcium 8.3 mg/dL (8.4-10.2); Carbon Dioxide 25 mmol/L (22-30); Chloride 102 mmol/L (98-107); Glucose 88 mg/dL (74-99); Non-African American GFR(CKD) 15 (>60 ml/min/1.73 sqM); Potassium 4.2 mmol/L (3.5-5.1); Sodium 135 mmol/L (137-145)
[2021-07-30] MEDS: allopurinoL 100 MG TAB PO SCH (13:49)
--- NOTE | 2021-07-30 17:01 | P.PN ---
Subjective Patient is a 65-year-old male with multiple medical problems multiple comorbidities was recently discharged from the hospital after he was treated for volume or note from chronic gastritis function and the cardiorenal syndrome. Patient was discharged to rehab facility 2 days into rehab related patient patient went home and started having shortness of breath volume overload diffuse anasarca and pedal edema. Patient is found to be in significant volume or lower chest x-ray showed bilateral pleural effusion although this appears to have improved compared to last admission when he had thoracentesis. Patient has significant lab abnormalities including creatinine going up to around 10 potassium 6.2 very low magnesium of 0.9 nephrology was consulted. As per nephrology patient will lead hemodialysis, consult to vascular surgery was placed for hemodialysis catheter placement and patient will be subsequently started on hemodialysis. Patient does have advanced COPD uses about 5 L of oxygen. 07/28/2021 Patient is seen and evaluated and follow-up has received hemodialysis catheter and is receiving hemodialysis today. Kidney functions improving and patient reports to producing more urine. Current creatinine is 7.6 today potassium is 5 .5 and sodium is 139. Blood sugars have been more manageable and will continue current regimen. Patient continues on 5 L via nasal cannula which is chronic for him. Nephrology following closely and will continue with dialysis daily at this time. Patient is also maintained on IV Lasix and will continue. Patient denies chest pain, shortness of breath, or palpitations. Patient is afebrile. No nausea or vomiting noted and patient is tolerating diet. subjective: resume the care of the pt today 07/29/2021 This is a pleasant 65 years old male with stage IV chronic kidney disease presents with fatigue and worsening kidney function requiring hemodialysis which is a started during this admission after a catheter placed in the right groin. He is hemodynamically stable, he is on 5 L per minute of oxygen but saturating 98-99%, we will try to titrate his oxygen down. No much dyspnea or cough and while he is lying flat in bed but he feels very weak all over. His been having recurrent nausea vomiting, mainly worked first of this morning but he is fully awake with no headache. No abdominal pain. He is hemodynamically stable, hemoglobin 7.4 with evidence of chronic anemia, also he is on ferrous sulfate once daily at home. This currently on home dose of liquids 2.5 and IV Lasix 60 mg twice daily. Ultrasound of the abdomen showing no hydronephrosis or nephrolithiasis. And chest x-ray showed small right pleural effusion with atelectasis. Also patient has chronic left leg wound secondary to a fall about 3 months ago. Patient refused to take the dressing off. We consulted once care. Patient is on Zofran already, we added Phenergan. We ordered a KUB. Also ask for PT OT evaluation. WOUND TEAM CONSULT 07/30/2021 Patient awake alert, no much tachypnea but he stayed in bed most of the time, he still at baseline of 4 L/m of oxygen. However patient reports coughing a lot and making a lot of phlegm, he said he has been diagnosed with pneumonia 2 weeks ago. Actually chest x-ray from yesterday showing bilateral infiltrate, I reviewed the chest x-ray by myself and it looks worse compared to admission despite starting him on a new hemodialysis and receiving Lasix for his CHF. Also we checked his pro-calcitonin and it is elevated at 0.5 for which is consistent with infection with this constellation of CHF, chest x-ray findings and elevated pro-calcitonin. Most likely and high suspicion for hospital acquired pneumonia and patient is a started on Zosyn last night. We going to repeat chest x-ray tomorrow morning. Bladder scan show minimal urine, Flomax was discontinued. Wound care R following the patient for his left foot wound. Objective - Vital Signs Vital signs: Vital Signs Temp 98.5 F 07/30/21 14:00 Pulse 106 H 07/30/21 16:26 Resp 20 07/30/21 14:00 BP 126/69 07/30/21 14:00 Pulse Ox 98 07/30/21 16:18 Intake & Output 07/29/21 07/30/21 07/30/21 18:59 06:59 18:59 Output Total 2200 200 Balance -2200 -200 Output: Urine 200 200 Hemodialysis 2000 Other: Voiding Method Urinal Urinal Urinal - Exam -GENERAL: The patient is alert and oriented x3, not in any acute distress. Generally weak HEENT: Pupils are round and equally reacting to light. EOMI. No scleral icterus. No conjunctival pallor. Normocephalic, atraumatic. No pharyngeal erythema. No thyromegaly. CARDIOVASCULAR: S1 and S2 present. No murmurs, rubs, or gallops. PULMONARY: Chest is clear to auscultation, no wheezing or crackles. ABDOMEN: Soft, nontender, nondistended, normoactive bowel sounds. No palpable organomegaly. MUSCULOSKELETAL: No joint swelling or deformity. -EXTREMITIES: No cyanosis, clubbing, or pedal edema. Left leg wound with dressing. Right groin hemodialysis catheter is in place NEUROLOGICAL: Gross neurological examination did not reveal any focal deficits. SKIN: No rashes. no petechiae. - Labs CBC & Chem 7: 07/26/21 16:18 07/30/21 09:35 Labs: Abnormal Lab Results - Last 24 Hours (Table) 07/29/21 07/30/21 Range/Units 20:18 09:35 Sodium 135 L (137-145) mmol/L BUN 38 H (9-20) mg/dL Creatinine 4.01 H (0.66-1.25) mg/dL POC Glucose (mg/dL) 218 H (75-99) mg/dL Calcium 8.3 L (8.4-10.2) mg/dL Assessment and Plan Assessment: - Bilateral hospital acquired pneumonia is highly suspected - Acute kidney injury on stage IV CKD, started on edge D during this admission - acute diastolic congestive heart failure secondary to cardiorenal - anasarca secondary to cardiorenal syndrome as mentioned above. Hemodialysis daily per nephrology for now -Hyperkalemia secondary to acute renal failur, resolved -Hypomagnesemia magnesium will be replaced per Protocol -Chronic respiratory failure secondary to COPD , 5 L of oxygen at home -Hypertension -Hyperlipidemia -Hypothyroidism -History of recent fall and fracture to the left wrist with malunion noted -Paroxsymal atrial fibrillation presently rate controlled patient does have sick sinus syndrome history patient has a pacemaker -Type 2 diabetes mellitus Plan: This is a pleasant 65 years old male presents with acute kidney injury and CHF. Started on hemodialysis. Start Zosyn and check sputum culture. Repeat chest x-ray tomorrow morning. Continue with hemodialysis per nephrology team. Continue with IV Lasix. Continue with home dose Eliquis 2.5 mg. Continue with insulin and ISS. Consult wound care Labs and medication were reviewed.. Continue same treatment. Continue with symptomatic treatment. Resume home medication. Monitor lytes and vitals. DVT and GI prophylaxis. Further recommendation sas per clinical course of the patient DVT prophylaxis: Eliquis GI Prophylaxis: Ppi PT/OT: Recommended subacute rehab, social work faculty member consult Prognosis is guarded
--- NOTE | 2021-07-30 17:43 | P.PN ---
Subjective Patient is seen for follow-up for acute kidney injury and top of chronic kidney disease Patient has underlying CK D stage IV with recent worsening of his renal function. Patient has underlying chronic kidney disease with recent worsening of his renal function since May 2021. Creatinine increased from 1.4 on 05/24/[address] up to 3.1 on 07/05/2021. Patient had acute kidney injury during his hospitalization last month and serum creatinine on discharge was 3.0. Acute kidney injury was mostly cardiorenal. Patient was diuresed and discharged on torsemide. He was admitted to the hospital now with a creatinine of around 10.2. Patient was started on dialysis on 07/27/2021. Patient has had daily treatments. He also has underlying volume overload. Patient tolerated his treatment well. Overall feeling better. No obstruction noted on ultrasound. no complaints today Objective - Vital Signs Vital signs: Vital Signs Temp 98.5 F 07/30/21 14:00 Pulse 106 H 07/30/21 16:26 Resp 20 07/30/21 14:00 BP 126/69 07/30/21 14:00 Pulse Ox 98 07/30/21 16:18 Intake & Output 07/29/21 07/30/21 07/30/21 18:59 06:59 18:59 Output Total 2200 200 Balance -2200 -200 Output: Urine 200 200 Hemodialysis 2000 Other: Voiding Method Urinal Urinal Urinal - Exam Awake, comfortable, not in any acute distress Examination of the heart Examination of the lungs shows decreased breath sounds at the bases Examination lower extremity shows edema 1+ bilaterally [employer]MENT [employer]OR exam grossly intact Significant pain and limitation of movement on the left shoulder and left upper extremity - Labs CBC & Chem 7: 07/26/21 16:18 07/30/21 09:35 Labs: Abnormal Lab Results - Last 24 Hours (Table) 07/29/21 07/30/21 Range/Units 20:18 09:35 Sodium 135 L (137-145) mmol/L BUN 38 H (9-20) mg/dL Creatinine 4.01 H (0.66-1.25) mg/dL POC Glucose (mg/dL) 218 H (75-99) mg/dL Calcium 8.3 L (8.4-10.2) mg/dL Assessment and Plan Assessment: 1. Acute kidney injury most likely ATN, currently nonoliguric. However given the significantly elevated BUN/creatinine creatinine and volume overload with hyperkalemia, started on hemodialysis on 07/27/2021. No obstruction on u ltrasound. UA shows trace protein and moderate blood. Serologies ordered to rule out underlying GN. Mostly all workup negative except for slightly decreased C3 levels. 2. Chronic kidney disease NKF stage IIIB secondary to nephrosclerosis with previous creatinine as low as 1.4 in May 2021 but most recently staying as high as 3.1-3.0 on 07/07/2021 with episodes of acute kidney injury during his hospitalizations for CHF and pneumonia. 3. CHF exacerbation, diastolic 4. Volume overload 5. Hyperkalemia associated with acute kidney injury, no urine retention noted, improved post dialysis 6. Hypomagnesemia currently being replaced etiology diuretics 7. Paroxysmal A. fib with controlled ventricular response status post pacemaker Plan: Hemodialysis in a.m. Encourage increased oral intake Continue with IV Lasix Increase UF as tolerated Patient will likely need outpatient placement and continuation off renal replacement therapy as outpatient.
[2021-07-30] MEDS: METOPROLOL SUCCINATE (ER) 50 MG TAB.ER.24H PO SCH (21:45)
[2021-07-30] MEDS: INSULIN DETEMIR (LEVEMIR) 100 UNIT/ML SYR SQ SCH (21:45)
[2021-07-30] MEDS: PIPERACILLIN-TAZOBACTAM 3.375 GM in SODIUM CHLORIDE 0.9% 100 ML IVPB SCH (22:38)
[2021-07-31] MEDS: HYDROcodone/APAP 5-325MG 1 EACH TAB PO PRN ×2 (05:45→22:34)
[2021-07-31] MEDS: LEVOTHYROXINE 25 MCG TAB PO SCH (05:45)
--- NOTE | 2021-07-31 07:06 | XR ---
EXAMINATION TYPE: XR chest 1V DATE OF EXAM: 07/31/2021 6:35 AM COMPARISON:Chest radiograph from two days prior. TECHNIQUE: XR chest 1V Frontal view of the chest. CLINICAL INDICATION:Male, 65 years old with history of sob; FINDINGS: Lungs/Pleura: Similar multifocal airspace opacities. No evidence of pneumothorax or pleural effusion. Pulmonary vascularity: Unremarkable. Heart/mediastinum: Cardiomediastinal silhouette is unremarkable. Two lead cardiac conduction device o verlying the left hemithorax with lead tips projecting over the right ventricle and right atrium. Musculoskeletal: No acute osseous pathology. IMPRESSION: Similar multifocal airspace opacities. Correlate for congestive heart failure and/or diffuse airspace disease.
[2021-07-31] MEDS: ASCORBIC ACID 500 MG TAB PO SCH ×2 (07:14→20:55)
[2021-07-31] MEDS: FERROUS SULFATE 325 MG TAB PO SCH (07:14)
[2021-07-31] MEDS: PANTOPRAZOLE 40 MG TABLET PO SCH (07:14)
[2021-07-31] MEDS: MIDODRINE 5 MG TAB PO SCH ×3 (07:15→20:55)
[2021-07-31] MEDS: APIXABAN 2.5 MG TABLET PO SCH ×2 (07:15→20:55)
[2021-07-31] MEDS: CHOLECALCIFEROL 25 MCG (1000 IU) TABLET PO SCH (07:15)
[2021-07-31] MEDS: PIPERACILLIN-TAZOBACTAM 3.375 GM in SODIUM CHLORIDE 0.9% 100 ML IVPB SCH ×2 (07:16→20:56)
[2021-07-31] MEDS: INSULIN ASPART (NovoLOG) 100 UNIT/ML VIAL SQ SCH ×4 (07:17→20:55)
[2021-07-31] MEDS: BUDESONIDE 0.5 MG/2 ML NEBU INHALATION SCH ×2 (08:23→20:22)
[2021-07-31] MEDS: SYMBICORT 160-4.5 MCG INHALER INHALATION SCH ×2 (08:23→20:22)
[2021-07-31] MEDS: IPRATROPIUM-ALBUTEROL 3 ML NEB INHALATION SCH ×4 (08:23→20:22)
[2021-07-31] MEDS ORDERED: methylPREDNISolone SOD SUCCI 40 MG/ML 1 ML VIAL IV SCH (10:00)
[2021-07-31] MEDS: FUROSEMIDE 10 MG/ML 10 ML VIAL IV SCH ×2 (10:14→20:56)
--- NOTE | 2021-07-31 10:14 | P.PN ---
Subjective Progress Note Date: 07/31/21 Principal diagnosis: This is a 65-year-old male with chronic kidney disease stage IV, with creatinine of 3 earlier in 07/07/2021, worsening over the last few months and on admission his creatinine was 9.83 and 10.2 on 07/27/2021. He was started dialysis this hospitalization on 07/27/2021, with the groin Franki on the right side. He was admitted with shortness of breath and weakness. He is known with atrial fibrillation diabetes and COPD Currently he states his appetite is slightly better he looks very tired and weak and says he has not been able to sleep. His blood pressures are satisfactory 115 244 systolic heart rate in the 70s afebrile Urine output is 275 and 400 mL for the last 2 days He has been dialyzed since 07/27/2021 on a daily basis on this being his fifth dialysis. Objective - Vital Signs Vital signs: Vital Signs Temp 97.9 F 07/31/21 08:18 Pulse 76 07/31/21 08:18 Resp 18 07/31/21 09:23 BP 115/67 07/31/21 08:18 Pulse Ox 99 07/31/21 08:18 Intake & Output 07/30/21 07/31/21 07/31/21 18:59 06:59 18:59 Intake Total 180 Output Total 1000 Balance 180 -1000 Intake: Oral 180 Output: Hemodialysis 1000 Other: Voiding Method Urinal Urinal Urinal # Voids 3 4 On examination he looks weak and tired and somewhat. No facial asymmetry Lungs are clear to auscultation fair air entry bilaterally Heart sounds unremarkable for atrial fibrillation Abdomen soft nontender Extremity exam was trace edema Neurologically awake alert oriented but weak and tired - Labs CBC & Chem 7: 07/26/21 16:18 07/30/21 09:35 Labs: Abnormal Lab Results - Last 24 Hours (Table) 07/30/21 Range/Units 09:35 Sodium 135 L (137-145) mmol/L BUN 38 H (9-20) mg/dL Creatinine 4.01 H (0.66-1.25) mg/dL Calcium 8.3 L (8.4-10.2) mg/dL Assessment and Plan Assessment: Impression 1. 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 Started on dialysis 07/27/2021 with a Franki on the right groin dialysis #5 today 2. Severe weakness and tiredness 3. Atrial fibrillation with controlled heart rate and blood pressure reasonable 4. History of COPD 5. History of diabetes mellitus, trace proteinuria 6. Anemia hemoglobin 7.4, rule out iron deficiency. Patient is on darbepoetin 60 g every week. Recommendation 1. Will proceed with placement of a permacath. 2. He'll need some rehab and physical therapy that can be started here 3. Once she is stable cc is a peritoneal dialysis candidate 4. Check iron saturation
[2021-07-31 10:35] LABS: Glucose,Whole Blood 57 mg/dL (75-99)
[2021-07-31] MEDS: methylPREDNISolone SOD SUCCI 125 MG/2 ML VIAL IV SCH ×3 (10:39→22:36)
[2021-07-31 10:55] LABS: Glucose,Whole Blood 59 mg/dL (75-99)
[2021-07-31 11:12] LABS: Glucose,Whole Blood 74 mg/dL (75-99)
[2021-07-31 11:12] LABS: Glucose,Whole Blood 57 mg/dL (75-99)
[2021-07-31] MEDS: allopurinoL 100 MG TAB PO SCH (13:40)
[2021-07-31 16:09] LABS: % Iron Saturation 14.94 (15.00-50.00)
[2021-07-31 16:45] LABS: Glucose,Whole Blood 359 mg/dL (75-99)
[2021-07-31 20:28] LABS: Glucose,Whole Blood 361 mg/dL (75-99)
[2021-07-31] MEDS: INSULIN DETEMIR (LEVEMIR) 100 UNIT/ML SYR SQ SCH (20:54)
[2021-07-31] MEDS: METOPROLOL SUCCINATE (ER) 50 MG TAB.ER.24H PO SCH (20:55)
--- NOTE | 2021-07-31 21:43 | P.PN ---
Subjective Patient is a 65-year-old male with multiple medical problems multiple comorbidities was recently discharged from the hospital after he was treated for volume or note from chronic gastritis function and the cardiorenal syndrome. Patient was discharged to rehab facility 2 days into rehab related patient patient went home and started having shortness of breath volume overload diffuse anasarca and pedal edema. Patient is found to be in significant volume or lower chest x-ray showed bilateral pleural effusion although this appears to have improved compared to last admission when he had thoracentesis. Patient has significant lab abnormalities including creatinine going up to around 10 potassium 6.2 very low magnesium of 0.9 nephrology was consulted. As per nephrology patient will lead hemodialysis, consult to vascular surgery was placed for hemodialysis catheter placement and patient will be subsequently started on hemodialysis. Patient does have advanced COPD uses about 5 L of oxygen. 07/28/2021 Patient is seen and evaluated and follow-up has received hemodialysis catheter and is receiving hemodialysis today. Kidney functions improving and patient reports to producing more urine. Current creatinine is 7.6 today potassium is 5 .5 and sodium is 139. Blood sugars have been more manageable and will continue current regimen. Patient continues on 5 L via nasal cannula which is chronic for him. Nephrology following closely and will continue with dialysis daily at this time. Patient is also maintained on IV Lasix and will continue. Patient denies chest pain, shortness of breath, or palpitations. Patient is afebrile. No nausea or vomiting noted and patient is tolerating diet. subjective: resume the care of the pt today 07/29/2021 This is a pleasant 65 years old male with stage IV chronic kidney disease presents with fatigue and worsening kidney function requiring hemodialysis which is a started during this admission after a catheter placed in the right groin. He is hemodynamically stable, he is on 5 L per minute of oxygen but saturating 98-99%, we will try to titrate his oxygen down. No much dyspnea or cough and while he is lying flat in bed but he feels very weak all over. His been having recurrent nausea vomiting, mainly worked first of this morning but he is fully awake with no headache. No abdominal pain. He is hemodynamically stable, hemoglobin 7.4 with evidence of chronic anemia, also he is on ferrous sulfate once daily at home. This currently on home dose of liquids 2.5 and IV Lasix 60 mg twice daily. Ultrasound of the abdomen showing no hydronephrosis or nephrolithiasis. And chest x-ray showed small right pleural effusion with atelectasis. Also patient has chronic left leg wound secondary to a fall about 3 months ago. Patient refused to take the dressing off. We consulted once care. Patient is on Zofran already, we added Phenergan. We ordered a KUB. Also ask for PT OT evaluation. WOUND TEAM CONSULT 07/30/2021 Patient awake alert, no much tachypnea but he stayed in bed most of the time, he still at baseline of 4 L/m of oxygen. However patient reports coughing a lot and making a lot of phlegm, he said he has been diagnosed with pneumonia 2 weeks ago. Actually chest x-ray from yesterday showing bilateral infiltrate, I reviewed the chest x-ray by myself and it looks worse compared to admission despite starting him on a new hemodialysis and receiving Lasix for his CHF. Also we checked his pro-calcitonin and it is elevated at 0.5 for which is consistent with infection with this constellation of CHF, chest x-ray findings and elevated pro-calcitonin. Most likely and high suspicion for hospital acquired pneumonia and patient is a started on Zosyn last night. We going to repeat chest x-ray tomorrow morning. Bladder scan show minimal urine, Flomax was discontinued. Wound care R following the patient for his left foot wound. 07/31/2021 Patient seen in bed most of the time, physical therapy recommended rehab, I talked to him today about this recommendation and he is refusing now. He still on 4 L oxygen nasal cannula which looks like he is this is his baseline however he has coarse crepitation looks like it comes from secretion with decreased air entry on both sides, patient confirms to me he has history of COPD. However I would recommend he follow up with a cv tech as an outpatient. Repeat chest x-ray today showing no worsening infiltrate however it shows Similar multifocal airspace opacities. Correlate for congestive heart failure and/or diffuse airspace disease in the meantime we will keep him on Zosyn and check a pro-calcitonin tomorrow, if improvement we may consider oral antibiotic. However started on Solu-Medrol 60 mg 3 times a day today. He is kept on IV Lasix and hemodialysis I discussed the case with nephrology team and they recommended the permacath prior to discharge, discussed with bed side nurse to inform surgical vascular team. Workup showing anemia of chronic disease and he was started on arenasept by statistics manager. Objective - Vital Signs Vital signs: Vital Signs Temp 97.9 F 07/31/21 08:18 Pulse 102 H 07/31/21 11:54 Resp 16 07/31/21 10:53 BP 154/76 07/31/21 10:53 Pulse Ox 100 07/31/21 10:53 Intake & Output 07/30/21 07/31/21 07/31/21 18:59 06:59 18:59 Intake Total 180 Output Total 1000 Balance 180 -1000 Intake: Oral 180 Output: Hemodialysis 1000 Other: Voiding Method Urinal Urinal Urinal # Voids 3 4 - Exam -GENERAL: The patient is alert and oriented x3, not in any acute distress. Generally weak HEENT: Pupils are round and equally reacting to light. EOMI. No scleral icterus. No conjunctival pallor. Normocephalic, atraumatic. No pharyngeal erythema. No thyromegaly. CARDIOVASCULAR: S1 and S2 present. No murmurs, rubs, or gallops. PULMONARY: Chest is clear to auscultation, no wheezing or crackles. ABDOMEN: Soft, nontender, nondistended, normoactive bowel sounds. No palpable organomegaly. MUSCULOSKELETAL: No joint swelling or deformity. -EXTREMITIES: No cyanosis, clubbing, or pedal edema. Left leg wound with d ressing. Right groin hemodialysis catheter is in place NEUROLOGICAL: Gross neurological examination did not reveal any focal deficits. SKIN: No rashes. no petechiae. - Labs CBC & Chem 7: 07/26/21 16:18 07/30/21 09:35 Labs: Abnormal Lab Results - Last 24 Hours (Table) 07/31/21 07/31/21 07/31/21 Range/Units 10:32 10:53 11:09 POC Glucose (mg/dL) 57 L 59 L 57 L (75-99) mg/dL 07/31/21 Range/Units 11:11 POC Glucose (mg/dL) 74 L (75-99) mg/dL Assessment and Plan Assessment: - Bilateral hospital acquired pneumonia is highly suspected - Acute kidney injury on stage IV CKD, started on edge D during this admission - acute diastolic congestive heart failure secondary to cardiorenal - anasarca secondary to cardiorenal syndrome as mentioned above. Hemodialysis daily per nephrology for now - Anemia of chronic disease -Hypomagnesemia magnesium will be replaced per Protocol -Chronic respiratory failure secondary to COPD , 5 L of oxygen at home. There i s evidence of acute exacerbation -Possible pneumonia, hospital-acquired with elevated pro-calcitonin 0.5 -Hypertension -Hyperlipidemia -Hypothyroidism -History of recent fall and fracture to the left wrist with malunion noted -Paroxsymal atrial fibrillation presently rate controlled patient does have sick sinus syndrome history patient has a pacemaker -Type 2 diabetes mellitus Plan: This is a pleasant 65 years old male presents with acute kidney injury and CHF. Started on hemodialysis. Start Zosyn and check sputum culture. Repeat pro-calcitonin Continue with hemodialysis per nephrology team. Patient will need permacath, vascular surgery paged Continue with IV Lasix. Continue with home dose Eliquis 2.5 mg. Continue with insulin and ISS. Consult wound care Labs and medication were reviewed.. Continue same treatment. Continue with symptomatic treatment. Resume home medication. Monitor lytes and vitals. DVT and GI prophylaxis. Further recommendation sas per clinical course of the patient DVT prophylaxis: Eliquis GI Prophylaxis: Ppi PT/OT: Recommended subacute rehab, socially responsible investment adviser consult Prognosis is guarded
[2021-08-01] MEDS: MELATONIN 5 MG TABLET PO PRN (03:36)
[2021-08-01] MEDS: LEVOTHYROXINE 25 MCG TAB PO SCH (05:31)
[2021-08-01 07:02] LABS: Glucose,Whole Blood 343 mg/dL (75-99)
[2021-08-01] MEDS: BUDESONIDE 0.5 MG/2 ML NEBU INHALATION SCH ×2 (07:47→19:05)
[2021-08-01] MEDS: SYMBICORT 160-4.5 MCG INHALER INHALATION SCH ×2 (07:47→19:05)
[2021-08-01] MEDS: IPRATROPIUM-ALBUTEROL 3 ML NEB INHALATION SCH ×4 (07:48→19:05)
[2021-08-01] MEDS: methylPREDNISolone SOD SUCCI 125 MG/2 ML VIAL IV SCH ×2 (08:24→15:47)
[2021-08-01] MEDS: PIPERACILLIN-TAZOBACTAM 3.375 GM in SODIUM CHLORIDE 0.9% 100 ML IVPB SCH (08:24)
[2021-08-01] MEDS: FUROSEMIDE 10 MG/ML 10 ML VIAL IV SCH ×2 (08:24→21:34)
[2021-08-01] MEDS: ASCORBIC ACID 500 MG TAB PO SCH ×2 (08:25→21:32)
[2021-08-01] MEDS: MIDODRINE 5 MG TAB PO SCH ×3 (08:25→21:32)
[2021-08-01] MEDS: APIXABAN 2.5 MG TABLET PO SCH ×2 (08:25→18:41)
[2021-08-01] MEDS: FERROUS SULFATE 325 MG TAB PO SCH (08:25)
[2021-08-01] MEDS: INSULIN ASPART (NovoLOG) 100 UNIT/ML VIAL SQ SCH ×4 (08:25→21:36)
[2021-08-01] MEDS: CHOLECALCIFEROL 25 MCG (1000 IU) TABLET PO SCH (08:25)
[2021-08-01] MEDS: PANTOPRAZOLE 40 MG TABLET PO SCH (08:25)
[2021-08-01] MEDS: HYDROcodone/APAP 5-325MG 1 EACH TAB PO PRN ×2 (08:56→21:32)
--- NOTE | 2021-08-01 09:10 | P.PN ---
Subjective Progress Note Date: 08/01/21 Principal diagnosis: This is a 65-year-old male with chronic kidney disease stage IV, with creatinine of 3 earlier in 07/07/2021, worsening over the last few months and on admission his creatinine was 9.83 and 10.2 on 07/27/2021. He was admitted with shortness of breath and weakness. He was started dialysis this hospitalization on 07/27/2021, with the groin Franki on the right side. He is known with atrial fibrillation diabetes and COPD Currently he states his appetite is better and she feels much better this morning. Vital signs are stable blood pressure in the 118-125/73 heart rate in the 60s to 90s. He has been dialyzed since 07/27/2021 on a daily basis and was dialyzed yesterday Objective - Vital Signs Vital signs: Vital Signs Temp 98.6 F 08/01/21 07:57 Pulse 68 08/01/21 07:57 Resp 17 08/01/21 07:57 BP 125/73 08/01/21 07:57 Pulse Ox 99 08/01/21 07:57 Intake & Output 07/31/21 08/01/21 08/01/21 18:59 06:59 18:59 Output Total 1300 Balance -1300 Output: Urine 300 Hemodialysis 1000 Other: Voiding Method Urinal Urinal Urinal Awake alert oriented comfortable HEENT exam no JVP Lungs are significant for bilateral coarse crackles at bases not clear but cough good air entry bilaterally Heart sounds, atrial fibrillation otherwise unremarkable for any murmur rub gallop Abdomen soft nontender Extremity exam was trace edema Neurologically awake alert oriented - Labs CBC & Chem 7: 07/26/21 16:18 07/30/21 09:35 Labs: Abnormal Lab Results - Last 24 Hours (Table) 07/31/21 07/31/21 07/31/21 Range/Units 10:32 10:40 10:53 POC Glucose (mg/dL) 57 L 59 L (75-99) mg/dL Iron 25 L (65-175) ug/dL TIBC 168 L (228-460) ug/dL % Saturation 14.94 L (15.00-50.00) Transferrin 120.0 L (204.0-354.0) mg/dL 07/31/21 07/31/21 07/31/21 Range/Units 11:09 11:11 16:43 POC Glucose (mg/dL) 57 L 74 L 359 H (75-99) mg/dL Iron (65-175) ug/dL TIBC (228-460) ug/dL % Saturation (15.00-50.00) Transferrin (204.0-354.0) mg/dL 07/31/21 08/01/21 Range/Units 20:27 07:00 POC Glucose (mg/dL) 361 H 343 H (75-99) mg/dL Iron (65-175) ug/dL TIBC (228-460) ug/dL % Saturation (15.00-50.00) Transferrin (204.0-354.0) mg/dL Assessment and Plan Assessment: Impression 1. 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 Started on dialysis 07/27/2021 with a Franki on the right groin dialysis #5 yesterday 2. Severe weakness and tiredness, slightly better 3. Atrial fibrillation with controlled heart rate and blood pressure reasonable 4. History of COPD, with bilateral crackles 5. History of diabetes mellitus, trace proteinuria 6. Anemia hemoglobin 7.4,Patient is on darbepoetin 60 g every week. 7. Iron deficiency saturation 14% on 07/31/2021 Recommendation 1. Will proceed with placement of a permacath. 2. He'll need some rehab and physical therapy that can be started here 3. Once she is stable we will assess him for peritoneal dialysis 4. IV illicit 125 mg daily for 3 doses 5. Hemodialysis placement as an outpatient
[2021-08-01] MEDS ORDERED: SODIUM FERRIC GLUCONAT-SUCROSE 125 MG in SODIUM CHLORIDE 0.9% 100 ML IVPB SCH (09:15)
[2021-08-01] MEDS: SODIUM FERRIC GLUCONAT-SUCROSE 125 MG in SODIUM CHLORIDE 0.9% 100 ML IVPB SCH (10:52)
[2021-08-01] MEDS: ONDANSETRON 4 MG/2 ML VIAL IVP PRN (11:53)
[2021-08-01 14:53] LABS: Basophils # (A) 0 X 10*3/uL (0.00-0.10); Basophils % (A) 0 %; Eosinophils # (A) 0 X 10*3/uL (0.04-0.35); Eosinophils % (A) 0 %; HCT 20.8 % (39.6-50.0); HGB 5.9 g/dL (13.0-17.0); Immature Grans, Automated 0.3 %; Lymphocytes # (A) 0.15 X 10*3/uL (0.90-5.00); Lymphocytes % (A) 4.8 %; MCH 27.8 pg (27.0-32.0); MCHC 28.4 g/dL (32.0-37.0); MCV 98.1 fL (80.0-97.0); Mean Platelet Volume 10.8 fL (9.5-12.2); Monocytes # (A) 0.09 X 10*3/uL (0.20-1.00); Monocytes % (A) 2.9 %; NRBC Per 100 WBC 0 /100 WBCS (0.0-0.0); Neutrophils # (A) 2.86 X 10*3/uL (1.80-7.70); Platelet Count 216 X 10*3/uL (140-440); RBC 2.12 X 10*6/uL (4.40-5.60); RDW 16.7 % (11.5-14.5); WBC 3.11 X 10*3/uL (4.50-10.00)
[2021-08-01 14:54] LABS: RBC Morphology NORMAL
[2021-08-01] MEDS: allopurinoL 100 MG TAB PO SCH (15:47)
[2021-08-01 15:54] LABS: Anisocytosis Slight; HCT 23.2 % (39.0-53.0); Hypochromasia Marked; MCH 29.3 pg (25.0-35.0); MCHC 29.1 g/dL (31.0-37.0); MCV 100.6 fL (80.0-100.0); Macrocytosis Slight; Mean Platelet Volume 8.6; Platelet Count 263 k/uL (150-450); RBC 2.31 m/uL (4.30-5.90); RDW 16.6 % (11.5-15.5); WBC 5.7 k/uL (3.8-10.6)
[2021-08-01 16:09] LABS: HGB 6.8 gm/dL (13.0-17.5)
[2021-08-01 16:52] LABS: Glucose,Whole Blood 335 mg/dL (75-99)
--- NOTE | 2021-08-01 18:42 | P.PN ---
Subjective Patient is a 65-year-old male with multiple medical problems multiple comorbidities was recently discharged from the hospital after he was treated for volume or note from chronic gastritis function and the cardiorenal syndrome. Patient was discharged to rehab facility 2 days into rehab related patient patient went home and started having shortness of breath volume overload diffuse anasarca and pedal edema. Patient is found to be in significant volume or lower chest x-ray showed bilateral pleural effusion although this appears to have improved compared to last admission when he had thoracentesis. Patient has significant lab abnormalities including creatinine going up to around 10 potassium 6.2 very low magnesium of 0.9 nephrology was consulted. As per nephrology patient will lead hemodialysis, consult to vascular surgery was placed for hemodialysis catheter placement and patient will be subsequently started on hemodialysis. Patient does have advanced COPD uses about 5 L of oxygen. 07/28/2021 Patient is seen and evaluated and follow-up has received hemodialysis catheter and is receiving hemodialysis today. Kidney functions improving and patient reports to producing more urine. Current creatinine is 7.6 today potassium is 5 .5 and sodium is 139. Blood sugars have been more manageable and will continue current regimen. Patient continues on 5 L via nasal cannula which is chronic for him. Nephrology following closely and will continue with dialysis daily at this time. Patient is also maintained on IV Lasix and will continue. Patient denies chest pain, shortness of breath, or palpitations. Patient is afebrile. No nausea or vomiting noted and patient is tolerating diet. subjective: resume the care of the pt today 07/29/2021 This is a pleasant 65 years old male with stage IV chronic kidney disease presents with fatigue and worsening kidney function requiring hemodialysis which is a started during this admission after a catheter placed in the right groin. He is hemodynamically stable, he is on 5 L per minute of oxygen but saturating 98-99%, we will try to titrate his oxygen down. No much dyspnea or cough and while he is lying flat in bed but he feels very weak all over. His been having recurrent nausea vomiting, mainly worked first of this morning but he is fully awake with no headache. No abdominal pain. He is hemodynamically stable, hemoglobin 7.4 with evidence of chronic anemia, also he is on ferrous sulfate once daily at home. This currently on home dose of liquids 2.5 and IV Lasix 60 mg twice daily. Ultrasound of the abdomen showing no hydronephrosis or nephrolithiasis. And chest x-ray showed small right pleural effusion with atelectasis. Also patient has chronic left leg wound secondary to a fall about 3 months ago. Patient refused to take the dressing off. We consulted once care. Patient is on Zofran already, we added Phenergan. We ordered a KUB. Also ask for PT OT evaluation. WOUND TEAM CONSULT 07/30/2021 Patient awake alert, no much tachypnea but he stayed in bed most of the time, he still at baseline of 4 L/m of oxygen. However patient reports coughing a lot and making a lot of phlegm, he said he has been diagnosed with pneumonia 2 weeks ago. Actually chest x-ray from yesterday showing bilateral infiltrate, I reviewed the chest x-ray by myself and it looks worse compared to admission despite starting him on a new hemodialysis and receiving Lasix for his CHF. Also we checked his pro-calcitonin and it is elevated at 0.5 for which is consistent with infection with this constellation of CHF, chest x-ray findings and elevated pro-calcitonin. Most likely and high suspicion for hospital acquired pneumonia and patient is a started on Zosyn last night. We going to repeat chest x-ray tomorrow morning. Bladder scan show minimal urine, Flomax was discontinued. Wound care R following the patient for his left foot wound. 07/31/2021 Patient seen in bed most of the time, physical therapy recommended rehab, I talked to him today about this recommendation and he is refusing now. He still on 4 L oxygen nasal cannula which looks like he is this is his baseline however he has coarse crepitation looks like it comes from secretion with decreased air entry on both sides, patient confirms to me he has history of COPD. However I would recommend he follow up with a student life vice president as an outpatient. Repeat chest x-ray today showing no worsening infiltrate however it shows Similar multifocal airspace opacities. Correlate for congestive heart failure and/or diffuse airspace disease in the meantime we will keep him on Zosyn and check a pro-calcitonin tomorrow, if improvement we may consider oral antibiotic. However started on Solu-Medrol 60 mg 3 times a day today. He is kept on IV Lasix and hemodialysis I discussed the case with nephrology team and they recommended the permacath prior to discharge, discussed with bed side nurse to inform surgical vascular team. Workup showing anemia of chronic disease and he was started on arenasept by melt house supervisor. 08/01/2021 Patient clinically is doing well generally, he is breathing quietly, he is tolerating diet well, no bowel movement today Nephrology team on the case and plan for him to get the permacath by vascular surgery team hopefully tomorrow. Also his evidence of COPD exacerbation which is improving therefore Solu-Medrol our to 40 mg twice a day. Pro-calcitonin still elevated 0.68, currently on Zosyn, sputum cultures pending. However patient only having cough and phlegm which is pending as above. Saturation is 4-5 L/m which is his baseline. Rehab is recommended but patient was reluctant so far. Objective - Vital Signs Vital signs: Vital Signs Temp 98.6 F 08/01/21 07:57 Pulse 68 08/01/21 07:57 Resp 17 08/01/21 07:57 BP 125/73 08/01/21 07:57 Pulse Ox 99 08/01/21 07:57 Intake & Output 07/31/21 08/01/21 08/01/21 18:59 06:59 18:59 Output Total 1300 Balance -1300 Output: Urine 300 Hemodialysis 1000 Other: Voiding Method Urinal Urinal Urinal - Exam -GENERAL: The patient is alert and oriented x3, not in any acute distress. Generally weak HEENT: Pupils are round and equally reacting to light. EOMI. No scleral icterus. No conjunctival pallor. Normocephalic, atraumatic. No pharyngeal erythema. No thyromegaly. CARDIOVASCULAR: S1 and S2 present. No murmurs, rubs, or gallops. PULMONARY: Chest is clear to auscultation, no wheezing or crackles. ABDOMEN: Soft, nontender, nondistended, normoactive bowel sounds. No palpable organomegaly. MUSCULOSKELETAL: No joint swelling or deformity. -EXTREMITIES: No cyanosis, clubbing, or pedal edema. Left leg wound with dressing. Right groin hemodialysis catheter is in place NEUROLOGICAL: Gross neurological examination did not reveal any focal deficits. SKIN: No rashes. no petechiae. - Labs CBC & Chem 7: 08/01/21 15:39 07/30/21 09:35 Labs: Abnormal Lab Results - Last 24 Hours (Table) 07/31/21 07/31/21 07/31/21 Range/Units 10:40 16:43 20:27 POC Glucose (mg/dL) 359 H 361 H (75-99) mg/dL Iron 25 L (65-175) ug/dL TIBC 168 L (228-460) ug/dL % Saturation 14.94 L (15.00-50.00) Transferrin 120.0 L (204.0-354.0) mg/dL Procalcitonin (0.02-0.09) ng/mL 08/01/21 08/01/21 Range/Units 05:31 07:00 POC Glucose (mg/dL) 343 H (75-99) mg/dL Iron (65-175) ug/dL TIBC (228-460) ug/dL % Saturation (15.00-50.00) Transferrin (204.0-354.0) mg/dL Procalcitonin 0.68 H (0.02-0.09) ng/mL Assessment and Plan Assessment: - Bilateral hospital acquired pneumonia is highly suspected - Acute kidney injury on stage IV CKD, started on edge D during this admission - acute diastolic congestive heart failure secondary to cardiorenal - anasarca secondary to cardiorenal syndrome as mentioned above. Hemodialysis daily per nephrology for now - Anemia of chronic disease -Hypomagnesemia magnesium will be replaced per Protocol -Chronic respiratory failure secondary to COPD , 5 L of oxygen at home. There is evidence of acute exacerbation -Possible pneumonia, hospital-acquired with elevated pro-calcitonin 0.5 -Hypertension -Hyperlipidemia -Hypothyroidism -History of recent fall and fracture to the left wrist with malunion noted -Paroxsymal atrial fibrillation presently rate controlled patient does have sick sinus syndrome history patient has a pacemaker -Type 2 diabetes mellitus Plan: This is a pleasant 65 years old male presents with acute kidney injury and CHF. Started on hemodialysis. Continue with Zosyn and check sputum culture. Continue with hemodialysis per nephrology team. Patient will need permacath, vascular surgery paged Continue with Lasix. Continue with home dose Eliquis 2.5 mg. Continue with insulin and ISS. Consult wound care Labs and medication were reviewed.. Continue same treatment. Continue with symptomatic treatment. Resume home medication. Monitor lytes and vitals. DVT and GI prophylaxis. Further recommendation sas per clinical course of the patient DVT prophylaxis: Eliquis GI Prophylaxis: Ppi PT/OT: Recommended subacute rehab, renal social worker consult Prognosis is guarded
[2021-08-01 20:19] LABS: Glucose,Whole Blood 303 mg/dL (75-99)
[2021-08-01] MEDS: METOPROLOL SUCCINATE (ER) 50 MG TAB.ER.24H PO SCH (21:33)
[2021-08-01] MEDS: methylPREDNISolone SOD SUCCI 40 MG/ML 1 ML VIAL IV SCH (21:35)
[2021-08-01] MEDS: INSULIN DETEMIR (LEVEMIR) 100 UNIT/ML SYR SQ SCH (21:37)
[2021-08-01] MEDS: DARBEPOETIN ALFA 60 MCG/0.3 ML SYRINGE SQ SCH (22:30)
[2021-08-02] MEDS: MELATONIN 5 MG TABLET PO PRN ×2 (01:48→20:21)
[2021-08-02] MEDS: HYDROcodone/APAP 5-325MG 1 EACH TAB PO PRN ×2 (05:36→17:52)
[2021-08-02] MEDS: LEVOTHYROXINE 25 MCG TAB PO SCH (05:36)
[2021-08-02 06:52] LABS: Glucose,Whole Blood 294 mg/dL (75-99)
--- NOTE | 2021-08-02 07:57 | XR ---
EXAMINATION TYPE: XR chest 1V DATE OF EXAM: 08/02/2021 COMPARISON: Chest x-ray 07/31/2021 HISTORY: Shortness of breath TECHNIQUE: Single frontal view of the chest is obtained. FINDINGS: Apical pleural thickening persists on the right. Generator is present with the leads in th e right atrium and ventricle as on prior, heart remains enlarged. Aorta is dense. Bibasilar increased attenuation is present, there is pleural thickening bilaterally. Interstitium is increased. No evide nt pneumothorax. Question airspace disease in the left mid lung. There is groundglass opacity. Blunti ng of the costophrenic angles is stable. IMPRESSION: Findings are similar to prior exam. There may be interstitial edema and congestive heart failure, pneumonia, interstitial lung disease, difficult to exclude pleural effusion
[2021-08-02] MEDS: FERROUS SULFATE 325 MG TAB PO SCH (08:06)
[2021-08-02] MEDS: MIDODRINE 5 MG TAB PO SCH ×2 (08:06→14:56)
[2021-08-02] MEDS: ASCORBIC ACID 500 MG TAB PO SCH ×2 (08:06→20:21)
[2021-08-02] MEDS: CHOLECALCIFEROL 25 MCG (1000 IU) TABLET PO SCH (08:06)
[2021-08-02] MEDS: PANTOPRAZOLE 40 MG TABLET PO SCH (08:06)
[2021-08-02] MEDS: INSULIN ASPART (NovoLOG) 100 UNIT/ML VIAL SQ SCH ×4 (08:07→21:47)
[2021-08-02 08:08] LABS: African American GFR (CKD) 13 (>60 ml/min/1.73 sqM); Anion Gap 8 mmol/L; Blood Urea Nitrogen 54 mg/dL (9-20); Calcium 8.5 mg/dL (8.4-10.2); Carbon Dioxide 25 mmol/L (22-30); Chloride 100 mmol/L (98-107); Glucose 243 mg/dL (74-99); Magnesium 1.5 mg/dL (1.6-2.3); Non-African American GFR(CKD) 11 (>60 ml/min/1.73 sqM); Phosphorus 5.1 mg/dL (2.5-4.5); Potassium 4.6 mmol/L (3.5-5.1); Sodium 133 mmol/L (137-145)
[2021-08-02] MEDS: methylPREDNISolone SOD SUCCI 40 MG/ML 1 ML VIAL IV SCH (08:08)
[2021-08-02] MEDS: FUROSEMIDE 10 MG/ML 10 ML VIAL IV SCH ×2 (08:08→20:21)
[2021-08-02] MEDS: SODIUM FERRIC GLUCONAT-SUCROSE 125 MG in SODIUM CHLORIDE 0.9% 100 ML IVPB SCH (08:09)
[2021-08-02] MEDS: IPRATROPIUM-ALBUTEROL 3 ML NEB INHALATION SCH ×4 (09:16→19:42)
[2021-08-02] MEDS: BUDESONIDE 0.5 MG/2 ML NEBU INHALATION SCH ×2 (09:16→19:42)
[2021-08-02] MEDS: SYMBICORT 160-4.5 MCG INHALER INHALATION SCH ×2 (09:19→19:42)
[2021-08-02 10:20] LABS: HCT 19.8 % (39.6-50.0); HGB 5.7 g/dL (13.0-17.0); MCH 28.4 pg (27.0-32.0); MCHC 28.8 g/dL (32.0-37.0); MCV 98.5 fL (80.0-97.0); NRBC Per 100 WBC 0 /100 WBCS (0.0-0.0); Platelet Count 280 X 10*3/uL (140-440); RBC 2.01 X 10*6/uL (4.40-5.60); RDW 16.5 % (11.5-14.5); WBC 8.38 X 10*3/uL (4.50-10.00)
--- NOTE | 2021-08-02 11:05 | P.PN ---
Subjective Patient is seen in follow-up for acute kidney injury on chronic kidney disease, started on hemodialysis since admission. Tolerating dialysis well. Mentation improved from admission. Denies chest pain or shortness of breath. No active bleeding. Hemoglobin 5.7 today. Vital signs are stable. General: Awake. HEENT: Head exam is unremarkable. LUNGS: Breath sounds decreased. HEART: Rate and Rhythm are regular. ABDOMEN: Soft, no distention. EXTREMITITES: No edema. Objective - Vital Signs Vital signs: Vital Signs Temp 98.3 F 08/02/21 08:00 Pulse 76 08/02/21 09:29 Resp 16 08/02/21 01:19 BP 134/76 08/02/21 08:00 Pulse Ox 97 08/02/21 09:19 Intake & Output 08/01/21 08/02/21 08/02/21 18:59 06:59 18:59 Intake Total 100 Output Total 150 Balance 100 -150 Intake: Intake, IV Titration 100 Amount Piperacillin-Tazobactam 3 100 .375 gm In Sodium Chloride 0.9% 100 ml @ 25 mls/hr IVPB Q12HR [facility] Rx #:[id number] Output: Urine 150 Other: Voiding Method Urinal Urinal # Voids 4 2 # Bowel Movements 1 2 - Labs CBC & Chem 7: 08/02/21 05:25 08/02/21 05:25 Labs: Abnormal Lab Results - Last 24 Hours (Table) 08/01/21 08/01/21 08/01/21 Range/Units 05:31 05:31 15:39 WBC 3.11 L (4.50-10.00) X 10*3/uL RBC 2.12 L 2.31 L (4.40-5.60) X 10*6/uL Hgb 5.9 L* 6.8 L* (13.0-17.0) g/dL Hct 20.8 L 23.2 L (39.6-50.0) % MCV 98.1 H 100.6 H (80.0-97.0) fL MCHC 28.4 L 29.1 L (32.0-37.0) g/dL RDW 16.7 H 16.6 H (11.5-14.5) % Lymphocytes # 0.15 L (0.90-5.00) X 10*3/uL Monocytes # 0.09 L (0.20-1.00) X 10*3/uL Eosinophils # 0 L (0.04-0.35) X 10*3/uL Sodium (137-145) mmol/L BUN (9-20) mg/dL Creatinine (0.66-1.25) mg/dL Glucose (74-99) mg/dL POC Glucose (mg/dL) (75-99) mg/dL Phosphorus (2.5-4.5) mg/dL Magnesium (1.6-2.3) mg/dL Procalcitonin 0.68 H (0.02-0.09) ng/mL 08/01/21 08/01/21 08/02/21 Range/Units 16:50 20:18 05:25 WBC (4.50-10.00) X 10*3/uL RBC 2.01 L (4.40-5.60) X 10*6/uL Hgb 5.7 L* (13.0-17.0) g/dL Hct 19.8 L* (39.6-50.0) % MCV 98.5 H (80.0-97.0) fL MCHC 28.8 L (32.0-37.0) g/dL RDW 16.5 H (11.5-14.5) % Lymphocytes # (0.90-5.00) X 10*3/uL Monocytes # (0.20-1.00) X 10*3/uL Eosinophils # (0.04-0.35) X 10*3/uL Sodium (137-145) mmol/L BUN (9-20) mg/dL Creatinine (0.66-1.25) mg/dL Glucose (74-99) mg/dL POC Glucose (mg/dL) 335 H 303 H (75-99) mg/dL Phosphorus (2.5-4.5) mg/dL Magnesium (1.6-2.3) mg/dL Procalcitonin (0.02-0.09) ng/mL 08/02/21 08/02/21 Range/Units 05:25 06:50 WBC (4.50-10.00) X 10*3/uL RBC (4.40-5.60) X 10*6/uL Hgb (13.0-17.0) g/dL Hct (39.6-50.0) % MCV (80.0-97.0) fL MCHC (32.0-37.0) g/dL RDW (11.5-14.5) % Lymphocytes # (0.90-5.00) X 10*3/uL Monocytes # (0.20-1.00) X 10*3/uL Eosinophils # (0.04-0.35) X 10*3/uL Sodium 133 L (137-145) mmol/L BUN 54 H (9-20) mg/dL Creatinine 5.10 H (0.66-1.25) mg/dL Glucose 243 H (74-99) mg/dL POC Glucose (mg/dL) 294 H (75-99) mg/dL Phosphorus 5.1 H (2.5-4.5) mg/dL Magnesium 1.5 L (1.6-2.3) mg/dL Procalcitonin (0.02-0.09) ng/mL Microbiology - Last 24 Hours (Table) 08/01/21 11:30 Sputum Culture - Preliminary Sputum Assessment and Plan Plan: Assessment: 1. Acute kidney injury on chronic kidney disease stage IV, started on hemodialysis on 07/27/2021.. Scheduled for permacath placement today. 2. Chronic kidney disease stage IV secondary to diabetic kidney disease and cardiorenal syndrome. Serologies negative except for mildly low C3 level. Patient is not a candidate for renal biopsy due to advanced renal failure. 3. Acute blood loss anemia. On Aranesp. Receiving IV iron. No active bleeding. 4. Diabetes mellitus. 5. A. fib. Plan: Scheduled for permacath placement today. Seen while undergoing hemodialysis. Next treatment Monday. Transfuse 1 unit of blood for dialysis. I will give him a dose of IV DDAVP. Further management of anemia per primary team. Outpatient dialysis being set up by case management.
[2021-08-02] MEDS ORDERED: Magnesium Replacement Protocol 1 EACH MISC MISCELLANE PRN (11:15)
--- NOTE | 2021-08-02 11:21 | P.PN ---
Subjective Patient is a 65-year-old male with multiple medical problems multiple comorbidities was recently discharged from the hospital after he was treated for volume or note from chronic gastritis function and the cardiorenal syndrome. Patient was discharged to rehab facility 2 days into rehab related patient patient went home and started having shortness of breath volume overload diffuse anasarca and pedal edema. Patient is found to be in significant volume or lower chest x-ray showed bilateral pleural effusion although this appears to have improved compared to last admission when he had thoracentesis. Patient has significant lab abnormalities including creatinine going up to around 10 potassium 6.2 very low magnesium of 0.9 nephrology was consulted. As per nephrology patient will lead hemodialysis, consult to vascular surgery was placed for hemodialysis catheter placement and patient will be subsequently started on hemodialysis. Patient does have advanced COPD uses about 5 L of oxygen. 07/28/2021 Patient is seen and evaluated and follow-up has received hemodialysis catheter and is receiving hemodialysis today. Kidney functions improving and patient reports to producing more urine. Current creatinine is 7.6 today potassium is 5 .5 and sodium is 139. Blood sugars have been more manageable and will continue current regimen. Patient continues on 5 L via nasal cannula which is chronic for him. Nephrology following closely and will continue with dialysis daily at this time. Patient is also maintained on IV Lasix and will continue. Patient denies chest pain, shortness of breath, or palpitations. Patient is afebrile. No nausea or vomiting noted and patient is tolerating diet. subjective: resume the care of the pt today 07/29/2021 This is a pleasant 65 years old male with stage IV chronic kidney disease presents with fatigue and worsening kidney function requiring hemodialysis which is a started during this admission after a catheter placed in the right groin. He is hemodynamically stable, he is on 5 L per minute of oxygen but saturating 98-99%, we will try to titrate his oxygen down. No much dyspnea or cough and while he is lying flat in bed but he feels very weak all over. His been having recurrent nausea vomiting, mainly worked first of this morning but he is fully awake with no headache. No abdominal pain. He is hemodynamically stable, hemoglobin 7.4 with evidence of chronic anemia, also he is on ferrous sulfate once daily at home. This currently on home dose of liquids 2.5 and IV Lasix 60 mg twice daily. Ultrasound of the abdomen showing no hydronephrosis or nephrolithiasis. And chest x-ray showed small right pleural effusion with atelectasis. Also patient has chronic left leg wound secondary to a fall about 3 months ago. Patient refused to take the dressing off. We consulted once care. Patient is on Zofran already, we added Phenergan. We ordered a KUB. Also ask for PT OT evaluation. WOUND TEAM CONSULT 07/30/2021 Patient awake alert, no much tachypnea but he stayed in bed most of the time, he still at baseline of 4 L/m of oxygen. However patient reports coughing a lot and making a lot of phlegm, he said he has been diagnosed with pneumonia 2 weeks ago. Actually chest x-ray from yesterday showing bilateral infiltrate, I reviewed the chest x-ray by myself and it looks worse compared to admission despite starting him on a new hemodialysis and receiving Lasix for his CHF. Also we checked his pro-calcitonin and it is elevated at 0.5 for which is consistent with infection with this constellation of CHF, chest x-ray findings and elevated pro-calcitonin. Most likely and high suspicion for hospital acquired pneumonia and patient is a started on Zosyn last night. We going to repeat chest x-ray tomorrow morning. Bladder scan show minimal urine, Flomax was discontinued. Wound care R following the patient for his left foot wound. 07/31/2021 Patient seen in bed most of the time, physical therapy recommended rehab, I talked to him today about this recommendation and he is refusing now. He still on 4 L oxygen nasal cannula which looks like he is this is his baseline however he has coarse crepitation looks like it comes from secretion with decreased air entry on both sides, patient confirms to me he has history of COPD. However I would recommend he follow up with a visiting housekeeper as an outpatient. Repeat chest x-ray today showing no worsening infiltrate however it shows Similar multifocal airspace opacities. Correlate for congestive heart failure and/or diffuse airspace disease in the meantime we will keep him on Zosyn and check a pro-calcitonin tomorrow, if improvement we may consider oral antibiotic. However started on Solu-Medrol 60 mg 3 times a day today. He is kept on IV Lasix and hemodialysis I discussed the case with nephrology team and they recommended the permacath prior to discharge, discussed with bed side nurse to inform surgical vascular team. Workup showing anemia of chronic disease and he was started on arenasept by computer graphic artist. 08/01/2021 Patient clinically is doing well generally, he is breathing quietly, he is tolerating diet well, no bowel movement today Nephrology team on the case and plan for him to get the permacath by vascular surgery team hopefully tomorrow. Also his evidence of COPD exacerbation which is improving therefore Solu-Medrol our to 40 mg twice a day. Pro-calcitonin still elevated 0.68, currently on Zosyn, sputum cultures pending. However patient only having cough and phlegm which is pending as above. Saturation is 4-5 L/m which is his baseline. Rehab is recommended but patient was reluctant so far. 08/02/2021 Patient is lying in bed most of the time, his breathing is at baseline and is i mproving with less crepitation but he is coughing a lot . His oxygen requirement at baseline on 4 L/m which is his home dose. his hemoglobin dropped today to 5.7, his workup showing anemia of chronic disease despite being an IV and oral iron, workup showing anemia of chronic disease but cannot rule out GI bleed especially he's on liquids which is on hold today before going for procedure. Therefore we going to consult GI service in any way. Occult blood in his stool test is requested. Patient states he has 3- 4 loose bowel movements, we will check C. diff as well. No abdominal pain or vomiting. Patient is going for permacath placement today and hemodialysis tomorrow, he got hemodialysis this morning. Patient adamantly refusing to go to rehab despite recommendation for medical and nephrology team on several occasions. Patient and make his own decisions. Objective - Vital Signs Vital signs: Vital Signs Temp 98.3 F 08/02/21 08:00 Pulse 76 08/02/21 09:29 Resp 16 08/02/21 01:19 BP 134/76 08/02/21 08:00 Pulse Ox 97 08/02/21 09:19 Intake & Output 08/01/21 08/02/21 08/02/21 18:59 06:59 18:59 Intake Total 100 Output Total 150 Balance 100 -150 Intake: Intake, IV Titration 100 Amount Piperacillin-Tazobactam 3 100 .375 gm In Sodium Chloride 0.9% 100 ml @ 25 mls/hr IVPB Q12HR [facility] Rx #:[id number] Output: Urine 150 Other: Voiding Method Urinal Urinal # Voids 4 2 # Bowel Movements 1 2 - Exam -GENERAL: The patient is alert and oriented x3, not in any acute distress. Generally weak HEENT: Pupils are round and equally reacting to light. EOMI. No scleral icterus. No conjunctival pallor. Normocephalic, atraumatic. No pharyngeal erythema. No thyromegaly. CARDIOVASCULAR: S1 and S2 present. No murmurs, rubs, or gallops. PULMONARY: Chest is clear to auscultation, no wheezing or crackles. ABDOMEN: Soft, nontender, nondistended, normoactive bowel sounds. No palpable organomegaly. MUSCULOSKELETAL: No joint swelling or deformity. -EXTREMITIES: No cyanosis, clubbing, or pedal edema. Left leg wound with dressing. Right groin hemodialysis catheter is in place NEUROLOGICAL: Gross neurological examination did not reveal any focal deficits. SKIN: No rashes. no petechiae. - Labs CBC & Chem 7: 08/02/21 05:25 08/02/21 05:25 Labs: Abnormal Lab Results - Last 24 Hours (Table) 08/01/21 08/01/21 08/01/21 Range/Units 05:31 05:31 15:39 WBC 3.11 L (4.50-10.00) X 10*3/uL RBC 2.12 L 2.31 L (4.40-5.60) X 10*6/uL Hgb 5.9 L* 6.8 L* (13.0-17.0) g/dL Hct 20.8 L 23.2 L (39.6-50.0) % MCV 98.1 H 100.6 H (80.0-97.0) fL MCHC 28.4 L 29.1 L (32.0-37.0) g/dL RDW 16.7 H 16.6 H (11.5-14.5) % Lymphocytes # 0.15 L (0.90-5.00) X 10*3/uL Monocytes # 0.09 L (0.20-1.00) X 10*3/uL Eosinophils # 0 L (0.04-0.35) X 10*3/uL Sodium (137-145) mmol/L BUN (9-20) mg/dL Creatinine (0.66-1.25) mg/dL Glucose (74-99) mg/dL POC Glucose (mg/dL) (75-99) mg/dL Phosphorus (2.5-4.5) mg/dL Magnesium (1.6-2.3) mg/dL Procalcitonin 0.68 H (0.02-0.09) ng/mL 08/01/21 08/01/21 08/02/21 Range/Units 16:50 20:18 05:25 WBC (4.50-10.00) X 10*3/uL RBC 2.01 L (4.40-5.60) X 10*6/uL Hgb 5.7 L* (13.0-17.0) g/dL Hct 19.8 L* (39.6-50.0) % MCV 98.5 H (80.0-97.0) fL MCHC 28.8 L (32.0-37.0) g/dL RDW 16.5 H (11.5-14.5) % Lymphocytes # (0.90-5.00) X 10*3/uL Monocytes # (0.20-1.00) X 10*3/uL Eosinophils # (0.04-0.35) X 10*3/uL Sodium (137-145) mmol/L BUN (9-20) mg/dL Creatinine (0.66-1.25) mg/dL Glucose (74-99) mg/dL POC Glucose (mg/dL) 335 H 303 H (75-99) mg/dL Phosphorus (2.5-4.5) mg/dL Magnesium (1.6-2.3) mg/dL Procalcitonin (0.02-0.09) ng/mL 08/02/21 08/02/21 Range/Units 05:25 06:50 WBC (4.50-10.00) X 10*3/uL RBC (4.40-5.60) X 10*6/uL Hgb (13.0-17.0) g/dL Hct (39.6-50.0) % MCV (80.0-97.0) fL MCHC (32.0-37.0) g/dL RDW (11.5-14.5) % Lymphocytes # (0.90-5.00) X 10*3/uL Monocytes # (0.20-1.00) X 10*3/uL Eosinophils # (0.04-0.35) X 10*3/uL Sodium 133 L (137-145) mmol/L BUN 54 H (9-20) mg/dL Creatinine 5.10 H (0.66-1.25) mg/dL Glucose 243 H (74-99) mg/dL POC Glucose (mg/dL) 294 H (75-99) mg/dL Phosphorus 5.1 H (2.5-4.5) mg/dL Magnesium 1.5 L (1.6-2.3) mg/dL Procalcitonin (0.02-0.09) ng/mL Microbiology - Last 24 Hours (Table) 08/01/21 11:30 Sputum Culture - Preliminary Sputum Assessment and Plan Assessment: - Bilateral hospital acquired pneumonia is highly suspected - Acute kidney injury on stage IV CKD, started on edge D during this admission - acute diastolic congestive heart failure secondary to cardiorenal - anasarca secondary to cardiorenal syndrome as mentioned above. Hemodialysis daily per nephrology for now - Anemia of chronic disease, with recent troponin hemoglobin. Rule out GI bleed - Loose bowel movement, rule out C. diff colitis. -Hypomagnesemia magnesium will be replaced per Protocol -Chronic respiratory failure secondary to COPD , 5 L of oxygen at home. There is evidence of acute exacerbation -Possible pneumonia, hospital-acquired with elevated pro-calcitonin 0.5 -Hypertension -Hyperlipidemia -Hypothyroidism -History of recent fall and fracture to the left wrist with malunion noted -Paroxsymal atrial fibrillation presently rate controlled patient does have sick sinus syndrome history patient has a pacemaker -Type 2 diabetes mellitus Plan: This is a pleasant 65 years old male presents with acute kidney injury and CHF. Started on hemodialysis. Continue with Zosyn and check sputum culture. Continue with hemodialysis per nephrology team. Patient will need permacath, vascular surgery paged Continue with Lasix. Continue with home dose Eliquis 2.5 mg. Continue with insulin and ISS. Consult wound care repeat chest x-ray and procalcitonin in am Consult GI and check occult blood in stool Check C. diff Labs and medication were reviewed.. Continue same treatment. Continue with sy mptomatic treatment. Resume home medication. Monitor lytes and vitals. DVT and GI prophylaxis. Further recommendation sas per clinical course of the patient DVT prophylaxis: Eliquis (On hold ) GI Prophylaxis: Ppi PT/OT: Recommended subacute rehab, executive secretary social welfare consult Prognosis is guarded
[2021-08-02 11:23] LABS: Glucose,Whole Blood 169 mg/dL (75-99)
[2021-08-02] MEDS ORDERED: DESMOPRESSIN ACETATE 27 MCG in SODIUM CHLORIDE 0.9% 50 ML IVPB ONE (11:30)
[2021-08-02] MEDS: allopurinoL 100 MG TAB PO SCH (11:42)
[2021-08-02] MEDS: guaiFENesin-DM 100-10MG/5ML 10 ML CUP PO SCH ×2 (11:42→17:52)
[2021-08-02 12:13] LABS: Basophils # (A) 0 X 10*3/uL (0.00-0.10); Basophils % (A) 0 %; Eosinophils # (A) 0 X 10*3/uL (0.04-0.35); Eosinophils % (A) 0 %; Immature Grans, Automated 0.5 %; Lymphocytes # (A) 0.39 X 10*3/uL (0.90-5.00); Lymphocytes % (A) 4.7 %; Monocytes # (A) 0.28 X 10*3/uL (0.20-1.00); Monocytes % (A) 3.3 %; Neutrophils # (A) 7.67 X 10*3/uL (1.80-7.70); Neutrophils % (A) 91.5 %
--- NOTE | 2021-08-02 14:49 | P.CONS ---
History of Present Illness - Reason for Consult Consult date: 08/02/21 Anemia Requesting physician: Tip E Sheet - Chief Complaint Shortness of breath - History of Present Illness This is a 65-year-old male with multiple comorbidities including atrial fibrillation on Eliquis, heart failure, COPD, diabetes mellitus, DVT, GERD, hyperlipidemia, hypertension pneumonia, renal disease and sleep apnea and vascular disorder presented to emergency department on 07/26/2021 with complaints of shortness of breath and swelling in his legs. During this admission he was diagnosed with acute on chronic kidney injury requiring hemodialysis and had a temporary cath placed on 07/27/2021 and is scheduled today to undergo permacath. He is currently undergoing hemodialysis. He was noted to have a drop in his hemoglobin to 5.7 today. He is getting 1 unit of PRBC transfusion currently. He has a history of chronic anemia however significant drop in his hemoglobin during this admission. His last dose of Eliquis was yesterday morning. He also has a history of alcohol abuse, states he quit drinking 2 months ago. Prior to that he states he has cut back. He denies any black stool or blood in his stool. He has had some loose bowel movements but they have been brown. He states he had a colonoscopy approximately 5 years ago at the [place], it was significant for polyps. He believes he's had an EGD in the past as well but no previous history of ulcers. Today's labs WBC 8.3 hemoglobin 5.7 hematocrit 19.8 platelet count 280,000. 54 creatinine 5.1. Iron studies are consistent with iron deficiency anemia. He currently denies any abdominal pain, nausea, or vomiting. States he just feels weak and tired. Review of Systems REVIEW OF SYSTEMS: CARDIOPULMONARY: No chest pain. Shortness of breath and lower extremity edema. Gastrointestinal: No abdominal pain. No nausea or vomiting. No hematemesis, coffee-ground emesis. No rectal bleeding, or melena. GENITOURINARY: No dysuria or hematuria. MUSCULOSKELETAL: Reports normal range of motion., Joint pain. SKIN: No rashes. No jaundice. ENDOCRINE: No chills, fevers. No excessive weight gain or loss. No polydipsia or polyuria. PSYCHIATRIC: Unremarkable. NEUROLOGY: No change in mental status. Denies dizziness, headache. ENT: Vision unremarkable. CONSTITUTIONAL: No recent weight loss. No fever, chills, night sweats. Past Medical History Past Medical History: Atrial Fibrillation, Heart Failure, COPD, Diabetes M ellitus, Deep Vein Thrombosis (DVT), GERD/Reflux, Hyperlipidemia, Hypertension, Pneumonia, Renal Disease, Respiratory Disorder, Skin Disorder, Sleep Apnea/CPAP/BIPAP, Vascular Disorder Additional Past Medical History / Comment(s): Pt recently admitted to [facility] on 06/24/21 with acute/chronic kidney disease, acute on chronic hypoxic respiratory distress, acute CHF, bilateral pleural effusion/R side worse and had thoracentesis, sputum with pseudomonos aeraginosis, hemotysis. Other hx: Chronic hypoxic respiratory failure and the patient OXYGEN dependent 5 L, previous history of left-sided pneumothorax requiring a Thoravent insertion, 2015 covid, IDDM type II, neuropathy bilateral feet, paroxysmal AFIB, SSS with pacer, nonischemic cardiomyopathy, past alcoholism/DTs, diverticulosis, obstuctive sleep apnea but no Cpap since wt loss, sinusitis, elevated LFTs, BPH, CKD stag III, DVT R leg, gout, hypothyroid, hypomagnesemia, hypoalbuminemia, anemia, protein calorie malnutrition, PVD, current sores bottom of L foot, left wrist fracture History of Any Multi-Drug Resistant Organisms: None Reported Past Surgical History: Appendectomy, Cholecystectomy, Heart Catheterization, Pacemaker Additional Past Surgical History / Comment(s): Partial liver removed d/t adhesions, colonoscopies, bilateral eyes blepharoplasties, pacer Past Anesthesia/Blood Transfusion Reactions: Postoperative Nausea & Vomiting (PONV) Additional Past Anesthesia/Blood Transfusion Reaction / Comm: Pt states he has had PONV with gas only. Type of Cardiac Device: Permanent Pacemaker Device Placement Date:: 2017 Smoking Status: Former smoker - Past Family History Mother Family Medical History: Thyroid Disorder Additional Family Medical History / Comment(s): . Father Additional Family Medical History / Comment(s): Father of diverticulitis,peritonitis at the age of 35yrs. Medications and Allergies Home Medications Medication Instructions Recorded Confirmed Type Tamsulosin [Flomax] 0.4 mg PO HS 06/23/16 07/27/21 History ondansetron HCL [Zofran] 4 mg PO Q8H PRN 09/30/18 07/26/21 History Apixaban [Eliquis] 2.5 mg PO BID 01/11/19 07/26/21 History Insulin Glargine,Hum.rec.anlog 25 unit SQ HS@199908/02/20 07/26/21 History [Lantus Solostar Pen] Levothyroxine Sodium [Synthroid] 25 mcg PO DAILY@0700 08/02/20 07/26/21 History Ipratropium/Albuter 20-100Mcg 1 puff INHALATION RT-QID 05/17/21 07/26/21 History [Combivent Respimat 20-100Mcg Inhaler] Lidocaine 5% Patch [Lidoderm 5% 1 patch TOPICAL DAILY@1600 PRN 05/17/21 07/26/21 History Patch] Midodrine HCl [ProAmatine] 10 mg PO TID 05/17/21 07/26/21 History allopurinoL [Zyloprim] 200 mg PO DAILY@1400 05/17/21 07/26/21 History Ascorbic Acid [Vitamin C] 1,000 mg PO BID@0800,1400 06/24/21 07/26/21 History Budesonide [Pulmicort] 0.5 mg INHALATION RT-BID 06/24/21 07/26/21 History Cholecalciferol [Vitamin D3 (25 25 mcg PO DAILY@0800 06/24/21 07/26/21 History Mcg = 1000 Iu)] Dicyclomine [Bentyl] 20 mg PO Q8H PRN 06/24/21 07/26/21 History Ferrous Sulfate [Iron (65 MG 325 mg PO DAILY@0800 06/24/21 07/26/21 History Elemental)] Fluticasone/Vilanterol [Breo 1 puff INHALATION RT-DAILY@0600 06/24/21 07/26/21 History Ellipta 200-25 Mcg Inhaler] INSULIN ASPART (NovoLOG) [NovoLOG See Protocol SQ ACHS 06/24/21 07/26/21 History (formulary)] Ipratropium-Albuterol Nebulize 3 ml INHALATION RT-Q4H PRN 06/24/21 07/26/21 History [Duoneb 0.5 mg-3 mg/3 ml Soln] Loperamide HCl [Loperamide] 2 mg PO Q6H PRN 06/24/21 07/26/21 History Metoprolol Succinate (ER) [Toprol 50 mg PO HS@199906/24/21 07/26/21 History XL] Torsemide [Demadex] 40 mg PO DAILY@0700 06/24/21 07/26/21 History Artificial Tears-Hypromellose 2 drops BOTH EYES TID PRN ml 07/07/21 07/26/21 Rx [Artificial Tear Drops] Darbepoetin Hubert [Aranesp] 60 mcg SQ Q7D each 07/07/21 07/26/21 Rx Ipratropium-Albuterol Nebulize 3 ml INHALATION RT-QID ml 07/07/21 07/26/21 Rx [Duoneb 0.5 mg-3 mg/3 ml Soln] Pantoprazole [Protonix] 40 mg PO AC-BRKFST tab 07/07/21 07/26/21 Rx diphenhydrAMINE [Benadryl] 25 mg PO TID PRN cap 07/07/21 07/26/21 Rx Allergies Allergy/AdvReac Type Severity Reaction Status Date / Time codeine Allergy Unknown Verified 07/26/21 20:10 Physical Exam Vitals: Vital Signs Temp Pulse Pulse Resp BP BP Pulse Ox 08/02/21 12:37 97.4 F L 70 16 126/70 08/02/21 12:27 97.6 F 64 129/68 08/02/21 10:13 98.3 F 70 16 143/76 08/02/21 09:29 76 08/02/21 09:19 72 97 08/02/21 08:00 98.3 F 70 134/76 99 08/02/21 01:19 97.7 F 79 16 131/67 97 08/01/21 19:35 97.6 F 87 15 128/55 94 L 08/01/21 14:00 97.6 F 78 17 133/75 96 Intake and Output 08/01/21 08/02/21 08/02/21 22:59 06:59 14:59 Intake Total 100 150 Output Total 150 Balance 100 0 Intake: Intake, IV Titration 100 150 Amount Desmopressin Acetate 27 50 mcg In Sodium Chloride 0. 9% 50 ml @ 200 mls/hr IVPB ONCE ONE Rx#: [id number] Piperacillin-Tazobactam 3 100 .375 gm In Sodium Chloride 0.9% 100 ml @ 25 mls/hr IVPB Q12HR [facility] Rx #:[id number] Sodium Ferric Gluconat- 100 Sucrose 125 mg In Sodium Chloride 0.9% 100 ml @ 100 mls/hr IVPB DAILY [facility] Rx#:[id number] Blood Product 0 Rc As-1 Unit 0 [id number] Output: Urine 150 Other: Voiding Method Urinal # Voids 4 2 # Bowel Movements 1 2 General appearance: The patient is alert, oriented, fatigued, appears in no acute distress. HET: Head is normocephalic and atraumatic. Conjunctiva pink. Sclera anicteric. Neck: Supple without lymphadenopathy. Trachea midline. Heart: S1 S2. Regular rate and rhythm. Lungs: Clear to auscultation. Abdomen: Soft, nontender, nondistended with bowel sounds. No guarding or rigidity. Skin: No rashes. No jaundice. Extremities: Normal skin color and turgor. Bilateral lower extremity edema. Neurological: No focal deficits. Alert and oriented x3. Results CBC & Chem 7: 08/02/21 05:25 08/02/21 05:25 Labs: Abnormal Lab Results - Last 24 Hours (Table) 08/01/21 08/01/21 08/01/21 Range/Units 05:31 15:39 16:50 WBC 3.11 L (4.50-10.00) X 10*3/uL RBC 2.12 L 2.31 L (4.40-5.60) X 10*6/uL Hgb 5.9 L* 6.8 L* (13.0-17.0) g/dL Hct 20.8 L 23.2 L (39.6-50.0) % MCV 98.1 H 100.6 H (80.0-97.0) fL MCHC 28.4 L 29.1 L (32.0-37.0) g/dL RDW 16.7 H 16.6 H (11.5-14.5) % Lymphocytes # 0.15 L (0.90-5.00) X 10*3/uL Monocytes # 0.09 L (0.20-1.00) X 10*3/uL Eosinophils # 0 L (0.04-0.35) X 10*3/uL Sodium (137-145) mmol/L BUN (9-20) mg/dL Creatinine (0.66-1.25) mg/dL Glucose (74-99) mg/dL POC Glucose (mg/dL) 335 H (75-99) mg/dL Phosphorus (2.5-4.5) mg/dL Magnesium (1.6-2.3) mg/dL Crossmatch 08/01/21 08/02/21 08/02/21 Range/Units 20:18 05:25 05:25 WBC (4.50-10.00) X 10*3/uL RBC 2.01 L (4.40-5.60) X 10*6/uL Hgb 5.7 L* (13.0-17.0) g/dL Hct 19.8 L* (39.6-50.0) % MCV 98.5 H (80.0-97.0) fL MCHC 28.8 L (32.0-37.0) g/dL RDW 16.5 H (11.5-14.5) % Lymphocytes # 0.39 L (0.90-5.00) X 10*3/uL Monocytes # (0.20-1.00) X 10*3/uL Eosinophils # 0 L (0.04-0.35) X 10*3/uL Sodium 133 L (137-145) mmol/L BUN 54 H (9-20) mg/dL Creatinine 5.10 H (0.66-1.25) mg/dL Glucose 243 H (74-99) mg/dL POC Glucose (mg/dL) 303 H (75-99) mg/dL Phosphorus 5.1 H (2.5-4.5) mg/dL Magnesium 1.5 L (1.6-2.3) mg/dL Crossmatch 08/02/21 08/02/21 08/02/21 Range/Units 06:50 11:00 11:15 WBC (4.50-10.00) X 10*3/uL RBC (4.40-5.60) X 10*6/uL Hgb (13.0-17.0) g/dL Hct (39.6-50.0) % MCV (80.0-97.0) fL MCHC (32.0-37.0) g/dL RDW (11.5-14.5) % Lymphocytes # (0.90-5.00) X 10*3/uL Monocytes # (0.20-1.00) X 10*3/uL Eosinophils # (0.04-0.35) X 10*3/uL Sodium (137-145) mmol/L BUN (9-20) mg/dL Creatinine (0.66-1.25) mg/dL Glucose (74-99) mg/dL POC Glucose (mg/dL) 294 H 169 H (75-99) mg/dL Phosphorus (2.5-4.5) mg/dL Magnesium (1.6-2.3) mg/dL Crossmatch See Detail Microbiology - Last 24 Hours (Table) 08/01/21 11:30 Gram Stain - Preliminary Sputum Sputum Culture - Preliminary Comments: KUB x-ray reports nonspecific abdomen, bibasilar infiltrate and small effusions Chest x-ray reports finding similar to prior exam. There may be interstitial edema and congestive heart failure, pneumonia, interstitial lung disease, difficult to exclude pleural effusion. Assessment and Plan (1) Anemia Narrative/Plan: A 65-year-old male with a history multiple comorbidities who presented to the emergency department but a week ago with complaints of shortness of breath and lower extremity swelling. He has a history of atrial fibrillation and chronic anemia however he had a significant drop in his hemoglobin during this admission. Patient does take Eliquis for his atrial fibrillation last dose yesterday morning. He has a history of chronic kidney disease with acute kidney failure requiring hemodialysis. He is scheduled this afternoon for a permacath. He is currently receiving dialysis and likely has a component of anemia of chronic disease however with significant drop in hemoglobin and iron studies consistent with an iron deficiency anemia on anticoagulation recommendation would be upper and lower endoscopy for further evaluation. He has denied any overt signs of bleeding, denies any black stool or blood in his stool. He is currently getting 1 unit of PRBC transfusion for hemoglobin of 5.7. Possible etiologies again include anemia chronic disease, with possible underlying liver disease from alcohol abuse, chronic renal failure, as well as possible AVM, esophagitis, peptic ulcer disease, or other possible etiologies. Discussed with patient and well plan for EGD and colonoscopy on Monday. Will start clear liquid diet tomorrow and prep for colonoscopy. Current Visit: Yes Status: Acute Code(s): D64.9 - ANEMIA, UNSPECIFIED SNOMED Code(s): 236655083 (2) H/O ETOH abuse Narrative/Plan: The patient has a long standing history of alcohol abuse. He admits that his la st alcoholic drink was about 2 months ago. He did not give further information on how much she had been drinking but states that he has cut back. Current Visit: No Status: Chronic Code(s): Z87.898 - PERSONAL HISTORY OF O THER SPECIFIED CONDITIONS SNOMED Code(s): 160716645 (3) Atrial fibrillation Current Visit: Yes Status: Acute Code(s): I48.91 - UNSPECIFIED ATRIAL FIBRILLATION SNOMED Code(s): 94021944 (4) Acute on chronic renal failure Narrative/Plan: Patient to undergo permacath placement today. Currently undergoing he modialysis, will be a Monday schedule. Current Visit: No Status: Acute Code(s): N17.9 - ACUTE KIDNEY FAILURE, UNSPECIFIED; N18.9 - CHRONIC KIDNEY DISEASE, UNSPECIFIED SNOMED Code(s): 608808205 (5) Diabetes Current Visit: No Status: Chronic Code(s): E11.9 - TYPE 2 DIABETES MELLITUS WITHOUT COMPLICATIONS SNOMED Code(s): 41373237 Plan: 1. Continue symptomatic and supportive care 2. Continue to Hold Eliquis 3. Daily CBC, transfuse per protocol 4. Agree with PRBC transfusion 5. Continue with hemodialysis per recommendations from nephrology 6. Continue with alcohol cessation 7. Clear liquid tomorrow 8. Will start bowel prep tomorrow evening 9. Plan for EGD and colonoscopy on Monday Thank you for this consultation, we will continue to follow. Dr. Monse Coffman I agree with the dictator's note, documented as a scribe by Sameera Alexander.
[2021-08-02] MEDS: MAGNESIUM SULFATE-D5W PMX 1 GM in DEXTROSE/WATER 1 100ML.BAG IVPB SCH ×2 (15:43→16:32)
[2021-08-02 15:59] LABS: Glucose,Whole Blood 213 mg/dL (75-99)
[2021-08-02] MEDS ORDERED: IV FLUID CONTINUATION 500 ML IV ONE (16:38)
[2021-08-02] MEDS ORDERED: MIDAZOLAM 2 MG/2 ML VIAL IV ONE (16:50)
[2021-08-02] MEDS ORDERED: fentaNYL (PF) 50 MCG/ML 2 ML AMP IV ONE (16:50)
[2021-08-02] MEDS ORDERED: LIDOCAINE 1% INJ 10MG/ML (20 ML MDV) SQ ONE (16:52)
[2021-08-02] MEDS ORDERED: HEPARIN SODIUM 1,000 UN/ML (10ML VL) IV ONE (16:59)
--- NOTE | 2021-08-02 18:10 | XR ---
EXAMINATION TYPE: XR chest 1V confirm line [facility] DATE OF EXAM: 08/02/2021 COMPARISON: Today HISTORY: Short of breath TECHNIQUE: FINDINGS: There is right central venous dual lumen catheter with tip in the top of the right atrium and in the right ventricle. There is pulmonary vascular congestion. There is left axillary pacemaker. There is b lunting of the costophrenic angles. No pneumothorax. IMPRESSION: Congestive heart failure with pleural effusions. No change.
[2021-08-02] MEDS: METOPROLOL SUCCINATE (ER) 50 MG TAB.ER.24H PO SCH (20:21)
[2021-08-02] MEDS: APIXABAN 2.5 MG TABLET PO SCH (20:21)
--- NOTE | 2021-08-02 21:10 | IR ---
EXAMINATION TYPE: IR cvc insert central tunneled DATE OF EXAM: 08/02/2021 COMPARISON: NONE HISTORY: Dialysis catheter placement Fluoroscopy support supplied to the referring clinician. See dictated report from vascular surgery, 0.8 minutes fluoroscopy time, 289 intraoperative images document the procedure
[2021-08-02 21:22] LABS: Glucose,Whole Blood 286 mg/dL (75-99)
--- NOTE | 2021-08-02 21:30 | PCN ---
PROCEDURE NOTE PREOPERATIVE DIAGNOSIS: Acute on chronic renal failure. POSTOPERATIVE DIAGNOSIS: Acute on chronic renal failure. PROCEDURE: 1. Placement of 23 cm dialysis catheter, right jugular approach. 2. Removal of dialysis catheter, left femoral approach. Sedation time is 25 minutes. PROCEDURE DESCRIPTION: This patient was brought to the [facility] laboratory assistant. Right side of the neck and chest was prepped and drapes were applied in the usual sterile manner. Left groin was prepped and drapes were applied in the usual sterile manner. Lidocaine 1% was infiltrated into the neck and chest area. Ultrasound-guided micropuncture was introduced into right jugular vein. Micropuncture guidewire was passed and 4-Brazilian dilator was advanced on top of the guidewire. Then we passed a guidewire which was parked in the inferior vena cava. This patient has a pacemaker from the left side. After the tunnel was created, we brought through the tunnel a 23 cm dialysis catheter. The dilator was advanced and sheath was advanced on top of the guidewire. Through the sheath we introduced the dialysis catheter. Tip of the catheter was in superior vena cavoatrial junction. Incision was closed with Vicryl and nylon. Dressing was applied. Patient tolerated the procedure well. Left groin were prepped and left groin catheter was removed. Pressure was held for 10 minutes. Pressure dressing was applied. Patient tolerated the procedure well. MMODL / IJN: [id number] /
[2021-08-02] MEDS: INSULIN DETEMIR (LEVEMIR) 100 UNIT/ML SYR SQ SCH (21:46)
[2021-08-03] MEDS: guaiFENesin-DM 100-10MG/5ML 10 ML CUP PO SCH ×2 (00:34→05:39)
[2021-08-03] MEDS: HYDROcodone/APAP 5-325MG 1 EACH TAB PO PRN ×2 (01:01→07:37)
[2021-08-03 01:13] LABS: Anisocytosis Slight; HCT 23.8 % (39.0-53.0); HGB 7.1 gm/dL (13.0-17.5); Hypochromasia Marked; MCH 29.6 pg (25.0-35.0); MCHC 29.9 g/dL (31.0-37.0); MCV 98.8 fL (80.0-100.0); Macrocytosis Slight; Mean Platelet Volume 7.9; Platelet Count 257 k/uL (150-450); Poikilocytosis Slight; RBC 2.41 m/uL (4.30-5.90); RDW 16.5 % (11.5-15.5); WBC 8.1 k/uL (3.8-10.6)
[2021-08-03] MEDS: MIDODRINE 5 MG TAB PO SCH ×4 (02:56→22:32)
[2021-08-03] MEDS: LEVOTHYROXINE 25 MCG TAB PO SCH (05:38)
--- NOTE | 2021-08-03 08:10 | XR ---
EXAMINATION TYPE: XR chest 1V DATE OF EXAM: 08/03/2021 COMPARISON: Chest x-ray 08/02/2021 HISTORY: Shortness of breath TECHNIQUE: Single frontal view of the chest is obtained. FINDINGS: Right jugular central venous dialysis catheter is stable with the tip overlying the cavoat rial junction. The left sided generator with leads in the right atrium and ventricle are stable, hear t is enlarged. Bibasilar increased attenuation noted with obscured hemidiaphragms, blunting the costo phrenic angles. Interstitium is increased, central vascularity is prominent. No evident pneumothorax. IMPRESSION: Findings are similar, correlate for volume overload, congestive heart failure and inters titial edema with probable basilar effusions and associated atelectasis, difficult to exclude pneumon ia
--- NOTE | 2021-08-03 09:12 | P.PN ---
Subjective Patient is seen in follow-up for acute kidney injury on chronic kidney disease, started on hemodialysis since admission. No problems with dialysis yesterday. Permacath placed yesterday. Groin catheter removed. Mentation improved from admission. Denies chest pain or shortness of breath. No active bleeding. Received a unit of blood yesterday. Hemoglobin 7.1 today. Vital signs are stable. General: Awake. HEENT: Head exam is unremarkable. LUNGS: Breath sounds decreased. HEART: Rate and Rhythm are regular. ABDOMEN: Soft, no distention. EXTREMITITES: No edema. Objective - Vital Signs Vital signs: Vital Signs Temp 97.6 F 08/03/21 07:16 Pulse 63 08/03/21 07:16 Resp 18 08/03/21 07:16 BP 137/73 08/03/21 07:16 Pulse Ox 100 08/03/21 07:16 Intake & Output 08/02/21 08/03/21 08/03/21 18:59 06:59 18:59 Intake Total 510 Output Total 2150 300 Balance -1640 -300 Weight 96.615 kg Intake: IV 50 Intake, IV Titration 150 Amount Desmopressin Acetate 27 50 mcg In Sodium Chloride 0. 9% 50 ml @ 200 mls/hr IVPB ONCE ONE Rx#: [id number] Sodium Ferric Gluconat- 100 Sucrose 125 mg In Sodium Chloride 0.9% 100 ml @ 100 mls/hr IVPB DAILY [facility] Rx#:[id number] Blood Product 310 Rc As-1 Unit 310 [id number] Output: Urine 150 300 Hemodialysis 2000 Other: Voiding Method Urinal Urinal # Bowel Movements 2 - Labs CBC & Chem 7: 08/03/21 00:47 08/02/21 05:25 Labs: Abnormal Lab Results - Last 24 Hours (Table) 08/02/21 08/02/21 08/02/21 Range/Units 05:25 11:00 11:15 RBC 2.01 L (4.40-5.60) X 10*6/uL Hgb 5.7 L* (13.0-17.0) g/dL Hct 19.8 L* (39.6-50.0) % MCV 98.5 H (80.0-97.0) fL MCHC 28.8 L (32.0-37.0) g/dL RDW 16.5 H (11.5-14.5) % Lymphocytes # 0.39 L (0.90-5.00) X 10*3/uL Eosinophils # 0 L (0.04-0.35) X 10*3/uL POC Glucose (mg/dL) 169 H (75-99) mg/dL Crossmatch See Detail 08/02/21 08/02/21 08/03/21 Range/Units 15:58 21:19 00:47 RBC 2.41 L (4.40-5.60) X 10*6/uL Hgb 7.1 L (13.0-17.0) g/dL Hct 23.8 L (39.6-50.0) % MCV (80.0-97.0) fL MCHC 29.9 L (32.0-37.0) g/dL RDW 16.5 H (11.5-14.5) % Lymphocytes # (0.90-5.00) X 10*3/uL Eosinophils # (0.04-0.35) X 10*3/uL POC Glucose (mg/dL) 213 H 286 H (75-99) mg/dL Crossmatch Microbiology - Last 24 Hours (Table) 08/01/21 11:30 Gram Stain - Preliminary Sputum Sputum Culture - Preliminary Assessment and Plan Plan: Assessment: 1. Acute kidney injury on chronic kidney disease stage IV, started on hemodialysis on 07/27/2021. Permacath placed 08/02/2021. Groin catheter removed. 2. Chronic kidney disease stage IV secondary to diabetic kidney disease and cardiorenal syndrome. Serologies negative except for mildly low C3 level. Patient is not a candidate for renal biopsy due to advanced renal failure. 3. Acute blood loss anemia. On Aranesp. Receiving IV iron. Also received blood transfusion and DDAVP. No active bleeding. GI following. EGD and colonoscopy scheduled for tomorrow. 4. Diabetes mellitus. 5. A. fib. Plan: Hemodialysis tomorrow. I will change Lasix to 80 mg orally once daily. Hold midodrine for systolic blood pressure greater than 110. Outpatient dialysis being set up by case management.
[2021-08-03] MEDS ORDERED: INSULIN DETEMIR (LEVEMIR) 100 UNIT/ML SYR SQ ONE (09:15)
[2021-08-03] MEDS: SYMBICORT 160-4.5 MCG INHALER INHALATION SCH ×2 (09:18→20:53)
[2021-08-03] MEDS: BUDESONIDE 0.5 MG/2 ML NEBU INHALATION SCH ×2 (09:18→20:52)
[2021-08-03] MEDS: IPRATROPIUM-ALBUTEROL 3 ML NEB INHALATION SCH ×4 (09:18→20:53)
[2021-08-03] MEDS: PANTOPRAZOLE 40 MG TABLET PO SCH (09:22)
[2021-08-03] MEDS: CHOLECALCIFEROL 25 MCG (1000 IU) TABLET PO SCH (09:22)
[2021-08-03] MEDS: FERROUS SULFATE 325 MG TAB PO SCH (09:23)
[2021-08-03] MEDS: ASCORBIC ACID 500 MG TAB PO SCH ×2 (09:23→21:06)
[2021-08-03] MEDS: INSULIN ASPART (NovoLOG) 100 UNIT/ML VIAL SQ SCH ×4 (09:25→20:58)
[2021-08-03] MEDS: SODIUM FERRIC GLUCONAT-SUCROSE 125 MG in SODIUM CHLORIDE 0.9% 100 ML IVPB SCH (09:30)
[2021-08-03] MEDS ORDERED: guaiFENesin-DM 100-10MG/5ML 10 ML CUP PO PRN (09:52)
[2021-08-03] MEDS: ONDANSETRON 4 MG/2 ML VIAL IVP PRN (10:03)
[2021-08-03] MEDS: FUROSEMIDE 10 MG/ML 10 ML VIAL IV SCH (11:57)
--- NOTE | 2021-08-03 12:46 | XR ---
Left wrist HISTORY: Fracture, trauma one month prior 2 views the left wrist correlated prior exam 07/26/2021, 06/28/2021 Fragmented appearance of the distal left radial fracture is again seen consistent with angulated, com minuted intra-articular distal radial fracture, chronic ulnar styloid fracture is also suspected with displacement. Scaphoid waist fracture is again noted. Bone mineralization is reduced. No evident dis location. IMPRESSION: Findings are similar to prior exam as described.
[2021-08-03 12:50] LABS: Anisocytosis Slight; Basophils % (A) 0 %; Eosinophils % (A) 0 %; HGB 8.1 gm/dL (13.0-17.5); Hypochromasia Marked; Lymphocytes # (A) 0.8 k/uL (1.0-4.8); Lymphocytes % (A) 8 %; MCH 29.6 pg (25.0-35.0); MCV 102.2 fL (80.0-100.0); Macrocytosis Moderate; Mean Platelet Volume 8.1; Monocytes # (A) 0.8 k/uL (0-1.0); Monocytes % (A) 9 %; Neutrophils # (A) 7.7 k/uL (1.3-7.7); Neutrophils % (A) 81 %; Platelet Count 337 k/uL (150-450); Poikilocytosis Slight; RBC 2.74 m/uL (4.30-5.90); RDW 16.6 % (11.5-15.5); WBC 9.5 k/uL (3.8-10.6)
[2021-08-03] MEDS ORDERED: FUROSEMIDE 10 MG/ML 10 ML VIAL IV STA (13:08)
--- NOTE | 2021-08-03 13:10 | P.PN ---
Progress Note - Text Progress Note Date: 08/03/21 The patient is well known to our service. He has been seen previously in consultation for a distal radius fracture. He was scheduled to follow-up multiple times with our hand surgeon, Dr. Mckeon, but has never been to the office for follow-ups. He has also been non-compliant with recommendations for splints, casts and braces. His current images were reviewed with Dr. Mckeon. We would recommend non-operative management given his multiple medical problems. He can wear a removable brace as needed. He can follow-up in the office following discharge with our hand surgeon, Dr. Mckeon.
[2021-08-03 13:11] LABS: Reticulocyte % 1.5 % (0.5-2.0)
[2021-08-03 13:14] LABS: ALT 7 U/L (4-49); AST 12 U/L (17-59); African American GFR (CKD) 20 (>60 ml/min/1.73 sqM); Albumin 3.2 g/dL (3.5-5.0); Albumin/Globulin Ratio 0.9; Alkaline Phosphatase 57 U/L (38-126); Anion Gap 8 mmol/L; Blood Urea Nitrogen 39 mg/dL (9-20); Calcium 8.6 mg/dL (8.4-10.2); Carbon Dioxide 26 mmol/L (22-30); Chloride 96 mmol/L (98-107); Globulin 3.4 g/dL; Glucose 177 mg/dL (74-99); Magnesium 2.2 mg/dL (1.6-2.3); Non-African American GFR(CKD) 17 (>60 ml/min/1.73 sqM); Potassium 4.7 mmol/L (3.5-5.1); Sodium 130 mmol/L (137-145); Total Bilirubin 0.4 mg/dL (0.2-1.3); Total Protein 6.6 g/dL (6.3-8.2)
[2021-08-03] MEDS: allopurinoL 100 MG TAB PO SCH (13:20)
--- NOTE | 2021-08-03 13:52 | P.PN ---
Subjective Progress Note Date: 08/03/21 Principal diagnosis: Anemia A 65-year-old male with multiple comorbidities including atrial fibrillation on Eliquis, heart failure, COPD oxygen dependent who presented to the emergency department with weakness and shortness of breath. He was diagnosed with acute on chronic kidney injury and he required hemodialysis, yesterday he underwent permacath placement. He is scheduled for dialysis again today. Nursing called stated that there was concerns that he is holding increase fluid. He is up to 6 L per nasal cannula, he wears 5 L at home. The patient was scheduled to undergo EGD and colonoscopy tomorrow, however due to his respiratory status will hold off so patient continued hemodialysis and consider rescheduling for . Objective - Vital Signs Vital signs: Vital Signs Temp 97.6 F 08/03/21 07:16 Pulse 63 08/03/21 10:26 Resp 18 08/03/21 10:26 BP 137/73 08/03/21 07:16 Pulse Ox 100 08/03/21 07:16 Intake & Output 08/02/21 08/03/21 08/03/21 18:59 06:59 18:59 Intake Total 510 Output Total 2150 300 Balance -1640 -300 Weight 96.615 kg Intake: IV 50 Intake, IV Titration 150 Amount Desmopressin Acetate 27 50 mcg In Sodium Chloride 0. 9% 50 ml @ 200 mls/hr IVPB ONCE ONE Rx#: [id number] Sodium Ferric Gluconat- 100 Sucrose 125 mg In Sodium Chloride 0.9% 100 ml @ 100 mls/hr IVPB DAILY [facility] Rx#:[id number] Blood Product 310 Rc As-1 Unit 310 [id number] Output: Urine 150 300 Hemodialysis 2000 Other: Voiding Method Urinal Urinal # Bowel Movements 2 - Exam General appearance: The patient is alert, oriented, appears in no acute distress. HET: Head is normocephalic and atraumatic. Conjunctiva pink. Sclera anicteric. Neck: Supple without lymphadenopathy. Pulmonary: Equal air entry, productive cough. Decreased breath sounds. Abdomen: Soft, nontender, nondistended with bowel sounds. No guarding or rigidity. Extremities: Normal skin color and turgor. No pedal edema Skin: No rashes, no jaundice Neurological: No focal deficits. Alert and oriented x 3. - Labs CBC & Chem 7: 08/03/21 11:42 08/03/21 11:42 Labs: Abnormal Lab Results - Last 24 Hours (Table) 08/02/21 08/02/21 08/03/21 Range/Units 15:58 21:19 00:47 RBC 2.41 L (4.30-5.90) m/uL Hgb 7.1 L (13.0-17.5) gm/dL Hct 23.8 L (39.0-53.0) % MCV (80.0-100.0) fL MCHC 29.9 L (31.0-37.0) g/dL RDW 16.5 H (11.5-15.5) % Lymphocytes # (1.0-4.8) k/uL Sodium (137-145) mmol/L Chloride (98-107) mmol/L BUN (9-20) mg/dL Creatinine (0.66-1.25) mg/dL Glucose (74-99) mg/dL POC Glucose (mg/dL) 213 H 286 H (75-99) mg/dL AST (17-59) U/L Albumin (3.5-5.0) g/dL 08/03/21 08/03/21 Range/Units 11:42 11:42 RBC 2.74 L (4.30-5.90) m/uL Hgb 8.1 L (13.0-17.5) gm/dL Hct 28.0 L (39.0-53.0) % MCV 102.2 H (80.0-100.0) fL MCHC 29.0 L (31.0-37.0) g/dL RDW 16.6 H (11.5-15.5) % Lymphocytes # 0.8 L (1.0-4.8) k/uL Sodium 130 L (137-145) mmol/L Chloride 96 L (98-107) mmol/L BUN 39 H (9-20) mg/dL Creatinine 3.50 H (0.66-1.25) mg/dL Glucose 177 H (74-99) mg/dL POC Glucose (mg/dL) (75-99) mg/dL AST 12 L (17-59) U/L Albumin 3.2 L (3.5-5.0) g/dL Microbiology - Last 24 Hours (Table) 08/01/21 11:30 Gram Stain - Final Sputum Sputum Culture - Final Assessment and Plan (1) Anemia Narrative/Plan: A 65-year-old male with a history multiple comorbidities who presented to the emergency department but a week ago with complaints of shortness of breath and lower extremity swelling. He has a history of atrial fibrillation and chronic anemia however he had a significant drop in his hemoglobin during this admission. Patient does take Eliquis for his atrial fibrillation last dose yesterday morning. He has a history of chronic kidney disease with acute kidney failure requiring hemodialysis. He is scheduled this afternoon for a permacath. He is currently receiving dialysis and likely has a component of anemia of chronic disease however with significant drop in hemoglobin and iron studies consistent with an iron deficiency anemia on anticoagulation recommendation would be upper and lower endoscopy for further evaluation. He has denied any overt signs of bleeding, denies any black stool or blood in his stool. He is currently getting 1 unit of PRBC transfusion for hemoglobin of 5.7. Possible etiologies again include anemia chronic disease, with possible underlying liver disease from alcohol abuse, chronic renal failure, as well as possible AVM, esophagitis, peptic ulcer disease, or other possible etiologies. Discussed with patient and well plan for EGD and colonoscopy on Monday. Will start clear liquid diet tomorrow and prep for colonoscopy. We'll reschedule EGD and colonoscopy tentatively for due to fluid overload and need for hemodialysis. Current Visit: Yes Status: Acute Code(s): D64.9 - ANEMIA, UNSPECIFIED SNOMED Code(s): 093502611 (2) H/O ETOH abuse Narrative/Plan: The patient has a long standing history of alcohol abuse. He admits that his last alcoholic drink was about 2 months ago. He did not give further information on how much she had been drinking but states that he has cut back. Current Visit: No Status: Chronic Code(s): Z87.898 - PERSONAL HISTORY OF OTHER SPECIFIED CONDITIONS SNOMED Code(s): 167179415 (3) Atrial fibrillation Current Visit: Yes Status: Acute Code(s): I48.91 - UNSPECIFIED ATRIAL FIBRILLATION SNOMED Code(s): 71442028 (4) Acute on chronic renal failure Narrative/Plan: Patient to undergo permacath placement today. Currently undergoing hemodialysis, will be a Monday schedule. The patient still has fluid overload, requiring hemodialysis again today. We'll reschedule EGD colonoscopy tentatively for Current Visit: No Status: Acute Code(s): N17.9 - ACUTE KIDNEY FAILURE, UNSPECIFIED; N18.9 - CHRONIC KIDNEY DISEASE, UNSPECIFIED SNOMED Code(s): 519160403 (5) Diabetes Current Visit: No Status: Chronic Code(s): E11.9 - TYPE 2 DIABETES MELLITUS WITHOUT COMPLICATIONS SNOMED Code(s): 72996435 Plan: 1. Continue symptomatic and supportive care 2. Continue to Hold Eliquis 3. Daily CBC, transfuse per protocol 4. Agree with PRBC transfusion 5. Continue with hemodialysis per recommendations from nephrology 6. Continue with alcohol cessation 7. Patient may have renal diet, start clear liquid diet in the morning 8. Will start bowel prep tomorrow evening 9. Cancel EGD and colonoscopy for tomorrow, will tentatively scheduled for Thank you for this consultation, we will continue to follow. Dr. Monse Coffman I agree with the dictator's note, documented as a scribe by Sameera Alexander.
[2021-08-03] MEDS ORDERED: PEG 3350-NA SULF,BICARB,CL/KCL 4,000 ML BOTTLE PO ONE (15:00)
[2021-08-03 16:38] LABS: Glucose,Whole Blood 150 mg/dL (75-99)
[2021-08-03 19:55] LABS: Glucose,Whole Blood 128 mg/dL (75-99)
--- NOTE | 2021-08-03 20:32 | P.PN ---
Subjective Patient is a 65-year-old male with multiple medical problems multiple comorbidities was recently discharged from the hospital after he was treated for volume or note from chronic gastritis function and the cardiorenal syndrome. Patient was discharged to rehab facility 2 days into rehab related patient patient went home and started having shortness of breath volume overload diffuse anasarca and pedal edema. Patient is found to be in significant volume or lower chest x-ray showed bilateral pleural effusion although this appears to have improved compared to last admission when he had thoracentesis. Patient has significant lab abnormalities including creatinine going up to around 10 potassium 6.2 very low magnesium of 0.9 nephrology was consulted. As per nephrology patient will lead hemodialysis, consult to vascular surgery was placed for hemodialysis catheter placement and patient will be subsequently started on hemodialysis. Patient does have advanced COPD uses about 5 L of oxygen. 07/28/2021 Patient is seen and evaluated and follow-up has received hemodialysis catheter and is receiving hemodialysis today. Kidney functions improving and patient reports to producing more urine. Current creatinine is 7.6 today potassium is 5 .5 and sodium is 139. Blood sugars have been more manageable and will continue current regimen. Patient continues on 5 L via nasal cannula which is chronic for him. Nephrology following closely and will continue with dialysis daily at this time. Patient is also maintained on IV Lasix and will continue. Patient denies chest pain, shortness of breath, or palpitations. Patient is afebrile. No nausea or vomiting noted and patient is tolerating diet. subjective: resume the care of the pt today 07/29/2021 This is a pleasant 65 years old male with stage IV chronic kidney disease presents with fatigue and worsening kidney function requiring hemodialysis which is a started during this admission after a catheter placed in the right groin. He is hemodynamically stable, he is on 5 L per minute of oxygen but saturating 98-99%, we will try to titrate his oxygen down. No much dyspnea or cough and while he is lying flat in bed but he feels very weak all over. His been having recurrent nausea vomiting, mainly worked first of this morning but he is fully awake with no headache. No abdominal pain. He is hemodynamically stable, hemoglobin 7.4 with evidence of chronic anemia, also he is on ferrous sulfate once daily at home. This currently on home dose of liquids 2.5 and IV Lasix 60 mg twice daily. Ultrasound of the abdomen showing no hydronephrosis or nephrolithiasis. And chest x-ray showed small right pleural effusion with atelectasis. Also patient has chronic left leg wound secondary to a fall about 3 months ago. Patient refused to take the dressing off. We consulted once care. Patient is on Zofran already, we added Phenergan. We ordered a KUB. Also ask for PT OT evaluation. WOUND TEAM CONSULT 07/30/2021 Patient awake alert, no much tachypnea but he stayed in bed most of the time, he still at baseline of 4 L/m of oxygen. However patient reports coughing a lot and making a lot of phlegm, he said he has been diagnosed with pneumonia 2 weeks ago. Actually chest x-ray from yesterday showing bilateral infiltrate, I reviewed the chest x-ray by myself and it looks worse compared to admission despite starting him on a new hemodialysis and receiving Lasix for his CHF. Also we checked his pro-calcitonin and it is elevated at 0.5 for which is consistent with infection with this constellation of CHF, chest x-ray findings and elevated pro-calcitonin. Most likely and high suspicion for hospital acquired pneumonia and patient is a started on Zosyn last night. We going to repeat chest x-ray tomorrow morning. Bladder scan show minimal urine, Flomax was discontinued. Wound care R following the patient for his left foot wound. 07/31/2021 Patient seen in bed most of the time, physical therapy recommended rehab, I talked to him today about this recommendation and he is refusing now. He still on 4 L oxygen nasal cannula which looks like he is this is his baseline however he has coarse crepitation looks like it comes from secretion with decreased air entry on both sides, patient confirms to me he has history of COPD. However I would recommend he follow up with a pewter finisher as an outpatient. Repeat chest x-ray today showing no worsening infiltrate however it shows Similar multifocal airspace opacities. Correlate for congestive heart failure and/or diffuse airspace disease in the meantime we will keep him on Zosyn and check a pro-calcitonin tomorrow, if improvement we may consider oral antibiotic. However started on Solu-Medrol 60 mg 3 times a day today. He is kept on IV Lasix and hemodialysis I discussed the case with nephrology team and they recommended the permacath prior to discharge, discussed with bed side nurse to inform surgical vascular team. Workup showing anemia of chronic disease and he was started on arenasept by hvac technician residential. 08/01/2021 Patient clinically is doing well generally, he is breathing quietly, he is tolerating diet well, no bowel movement today Nephrology team on the case and plan for him to get the permacath by vascular surgery team hopefully tomorrow. Also his evidence of COPD exacerbation which is improving therefore Solu-Medrol our to 40 mg twice a day. Pro-calcitonin still elevated 0.68, currently on Zosyn, sputum cultures pending. However patient only having cough and phlegm which is pending as above. Saturation is 4-5 L/m which is his baseline. Rehab is recommended but patient was reluctant so far. 08/02/2021 Patient is lying in bed most of the time, his breathing is at baseline and is i mproving with less crepitation but he is coughing a lot . His oxygen requirement at baseline on 4 L/m which is his home dose. his hemoglobin dropped today to 5.7, his workup showing anemia of chronic disease despite being an IV and oral iron, workup showing anemia of chronic disease but cannot rule out GI bleed especially he's on liquids which is on hold today before going for procedure. Therefore we going to consult GI service in any way. Occult blood in his stool test is requested. Patient states he has 3- 4 loose bowel movements, we will check C. diff as well. No abdominal pain or vomiting. Patient is going for permacath placement today and hemodialysis tomorrow, he got hemodialysis this morning. Patient adamantly refusing to go to rehab despite recommendation for medical and nephrology team on several occasions. Patient and make his own decisions. 08/03/2021 Patient now wake and breathing comfortably at baseline, he is less coughing compared to yesterday after started on Robitussin D but today he wants to, more so I can bring stuff up out of his chest, therefore we change his Robitussin into when necessary dosing and he was informed. No chest pain or other symptoms. However there was some concerns of pulmonary congestion there for his colonoscopy/EGD for tomorrow is rescheduled until . He is placed on liquid diet therefore we lowered his Levemir form 25 units which is home dose down to 10 units tonight. His chest x-ray looks the same Reticulocyte count is 1.5 but he got one unit of transfusion. Currently hemoglobin is holding at 8.1, glucose control, magnesium normal at 2.2, sodium at 1:30 and he is saturating at 4-5 L/m which is home dose. Diarrhea stopped, occult blood in stool is negative and C. diff negative. 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, he supposed to follow up with his orthopedic doctor Wilmer however he was noncompliant, repeat left wrist x-ray looks the same, orthopedic input is appreciated they recommended no surgical intervention but follow-up outpatient while he is in splint Eliquis remains on hold after EGD/colonoscopy for sever anemia and possible GI bleed Objective - Vital Signs Vital signs: Vital Signs Temp 97.8 F 08/03/21 19:30 Pulse 82 08/03/21 19:30 Resp 19 08/03/21 19:30 BP 138/74 08/03/21 19:30 Pulse Ox 100 08/03/21 19:30 Intake & Output 08/03/21 08/03/21 08/04/21 06:59 18:59 06:59 Intake Total 300 Output Total 300 2000 Balance -300 -1700 Intake: Hemodialysis 300 Output: Urine 300 Hemodialysis 2000 Other: Voiding Method Urinal Urinal # Bowel Movements 1 - Exam -GENERAL: The patient is alert and oriented x3, not in any acute distress. Generally weak HEENT: Pupils are round and equally reacting to light. EOMI. No scleral icterus. No conjunctival pallor. Normocephalic, atraumatic. No pharyngeal erythema. No thyromegaly. CARDIOVASCULAR: S1 and S2 present. No murmurs, rubs, or gallops. PULMONARY: Chest is clear to auscultation, no wheezing or crackles. ABDOMEN: Soft, nontender, nondistended, normoactive bowel sounds. No palpable organomegaly. MUSCULOSKELETAL: No joint swelling or deformity. -EXTREMITIES: No cyanosis, clubbing, or pedal edema. Left leg wound with dressing. Right groin hemodialysis catheter is in place NEUROLOGICAL: Gross neurological examination did not reveal any focal deficits. SKIN: No rashes. no petechiae. - Labs CBC & Chem 7: 08/03/21 11:42 08/03/21 11:42 Labs: Abnormal Lab Results - Last 24 Hours (Table) 08/02/21 08/03/21 08/03/21 Range/Units 21:19 00:47 11:42 RBC 2.41 L 2.74 L (4.30-5.90) m/uL Hgb 7.1 L 8.1 L (13.0-17.5) gm/dL Hct 23.8 L 28.0 L (39.0-53.0) % MCV 102.2 H (80.0-100.0) fL MCHC 29.9 L 29.0 L (31.0-37.0) g/dL RDW 16.5 H 16.6 H (11.5-15.5) % Lymphocytes # 0.8 L (1.0-4.8) k/uL Sodium (137-145) mmol/L Chloride (98-107) mmol/L BUN (9-20) mg/dL Creatinine (0.66-1.25) mg/dL Glucose (74-99) mg/dL POC Glucose (mg/dL) 286 H (75-99) mg/dL AST (17-59) U/L Albumin (3.5-5.0) g/dL 08/03/21 08/03/21 08/03/21 Range/Units 11:42 16:34 19:54 RBC (4.30-5.90) m/uL Hgb (13.0-17.5) gm/dL Hct (39.0-53.0) % MCV (80.0-100.0) fL MCHC (31.0-37.0) g/dL RDW (11.5-15.5) % Lymphocytes # (1.0-4.8) k/uL Sodium 130 L (137-145) mmol/L Chloride 96 L (98-107) mmol/L BUN 39 H (9-20) mg/dL Creatinine 3.50 H (0.66-1.25) mg/dL Glucose 177 H (74-99) mg/dL POC Glucose (mg/dL) 150 H 128 H (75-99) mg/dL AST 12 L (17-59) U/L Albumin 3.2 L (3.5-5.0) g/dL Microbiology - Last 24 Hours (Table) 08/01/21 11:30 Gram Stain - Final Sputum Sputum Culture - Final Assessment and Plan Assessment: - Bilateral hospital acquired pneumonia is highly suspected - Acute kidney injury on stage IV CKD, started on edge D during this admission - acute diastolic congestive heart failure secondary to cardiorenal - anasarca secondary to cardiorenal syndrome as mentioned above. Hemodialysis daily per nephrology for now - Anemia of chronic disease, with recent troponin hemoglobin. Rule out GI bleed - Loose bowel movement, rule out C. diff colitis. -Hypomagnesemia magnesium will be replaced per Protocol -Chronic respiratory failure secondary to COPD , 5 L of oxygen at home. There is evidence of acute exacerbation -Possible pneumonia, hospital-acquired with elevated pro-calcitonin 0.5 -Hypertension -Hyperlipidemia -Hypothyroidism -History of recent fall and fracture to the left wrist with malunion noted -Paroxsymal atrial fibrillation presently rate controlled patient does have sick sinus syndrome history patient has a pacemaker -Type 2 diabetes mellitus Plan: This is a pleasant 65 years old male presents with acute kidney injury and CHF. Started on hemodialysis. Continue with Zosyn and check procalcitonin Continue with hemodialysis per nephrology team. Patient will need permacath, vascular surgery paged Continue with Lasix. Continue with home dose Eliquis 2.5 mg(on hold for possible bi bleed). Continue with insulin and ISS. Consult wound care Consult GI Labs and medication were reviewed.. Continue same treatment. Continue with symptomatic treatment. Resume home medication. Monitor lytes and vitals. DVT and GI prophylaxis. Further recommendation sas per clinical course of the patient DVT prophylaxis: Eliquis (On hold ) GI Prophylaxis: Ppi PT/OT: Recommended subacute rehab, social media marketing manager consult Prognosis is guarded
[2021-08-03] MEDS ORDERED: INSULIN DETEMIR (LEVEMIR) 100 UNIT/ML SYR SQ SCH ×2 (21:00)
[2021-08-03] MEDS: METOPROLOL SUCCINATE (ER) 50 MG TAB.ER.24H PO SCH (21:06)
[2021-08-04] MEDS ORDERED: FUROSEMIDE 10 MG/ML 10 ML VIAL IV STA (01:56)
[2021-08-04 05:30] LABS: Glucose,Whole Blood 75 mg/dL (75-99)
--- NOTE | 2021-08-04 06:00 | XR ---
EXAMINATION TYPE: XR chest 1V portable DATE OF EXAM: 08/04/2021 CLINICAL HISTORY: Difficulty breathing progress study. History of kidney failure. TECHNIQUE: Single AP portable upright view of the chest is obtained. COMPARISON: Chest x-ray from one day earlier and older studies FINDINGS: Stable large bore right internal jugular central venous catheter. Persistent mild cardiome price with dual lead pacemaker. Persistent small left greater than right pleural effusions and associa luci left greater than right bibasilar opacities favoring compressive atelectasis. Background chronic emphysematous change with persistent right upper lung increased opacity and new peripheral left mid l ezequiel reticular increased opacity. Osseous structures remain demineralized. IMPRESSION: New peripheral left lung edema and/or atypical infiltrates. Other findings stable with pa tchy right upper lung edema and/or atypical infiltrates, cardiomegaly with small left greater than ri ght pleural effusions and bibasilar atelectasis are all redemonstrated.
--- NOTE | 2021-08-04 06:19 | P.EN ---
A- team: Indication: Hypoxia Arrived on Scene to find: Patient undergoing dialysis with 2 L removed thus far with plan to remove 3 L total Vital signs reviewed: BP 110/74, SpO2 100% on 5L NC, P 98 Patient seen and examined at bedside. General: Chronically ill-appearing male, [no distress], [appears older than stated age] Derm: [warm], [dry] Head: [atraumatic], [normocephalic], [symmetric] Eyes: [EOMI], [no lid lag], [anicteric sclera] Mouth: [no lip lesion], [mucus membranes moist] Cardiovascular: [S1S2 reg], [no murmur], [positive posterior tibial pulse bilateral], Lungs: [CTA bilateral], [no rhonchi, no rales] , [no accessory muscle use] Abdominal: [soft], [ nontender to palpation], [no guarding], [no appreciable organomegaly] Ext: [no edema], [no contractures] Neuro: [no focal neuro deficits] Psych: Lethargic, answering questions and oriented to self Assessment: Hypoxic respiratory failure in setting of CKD requiring HD Plan: C/w HD as tolerated Notified: Nephrology and Primary care by OJHN
[2021-08-04] MEDS: LEVOTHYROXINE 25 MCG TAB PO SCH (06:34)
[2021-08-04 06:52] LABS: ALT 7 U/L (4-49); AST 14 U/L (17-59); African American GFR (CKD) 46 (>60 ml/min/1.73 sqM); Albumin 3.7 g/dL (3.5-5.0); Alkaline Phosphatase 68 U/L (38-126); Anion Gap 9 mmol/L; Anisocytosis Slight; Basophils % (A) 0 %; Blood Urea Nitrogen 15 mg/dL (9-20); Calcium 8.5 mg/dL (8.4-10.2); Carbon Dioxide 30 mmol/L (22-30); Chloride 99 mmol/L (98-107); Eosinophils % (A) 0 %; Globulin 3.7 g/dL; Glucose 73 mg/dL (74-99); HCT 33.3 % (39.0-53.0); Hypochromasia Marked; Lymphocytes # (A) 0.4 k/uL (1.0-4.8); Lymphocytes % (A) 3 %; MCH 29.9 pg (25.0-35.0); MCV 99.9 fL (80.0-100.0); Macrocytosis Slight; Mean Platelet Volume 7.6; Monocytes # (A) 0.7 k/uL (0-1.0); Monocytes % (A) 5 %; Neutrophils # (A) 13.3 k/uL (1.3-7.7); Neutrophils % (A) 91 %; Non-African American GFR(CKD) 40 (>60 ml/min/1.73 sqM); Platelet Count 316 k/uL (150-450); Poikilocytosis Slight; Potassium 3.2 mmol/L (3.5-5.1); RBC 3.33 m/uL (4.30-5.90); RDW 16.5 % (11.5-15.5); Sodium 138 mmol/L (137-145); Total Bilirubin 0.5 mg/dL (0.2-1.3); Total Protein 7.4 g/dL (6.3-8.2); WBC 14.6 k/uL (3.8-10.6)
[2021-08-04 07:38] LABS: ABG HCO3 32 mmol/L (21-25); ABG Oxygen Saturation 98.5 % (94-97); ABG PO2 167 mmHg (83-108); ABG TCO2 35 mmol/L (19-24); Allen Test Performed? Yes
[2021-08-04] MEDS ORDERED: ETOMIDATE 2 MG/ML 10 ML VIAL ONE (07:45)
[2021-08-04 07:48] LABS: Glucose,Whole Blood 85 mg/dL (75-99)
[2021-08-04 07:49] LABS: ABG PH 7.09 (7.35-7.45)
[2021-08-04 07:50] LABS: ABG PCO2 107 mmHg (35-45)
[2021-08-04] MEDS ORDERED: propofoL 100 ML IV ONE (07:54)
[2021-08-04] MEDS ORDERED: CISATRACURIUM 2 MG/ML 5 ML VIAL IV ONE (08:05)
--- NOTE | 2021-08-04 08:10 | P.EN ---
A- team: Indication: decreased responsiveness Arrived on Scene to find: Patient minimally responsive and poor respirations Patient seen and examined at bedside. He opens eyes to sternal rub and then closes eyes, when awake complains of shortness of breath. Vital signs reviewed General: non toxic, no distress, appears at stated age Derm: warm, dry Head: atraumatic, normocephalic, symmetric Eyes: EOMI, no lid lag, anicteric sclera Mouth: no lip lesion, mucus membranes moist Cardiovascular: S1S2 reg, no murmur, positive posterior tibial pulse bilateral, Lungs: + accessory muslce use, decreased airmovement wtih ineffective respirations and chest wall excersion Abdominal: soft, nontender to palpation, no guarding, no appreciable organo megaly Ext: no gross muscle atrophy, no edema, no contractures Neuro: eyes pinpoint, no cough and no gag to testing with tongue blade Psych: minimally responsive Assessment: Acute hyperapnic respiratory failure Respiratory acidosis ABG A fib ROHINI now HD dependent Plan: THEOLOGY TEACHER notified and came to bedside to intubate Urgent intubation Transfer to ICU Disposition: Transfer to ICU Notified: Dr. Farmer prior to intubation Dr. Johnson A Total of 32 minutes of critical care time was spent on the complex care of this patient.
[2021-08-04] MEDS ORDERED: NALOXONE 0.4 MG/ML 1 ML VIAL IV PRN (08:17)
[2021-08-04] MEDS: INSULIN ASPART (NovoLOG) 100 UNIT/ML VIAL SQ SCH ×4 (08:33→23:16)
[2021-08-04] MEDS: SODIUM CHLORIDE 0.9% 1,000 ML IV SCH (08:39)
[2021-08-04] MEDS: NOREPINEPHRINE 8 MG in SODIUM CHLORIDE 0.9% 250 ML IV SCH ×2 (08:49→21:05)
[2021-08-04 09:07] LABS: ABG Base Excess 3.2 mmol/L; ABG HCO3 30 mmol/L (21-25); ABG Oxygen Saturation 98.3 % (94-97); ABG PCO2 67 mmHg (35-45); ABG PH 7.26 (7.35-7.45); ABG PO2 >400 mmHg (83-108); ABG TCO2 32 mmol/L (19-24)
[2021-08-04 09:09] LABS: Allen Test Performed? no
--- NOTE | 2021-08-04 09:31 | XR ---
EXAMINATION TYPE: XR chest 1V portable DATE OF EXAM: 08/04/2021 COMPARISON: Chest x-ray dated 08/04/2021 HISTORY: Postintubation TECHNIQUE: Single frontal view of the chest is obtained. FINDINGS: Endotracheal tube and NG tube are overlying appropriate positions. Right jugular central v enous catheter is stable. Pacemaker is unchanged. Airspace disease is present in the left upper lobe. Blunting of the costophrenic angles is again noted. No evident pneumothorax. Patient is rotated. Car diac mediastinal silhouette is stable accounting for differences in technique. The aorta is dense. IMPRESSION: Correlate for pneumonia, difficult to exclude basilar effusions, edema, atelectasis.
--- NOTE | 2021-08-04 09:38 | PCN ---
PROCEDURE NOTE PROCEDURE: Placement of a right femoral vein triple-lumen catheter. OPERATORS: 1. Dr. Farmer. 2. Dr. Hair. PREOPERATIVE DIAGNOSIS: Administration of fluids and pressors. POSTOPERATIVE DIAGNOSIS: Administration of fluids and pressors. PROCEDURE DESCRIPTION: A universal time-out was completed verifying correct patient, procedure, site, positioning, and implant(s) or special equipment if applicable. The patient was placed in a dependent position appropriate for triple-lumen catheter placement based on the vein to be cannulated. The patient's right groin was prepped and draped in sterile fashion. 1% Lidocaine was used to anesthetize the surrounding skin area. A triple-lumen 9F Cordis catheter was introduced into the right femoral vein using Seldinger technique. The catheter was threaded smoothly over the guide wire and appropriate blood return was obtained. There was good blood return from all three ports. Each lumen of the catheter was evacuated of air and flushed with sterile saline. The catheter was then sutured in place to the skin and a sterile dressing applied by the nurse. Perfusion to the extremity distal to the point of catheter insertion was checked and found to be adequate. There was no immediate complication. PROCEDURE: Placement of right femoral arterial line. OPERATORS: 1. Dr. Farmer. 2. Dr. Hair. PREOPERATIVE DIAGNOSIS: Frequent blood draws and blood gas monitoring. POSTOPERATIVE DIAGNOSIS: Frequent blood draws and blood gas monitoring. PROCEDURE DESCRIPTION: A universal time-out was completed verifying correct patient, procedure, site, positioning, and implant(s) or special equipment if applicable. Martin's test was performed to ensure adequate perfusion. The patient's right groin was prepped and draped in sterile fashion. 1% Lidocaine was used to anesthetize the area. An 18G Arrow arterial line was introduced into the right femoral artery. The catheter was threaded over the guide wire and the needle was removed with appropriate pulsatile blood return. There was good wave form. Blood loss was minimal. The catheter was then sutured in place to the skin and a sterile dressing applied by the nurse. Perfusion to the extremity distal to the point of catheter insertion was checked and found to be adequate. The patient tolerated the procedure well and there were no immediate complications. The patient tolerated procedure well without complications. MMODL / IJN: [id number] /
--- NOTE | 2021-08-04 10:12 | P.CNPUL ---
History of Present Illness Consult date: 08/04/21 Requesting physician: Vel Wilburn Reason for consult: dyspnea, hypoxemia, pneumonia, pleural effusion, abnormal CXR/CT Chief complaint: Respiratory failure. History of present illness: Pulmonary consultation dated 08/04/2021. 65-year-old male who's been here since July 26. We are just asked to see him today. Before we actually saw him, he apparently was having hemodialysis, for fluid overload, and, had an uneventful hemodialysis run. Subsequent to that, he apparently developed respiratory distress, and, I was called by the hospital doctor, who thought the patient could not protect his airway, and was having impending respiratory arrest. I asked her to call anesthesia to have been intubated, and transferred down to the intensive care unit. In the ICU, we placed a right femoral triple-lumen catheter, and a rate femoral artery arterial line. We made some adjustments to his ventilator, drop the FiO2 down to 50%, and also increasing the rate from 20 to 26 breaths per minute. In addition, the patient was placed on propofol for sedation, and also norepinephrine for blood pressure support. He initially was seen back on July 26 in the emergency room. He came in with complaints of fluid retention, shortness of breath, and leg swelling. He also had a recent history of injury to the left forearm, I believe a fracture to one of the bones in the left forearm. We had not been consulted before today, apparently for an abnormal chest x-ray showing some infiltrates in the left mid lung. Unfortunately, we could not talk to him prior to intubation, to get a sense of what was going on with him. He has a history of atrial fibrillation, CHF, COPD, diabetes, DVT, GERD, hyperlipidemia, hypertension, pneumonia, end-stage renal disease, and sleep apnea, among other things. He is quite an extensive medical history, as can be seen on the H&P/ER note. White count 14.6, hemoglobin 10, hematocrit 33.3, and platelet count 316,000. Initial blood gases done before transfer, showed a pO2 167 a pCO2 of 107 and a pH is 7.09. Blood gases after intubation, showed a pO2 that was greater than 400, pCO2 that was 67, and a pH of 7.26. The vent settings at that time included AC mode, rate 20, tidal volume 450, FiO2 100%, PEEP of 5. After the post intubation blood gases were obtained, the rate on the ventilator was increased to 26, and the FiO2 was dropped down to 50%. Sodium 138, potassium 3.4, chlorides 99, CO2 30, anion gap 9, BUN 15, creatinine 1.77. Chest x-ray shows some diffuse interstitial changes, bilateral pleural effusions, and some infiltrate in the left midlung. Review of Systems REVIEW OF SYSTEMS: CONSTITUTIONAL: [Negative.] NEUROLOGIC: [ Negative.] HEENT: [ Negative.] CARDIAC: [Negative.] PULMONARY: Apparently, shortness of breath, with worsening respiratory status, which required intubation and mechanical ventilation. GI: [Negative.] : [Negative.] RHEUMATOLOGIC: [ Negative.] IMMUNOLOGIC: [ Negative.] ENDOCRINE: [Negative. ] DERMATOLOGIC: [Negative.] Past Medical History Past Medical History: Atrial Fibrillation, Heart Failure, COPD, Diabetes Mellitus, Deep Vein Thrombosis (DVT), GERD/Reflux, Hyperlipidemia, Hypertension, Pneumonia, Renal Disease, Respiratory Disorder, Skin Disorder, Sleep Apnea/CPAP/BIPAP, Vascular Disorder Additional Past Medical History / Comment(s): Pt recently admitted to [facility] on 06/24/21 with acute/chronic kidney disease, acute on chronic hypoxic respiratory distress, acute CHF, bilateral pleural effusion/R side worse and had thoracentesis, sputum with pseudomonos aeraginosis, hemotysis. Other hx: Chronic hypoxic respiratory failure and the patient OXYGEN dependent 5 L, previous history of left-sided pneumothorax requiring a Thoravent insertion, 2015 covid, IDDM type II, neuropathy bilateral feet, paroxysmal AFIB, SSS with pacer, nonischemic cardiomyopathy, past alcoholism/DTs, diverticulosis, obstuc tive sleep apnea but no Cpap since wt loss, sinusitis, elevated LFTs, BPH, CKD stag III, DVT R leg, gout, hypothyroid, hypomagnesemia, hypoalbuminemia, anemia, protein calorie malnutrition, PVD, current sores bottom of L foot, left wrist fracture History of Any Multi-Drug Resistant Organisms: None Reported Past Surgical History: Appendectomy, Cholecystectomy, Heart Catheterization, Pacemaker Additional Past Surgical History / Comment(s): Partial liver removed d/t adhesions, colonoscopies, bilateral eyes blepharoplasties, pacer Past Anesthesia/Blood Transfusion Reactions: Postoperative Nausea & Vomiting (PONV) Additional Past Anesthesia/Blood Transfusion Reaction / Comment(s): Pt states he has had PONV with gas only. Type of Cardiac Device: Permanent Pacemaker Device Placement Date:: 2017 Smoking Status: Former smoker - Past Family History Mother Family Medical History: Thyroid Disorder Additional Family Medical History / Comment(s): . Father Additional Family Medical History / Comment(s): Father of diverticulitis,peritonitis at the age of 35yrs. Medications and Allergies Home Medications Medication Instructions Recorded Confirmed Type Tamsulosin [Flomax] 0.4 mg PO HS 06/23/16 07/27/21 History ondansetron HCL [Zofran] 4 mg PO Q8H PRN 09/30/18 07/26/21 History Apixaban [Eliquis] 2.5 mg PO BID 01/11/19 07/26/21 History Insulin Glargine,Hum.rec.anlog 25 unit SQ HS@199908/02/20 07/26/21 History [Lantus Solostar Pen] Levothyroxine Sodium [Synthroid] 25 mcg PO DAILY@0700 08/02/20 07/26/21 History Ipratropium/Albuter 20-100Mcg 1 puff INHALATION RT-QID 05/17/21 07/26/21 History [Combivent Respimat 20-100Mcg Inhaler] Lidocaine 5% Patch [Lidoderm 5% 1 patch TOPICAL DAILY@1600 PRN 05/17/21 07/26/21 History Patch] Midodrine HCl [ProAmatine] 10 mg PO TID 05/17/21 07/26/21 History allopurinoL [Zyloprim] 200 mg PO DAILY@1400 05/17/21 07/26/21 History Ascorbic Acid [Vitamin C] 1,000 mg PO BID@0800,1400 06/24/21 07/26/21 History Budesonide [Pulmicort] 0.5 mg INHALATION RT-BID 06/24/21 07/26/21 History Cholecalciferol [Vitamin D3 (25 25 mcg PO DAILY@0800 06/24/21 07/26/21 History Mcg = 1000 Iu)] Dicyclomine [Bentyl] 20 mg PO Q8H PRN 06/24/21 07/26/21 History Ferrous Sulfate [Iron (65 MG 325 mg PO DAILY@0800 06/24/21 07/26/21 History Elemental)] Fluticasone/Vilanterol [Breo 1 puff INHALATION RT-DAILY@0600 06/24/21 07/26/21 History Ellipta 200-25 Mcg Inhaler] INSULIN ASPART (NovoLOG) [NovoLOG See Protocol SQ ACHS 06/24/21 07/26/21 History (formulary)] Ipratropium-Albuterol Nebulize 3 ml INHALATION RT-Q4H PRN 06/24/21 07/26/21 History [Duoneb 0.5 mg-3 mg/3 ml Soln] Loperamide HCl [Loperamide] 2 mg PO Q6H PRN 06/24/21 07/26/21 History Metoprolol Succinate (ER) [Toprol 50 mg PO HS@199906/24/21 07/26/21 History XL] Torsemide [Demadex] 40 mg PO DAILY@0700 06/24/21 07/26/21 History Artificial Tears-Hypromellose 2 drops BOTH EYES TID PRN ml 07/07/21 07/26/21 Rx [Artificial Tear Drops] Darbepoetin Hubert [Aranesp] 60 mcg SQ Q7D each 07/07/21 07/26/21 Rx Ipratropium-Albuterol Nebulize 3 ml INHALATION RT-QID ml 07/07/21 07/26/21 Rx [Duoneb 0.5 mg-3 mg/3 ml Soln] Pantoprazole [Protonix] 40 mg PO AC-BRKFST tab 07/07/21 07/26/21 Rx diphenhydrAMINE [Benadryl] 25 mg PO TID PRN cap 07/07/21 07/26/21 Rx Allergies Allergy/AdvReac Type Severity Reaction Status Date / Time codeine Allergy Unknown Verified 07/26/21 20:10 Physical Exam Osteopathic Statement: *. No significant issues noted on an osteopathic structural exam other than those noted in the History and Physical/Consult. Vitals: Vital Signs Temp Pulse Pulse Resp BP BP Pulse Ox 08/04/21 09:00 76 24 121/72 100 08/04/21 02:00 98.0 F 98 20 139/74 100 08/04/21 00:45 92 08/04/21 00:33 97 97 08/03/21 22:32 132/65 03/29/22 21:05 86 08/03/21 20:55 85 100 08/03/21 19:30 97.8 F 82 19 138/74 100 08/03/21 18:05 97.8 F 71 20 125/71 08/03/21 16:05 70 08/03/21 15:59 74 08/03/21 14:00 97.5 F L 70 18 145/85 100 08/03/21 10:26 63 18 Intake and Output 08/03/21 08/04/21 08/04/21 22:59 06:59 14:59 Intake Total 300 10.192 Output Total 2100 Balance -1800 10.192 Intake: Intake, IV Titration 10.192 Amount propofoL 1,000 mg In 10.192 Empty Bag 1 bag @ 5 MCG/ KG/MIN 2.898 mls/hr IV . Q24H [facility] Rx#:[id number] Hemodialysis 300 Output: Urine 100 Hemodialysis 2000 ABP, PAP, CO, CI - Last 8 Hours Arterial Blood Pressure 126/57 No acute distress, sedated and paralyzed, with an orally placed endotracheal tube and NG tube. The patient is chronically ill appearing. HEENT examination is grossly unremarkable. Neck supple. Full range of motion. No adenopathy thyromegaly or neck vein dist ention. Cardiovascular examination reveals regular rhythm rate. S1-S2 normal. No S3 or S4. No discernible murmur noted. Heart rate 76 bpm. Lungs reveal coarse bilateral rhonchi, and bilateral crackles. No wheezes. Breath sounds equal bilaterally. Abdomen soft, without bowel sounds. Extremities are intact. No cyanosis clubbing or edema. Skin is without rash or lesion. Neurologic examination cannot be properly assessed. Results - Laboratory Findings CBC and BMP: 08/04/21 06:20 08/04/21 09:05 ABG ABG pH 7.26 (7.35-7.45) L 08/04/21 09:05 ABG pCO2 67 mmHg (35-45) H 08/04/21 09:05 ABG pO2 >400 mmHg (83-108) H 08/04/21 09:05 ABG O2 Saturation 98.3 % (94-97) H 08/04/21 09:05 PT/INR, D-dimer PT 11.7 sec (9.0-12.0) 07/26/21 16:18 INR 1.1 (<1.2) 07/26/21 16:18 Abnormal lab findings: Abnormal Labs 07/26/21 07/26/21 07/27/21 16:18 16:18 07:32 WBC RBC 2.47 L Hgb 7.4 L Hct 24.1 L MCV MCHC 30.5 L RDW 17.1 H Neutrophils # 8.7 H Lymphocytes # 0.5 L Monocytes # Eosinophils # ABG pH ABG pCO2 ABG pO2 ABG HCO3 ABG Total CO2 ABG O2 Saturation Sodium Potassium 6.2 H* Chloride Carbon Dioxide 18 L BUN 189 H* Creatinine 9.83 H* Est GFR (CKD-EPI)AfAm Est GFR (CKD-EPI)NonAf Glucose POC Glucose (mg/dL) 123 H Calcium 8.1 L Phosphorus Magnesium 0.9 L* Iron TIBC % Saturation Transferrin AST 15 L Total Protein 6.2 L Albumin 3.2 L Procalcitonin Urine Protein Urine Blood Ur Leukocyte Esterase Urine RBC Urine WBC Urine Bacteria Urine Yeast (Budding) Complement C3 Crossmatch 07/27/21 07/27/21 07/27/21 10:42 10:42 17:51 WBC RBC Hgb Hct MCV MCHC RDW Neutrophils # Lymphocytes # Monocytes # Eosinophils # ABG pH ABG pCO2 ABG pO2 ABG HCO3 ABG Total CO2 ABG O2 Saturation Sodium 136 L Potassium 5.9 H Chloride Carbon Dioxide 20 L BUN 182 H* Creatinine 10.22 H* Est GFR (CKD-EPI)AfAm Est GFR (CKD-EPI)NonAf Glucose 114 H POC Glucose (mg/dL) 110 H Calcium 7.9 L Phosphorus 7.3 H Magnesium Iron TIBC % Saturation Transferrin AST Total Protein Albumin Procalcitonin Urine Protein Urine Blood Ur Leukocyte Esterase Urine RBC Urine WBC Urine Bacteria Urine Yeast (Budding) Complement C3 Crossmatch 07/27/21 07/27/21 07/28/21 21:00 23:50 02:49 WBC RBC Hgb Hct MCV MCHC RDW Neutrophils # Lymphocytes # Monocytes # Eosinophils # ABG pH ABG pCO2 ABG pO2 ABG HCO3 ABG Total CO2 ABG O2 Saturation Sodium Potassium Chloride Carbon Dioxide BUN Creatinine Est GFR (CKD-EPI)AfAm Est GFR (CKD-EPI)NonAf Glucose POC Glucose (mg/dL) 116 H 147 H Calcium Phosphorus Magnesium Iron TIBC % Saturation Transferrin AST Total Protein Albumin Procalcitonin Urine Protein Trace H Urine Blood Moderate H Ur Leukocyte Esterase Trace H Urine RBC >182 H Urine WBC 11 H Urine Bacteria Rare H Urine Yeast (Budding) Occasional H Complement C3 Crossmatch 07/28/21 07/28/21 07/28/21 06:51 07:10 11:53 WBC RBC Hgb Hct MCV MCHC RDW Neutrophils # Lymphocytes # Monocytes # Eosinophils # ABG pH ABG pCO2 ABG pO2 ABG HCO3 ABG Total CO2 ABG O2 Saturation Sodium Potassium Chloride Carbon Dioxide BUN 118.0 H* Creatinine 7.6 H* Est GFR (CKD-EPI)AfAm 7.9 L Est GFR (CKD-EPI)NonAf 6.8 L Glucose 141 H POC Glucose (mg/dL) 146 H 162 H Calcium 8.5 L Phosphorus Magnesium Iron TIBC % Saturation Transferrin AST Total Protein Albumin Procalcitonin Urine Protein Urine Blood Ur Leukocyte Esterase Urine RBC Urine WBC Urine Bacteria Urine Yeast (Budding) Complement C3 Crossmatch 07/28/21 07/28/21 07/28/21 12:59 15:00 16:46 WBC RBC Hgb Hct MCV MCHC RDW Neutrophils # Lymphocytes # Monocytes # Eosinophils # ABG pH ABG pCO2 ABG pO2 ABG HCO3 ABG Total CO2 ABG O2 Saturation Sodium Potassium Chloride Carbon Dioxide BUN Creatinine Est GFR (CKD-EPI)AfAm Est GFR (CKD-EPI)NonAf Glucose POC Glucose (mg/dL) 153 H Calcium Phosphorus Magnesium Iron TIBC % Saturation Transferrin AST Total Protein Albumin Procalcitonin 0.54 H Urine Protein Urine Blood Ur Leukocyte Esterase Urine RBC Urine WBC Urine Bacteria Urine Yeast (Budding) Complement C3 78.8 L Crossmatch 07/28/21 07/29/21 07/30/21 20:05 20:18 09:35 WBC RBC Hgb Hct MCV MCHC RDW Neutrophils # Lymphocytes # Monocytes # Eosinophils # ABG pH ABG pCO2 ABG pO2 ABG HCO3 ABG Total CO2 ABG O2 Saturation Sodium 135 L Potassium Chloride Carbon Dioxide BUN 38 H Creatinine 4.01 H Est GFR (CKD-EPI)AfAm Est GFR (CKD-EPI)NonAf Glucose POC Glucose (mg/dL) 228 H 218 H Calcium 8.3 L Phosphorus Magnesium Iron TIBC % Saturation Transferrin AST Total Protein Albumin Procalcitonin Urine Protein Urine Blood Ur Leukocyte Esterase Urine RBC Urine WBC Urine Bacteria Urine Yeast (Budding) Complement C3 Crossmatch 07/31/21 07/31/21 07/31/21 10:32 10:40 10:53 WBC RBC Hgb Hct MCV MCHC RDW Neutrophils # Lymphocytes # Monocytes # Eosinophils # ABG pH ABG pCO2 ABG pO2 ABG HCO3 ABG Total CO2 ABG O2 Saturation Sodium Potassium Chloride Carbon Dioxide BUN Creatinine Est GFR (CKD-EPI)AfAm Est GFR (CKD-EPI)NonAf Glucose POC Glucose (mg/dL) 57 L 59 L Calcium Phosphorus Magnesium Iron 25 L TIBC 168 L % Saturation 14.94 L Transferrin 120.0 L AST Total Protein Albumin Procalcitonin Urine Protein Urine Blood Ur Leukocyte Esterase Urine RBC Urine WBC Urine Bacteria Urine Yeast (Budding) Complement C3 Crossmatch 07/31/21 07/31/21 07/31/21 11:09 11:11 16:43 WBC RBC Hgb Hct MCV MCHC RDW Neutrophils # Lymphocytes # Monocytes # Eosinophils # ABG pH ABG pCO2 ABG pO2 ABG HCO3 ABG Total CO2 ABG O2 Saturation Sodium Potassium Chloride Carbon Dioxide BUN Creatinine Est GFR (CKD-EPI)AfAm Est GFR (CKD-EPI)NonAf Glucose POC Glucose (mg/dL) 57 L 74 L 359 H Calcium Phosphorus Magnesium Iron TIBC % Saturation Transferrin AST Total Protein Albumin Procalcitonin Urine Protein Urine Blood Ur Leukocyte Esterase Urine RBC Urine WBC Urine Bacteria Urine Yeast (Budding) Complement C3 Crossmatch 07/31/21 08/01/21 08/01/21 20:27 05:31 05:31 WBC 3.11 L RBC 2.12 L Hgb 5.9 L* Hct 20.8 L MCV 98.1 H MCHC 28.4 L RDW 16.7 H Neutrophils # Lymphocytes # 0.15 L Monocytes # 0.09 L Eosinophils # 0 L ABG pH ABG pCO2 ABG pO2 ABG HCO3 ABG Total CO2 ABG O2 Saturation Sodium Potassium Chloride Carbon Dioxide BUN Creatinine Est GFR (CKD-EPI)AfAm Est GFR (CKD-EPI)NonAf Glucose POC Glucose (mg/dL) 361 H Calcium Phosphorus Magnesium Iron TIBC % Saturation Transferrin AST Total Protein Albumin Procalcitonin 0.68 H Urine Protein Urine Blood Ur Leukocyte Esterase Urine RBC Urine WBC Urine Bacteria Urine Yeast (Budding) Complement C3 Crossmatch 08/01/21 08/01/21 08/01/21 07:00 15:39 16:50 WBC RBC 2.31 L Hgb 6.8 L* Hct 23.2 L MCV 100.6 H MCHC 29.1 L RDW 16.6 H Neutrophils # Lymphocytes # Monocytes # Eosinophils # ABG pH ABG pCO2 ABG pO2 ABG HCO3 ABG Total CO2 ABG O2 Saturation Sodium Potassium Chloride Carbon Dioxide BUN Creatinine Est GFR (CKD-EPI)AfAm Est GFR (CKD-EPI)NonAf Glucose POC Glucose (mg/dL) 343 H 335 H Calcium Phosphorus Magnesium Iron TIBC % Saturation Transferrin AST Total Protein Albumin Procalcitonin Urine Protein Urine Blood Ur Leukocyte Esterase Urine RBC Urine WBC Urine Bacteria Urine Yeast (Budding) Complement C3 Crossmatch 08/01/21 08/02/21 08/02/21 20:18 05:25 05:25 WBC RBC 2.01 L Hgb 5.7 L* Hct 19.8 L* MCV 98.5 H MCHC 28.8 L RDW 16.5 H Neutrophils # Lymphocytes # 0.39 L Monocytes # Eosinophils # 0 L ABG pH ABG pCO2 ABG pO2 ABG HCO3 ABG Total CO2 ABG O2 Saturation Sodium 133 L Potassium Chloride Carbon Dioxide BUN 54 H Creatinine 5.10 H Est GFR (CKD-EPI)AfAm Est GFR (CKD-EPI)NonAf Glucose 243 H POC Glucose (mg/dL) 303 H Calcium Phosphorus 5.1 H Magnesium 1.5 L Iron TIBC % Saturation Transferrin AST Total Protein Albumin Procalcitonin Urine Protein Urine Blood Ur Leukocyte Esterase Urine RBC Urine WBC Urine Bacteria Urine Yeast (Budding) Complement C3 Crossmatch 08/02/21 08/02/21 08/02/21 06:50 11:00 11:15 WBC RBC Hgb Hct MCV MCHC RDW Neutrophils # Lymphocytes # Monocytes # Eosinophils # ABG pH ABG pCO2 ABG pO2 ABG HCO3 ABG Total CO2 ABG O2 Saturation Sodium Potassium Chloride Carbon Dioxide BUN Creatinine Est GFR (CKD-EPI)AfAm Est GFR (CKD-EPI)NonAf Glucose POC Glucose (mg/dL) 294 H 169 H Calcium Phosphorus Magnesium Iron TIBC % Saturation Transferrin AST Total Protein Albumin Procalcitonin Urine Protein Urine Blood Ur Leukocyte Esterase Urine RBC Urine WBC Urine Bacteria Urine Yeast (Budding) Complement C3 Crossmatch See Detail 08/02/21 08/02/21 08/03/21 15:58 21:19 00:47 WBC RBC 2.41 L Hgb 7.1 L Hct 23.8 L MCV MCHC 29.9 L RDW 16.5 H Neutrophils # Lymphocytes # Monocytes # Eosinophils # ABG pH ABG pCO2 ABG pO2 ABG HCO3 ABG Total CO2 ABG O2 Saturation Sodium Potassium Chloride Carbon Dioxide BUN Creatinine Est GFR (CKD-EPI)AfAm Est GFR (CKD-EPI)NonAf Glucose POC Glucose (mg/dL) 213 H 286 H Calcium Phosphorus Magnesium Iron TIBC % Saturation Transferrin AST Total Protein Albumin Procalcitonin Urine Protein Urine Blood Ur Leukocyte Esterase Urine RBC Urine WBC Urine Bacteria Urine Yeast (Budding) Complement C3 Crossmatch 08/03/21 08/03/21 08/03/21 11:42 11:42 11:42 WBC RBC 2.74 L Hgb 8.1 L Hct 28.0 L MCV 102.2 H MCHC 29.0 L RDW 16.6 H Neutrophils # Lymphocytes # 0.8 L Monocytes # Eosinophils # ABG pH ABG pCO2 ABG pO2 ABG HCO3 ABG Total CO2 ABG O2 Saturation Sodium 130 L Potassium Chloride 96 L Carbon Dioxide BUN 39 H Creatinine 3.50 H Est GFR (CKD-EPI)AfAm Est GFR (CKD-EPI)NonAf Glucose 177 H POC Glucose (mg/dL) Calcium Phosphorus Magnesium Iron TIBC % Saturation Transferrin AST 12 L Total Protein Albumin 3.2 L Procalcitonin 0.38 H Urine Protein Urine Blood Ur Leukocyte Esterase Urine RBC Urine WBC Urine Bacteria Urine Yeast (Budding) Complement C3 Crossmatch 08/03/21 08/03/21 08/04/21 16:34 19:54 06:20 WBC 14.6 H RBC 3.33 L Hgb 10.0 L D Hct 33.3 L MCV MCHC 30.0 L RDW 16.5 H Neutrophils # 13.3 H Lymphocytes # 0.4 L Monocytes # Eosinophils # ABG pH ABG pCO2 ABG pO2 ABG HCO3 ABG Total CO2 ABG O2 Saturation Sodium Potassium Chloride Carbon Dioxide BUN Creatinine Est GFR (CKD-EPI)AfAm Est GFR (CKD-EPI)NonAf Glucose POC Glucose (mg/dL) 150 H 128 H Calcium Phosphorus Magnesium Iron TIBC % Saturation Transferrin AST Total Protein Albumin Procalcitonin Urine Protein Urine Blood Ur Leukocyte Esterase Urine RBC Urine WBC Urine Bacteria Urine Yeast (Budding) Complement C3 Crossmatch 08/04/21 08/04/21 08/04/21 06:20 07:34 09:05 WBC RBC Hgb Hct MCV MCHC RDW Neutrophils # Lymphocytes # Monocytes # Eosinophils # ABG pH 7.09 L* 7.26 L ABG pCO2 107 H* 67 H ABG pO2 167 H >400 H ABG HCO3 32 H 30 H ABG Total CO2 35 H 32 H ABG O2 Saturation 98.5 H 98.3 H Sodium Potassium 3.2 L Chloride Carbon Dioxide BUN Creatinine 1.77 H Est GFR (CKD-EPI)AfAm Est GFR (CKD-EPI)NonAf Glucose 73 L POC Glucose (mg/dL) Calcium Phosphorus Magnesium Iron TIBC % Saturation Transferrin AST 14 L Total Protein Albumin Procalcitonin Urine Protein Urine Blood Ur Leukocyte Esterase Urine RBC Urine WBC Urine Bacteria Urine Yeast (Budding) Complement C3 Crossmatch 08/04/21 09:05 WBC RBC Hgb Hct MCV MCHC RDW Neutrophils # Lymphocytes # Monocytes # Eosinophils # ABG pH ABG pCO2 ABG pO2 ABG HCO3 ABG Total CO2 ABG O2 Saturation Sodium Potassium 3.4 L Chloride Carbon Dioxide BUN Creatinine Est GFR (CKD-EPI)AfAm Est GFR (CKD-EPI)NonAf Glucose POC Glucose (mg/dL) Calcium Phosphorus Magnesium Iron TIBC % Saturation Transferrin AST Total Protein Albumin Procalcitonin Urine Protein Urine Blood Ur Leukocyte Esterase Urine RBC Urine WBC Urine Bacteria Urine Yeast (Budding) Complement C3 Crossmatch - Diagnostic Findings Chest x-ray: image reviewed Assessment and Plan Assessment: Acute hypoxemic respiratory failure, requiring intubation and mechanical ventilation on 08/04/2021. Chronic kidney disease, requiring hemodialysis. History of chronic atrial fibrillation. History of CHF. History of COPD. History of diabetes mellitus. History of DVT. History of gastroesophageal reflux disease. History of hyperlipidemia. History of hypertension. History of sleep apnea syndrome. History of pneumonia. Chronic hypoxemic respiratory failure. Multiple comorbidities. Plan: Plan dated 08/04/2021. The patient was intubated upon the floor, and transferred down to the intensive care unit, room 252. A right femoral triple-lumen catheter was placed, as well as a right femoral artery arterial line. The patient was started on propofol for sedation. In addition, the patient will be given norepinephrine for blood pressure support. The FiO2 was turned down from 100%, down to 50%. I told the nurse to have dietary start tube feedings today. Additional recommendations and suggestions are forthcoming. Labs, x-rays, and medications are reviewed. Unnecessary medications will be discontinued. Prognosis is guarded. Continue to follow the patient and make recommendations where appropriate. Time with Patient: Greater than 30
[2021-08-04] MEDS: ASCORBIC ACID 500 MG TAB PO SCH ×2 (10:16→20:32)
[2021-08-04] MEDS: CHOLECALCIFEROL 25 MCG (1000 IU) TABLET PO SCH (10:16)
[2021-08-04] MEDS: PIPERACILLIN-TAZOBACTAM 3.375 GM in SODIUM CHLORIDE 0.9% 100 ML IVPB SCH ×2 (10:20→17:39)
[2021-08-04] MEDS: CHLORHEXIDINE GLUCONATE 15 ML CUP MUCOUS MEM SCH ×2 (10:20→20:32)
[2021-08-04] MEDS: PANTOPRAZOLE 40 MG/10 ML VIAL IV SCH (10:20)
[2021-08-04] MEDS: BUDESONIDE 1 MG/2 ML NEBU INHALATION SCH ×2 (10:36→20:34)
[2021-08-04] MEDS: FORMOTEROL FUMARATE 20 MCG/2 ML NEBU INHALATION SCH ×2 (10:36→20:34)
[2021-08-04] MEDS: SYMBICORT 160-4.5 MCG INHALER INHALATION SCH (10:38)
[2021-08-04] MEDS: BUDESONIDE 0.5 MG/2 ML NEBU INHALATION SCH (10:38)
[2021-08-04] MEDS: IPRATROPIUM-ALBUTEROL 3 ML NEB INHALATION SCH ×5 (10:39→23:26)
[2021-08-04 12:15] LABS: Glucose,Whole Blood 91 mg/dL (75-99)
--- NOTE | 2021-08-04 12:19 | P.PN ---
Subjective Patient is seen for follow-up for acute kidney injury and top of chronic kidney disease Patient has underlying CK D stage IV with recent worsening of his renal function. Patient has underlying chronic kidney disease with recent worsening of his renal function since May 2021. Creatinine increased from 1.4 on 05/24/[address] up to 3.1 on 07/05/2021. Patient had acute kidney injury during his hospitalization last month and serum creatinine on discharge was 3.0. Acute kidney injury was mostly cardiorenal. Patient was diuresed and discharged on torsemide. He was admitted to the hospital now with a creatinine of around 10.2. Patient was started on dialysis on 07/27/2021. Patient has been treated for volume overload. Patient was dialyzed last night for volume overload. He had about 2 L of fluid removed around 6 PM. Later during the night patient develop worsening shortness of breath. 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 We had another 2 L of ultrafiltration. Patient's blood pressure was fairly stable. However he became unresponsive. Blood gases showed hypercapnic Respiratory failure. Patient was eventually intubated and transferred to the ICU. He is currently on the vent FiO2 at 100%. Patient is on levo fed around [address] of the head has been ordered. Chest x-ray shows small pleural effusions and interstitial infiltrates. No fever noted Objective - Vital Signs Vital signs: Vital Signs Temp 98.0 F 08/04/21 02:00 Pulse 81 08/04/21 11:18 Resp 26 H 08/04/21 11:00 BP 114/69 08/04/21 11:00 Pulse Ox 100 08/04/21 11:00 Intake & Output 08/03/21 08/04/21 08/04/21 18:59 06:59 18:59 Intake Total 300 126.563 Output Total 2100 14 Balance -1800 112.563 Intake: Intake, IV Titration 126.563 Amount Norepinephrine 8 mg In 13.087 Sodium Chloride 0.9% 250 ml @ 0.05 MCG/KG/MIN 9. 348 mls/hr IV .Q24H [facility] Rx#:[id number] Sodium Chloride 0.9% 1, 60 000 ml @ 20 mls/hr IV . Q24H [facility] Rx#:[id number] propofoL 1,000 mg In 53.476 Empty Bag 1 bag @ 5 MCG/ KG/MIN 2.898 mls/hr IV . Q24H [facility] Rx#:[id number] Hemodialysis 300 Output: Urine 100 14 Hemodialysis 2000 Other: Voiding Method Urinal # Bowel Movements 1 ABP, PAP, CO, CI - Last Documented Arterial Blood Pressure 137/61 - Exam Patient is currently intubated. He is on the vent. FiO2 at 100% Bilateral breath sounds are heard Abdomen is soft nontender Examination lower extremities shows chronic skin changes. Improved edema. 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 - Labs CBC & Chem 7: 08/04/21 06:20 08/04/21 09:05 Labs: Abnormal Lab Results - Last 24 Hours (Table) 08/03/21 08/03/21 08/03/21 Range/Units 11:42 11:42 11:42 WBC (3.8-10.6) k/uL RBC 2.74 L (4.30-5.90) m/uL Hgb 8.1 L (13.0-17.5) gm/dL Hct 28.0 L (39.0-53.0) % MCV 102.2 H (80.0-100.0) fL MCHC 29.0 L (31.0-37.0) g/dL RDW 16.6 H (11.5-15.5) % Neutrophils # (1.3-7.7) k/uL Lymphocytes # 0.8 L (1.0-4.8) k/uL ABG pH (7.35-7.45) ABG pCO2 (35-45) mmHg ABG pO2 (83-108) mmHg ABG HCO3 (21-25) mmol/L ABG Total CO2 (19-24) mmol/L ABG O2 Saturation (94-97) % Sodium 130 L (137-145) mmol/L Potassium (3.5-5.1) mmol/L Chloride 96 L (98-107) mmol/L BUN 39 H (9-20) mg/dL Creatinine 3.50 H (0.66-1.25) mg/dL Glucose 177 H (74-99) mg/dL POC Glucose (mg/dL) (75-99) mg/dL AST 12 L (17-59) U/L Albumin 3.2 L (3.5-5.0) g/dL Procalcitonin 0.38 H (0.02-0.09) ng/mL 08/03/21 08/03/21 08/04/21 Range/Units 16:34 19:54 06:20 WBC 14.6 H (3.8-10.6) k/uL RBC 3.33 L (4.30-5.90) m/uL Hgb 10.0 L D (13.0-17.5) gm/dL Hct 33.3 L (39.0-53.0) % MCV (80.0-100.0) fL MCHC 30.0 L (31.0-37.0) g/dL RDW 16.5 H (11.5-15.5) % Neutrophils # 13.3 H (1.3-7.7) k/uL Lymphocytes # 0.4 L (1.0-4.8) k/uL ABG pH (7.35-7.45) ABG pCO2 (35-45) mmHg ABG pO2 (83-108) mmHg ABG HCO3 (21-25) mmol/L ABG Total CO2 (19-24) mmol/L ABG O2 Saturation (94-97) % Sodium (137-145) mmol/L Potassium (3.5-5.1) mmol/L Chloride (98-107) mmol/L BUN (9-20) mg/dL Creatinine (0.66-1.25) mg/dL Glucose (74-99) mg/dL POC Glucose (mg/dL) 150 H 128 H (75-99) mg/dL AST (17-59) U/L Albumin (3.5-5.0) g/dL Procalcitonin (0.02-0.09) ng/mL 08/04/21 08/04/21 08/04/21 Range/Units 06:20 07:34 09:05 WBC (3.8-10.6) k/uL RBC (4.30-5.90) m/uL Hgb (13.0-17.5) gm/dL Hct (39.0-53.0) % MCV (80.0-100.0) fL MCHC (31.0-37.0) g/dL RDW (11.5-15.5) % Neutrophils # (1.3-7.7) k/uL Lymphocytes # (1.0-4.8) k/uL ABG pH 7.09 L* 7.26 L (7.35-7.45) ABG pCO2 107 H* 67 H (35-45) mmHg ABG pO2 167 H >400 H (83-108) mmHg ABG HCO3 32 H 30 H (21-25) mmol/L ABG Total CO2 35 H 32 H (19-24) mmol/L ABG O2 Saturation 98.5 H 98.3 H (94-97) % Sodium (137-145) mmol/L Potassium 3.2 L (3.5-5.1) mmol/L Chloride (98-107) mmol/L BUN (9-20) mg/dL Creatinine 1.77 H (0.66-1.25) mg/dL Glucose 73 L (74-99) mg/dL POC Glucose (mg/dL) (75-99) mg/dL AST 14 L (17-59) U/L Albumin (3.5-5.0) g/dL Procalcitonin (0.02-0.09) ng/mL 08/04/21 Range/Units 09:05 WBC (3.8-10.6) k/uL RBC (4.30-5.90) m/uL Hgb (13.0-17.5) gm/dL Hct (39.0-53.0) % MCV (80.0-100.0) fL MCHC (31.0-37.0) g/dL RDW (11.5-15.5) % Neutrophils # (1.3-7.7) k/uL Lymphocytes # (1.0-4.8) k/uL ABG pH (7.35-7.45) ABG pCO2 (35-45) mmHg ABG pO2 (83-108) mmHg ABG HCO3 (21-25) mmol/L ABG Total CO2 (19-24) mmol/L ABG O2 Saturation (94-97) % Sodium (137-145) mmol/L Potassium 3.4 L (3.5-5.1) mmol/L Chloride (98-107) mmol/L BUN (9-20) mg/dL Creatinine (0.66-1.25) mg/dL Glucose (74-99) mg/dL POC Glucose (mg/dL) (75-99) mg/dL AST (17-59) U/L Albumin (3.5-5.0) g/dL Procalcitonin (0.02-0.09) ng/mL Microbiology - Last 24 Hours (Table) 08/01/21 11:30 Gram Stain - Final Sputum Sputum Culture - Final Assessment and Plan Assessment: 1. Acute kidney injury most likely ATN, currently nonoliguric. However given the significantly elevated BUN/creatinine creatinine and volume overload with hyperkalemia, started on hemodialysis on 07/27/2021. No obstruction on ultrasound. UA shows trace protein and moderate blood. Serologies ordered to rule out underlying GN. Mostly all workup negative except for slightly decreased C3 levels. Not a candidate for kidney biopsy. 2. Chronic kidney disease NKF stage IIIB secondary to nephrosclerosis with previous creatinine as low as 1.4 in May 2021 but most recently staying as high as 3.1-3.0 on 07/07/2021 with episodes of acute kidney injury during his hospitalizations for CHF and pneumonia. 3. CHF exacerbation, diastolic 4. Volume overload, status post extra treatment early this morning with UF of 2 L. 5. Hyperkalemia associated with acute kidney injury, no urine retention noted, improved post dialysis 6. Acute hypercapnic respiratory failure, currently on the vent. 7. Paroxysmal A. fib with controlled ventricular response status post pacemaker Plan: Repeat hemodialysis in a.m. Follow-up on CT of the head Minimize IV fluids If there is adequate urine output we can continue with the diuretics. Empiric antibiotics
[2021-08-04] MEDS ORDERED: POTASSIUM CHLORIDE 20 MEQ in WATER FOR INJECTION 1 100ML.BAG IVPB ONE (14:15)
[2021-08-04] MEDS: FUROSEMIDE 80 MG TAB PO SCH (14:52)
[2021-08-04] MEDS: allopurinoL 100 MG TAB PO SCH (14:55)
--- NOTE | 2021-08-04 15:25 | P.PN ---
Subjective Progress Note Date: 08/04/21 Principal diagnosis: Anemia A 65-year-old male with multiple comorbidities including atrial fibrillation on Eliquis, heart failure, COPD oxygen dependent who presented to the emergency department with weakness and shortness of breath. He was diagnosed with acute on chronic kidney injury and he required hemodialysis, yesterday he underwent permacath placement. Patient received hemodialysis again yesterday. This morning he called and 18 for respiratory distress and the patient was transferred to the ICU and is currently sedated and intubated. Hemoglobin is stable at 10.0. He has been hypotensive requiring pressors. No signs of GI bleed. Objective - Vital Signs Vital signs: Vital Signs Temp 98.0 F 08/04/21 02:00 Pulse 76 08/04/21 09:00 Resp 24 08/04/21 09:00 BP 121/72 08/04/21 09:00 Pulse Ox 100 08/04/21 09:00 Intake & Output 08/03/21 08/04/21 08/04/21 18:59 06:59 18:59 Intake Total 300 10.192 Output Total 2100 Balance -1800 10.192 Intake: Intake, IV Titration 10.192 Amount propofoL 1,000 mg In 10.192 Empty Bag 1 bag @ 5 MCG/ KG/MIN 2.898 mls/hr IV . Q24H [facility] Rx#:[id number] Hemodialysis 300 Output: Urine 100 Hemodialysis 2000 Other: Voiding Method Urinal # Bowel Movements 1 ABP, PAP, CO, CI - Last Documented Arterial Blood Pressure 126/57 - Exam General appearance: The patient is sedated and intubated. HET: Head is normocephalic and atraumatic. Conjunctiva pink. Sclera anicteric. Neck: Supple without lymphadenopathy. Abdomen: Soft, nondistended with bowel sounds. No guarding or rigidity. Extremities: Normal skin color and turgor. No pedal edema Skin: No rashes, no jaundice Neurological: Sedated and intubated. - Labs CBC & Chem 7: 08/04/21 06:20 08/04/21 09:05 Labs: Abnormal Lab Results - Last 24 Hours (Table) 08/03/21 08/03/21 08/03/21 Range/Units 11:42 11:42 11:42 WBC (3.8-10.6) k/uL RBC 2.74 L (4.30-5.90) m/uL Hgb 8.1 L (13.0-17.5) gm/dL Hct 28.0 L (39.0-53.0) % MCV 102.2 H (80.0-100.0) fL MCHC 29.0 L (31.0-37.0) g/dL RDW 16.6 H (11.5-15.5) % Neutrophils # (1.3-7.7) k/uL Lymphocytes # 0.8 L (1.0-4.8) k/uL ABG pH (7.35-7.45) ABG pCO2 (35-45) mmHg ABG pO2 (83-108) mmHg ABG HCO3 (21-25) mmol/L ABG Total CO2 (19-24) mmol/L ABG O2 Saturation (94-97) % Sodium 130 L (137-145) mmol/L Potassium (3.5-5.1) mmol/L Chloride 96 L (98-107) mmol/L BUN 39 H (9-20) mg/dL Creatinine 3.50 H (0.66-1.25) mg/dL Glucose 177 H (74-99) mg/dL POC Glucose (mg/dL) (75-99) mg/dL AST 12 L (17-59) U/L Albumin 3.2 L (3.5-5.0) g/dL Procalcitonin 0.38 H (0.02-0.09) ng/mL 08/03/21 08/03/21 08/04/21 Range/Units 16:34 19:54 06:20 WBC 14.6 H (3.8-10.6) k/uL RBC 3.33 L (4.30-5.90) m/uL Hgb 10.0 L D (13.0-17.5) gm/dL Hct 33.3 L (39.0-53.0) % MCV (80.0-100.0) fL MCHC 30.0 L (31.0-37.0) g/dL RDW 16.5 H (11.5-15.5) % Neutrophils # 13.3 H (1.3-7.7) k/uL Lymphocytes # 0.4 L (1.0-4.8) k/uL ABG pH (7.35-7.45) ABG pCO2 (35-45) mmHg ABG pO2 (83-108) mmHg ABG HCO3 (21-25) mmol/L ABG Total CO2 (19-24) mmol/L ABG O2 Saturation (94-97) % Sodium (137-145) mmol/L Potassium (3.5-5.1) mmol/L Chloride (98-107) mmol/L BUN (9-20) mg/dL Creatinine (0.66-1.25) mg/dL Glucose (74-99) mg/dL POC Glucose (mg/dL) 150 H 128 H (75-99) mg/dL AST (17-59) U/L Albumin (3.5-5.0) g/dL Procalcitonin (0.02-0.09) ng/mL 08/04/21 08/04/21 08/04/21 Range/Units 06:20 07:34 09:05 WBC (3.8-10.6) k/uL RBC (4.30-5.90) m/uL Hgb (13.0-17.5) gm/dL Hct (39.0-53.0) % MCV (80.0-100.0) fL MCHC (31.0-37.0) g/dL RDW (11.5-15.5) % Neutrophils # (1.3-7.7) k/uL Lymphocytes # (1.0-4.8) k/uL ABG pH 7.09 L* 7.26 L (7.35-7.45) ABG pCO2 107 H* 67 H (35-45) mmHg ABG pO2 167 H >400 H (83-108) mmHg ABG HCO3 32 H 30 H (21-25) mmol/L ABG Total CO2 35 H 32 H (19-24) mmol/L ABG O2 Saturation 98.5 H 98.3 H (94-97) % Sodium (137-145) mmol/L Potassium 3.2 L (3.5-5.1) mmol/L Chloride (98-107) mmol/L BUN (9-20) mg/dL Creatinine 1.77 H (0.66-1.25) mg/dL Glucose 73 L (74-99) mg/dL POC Glucose (mg/dL) (75-99) mg/dL AST 14 L (17-59) U/L Albumin (3.5-5.0) g/dL Procalcitonin (0.02-0.09) ng/mL 08/04/21 Range/Units 09:05 WBC (3.8-10.6) k/uL RBC (4.30-5.90) m/uL Hgb (13.0-17.5) gm/dL Hct (39.0-53.0) % MCV (80.0-100.0) fL MCHC (31.0-37.0) g/dL RDW (11.5-15.5) % Neutrophils # (1.3-7.7) k/uL Lymphocytes # (1.0-4.8) k/uL ABG pH (7.35-7.45) ABG pCO2 (35-45) mmHg ABG pO2 (83-108) mmHg ABG HCO3 (21-25) mmol/L ABG Total CO2 (19-24) mmol/L ABG O2 Saturation (94-97) % Sodium (137-145) mmol/L Potassium 3.4 L (3.5-5.1) mmol/L Chloride (98-107) mmol/L BUN (9-20) mg/dL Creatinine (0.66-1.25) mg/dL Glucose (74-99) mg/dL POC Glucose (mg/dL) (75-99) mg/dL AST (17-59) U/L Albumin (3.5-5.0) g/dL Procalcitonin (0.02-0.09) ng/mL Microbiology - Last 24 Hours (Table) 08/01/21 11:30 Gram Stain - Final Sputum Sputum Culture - Final Assessment and Plan (1) Anemia Narrative/Plan: A 65-year-old male with a history multiple comorbidities who presented to the emergency department but a week ago with complaints of shortness of breath and lower extremity swelling. He has a history of atrial fibrillation and chronic anemia however he had a significant drop in his hemoglobin during this admission. Patient does take Eliquis for his atrial fibrillation last dose yesterday morning. He has a history of chronic kidney disease with acute kidney failure requiring hemodialysis. He is scheduled this afternoon for a permacath. He is currently receiving dialysis and likely has a component of anemia of chronic disease however with significant drop in hemoglobin and iron studies consistent with an iron deficiency anemia on anticoagulation recommendation would be upper and lower endoscopy for further evaluation. He has denied any overt signs of bleeding, denies any black stool or blood in his stool. He is currently getting 1 unit of PRBC transfusion for hemoglobin of 5.7. Possible etiologies again include anemia chronic disease, with possible underlying liver disease from alcohol abuse, chronic renal failure, as well as possible AVM, esophagitis, peptic ulcer disease, or other possible etiologies. Discussed with patient and well plan for EGD and colonoscopy on Monday. Will start clear liquid diet tomorrow and prep for colonoscopy. We'll reschedule EGD and colonoscopy tentatively for due to fluid overload and need for hemodialysis. Current Visit: Yes Status: Acute Code(s): D64.9 - ANEMIA, UNSPECIFIED SNOMED Code(s): 845244784 (2) H/O ETOH abuse Narrative/Plan: The patient has a long standing history of alcohol abuse. He admits that his last alcoholic drink was about 2 months ago. He did not give further information on how much she had been drinking but states that he has cut back. Current Visit: No Status: Chronic Code(s): Z87.898 - PERSONAL HISTORY OF OTHER SPECIFIED CONDITIONS SNOMED Code(s): 092622723 (3) Atrial fibrillation Current Visit: Yes Status: Acute Code(s): I48.91 - UNSPECIFIED ATRIAL FIBRILLATION SNOMED Code(s): 10792157 (4) Acute on chronic renal failure Narrative/Plan: Patient to undergo permacath placement today. Currently undergoing hemodialysis, will be a Monday schedule. The patient still has fluid overload, requiring hemodialysis again today. We'll reschedule EGD colonoscopy tentatively for Current Visit: No Status: Acute Code(s): N17.9 - ACUTE KIDNEY FAILURE, UNSPECIFIED; N18.9 - CHRONIC KIDNEY DISEASE, UNSPECIFIED SNOMED Code(s): 662703397 (5) Diabetes Current Visit: No Status: Chronic Code(s): E11.9 - TYPE 2 DIABETES MELLITUS WITHOUT COMPLICATIONS SNOMED Code(s): 41272759 (6) Acute respiratory failure with hypoxia Current Visit: Yes Status: Acute Code(s): J96.01 - ACUTE RESPIRATORY FAILURE WITH HYPOXIA SNOMED Code(s): 94355205 Plan: 1. Continue with symptomatic and supportive care 2. Continue with ICU management 3. Continue to monitor signs and symptoms of GI bleed 4. Hemodialysis per nephrology 5. Patient may have tube feedings 6. No plans at this time for any endoscopic evaluation Thank you for this consultation, we will continue to follow. The impression and plan of care has been dictated as directed. Dr. Werner I performed a history and examination of this patient, discussed the same with the dictator. I agree with the dictator's note ,documented as a scribe. Any additional findings or plans will be noted.
--- NOTE | 2021-08-04 16:07 | CT ---
EXAMINATION TYPE: CT angio chest DATE OF EXAM: 08/04/2021 COMPARISON: CT dated 07/02/2021 HISTORY: Pt vented. Rule out PE. Dyspnea. CT DLP: 467.3 mGy.cm. Automated Exposure Control for Dose Reduction was Utilized. TECHNIQUE AND CONTRAST: CTA scan of the thorax is performed with IV Contrast, patient injected with 80 mL of Isovue 370, pulm onary angiogram protocol. MIP Images are created on an independent workstation and reviewed. FINDINGS: No definite filling defect within the pulmonary trunk, main pulmonary arteries, lobar, segmental and proximal subsegmental branches to suggest pulmonary embolism. Distal subsegmental branches are subopt imally assessed. The pulmonary trunk measures 3.4 cm. The ascending aorta measures 3.9 cm. Scattered arterial and coronary atherosclerotic calcifications. Slight cardiac enlargement. No pericardial effusion. The tip of endotracheal tube is about 4.2 cm proximal to the hammad. The NG tube tip seen within the proximal portion of the gastric fundus, further introduction is advised. A d ual-lumen dialysis catheter is seen with the tip at the inferior aspect of the SVC. Left upper chest wall dual-lead pacemaker. Secretions/filling defects are seen within the right main bronchus with bronchial impaction of the ri ght lower lobe bronchi, recurrent aspiration can't be excluded. Diffuse patchy opacities, pulmonary i nfiltration and groundglass opacities seen mainly in the left upper lobe and to a lesser extent the r ight upper lobe and middle lobe. Bilateral pleural effusions with subsegmental pulmonary atelectasis, more on the right side. Infectio n cannot be excluded. Follow-up to complete resolution. Prominent hilar and mediastinal lymph nodes, possibly reactive. Bilateral gynecomastia changes. Questionable previous left hepatic resection. Heal ing/healed fractures of the left mid to lower ribs. IMPRESSION: No major or central pulmonary embolism. Extensive pulmonary infiltration mainly at the upper and midl ezequiel zones as described above, likely representing acute inflammatory/infectious process. Follow-up to complete resolution is advised. Bilateral pleural effusions with adjacent pulmonary atelectasis as described above more on the right side. Secretion within the right main bronchus and bronchial impaction of the right lower lobe bronch i, please correlate clinically to rule out recurrent aspiration. Other findings as described above.
[2021-08-04 18:25] LABS: Glucose,Whole Blood 94 mg/dL (75-99)
--- NOTE | 2021-08-04 18:47 | P.PN ---
Subjective Patient is a 65-year-old male with multiple medical problems multiple comorbidities was recently discharged from the hospital after he was treated for volume or note from chronic gastritis function and the cardiorenal syndrome. Patient was discharged to rehab facility 2 days into rehab related patient patient went home and started having shortness of breath volume overload diffuse anasarca and pedal edema. Patient is found to be in significant volume or lower chest x-ray showed bilateral pleural effusion although this appears to have improved compared to last admission when he had thoracentesis. Patient has significant lab abnormalities including creatinine going up to around 10 potassium 6.2 very low magnesium of 0.9 nephrology was consulted. As per nephrology patient will lead hemodialysis, consult to vascular surgery was placed for hemodialysis catheter placement and patient will be subsequently started on hemodialysis. Patient does have advanced COPD uses about 5 L of oxygen. 07/28/2021 Patient is seen and evaluated and follow-up has received hemodialysis catheter and is receiving hemodialysis today. Kidney functions improving and patient reports to producing more urine. Current creatinine is 7.6 today potassium is 5 .5 and sodium is 139. Blood sugars have been more manageable and will continue current regimen. Patient continues on 5 L via nasal cannula which is chronic for him. Nephrology following closely and will continue with dialysis daily at this time. Patient is also maintained on IV Lasix and will continue. Patient denies chest pain, shortness of breath, or palpitations. Patient is afebrile. No nausea or vomiting noted and patient is tolerating diet. subjective: resume the care of the pt today 07/29/2021 This is a pleasant 65 years old male with stage IV chronic kidney disease presents with fatigue and worsening kidney function requiring hemodialysis which is a started during this admission after a catheter placed in the right groin. He is hemodynamically stable, he is on 5 L per minute of oxygen but saturating 98-99%, we will try to titrate his oxygen down. No much dyspnea or cough and while he is lying flat in bed but he feels very weak all over. His been having recurrent nausea vomiting, mainly worked first of this morning but he is fully awake with no headache. No abdominal pain. He is hemodynamically stable, hemoglobin 7.4 with evidence of chronic anemia, also he is on ferrous sulfate once daily at home. This currently on home dose of liquids 2.5 and IV Lasix 60 mg twice daily. Ultrasound of the abdomen showing no hydronephrosis or nephrolithiasis. And chest x-ray showed small right pleural effusion with atelectasis. Also patient has chronic left leg wound secondary to a fall about 3 months ago. Patient refused to take the dressing off. We consulted once care. Patient is on Zofran already, we added Phenergan. We ordered a KUB. Also ask for PT OT evaluation. WOUND TEAM CONSULT 07/30/2021 Patient awake alert, no much tachypnea but he stayed in bed most of the time, he still at baseline of 4 L/m of oxygen. However patient reports coughing a lot and making a lot of phlegm, he said he has been diagnosed with pneumonia 2 weeks ago. Actually chest x-ray from yesterday showing bilateral infiltrate, I reviewed the chest x-ray by myself and it looks worse compared to admission despite starting him on a new hemodialysis and receiving Lasix for his CHF. Also we checked his pro-calcitonin and it is elevated at 0.5 for which is consistent with infection with this constellation of CHF, chest x-ray findings and elevated pro-calcitonin. Most likely and high suspicion for hospital acquired pneumonia and patient is a started on Zosyn last night. We going to repeat chest x-ray tomorrow morning. Bladder scan show minimal urine, Flomax was discontinued. Wound care R following the patient for his left foot wound. 07/31/2021 Patient seen in bed most of the time, physical therapy recommended rehab, I talked to him today about this recommendation and he is refusing now. He still on 4 L oxygen nasal cannula which looks like he is this is his baseline however he has coarse crepitation looks like it comes from secretion with decreased air entry on both sides, patient confirms to me he has history of COPD. However I would recommend he follow up with a senior javascript engineer as an outpatient. Repeat chest x-ray today showing no worsening infiltrate however it shows Similar multifocal airspace opacities. Correlate for congestive heart failure and/or diffuse airspace disease in the meantime we will keep him on Zosyn and check a pro-calcitonin tomorrow, if improvement we may consider oral antibiotic. However started on Solu-Medrol 60 mg 3 times a day today. He is kept on IV Lasix and hemodialysis I discussed the case with nephrology team and they recommended the permacath prior to discharge, discussed with bed side nurse to inform surgical vascular team. Workup showing anemia of chronic disease and he was started on arenasept by deicer repairer. 08/01/2021 Patient clinically is doing well generally, he is breathing quietly, he is tolerating diet well, no bowel movement today Nephrology team on the case and plan for him to get the permacath by vascular surgery team hopefully tomorrow. Also his evidence of COPD exacerbation which is improving therefore Solu-Medrol our to 40 mg twice a day. Pro-calcitonin still elevated 0.68, currently on Zosyn, sputum cultures pending. However patient only having cough and phlegm which is pending as above. Saturation is 4-5 L/m which is his baseline. Rehab is recommended but patient was reluctant so far. 08/02/2021 Patient is lying in bed most of the time, his breathing is at baseline and is i mproving with less crepitation but he is coughing a lot . His oxygen requirement at baseline on 4 L/m which is his home dose. his hemoglobin dropped today to 5.7, his workup showing anemia of chronic disease despite being an IV and oral iron, workup showing anemia of chronic disease but cannot rule out GI bleed especially he's on liquids which is on hold today before going for procedure. Therefore we going to consult GI service in any way. Occult blood in his stool test is requested. Patient states he has 3- 4 loose bowel movements, we will check C. diff as well. No abdominal pain or vomiting. Patient is going for permacath placement today and hemodialysis tomorrow, he got hemodialysis this morning. Patient adamantly refusing to go to rehab despite recommendation for medical and nephrology team on several occasions. Patient and make his own decisions. 08/03/2021 Patient now wake and breathing comfortably at baseline, he is less coughing compared to yesterday after started on Robitussin D but today he wants to, more so I can bring stuff up out of his chest, therefore we change his Robitussin into when necessary dosing and he was informed. No chest pain or other symptoms. However there was some concerns of pulmonary congestion there for his colonoscopy/EGD for tomorrow is rescheduled until . He is placed on liquid diet therefore we lowered his Levemir form 25 units which is home dose down to 10 units tonight. His chest x-ray looks the same Reticulocyte count is 1.5 but he got one unit of transfusion. Currently hemoglobin is holding at 8.1, glucose control, magnesium normal at 2.2, sodium at 1:30 and he is saturating at 4-5 L/m which is home dose. Diarrhea stopped, occult blood in stool is negative and C. diff negative. 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 Repeat CT of the chest today showed no evidence of pulmonary embolism and there is extensive bilateral infiltrates concerning for aspiration. Currently he is saturating 98% on FiO2 of 50% and respiratory rate of 26. Labs reviewed and showing WBC of 14.6, creatinine down to 1.6, hemoglobin 10, potassium after placement 3.4. Patient labs reviewed remains on Zosyn, Pro-calcitonin is improving down to 0.3 prior to this episode of aspiration. Patient remains afebrile for now. His Eliquis remains on hold in view of his history of A. fib due for suspected GI bleed. Patient remains on Zosyn, Protonix and insulin sliding scale. Also patient placed on Lasix 80 mg daily and receives an extra dose this morning. While insulin 10 units is held Objective - Vital Signs Vital signs: Vital Signs Temp 98.2 F 08/04/21 12:00 Pulse 67 08/04/21 15:00 Resp 26 H 08/04/21 15:00 BP 118/66 08/04/21 15:00 Pulse Ox 100 08/04/21 15:00 Intake & Output 08/03/21 08/04/21 08/04/21 18:59 06:59 18:59 Intake Total 300 343.330 Output Total 2100 23 Balance -1800 320.330 Weight 96.615 kg Intake: Intake, IV Titration 343.330 Amount Norepinephrine 8 mg In 49.854 Sodium Chloride 0.9% 250 ml @ 0.05 MCG/KG/MIN 9. 348 mls/hr IV .Q24H [facility] Rx#:[id number] Sodium Chloride 0.9% 1, 140 000 ml @ 20 mls/hr IV . Q24H [facility] Rx#:[id number] propofoL 1,000 mg In 153.476 Empty Bag 1 bag @ 5 MCG/ KG/MIN 2.898 mls/hr IV . Q24H [facility] Rx#:[id number] Hemodialysis 300 Output: Urine 100 23 Hemodialysis 2000 Other: Voiding Method Urinal # Bowel Movements 1 ABP, PAP, CO, CI - Last Documented Arterial Blood Pressure 134/57 - Exam -GENERAL: The patient is intubated and sedated HEENT: Pupils are round and equally reacting to light. EOMI. No scleral icterus. No conjunctival pallor. Normocephalic, atraumatic. No pharyngeal erythema. No thyromegaly. CARDIOVASCULAR: S1 and S2 present. No murmurs, rubs, or gallops. -PULMONARY: Chest is clear to auscultation, no wheezing or crackles. Decreased breath sounds on both sides with weak expiratory efforts. Right upper chest permacath ABDOMEN: Soft, nontender, nondistended, normoactive bowel sounds. No palpable organomegaly. MUSCULOSKELETAL: No joint swelling or deformity. EXTREMITIES: No cyanosis, clubbing, or pedal edema. Left leg wound with dressing. NEUROLOGICAL: Gross neurological examination did not reveal any focal deficits. SKIN: No rashes. no petechiae. - Labs CBC & Chem 7: 08/04/21 06:20 08/04/21 09:05 Labs: Abnormal Lab Results - Last 24 Hours (Table) 08/03/21 08/03/21 08/03/21 Range/Units 11:42 16:34 19:54 WBC (3.8-10.6) k/uL RBC (4.30-5.90) m/uL Hgb (13.0-17.5) gm/dL Hct (39.0-53.0) % MCHC (31.0-37.0) g/dL RDW (11.5-15.5) % Neutrophils # (1.3-7.7) k/uL Lymphocytes # (1.0-4.8) k/uL ABG pH (7.35-7.45) ABG pCO2 (35-45) mmHg ABG pO2 (83-108) mmHg ABG HCO3 (21-25) mmol/L ABG Total CO2 (19-24) mmol/L ABG O2 Saturation (94-97) % Potassium (3.5-5.1) mmol/L Creatinine (0.66-1.25) mg/dL Glucose (74-99) mg/dL POC Glucose (mg/dL) 150 H 128 H (75-99) mg/dL AST (17-59) U/L Procalcitonin 0.38 H (0.02-0.09) ng/mL 08/04/21 08/04/21 08/04/21 Range/Units 06:20 06:20 07:34 WBC 14.6 H (3.8-10.6) k/uL RBC 3.33 L (4.30-5.90) m/uL Hgb 10.0 L D (13.0-17.5) gm/dL Hct 33.3 L (39.0-53.0) % MCHC 30.0 L (31.0-37.0) g/dL RDW 16.5 H (11.5-15.5) % Neutrophils # 13.3 H (1.3-7.7) k/uL Lymphocytes # 0.4 L (1.0-4.8) k/uL ABG pH 7.09 L* (7.35-7.45) ABG pCO2 107 H* (35-45) mmHg ABG pO2 167 H (83-108) mmHg ABG HCO3 32 H (21-25) mmol/L ABG Total CO2 35 H (19-24) mmol/L ABG O2 Saturation 98.5 H (94-97) % Potassium 3.2 L (3.5-5.1) mmol/L Creatinine 1.77 H (0.66-1.25) mg/dL Glucose 73 L (74-99) mg/dL POC Glucose (mg/dL) (75-99) mg/dL AST 14 L (17-59) U/L Procalcitonin (0.02-0.09) ng/mL 08/04/21 08/04/21 Range/Units 09:05 09:05 WBC (3.8-10.6) k/uL RBC (4.30-5.90) m/uL Hgb (13.0-17.5) gm/dL Hct (39.0-53.0) % MCHC (31.0-37.0) g/dL RDW (11.5-15.5) % Neutrophils # (1.3-7.7) k/uL Lymphocytes # (1.0-4.8) k/uL ABG pH 7.26 L (7.35-7.45) ABG pCO2 67 H (35-45) mmHg ABG pO2 >400 H (83-108) mmHg ABG HCO3 30 H (21-25) mmol/L ABG Total CO2 32 H (19-24) mmol/L ABG O2 Saturation 98.3 H (94-97) % Potassium 3.4 L (3.5-5.1) mmol/L Creatinine (0.66-1.25) mg/dL Glucose (74-99) mg/dL POC Glucose (mg/dL) (75-99) mg/dL AST (17-59) U/L Procalcitonin (0.02-0.09) ng/mL Assessment and Plan Assessment: - Episode of aspiration is had a suspected leading to respiratory distress and currently being intubated on mechanical ventilation in the ICU - Bilateral hospital acquired pneumonia is highly suspected - Acute kidney injury on stage IV CKD, started on edge D during this admission - acute diastolic congestive heart failure secondary to cardiorenal - anasarca secondary to cardiorenal syndrome as mentioned above. Hemodialysis daily per nephrology for now - Anemia of chronic disease, with recent drop in hemoglobin. Rule out GI bleed - Loose bowel movement, C. diff colitis ruled out -Hypomagnesemia magnesium will be replaced per Protocol -Chronic respiratory failure secondary to COPD , 5 L of oxygen at home. There is evidence of acute exacerbation -Possible pneumonia, hospital-acquired with elevated pro-calcitonin 0.5 -Hypertension -Hyperlipidemia -Hypothyroidism -History of recent fall and fracture to the left wrist with malunion noted -Paroxsymal atrial fibrillation presently rate controlled patient does have sick sinus syndrome history patient has a pacemaker -Type 2 diabetes mellitus Plan: This is a pleasant 65 years old male presents with acute kidney injury and CHF. Started on hemodialysis. Continue with mechanical ventilation with pulmonary/critical care team will consult Continue with Zosyn and follow-up culture results Continue with hemodialysis per nephrology team. Patient will need permacath, vascular surgery paged Continue with Lasix. Continue with home dose Eliquis 2.5 mg(on hold for possible bi bleed). Continue with insulin and ISS. Consult wound care Consult GI hold Levemir Labs and medication were reviewed.. Continue same treatment. Continue with symptomatic treatment. Resume home medication. Monitor lytes and vitals. DVT and GI prophylaxis. Further recommendation sas per clinical course of the patient DVT prophylaxis: Eliquis (On hold ) GI Prophylaxis: Ppi PT/OT: Recommended subacute rehab, family welfare social work professor consult Prognosis is guarded
[2021-08-04] MEDS: METOPROLOL SUCCINATE (ER) 50 MG TAB.ER.24H PO SCH (20:28)
[2021-08-04] MEDS: LACTATED RINGERS 1,000 ML IV SCH (21:03)
[2021-08-04 23:16] LABS: Glucose,Whole Blood 127 mg/dL (75-99)
[2021-08-05] MEDS: PIPERACILLIN-TAZOBACTAM 3.375 GM in SODIUM CHLORIDE 0.9% 100 ML IVPB SCH ×3 (00:21→15:48)
[2021-08-05] MEDS: IPRATROPIUM-ALBUTEROL 3 ML NEB INHALATION SCH ×5 (04:02→20:32)
[2021-08-05 06:03] LABS: ABG Base Excess -0.7 mmol/L; ABG HCO3 24 mmol/L (21-25); ABG Oxygen Saturation 98.6 % (94-97); ABG PCO2 40 mmHg (35-45); ABG PH 7.39 (7.35-7.45); ABG PO2 107 mmHg (83-108); ABG TCO2 25 mmol/L (19-24); Allen Test Performed? Yes
[2021-08-05 06:41] LABS: Anisocytosis Slight; Basophils % (A) 0 %; Eosinophils # (A) 0.1 k/uL (0-0.7); Eosinophils % (A) 1 %; HCT 26.5 % (39.0-53.0); Hypochromasia Marked; Lymphocytes # (A) 0.5 k/uL (1.0-4.8); Lymphocytes % (A) 5 %; MCH 29.8 pg (25.0-35.0); MCHC 29.8 g/dL (31.0-37.0); Macrocytosis Slight; Mean Platelet Volume 8.4; Monocytes # (A) 0.4 k/uL (0-1.0); Monocytes % (A) 4 %; Neutrophils # (A) 9.4 k/uL (1.3-7.7); Neutrophils % (A) 90 %; Platelet Count 192 k/uL (150-450); Poikilocytosis Slight; RBC 2.65 m/uL (4.30-5.90); RDW 16.6 % (11.5-15.5); WBC 10.4 k/uL (3.8-10.6)
[2021-08-05 06:45] LABS: HGB 7.9 gm/dL (13.0-17.5)
[2021-08-05] MEDS: LEVOTHYROXINE 25 MCG TAB PO SCH (06:52)
[2021-08-05 07:23] LABS: Glucose,Whole Blood 183 mg/dL (75-99)
[2021-08-05] MEDS: INSULIN ASPART (NovoLOG) 100 UNIT/ML VIAL SQ SCH ×3 (07:24→18:14)
[2021-08-05] MEDS: BUDESONIDE 1 MG/2 ML NEBU INHALATION SCH ×2 (07:25→20:32)
[2021-08-05] MEDS: FORMOTEROL FUMARATE 20 MCG/2 ML NEBU INHALATION SCH ×2 (07:25→20:32)
[2021-08-05 07:26] LABS: Calcium 8.3 mg/dL (8.4-10.2); Potassium 3.8 mmol/L (3.5-5.1)
--- NOTE | 2021-08-05 07:54 | XR ---
EXAMINATION TYPE: XR chest 1V portable DATE OF EXAM: 08/05/2021 COMPARISON: Chest x-ray 08/04/2021 HISTORY: Intubated TECHNIQUE: Single frontal view of the chest is obtained. FINDINGS: Findings are similar to prior exam. Endotracheal tube and NG tube are overlying appropriat e positions. Dialysis catheter and pacemaker are stable. Ventricular lead is not included on exam due to patient positioning. Cardiac mediastinal silhouette is stable. There is airspace disease, promine nce interstitium bilaterally. No evident pneumothorax, there may be small effusion. IMPRESSION: There may be some progression in pneumonia or pulmonary edema, volume overload, difficul t to exclude small effusion.
[2021-08-05] MEDS ORDERED: CISATRACURIUM 2 MG/ML 5 ML VIAL IV ONE ×2 (08:26→09:13)
[2021-08-05] MEDS: PANTOPRAZOLE 40 MG/10 ML VIAL IV SCH (08:28)
[2021-08-05] MEDS: CHLORHEXIDINE GLUCONATE 15 ML CUP MUCOUS MEM SCH ×2 (08:28→20:36)
[2021-08-05] MEDS: ASCORBIC ACID 500 MG TAB PO SCH ×2 (08:28→20:36)
[2021-08-05] MEDS: FUROSEMIDE 80 MG TAB PO SCH (08:28)
[2021-08-05] MEDS: CHOLECALCIFEROL 25 MCG (1000 IU) TABLET PO SCH (08:28)
[2021-08-05] MEDS: HYDROmorphone 1 MG/ML 1 ML SYRINGE IVP PRN ×4 (09:05→21:04)
--- NOTE | 2021-08-05 10:14 | XR ---
EXAMINATION TYPE: XR chest 1V portable DATE OF EXAM: 08/05/2021 COMPARISON: Prior exam same dated earlier time HISTORY: Endotracheal tube placement TECHNIQUE: frontal view of the chest is obtained on 2 images. FINDINGS: Endotracheal tube, NG tube are overlying appropriate positions. There may be some slight i nterval improvement in aeration within the lungs. Additional instrumentation is stable. No evident pn eumothorax or pleural effusion. IMPRESSION: There may be some improvement in aeration.
--- NOTE | 2021-08-05 10:44 | PCN ---
PROCEDURE NOTE PULMONARY/CRITICAL CARE PROCEDURE NOTE: Placement of right brachial arterial line. PREOPERATIVE DIAGNOSIS: Frequent blood draws and blood gas monitoring. POSTOPERATIVE DIAGNOSIS: Frequent blood draws and blood gas monitoring. OPERATORS: 1. Dr. Farmer. 2. Dr. Hair. PROCEDURE DESCRIPTION: A universal time-out was completed verifying correct patient, procedure, site, positioning, and implant(s) or special equipment if applicable. There was informed consent. Martin's test was performed to ensure adequate perfusion. The patient's right wrist was prepped and draped in sterile fashion. 1% Lidocaine was used to anesthetize the area. An 18G Arrow arterial line was introduced into the right brachial artery. The catheter was threaded over the guide wire and the needle was removed with appropriate pulsatile blood return. There was good blood return and waveform. Blood loss was minimal. The catheter was then sutured in place to the skin and a sterile dressing applied by the nurse. Perfusion to the extremity distal to the point of catheter insertion was checked and found to be adequate. The patient tolerated the procedure well and there were no immediate complications. MMODL / IJN: [id number] /
--- NOTE | 2021-08-05 10:49 | P.PN ---
Subjective Progress Note Date: 08/05/21 Principal diagnosis: Respiratory failure. Pulmonary consultation dated 08/04/2021. 65-year-old male who's been here since July 26. We are just asked to see him today. Before we actually saw him, he apparently was having hemodialysis, for fluid overload, and, had an uneventful hemodialysis run. Subsequent to that, he apparently developed respiratory distress, and, I was called by the hospital doctor, who thought the patient could not protect his airway, and was having im pending respiratory arrest. I asked her to call anesthesia to have been intubated, and transferred down to the intensive care unit. In the ICU, we placed a right femoral triple-lumen catheter, and a rate femoral artery arterial line. We made some adjustments to his ventilator, drop the FiO2 down to 50%, and also increasing the rate from 20 to 26 breaths per minute. In addition, the patient was placed on propofol for sedation, and also norepinephrine for blood pressure support. He initially was seen back on July 26 in the emergency room. He came in with complaints of fluid retention, shortness of breath, and leg swelling. He also had a recent history of injury to the left forearm, I believe a fracture to one of the bones in the left forearm. We had not been consulted before today, apparently for an abnormal chest x-ray showing some infiltrates in the left mid lung. Unfortunately, we could not talk to him prior to intubation, to get a sense of what was going on with him. He has a history of atrial fibrillation, CHF, COPD, diabetes, DVT, GERD, hyperlipidemia, hypertension, pn eumonia, end-stage renal disease, and sleep apnea, among other things. He is quite an extensive medical history, as can be seen on the H&P/ER note. White count 14.6, hemoglobin 10, hematocrit 33.3, and platelet count 316,000. Initial blood gases done before transfer, showed a pO2 167 a pCO2 of 107 and a pH is 7.09. Blood gases after intubation, showed a pO2 that was greater than 400, pCO2 that was 67, and a pH of 7.26. The vent settings at that time included AC mode, rate 20, tidal volume 450, FiO2 100%, PEEP of 5. After the post intubation blood gases were obtained, the rate on the ventilator was increased to 26, and the FiO2 was dropped down to 50%. Sodium 138, potassium 3.4, chlori shabana 99, CO2 30, anion gap 9, BUN 15, creatinine 1.77. Chest x-ray shows some diffuse interstitial changes, bilateral pleural effusions, and some infiltrate in the left midlung. Progress note dated 08/05/2021. 65-year-old male, seen in consultation yesterday. The patient developed respiratory distress, requiring intubation and mechanical ventilation, and transferred to the intensive care unit yesterday, after undergoing hemodialysis, where 3 L was removed. The patient had a right femoral triple-lumen catheter placed as well as a right femoral arterial line. Unfortunately, the arterial line is no longer functioning. A right brachial arterial line was placed today. In addition, there was a leak about the endotracheal tube, and that was also replaced. Currently, the patient remains on the mechanical ventilator. His current settings include the volume assist control, rate 26, tidal volume 450, FiO2 40%, and PEEP of 5. Blood gases show pO2 107, pCO2 40, and pH is 7.39. Norepinephrine has been weaned off. The patient's on propofol at 50 mcg/kg/m, lactated Ringer's at 20 mL an hour, and Nepro feeds, at 20 mL, with a goal of 33 mL an hour. White count 10.4, and 7.9, hematocrit 26.5, and platelet count 192,000. Sodium 132, potassium 3.8, chlorides 98, CO2 22, anion gap 12, BUN 25, creatinine 2.83. Microbiologic studies are negative. Chest x-ray shows improvement in the patient's lung findings. Endotracheal tube in good position. NG tube in good position. A CT angiogram was done yesterday, and showed findings consistent with fluid overload. There are bilateral pleural effusions. There is was no pulmonary embolism. Objective - Vital Signs Vital signs: Vital Signs Temp 99.2 F 08/05/21 04:00 Pulse 94 08/05/21 07:46 Resp 34 H 08/05/21 07:00 BP 103/62 08/05/21 07:00 Pulse Ox 99 08/05/21 07:00 Intake & Output 08/04/21 08/05/21 08/05/21 18:59 06:59 18:59 Intake Total 629.729 990.816 119.926 Output Total 36 40 0 Balance 593.729 950.816 119.926 Weight 96.615 kg 92.8 kg Intake: Intake, IV Titration 629.729 750.816 99.926 Amount Lactated Ringers 1,000 ml 220 20 @ 20 mls/hr IV .Q24H [facility] Rx#:[id number] Norepinephrine 8 mg In 183.115 120.769 3.116 Sodium Chloride 0.9% 250 ml @ 0.05 MCG/KG/MIN 9. 348 mls/hr IV .Q24H [facility] Rx#:[id number] Piperacillin-Tazobactam 3 100 .375 gm In Sodium Chloride 0.9% 100 ml @ 25 mls/hr IVPB Q8HR [facility] Rx# :[id number] Sodium Chloride 0.9% 1, 200 20 000 ml @ 20 mls/hr IV . Q24H [facility] Rx#:[id number] propofoL 1,000 mg In 246.614 290.047 76.81 Empty Bag 1 bag @ 5 MCG/ KG/MIN 2.898 mls/hr IV . Q24H [facility] Rx#:[id number] Tube Feeding 150 20 Other 90 Output: Urine 36 40 0 Other: Voiding Method Indwelling Catheter Indwelling Catheter ABP, PAP, CO, CI - Last Documented Arterial Blood Pressure 118/48 - Exam No acute distress, sedated, with an orally placed endotracheal tube and NG tube. The patient is chronically ill appearing. HEENT examination is grossly unremarkable. Neck supple. Full range of motion. No adenopathy thyromegaly or neck vein distention. Cardiovascular examination reveals regular rhythm rate. S1-S2 normal. No S3 or S4. No discernible murmur noted. Heart rate 94 bpm. Lungs reveal coarse bilateral rhonchi, and bilateral crackles. No wheezes. Breath sounds equal bilaterally. Abdomen soft, without bowel sounds. Extremities are intact. No cyanosis clubbing or edema. Skin is without rash or lesion. Neurologic examination cannot be properly assessed. - Labs CBC & Chem 7: 08/05/21 05:34 08/05/21 05:34 Labs: Abnormal Lab Results - Last 24 Hours (Table) 08/04/21 08/05/21 08/05/21 Range/Units 23:13 05:34 05:34 RBC 2.65 L (4.30-5.90) m/uL Hgb 7.9 L D (13.0-17.5) gm/dL Hct 26.5 L (39.0-53.0) % MCHC 29.8 L (31.0-37.0) g/dL RDW 16.6 H (11.5-15.5) % Neutrophils # 9.4 H (1.3-7.7) k/uL Lymphocytes # 0.5 L (1.0-4.8) k/uL ABG Total CO2 (19-24) mmol/L ABG O2 Saturation (94-97) % Sodium 132 L (137-145) mmol/L BUN 25 H (9-20) mg/dL Creatinine 2.83 H (0.66-1.25) mg/dL Glucose 154 H (74-99) mg/dL POC Glucose (mg/dL) 127 H (75-99) mg/dL Calcium 8.3 L (8.4-10.2) mg/dL 08/05/21 08/05/21 Range/Units 05:54 07:23 RBC (4.30-5.90) m/uL Hgb (13.0-17.5) gm/dL Hct (39.0-53.0) % MCHC (31.0-37.0) g/dL RDW (11.5-15.5) % Neutrophils # (1.3-7.7) k/uL Lymphocytes # (1.0-4.8) k/uL ABG Total CO2 25 H (19-24) mmol/L ABG O2 Saturation 98.6 H (94-97) % Sodium (137-145) mmol/L BUN (9-20) mg/dL Creatinine (0.66-1.25) mg/dL Glucose (74-99) mg/dL POC Glucose (mg/dL) 183 H (75-99) mg/dL Calcium (8.4-10.2) mg/dL Microbiology - Last 24 Hours (Table) 08/04/21 20:20 Sputum Culture - Preliminary Sputum Assessment and Plan Assessment: Acute hypoxemic respiratory failure, requiring intubation and mechanical ventilation on 08/04/2021. Chronic kidney disease, requiring hemodialysis. History of chronic atrial fibrillation. History of CHF. History of COPD. History of diabetes mellitus. History of DVT. History of gastroesophageal reflux disease. History of hyperlipidemia. History of hypertension. History of sleep apnea syndrome. History of pneumonia. Chronic hypoxemic respiratory failure. Multiple comorbidities. Plan: Plan dated 08/04/2021. The patient was intubated upon the floor, and transferred down to the intensive care unit, room 252. A right femoral triple-lumen catheter was placed, as well as a right femoral artery arterial line. The patient was started on propofol for sedation. In addition, the patient will be given norepinephrine for blood pressure support. The FiO2 was turned down from 100%, down to 50%. I told the nurse to have dietary start tube feedings today. Additional recommendations and suggestions are forthcoming. Labs, x-rays, and medications are reviewed. Unnecessary medications will be discontinued. Prognosis is guarded. Continue to follow the patient and make recommendations where appropriate. Plan dated 08/05/2021. The patient will be given some Dilaudid when necessary for pain control. In addition, we will attempt a daily interruption of sedation. The patient is not likely ready for weaning and extubation. In addition, the right femoral art line went bad, and we replaced it with a right brachial arterial line. In addition, there was a leak on the sdv pilot/navigator/dds operator balloon of the endotracheal tube, and a new #8 endotracheal tube was placed, using the endotracheal tube stylet. Labs, x-rays, and medications are all reviewed. Tube feedings will be increased to goal. Additional recommendations and suggestions are forthcoming. The patient has been having daily hemodialysis. We will continue to follow make recommend ations where appropriate. Prognosis is guarded. Time with Patient: Greater than 30
[2021-08-05] MEDS: SODIUM CHLORIDE 0.9% 1,000 ML IV SCH (11:40)
--- NOTE | 2021-08-05 12:13 | P.PN ---
Subjective Patient is seen for follow-up for acute kidney injury and top of chronic kidney disease Patient has underlying chronic kidney disease stage IV with recent worsening of his renal function since May 2021. Creatinine increased from 1.4 on 05/24/[address] up to 3.1 on 07/05/2021. Patient had acute kidney injury during his hospitalization last month and serum creatinine on discharge was 3.0. Acute kidney injury was mostly cardiorenal. Patient was diuresed and discharged on torsemide. He was admitted to the hospital now with a creatinine of around 10.2. Patient was started on dialysis on 07/27/2021. Patient has been treated for volume overload. Patient is seen in the ICU. He remains on the vent. FiO2 is at 40%. Currently on about 0.15 g of levo fed. No significant urine output Patient had Artline placed this morning. He scheduled for hemodialysis today. Objective - Vital Signs Vital signs: Vital Signs Temp 99.3 F 08/05/21 08:00 Pulse 75 08/05/21 11:32 Resp 26 H 08/05/21 11:00 BP 82/46 08/05/21 09:30 Pulse Ox 95 08/05/21 11:00 Intake & Output 08/04/21 08/05/21 08/05/21 18:59 06:59 18:59 Intake Total 629.729 990.816 508.064 Output Total 36 40 35 Balance 593.729 950.816 473.064 Weight 96.615 kg 92.8 kg Intake: Intake, IV Titration 629.729 750.816 318.064 Amount Lactated Ringers 1,000 ml 220 100 @ 20 mls/hr IV .Q24H [facility] Rx#:[id number] Norepinephrine 8 mg In 183.115 120.769 41.254 Sodium Chloride 0.9% 250 ml @ 0.05 MCG/KG/MIN 9. 348 mls/hr IV .Q24H [facility] Rx#:[id number] Piperacillin-Tazobactam 3 100 100 .375 gm In Sodium Chloride 0.9% 100 ml @ 25 mls/hr IVPB Q8HR [facility] Rx# :[id number] Sodium Chloride 0.9% 1, 200 20 000 ml @ 20 mls/hr IV . Q24H [facility] Rx#:[id number] propofoL 1,000 mg In 246.614 290.047 76.81 Empty Bag 1 bag @ 5 MCG/ KG/MIN 2.898 mls/hr IV . Q24H [facility] Rx#:[id number] Tube Feeding 150 100 Other 90 90 Output: Urine 36 40 35 Other: Voiding Method Indwelling Catheter Indwelling Catheter # Bowel Movements 1 ABP, PAP, CO, CI - Last Documented Arterial Blood Pressure 109/50 - Exam Patient is currently intubated. He is on the vent. FiO2 at 40% Bilateral breath sounds are heard Abdomen is soft nontender Examination lower extremities shows chronic skin changes. Improved edema. BOY'S ADVISER exam cannot be performed as patient is sedated - Labs CBC & Chem 7: 08/05/21 05:34 08/05/21 05:34 Labs: Abnormal Lab Results - Last 24 Hours (Table) 08/04/21 08/05/21 08/05/21 Range/Units 23:13 05:34 05:34 RBC 2.65 L (4.30-5.90) m/uL Hgb 7.9 L D (13.0-17.5) gm/dL Hct 26.5 L (39.0-53.0) % MCHC 29.8 L (31.0-37.0) g/dL RDW 16.6 H (11.5-15.5) % Neutrophils # 9.4 H (1.3-7.7) k/uL Lymphocytes # 0.5 L (1.0-4.8) k/uL ABG Total CO2 (19-24) mmol/L ABG O2 Saturation (94-97) % Sodium 132 L (137-145) mmol/L BUN 25 H (9-20) mg/dL Creatinine 2.83 H (0.66-1.25) mg/dL Glucose 154 H (74-99) mg/dL POC Glucose (mg/dL) 127 H (75-99) mg/dL Calcium 8.3 L (8.4-10.2) mg/dL 08/05/21 08/05/21 Range/Units 05:54 07:23 RBC (4.30-5.90) m/uL Hgb (13.0-17.5) gm/dL Hct (39.0-53.0) % MCHC (31.0-37.0) g/dL RDW (11.5-15.5) % Neutrophils # (1.3-7.7) k/uL Lymphocytes # (1.0-4.8) k/uL ABG Total CO2 25 H (19-24) mmol/L ABG O2 Saturation 98.6 H (94-97) % Sodium (137-145) mmol/L BUN (9-20) mg/dL Creatinine (0.66-1.25) mg/dL Glucose (74-99) mg/dL POC Glucose (mg/dL) 183 H (75-99) mg/dL Calcium (8.4-10.2) mg/dL Microbiology - Last 24 Hours (Table) 08/04/21 20:20 Sputum Culture - Preliminary Sputum Assessment and Plan Assessment: 1. Acute kidney injury most likely ATN, currently nonoliguric. However given the significantly elevated BUN/creatinine creatinine and volume overload with hyperkalemia, started on hemodialysis on 07/27/2021. No obstruction on ultrasound. UA shows trace protein and moderate blood. Serologies ordered to rule out underlying GN. Mostly all workup negative except for slightly decreased C3 levels. Not a candidate for kidney biopsy. 2. Chronic kidney disease NKF stage IIIB secondary to nephrosclerosis with previous creatinine as low as 1.4 in May 2021 but most recently staying as high as 3.1-3.0 on 07/07/2021 with episodes of acute kidney injury during his hospitalizations for CHF and pneumonia. 3. CHF exacerbation, diastolic 4. Volume overload, improving with dialysis. 5. Hyperkalemia associated with acute kidney injury, no urine retention noted, improved post dialysis 6. Acute hypercapnic respiratory failure, currently on the vent. 7. Paroxysmal A. fib with controlled ventricular response status post pacemaker Plan: Hemodialysis today DC Lasix as no significant urine output. Continue with Aranesp
[2021-08-05 12:19] LABS: Glucose,Whole Blood 263 mg/dL (75-99)
--- NOTE | 2021-08-05 12:58 | PCN ---
PROCEDURE NOTE PULMONARY/CRITICAL CARE PROCEDURE NOTE: Endotracheal intubation. PREOPERATIVE DIAGNOSIS: Failed drone pilot balloon on the prior endotracheal tube. POSTOPERATIVE DIAGNOSIS: Failed drone pilot balloon on the prior endotracheal tube. PROCEDURE DESCRIPTION: The patient was receiving 100% oxygen on the ventilator. There was a clear leak on the old endotracheal tube. The endotracheal tube changeover stylet was used. It was inserted through the old endotracheal tube. The old endotracheal tube was removed. The new endotracheal tube, which is a #8 endotracheal tube, was slipped over the stylet. There was good placement of the tube at 24 cm at the lip. The stylet was removed. The patient was connected to the ventilator after the drone pilot balloon was inflated. The exhaled tidal volumes were what they should be. The patient tolerated the procedure well. The saturations were always above 97%. There was no immediate complication. MMODL / IJN: [id number] /
[2021-08-05] MEDS: allopurinoL 100 MG TAB PO SCH (14:39)
[2021-08-05] MEDS: NOREPINEPHRINE 8 MG in SODIUM CHLORIDE 0.9% 250 ML IV SCH (15:47)
--- NOTE | 2021-08-05 17:43 | P.PN ---
Subjective Progress Note Date: 08/05/21 Principal diagnosis: Anemia A 65-year-old male with multiple comorbidities including atrial fibrillation on Eliquis, heart failure, COPD oxygen dependent who presented to the emergency department with weakness and shortness of breath. He was diagnosed with acute on chronic kidney injury and he required hemodialysis, yesterday he underwent permacath placement. He is seen as a follow up. He remains in ICU intubated and sedated. He had a large bowel movement which was brown. NO other signs of GI bleed. Hg 7.9 Objective - Vital Signs Vital signs: Vital Signs Temp 99.2 F 08/05/21 04:00 Pulse 94 08/05/21 07:46 Resp 34 H 08/05/21 07:00 BP 103/62 08/05/21 07:00 Pulse Ox 99 08/05/21 07:00 Intake & Output 08/04/21 08/05/21 08/05/21 18:59 06:59 18:59 Intake Total 629.729 990.816 119.926 Output Total 36 40 0 Balance 593.729 950.816 119.926 Weight 96.615 kg 92.8 kg Intake: Intake, IV Titration 629.729 750.816 99.926 Amount Lactated Ringers 1,000 ml 220 20 @ 20 mls/hr IV .Q24H [facility] Rx#:[id number] Norepinephrine 8 mg In 183.115 120.769 3.116 Sodium Chloride 0.9% 250 ml @ 0.05 MCG/KG/MIN 9. 348 mls/hr IV .Q24H [facility] Rx#:[id number] Piperacillin-Tazobactam 3 100 .375 gm In Sodium Chloride 0.9% 100 ml @ 25 mls/hr IVPB Q8HR [facility] Rx# :[id number] Sodium Chloride 0.9% 1, 200 20 000 ml @ 20 mls/hr IV . Q24H [facility] Rx#:[id number] propofoL 1,000 mg In 246.614 290.047 76.81 Empty Bag 1 bag @ 5 MCG/ KG/MIN 2.898 mls/hr IV . Q24H [facility] Rx#:[id number] Tube Feeding 150 20 Other 90 Output: Urine 36 40 0 Other: Voiding Method Indwelling Catheter Indwelling Catheter ABP, PAP, CO, CI - Last Documented Arterial Blood Pressure 118/48 - Exam General appearance: The patient is sedated and intubated. HET: Head is normocephalic and atraumatic. Conjunctiva pink. Sclera anicteric. Neck: Supple without lymphadenopathy. Abdomen: Soft, nondistended with bowel sounds. No guarding or rigidity. Extremities: Normal skin color and turgor. No pedal edema Skin: No rashes, no jaundice Neurological: Sedated and intubated. - Labs CBC & Chem 7: 08/06/21 04:01 08/06/21 04:01 Labs: Abnormal Lab Results - Last 24 Hours (Table) 08/04/21 08/05/21 08/05/21 Range/Units 23:13 05:34 05:34 RBC 2.65 L (4.30-5.90) m/uL Hgb 7.9 L D (13.0-17.5) gm/dL Hct 26.5 L (39.0-53.0) % MCHC 29.8 L (31.0-37.0) g/dL RDW 16.6 H (11.5-15.5) % Neutrophils # 9.4 H (1.3-7.7) k/uL Lymphocytes # 0.5 L (1.0-4.8) k/uL ABG Total CO2 (19-24) mmol/L ABG O2 Saturation (94-97) % Sodium 132 L (137-145) mmol/L BUN 25 H (9-20) mg/dL Creatinine 2.83 H (0.66-1.25) mg/dL Glucose 154 H (74-99) mg/dL POC Glucose (mg/dL) 127 H (75-99) mg/dL Calcium 8.3 L (8.4-10.2) mg/dL 08/05/21 08/05/21 Range/Units 05:54 07:23 RBC (4.30-5.90) m/uL Hgb (13.0-17.5) gm/dL Hct (39.0-53.0) % MCHC (31.0-37.0) g/dL RDW (11.5-15.5) % Neutrophils # (1.3-7.7) k/uL Lymphocytes # (1.0-4.8) k/uL ABG Total CO2 25 H (19-24) mmol/L ABG O2 Saturation 98.6 H (94-97) % Sodium (137-145) mmol/L BUN (9-20) mg/dL Creatinine (0.66-1.25) mg/dL Glucose (74-99) mg/dL POC Glucose (mg/dL) 183 H (75-99) mg/dL Calcium (8.4-10.2) mg/dL Microbiology - Last 24 Hours (Table) 08/04/21 20:20 Sputum Culture - Preliminary Sputum Assessment and Plan (1) Anemia Narrative/Plan: A 65-year-old male with a history multiple comorbidities who presented to the emergency department but a week ago with complaints of shortness of breath and lower extremity swelling. He has a history of atrial fibrillation and chronic anemia however he had a significant drop in his hemoglobin during this admission. Patient does take Eliquis for his atrial fibrillation last dose yesterday morning. He has a history of chronic kidney disease with acute kidney failure requiring hemodialysis. He is scheduled this afternoon for a permacath. He is currently receiving dialysis and likely has a component of anemia of chronic disease however with significant drop in hemoglobin and iron studies consistent with an iron deficiency anemia on anticoagulation recommendation would be upper and lower endoscopy for further evaluation. He has denied any overt signs of bleeding, denies any black stool or blood in his stool. He is currently getting 1 unit of PRBC transfusion for hemoglobin of 5.7. Possible etiologies again include anemia chronic disease, with possible underlying liver disease from alcohol abuse, chronic renal failure, as well as possible AVM, esophagitis, peptic ulcer disease, or other possible etiologies. Discussed with patient and well plan for EGD and colonoscopy on Monday. Will start clear liquid diet tomorrow and prep for colonoscopy. We'll reschedule EGD and colonoscopy tentatively for due to fluid overload and need for hemodialysis. Current Visit: Yes Status: Acute Code(s): D64.9 - ANEMIA, UNSPECIFIED SNOMED Code(s): 756664919 (2) H/O ETOH abuse Narrative/Plan: The patient has a long standing history of alcohol abuse. He admits that his last alcoholic drink was about 2 months ago. He did not give further information on how much she had been drinking but states that he has cut back. Current Visit: No Status: Chronic Code(s): Z87.898 - PERSONAL HISTORY OF OTHER SPECIFIED CONDITIONS SNOMED Code(s): 801433436 (3) Atrial fibrillation Current Visit: Yes Status: Acute Code(s): I48.91 - UNSPECIFIED ATRIAL FIBRILLATION SNOMED Code(s): 30667165 (4) Acute on chronic renal failure Narrative/Plan: Patient to undergo permacath placement today. Currently undergoing hemodialysis, will be a Monday schedule. The patient still has fluid overload, requiring hemodialysis again today. We'll reschedule EGD colonoscopy tentatively for Current Visit: No Status: Acute Code(s): N17.9 - ACUTE KIDNEY FAILURE, UNSPECIFIED; N18.9 - CHRONIC KIDNEY DISEASE, UNSPECIFIED SNOMED Code(s): 957135306 (5) Diabetes Current Visit: No Status: Chronic Code(s): E11.9 - TYPE 2 DIABETES MELLITUS WITHOUT COMPLICATIONS SNOMED Code(s): 13725740 (6) Acute respiratory failure with hypoxia Current Visit: Yes Status: Acute Code(s): J96.01 - ACUTE RESPIRATORY FAILURE WITH HYPOXIA SNOMED Code(s): 36500421 Plan: 1. Continue with symptomatic and supportive care 2. Continue with ICU management 3. Continue to monitor signs and symptoms of GI bleed 4. Hemodialysis per nephrology 5. Patient may have tube feedings 6. No plans at this time for any endoscopic evaluation Thank you for this consultation, we will be on stand by if further needed. Dr. Monse Coffman I agree with the dictator's note, documented as a scribe by Sameera Alexander.
[2021-08-05 18:13] LABS: Glucose,Whole Blood 163 mg/dL (75-99)
--- NOTE | 2021-08-05 19:08 | P.PN ---
Subjective Patient is a 65-year-old male with multiple medical problems multiple comorbidities was recently discharged from the hospital after he was treated for volume or note from chronic gastritis function and the cardiorenal syndrome. Patient was discharged to rehab facility 2 days into rehab related patient patient went home and started having shortness of breath volume overload diffuse anasarca and pedal edema. Patient is found to be in significant volume or lower chest x-ray showed bilateral pleural effusion although this appears to have improved compared to last admission when he had thoracentesis. Patient has significant lab abnormalities including creatinine going up to around 10 potassium 6.2 very low magnesium of 0.9 nephrology was consulted. As per nephrology patient will lead hemodialysis, consult to vascular surgery was placed for hemodialysis catheter placement and patient will be subsequently started on hemodialysis. Patient does have advanced COPD uses about 5 L of oxygen. 07/28/2021 Patient is seen and evaluated and follow-up has received hemodialysis catheter and is receiving hemodialysis today. Kidney functions improving and patient reports to producing more urine. Current creatinine is 7.6 today potassium is 5 .5 and sodium is 139. Blood sugars have been more manageable and will continue current regimen. Patient continues on 5 L via nasal cannula which is chronic for him. Nephrology following closely and will continue with dialysis daily at this time. Patient is also maintained on IV Lasix and will continue. Patient denies chest pain, shortness of breath, or palpitations. Patient is afebrile. No nausea or vomiting noted and patient is tolerating diet. subjective: resume the care of the pt today 07/29/2021 This is a pleasant 65 years old male with stage IV chronic kidney disease presents with fatigue and worsening kidney function requiring hemodialysis which is a started during this admission after a catheter placed in the right groin. He is hemodynamically stable, he is on 5 L per minute of oxygen but saturating 98-99%, we will try to titrate his oxygen down. No much dyspnea or cough and while he is lying flat in bed but he feels very weak all over. His been having recurrent nausea vomiting, mainly worked first of this morning but he is fully awake with no headache. No abdominal pain. He is hemodynamically stable, hemoglobin 7.4 with evidence of chronic anemia, also he is on ferrous sulfate once daily at home. This currently on home dose of liquids 2.5 and IV Lasix 60 mg twice daily. Ultrasound of the abdomen showing no hydronephrosis or nephrolithiasis. And chest x-ray showed small right pleural effusion with atelectasis. Also patient has chronic left leg wound secondary to a fall about 3 months ago. Patient refused to take the dressing off. We consulted once care. Patient is on Zofran already, we added Phenergan. We ordered a KUB. Also ask for PT OT evaluation. WOUND TEAM CONSULT 07/30/2021 Patient awake alert, no much tachypnea but he stayed in bed most of the time, he still at baseline of 4 L/m of oxygen. However patient reports coughing a lot and making a lot of phlegm, he said he has been diagnosed with pneumonia 2 weeks ago. Actually chest x-ray from yesterday showing bilateral infiltrate, I reviewed the chest x-ray by myself and it looks worse compared to admission despite starting him on a new hemodialysis and receiving Lasix for his CHF. Also we checked his pro-calcitonin and it is elevated at 0.5 for which is consistent with infection with this constellation of CHF, chest x-ray findings and elevated pro-calcitonin. Most likely and high suspicion for hospital acquired pneumonia and patient is a started on Zosyn last night. We going to repeat chest x-ray tomorrow morning. Bladder scan show minimal urine, Flomax was discontinued. Wound care R following the patient for his left foot wound. 07/31/2021 Patient seen in bed most of the time, physical therapy recommended rehab, I talked to him today about this recommendation and he is refusing now. He still on 4 L oxygen nasal cannula which looks like he is this is his baseline however he has coarse crepitation looks like it comes from secretion with decreased air entry on both sides, patient confirms to me he has history of COPD. However I would recommend he follow up with a receiving checker as an outpatient. Repeat chest x-ray today showing no worsening infiltrate however it shows Similar multifocal airspace opacities. Correlate for congestive heart failure and/or diffuse airspace disease in the meantime we will keep him on Zosyn and check a pro-calcitonin tomorrow, if improvement we may consider oral antibiotic. However started on Solu-Medrol 60 mg 3 times a day today. He is kept on IV Lasix and hemodialysis I discussed the case with nephrology team and they recommended the permacath prior to discharge, discussed with bed side nurse to inform surgical vascular team. 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 08/01/2021 Patient clinically is doing well generally, he is breathing quietly, he is tolerating diet well, no bowel movement today Nephrology team on the case and plan for him to get the permacath by vascular surgery team hopefully tomorrow. Also his evidence of COPD exacerbation which is improving therefore Solu-Medrol our to 40 mg twice a day. Pro-calcitonin still elevated 0.68, currently on Zosyn, sputum cultures pending. However patient only having cough and phlegm which is pending as above. Saturation is 4-5 L/m which is his baseline. Rehab is recommended but patient was reluctant so far. 08/02/2021 Patient is lying in bed most of the time, his breathing is at baseline and is i mproving with less crepitation but he is coughing a lot . His oxygen requirement at baseline on 4 L/m which is his home dose. his hemoglobin dropped today to 5.7, his workup showing anemia of chronic disease despite being an IV and oral iron, workup showing anemia of chronic disease but cannot rule out GI bleed especially he's on liquids which is on hold today before going for procedure. Therefore we going to consult GI service in any way. Occult blood in his stool test is requested. Patient states he has 3- 4 loose bowel movements, we will check C. diff as well. No abdominal pain or vomiting. Patient is going for permacath placement today and hemodialysis tomorrow, he got hemodialysis this morning. Patient adamantly refusing to go to rehab despite recommendation for medical and nephrology team on several occasions. Patient and make his own decisions. 08/03/2021 Patient now wake and breathing comfortably at baseline, he is less coughing compared to yesterday after started on Robitussin D but today he wants to, more so I can bring stuff up out of his chest, therefore we change his Robitussin into when necessary dosing and he was informed. No chest pain or other symptoms. However there was some concerns of pulmonary congestion there for his colonoscopy/EGD for tomorrow is rescheduled until . He is placed on liquid diet therefore we lowered his Levemir form 25 units which is home dose down to 10 units tonight. His chest x-ray looks the same Reticulocyte count is 1.5 but he got one unit of transfusion. Currently hemoglobin is holding at 8.1, glucose control, magnesium normal at 2.2, sodium at 1:30 and he is saturating at 4-5 L/m which is home dose. Diarrhea stopped, occult blood in stool is negative and C. diff negative. 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 Repeat CT of the chest today showed no evidence of pulmonary embolism and there is extensive bilateral infiltrates concerning for aspiration. Currently he is saturating 98% on FiO2 of 50% and respiratory rate of 26. Labs reviewed and showing WBC of 14.6, creatinine down to 1.6, hemoglobin 10, potassium after placement 3.4. Patient labs reviewed remains on Zosyn, Pro-calcitonin is improving down to 0.3 prior to this episode of aspiration. Patient remains afebrile for now. His Eliquis remains on hold in view of his history of A. fib due for suspected GI bleed. Patient remains on Zosyn, Protonix and insulin sliding scale. Also patient placed on Lasix 80 mg daily and receives an extra dose this morning. While insulin 10 units is held 08/05/2021 Patient remains in the ICU sedated and intubated. He is off Levophed today. Metoprolol was held yesterday and his blood pressure improved, and this morning 87/54 and his rate was sinus rhythm at 93, no evidence of A. fib and RVR given his history of similar problem. Hemoglobin 7.9, which is known he is anemic, his Eliquis is still on hold for possible GI bleed with planned to undergo EGD/colonoscopy at certain point per GI team her on the case. Creatinine went up to 0.8. He is undergoing hemodialysis. Chest x-ray showed some improvement by a radiologist Remains on IV Zosyn for his recurrent aspiration pneumonia. Also Lasix was held. His prognosis remains guarded Objective - Vital Signs Vital signs: Vital Signs Temp 99.2 F 08/05/21 04:00 Pulse 94 08/05/21 07:46 Resp 34 H 08/05/21 07:00 BP 103/62 08/05/21 07:00 Pulse Ox 99 08/05/21 07:00 Intake & Output 08/04/21 08/05/21 08/05/21 18:59 06:59 18:59 Intake Total 629.729 990.816 119.926 Output Total 36 40 0 Balance 593.729 950.816 119.926 Weight 96.615 kg 92.8 kg Intake: Intake, IV Titration 629.729 750.816 99.926 Amount Lactated Ringers 1,000 ml 220 20 @ 20 mls/hr IV .Q24H [facility] Rx#:[id number] Norepinephrine 8 mg In 183.115 120.769 3.116 Sodium Chloride 0.9% 250 ml @ 0.05 MCG/KG/MIN 9. 348 mls/hr IV .Q24H [facility] Rx#:[id number] Piperacillin-Tazobactam 3 100 .375 gm In Sodium Chloride 0.9% 100 ml @ 25 mls/hr IVPB Q8HR [facility] Rx# :[id number] Sodium Chloride 0.9% 1, 200 20 000 ml @ 20 mls/hr IV . Q24H [facility] Rx#:[id number] propofoL 1,000 mg In 246.614 290.047 76.81 Empty Bag 1 bag @ 5 MCG/ KG/MIN 2.898 mls/hr IV . Q24H [facility] Rx#:[id number] Tube Feeding 150 20 Other 90 Output: Urine 36 40 0 Other: Voiding Method Indwelling Catheter Indwelling Catheter ABP, PAP, CO, CI - Last Documented Arterial Blood Pressure 118/48 - Exam -GENERAL: The patient is intubated and sedated HEENT: Pupils are round and equally reacting to light. EOMI. No scleral icterus. No conjunctival pallor. Normocephalic, atraumatic. No pharyngeal erythema. No thyromegaly. CARDIOVASCULAR: S1 and S2 present. No murmurs, rubs, or gallops. -PULMONARY: Chest is clear to auscultation, no wheezing or crackles. Decreased breath sounds on both sides with weak expiratory efforts. Right upper chest permacath ABDOMEN: Soft, nontender, nondistended, normoactive bowel sounds. No palpable organomegaly. MUSCULOSKELETAL: No joint swelling or deformity. EXTREMITIES: No cyanosis, clubbing, or pedal edema. Left leg wound with dressing. NEUROLOGICAL: Gross neurological examination did not reveal any focal deficits. SKIN: No rashes. no petechiae. - Labs CBC & Chem 7: 08/05/21 05:34 08/05/21 05:34 Labs: Abnormal Lab Results - Last 24 Hours (Table) 08/04/21 08/05/21 08/05/21 Range/Units 23:13 05:34 05:34 RBC 2.65 L (4.30-5.90) m/uL Hgb 7.9 L D (13.0-17.5) gm/dL Hct 26.5 L (39.0-53.0) % MCHC 29.8 L (31.0-37.0) g/dL RDW 16.6 H (11.5-15.5) % Neutrophils # 9.4 H (1.3-7.7) k/uL Lymphocytes # 0.5 L (1.0-4.8) k/uL ABG Total CO2 (19-24) mmol/L ABG O2 Saturation (94-97) % Sodium 132 L (137-145) mmol/L BUN 25 H (9-20) mg/dL Creatinine 2.83 H (0.66-1.25) mg/dL Glucose 154 H (74-99) mg/dL POC Glucose (mg/dL) 127 H (75-99) mg/dL Calcium 8.3 L (8.4-10.2) mg/dL 08/05/21 08/05/21 Range/Units 05:54 07:23 RBC (4.30-5.90) m/uL Hgb (13.0-17.5) gm/dL Hct (39.0-53.0) % MCHC (31.0-37.0) g/dL RDW (11.5-15.5) % Neutrophils # (1.3-7.7) k/uL Lymphocytes # (1.0-4.8) k/uL ABG Total CO2 25 H (19-24) mmol/L ABG O2 Saturation 98.6 H (94-97) % Sodium (137-145) mmol/L BUN (9-20) mg/dL Creatinine (0.66-1.25) mg/dL Glucose (74-99) mg/dL POC Glucose (mg/dL) 183 H (75-99) mg/dL Calcium (8.4-10.2) mg/dL Microbiology - Last 24 Hours (Table) 08/04/21 20:20 Sputum Culture - Preliminary Sputum Assessment and Plan Assessment: - Recurrent aspiration leading to respiratory distress and currently being intubated on mechanical ventilation in the ICU - Bilateral hospital acquired pneumonia is highly suspected - Acute kidney injury on stage IV CKD, started on D during this admission - acute diastolic congestive heart failure secondary to cardiorenal - anasarca secondary to cardiorenal syndrome as mentioned above. Hemodialysis daily per nephrology for now - Anemia of chronic disease, with recent drop in hemoglobin. Rule out GI bleed - Loose bowel movement, C. diff colitis ruled out -Hypomagnesemia magnesium will be replaced per Protocol -Chronic respiratory failure secondary to COPD , 5 L of oxygen at home. There is evidence of acute exacerbation -Possible pneumonia, hospital-acquired with elevated pro-calcitonin 0.5 -Hypertension -Hyperlipidemia -Hypothyroidism -History of recent fall and fracture to the left wrist with malunion noted -Paroxsymal atrial fibrillation presently rate controlled patient does have sick sinus syndrome history patient has a pacemaker -Type 2 diabetes mellitus Plan: This is a pleasant 65 years old male presents with acute kidney injury and CHF. Started on hemodialysis. Continue with mechanical ventilation with pulmonary/critical care team will consult Continue with Zosyn and follow-up culture results Continue with hemodialysis per nephrology team. Patient will need permacath, vascular surgery paged Continue with Lasix. Continue with home dose Eliquis 2.5 mg(on hold for possible bi bleed). Continue with insulin and ISS. Consult wound care Consult GI hold Levemir Labs and medication were reviewed.. Continue same treatment. Continue with symptomatic treatment. Resume home medication. Monitor lytes and vitals. DVT and GI prophylaxis. Further recommendation sas per clinical course of the patient DVT prophylaxis: Eliquis (On hold ) GI Prophylaxis: Ppi PT/OT: Recommended subacute rehab, social science research assistant consult Prognosis is guarded
[2021-08-05] MEDS: METOPROLOL SUCCINATE (ER) 50 MG TAB.ER.24H PO SCH (20:31)
[2021-08-05] MEDS: LACTATED RINGERS 1,000 ML IV SCH (20:37)
[2021-08-05 23:56] LABS: Glucose,Whole Blood 255 mg/dL (75-99)
[2021-08-06] MEDS: IPRATROPIUM-ALBUTEROL 3 ML NEB INHALATION SCH ×6 (00:07→20:08)
[2021-08-06] MEDS: PIPERACILLIN-TAZOBACTAM 3.375 GM in SODIUM CHLORIDE 0.9% 100 ML IVPB SCH ×3 (00:15→16:35)
[2021-08-06] MEDS: INSULIN ASPART (NovoLOG) 100 UNIT/ML VIAL SQ SCH ×4 (00:16→21:42)
[2021-08-06] MEDS: NOREPINEPHRINE 8 MG in SODIUM CHLORIDE 0.9% 250 ML IV SCH (01:13)
[2021-08-06 04:25] LABS: Anisocytosis Slight; Basophils % (A) 0 %; Eosinophils # (A) 0.1 k/uL (0-0.7); Eosinophils % (A) 1 %; HCT 26.7 % (39.0-53.0); HGB 7.9 gm/dL (13.0-17.5); Hypochromasia Marked; Lymphocytes # (A) 0.5 k/uL (1.0-4.8); Lymphocytes % (A) 4 %; MCH 29.4 pg (25.0-35.0); MCHC 29.4 g/dL (31.0-37.0); MCV 99.8 fL (80.0-100.0); Macrocytosis Slight; Mean Platelet Volume 9.1; Monocytes # (A) 0.7 k/uL (0-1.0); Monocytes % (A) 5 %; Neutrophils # (A) 13.2 k/uL (1.3-7.7); Neutrophils % (A) 89 %; Platelet Count 199 k/uL (150-450); Poikilocytosis Slight; RBC 2.68 m/uL (4.30-5.90); RDW 16.9 % (11.5-15.5); WBC 14.7 k/uL (3.8-10.6)
[2021-08-06 04:57] LABS: Calcium 8.7 mg/dL (8.4-10.2); Potassium 3.3 mmol/L (3.5-5.1)
[2021-08-06 05:58] LABS: ABG Base Excess 0.9 mmol/L; ABG HCO3 27 mmol/L (21-25); ABG Oxygen Saturation 96.6 % (94-97); ABG PCO2 49 mmHg (35-45); ABG PH 7.35 (7.35-7.45); ABG PO2 78 mmHg (83-108); ABG TCO2 28 mmol/L (19-24); Allen Test Performed? Yes
[2021-08-06 06:38] LABS: Glucose,Whole Blood 255 mg/dL (75-99)
[2021-08-06] MEDS: LEVOTHYROXINE 25 MCG TAB PO SCH (06:40)
[2021-08-06] MEDS: BUDESONIDE 1 MG/2 ML NEBU INHALATION SCH ×2 (07:14→20:08)
[2021-08-06] MEDS: FORMOTEROL FUMARATE 20 MCG/2 ML NEBU INHALATION SCH ×2 (07:14→20:08)
[2021-08-06] MEDS ORDERED: POTASSIUM BICARBONATE/CIT AC 20 MEQ TABLET.EFF PO ONE (08:00)
--- NOTE | 2021-08-06 08:58 | XR ---
EXAMINATION TYPE: XR chest 1V portable DATE OF EXAM: 08/06/2021 COMPARISON: Chest x-ray 08/05/2021 HISTORY: Intubated TECHNIQUE: Single frontal view of the chest is obtained. FINDINGS: Endotracheal tube and NG tube are in place. There is a right jugular central venous dialys is catheter and pacemaker stable compared to prior exam. Patient is rotated, there are overlying tracy facts. There is no evident pneumothorax. Bibasilar increased attenuation is present, there is promine nce interstitium, groundglass opacity noted within the left upper lobe. Cardiac mediastinal silhouett e is stable. There are prominent lung volumes. IMPRESSION: Correlate for possible edema versus pneumonia, there may be small basilar effusions, the re is underlying emphysema.
--- NOTE | 2021-08-06 11:03 | P.PN ---
Subjective Progress Note Date: 08/06/21 Principal diagnosis: Respiratory failure. Pulmonary consultation dated 08/04/2021. 65-year-old male who's been here since July 26. We are just asked to see him today. Before we actually saw him, he apparently was having hemodialysis, for fluid overload, and, had an uneventful hemodialysis run. Subsequent to that, he apparently developed respiratory distress, and, I was called by the hospital doctor, who thought the patient could not protect his airway, and was having im pending respiratory arrest. I asked her to call anesthesia to have been intubated, and transferred down to the intensive care unit. In the ICU, we placed a right femoral triple-lumen catheter, and a rate femoral artery arterial line. We made some adjustments to his ventilator, drop the FiO2 down to 50%, and also increasing the rate from 20 to 26 breaths per minute. In addition, the patient was placed on propofol for sedation, and also norepinephrine for blood pressure support. He initially was seen back on July 26 in the emergency room. He came in with complaints of fluid retention, shortness of breath, and leg swelling. He also had a recent history of injury to the left forearm, I believe a fracture to one of the bones in the left forearm. We had not been consulted before today, apparently for an abnormal chest x-ray showing some infiltrates in the left mid lung. Unfortunately, we could not talk to him prior to intubation, to get a sense of what was going on with him. He has a history of atrial fibrillation, CHF, COPD, diabetes, DVT, GERD, hyperlipidemia, hypertension, pn eumonia, end-stage renal disease, and sleep apnea, among other things. He is quite an extensive medical history, as can be seen on the H&P/ER note. White count 14.6, hemoglobin 10, hematocrit 33.3, and platelet count 316,000. Initial blood gases done before transfer, showed a pO2 167 a pCO2 of 107 and a pH is 7.09. Blood gases after intubation, showed a pO2 that was greater than 400, pCO2 that was 67, and a pH of 7.26. The vent settings at that time included AC mode, rate 20, tidal volume 450, FiO2 100%, PEEP of 5. After the post intubation blood gases were obtained, the rate on the ventilator was increased to 26, and the FiO2 was dropped down to 50%. Sodium 138, potassium 3.4, chlori shabana 99, CO2 30, anion gap 9, BUN 15, creatinine 1.77. Chest x-ray shows some diffuse interstitial changes, bilateral pleural effusions, and some infiltrate in the left midlung. Progress note dated 08/05/2021. 65-year-old male, seen in consultation yesterday. The patient developed respiratory distress, requiring intubation and mechanical ventilation, and transferred to the intensive care unit yesterday, after undergoing hemodialysis, where 3 L was removed. The patient had a right femoral triple-lumen catheter placed as well as a right femoral arterial line. Unfortunately, the arterial line is no longer functioning. A right brachial arterial line was placed today. In addition, there was a leak about the endotracheal tube, and that was also replaced. Currently, the patient remains on the mechanical ventilator. His current settings include the volume assist control, rate 26, tidal volume 450, FiO2 40%, and PEEP of 5. Blood gases show pO2 107, pCO2 40, and pH is 7.39. Norepinephrine has been weaned off. The patient's on propofol at 50 mcg/kg/m, lactated Ringer's at 20 mL an hour, and Nepro feeds, at 20 mL, with a goal of 33 mL an hour. White count 10.4, and 7.9, hematocrit 26.5, and platelet count 192,000. Sodium 132, potassium 3.8, chlorides 98, CO2 22, anion gap 12, BUN 25, creatinine 2.83. Microbiologic studies are negative. Chest x-ray shows improvement in the patient's lung findings. Endotracheal tube in good position. NG tube in good position. A CT angiogram was done yesterday, and showed findings consistent with fluid overload. There are bilateral pleural effusions. There is was no pulmonary embolism. Progress note dated 08/06/2021. 65-year-old male with a history of respiratory failure, requiring intubation and mechanical ventilation. This occurred after recent hemodialysis run. The patient remains on the mechanical ventilator. Yesterday, hemodialysis was performed, and 2 L was removed. Also yesterday, we placed a right brachial arterial line, and had to change out the endotracheal tube, as it was a leak in the commuter pilot balloon. Currently, he is on volume assist control, rate 26, tidal volume 450, FiO2 40%, and PEEP of 5. Blood gases show pO2 78, pCO2 49, pH is 7.35. The patient's on norepinephrine at 0.11 mcg/kg/m, propofol at 50 mcg/kg/m, lactated Ringer's at 20 mL an hour, and Nepro at goal, which is 33 mL an hour today, we will attempt a daily interruption of sedation and possibly, a breathing trial. White count 14.7, hemoglobin 7.9, hematocrit 26.7, and platelet count 199,000. Sodium 141, potassium 3.3, chlorides 108, CO2 25, anion gap 8, BUN 18, and creatinine 2.17. Chest x-ray, in my opinion, continues to show mild to moderate fluid overload. Objective - Vital Signs Vital signs: Vital Signs Temp 99.0 F 08/06/21 04:00 Pulse 70 08/06/21 07:42 Resp 20 08/06/21 07:00 BP 117/54 08/05/21 17:39 Pulse Ox 94 L 08/06/21 07:00 Intake & Output 08/05/21 08/06/21 08/06/21 18:59 06:59 18:59 Intake Total 3443.390 3937.444 Output Total 2055 5 Balance -287.969 8674.444 Intake: Intake, IV Titration 986.239 876.444 Amount Lactated Ringers 1,000 ml 220 260 @ 20 mls/hr IV .Q24H [facility] Rx#:[id number] Norepinephrine 8 mg In 228.081 316.444 Sodium Chloride 0.9% 250 ml @ 0.05 MCG/KG/MIN 9. 348 mls/hr IV .Q24H [facility] Rx#:[id number] Piperacillin-Tazobactam 3 200 100 .375 gm In Sodium Chloride 0.9% 100 ml @ 25 mls/hr IVPB Q8HR [facility] Rx# :[id number] propofoL 1,000 mg In 338.158 200 Empty Bag 1 bag @ 5 MCG/ KG/MIN 2.898 mls/hr IV . Q24H [facility] Rx#:[id number] Tube Feeding 373 462 Other 190 90 Output: Urine 55 5 Hemodialysis 2000 Other: Voiding Method Indwelling Catheter Indwelling Catheter # Bowel Movements 1 ABP, PAP, CO, CI - Last Documented Arterial Blood Pressure 119/48 - Exam No acute distress, sedated, with an orally placed endotracheal tube and NG tube. The patient is chronically ill appearing. HEENT examination is grossly unremarkable. Neck supple. Full range of motion. No adenopathy thyromegaly or neck vein distention. Cardiovascular examination reveals regular rhythm rate. S1-S2 normal. No S3 or S4. No discernible murmur noted. Heart rate 70 bpm. Lungs reveal coarse bilateral rhonchi, and bilateral crackles. No wheezes. Breath sounds equal bilaterally. Abdomen soft, without bowel sounds. Extremities are intact. No cyanosis clubbing or edema. Skin is without rash or lesion. Neurologic examination cannot be properly assessed. - Labs CBC & Chem 7: 08/06/21 04:01 08/06/21 04:01 Labs: Abnormal Lab Results - Last 24 Hours (Table) 08/05/21 08/05/21 08/05/21 Range/Units 12:17 18:11 23:54 WBC (3.8-10.6) k/uL RBC (4.30-5.90) m/uL Hgb (13.0-17.5) gm/dL Hct (39.0-53.0) % MCHC (31.0-37.0) g/dL RDW (11.5-15.5) % Neutrophils # (1.3-7.7) k/uL Lymphocytes # (1.0-4.8) k/uL ABG pCO2 (35-45) mmHg ABG pO2 (83-108) mmHg ABG HCO3 (21-25) mmol/L ABG Total CO2 (19-24) mmol/L Potassium (3.5-5.1) mmol/L Chloride (98-107) mmol/L Creatinine (0.66-1.25) mg/dL Glucose (74-99) mg/dL POC Glucose (mg/dL) 263 H 163 H 255 H (75-99) mg/dL 08/06/21 08/06/21 08/06/21 Range/Units 04:01 04:01 05:55 WBC 14.7 H (3.8-10.6) k/uL RBC 2.68 L (4.30-5.90) m/uL Hgb 7.9 L (13.0-17.5) gm/dL Hct 26.7 L (39.0-53.0) % MCHC 29.4 L (31.0-37.0) g/dL RDW 16.9 H (11.5-15.5) % Neutrophils # 13.2 H (1.3-7.7) k/uL Lymphocytes # 0.5 L (1.0-4.8) k/uL ABG pCO2 49 H (35-45) mmHg ABG pO2 78 L (83-108) mmHg ABG HCO3 27 H (21-25) mmol/L ABG Total CO2 28 H (19-24) mmol/L Potassium 3.3 L (3.5-5.1) mmol/L Chloride 108 H (98-107) mmol/L Creatinine 2.17 H (0.66-1.25) mg/dL Glucose 237 H (74-99) mg/dL POC Glucose (mg/dL) (75-99) mg/dL 08/06/21 Range/Units 06:36 WBC (3.8-10.6) k/uL RBC (4.30-5.90) m/uL Hgb (13.0-17.5) gm/dL Hct (39.0-53.0) % MCHC (31.0-37.0) g/dL RDW (11.5-15.5) % Neutrophils # (1.3-7.7) k/uL Lymphocytes # (1.0-4.8) k/uL ABG pCO2 (35-45) mmHg ABG pO2 (83-108) mmHg ABG HCO3 (21-25) mmol/L ABG Total CO2 (19-24) mmol/L Potassium (3.5-5.1) mmol/L Chloride (98-107) mmol/L Creatinine (0.66-1.25) mg/dL Glucose (74-99) mg/dL POC Glucose (mg/dL) 255 H (75-99) mg/dL Microbiology - Last 24 Hours (Table) 08/04/21 20:20 Gram Stain - Preliminary Sputum Sputum Culture - Preliminary Assessment and Plan Assessment: Acute hypoxemic respiratory failure, requiring intubation and mechanical ventilation on 08/04/2021. Chronic kidney disease, requiring hemodialysis. History of chronic atrial fibrillation. History of CHF. History of COPD. History of diabetes mellitus. History of DVT. History of gastroesophageal reflux disease. History of hyperlipidemia. History of hypertension. History of sleep apnea syndrome. History of pneumonia. Chronic hypoxemic respiratory failure. Multiple comorbidities. Plan: Plan dated 08/04/2021. The patient was intubated upon the floor, and transferred down to the intensive care unit, room 252. A right femoral triple-lumen catheter was placed, as well as a right femoral artery arterial line. The patient was started on propofol for sedation. In addition, the patient will be given norepinephrine for blood pressure support. The FiO2 was turned down from 100%, down to 50%. I told the nurse to have dietary start tube feedings today. Additional recommendations and suggestions are forthcoming. Labs, x-rays, and medications are reviewed. Unnecessary medications will be discontinued. Prognosis is guarded. Continue to follow the patient and make recommendations where appropriate. Plan dated 08/05/2021. The patient will be given some Dilaudid when necessary for pain control. In addition, we will attempt a daily interruption of sedation. The patient is not likely ready for weaning and extubation. In addition, the right femoral art line went bad, and we replaced it with a right brachial arterial line. In addition, there was a leak on the commuter pilot balloon of the endotracheal tube, and a new #8 endotracheal tube was placed, using the endotracheal tube stylet. Labs, x-rays, and medications are all reviewed. Tube feedings will be increased to goal. Additional recommendations and suggestions are forthcoming. The patient has been having daily hemodialysis. We will continue to follow make rec ommendations where appropriate. Prognosis is guarded. Plan dated 08/06/2021. The patient's doing about the same. We did add some Dilaudid for pain control yesterday. Also yesterday, we placed a right brachial arterial line, as the right femoral arterial line had gone bad. In addition, we changed out the endotracheal tube, because there was a leak in the commuter pilot balloon. The patient's labs, x-rays, and medications are all reviewed. The patient did have hemodialysis yesterday, and 2 L was removed. Patient remains on propofol and norepinephrine. Later today the patient will have a daily interruption of sedation, and if stable, possibly a spontaneous breathing trial. We will continue to follow make recommendations where appropriate. Prognosis is guarded. Time with Patient: Greater than 30
[2021-08-06] MEDS: CHLORHEXIDINE GLUCONATE 15 ML CUP MUCOUS MEM SCH ×2 (11:20→21:42)
[2021-08-06] MEDS: PANTOPRAZOLE 40 MG/10 ML VIAL IV SCH (11:21)
[2021-08-06] MEDS: ASCORBIC ACID 500 MG TAB PO SCH ×2 (11:24→21:42)
[2021-08-06] MEDS: CHOLECALCIFEROL 25 MCG (1000 IU) TABLET PO SCH (11:24)
[2021-08-06] MEDS: allopurinoL 100 MG TAB PO SCH (11:24)
[2021-08-06 11:31] LABS: Glucose,Whole Blood 248 mg/dL (75-99)
--- NOTE | 2021-08-06 15:17 | P.PN ---
Subjective Patient is seen for follow-up for acute kidney injury and top of chronic kidney disease Patient has underlying chronic kidney disease stage IV with recent worsening of his renal function since May 2021. Creatinine increased from 1.4 on 05/24/[address] up to 3.1 on 07/05/2021. Patient had acute kidney injury during his hospitalization last month and serum creatinine on discharge was 3.0. Acute kidney injury was mostly cardiorenal. Patient was diuresed and discharged on torsemide. He was admitted to the hospital now with a creatinine of around 10.2. Patient was started on dialysis on 07/27/2021. Patient has been treated for volume overload. Patient is seen in the ICU. He remains on the vent. FiO2 is at 40%. Currently off of levo fed as sedation is being weaned. Blood pressure was on the higher side. No significant urine output Had 2 L of ultrafiltration with hemodialysis yesterday. Objective - Vital Signs Vital signs: Vital Signs Temp 99.0 F 08/06/21 04:00 Pulse 112 H 08/06/21 11:41 Resp 20 08/06/21 07:00 BP 117/54 08/05/21 17:39 Pulse Ox 94 L 08/06/21 07:00 Intake & Output 08/05/21 08/06/21 08/06/21 18:59 06:59 18:59 Intake Total 9931.813 1856.444 Output Total 2055 5 Balance -914.395 2888.444 Weight 92.8 kg Intake: Intake, IV Titration 986.239 876.444 Amount Lactated Ringers 1,000 ml 220 260 @ 20 mls/hr IV .Q24H [facility] Rx#:[id number] Norepinephrine 8 mg In 228.081 316.444 Sodium Chloride 0.9% 250 ml @ 0.05 MCG/KG/MIN 9. 348 mls/hr IV .Q24H [facility] Rx#:[id number] Piperacillin-Tazobactam 3 200 100 .375 gm In Sodium Chloride 0.9% 100 ml @ 25 mls/hr IVPB Q8HR [facility] Rx# :[id number] propofoL 1,000 mg In 338.158 200 Empty Bag 1 bag @ 5 MCG/ KG/MIN 2.898 mls/hr IV . Q24H [facility] Rx#:[id number] Tube Feeding 373 462 Other 190 90 Output: Urine 55 5 Hemodialysis 1999 Other: Voiding Method Indwelling Catheter Indwelling Catheter # Bowel Movements 1 ABP, PAP, CO, CI - Last Documented Arterial Blood Pressure 119/48 - Exam Patient is currently intubated. He is on the vent. FiO2 at 40% Bilateral breath sounds are heard Abdomen is soft nontender Examination lower extremities shows chronic skin changes. Improved edema. 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 - Labs CBC & Chem 7: 08/06/21 04:01 08/06/21 04:01 Labs: Abnormal Lab Results - Last 24 Hours (Table) 08/05/21 08/05/21 08/06/21 Range/Units 18:11 23:54 04:01 WBC 14.7 H (3.8-10.6) k/uL RBC 2.68 L (4.30-5.90) m/uL Hgb 7.9 L (13.0-17.5) gm/dL Hct 26.7 L (39.0-53.0) % MCHC 29.4 L (31.0-37.0) g/dL RDW 16.9 H (11.5-15.5) % Neutrophils # 13.2 H (1.3-7.7) k/uL Lymphocytes # 0.5 L (1.0-4.8) k/uL ABG pCO2 (35-45) mmHg ABG pO2 (83-108) mmHg ABG HCO3 (21-25) mmol/L ABG Total CO2 (19-24) mmol/L Potassium (3.5-5.1) mmol/L Chloride (98-107) mmol/L Creatinine (0.66-1.25) mg/dL Glucose (74-99) mg/dL POC Glucose (mg/dL) 163 H 255 H (75-99) mg/dL 08/06/21 08/06/21 08/06/21 Range/Units 04:01 05:55 06:36 WBC (3.8-10.6) k/uL RBC (4.30-5.90) m/uL Hgb (13.0-17.5) gm/dL Hct (39.0-53.0) % MCHC (31.0-37.0) g/dL RDW (11.5-15.5) % Neutrophils # (1.3-7.7) k/uL Lymphocytes # (1.0-4.8) k/uL ABG pCO2 49 H (35-45) mmHg ABG pO2 78 L (83-108) mmHg ABG HCO3 27 H (21-25) mmol/L ABG Total CO2 28 H (19-24) mmol/L Potassium 3.3 L (3.5-5.1) mmol/L Chloride 108 H (98-107) mmol/L Creatinine 2.17 H (0.66-1.25) mg/dL Glucose 237 H (74-99) mg/dL POC Glucose (mg/dL) 255 H (75-99) mg/dL 08/06/21 Range/Units 11:29 WBC (3.8-10.6) k/uL RBC (4.30-5.90) m/uL Hgb (13.0-17.5) gm/dL Hct (39.0-53.0) % MCHC (31.0-37.0) g/dL RDW (11.5-15.5) % Neutrophils # (1.3-7.7) k/uL Lymphocytes # (1.0-4.8) k/uL ABG pCO2 (35-45) mmHg ABG pO2 (83-108) mmHg ABG HCO3 (21-25) mmol/L ABG Total CO2 (19-24) mmol/L Potassium (3.5-5.1) mmol/L Chloride (98-107) mmol/L Creatinine (0.66-1.25) mg/dL Glucose (74-99) mg/dL POC Glucose (mg/dL) 248 H (75-99) mg/dL Microbiology - Last 24 Hours (Table) 08/04/21 20:20 Gram Stain - Preliminary Sputum Sputum Culture - Preliminary Assessment and Plan Assessment: 1. Acute kidney injury most likely ATN, currently nonoliguric. However given the significantly elevated BUN/creatinine creatinine and volume overload with hyperkalemia, started on hemodialysis on 07/27/2021. No obstruction on ultrasound. UA shows trace protein and moderate blood. Serologies ordered to rule out underlying GN. Mostly all workup negative except for slightly decreased C3 levels. Not a candidate for kidney biopsy. 2. Chronic kidney disease NKF stage IIIB secondary to nephrosclerosis with previous creatinine as low as 1.4 in May 2021 but most recently staying as high as 3.1-3.0 on 07/07/2021 with episodes of acute kidney injury during his hospitalizations for CHF and pneumonia. 3. CHF exacerbation, diastolic 4. Volume overload, improving with dialysis. 5. Hyperkalemia associated with acute kidney injury, no urine retention noted, improved post dialysis 6. Acute hypercapnic respiratory failure, currently on the vent. 7. Paroxysmal A. fib with controlled ventricular response status post pacemaker Plan: Hemodialysis in a.m. Replace potassium
[2021-08-06 18:19] LABS: Glucose,Whole Blood 110 mg/dL (75-99)
[2021-08-06] MEDS: LACTATED RINGERS 1,000 ML IV SCH (21:41)
[2021-08-07] MEDS: METOPROLOL SUCCINATE (ER) 50 MG TAB.ER.24H PO SCH (00:06)
[2021-08-07] MEDS: PIPERACILLIN-TAZOBACTAM 3.375 GM in SODIUM CHLORIDE 0.9% 100 ML IVPB SCH ×3 (00:06→16:24)
[2021-08-07 00:51] LABS: Glucose,Whole Blood 242 mg/dL (75-99)
[2021-08-07] MEDS: INSULIN ASPART (NovoLOG) 100 UNIT/ML VIAL SQ SCH ×4 (00:51→18:17)
[2021-08-07] MEDS: IPRATROPIUM-ALBUTEROL 3 ML NEB INHALATION SCH ×6 (00:59→20:11)
[2021-08-07 06:01] LABS: Glucose,Whole Blood 177 mg/dL (75-99)
[2021-08-07 06:03] LABS: ABG HCO3 26 mmol/L (21-25); ABG Oxygen Saturation 98.8 % (94-97); ABG PCO2 48 mmHg (35-45); ABG PH 7.34 (7.35-7.45); ABG PO2 129 mmHg (83-108); ABG TCO2 27 mmol/L (19-24); Allen Test Performed? Yes
[2021-08-07] MEDS: LEVOTHYROXINE 25 MCG TAB PO SCH (06:04)
[2021-08-07] MEDS: BUDESONIDE 1 MG/2 ML NEBU INHALATION SCH ×2 (07:10→20:11)
[2021-08-07] MEDS: FORMOTEROL FUMARATE 20 MCG/2 ML NEBU INHALATION SCH ×2 (07:10→20:11)
[2021-08-07] MEDS: NOREPINEPHRINE 8 MG in SODIUM CHLORIDE 0.9% 250 ML IV SCH (07:15)
[2021-08-07] MEDS: PANTOPRAZOLE 40 MG/10 ML VIAL IV SCH (08:29)
[2021-08-07] MEDS: CHLORHEXIDINE GLUCONATE 15 ML CUP MUCOUS MEM SCH ×2 (08:29→22:42)
[2021-08-07] MEDS: ASCORBIC ACID 500 MG TAB PO SCH ×2 (08:29→22:42)
[2021-08-07] MEDS: CHOLECALCIFEROL 25 MCG (1000 IU) TABLET PO SCH (08:29)
--- NOTE | 2021-08-07 09:05 | XR ---
EXAMINATION TYPE: XR chest 1V portable DATE OF EXAM: 08/07/2021 CLINICAL HISTORY: Difficulty breathing progress study. TECHNIQUE: Single AP portable semiupright view of the chest is obtained. COMPARISON: Chest x-ray from one day earlier and older studies FINDINGS: Stable endotracheal and orogastric tubes. Stable large bore right internal jugular dialysi s catheter. Persistent mild cardiomegaly with dual lead pacemaker. Chronic parenchymal changes bilaterally with i ncreased opacities in the bases and left upper lung redemonstrated. Osseous structures remain intact. IMPRESSION: Left upper lung edema and/or infiltrate and bibasilar atelectasis and/or infiltrates on b ackground chronic changes and mild cardiomegaly redemonstrated. No significant change from one day ea rlier.
[2021-08-07 09:49] LABS: Anisocytosis Slight; Basophils % (A) 0 %; Eosinophils # (A) 0.2 k/uL (0-0.7); Eosinophils % (A) 1 %; HCT 25.4 % (39.0-53.0); HGB 7.7 gm/dL (13.0-17.5); Hypochromasia Marked; Lymphocytes # (A) 0.5 k/uL (1.0-4.8); Lymphocytes % (A) 4 %; MCH 30.4 pg (25.0-35.0); MCHC 30.3 g/dL (31.0-37.0); MCV 100.3 fL (80.0-100.0); Macrocytosis Slight; Mean Platelet Volume 8.1; Monocytes # (A) 0.6 k/uL (0-1.0); Monocytes % (A) 4 %; Neutrophils # (A) 11.7 k/uL (1.3-7.7); Neutrophils % (A) 89 %; Platelet Count 190 k/uL (150-450); Poikilocytosis Slight; RBC 2.53 m/uL (4.30-5.90); RDW 17.2 % (11.5-15.5); WBC 13.2 k/uL (3.8-10.6)
--- NOTE | 2021-08-07 11:47 | P.PN ---
Subjective Patient is seen for follow-up for acute kidney injury and top of chronic kidney disease Patient has underlying chronic kidney disease stage IV with recent worsening of his renal function since May 2021. Creatinine increased from 1.4 on 05/24/[address] up to 3.1 on 07/05/2021. Patient had acute kidney injury during his hospitalization last month and serum creatinine on discharge was 3.0. Acute kidney injury was mostly cardiorenal. Patient was diuresed and discharged on torsemide. He was admitted to the hospital now with a creatinine of around 10.2. Patient was started on dialysis on 07/27/2021. Patient has been treated for volume overload. Patient is seen in the ICU. He remains on the vent. FiO2 is at 40%. Patient is seen on dialysis. He is tolerating his treatment fairly well. Levo fed was restarted at low dose. Minimal urine output. Objective - Vital Signs Vital signs: Vital Signs Temp 97.6 F 08/07/21 09:00 Pulse 95 08/07/21 11:20 Resp 26 H 08/07/21 11:00 BP 117/64 08/07/21 08:00 Pulse Ox 98 08/07/21 11:00 Intake & Output 08/06/21 08/07/21 08/07/21 18:59 06:59 18:59 Intake Total 718.799 8384.487 629.064 Output Total 41 0 Balance 394.669 2990.487 629.064 Weight 92.8 kg 92.7 kg Intake: IV 320 200 Lactated Ringers 1,000 ml 120 100 @ 20 mls/hr IV .Q24H [facility] Rx#:[id number] Piperacillin-Tazobactam 3 200 100 .375 gm In Sodium Chloride 0.9% 100 ml @ 25 mls/hr IVPB Q8HR [facility] Rx# :[id number] Intake, IV Titration 224.323 339.487 194.064 Amount Lactated Ringers 1,000 ml 80 100 @ 20 mls/hr IV .Q24H [facility] Rx#:[id number] Norepinephrine 8 mg In 118.411 Sodium Chloride 0.9% 250 ml @ 0.05 MCG/KG/MIN 9. 348 mls/hr IV .Q24H [facility] Rx#:[id number] propofoL 1,000 mg In 144.323 239.487 75.653 Empty Bag 1 bag @ 5 MCG/ KG/MIN 2.898 mls/hr IV . Q24H [facility] Rx#:[id number] Tube Feeding 363 165 Other 210 70 Output: Urine 41 0 Other: Voiding Method Indwelling Catheter Indwelling Catheter Indwelling Catheter ABP, PAP, CO, CI - Last Documented Arterial Blood Pressure 91/47 - Exam Patient is currently intubated. He is on the vent. FiO2 at 40% Bilateral breath sounds are heard Abdomen is soft nontender Examination lower extremities shows chronic skin changes. Improved edema. 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 - Labs CBC & Chem 7: 08/07/21 09:46 08/06/21 04:01 Labs: Abnormal Lab Results - Last 24 Hours (Table) 08/06/21 08/07/21 08/07/21 Range/Units 18:17 00:50 06:00 WBC (3.8-10.6) k/uL RBC (4.30-5.90) m/uL Hgb (13.0-17.5) gm/dL Hct (39.0-53.0) % MCV (80.0-100.0) fL MCHC (31.0-37.0) g/dL RDW (11.5-15.5) % Neutrophils # (1.3-7.7) k/uL Lymphocytes # (1.0-4.8) k/uL ABG pH (7.35-7.45) ABG pCO2 (35-45) mmHg ABG pO2 (83-108) mmHg ABG HCO3 (21-25) mmol/L ABG Total CO2 (19-24) mmol/L ABG O2 Saturation (94-97) % POC Glucose (mg/dL) 110 H 242 H (75-99) mg/dL Procalcitonin 3.96 H (0.02-0.09) ng/mL 08/07/21 08/07/21 08/07/21 Range/Units 06:00 06:00 09:46 WBC 13.2 H (3.8-10.6) k/uL RBC 2.53 L (4.30-5.90) m/uL Hgb 7.7 L (13.0-17.5) gm/dL Hct 25.4 L (39.0-53.0) % MCV 100.3 H (80.0-100.0) fL MCHC 30.3 L (31.0-37.0) g/dL RDW 17.2 H (11.5-15.5) % Neutrophils # 11.7 H (1.3-7.7) k/uL Lymphocytes # 0.5 L (1.0-4.8) k/uL ABG pH 7.34 L (7.35-7.45) ABG pCO2 48 H (35-45) mmHg ABG pO2 129 H (83-108) mmHg ABG HCO3 26 H (21-25) mmol/L ABG Total CO2 27 H (19-24) mmol/L ABG O2 Saturation 98.8 H (94-97) % POC Glucose (mg/dL) 177 H (75-99) mg/dL Procalcitonin (0.02-0.09) ng/mL Assessment and Plan Assessment: 1. Acute kidney injury most likely ATN, currently nonoliguric. However given the significantly elevated BUN/creatinine creatinine and volume overload with hyperkalemia, started on hemodialysis on 07/27/2021. No obstruction on ultrasound. UA shows trace protein and moderate blood. Serologies ordered to rule out underlying GN. Mostly all workup negative except for slightly decrea sed C3 levels. Not a candidate for kidney biopsy. 2. Chronic kidney disease NKF stage IIIB secondary to nephrosclerosis with previous creatinine as low as 1.4 in May 2021 but most recently staying as high as 3.1-3.0 on 07/07/2021 with episodes of acute kidney injury during his hospitalizations for CHF and pneumonia. 3. CHF exacerbation, diastolic 4. Volume overload, improving with dialysis. 5. Hyperkalemia associated with acute kidney injury, no urine retention noted, improved post dialysis 6. Acute hypercapnic respiratory failure, currently on the vent. 7. Paroxysmal A. fib with controlled ventricular response status post pacemaker Plan: Repeat hemodialysis on 08/09/2021 with increase UF as tolerated.
[2021-08-07 12:18] LABS: Glucose,Whole Blood 141 mg/dL (75-99)
--- NOTE | 2021-08-07 14:02 | P.PN ---
Subjective Progress Note Date: 08/07/21 Principal diagnosis: Respiratory failure. Pulmonary consultation dated 08/04/2021. 65-year-old male who's been here since July 26. We are just asked to see him today. Before we actually saw him, he apparently was having hemodialysis, for fluid overload, and, had an uneventful hemodialysis run. Subsequent to that, he apparently developed respiratory distress, and, I was called by the hospital doctor, who thought the patient could not protect his airway, and was having im pending respiratory arrest. I asked her to call anesthesia to have been intubated, and transferred down to the intensive care unit. In the ICU, we placed a right femoral triple-lumen catheter, and a rate femoral artery arterial line. We made some adjustments to his ventilator, drop the FiO2 down to 50%, and also increasing the rate from 20 to 26 breaths per minute. In addition, the patient was placed on propofol for sedation, and also norepinephrine for blood pressure support. He initially was seen back on July 26 in the emergency room. He came in with complaints of fluid retention, shortness of breath, and leg swelling. He also had a recent history of injury to the left forearm, I believe a fracture to one of the bones in the left forearm. We had not been consulted before today, apparently for an abnormal chest x-ray showing some infiltrates in the left mid lung. Unfortunately, we could not talk to him prior to intubation, to get a sense of what was going on with him. He has a history of atrial fibrillation, CHF, COPD, diabetes, DVT, GERD, hyperlipidemia, hypertension, pn eum[place], end-stage renal disease, and sleep apnea, among other things. He is quite an extensive medical history, as can be seen on the H&P/ER note. White count 14.6, hemoglobin 10, hematocrit 33.3, and platelet count 316,000. Initial blood gases done before transfer, showed a pO2 167 a pCO2 of 107 and a pH is 7.09. Blood gases after intubation, showed a pO2 that was greater than 400, pCO2 that was 67, and a pH of 7.26. The vent settings at that time included AC mode, rate 20, tidal volume 450, FiO2 100%, PEEP of 5. After the post intubation blood gases were obtained, the rate on the ventilator was increased to 26, and the FiO2 was dropped down to 50%. Sodium 138, potassium 3.4, chlori shabana 99, CO2 30, anion gap 9, BUN 15, creatinine 1.77. Chest x-ray shows some diffuse interstitial changes, bilateral pleural effusions, and some infiltrate in the left midlung. Progress note dated 08/05/2021. 65-year-old male, seen in consultation yesterday. The patient developed respiratory distress, requiring intubation and mechanical ventilation, and transferred to the intensive care unit yesterday, after undergoing hemodialysis, where 3 L was removed. The patient had a right femoral triple-lumen catheter placed as well as a right femoral arterial line. Unfortunately, the arterial line is no longer functioning. A right brachial arterial line was placed today. In addition, there was a leak about the endotracheal tube, and that was also replaced. Currently, the patient remains on the mechanical ventilator. His current settings include the volume assist control, rate 26, tidal volume 450, FiO2 40%, and PEEP of 5. Blood gases show pO2 107, pCO2 40, and pH is 7.39. Norepinephrine has been weaned off. The patient's on propofol at 50 mcg/kg/m, lactated Ringer's at 20 mL an hour, and Nepro feeds, at 20 mL, with a goal of 33 mL an hour. White count 10.4, and 7.9, hematocrit 26.5, and platelet count 192,000. Sodium 132, potassium 3.8, chlorides 98, CO2 22, anion gap 12, BUN 25, creatinine 2.83. Microbiologic studies are negative. Chest x-ray shows improvement in the patient's lung findings. Endotracheal tube in good position. NG tube in good position. A CT angiogram was done yesterday, and showed findings consistent with fluid overload. There are bilateral pleural effusions. There is was no pulmonary embolism. Progress note dated 08/06/2021. 65-year-old male with a history of respiratory failure, requiring intubation and mechanical ventilation. This occurred after recent hemodialysis run. The patient remains on the mechanical ventilator. Yesterday, hemodialysis was performed, and 2 L was removed. Also yesterday, we placed a right brachial arterial line, and had to change out the endotracheal tube, as it was a leak in the agricultural pilot balloon. Currently, he is on volume assist control, rate 26, tidal volume 450, FiO2 40%, and PEEP of 5. Blood gases show pO2 78, pCO2 49, pH is 7.35. The patient's on norepinephrine at 0.11 mcg/kg/m, propofol at 50 mcg/kg/m, lactated Ringer's at 20 mL an hour, and Nepro at goal, which is 33 mL an hour today, we will attempt a daily interruption of sedation and possibly, a breathing trial. White count 14.7, hemoglobin 7.9, hematocrit 26.7, and platelet count 199,000. Sodium 141, potassium 3.3, chlorides 108, CO2 25, anion gap 8, BUN 18, and creatinine 2.17. Chest x-ray, in my opinion, continues to show mild to moderate fluid overload. Progress note dated 08/07/2021. 65-year-old male, seen again, in room 252. He has a history of respiratory failure requiring intubation and mechanical ventilation. The patient did not have hemodialysis yesterday. Remains on the mechanical ventilator, volume tamia t control, rate 26, tidal volume 450, FiO2 40%, and PEEP of 5. Blood gases show pO2 of 129, pCO2 48, and pH is 7.34. The patient is having hemodialysis today. After hemodialysis, the FiO2 can be reduced down to 30%. The patient will also need a daily interruption of sedation. He remains on norepinephrine at 0.01 mcg/kg/m, lactated Ringer's at 20 mL an hour, propofol at 50 mcg/kg/m, and Nepro at 33 mL an hour, which is goal. White count 13.2, hemoglobin 7.7, hematocrit 25.4, and platelet count 190,000. Pro-calcitonin level was 3.96. Microbiologic studies are thus far negative. Chest x-ray shows bibasilar atelectasis and/or infiltrates. There is mild cardiomegaly. Chest x-ray is largely unchanged. Objective - Vital Signs Vital signs: Vital Signs Temp 97.2 F L 08/07/21 13:06 Pulse 96 08/07/21 13:06 Resp 28 H 08/07/21 13:06 BP 105/50 08/07/21 13:06 Pulse Ox 99 08/07/21 13:00 Intake & Output 08/06/21 08/07/21 08/07/21 18:59 06:59 18:59 Intake Total 427.133 7324.487 942.965 Output Total 41 2000 Balance 513.938 9782.487 -1057.035 Weight 92.8 kg 92.7 kg Intake: IV 320 240 Lactated Ringers 1,000 ml 120 140 @ 20 mls/hr IV .Q24H [facility] Rx#:[id number] Piperacillin-Tazobactam 3 200 100 .375 gm In Sodium Chloride 0.9% 100 ml @ 25 mls/hr IVPB Q8HR [facility] Rx# :[id number] Intake, IV Titration 224.323 339.487 338.965 Amount Lactated Ringers 1,000 ml 80 100 @ 20 mls/hr IV .Q24H [facility] Rx#:[id number] Norepinephrine 8 mg In 135.923 Sodium Chloride 0.9% 250 ml @ 0.05 MCG/KG/MIN 9. 348 mls/hr IV .Q24H [facility] Rx#:[id number] propofoL 1,000 mg In 144.323 239.487 203.042 Empty Bag 1 bag @ 5 MCG/ KG/MIN 2.898 mls/hr IV . Q24H [facility] Rx#:[id number] Tube Feeding 363 264 Other 210 100 Output: Urine 41 0 Hemodialysis 2000 Other: Voiding Method Indwelling Catheter Indwelling Catheter Indwelling Catheter ABP, PAP, CO, CI - Last Documented Arterial Blood Pressure 90/40 - Exam No acute distress, sedated, with an orally placed endotracheal tube and NG tube. The patient is chronically ill appearing. HEENT examination is grossly unremarkable. Neck supple. Full range of motion. No adenopathy thyromegaly or neck vein distention. Cardiovascular examination reveals regular rhythm rate. S1-S2 normal. No S3 or S4. No discernible murmur noted. Heart rate 96 bpm. Lungs reveal coarse bilateral rhonchi, and bilateral crackles. No wheezes. Breath sounds equal bilaterally. Abdomen soft, without bowel sounds. Extremities are intact. No cyanosis clubbing or edema. Skin is without rash or lesion. Neurologic examination cannot be properly assessed. - Labs CBC & Chem 7: 08/07/21 09:46 08/06/21 04:01 Labs: Abnormal Lab Results - Last 24 Hours (Table) 08/06/21 08/07/21 08/07/21 Range/Units 18:17 00:50 06:00 WBC (3.8-10.6) k/uL RBC (4.30-5.90) m/uL Hgb (13.0-17.5) gm/dL Hct (39.0-53.0) % MCV (80.0-100.0) fL MCHC (31.0-37.0) g/dL RDW (11.5-15.5) % Neutrophils # (1.3-7.7) k/uL Lymphocytes # (1.0-4.8) k/uL ABG pH (7.35-7.45) ABG pCO2 (35-45) mmHg ABG pO2 (83-108) mmHg ABG HCO3 (21-25) mmol/L ABG Total CO2 (19-24) mmol/L ABG O2 Saturation (94-97) % POC Glucose (mg/dL) 110 H 242 H (75-99) mg/dL Procalcitonin 3.96 H (0.02-0.09) ng/mL 08/07/21 08/07/21 08/07/21 Range/Units 06:00 06:00 09:46 WBC 13.2 H (3.8-10.6) k/uL RBC 2.53 L (4.30-5.90) m/uL Hgb 7.7 L (13.0-17.5) gm/dL Hct 25.4 L (39.0-53.0) % MCV 100.3 H (80.0-100.0) fL MCHC 30.3 L (31.0-37.0) g/dL RDW 17.2 H (11.5-15.5) % Neutrophils # 11.7 H (1.3-7.7) k/uL Lymphocytes # 0.5 L (1.0-4.8) k/uL ABG pH 7.34 L (7.35-7.45) ABG pCO2 48 H (35-45) mmHg ABG pO2 129 H (83-108) mmHg ABG HCO3 26 H (21-25) mmol/L ABG Total CO2 27 H (19-24) mmol/L ABG O2 Saturation 98.8 H (94-97) % POC Glucose (mg/dL) 177 H (75-99) mg/dL Procalcitonin (0.02-0.09) ng/mL 08/07/21 Range/Units 12:17 WBC (3.8-10.6) k/uL RBC (4.30-5.90) m/uL Hgb (13.0-17.5) gm/dL Hct (39.0-53.0) % MCV (80.0-100.0) fL MCHC (31.0-37.0) g/dL RDW (11.5-15.5) % Neutrophils # (1.3-7.7) k/uL Lymphocytes # (1.0-4.8) k/uL ABG pH (7.35-7.45) ABG pCO2 (35-45) mmHg ABG pO2 (83-108) mmHg ABG HCO3 (21-25) mmol/L ABG Total CO2 (19-24) mmol/L ABG O2 Saturation (94-97) % POC Glucose (mg/dL) 141 H (75-99) mg/dL Procalcitonin (0.02-0.09) ng/mL Assessment and Plan Assessment: Acute hypoxemic respiratory failure, requiring intubation and mechanical ventilation on 08/04/2021. Chronic kidney disease, requiring hemodialysis. History of chronic atrial fibrillation. History of CHF. History of COPD. History of diabetes mellitus. History of DVT. History of gastroesophageal reflux disease. History of hyperlipidemia. History of hypertension. History of sleep apnea syndrome. History of pneumonia. Chronic hypoxemic respiratory failure. Multiple comorbidities. Plan: Plan dated 08/04/2021. The patient was intubated upon the floor, and transferred down to the intensive care unit, room 252. A right femoral triple-lumen catheter was placed, as well as a right femoral artery arterial line. The patient was started on propofol for sedation. In addition, the patient will be given norepinephrine for blood pressure support. The FiO2 was turned down from 100%, down to 50%. I told the nurse to have dietary start tube feedings today. Additional recommendations and suggestions are forthcoming. Labs, x-rays, and medications are reviewed. Unnecessary medications will be discontinued. Prognosis is guarded. Continue to follow the patient and make recommendations where appropriate. Plan dated 08/05/2021. The patient will be given some Dilaudid when necessary for pain control. In addition, we will attempt a daily interruption of sedation. The patient is not likely ready for weaning and extubation. In addition, the right femoral art line went bad, and we replaced it with a right brachial arterial line. In addition, there was a leak on the agricultural pilot balloon of the endotracheal tube, and a new #8 endotracheal tube was placed, using the endotracheal tube stylet. Labs, x-rays, and medications are all reviewed. Tube feedings will be increased to goal. Additional recommendations and suggestions are forthcoming. The patient has been having daily hemodialysis. We will continue to follow make recommendations where appropriate. Prognosis is guarded. Plan dated 08/06/2021. The patient's doing about the same. We did add some Dilaudid for pain control yesterday. Also yesterday, we placed a right brachial arterial line, as the right femoral arterial line had gone bad. In addition, we changed out the endotracheal tube, because there was a leak in the agricultural pilot balloon. The patient's labs, x-rays, and medications are all reviewed. The patient did have hemodialysis yesterday, and 2 L was removed. Patient remains on propofol and norepinephrine. Later today the patient will have a daily interruption of sedation, and if stable, possibly a spontaneous breathing trial. We will continue to follow make recommendations where appropriate. Prognosis is guarded. Plan dated 08/07/2021. The patient's doing about the same. The patient is undergoing hemodialysis today. The patient did not have hemodialysis yesterday. After hemodialysis, the FiO2 will be reduced down to 30%. The patient will need a daily interruption of sedation today. In addition, labs, x-rays, and medications are all reviewed. The patient remains on norepinephrine, lactated Ringer's, and propofol. The patient is receiving tube feedings. The patient overall prognosis is very guarded. We'll continue to follow make recommendations where appropriate. Time with Patient: Greater than 30
[2021-08-07] MEDS: allopurinoL 100 MG TAB PO SCH (14:13)
[2021-08-07 14:46] LABS: Albumin 2.5 g/dL (3.5-5.0); Calcium 8.6 mg/dL (8.4-10.2); Potassium 3.2 mmol/L (3.5-5.1); Total Bilirubin 0.4 mg/dL (0.2-1.3); Total Protein 5.4 g/dL (6.3-8.2)
[2021-08-07 18:12] LABS: Glucose,Whole Blood 205 mg/dL (75-99)
[2021-08-07] MEDS ORDERED: POTASSIUM BICARBONATE/CIT AC 20 MEQ TABLET.EFF PO ONE (18:32)
--- NOTE | 2021-08-07 22:40 | P.PN ---
Subjective Progress Note Date: 08/07/21 Patient is a 65-year-old male with multiple medical problems multiple comorbidities was recently discharged from the hospital after he was treated for volume or note from chronic gastritis function and the cardiorenal syndrome. Patient was discharged to rehab facility 2 days into rehab related patient patient went home and started having shortness of breath volume overload diffuse anasarca and pedal edema. Patient is found to be in significant volume or lower chest x-ray showed bilateral pleural effusion although this appears to have improved compared to last admission when he had thoracentesis. Patient has significant lab abnormalities including creatinine going up to around 10 potassium 6.2 very low magnesium of 0.9 nephrology was consulted. As per nephrology patient will lead hemodialysis, consult to vascular surgery was placed for hemodialysis catheter placement and patient will be subsequently started on hemodialysis. Patient does have advanced COPD uses about 5 L of oxygen. 07/28/2021 Patient is seen and evaluated and follow-up has received hemodialysis catheter and is receiving hemodialysis today. Kidney functions improving and patient reports to producing more urine. Current creatinine is 7.6 today potassium is 5.5 and sodium is 139. Blood sugars have been more manageable and will continue current regimen. Patient continues on 5 L via nasal cannula which is chronic for him. Nephrology following closely and will continue with dialysis daily at this time. Patient is also maintained on IV Lasix and will continue. Patient denies chest pain, shortness of breath, or palpitations. Patient is afebrile. No nausea or vomiting noted and patient is tolerating diet. subjective: resume the care of the pt today 07/29/2021 This is a pleasant 65 years old male with stage IV chronic kidney disease presents with fatigue and worsening kidney function requiring hemodialysis which is a started during this admission after a catheter placed in the right groin. He is hemodynamically stable, he is on 5 L per minute of oxygen but saturating 98-99%, we will try to titrate his oxygen down. No much dyspnea or cough and while he is lying flat in bed but he feels very weak all over. His been having recurrent nausea vomiting, mainly worked first of this morning but he is fully awake with no headache. No abdominal pain. He is hemodynamically stable, hemoglobin 7.4 with evidence of chronic anemia, also he is on ferrous sulfate once daily at home. This currently on home dose of liquids 2.5 and IV Lasix 60 mg twice daily. Ultrasound of the abdomen showing no hydronephrosis or nephrolithiasis. And chest x-ray showed small right pleural effusion with atelectasis. Also patient has chronic left leg wound secondary to a fall about 3 months ago. Patient refused to take the dressing off. We consulted once care. Patient is on Zofran already, we added Phenergan. We ordered a KUB. Also ask for PT OT evaluation. WOUND TEAM CONSULT 07/30/2021 Patient awake alert, no much tachypnea but he stayed in bed most of the time, he still at baseline of 4 L/m of oxygen. However patient reports coughing a lot and making a lot of phlegm, he said he has been diagnosed with pneumonia 2 weeks ago. Actually chest x-ray from yesterday showing bilateral infiltrate, I reviewed the chest x-ray by myself and it looks worse compared to admission despite starting him on a new hemodialysis and receiving Lasix for his CHF. Also we checked his pro-calcitonin and it is elevated at 0.5 for which is consistent with infection with this constellation of CHF, chest x-ray findings a nd elevated pro-calcitonin. Most likely and high suspicion for hospital acquired pneumonia and patient is a started on Zosyn last night. We going to repeat chest x-ray tomorrow morning. Bladder scan show minimal urine, Flomax was discontinued. Wound care R following the patient for his left foot wound. 07/31/2021 Patient seen in bed most of the time, physical therapy recommended rehab, I talk ed to him today about this recommendation and he is refusing now. He still on 4 L oxygen nasal cannula which looks like he is this is his baseline however he has coarse crepitation looks like it comes from secretion with decreased air entry on both sides, patient confirms to me he has history of COPD. However I would recommend he follow up with a associate editor as an outpatient. Repeat chest x-ray today showing no worsening infiltrate however it shows Similar multifocal airspace opacities. Correlate for congestive heart failure and/or diffuse airspace disease in the meantime we will keep him on Zosyn and check a pro-calcitonin tomorrow, if improvement we may consider oral antibiotic. However started on Solu-Medrol 60 mg 3 times a day today. He is kept on IV Lasix and hemodialysis I discussed the case with nephrology team and they recommended the permacath prior to discharge, discussed with bed side nurse to inform surgical vascular team. Workup showing anemia of chronic disease and he was started on arenasept by testing specialist. 08/01/2021 Patient clinically is doing well generally, he is breathing quietly, he is tolerating diet well, no bowel movement today Nephrology team on the case and plan for him to get the permacath by vascular surgery team hopefully tomorrow. Also his evidence of COPD exacerbation which is improving therefore Solu-Medrol our to 40 mg twice a day. Pro-calcitonin still elevated 0.68, currently on Zosyn, sputum cultures pending. However patient only having cough and phlegm which is pending as above. Saturation is 4-5 L/m which is his baseline. Rehab is recommended but patient was reluctant so far. 08/02/2021 Patient is lying in bed most of the time, his breathing is at baseline and is improving with less crepitation but he is coughing a lot . His oxygen requirement at baseline on 4 L/m which is his home dose. his hemoglobin dropped today to 5.7, his workup showing anemia of chronic disease despite being an IV and oral iron, workup showing anemia of chronic disease but cannot rule out GI bleed especially he's on liquids which is on hold today before going for procedure. Therefore we going to consult GI service in any way. Occult blood in his stool test is requested. Patient states he has 3- 4 loose bowel movements, we will check C. diff as well. No abdominal pain or vomiting. Patient is going for permacath placement today and hemodialysis tomorrow, he got hemodialysis this morning. Patient adamantly refusing to go to rehab despite recommendation for medical and nephrology team on several occasions. Patient and make his own decisions. 08/03/2021 Patient now wake and breathing comfortably at baseline, he is less coughing compared to yesterday after started on Robitussin D but today he wants to, more so I can bring stuff up out of his chest, therefore we change his Robitussin into when necessary dosing and he was informed. No chest pain or other symptoms. However there was some concerns of pulmonary congestion there for his colonoscopy/EGD for tomorrow is rescheduled until . He is placed on liquid diet therefore we lowered his Levemir form 25 units which is home dose down to 10 units tonight. His chest x-ray looks the same Reticulocyte count is 1.5 but he got one unit of transfusion. Currently hemo globin is holding at 8.1, glucose control, magnesium normal at 2.2, sodium at 1:30 and he is saturating at 4-5 L/m which is home dose. Diarrhea stopped, occult blood in stool is negative and C. diff negative. 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 Repeat CT of the chest today showed no evidence of pulmonary embolism and there is extensive bilateral infiltrates concerning for aspiration. Currently he is saturating 98% on FiO2 of 50% and respiratory rate of 26. Labs reviewed and showing WBC of 14.6, creatinine down to 1.6, hemoglobin 10, potassium after placement 3.4. Patient labs reviewed remains on Zosyn, Pro-calcitonin is improving down to 0.3 prior to this episode of aspiration. Patient remains afebrile for now. His Eliquis remains on hold in view of his history of A. fib due for suspected GI bleed. Patient remains on Zosyn, Protonix and insulin sliding scale. Also patient placed on Lasix 80 mg daily and receives an extra dose this morning. While insulin 10 units is held 08/05/2021 Patient remains in the ICU sedated and intubated. He is off Levophed today. Metoprolol was held yesterday and his blood pressure improved, and this morning 87/54 and his rate was sinus rhythm at 93, no evidence of A. fib and RVR given his history of similar problem. Hemoglobin 7.9, which is known he is anemic, his Eliquis is still on hold for possible GI bleed with planned to undergo EGD/colonoscopy at certain point per GI team her on the case. Creatinine went up to 0.8. He is undergoing hemodialysis. Chest x-ray showed some improvement by a radiologist Remains on IV Zosyn for his recurrent aspiration pneumonia. Also Lasix was held. His prognosis remains guarded 08/07/2021 Patient is seen and evaluated and follow-up continues to be in the ICU on mechanical vent. Patient currently receiving hemodialysis and is currently off Levophed although being used as needed for blood pressures that are on the lower side. Patient continues on mechanical ventilation with an FiO2 of 40% and PEEP is 5 with multiple medical consultations are following. Hemoglobin is stable at 7.7 with no active bleeding noted. Patient also continues on IV Zosyn. Sputum cultures thus far are negative. Pulmonary following and highly suspicious for aspiration pneumonia. Recommend continue with breathing inhalational treatments and close monitoring. Chest x-ray today shows left upper lung edema and/or infiltrate and bibasilar atelectasis and/or infiltrates on the background with chronic changes and mild cardiomegaly redemonstrated with no significant change from one day previously. Review of systems: Unable to obtain as patient is currently intubated and sedated Active Medications Albuterol/Ipratropium (Ipratropium-Albuterol 3 Ml Neb) 3 ml INHALATION RT-Q4H PRN PRN Reason: Shortness Of Breath Last Admin: 08/04/21 00:33 Dose: 3 ml Documented by: Albuterol/Ipratropium (Ipratropium-Albuterol 3 Ml Neb) 3 ml INHALATION RT-Q4H [facility] Last Admin: 08/07/21 10:49 Dose: 3 ml Documented by: Allopurinol (Allopurinol 100 Mg Tab) 200 mg PO DAILY@1400 [facility] Last Admin: 08/06/21 11:24 Dose: 200 mg Documented by: Artificial Tears (Artificial Tears-Hypromellose Drops 15 Ml Btl) 2 drops BOTH EYES TID PRN PRN Reason: Dry Eye(s) Ascorbic Acid (Ascorbic Acid 500 Mg Tab) 1,000 mg PO BID [facility] Last Admin: 08/07/21 08:29 Dose: 1,000 mg Documented by: Budesonide (Budesonide 1 Mg/2 Ml Nebu) 1 mg INHALATION RT-BID [facility] Last Admin: 08/07/21 07:10 Dose: 1 mg Documented by: Chlorhexidine Gluconate (Chlorhexidine Gluconate 15 Ml Cup) 15 ml MUCOUS MEM BID [facility] Last Admin: 08/07/21 08:29 Dose: 15 ml Documented by: Cholecalciferol (Cholecalciferol 25 Mcg (1000 Iu) Tablet) 25 mcg PO DAILY [facility] Last Admin: 08/07/21 08:29 Dose: 25 mcg Documented by: Darbepoetin Hubert (Darbepoetin Hubert 60 Mcg/0.3 Ml Syringe) 60 mcg SQ Q7D [facility] Last Admin: 08/01/21 22:30 Dose: 60 mcg Documented by: Formoterol Fumarate (Formoterol Fumarate 20 Mcg/2 Ml Nebu) 20 mcg INHALATION RT-BID [facility] Last Admin: 08/07/21 07:10 Dose: 20 mcg Documented by: Hydromorphone HCl (Hydromorphone 1 Mg/Ml 1 Ml Syringe) 1 mg IVP Q2HR PRN PRN Reason: Pain Last Admin: 08/05/21 21:04 Dose: 1 mg Documented by: Piperacillin Sod/Tazobactam (Sod 3.375 gm/ Sodium Chloride) 100 mls @ 25 mls/hr IVPB Q8HR [facility]; Protocol Last Admin: 08/07/21 08:29 Dose: 25 mls/hr Documented by: Norepinephrine Bitartrate 8 mg (/ Sodium Chloride) 258 mls @ 9.348 mls/hr IV .Q24H [facility]; Protocol Last Titration: 08/07/21 11:05 Dose: 0.05 mcg/kg/min, 9.348 mls/hr Documented by: Propofol 1,000 mg/ IV Solution 100 mls @ 2.898 mls/hr IV .Q24H [facility]; Protocol Last Admin: 08/07/21 09:10 Dose: 50 mcg/kg/min, 28.985 mls/hr Documented by: Lactated Ringer's (Lactated Ringers) 1,000 mls @ 20 mls/hr IV .Q24H [facility] Last Admin: 08/06/21 21:41 Dose: 20 mls/hr Documented by: Insulin Aspart (Insulin Aspart (Novolog) 100 Unit/Ml Vial) 0 unit SQ Q6H [facility]; Protocol Last Admin: 08/07/21 06:05 Dose: 2 unit Documented by: Levothyroxine Sodium (Levothyroxine 25 Mcg Tab) 25 mcg PO DAILY@0630 [facility] Last Admin: 08/07/21 06:04 Dose: 25 mcg Documented by: Metoprolol Succinate (Metoprolol Succinate (Er) 50 Mg Tab.Er.24h) 50 mg PO HS [facility] Last Admin: 08/07/21 00:06 Dose: 50 mg Documented by: Miscellaneous Information (Magnesium Replacement Protocol 1 Each Misc) 1 each MISCELLANE DAILY PRN; Protocol PRN Reason: Per Protocol Naloxone HCl (Naloxone 0.4 Mg/Ml 1 Ml Vial) 0.2 mg IV Q2M PRN PRN Reason: Opioid Reversal Ondansetron HCl (Ondansetron 4 Mg Tab) 4 mg PO Q8H PRN PRN Reason: Nausea And Vomiting Ondansetron HCl (Ondansetron 4 Mg/2 Ml Vial) 4 mg IVP Q6HR PRN PRN Reason: Nausea And Vomiting Last Admin: 08/03/21 10:03 Dose: 4 mg Documented by: Pantoprazole Sodium (Pantoprazole 40 Mg/10 Ml Vial) 40 mg IV DAILY [facility] Last Admin: 08/07/21 08:29 Dose: 40 mg Documented by: Physical exam: GENERAL: The patient is intubated and sedated HEENT: Pupils are round and equally reacting to light. EOMI. No scleral icterus. No conjunctival pallor. Normocephalic, atraumatic. No pharyngeal erythema. No thyromegaly. CARDIOVASCULAR: S1 and S2 present. No murmurs, rubs, or gallops. PULMONARY: Chest is clear to auscultation, no wheezing or crackles. Decreased breath sounds on both sides with weak expiratory efforts. Right upper chest permacath ABDOMEN: Soft, nontender, nondistended, normoactive bowel sounds. No palpable organomegaly. MUSCULOSKELETAL: No joint swelling or deformity. EXTREMITIES: No cyanosis, clubbing, or pedal edema. Left leg wound with dressing. NEUROLOGICAL: unable to assess as patient is intubated and sedated SKIN: No rashes. no petechiae. Assessment: - Recurrent aspiration leading to respiratory distress and currently intubated on mechanical ventilation in the ICU on 08/04/21 - Bilateral hospital acquired pneumonia is highly suspected - Acute kidney injury on stage IV CKD, started on hemodialysis during this admission - acute diastolic congestive heart failure secondary to cardiorenal - anasarca secondary to cardiorenal syndrome as mentioned above. Hemodialysis daily per nephrology for now - Anemia of chronic disease, with recent drop in hemoglobin. Rule out GI bleed - Loose bowel movement, C. diff colitis ruled out - Hypomagnesemia magnesium will be replaced per Protocol - Chronic respiratory failure secondary to COPD , 5 L of oxygen at home. There is evidence of acute exacerbation - Possible pneumonia, hospital-acquired with elevated pro-calcitonin 0.5 - Hypertension - Hyperlipidemia - Hypothyroidism - History of recent fall and fracture to the left wrist with malunion noted - Paroxsymal atrial fibrillation presently rate controlled patient does have sick sinus syndrome history patient has a pacemaker - Type 2 diabetes mellitus - GI prophylaxis - DVT prophylaxis - Full code Plan: This is a pleasant 65 years old male presents with acute kidney injury and CHF. Started on hemodialysis. Nephrology following closely patient is continued on hemodialysis today Continue with mechanical ventilation with pulmonary following . FiO2 is currently 40% with a PEEP of 5, sedation holidays daily to assess weaning par ameters Continue with Zosyn and follow-up culture results, sputum cultures thus far are negative Continue with hemodialysis per nephrology team. Patient will need permacath, vascular surgery following Eliquis 2.5 mg(on hold for possible bi bleed). Continue with insulin and sliding scale with accuchecks achs. Continue local wound care GI following and monitoring hemoglobin closely with no plans for endoscopic intervention at this time as patient's respiratory status is currently critical and intubated PT/OT: to evaluated once extubated Prognosis is overall extremely guarded The impression and plan of care has been dictated by Rochelle Salinas, Nurse Practitioner as directed. Dr. Garo MD I have performed a history and examination and MDM of this patient, discussed the same with the dictator, and agree with the dictator's assessment and plan as written ,documented as a scribe. Based on total visit time, I have performed more than 50% of the visit. Objective - Vital Signs Vital signs: Vital Signs Temp 97.6 F 08/07/21 08:00 Pulse 101 H 08/07/21 08:30 Resp 26 H 08/07/21 08:30 BP 117/64 08/07/21 08:00 Pulse Ox 99 08/07/21 08:30 Intake & Output 08/06/21 08/07/21 08/07/21 18:59 06:59 18:59 Intake Total 602.047 5598.487 82.608 Output Total 41 0 Balance 085.118 5824.487 82.608 Weight 92.8 kg 92.7 kg Intake: IV 320 20 Lactated Ringers 1,000 ml 120 20 @ 20 mls/hr IV .Q24H [facility] Rx#:[id number] Piperacillin-Tazobactam 3 200 .375 gm In Sodium Chloride 0.9% 100 ml @ 25 mls/hr IVPB Q8HR [facility] Rx# :[id number] Intake, IV Titration 224.323 339.487 62.608 Amount Lactated Ringers 1,000 ml 80 100 @ 20 mls/hr IV .Q24H [facility] Rx#:[id number] propofoL 1,000 mg In 144.323 239.487 62.608 Empty Bag 1 bag @ 5 MCG/ KG/MIN 2.898 mls/hr IV . Q24H [facility] Rx#:[id number] Tube Feeding 363 Other 210 Output: Urine 41 0 Other: Voiding Method Indwelling Catheter Indwelling Catheter ABP, PAP, CO, CI - Last Documented Arterial Blood Pressure 145/53 - Labs CBC & Chem 7: 08/07/21 09:46 08/07/21 14:15 Labs: Abnormal Lab Results - Last 24 Hours (Table) 08/06/21 08/06/21 08/07/21 Range/Units 11:29 18:17 00:50 ABG pH (7.35-7.45) ABG pCO2 (35-45) mmHg ABG pO2 (83-108) mmHg ABG HCO3 (21-25) mmol/L ABG Total CO2 (19-24) mmol/L ABG O2 Saturation (94-97) % POC Glucose (mg/dL) 248 H 110 H 242 H (75-99) mg/dL 08/07/21 08/07/21 Range/Units 06:00 06:00 ABG pH 7.34 L (7.35-7.45) ABG pCO2 48 H (35-45) mmHg ABG pO2 129 H (83-108) mmHg ABG HCO3 26 H (21-25) mmol/L ABG Total CO2 27 H (19-24) mmol/L ABG O2 Saturation 98.8 H (94-97) % POC Glucose (mg/dL) 177 H (75-99) mg/dL
[2021-08-07] MEDS: METOPROLOL TARTRATE 25 MG TAB PO SCH (22:41)
[2021-08-07] MEDS: LACTATED RINGERS 1,000 ML IV SCH (22:43)
[2021-08-08] MEDS: PIPERACILLIN-TAZOBACTAM 3.375 GM in SODIUM CHLORIDE 0.9% 100 ML IVPB SCH ×3 (00:58→15:50)
[2021-08-08] MEDS: INSULIN ASPART (NovoLOG) 100 UNIT/ML VIAL SQ SCH ×4 (01:03→18:24)
[2021-08-08 01:04] LABS: Glucose,Whole Blood 186 mg/dL (75-99)
[2021-08-08] MEDS: IPRATROPIUM-ALBUTEROL 3 ML NEB INHALATION SCH ×7 (01:19→23:58)
[2021-08-08 03:59] LABS: Anisocytosis Slight; Basophils # (A) 0.1 k/uL (0-0.2); Basophils % (A) 0 %; Eosinophils # (A) 0.2 k/uL (0-0.7); Eosinophils % (A) 1 %; HCT 24.7 % (39.0-53.0); HGB 7.4 gm/dL (13.0-17.5); Hypochromasia Marked; Lymphocytes # (A) 0.8 k/uL (1.0-4.8); Lymphocytes % (A) 6 %; MCH 29.9 pg (25.0-35.0); MCV 99.6 fL (80.0-100.0); Macrocytosis Slight; Mean Platelet Volume 8.7; Monocytes # (A) 0.8 k/uL (0-1.0); Monocytes % (A) 6 %; Neutrophils # (A) 11.1 k/uL (1.3-7.7); Neutrophils % (A) 84 %; Platelet Count 188 k/uL (150-450); Poikilocytosis Slight; RBC 2.48 m/uL (4.30-5.90); RDW 17.1 % (11.5-15.5); WBC 13.2 k/uL (3.8-10.6)
[2021-08-08 04:11] LABS: Albumin 2.5 g/dL (3.5-5.0); Calcium 8.9 mg/dL (8.4-10.2); Potassium 3.5 mmol/L (3.5-5.1); Total Bilirubin 0.4 mg/dL (0.2-1.3); Total Protein 5.3 g/dL (6.3-8.2)
[2021-08-08 05:07] LABS: ABG Base Excess 3.5 mmol/L; ABG HCO3 29 mmol/L (21-25); ABG PCO2 48 mmHg (35-45); ABG PH 7.38 (7.35-7.45); ABG PO2 66 mmHg (83-108); ABG TCO2 30 mmol/L (19-24); Allen Test Performed? Yes
--- NOTE | 2021-08-08 06:54 | XR ---
EXAMINATION TYPE: XR chest 1V portable DATE OF EXAM: 08/08/2021 CLINICAL HISTORY: Difficulty breathing progress study. TECHNIQUE: 2 AP portable semiupright views of the chest are obtained. COMPARISON: Chest x-ray from one day earlier and older studies. FINDINGS: Stable endotracheal and orogastric tubes. Stable large bore right internal jugular dialysi s catheter. Persistent mild cardiomegaly with dual lead pacemaker. Chronic parenchymal changes bilaterally with s ome faint increased opacities in the bases and upper lungs redemonstrated. Osseous structures remain intact. IMPRESSION: Bilateral upper lung edema and/or infiltrates and bibasilar atelectasis and/or infiltrate s on background chronic changes and mild cardiomegaly redemonstrated. No significant change from one day earlier.
[2021-08-08] MEDS: BUDESONIDE 1 MG/2 ML NEBU INHALATION SCH ×2 (07:43→19:29)
[2021-08-08] MEDS: FORMOTEROL FUMARATE 20 MCG/2 ML NEBU INHALATION SCH ×2 (07:43→19:29)
[2021-08-08 07:44] LABS: Glucose,Whole Blood 188 mg/dL (75-99)
[2021-08-08] MEDS: LEVOTHYROXINE 25 MCG TAB PO SCH (07:54)
[2021-08-08] MEDS: LACTATED RINGERS 1,000 ML IV SCH (07:58)
[2021-08-08] MEDS: CHOLECALCIFEROL 25 MCG (1000 IU) TABLET PO SCH (08:08)
[2021-08-08] MEDS: METOPROLOL TARTRATE 25 MG TAB PO SCH ×2 (08:08→20:50)
[2021-08-08] MEDS: ASCORBIC ACID 500 MG TAB PO SCH ×2 (08:08→20:50)
[2021-08-08] MEDS: PANTOPRAZOLE 40 MG/10 ML VIAL IV SCH (08:08)
[2021-08-08] MEDS: CHLORHEXIDINE GLUCONATE 15 ML CUP MUCOUS MEM SCH ×2 (08:10→20:50)
[2021-08-08] MEDS ORDERED: POTASSIUM BICARBONATE/CIT AC 20 MEQ TABLET.EFF PO ONE (10:56)
--- NOTE | 2021-08-08 11:02 | P.PN ---
Subjective Progress Note Date: 08/08/21 Principal diagnosis: Respiratory failure. Pulmonary consultation dated 08/04/2021. 65-year-old male who's been here since July 26. We are just asked to see him today. Before we actually saw him, he apparently was having hemodialysis, for fluid overload, and, had an uneventful hemodialysis run. Subsequent to that, he apparently developed respiratory distress, and, I was called by the hospital doctor, who thought the patient could not protect his airway, and was having im pending respiratory arrest. I asked her to call anesthesia to have been intubated, and transferred down to the intensive care unit. In the ICU, we placed a right femoral triple-lumen catheter, and a rate femoral artery arterial line. We made some adjustments to his ventilator, drop the FiO2 down to 50%, and also increasing the rate from 20 to 26 breaths per minute. In addition, the patient was placed on propofol for sedation, and also norepinephrine for blood pressure support. He initially was seen back on July 26 in the emergency room. He came in with complaints of fluid retention, shortness of breath, and leg swelling. He also had a recent history of injury to the left forearm, I believe a fracture to one of the bones in the left forearm. We had not been consulted before today, apparently for an abnormal chest x-ray showing some infiltrates in the left mid lung. Unfortunately, we could not talk to him prior to intubation, to get a sense of what was going on with him. He has a history of atrial fibrillation, CHF, COPD, diabetes, DVT, GERD, hyperlipidemia, hypertension, pn eumonia, end-stage renal disease, and sleep apnea, among other things. He is quite an extensive medical history, as can be seen on the H&P/ER note. White count 14.6, hemoglobin 10, hematocrit 33.3, and platelet count 316,000. Initial blood gases done before transfer, showed a pO2 167 a pCO2 of 107 and a pH is 7.09. Blood gases after intubation, showed a pO2 that was greater than 400, pCO2 that was 67, and a pH of 7.26. The vent settings at that time included AC mode, rate 20, tidal volume 450, FiO2 100%, PEEP of 5. After the post intubation blood gases were obtained, the rate on the ventilator was increased to 26, and the FiO2 was dropped down to 50%. Sodium 138, potassium 3.4, chlori shabana 99, CO2 30, anion gap 9, BUN 15, creatinine 1.77. Chest x-ray shows some diffuse interstitial changes, bilateral pleural effusions, and some infiltrate in the left midlung. Progress note dated 08/05/2021. 65-year-old male, seen in consultation yesterday. The patient developed respiratory distress, requiring intubation and mechanical ventilation, and transferred to the intensive care unit yesterday, after undergoing hemodialysis, where 3 L was removed. The patient had a right femoral triple-lumen catheter placed as well as a right femoral arterial line. Unfortunately, the arterial line is no longer functioning. A right brachial arterial line was placed today. In addition, there was a leak about the endotracheal tube, and that was also replaced. Currently, the patient remains on the mechanical ventilator. His current settings include the volume assist control, rate 26, tidal volume 450, FiO2 40%, and PEEP of 5. Blood gases show pO2 107, pCO2 40, and pH is 7.39. Norepinephrine has been weaned off. The patient's on propofol at 50 mcg/kg/m, lactated Ringer's at 20 mL an hour, and Nepro feeds, at 20 mL, with a goal of 33 mL an hour. White count 10.4, and 7.9, hematocrit 26.5, and platelet count 192,000. Sodium 132, potassium 3.8, chlorides 98, CO2 22, anion gap 12, BUN 25, creatinine 2.83. Microbiologic studies are negative. Chest x-ray shows improvement in the patient's lung findings. Endotracheal tube in good position. NG tube in good position. A CT angiogram was done yesterday, and showed findings consistent with fluid overload. There are bilateral pleural effusions. There is was no pulmonary embolism. Progress note dated 08/06/2021. 65-year-old male with a history of respiratory failure, requiring intubation and mechanical ventilation. This occurred after recent hemodialysis run. The patient remains on the mechanical ventilator. Yesterday, hemodialysis was performed, and 2 L was removed. Also yesterday, we placed a right brachial arterial line, and had to change out the endotracheal tube, as it was a leak in the yard pilot balloon. Currently, he is on volume assist control, rate 26, tidal volume 450, FiO2 40%, and PEEP of 5. Blood gases show pO2 78, pCO2 49, pH is 7.35. The patient's on norepinephrine at 0.11 mcg/kg/m, propofol at 50 mcg/kg/m, lactated Ringer's at 20 mL an hour, and Nepro at goal, which is 33 mL an hour today, we will attempt a daily interruption of sedation and possibly, a breathing trial. White count 14.7, hemoglobin 7.9, hematocrit 26.7, and platelet count 199,000. Sodium 141, potassium 3.3, chlorides 108, CO2 25, anion gap 8, BUN 18, and creatinine 2.17. Chest x-ray, in my opinion, continues to show mild to moderate fluid overload. Progress note dated 08/07/2021. 65-year-old male, seen again, in room 252. He has a history of respiratory failure requiring intubation and mechanical ventilation. The patient did not have hemodialysis yesterday. Remains on the mechanical ventilator, volume tamia t control, rate 26, tidal volume 450, FiO2 40%, and PEEP of 5. Blood gases show pO2 of 129, pCO2 48, and pH is 7.34. The patient is having hemodialysis today. After hemodialysis, the FiO2 can be reduced down to 30%. The patient will also need a daily interruption of sedation. He remains on norepinephrine at 0.01 mcg/kg/m, lactated Ringer's at 20 mL an hour, propofol at 50 mcg/kg/m, and Nepro at 33 mL an hour, which is goal. White count 13.2, hemoglobin 7.7, hematocrit 25.4, and platelet count 190,000. Pro-calcitonin level was 3.96. Microbiologic studies are thus far negative. Chest x-ray shows bibasilar atelectasis and/or infiltrates. There is mild cardiomegaly. Chest x-ray is largely unchanged. Progress note dated 08/08/2021. 65-year-old male seen in room 252. The patient has a history of respiratory failure, requiring intubation and mechanical ventilation. The patient remains on the ventilator. He is on volume assist control, rate 26, tidal volume 450, FiO2 40%, PEEP of 5. Blood gases show pO2 of 66, pCO2 48, pH is 7.38. The patient's getting lactated Ringer's at 20 mL an hour, propofol at 25 mcg/kg/m, norepinephrine which is been weaned off, and Nepro, at 33 mL an hour, the patient had hemodialysis yesterday. 2 L was removed. Today, we will attempt a daily interruption of sedation, with pressure support of 5 and CPAP of 5. White count 13.2, hemoglobin 7.4, hematocrit 24.7, and platelet count 188,000. Sodium 136, potassium 3.5, chlorides 100, CO2 28, BUN 23, and creatinine 2.33. Sputum showing corynebacterium striatum. Chest x-ray continues to show bilateral infiltrates and/or atelectasis, and borderline cardiomegaly. Objective - Vital Signs Vital signs: Vital Signs Temp 98.3 F 08/08/21 08:00 Pulse 92 08/08/21 10:00 Resp 45 H 08/08/21 10:00 BP 105/50 08/07/21 13:06 Pulse Ox 80 L 08/08/21 10:00 Intake & Output 08/07/21 08/08/21 08/08/21 18:59 06:59 18:59 Intake Total 8785.197 3415.585 570.141 Output Total 2230 418 0 Balance -698.480 705.585 570.141 Weight 92.4 kg Intake: IV 340 340 180 Lactated Ringers 1,000 ml 240 240 80 @ 20 mls/hr IV .Q24H [facility] Rx#:[id number] Piperacillin-Tazobactam 3 100 100 100 .375 gm In Sodium Chloride 0.9% 100 ml @ 25 mls/hr IVPB Q8HR [facility] Rx# :[id number] Intake, IV Titration 459.520 177.585 135.141 Amount Norepinephrine 8 mg In 172.565 99.394 Sodium Chloride 0.9% 250 ml @ 0.05 MCG/KG/MIN 9. 348 mls/hr IV .Q24H [facility] Rx#:[id number] propofoL 1,000 mg In 286.955 177.585 35.747 Empty Bag 1 bag @ 5 MCG/ KG/MIN 2.898 mls/hr IV . Q24H [facility] Rx#:[id number] Tube Feeding 462 396 165 Lipid 100 Lactated Ringers 1,000 ml 100 @ 20 mls/hr IV .Q24H [facility] Rx#:[id number] Other 170 210 90 Output: Urine 30 18 0 Stool 200 400 Hemodialysis 1999 Other: Voiding Method Indwelling Catheter Indwelling Catheter Indwelling Catheter ABP, PAP, CO, CI - Last Documented Arterial Blood Pressure 147/59 - Exam No acute distress, sedated, with an orally placed endotracheal tube and NG tube. The patient is chronically ill appearing. HEENT examination is grossly unremarkable. Neck supple. Full range of motion. No adenopathy thyromegaly or neck vein distention. Cardiovascular examination reveals regular rhythm rate. S1-S2 normal. No S3 or S4. No discernible murmur noted. Heart rate 92 bpm. Lungs reveal coarse bilateral rhonchi, and bilateral crackles. No wheezes. Alla ath sounds equal bilaterally. Abdomen soft, without bowel sounds. Extremities are intact. No cyanosis clubbing or edema. Skin is without rash or lesion. Neurologic examination cannot be properly assessed. - Labs CBC & Chem 7: 08/08/21 03:35 08/08/21 03:35 Labs: Abnormal Lab Results - Last 24 Hours (Table) 08/07/21 08/07/21 08/07/21 Range/Units 12:17 14:15 18:11 WBC (3.8-10.6) k/uL RBC (4.30-5.90) m/uL Hgb (13.0-17.5) gm/dL Hct (39.0-53.0) % MCHC (31.0-37.0) g/dL RDW (11.5-15.5) % Neutrophils # (1.3-7.7) k/uL Lymphocytes # (1.0-4.8) k/uL ABG pCO2 (35-45) mmHg ABG pO2 (83-108) mmHg ABG HCO3 (21-25) mmol/L ABG Total CO2 (19-24) mmol/L Sodium (137-145) mmol/L Potassium 3.2 L (3.5-5.1) mmol/L BUN (9-20) mg/dL Creatinine 1.74 H (0.66-1.25) mg/dL Glucose 167 H (74-99) mg/dL POC Glucose (mg/dL) 141 H 205 H (75-99) mg/dL AST 13 L (17-59) U/L Total Protein 5.4 L (6.3-8.2) g/dL Albumin 2.5 L (3.5-5.0) g/dL 08/08/21 08/08/21 08/08/21 Range/Units 01:02 03:35 03:35 WBC 13.2 H (3.8-10.6) k/uL RBC 2.48 L (4.30-5.90) m/uL Hgb 7.4 L (13.0-17.5) gm/dL Hct 24.7 L (39.0-53.0) % MCHC 30.0 L (31.0-37.0) g/dL RDW 17.1 H (11.5-15.5) % Neutrophils # 11.1 H (1.3-7.7) k/uL Lymphocytes # 0.8 L (1.0-4.8) k/uL ABG pCO2 (35-45) mmHg ABG pO2 (83-108) mmHg ABG HCO3 (21-25) mmol/L ABG Total CO2 (19-24) mmol/L Sodium 136 L (137-145) mmol/L Potassium (3.5-5.1) mmol/L BUN 23 H (9-20) mg/dL Creatinine 2.33 H (0.66-1.25) mg/dL Glucose 180 H (74-99) mg/dL POC Glucose (mg/dL) 186 H (75-99) mg/dL AST 12 L (17-59) U/L Total Protein 5.3 L (6.3-8.2) g/dL Albumin 2.5 L (3.5-5.0) g/dL 08/08/21 08/08/21 Range/Units 04:53 07:43 WBC (3.8-10.6) k/uL RBC (4.30-5.90) m/uL Hgb (13.0-17.5) gm/dL Hct (39.0-53.0) % MCHC (31.0-37.0) g/dL RDW (11.5-15.5) % Neutrophils # (1.3-7.7) k/uL Lymphocytes # (1.0-4.8) k/uL ABG pCO2 48 H (35-45) mmHg ABG pO2 66 L (83-108) mmHg ABG HCO3 29 H (21-25) mmol/L ABG Total CO2 30 H (19-24) mmol/L Sodium (137-145) mmol/L Potassium (3.5-5.1) mmol/L BUN (9-20) mg/dL Creatinine (0.66-1.25) mg/dL Glucose (74-99) mg/dL POC Glucose (mg/dL) 188 H (75-99) mg/dL AST (17-59) U/L Total Protein (6.3-8.2) g/dL Albumin (3.5-5.0) g/dL Microbiology - Last 24 Hours (Table) 08/04/21 20:20 Gram Stain - Final Sputum Sputum Culture - Final Corynebacterium striatum Assessment and Plan Assessment: Acute hypoxemic respiratory failure, requiring intubation and mechanical ventila tion on 08/04/2021. Chronic kidney disease, requiring hemodialysis. History of chronic atrial fibrillation. History of CHF. History of COPD. History of diabetes mellitus. History of DVT. History of gastroesophageal reflux disease. History of hyperlipidemia. History of hypertension. History of sleep apnea syndrome. History of pneumonia. Chronic hypoxemic respiratory failure. Multiple comorbidities. Plan: Plan dated 08/04/2021. The patient was intubated upon the floor, and transferred down to the intensive care unit, room 252. A right femoral triple-lumen catheter was placed, as well as a right femoral artery arterial line. The patient was started on propofol for sedation. In addition, the patient will be given norepinephrine for blood pressure support. The FiO2 was turned down from 100%, down to 50%. I told the nurse to have dietary start tube feedings today. Additional recommendations and suggestions are forthcoming. Labs, x-rays, and medications are reviewed. Unnecessary medications will be discontinued. Prognosis is guarded. Continue to follow the patient and make recommendations where appropriate. Plan dated 08/05/2021. The patient will be given some Dilaudid when necessary for pain control. In addition, we will attempt a daily interruption of sedation. The patient is not likely ready for weaning and extubation. In addition, the right femoral art line went bad, and we replaced it with a right brachial arterial line. In addition, there was a leak on the yard pilot balloon of the endotracheal tube, and a new #8 endotracheal tube was placed, using the endotracheal tube stylet. Labs, x-rays, and medications are all reviewed. Tube feedings will be increased to goal. Additional recommendations and suggestions are forthcoming. The patient has been having daily hemodialysis. We will continue to follow make recommendations where appropriate. Prognosis is guarded. Plan dated 08/06/2021. The patient's doing about the same. We did add some Dilaudid for pain control yesterday. Also yesterday, we placed a right brachial arterial line, as the right femoral arterial line had gone bad. In addition, we changed out the endotracheal tube, because there was a leak in the yard pilot balloon. The patient's labs, x-rays, and medications are all reviewed. The patient did have hemodialysis yesterday, and 2 L was removed. Patient remains on propofol and norepinephrine. Later today the patient will have a daily interruption of sedat ion, and if stable, possibly a spontaneous breathing trial. We will continue to follow make recommendations where appropriate. Prognosis is guarded. Plan dated 08/07/2021. The patient's doing about the same. The patient is undergoing hemodialysis today. The patient did not have hemodialysis yesterday. After hemodialysis, the FiO2 will be reduced down to 30%. The patient will need a daily i nterruption of sedation today. In addition, labs, x-rays, and medications are all reviewed. The patient remains on norepinephrine, lactated Ringer's, and propofol. The patient is receiving tube feedings. The patient overall prognosis is very guarded. We'll continue to follow make recommendations where appropriate. Plan dated 08/08/2021. The patient's doing about the same. We did attempt a daily interruption of sedation and a spontaneous breathing trial. The patient failed, became quite tachypnea, hypertensive, tachycardic, and his saturations dropped into the low 80s. The patient was re-sedated. The patient had hemodialysis yesterday. 2 L was removed. The patient remains on lactated Ringer's, propofol, and tube feedings. Arterial blood gases are reasonable. We will continue to follow the patient and make recommendations where appropriate. Overall prognosis remains very guarded. Time with Patient: Greater than 30
--- NOTE | 2021-08-08 11:16 | P.PN ---
Subjective Patient is seen for follow-up for acute kidney injury and top of chronic kidney disease Patient has underlying chronic kidney disease stage IV with recent worsening of his renal function since May 2021. Creatinine increased from 1.4 on 05/24/[address] up to 3.1 on 07/05/2021. Patient had acute kidney injury during his hospitalization last month and serum creatinine on discharge was 3.0. Acute kidney injury was mostly cardiorenal. Patient was diuresed and discharged on torsemide. He was admitted to the hospital now with a creatinine of around 10.2. Patient was started on dialysis on 07/27/2021. Patient has been treated for volume overload. Patient is seen in the ICU. He remains on the vent. FiO2 is at 40%. Sedation was decreased and patient was moving all 4 extremities and seemed to follow commands. However O2 sats dropped quickly after patient was put on CPAP. Currently his back on the vent with sedation. Levo fed at 0.01 mics. No significant urine output. FiO2 is at 30%. Objective - Vital Signs Vital signs: Vital Signs Temp 98.3 F 08/08/21 08:00 Pulse 81 08/08/21 11:00 Resp 26 H 08/08/21 11:00 BP 105/50 08/07/21 13:06 Pulse Ox 90 L 08/08/21 11:00 Intake & Output 08/07/21 08/08/21 08/08/21 18:59 06:59 18:59 Intake Total 0232.041 0685.585 700.594 Output Total 2230 418 0 Balance -698.480 705.585 700.594 Weight 92.4 kg Intake: IV 340 340 200 Lactated Ringers 1,000 ml 240 240 100 @ 20 mls/hr IV .Q24H [facility] Rx#:[id number] Piperacillin-Tazobactam 3 100 100 100 .375 gm In Sodium Chloride 0.9% 100 ml @ 25 mls/hr IVPB Q8HR [facility] Rx# :[id number] Intake, IV Titration 459.520 177.585 152.594 Amount Norepinephrine 8 mg In 172.565 100.422 Sodium Chloride 0.9% 250 ml @ 0.05 MCG/KG/MIN 9. 348 mls/hr IV .Q24H [facility] Rx#:[id number] propofoL 1,000 mg In 286.955 177.585 52.172 Empty Bag 1 bag @ 5 MCG/ KG/MIN 2.898 mls/hr IV . Q24H [facility] Rx#:[id number] Tube Feeding 462 396 198 Lipid 100 Lactated Ringers 1,000 ml 100 @ 20 mls/hr IV .Q24H [facility] Rx#:[id number] Other 170 210 150 Output: Urine 30 18 0 Stool 200 400 Hemodialysis 2000 Other: Voiding Method Indwelling Catheter Indwelling Catheter Indwelling Catheter ABP, PAP, CO, CI - Last Documented Arterial Blood Pressure 94/48 - Exam Patient is currently intubated. He is on the vent. FiO2 at 40% Bilateral breath sounds are heard Abdomen is soft nontender Examination lower extremities shows chronic skin changes. Improved edema. 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 performed as patient is sedated - Labs CBC & Chem 7: 08/08/21 03:35 08/08/21 03:35 Labs: Abnormal Lab Results - Last 24 Hours (Table) 08/07/21 08/07/21 08/07/21 Range/Units 12:17 14:15 18:11 WBC (3.8-10.6) k/uL RBC (4.30-5.90) m/uL Hgb (13.0-17.5) gm/dL Hct (39.0-53.0) % MCHC (31.0-37.0) g/dL RDW (11.5-15.5) % Neutrophils # (1.3-7.7) k/uL Lymphocytes # (1.0-4.8) k/uL ABG pCO2 (35-45) mmHg ABG pO2 (83-108) mmHg ABG HCO3 (21-25) mmol/L ABG Total CO2 (19-24) mmol/L Sodium (137-145) mmol/L Potassium 3.2 L (3.5-5.1) mmol/L BUN (9-20) mg/dL Creatinine 1.74 H (0.66-1.25) mg/dL Glucose 167 H (74-99) mg/dL POC Glucose (mg/dL) 141 H 205 H (75-99) mg/dL AST 13 L (17-59) U/L Total Protein 5.4 L (6.3-8.2) g/dL Albumin 2.5 L (3.5-5.0) g/dL 08/08/21 08/08/21 08/08/21 Range/Units 01:02 03:35 03:35 WBC 13.2 H (3.8-10.6) k/uL RBC 2.48 L (4.30-5.90) m/uL Hgb 7.4 L (13.0-17.5) gm/dL Hct 24.7 L (39.0-53.0) % MCHC 30.0 L (31.0-37.0) g/dL RDW 17.1 H (11.5-15.5) % Neutrophils # 11.1 H (1.3-7.7) k/uL Lymphocytes # 0.8 L (1.0-4.8) k/uL ABG pCO2 (35-45) mmHg ABG pO2 (83-108) mmHg ABG HCO3 (21-25) mmol/L ABG Total CO2 (19-24) mmol/L Sodium 136 L (137-145) mmol/L Potassium (3.5-5.1) mmol/L BUN 23 H (9-20) mg/dL Creatinine 2.33 H (0.66-1.25) mg/dL Glucose 180 H (74-99) mg/dL POC Glucose (mg/dL) 186 H (75-99) mg/dL AST 12 L (17-59) U/L Total Protein 5.3 L (6.3-8.2) g/dL Albumin 2.5 L (3.5-5.0) g/dL 08/08/21 08/08/21 Range/Units 04:53 07:43 WBC (3.8-10.6) k/uL RBC (4.30-5.90) m/uL Hgb (13.0-17.5) gm/dL Hct (39.0-53.0) % MCHC (31.0-37.0) g/dL RDW (11.5-15.5) % Neutrophils # (1.3-7.7) k/uL Lymphocytes # (1.0-4.8) k/uL ABG pCO2 48 H (35-45) mmHg ABG pO2 66 L (83-108) mmHg ABG HCO3 29 H (21-25) mmol/L ABG Total CO2 30 H (19-24) mmol/L Sodium (137-145) mmol/L Potassium (3.5-5.1) mmol/L BUN (9-20) mg/dL Creatinine (0.66-1.25) mg/dL Glucose (74-99) mg/dL POC Glucose (mg/dL) 188 H (75-99) mg/dL AST (17-59) U/L Total Protein (6.3-8.2) g/dL Albumin (3.5-5.0) g/dL Microbiology - Last 24 Hours (Table) 08/04/21 20:20 Gram Stain - Final Sputum Sputum Culture - Final Corynebacterium striatum Assessment and Plan Assessment: 1. Acute kidney injury most likely ATN, currently nonoliguric. However given the significantly elevated BUN/creatinine creatinine and volume overload with hyperkalemia, started on hemodialysis on 07/27/2021. No obstruction on ultrasou nd. UA shows trace protein and moderate blood. Serologies ordered to rule out underlying GN. Mostly all workup negative except for slightly decreased C3 levels. Not a candidate for kidney biopsy. 2. Chronic kidney disease NKF stage IIIB secondary to nephrosclerosis with previous creatinine as low as 1.4 in May 2021 but most recently staying as high as 3.1-3.0 on 07/07/2021 with episodes of acute kidney injury during his hospitalizations for CHF and pneumonia. 3. CHF exacerbation, diastolic 4. Volume overload, improving with dialysis. 5. Hyperkalemia associated with acute kidney injury, no urine retention noted, improved post dialysis 6. Acute hypercapnic respiratory failure, currently on the vent. Being treated for pneumonia. Also component of volume overload 7. Paroxysmal A. fib with controlled ventricular response status post pacemaker Plan: Hemodialysis in a.m.
[2021-08-08 11:31] LABS: Glucose,Whole Blood 169 mg/dL (75-99)
--- NOTE | 2021-08-08 12:03 | P.PN ---
Subjective Progress Note Date: 08/08/21 Patient is a 65-year-old male with multiple medical problems multiple comorbidities was recently discharged from the hospital after he was treated for volume or note from chronic gastritis function and the cardiorenal syndrome. Patient was discharged to rehab facility 2 days into rehab related patient patient went home and started having shortness of breath volume overload diffuse anasarca and pedal edema. Patient is found to be in significant volume or lower chest x-ray showed bilateral pleural effusion although this appears to have improved compared to last admission when he had thoracentesis. Patient has significant lab abnormalities including creatinine going up to around 10 potassium 6.2 very low magnesium of 0.9 nephrology was consulted. As per nephrology patient will lead hemodialysis, consult to vascular surgery was placed for hemodialysis catheter placement and patient will be subsequently started on hemodialysis. Patient does have advanced COPD uses about 5 L of oxygen. 07/28/2021 Patient is seen and evaluated and follow-up has received hemodialysis catheter and is receiving hemodialysis today. Kidney functions improving and patient reports to producing more urine. Current creatinine is 7.6 today potassium is 5.5 and sodium is 139. Blood sugars have been more manageable and will continue current regimen. Patient continues on 5 L via nasal cannula which is chronic for him. Nephrology following closely and will continue with dialysis daily at this time. Patient is also maintained on IV Lasix and will continue. Patient denies chest pain, shortness of breath, or palpitations. Patient is afebrile. No nausea or vomiting noted and patient is tolerating diet. subjective: resume the care of the pt today 07/29/2021 This is a pleasant 65 years old male with stage IV chronic kidney disease presents with fatigue and worsening kidney function requiring hemodialysis which is a started during this admission after a catheter placed in the right groin. He is hemodynamically stable, he is on 5 L per minute of oxygen but saturating 98-99%, we will try to titrate his oxygen down. No much dyspnea or cough and while he is lying flat in bed but he feels very weak all over. His been having recurrent nausea vomiting, mainly worked first of this morning but he is fully awake with no headache. No abdominal pain. He is hemodynamically stable, hemoglobin 7.4 with evidence of chronic anemia, also he is on ferrous sulfate once daily at home. This currently on home dose of liquids 2.5 and IV Lasix 60 mg twice daily. Ultrasound of the abdomen showing no hydronephrosis or nephrolithiasis. And chest x-ray showed small right pleural effusion with atelectasis. Also patient has chronic left leg wound secondary to a fall about 3 months ago. Patient refused to take the dressing off. We consulted once care. Patient is on Zofran already, we added Phenergan. We ordered a KUB. Also ask for PT OT evaluation. WOUND TEAM CONSULT 07/30/2021 Patient awake alert, no much tachypnea but he stayed in bed most of the time, he still at baseline of 4 L/m of oxygen. However patient reports coughing a lot and making a lot of phlegm, he said he has been diagnosed with pneumonia 2 weeks ago. Actually chest x-ray from yesterday showing bilateral infiltrate, I reviewed the chest x-ray by myself and it looks worse compared to admission despite starting him on a new hemodialysis and receiving Lasix for his CHF. Also we checked his pro-calcitonin and it is elevated at 0.5 for which is consistent with infection with this constellation of CHF, chest x-ray findings a nd elevated pro-calcitonin. Most likely and high suspicion for hospital acquired pneumonia and patient is a started on Zosyn last night. We going to repeat chest x-ray tomorrow morning. Bladder scan show minimal urine, Flomax was discontinued. Wound care R following the patient for his left foot wound. 07/31/2021 Patient seen in bed most of the time, physical therapy recommended rehab, I talk ed to him today about this recommendation and he is refusing now. He still on 4 L oxygen nasal cannula which looks like he is this is his baseline however he has coarse crepitation looks like it comes from secretion with decreased air entry on both sides, patient confirms to me he has history of COPD. However I would recommend he follow up with a silver wrapper as an outpatient. Repeat chest x-ray today showing no worsening infiltrate however it shows Similar multifocal airspace opacities. Correlate for congestive heart failure and/or diffuse airspace disease in the meantime we will keep him on Zosyn and check a pro-calcitonin tomorrow, if improvement we may consider oral antibiotic. However started on Solu-Medrol 60 mg 3 times a day today. He is kept on IV Lasix and hemodialysis I discussed the case with nephrology team and they recommended the permacath prior to discharge, discussed with bed side nurse to inform surgical vascular team. Workup showing anemia of chronic disease and he was started on arenasept by anesthesia tech. 08/01/2021 Patient clinically is doing well generally, he is breathing quietly, he is tolerating diet well, no bowel movement today Nephrology team on the case and plan for him to get the permacath by vascular surgery team hopefully tomorrow. Also his evidence of COPD exacerbation which is improving therefore Solu-Medrol our to 40 mg twice a day. Pro-calcitonin still elevated 0.68, currently on Zosyn, sputum cultures pending. However patient only having cough and phlegm which is pending as above. Saturation is 4-5 L/m which is his baseline. Rehab is recommended but patient was reluctant so far. 08/02/2021 Patient is lying in bed most of the time, his breathing is at baseline and is improving with less crepitation but he is coughing a lot . His oxygen requirement at baseline on 4 L/m which is his home dose. his hemoglobin dropped today to 5.7, his workup showing anemia of chronic disease despite being an IV and oral iron, workup showing anemia of chronic disease but cannot rule out GI bleed especially he's on liquids which is on hold today before going for procedure. Therefore we going to consult GI service in any way. Occult blood in his stool test is requested. Patient states he has 3- 4 loose bowel movements, we will check C. diff as well. No abdominal pain or vomiting. Patient is going for permacath placement today and hemodialysis tomorrow, he got hemodialysis this morning. Patient adamantly refusing to go to rehab despite recommendation for medical and nephrology team on several occasions. Patient and make his own decisions. 08/03/2021 Patient now wake and breathing comfortably at baseline, he is less coughing compared to yesterday after started on Robitussin D but today he wants to, more so I can bring stuff up out of his chest, therefore we change his Robitussin into when necessary dosing and he was informed. No chest pain or other symptoms. However there was some concerns of pulmonary congestion there for his colonoscopy/EGD for tomorrow is rescheduled until . He is placed on liquid diet therefore we lowered his Levemir form 25 units which is home dose down to 10 units tonight. His chest x-ray looks the same Reticulocyte count is 1.5 but he got one unit of transfusion. Currently hemo globin is holding at 8.1, glucose control, magnesium normal at 2.2, sodium at 1:30 and he is saturating at 4-5 L/m which is home dose. Diarrhea stopped, occult blood in stool is negative and C. diff negative. However still patient has possible GI bleed given his severe anemia while on Eliquis Repeat pro-calcitonin is pending, he remains on Zosyn He is complaining of from left wrist pain, deformity and decreased reclamation kettle tender secondary to fracture happened in May, he supposed to follow up with his o rthopedic doctor Wilmer however he was noncompliant, repeat left wrist x-ray looks the same, orthopedic input is appreciated they recommended no surgical intervention but follow-up outpatient while he is in splint Eliquis remains on hold after EGD/colonoscopy for sever anemia and possible GI bleed 08/04/2021 Patient today was 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 Repeat CT of the chest today showed no evidence of pulmonary embolism and there is extensive bilateral infiltrates concerning for aspiration. Currently he is saturating 98% on FiO2 of 50% and respiratory rate of 26. Labs reviewed and showing WBC of 14.6, creatinine down to 1.6, hemoglobin 10, potassium after placement 3.4. Patient labs reviewed remains on Zosyn, Pro-calcitonin is improving down to 0.3 prior to this episode of aspiration. Patient remains afebrile for now. His Eliquis remains on hold in view of his history of A. fib due for suspected GI bleed. Patient remains on Zosyn, Protonix and insulin sliding scale. Also patient placed on Lasix 80 mg daily and receives an extra dose this morning. While insulin 10 units is held 08/05/2021 Patient remains in the ICU sedated and intubated. He is off Levophed today. Metoprolol was held yesterday and his blood pressure improved, and this morning 87/54 and his rate was sinus rhythm at 93, no evidence of A. fib and RVR given his history of similar problem. Hemoglobin 7.9, which is known he is anemic, his Eliquis is still on hold for possible GI bleed with planned to undergo EGD/colonoscopy at certain point per GI team her on the case. Creatinine went up to 0.8. He is undergoing hemodialysis. Chest x-ray showed some improvement by a radiologist Remains on IV Zosyn for his recurrent aspiration pneumonia. Also Lasix was held. His prognosis remains guarded 08/07/2021 Patient is seen and evaluated and follow-up continues to be in the ICU on mechanical vent. Patient currently receiving hemodialysis and is currently off Levophed although being used as needed for blood pressures that are on the lower side. Patient continues on mechanical ventilation with an FiO2 of 40% and PEEP is 5 with multiple medical consultations are following. Hemoglobin is stable at 7.7 with no active bleeding noted. Patient also continues on IV Zosyn. Sputum cultures thus far are negative. Pulmonary following and highly suspicious for aspiration pneumonia. Recommend continue with breathing inhalational treatments and close monitoring. Chest x-ray today shows left upper lung edema and/or infiltrate and bibasilar atelectasis and/or infiltrates on the background with chronic changes and mild cardiomegaly redemonstrated with no significant change from one day previously. 08/08/2021 Patient continues to be monitored closely in the ICU on mechanical ventilation and currently intubated. FiO2 is 40% with PEEP of 5 . Sedation holidays being conducted on a daily basis to wean and possible extubate. Patient not quite ready for extubation at this time. FiO2 will be decreased to 30%. Chest x-ray today shows bilateral upper lung edema and/or infiltrates and bibasilar atelect asis and/or infiltrate some background chronic changes with mild cardiomegaly redemonstrated with no significant change from yesterday. Hemoglobin is stable at 7.4, WBC 13.2, kidney functions improving and creatinine is currently 2.33 and is continued on dialysis and expected to receive a session of hemodialysis in the morning. Repeat a.m. labs ordered and will continue to monitor closely. Review of systems: Unable to obtain as patient is currently intubated and sedated Active Medications Albuterol/Ipratropium (Ipratropium-Albuterol 3 Ml Neb) 3 ml INHALATION RT-Q4H PRN PRN Reason: Shortness Of Breath Last Admin: 08/04/21 00:33 Dose: 3 ml Documented by: Albuterol/Ipratropium (Ipratropium-Albuterol 3 Ml Neb) 3 ml INHALATION RT-Q4H [facility] Last Admin: 08/08/21 11:30 Dose: 3 ml Documented by: Allopurinol (Allopurinol 100 Mg Tab) 200 mg PO DAILY@1400 [facility] Last Admin: 08/07/21 14:13 Dose: 200 mg Documented by: Artificial Tears (Artificial Tears-Hypromellose Drops 15 Ml Btl) 2 drops BOTH EYES TID PRN PRN Reason: Dry Eye(s) Ascorbic Acid (Ascorbic Acid 500 Mg Tab) 1,000 mg PO BID [facility] Last Admin: 08/08/21 08:08 Dose: 1,000 mg Documented by: Budesonide (Budesonide 1 Mg/2 Ml Nebu) 1 mg INHALATION RT-BID [facility] Last Admin: 08/08/21 07:43 Dose: 1 mg Documented by: Chlorhexidine Gluconate (Chlorhexidine Gluconate 15 Ml Cup) 15 ml MUCOUS MEM BID [facility] Last Admin: 08/08/21 08:10 Dose: 15 ml Documented by: Cholecalciferol (Cholecalciferol 25 Mcg (1000 Iu) Tablet) 25 mcg PO DAILY [facility] Last Admin: 08/08/21 08:08 Dose: 25 mcg Documented by: Darbepoetin Hubert (Darbepoetin Hubert 60 Mcg/0.3 Ml Syringe) 60 mcg SQ Q7D [facility] Last Admin: 08/01/21 22:30 Dose: 60 mcg Documented by: Formoterol Fumarate (Formoterol Fumarate 20 Mcg/2 Ml Nebu) 20 mcg INHALATION RT-BID [facility] Last Admin: 08/08/21 07:43 Dose: 20 mcg Documented by: Hydromorphone HCl (Hydromorphone 1 Mg/Ml 1 Ml Syringe) 1 mg IVP Q2HR PRN PRN Reason: Pain Last Admin: 08/05/21 21:04 Dose: 1 mg Documented by: Piperacillin Sod/Tazobactam (Sod 3.375 gm/ Sodium Chloride) 100 mls @ 25 mls/hr IVPB Q8HR [facility]; Protocol Last Admin: 08/08/21 08:09 Dose: 25 mls/hr Documented by: Norepinephrine Bitartrate 8 mg (/ Sodium Chloride) 258 mls @ 9.348 mls/hr IV .Q24H [facility]; Protocol Last Titration: 08/08/21 10:56 Dose: 0.02 mcg/kg/min, 3.739 mls/hr Documented by: Propofol 1,000 mg/ IV Solution 100 mls @ 2.898 mls/hr IV .Q24H [facility]; Protocol Last Titration: 08/08/21 10:57 Dose: 45 mcg/kg/min, 26.086 mls/hr Documented by: Lactated Ringer's (Lactated Ringers) 1,000 mls @ 20 mls/hr IV .Q24H [facility] Last Admin: 08/08/21 07:58 Dose: 20 mls/hr Documented by: Insulin Aspart (Insulin Aspart (Novolog) 100 Unit/Ml Vial) 0 unit SQ Q6H [facility]; Protocol Last Admin: 08/08/21 07:53 Dose: 2 unit Documented by: Levothyroxine Sodium (Levothyroxine 25 Mcg Tab) 25 mcg PO DAILY@0630 [facility] Last Admin: 08/08/21 07:54 Dose: 25 mcg Documented by: Metoprolol Tartrate (Metoprolol Tartrate 25 Mg Tab) 25 mg PO BID [facility] Last Admin: 08/08/21 08:08 Dose: 25 mg Documented by: Miscellaneous Information (Magnesium Replacement Protocol 1 Each Misc) 1 each MISCELLANE DAILY PRN; Protocol PRN Reason: Per Protocol Naloxone HCl (Naloxone 0.4 Mg/Ml 1 Ml Vial) 0.2 mg IV Q2M PRN PRN Reason: Opioid Reversal Ondansetron HCl (Ondansetron 4 Mg Tab) 4 mg PO Q8H PRN PRN Reason: Nausea And Vomiting Ondansetron HCl (Ondansetron 4 Mg/2 Ml Vial) 4 mg IVP Q6HR PRN PRN Reason: Nausea And Vomiting Last Admin: 08/03/21 10:03 Dose: 4 mg Documented by: Pantoprazole Sodium (Pantoprazole 40 Mg/10 Ml Vial) 40 mg IV DAILY [facility] Last Admin: 08/08/21 08:08 Dose: 40 mg Documented by: Physical exam: GENERAL: The patient is intubated and sedated, currently continues on mechanical vent and FiO2 decreased to 30% with PEEP of 5 HEENT: Pupils are round and equally reacting to light. EOMI. No scleral icterus. No conjunctival pallor. Normocephalic, atraumatic. No pharyngeal erythema. No thyromegaly. CARDIOVASCULAR: S1 and S2 present. No murmurs, rubs, or gallops. PULMONARY: Chest is clear to auscultation, no wheezing or crackles. Decreased breath sounds on both sides with weak expiratory efforts. Right upper chest permacath ABDOMEN: Soft, nontender, nondistended, normoactive bowel sounds. No palpable organomegaly. MUSCULOSKELETAL: No joint swelling or deformity. EXTREMITIES: No cyanosis, clubbing, or pedal edema. Left leg wound with dressing. NEUROLOGICAL: unable to assess as patient is intubated and sedated SKIN: No rashes. no petechiae. Assessment: - Recurrent aspiration leading to respiratory distress and currently intubated on mechanical ventilation in the ICU on 08/04/21 - Bilateral hospital acquired pneumonia is highly suspected - Acute kidney injury on stage IV CKD, started on hemodialysis during this admission - acute diastolic congestive heart failure secondary to cardiorenal - anasarca secondary to cardiorenal syndrome as mentioned above. Hemodialysis daily per nephrology for now - Anemia of chronic disease, with recent drop in hemoglobin. Rule out GI bleed - Loose bowel movement, C. diff colitis ruled out - Hypomagnesemia magnesium will be replaced per Protocol - Chronic respiratory failure secondary to COPD , 5 L of oxygen at home. There is evidence of acute exacerbation - Possible pneumonia, hospital-acquired with elevated pro-calcitonin 0.5 - Hypertension - Hyperlipidemia - Hypothyroidism - History of recent fall and fracture to the left wrist with malunion noted - Paroxsymal atrial fibrillation presently rate controlled patient does have sick sinus syndrome history patient has a pacemaker - Type 2 diabetes mellitus - GI prophylaxis - DVT prophylaxis - Full code Plan: This is a pleasant 65 years old male presents with acute kidney injury and CHF. Started on hemodialysis. Nephrology following closely patient is continued on hemodialysis and will receive another session on 08/09/2021 Continue with mechanical ventilation with pulmonary following . FiO2 is currently 30% with a PEEP of 5, sedation holidays daily to assess weaning parameters, per nursing staff patient was able to follow commands off sedation although unable to tolerate CPAP Continue with Zosyn and follow-up culture results, sputum cultures preliminary showing Corynebacterium striatum Continue with hemodialysis per nephrology team. Patient will need permacath, vascular surgery following, patient to receive another dose of hemodialysis tomorrow Eliquis 2.5 mg(on hold for possible gi bleed). No plans for any endoscopic intervention at this time and patient will need follow-up with GI once more stable Continue with insulin and sliding scale with accuchecks achs. Continue local wound care PT/OT: to evaluated once extubated Prognosis is overall extremely guarded The impression and plan of care has been dictated by Rochelle Salinas, Nurse Practitioner as directed. Dr. Garo MD I have performed a history and examination and MDM of this patient, discussed the same with the dictator, and agree with the dictator's assessment and plan as written ,documented as a scribe. Based on total visit time, I have performed more than 50% of the visit. Objective - Vital Signs Vital signs: Vital Signs Temp 97.9 F 08/08/21 04:00 Pulse 86 08/08/21 08:07 Resp 34 H 08/08/21 07:30 BP 105/50 08/07/21 13:06 Pulse Ox 89 L 08/08/21 07:30 Intake & Output 08/07/21 08/08/21 08/08/21 18:59 06:59 18:59 Intake Total 0154.260 6711.585 156.656 Output Total 2230 418 0 Balance -698.480 705.585 156.656 Weight 92.4 kg Intake: IV 340 340 20 Lactated Ringers 1,000 ml 240 240 20 @ 20 mls/hr IV .Q24H [facility] Rx#:[id number] Piperacillin-Tazobactam 3 100 100 .375 gm In Sodium Chloride 0.9% 100 ml @ 25 mls/hr IVPB Q8HR [facility] Rx# :[id number] Intake, IV Titration 459.520 177.585 103.656 Amount Norepinephrine 8 mg In 172.565 98.584 Sodium Chloride 0.9% 250 ml @ 0.05 MCG/KG/MIN 9. 348 mls/hr IV .Q24H [facility] Rx#:[id number] propofoL 1,000 mg In 286.955 177.585 5.072 Empty Bag 1 bag @ 5 MCG/ KG/MIN 2.898 mls/hr IV . Q24H [facility] Rx#:[id number] Tube Feeding 462 396 33 Lipid 100 Lactated Ringers 1,000 ml 100 @ 20 mls/hr IV .Q24H [facility] Rx#:[id number] Other 170 210 Output: Urine 30 18 0 Stool 200 400 Hemodialysis 1999 Other: Voiding Method Indwelling Catheter Indwelling Catheter ABP, PAP, CO, CI - Last Documented Arterial Blood Pressure 156/60 - Labs CBC & Chem 7: 08/08/21 03:35 08/08/21 03:35 Labs: Abnormal Lab Results - Last 24 Hours (Table) 08/07/21 08/07/21 08/07/21 Range/Units 06:00 09:46 12:17 WBC 13.2 H (3.8-10.6) k/uL RBC 2.53 L (4.30-5.90) m/uL Hgb 7.7 L (13.0-17.5) gm/dL Hct 25.4 L (39.0-53.0) % MCV 100.3 H (80.0-100.0) fL MCHC 30.3 L (31.0-37.0) g/dL RDW 17.2 H (11.5-15.5) % Neutrophils # 11.7 H (1.3-7.7) k/uL Lymphocytes # 0.5 L (1.0-4.8) k/uL ABG pCO2 (35-45) mmHg ABG pO2 (83-108) mmHg ABG HCO3 (21-25) mmol/L ABG Total CO2 (19-24) mmol/L Sodium (137-145) mmol/L Potassium (3.5-5.1) mmol/L BUN (9-20) mg/dL Creatinine (0.66-1.25) mg/dL Glucose (74-99) mg/dL POC Glucose (mg/dL) 141 H (75-99) mg/dL AST (17-59) U/L Total Protein (6.3-8.2) g/dL Albumin (3.5-5.0) g/dL Procalcitonin 3.96 H (0.02-0.09) ng/mL 08/07/21 08/07/21 08/08/21 Range/Units 14:15 18:11 01:02 WBC (3.8-10.6) k/uL RBC (4.30-5.90) m/uL Hgb (13.0-17.5) gm/dL Hct (39.0-53.0) % MCV (80.0-100.0) fL MCHC (31.0-37.0) g/dL RDW (11.5-15.5) % Neutrophils # (1.3-7.7) k/uL Lymphocytes # (1.0-4.8) k/uL ABG pCO2 (35-45) mmHg ABG pO2 (83-108) mmHg ABG HCO3 (21-25) mmol/L ABG Total CO2 (19-24) mmol/L Sodium (137-145) mmol/L Potassium 3.2 L (3.5-5.1) mmol/L BUN (9-20) mg/dL Creatinine 1.74 H (0.66-1.25) mg/dL Glucose 167 H (74-99) mg/dL POC Glucose (mg/dL) 205 H 186 H (75-99) mg/dL AST 13 L (17-59) U/L Total Protein 5.4 L (6.3-8.2) g/dL Albumin 2.5 L (3.5-5.0) g/dL Procalcitonin (0.02-0.09) ng/mL 08/08/21 08/08/21 08/08/21 Range/Units 03:35 03:35 04:53 WBC 13.2 H (3.8-10.6) k/uL RBC 2.48 L (4.30-5.90) m/uL Hgb 7.4 L (13.0-17.5) gm/dL Hct 24.7 L (39.0-53.0) % MCV (80.0-100.0) fL MCHC 30.0 L (31.0-37.0) g/dL RDW 17.1 H (11.5-15.5) % Neutrophils # 11.1 H (1.3-7.7) k/uL Lymphocytes # 0.8 L (1.0-4.8) k/uL ABG pCO2 48 H (35-45) mmHg ABG pO2 66 L (83-108) mmHg ABG HCO3 29 H (21-25) mmol/L ABG Total CO2 30 H (19-24) mmol/L Sodium 136 L (137-145) mmol/L Potassium (3.5-5.1) mmol/L BUN 23 H (9-20) mg/dL Creatinine 2.33 H (0.66-1.25) mg/dL Glucose 180 H (74-99) mg/dL POC Glucose (mg/dL) (75-99) mg/dL AST 12 L (17-59) U/L Total Protein 5.3 L (6.3-8.2) g/dL Albumin 2.5 L (3.5-5.0) g/dL Procalcitonin (0.02-0.09) ng/mL 08/08/21 Range/Units 07:43 WBC (3.8-10.6) k/uL RBC (4.30-5.90) m/uL Hgb (13.0-17.5) gm/dL Hct (39.0-53.0) % MCV (80.0-100.0) fL MCHC (31.0-37.0) g/dL RDW (11.5-15.5) % Neutrophils # (1.3-7.7) k/uL Lymphocytes # (1.0-4.8) k/uL ABG pCO2 (35-45) mmHg ABG pO2 (83-108) mmHg ABG HCO3 (21-25) mmol/L ABG Total CO2 (19-24) mmol/L Sodium (137-145) mmol/L Potassium (3.5-5.1) mmol/L BUN (9-20) mg/dL Creatinine (0.66-1.25) mg/dL Glucose (74-99) mg/dL POC Glucose (mg/dL) 188 H (75-99) mg/dL AST (17-59) U/L Total Protein (6.3-8.2) g/dL Albumin (3.5-5.0) g/dL Procalcitonin (0.02-0.09) ng/mL Microbiology - Last 24 Hours (Table) 08/04/21 20:20 Gram Stain - Final Sputum Sputum Culture - Final Corynebacterium striatum
[2021-08-08] MEDS: allopurinoL 100 MG TAB PO SCH (14:49)
[2021-08-08 17:56] LABS: Glucose,Whole Blood 191 mg/dL (75-99)
[2021-08-08] MEDS: DARBEPOETIN ALFA 60 MCG/0.3 ML SYRINGE SQ SCH (20:58)
[2021-08-09 00:05] LABS: Glucose,Whole Blood 174 mg/dL (75-99)
[2021-08-09] MEDS: PIPERACILLIN-TAZOBACTAM 3.375 GM in SODIUM CHLORIDE 0.9% 100 ML IVPB SCH ×3 (00:20→16:56)
[2021-08-09] MEDS: INSULIN ASPART (NovoLOG) 100 UNIT/ML VIAL SQ SCH ×4 (00:23→17:47)
[2021-08-09] MEDS: IPRATROPIUM-ALBUTEROL 3 ML NEB INHALATION SCH ×5 (03:36→20:07)
[2021-08-09 06:03] LABS: ABG Base Excess -0.8 mmol/L; ABG HCO3 26 mmol/L (21-25); ABG Oxygen Saturation 97.5 % (94-97); ABG PCO2 51 mmHg (35-45); ABG PH 7.31 (7.35-7.45); ABG PO2 100 mmHg (83-108); ABG TCO2 27 mmol/L (19-24); Allen Test Performed? Yes
[2021-08-09 07:01] LABS: Glucose,Whole Blood 188 mg/dL (75-99)
[2021-08-09] MEDS: LEVOTHYROXINE 25 MCG TAB PO SCH (07:04)
[2021-08-09] MEDS: FORMOTEROL FUMARATE 20 MCG/2 ML NEBU INHALATION SCH ×2 (07:25→20:07)
[2021-08-09] MEDS: BUDESONIDE 1 MG/2 ML NEBU INHALATION SCH ×2 (07:25→20:06)
[2021-08-09] MEDS ORDERED: VANCOMYCIN IV PER PHARMACY 1 EACH MISC MISCELLANE PRN (08:05)
--- NOTE | 2021-08-09 08:11 | XR ---
EXAMINATION TYPE: XR chest 1V portable DATE OF EXAM: 08/09/2021 COMPARISON: Chest x-ray 08/08/2021 HISTORY: Intubated TECHNIQUE: Single frontal view of the chest is obtained. FINDINGS: Endotracheal tube, NG tube, right jugular central venous catheter are overlying appropriat e positions. Pacemaker shows a generator in the left pectoral region, leads are again noted in the ri ght atrium and ventricle. Distal aspect of the ventricular lead is not included on exam however. Ther e is no evident pneumothorax or sizable effusion. There are overlying leads and artifacts. Interstiti um is increased. Patchy density is noted at the right hemidiaphragm level. Left costophrenic angle no t entirely included on exam. Cardiac mediastinal silhouette is unchanged. IMPRESSION: Findings are similar to prior exam. Correlate for pneumonia, edema.
[2021-08-09] MEDS ORDERED: VANCOMYCIN 1,500 MG in SODIUM CHLORIDE 0.9% 250 ML IVPB ONE (08:30)
[2021-08-09] MEDS: CHOLECALCIFEROL 25 MCG (1000 IU) TABLET PO SCH (08:48)
[2021-08-09] MEDS: METOPROLOL TARTRATE 25 MG TAB PO SCH ×2 (08:48→21:17)
[2021-08-09] MEDS: CHLORHEXIDINE GLUCONATE 15 ML CUP MUCOUS MEM SCH ×2 (08:48→21:17)
[2021-08-09] MEDS: ASCORBIC ACID 500 MG TAB PO SCH ×2 (08:48→21:17)
[2021-08-09] MEDS: PANTOPRAZOLE 40 MG/10 ML VIAL IV SCH (08:49)
[2021-08-09] MEDS: methylPREDNISolone SOD SUCCI 125 MG/2 ML VIAL IV SCH ×3 (10:10→17:39)
[2021-08-09 10:14] LABS: Anisocytosis Slight; HCT 25.4 % (39.0-53.0); HGB 7.7 gm/dL (13.0-17.5); Hypochromasia Marked; MCH 29.9 pg (25.0-35.0); MCHC 30.1 g/dL (31.0-37.0); MCV 99.3 fL (80.0-100.0); Macrocytosis Slight; Mean Platelet Volume 9.1; Platelet Count 247 k/uL (150-450); Poikilocytosis Slight; RBC 2.56 m/uL (4.30-5.90); WBC 18.2 k/uL (3.8-10.6)
[2021-08-09 10:45] LABS: Albumin 2.6 g/dL (3.5-5.0); Calcium 8.9 mg/dL (8.4-10.2); Potassium 3.5 mmol/L (3.5-5.1); Total Bilirubin 0.3 mg/dL (0.2-1.3); Total Protein 5.8 g/dL (6.3-8.2)
[2021-08-09 11:11] LABS: Band Neutrophils % 4 %; Lymphocytes # (M) 0.73 k/uL (1.0-4.8); Metamyelocytes # (M) 0.36 k/uL (0); Metamyelocytes % 2 %; Monocytes # (M) 1.46 k/uL (0-1.0); Myelocytes # (M) 0.36 k/uL (0); Myelocytes % 2 %; Neutrophils % (M) 82 %; Nucleated Red Blood Cells 0 /100 WBC (0-0); Total Cells Counted 200
[2021-08-09 11:13] LABS: Basophilic Stippling Present; Polychromasia Present
[2021-08-09 11:21] LABS: Glucose,Whole Blood 153 mg/dL (75-99)
--- NOTE | 2021-08-09 11:21 | P.PN ---
Subjective Patient is a 65-year-old male with multiple medical problems multiple comorbidities was recently discharged from the hospital after he was treated for volume or note from chronic gastritis function and the cardiorenal syndrome. Patient was discharged to rehab facility 2 days into rehab related patient patient went home and started having shortness of breath volume overload diffuse anasarca and pedal edema. Patient is found to be in significant volume or lower chest x-ray showed bilateral pleural effusion although this appears to have improved compared to last admission when he had thoracentesis. Patient has significant lab abnormalities including creatinine going up to around 10 potassium 6.2 very low magnesium of 0.9 nephrology was consulted. As per nephrology patient will lead hemodialysis, consult to vascular surgery was placed for hemodialysis catheter placement and patient will be subsequently started on hemodialysis. Patient does have advanced COPD uses about 5 L of oxygen. 07/28/2021 Patient is seen and evaluated and follow-up has received hemodialysis catheter and is receiving hemodialysis today. Kidney functions improving and patient reports to producing more urine. Current creatinine is 7.6 today potassium is 5 .5 and sodium is 139. Blood sugars have been more manageable and will continue current regimen. Patient continues on 5 L via nasal cannula which is chronic for him. Nephrology following closely and will continue with dialysis daily at this time. Patient is also maintained on IV Lasix and will continue. Patient denies chest pain, shortness of breath, or palpitations. Patient is afebrile. No nausea or vomiting noted and patient is tolerating diet. subjective: resume the care of the pt today 07/29/2021 This is a pleasant 65 years old male with stage IV chronic kidney disease presents with fatigue and worsening kidney function requiring hemodialysis which is a started during this admission after a catheter placed in the right groin. He is hemodynamically stable, he is on 5 L per minute of oxygen but saturating 98-99%, we will try to titrate his oxygen down. No much dyspnea or cough and while he is lying flat in bed but he feels very weak all over. His been having recurrent nausea vomiting, mainly worked first of this morning but he is fully awake with no headache. No abdominal pain. He is hemodynamically stable, hemoglobin 7.4 with evidence of chronic anemia, also he is on ferrous sulfate once daily at home. This currently on home dose of liquids 2.5 and IV Lasix 60 mg twice daily. Ultrasound of the abdomen showing no hydronephrosis or nephrolithiasis. And chest x-ray showed small right pleural effusion with atelectasis. Also patient has chronic left leg wound secondary to a fall about 3 months ago. Patient refused to take the dressing off. We consulted once care. Patient is on Zofran already, we added Phenergan. We ordered a KUB. Also ask for PT OT evaluation. WOUND TEAM CONSULT 07/30/2021 Patient awake alert, no much tachypnea but he stayed in bed most of the time, he still at baseline of 4 L/m of oxygen. However patient reports coughing a lot and making a lot of phlegm, he said he has been diagnosed with pneumonia 2 weeks ago. Actually chest x-ray from yesterday showing bilateral infiltrate, I reviewed the chest x-ray by myself and it looks worse compared to admission despite starting him on a new hemodialysis and receiving Lasix for his CHF. Also we checked his pro-calcitonin and it is elevated at 0.5 for which is consistent with infection with this constellation of CHF, chest x-ray findings and elevated pro-calcitonin. Most likely and high suspicion for hospital acquired pneumonia and patient is a started on Zosyn last night. We going to repeat chest x-ray tomorrow morning. Bladder scan show minimal urine, Flomax was discontinued. Wound care R following the patient for his left foot wound. 07/31/2021 Patient seen in bed most of the time, physical therapy recommended rehab, I talked to him today about this recommendation and he is refusing now. He still on 4 L oxygen nasal cannula which looks like he is this is his baseline however he has coarse crepitation looks like it comes from secretion with decreased air entry on both sides, patient confirms to me he has history of COPD. However I would recommend he follow up with a collection administrator as an outpatient. Repeat chest x-ray today showing no worsening infiltrate however it shows Similar multifocal airspace opacities. Correlate for congestive heart failure and/or diffuse airspace disease in the meantime we will keep him on Zosyn and check a pro-calcitonin tomorrow, if improvement we may consider oral antibiotic. However started on Solu-Medrol 60 mg 3 times a day today. He is kept on IV Lasix and hemodialysis I discussed the case with nephrology team and they recommended the permacath prior to discharge, discussed with bed side nurse to inform surgical vascular team. Workup showing anemia of chronic disease and he was started on arenasept by disassembler product. 08/01/2021 Patient clinically is doing well generally, he is breathing quietly, he is tolerating diet well, no bowel movement today Nephrology team on the case and plan for him to get the permacath by vascular surgery team hopefully tomorrow. Also his evidence of COPD exacerbation which is improving therefore Solu-Medrol our to 40 mg twice a day. Pro-calcitonin still elevated 0.68, currently on Zosyn, sputum cultures pending. However patient only having cough and phlegm which is pending as above. Saturation is 4-5 L/m which is his baseline. Rehab is recommended but patient was reluctant so far. 08/02/2021 Patient is lying in bed most of the time, his breathing is at baseline and is i mproving with less crepitation but he is coughing a lot . His oxygen requirement at baseline on 4 L/m which is his home dose. his hemoglobin dropped today to 5.7, his workup showing anemia of chronic disease despite being an IV and oral iron, workup showing anemia of chronic disease but cannot rule out GI bleed especially he's on liquids which is on hold today before going for procedure. Therefore we going to consult GI service in any way. Occult blood in his stool test is requested. Patient states he has 3- 4 loose bowel movements, we will check C. diff as well. No abdominal pain or vomiting. Patient is going for permacath placement today and hemodialysis tomorrow, he got hemodialysis this morning. Patient adamantly refusing to go to rehab despite recommendation for medical and nephrology team on several occasions. Patient and make his own decisions. 08/03/2021 Patient now wake and breathing comfortably at baseline, he is less coughing compared to yesterday after started on Robitussin D but today he wants to, more so I can bring stuff up out of his chest, therefore we change his Robitussin into when necessary dosing and he was informed. No chest pain or other symptoms. However there was some concerns of pulmonary congestion there for his colonoscopy/EGD for tomorrow is rescheduled until . He is placed on liquid diet therefore we lowered his Levemir form 25 units which is home dose down to 10 units tonight. His chest x-ray looks the same Reticulocyte count is 1.5 but he got one unit of transfusion. Currently hemoglobin is holding at 8.1, glucose control, magnesium normal at 2.2, sodium at 1:30 and he is saturating at 4-5 L/m which is home dose. Diarrhea stopped, occult blood in stool is negative and C. diff negative. 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, he supposed to follow up with his orthopedic doctor Wilmer however he was noncompliant, repeat left wrist x-ray looks the same, orthopedic input is appreciated they recommended no surgical intervention but follow-up outpatient while he is in splint Eliquis remains on hold after EGD/colonoscopy for sever anemia and possible GI bleed 08/04/2021 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 Repeat CT of the chest today showed no evidence of pulmonary embolism and there is extensive bilateral infiltrates concerning for aspiration. Currently he is saturating 98% on FiO2 of 50% and respiratory rate of 26. Labs reviewed and showing WBC of 14.6, creatinine down to 1.6, hemoglobin 10, potassium after placement 3.4. Patient labs reviewed remains on Zosyn, Pro-calcitonin is improving down to 0.3 prior to this episode of aspiration. Patient remains afebrile for now. His Eliquis remains on hold in view of his history of A. fib due for suspected GI bleed. Patient remains on Zosyn, Protonix and insulin sliding scale. Also patient placed on Lasix 80 mg daily and receives an extra dose this morning. While insulin 10 units is held 08/05/2021 Patient remains in the ICU sedated and intubated. He is off Levophed today. Metoprolol was held yesterday and his blood pressure improved, and this morning 87/54 and his rate was sinus rhythm at 93, no evidence of A. fib and RVR given his history of similar problem. Hemoglobin 7.9, which is known he is anemic, his Eliquis is still on hold for possible GI bleed with planned to undergo EGD/colonoscopy at certain point per GI team her on the case. Creatinine went up to 0.8. He is undergoing hemodialysis. Chest x-ray showed some improvement by a radiologist Remains on IV Zosyn for his recurrent aspiration pneumonia. Also Lasix was held. His prognosis remains guarded 08/09/2021, resume the care of the patient today. Patient remains in the ICU intubated and sedated with pulmonary/critical care team following him closely. Patient with PEEP of 5 and FiO2 of 40%. He is developing fever today of 100.7. Sputum culture is positive for Corynebacterium. Currently is on Zosyn, because of his fever IV vancomycin was added today. His pro-calcitonin is elevated at 2.5. Other labs showing WBC of 1800, hemoglobin is stable at 7.7. Creatinine stable at 2.3. Chest x-ray showing similar changes as of last time with pneumonia and edema. [facility] was admitted for possible COPD exacerbation. Case discussed with pulmonary team Objective - Vital Signs Vital signs: Vital Signs Temp 100.7 F H 08/09/21 08:00 Pulse 80 08/09/21 08:00 Resp 26 H 08/09/21 08:00 BP 117/64 08/09/21 08:00 Pulse Ox 99 08/09/21 08:00 Intake & Output 08/08/21 08/09/21 08/09/21 18:59 06:59 18:59 Intake Total 1166.616 6681.155 340.685 Output Total 30 412 45 Balance 1505.347 672.155 295.685 Weight 95 kg Intake: IV 440 365 40 Lactated Ringers 1,000 ml 240 240 40 @ 20 mls/hr IV .Q24H [facility] Rx#:[id number] Piperacillin-Tazobactam 3 200 125 .375 gm In Sodium Chloride 0.9% 100 ml @ 25 mls/hr IVPB Q8HR [facility] Rx# :[id number] Intake, IV Titration 393.347 110.155 144.685 Amount Norepinephrine 8 mg In 123.883 10.155 44.685 Sodium Chloride 0.9% 250 ml @ 0.05 MCG/KG/MIN 9. 348 mls/hr IV .Q24H [facility] Rx#:[id number] propofoL 1,000 mg In 269.464 100 100 Empty Bag 1 bag @ 5 MCG/ KG/MIN 2.898 mls/hr IV . Q24H [facility] Rx#:[id number] Tube Feeding 462 429 66 Other 240 180 90 Output: Urine 30 12 45 Stool 400 Other: Voiding Method Indwelling Catheter Indwelling Catheter ABP, PAP, CO, CI - Last Documented Arterial Blood Pressure 110/48 - Exam -GENERAL: The patient is intubated and sedated HEENT: Pupils are round and equally reacting to light. EOMI. No scleral icterus. No conjunctival pallor. Normocephalic, atraumatic. No pharyngeal erythema. No thyromegaly. CARDIOVASCULAR: S1 and S2 present. No murmurs, rubs, or gallops. -PULMONARY: Chest is clear to auscultation, no wheezing or crackles. Decreased breath sounds on both sides with weak expiratory efforts. Right upper chest permacath ABDOMEN: Soft, nontender, nondistended, normoactive bowel sounds. No palpable organomegaly. MUSCULOSKELETAL: No joint swelling or deformity. EXTREMITIES: No cyanosis, clubbing, or pedal edema. Left leg wound with dressing. NEUROLOGICAL: Gross neurological examination did not reveal any focal deficits. SKIN: No rashes. no petechiae. - Labs CBC & Chem 7: 08/09/21 10:00 08/09/21 10:00 Labs: Abnormal Lab Results - Last 24 Hours (Table) 08/08/21 08/08/21 08/09/21 Range/Units 11:30 17:54 00:03 ABG pH (7.35-7.45) ABG pCO2 (35-45) mmHg ABG HCO3 (21-25) mmol/L ABG Total CO2 (19-24) mmol/L ABG O2 Saturation (94-97) % POC Glucose (mg/dL) 169 H 191 H 174 H (75-99) mg/dL Procalcitonin (0.02-0.09) ng/mL 08/09/21 08/09/21 08/09/21 Range/Units 05:56 06:59 07:00 ABG pH 7.31 L (7.35-7.45) ABG pCO2 51 H (35-45) mmHg ABG HCO3 26 H (21-25) mmol/L ABG Total CO2 27 H (19-24) mmol/L ABG O2 Saturation 97.5 H (94-97) % POC Glucose (mg/dL) 188 H (75-99) mg/dL Procalcitonin 2.54 H (0.02-0.09) ng/mL Assessment and Plan Assessment: - Recurrent aspiration leading to respiratory distress and currently being intubated on mechanical ventilation in the ICU - Bilateral hospital acquired pneumonia is highly suspected. Sputum culture is growing Corynebacterium - Acute COPD exacerbation - Acute kidney injury on stage IV CKD, started on edge D during this admission - acute diastolic congestive heart failure secondary to cardiorenal - anasarca secondary to cardiorenal syndrome as mentioned above. Hemodialysis daily per nephrology for now - Anemia of chronic disease, with recent drop in hemoglobin. Rule out GI bleed - Loose bowel movement, C. diff colitis ruled out -Hypomagnesemia magnesium will be replaced per Protocol -Chronic respiratory failure secondary to COPD , 5 L of oxygen at home. There is evidence of acute exacerbation -Possible pneumonia, hospital-acquired with elevated pro-calcitonin 0.5 -Hypertension -Hyperlipidemia -Hypothyroidism -History of recent fall and fracture to the left wrist with malunion noted -Paroxsymal atrial fibrillation presently rate controlled patient does have sick sinus syndrome history patient has a pacemaker -Type 2 diabetes mellitus Plan: This is a pleasant 65 years old male presents with acute kidney injury and CHF. Started on hemodialysis. Continue with mechanical ventilation with pulmonary/critical care team will consult Continue with Zosyn and IV vancomycin. Add iv solu Medrol IV Continue with hemodialysis per nephrology team. Patient will need permacath, v ascular surgery paged disContinue with home dose Eliquis 2.5 mg(on hold for possible bi bleed). Con tinue with insulin and ISS. Consult wound care Consult GI ( not available during this week in this facility ) hold Levemir Labs and medication were reviewed.. Continue same treatment. Continue with symptomatic treatment. Resume home medication. Monitor lytes and vitals. DVT and GI prophylaxis. Further recommendation sas per clinical course of the patient DVT prophylaxis: Eliquis (On hold ) GI Prophylaxis: Ppi PT/OT: Recommended subacute rehab once he improves, social insurance adviser consult Prognosis is guarded
--- NOTE | 2021-08-09 13:33 | P.PN ---
Subjective Progress Note Date: 08/09/21 On today's evaluation of 08/09/2021, see the patient for a follow-up. The patient remains intubated on a mechanical ventilator and the patient remains sedated. This morning, the patient is on propofol at 45 [place] respiratory per minute. The patient is an assist-control mode of mechanical ventilation at the rate of 26, tidal volume of 450, FiO2 of 30% with a PEEP of 5. The patient's blood gases from today shows a pH of 7.31 with a pCO2 of 51 and pO2 of 100. The chest x-ray was showing a left-sided consolidation which has recovered and the chest x-ray from today showing cardiomegaly and bilateral small pleural effusions. ET tube is in a good location. The patient's cardiac rhythm is sinus and the patient is on low-dose norepinephrine infusion running at 0.05 micrograms per kilogram per minute for hemodynamic support. The patient currently is also undergoing hemodialysis. The patient has a right-sided dialysis catheter in place. Noted the patient's last hemodialysis session was on 08/07/2021 and a total of 2 L of fluid was removed. He does have some liquidy stool and the patient has a fecal management system in place. The patient is receiving enteral feeding for nutritional support and the patient is currently on Nepro at the rate of 33 mL an hour. The patient has a right femoral triple-lumen catheter in place and a temporary dialysis catheter in his right IJ. Earlier this morning, he did spike a temperature. Based on that, cultures were sent including blood and sputum and the patient was covered with accommodation Zosyn and vancomycin. Pending further cultures. At the same time, I instructed the nursing staff to proceed with this point to proceed with a sedation holiday and assess the patient's mental status. Objective - Vital Signs Vital signs: Vital Signs Temp 100.7 F H 08/09/21 08:00 Pulse 96 08/09/21 11:55 Resp 35 H 08/09/21 11:00 BP 117/64 08/09/21 08:00 Pulse Ox 97 08/09/21 11:00 Intake & Output 08/08/21 08/09/21 08/09/21 18:59 06:59 18:59 Intake Total 5192.684 9683.155 574.685 Output Total 30 412 55 Balance 1505.347 672.155 519.685 Weight 95 kg Intake: IV 440 365 175 Lactated Ringers 1,000 ml 240 240 100 @ 20 mls/hr IV .Q24H [facility] Rx#:[id number] Piperacillin-Tazobactam 3 200 125 75 .375 gm In Sodium Chloride 0.9% 100 ml @ 25 mls/hr IVPB Q8HR [facility] Rx# :[id number] Intake, IV Titration 393.347 110.155 144.685 Amount Norepinephrine 8 mg In 123.883 10.155 44.685 Sodium Chloride 0.9% 250 ml @ 0.05 MCG/KG/MIN 9. 348 mls/hr IV .Q24H [facility] Rx#:[id number] propofoL 1,000 mg In 269.464 100 100 Empty Bag 1 bag @ 5 MCG/ KG/MIN 2.898 mls/hr IV . Q24H [facility] Rx#:[id number] Tube Feeding 462 429 165 Other 240 180 90 Output: Urine 30 12 55 Stool 400 Other: Voiding Method Indwelling Catheter Indwelling Catheter Indwelling Catheter ABP, PAP, CO, CI - Last Documented Arterial Blood Pressure 128/56 - Exam No acute distress, sedated, with an orally placed endotracheal tube and NG tube. The patient is chronically ill appearing. The patient is sedated and the patient is currently on propofol. Calm and comfortable. 6 is the mechanical ventilator. Head exam was generally normal. There was no scleral icterus or corneal arcus. Mucous membranes were moist. HEENT examination is grossly unremarkable. The patient has a right IJ temporary hemodialysis catheter in place and the exit site is dry clean and intact. Orogastric and orotracheal tube are both in place. Neck supple. Full range of motion. No adenopathy thyromegaly or neck vein distention. Cardiovascular examination reveals regular rhythm rate. S1-S2 normal. No S3 or S4. No discernible murmur noted. Lungs reveal coarse bilateral rhonchi, and bilateral crackles. No wheezes. Breath sounds equal bilaterally. AbdomenAbdominal exam revealed normal bowel sounds. The abdomen was soft, non- tender, and without masses, organomegaly, or appreciable enlargement of the abdominal aorta. Extremities are intact. No cyanosis clubbing or edema. SkinExamination of the skin revealed no evidence of significant rashes, suspicious appearing nevi or other concerning lesions. Neurologic the patient is sedated. The patient will be given a sedation holiday and his underlying mental status will be evaluated again this morning. - Labs CBC & Chem 7: 08/09/21 10:00 08/09/21 10:00 Labs: Abnormal Lab Results - Last 24 Hours (Table) 08/08/21 08/09/21 08/09/21 Range/Units 17:54 00:03 05:56 WBC (3.8-10.6) k/uL RBC (4.30-5.90) m/uL Hgb (13.0-17.5) gm/dL Hct (39.0-53.0) % MCHC (31.0-37.0) g/dL RDW (11.5-15.5) % Neutrophils # (Manual) (1.3-7.7) k/uL Lymphocytes # (Manual) (1.0-4.8) k/uL Monocytes # (Manual) (0-1.0) k/uL Metamyelocytes # (Man) (0) k/uL Myelocytes # (Manual) (0) k/uL ABG pH 7.31 L (7.35-7.45) ABG pCO2 51 H (35-45) mmHg ABG HCO3 26 H (21-25) mmol/L ABG Total CO2 27 H (19-24) mmol/L ABG O2 Saturation 97.5 H (94-97) % Sodium (137-145) mmol/L BUN (9-20) mg/dL Creatinine (0.66-1.25) mg/dL Glucose (74-99) mg/dL POC Glucose (mg/dL) 191 H 174 H (75-99) mg/dL Total Protein (6.3-8.2) g/dL Albumin (3.5-5.0) g/dL Procalcitonin (0.02-0.09) ng/mL 08/09/21 08/09/21 08/09/21 Range/Units 06:59 07:00 10:00 WBC 18.2 H (3.8-10.6) k/uL RBC 2.56 L (4.30-5.90) m/uL Hgb 7.7 L (13.0-17.5) gm/dL Hct 25.4 L (39.0-53.0) % MCHC 30.1 L (31.0-37.0) g/dL RDW 17.0 H (11.5-15.5) % Neutrophils # (Manual) 15.60 H (1.3-7.7) k/uL Lymphocytes # (Manual) 0.73 L (1.0-4.8) k/uL Monocytes # (Manual) 1.46 H (0-1.0) k/uL Metamyelocytes # (Man) 0.36 H (0) k/uL Myelocytes # (Manual) 0.36 H (0) k/uL ABG pH (7.35-7.45) ABG pCO2 (35-45) mmHg ABG HCO3 (21-25) mmol/L ABG Total CO2 (19-24) mmol/L ABG O2 Saturation (94-97) % Sodium (137-145) mmol/L BUN (9-20) mg/dL Creatinine (0.66-1.25) mg/dL Glucose (74-99) mg/dL POC Glucose (mg/dL) 188 H (75-99) mg/dL Total Protein (6.3-8.2) g/dL Albumin (3.5-5.0) g/dL Procalcitonin 2.54 H (0.02-0.09) ng/mL 08/09/21 08/09/21 Range/Units 10:00 11:20 WBC (3.8-10.6) k/uL RBC (4.30-5.90) m/uL Hgb (13.0-17.5) gm/dL Hct (39.0-53.0) % MCHC (31.0-37.0) g/dL RDW (11.5-15.5) % Neutrophils # (Manual) (1.3-7.7) k/uL Lymphocytes # (Manual) (1.0-4.8) k/uL Monocytes # (Manual) (0-1.0) k/uL Metamyelocytes # (Man) (0) k/uL Myelocytes # (Manual) (0) k/uL ABG pH (7.35-7.45) ABG pCO2 (35-45) mmHg ABG HCO3 (21-25) mmol/L ABG Total CO2 (19-24) mmol/L ABG O2 Saturation (94-97) % Sodium 136 L (137-145) mmol/L BUN 25 H (9-20) mg/dL Creatinine 2.34 H (0.66-1.25) mg/dL Glucose 148 H (74-99) mg/dL POC Glucose (mg/dL) 153 H (75-99) mg/dL Total Protein 5.8 L (6.3-8.2) g/dL Albumin 2.6 L (3.5-5.0) g/dL Procalcitonin (0.02-0.09) ng/mL Assessment and Plan Plan: Acute hypoxemic respiratory failure, requiring intubation and mechanical ventilation on 08/04/2021. The patient is a hypoxic respiratory failure is obviously multifactorial. The patient has advanced COPD. There was a component of fluid overload and the patient have a left lung consolidation is noted on the chest x-ray and a CAT scan of the chest. The patient is currently covered with broad-spectrum antibiotics. Initially was on Zosyn. His chest x-ray was reviewed. He is undergoing daily hemodialysis. The patient is to be given a sedation holiday and his underlying mental status and weaning parameters need to be checked. Chronic kidney disease, requiring hemodialysis. Last hemodialysis was on 08/07/2021 and the patient had a total of 2 L of ultrafiltration performed. History of chronic atrial fibrillation. History of CHF. History of COPD, advanced and the patient is oxygen dependent on outpatient basis History of diabetes mellitus. History of DVT. History of gastroesophageal reflux disease. History of hyperlipidemia. History of hypertension. History of sleep apnea syndrome. History of pneumonia. Chronic hypoxemic respiratory failure, secondary to COPD New-onset fever, currently under investigation Plan Wean off the propofol and assess the patient's mental status and check weaning parameters a possible Monitor the fever pattern Blood cultures 2 Sputum cultures Continue Zosyn and add vancomycin Wean off pressors and the patient is currently on low dose of norepinephrine infusion for blood pressure support Hemodialysis hopefully today Continue enteral feeding for nutritional support IV Solu Medrol be added based on his underlying COPD and pneumonia We'll continue to follow make further recommendations based on her progress. Condition remains critical and the prognosis poor baseline above-mentioned comorbidities. This evaluation was done and more than 30 minutes. Time with Patient: Greater than 30
--- NOTE | 2021-08-09 14:03 | P.PN ---
Subjective Patient is seen for follow-up for acute kidney injury and top of chronic kidney disease Patient has underlying chronic kidney disease stage IV with recent worsening of his renal function since May 2021. Creatinine increased from 1.4 on 05/24/[address] up to 3.1 on 07/05/2021. Patient had acute kidney injury during his hospitalization last month and serum creatinine on discharge was 3.0. Acute kidney injury was mostly cardiorenal. Patient was diuresed and discharged on torsemide. He was admitted to the hospital now with a creatinine of around 10.2. Patient was started on dialysis on 07/27/2021. Patient has been treated for volume overload. Patient is seen in the ICU. He remains on the vent. FiO2 is at 40%. Sedation was decreased yesterday and patient was moving all 4 extremities and seemed to follow commands. Running patient has low-grade fever. He is currently seen on dialysis. Levofed at 0.05 g Objective - Vital Signs Vital signs: Vital Signs Temp 100.7 F H 08/09/21 08:00 Pulse 96 08/09/21 11:55 Resp 35 H 08/09/21 11:00 BP 117/64 08/09/21 08:00 Pulse Ox 97 08/09/21 11:00 Intake & Output 08/08/21 08/09/21 08/09/21 18:59 06:59 18:59 Intake Total 0584.167 6165.155 574.685 Output Total 30 412 55 Balance 1505.347 672.155 519.685 Weight 95 kg Intake: IV 440 365 175 Lactated Ringers 1,000 ml 240 240 100 @ 20 mls/hr IV .Q24H [facility] Rx#:[id number] Piperacillin-Tazobactam 3 200 125 75 .375 gm In Sodium Chloride 0.9% 100 ml @ 25 mls/hr IVPB Q8HR [facility] Rx# :[id number] Intake, IV Titration 393.347 110.155 144.685 Amount Norepinephrine 8 mg In 123.883 10.155 44.685 Sodium Chloride 0.9% 250 ml @ 0.05 MCG/KG/MIN 9. 348 mls/hr IV .Q24H [facility] Rx#:[id number] propofoL 1,000 mg In 269.464 100 100 Empty Bag 1 bag @ 5 MCG/ KG/MIN 2.898 mls/hr IV . Q24H [facility] Rx#:[id number] Tube Feeding 462 429 165 Other 240 180 90 Output: Urine 30 12 55 Stool 400 Other: Voiding Method Indwelling Catheter Indwelling Catheter Indwelling Catheter ABP, PAP, CO, CI - Last Documented Arterial Blood Pressure 128/56 - Exam Patient is currently intubated. He is on the vent. FiO2 at 40% Bilateral breath sounds are heard Abdomen is soft nontender Examination lower extremities shows chronic skin changes. Improved edema. Left wrist swelling noted [employer] exam cannot be performed as patient is sedated - Labs CBC & Chem 7: 08/09/21 10:00 08/09/21 10:00 Labs: Abnormal Lab Results - Last 24 Hours (Table) 08/08/21 08/09/21 08/09/21 Range/Units 17:54 00:03 05:56 WBC (3.8-10.6) k/uL RBC (4.30-5.90) m/uL Hgb (13.0-17.5) gm/dL Hct (39.0-53.0) % MCHC (31.0-37.0) g/dL RDW (11.5-15.5) % Neutrophils # (Manual) (1.3-7.7) k/uL Lymphocytes # (Manual) (1.0-4.8) k/uL Monocytes # (Manual) (0-1.0) k/uL Metamyelocytes # (Man) (0) k/uL Myelocytes # (Manual) (0) k/uL ABG pH 7.31 L (7.35-7.45) ABG pCO2 51 H (35-45) mmHg ABG HCO3 26 H (21-25) mmol/L ABG Total CO2 27 H (19-24) mmol/L ABG O2 Saturation 97.5 H (94-97) % Sodium (137-145) mmol/L BUN (9-20) mg/dL Creatinine (0.66-1.25) mg/dL Glucose (74-99) mg/dL POC Glucose (mg/dL) 191 H 174 H (75-99) mg/dL Total Protein (6.3-8.2) g/dL Albumin (3.5-5.0) g/dL Procalcitonin (0.02-0.09) ng/mL 08/09/21 08/09/21 08/09/21 Range/Units 06:59 07:00 10:00 WBC 18.2 H (3.8-10.6) k/uL RBC 2.56 L (4.30-5.90) m/uL Hgb 7.7 L (13.0-17.5) gm/dL Hct 25.4 L (39.0-53.0) % MCHC 30.1 L (31.0-37.0) g/dL RDW 17.0 H (11.5-15.5) % Neutrophils # (Manual) 15.60 H (1.3-7.7) k/uL Lymphocytes # (Manual) 0.73 L (1.0-4.8) k/uL Monocytes # (Manual) 1.46 H (0-1.0) k/uL Metamyelocytes # (Man) 0.36 H (0) k/uL Myelocytes # (Manual) 0.36 H (0) k/uL ABG pH (7.35-7.45) ABG pCO2 (35-45) mmHg ABG HCO3 (21-25) mmol/L ABG Total CO2 (19-24) mmol/L ABG O2 Saturation (94-97) % Sodium (137-145) mmol/L BUN (9-20) mg/dL Creatinine (0.66-1.25) mg/dL Glucose (74-99) mg/dL POC Glucose (mg/dL) 188 H (75-99) mg/dL Total Protein (6.3-8.2) g/dL Albumin (3.5-5.0) g/dL Procalcitonin 2.54 H (0.02-0.09) ng/mL 08/09/21 08/09/21 Range/Units 10:00 11:20 WBC (3.8-10.6) k/uL RBC (4.30-5.90) m/uL Hgb (13.0-17.5) gm/dL Hct (39.0-53.0) % MCHC (31.0-37.0) g/dL RDW (11.5-15.5) % Neutrophils # (Manual) (1.3-7.7) k/uL Lymphocytes # (Manual) (1.0-4.8) k/uL Monocytes # (Manual) (0-1.0) k/uL Metamyelocytes # (Man) (0) k/uL Myelocytes # (Manual) (0) k/uL ABG pH (7.35-7.45) ABG pCO2 (35-45) mmHg ABG HCO3 (21-25) mmol/L ABG Total CO2 (19-24) mmol/L ABG O2 Saturation (94-97) % Sodium 136 L (137-145) mmol/L BUN 25 H (9-20) mg/dL Creatinine 2.34 H (0.66-1.25) mg/dL Glucose 148 H (74-99) mg/dL POC Glucose (mg/dL) 153 H (75-99) mg/dL Total Protein 5.8 L (6.3-8.2) g/dL Albumin 2.6 L (3.5-5.0) g/dL Procalcitonin (0.02-0.09) ng/mL Assessment and Plan Assessment: 1. Acute kidney injury most likely ATN, currently nonoliguric. However given the significantly elevated BUN/creatinine creatinine and volume overload with hyperkalemia, started on hemodialysis on 07/27/2021. No obstruction on ultrasound. UA shows trace protein and moderate blood. Serologies ordered to rule out underlying GN. Mostly all workup negative except for slightly decreased C3 levels. Not a candidate for kidney biopsy. 2. Chronic kidney disease NKF stage IIIB secondary to nephrosclerosis with previous creatinine as low as 1.4 in May 2021 but most recently staying as high as 3.1-3.0 on 07/07/2021 with episodes of acute kidney injury during his h ospitalizations for CHF and pneumonia. 3. CHF exacerbation, diastolic 4. Volume overload, improving with dialysis. 5. Hyperkalemia associated with acute kidney injury, no urine retention noted, improved post dialysis 6. Acute hypercapnic respiratory failure, currently on the vent. Being treated for pneumonia. Also component of volume overload 7. Paroxysmal A. fib with controlled ventricular response status post pacemaker Plan: Hemodialysis today with goal UF 2-2.5 L as tolerated
[2021-08-09] MEDS: NOREPINEPHRINE 8 MG in SODIUM CHLORIDE 0.9% 250 ML IV SCH (15:19)
--- NOTE | 2021-08-09 16:07 | CT ---
EXAMINATION TYPE: CT brain wo con DATE OF EXAM: 08/09/2021 HISTORY: Concern for stroke. Weakness. CT DLP: 1261.4 mGycm. Automated Exposure Control for Dose Reduction was Utilized. TECHNIQUE: CT scan of the head is performed without contrast. COMPARISON: CT brain 2017. FINDINGS: There is no acute intracranial hemorrhage or midline shift identified. There is mild to m oderate diffuse ventricular and sulcal prominence consistent with diffuse age-related cerebral atroph y. There is mild low-attenuation in the periventricular white matter consistent with chronic small v essel ischemic change. Some increased opacification ethmoid sinuses and right maxillary sinus slightl y more prominent from prior. Abnormal fluid filling the posterior nasopharynx similar to prior. Endot salvador and orogastric tubes noted on localizer. Persistent anterior metopic suture which is normal v ariant is redemonstrated. IMPRESSION: No acute intracranial hemorrhage or midline shift. There is mild to moderate diffuse ag e-related cerebral atrophy and mild chronic small vessel ischemic change redemonstrated. No significa nt change from prior CT.
[2021-08-09] MEDS: DEXMEDETOMIDINE/0.9% NACL(PMX) 400 MCG in EMPTY BAG 1 BAG IV SCH (16:25)
[2021-08-09] MEDS: allopurinoL 100 MG TAB PO SCH (16:56)
[2021-08-09 17:44] LABS: Glucose,Whole Blood 314 mg/dL (75-99)
[2021-08-09] MEDS: POTASSIUM BICARBONATE/CIT AC 20 MEQ TABLET.EFF PO SCH ×2 (18:13→21:30)
[2021-08-09] MEDS: LACTATED RINGERS 1,000 ML IV SCH (21:17)
[2021-08-09 23:58] LABS: Glucose,Whole Blood 289 mg/dL (75-99)
[2021-08-10] MEDS: IPRATROPIUM-ALBUTEROL 3 ML NEB INHALATION SCH ×7 (00:05→23:42)
[2021-08-10] MEDS: PIPERACILLIN-TAZOBACTAM 3.375 GM in SODIUM CHLORIDE 0.9% 100 ML IVPB SCH ×3 (00:40→19:08)
[2021-08-10] MEDS: INSULIN ASPART (NovoLOG) 100 UNIT/ML VIAL SQ SCH ×4 (00:40→19:36)
[2021-08-10] MEDS: methylPREDNISolone SOD SUCCI 125 MG/2 ML VIAL IV SCH ×3 (00:40→12:44)
[2021-08-10 05:26] LABS: Anisocytosis Slight; HCT 22.9 % (39.0-53.0); Hypochromasia Marked; MCH 29.9 pg (25.0-35.0); MCHC 29.9 g/dL (31.0-37.0); Macrocytosis Slight; Mean Platelet Volume 8.8; Platelet Count 226 k/uL (150-450); Poikilocytosis Slight; RBC 2.29 m/uL (4.30-5.90); RDW 16.8 % (11.5-15.5); WBC 10.7 k/uL (3.8-10.6)
[2021-08-10 05:47] LABS: Albumin 2.5 g/dL (3.5-5.0); Calcium 9.1 mg/dL (8.4-10.2); Potassium 5.1 mmol/L (3.5-5.1); Total Bilirubin 0.4 mg/dL (0.2-1.3); Total Protein 5.3 g/dL (6.3-8.2)
[2021-08-10 05:59] LABS: HGB 6.9 gm/dL (13.0-17.5)
[2021-08-10 06:04] LABS: ABG Base Excess 0.7 mmol/L; ABG HCO3 26 mmol/L (21-25); ABG Oxygen Saturation 96.4 % (94-97); ABG PCO2 48 mmHg (35-45); ABG PH 7.35 (7.35-7.45); ABG PO2 79 mmHg (83-108); ABG TCO2 28 mmol/L (19-24); Allen Test Performed? Yes
[2021-08-10 06:33] LABS: Glucose,Whole Blood 329 mg/dL (75-99)
[2021-08-10 06:37] LABS: Band Neutrophils % 4 %; Lymphocytes # (M) 0.43 k/uL (1.0-4.8); Metamyelocytes # (M) 0.32 k/uL (0); Metamyelocytes % 3 %; Monocytes # (M) 0.21 k/uL (0-1.0); Myelocytes # (M) 0.32 k/uL (0); Myelocytes % 3 %; Neutrophils % (M) 86 %; Nucleated Red Blood Cells 0 /100 WBC (0-0); Total Cells Counted 200
[2021-08-10 06:39] LABS: Basophilic Stippling Present; Toxic Granulation Present
[2021-08-10 06:41] LABS: Polychromasia Present
[2021-08-10] MEDS: LEVOTHYROXINE 25 MCG TAB PO SCH (06:46)
[2021-08-10] MEDS: FORMOTEROL FUMARATE 20 MCG/2 ML NEBU INHALATION SCH ×2 (07:20→19:26)
[2021-08-10] MEDS: BUDESONIDE 1 MG/2 ML NEBU INHALATION SCH ×2 (07:20→19:26)
[2021-08-10] MEDS ORDERED: INSULIN DETEMIR (LEVEMIR) 100 UNIT/ML SYR SQ SCH (08:00)
--- NOTE | 2021-08-10 08:15 | XR ---
EXAMINATION TYPE: XR chest 1V portable DATE OF EXAM: 08/10/2021 COMPARISON: Chest x-ray 08/09/2021 HISTORY: Intubated TECHNIQUE: Single frontal view of the chest is obtained. FINDINGS: Patient is rotated. Endotracheal tube, NG tube, pacemaker, central venous catheter are aga in noted and are overlying stable, appropriate positions. No evident pneumothorax. Left costophrenic angle not entirely included on the exam. Prominent interstitium, central vascularity noted. Patchy de nsity present at the lung bases, question some groundglass opacity in the upper lobes additionally. C ardiac mediastinal silhouette is stable. IMPRESSION: Correlate for possible edema, pneumonia not excluded. There is underlying emphysema. Dif ficult to exclude small effusion.
[2021-08-10] MEDS: ASCORBIC ACID 500 MG TAB PO SCH ×2 (08:23→20:12)
[2021-08-10] MEDS: CHOLECALCIFEROL 25 MCG (1000 IU) TABLET PO SCH (08:23)
[2021-08-10] MEDS: PANTOPRAZOLE 40 MG/10 ML VIAL IV SCH (08:23)
[2021-08-10] MEDS: METOPROLOL TARTRATE 25 MG TAB PO SCH ×2 (08:23→20:12)
[2021-08-10] MEDS: CHLORHEXIDINE GLUCONATE 15 ML CUP MUCOUS MEM SCH ×2 (08:28→20:12)
[2021-08-10 08:55] LABS: ABG Base Excess 0.2 mmol/L; ABG HCO3 27 mmol/L (21-25); ABG PCO2 59 mmHg (35-45); ABG PH 7.27 (7.35-7.45); ABG PO2 84 mmHg (83-108); ABG TCO2 29 mmol/L (19-24); Allen Test Performed? Yes
[2021-08-10] MEDS: NOREPINEPHRINE 8 MG in SODIUM CHLORIDE 0.9% 250 ML IV SCH ×2 (10:02→17:15)
[2021-08-10] MEDS: HYDROmorphone 1 MG/ML 1 ML SYRINGE IVP PRN ×5 (10:07→23:11)
[2021-08-10] MEDS ORDERED: VANCOMYCIN 1,500 MG in SODIUM CHLORIDE 0.9% 250 ML IVPB ONE (11:00)
[2021-08-10 11:30] LABS: Anisocytosis Slight; HCT 21.7 % (39.0-53.0); Hypochromasia Marked; MCH 30.1 pg (25.0-35.0); MCHC 30.1 g/dL (31.0-37.0); MCV 100.2 fL (80.0-100.0); Macrocytosis Slight; Mean Platelet Volume 9.3; Platelet Count 258 k/uL (150-450); Poikilocytosis Slight; RBC 2.16 m/uL (4.30-5.90); RDW 16.7 % (11.5-15.5); WBC 14.5 k/uL (3.8-10.6)
[2021-08-10 11:31] LABS: Glucose,Whole Blood 240 mg/dL (75-99)
--- NOTE | 2021-08-10 12:19 | P.PN ---
Subjective Progress Note Date: 08/10/21 On today's evaluation of 08/09/2021, see the patient for a follow-up. The patient remains intubated on a mechanical ventilator and the patient remains sedated. This morning, the patient is on propofol at 45 [place] respiratory per minute. The patient is an assist-control mode of mechanical ventilation at the rate of 26, tidal volume of 450, FiO2 of 30% with a PEEP of 5. The patient's blood gases from today shows a pH of 7.31 with a pCO2 of 51 and pO2 of 100. The chest x-ray was showing a left-sided consolidation which has recovered and the chest x-ray from today showing cardiomegaly and bilateral small pleural effusions. ET tube is in a good location. The patient's cardiac rhythm is sinus and the patient is on low-dose norepinephrine infusion running at 0.05 micrograms per kilogram per minute for hemodynamic support. The patient currently is also undergoing hemodialysis. The patient has a right-sided dialysis catheter in place. Noted the patient's last hemodialysis session was on 08/07/2021 and a total of 2 L of fluid was removed. He does have some liquidy stool and the patient has a fecal management system in place. The patient is receiving enteral feeding for nutritional support and the patient is currently on Nepro at the rate of 33 mL an hour. The patient has a right femoral triple-lumen catheter in place and a temporary dialysis catheter in his right IJ. Earlier this morning, he did spike a temperature. Based on that, cultures were sent including blood and sputum and the patient was covered with accommodation Zosyn and vancomycin. Pending further cultures. At the same time, I instructed the nursing staff to proceed with this point to proceed with a sedation holiday and assess the patient's mental status. On 08/10/2021, the patient is being seen for a follow-up. The patient remains intubated on a mechanical ventilator. On yesterday's evaluation, the patient was gradually taken off the sedation the patient showed adequate mentation. At one point, we thought that his pupils were unequal and based on that a CAT scan of the brain was done that showed no acute abnormalities. After discontinuing the propofol, the patient overnight had to be placed on low-dose Precedex which is currently running at 0.3 mcg/kg per minute. The patient is also off norepinephrine infusion since 9 PM yesterday. This morning, the patient is arousable. He is awake. He is on assist control mode of mechanical ventilation at the rate of 26 with a tidal volume of 450 and the rate of 26 with an FiO2 of 40% and a PEEP of 5. Blood gases showed a pH of 7.34 with a pCO2 of 48 and pO2 of 78 chest x-ray findings are essentially unchanged. The patient is afebrile for now. He did spike a temperature yesterday and the patient was given blood cultures and the patient was given a combination of Zosyn and vancomycin. Currently is afebrile and her most recent temperature is 90.9F. His white cell count is at 10.7 with hemoglobin of 6.9 and the patient's sodium level is at 138 with a potassium of 5 and a BUN of 40 with a creatinine of 3.0. The patient's underwent hemodialysis yesterday and the patient had ultrafiltration. He is on Nepro for enteral feeding and nutritional support at the rate of 20 mL an hour. He has a fecal management system in place and output is minimal at this point in time. Based on all this, the patient was given a sedation holiday. Weaning parameters were checked and the patient is being considered for possible extubation to BiPAP at a later stage and this large dependent on his ability to undergo this point is breathing trial. Objective - Vital Signs Vital signs: Vital Signs Temp 97.7 F 08/10/21 07:30 Pulse 78 08/10/21 11:23 Resp 8 L 08/10/21 09:00 BP 127/67 08/10/21 09:30 Pulse Ox 97 08/10/21 09:30 Intake & Output 08/09/21 08/10/21 08/10/21 18:59 06:59 18:59 Intake Total 1605.531 955.079 271.506 Output Total 3065 0 675 Balance -1459.469 955.079 -403.494 Weight 95 kg 94.3 kg Intake: IV 565 340 120 Lactated Ringers 1,000 ml 240 240 20 @ 20 mls/hr IV .Q24H [facility] Rx#:[id number] Piperacillin-Tazobactam 3 75 100 100 .375 gm In Sodium Chloride 0.9% 100 ml @ 25 mls/hr IVPB Q8HR [facility] Rx# :[id number] Vancomycin 1,500 mg In 250 Sodium Chloride 0.9% 250 ml @ 125 mls/hr IVPB ONCE [facility] Rx#:[id number] Intake, IV Titration 254.531 129.079 35.506 Amount Dexmedetomidine/0.9% NaCl 7.125 52.883 35.506 (Pmx) 400 mcg In Empty Bag 1 bag @ 0.2 MCG/KG/HR 4.75 mls/hr IV .Q21H4M [facility] Rx#:[id number] Norepinephrine 8 mg In 78.035 25.426 Sodium Chloride 0.9% 250 ml @ 0.05 MCG/KG/MIN 9. 348 mls/hr IV .Q24H [facility] Rx#:[id number] propofoL 1,000 mg In 169.371 50.770 Empty Bag 1 bag @ 5 MCG/ KG/MIN 2.898 mls/hr IV . Q24H [facility] Rx#:[id number] Tube Feeding 396 396 33 Hemodialysis 300 Other 90 90 83 Output: Urine 65 0 25 Stool 650 Hemodialysis 3000 Other: Voiding Method Indwelling Catheter Indwelling Catheter Indwelling Catheter ABP, PAP, CO, CI - Last Documented Arterial Blood Pressure 103/50 - Exam No acute distress, sedated, with an orally placed endotracheal tube and NG tube. The patient is chronically ill appearing. The patient is sedated and the patient is currently on propofol. Calm and comfortable. The patient is on a mechanical ventilator. Head exam was generally normal. There was no scleral icterus or corneal arcus. M ucous membranes were moist. HEENT examination is grossly unremarkable. The patient has a right IJ temporary hemodialysis catheter in place and the exit site is dry clean and intact. Orogastric and orotracheal tube are both in place. Neck supple. Full range of motion. No adenopathy thyromegaly or neck vein distention. Cardiovascular examination reveals regular rhythm rate. S1-S2 normal. No S3 or S4. No discernible murmur noted. Lungs reveal coarse bilateral rhonchi, and bilateral crackles. No wheezes. Breath sounds equal bilaterally. Abdominal exam revealed normal bowel sounds. The abdomen was soft, non-tender, and without masses, organomegaly, or appreciable enlargement of the abdominal aorta. Extremities are intact. No cyanosis clubbing or edema. SkinExamination of the skin revealed no evidence of significant rashes, suspicious appearing nevi or other concerning lesions. Neurologic the patient is sedated. The patient will be given a sedation holiday and his underlying mental status will be evaluated again this morning. Nevertheless, the patient is easily arousable. - Labs CBC & Chem 7: 08/10/21 04:35 08/10/21 04:35 Labs: Abnormal Lab Results - Last 24 Hours (Table) 08/09/21 08/09/21 08/10/21 Range/Units 17:42 23:57 04:35 WBC 10.7 H (3.8-10.6) k/uL RBC 2.29 L (4.30-5.90) m/uL Hgb 6.9 L* (13.0-17.5) gm/dL Hct 22.9 L (39.0-53.0) % MCHC 29.9 L (31.0-37.0) g/dL RDW 16.8 H (11.5-15.5) % Neutrophils # (Manual) 9.60 H (1.3-7.7) k/uL Lymphocytes # (Manual) 0.43 L (1.0-4.8) k/uL Metamyelocytes # (Man) 0.32 H (0) k/uL Myelocytes # (Manual) 0.32 H (0) k/uL ABG pH (7.35-7.45) ABG pCO2 (35-45) mmHg ABG pO2 (83-108) mmHg ABG HCO3 (21-25) mmol/L ABG Total CO2 (19-24) mmol/L BUN (9-20) mg/dL Creatinine (0.66-1.25) mg/dL Glucose (74-99) mg/dL POC Glucose (mg/dL) 314 H 289 H (75-99) mg/dL AST (17-59) U/L Total Protein (6.3-8.2) g/dL Albumin (3.5-5.0) g/dL 08/10/21 08/10/21 08/10/21 Range/Units 04:35 05:49 06:30 WBC (3.8-10.6) k/uL RBC (4.30-5.90) m/uL Hgb (13.0-17.5) gm/dL Hct (39.0-53.0) % MCHC (31.0-37.0) g/dL RDW (11.5-15.5) % Neutrophils # (Manual) (1.3-7.7) k/uL Lymphocytes # (Manual) (1.0-4.8) k/uL Metamyelocytes # (Man) (0) k/uL Myelocytes # (Manual) (0) k/uL ABG pH (7.35-7.45) ABG pCO2 48 H (35-45) mmHg ABG pO2 79 L (83-108) mmHg ABG HCO3 26 H (21-25) mmol/L ABG Total CO2 28 H (19-24) mmol/L BUN 40 H (9-20) mg/dL Creatinine 3.00 H (0.66-1.25) mg/dL Glucose 276 H (74-99) mg/dL POC Glucose (mg/dL) 329 H (75-99) mg/dL AST 16 L (17-59) U/L Total Protein 5.3 L (6.3-8.2) g/dL Albumin 2.5 L (3.5-5.0) g/dL 08/10/21 08/10/21 Range/Units 08:52 11:30 WBC (3.8-10.6) k/uL RBC (4.30-5.90) m/uL Hgb (13.0-17.5) gm/dL Hct (39.0-53.0) % MCHC (31.0-37.0) g/dL RDW (11.5-15.5) % Neutrophils # (Manual) (1.3-7.7) k/uL Lymphocytes # (Manual) (1.0-4.8) k/uL Metamyelocytes # (Man) (0) k/uL Myelocytes # (Manual) (0) k/uL ABG pH 7.27 L (7.35-7.45) ABG pCO2 59 H (35-45) mmHg ABG pO2 (83-108) mmHg ABG HCO3 27 H (21-25) mmol/L ABG Total CO2 29 H (19-24) mmol/L BUN (9-20) mg/dL Creatinine (0.66-1.25) mg/dL Glucose (74-99) mg/dL POC Glucose (mg/dL) 240 H (75-99) mg/dL AST (17-59) U/L Total Protein (6.3-8.2) g/dL Albumin (3.5-5.0) g/dL Microbiology - Last 24 Hours (Table) 08/09/21 09:20 Blood Culture - Preliminary Blood No Growth after 24 hours 08/09/21 20:30 Gram Stain - Preliminary Sputum Sputum Culture - Preliminary Assessment and Plan Plan: Acute hypoxemic respiratory failure, requiring intubation and mechanical ventilation on 08/04/2021. The patient is a hypoxic respiratory failure is obviously multifactorial. The patient has advanced COPD. There was a component of fluid overload and the patient have a left lung consolidation is noted on the chest x-ray and a CAT scan of the chest. The patient is currently covered with broad-spectrum antibiotics. Initially was on Zosyn. His chest x-ray was reviewed. He is undergoing daily hemodialysis. The patient was given a sedation holiday. The same will be done today and we'll check weaning parameters and sedation for possible extubation. The ventilator was checked. The chest x-ray was reviewed. Blood gases was also checked. Potential extubation today depending on his ability to recover from sedation and produce an adequate weaning parameters as pertains breathing trial. Chronic kidney disease, requiring hemodialysis. Last hemodialysis was on 08/07/2021 and the patient had a total of 2 L of ultrafiltration performed. Another session of hemodialysis was done on 08/09/2021. History of chronic atrial fibrillation. Patient currently is off anticoagulation. Anemia, chronic, hemoglobin is at 6.9. No evidence of any acute bleed History of CHF. History of COPD, advanced and the patient is oxygen dependent on outpatient basis History of diabetes mellitus. History of DVT. History of gastroesophageal reflux disease. History of hyperlipidemia. History of hypertension. History of sleep apnea syndrome. History of pneumonia. Chronic hypoxemic respiratory failure, secondary to COPD New-onset fever, currently under investigation, patient is currently on a mission Zosyn and vancomycin and the patient's cultures all negative. Currently afebrile hemodynamically stable off pressors. Plan Wean off the Precedex and assess the patient's mental status and check weaning parameters a possible Proceed with a spontaneous breathing trial if the weaning parameters are adequate Consider extubating patient to a BiPAP Monitor the fever pattern Blood cultures 2 Sputum cultures Continue Zosyn and add vancomycin Pressors have been discontinued Hemodialysis was done yesterday and the findings on the case Hold enteral feeding for nutritional support as the patient is undergoing weaning trials IV Solu Medrol and bronchodilators will be continued Repeat another hemoglobin at around noontime and transfuse as the patient shows any further drop in hemoglobin. We'll continue to follow make further recommendations based on her progress. Condition remains critical and the prognosis poor baseline above-mentioned comorbidities. This evaluation was done and more than 30 minutes. Time with Patient: Greater than 30
[2021-08-10 12:20] LABS: HGB 6.5 gm/dL (13.0-17.5)
--- NOTE | 2021-08-10 12:57 | P.PN ---
Subjective This 65-year-old with chronic respiratory failure uses her on 5 L of oxygen at home as her multiple medical problems including congestive heart failure diastolic dysfunction cardiac renal syndrome on hemodialysis. Patient has multiple other medical problems his prognosis is extremely poor patient is extubated today patient is intubated and multifactorial respiratory failure including COPD exacerbation pulmonary edema and pneumonia in the left lung. Patient is quite a bit tired patient has a fecal management system as well as a Werner catheter patient is not urinating much fecal management system did show blood because of which I'm consulting general surgery, patient's hemoglobin did drop will transfuse him 1 unit of PRBC patient last hemodialysis was yesterday patient probably will need to undergo hemodialysis today patient is quite tired and weak unable to even cough. She is presently on Zosyn and vancomycin Constitutional: Severely fatigued and tired Cardio vascular: denied any chest pain, palpitations Gastrointestinal denied any nausea vomiting Pulmonary: Short of breath Neurologic denied any new focal deficits All inpatient medications were reviewed and appropriate changes in these medications as dictated in the interval history and assessment and plan. PHYSICAL EXAMINATION: GENERAL: The patient is alert and oriented x3, quite tired sick looking H EENT: Pupils are round and equally reacting to light. EOMI. No scleral icterus. No conjunctival pallor. Normocephalic, atraumatic. No pharyngeal erythema. No thyromegaly. CARDIOVASCULAR: S1 and S2 present. No murmurs, rubs, or gallops. PULMONARY: basilar crackles and rhonchi ABDOMEN: Soft, nontender, nondistended, normoactive bowel sounds. No palpable organomegaly. Fecal management system and a Werner catheter MUSCULOSKELETAL: No joint swelling or deformity. EXTREMITIES: No cyanosis, clubbing, or pedal edema. NEUROLOGICAL: muscle atrophy of bilateral lower extremities. SKIN: No rashes. Assessment and plan -Acute multifactorial respiratory failure requiring intubation patient is presently extubated and is extubated on 08/10/2021 patient has pneumonia hospital-acquired is on Zosyn and vancomycin does have congestive heart failure hemodialysis dependent cardiorenal syndrome and COPD exacerbation - Bilateral hospital acquired pneumonia is highly suspected - Acute kidney injury on stage IV CKD, started on hemodialysis during this admission - acute diastolic congestive heart failure secondary to cardiorenal - anasarca secondary to cardiorenal syndrome as mentioned above for now received emergent dialysis yesterday. - Anemia of chronic disease, acute drop in hemoglobin secondary to acute blood loss anemia from GI bleed continue with Protonix and the surgery will be consulted transfuse 1 unit of PRBC - Chronic respiratory failure secondary to COPD , 5 L of oxygen at home. T - Hypertension - Hyperlipidemia - Hypothyroidism - History of recent fall and fracture to the left wrist with malunion noted - Paroxsymal atrial fibrillation presently rate controlled patient does have sick sinus syndrome history patient has a pacemaker - Type 2 diabetes mellitus - GI prophylaxis - DVT prophylaxis - Full code Objective - Vital Signs Vital signs: Vital Signs Temp 97.5 F L 08/10/21 12:00 Pulse 90 08/10/21 12:00 Resp 21 08/10/21 12:00 BP 123/73 08/10/21 12:00 Pulse Ox 98 08/10/21 12:00 Intake & Output 08/09/21 08/10/21 08/10/21 18:59 06:59 18:59 Intake Total 1605.531 955.079 271.506 Output Total 3065 0 675 Balance -1459.469 955.079 -403.494 Weight 95 kg 94.3 kg Intake: IV 565 340 120 Lactated Ringers 1,000 ml 240 240 20 @ 20 mls/hr IV .Q24H [facility] Rx#:[id number] Piperacillin-Tazobactam 3 75 100 100 .375 gm In Sodium Chloride 0.9% 100 ml @ 25 mls/hr IVPB Q8HR [facility] Rx# :[id number] Vancomycin 1,500 mg In 250 Sodium Chloride 0.9% 250 ml @ 125 mls/hr IVPB ONCE ONE Rx#:[id number] Intake, IV Titration 254.531 129.079 35.506 Amount Dexmedetomidine/0.9% NaCl 7.125 52.883 35.506 (Pmx) 400 mcg In Empty Bag 1 bag @ 0.2 MCG/KG/HR 4.75 mls/hr IV .Q21H4M [facility] Rx#:[id number] Norepinephrine 8 mg In 78.035 25.426 Sodium Chloride 0.9% 250 ml @ 0.05 MCG/KG/MIN 9. 348 mls/hr IV .Q24H [facility] Rx#:[id number] propofoL 1,000 mg In 169.371 50.770 Empty Bag 1 bag @ 5 MCG/ KG/MIN 2.898 mls/hr IV . Q24H [facility] Rx#:[id number] Tube Feeding 396 396 33 Hemodialysis 300 Other 90 90 83 Output: Urine 65 0 25 Stool 650 Hemodialysis 3000 Other: Voiding Method Indwelling Catheter Indwelling Catheter Indwelling Catheter ABP, PAP, CO, CI - Last Documented Arterial Blood Pressure 103/50 - Labs CBC & Chem 7: 08/10/21 11:16 08/10/21 04:35 Labs: Abnormal Lab Results - Last 24 Hours (Table) 08/09/21 08/09/21 08/10/21 Range/Units 17:42 23:57 04:35 WBC 10.7 H (3.8-10.6) k/uL RBC 2.29 L (4.30-5.90) m/uL Hgb 6.9 L* (13.0-17.5) gm/dL Hct 22.9 L (39.0-53.0) % MCV (80.0-100.0) fL MCHC 29.9 L (31.0-37.0) g/dL RDW 16.8 H (11.5-15.5) % Neutrophils # (Manual) 9.60 H (1.3-7.7) k/uL Lymphocytes # (Manual) 0.43 L (1.0-4.8) k/uL Metamyelocytes # (Man) 0.32 H (0) k/uL Myelocytes # (Manual) 0.32 H (0) k/uL ABG pH (7.35-7.45) ABG pCO2 (35-45) mmHg ABG pO2 (83-108) mmHg ABG HCO3 (21-25) mmol/L ABG Total CO2 (19-24) mmol/L BUN (9-20) mg/dL Creatinine (0.66-1.25) mg/dL Glucose (74-99) mg/dL POC Glucose (mg/dL) 314 H 289 H (75-99) mg/dL AST (17-59) U/L Total Protein (6.3-8.2) g/dL Albumin (3.5-5.0) g/dL 08/10/21 08/10/21 08/10/21 Range/Units 04:35 05:49 06:30 WBC (3.8-10.6) k/uL RBC (4.30-5.90) m/uL Hgb (13.0-17.5) gm/dL Hct (39.0-53.0) % MCV (80.0-100.0) fL MCHC (31.0-37.0) g/dL RDW (11.5-15.5) % Neutrophils # (Manual) (1.3-7.7) k/uL Lymphocytes # (Manual) (1.0-4.8) k/uL Metamyelocytes # (Man) (0) k/uL Myelocytes # (Manual) (0) k/uL ABG pH (7.35-7.45) ABG pCO2 48 H (35-45) mmHg ABG pO2 79 L (83-108) mmHg ABG HCO3 26 H (21-25) mmol/L ABG Total CO2 28 H (19-24) mmol/L BUN 40 H (9-20) mg/dL Creatinine 3.00 H (0.66-1.25) mg/dL Glucose 276 H (74-99) mg/dL POC Glucose (mg/dL) 329 H (75-99) mg/dL AST 16 L (17-59) U/L Total Protein 5.3 L (6.3-8.2) g/dL Albumin 2.5 L (3.5-5.0) g/dL 08/10/21 08/10/21 08/10/21 Range/Units 08:52 11:16 11:30 WBC 14.5 H (3.8-10.6) k/uL RBC 2.16 L (4.30-5.90) m/uL Hgb 6.5 L* (13.0-17.5) gm/dL Hct 21.7 L (39.0-53.0) % MCV 100.2 H (80.0-100.0) fL MCHC 30.1 L (31.0-37.0) g/dL RDW 16.7 H (11.5-15.5) % Neutrophils # (Manual) (1.3-7.7) k/uL Lymphocytes # (Manual) (1.0-4.8) k/uL Metamyelocytes # (Man) (0) k/uL Myelocytes # (Manual) (0) k/uL ABG pH 7.27 L (7.35-7.45) ABG pCO2 59 H (35-45) mmHg ABG pO2 (83-108) mmHg ABG HCO3 27 H (21-25) mmol/L ABG Total CO2 29 H (19-24) mmol/L BUN (9-20) mg/dL Creatinine (0.66-1.25) mg/dL Glucose (74-99) mg/dL POC Glucose (mg/dL) 240 H (75-99) mg/dL AST (17-59) U/L Total Protein (6.3-8.2) g/dL Albumin (3.5-5.0) g/dL Microbiology - Last 24 Hours (Table) 08/09/21 09:20 Blood Culture - Preliminary Blood No Growth after 24 hours 08/09/21 20:30 Gram Stain - Preliminary Sputum Sputum Culture - Preliminary
--- NOTE | 2021-08-10 13:42 | P.PN ---
Subjective Patient is seen for follow-up for acute kidney injury and top of chronic kidney disease Patient has underlying chronic kidney disease stage IV with recent worsening of his renal function since May 2021. Creatinine increased from 1.4 on 05/24/[address] up to 3.1 on 07/05/2021. Patient had acute kidney injury during his hospitalization last month and serum creatinine on discharge was 3.0. Acute kidney injury was mostly cardiorenal. Patient was diuresed and discharged on torsemide. He was admitted to the hospital now with a creatinine of around 10.2. Patient was started on dialysis on 07/27/2021. Patient has been treated for volume overload. This morning patient was extubated. He is currently on a Ventimask. Patient is awake. Following commands No significant urine output Off of pressors. Objective - Vital Signs Vital signs: Vital Signs Temp 97.5 F L 08/10/21 12:00 Pulse 86 08/10/21 13:00 Resp 15 08/10/21 13:00 BP 133/81 08/10/21 13:00 Pulse Ox 95 08/10/21 13:00 Intake & Output 08/09/21 08/10/21 08/10/21 18:59 06:59 18:59 Intake Total 1605.531 955.079 271.506 Output Total 3065 0 675 Balance -1459.469 955.079 -403.494 Weight 95 kg 94.3 kg Intake: IV 565 340 120 Lactated Ringers 1,000 ml 240 240 20 @ 20 mls/hr IV .Q24H [facility] Rx#:[id number] Piperacillin-Tazobactam 3 75 100 100 .375 gm In Sodium Chloride 0.9% 100 ml @ 25 mls/hr IVPB Q8HR [facility] Rx# :[id number] Vancomycin 1,500 mg In 250 Sodium Chloride 0.9% 250 ml @ 125 mls/hr IVPB ONCE ONE Rx#:[id number] Intake, IV Titration 254.531 129.079 35.506 Amount Dexmedetomidine/0.9% NaCl 7.125 52.883 35.506 (Pmx) 400 mcg In Empty Bag 1 bag @ 0.2 MCG/KG/HR 4.75 mls/hr IV .Q21H4M [facility] Rx#:[id number] Norepinephrine 8 mg In 78.035 25.426 Sodium Chloride 0.9% 250 ml @ 0.05 MCG/KG/MIN 9. 348 mls/hr IV .Q24H [facility] Rx#:[id number] propofoL 1,000 mg In 169.371 50.770 Empty Bag 1 bag @ 5 MCG/ KG/MIN 2.898 mls/hr IV . Q24H [facility] Rx#:[id number] Tube Feeding 396 396 33 Hemodialysis 300 Other 90 90 83 Output: Urine 65 0 25 Stool 650 Hemodialysis 3000 Other: Voiding Method Indwelling Catheter Indwelling Catheter Indwelling Catheter ABP, PAP, CO, CI - Last Documented Arterial Blood Pressure 103/50 - Exam Patient is extubated, awake, no acute distress Bilateral breath sounds are heard Abdomen is soft nontender Examination lower extremities shows chronic skin changes. Improved edema. 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 - Labs CBC & Chem 7: 08/10/21 11:16 08/10/21 04:35 Labs: Abnormal Lab Results - Last 24 Hours (Table) 08/09/21 08/09/21 08/10/21 Range/Units 17:42 23:57 04:35 WBC 10.7 H (3.8-10.6) k/uL RBC 2.29 L (4.30-5.90) m/uL Hgb 6.9 L* (13.0-17.5) gm/dL Hct 22.9 L (39.0-53.0) % MCV (80.0-100.0) fL MCHC 29.9 L (31.0-37.0) g/dL RDW 16.8 H (11.5-15.5) % Neutrophils # (Manual) 9.60 H (1.3-7.7) k/uL Lymphocytes # (Manual) 0.43 L (1.0-4.8) k/uL Metamyelocytes # (Man) 0.32 H (0) k/uL Myelocytes # (Manual) 0.32 H (0) k/uL ABG pH (7.35-7.45) ABG pCO2 (35-45) mmHg ABG pO2 (83-108) mmHg ABG HCO3 (21-25) mmol/L ABG Total CO2 (19-24) mmol/L BUN (9-20) mg/dL Creatinine (0.66-1.25) mg/dL Glucose (74-99) mg/dL POC Glucose (mg/dL) 314 H 289 H (75-99) mg/dL AST (17-59) U/L Total Protein (6.3-8.2) g/dL Albumin (3.5-5.0) g/dL 08/10/21 08/10/21 08/10/21 Range/Units 04:35 05:49 06:30 WBC (3.8-10.6) k/uL RBC (4.30-5.90) m/uL Hgb (13.0-17.5) gm/dL Hct (39.0-53.0) % MCV (80.0-100.0) fL MCHC (31.0-37.0) g/dL RDW (11.5-15.5) % Neutrophils # (Manual) (1.3-7.7) k/uL Lymphocytes # (Manual) (1.0-4.8) k/uL Metamyelocytes # (Man) (0) k/uL Myelocytes # (Manual) (0) k/uL ABG pH (7.35-7.45) ABG pCO2 48 H (35-45) mmHg ABG pO2 79 L (83-108) mmHg ABG HCO3 26 H (21-25) mmol/L ABG Total CO2 28 H (19-24) mmol/L BUN 40 H (9-20) mg/dL Creatinine 3.00 H (0.66-1.25) mg/dL Glucose 276 H (74-99) mg/dL POC Glucose (mg/dL) 329 H (75-99) mg/dL AST 16 L (17-59) U/L Total Protein 5.3 L (6.3-8.2) g/dL Albumin 2.5 L (3.5-5.0) g/dL 08/10/21 08/10/21 08/10/21 Range/Units 08:52 11:16 11:30 WBC 14.5 H (3.8-10.6) k/uL RBC 2.16 L (4.30-5.90) m/uL Hgb 6.5 L* (13.0-17.5) gm/dL Hct 21.7 L (39.0-53.0) % MCV 100.2 H (80.0-100.0) fL MCHC 30.1 L (31.0-37.0) g/dL RDW 16.7 H (11.5-15.5) % Neutrophils # (Manual) (1.3-7.7) k/uL Lymphocytes # (Manual) (1.0-4.8) k/uL Metamyelocytes # (Man) (0) k/uL Myelocytes # (Manual) (0) k/uL ABG pH 7.27 L (7.35-7.45) ABG pCO2 59 H (35-45) mmHg ABG pO2 (83-108) mmHg ABG HCO3 27 H (21-25) mmol/L ABG Total CO2 29 H (19-24) mmol/L BUN (9-20) mg/dL Creatinine (0.66-1.25) mg/dL Glucose (74-99) mg/dL POC Glucose (mg/dL) 240 H (75-99) mg/dL AST (17-59) U/L Total Protein (6.3-8.2) g/dL Albumin (3.5-5.0) g/dL Microbiology - Last 24 Hours (Table) 08/09/21 09:20 Blood Culture - Preliminary Blood No Growth after 24 hours 08/09/21 20:30 Gram Stain - Preliminary Sputum Sputum Culture - Preliminary Assessment and Plan Assessment: 1. Acute kidney injury most likely ATN, currently nonoliguric. However given the significantly elevated BUN/creatinine creatinine and volume overload with hyperkalemia, started on hemodialysis on 07/27/2021. No obstruction on ultrasound. UA shows trace protein and moderate blood. Serologies ordered to rule out underlying GN. Mostly all workup negative except for slightly decreased C3 levels. Not a candidate for kidney biopsy. 2. Chronic kidney disease NKF stage IIIB secondary to nephrosclerosis with previous creatinine as low as 1.4 in May 2021 but most recently staying as high as 3.1-3.0 on 07/07/2021 with episodes of acute kidney injury during his hospitalizations for CHF and pneumonia. 3. CHF exacerbation, diastolic 4. Volume overload, improving with dialysis. 5. Hyperkalemia associated with acute kidney injury, no urine retention noted, improved post dialysis 6. Acute hypercapnic respiratory failure, status post extubation. Being tr eated for pneumonia. Also component of volume overload 7. Paroxysmal A. fib with controlled ventricular response status post pacemaker Plan: Hemodialysis in a.m. Goal UF about 2-2.5 L as tolerated
[2021-08-10 14:29] LABS: Glucose,Whole Blood 177 mg/dL (75-99)
[2021-08-10] MEDS: DEXMEDETOMIDINE/0.9% NACL(PMX) 400 MCG in EMPTY BAG 1 BAG IV SCH (14:32)
[2021-08-10] MEDS: allopurinoL 100 MG TAB PO SCH (14:33)
[2021-08-10 15:49] LABS: INR 1.1 (<1.2); Prothrombin Time 11.5 sec (9.0-12.0)
--- NOTE | 2021-08-10 18:51 | NM ---
EXAMINATION TYPE: NM GI bleeding DATE OF EXAM: 08/10/2021 HISTORY: Blood loss of uncertain etiology. COMPARISON: CT abdomen and pelvis 2016 Following administration of 3 ml UltraTag 20.0 mCi Tc 99m Sodium Pertechnete. Immediate images post i njection. FINDINGS: Normal tracer activity is seen in the blood pool of the abdominal aorta, common iliac arteries, and f emoral arteries on dynamic images. No abnormal tracer uptake is present outside the blood pool that p ersists and follows bowel loop that would be consistent with an active GI bleed. IMPRESSION: Negative examination. No evidence of active gastrointestinal bleeding during the initial 1 hr observa tion period.
[2021-08-10 19:19] LABS: Anisocytosis Slight; HCT 22.8 % (39.0-53.0); Hypochromasia Marked; MCH 29.7 pg (25.0-35.0); MCHC 30.9 g/dL (31.0-37.0); MCV 96.2 fL (80.0-100.0); Macrocytosis Slight; Mean Platelet Volume 8.6; Platelet Count 406 k/uL (150-450); Poikilocytosis Marked; RBC 2.37 m/uL (4.30-5.90); WBC 29.4 k/uL (3.8-10.6)
[2021-08-10 19:31] LABS: Glucose,Whole Blood 247 mg/dL (75-99)
[2021-08-10] MEDS: LACTATED RINGERS 1,000 ML IV SCH (20:45)
[2021-08-10] MEDS: methylPREDNISolone SOD SUCCI 40 MG/ML 1 ML VIAL IV SCH (20:45)
[2021-08-11 00:15] LABS: Glucose,Whole Blood 181 mg/dL (75-99)
[2021-08-11] MEDS: PIPERACILLIN-TAZOBACTAM 3.375 GM in SODIUM CHLORIDE 0.9% 100 ML IVPB SCH ×3 (00:57→16:07)
[2021-08-11] MEDS: INSULIN ASPART (NovoLOG) 100 UNIT/ML VIAL SQ SCH ×4 (00:57→18:15)
[2021-08-11] MEDS: HYDROmorphone 1 MG/ML 1 ML SYRINGE IVP PRN ×6 (01:04→20:36)
[2021-08-11] MEDS: IPRATROPIUM-ALBUTEROL 3 ML NEB INHALATION SCH ×6 (04:28→23:34)
[2021-08-11] MEDS: LEVOTHYROXINE 25 MCG TAB PO SCH ×2 (05:56→08:30)
[2021-08-11 06:47] LABS: Glucose,Whole Blood 187 mg/dL (75-99)
[2021-08-11] MEDS ORDERED: INSULIN DETEMIR (LEVEMIR) 100 UNIT/ML SYR SQ SCH (07:00)
[2021-08-11 07:48] LABS: Anisocytosis Slight; HCT 25.3 % (39.0-53.0); HGB 8.2 gm/dL (13.0-17.5); Hypochromasia Marked; MCH 30.1 pg (25.0-35.0); MCHC 32.2 g/dL (31.0-37.0); MCV 93.3 fL (80.0-100.0); Mean Platelet Volume 8.9; Platelet Count 272 k/uL (150-450); Poikilocytosis Marked; RBC 2.71 m/uL (4.30-5.90); RDW 17.8 % (11.5-15.5); WBC 21.3 k/uL (3.8-10.6)
[2021-08-11] MEDS: DEXMEDETOMIDINE/0.9% NACL(PMX) 400 MCG in EMPTY BAG 1 BAG IV SCH (08:01)
[2021-08-11] MEDS: CHOLECALCIFEROL 25 MCG (1000 IU) TABLET PO SCH (08:01)
[2021-08-11] MEDS: ASCORBIC ACID 500 MG TAB PO SCH ×2 (08:01→20:32)
[2021-08-11] MEDS: CHLORHEXIDINE GLUCONATE 15 ML CUP MUCOUS MEM SCH (08:01)
[2021-08-11 08:03] LABS: Calcium 8.7 mg/dL (8.4-10.2); Potassium 4.9 mmol/L (3.5-5.1)
[2021-08-11] MEDS: FORMOTEROL FUMARATE 20 MCG/2 ML NEBU INHALATION SCH ×2 (08:05→19:46)
[2021-08-11] MEDS: BUDESONIDE 1 MG/2 ML NEBU INHALATION SCH ×2 (08:05→19:46)
[2021-08-11] MEDS: methylPREDNISolone SOD SUCCI 40 MG/ML 1 ML VIAL IV SCH (08:21)
[2021-08-11] MEDS: PANTOPRAZOLE 40 MG/10 ML VIAL IV SCH (08:21)
[2021-08-11] MEDS: METOPROLOL TARTRATE 25 MG TAB PO SCH ×3 (08:30→20:31)
[2021-08-11 09:55] LABS: Vancomycin,Random 23.4 ug/mL
--- NOTE | 2021-08-11 11:12 | P.PN ---
Subjective Patient is seen for follow-up for acute kidney injury and top of chronic kidney disease Patient has underlying chronic kidney disease stage IV with recent worsening of his renal function since May 2021. Creatinine increased from 1.4 on 05/24/[address] up to 3.1 on 07/05/2021. Patient had acute kidney injury during his hospitalization last month and serum creatinine on discharge was 3.0. Acute kidney injury was mostly cardiorenal. Patient was diuresed and discharged on torsemide. He was admitted to the hospital now with a creatinine of around 10.2. Patient was started on dialysis on 07/27/2021. Patient has been treated for volume overload. This morning patient is seen on dialysis. He is awake. Alert and oriented 3. Tolerating his treatment well. Systolic blood pressure slightly on the lower side. Goal ultrafiltration has been decreased. Poor urine output Objective - Vital Signs Vital signs: Vital Signs Temp 97.9 F 08/11/21 08:00 Pulse 97 08/11/21 11:00 Resp 15 08/11/21 11:00 BP 90/58 08/11/21 11:00 Pulse Ox 96 08/11/21 11:00 Intake & Output 08/10/21 08/11/21 08/11/21 18:59 06:59 18:59 Intake Total 023.141 3055.617 200 Output Total 675 0 0 Balance 844.942 5217.617 200 Weight 94.3 kg Intake: IV 490 440 200 0.9 sodium chloride 100 240 60 carriers Lactated Ringers 1,000 ml 40 40 @ 20 mls/hr IV .Q24H [facility] Rx#:[id number] Piperacillin-Tazobactam 3 100 200 100 .375 gm In Sodium Chloride 0.9% 100 ml @ 25 mls/hr IVPB Q8HR [facility] Rx# :[id number] Vancomycin 1,500 mg In 250 Sodium Chloride 0.9% 250 ml @ 125 mls/hr IVPB ONCE ONE Rx#:[id number] Intake, IV Titration 45.788 119.617 Amount Dexmedetomidine/0.9% NaCl 35.506 (Pmx) 400 mcg In Empty Bag 1 bag @ 0.2 MCG/KG/HR 4.75 mls/hr IV .Q21H4M [facility] Rx#:[id number] Norepinephrine 8 mg In 10.282 119.617 Sodium Chloride 0.9% 250 ml @ 0.05 MCG/KG/MIN 9. 348 mls/hr IV .Q24H [facility] Rx#:[id number] Oral 0 Tube Feeding 33 Blood Product 288 845 Rc Pheresis 2 As3 Unit 0 290 [id number] Rc Pheresis As-3 Unit 277 [id number] Rc Pheresis As-3 Unit 278 [id number] Rc Pheresis As-3 Unit 288 [id number] Other 83 Output: Urine 25 0 0 Stool 650 Other: Voiding Method Indwelling Catheter Indwelling Catheter Indwelling Catheter # Bowel Movements 1 1 1 ABP, PAP, CO, CI - Last Documented Arterial Blood Pressure 103/50 - Exam Patient is extubated, awake, no acute distress Bilateral breath sounds are heard Abdomen is soft nontender Examination lower extremities shows chronic skin changes. Improved edema. 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 - Labs CBC & Chem 7: 08/11/21 07:21 08/11/21 07:21 Labs: Abnormal Lab Results - Last 24 Hours (Table) 08/02/21 08/10/21 08/10/21 Range/Units 11:00 11:16 11:30 WBC 14.5 H (3.8-10.6) k/uL RBC 2.16 L (4.30-5.90) m/uL Hgb 6.5 L* (13.0-17.5) gm/dL Hct 21.7 L (39.0-53.0) % MCV 100.2 H (80.0-100.0) fL MCHC 30.1 L (31.0-37.0) g/dL RDW 16.7 H (11.5-15.5) % BUN (9-20) mg/dL Creatinine (0.66-1.25) mg/dL Glucose (74-99) mg/dL POC Glucose (mg/dL) 240 H (75-99) mg/dL Crossmatch See Detail 08/10/21 08/10/21 08/10/21 Range/Units 12:50 14:27 19:04 WBC 29.4 H (3.8-10.6) k/uL RBC 2.37 L (4.30-5.90) m/uL Hgb 7.0 L (13.0-17.5) gm/dL Hct 22.8 L (39.0-53.0) % MCV (80.0-100.0) fL MCHC 30.9 L (31.0-37.0) g/dL RDW 18.0 H (11.5-15.5) % BUN (9-20) mg/dL Creatinine (0.66-1.25) mg/dL Glucose (74-99) mg/dL POC Glucose (mg/dL) 177 H (75-99) mg/dL Crossmatch See Detail 08/10/21 08/11/21 08/11/21 Range/Units 19:30 00:13 06:45 WBC (3.8-10.6) k/uL RBC (4.30-5.90) m/uL Hgb (13.0-17.5) gm/dL Hct (39.0-53.0) % MCV (80.0-100.0) fL MCHC (31.0-37.0) g/dL RDW (11.5-15.5) % BUN (9-20) mg/dL Creatinine (0.66-1.25) mg/dL Glucose (74-99) mg/dL POC Glucose (mg/dL) 247 H 181 H 187 H (75-99) mg/dL Crossmatch 08/11/21 08/11/21 Range/Units 07:21 07:21 WBC 21.3 H (3.8-10.6) k/uL RBC 2.71 L (4.30-5.90) m/uL Hgb 8.2 L (13.0-17.5) gm/dL Hct 25.3 L (39.0-53.0) % MCV (80.0-100.0) fL MCHC (31.0-37.0) g/dL RDW 17.8 H (11.5-15.5) % BUN 63 H (9-20) mg/dL Creatinine 4.18 H (0.66-1.25) mg/dL Glucose 163 H (74-99) mg/dL POC Glucose (mg/dL) (75-99) mg/dL Crossmatch Microbiology - Last 24 Hours (Table) 08/09/21 09:20 Blood Culture - Preliminary Blood No Growth after 24 hours 08/09/21 20:30 Gram Stain - Preliminary Sputum Sputum Culture - Preliminary Assessment and Plan Assessment: 1. Acute kidney injury most likely ATN, currently nonoliguric. However given the significantly elevated BUN/creatinine creatinine and volume overload with hyperkalemia, started on hemodialysis on 07/27/2021. No obstruction on ultrasound. UA shows trace protein and moderate blood. Serologies ordered to rule out underlying GN. Mostly all workup negative except for slightly decreased C3 levels. Not a candidate for kidney biopsy. 2. Chronic kidney disease NKF stage IIIB secondary to nephrosclerosis with previous creatinine as low as 1.4 in May 2021 but most recently staying as high as 3.1-3.0 on 07/07/2021 with episodes of acute kidney injury during his hospitalizations for CHF and pneumonia. 3. CHF exacerbation, diastolic 4. Volume overload, improving with dialysis. 5. Hyperkalemia associated with acute kidney injury, no urine retention noted, improved post dialysis 6. Acute hypercapnic respiratory failure, status post extubation. Being treated for pneumonia. Also component of volume overload 7. Paroxysmal A. fib with controlled ventricular response status post pacemaker Plan: Hemodialysis today. Goal UF about 1-2 L as tolerated. Volume status has improved significantly. Encourage increased oral intake.
--- NOTE | 2021-08-11 11:19 | P.PN ---
Subjective Progress Note Date: 08/11/21 On today's evaluation of 08/09/2021, see the patient for a follow-up. The patient remains intubated on a mechanical ventilator and the patient remains sedated. This morning, the patient is on propofol at 45 [place] respiratory per minute. The patient is an assist-control mode of mechanical ventilation at the rate of 26, tidal volume of 450, FiO2 of 30% with a PEEP of 5. The patient's blood gases from today shows a pH of 7.31 with a pCO2 of 51 and pO2 of 100. The chest x-ray was showing a left-sided consolidation which has recovered and the chest x-ray from today showing cardiomegaly and bilateral small pleural effusions. ET tube is in a good location. The patient's cardiac rhythm is sinus and the patient is on low-dose norepinephrine infusion running at 0.05 micrograms per kilogram per minute for hemodynamic support. The patient currently is also undergoing hemodialysis. The patient has a right-sided dialysis catheter in place. Noted the patient's last hemodialysis session was on 08/07/2021 and a total of 2 L of fluid was removed. He does have some liquidy stool and the patient has a fecal management system in place. The patient is receiving enteral feeding for nutritional support and the patient is currently on Nepro at the rate of 33 mL an hour. The patient has a right femoral triple-lumen catheter in place and a temporary dialysis catheter in his right IJ. Earlier this morning, he did spike a temperature. Based on that, cultures were sent including blood and sputum and the patient was covered with accommodation Zosyn and vancomycin. Pending further cultures. At the same time, I instructed the nursing staff to proceed with this point to proceed with a sedation holiday and assess the patient's mental status. On 08/10/2021, the patient is being seen for a follow-up. The patient remains intubated on a mechanical ventilator. On yesterday's evaluation, the patient was gradually taken off the sedation the patient showed adequate mentation. At one point, we thought that his pupils were unequal and based on that a CAT scan of the brain was done that showed no acute abnormalities. After discontinuing the propofol, the patient overnight had to be placed on low-dose Precedex which is currently running at 0.3 mcg/kg per minute. The patient is also off norepinephrine infusion since 9 PM yesterday. This morning, the patient is arousable. He is awake. He is on assist control mode of mechanical ventilation at the rate of 26 with a tidal volume of 450 and the rate of 26 with an FiO2 of 40% and a PEEP of 5. Blood gases showed a pH of 7.34 with a pCO2 of 48 and pO2 of 78 chest x-ray findings are essentially unchanged. The patient is afebrile for now. He did spike a temperature yesterday and the patient was given blood cultures and the patient was given a combination of Zosyn and vancomycin. Currently is afebrile and her most recent temperature is 90.9F. His white cell count is at 10.7 with hemoglobin of 6.9 and the patient's sodium level is at 138 with a potassium of 5 and a BUN of 40 with a creatinine of 3.0. The patient's underwent hemodialysis yesterday and the patient had ultrafiltration. He is on Nepro for enteral feeding and nutritional support at the rate of 20 mL an hour. He has a fecal management system in place and output is minimal at this point in time. Based on all this, the patient was given a sedation holiday. Weaning parameters were checked and the patient is being considered for possible extubation to BiPAP at a later stage and this large dependent on his ability to undergo this point is breathing trial. On 08/11/2021, the patient is being seen for a follow-up. The patient was weaned off the mechanical ventilator and the patient was extubated yesterday without any major difficulties. The patient however started having episodes of GI bleed as of yesterday. The patient had several bouts of lower GI bleed when he was passing abdominal color stool on multiple occasions. The hemoglobin was being monitored very regularly and the patient remained essentially hemodynamically stable. Hemoglobin dropped as low as 6.5. Note that during his ongoing GI bleed, the patient was given a total of 4 units of packed RBC and hemoglobin this morning is up to 8.2. He did have a bloody bowel movement yesterday evening and none since. The patient remains nothing by mouth. The patient remains on IV Protonix. The patient has a normal coagulation profile. He has not taken anticoagulation since the beginning of this current admission. Based on his ongoing bleed, general surgery was consulted and the patient underwent a GI bleeding scan, a red blood cell Scan that showed no evidence of any acute bleeding. Meanwhile, he is awake and alert his communicating. No cervical respiratory distress. No chest pain she is respiratory difficulties. No chest pain. No altered mentation. No fever. The patient remains on Zosyn. The patient was a result of 21 from . Noted the patient developed acute leukocytosis over the past 24 hours and he seems to be improving. The rest of the electrolytes are all within normal limits. BUN is at 63 with a creatinine of 4.8. Vancomycin trough level is 23.4 and patient is currently on vancomycin. The patient is on Levemir insulin and he is receiving 30 units daily along with ascites care coverage. Blood sugars under adequate control for now. No focal neurological deficits. He is weak and debilitated. He also has a stage II ulcer over the left foot Objective - Vital Signs Vital signs: Vital Signs Temp 97.9 F 08/11/21 08:00 Pulse 97 08/11/21 11:00 Resp 15 08/11/21 11:00 BP 90/58 08/11/21 11:00 Pulse Ox 96 08/11/21 11:00 Intake & Output 08/10/21 08/11/21 08/11/21 18:59 06:59 18:59 Intake Total 459.715 9958.617 200 Output Total 675 0 0 Balance 905.058 8841.617 200 Weight 94.3 kg Intake: IV 490 440 200 0.9 sodium chloride 100 240 60 carriers Lactated Ringers 1,000 ml 40 40 @ 20 mls/hr IV .Q24H [facility] Rx#:[id number] Piperacillin-Tazobactam 3 100 200 100 .375 gm In Sodium Chloride 0.9% 100 ml @ 25 mls/hr IVPB Q8HR [facility] Rx# :[id number] Vancomycin 1,500 mg In 250 Sodium Chloride 0.9% 250 ml @ 125 mls/hr IVPB ONCE ONE Rx#:[id number] Intake, IV Titration 45.788 119.617 Amount Dexmedetomidine/0.9% NaCl 35.506 (Pmx) 400 mcg In Empty Bag 1 bag @ 0.2 MCG/KG/HR 4.75 mls/hr IV .Q21H4M [facility] Rx#:[id number] Norepinephrine 8 mg In 10.282 119.617 Sodium Chloride 0.9% 250 ml @ 0.05 MCG/KG/MIN 9. 348 mls/hr IV .Q24H [facility] Rx#:[id number] Oral 0 Tube Feeding 33 Blood Product 288 845 Rc Pheresis 2 As3 Unit 0 290 [id number] Rc Pheresis As-3 Unit 277 [id number] Rc Pheresis As-3 Unit 278 [id number] Rc Pheresis As-3 Unit 288 [id number] Other 83 Output: Urine 25 0 0 Stool 650 Other: Voiding Method Indwelling Catheter Indwelling Catheter Indwelling Catheter # Bowel Movements 1 1 1 ABP, PAP, CO, CI - Last Documented Arterial Blood Pressure 103/50 - Exam No acute distress, . The patient is extubated and the patient is currently on 4 L of oxygen by nasal cannula. No signs of any significant respiratory distress at this point in time and is not using excessive muscle breathing. Head exam was generally normal. There was no scleral icterus or corneal arcus. Mucous membranes were moist. HEENT examination is grossly unremarkable. The patient has a right IJ temporary hemodialysis catheter in place and the exit site is dry clean and intact. Orogastric and orotracheal tube are both in place. Neck supple. Full range of motion. No adenopathy thyromegaly or neck vein di stention. Cardiovascular examination reveals regular rhythm rate. S1-S2 normal. No S3 or S4. No discernible murmur noted. Lungs reveal coarse bilateral rhonchi, and bilateral crackles. No wheezes. Breath sounds equal bilaterally. Abdominal exam revealed normal bowel sounds. The abdomen was soft, non-tender, and without masses, organomegaly, or appreciable enlargement of the abdominal ao rta. Extremities are intact. No cyanosis clubbing or edema. A stage 2 to 3 cm ulcer over the left foot. SkinExamination of the skin revealed no evidence of significant rashes, suspicious appearing nevi or other concerning lesions. Neurologic the patient has global generalized weakness. Is moving all 4 extremities. Motor function is weak in all 4 extremities and symmetrical. No focal neurological deficit. Awake and alert and following commands and answering questions appropriately. - Labs CBC & Chem 7: 08/11/21 07:21 08/11/21 07:21 Labs: Abnormal Lab Results - Last 24 Hours (Table) 08/02/21 08/10/21 08/10/21 Range/Units 11:00 11:16 11:30 WBC 14.5 H (3.8-10.6) k/uL RBC 2.16 L (4.30-5.90) m/uL Hgb 6.5 L* (13.0-17.5) gm/dL Hct 21.7 L (39.0-53.0) % MCV 100.2 H (80.0-100.0) fL MCHC 30.1 L (31.0-37.0) g/dL RDW 16.7 H (11.5-15.5) % BUN (9-20) mg/dL Creatinine (0.66-1.25) mg/dL Glucose (74-99) mg/dL POC Glucose (mg/dL) 240 H (75-99) mg/dL Crossmatch See Detail 08/10/21 08/10/21 08/10/21 Range/Units 12:50 14:27 19:04 WBC 29.4 H (3.8-10.6) k/uL RBC 2.37 L (4.30-5.90) m/uL Hgb 7.0 L (13.0-17.5) gm/dL Hct 22.8 L (39.0-53.0) % MCV (80.0-100.0) fL MCHC 30.9 L (31.0-37.0) g/dL RDW 18.0 H (11.5-15.5) % BUN (9-20) mg/dL Creatinine (0.66-1.25) mg/dL Glucose (74-99) mg/dL POC Glucose (mg/dL) 177 H (75-99) mg/dL Crossmatch See Detail 08/10/21 08/11/21 08/11/21 Range/Units 19:30 00:13 06:45 WBC (3.8-10.6) k/uL RBC (4.30-5.90) m/uL Hgb (13.0-17.5) gm/dL Hct (39.0-53.0) % MCV (80.0-100.0) fL MCHC (31.0-37.0) g/dL RDW (11.5-15.5) % BUN (9-20) mg/dL Creatinine (0.66-1.25) mg/dL Glucose (74-99) mg/dL POC Glucose (mg/dL) 247 H 181 H 187 H (75-99) mg/dL Crossmatch 08/11/21 08/11/21 Range/Units 07:21 07:21 WBC 21.3 H (3.8-10.6) k/uL RBC 2.71 L (4.30-5.90) m/uL Hgb 8.2 L (13.0-17.5) gm/dL Hct 25.3 L (39.0-53.0) % MCV (80.0-100.0) fL MCHC (31.0-37.0) g/dL RDW 17.8 H (11.5-15.5) % BUN 63 H (9-20) mg/dL Creatinine 4.18 H (0.66-1.25) mg/dL Glucose 163 H (74-99) mg/dL POC Glucose (mg/dL) (75-99) mg/dL Crossmatch Microbiology - Last 24 Hours (Table) 08/09/21 09:20 Blood Culture - Preliminary Blood No Growth after 24 hours 08/09/21 20:30 Gram Stain - Preliminary Sputum Sputum Culture - Preliminary Assessment and Plan Plan: Acute hypoxemic respiratory failure, requiring intubation and mechanical ventilation on 08/04/2021. The patient is a hypoxic respiratory failure is obviously multifactorial. The patient has advanced COPD. There was a component of fluid overload and the patient have a left lung consolidation is noted on the chest x-ray and a CAT scan of the chest. The patient is currently covered with broad-spectrum antibiotics. For now, the patient remains on IV Zosyn. The patient was weaned off the mechanical ventilator and the patient was extubated and the patient is currently on 4 L of O2 by nasal cannula. He was provided this is spirometer. Chronic kidney disease, requiring hemodialysis. Last hemodialysis was on 08/07/2021 and the patient had a total of 2 L of ultrafiltration performed. Another session of hemodialysis was done on 08/09/2021. The patient is to undergo another session of hemodialysis today on 08/11/2021. Acute lower GI bleeding. The patient is currently on no anticoagulants. The patient received a total of 4 units of packed RBC and the most recent hemoglobin is at 8.2. RBC tagged scan came back negative and the patient is hemodynamically stable at this point in time. History of chronic atrial fibrillation. Patient currently is off anticoagulation. Anemia, chronic, with acute drop in hemoglobin as low as 6.5 units of lower GI bleeding. History of CHF. History of COPD, advanced and the patient is oxygen dependent on outpatient basis History of diabetes mellitus. History of DVT. History of gastroesophageal reflux disease. History of hyperlipidemia. History of hypertension. History of sleep apnea syndrome. History of pneumonia. Chronic hypoxemic respiratory failure, secondary to COPD New-onset fever, currently under investigation, patient is currently on a mission Zosyn and vancomycin and the patient's cultures all negative. Currently afebrile hemodynamically stable off pressors. The patient is currently on vancomycin. The patient is afebrile. The patient remains on IV Zosyn. Plan The patient is currently extubated on 4 L O2 nasal cannula Provide the patient incentive spirometer Monitor the GI bleeding RBC CAT scan is negative Patient has been transfused with a total of 4 units of packed RBCs Keep the patient. For now Continue IV Protonix Hemodialysis today IV Solu Medrol has been discontinued yesterday Continue IV Zosyn Continue Levemir insulin for blood sugar control Monitor hemoglobin General surgeries on the case We'll continue to follow make further recommendations based on his progress.
[2021-08-11 11:35] LABS: Glucose,Whole Blood 136 mg/dL (75-99)
[2021-08-11 12:41] LABS: Anisocytosis Slight; HCT 27.4 % (39.0-53.0); HGB 8.9 gm/dL (13.0-17.5); Hypochromasia Moderate; MCH 30.1 pg (25.0-35.0); MCHC 32.5 g/dL (31.0-37.0); MCV 92.6 fL (80.0-100.0); Platelet Count 297 k/uL (150-450); Poikilocytosis Marked; RBC 2.96 m/uL (4.30-5.90); RDW 17.8 % (11.5-15.5)
--- NOTE | 2021-08-11 14:02 | P.PN ---
Subjective Progress Note Date: 08/11/21 Patient is a 65-year-old male with multiple medical problems multiple comorbidities was recently discharged from the hospital after he was treated for volume or note from chronic gastritis function and the cardiorenal syndrome. Patient was discharged to rehab facility 2 days into rehab related patient patient went home and started having shortness of breath volume overload diffuse anasarca and pedal edema. Patient is found to be in significant volume or lower chest x-ray showed bilateral pleural effusion although this appears to have improved compared to last admission when he had thoracentesis. Patient has significant lab abnormalities including creatinine going up to around 10 potassium 6.2 very low magnesium of 0.9 nephrology was consulted. As per nephrology patient will lead hemodialysis, consult to vascular surgery was placed for hemodialysis catheter placement and patient will be subsequently started on hemodialysis. Patient does have advanced COPD uses about 5 L of oxygen. 07/28/2021 Patient is seen and evaluated and follow-up has received hemodialysis catheter and is receiving hemodialysis today. Kidney functions improving and patient reports to producing more urine. Current creatinine is 7.6 today potassium is 5.5 and sodium is 139. Blood sugars have been more manageable and will continue current regimen. Patient continues on 5 L via nasal cannula which is chronic for him. Nephrology following closely and will continue with dialysis daily at this time. Patient is also maintained on IV Lasix and will continue. Patient denies chest pain, shortness of breath, or palpitations. Patient is afebrile. No nausea or vomiting noted and patient is tolerating diet. subjective: resume the care of the pt today 07/29/2021 This is a pleasant 65 years old male with stage IV chronic kidney disease presents with fatigue and worsening kidney function requiring hemodialysis which is a started during this admission after a catheter placed in the right groin. He is hemodynamically stable, he is on 5 L per minute of oxygen but saturating 98-99%, we will try to titrate his oxygen down. No much dyspnea or cough and while he is lying flat in bed but he feels very weak all over. His been having recurrent nausea vomiting, mainly worked first of this morning but he is fully awake with no headache. No abdominal pain. He is hemodynamically stable, hemoglobin 7.4 with evidence of chronic anemia, also he is on ferrous sulfate once daily at home. This currently on home dose of liquids 2.5 and IV Lasix 60 mg twice daily. Ultrasound of the abdomen showing no hydronephrosis or nephrolithiasis. And chest x-ray showed small right pleural effusion with atelectasis. Also patient has chronic left leg wound secondary to a fall about 3 months ago. Patient refused to take the dressing off. We consulted once care. Patient is on Zofran already, we added Phenergan. We ordered a KUB. Also ask for PT OT evaluation. WOUND TEAM CONSULT 07/30/2021 Patient awake alert, no much tachypnea but he stayed in bed most of the time, he still at baseline of 4 L/m of oxygen. However patient reports coughing a lot and making a lot of phlegm, he said he has been diagnosed with pneumonia 2 weeks ago. Actually chest x-ray from yesterday showing bilateral infiltrate, I reviewed the chest x-ray by myself and it looks worse compared to admission despite starting him on a new hemodialysis and receiving Lasix for his CHF. Also we checked his pro-calcitonin and it is elevated at 0.5 for which is consistent with infection with this constellation of CHF, chest x-ray findings a nd elevated pro-calcitonin. Most likely and high suspicion for hospital acquired pneumonia and patient is a started on Zosyn last night. We going to repeat chest x-ray tomorrow morning. Bladder scan show minimal urine, Flomax was discontinued. Wound care R following the patient for his left foot wound. 07/31/2021 Patient seen in bed most of the time, physical therapy recommended rehab, I talk ed to him today about this recommendation and he is refusing now. He still on 4 L oxygen nasal cannula which looks like he is this is his baseline however he has coarse crepitation looks like it comes from secretion with decreased air entry on both sides, patient confirms to me he has history of COPD. However I would recommend he follow up with a instructor apparel manufacture as an outpatient. Repeat chest x-ray today showing no worsening infiltrate however it shows Similar multifocal airspace opacities. Correlate for congestive heart failure and/or diffuse airspace disease in the meantime we will keep him on Zosyn and check a pro-calcitonin tomorrow, if improvement we may consider oral antibiotic. However started on Solu-Medrol 60 mg 3 times a day today. He is kept on IV Lasix and hemodialysis I discussed the case with nephrology team and they recommended the permacath prior to discharge, discussed with bed side nurse to inform surgical vascular team. Workup showing anemia of chronic disease and he was started on arenasept by making machine catcher. 08/01/2021 Patient clinically is doing well generally, he is breathing quietly, he is tolerating diet well, no bowel movement today Nephrology team on the case and plan for him to get the permacath by vascular surgery team hopefully tomorrow. Also his evidence of COPD exacerbation which is improving therefore Solu-Medrol our to 40 mg twice a day. Pro-calcitonin still elevated 0.68, currently on Zosyn, sputum cultures pending. However patient only having cough and phlegm which is pending as above. Saturation is 4-5 L/m which is his baseline. Rehab is recommended but patient was reluctant so far. 08/02/2021 Patient is lying in bed most of the time, his breathing is at baseline and is improving with less crepitation but he is coughing a lot . His oxygen requirement at baseline on 4 L/m which is his home dose. his hemoglobin dropped today to 5.7, his workup showing anemia of chronic disease despite being an IV and oral iron, workup showing anemia of chronic disease but cannot rule out GI bleed especially he's on liquids which is on hold today before going for procedure. Therefore we going to consult GI service in any way. Occult blood in his stool test is requested. Patient states he has 3- 4 loose bowel movements, we will check C. diff as well. No abdominal pain or vomiting. Patient is going for permacath placement today and hemodialysis tomorrow, he got hemodialysis this morning. Patient adamantly refusing to go to rehab despite recommendation for medical and nephrology team on several occasions. Patient and make his own decisions. 08/03/2021 Patient now wake and breathing comfortably at baseline, he is less coughing compared to yesterday after started on Robitussin D but today he wants to, more so I can bring stuff up out of his chest, therefore we change his Robitussin into when necessary dosing and he was informed. No chest pain or other symptoms. However there was some concerns of pulmonary congestion there for his colonoscopy/EGD for tomorrow is rescheduled until . He is placed on liquid diet therefore we lowered his Levemir form 25 units which is home dose down to 10 units tonight. His chest x-ray looks the same Reticulocyte count is 1.5 but he got one unit of transfusion. Currently hemo globin is holding at 8.1, glucose control, magnesium normal at 2.2, sodium at 1:30 and he is saturating at 4-5 L/m which is home dose. Diarrhea stopped, occult blood in stool is negative and C. diff negative. However still patient has possible GI bleed given his severe anemia while on Eliquis Repeat pro-calcitonin is pending, he remains on Zosyn He is complaining of from left wrist pain, deformity and decreased defense analyst secondary to fracture happened in May, he supposed to follow up with his o rthopedic doctor Wilmer however he was noncompliant, repeat left wrist x-ray looks the same, orthopedic input is appreciated they recommended no surgical intervention but follow-up outpatient while he is in splint Eliquis remains on hold after EGD/colonoscopy for sever anemia and possible GI bleed 08/04/2021 Patient today was in respiratory distress mattress and foundation sewer that A team was called for him twice, eventually patient has to be intubated and sent to the ICU and there is evidence of CO2 retention with improvement on ventilatory support. Repeat CT of the chest today showed no evidence of pulmonary embolism and there is extensive bilateral infiltrates concerning for aspiration. Currently he is saturating 98% on FiO2 of 50% and respiratory rate of 26. Labs reviewed and showing WBC of 14.6, creatinine down to 1.6, hemoglobin 10, potassium after placement 3.4. Patient labs reviewed remains on Zosyn, Pro-calcitonin is improving down to 0.3 prior to this episode of aspiration. Patient remains afebrile for now. His Eliquis remains on hold in view of his history of A. fib due for suspected GI bleed. Patient remains on Zosyn, Protonix and insulin sliding scale. Also patient placed on Lasix 80 mg daily and receives an extra dose this morning. While insulin 10 units is held 08/05/2021 Patient remains in the ICU sedated and intubated. He is off Levophed today. Metoprolol was held yesterday and his blood pressure improved, and this morning 87/54 and his rate was sinus rhythm at 93, no evidence of A. fib and RVR given his history of similar problem. Hemoglobin 7.9, which is known he is anemic, his Eliquis is still on hold for possible GI bleed with planned to undergo EGD/colonoscopy at certain point per GI team her on the case. Creatinine went up to 0.8. He is undergoing hemodialysis. Chest x-ray showed some improvement by a radiologist Remains on IV Zosyn for his recurrent aspiration pneumonia. Also Lasix was held. His prognosis remains guarded 08/07/2021 Patient is seen and evaluated and follow-up continues to be in the ICU on mechanical vent. Patient currently receiving hemodialysis and is currently off Levophed although being used as needed for blood pressures that are on the lower side. Patient continues on mechanical ventilation with an FiO2 of 40% and PEEP is 5 with multiple medical consultations are following. Hemoglobin is stable at 7.7 with no active bleeding noted. Patient also continues on IV Zosyn. Sputum cultures thus far are negative. Pulmonary following and highly suspicious for aspiration pneumonia. Recommend continue with breathing inhalational treatments and close monitoring. Chest x-ray today shows left upper lung edema and/or infiltrate and bibasilar atelectasis and/or infiltrates on the background with chronic changes and mild cardiomegaly redemonstrated with no significant change from one day previously. 08/08/2021 Patient continues to be monitored closely in the ICU on mechanical ventilation and currently intubated. FiO2 is 40% with PEEP of 5 . Sedation holidays being conducted on a daily basis to wean and possible extubate. Patient not quite ready for extubation at this time. FiO2 will be decreased to 30%. Chest x-ray today shows bilateral upper lung edema and/or infiltrates and bibasilar atelect asis and/or infiltrate some background chronic changes with mild cardiomegaly redemonstrated with no significant change from yesterday. Hemoglobin is stable at 7.4, WBC 13.2, kidney functions improving and creatinine is currently 2.33 and is continued on dialysis and expected to receive a session of hemodialysis in the morning. Repeat a.m. labs ordered and will continue to monitor closely. 08/09/2021 This 65-year-old with chronic respiratory failure uses her on 5 L of oxygen at home as her multiple medical problems including congestive heart failure diastolic dysfunction cardiac renal syndrome on hemodialysis. Patient has multiple other medical problems his prognosis is extremely poor patient is extubated today patient is intubated and multifactorial respiratory failure including COPD exacerbation pulmonary edema and pneumonia in the left lung. Patient is quite a bit tired patient has a fecal management system as well as a Werner catheter patient is not urinating much fecal management system did show blood because of which I'm consulting general surgery, patient's hemoglobin did drop will transfuse him 1 unit of PRBC patient last hemodialysis was yesterday patient probably will need to undergo hemodialysis today patient is quite tired and weak unable to even cough. She is presently on Zosyn and vancomycin 08/10/2021 Patient is seen and evaluated in follow-up this morning continues to be in the ICU closely monitored. Patient is status post extubation yesterday and curre ntly maintained on 4 L. Patient receiving hemodialysis today with nephrology following closely. Pulmonary parts person also following along with general surgery and patient underwent bowel capsule study to assess for bleeding which was negative on the one-hour marker. Patient has been transitioned off of steroids and blood sugars improving and will decrease the dose of long-acting and continue sliding scale and monitor Accu-Cheks before meals and at bedtime closely. Sputum cultures preliminary positive and awaiting finalized cultures and will continue with IV antibiotics at this time. WBC is elevated at 29.0 and hemoglobin is stable at 8.9. Patient remains somewhat hypotensive during di alysis and is currently off pressors. Review of systems: Constitutional: reports of fatigue, no reports of fever, or chills Cardiovascular: No reports of chest pain or palpitations Respiratory: No reports of worsening shortness of breath or cough GI: No reports of nausea, vomiting, or diarrhea : No reports of dysuria or retention Neurovascular: reports of extreme weakness All medications have been reviewed Active Medications Albuterol/Ipratropium (Ipratropium-Albuterol 3 Ml Neb) 3 ml INHALATION RT-Q4H PRN PRN Reason: Shortness Of Breath Last Admin: 08/04/21 00:33 Dose: 3 ml Documented by: Albuterol/Ipratropium (Ipratropium-Albuterol 3 Ml Neb) 3 ml INHALATION RT-Q4H [facility] Last Admin: 08/11/21 11:31 Dose: 3 ml Documented by: Allopurinol (Allopurinol 100 Mg Tab) 200 mg PO DAILY@1400 [facility] Last Admin: 08/10/21 14:33 Dose: Not Given Documented by: Artificial Tears (Artificial Tears-Hypromellose Drops 15 Ml Btl) 2 drops BOTH EYES TID PRN PRN Reason: Dry Eye(s) Ascorbic Acid (Ascorbic Acid 500 Mg Tab) 1,000 mg PO BID [facility] Last Admin: 08/11/21 08:01 Dose: Not Given Documented by: Budesonide (Budesonide 1 Mg/2 Ml Nebu) 1 mg INHALATION RT-BID [facility] Last Admin: 08/11/21 08:05 Dose: 1 mg Documented by: Chlorhexidine Gluconate (Chlorhexidine Gluconate 15 Ml Cup) 15 ml MUCOUS MEM BID [facility] Last Admin: 08/11/21 08:01 Dose: Not Given Documented by: Cholecalciferol (Cholecalciferol 25 Mcg (1000 Iu) Tablet) 25 mcg PO DAILY [facility] Last Admin: 08/11/21 08:01 Dose: Not Given Documented by: Darbepoetin Hubert (Darbepoetin Hubert 60 Mcg/0.3 Ml Syringe) 60 mcg SQ Q7D [facility] Last Admin: 08/08/21 20:58 Dose: 60 mcg Documented by: Formoterol Fumarate (Formoterol Fumarate 20 Mcg/2 Ml Nebu) 20 mcg INHALATION RT-BID [facility] Last Admin: 08/11/21 08:05 Dose: 20 mcg Documented by: Hydromorphone HCl (Hydromorphone 1 Mg/Ml 1 Ml Syringe) 1 mg IVP Q2HR PRN PRN Reason: Pain Last Admin: 08/11/21 13:24 Dose: 1 mg Documented by: Piperacillin Sod/Tazobactam (Sod 3.375 gm/ Sodium Chloride) 100 mls @ 25 mls/hr IVPB Q8HR [facility]; Protocol Last Admin: 08/11/21 08:20 Dose: 25 mls/hr Documented by: Norepinephrine Bitartrate 8 mg (/ Sodium Chloride) 258 mls @ 9.348 mls/hr IV .Q24H [facility]; Protocol Last Titration: 08/11/21 06:58 Dose: 0 mcg/kg/min, 0 mls/hr Documented by: Lactated Ringer's (Lactated Ringers) 1,000 mls @ 20 mls/hr IV .Q24H [facility] Last Admin: 08/10/21 20:45 Dose: 20 mls/hr Documented by: Insulin Aspart (Insulin Aspart (Novolog) 100 Unit/Ml Vial) 0 unit SQ Q6H [facility]; Protocol Last Admin: 08/11/21 11:54 Dose: Not Given Documented by: Insulin Detemir (Insulin Detemir (Levemir) 100 Unit/Ml Syr) 30 unit SQ DAILY@0700 [facility] Last Admin: 08/11/21 06:54 Dose: 30 unit Documented by: Levothyroxine Sodium (Levothyroxine 25 Mcg Tab) 25 mcg PO DAILY@0630 [facility] Last Admin: 08/11/21 08:30 Dose: 25 mcg Documented by: Metoprolol Tartrate (Metoprolol Tartrate 25 Mg Tab) 25 mg PO BID [facility] Last Admin: 08/11/21 09:01 Dose: Not Given Documented by: Miscellaneous Information (Magnesium Replacement Protocol 1 Each [facility] 1 each MISCELLANE DAILY PRN; Protocol PRN Reason: Per Protocol Miscellaneous Information (Vancomycin Iv Per Pharmacy 1 Each [facility] [place] 1 each MISCELLANE DIRECTED PRN; Protocol PRN Reason: Per Protocol Naloxone HCl (Naloxone 0.4 Mg/Ml 1 Ml Vial) 0.2 mg IV Q2M PRN PRN Reason: Opioid Reversal Ondansetron HCl (Ondansetron 4 Mg Tab) 4 mg PO Q8H PRN PRN Reason: Nausea And Vomiting Ondansetron HCl (Ondansetron 4 Mg/2 Ml Vial) 4 mg IVP Q6HR PRN PRN Reason: Nausea And Vomiting Last Admin: 08/03/21 10:03 Dose: 4 mg Documented by: Pantoprazole Sodium (Pantoprazole 40 Mg/10 Ml Vial) 40 mg IV DAILY [facility] Last Admin: 08/11/21 08:21 Dose: 40 mg Documented by: Physical exam: GENERAL: The patient is alert and oriented x3, quite tired sick looking H EENT: Pupils are round and equally reacting to light. EOMI. No scleral icterus. No conjunctival pallor. Normocephalic, atraumatic. No pharyngeal erythema. No thyromegaly. CARDIOVASCULAR: S1 and S2 present. No murmurs, rubs, or gallops. PULMONARY: basilar crackles and rhonchi ABDOMEN: Soft, nontender, nondistended, normoactive bowel sounds. No palpable organomegaly. Fecal management system and a Werner catheter MUSCULOSKELETAL: No joint swelling or deformity. EXTREMITIES: No cyanosis, clubbing, or pedal edema. NEUROLOGICAL: muscle atrophy of bilateral lower extremities. SKIN: No rashes. Assessment: -Acute multifactorial respiratory failure requiring intubation patient is presently extubated and is extubated on 08/10/2021 patient has pneumonia hospital-acquired is on Zosyn and vancomycin does have congestive heart failure hemodialysis dependent cardiorenal syndrome and COPD exacerbation - Bilateral hospital acquired pneumonia is highly suspected - Acute kidney injury on stage IV CKD, started on hemodialysis during this admission - acute diastolic congestive heart failure secondary to cardiorenal - anasarca secondary to cardiorenal syndrome as mentioned above for now received emergent dialysis yesterday. - Anemia of chronic disease, acute drop in hemoglobin secondary to acute blood loss anemia from GI bleed continue with Protonix and the surgery will be consulted transfuse 1 unit of PRBC - Chronic respiratory failure secondary to COPD , 5 L of oxygen at home. T - Hypertension - Hyperlipidemia - Hypothyroidism - History of recent fall and fracture to the left wrist with malunion noted - Paroxsymal atrial fibrillation presently rate controlled patient does have sick sinus syndrome history patient has a pacemaker - Type 2 diabetes mellitus - GI prophylaxis - DVT prophylaxis - Full code Plan: Patient was recently extubated yesterday on 08/10/2021 and currently maintained on 4 L via nasal cannula Multiple medical consultations following including pulmonary parts person, nephrology and will continue. Patient is maintained on hemodialysis and currently receiving dialysis today. Gen. surgery also following in regards to anemia workup and underwent nuclear medicine scanning with the tracer and overall impression is a negative exam with no evidence of active GI bleeding in the initial 1 hour. Recommend continue close ICU management PT/OT to evaluate the patient as patient is extremely weak Recommend repeat labs and follow-up chest x-ray in the morning Recommend patient continue with IV antibiotics and patient most recently was on IV steroids which has been discontinued and recommend close monitoring of Accu- Cheks before meals and at bedtime patient is maintained on sliding scale along with long-acting and will monitor closely, will adjust long-acting accordingly as blood sugars have been more controlled. Preliminary sputum culture showing gram-negative bacilli and awaiting for finalized culture. Overall prognosis is guarded. The impression and plan of care has been dictated by Rochelle Salinas, Nurse Practitioner as directed. Dr. Garo MD I have performed a history and examination and MDM of this patient, discussed the same with the dictator, and agree with the dictator's assessment and plan as written ,documented as a scribe. Based on total visit time, I have performed more than 50% of the visit. Objective - Vital Signs Vital signs: Vital Signs Temp 97.7 F 08/11/21 04:30 Pulse 83 08/11/21 08:28 Resp 9 L 08/11/21 07:00 BP 102/63 08/11/21 07:00 Pulse Ox 90 L 08/11/21 07:00 Intake & Output 08/10/21 08/11/21 08/11/21 18:59 06:59 18:59 Intake Total 568.367 5736.617 20 Output Total 675 0 0 Balance 506.062 1423.617 20 Weight 94.3 kg Intake: IV 490 440 20 0.9 sodium chloride 100 240 20 carriers Lactated Ringers 1,000 ml 40 @ 20 mls/hr IV .Q24H [facility] Rx#:[id number] Piperacillin-Tazobactam 3 100 200 .375 gm In Sodium Chloride 0.9% 100 ml @ 25 mls/hr IVPB Q8HR [facility] Rx# :[id number] Vancomycin 1,500 mg In 250 Sodium Chloride 0.9% 250 ml @ 125 mls/hr IVPB ONCE ONE Rx#:[id number] Intake, IV Titration 45.788 119.617 Amount Dexmedetomidine/0.9% NaCl 35.506 (Pmx) 400 mcg In Empty Bag 1 bag @ 0.2 MCG/KG/HR 4.75 mls/hr IV .Q21H4M [facility] Rx#:[id number] Norepinephrine 8 mg In 10.282 119.617 Sodium Chloride 0.9% 250 ml @ 0.05 MCG/KG/MIN 9. 348 mls/hr IV .Q24H [facility] Rx#:[id number] Oral 0 Tube Feeding 33 Blood Product 288 845 Rc Pheresis 2 As3 Unit 0 290 [id number] Rc Pheresis As-3 Unit 277 [id number] Rc Pheresis As-3 Unit 278 [id number] Rc Pheresis As-3 Unit 288 [id number] Other 83 Output: Urine 25 0 0 Stool 650 Other: Voiding Method Indwelling Catheter Indwelling Catheter # Bowel Movements 1 1 ABP, PAP, CO, CI - Last Documented Arterial Blood Pressure 103/50 - Labs CBC & Chem 7: 08/11/21 12:10 08/11/21 07:21 Labs: Abnormal Lab Results - Last 24 Hours (Table) 08/02/21 08/10/21 08/10/21 Range/Units 11:00 08:52 11:16 WBC 14.5 H (3.8-10.6) k/uL RBC 2.16 L (4.30-5.90) m/uL Hgb 6.5 L* (13.0-17.5) gm/dL Hct 21.7 L (39.0-53.0) % MCV 100.2 H (80.0-100.0) fL MCHC 30.1 L (31.0-37.0) g/dL RDW 16.7 H (11.5-15.5) % ABG pH 7.27 L (7.35-7.45) ABG pCO2 59 H (35-45) mmHg ABG HCO3 27 H (21-25) mmol/L ABG Total CO2 29 H (19-24) mmol/L BUN (9-20) mg/dL Creatinine (0.66-1.25) mg/dL Glucose (74-99) mg/dL POC Glucose (mg/dL) (75-99) mg/dL Crossmatch See Detail 08/10/21 08/10/21 08/10/21 Range/Units 11:30 12:50 14:27 WBC (3.8-10.6) k/uL RBC (4.30-5.90) m/uL Hgb (13.0-17.5) gm/dL Hct (39.0-53.0) % MCV (80.0-100.0) fL MCHC (31.0-37.0) g/dL RDW (11.5-15.5) % ABG pH (7.35-7.45) ABG pCO2 (35-45) mmHg ABG HCO3 (21-25) mmol/L ABG Total CO2 (19-24) mmol/L BUN (9-20) mg/dL Creatinine (0.66-1.25) mg/dL Glucose (74-99) mg/dL POC Glucose (mg/dL) 240 H 177 H (75-99) mg/dL Crossmatch See Detail 08/10/21 08/10/21 08/11/21 Range/Units 19:04 19:30 00:13 WBC 29.4 H (3.8-10.6) k/uL RBC 2.37 L (4.30-5.90) m/uL Hgb 7.0 L (13.0-17.5) gm/dL Hct 22.8 L (39.0-53.0) % MCV (80.0-100.0) fL MCHC 30.9 L (31.0-37.0) g/dL RDW 18.0 H (11.5-15.5) % ABG pH (7.35-7.45) ABG pCO2 (35-45) mmHg ABG HCO3 (21-25) mmol/L ABG Total CO2 (19-24) mmol/L BUN (9-20) mg/dL Creatinine (0.66-1.25) mg/dL Glucose (74-99) mg/dL POC Glucose (mg/dL) 247 H 181 H (75-99) mg/dL Crossmatch 08/11/21 08/11/21 08/11/21 Range/Units 06:45 07:21 07:21 WBC 21.3 H (3.8-10.6) k/uL RBC 2.71 L (4.30-5.90) m/uL Hgb 8.2 L (13.0-17.5) gm/dL Hct 25.3 L (39.0-53.0) % MCV (80.0-100.0) fL MCHC (31.0-37.0) g/dL RDW 17.8 H (11.5-15.5) % ABG pH (7.35-7.45) ABG pCO2 (35-45) mmHg ABG HCO3 (21-25) mmol/L ABG Total CO2 (19-24) mmol/L BUN 63 H (9-20) mg/dL Creatinine 4.18 H (0.66-1.25) mg/dL Glucose 163 H (74-99) mg/dL POC Glucose (mg/dL) 187 H (75-99) mg/dL Crossmatch Microbiology - Last 24 Hours (Table) 08/09/21 09:20 Blood Culture - Preliminary Blood No Growth after 24 hours 08/09/21 20:30 Gram Stain - Preliminary Sputum Sputum Culture - Preliminary
[2021-08-11 14:09] LABS: Band Neutrophils % 1 %; Lymphocytes # (M) 2.32 k/uL (1.0-4.8); Metamyelocytes # (M) 0.58 k/uL (0); Metamyelocytes % 2 %; Monocytes # (M) 2.61 k/uL (0-1.0); Myelocytes # (M) 0.87 k/uL (0); Myelocytes % 3 %; Neutrophils % (M) 80 %; Nucleated Red Blood Cells 0 /100 WBC (0-0); Total Cells Counted 200
[2021-08-11] MEDS: NOREPINEPHRINE 8 MG in SODIUM CHLORIDE 0.9% 250 ML IV SCH (14:29)
[2021-08-11] MEDS: allopurinoL 100 MG TAB PO SCH (14:30)
--- NOTE | 2021-08-11 16:54 | P.GSCN ---
History of Present Illness Consult date: 08/11/21 Reason for Consult: GI bleed History of present illness: This is a 65-year-old male with multiple medical problems. Patient was extubated yesterday. He then received a have significant bloody bowel movements. Hemoglobin was 06.5. His tagged RBC scan did not show any evidence of acute GI bleed. Patient does not show any further GI bleed today. He received 3 units packed red cells yesterday Past Medical History Past Medical History: Atrial Fibrillation, Heart Failure, COPD, Diabetes Mellitus, Deep Vein Thrombosis (DVT), GERD/Reflux, Hyperlipidemia, Hypertension, Pneumonia, Renal Disease, Respiratory Disorder, Skin Disorder, Sleep Apnea/CPAP/BIPAP, Vascular Disorder Additional Past Medical History / Comment(s): Pt recently admitted to [facility] on 06/24/21 with acute/chronic kidney disease, acute on chronic hypoxic respiratory distress, acute CHF, bilateral pleural effusion/R side worse and had thoracentesis, sputum with pseudomonos aeraginosis, hemotysis. Other hx: Chronic hypoxic respiratory failure and the patient OXYGEN dependent 5 L, previous history of left-sided pneumothorax requiring a Thoravent insertion, 2015 covid, IDDM type II, neuropathy bilateral feet, paroxysmal AFIB, SSS with pacer, nonischemic cardiomyopathy, past alcoholism/DTs, diverticulosis, obstuctive sleep apnea but no Cpap since wt loss, sinusitis, elevated LFTs, BPH, CKD stag III, DVT R leg, gout, hypothyroid, hypomagnesemia, hypoalbuminemia, anemia, protein calorie malnutrition, PVD, current sores bottom of L foot, left wrist fracture History of Any Multi-Drug Resistant Organisms: None Reported Past Surgical History: Appendectomy, Cholecystectomy, Heart Catheterization, Pacemaker Additional Past Surgical History / Comment(s): Partial liver removed d/t adhesions, colonoscopies, bilateral eyes blepharoplasties, pacer Past Anesthesia/Blood Transfusion Reactions: Postoperative Nausea & Vomiting (PONV) Additional Past Anesthesia/Blood Transfusion Reaction / Comm: Pt states he has had PONV with gas only. Type of Cardiac Device: Permanent Pacemaker Device Placement Date:: 2017 Smoking Status: Former smoker - Past Family History Mother Family Medical History: Thyroid Disorder Additional Family Medical History / Comment(s): . Father Additional Family Medical History / Comment(s): Father of diverticulitis,peritonitis at the age of 35yrs. Medications and Allergies Home Medications Medication Instructions Recorded Confirmed Type Tamsulosin [Flomax] 0.4 mg PO HS 06/23/16 07/27/21 History ondansetron HCL [Zofran] 4 mg PO Q8H PRN 09/30/18 07/26/21 History Apixaban [Eliquis] 2.5 mg PO BID 01/11/19 07/26/21 History Insulin Glargine,Hum.rec.anlog 25 unit SQ HS@199908/02/20 07/26/21 History [Lantus Solostar Pen] Levothyroxine Sodium [Synthroid] 25 mcg PO DAILY@0700 08/02/20 07/26/21 History Ipratropium/Albuter 20-100Mcg 1 puff INHALATION RT-QID 05/17/21 07/26/21 History [Combivent Respimat 20-100Mcg Inhaler] Lidocaine 5% Patch [Lidoderm 5% 1 patch TOPICAL DAILY@1600 PRN 05/17/21 07/26/21 History Patch] Midodrine HCl [ProAmatine] 10 mg PO TID 05/17/21 07/26/21 History allopurinoL [Zyloprim] 200 mg PO DAILY@1400 05/17/21 07/26/21 History Ascorbic Acid [Vitamin C] 1,000 mg PO BID@0800,1400 06/24/21 07/26/21 History Budesonide [Pulmicort] 0.5 mg INHALATION RT-BID 06/24/21 07/26/21 History Cholecalciferol [Vitamin D3 (25 25 mcg PO DAILY@0800 06/24/21 07/26/21 History Mcg = 1000 Iu)] Dicyclomine [Bentyl] 20 mg PO Q8H PRN 06/24/21 07/26/21 History Ferrous Sulfate [Iron (65 MG 325 mg PO DAILY@0800 06/24/21 07/26/21 History Elemental)] Fluticasone/Vilanterol [Breo 1 puff INHALATION RT-DAILY@0600 06/24/21 07/26/21 History Ellipta 200-25 Mcg Inhaler] INSULIN ASPART (NovoLOG) [NovoLOG See Protocol SQ ACHS 06/24/21 07/26/21 History (formulary)] Ipratropium-Albuterol Nebulize 3 ml INHALATION RT-Q4H PRN 06/24/21 07/26/21 Hi story [Duoneb 0.5 mg-3 mg/3 ml Soln] Loperamide HCl [Loperamide] 2 mg PO Q6H PRN 06/24/21 07/26/21 History Metoprolol Succinate (ER) [Toprol 50 mg PO HS@2000 06/24/21 07/26/21 History XL] Torsemide [Demadex] 40 mg PO DAILY@0700 06/24/21 07/26/21 History Artificial Tears-Hypromellose 2 drops BOTH EYES TID PRN ml 07/07/21 07/26/21 Rx [Artificial Tear Drops] Darbepoetin Hubert [Aranesp] 60 mcg SQ Q7D each 07/07/21 07/26/21 Rx Ipratropium-Albuterol Nebulize 3 ml INHALATION RT-QID ml 07/07/21 07/26/21 Rx [Duoneb 0.5 mg-3 mg/3 ml Soln] Pantoprazole [Protonix] 40 mg PO AC-BRKFST tab 07/07/21 07/26/21 Rx diphenhydrAMINE [Benadryl] 25 mg PO TID PRN cap 07/07/21 07/26/21 Rx Allergies Allergy/AdvReac Type Severity Reaction Status Date / Time codeine Allergy Unknown Verified 07/26/21 20:10 Surgical - Exam Vital Signs Pulse Resp BP Pulse Ox 65 22 134/80 99 07/26/21 16:08 07/26/21 16:08 07/26/21 16:08 07/26/21 16:08 - General no distress - Eyes PERRL - ENT normal pinna - Neck no masses - Respiratory normal expansion - Cardiovascular Rhythm: regular - Abdomen Abdomen: soft, non tender Results - Labs 08/11/21 12:10 08/11/21 07:21 Abnormal Lab Results - Last 24 Hours (Table) 08/10/21 08/10/21 08/10/21 Range/Units 12:50 19:04 19:30 WBC 29.4 H (3.8-10.6) k/uL RBC 2.37 L (4.30-5.90) m/uL Hgb 7.0 L (13.0-17.5) gm/dL Hct 22.8 L (39.0-53.0) % MCHC 30.9 L (31.0-37.0) g/dL RDW 18.0 H (11.5-15.5) % Neutrophils # (Manual) (1.3-7.7) k/uL Monocytes # (Manual) (0-1.0) k/uL Metamyelocytes # (Man) (0) k/uL Myelocytes # (Manual) (0) k/uL BUN (9-20) mg/dL Creatinine (0.66-1.25) mg/dL Glucose (74-99) mg/dL POC Glucose (mg/dL) 247 H (75-99) mg/dL Crossmatch See Detail 08/11/21 08/11/21 08/11/21 Range/Units 00:13 06:45 07:21 WBC (3.8-10.6) k/uL RBC (4.30-5.90) m/uL Hgb (13.0-17.5) gm/dL Hct (39.0-53.0) % MCHC (31.0-37.0) g/dL RDW (11.5-15.5) % Neutrophils # (Manual) (1.3-7.7) k/uL Monocytes # (Manual) (0-1.0) k/uL Metamyelocytes # (Man) (0) k/uL Myelocytes # (Manual) (0) k/uL BUN 63 H (9-20) mg/dL Creatinine 4.18 H (0.66-1.25) mg/dL Glucose 163 H (74-99) mg/dL POC Glucose (mg/dL) 181 H 187 H (75-99) mg/dL Crossmatch 08/11/21 08/11/21 08/11/21 Range/Units 07:21 11:33 12:10 WBC 21.3 H 29.0 H (3.8-10.6) k/uL RBC 2.71 L 2.96 L (4.30-5.90) m/uL Hgb 8.2 L 8.9 L (13.0-17.5) gm/dL Hct 25.3 L 27.4 L (39.0-53.0) % MCHC (31.0-37.0) g/dL RDW 17.8 H 17.8 H (11.5-15.5) % Neutrophils # (Manual) 23.40 H (1.3-7.7) k/uL Monocytes # (Manual) 2.61 H (0-1.0) k/uL Metamyelocytes # (Man) 0.58 H (0) k/uL Myelocytes # (Manual) 0.87 H (0) k/uL BUN (9-20) mg/dL Creatinine (0.66-1.25) mg/dL Glucose (74-99) mg/dL POC Glucose (mg/dL) 136 H (75-99) mg/dL Crossmatch Microbiology - Last 24 Hours (Table) 08/09/21 20:30 Gram Stain - Preliminary Sputum Sputum Culture - Preliminary Gram Neg Bacilli 08/09/21 09:20 Blood Culture - Preliminary Blood No Growth after 48 hours Diabetes panel 08/11/21 Range/Units 07:21 Sodium 142 (137-145) mmol/L Potassium 4.9 (3.5-5.1) mmol/L Chloride 107 (98-107) mmol/L Carbon Dioxide 24 (22-30) mmol/L BUN 63 H (9-20) mg/dL Creatinine 4.18 H (0.66-1.25) mg/dL Glucose 163 H (74-99) mg/dL Calcium 8.7 (8.4-10.2) mg/dL Calcium panel 08/11/21 Range/Units 07:21 Calcium 8.7 (8.4-10.2) mg/dL Pituitary panel 08/11/21 Range/Units 07:21 Sodium 142 (137-145) mmol/L Potassium 4.9 (3.5-5.1) mmol/L Chloride 107 (98-107) mmol/L Carbon Dioxide 24 (22-30) mmol/L BUN 63 H (9-20) mg/dL Creatinine 4.18 H (0.66-1.25) mg/dL Glucose 163 H (74-99) mg/dL Calcium 8.7 (8.4-10.2) mg/dL Adrenal panel 08/11/21 Range/Units 07:21 Sodium 142 (137-145) mmol/L Potassium 4.9 (3.5-5.1) mmol/L Chloride 107 (98-107) mmol/L Carbon Dioxide 24 (22-30) mmol/L BUN 63 H (9-20) mg/dL Creatinine 4.18 H (0.66-1.25) mg/dL Glucose 163 H (74-99) mg/dL Calcium 8.7 (8.4-10.2) mg/dL Assessment and Plan Assessment: Recent history of GI bleed. Patient will be observed currently. If he has recurrent GI bleed. He will need endoscopy.
[2021-08-11 18:13] LABS: Glucose,Whole Blood 104 mg/dL (75-99)
[2021-08-11] MEDS: LACTATED RINGERS 1,000 ML IV SCH (20:35)
[2021-08-12 00:14] LABS: Glucose,Whole Blood 62 mg/dL (75-99)
[2021-08-12] MEDS: HYDROmorphone 1 MG/ML 1 ML SYRINGE IVP PRN ×5 (00:18→23:26)
[2021-08-12] MEDS: PIPERACILLIN-TAZOBACTAM 3.375 GM in SODIUM CHLORIDE 0.9% 100 ML IVPB SCH ×4 (00:18→23:26)
[2021-08-12 00:49] LABS: Glucose,Whole Blood 63 mg/dL (75-99)
[2021-08-12] MEDS ORDERED: DEXTROSE 50% SYRINGE 50 ML IVP ONE (00:53)
[2021-08-12] MEDS: INSULIN ASPART (NovoLOG) 100 UNIT/ML VIAL SQ SCH ×5 (00:54→20:16)
[2021-08-12 01:21] LABS: Glucose,Whole Blood 84 mg/dL (75-99)
[2021-08-12] MEDS: IPRATROPIUM-ALBUTEROL 3 ML NEB INHALATION SCH ×8 (04:45→23:46)
[2021-08-12 05:09] LABS: Anisocytosis Slight; HCT 23.7 % (39.0-53.0); HGB 7.8 gm/dL (13.0-17.5); Hypochromasia Marked; MCH 31.1 pg (25.0-35.0); MCHC 33.1 g/dL (31.0-37.0); Platelet Count 299 k/uL (150-450); Poikilocytosis Moderate; RBC 2.52 m/uL (4.30-5.90); RDW 17.7 % (11.5-15.5); WBC 21.8 k/uL (3.8-10.6)
[2021-08-12 05:26] LABS: Calcium 8.8 mg/dL (8.4-10.2); Potassium 3.7 mmol/L (3.5-5.1)
[2021-08-12 05:31] LABS: Vancomycin,Random 17.2 ug/mL
[2021-08-12] MEDS: INSULIN DETEMIR (LEVEMIR) 100 UNIT/ML SYR SQ SCH (05:59)
[2021-08-12 06:47] LABS: Glucose,Whole Blood 92 mg/dL (75-99)
[2021-08-12] MEDS: LEVOTHYROXINE 25 MCG TAB PO SCH (06:47)
[2021-08-12] MEDS: FORMOTEROL FUMARATE 20 MCG/2 ML NEBU INHALATION SCH ×3 (07:32→19:23)
[2021-08-12] MEDS: BUDESONIDE 1 MG/2 ML NEBU INHALATION SCH ×3 (07:32→19:23)
[2021-08-12] MEDS: POTASSIUM CHLORIDE ER 20 MEQ TAB.ER PO SCH ×2 (08:43→11:42)
[2021-08-12] MEDS: ASCORBIC ACID 500 MG TAB PO SCH ×2 (08:43→20:16)
[2021-08-12] MEDS: CHOLECALCIFEROL 25 MCG (1000 IU) TABLET PO SCH (08:44)
[2021-08-12] MEDS: METOPROLOL TARTRATE 25 MG TAB PO SCH ×2 (08:44→20:16)
[2021-08-12] MEDS: PANTOPRAZOLE 40 MG/10 ML VIAL IV SCH (08:45)
[2021-08-12] MEDS: NOREPINEPHRINE 8 MG in SODIUM CHLORIDE 0.9% 250 ML IV SCH (08:48)
[2021-08-12] MEDS ORDERED: VANCOMYCIN 1,500 MG in SODIUM CHLORIDE 0.9% 250 ML IVPB ONE (09:00)
--- NOTE | 2021-08-12 11:03 | P.PN ---
Subjective Progress Note Date: 08/12/21 On today's evaluation of 08/09/2021, see the patient for a follow-up. The patient remains intubated on a mechanical ventilator and the patient remains sedated. This morning, the patient is on propofol at 45 [place] respiratory per minute. The patient is an assist-control mode of mechanical ventilation at the rate of 26, tidal volume of 450, FiO2 of 30% with a PEEP of 5. The patient's blood gases from today shows a pH of 7.31 with a pCO2 of 51 and pO2 of 100. The chest x-ray was showing a left-sided consolidation which has recovered and the chest x-ray from today showing cardiomegaly and bilateral small pleural effusions. ET tube is in a good location. The patient's cardiac rhythm is sinus and the patient is on low-dose norepinephrine infusion running at 0.05 micrograms per kilogram per minute for hemodynamic support. The patient currently is also undergoing hemodialysis. The patient has a right-sided dialysis catheter in place. Noted the patient's last hemodialysis session was on 08/07/2021 and a total of 2 L of fluid was removed. He does have some liquidy stool and the patient has a fecal management system in place. The patient is receiving enteral feeding for nutritional support and the patient is currently on Nepro at the rate of 33 mL an hour. The patient has a right femoral triple-lumen catheter in place and a temporary dialysis catheter in his right IJ. Earlier this morning, he did spike a temperature. Based on that, cultures were sent including blood and sputum and the patient was covered with accommodation Zosyn and vancomycin. Pending further cultures. At the same time, I instructed the nursing staff to proceed with this point to proceed with a sedation holiday and assess the patient's mental status. On 08/10/2021, the patient is being seen for a follow-up. The patient remains intubated on a mechanical ventilator. On yesterday's evaluation, the patient was gradually taken off the sedation the patient showed adequate mentation. At one point, we thought that his pupils were unequal and based on that a CAT scan of the brain was done that showed no acute abnormalities. After discontinuing the propofol, the patient overnight had to be placed on low-dose Precedex which is currently running at 0.3 mcg/kg per minute. The patient is also off norepinephrine infusion since 9 PM yesterday. This morning, the patient is arousable. He is awake. He is on assist control mode of mechanical ventilation at the rate of 26 with a tidal volume of 450 and the rate of 26 with an FiO2 of 40% and a PEEP of 5. Blood gases showed a pH of 7.34 with a pCO2 of 48 and pO2 of 78 chest x-ray findings are essentially unchanged. The patient is afebrile for now. He did spike a temperature yesterday and the patient was given blood cultures and the patient was given a combination of Zosyn and vancomycin. Currently is afebrile and her most recent temperature is 90.9F. His white cell count is at 10.7 with hemoglobin of 6.9 and the patient's sodium level is at 138 with a potassium of 5 and a BUN of 40 with a creatinine of 3.0. The patient's underwent hemodialysis yesterday and the patient had ultrafiltration. He is on Nepro for enteral feeding and nutritional support at the rate of 20 mL an hour. He has a fecal management system in place and output is minimal at this point in time. Based on all this, the patient was given a sedation holiday. Weaning parameters were checked and the patient is being considered for possible extubation to BiPAP at a later stage and this large dependent on his ability to undergo this point is breathing trial. On 08/11/2021, the patient is being seen for a follow-up. The patient was weaned off the mechanical ventilator and the patient was extubated yesterday without any major difficulties. The patient however started having episodes of GI bleed as of yesterday. The patient had several bouts of lower GI bleed when he was passing abdominal color stool on multiple occasions. The hemoglobin was being monitored very regularly and the patient remained essentially hemodynamically stable. Hemoglobin dropped as low as 6.5. Note that during his ongoing GI bleed, the patient was given a total of 4 units of packed RBC and hemoglobin this morning is up to 8.2. He did have a bloody bowel movement yesterday evening and none since. The patient remains nothing by mouth. The patient remains on IV Protonix. The patient has a normal coagulation profile. He has not taken anticoagulation since the beginning of this current admission. Based on his ongoing bleed, general surgery was consulted and the patient underwent a GI bleeding scan, a red blood cell Scan that showed no evidence of any acute bleeding. Meanwhile, he is awake and alert his communicating. No cervical respiratory distress. No chest pain she is respiratory difficulties. No chest pain. No altered mentation. No fever. The patient remains on Zosyn. The patient was a result of 21 from . Noted the patient developed acute leukocytosis over the past 24 hours and he seems to be improving. The rest of the electrolytes are all within normal limits. BUN is at 63 with a creatinine of 4.8. Vancomycin trough level is 23.4 and patient is currently on vancomycin. The patient is on Levemir insulin and he is receiving 30 units daily along with ascites care coverage. Blood sugars under adequate control for now. No focal neurological deficits. He is weak and debilitated. He also has a stage II ulcer over the left foot On 08/12/2021, the patient is being seen for a follow-up. The patient is doing well and we haven't experienced any active GI bleeding over the past 12-24 hours. Hemoglobin stable at 7.8. Yesterday's hemoglobin was 8.9 after being given a unit of packed RBC. Overall, the patient received a total of 5 units of packed RBC. He is hungry and is requesting some oral intake. He remains on ox ygen 4 L per minute nasal cannula. Sputum is positive for gram-negative bacillus. He has a congested cough. Unable to bring up much sputum. He is currently off pressors. He underwent hemodialysis yesterday with ultrafiltration. On today's blood work, the white second slightly elevated at 21, comparable to yesterday and the platelet count is 229. The sodium is at 132 with a potassium level of 3.7 and the BUN of 39 with a creatinine of 2.6. No altered mentation. Remains on IV Zosyn. Vancomycin trough was also checked and vancomycin can be essentially discontinued for now. No other significant events overnight otherwise. He is on no anticoagulants. The patient remains in normal sinus rhythm. General surgeries on the case. No plans for endoscopy at this point in time. Objective - Vital Signs Vital signs: Vital Signs Temp 98.6 F 08/12/21 08:00 Pulse 76 08/12/21 10:56 Resp 26 H 08/12/21 10:30 BP 109/63 08/12/21 10:30 Pulse Ox 99 08/12/21 10:30 Intake & Output 08/11/21 08/12/21 08/12/21 18:59 06:59 18:59 Intake Total 654.427 417.430 600 Output Total 2530 13 Balance -1875.573 417.430 587 Intake: IV 440 240 100 0.9 sodium chloride 130 120 50 carriers Lactated Ringers 1,000 ml 110 120 50 @ 20 mls/hr IV .Q24H [facility] Rx#:[id number] Piperacillin-Tazobactam 3 200 .375 gm In Sodium Chloride 0.9% 100 ml @ 25 mls/hr IVPB Q8HR [facility] Rx# :[id number] Intake, IV Titration 14.427 77.430 Amount Norepinephrine 8 mg In 14.427 77.430 Sodium Chloride 0.9% 250 ml @ 0.05 MCG/KG/MIN 9. 348 mls/hr IV .Q24H [facility] Rx#:[id number] Oral 200 100 500 Output: Urine 30 13 Hemodialysis 2500 Other: Voiding Method Indwelling Catheter Indwelling Catheter Indwelling Catheter # Bowel Movements 1 ABP, PAP, CO, CI - Last Documented Arterial Blood Pressure 103/50 - Exam No acute distress, . The patient is extubated and the patient is currently on 4 L of oxygen by nasal cannula. No signs of any significant respiratory distress at this point in time and is not using excessive muscle breathing. Head exam was generally normal. There was no scleral icterus or corneal arcus. Mucous membranes were moist. HEENT examination is grossly unremarkable. The patient has a right IJ temporary hemodialysis catheter in place and the exit site is dry clean and intact. Orogastric and orotracheal tube are both in place. Neck supple. Full range of motion. No adenopathy thyromegaly or neck vein distention. Cardiovascular examination reveals regular rhythm rate. S1-S2 normal. No S3 or S4. No discernible murmur noted. Lungs reveal coarse bilateral rhonchi, and bilateral crackles. No wheezes. Breath sounds equal bilaterally. Abdominal exam revealed normal bowel sounds. The abdomen was soft, non-tender, and without masses, organomegaly, or appreciable enlargement of the abdominal aorta. Extremities are intact. No cyanosis clubbing or edema. A stage 2 to 3 cm ulcer over the left foot. SkinExamination of the skin revealed no evidence of significant rashes, suspicious appearing nevi or other concerning lesions. Neurologic the patient has global generalized weakness. Is moving all 4 extremities. Motor function is weak in all 4 extremities and symmetrical. No focal neurological deficit. Awake and alert and following commands and answering questions appropriately. - Labs CBC & Chem 7: 08/12/21 04:22 08/12/21 04:22 Labs: Abnormal Lab Results - Last 24 Hours (Table) 08/11/21 08/11/21 08/11/21 Range/Units 11:33 12:10 18:11 WBC 29.0 H (3.8-10.6) k/uL RBC 2.96 L (4.30-5.90) m/uL Hgb 8.9 L (13.0-17.5) gm/dL Hct 27.4 L (39.0-53.0) % RDW 17.8 H (11.5-15.5) % Neutrophils # (Manual) 23.40 H (1.3-7.7) k/uL Monocytes # (Manual) 2.61 H (0-1.0) k/uL Metamyelocytes # (Man) 0.58 H (0) k/uL Myelocytes # (Manual) 0.87 H (0) k/uL BUN (9-20) mg/dL Creatinine (0.66-1.25) mg/dL Glucose (74-99) mg/dL POC Glucose (mg/dL) 136 H 104 H (75-99) mg/dL 08/12/21 08/12/21 08/12/21 Range/Units 00:11 00:48 04:22 WBC (3.8-10.6) k/uL RBC (4.30-5.90) m/uL Hgb (13.0-17.5) gm/dL Hct (39.0-53.0) % RDW (11.5-15.5) % Neutrophils # (Manual) (1.3-7.7) k/uL Monocytes # (Manual) (0-1.0) k/uL Metamyelocytes # (Man) (0) k/uL Myelocytes # (Manual) (0) k/uL BUN 39 H (9-20) mg/dL Creatinine 2.63 H (0.66-1.25) mg/dL Glucose 70 L (74-99) mg/dL POC Glucose (mg/dL) 62 L 63 L (75-99) mg/dL 08/12/21 Range/Units 04:22 WBC 21.8 H (3.8-10.6) k/uL RBC 2.52 L (4.30-5.90) m/uL Hgb 7.8 L (13.0-17.5) gm/dL Hct 23.7 L (39.0-53.0) % RDW 17.7 H (11.5-15.5) % Neutrophils # (Manual) (1.3-7.7) k/uL Monocytes # (Manual) (0-1.0) k/uL Metamyelocytes # (Man) (0) k/uL Myelocytes # (Manual) (0) k/uL BUN (9-20) mg/dL Creatinine (0.66-1.25) mg/dL Glucose (74-99) mg/dL POC Glucose (mg/dL) (75-99) mg/dL Microbiology - Last 24 Hours (Table) 08/09/21 20:30 Gram Stain - Final Sputum Sputum Culture - Final Serratia marcescens 08/09/21 09:20 Blood Culture - Preliminary Blood No Growth after 48 hours Assessment and Plan Plan: Acute hypoxemic respiratory failure, requiring intubation and mechanical ventilation on 08/04/2021. The patient is a hypoxic respiratory failure is obviously multifactorial. The patient has advanced COPD. There was a component of fluid overload and the patient have a left lung consolidation is noted on the chest x-ray and a CAT scan of the chest. The sputum Gram stain showing gram- negative bacillus. Final culture are still pending for now and the patient is on IV Zosyn. The patient remains on 4 L of oxygen by nasal cannula. No signs of any respiratory distress. He is undergoing deep breathing, coughing and pulmonary toileting. Chronic kidney disease, requiring hemodialysis. Last hemodialysis was on 08/11/2021. Acute lower GI bleeding. The patient is currently on no anticoagulants. The patient received a total of 5 units of packed RBC and the most recent hemoglobin is at 7.6. RBC tagged scan came back negative and the patient is hemodynamically stable at this point in time. No active bleeding since yesterday History of chronic atrial fibrillation. Patient currently is off anti coagulation. Anemia, chronic, with acute drop in hemoglobin as low as 6.5 units of lower GI bleeding. Current hemoglobin is stable. History of CHF. History of COPD, advanced and the patient is oxygen dependent on outpatient basis History of diabetes mellitus. History of DVT. History of gastroesophageal reflux disease. History of hyperlipidemia. History of hypertension. History of sleep apnea syndrome. History of pneumonia. Chronic hypoxemic respiratory failure, secondary to COPD Plan The patient is currently extubated on 4 L O2 nasal cannula Provide the patient incentive spirometer Monitor the GI bleeding May allow clear liquid diet RBC tagged scan is negative General surgeries on the case Patient has been transfused with a total of 5 units of packed RBCs Continue IV Protonix Hemodialysis was completed yesterday Continue IV Zosyn Discontinue vancomycin Continue Levemir insulin for blood sugar control Monitor hemoglobin General surgeries on the case We'll continue to follow make further recommendations based on his progress.
[2021-08-12 11:56] LABS: Glucose,Whole Blood 116 mg/dL (75-99)
--- NOTE | 2021-08-12 12:30 | P.PN ---
Subjective Progress Note Date: 08/12/21 CHIEF COMPLAINT: GI bleed HISTORY OF PRESENT ILLNESS: Patient remains in the ICU. He has multiple medical problems. He's had no further bloody bowel movements. Hemoglobin did drop from 8.9-7.8. He did have a tagged RBC scan no evidence of acute GI bleed. Patient has received a total of 5 units of blood during his admission. He denies any abdominal pain. Denies any nausea vomiting. He's currently on a liquid diet. PHYSICAL EXAM: VITAL SIGNS: Reviewed. GENERAL: Well-developed in no acute distress. HEENT: No sclera icterus. Extraocular movements grossly intact. Moist buccal mucosa. Head is atraumatic, normocephalic. ABDOMEN: Soft. Nondistended. Nontender. NEUROLOGIC: Alert and oriented. Cranial nerves II through XII grossly intact. ASSESSMENT: 1. Acute GI bleed 2. Acute blood loss anemia PLAN: -Continue to observe patient. If he has recurrent GI bleed he will require end oscopy -Continue to monitor for any signs or symptoms of bleeding -Continue to monitor hemoglobin -Okay to start clear liquid diet Physician Revenue Research Analyst note has been reviewed by physician. Signing provider agrees with the documented findings, assessment, and plan of care. Objective - Vital Signs Vital signs: Vital Signs Temp 98.6 F 08/12/21 08:00 Pulse 75 08/12/21 11:03 Resp 26 H 08/12/21 10:30 BP 109/63 08/12/21 10:30 Pulse Ox 99 08/12/21 10:30 Intake & Output 08/11/21 08/12/21 08/12/21 18:59 06:59 18:59 Intake Total 654.427 417.430 600 Output Total 2530 13 Balance -1875.573 417.430 587 Weight 94.3 kg Intake: IV 440 240 100 0.9 sodium chloride 130 120 50 carriers Lactated Ringers 1,000 ml 110 120 50 @ 20 mls/hr IV .Q24H [facility] Rx#:[id number] Piperacillin-Tazobactam 3 200 .375 gm In Sodium Chloride 0.9% 100 ml @ 25 mls/hr IVPB Q8HR [facility] Rx# :[id number] Intake, IV Titration 14.427 77.430 Amount Norepinephrine 8 mg In 14.427 77.430 Sodium Chloride 0.9% 250 ml @ 0.05 MCG/KG/MIN 9. 348 mls/hr IV .Q24H [facility] Rx#:[id number] Oral 200 100 500 Output: Urine 30 13 Hemodialysis 2500 Other: Voiding Method Indwelling Catheter Indwelling Catheter Indwelling Catheter # Bowel Movements 1 ABP, PAP, CO, CI - Last Documented Arterial Blood Pressure 103/50 - Labs CBC & Chem 7: 08/12/21 04:22 08/12/21 04:22 Labs: Abnormal Lab Results - Last 24 Hours (Table) 08/11/21 08/11/21 08/12/21 Range/Units 12:10 18:11 00:11 WBC 29.0 H (3.8-10.6) k/uL RBC 2.96 L (4.30-5.90) m/uL Hgb 8.9 L (13.0-17.5) gm/dL Hct 27.4 L (39.0-53.0) % RDW 17.8 H (11.5-15.5) % Neutrophils # (Manual) 23.40 H (1.3-7.7) k/uL Monocytes # (Manual) 2.61 H (0-1.0) k/uL Metamyelocytes # (Man) 0.58 H (0) k/uL Myelocytes # (Manual) 0.87 H (0) k/uL BUN (9-20) mg/dL Creatinine (0.66-1.25) mg/dL Glucose (74-99) mg/dL POC Glucose (mg/dL) 104 H 62 L (75-99) mg/dL 08/12/21 08/12/21 08/12/21 Range/Units 00:48 04:22 04:22 WBC 21.8 H (3.8-10.6) k/uL RBC 2.52 L (4.30-5.90) m/uL Hgb 7.8 L (13.0-17.5) gm/dL Hct 23.7 L (39.0-53.0) % RDW 17.7 H (11.5-15.5) % Neutrophils # (Manual) (1.3-7.7) k/uL Monocytes # (Manual) (0-1.0) k/uL Metamyelocytes # (Man) (0) k/uL Myelocytes # (Manual) (0) k/uL BUN 39 H (9-20) mg/dL Creatinine 2.63 H (0.66-1.25) mg/dL Glucose 70 L (74-99) mg/dL POC Glucose (mg/dL) 63 L (75-99) mg/dL 08/12/21 Range/Units 11:54 WBC (3.8-10.6) k/uL RBC (4.30-5.90) m/uL Hgb (13.0-17.5) gm/dL Hct (39.0-53.0) % RDW (11.5-15.5) % Neutrophils # (Manual) (1.3-7.7) k/uL Monocytes # (Manual) (0-1.0) k/uL Metamyelocytes # (Man) (0) k/uL Myelocytes # (Manual) (0) k/uL BUN (9-20) mg/dL Creatinine (0.66-1.25) mg/dL Glucose (74-99) mg/dL POC Glucose (mg/dL) 116 H (75-99) mg/dL Microbiology - Last 24 Hours (Table) 08/09/21 09:20 Blood Culture - Preliminary Blood No Growth after 72 hours 08/09/21 20:30 Gram Stain - Final Sputum Sputum Culture - Final Serratia marcescens
--- NOTE | 2021-08-12 13:14 | P.PN ---
Subjective Patient is seen for follow-up for acute kidney injury and top of chronic kidney disease Patient has underlying chronic kidney disease stage IV with recent worsening of his renal function since May 2021. Creatinine increased from 1.4 on 05/24/[address] up to 3.1 on 07/05/2021. Patient had acute kidney injury during his hospitalization last month and serum creatinine on discharge was 3.0. Acute kidney injury was mostly cardiorenal. Patient was diuresed and discharged on torsemide. He was admitted to the hospital now with a creatinine of around 10.2. Patient was started on dialysis on 07/27/2021. Volume status has improved significantly with dialysis. Patient is seen in the ICU. He is comfortable, awake. Not in any acute distress. He is maintained on 4 L nasal cannula Patient complained about not being able to hold his coffee cup due to weakness. Objective - Vital Signs Vital signs: Vital Signs Temp 98.6 F 08/12/21 12:00 Pulse 72 08/12/21 12:30 Resp 21 08/12/21 12:30 BP 119/61 08/12/21 12:30 Pulse Ox 95 08/12/21 12:30 Intake & Output 08/11/21 08/12/21 08/12/21 18:59 06:59 18:59 Intake Total 654.427 417.430 600 Output Total 2530 13 Balance -1875.573 417.430 587 Weight 94.3 kg Intake: IV 440 240 100 0.9 sodium chloride 130 120 50 carriers Lactated Ringers 1,000 ml 110 120 50 @ 20 mls/hr IV .Q24H [facility] Rx#:[id number] Piperacillin-Tazobactam 3 200 .375 gm In Sodium Chloride 0.9% 100 ml @ 25 mls/hr IVPB Q8HR [facility] Rx# :[id number] Intake, IV Titration 14.427 77.430 Amount Norepinephrine 8 mg In 14.427 77.430 Sodium Chloride 0.9% 250 ml @ 0.05 MCG/KG/MIN 9. 348 mls/hr IV .Q24H [facility] Rx#:[id number] Oral 200 100 500 Output: Urine 30 13 Hemodialysis 2500 Other: Voiding Method Indwelling Catheter Indwelling Catheter Indwelling Catheter # Bowel Movements 1 ABP, PAP, CO, CI - Last Documented Arterial Blood Pressure 103/50 - Exam Patient is extubated, awake, no acute distress Bilateral breath sounds are heard Abdomen is soft nontender Examination lower extremities shows chronic skin changes. Improved edema, currently no edema noted Left wrist swelling noted, improving, dressed CATHETER BUILDER exam grossly intact. - Labs CBC & Chem 7: 08/12/21 04:22 08/12/21 04:22 Labs: Abnormal Lab Results - Last 24 Hours (Table) 08/11/21 08/11/21 08/12/21 Range/Units 12:10 18:11 00:11 WBC (3.8-10.6) k/uL RBC (4.30-5.90) m/uL Hgb (13.0-17.5) gm/dL Hct (39.0-53.0) % RDW (11.5-15.5) % Neutrophils # (Manual) 23.40 H (1.3-7.7) k/uL Monocytes # (Manual) 2.61 H (0-1.0) k/uL Metamyelocytes # (Man) 0.58 H (0) k/uL Myelocytes # (Manual) 0.87 H (0) k/uL BUN (9-20) mg/dL Creatinine (0.66-1.25) mg/dL Glucose (74-99) mg/dL POC Glucose (mg/dL) 104 H 62 L (75-99) mg/dL 08/12/21 08/12/21 08/12/21 Range/Units 00:48 04:22 04:22 WBC 21.8 H (3.8-10.6) k/uL RBC 2.52 L (4.30-5.90) m/uL Hgb 7.8 L (13.0-17.5) gm/dL Hct 23.7 L (39.0-53.0) % RDW 17.7 H (11.5-15.5) % Neutrophils # (Manual) (1.3-7.7) k/uL Monocytes # (Manual) (0-1.0) k/uL Metamyelocytes # (Man) (0) k/uL Myelocytes # (Manual) (0) k/uL BUN 39 H (9-20) mg/dL Creatinine 2.63 H (0.66-1.25) mg/dL Glucose 70 L (74-99) mg/dL POC Glucose (mg/dL) 63 L (75-99) mg/dL 08/12/21 Range/Units 11:54 WBC (3.8-10.6) k/uL RBC (4.30-5.90) m/uL Hgb (13.0-17.5) gm/dL Hct (39.0-53.0) % RDW (11.5-15.5) % Neutrophils # (Manual) (1.3-7.7) k/uL Monocytes # (Manual) (0-1.0) k/uL Metamyelocytes # (Man) (0) k/uL Myelocytes # (Manual) (0) k/uL BUN (9-20) mg/dL Creatinine (0.66-1.25) mg/dL Glucose (74-99) mg/dL POC Glucose (mg/dL) 116 H (75-99) mg/dL Microbiology - Last 24 Hours (Table) 08/09/21 09:20 Blood Culture - Preliminary Blood No Growth after 72 hours 08/09/21 20:30 Gram Stain - Final Sputum Sputum Culture - Final Serratia marcescens Assessment and Plan Assessment: 1. Acute kidney injury most likely ATN, currently nonoliguric. However given the significantly elevated BUN/creatinine creatinine and volume overload with hyperkalemia, started on hemodialysis on 07/27/2021. No obstruction on ultrasound. UA shows trace protein and moderate blood. Serologies ordered to rule out underlying GN. Mostly all workup negative except for slightly decreased C3 levels. Not a candidate for kidney biopsy. 2. Chronic kidney disease NKF stage IIIB secondary to nephrosclerosis with previous creatinine as low as 1.4 in May 2021 but most recently staying as high as 3.1-3.0 on 07/07/2021 with episodes of acute kidney injury during his hospitalizations for CHF and pneumonia. 3. CHF exacerbation, diastolic 4. Volume overload, improved significantly since admission.. 5. Hyperkalemia associated with acute kidney injury, no urine retention noted, improved post dialysis 6. Acute hypercapnic respiratory failure, status post extubation. Being treated for pneumonia. Also component of volume overload 7. Paroxysmal A. fib with controlled ventricular response status post pacemaker Plan: Hemodialysis in a.m.
[2021-08-12] MEDS: allopurinoL 100 MG TAB PO SCH (14:48)
[2021-08-12 17:09] LABS: Glucose,Whole Blood 167 mg/dL (75-99)
--- NOTE | 2021-08-12 18:27 | P.PN ---
Subjective Patient is a 65-year-old male with multiple medical problems multiple comorbidities was recently discharged from the hospital after he was treated for volume or note from chronic gastritis function and the cardiorenal syndrome. Patient was discharged to rehab facility 2 days into rehab related patient patient went home and started having shortness of breath volume overload diffuse anasarca and pedal edema. Patient is found to be in significant volume or lower chest x-ray showed bilateral pleural effusion although this appears to have improved compared to last admission when he had thoracentesis. Patient has significant lab abnormalities including creatinine going up to around 10 potassium 6.2 very low magnesium of 0.9 nephrology was consulted. As per nephrology patient will lead hemodialysis, consult to vascular surgery was placed for hemodialysis catheter placement and patient will be subsequently started on hemodialysis. Patient does have advanced COPD uses about 5 L of oxygen. 07/28/2021 Patient is seen and evaluated and follow-up has received hemodialysis catheter and is receiving hemodialysis today. Kidney functions improving and patient reports to producing more urine. Current creatinine is 7.6 today potassium is 5 .5 and sodium is 139. Blood sugars have been more manageable and will continue current regimen. Patient continues on 5 L via nasal cannula which is chronic for him. Nephrology following closely and will continue with dialysis daily at this time. Patient is also maintained on IV Lasix and will continue. Patient denies chest pain, shortness of breath, or palpitations. Patient is afebrile. No nausea or vomiting noted and patient is tolerating diet. subjective: resume the care of the pt today 07/29/2021 This is a pleasant 65 years old male with stage IV chronic kidney disease presents with fatigue and worsening kidney function requiring hemodialysis which is a started during this admission after a catheter placed in the right groin. He is hemodynamically stable, he is on 5 L per minute of oxygen but saturating 98-99%, we will try to titrate his oxygen down. No much dyspnea or cough and while he is lying flat in bed but he feels very weak all over. His been having recurrent nausea vomiting, mainly worked first of this morning but he is fully awake with no headache. No abdominal pain. He is hemodynamically stable, hemoglobin 7.4 with evidence of chronic anemia, also he is on ferrous sulfate once daily at home. This currently on home dose of liquids 2.5 and IV Lasix 60 mg twice daily. Ultrasound of the abdomen showing no hydronephrosis or nephrolithiasis. And chest x-ray showed small right pleural effusion with atelectasis. Also patient has chronic left leg wound secondary to a fall about 3 months ago. Patient refused to take the dressing off. We consulted once care. Patient is on Zofran already, we added Phenergan. We ordered a KUB. Also ask for PT OT evaluation. WOUND TEAM CONSULT 07/30/2021 Patient awake alert, no much tachypnea but he stayed in bed most of the time, he still at baseline of 4 L/m of oxygen. However patient reports coughing a lot and making a lot of phlegm, he said he has been diagnosed with pneumonia 2 weeks ago. Actually chest x-ray from yesterday showing bilateral infiltrate, I reviewed the chest x-ray by myself and it looks worse compared to admission despite starting him on a new hemodialysis and receiving Lasix for his CHF. Also we checked his pro-calcitonin and it is elevated at 0.5 for which is consistent with infection with this constellation of CHF, chest x-ray findings and elevated pro-calcitonin. Most likely and high suspicion for hospital acquired pneumonia and patient is a started on Zosyn last night. We going to repeat chest x-ray tomorrow morning. Bladder scan show minimal urine, Flomax was discontinued. Wound care R following the patient for his left foot wound. 07/31/2021 Patient seen in bed most of the time, physical therapy recommended rehab, I talked to him today about this recommendation and he is refusing now. He still on 4 L oxygen nasal cannula which looks like he is this is his baseline however he has coarse crepitation looks like it comes from secretion with decreased air entry on both sides, patient confirms to me he has history of COPD. However I would recommend he follow up with a gum maker as an outpatient. Repeat chest x-ray today showing no worsening infiltrate however it shows Similar multifocal airspace opacities. Correlate for congestive heart failure and/or diffuse airspace disease in the meantime we will keep him on Zosyn and check a pro-calcitonin tomorrow, if improvement we may consider oral antibiotic. However started on Solu-Medrol 60 mg 3 times a day today. He is kept on IV Lasix and hemodialysis I discussed the case with nephrology team and they recommended the permacath prior to discharge, discussed with bed side nurse to inform surgical vascular team. Workup showing anemia of chronic disease and he was started on arenasept by preanalytics team lead. 08/01/2021 Patient clinically is doing well generally, he is breathing quietly, he is tolerating diet well, no bowel movement today Nephrology team on the case and plan for him to get the permacath by vascular surgery team hopefully tomorrow. Also his evidence of COPD exacerbation which is improving therefore Solu-Medrol our to 40 mg twice a day. Pro-calcitonin still elevated 0.68, currently on Zosyn, sputum cultures pending. However patient only having cough and phlegm which is pending as above. Saturation is 4-5 L/m which is his baseline. Rehab is recommended but patient was reluctant so far. 08/02/2021 Patient is lying in bed most of the time, his breathing is at baseline and is i mproving with less crepitation but he is coughing a lot . His oxygen requirement at baseline on 4 L/m which is his home dose. his hemoglobin dropped today to 5.7, his workup showing anemia of chronic disease despite being an IV and oral iron, workup showing anemia of chronic disease but cannot rule out GI bleed especially he's on liquids which is on hold today before going for procedure. Therefore we going to consult GI service in any way. Occult blood in his stool test is requested. Patient states he has 3- 4 loose bowel movements, we will check C. diff as well. No abdominal pain or vomiting. Patient is going for permacath placement today and hemodialysis tomorrow, he got hemodialysis this morning. Patient adamantly refusing to go to rehab despite recommendation for medical and nephrology team on several occasions. Patient and make his own decisions. 08/03/2021 Patient now wake and breathing comfortably at baseline, he is less coughing compared to yesterday after started on Robitussin D but today he wants to, more so I can bring stuff up out of his chest, therefore we change his Robitussin into when necessary dosing and he was informed. No chest pain or other symptoms. However there was some concerns of pulmonary congestion there for his colonoscopy/EGD for tomorrow is rescheduled until . He is placed on liquid diet therefore we lowered his Levemir form 25 units which is home dose down to 10 units tonight. His chest x-ray looks the same Reticulocyte count is 1.5 but he got one unit of transfusion. Currently hemoglobin is holding at 8.1, glucose control, magnesium normal at 2.2, sodium at 1:30 and he is saturating at 4-5 L/m which is home dose. Diarrhea stopped, occult blood in stool is negative and C. diff negative. 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 Repeat CT of the chest today showed no evidence of pulmonary embolism and there is extensive bilateral infiltrates concerning for aspiration. Currently he is saturating 98% on FiO2 of 50% and respiratory rate of 26. Labs reviewed and showing WBC of 14.6, creatinine down to 1.6, hemoglobin 10, potassium after placement 3.4. Patient labs reviewed remains on Zosyn, Pro-calcitonin is improving down to 0.3 prior to this episode of aspiration. Patient remains afebrile for now. His Eliquis remains on hold in view of his history of A. fib due for suspected GI bleed. Patient remains on Zosyn, Protonix and insulin sliding scale. Also patient placed on Lasix 80 mg daily and receives an extra dose this morning. While insulin 10 units is held 08/05/2021 Patient remains in the ICU sedated and intubated. He is off Levophed today. Metoprolol was held yesterday and his blood pressure improved, and this morning 87/54 and his rate was sinus rhythm at 93, no evidence of A. fib and RVR given his history of similar problem. Hemoglobin 7.9, which is known he is anemic, his Eliquis is still on hold for possible GI bleed with planned to undergo EGD/colonoscopy at certain point per GI team her on the case. Creatinine went up to 0.8. He is undergoing hemodialysis. Chest x-ray showed some improvement by a radiologist Remains on IV Zosyn for his recurrent aspiration pneumonia. Also Lasix was held. His prognosis remains guarded 08/09/2021, resume the care of the patient today. Patient remains in the ICU intubated and sedated with pulmonary/critical care team following him closely. Patient with PEEP of 5 and FiO2 of 40%. He is developing fever today of 100.7. Sputum culture is positive for Corynebacterium. Currently is on Zosyn, because of his fever IV vancomycin was added today. His pro-calcitonin is elevated at 2.5. Other labs showing WBC of 1800, hemoglobin is stable at 7.7. Creatinine stable at 2.3. Chest x-ray showing similar changes as of last time with pneumonia and edema. [facility] was admitted for possible COPD exacerbation. Case discussed with pulmonary team Resume the care of the patient on 08/12/2021 Patient is still in the ICU monitored closely, he is status post extubation, is currently on baseline of 4 L/m, with minimal respiratory symptoms, actually patient is asked to go home, explained to him is not medically ready and he agrees to stay. He is hemodynamically stable, blood pressure is borderline 92/50, asymptomatic. Hemoglobin 7.8 compared to 7.4 upon admission, WBC is 21.8 and creatinine 2.6 while he is on hemodialysis. He is status post permacath in the right upper chest. Also has episodes of GI bleed, currently hemoglobin is stable. Eliquis on hold, surgical team with planned for EGD/colonoscopy on Monday. Continue with IV Eliquis He is covered with Zosyn for his Corynebacterium and serratia species Glucose controlled Patient refusing rehab Long-term prognosis is poor. As patient has complicated multiple medical problems on the top of his none strict compliance medical regiment and treatment plan Objective - Vital Signs Vital signs: Vital Signs Temp 98.0 F 08/12/21 04:00 Pulse 96 08/12/21 07:00 Resp 22 08/12/21 07:00 BP 109/53 08/12/21 07:00 Pulse Ox 90 L 08/12/21 07:00 Intake & Output 08/11/21 08/12/21 08/12/21 18:59 06:59 18:59 Intake Total 654.427 417.430 20 Output Total 2530 5 Balance -1875.573 417.430 15 Intake: IV 440 240 20 0.9 sodium chloride 130 120 10 carriers Lactated Ringers 1,000 ml 110 120 10 @ 20 mls/hr IV .Q24H [facility] Rx#:[id number] Piperacillin-Tazobactam 3 200 .375 gm In Sodium Chloride 0.9% 100 ml @ 25 mls/hr IVPB Q8HR [facility] Rx# :[id number] Intake, IV Titration 14.427 77.430 Amount Norepinephrine 8 mg In 14.427 77.430 Sodium Chloride 0.9% 250 ml @ 0.05 MCG/KG/MIN 9. 348 mls/hr IV .Q24H [facility] Rx#:[id number] Oral 200 100 Output: Urine 30 5 Hemodialysis 2500 Other: Voiding Method Indwelling Catheter Indwelling Catheter # Bowel Movements 1 ABP, PAP, CO, CI - Last Documented Arterial Blood Pressure 103/50 - Exam -GENERAL: The patient is awake and alert, generalized weakness. Not in distress HEENT: Pupils are round and equally reacting to light. EOMI. No scleral icterus. No conjunctival pallor. Normocephalic, atraumatic. No pharyngeal erythema. No thyromegaly. CARDIOVASCULAR: S1 and S2 present. No murmurs, rubs, or gallops. -PULMONARY: Chest is clear to auscultation, no wheezing or crackles. Decreased breath sounds on both sides with weak expiratory efforts. Right upper chest permacath ABDOMEN: Soft, nontender, nondistended, normoactive bowel sounds. No palpable organomegaly. MUSCULOSKELETAL: No joint swelling or deformity. EXTREMITIES: No cyanosis, clubbing, or pedal edema. Left leg wound with dressing. NEUROLOGICAL: Gross neurological examination did not reveal any focal deficits. SKIN: No rashes. no petechiae. - Labs CBC & Chem 7: 08/12/21 04:22 08/12/21 04:22 Labs: Abnormal Lab Results - Last 24 Hours (Table) 08/11/21 08/11/21 08/11/21 Range/Units 07:21 07:21 11:33 WBC 21.3 H (3.8-10.6) k/uL RBC 2.71 L (4.30-5.90) m/uL Hgb 8.2 L (13.0-17.5) gm/dL Hct 25.3 L (39.0-53.0) % RDW 17.8 H (11.5-15.5) % Neutrophils # (Manual) (1.3-7.7) k/uL Monocytes # (Manual) (0-1.0) k/uL Metamyelocytes # (Man) (0) k/uL Myelocytes # (Manual) (0) k/uL BUN 63 H (9-20) mg/dL Creatinine 4.18 H (0.66-1.25) mg/dL Glucose 163 H (74-99) mg/dL POC Glucose (mg/dL) 136 H (75-99) mg/dL 08/11/21 08/11/21 08/12/21 Range/Units 12:10 18:11 00:11 WBC 29.0 H (3.8-10.6) k/uL RBC 2.96 L (4.30-5.90) m/uL Hgb 8.9 L (13.0-17.5) gm/dL Hct 27.4 L (39.0-53.0) % RDW 17.8 H (11.5-15.5) % Neutrophils # (Manual) 23.40 H (1.3-7.7) k/uL Monocytes # (Manual) 2.61 H (0-1.0) k/uL Metamyelocytes # (Man) 0.58 H (0) k/uL Myelocytes # (Manual) 0.87 H (0) k/uL BUN (9-20) mg/dL Creatinine (0.66-1.25) mg/dL Glucose (74-99) mg/dL POC Glucose (mg/dL) 104 H 62 L (75-99) mg/dL 08/12/21 08/12/21 08/12/21 Range/Units 00:48 04:22 04:22 WBC 21.8 H (3.8-10.6) k/uL RBC 2.52 L (4.30-5.90) m/uL Hgb 7.8 L (13.0-17.5) gm/dL Hct 23.7 L (39.0-53.0) % RDW 17.7 H (11.5-15.5) % Neutrophils # (Manual) (1.3-7.7) k/uL Monocytes # (Manual) (0-1.0) k/uL Metamyelocytes # (Man) (0) k/uL Myelocytes # (Manual) (0) k/uL BUN 39 H (9-20) mg/dL Creatinine 2.63 H (0.66-1.25) mg/dL Glucose 70 L (74-99) mg/dL POC Glucose (mg/dL) 63 L (75-99) mg/dL Microbiology - Last 24 Hours (Table) 08/09/21 20:30 Gram Stain - Preliminary Sputum Sputum Culture - Preliminary Gram Neg Bacilli 08/09/21 09:20 Blood Culture - Preliminary Blood No Growth after 48 hours Assessment and Plan Assessment: - Recurrent aspiration leading to respiratory distress and status post extubation. Sputum culture is growing Corynebacterium and Adama - acute diastolic congestive heart failure secondary to cardiorenal - Acute COPD exacerbation - Acute kidney injury on stage IV CKD, started on HD during this admission - Normochromic normocytic anemia with suspected GI bleed, recurrent - anasarca secondary to cardiorenal syndrome as mentioned above. Hemodialysis daily per nephrology for now. Improved - Anemia of chronic disease, with recent drop in hemoglobin. Rule out GI bleed - Loose bowel movement, C. diff colitis ruled out -Hypomagnesemia magnesium will be replaced per Protocol -Chronic respiratory failure secondary to COPD , 5 L of oxygen at home. There is evidence of acute exacerbation -Possible pneumonia, hospital-acquired with elevated pro-calcitonin 0.5 -Hypertension -Hyperlipidemia -Hypothyroidism -History of recent fall and fracture to the left wrist with malunion noted -Paroxsymal atrial fibrillation presently rate controlled patient does have sick sinus syndrome history patient has a pacemaker -Type 2 diabetes mellitus Plan: This is a pleasant 65 years old male presents with acute kidney injury and CHF. Started on hemodialysis. Continue continue with incentive spirometry and oxygen therapy at 4 L/m Continue with Zosyn and discontinue vancomycin. systemic steroids Continue with hemodialysis per nephrology team. Patient will need permacath, vascular surgery paged disContinue with home dose Eliquis 2.5 mg(on hold for possible bi bleed). Surgery team plan for EGD/colonoscopy on Monday Continue with insulin and ISS. Continue with Levemir Consult wound care Consult GI ( not available during this week in this facility ) Labs and medication were reviewed.. Continue same treatment. Continue with symptomatic treatment. Resume home medication. Monitor lytes and vitals. DVT and GI prophylaxis. Further recommendation sas per clinical course of the patient DVT prophylaxis: Eliquis (On hold ) GI Prophylaxis: Ppi PT/OT: Recommended subacute rehab once he improves, delinquency prevention social worker consult Prognosis is guarded
[2021-08-12] MEDS ORDERED: LEVOFLOXACIN 250MG-D5W PMX 250 MG in DEXTROSE/WATER 1 50ML.BAG IVPB SCH (18:30)
[2021-08-12 20:12] LABS: Glucose,Whole Blood 223 mg/dL (75-99)
[2021-08-13] MEDS: HYDROmorphone 1 MG/ML 1 ML SYRINGE IVP PRN ×4 (02:50→20:32)
[2021-08-13] MEDS: IPRATROPIUM-ALBUTEROL 3 ML NEB INHALATION SCH ×5 (03:39→20:14)
[2021-08-13 06:30] LABS: Glucose,Whole Blood 120 mg/dL (75-99)
[2021-08-13] MEDS: INSULIN DETEMIR (LEVEMIR) 100 UNIT/ML SYR SQ SCH (06:31)
[2021-08-13] MEDS: LEVOTHYROXINE 25 MCG TAB PO SCH (06:31)
[2021-08-13] MEDS: INSULIN ASPART (NovoLOG) 100 UNIT/ML VIAL SQ SCH ×4 (06:31→20:33)
--- NOTE | 2021-08-13 07:31 | P.PN ---
Subjective Patient is a 65-year-old male with multiple medical problems multiple comorbidities was recently discharged from the hospital after he was treated for volume or note from chronic gastritis function and the cardiorenal syndrome. Patient was discharged to rehab facility 2 days into rehab related patient patient went home and started having shortness of breath volume overload diffuse anasarca and pedal edema. Patient is found to be in significant volume or lower chest x-ray showed bilateral pleural effusion although this appears to have improved compared to last admission when he had thoracentesis. Patient has significant lab abnormalities including creatinine going up to around 10 potassium 6.2 very low magnesium of 0.9 nephrology was consulted. As per nephrology patient will lead hemodialysis, consult to vascular surgery was placed for hemodialysis catheter placement and patient will be subsequently started on hemodialysis. Patient does have advanced COPD uses about 5 L of oxygen. 07/28/2021 Patient is seen and evaluated and follow-up has received hemodialysis catheter and is receiving hemodialysis today. Kidney functions improving and patient reports to producing more urine. Current creatinine is 7.6 today potassium is 5 .5 and sodium is 139. Blood sugars have been more manageable and will continue current regimen. Patient continues on 5 L via nasal cannula which is chronic for him. Nephrology following closely and will continue with dialysis daily at this time. Patient is also maintained on IV Lasix and will continue. Patient denies chest pain, shortness of breath, or palpitations. Patient is afebrile. No nausea or vomiting noted and patient is tolerating diet. subjective: resume the care of the pt today 07/29/2021 This is a pleasant 65 years old male with stage IV chronic kidney disease presents with fatigue and worsening kidney function requiring hemodialysis which is a started during this admission after a catheter placed in the right groin. He is hemodynamically stable, he is on 5 L per minute of oxygen but saturating 98-99%, we will try to titrate his oxygen down. No much dyspnea or cough and while he is lying flat in bed but he feels very weak all over. His been having recurrent nausea vomiting, mainly worked first of this morning but he is fully awake with no headache. No abdominal pain. He is hemodynamically stable, hemoglobin 7.4 with evidence of chronic anemia, also he is on ferrous sulfate once daily at home. This currently on home dose of liquids 2.5 and IV Lasix 60 mg twice daily. Ultrasound of the abdomen showing no hydronephrosis or nephrolithiasis. And chest x-ray showed small right pleural effusion with atelectasis. Also patient has chronic left leg wound secondary to a fall about 3 months ago. Patient refused to take the dressing off. We consulted once care. Patient is on Zofran already, we added Phenergan. We ordered a KUB. Also ask for PT OT evaluation. WOUND TEAM CONSULT 07/30/2021 Patient awake alert, no much tachypnea but he stayed in bed most of the time, he still at baseline of 4 L/m of oxygen. However patient reports coughing a lot and making a lot of phlegm, he said he has been diagnosed with pneumonia 2 weeks ago. Actually chest x-ray from yesterday showing bilateral infiltrate, I reviewed the chest x-ray by myself and it looks worse compared to admission despite starting him on a new hemodialysis and receiving Lasix for his CHF. Also we checked his pro-calcitonin and it is elevated at 0.5 for which is consistent with infection with this constellation of CHF, chest x-ray findings and elevated pro-calcitonin. Most likely and high suspicion for hospital acquired pneumonia and patient is a started on Zosyn last night. We going to repeat chest x-ray tomorrow morning. Bladder scan show minimal urine, Flomax was discontinued. Wound care R following the patient for his left foot wound. 07/31/2021 Patient seen in bed most of the time, physical therapy recommended rehab, I talked to him today about this recommendation and he is refusing now. He still on 4 L oxygen nasal cannula which looks like he is this is his baseline however he has coarse crepitation looks like it comes from secretion with decreased air entry on both sides, patient confirms to me he has history of COPD. However I would recommend he follow up with a mailing section clerk as an outpatient. Repeat chest x-ray today showing no worsening infiltrate however it shows Similar multifocal airspace opacities. Correlate for congestive heart failure and/or diffuse airspace disease in the meantime we will keep him on Zosyn and check a pro-calcitonin tomorrow, if improvement we may consider oral antibiotic. However started on Solu-Medrol 60 mg 3 times a day today. He is kept on IV Lasix and hemodialysis I discussed the case with nephrology team and they recommended the permacath prior to discharge, discussed with bed side nurse to inform surgical vascular team. Workup showing anemia of chronic disease and he was started on arenasept by skin care therapist. 08/01/2021 Patient clinically is doing well generally, he is breathing quietly, he is tolerating diet well, no bowel movement today Nephrology team on the case and plan for him to get the permacath by vascular surgery team hopefully tomorrow. Also his evidence of COPD exacerbation which is improving therefore Solu-Medrol our to 40 mg twice a day. Pro-calcitonin still elevated 0.68, currently on Zosyn, sputum cultures pending. However patient only having cough and phlegm which is pending as above. Saturation is 4-5 L/m which is his baseline. Rehab is recommended but patient was reluctant so far. 08/02/2021 Patient is lying in bed most of the time, his breathing is at baseline and is i mproving with less crepitation but he is coughing a lot . His oxygen requirement at baseline on 4 L/m which is his home dose. his hemoglobin dropped today to 5.7, his workup showing anemia of chronic disease despite being an IV and oral iron, workup showing anemia of chronic disease but cannot rule out GI bleed especially he's on liquids which is on hold today before going for procedure. Therefore we going to consult GI service in any way. Occult blood in his stool test is requested. Patient states he has 3- 4 loose bowel movements, we will check C. diff as well. No abdominal pain or vomiting. Patient is going for permacath placement today and hemodialysis tomorrow, he got hemodialysis this morning. Patient adamantly refusing to go to rehab despite recommendation for medical and nephrology team on several occasions. Patient and make his own decisions. 08/03/2021 Patient now wake and breathing comfortably at baseline, he is less coughing compared to yesterday after started on Robitussin D but today he wants to, more so I can bring stuff up out of his chest, therefore we change his Robitussin into when necessary dosing and he was informed. No chest pain or other symptoms. However there was some concerns of pulmonary congestion there for his colonoscopy/EGD for tomorrow is rescheduled until . He is placed on liquid diet therefore we lowered his Levemir form 25 units which is home dose down to 10 units tonight. His chest x-ray looks the same Reticulocyte count is 1.5 but he got one unit of transfusion. Currently hemoglobin is holding at 8.1, glucose control, magnesium normal at 2.2, sodium at 1:30 and he is saturating at 4-5 L/m which is home dose. Diarrhea stopped, occult blood in stool is negative and C. diff negative. 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 in May, he supposed to follow up with his orthopedic doctor Wilmer however he was noncompliant, repeat left wrist x-ray looks the same, orthopedic input is appreciated they recommended no surgical intervention but follow-up outpatient while he is in splint Eliquis remains on hold after EGD/colonoscopy for sever anemia and possible GI bleed 08/04/2021 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 Repeat CT of the chest today showed no evidence of pulmonary embolism and there is extensive bilateral infiltrates concerning for aspiration. Currently he is saturating 98% on FiO2 of 50% and respiratory rate of 26. Labs reviewed and showing WBC of 14.6, creatinine down to 1.6, hemoglobin 10, potassium after placement 3.4. Patient labs reviewed remains on Zosyn, Pro-calcitonin is improving down to 0.3 prior to this episode of aspiration. Patient remains afebrile for now. His Eliquis remains on hold in view of his history of A. fib due for suspected GI bleed. Patient remains on Zosyn, Protonix and insulin sliding scale. Also patient placed on Lasix 80 mg daily and receives an extra dose this morning. While insulin 10 units is held 08/05/2021 Patient remains in the ICU sedated and intubated. He is off Levophed today. Metoprolol was held yesterday and his blood pressure improved, and this morning 87/54 and his rate was sinus rhythm at 93, no evidence of A. fib and RVR given his history of similar problem. Hemoglobin 7.9, which is known he is anemic, his Eliquis is still on hold for possible GI bleed with planned to undergo EGD/colonoscopy at certain point per GI team her on the case. Creatinine went up to 0.8. He is undergoing hemodialysis. Chest x-ray showed some improvement by a radiologist Remains on IV Zosyn for his recurrent aspiration pneumonia. Also Lasix was held. His prognosis remains guarded 08/09/2021, resume the care of the patient today. Patient remains in the ICU intubated and sedated with pulmonary/critical care team following him closely. Patient with PEEP of 5 and FiO2 of 40%. He is developing fever today of 100.7. Sputum culture is positive for Corynebacterium. Currently is on Zosyn, because of his fever IV vancomycin was added today. His pro-calcitonin is elevated at 2.5. Other labs showing WBC of 1800, hemoglobin is stable at 7.7. Creatinine stable at 2.3. Chest x-ray showing similar changes as of last time with pneumonia and edema. [facility] was admitted for possible COPD exacerbation. Case discussed with pulmonary team Resume the care of the patient on 08/12/2021 Patient is still in the ICU monitored closely, he is status post extubation, is currently on baseline of 4 L/m, with minimal respiratory symptoms, actually patient is asked to go home, explained to him is not medically ready and he agrees to stay. He is hemodynamically stable, blood pressure is borderline 92/50, asymptomatic. Hemoglobin 7.8 compared to 7.4 upon admission, WBC is 21.8 and creatinine 2.6 while he is on hemodialysis. He is status post permacath in the right upper chest. Also has episodes of GI bleed, currently hemoglobin is stable. Eliquis on hold, surgical team with planned for EGD/colonoscopy on Monday. Continue with IV Eliquis He is covered with Zosyn for his Corynebacterium and serratia species Glucose controlled Patient refusing rehab Long-term prognosis is poor. As patient has complicated multiple medical problems on the top of his none strict compliance medical regiment and treatment plan 08/13/2021 Patient awake with no respiratory distress today, he is saturating high 90s on 4 L oxygen which is his home dose. He is hemodynamically stable. Glucose is controlled. Lap still pending. Chest x-ray: Report is pending, I reviewed myself that looks similar infiltrates or slightly better with new left pleural effusion. Patient is going for hemodialysis today He is kept on IV Zosyn for now. Also he is on a clear liquid diet with anticipation for endoscopy by surgery team on this coming Monday for his anemia and possible GI bleed Objective - Vital Signs Vital signs: Vital Signs Temp 98.6 F 08/12/21 16:00 Pulse 77 08/13/21 07:00 Resp 20 08/13/21 07:00 BP 113/58 08/13/21 07:00 Pulse Ox 94 L 08/13/21 07:00 Intake & Output 08/12/21 08/13/21 08/13/21 18:59 06:59 18:59 Intake Total 1000 370 Output Total 21 9 Balance 979 361 Weight 94.3 kg 94 kg Intake: IV 300 130 0.9 sodium chloride 120 130 carriers Lactated Ringers 1,000 ml 80 @ 20 mls/hr IV .Q24H [facility] Rx#:[id number] Piperacillin-Tazobactam 3 100 .375 gm In Sodium Chloride 0.9% 100 ml @ 25 mls/hr IVPB Q8HR [facility] Rx# :[id number] Oral 700 Tube Feeding 240 Output: Urine 21 9 Other: Voiding Method Indwelling Catheter Indwelling Catheter ABP, PAP, CO, CI - Last Documented Arterial Blood Pressure 103/50 - Exam -GENERAL: The patient is awake and alert, generalized weakness. Not in distress HEENT: Pupils are round and equally reacting to light. EOMI. No scleral icterus. No conjunctival pallor. Normocephalic, atraumatic. No pharyngeal erythema. No thyromegaly. CARDIOVASCULAR: S1 and S2 present. No murmurs, rubs, or gallops. -PULMONARY: Chest is clear to auscultation, no wheezing or crackles. Decreased breath sounds on both sides with weak expiratory efforts. Right upper chest permacath ABDOMEN: Soft, nontender, nondistended, normoactive bowel sounds. No palpable organomegaly. MUSCULOSKELETAL: No joint swelling or deformity. EXTREMITIES: No cyanosis, clubbing, or pedal edema. Left leg wound with dressing. NEUROLOGICAL: Gross neurological examination did not reveal any focal deficits. SKIN: No rashes. no petechiae. - Labs CBC & Chem 7: 08/12/21 04:22 08/12/21 04:22 Labs: Abnormal Lab Results - Last 24 Hours (Table) 08/12/21 08/12/21 08/12/21 Range/Units 11:54 17:07 20:11 POC Glucose (mg/dL) 116 H 167 H 223 H (75-99) mg/dL 08/13/21 Range/Units 06:29 POC Glucose (mg/dL) 120 H (75-99) mg/dL Microbiology - Last 24 Hours (Table) 08/09/21 09:20 Blood Culture - Preliminary Blood No Growth after 72 hours 08/09/21 20:30 Gram Stain - Final Sputum Sputum Culture - Final Serratia marcescens Assessment and Plan Assessment: - Recurrent aspiration leading to respiratory distress and status post extubat ion. Sputum culture is growing Corynebacterium and Adama - acute diastolic congestive heart failure secondary to cardiorenal - Acute COPD exacerbation - Acute kidney injury on stage IV CKD, started on HD during this admission - Normochromic normocytic anemia with suspected GI bleed, recurrent - anasarca secondary to cardiorenal syndrome as mentioned above. Hemodialysis daily per nephrology for now. Improved - Anemia of chronic disease, with recent drop in hemoglobin. Rule out GI bleed - Loose bowel movement, C. diff colitis ruled out -Hypomagnesemia magnesium will be replaced per Protocol -Chronic respiratory failure secondary to COPD , 5 L of oxygen at home. There is evidence of acute exacerbation -Possible pneumonia, hospital-acquired with elevated pro-calcitonin 0.5 -Hypertension -Hyperlipidemia -Hypothyroidism -History of recent fall and fracture to the left wrist with malunion noted -Paroxsymal atrial fibrillation presently rate controlled patient does have sick sinus syndrome history patient has a pacemaker -Type 2 diabetes mellitus Plan: This is a pleasant 65 years old male presents with acute kidney injury and CHF. Started on hemodialysis. Continue continue with incentive spirometry and oxygen therapy at 4 L/m Continue with Zosyn and discontinue vancomycin. systemic steroids Continue with hemodialysis per nephrology team. Patient will need permacath, vascular surgery paged disContinue with home dose Eliquis 2.5 mg(on hold for possible bi bleed). Surgery team plan for EGD/colonoscopy on Monday Continue with insulin and ISS. Continue with Levemir Consult wound care Consult GI ( not available during this week in this facility ) Labs and medication were reviewed.. Continue same treatment. Continue with symptomatic treatment. Resume home medication. Monitor lytes and vitals. DVT and GI prophylaxis. Further recommendation sas per clinical course of the patient DVT prophylaxis: Eliquis (On hold ) GI Prophylaxis: Ppi PT/OT: Recommended subacute rehab once he improves, social media marketing analyst consult Prognosis is guarded
[2021-08-13 07:43] LABS: Anisocytosis Slight; Basophils # (A) 0.1 k/uL (0-0.2); Basophils % (A) 1 %; Eosinophils # (A) 0.1 k/uL (0-0.7); Eosinophils % (A) 1 %; HCT 23.8 % (39.0-53.0); HGB 7.3 gm/dL (13.0-17.5); Hypochromasia Marked; Lymphocytes # (A) 1.1 k/uL (1.0-4.8); Lymphocytes % (A) 6 %; MCH 29.4 pg (25.0-35.0); MCHC 30.5 g/dL (31.0-37.0); MCV 96.4 fL (80.0-100.0); Macrocytosis Slight; Mean Platelet Volume 8.6; Monocytes # (A) 0.8 k/uL (0-1.0); Monocytes % (A) 4 %; Neutrophils # (A) 16.3 k/uL (1.3-7.7); Neutrophils % (A) 88 %; Platelet Count 261 k/uL (150-450); Poikilocytosis Moderate; RBC 2.47 m/uL (4.30-5.90); RDW 16.9 % (11.5-15.5); WBC 18.5 k/uL (3.8-10.6)
[2021-08-13] MEDS: BUDESONIDE 1 MG/2 ML NEBU INHALATION SCH ×2 (07:51→20:14)
[2021-08-13] MEDS: FORMOTEROL FUMARATE 20 MCG/2 ML NEBU INHALATION SCH ×2 (07:51→20:14)
[2021-08-13] MEDS: NOREPINEPHRINE 8 MG in SODIUM CHLORIDE 0.9% 250 ML IV SCH (08:20)
[2021-08-13 08:24] LABS: Calcium 9.2 mg/dL (8.4-10.2); Potassium 4.3 mmol/L (3.5-5.1)
[2021-08-13] MEDS: ASCORBIC ACID 500 MG TAB PO SCH ×2 (08:27→20:32)
[2021-08-13] MEDS: METOPROLOL TARTRATE 25 MG TAB PO SCH ×2 (08:28→20:32)
[2021-08-13] MEDS: CHOLECALCIFEROL 25 MCG (1000 IU) TABLET PO SCH (08:28)
[2021-08-13] MEDS: PANTOPRAZOLE 40 MG/10 ML VIAL IV SCH (08:28)
[2021-08-13] MEDS: PIPERACILLIN-TAZOBACTAM 3.375 GM in SODIUM CHLORIDE 0.9% 100 ML IVPB SCH (08:32)
--- NOTE | 2021-08-13 08:53 | XR ---
EXAMINATION TYPE: XR chest 1V portable DATE OF EXAM: 08/13/2021 COMPARISON: 08/10/2021 HISTORY: Tube placement TECHNIQUE: Single frontal view of the chest is obtained. FINDINGS: Cardiac device seen and there is a dialysis catheter stable. ET and NG tube no longer seen . Interstitial pattern with bilateral infiltrate and pleural effusion are stable. Atherosclerotic ministerio nge aorta and mild cardiomegaly. No pneumothorax. Arthropathy of the shoulders. IMPRESSION: 1. Correlate for possible CHF otherwise consider bilateral pneumonia with small effusion.
--- NOTE | 2021-08-13 10:14 | P.PN ---
Subjective Patient is seen for follow-up for acute kidney injury and top of chronic kidney disease Patient has underlying chronic kidney disease stage IV with recent worsening of his renal function since May 2021. Creatinine increased from 1.4 on 05/24/[address] up to 3.1 on 07/05/2021. Patient had acute kidney injury during his hospitalization last month and serum creatinine on discharge was 3.0. Acute kidney injury was mostly cardiorenal. Patient was diuresed and discharged on torsemide. He was admitted to the hospital now with a creatinine of around 10.2. Patient was started on dialysis on 07/27/2021. Volume status has improved significantly with dialysis. Patient is seen in the ICU. He is comfortable, awake. Not in any acute distress. He is maintained on 4 L nasal cannula Patient denies any significant complaints today. Objective - Vital Signs Vital signs: Vital Signs Temp 98.2 F 08/13/21 08:00 Pulse 59 L 08/13/21 09:00 Resp 23 08/13/21 09:00 BP 118/65 08/13/21 09:00 Pulse Ox 97 08/13/21 09:00 Intake & Output 08/12/21 08/13/21 08/13/21 18:59 06:59 18:59 Intake Total 1000 370 Output Total 21 9 Balance 979 361 Weight 94.3 kg 94 kg Intake: IV 300 130 0.9 sodium chloride 120 130 carriers Lactated Ringers 1,000 ml 80 @ 20 mls/hr IV .Q24H [facility] Rx#:[id number] Piperacillin-Tazobactam 3 100 .375 gm In Sodium Chloride 0.9% 100 ml @ 25 mls/hr IVPB Q8HR [facility] Rx# :[id number] Oral 700 Tube Feeding 240 Output: Urine 21 9 Other: Voiding Method Indwelling Catheter Indwelling Catheter ABP, PAP, CO, CI - Last Documented Arterial Blood Pressure 103/50 - Exam Patient is awake, no acute distress, alert and oriented 3 No acute distress Bilateral breath sounds are heard Abdomen is soft nontender Examination lower extremities shows chronic skin changes. 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 - Labs CBC & Chem 7: 08/13/21 07:24 08/13/21 07:24 Labs: Abnormal Lab Results - Last 24 Hours (Table) 0408/12/21 08/12/21 Range/Units 11:54 17:07 20:11 WBC (3.8-10.6) k/uL RBC (4.30-5.90) m/uL Hgb (13.0-17.5) gm/dL Hct (39.0-53.0) % MCHC (31.0-37.0) g/dL RDW (11.5-15.5) % Neutrophils # (1.3-7.7) k/uL Carbon Dioxide (22-30) mmol/L BUN (9-20) mg/dL Creatinine (0.66-1.25) mg/dL Glucose (74-99) mg/dL POC Glucose (mg/dL) 116 H 167 H 223 H (75-99) mg/dL 08/13/21 08/13/21 08/13/21 Range/Units 06:29 07:24 07:24 WBC 18.5 H (3.8-10.6) k/uL RBC 2.47 L (4.30-5.90) m/uL Hgb 7.3 L (13.0-17.5) gm/dL Hct 23.8 L (39.0-53.0) % MCHC 30.5 L (31.0-37.0) g/dL RDW 16.9 H (11.5-15.5) % Neutrophils # 16.3 H (1.3-7.7) k/uL Carbon Dioxide 21 L (22-30) mmol/L BUN 41 H (9-20) mg/dL Creatinine 4.32 H (0.66-1.25) mg/dL Glucose 132 H (74-99) mg/dL POC Glucose (mg/dL) 120 H (75-99) mg/dL Microbiology - Last 24 Hours (Table) 08/09/21 09:20 Blood Culture - Preliminary Blood No Growth after 72 hours 08/09/21 20:30 Gram Stain - Final Sputum Sputum Culture - Final Serratia marcescens Assessment and Plan Assessment: 1. Acute kidney injury most likely ATN, currently nonoliguric. However given the significantly elevated BUN/creatinine creatinine and volume overload with hyperkalemia, started on hemodialysis on 07/27/2021. No obstruction on ultrasound. UA shows trace protein and moderate blood. Serologies ordered to rule out underlying GN. Mostly all workup negative except for slightly decreased C3 levels. Not a candidate for kidney biopsy. 2. Chronic kidney disease NKF stage IIIB secondary to nephrosclerosis with previous creatinine as low as 1.4 in May 2021 but most recently staying as high as 3.1-3.0 on 07/07/2021 with episodes of acute kidney injury during his hospitalizations for CHF and pneumonia. 3. CHF exacerbation, diastolic 4. Volume overload, improved significantly since admission.. 5. Hyperkalemia associated with acute kidney injury, no urine retention noted, improved post dialysis 6. Acute hypercapnic respiratory failure, status post extubation. Being treated for pneumonia. Also component of volume overload 7. Paroxysmal A. fib with controlled ventricular response status post pacemaker Plan: Hemodialysis today. Continue Maryam
[2021-08-13] MEDS: CEFEPIME 1 GM in SODIUM CHLORIDE 0.9% 50 ML IVPB SCH ×2 (10:38→20:32)
[2021-08-13 11:58] LABS: Glucose,Whole Blood 172 mg/dL (75-99)
--- NOTE | 2021-08-13 12:19 | P.PN ---
Subjective Progress Note Date: 08/13/21 CHIEF COMPLAINT: GI bleed HISTORY OF PRESENT ILLNESS: Patient remains in the ICU. He has multiple medical problems. He's had no further bloody bowel movements. He is tolerating clear liquids. He is afebrile. WBC is 18.5 hemoglobin trending down from 7.8-7.3 platelets 261 creatinine 4.2 He did have a tagged RBC scan no evidence of acute GI bleed. Patient has received a total of 5 units of blood during his admission. He denies any abdominal pain. Denies any nausea vomiting. PHYSICAL EXAM: VITAL SIGNS: Reviewed. GENERAL: Well-developed in no acute distress. HEENT: No sclera icterus. Extraocular movements grossly intact. Moist buccal mucosa. Head is atraumatic, normocephalic. ABDOMEN: Soft. Nondistended. Nontender. NEUROLOGIC: Alert and oriented. Cranial nerves II through XII grossly intact. ASSESSMENT: 1. Acute GI bleed 2. Acute blood loss anemia PLAN: -Plan for EGD and colonoscopy on 08/16/[address] tee -Continue with diet -Continue to monitor hemoglobin -Continue supportive care Physician Monomer Purification Operator note has been reviewed by physician. Signing provider agrees with the documented findings, assessment, and plan of care. Objective - Vital Signs Vital signs: Vital Signs Temp 98.2 F 08/13/21 08:00 Pulse 60 08/13/21 12:00 Resp 27 H 08/13/21 12:00 BP 120/59 08/13/21 12:00 Pulse Ox 96 08/13/21 12:00 Intake & Output 08/12/21 08/13/21 08/13/21 18:59 06:59 18:59 Intake Total 1000 370 130 Output Total 21 9 10 Balance 979 361 120 Weight 94.3 kg 94 kg Intake: IV 300 130 80 0.9 sodium chloride 120 130 30 carriers Lactated Ringers 1,000 ml 80 @ 20 mls/hr IV .Q24H [facility] Rx#:[id number] Piperacillin-Tazobactam 3 100 50 .375 gm In Sodium Chloride 0.9% 100 ml @ 25 mls/hr IVPB Q8HR [facility] Rx# :[id number] Intake, IV Titration 50 Amount Cefepime 1 gm In Sodium 50 Chloride 0.9% 50 ml @ 12. 5 mls/hr IVPB Q12HR [facility] Rx#:[id number] Oral 700 Tube Feeding 240 Output: Urine 21 9 10 Other: Voiding Method Indwelling Catheter Indwelling Catheter ABP, PAP, CO, CI - Last Documented Arterial Blood Pressure 103/50 - Labs CBC & Chem 7: 08/13/21 07:24 08/13/21 07:24 Labs: Abnormal Lab Results - Last 24 Hours (Table) 08/12/21 08/12/21 08/13/21 Range/Units 17:07 20:11 06:29 WBC (3.8-10.6) k/uL RBC (4.30-5.90) m/uL Hgb (13.0-17.5) gm/dL Hct (39.0-53.0) % MCHC (31.0-37.0) g/dL RDW (11.5-15.5) % Neutrophils # (1.3-7.7) k/uL Carbon Dioxide (22-30) mmol/L BUN (9-20) mg/dL Creatinine (0.66-1.25) mg/dL Glucose (74-99) mg/dL POC Glucose (mg/dL) 167 H 223 H 120 H (75-99) mg/dL 08/13/21 08/13/21 08/13/21 Range/Units 07:24 07:24 11:56 WBC 18.5 H (3.8-10.6) k/uL RBC 2.47 L (4.30-5.90) m/uL Hgb 7.3 L (13.0-17.5) gm/dL Hct 23.8 L (39.0-53.0) % MCHC 30.5 L (31.0-37.0) g/dL RDW 16.9 H (11.5-15.5) % Neutrophils # 16.3 H (1.3-7.7) k/uL Carbon Dioxide 21 L (22-30) mmol/L BUN 41 H (9-20) mg/dL Creatinine 4.32 H (0.66-1.25) mg/dL Glucose 132 H (74-99) mg/dL POC Glucose (mg/dL) 172 H (75-99) mg/dL Microbiology - Last 24 Hours (Table) 08/09/21 09:20 Blood Culture - Preliminary Blood No Growth after 96 hours 08/09/21 20:30 Gram Stain - Final Sputum Sputum Culture - Final Serratia marcescens
--- NOTE | 2021-08-13 12:52 | P.PN ---
Subjective Progress Note Date: 08/13/21 On today's evaluation of 08/09/2021, see the patient for a follow-up. The patient remains intubated on a mechanical ventilator and the patient remains sedated. This morning, the patient is on propofol at 45 [place] respiratory per minute. The patient is an assist-control mode of mechanical ventilation at the rate of 26, tidal volume of 450, FiO2 of 30% with a PEEP of 5. The patient's blood gases from today shows a pH of 7.31 with a pCO2 of 51 and pO2 of 100. The chest x-ray was showing a left-sided consolidation which has recovered and the chest x-ray from today showing cardiomegaly and bilateral small pleural effusions. ET tube is in a good location. The patient's cardiac rhythm is sinus and the patient is on low-dose norepinephrine infusion running at 0.05 micrograms per kilogram per minute for hemodynamic support. The patient currently is also undergoing hemodialysis. The patient has a right-sided dialysis catheter in place. Noted the patient's last hemodialysis session was on 08/07/2021 and a total of 2 L of fluid was removed. He does have some liquidy stool and the patient has a fecal management system in place. The patient is receiving enteral feeding for nutritional support and the patient is currently on Nepro at the rate of 33 mL an hour. The patient has a right femoral triple-lumen catheter in place and a temporary dialysis catheter in his right IJ. Earlier this morning, he did spike a temperature. Based on that, cultures were sent including blood and sputum and the patient was covered with accommodation Zosyn and vancomycin. Pending further cultures. At the same time, I instructed the nursing staff to proceed with this point to proceed with a sedation holiday and assess the patient's mental status. On 08/10/2021, the patient is being seen for a follow-up. The patient remains intubated on a mechanical ventilator. On yesterday's evaluation, the patient was gradually taken off the sedation the patient showed adequate mentation. At one point, we thought that his pupils were unequal and based on that a CAT scan of the brain was done that showed no acute abnormalities. After discontinuing the propofol, the patient overnight had to be placed on low-dose Precedex which is currently running at 0.3 mcg/kg per minute. The patient is also off norepinephrine infusion since 9 PM yesterday. This morning, the patient is arousable. He is awake. He is on assist control mode of mechanical ventilation at the rate of 26 with a tidal volume of 450 and the rate of 26 with an FiO2 of 40% and a PEEP of 5. Blood gases showed a pH of 7.34 with a pCO2 of 48 and pO2 of 78 chest x-ray findings are essentially unchanged. The patient is afebrile for now. He did spike a temperature yesterday and the patient was given blood cultures and the patient was given a combination of Zosyn and vancomycin. Currently is afebrile and her most recent temperature is 90.9F. His white cell count is at 10.7 with hemoglobin of 6.9 and the patient's sodium level is at 138 with a potassium of 5 and a BUN of 40 with a creatinine of 3.0. The patient's underwent hemodialysis yesterday and the patient had ultrafiltration. He is on Nepro for enteral feeding and nutritional support at the rate of 20 mL an hour. He has a fecal management system in place and output is minimal at this point in time. Based on all this, the patient was given a sedation holiday. Weaning parameters were checked and the patient is being considered for possible extubation to BiPAP at a later stage and this large dependent on his ability to undergo this point is breathing trial. On 08/11/2021, the patient is being seen for a follow-up. The patient was weaned off the mechanical ventilator and the patient was extubated yesterday without any major difficulties. The patient however started having episodes of GI bleed as of yesterday. The patient had several bouts of lower GI bleed when he was passing abdominal color stool on multiple occasions. The hemoglobin was being monitored very regularly and the patient remained essentially hemodynamically stable. Hemoglobin dropped as low as 6.5. Note that during his ongoing GI bleed, the patient was given a total of 4 units of packed RBC and hemoglobin this morning is up to 8.2. He did have a bloody bowel movement yesterday evening and none since. The patient remains nothing by mouth. The patient remains on IV Protonix. The patient has a normal coagulation profile. He has not taken anticoagulation since the beginning of this current admission. Based on his ongoing bleed, general surgery was consulted and the patient underwent a GI bleeding scan, a red blood cell Scan that showed no evidence of any acute bleeding. Meanwhile, he is awake and alert his communicating. No cervical respiratory distress. No chest pain she is respiratory difficulties. No chest pain. No altered mentation. No fever. The patient remains on Zosyn. The patient was a result of 21 from 29. Noted the patient developed acute leukocytosis over the past 24 hours and he seems to be improving. The rest of the electrolytes are all within normal limits. BUN is at 63 with a creatinine of 4.8. Vancomycin trough level is 23.4 and patient is currently on vancomycin. The patient is on Levemir insulin and he is receiving 30 units daily along with ascites care coverage. Blood sugars under adequate control for now. No focal neurological deficits. He is weak and debilitated. He also has a stage II ulcer over the left foot On 08/12/2021, the patient is being seen for a follow-up. The patient is doing well and we haven't experienced any active GI bleeding over the past 12-24 hours. Hemoglobin stable at 7.8. Yesterday's hemoglobin was 8.9 after being given a unit of packed RBC. Overall, the patient received a total of 5 units of packed RBC. He is hungry and is requesting some oral intake. He remains on ox ygen 4 L per minute nasal cannula. Sputum is positive for gram-negative bacillus. He has a congested cough. Unable to bring up much sputum. He is currently off pressors. He underwent hemodialysis yesterday with ultrafiltration. On today's blood work, the white second slightly elevated at 21, comparable to yesterday and the platelet count is 229. The sodium is at 132 with a potassium level of 3.7 and the BUN of 39 with a creatinine of 2.6. No altered mentation. Remains on IV Zosyn. Vancomycin trough was also checked and vancomycin can be essentially discontinued for now. No other significant events overnight otherwise. He is on no anticoagulants. The patient remains in normal sinus rhythm. General surgeries on the case. No plans for endoscopy at this point in time. 08/13/2021, [place] is still congested and he is unable to bring up much of sputum. He continues to have a congested cough and he was given a suctioning device to aspirate his mouth episodically during the day. The sputum cultures came back positive for Serratia marcescens and the bacteria was resistant to IV Zosyn. Based on the sensitivities, including this patient IV cefepime. He is afebrile. He is going to undergo dialysis today. No further episodes of GI bleeding and hemoglobin has remained stable at 7.3. The patient is taking clear liquid diet to no nausea. No vomiting. No emesis. No abdominal pain. No chest pain. No altered mentation. He is slow in responding. Nevertheless he s eems to be appropriate. He is extremely debilitated and weak at this point in time. On his blood work, the patient has a white cell count of 18 with a hemoglobin of 7.3, sodium level is at 138, BUN is at 41 with a creatinine of 4.3. No other significant events overnight. The tentative plan is to do a anoscopy on this patient on Monday. The patient remains on mechanical ventilation for now. Cardiac rhythm is sinus for now. Objective - Vital Signs Vital signs: Vital Signs Temp 98.8 F 08/13/21 12:00 Pulse 60 08/13/21 12:00 Resp 27 H 08/13/21 12:00 BP 120/59 08/13/21 12:00 Pulse Ox 96 08/13/21 12:00 Intake & Output 08/12/21 08/13/21 08/13/21 18:59 06:59 18:59 Intake Total 1000 370 140 Output Total 21 9 160 Balance 979 361 -20 Weight 94.3 kg 94 kg Intake: IV 300 130 90 0.9 sodium chloride 120 130 40 carriers Lactated Ringers 1,000 ml 80 @ 20 mls/hr IV .Q24H [facility] Rx#:[id number] Piperacillin-Tazobactam 3 100 50 .375 gm In Sodium Chloride 0.9% 100 ml @ 25 mls/hr IVPB Q8HR [facility] Rx# :[id number] Intake, IV Titration 50 Amount Cefepime 1 gm In Sodium 50 Chloride 0.9% 50 ml @ 12. 5 mls/hr IVPB Q12HR [facility] Rx#:[id number] Oral 700 Tube Feeding 240 Output: Urine 21 9 10 Stool 150 Other: Voiding Method Indwelling Catheter Indwelling Catheter Indwelling Catheter ABP, PAP, CO, CI - Last Documented Arterial Blood Pressure 103/50 - Exam No acute distress, . The patient is extubated and the patient is currently on 4 L of oxygen by nasal cannula. No signs of any significant respiratory distress at this point in time and is not using excessive muscle breathing. Head exam was generally normal. There was no scleral icterus or corneal arcus. Mucous membranes were moist. HEENT examination is grossly unremarkable. The patient has a right IJ temporary hemodialysis catheter in place and the exit site is dry clean and intact. Orogastric and orotracheal tube are both in place. Neck supple. Full range of motion. No adenopathy thyromegaly or neck vein distention. Cardiovascular examination reveals regular rhythm rate. S1-S2 normal. No S3 or S4. No discernible murmur noted. Lungs reveal coarse bilateral rhonchi, and bilateral crackles. No wheezes. Breath sounds equal bilaterally. Abdominal exam revealed normal bowel sounds. The abdomen was soft, non-tender, and without masses, organomegaly, or appreciable enlargement of the abdominal aorta. Extremities are intact. No cyanosis clubbing or edema. A stage 2 to 3 cm ulcer over the left foot. SkinExamination of the skin revealed no evidence of significant rashes, suspicious appearing nevi or other concerning lesions. Neurologic the patient has global generalized weakness. Is moving all 4 extremities. Motor function is weak in all 4 extremities and symmetrical. No focal neurological deficit. Awake and alert and following commands and answering questions appropriately. - Labs CBC & Chem 7: 08/13/21 07:24 08/13/21 07:24 Labs: Abnormal Lab Results - Last 24 Hours (Table) 08/12/21 08/12/21 08/13/21 Range/Units 17:07 20:11 06:29 WBC (3.8-10.6) k/uL RBC (4.30-5.90) m/uL Hgb (13.0-17.5) gm/dL Hct (39.0-53.0) % MCHC (31.0-37.0) g/dL RDW (11.5-15.5) % Neutrophils # (1.3-7.7) k/uL Carbon Dioxide (22-30) mmol/L BUN (9-20) mg/dL Creatinine (0.66-1.25) mg/dL Glucose (74-99) mg/dL POC Glucose (mg/dL) 167 H 223 H 120 H (75-99) mg/dL 08/13/21 08/13/21 08/13/21 Range/Units 07:24 07:24 11:56 WBC 18.5 H (3.8-10.6) k/uL RBC 2.47 L (4.30-5.90) m/uL Hgb 7.3 L (13.0-17.5) gm/dL Hct 23.8 L (39.0-53.0) % MCHC 30.5 L (31.0-37.0) g/dL RDW 16.9 H (11.5-15.5) % Neutrophils # 16.3 H (1.3-7.7) k/uL Carbon Dioxide 21 L (22-30) mmol/L BUN 41 H (9-20) mg/dL Creatinine 4.32 H (0.66-1.25) mg/dL Glucose 132 H (74-99) mg/dL POC Glucose (mg/dL) 172 H (75-99) mg/dL Microbiology - Last 24 Hours (Table) 08/09/21 09:20 Blood Culture - Preliminary Blood No Growth after 96 hours 08/09/21 20:30 Gram Stain - Final Sputum Sputum Culture - Final Serratia marcescens Assessment and Plan Plan: Acute hypoxemic respiratory failure, requiring intubation and mechanical ventilation on 08/04/2021. The patient is a hypoxic respiratory failure is obviously multifactorial. The patient has advanced COPD. There was a component of fluid overload and the patient have a left lung consolidation is noted on the chest x-ray and a CAT scan of the chest in the sputum analysis was positive for sedation marcescens consistent with an underlying gram-negative pneumonia. As such, the appropriate antibiotic just was were done. The patient has been extubated and the patient is currently on oxygen at 4 L per minute nasal cannula. Acute lower GI bleeding. The patient is currently on no anticoagulants. The patient received a total of 5 units of packed RBC and the most recent hemoglobin stable and the patient has not had any further episodes of bleeding and the patient is going to undergo a colonoscopy by Monday. History of chronic atrial fibrillation. Patient currently is off anticoagulation. Anemia, chronic, with acute drop in hemoglobin as low as 6.5 units of lower GI bleeding. Current hemoglobin is stable. History of CHF. History of COPD, advanced and the patient is oxygen dependent on outpatient basis History of diabetes mellitus. History of DVT. History of gastroesophageal reflux disease. History of hyperlipidemia. History of hypertension. History of sleep apnea syndrome. History of pneumonia. Chronic hypoxemic respiratory failure, secondary to COPD Left wrist fracture Plan The patient is currently extubated on 4 L O2 nasal cannula Provide the patient incentive spirometer Monitor the GI bleeding Advance the patient's diet to soft and then regular Continue hemodialysis per nephrology Switch this patient from IV Zosyn to cefepime Discontinue vancomycin Continue Levemir insulin for blood sugar control Monitor hemoglobin General surgeries on the case, Colonoscopy by Monday Splint the left arm Pulmonary toileting We'll continue to follow make further recommendations based on his progress.
[2021-08-13] MEDS: allopurinoL 100 MG TAB PO SCH (15:59)
[2021-08-13 16:56] LABS: Glucose,Whole Blood 125 mg/dL (75-99)
[2021-08-13 20:31] LABS: Glucose,Whole Blood 214 mg/dL (75-99)
[2021-08-14] MEDS: IPRATROPIUM-ALBUTEROL 3 ML NEB INHALATION SCH ×7 (00:24→23:31)
[2021-08-14] MEDS: HYDROmorphone 1 MG/ML 1 ML SYRINGE IVP PRN ×2 (02:25→20:30)
[2021-08-14] MEDS: LEVOTHYROXINE 25 MCG TAB PO SCH (06:04)
[2021-08-14 06:11] LABS: Glucose,Whole Blood 106 mg/dL (75-99)
--- NOTE | 2021-08-14 06:45 | XR ---
EXAMINATION TYPE: XR chest 1V portable DATE OF EXAM: 08/14/2021 5:30 AM COMPARISON:Chest radiograph from one day prior. TECHNIQUE: XR chest 1V portable Frontal view of the chest. CLINICAL INDICATION:Male, 65 years old with history of resp. failure; FINDINGS: Lungs/Pleura: Low lung volumes on today's exam with increased airspace opacities within the right paxton g base which could be due to atelectasis changes. There is blunting of the costophrenic angles. No ev idence of pneumothorax. There is increased coarse interstitial lung markings. Increased density withi n the lung apices Pulmonary vascularity: Unremarkable. Heart/mediastinum: Cardiomediastinal silhouette is enlarged and stable. Two lead cardiac conduction d evice overlying the left hemithorax with lead tips projecting over the right ventricle and right atri um. Musculoskeletal: No acute osseous pathology. Other findings: None Lines/Tubes: Right internal jugular central venous catheter with distal tip at the cavoatrial junction. IMPRESSION: 1. Low lung volumes without significant changes given differences in technique of basilar airspace o pacities.. 2. bilateral pleural effusions, left greater than right 3. COPD changes.
[2021-08-14 06:47] LABS: Anisocytosis Slight; Basophils # (A) 0.1 k/uL (0-0.2); Basophils % (A) 0 %; Eosinophils # (A) 0.1 k/uL (0-0.7); Eosinophils % (A) 1 %; HCT 22.4 % (39.0-53.0); Hypochromasia Marked; Lymphocytes % (A) 5 %; MCH 30.2 pg (25.0-35.0); MCV 97.2 fL (80.0-100.0); Macrocytosis Slight; Mean Platelet Volume 8.4; Monocytes # (A) 0.8 k/uL (0-1.0); Monocytes % (A) 4 %; Neutrophils # (A) 16.4 k/uL (1.3-7.7); Neutrophils % (A) 88 %; Platelet Count 302 k/uL (150-450); Poikilocytosis Slight; RBC 2.31 m/uL (4.30-5.90); RDW 17.1 % (11.5-15.5); WBC 18.5 k/uL (3.8-10.6)
[2021-08-14 07:10] LABS: Calcium 9.2 mg/dL (8.4-10.2); Potassium 4.2 mmol/L (3.5-5.1)
[2021-08-14] MEDS: BUDESONIDE 1 MG/2 ML NEBU INHALATION SCH ×2 (07:13→19:49)
[2021-08-14] MEDS: FORMOTEROL FUMARATE 20 MCG/2 ML NEBU INHALATION SCH ×3 (07:13→20:04)
[2021-08-14] MEDS: INSULIN DETEMIR (LEVEMIR) 100 UNIT/ML SYR SQ SCH (07:16)
[2021-08-14] MEDS: INSULIN ASPART (NovoLOG) 100 UNIT/ML VIAL SQ SCH ×4 (07:17→20:29)
--- NOTE | 2021-08-14 09:00 | P.PN ---
Subjective Progress Note Date: 08/14/21 Principal diagnosis: GI bleed Patient remains in the ICU. Patient with suspected lower GI bleed. Hemoglobin went from 7.3 yesterday 7.0 today. He has received a total of 5 units. No bleeding over the last day or so. Tolerating regular diet. Objective - Vital Signs Vital signs: Vital Signs Temp 98.5 F 08/14/21 04:00 Pulse 90 08/14/21 07:00 Resp 25 H 08/14/21 07:00 BP 112/51 08/14/21 07:00 Pulse Ox 90 L 08/14/21 07:00 Intake & Output 08/13/21 08/14/21 08/14/21 18:59 06:59 18:59 Intake Total 200 120 10 Output Total 2825 5 5 Balance -2625 115 5 Weight 92.5 kg Intake: IV 150 120 10 0.9 sodium chloride 100 120 10 carriers Piperacillin-Tazobactam 3 50 .375 gm In Sodium Chloride 0.9% 100 ml @ 25 mls/hr IVPB Q8HR [facility] Rx# :[id number] Intake, IV Titration 50 Amount Cefepime 1 gm In Sodium 50 Chloride 0.9% 50 ml @ 12. 5 mls/hr IVPB Q12HR [facility] Rx#:[id number] Output: Urine 25 5 5 Hemodialysis 2800 Other: Voiding Method Indwelling Catheter Indwelling Catheter ABP, PAP, CO, CI - Last Documented Arterial Blood Pressure 103/50 - Exam Abdomen: Soft, nontender, nondistended - Labs CBC & Chem 7: 08/14/21 06:13 08/14/21 06:13 Labs: Abnormal Lab Results - Last 24 Hours (Table) 08/13/21 08/13/21 08/13/21 Range/Units 11:56 16:54 20:29 WBC (3.8-10.6) k/uL RBC (4.30-5.90) m/uL Hgb (13.0-17.5) gm/dL Hct (39.0-53.0) % RDW (11.5-15.5) % Neutrophils # (1.3-7.7) k/uL Chloride (98-107) mmol/L BUN (9-20) mg/dL Creatinine (0.66-1.25) mg/dL POC Glucose (mg/dL) 172 H 125 H 214 H (75-99) mg/dL 08/14/21 08/14/21 08/14/21 Range/Units 06:09 06:13 06:13 WBC 18.5 H (3.8-10.6) k/uL RBC 2.31 L (4.30-5.90) m/uL Hgb 7.0 L (13.0-17.5) gm/dL Hct 22.4 L (39.0-53.0) % RDW 17.1 H (11.5-15.5) % Neutrophils # 16.4 H (1.3-7.7) k/uL Chloride 112 H (98-107) mmol/L BUN 23 H (9-20) mg/dL Creatinine 3.32 H (0.66-1.25) mg/dL POC Glucose (mg/dL) 106 H (75-99) mg/dL Microbiology - Last 24 Hours (Table) 08/09/21 09:20 Blood Culture - Preliminary Blood No Growth after 96 hours Assessment and Plan (1) GI bleed Narrative/Plan: 65-year-old male with lower GI bleed suspected. Begin clear liquid diet tomorrow. Begin bowel prep tomorrow for EGD and colonoscopy on Monday. Current Visit: Yes Status: Acute Code(s): K92.2 - GASTROINTESTINAL HEMORRHAGE, UNSPECIFIED SNOMED Code(s): 78159031
--- NOTE | 2021-08-14 09:36 | P.PN ---
Subjective Patient is seen in follow-up for acute kidney injury on chronic kidney disease, hemodialysis dependent. He tolerated 2.8 L ultrafiltration yesterday. Currently on 6 L nasal cannula. Blood pressure stable. Oral intake just fair. Somewhat confused. Wants to go home. Scheduled for EGD and colonoscopy on Monday. No active bleeding per the nurse. Hemoglobin 7.0 today. Vital signs are stable. General: Awake. No acute distress. HEENT: Head exam is unremarkable. LUNGS: Breath sounds decreased. HEART: Rate and Rhythm are regular. ABDOMEN: Soft, no distention. EXTREMITITES: No edema. Objective - Vital Signs Vital signs: Vital Signs Temp 98.5 F 08/14/21 04:00 Pulse 90 08/14/21 07:00 Resp 25 H 08/14/21 07:00 BP 112/51 08/14/21 07:00 Pulse Ox 90 L 08/14/21 07:00 Intake & Output 08/13/21 08/14/21 08/14/21 18:59 06:59 18:59 Intake Total 200 120 10 Output Total 2825 5 5 Balance -2625 115 5 Weight 92.5 kg Intake: IV 150 120 10 0.9 sodium chloride 100 120 10 carriers Piperacillin-Tazobactam 3 50 .375 gm In Sodium Chloride 0.9% 100 ml @ 25 mls/hr IVPB Q8HR [facility] Rx# :[id number] Intake, IV Titration 50 Amount Cefepime 1 gm In Sodium 50 Chloride 0.9% 50 ml @ 12. 5 mls/hr IVPB Q12HR [facility] Rx#:[id number] Output: Urine 25 5 5 Hemodialysis 2800 Other: Voiding Method Indwelling Catheter Indwelling Catheter ABP, PAP, CO, CI - Last Documented Arterial Blood Pressure 103/50 - Labs CBC & Chem 7: 08/14/21 06:13 08/14/21 06:13 Labs: Abnormal Lab Results - Last 24 Hours (Table) 08/13/21 08/13/21 08/13/21 Range/Units 11:56 16:54 20:29 WBC (3.8-10.6) k/uL RBC (4.30-5.90) m/uL Hgb (13.0-17.5) gm/dL Hct (39.0-53.0) % RDW (11.5-15.5) % Neutrophils # (1.3-7.7) k/uL Chloride (98-107) mmol/L BUN (9-20) mg/dL Creatinine (0.66-1.25) mg/dL POC Glucose (mg/dL) 172 H 125 H 214 H (75-99) mg/dL 08/14/21 08/14/21 08/14/21 Range/Units 06:09 06:13 06:13 WBC 18.5 H (3.8-10.6) k/uL RBC 2.31 L (4.30-5.90) m/uL Hgb 7.0 L (13.0-17.5) gm/dL Hct 22.4 L (39.0-53.0) % RDW 17.1 H (11.5-15.5) % Neutrophils # 16.4 H (1.3-7.7) k/uL Chloride 112 H (98-107) mmol/L BUN 23 H (9-20) mg/dL Creatinine 3.32 H (0.66-1.25) mg/dL POC Glucose (mg/dL) 106 H (75-99) mg/dL Microbiology - Last 24 Hours (Table) 08/09/21 09:20 Blood Culture - Preliminary Blood No Growth after 96 hours Assessment and Plan Plan: Assessment: 1. Acute kidney injury secondary to ATN, currently hemodialysis dependent. Has a permacath. Maintained on Monday schedule. Oliguric. 2. 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 Serologies mostly negative except for mildly low C3 level. 3. Volume overload. Improved with ultrafiltration. 4. Acute on chronic diastolic CHF. 5. Acute blood loss anemia. Received blood transfusion this admission. EGD and colonoscopy Monday. On . 6. A. fib. Plan: Hemodialysis on Monday. Monitor hemoglobin and transfuse as needed. EGD and colonoscopy on Monday. Monitor for renal recovery outpatient.
[2021-08-14] MEDS: CEFEPIME 1 GM in SODIUM CHLORIDE 0.9% 50 ML IVPB SCH ×2 (10:32→20:49)
[2021-08-14] MEDS: PANTOPRAZOLE 40 MG/10 ML VIAL IV SCH (10:32)
[2021-08-14] MEDS: ASCORBIC ACID 500 MG TAB PO SCH ×2 (10:32→20:23)
[2021-08-14] MEDS: CHOLECALCIFEROL 25 MCG (1000 IU) TABLET PO SCH (10:32)
[2021-08-14] MEDS: METOPROLOL TARTRATE 25 MG TAB PO SCH ×2 (10:32→20:23)
[2021-08-14] MEDS: allopurinoL 100 MG TAB PO SCH (10:32)
[2021-08-14] MEDS ORDERED: LEVOFLOXACIN 250MG-D5W PMX 250 MG in DEXTROSE/WATER 1 50ML.BAG IVPB ONE (10:49)
--- NOTE | 2021-08-14 10:54 | P.PN ---
Subjective Patient is a 65-year-old male with multiple medical problems multiple comorbidities was recently discharged from the hospital after he was treated for volume or note from chronic gastritis function and the cardiorenal syndrome. Patient was discharged to rehab facility 2 days into rehab related patient patient went home and started having shortness of breath volume overload diffuse anasarca and pedal edema. Patient is found to be in significant volume or lower chest x-ray showed bilateral pleural effusion although this appears to have improved compared to last admission when he had thoracentesis. Patient has significant lab abnormalities including creatinine going up to around 10 potassium 6.2 very low magnesium of 0.9 nephrology was consulted. As per nephrology patient will lead hemodialysis, consult to vascular surgery was placed for hemodialysis catheter placement and patient will be subsequently started on hemodialysis. Patient does have advanced COPD uses about 5 L of oxygen. 07/28/2021 Patient is seen and evaluated and follow-up has received hemodialysis catheter and is receiving hemodialysis today. Kidney functions improving and patient reports to producing more urine. Current creatinine is 7.6 today potassium is 5 .5 and sodium is 139. Blood sugars have been more manageable and will continue current regimen. Patient continues on 5 L via nasal cannula which is chronic for him. Nephrology following closely and will continue with dialysis daily at this time. Patient is also maintained on IV Lasix and will continue. Patient denies chest pain, shortness of breath, or palpitations. Patient is afebrile. No nausea or vomiting noted and patient is tolerating diet. subjective: resume the care of the pt today 07/29/2021 This is a pleasant 65 years old male with stage IV chronic kidney disease presents with fatigue and worsening kidney function requiring hemodialysis which is a started during this admission after a catheter placed in the right groin. He is hemodynamically stable, he is on 5 L per minute of oxygen but saturating 98-99%, we will try to titrate his oxygen down. No much dyspnea or cough and while he is lying flat in bed but he feels very weak all over. His been having recurrent nausea vomiting, mainly worked first of this morning but he is fully awake with no headache. No abdominal pain. He is hemodynamically stable, hemoglobin 7.4 with evidence of chronic anemia, also he is on ferrous sulfate once daily at home. This currently on home dose of liquids 2.5 and IV Lasix 60 mg twice daily. Ultrasound of the abdomen showing no hydronephrosis or nephrolithiasis. And chest x-ray showed small right pleural effusion with atelectasis. Also patient has chronic left leg wound secondary to a fall about 3 months ago. Patient refused to take the dressing off. We consulted once care. Patient is on Zofran already, we added Phenergan. We ordered a KUB. Also ask for PT OT evaluation. WOUND TEAM CONSULT 07/30/2021 Patient awake alert, no much tachypnea but he stayed in bed most of the time, he still at baseline of 4 L/m of oxygen. However patient reports coughing a lot and making a lot of phlegm, he said he has been diagnosed with pneumonia 2 weeks ago. Actually chest x-ray from yesterday showing bilateral infiltrate, I reviewed the chest x-ray by myself and it looks worse compared to admission despite starting him on a new hemodialysis and receiving Lasix for his CHF. Also we checked his pro-calcitonin and it is elevated at 0.5 for which is consistent with infection with this constellation of CHF, chest x-ray findings and elevated pro-calcitonin. Most likely and high suspicion for hospital acquired pneumonia and patient is a started on Zosyn last night. We going to repeat chest x-ray tomorrow morning. Bladder scan show minimal urine, Flomax was discontinued. Wound care R following the patient for his left foot wound. 07/31/2021 Patient seen in bed most of the time, physical therapy recommended rehab, I talked to him today about this recommendation and he is refusing now. He still on 4 L oxygen nasal cannula which looks like he is this is his baseline however he has coarse crepitation looks like it comes from secretion with decreased air entry on both sides, patient confirms to me he has history of COPD. However I would recommend he follow up with a humidifier operator as an outpatient. Repeat chest x-ray today showing no worsening infiltrate however it shows Similar multifocal airspace opacities. Correlate for congestive heart failure and/or diffuse airspace disease in the meantime we will keep him on Zosyn and check a pro-calcitonin tomorrow, if improvement we may consider oral antibiotic. However started on Solu-Medrol 60 mg 3 times a day today. He is kept on IV Lasix and hemodialysis I discussed the case with nephrology team and they recommended the permacath prior to discharge, discussed with bed side nurse to inform surgical vascular team. Workup showing anemia of chronic disease and he was started on arenasept by necktie operator pockets and pieces. 08/01/2021 Patient clinically is doing well generally, he is breathing quietly, he is tolerating diet well, no bowel movement today Nephrology team on the case and plan for him to get the permacath by vascular surgery team hopefully tomorrow. Also his evidence of COPD exacerbation which is improving therefore Solu-Medrol our to 40 mg twice a day. Pro-calcitonin still elevated 0.68, currently on Zosyn, sputum cultures pending. However patient only having cough and phlegm which is pending as above. Saturation is 4-5 L/m which is his baseline. Rehab is recommended but patient was reluctant so far. 08/02/2021 Patient is lying in bed most of the time, his breathing is at baseline and is i mproving with less crepitation but he is coughing a lot . His oxygen requirement at baseline on 4 L/m which is his home dose. his hemoglobin dropped today to 5.7, his workup showing anemia of chronic disease despite being an IV and oral iron, workup showing anemia of chronic disease but cannot rule out GI bleed especially he's on liquids which is on hold today before going for procedure. Therefore we going to consult GI service in any way. Occult blood in his stool test is requested. Patient states he has 3- 4 loose bowel movements, we will check C. diff as well. No abdominal pain or vomiting. Patient is going for permacath placement today and hemodialysis tomorrow, he got hemodialysis this morning. Patient adamantly refusing to go to rehab despite recommendation for medical and nephrology team on several occasions. Patient and make his own decisions. 08/03/2021 Patient now wake and breathing comfortably at baseline, he is less coughing compared to yesterday after started on Robitussin D but today he wants to, more so I can bring stuff up out of his chest, therefore we change his Robitussin into when necessary dosing and he was informed. No chest pain or other symptoms. However there was some concerns of pulmonary congestion there for his colonoscopy/EGD for tomorrow is rescheduled until . He is placed on liquid diet therefore we lowered his Levemir form 25 units which is home dose down to 10 units tonight. His chest x-ray looks the same Reticulocyte count is 1.5 but he got one unit of transfusion. Currently hemoglobin is holding at 8.1, glucose control, magnesium normal at 2.2, sodium at 1:30 and he is saturating at 4-5 L/m which is home dose. Diarrhea stopped, occult blood in stool is negative and C. diff negative. 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 Repeat CT of the chest today showed no evidence of pulmonary embolism and there is extensive bilateral infiltrates concerning for aspiration. Currently he is saturating 98% on FiO2 of 50% and respiratory rate of 26. Labs reviewed and showing WBC of 14.6, creatinine down to 1.6, hemoglobin 10, potassium after placement 3.4. Patient labs reviewed remains on Zosyn, Pro-calcitonin is improving down to 0.3 prior to this episode of aspiration. Patient remains afebrile for now. His Eliquis remains on hold in view of his history of A. fib due for suspected GI bleed. Patient remains on Zosyn, Protonix and insulin sliding scale. Also patient placed on Lasix 80 mg daily and receives an extra dose this morning. While insulin 10 units is held 08/05/2021 Patient remains in the ICU sedated and intubated. He is off Levophed today. Metoprolol was held yesterday and his blood pressure improved, and this morning 87/54 and his rate was sinus rhythm at 93, no evidence of A. fib and RVR given his history of similar problem. Hemoglobin 7.9, which is known he is anemic, his Eliquis is still on hold for possible GI bleed with planned to undergo EGD/colonoscopy at certain point per GI team her on the case. Creatinine went up to 0.8. He is undergoing hemodialysis. Chest x-ray showed some improvement by a radiologist Remains on IV Zosyn for his recurrent aspiration pneumonia. Also Lasix was held. His prognosis remains guarded 08/09/2021, resume the care of the patient today. Patient remains in the ICU intubated and sedated with pulmonary/critical care team following him closely. Patient with PEEP of 5 and FiO2 of 40%. He is developing fever today of 100.7. Sputum culture is positive for Corynebacterium. Currently is on Zosyn, because of his fever IV vancomycin was added today. His pro-calcitonin is elevated at 2.5. Other labs showing WBC of 1800, hemoglobin is stable at 7.7. Creatinine stable at 2.3. Chest x-ray showing similar changes as of last time with pneumonia and edema. [facility] was admitted for possible COPD exacerbation. Case discussed with pulmonary team Resume the care of the patient on 08/12/2021 Patient is still in the ICU monitored closely, he is status post extubation, is currently on baseline of 4 L/m, with minimal respiratory symptoms, actually patient is asked to go home, explained to him is not medically ready and he agrees to stay. He is hemodynamically stable, blood pressure is borderline 92/50, asymptomatic. Hemoglobin 7.8 compared to 7.4 upon admission, WBC is 21.8 and creatinine 2.6 while he is on hemodialysis. He is status post permacath in the right upper chest. Also has episodes of GI bleed, currently hemoglobin is stable. Eliquis on hold, surgical team with planned for EGD/colonoscopy on Monday. Continue with IV Eliquis He is covered with Zosyn for his Corynebacterium and serratia species Glucose controlled Patient refusing rehab Long-term prognosis is poor. As patient has complicated multiple medical problems on the top of his none strict compliance medical regiment and treatment plan 08/13/2021 Patient awake with no respiratory distress today, he is saturating high 90s on 4 L oxygen which is his home dose. He is hemodynamically stable. Glucose is controlled. Lap still pending. Chest x-ray: Report is pending, I reviewed myself that looks similar infiltrates or slightly better with new left pleural effusion. Patient is going for hemodialysis today He is kept on IV Zosyn for now. Also he is on a clear liquid diet with anticipation for endoscopy by surgery team on this coming Monday for his anemia and possible GI bleed 08/14/2021 Patient awake and alert however is little bit more tachypneic today at 25 mL/h, more hypoxic requiring 6 L/m although his reason quietly in the room. Chest x-ray showing bilateral infiltrates and left pleural effusion with evidence of COPD, image reviewed by myself. His hemoglobin 7.0, his Eliquis is on hold in plan for EGD/colonoscopy tomorrow. No evidence of active bleeding. WBC is 18,000, creatinine 3.3 and Hemodialysis will be Monday in 2 days. I agree with change antibiotics to cefepime since serratia is resistant to Zosyn which is stopped yesterday. Continue with Protonix 40 mg IV and Levemir 15 units with glucose controlled Objective - Vital Signs Vital signs: Vital Signs Temp 98.5 F 08/14/21 04:00 Pulse 90 08/14/21 07:00 Resp 25 H 08/14/21 07:00 BP 112/51 08/14/21 07:00 Pulse Ox 90 L 08/14/21 07:00 Intake & Output 08/13/21 08/14/21 08/14/21 18:59 06:59 18:59 Intake Total 200 120 10 Output Total 2825 5 5 Balance -2625 115 5 Weight 92.5 kg Intake: IV 150 120 10 0.9 sodium chloride 100 120 10 carriers Piperacillin-Tazobactam 3 50 .375 gm In Sodium Chloride 0.9% 100 ml @ 25 mls/hr IVPB Q8HR [facility] Rx# :[id number] Intake, IV Titration 50 Amount Cefepime 1 gm In Sodium 50 Chloride 0.9% 50 ml @ 12. 5 mls/hr IVPB Q12HR [facility] Rx#:[id number] Output: Urine 25 5 5 Hemodialysis 2800 Other: Voiding Method Indwelling Catheter Indwelling Catheter ABP, PAP, CO, CI - Last Documented Arterial Blood Pressure 103/50 - Exam -GENERAL: The patient is awake and alert, generalized weakness. Not in distress HEENT: Pupils are round and equally reacting to light. EOMI. No scleral icterus. No conjunctival pallor. Normocephalic, atraumatic. No pharyngeal erythema. No thyromegaly. CARDIOVASCULAR: S1 and S2 present. No murmurs, rubs, or gallops. -PULMONARY: Chest is clear to auscultation, no wheezing or crackles. Decreased breath sounds on both sides with weak expiratory efforts. Right upper chest permacath ABDOMEN: Soft, nontender, nondistended, normoactive bowel sounds. No palpable organomegaly. MUSCULOSKELETAL: No joint swelling or deformity. EXTREMITIES: No cyanosis, clubbing, or pedal edema. Left leg wound with dressing. NEUROLOGICAL: Gross neurological examination did not reveal any focal deficits. SKIN: No rashes. no petechiae. - Labs CBC & Chem 7: 08/14/21 06:13 08/14/21 06:13 Labs: Abnormal Lab Results - Last 24 Hours (Table) 08/13/21 08/13/21 08/13/21 Range/Units 11:56 16:54 20:29 WBC (3.8-10.6) k/uL RBC (4.30-5.90) m/uL Hgb (13.0-17.5) gm/dL Hct (39.0-53.0) % RDW (11.5-15.5) % Neutrophils # (1.3-7.7) k/uL Chloride (98-107) mmol/L BUN (9-20) mg/dL Creatinine (0.66-1.25) mg/dL POC Glucose (mg/dL) 172 H 125 H 214 H (75-99) mg/dL 08/14/21 08/14/21 08/14/21 Range/Units 06:09 06:13 06:13 WBC 18.5 H (3.8-10.6) k/uL RBC 2.31 L (4.30-5.90) m/uL Hgb 7.0 L (13.0-17.5) gm/dL Hct 22.4 L (39.0-53.0) % RDW 17.1 H (11.5-15.5) % Neutrophils # 16.4 H (1.3-7.7) k/uL Chloride 112 H (98-107) mmol/L BUN 23 H (9-20) mg/dL Creatinine 3.32 H (0.66-1.25) mg/dL POC Glucose (mg/dL) 106 H (75-99) mg/dL Microbiology - Last 24 Hours (Table) 08/09/21 09:20 Blood Culture - Preliminary Blood No Growth after 96 hours Assessment and Plan Assessment: - Recurrent aspiration leading to respiratory distress and status post extubation. Sputum culture is growing Corynebacterium and Adama - acute diastolic congestive heart failure secondary to cardiorenal - Acute COPD exacerbation - Acute kidney injury on stage IV CKD, started on HD during this admission - Normochromic normocytic anemia with suspected GI bleed, recurrent - anasarca secondary to cardiorenal syndrome as mentioned above. Hemodialysis daily per nephrology for now. Improved - Anemia of chronic disease, with recent drop in hemoglobin. Rule out GI bleed - Loose bowel movement, C. diff colitis ruled out -Hypomagnesemia magnesium will be replaced per Protocol -Chronic respiratory failure secondary to COPD , 5 L of oxygen at home. There is evidence of acute exacerbation -Possible pneumonia, hospital-acquired with elevated pro-calcitonin 0.5 -Hypertension -Hyperlipidemia -Hypothyroidism -History of recent fall and fracture to the left wrist with malunion noted -Paroxsymal atrial fibrillation presently rate controlled patient does have sick sinus syndrome history patient has a pacemaker -Type 2 diabetes mellitus Plan: This is a pleasant 65 years old male presents with acute kidney injury and CHF. Started on hemodialysis. Continue continue with incentive spirometry and oxygen therapy at 4 L/m Continue with cefepime. Discontinue other antibiotics discontinuesystemic steroids Continue with hemodialysis per nephrology team. Patient will need permacath, vascular surgery paged disContinue with home dose Eliquis 2.5 mg(on hold for possible bi bleed). Surgery team plan for EGD/colonoscopy on Monday Continue with insulin and ISS. Continue with Levemir Consult wound care Consult GI ( not available during this week in this facility ) Labs and medication were reviewed.. Continue same treatment. Continue with symptomatic treatment. Resume home medication. Monitor lytes and vitals. DVT and GI prophylaxis. Further recommendation sas per clinical course of the pat ient DVT prophylaxis: Eliquis (On hold ) GI Prophylaxis: Ppi PT/OT: Recommended subacute rehab once he improves, social science research assistant consult Prognosis is guarded
--- NOTE | 2021-08-14 11:37 | P.PN ---
Subjective Progress Note Date: 08/14/21 On today's evaluation of 08/09/2021, see the patient for a follow-up. The patient remains intubated on a mechanical ventilator and the patient remains sedated. This morning, the patient is on propofol at 45 [place] respiratory per minute. The patient is an assist-control mode of mechanical ventilation at the rate of 26, tidal volume of 450, FiO2 of 30% with a PEEP of 5. The patient's blood gases from today shows a pH of 7.31 with a pCO2 of 51 and pO2 of 100. The chest x-ray was showing a left-sided consolidation which has recovered and the chest x-ray from today showing cardiomegaly and bilateral small pleural effusions. ET tube is in a good location. The patient's cardiac rhythm is sinus and the patient is on low-dose norepinephrine infusion running at 0.05 micrograms per kilogram per minute for hemodynamic support. The patient currently is also undergoing hemodialysis. The patient has a right-sided dialysis catheter in place. Noted the patient's last hemodialysis session was on 08/07/2021 and a total of 2 L of fluid was removed. He does have some liquidy stool and the patient has a fecal management system in place. The patient is receiving enteral feeding for nutritional support and the patient is currently on Nepro at the rate of 33 mL an hour. The patient has a right femoral triple-lumen catheter in place and a temporary dialysis catheter in his right IJ. Earlier this morning, he did spike a temperature. Based on that, cultures were sent including blood and sputum and the patient was covered with accommodation Zosyn and vancomycin. Pending further cultures. At the same time, I instructed the nursing staff to proceed with this point to proceed with a sedation holiday and assess the patient's mental status. On 08/10/2021, the patient is being seen for a follow-up. The patient remains intubated on a mechanical ventilator. On yesterday's evaluation, the patient was gradually taken off the sedation the patient showed adequate mentation. At one point, we thought that his pupils were unequal and based on that a CAT scan of the brain was done that showed no acute abnormalities. After discontinuing the propofol, the patient overnight had to be placed on low-dose Precedex which is currently running at 0.3 mcg/kg per minute. The patient is also off norepinephrine infusion since 9 PM yesterday. This morning, the patient is arousable. He is awake. He is on assist control mode of mechanical ventilation at the rate of 26 with a tidal volume of 450 and the rate of 26 with an FiO2 of 40% and a PEEP of 5. Blood gases showed a pH of 7.34 with a pCO2 of 48 and pO2 of 78 chest x-ray findings are essentially unchanged. The patient is afebrile for now. He did spike a temperature yesterday and the patient was given blood cultures and the patient was given a combination of Zosyn and vancomycin. Currently is afebrile and her most recent temperature is 90.9F. His white cell count is at 10.7 with hemoglobin of 6.9 and the patient's sodium level is at 138 with a potassium of 5 and a BUN of 40 with a creatinine of 3.0. The patient's underwent hemodialysis yesterday and the patient had ultrafiltration. He is on Nepro for enteral feeding and nutritional support at the rate of 20 mL an hour. He has a fecal management system in place and output is minimal at this point in time. Based on all this, the patient was given a sedation holiday. Weaning parameters were checked and the patient is being considered for possible extubation to BiPAP at a later stage and this large dependent on his ability to undergo this point is breathing trial. On 08/11/2021, the patient is being seen for a follow-up. The patient was weaned off the mechanical ventilator and the patient was extubated yesterday without any major difficulties. The patient however started having episodes of GI bleed as of yesterday. The patient had several bouts of lower GI bleed when he was passing abdominal color stool on multiple occasions. The hemoglobin was being monitored very regularly and the patient remained essentially hemodynamically stable. Hemoglobin dropped as low as 6.5. Note that during his ongoing GI bleed, the patient was given a total of 4 units of packed RBC and hemoglobin this morning is up to 8.2. He did have a bloody bowel movement yesterday evening and none since. The patient remains nothing by mouth. The patient remains on IV Protonix. The patient has a normal coagulation profile. He has not taken anticoagulation since the beginning of this current admission. Based on his ongoing bleed, general surgery was consulted and the patient underwent a GI bleeding scan, a red blood cell Scan that showed no evidence of any acute bleeding. Meanwhile, he is awake and alert his communicating. No cervical respiratory distress. No chest pain she is respiratory difficulties. No chest pain. No altered mentation. No fever. The patient remains on Zosyn. The patient was a result of 21 from 29. Noted the patient developed acute leukocytosis over the past 24 hours and he seems to be improving. The rest of the electrolytes are all within normal limits. BUN is at 63 with a creatinine of 4.8. Vancomycin trough level is 23.4 and patient is currently on vancomycin. The patient is on Levemir insulin and he is receiving 30 units daily along with ascites care coverage. Blood sugars under adequate control for now. No focal neurological deficits. He is weak and debilitated. He also has a stage II ulcer over the left foot On 08/12/2021, the patient is being seen for a follow-up. The patient is doing well and we haven't experienced any active GI bleeding over the past 12-24 hours. Hemoglobin stable at 7.8. Yesterday's hemoglobin was 8.9 after being given a unit of packed RBC. Overall, the patient received a total of 5 units of packed RBC. He is hungry and is requesting some oral intake. He remains on ox ygen 4 L per minute nasal cannula. Sputum is positive for gram-negative bacillus. He has a congested cough. Unable to bring up much sputum. He is currently off pressors. He underwent hemodialysis yesterday with ultrafiltration. On today's blood work, the white second slightly elevated at 21, comparable to yesterday and the platelet count is 229. The sodium is at 132 with a potassium level of 3.7 and the BUN of 39 with a creatinine of 2.6. No altered mentation. Remains on IV Zosyn. Vancomycin trough was also checked and vancomycin can be essentially discontinued for now. No other significant events overnight otherwise. He is on no anticoagulants. The patient remains in normal sinus rhythm. General surgeries on the case. No plans for endoscopy at this point in time. 08/13/2021, [place] is still congested and he is unable to bring up much of sputum. He continues to have a congested cough and he was given a suctioning device to aspirate his mouth episodically during the day. The sputum cultures came back positive for Serratia marcescens and the bacteria was resistant to IV Zosyn. Based on the sensitivities, including this patient IV cefepime. He is afebrile. He is going to undergo dialysis today. No further episodes of GI bleeding and hemoglobin has remained stable at 7.3. The patient is taking clear liquid diet to no nausea. No vomiting. No emesis. No abdominal pain. No chest pain. No altered mentation. He is slow in responding. Nevertheless he s eems to be appropriate. He is extremely debilitated and weak at this point in time. On his blood work, the patient has a white cell count of 18 with a hemoglobin of 7.3, sodium level is at 138, BUN is at 41 with a creatinine of 4.3. No other significant events overnight. The tentative plan is to do a anoscopy on this patient on Monday. The patient remains on mechanical ventilation for now. Cardiac rhythm is sinus for now. 08/14/2021, patient is stable in the intensive care unit. No evidence of any acute bleeding. From the GI tract and the patient has a stable hemoglobin of 7.0. He is still having some congested cough. He is able to bring up some sputum. He did have Serratia marcescens and the patient is currently on antibiotics with IV cefepime. He remains on O2 at 4 L per minute nasal cannula. He underwent hemodialysis yesterday without a total of 2.8 L of ultrafiltration. Cardiac rhythm is sinus. Creatinine is at 3.3, sodium is 143, white cell count of 18 with a hemoglobin of 7.0. No other significant events overnight. Remains on IV cefepime. General surgeries on the case. The plan is to proceed with a colonoscopy by Monday. He is currently taking regular diet. He'll be switched to clear liquid diet as of tomorrow with subsequent bowel cleansing procedures Objective - Vital Signs Vital signs: Vital Signs Temp 98.5 F 08/14/21 04:00 Pulse 72 08/14/21 11:27 Resp 25 H 08/14/21 07:00 BP 112/51 08/14/21 07:00 Pulse Ox 90 L 08/14/21 07:00 Intake & Output 08/13/21 08/14/21 08/14/21 18:59 06:59 18:59 Intake Total 200 120 10 Output Total 2825 5 5 Balance -2625 115 5 Weight 92.5 kg Intake: IV 150 120 10 0.9 sodium chloride 100 120 10 carriers Piperacillin-Tazobactam 3 50 .375 gm In Sodium Chloride 0.9% 100 ml @ 25 mls/hr IVPB Q8HR [facility] Rx# :[id number] Intake, IV Titration 50 Amount Cefepime 1 gm In Sodium 50 Chloride 0.9% 50 ml @ 12. 5 mls/hr IVPB Q12HR [facility] Rx#:[id number] Output: Urine 25 5 5 Hemodialysis 2800 Other: Voiding Method Indwelling Catheter Indwelling Catheter ABP, PAP, CO, CI - Last Documented Arterial Blood Pressure 103/50 - Exam No acute distress, . The patient is extubated and the patient is currently on 4 L of oxygen by nasal cannula. No signs of any significant respiratory distress at this point in time and is not using excessive muscle breathing. Head exam was generally normal. There was no scleral icterus or corneal arcus. Mucous membranes were moist. HEENT examination is grossly unremarkable. The patient has a right IJ temporary hemodialysis catheter in place and the exit site is dry clean and intact. Orogastric and orotracheal tube are both in place. Neck supple. Full range of motion. No adenopathy thyromegaly or neck vein distention. Cardiovascular examination reveals regular rhythm rate. S1-S2 normal. No S3 or S4. No discernible murmur noted. Lungs reveal coarse bilateral rhonchi, and bilateral crackles. No wheezes. Breath sounds equal bilaterally. Abdominal exam revealed normal bowel sounds. The abdomen was soft, non-tender, and without masses, organomegaly, or appreciable enlargement of the abdominal aorta. Extremities are intact. No cyanosis clubbing or edema. A stage 2 to 3 cm ulcer over the left foot. SkinExamination of the skin revealed no evidence of significant rashes, suspicious appearing nevi or other concerning lesions. Neurologic the patient has global generalized weakness. Is moving all 4 e xtremities. Motor function is weak in all 4 extremities and symmetrical. No focal neurological deficit. Awake and alert and following commands and answering questions appropriately. - Labs CBC & Chem 7: 08/14/21 06:13 08/14/21 06:13 Labs: Abnormal Lab Results - Last 24 Hours (Table) 08/13/21 08/13/21 08/13/21 Range/Units 11:56 16:54 20:29 WBC (3.8-10.6) k/uL RBC (4.30-5.90) m/uL Hgb (13.0-17.5) gm/dL Hct (39.0-53.0) % RDW (11.5-15.5) % Neutrophils # (1.3-7.7) k/uL Chloride (98-107) mmol/L BUN (9-20) mg/dL Creatinine (0.66-1.25) mg/dL POC Glucose (mg/dL) 172 H 125 H 214 H (75-99) mg/dL 08/14/21 08/14/21 08/14/21 Range/Units 06:09 06:13 06:13 WBC 18.5 H (3.8-10.6) k/uL RBC 2.31 L (4.30-5.90) m/uL Hgb 7.0 L (13.0-17.5) gm/dL Hct 22.4 L (39.0-53.0) % RDW 17.1 H (11.5-15.5) % Neutrophils # 16.4 H (1.3-7.7) k/uL Chloride 112 H (98-107) mmol/L BUN 23 H (9-20) mg/dL Creatinine 3.32 H (0.66-1.25) mg/dL POC Glucose (mg/dL) 106 H (75-99) mg/dL Microbiology - Last 24 Hours (Table) 08/09/21 09:20 Blood Culture - Preliminary Blood No Growth after 96 hours Assessment and Plan Plan: Acute hypoxemic respiratory failure, requiring intubation and mechanical ventilation on 08/04/2021. The patient is a hypoxic respiratory failure is o bviously multifactorial. The patient has advanced COPD. There was a component of fluid overload and the patient have a left lung consolidation is noted on the chest x-ray and a CAT scan of the chest in the sputum analysis was positive for sedation marcescens consistent with an underlying gram-negative pneumonia. As such, the appropriate antibiotic just was were done. The patient has been extub ated and the patient is currently on oxygen at 4 L per minute nasal cannula. All orders status is stable and the patient is undergoing pulmonary toileting Acute lower GI bleeding. The patient is currently on no anticoagulants. The patient received a total of 5 units of packed RBC and the most recent hemoglobin stable and the patient has not had any further episodes of bleeding and the patient is going to undergo a colonoscopy by Monday. No evidence of any GI bleeding over the past 24 hours and the patient is currently on a regular diet History of chronic atrial fibrillation. Patient currently is off anticoagulation. The current cardiac rhythm is sinus Anemia, chronic, with acute drop in hemoglobin as low as 6.5 units of lower GI bleeding. Current hemoglobin is stable. History of CHF. History of COPD, advanced and the patient is oxygen dependent on outpatient basis History of diabetes mellitus. History of DVT. History of gastroesophageal reflux disease. History of hyperlipidemia. History of hypertension. History of sleep apnea syndrome. History of pneumonia. Chronic hypoxemic respiratory failure, secondary to COPD Left wrist fracture Plan The patient is currently extubated on 4 L O2 nasal cannula Provide the patient incentive spirometer Monitor the GI bleeding, no evidence of any acute bleeding and the patient's single is stable for now Advance the patient's diet regular Continue hemodialysis per nephrology last hemodialysis was done yesterday with a total of 2.8 L of ultrafiltration Switch this patient on cefepime , complete a total of seven-day course Continue Levemir insulin for blood sugar control Monitor hemoglobin General surgeries on the case, Colonoscopy by Monday Splint the left arm Pulmonary toileting We'll continue to follow make further recommendations based on his progress.
[2021-08-14 11:44] LABS: Glucose,Whole Blood 156 mg/dL (75-99)
[2021-08-14] MEDS ORDERED: LEVOFLOXACIN 250MG-D5W PMX 250 MG in DEXTROSE/WATER 1 50ML.BAG IVPB SCH (12:00)
[2021-08-14 17:12] LABS: Glucose,Whole Blood 97 mg/dL (75-99)
[2021-08-14 20:20] LABS: Glucose,Whole Blood 112 mg/dL (75-99)
[2021-08-15] MEDS: HYDROmorphone 1 MG/ML 1 ML SYRINGE IVP PRN ×3 (02:44→21:49)
[2021-08-15] MEDS: IPRATROPIUM-ALBUTEROL 3 ML NEB INHALATION SCH ×6 (03:48→23:00)
[2021-08-15] MEDS: LEVOTHYROXINE 25 MCG TAB PO SCH (06:25)
[2021-08-15 06:43] LABS: Glucose,Whole Blood 123 mg/dL (75-99)
[2021-08-15] MEDS: INSULIN ASPART (NovoLOG) 100 UNIT/ML VIAL SQ SCH ×4 (07:00→21:56)
[2021-08-15] MEDS: INSULIN DETEMIR (LEVEMIR) 100 UNIT/ML SYR SQ SCH (07:01)
[2021-08-15] MEDS: BUDESONIDE 1 MG/2 ML NEBU INHALATION SCH ×2 (07:37→19:59)
[2021-08-15] MEDS: FORMOTEROL FUMARATE 20 MCG/2 ML NEBU INHALATION SCH ×2 (07:37→19:59)
[2021-08-15] MEDS: CHOLECALCIFEROL 25 MCG (1000 IU) TABLET PO SCH (07:54)
[2021-08-15] MEDS: ASCORBIC ACID 500 MG TAB PO SCH ×2 (07:54→20:05)
[2021-08-15] MEDS: CEFEPIME 1 GM in SODIUM CHLORIDE 0.9% 50 ML IVPB SCH ×2 (08:03→20:01)
[2021-08-15] MEDS: PANTOPRAZOLE 40 MG/10 ML VIAL IV SCH ×2 (08:03→20:04)
--- NOTE | 2021-08-15 08:11 | XR ---
EXAMINATION TYPE: XR chest 1V portable DATE OF EXAM: 08/15/2021 CLINICAL HISTORY: Difficulty breathing and hypoxia. TECHNIQUE: Single AP portable upright view of the chest is obtained. COMPARISON: Chest x-ray from one day earlier and older studies. FINDINGS: Stable large bore right internal jugular dialysis catheter. Persistent cardiomegaly with d ual lead pacemaker. Persistent small left greater than right bilateral pleural effusions and associat ed left basilar opacity favoring atelectasis and/or infiltrate. Persistent reticular and reticulonodu lar increased opacity bilaterally. Osseous structures are intact. IMPRESSION: Cardiomegaly chronic parenchymal changes with small left greater than right pleural effus ions and associated left basilar atelectasis and/or infiltrate. No significant change from one day ea rlier.
[2021-08-15] MEDS: METOPROLOL TARTRATE 25 MG TAB PO SCH ×2 (08:16→20:04)
[2021-08-15 08:37] LABS: Albumin 2.3 g/dL (3.5-5.0); Calcium 9.6 mg/dL (8.4-10.2); Magnesium 1.8 mg/dL (1.6-2.3); Potassium 4.4 mmol/L (3.5-5.1); Total Bilirubin 0.4 mg/dL (0.2-1.3); Total Protein 5.1 g/dL (6.3-8.2)
[2021-08-15] MEDS ORDERED: FUROSEMIDE 10 MG/ML 10 ML VIAL IV STA (08:38)
[2021-08-15 08:58] LABS: Anisocytosis Slight; Basophils # (A) 0.1 k/uL (0-0.2); Basophils % (A) 0 %; Eosinophils # (A) 0.1 k/uL (0-0.7); Eosinophils % (A) 1 %; HCT 22.4 % (39.0-53.0); Hypochromasia Marked; Lymphocytes # (A) 0.8 k/uL (1.0-4.8); Lymphocytes % (A) 3 %; MCHC 30.5 g/dL (31.0-37.0); MCV 98.2 fL (80.0-100.0); Macrocytosis Slight; Mean Platelet Volume 8.9; Monocytes # (A) 0.8 k/uL (0-1.0); Monocytes % (A) 3 %; Neutrophils # (A) 20.3 k/uL (1.3-7.7); Neutrophils % (A) 91 %; Platelet Count 344 k/uL (150-450); Poikilocytosis Slight; RBC 2.28 m/uL (4.30-5.90); RDW 17.4 % (11.5-15.5); WBC 22.2 k/uL (3.8-10.6)
[2021-08-15 09:00] LABS: HGB 6.8 gm/dL (13.0-17.5)
[2021-08-15] MEDS ORDERED: PEG 3350-NA SULF,BICARB,CL/KCL 4,000 ML BOTTLE PO ONE (09:00)
--- NOTE | 2021-08-15 09:03 | P.PN ---
Subjective Patient is seen in follow-up for acute kidney injury on chronic kidney disease, hemodialysis dependent. Currently on 5 L nasal cannula. Blood pressure stable. Somewhat confused. Scheduled for EGD and colonoscopy on Monday. No active bleeding per the nurse. Hemoglobin 7.0 yesterday. Vital signs are stable. General: Awake. No acute distress. HEENT: Head exam is unremarkable. LUNGS: Breath sounds decreased. Gurgling noted. HEART: Rate and Rhythm are regular. ABDOMEN: Soft, no distention. EXTREMITITES: No edema. Objective - Vital Signs Vital signs: Vital Signs Temp 97.4 F L 08/15/21 08:00 Pulse 80 08/15/21 08:00 Resp 24 08/15/21 08:00 BP 119/60 08/15/21 08:00 Pulse Ox 92 L 08/15/21 08:00 Intake & Output 08/14/21 08/15/21 08/15/21 18:59 06:59 18:59 Intake Total 130.0 170 70 Output Total 30 20 5 Balance 100.0 150 65 Intake: IV 130.0 170 70 0.9 Normal Saline @ 10mL/ 80 120 20 hr - KVO Cefepime 1 gm In Sodium 50.0 50 50 Chloride 0.9% 50 ml @ 12. 5 mls/hr IVPB Q12HR [facility] Rx#:[id number] Output: Urine 30 20 5 Other: Voiding Method Indwelling Catheter Indwelling Catheter ABP, PAP, CO, CI - Last Documented Arterial Blood Pressure 103/50 - Labs CBC & Chem 7: 08/14/21 06:13 08/15/21 07:45 Labs: Abnormal Lab Results - Last 24 Hours (Table) 08/14/21 08/14/21 08/15/21 Range/Units 11:43 20:18 06:42 Chloride (98-107) mmol/L Carbon Dioxide (22-30) mmol/L BUN (9-20) mg/dL Creatinine (0.66-1.25) mg/dL POC Glucose (mg/dL) 156 H 112 H 123 H (75-99) mg/dL AST (17-59) U/L Total Protein (6.3-8.2) g/dL Albumin (3.5-5.0) g/dL 08/15/21 Range/Units 07:45 Chloride 111 H (98-107) mmol/L Carbon Dioxide 21 L (22-30) mmol/L BUN 29 H (9-20) mg/dL Creatinine 4.83 H (0.66-1.25) mg/dL POC Glucose (mg/dL) (75-99) mg/dL AST 11 L (17-59) U/L Total Protein 5.1 L (6.3-8.2) g/dL Albumin 2.3 L (3.5-5.0) g/dL Microbiology - Last 24 Hours (Table) 08/09/21 09:20 Blood Culture - Preliminary Blood No Growth after 120 hours Assessment and Plan Plan: Assessment: 1. Acute kidney injury secondary to ATN, currently hemodialysis dependent. Has a permacath. Maintained on Monday schedule. Oliguric. 2. 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 Serologies mostly negative except for mildly low C3 level. 3. Volume overload. Improved with ultrafiltration. 4. Acute on chronic diastolic CHF. 5. Acute blood loss anemia. Received blood transfusion this admission. EGD and colonoscopy Monday. On . 6. A. fib. Plan: Hemodialysis on Monday. Monitor hemoglobin and transfuse as needed. EGD and colonoscopy on Monday. Monitor for renal recovery outpatient. Upper airway will be suctioned. Check phosphorus level.
--- NOTE | 2021-08-15 09:06 | P.PN ---
Subjective Progress Note Date: 08/15/21 Principal diagnosis: GI bleed Patient more confused overnight. Hemoglobin today 6.8. No active bleeding. Objective - Vital Signs Vital signs: Vital Signs Temp 97.4 F L 08/15/21 08:00 Pulse 80 08/15/21 08:00 Resp 24 08/15/21 08:00 BP 119/60 08/15/21 08:00 Pulse Ox 92 L 08/15/21 08:00 Intake & Output 08/14/21 08/15/21 08/15/21 18:59 06:59 18:59 Intake Total 130.0 170 70 Output Total 30 20 5 Balance 100.0 150 65 Intake: IV 130.0 170 70 0.9 Normal Saline @ 10mL/ 80 120 20 hr - KVO Cefepime 1 gm In Sodium 50.0 50 50 Chloride 0.9% 50 ml @ 12. 5 mls/hr IVPB Q12HR [facility] Rx#:[id number] Output: Urine 30 20 5 Other: Voiding Method Indwelling Catheter Indwelling Catheter ABP, PAP, CO, CI - Last Documented Arterial Blood Pressure 103/50 - Exam Abdomen: Soft, nontender, nondistended - Labs CBC & Chem 7: 08/15/21 07:45 08/15/21 07:45 Labs: Abnormal Lab Results - Last 24 Hours (Table) 08/14/21 08/14/21 08/15/21 Range/Units 11:43 20:18 06:42 WBC (3.8-10.6) k/uL RBC (4.30-5.90) m/uL Hgb (13.0-17.5) gm/dL Hct (39.0-53.0) % MCHC (31.0-37.0) g/dL RDW (11.5-15.5) % Neutrophils # (1.3-7.7) k/uL Lymphocytes # (1.0-4.8) k/uL Chloride (98-107) mmol/L Carbon Dioxide (22-30) mmol/L BUN (9-20) mg/dL Creatinine (0.66-1.25) mg/dL POC Glucose (mg/dL) 156 H 112 H 123 H (75-99) mg/dL AST (17-59) U/L Total Protein (6.3-8.2) g/dL Albumin (3.5-5.0) g/dL 08/15/21 08/15/21 Range/Units 07:45 07:45 WBC 22.2 H (3.8-10.6) k/uL RBC 2.28 L (4.30-5.90) m/uL Hgb 6.8 L* (13.0-17.5) gm/dL Hct 22.4 L (39.0-53.0) % MCHC 30.5 L (31.0-37.0) g/dL RDW 17.4 H (11.5-15.5) % Neutrophils # 20.3 H (1.3-7.7) k/uL Lymphocytes # 0.8 L (1.0-4.8) k/uL Chloride 111 H (98-107) mmol/L Carbon Dioxide 21 L (22-30) mmol/L BUN 29 H (9-20) mg/dL Creatinine 4.83 H (0.66-1.25) mg/dL POC Glucose (mg/dL) (75-99) mg/dL AST 11 L (17-59) U/L Total Protein 5.1 L (6.3-8.2) g/dL Albumin 2.3 L (3.5-5.0) g/dL Microbiology - Last 24 Hours (Table) 08/09/21 09:20 Blood Culture - Preliminary Blood No Growth after 120 hours Assessment and Plan (1) GI bleed Narrative/Plan: Clinically patient declined from yesterday. Nonverbal currently. Patient will not tolerate a bowel prep at present. Pulmonary planning to discuss extent of care issues with family. Hold endoscopy for now. Current Visit: Yes Status: Acute Code(s): K92.2 - GASTROINTESTINAL HEMORRHAGE, UNSPECIFIED SNOMED Code(s): 11335359
[2021-08-15] MEDS ORDERED: LEVOFLOXACIN 500MG-D5W PMX 500 MG in DEXTROSE/WATER 1 100ML.BAG IVPB STA (11:04)
[2021-08-15] MEDS ORDERED: PANTOPRAZOLE 40 MG/10 ML VIAL IV SCH (11:15)
[2021-08-15 11:16] LABS: Glucose,Whole Blood 103 mg/dL (75-99)
--- NOTE | 2021-08-15 11:18 | P.PN ---
Subjective Patient is a 65-year-old male with multiple medical problems multiple comorbidities was recently discharged from the hospital after he was treated for volume or note from chronic gastritis function and the cardiorenal syndrome. Patient was discharged to rehab facility 2 days into rehab related patient patient went home and started having shortness of breath volume overload diffuse anasarca and pedal edema. Patient is found to be in significant volume or lower chest x-ray showed bilateral pleural effusion although this appears to have improved compared to last admission when he had thoracentesis. Patient has significant lab abnormalities including creatinine going up to around 10 potassium 6.2 very low magnesium of 0.9 nephrology was consulted. As per nephrology patient will lead hemodialysis, consult to vascular surgery was placed for hemodialysis catheter placement and patient will be subsequently started on hemodialysis. Patient does have advanced COPD uses about 5 L of oxygen. 07/28/2021 Patient is seen and evaluated and follow-up has received hemodialysis catheter and is receiving hemodialysis today. Kidney functions improving and patient reports to producing more urine. Current creatinine is 7.6 today potassium is 5 .5 and sodium is 139. Blood sugars have been more manageable and will continue current regimen. Patient continues on 5 L via nasal cannula which is chronic for him. Nephrology following closely and will continue with dialysis daily at this time. Patient is also maintained on IV Lasix and will continue. Patient denies chest pain, shortness of breath, or palpitations. Patient is afebrile. No nausea or vomiting noted and patient is tolerating diet. subjective: resume the care of the pt today 07/29/2021 This is a pleasant 65 years old male with stage IV chronic kidney disease presents with fatigue and worsening kidney function requiring hemodialysis which is a started during this admission after a catheter placed in the right groin. He is hemodynamically stable, he is on 5 L per minute of oxygen but saturating 98-99%, we will try to titrate his oxygen down. No much dyspnea or cough and while he is lying flat in bed but he feels very weak all over. His been having recurrent nausea vomiting, mainly worked first of this morning but he is fully awake with no headache. No abdominal pain. He is hemodynamically stable, hemoglobin 7.4 with evidence of chronic anemia, also he is on ferrous sulfate once daily at home. This currently on home dose of liquids 2.5 and IV Lasix 60 mg twice daily. Ultrasound of the abdomen showing no hydronephrosis or nephrolithiasis. And chest x-ray showed small right pleural effusion with atelectasis. Also patient has chronic left leg wound secondary to a fall about 3 months ago. Patient refused to take the dressing off. We consulted once care. Patient is on Zofran already, we added Phenergan. We ordered a KUB. Also ask for PT OT evaluation. WOUND TEAM CONSULT 07/30/2021 Patient awake alert, no much tachypnea but he stayed in bed most of the time, he still at baseline of 4 L/m of oxygen. However patient reports coughing a lot and making a lot of phlegm, he said he has been diagnosed with pneumonia 2 weeks ago. Actually chest x-ray from yesterday showing bilateral infiltrate, I reviewed the chest x-ray by myself and it looks worse compared to admission despite starting him on a new hemodialysis and receiving Lasix for his CHF. Also we checked his pro-calcitonin and it is elevated at 0.5 for which is consistent with infection with this constellation of CHF, chest x-ray findings and elevated pro-calcitonin. Most likely and high suspicion for hospital acquired pneumonia and patient is a started on Zosyn last night. We going to repeat chest x-ray tomorrow morning. Bladder scan show minimal urine, Flomax was discontinued. Wound care R following the patient for his left foot wound. 07/31/2021 Patient seen in bed most of the time, physical therapy recommended rehab, I talked to him today about this recommendation and he is refusing now. He still on 4 L oxygen nasal cannula which looks like he is this is his baseline however he has coarse crepitation looks like it comes from secretion with decreased air entry on both sides, patient confirms to me he has history of COPD. However I would recommend he follow up with a telephone operator as an outpatient. Repeat chest x-ray today showing no worsening infiltrate however it shows Similar multifocal airspace opacities. Correlate for congestive heart failure and/or diffuse airspace disease in the meantime we will keep him on Zosyn and check a pro-calcitonin tomorrow, if improvement we may consider oral antibiotic. However started on Solu-Medrol 60 mg 3 times a day today. He is kept on IV Lasix and hemodialysis I discussed the case with nephrology team and they recommended the permacath prior to discharge, discussed with bed side nurse to inform surgical vascular team. Workup showing anemia of chronic disease and he was started on arenasept by investigative shopper. 08/01/2021 Patient clinically is doing well generally, he is breathing quietly, he is tolerating diet well, no bowel movement today Nephrology team on the case and plan for him to get the permacath by vascular surgery team hopefully tomorrow. Also his evidence of COPD exacerbation which is improving therefore Solu-Medrol our to 40 mg twice a day. Pro-calcitonin still elevated 0.68, currently on Zosyn, sputum cultures pending. However patient only having cough and phlegm which is pending as above. Saturation is 4-5 L/m which is his baseline. Rehab is recommended but patient was reluctant so far. 08/02/2021 Patient is lying in bed most of the time, his breathing is at baseline and is i mproving with less crepitation but he is coughing a lot . His oxygen requirement at baseline on 4 L/m which is his home dose. his hemoglobin dropped today to 5.7, his workup showing anemia of chronic disease despite being an IV and oral iron, workup showing anemia of chronic disease but cannot rule out GI bleed especially he's on liquids which is on hold today before going for procedure. Therefore we going to consult GI service in any way. Occult blood in his stool test is requested. Patient states he has 3- 4 loose bowel movements, we will check C. diff as well. No abdominal pain or vomiting. Patient is going for permacath placement today and hemodialysis tomorrow, he got hemodialysis this morning. Patient adamantly refusing to go to rehab despite recommendation for medical and nephrology team on several occasions. Patient and make his own decisions. 08/03/2021 Patient now wake and breathing comfortably at baseline, he is less coughing compared to yesterday after started on Robitussin D but today he wants to, more so I can bring stuff up out of his chest, therefore we change his Robitussin into when necessary dosing and he was informed. No chest pain or other symptoms. However there was some concerns of pulmonary congestion there for his colonoscopy/EGD for tomorrow is rescheduled until . He is placed on liquid diet therefore we lowered his Levemir form 25 units which is home dose down to 10 units tonight. His chest x-ray looks the same Reticulocyte count is 1.5 but he got one unit of transfusion. Currently hemoglobin is holding at 8.1, glucose control, magnesium normal at 2.2, sodium at 1:30 and he is saturating at 4-5 L/m which is home dose. Diarrhea stopped, occult blood in stool is negative and C. diff negative. 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 happened in May, he supposed to follow up with his orthopedic doctor Wilmer however he was noncompliant, repeat left wrist x-ray looks the same, orthopedic input is appreciated they recommended no surgical intervention but follow-up outpatient while he is in splint Eliquis remains on hold after EGD/colonoscopy for sever anemia and possible GI bleed 08/04/2021 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 Repeat CT of the chest today showed no evidence of pulmonary embolism and there is extensive bilateral infiltrates concerning for aspiration. Currently he is saturating 98% on FiO2 of 50% and respiratory rate of 26. Labs reviewed and showing WBC of 14.6, creatinine down to 1.6, hemoglobin 10, potassium after placement 3.4. Patient labs reviewed remains on Zosyn, Pro-calcitonin is improving down to 0.3 prior to this episode of aspiration. Patient remains afebrile for now. His Eliquis remains on hold in view of his history of A. fib due for suspected GI bleed. Patient remains on Zosyn, Protonix and insulin sliding scale. Also patient placed on Lasix 80 mg daily and receives an extra dose this morning. While insulin 10 units is held 08/05/2021 Patient remains in the ICU sedated and intubated. He is off Levophed today. Metoprolol was held yesterday and his blood pressure improved, and this morning 87/54 and his rate was sinus rhythm at 93, no evidence of A. fib and RVR given his history of similar problem. Hemoglobin 7.9, which is known he is anemic, his Eliquis is still on hold for possible GI bleed with planned to undergo EGD/colonoscopy at certain point per GI team her on the case. Creatinine went up to 0.8. He is undergoing hemodialysis. Chest x-ray showed some improvement by a radiologist Remains on IV Zosyn for his recurrent aspiration pneumonia. Also Lasix was held. His prognosis remains guarded 08/09/2021, resume the care of the patient today. Patient remains in the ICU intubated and sedated with pulmonary/critical care team following him closely. Patient with PEEP of 5 and FiO2 of 40%. He is developing fever today of 100.7. Sputum culture is positive for Corynebacterium. Currently is on Zosyn, because of his fever IV vancomycin was added today. His pro-calcitonin is elevated at 2.5. Other labs showing WBC of 1800, hemoglobin is stable at 7.7. Creatinine stable at 2.3. Chest x-ray showing similar changes as of last time with pneumonia and edema. [facility] was admitted for possible COPD exacerbation. Case discussed with pulmonary team Resume the care of the patient on 08/12/2021 Patient is still in the ICU monitored closely, he is status post extubation, is currently on baseline of 4 L/m, with minimal respiratory symptoms, actually patient is asked to go home, explained to him is not medically ready and he agrees to stay. He is hemodynamically stable, blood pressure is borderline 92/50, asymptomatic. Hemoglobin 7.8 compared to 7.4 upon admission, WBC is 21.8 and creatinine 2.6 while he is on hemodialysis. He is status post permacath in the right upper chest. Also has episodes of GI bleed, currently hemoglobin is stable. Eliquis on hold, surgical team with planned for EGD/colonoscopy on Monday. Continue with IV Eliquis He is covered with Zosyn for his Corynebacterium and serratia species Glucose controlled Patient refusing rehab Long-term prognosis is poor. As patient has complicated multiple medical problems on the top of his none strict compliance medical regiment and treatment plan 08/13/2021 Patient awake with no respiratory distress today, he is saturating high 90s on 4 L oxygen which is his home dose. He is hemodynamically stable. Glucose is controlled. Lap still pending. Chest x-ray: Report is pending, I reviewed myself that looks similar infiltrates or slightly better with new left pleural effusion. Patient is going for hemodialysis today He is kept on IV Zosyn for now. Also he is on a clear liquid diet with anticipation for endoscopy by surgery team on this coming Monday for his anemia and possible GI bleed 08/14/2021 Patient awake and alert however is little bit more tachypneic today at 25 mL/h, more hypoxic requiring 6 L/m although his reason quietly in the room. Chest x-ray showing bilateral infiltrates and left pleural effusion with evidence of COPD, image reviewed by myself. His hemoglobin 7.0, his Eliquis is on hold in plan for EGD/colonoscopy tomorrow. No evidence of active bleeding. WBC is 18,000, creatinine 3.3 and Hemodialysis will be Monday in 2 days. I agree with change antibiotics to cefepime since serratia is resistant to Zosyn which is stopped yesterday. Continue with Protonix 40 mg IV and Levemir 15 units with glucose controlled 08/15/2021 Patient remains in the ICU and actually today he is doing worse, is more confused and tired and has presented difficulty, he has no ability to eat and even had difficulty taking his pills by the bedside nurse. Since yesterday his oxygen requirement went up to 6 L/m on today's [place] is slightly tachypneic but he has limited air entry, systemic steroids was held because of his bleeding and patient supposed to go for EGD/colonoscopy tomorrow but because of his declining clinical status we could not take the preparation and this procedure was helped by surgery team. Also there is concerned about aspiration therefore we will put the patient nothing by mouth for now and keep monitoring. Received 1 extra dose of IV Lasix 80 mg, we will going to give him in one time dose of Levaquin today on the top of his cefepime started yesterday. His blood pressure this morning is 93/50, with a rate is 19-25. He is afebrile. Hemoglobin dropped to 6.8 and slightly trending down which may goes with GI bleed. It was of blood from GI. We are going to give him an excellent dose of Protonix this morning and switch it to twice daily. chest x-ray showing bilateral pleural effusion, left more than right. Similar chest x-ray from yesterday. Patient currently remains full code I did discuss with his daughter chaya who is next of kin at [phone] and updated her about her father condition, she confirmed to me he wants him to be full code Objective - Vital Signs Vital signs: Vital Signs Temp 97.4 F L 08/15/21 08:00 Pulse 78 08/15/21 10:00 Resp 19 08/15/21 10:00 BP 93/50 08/15/21 10:00 Pulse Ox 94 L 08/15/21 10:00 Intake & Output 08/14/21 08/15/21 08/15/21 18:59 06:59 18:59 Intake Total 130.0 170 80 Output Total 30 20 5 Balance 100.0 150 75 Intake: IV 130.0 170 80 0.9 Normal Saline @ 10mL/ 80 120 30 hr - KVO Cefepime 1 gm In Sodium 50.0 50 50 Chloride 0.9% 50 ml @ 12. 5 mls/hr IVPB Q12HR [facility] Rx#:[id number] Output: Urine 30 20 5 Other: Voiding Method Indwelling Catheter Indwelling Catheter ABP, PAP, CO, CI - Last Documented Arterial Blood Pressure 103/50 - Exam -GENERAL: The patient is awake but more drowsy and confused today generalized weakness. In mild respiratory distress HEENT: Pupils are round and equally reacting to light. EOMI. No scleral icterus. No conjunctival pallor. Normocephalic, atraumatic. No pharyngeal erythema. No thyromegaly. CARDIOVASCULAR: S1 and S2 present. No murmurs, rubs, or gallops. -PULMONARY: Chest is clear to auscultation, no wheezing or crackles. Decreased breath sounds on both sides with weak expiratory efforts. Right upper chest permacath ABDOMEN: Soft, nontender, nondistended, normoactive bowel sounds. No palpable organomegaly. MUSCULOSKELETAL: No joint swelling or deformity. EXTREMITIES: No cyanosis, clubbing, or pedal edema. Left leg wound with dres sing. NEUROLOGICAL: Gross neurological examination did not reveal any focal deficits. SKIN: No rashes. no petechiae. - Labs CBC & Chem 7: 08/15/21 07:45 08/15/21 07:45 Labs: Abnormal Lab Results - Last 24 Hours (Table) 04/09/22 04/09/22 04/10/22 Range/Units 11:43 20:18 06:42 WBC (3.8-10.6) k/uL RBC (4.30-5.90) m/uL Hgb (13.0-17.5) gm/dL Hct (39.0-53.0) % MCHC (31.0-37.0) g/dL RDW (11.5-15.5) % Neutrophils # (1.3-7.7) k/uL Lymphocytes # (1.0-4.8) k/uL Chloride (98-107) mmol/L Carbon Dioxide (22-30) mmol/L BUN (9-20) mg/dL Creatinine (0.66-1.25) mg/dL POC Glucose (mg/dL) 156 H 112 H 123 H (75-99) mg/dL AST (17-59) U/L Total Protein (6.3-8.2) g/dL Albumin (3.5-5.0) g/dL 08/15/21 08/15/21 Range/Units 07:45 07:45 WBC 22.2 H (3.8-10.6) k/uL RBC 2.28 L (4.30-5.90) m/uL Hgb 6.8 L* (13.0-17.5) gm/dL Hct 22.4 L (39.0-53.0) % MCHC 30.5 L (31.0-37.0) g/dL RDW 17.4 H (11.5-15.5) % Neutrophils # 20.3 H (1.3-7.7) k/uL Lymphocytes # 0.8 L (1.0-4.8) k/uL Chloride 111 H (98-107) mmol/L Carbon Dioxide 21 L (22-30) mmol/L BUN 29 H (9-20) mg/dL Creatinine 4.83 H (0.66-1.25) mg/dL POC Glucose (mg/dL) (75-99) mg/dL AST 11 L (17-59) U/L Total Protein 5.1 L (6.3-8.2) g/dL Albumin 2.3 L (3.5-5.0) g/dL Microbiology - Last 24 Hours (Table) 08/09/21 09:20 Blood Culture - Preliminary Blood No Growth after 120 hours Assessment and Plan Assessment: - Recurrent aspiration leading to respiratory distress and status post extubatio n. Sputum culture is growing Corynebacterium and Adama - acute diastolic congestive heart failure secondary to cardiorenal - Acute COPD exacerbation - Acute kidney injury on stage IV CKD, started on HD during this admission - Normochromic normocytic anemia with suspected GI bleed, recurrent - anasarca secondary to cardiorenal syndrome as mentioned above. Hemodialysis daily per nephrology for now. Improved - Anemia of chronic disease, with recent drop in hemoglobin. Rule out GI bleed - Loose bowel movement, C. diff colitis ruled out -Hypomagnesemia magnesium will be replaced per Protocol -Chronic respiratory failure secondary to COPD , 5 L of oxygen at home. There is evidence of acute exacerbation -Possible pneumonia, hospital-acquired with elevated pro-calcitonin 0.5 -Hypertension -Hyperlipidemia -Hypothyroidism -History of recent fall and fracture to the left wrist with malunion noted -Paroxsymal atrial fibrillation presently rate controlled patient does have sick sinus syndrome history patient has a pacemaker -Type 2 diabetes mellitus Plan: This is a pleasant 65 years old male presents with acute kidney injury and CHF. Started on hemodialysis. Continue continue with incentive spirometry and oxygen therapy at 5 L/m Continue with cefepime. one extra doses of levaquin discontinue systemic steroids,as risk of bleeding is high Continue with hemodialysis per nephrology team. has permacath now disContinue with home dose Eliquis 2.5 mg(on hold for possible bi bleed). Surgery team plan for EGD/colonoscopy on Monday, however this was held because of his declining clinical in mental status. Continue with insulin and ISS. Continue with Levemir Surgery team on the case. Labs and medication were reviewed.. Continue same treatment. Continue with symptomatic treatment. Resume home medication. Monitor lytes and vitals. DVT and GI prophylaxis. Further recommendation sas per clinical course of the patient DVT prophylaxis: Eliquis (On hold ) GI Prophylaxis: Ppi PT/OT: Recommended subacute rehab once he improves, social work msw consult Prognosis is guarded and poor Discussed the case with the daughter, she wants him to be full code for now
--- NOTE | 2021-08-15 11:40 | P.PN ---
Subjective Progress Note Date: 08/15/21 On today's evaluation of 08/09/2021, see the patient for a follow-up. The patient remains intubated on a mechanical ventilator and the patient remains sedated. This morning, the patient is on propofol at 45 [place] respiratory per minute. The patient is an assist-control mode of mechanical ventilation at the rate of 26, tidal volume of 450, FiO2 of 30% with a PEEP of 5. The patient's blood gases from today shows a pH of 7.31 with a pCO2 of 51 and pO2 of 100. The chest x-ray was showing a left-sided consolidation which has recovered and the chest x-ray from today showing cardiomegaly and bilateral small pleural effusions. ET tube is in a good location. The patient's cardiac rhythm is sinus and the patient is on low-dose norepinephrine infusion running at 0.05 micrograms per kilogram per minute for hemodynamic support. The patient currently is also undergoing hemodialysis. The patient has a right-sided dialysis catheter in place. Noted the patient's last hemodialysis session was on 08/07/2021 and a total of 2 L of fluid was removed. He does have some liquidy stool and the patient has a fecal management system in place. The patient is receiving enteral feeding for nutritional support and the patient is currently on Nepro at the rate of 33 mL an hour. The patient has a right femoral triple-lumen catheter in place and a temporary dialysis catheter in his right IJ. Earlier this morning, he did spike a temperature. Based on that, cultures were sent including blood and sputum and the patient was covered with accommodation Zosyn and vancomycin. Pending further cultures. At the same time, I instructed the nursing staff to proceed with this point to proceed with a sedation holiday and assess the patient's mental status. On 08/10/2021, the patient is being seen for a follow-up. The patient remains intubated on a mechanical ventilator. On yesterday's evaluation, the patient was gradually taken off the sedation the patient showed adequate mentation. At one point, we thought that his pupils were unequal and based on that a CAT scan of the brain was done that showed no acute abnormalities. After discontinuing the propofol, the patient overnight had to be placed on low-dose Precedex which is currently running at 0.3 mcg/kg per minute. The patient is also off norepinephrine infusion since 9 PM yesterday. This morning, the patient is arousable. He is awake. He is on assist control mode of mechanical ventilation at the rate of 26 with a tidal volume of 450 and the rate of 26 with an FiO2 of 40% and a PEEP of 5. Blood gases showed a pH of 7.34 with a pCO2 of 48 and pO2 of 78 chest x-ray findings are essentially unchanged. The patient is afebrile for now. He did spike a temperature yesterday and the patient was given blood cultures and the patient was given a combination of Zosyn and vancomycin. Currently is afebrile and her most recent temperature is 90.9F. His white cell count is at 10.7 with hemoglobin of 6.9 and the patient's sodium level is at 138 with a potassium of 5 and a BUN of 40 with a creatinine of 3.0. The patient's underwent hemodialysis yesterday and the patient had ultrafiltration. He is on Nepro for enteral feeding and nutritional support at the rate of 20 mL an hour. He has a fecal management system in place and output is minimal at this point in time. Based on all this, the patient was given a sedation holiday. Weaning parameters were checked and the patient is being considered for possible extubation to BiPAP at a later stage and this large dependent on his ability to undergo this point is breathing trial. On 08/11/2021, the patient is being seen for a follow-up. The patient was weaned off the mechanical ventilator and the patient was extubated yesterday without any major difficulties. The patient however started having episodes of GI bleed as of yesterday. The patient had several bouts of lower GI bleed when he was passing abdominal color stool on multiple occasions. The hemoglobin was being monitored very regularly and the patient remained essentially hemodynamically stable. Hemoglobin dropped as low as 6.5. Note that during his ongoing GI bleed, the patient was given a total of 4 units of packed RBC and hemoglobin this morning is up to 8.2. He did have a bloody bowel movement yesterday evening and none since. The patient remains nothing by mouth. The patient remains on IV Protonix. The patient has a normal coagulation profile. He has not taken anticoagulation since the beginning of this current admission. Based on his ongoing bleed, general surgery was consulted and the patient underwent a GI bleeding scan, a red blood cell Scan that showed no evidence of any acute bleeding. Meanwhile, he is awake and alert his communicating. No cervical respiratory distress. No chest pain she is respiratory difficulties. No chest pain. No altered mentation. No fever. The patient remains on Zosyn. The patient was a result of 21 from 29. Noted the patient developed acute leukocytosis over the past 24 hours and he seems to be improving. The rest of the electrolytes are all within normal limits. BUN is at 63 with a creatinine of 4.8. Vancomycin trough level is 23.4 and patient is currently on vancomycin. The patient is on Levemir insulin and he is receiving 30 units daily along with ascites care coverage. Blood sugars under adequate control for now. No focal neurological deficits. He is weak and debilitated. He also has a stage II ulcer over the left foot On 08/12/2021, the patient is being seen for a follow-up. The patient is doing well and we haven't experienced any active GI bleeding over the past 12-24 hours. Hemoglobin stable at 7.8. Yesterday's hemoglobin was 8.9 after being given a unit of packed RBC. Overall, the patient received a total of 5 units of packed RBC. He is hungry and is requesting some oral intake. He remains on ox ygen 4 L per minute nasal cannula. Sputum is positive for gram-negative bacillus. He has a congested cough. Unable to bring up much sputum. He is currently off pressors. He underwent hemodialysis yesterday with ultrafiltration. On today's blood work, the white second slightly elevated at 21, comparable to yesterday and the platelet count is 229. The sodium is at 132 with a potassium level of 3.7 and the BUN of 39 with a creatinine of 2.6. No altered mentation. Remains on IV Zosyn. Vancomycin trough was also checked and vancomycin can be essentially discontinued for now. No other significant events overnight otherwise. He is on no anticoagulants. The patient remains in normal sinus rhythm. General surgeries on the case. No plans for endoscopy at this point in time. 08/13/2021, [place] is still congested and he is unable to bring up much of sputum. He continues to have a congested cough and he was given a suctioning device to aspirate his mouth episodically during the day. The sputum cultures came back positive for Serratia marcescens and the bacteria was resistant to IV Zosyn. Based on the sensitivities, including this patient IV cefepime. He is afebrile. He is going to undergo dialysis today. No further episodes of GI bleeding and hemoglobin has remained stable at 7.3. The patient is taking clear liquid diet to no nausea. No vomiting. No emesis. No abdominal pain. No chest pain. No altered mentation. He is slow in responding. Nevertheless he s eems to be appropriate. He is extremely debilitated and weak at this point in time. On his blood work, the patient has a white cell count of 18 with a hemoglobin of 7.3, sodium level is at 138, BUN is at 41 with a creatinine of 4.3. No other significant events overnight. The tentative plan is to do a anoscopy on this patient on Monday. The patient remains on mechanical ventilation for now. Cardiac rhythm is sinus for now. 08/14/2021, patient is stable in the intensive care unit. No evidence of any acute bleeding. From the GI tract and the patient has a stable hemoglobin of 7.0. He is still having some congested cough. He is able to bring up some sputum. He did have Serratia marcescens and the patient is currently on antibiotics with IV cefepime. He remains on O2 at 4 L per minute nasal cannula. He underwent hemodialysis yesterday without a total of 2.8 L of ultrafiltration. Cardiac rhythm is sinus. Creatinine is at 3.3, sodium is 143, white cell count of 18 with a hemoglobin of 7.0. No other significant events overnight. Remains on IV cefepime. General surgeries on the case. The plan is to proceed with a colonoscopy by Monday. He is currently taking regular diet. He'll be switched to clear liquid diet as of tomorrow with subsequent bowel cleansing procedures 08/15/2021, I'm seeing the patient for a follow-up. He is lethargic. Is weak. Slightly confused on today's evaluation. The nurses were questioning his ability to swallow and for that reason the feeding has been held for now. Meanwhile, the patient has no signs of bleeding and the patient's hemoglobin today is at 6.8. No nausea. No emesis. No bright blood per rectum. The patient remains in oxygen 5 L per minute nasal cannula. Unable to bring up much sputum. He has a congested cough. Chest x-ray from today shows pulmonary vessel congestion and left lower lobe pulmonary infiltrate and the patient sputum sample is shown Serratia marcescens and the patient is currently on IV cefepime. He is afebrile for now on 5 L of O2 by nasal cannula. It's likely the patient is still aspirating. His last bout of hemodialysis was on 08/13/2021 where he underwent ultrafiltration of around 2.8 L. Overall fluid balance over the past 24 hours has been -2.5 L. The patient's had a sodium leve l of 142 with a potassium level of 4.4. His BUN is 111 and a creatinine of 4.8. The morning hemoglobin is at 6.8 with a white cell count of 22.2 and note that the patient was having persistent leukocytosis. General surgeries on the case. There were tentative plans for doing a colonoscopy on Monday, however, the patient is unable to undergo his hour. I elected discussion with his daughter on the phone. Objective - Vital Signs Vital signs: Vital Signs Temp 97.9 F 08/15/21 11:00 Pulse 96 08/15/21 11:23 Resp 25 H 08/15/21 11:00 BP 118/64 08/15/21 11:00 Pulse Ox 91 L 08/15/21 11:00 Intake & Output 08/14/21 08/15/21 08/15/21 18:59 06:59 18:59 Intake Total 130.0 170 100 Output Total 30 20 5 Balance 100.0 150 95 Intake: IV 130.0 170 100 0.9 Normal Saline @ 10mL/ 80 120 50 hr - KVO Cefepime 1 gm In Sodium 50.0 50 50 Chloride 0.9% 50 ml @ 12. 5 mls/hr IVPB Q12HR [facility] Rx#:[id number] Output: Urine 30 20 5 Other: Voiding Method Indwelling Catheter Indwelling Catheter ABP, PAP, CO, CI - Last Documented Arterial Blood Pressure 103/50 - Exam No acute distress, . The patient is extubated and the patient is currently on 5 L of oxygen by nasal cannula. No signs of any significant respiratory distress at this point in time and is not using excessive muscle breathing. Head exam was generally normal. There was no scleral icterus or corneal arcus. Mucous membranes were moist. HEENT examination is grossly unremarkable. The patient has a right IJ temporary hemodialysis catheter in place and the exit site is dry clean and intact. Orogastric and orotracheal tube are both in place. Neck supple. Full range of motion. No adenopathy thyromegaly or neck vein distention. Cardiovascular examination reveals regular rhythm rate. S1-S2 normal. No S3 or S4. No discernible murmur noted. Lungs reveal coarse bilateral rhonchi, and bilateral crackles. No wheezes. Breath sounds equal bilaterally. Abdominal exam revealed normal bowel sounds. The abdomen was soft, non-tender, and without masses, organomegaly, or appreciable enlargement of the abdominal aorta. Extremities are intact. No cyanosis clubbing or edema. A stage 2 to 3 cm ulcer over the left foot. SkinExamination of the skin revealed no evidence of significant rashes, suspicious appearing nevi or other concerning lesions. Neurologic the patient has global generalized weakness. Is moving all 4 extremities. Motor function is weak in all 4 extremities and symmetrical. No focal neurological deficit. Awake and alert and following commands and answering questions appropriately. - Labs CBC & Chem 7: 08/15/21 07:45 08/15/21 07:45 Labs: Abnormal Lab Results - Last 24 Hours (Table) 08/14/21 08/14/21 08/15/21 Range/Units 11:43 20:18 06:42 WBC (3.8-10.6) k/uL RBC (4.30-5.90) m/uL Hgb (13.0-17.5) gm/dL Hct (39.0-53.0) % MCHC (31.0-37.0) g/dL RDW (11.5-15.5) % Neutrophils # (1.3-7.7) k/uL Lymphocytes # (1.0-4.8) k/uL Chloride (98-107) mmol/L Carbon Dioxide (22-30) mmol/L BUN (9-20) mg/dL Creatinine (0.66-1.25) mg/dL POC Glucose (mg/dL) 156 H 112 H 123 H (75-99) mg/dL AST (17-59) U/L Total Protein (6.3-8.2) g/dL Albumin (3.5-5.0) g/dL 08/15/21 08/15/21 08/15/21 Range/Units 07:45 07:45 11:15 WBC 22.2 H (3.8-10.6) k/uL RBC 2.28 L (4.30-5.90) m/uL Hgb 6.8 L* (13.0-17.5) gm/dL Hct 22.4 L (39.0-53.0) % MCHC 30.5 L (31.0-37.0) g/dL RDW 17.4 H (11.5-15.5) % Neutrophils # 20.3 H (1.3-7.7) k/uL Lymphocytes # 0.8 L (1.0-4.8) k/uL Chloride 111 H (98-107) mmol/L Carbon Dioxide 21 L (22-30) mmol/L BUN 29 H (9-20) mg/dL Creatinine 4.83 H (0.66-1.25) mg/dL POC Glucose (mg/dL) 103 H (75-99) mg/dL AST 11 L (17-59) U/L Total Protein 5.1 L (6.3-8.2) g/dL Albumin 2.3 L (3.5-5.0) g/dL Microbiology - Last 24 Hours (Table) 08/09/21 09:20 Blood Culture - Preliminary Blood No Growth after 120 hours Assessment and Plan Plan: Acute hypoxemic respiratory failure, requiring intubation and mechanical ventilation on 08/04/2021. The patient is a hypoxic respiratory failure is obviously multifactorial. The patient has advanced COPD. There was a component of fluid overload and the patient have a left lung consolidation is noted on the chest x-ray and a CAT scan of the chest in the sputum analysis was positive for Serratia marcescens and the patient is currently on IV cefepime. The most recent chest x-ray from today showing a component of pulmonary vessel congestion and left lower lobe pulmonary infiltrate and the patient remains on 5 L of O2 by nasal cannula. He is having difficulties with cough and congestion. He may be also aspirating and for that reason he'll be kept nothing by mouth for today. Concern for aspiration, keep nothing by mouth for now Acute lower GI bleeding, currently inactive in stable and the patient remains off anticoagulation. During the course of this admission, the patient received a total of 5 units of packed RBC and there were plans to undergo a colonoscopy yet the patient is unable to undergo the bowel cleansing.. He remains off anticoagulation. History of chronic atrial fibrillation. Patient currently is off anticoagulation. The current cardiac rhythm is sinus Anemia, chronic, with acute drop in hemoglobin as low as 6.5 units of lower GI bleeding. Current hemoglobin is stable. Hemoglobin today is at 6.8 and this will be repeated History of CHF. History of COPD, advanced and the patient is oxygen dependent on outpatient basis History of diabetes mellitus. History of DVT. History of gastroesophageal reflux disease. History of hyperlipidemia. History of hypertension. History of sleep apnea syndrome. History of pneumonia. Chronic hypoxemic respiratory failure, secondary to COPD Left wrist fracture Plan The patient is currently extubated on 5 L O2 nasal cannula Provide the patient incentive spirometer Monitor the GI bleeding, no evidence of any acute bleeding and the patient's sin gle is stable for now The patient's hemoglobin today is at 6.8. Will hold off on transfusing the pa tient for now and repeat another hemoglobin is around noontime knowing that the patient is not showing any signs of GI bleeding. Keep the patient nothing by mouth for today Continue hemodialysis per nephrology last hemodialysis was done yesterday with a total of 2.8 L of ultrafiltration, this was done on 08/13/2021 Switch this patient on cefepime , complete a total of seven-day course Continue Levemir insulin for blood sugar control Monitor hemoglobin General surgeries on the case, Colonoscopy by Monday Splint the left arm Pulmonary toileting I discussed his case with the daughter. I made recommendations to make him DNR/DNI. The daughter understood all the comorbidities and she understood that he had a very poor prognosis. Nevertheless, she was not ready to make a CODE STATUS change yet. We'll continue to follow make further recommendations based on his progress.
[2021-08-15] MEDS: allopurinoL 100 MG TAB PO SCH (13:14)
[2021-08-15] MEDS: SCOPOLAMINE 1 MG/72 HR PATCH TRANSDERM SCH (16:49)
[2021-08-15] MEDS: ATROPINE OPHTH SOLN 1% 5ML BTL SUBLINGUAL PRN (16:49)
[2021-08-15 17:18] LABS: Glucose,Whole Blood 92 mg/dL (75-99)
[2021-08-15 20:10] LABS: Glucose,Whole Blood 70 mg/dL (75-99)
[2021-08-15] MEDS ORDERED: DEXTROSE 50% SYRINGE 50 ML IVP ONE (20:11)
[2021-08-15 21:12] LABS: Glucose,Whole Blood 70 mg/dL (75-99)
[2021-08-15] MEDS: DARBEPOETIN ALFA 60 MCG/0.3 ML SYRINGE SQ SCH (22:09)
[2021-08-15 23:14] LABS: Glucose,Whole Blood 95 mg/dL (75-99)
[2021-08-16] MEDS: HYDROmorphone 1 MG/ML 1 ML SYRINGE IVP PRN ×3 (00:15→20:12)
[2021-08-16 00:29] LABS: Glucose,Whole Blood 90 mg/dL (75-99)
[2021-08-16] MEDS: IPRATROPIUM-ALBUTEROL 3 ML NEB INHALATION SCH ×6 (03:05→23:08)
[2021-08-16 05:20] LABS: Anisocytosis Slight; Basophils # (A) 0.1 k/uL (0-0.2); Basophils % (A) 0 %; Eosinophils # (A) 0.1 k/uL (0-0.7); Eosinophils % (A) 1 %; HCT 21.3 % (39.0-53.0); Hypochromasia Marked; Lymphocytes # (A) 0.9 k/uL (1.0-4.8); Lymphocytes % (A) 4 %; MCH 29.5 pg (25.0-35.0); MCV 98.4 fL (80.0-100.0); Macrocytosis Slight; Mean Platelet Volume 8.4; Monocytes # (A) 0.8 k/uL (0-1.0); Monocytes % (A) 4 %; Neutrophils # (A) 20.5 k/uL (1.3-7.7); Neutrophils % (A) 91 %; Platelet Count 325 k/uL (150-450); Poikilocytosis Slight; RBC 2.16 m/uL (4.30-5.90); RDW 16.9 % (11.5-15.5); WBC 22.6 k/uL (3.8-10.6)
[2021-08-16 05:25] LABS: HGB 6.4 gm/dL (13.0-17.5)
[2021-08-16 05:31] LABS: Calcium 9.6 mg/dL (8.4-10.2); Phosphorus 7.1 mg/dL (2.5-4.5); Potassium 4.5 mmol/L (3.5-5.1)
[2021-08-16] MEDS: LEVOTHYROXINE 25 MCG TAB PO SCH (05:37)
[2021-08-16 06:22] LABS: Glucose,Whole Blood 88 mg/dL (75-99)
[2021-08-16] MEDS: INSULIN DETEMIR (LEVEMIR) 100 UNIT/ML SYR SQ SCH (07:07)
[2021-08-16] MEDS: INSULIN ASPART (NovoLOG) 100 UNIT/ML VIAL SQ SCH ×4 (07:08→22:49)
[2021-08-16] MEDS: PANTOPRAZOLE 40 MG/10 ML VIAL IV SCH ×2 (08:02→20:08)
[2021-08-16] MEDS: CEFEPIME 1 GM in SODIUM CHLORIDE 0.9% 50 ML IVPB SCH ×2 (08:02→20:08)
[2021-08-16] MEDS: NOREPINEPHRINE 4 MG in SODIUM CHLORIDE 0.9% 250 ML IV SCH ×2 (08:09→12:20)
[2021-08-16] MEDS: METOPROLOL TARTRATE 25 MG TAB PO SCH ×2 (08:09→21:37)
[2021-08-16] MEDS: CHOLECALCIFEROL 25 MCG (1000 IU) TABLET PO SCH (08:09)
[2021-08-16] MEDS: ASCORBIC ACID 500 MG TAB PO SCH ×2 (08:09→21:37)
[2021-08-16] MEDS: FORMOTEROL FUMARATE 20 MCG/2 ML NEBU INHALATION SCH ×2 (08:25→19:33)
[2021-08-16] MEDS: BUDESONIDE 1 MG/2 ML NEBU INHALATION SCH ×2 (08:25→19:33)
--- NOTE | 2021-08-16 08:59 | P.PN ---
Subjective Patient is seen in follow-up for acute kidney injury on chronic kidney disease, hemodialysis dependent. Currently on 4 L nasal cannula. Blood pressure stable. Somewhat confused. Scheduled for EGD and colonoscopy today. No active bleeding per the nurse. Hemoglobin 6.4 today. Scheduled to receive a unit of blood. Also scheduled to undergo hemodialysis today. Vital signs are stable. General: Awake. No acute distress. HEENT: Head exam is unremarkable. LUNGS: Breath sounds decreased. HEART: Rate and Rhythm are regular. ABDOMEN: Soft, no distention. EXTREMITITES: No edema. Objective - Vital Signs Vital signs: Vital Signs Temp 98.1 F 08/16/21 08:22 Pulse 108 H 08/16/21 08:41 Resp 20 08/16/21 08:35 BP 105/60 08/16/21 08:35 Pulse Ox 92 L 08/16/21 08:35 Intake & Output 08/15/21 08/16/21 08/16/21 18:59 06:59 18:59 Intake Total 280 110 70 Output Total 31 15 0 Balance 249 95 70 Weight 92.4 kg Intake: IV 280 110 70 0.9 Normal Saline @ 10mL/ 130 110 20 hr - KVO Cefepime 1 gm In Sodium 50 50 Chloride 0.9% 50 ml @ 12. 5 mls/hr IVPB Q12HR [facility] Rx#:[id number] Levofloxacin 500Mg-D5w 100 Pmx 500 mg In Dextrose/ Water 1 100ml.bag @ 100 mls/hr IVPB [facility] Rx#: [id number] Blood Product 0 Rc As-1 Unit 0 [id number] Output: Urine 31 15 0 Other: Voiding Method Indwelling Catheter Indwelling Catheter ABP, PAP, CO, CI - Last Documented Arterial Blood Pressure 103/50 - Labs CBC & Chem 7: 08/16/21 04:58 08/16/21 04:58 Labs: Abnormal Lab Results - Last 24 Hours (Table) 08/15/21 08/15/21 08/15/21 Range/Units 07:45 11:15 20:09 WBC 22.2 H (3.8-10.6) k/uL RBC 2.28 L (4.30-5.90) m/uL Hgb 6.8 L* (13.0-17.5) gm/dL Hct 22.4 L (39.0-53.0) % MCHC 30.5 L (31.0-37.0) g/dL RDW 17.4 H (11.5-15.5) % Neutrophils # 20.3 H (1.3-7.7) k/uL Lymphocytes # 0.8 L (1.0-4.8) k/uL Chloride (98-107) mmol/L Carbon Dioxide (22-30) mmol/L BUN (9-20) mg/dL Creatinine (0.66-1.25) mg/dL POC Glucose (mg/dL) 103 H 70 L (75-99) mg/dL Phosphorus (2.5-4.5) mg/dL Crossmatch 08/15/21 08/16/21 08/16/21 Range/Units 21:11 04:58 04:58 WBC 22.6 H (3.8-10.6) k/uL RBC 2.16 L (4.30-5.90) m/uL Hgb 6.4 L* (13.0-17.5) gm/dL Hct 21.3 L (39.0-53.0) % MCHC 30.0 L (31.0-37.0) g/dL RDW 16.9 H (11.5-15.5) % Neutrophils # 20.5 H (1.3-7.7) k/uL Lymphocytes # 0.9 L (1.0-4.8) k/uL Chloride 113 H (98-107) mmol/L Carbon Dioxide 15 L (22-30) mmol/L BUN 37 H (9-20) mg/dL Creatinine 5.70 H (0.66-1.25) mg/dL POC Glucose (mg/dL) 70 L (75-99) mg/dL Phosphorus 7.1 H (2.5-4.5) mg/dL Crossmatch 08/16/21 Range/Units 04:58 WBC (3.8-10.6) k/uL RBC (4.30-5.90) m/uL Hgb (13.0-17.5) gm/dL Hct (39.0-53.0) % MCHC (31.0-37.0) g/dL RDW (11.5-15.5) % Neutrophils # (1.3-7.7) k/uL Lymphocytes # (1.0-4.8) k/uL Chloride (98-107) mmol/L Carbon Dioxide (22-30) mmol/L BUN (9-20) mg/dL Creatinine (0.66-1.25) mg/dL POC Glucose (mg/dL) (75-99) mg/dL Phosphorus (2.5-4.5) mg/dL Crossmatch See Detail Microbiology - Last 24 Hours (Table) 08/09/21 09:20 Blood Culture - Final Blood No Growth after 144 hours Assessment and Plan Plan: Assessment: 1. Acute kidney injury secondary to ATN, currently hemodialysis dependent. Has a permacath. Maintained on Monday schedule. Oliguric. 2. 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 Serologies mostly negative except for mildly low C3 level. 3. Volume overload. Improved with ultrafiltration. 4. Acute on chronic diastolic CHF. 5. Acute blood loss anemia. Received blood transfusion this admission. EGD and colonoscopy today. On Aranesp. 6. A. fib. 7. Chronic kidney disease mineral bone disease. Phosphorous 7.1 dated 08/16/2021. 8. Metabolic acidosis secondary to acute kidney injury. Expect improvement postdialysis. Plan: Hemodialysis today. Scheduled to receive a unit of blood today. Monitor for renal recovery outpatient. Add Renvela with meals.
--- NOTE | 2021-08-16 11:38 | P.PN ---
Subjective Progress Note Date: 08/16/21 Principal diagnosis: Acute hypoxic respiratory failure requiring intubation and mechanical ventilation, multifactorial. 08/15/2021, I'm seeing the patient for a follow-up. He is lethargic. Is weak. Slightly confused on today's evaluation. The nurses were questioning his abil ity to swallow and for that reason the feeding has been held for now. Meanwhile, the patient has no signs of bleeding and the patient's hemoglobin today is at 6.8. No nausea. No emesis. No bright blood per rectum. The patient remains in oxygen 5 L per minute nasal cannula. Unable to bring up much sputum. He has a congested cough. Chest x-ray from today shows pulmonary vessel congestion and left lower lobe pulmonary infiltrate and the patient sputum sample is shown Serratia marcescens and the patient is currently on IV cefepime. He is afebrile for now on 5 L of O2 by nasal cannula. It's likely the patient is still aspirating. His last bout of hemodialysis was on 08/13/2021 where he underwent ultrafiltration of around 2.8 L. Overall fluid balance over the past 24 hours has been -2.5 L. The patient's had a sodium level of 142 with a potassium level of 4.4. His BUN is 111 and a creatinine of 4.8. The morning hemoglobin is at 6.8 with a white cell count of 22.2 and note that the patient was having persistent leukocytosis. General surgeries on the case. There were tentative plans for doing a colonoscopy on Monday, however, the patient is unable to undergo his hour. I elected discussion with his daughter on the phone. Reevaluated today on 08/16/2021, patient remains in the ICU, remains lethargic, confused, looks frail and chronically and, patient is receiving a unit of packed RBCs at present for low hemoglobin, 6.4 today. Patient remains on hemodialysis, his BUN today is 37 creatinine is 5.70. Yet to be evaluated for GI bleeding. This is pending. Chest x-ray continues to show pulmonary vascular congestion, and left lower lobe infiltrate. Sputum has been positive for Serratia marcescens, and the patient remains on cefepime. Patient is yet to have colono scopy, and that is presently on hold as per surgery. Continues to have leukocytosis with WBC of 22.6, hemoglobin is 6.4 electrolytes are normal bicarb is 15, patient is being followed by nephrology, and he is undergoing hemodialysis. Chest x-ray showed cardiomegaly yesterday with chronic parenchym al changes and bilateral pleural effusions with left basilar atelectasis, possible infiltrate Objective - Vital Signs Vital signs: Vital Signs Temp 98.1 F 08/16/21 10:43 Pulse 105 H 08/16/21 10:43 Resp 24 08/16/21 10:43 BP 109/77 08/16/21 10:43 Pulse Ox 91 L 08/16/21 10:43 Intake & Output 08/15/21 08/16/21 08/16/21 18:59 06:59 18:59 Intake Total 280 110 450 Output Total 31 15 0 Balance 249 95 450 Weight 92.4 kg Intake: IV 280 110 90 0.9 Normal Saline @ 10mL/ 130 110 40 hr - KVO Cefepime 1 gm In Sodium 50 50 Chloride 0.9% 50 ml @ 12. 5 mls/hr IVPB Q12HR [facility] Rx#:[id number] Levofloxacin 500Mg-D5w 100 Pmx 500 mg In Dextrose/ Water 1 100ml.bag @ 100 mls/hr IVPB ONCE STA Rx#: [id number] Blood Product 310 Rc As-1 Unit 310 [id number] Other 50 Rc As-1 Unit 50 [id number] Output: Urine 31 15 0 Other: Voiding Method Indwelling Catheter Indwelling Catheter Indwelling Catheter ABP, PAP, CO, CI - Last Documented Arterial Blood Pressure 103/50 - Exam Physical Exam: Revealed a 65-year-old white male frail looking, not in distress. Head: Atraumatic, normocephalic. HEENT:[Neck is supple.] [No neck masses.] [No thyromegaly.] [No JVD.] Right subclavian hemodialysis catheter is noted. Chest: [Symmetrical chest expansion, crackles at the bases, no rhonchi no wheezes. Cardiac Exam: [Normal S1 and S2, no S3 gallop, 2/6 systolic murmur thought the precordium. Abdomen: [Obese, Soft, nontender, no megaly, no rebound, no guarding, normal bowel sounds.] Extremities: Trace of bipedal edema. Neurological Exam: Patient seems to be generally weak, confused, frail looking, oriented to place only. Psychiatric: Could not be fully assessed patient has a depressed mood and blunted affect. Skin: No rashes. - Labs CBC & Chem 7: 08/16/21 04:58 08/16/21 04:58 Labs: Abnormal Lab Results - Last 24 Hours (Table) 08/15/21 08/15/21 08/16/21 Range/Units 20:09 21:11 04:58 WBC (3.8-10.6) k/uL RBC (4.30-5.90) m/uL Hgb (13.0-17.5) gm/dL Hct (39.0-53.0) % MCHC (31.0-37.0) g/dL RDW (11.5-15.5) % Neutrophils # (1.3-7.7) k/uL Lymphocytes # (1.0-4.8) k/uL Chloride 113 H (98-107) mmol/L Carbon Dioxide 15 L (22-30) mmol/L BUN 37 H (9-20) mg/dL Creatinine 5.70 H (0.66-1.25) mg/dL POC Glucose (mg/dL) 70 L 70 L (75-99) mg/dL Phosphorus 7.1 H (2.5-4.5) mg/dL Crossmatch 08/16/21 08/16/21 Range/Units 04:58 04:58 WBC 22.6 H (3.8-10.6) k/uL RBC 2.16 L (4.30-5.90) m/uL Hgb 6.4 L* (13.0-17.5) gm/dL Hct 21.3 L (39.0-53.0) % MCHC 30.0 L (31.0-37.0) g/dL RDW 16.9 H (11.5-15.5) % Neutrophils # 20.5 H (1.3-7.7) k/uL Lymphocytes # 0.9 L (1.0-4.8) k/uL Chloride (98-107) mmol/L Carbon Dioxide (22-30) mmol/L BUN (9-20) mg/dL Creatinine (0.66-1.25) mg/dL POC Glucose (mg/dL) (75-99) mg/dL Phosphorus (2.5-4.5) mg/dL Crossmatch See Detail Microbiology - Last 24 Hours (Table) 08/09/21 09:20 Blood Culture - Final Blood No Growth after 144 hours Assessment and Plan Assessment: Impression: Acute on chronic hypoxic respiratory failure, multifactorial, requiring intubation and mechanical ventilation, patient was extubated a few days ago, tolerated the extubation well. His acute hypoxic respiratory failure was felt to be secondary to COPD, fluid overload and pulmonary edema secondary to renal failure, and there is also a left lung consolidation/pneumonia secondary to Serratia marcescens. Remains on cefepime. And there is also a possibility of aspiration pneumonia. Acute lower GI bleeding, being addressed by general surgery on the case, considering colonoscopy, in the meantime the patient is to receive a unit of packed RBCs today. Chronic atrial fibrillation, presently off anticoagulation therapy. Acute on chronic anemia, multifactorial, suspect ongoing GI bleeding. History of underlying COPD History of diabetes History of DVT History of GERD Dyslipidemia Benign essential hypertension Obstructive sleep apnea syndrome Chronic hypoxic respiratory failure, Secondary to COPD Left wrist fracture Accommodation: Continue oxygen Continue incentive spirometry Continue antibiotics for Serratia marcescens pneumonia Continue hemodialysis Transfuse to maintain hemoglobin 7 or above. Continue GI and DVT prophylaxis Continue to hold anticoagulations therapy Continue splinting of the left wrist. Consider PICC line in this patient. Prognosis remains extremely poor and guarded. Critical care time is over 30 minutes. Time with Patient: Greater than 30
[2021-08-16 12:03] LABS: Glucose,Whole Blood 85 mg/dL (75-99)
[2021-08-16] MEDS: SEVELAMER 800 MG TAB PO SCH ×2 (12:20→16:25)
--- NOTE | 2021-08-16 12:47 | P.PN ---
Subjective Progress Note Date: 08/16/21 CHIEF COMPLAINT: GI bleed HISTORY OF PRESENT ILLNESS: Patient remains in the ICU. He has multiple medical problems. Patient failed his bedside swallow eval. Therefore he was unable to proceed with the GoLYTELY prep. His endoscopies have been canceled. He did have brown smear of a BM reported by nursing staff. Denies any nausea or vomiting. Patient does have productive cough. He is to be evaluated again by speech therapy today. There's also discussion about possible hospice. Patient's hemoglobin has trended down to 6.4 and he is receiving a unit of blood today. He is scheduled for hemodialysis. White count is at 22.6. He is afebrile. PHYSICAL EXAM: VITAL SIGNS: Reviewed. GENERAL: Well-developed in no acute distress. HEENT: No sclera icterus. Extraocular movements grossly intact. Moist buccal mucosa. Head is atraumatic, normocephalic. ABDOMEN: Soft. Nondistended. Nontender. NEUROLOGIC: Alert and oriented. Cranial nerves II through XII grossly intact. ASSESSMENT: 1. Acute GI bleed 2. Acute blood loss anemia PLAN: -Endoscopies have been placed on hold -Awaiting family's decision regarding hospice -Patient to be evaluated by speech therapy for swallow evaluation -Continue to monitor hemoglobin -Continue supportive care Physician Running Instructor note has been reviewed by physician. Signing provider agrees with the documented findings, assessment, and plan of care. Objective - Vital Signs Vital signs: Vital Signs Temp 98.1 F 08/16/21 10:43 Pulse 96 08/16/21 12:35 Resp 22 08/16/21 11:00 BP 91/45 08/16/21 11:00 Pulse Ox 92 L 08/16/21 11:00 Intake & Output 08/15/21 08/16/21 08/16/21 18:59 06:59 18:59 Intake Total 280 110 460 Output Total 31 15 0 Balance 249 95 460 Weight 92.4 kg Intake: IV 280 110 100 0.9 Normal Saline @ 10mL/ 130 110 50 hr - KVO Cefepime 1 gm In Sodium 50 50 Chloride 0.9% 50 ml @ 12. 5 mls/hr IVPB Q12HR [facility] Rx#:[id number] Levofloxacin 500Mg-D5w 100 Pmx 500 mg In Dextrose/ Water 1 100ml.bag @ 100 mls/hr IVPB ONCE STA Rx#: [id number] Blood Product 310 Rc As-1 Unit 310 [id number] Other 50 Rc As-1 Unit 50 [id number] Output: Urine 31 15 0 Other: Voiding Method Indwelling Catheter Indwelling Catheter Indwelling Catheter ABP, PAP, CO, CI - Last Documented Arterial Blood Pressure 103/50 - Labs CBC & Chem 7: 08/16/21 04:58 08/16/21 04:58 Labs: Abnormal Lab Results - Last 24 Hours (Table) 08/15/21 08/15/21 08/16/21 Range/Units 20:09 21:11 04:58 WBC (3.8-10.6) k/uL RBC (4.30-5.90) m/uL Hgb (13.0-17.5) gm/dL Hct (39.0-53.0) % MCHC (31.0-37.0) g/dL RDW (11.5-15.5) % Neutrophils # (1.3-7.7) k/uL Lymphocytes # (1.0-4.8) k/uL Chloride 113 H (98-107) mmol/L Carbon Dioxide 15 L (22-30) mmol/L BUN 37 H (9-20) mg/dL Creatinine 5.70 H (0.66-1.25) mg/dL POC Glucose (mg/dL) 70 L 70 L (75-99) mg/dL Phosphorus 7.1 H (2.5-4.5) mg/dL Crossmatch 08/16/21 08/16/21 Range/Units 04:58 04:58 WBC 22.6 H (3.8-10.6) k/uL RBC 2.16 L (4.30-5.90) m/uL Hgb 6.4 L* (13.0-17.5) gm/dL Hct 21.3 L (39.0-53.0) % MCHC 30.0 L (31.0-37.0) g/dL RDW 16.9 H (11.5-15.5) % Neutrophils # 20.5 H (1.3-7.7) k/uL Lymphocytes # 0.9 L (1.0-4.8) k/uL Chloride (98-107) mmol/L Carbon Dioxide (22-30) mmol/L BUN (9-20) mg/dL Creatinine (0.66-1.25) mg/dL POC Glucose (mg/dL) (75-99) mg/dL Phosphorus (2.5-4.5) mg/dL Crossmatch See Detail Microbiology - Last 24 Hours (Table) 08/09/21 09:20 Blood Culture - Final Blood No Growth after 144 hours
[2021-08-16 12:57] VITALS: BMI 25.4
[2021-08-16] MEDS: allopurinoL 100 MG TAB PO SCH (14:25)
[2021-08-16 16:25] LABS: Glucose,Whole Blood 83 mg/dL (75-99)
[2021-08-16] MEDS: ATROPINE OPHTH SOLN 1% 5ML BTL SUBLINGUAL PRN (20:10)
[2021-08-16 21:48] LABS: Glucose,Whole Blood 76 mg/dL (75-99)
[2021-08-17] MEDS: HYDROmorphone 1 MG/ML 1 ML SYRINGE IVP PRN ×5 (00:06→21:20)
--- NOTE | 2021-08-17 00:16 | P.PN ---
Subjective Progress Note Date: 08/16/21 Patient is a 65-year-old male with multiple medical problems multiple comorbidities was recently discharged from the hospital after he was treated for volume or note from chronic gastritis function and the cardiorenal syndrome. Patient was discharged to rehab facility 2 days into rehab related patient patient went home and started having shortness of breath volume overload diffuse anasarca and pedal edema. Patient is found to be in significant volume or lower chest x-ray showed bilateral pleural effusion although this appears to have improved compared to last admission when he had thoracentesis. Patient has significant lab abnormalities including creatinine going up to around 10 potassium 6.2 very low magnesium of 0.9 nephrology was consulted. As per nephrology patient will lead hemodialysis, consult to vascular surgery was placed for hemodialysis catheter placement and patient will be subsequently started on hemodialysis. Patient does have advanced COPD uses about 5 L of oxygen. 07/28/2021 Patient is seen and evaluated and follow-up has received hemodialysis catheter and is receiving hemodialysis today. Kidney functions improving and patient reports to producing more urine. Current creatinine is 7.6 today potassium is 5.5 and sodium is 139. Blood sugars have been more manageable and will continue current regimen. Patient continues on 5 L via nasal cannula which is chronic for him. Nephrology following closely and will continue with dialysis daily at this time. Patient is also maintained on IV Lasix and will continue. Patient denies chest pain, shortness of breath, or palpitations. Patient is afebrile. No nausea or vomiting noted and patient is tolerating diet. subjective: resume the care of the pt today 07/29/2021 This is a pleasant 65 years old male with stage IV chronic kidney disease presents with fatigue and worsening kidney function requiring hemodialysis which is a started during this admission after a catheter placed in the right groin. He is hemodynamically stable, he is on 5 L per minute of oxygen but saturating 98-99%, we will try to titrate his oxygen down. No much dyspnea or cough and while he is lying flat in bed but he feels very weak all over. His been having recurrent nausea vomiting, mainly worked first of this morning but he is fully awake with no headache. No abdominal pain. He is hemodynamically stable, hemoglobin 7.4 with evidence of chronic anemia, also he is on ferrous sulfate once daily at home. This currently on home dose of liquids 2.5 and IV Lasix 60 mg twice daily. Ultrasound of the abdomen showing no hydronephrosis or nephrolithiasis. And chest x-ray showed small right pleural effusion with atelectasis. Also patient has chronic left leg wound secondary to a fall about 3 months ago. Patient refused to take the dressing off. We consulted once care. Patient is on Zofran already, we added Phenergan. We ordered a KUB. Also ask for PT OT evaluation. WOUND TEAM CONSULT 07/30/2021 Patient awake alert, no much tachypnea but he stayed in bed most of the time, he still at baseline of 4 L/m of oxygen. However patient reports coughing a lot and making a lot of phlegm, he said he has been diagnosed with pneumonia 2 weeks ago. Actually chest x-ray from yesterday showing bilateral infiltrate, I reviewed the chest x-ray by myself and it looks worse compared to admission despite starting him on a new hemodialysis and receiving Lasix for his CHF. Also we checked his pro-calcitonin and it is elevated at 0.5 for which is consistent with infection with this constellation of CHF, chest x-ray findings a nd elevated pro-calcitonin. Most likely and high suspicion for hospital acquired pneumonia and patient is a started on Zosyn last night. We going to repeat chest x-ray tomorrow morning. Bladder scan show minimal urine, Flomax was discontinued. Wound care R following the patient for his left foot wound. 07/31/2021 Patient seen in bed most of the time, physical therapy recommended rehab, I talk ed to him today about this recommendation and he is refusing now. He still on 4 L oxygen nasal cannula which looks like he is this is his baseline however he has coarse crepitation looks like it comes from secretion with decreased air entry on both sides, patient confirms to me he has history of COPD. However I would recommend he follow up with a sugar cane planter machine operator as an outpatient. Repeat chest x-ray today showing no worsening infiltrate however it shows Similar multifocal airspace opacities. Correlate for congestive heart failure and/or diffuse airspace disease in the meantime we will keep him on Zosyn and check a pro-calcitonin tomorrow, if improvement we may consider oral antibiotic. However started on Solu-Medrol 60 mg 3 times a day today. He is kept on IV Lasix and hemodialysis I discussed the case with nephrology team and they recommended the permacath prior to discharge, discussed with bed side nurse to inform surgical vascular team. Workup showing anemia of chronic disease and he was started on arenasept by electrifier operator. 08/01/2021 Patient clinically is doing well generally, he is breathing quietly, he is tolerating diet well, no bowel movement today Nephrology team on the case and plan for him to get the permacath by vascular surgery team hopefully tomorrow. Also his evidence of COPD exacerbation which is improving therefore Solu-Medrol our to 40 mg twice a day. Pro-calcitonin still elevated 0.68, currently on Zosyn, sputum cultures pending. However patient only having cough and phlegm which is pending as above. Saturation is 4-5 L/m which is his baseline. Rehab is recommended but patient was reluctant so far. 08/02/2021 Patient is lying in bed most of the time, his breathing is at baseline and is improving with less crepitation but he is coughing a lot . His oxygen requirement at baseline on 4 L/m which is his home dose. his hemoglobin dropped today to 5.7, his workup showing anemia of chronic disease despite being an IV and oral iron, workup showing anemia of chronic disease but cannot rule out GI bleed especially he's on liquids which is on hold today before going for procedure. Therefore we going to consult GI service in any way. Occult blood in his stool test is requested. Patient states he has 3- 4 loose bowel movements, we will check C. diff as well. No abdominal pain or vomiting. Patient is going for permacath placement today and hemodialysis tomorrow, he got hemodialysis this morning. Patient adamantly refusing to go to rehab despite recommendation for medical and nephrology team on several occasions. Patient and make his own decisions. 08/03/2021 Patient now wake and breathing comfortably at baseline, he is less coughing compared to yesterday after started on Robitussin D but today he wants to, more so I can bring stuff up out of his chest, therefore we change his Robitussin into when necessary dosing and he was informed. No chest pain or other symptoms. However there was some concerns of pulmonary congestion there for his colonoscopy/EGD for tomorrow is rescheduled until . He is placed on liquid diet therefore we lowered his Levemir form 25 units which is home dose down to 10 units tonight. His chest x-ray looks the same Reticulocyte count is 1.5 but he got one unit of transfusion. Currently hemo globin is holding at 8.1, glucose control, magnesium normal at 2.2, sodium at 1:30 and he is saturating at 4-5 L/m which is home dose. Diarrhea stopped, occult blood in stool is negative and C. diff negative. However still patient has possible GI bleed given his severe anemia while on Eliquis Repeat pro-calcitonin is pending, he remains on Zosyn He is complaining of from left wrist pain, deformity and decreased wall cleaner secondary to fracture happened in May, he supposed to follow up with his o rthopedic doctor Wilmer however he was noncompliant, repeat left wrist x-ray looks the same, orthopedic input is appreciated they recommended no surgical intervention but follow-up outpatient while he is in splint Eliquis remains on hold after EGD/colonoscopy for sever anemia and possible GI bleed 08/04/2021 Patient today was 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 Repeat CT of the chest today showed no evidence of pulmonary embolism and there is extensive bilateral infiltrates concerning for aspiration. Currently he is saturating 98% on FiO2 of 50% and respiratory rate of 26. Labs reviewed and showing WBC of 14.6, creatinine down to 1.6, hemoglobin 10, potassium after placement 3.4. Patient labs reviewed remains on Zosyn, Pro-calcitonin is improving down to 0.3 prior to this episode of aspiration. Patient remains afebrile for now. His Eliquis remains on hold in view of his history of A. fib due for suspected GI bleed. Patient remains on Zosyn, Protonix and insulin sliding scale. Also patient placed on Lasix 80 mg daily and receives an extra dose this morning. While insulin 10 units is held 08/05/2021 Patient remains in the ICU sedated and intubated. He is off Levophed today. Metoprolol was held yesterday and his blood pressure improved, and this morning 87/54 and his rate was sinus rhythm at 93, no evidence of A. fib and RVR given his history of similar problem. Hemoglobin 7.9, which is known he is anemic, his Eliquis is still on hold for possible GI bleed with planned to undergo EGD/colonoscopy at certain point per GI team her on the case. Creatinine went up to 0.8. He is undergoing hemodialysis. Chest x-ray showed some improvement by a radiologist Remains on IV Zosyn for his recurrent aspiration pneumonia. Also Lasix was held. His prognosis remains guarded 08/07/2021 Patient is seen and evaluated and follow-up continues to be in the ICU on mechanical vent. Patient currently receiving hemodialysis and is currently off Levophed although being used as needed for blood pressures that are on the lower side. Patient continues on mechanical ventilation with an FiO2 of 40% and PEEP is 5 with multiple medical consultations are following. Hemoglobin is stable at 7.7 with no active bleeding noted. Patient also continues on IV Zosyn. Sputum cultures thus far are negative. Pulmonary following and highly suspicious for aspiration pneumonia. Recommend continue with breathing inhalational treatments and close monitoring. Chest x-ray today shows left upper lung edema and/or infiltrate and bibasilar atelectasis and/or infiltrates on the background with chronic changes and mild cardiomegaly redemonstrated with no significant change from one day previously. 08/08/2021 Patient continues to be monitored closely in the ICU on mechanical ventilation and currently intubated. FiO2 is 40% with PEEP of 5 . Sedation holidays being conducted on a daily basis to wean and possible extubate. Patient not quite ready for extubation at this time. FiO2 will be decreased to 30%. Chest x-ray today shows bilateral upper lung edema and/or infiltrates and bibasilar atelect asis and/or infiltrate some background chronic changes with mild cardiomegaly redemonstrated with no significant change from yesterday. Hemoglobin is stable at 7.4, WBC 13.2, kidney functions improving and creatinine is currently 2.33 and is continued on dialysis and expected to receive a session of hemodialysis in the morning. Repeat a.m. labs ordered and will continue to monitor closely. 08/09/2021 This 65-year-old with chronic respiratory failure uses her on 5 L of oxygen at home as her multiple medical problems including congestive heart failure diastolic dysfunction cardiac renal syndrome on hemodialysis. Patient has multiple other medical problems his prognosis is extremely poor patient is extubated today patient is intubated and multifactorial respiratory failure including COPD exacerbation pulmonary edema and pneumonia in the left lung. Patient is quite a bit tired patient has a fecal management system as well as a Werner catheter patient is not urinating much fecal management system did show blood because of which I'm consulting general surgery, patient's hemoglobin did drop will transfuse him 1 unit of PRBC patient last hemodialysis was yesterday patient probably will need to undergo hemodialysis today patient is quite tired and weak unable to even cough. She is presently on Zosyn and vancomycin 08/10/2021 Patient is seen and evaluated in follow-up this morning continues to be in the ICU closely monitored. Patient is status post extubation yesterday and curre ntly maintained on 4 L. Patient receiving hemodialysis today with nephrology following closely. Pulmonary power driven brush maker also following along with general surgery and patient underwent bowel capsule study to assess for bleeding which was negative on the one-hour marker. Patient has been transitioned off of steroids and blood sugars improving and will decrease the dose of long-acting and continue sliding scale and monitor Accu-Cheks before meals and at bedtime closely. Sputum cultures preliminary positive and awaiting finalized cultures and will continue with IV antibiotics at this time. WBC is elevated at 29.0 and hemoglobin is stable at 8.9. Patient remains somewhat hypotensive during di alysis and is currently off pressors. 08/12/2021 Patient is still in the ICU monitored closely, he is status post extubation, is currently on baseline of 4 L/m, with minimal respiratory symptoms, actually patient is asked to go home, explained to him is not medically ready and he agrees to stay. He is hemodynamically stable, blood pressure is borderline 92/50, asymptomatic. Hemoglobin 7.8 compared to 7.4 upon admission, WBC is 21.8 and creatinine 2.6 while he is on hemodialysis. He is status post permacath in the right upper chest. Also has episodes of GI bleed, currently hemoglobin is stable. Felix on hold, surgical team with planned for EGD/colonoscopy on Monday. Continue with IV El iquis He is covered with Zosyn for his Corynebacterium and serratia species Glucose controlled Patient refusing rehab Long-term prognosis is poor. As patient has complicated multiple medical problems on the top of his none strict compliance medical regiment and treatment plan 08/13/2021 Patient awake with no respiratory distress today, he is saturating high 90s on 4 L oxygen which is his home dose. He is hemodynamically stable. Glucose is controlled. Lap still pending. Chest x-ray: Report is pending, I reviewed myself that looks similar infiltrates or slightly better with new left pleural effusion. Patient is going for hemodialysis today He is kept on IV Zosyn for now. Also he is on a clear liquid diet with anticipation for endoscopy by surgery team on this coming Monday for his anemia and possible GI bleed 08/14/2021 Patient awake and alert however is little bit more tachypneic today at 25 mL/h, more hypoxic requiring 6 L/m although his reason quietly in the room. Chest x-ray showing bilateral infiltrates and left pleural effusion with evidence of COPD, image reviewed by myself. His hemoglobin 7.0, his Eliquis is on hold in plan for EGD/colonoscopy tomorrow. No evidence of active bleeding. WBC is 18,000, creatinine 3.3 and Hemodialysis will be Monday in 2 days. I agree with change antibiotics to cefepime since serratia is resistant to Zosyn which is stopped yesterday. Continue with Protonix 40 mg IV and Levemir 15 units with glucose controlled 08/15/2021 Patient remains in the ICU and actually today he is doing worse, is more confused and tired and has presented difficulty, he has no ability to eat and even had difficulty taking his pills by the bedside nurse. Since yesterday his oxygen requirement went up to 6 L/m on today's [place] is slightly tachypneic but he has limited air entry, systemic steroids was held because of his bleeding and patient supposed to go for EGD/colonoscopy tomorrow but because of his declining clinical status we could not take the preparation and this procedure was helped by surgery team. Also there is concerned about aspiration therefore we will put the patient nothing by mouth for now and keep monitoring. Received 1 extra dose of IV Lasix 80 mg, we will going to give him in one time dose of Levaquin today on the top of his cefepime started yesterday. His blood pressure this morning is 93/50, with a rate is 19-25. He is afebrile. Hemoglobin dropped to 6.8 and slightly trending down which may goes with GI bleed. It was of blood from GI. We are going to give him an excellent dose of Protonix this morning and switch it to twice daily. chest x-ray showing bilateral pleural effusion, left more than right. Similar chest x-ray from yesterday. Patient currently remains full code I did discuss with his daughter chaya who is next of kin at [phone] and updated her about her father condition, she confirmed to me he wants him to be full code 08/16/2021 Patient is seen and evaluated in follow-up continues to be closely monitored in the ICU with multiple medical consultations following. Patient is extremely lethargic and minimally arousable per nursing staff. Hemoglobin was low today and awaiting to receive a unit of PRBCs. Patient would be unable to attempt bowel prep as patient failed swallow evaland unable to further assess for any bleeding at this time and will need to be scheduled in the outpatient setting once more stable. Per nursing staff there is been a consultation to hospice placed as well for informational as patient clinically continues to deteriorate. Patient had a swallow eval done per nursing staff and failed the swallow. Patient continues to be confused at this time. Patient on levophed and is also continued on IV cefepime. Review of systems: Unable to obtain as patient is lethargic and confused All medications have been reviewed Active Medications Albuterol/Ipratropium (Ipratropium-Albuterol 3 Ml Neb) 3 ml INHALATION RT-Q4H PRN PRN Reason: Shortness Of Breath Last Admin: 08/04/21 00:33 Dose: 3 ml Documented by: Albuterol/Ipratropium (Ipratropium-Albuterol 3 Ml Neb) 3 ml INHALATION RT-Q4H [facility] Last Admin: 08/16/21 12:22 Dose: 3 ml Documented by: Allopurinol (Allopurinol 100 Mg Tab) 200 mg PO DAILY@1400 [facility] Last Admin: 08/16/21 14:25 Dose: Not Given Documented by: Artificial Tears (Artificial Tears-Hypromellose Drops 15 Ml Btl) 2 drops BOTH EYES TID PRN PRN Reason: Dry Eye(s) Ascorbic Acid (Ascorbic Acid 500 Mg Tab) 1,000 mg PO BID [facility] Last Admin: 08/16/21 08:09 Dose: Not Given Documented by: Atropine Sulfate (Atropine Ophth Soln 1% 5ml Btl) 2 drops SUBLINGUAL Q4HR PRN PRN Reason: Excess Secretions Last Admin: 08/15/21 16:49 Dose: 2 drops Documented by: Budesonide (Budesonide 1 Mg/2 Ml Nebu) 1 mg INHALATION RT-BID [facility] Last Admin: 08/16/21 08:25 Dose: 1 mg Documented by: Cholecalciferol (Cholecalciferol 25 Mcg (1000 Iu) Tablet) 25 mcg PO DAILY [facility] Last Admin: 08/16/21 08:09 Dose: Not Given Documented by: Darbepoetin Hubert (Darbepoetin Hubert 60 Mcg/0.3 Ml Syringe) 60 mcg SQ Q7D [facility] Last Admin: 08/15/21 22:09 Dose: 60 mcg Documented by: Formoterol Fumarate (Formoterol Fumarate 20 Mcg/2 Ml Nebu) 20 mcg INHALATION RT-BID [facility] Last Admin: 08/16/21 08:25 Dose: 20 mcg Documented by: Hydromorphone HCl (Hydromorphone 1 Mg/Ml 1 Ml Syringe) 1 mg IVP Q2HR PRN PRN Reason: Pain Last Admin: 08/16/21 10:12 Dose: 1 mg Documented by: Cefepime HCl 1 gm/ Sodium (Chloride) 50 mls @ 12.5 mls/hr IVPB Q12HR [facility]; Protocol Last Admin: 08/16/21 08:02 Dose: 12.5 mls/hr Documented by: Norepinephrine Bitartrate 4 mg (/ Sodium Chloride) 254 mls @ 17.621 mls/hr IV .[id number] [facility]; Protocol Last Titration: 08/16/21 13:39 Dose: 0.07 mcg/kg/min, 24.67 mls/hr Documented by: Insulin Aspart (Insulin Aspart (Novolog) 100 Unit/Ml Vial) 0 unit SQ ACHS [facility]; Protocol Last Admin: 08/16/21 12:19 Dose: Not Given Documented by: Insulin Detemir (Insulin Detemir (Levemir) 100 Unit/Ml Syr) 15 unit SQ DAILY@0700 [facility] Last Admin: 08/16/21 07:07 Dose: 15 unit Documented by: Levothyroxine Sodium (Levothyroxine 25 Mcg Tab) 25 mcg PO DAILY@0630 [facility] Last Admin: 08/16/21 05:37 Dose: Not Given Documented by: Metoprolol Tartrate (Metoprolol Tartrate 25 Mg Tab) 25 mg PO BID [facility] Last Admin: 08/16/21 08:09 Dose: Not Given Documented by: Miscellaneous Information (Magnesium Replacement Protocol 1 Each Misc) 1 each MISCELLANE DAILY PRN; Protocol PRN Reason: Per Protocol Naloxone HCl (Naloxone 0.4 Mg/Ml 1 Ml Vial) 0.2 mg IV Q2M PRN PRN Reason: Opioid Reversal Pantoprazole Sodium (Pantoprazole 40 Mg/10 Ml Vial) 40 mg IV BID [facility] Last Admin: 08/16/21 08:02 Dose: 40 mg Documented by: Scopolamine (Scopolamine 1.5mg/72hr Patch) 1 patch TRANSDERM Q72H [facility] Last Admin: 08/15/21 16:49 Dose: 1 patch Documented by: Sevelamer Carbonate (Sevelamer 800 Mg Tab) 800 mg PO TID-W/MEALS [facility] Last Admin: 08/16/21 12:20 Dose: Not Given Documented by: Physical exam: GENERAL: The patient is alert and oriented x2-3, quite tired, ill-appearing, extremely lethargic EENT: Pupils are round and equally reacting to light. EOMI. No scleral icterus. No conjunctival pallor. Normocephalic, atraumatic. No pharyngeal erythema. No thyromegaly. CARDIOVASCULAR: S1 and S2 present. No murmurs, rubs, or gallops. PULMONARY: basilar crackles and rhonchi ABDOMEN: Soft, nontender, nondistended, normoactive bowel sounds. No palpable organomegaly. Fecal management system and a Werner catheter MUSCULOSKELETAL: No joint swelling or deformity. EXTREMITIES: No cyanosis, clubbing, or pedal edema. NEUROLOGICAL: muscle atrophy of bilateral lower extremities. SKIN: No rashes. Assessment: - Recurrent aspiration leading to respiratory distress and status post extubation. Sputum culture is growing Corynebacterium and Adama - acute diastolic congestive heart failure secondary to cardiorenal - Acute COPD exacerbation - Acute kidney injury on stage IV CKD, started on HD during this admission - Normochromic normocytic anemia with suspected GI bleed, recurrent - anasarca secondary to cardiorenal syndrome as mentioned above. Hemodialysis per nephrology - Anemia of chronic disease, with recent drop in hemoglobin. Rule out GI bleed, unable to perform endoscopies as failing swallow - Loose bowel movement, C. diff colitis ruled out - Hypomagnesemia, replaced per Protocol - Chronic respiratory failure secondary to COPD , 5 L of oxygen at home. There is evidence of acute exacerbation - Possible pneumonia, hospital-acquired with elevated procalcitonin 0.5 - Hypertension - Hyperlipidemia - Hypothyroidism - History of recent fall and fracture to the left wrist with malunion noted - Paroxsymal atrial fibrillation presently rate controlled patient does have sick sinus syndrome history patient has a pacemaker - Type 2 diabetes mellitus - DVT prophylaxis - GI prophylaxis - full code Plan: Patient currently maintained on 4-5 L via nasal cannula Multiple medical consultations following including pulmonary power driven brush maker, nephrology and will continue. Patient is maintained on hemodialysis and currently receiving dialysis today. Gen. surgery also following in regards to anemia workup and unable to swallow at this time and would not tolerate prep and will need to be evaluated if patient more stable. hemoglobin low at 6.4 today and awaiting to receive a unit of PRBC, will repeat am labs Recommend continue close ICU management PT/OT to evaluate the patient as patient is extremely weak Recommend repeat labs in the morning Recommend patient continue with IV antibiotics Continue monitoring accuchecks achs, patient is not eating and failed swallow and dietitician consulted Hospice informational consult was placed and pending at this time. Overall prognosis is extremely poor and guarded. The impression and plan of care has been dictated by Rochelle Salinas, Nurse Practitioner as directed. Dr. Garo MD I have performed a history and examination and MDM of this patient, discussed the same with the dictator, and agree with the dictator's assessment and plan as written ,documented as a scribe. Based on total visit time, I have performed more than 50% of the visit. Objective - Vital Signs Vital signs: Vital Signs Temp 98.2 F 08/16/21 09:00 Pulse 112 H 08/16/21 09:00 Resp 31 H 08/16/21 09:00 BP 105/60 08/16/21 09:00 Pulse Ox 91 L 08/16/21 09:00 Intake & Output 08/15/21 08/16/21 08/16/21 18:59 06:59 18:59 Intake Total 280 110 80 Output Total 31 15 0 Balance 249 95 80 Weight 92.4 kg Intake: IV 280 110 80 0.9 Normal Saline @ 10mL/ 130 110 30 hr - KVO Cefepime 1 gm In Sodium 50 50 Chloride 0.9% 50 ml @ 12. 5 mls/hr IVPB Q12HR [facility] Rx#:[id number] Levofloxacin 500Mg-D5w 100 Pmx 500 mg In Dextrose/ Water 1 100ml.bag @ 100 mls/hr IVPB [facility] Rx#: [id number] Blood Product 0 Rc As-1 Unit 0 [id number] Output: Urine 31 15 0 Other: Voiding Method Indwelling Catheter Indwelling Catheter ABP, PAP, CO, CI - Last Documented Arterial Blood Pressure 103/50 - Labs CBC & Chem 7: 08/16/21 04:58 08/16/21 04:58 Labs: Abnormal Lab Results - Last 24 Hours (Table) 08/15/21 08/15/21 08/15/21 Range/Units 11:15 20:09 21:11 WBC (3.8-10.6) k/uL RBC (4.30-5.90) m/uL Hgb (13.0-17.5) gm/dL Hct (39.0-53.0) % MCHC (31.0-37.0) g/dL RDW (11.5-15.5) % Neutrophils # (1.3-7.7) k/uL Lymphocytes # (1.0-4.8) k/uL Chloride (98-107) mmol/L Carbon Dioxide (22-30) mmol/L BUN (9-20) mg/dL Creatinine (0.66-1.25) mg/dL POC Glucose (mg/dL) 103 H 70 L 70 L (75-99) mg/dL Phosphorus (2.5-4.5) mg/dL Crossmatch 08/16/21 08/16/21 08/16/21 Range/Units 04:58 04:58 04:58 WBC 22.6 H (3.8-10.6) k/uL RBC 2.16 L (4.30-5.90) m/uL Hgb 6.4 L* (13.0-17.5) gm/dL Hct 21.3 L (39.0-53.0) % MCHC 30.0 L (31.0-37.0) g/dL RDW 16.9 H (11.5-15.5) % Neutrophils # 20.5 H (1.3-7.7) k/uL Lymphocytes # 0.9 L (1.0-4.8) k/uL Chloride 113 H (98-107) mmol/L Carbon Dioxide 15 L (22-30) mmol/L BUN 37 H (9-20) mg/dL Creatinine 5.70 H (0.66-1.25) mg/dL POC Glucose (mg/dL) (75-99) mg/dL Phosphorus 7.1 H (2.5-4.5) mg/dL Crossmatch See Detail Microbiology - Last 24 Hours (Table) 08/09/21 09:20 Blood Culture - Final Blood No Growth after 144 hours
[2021-08-17] MEDS: NOREPINEPHRINE 4 MG in SODIUM CHLORIDE 0.9% 250 ML IV SCH ×2 (01:42→17:31)
[2021-08-17] MEDS: IPRATROPIUM-ALBUTEROL 3 ML NEB INHALATION SCH ×6 (03:25→23:19)
[2021-08-17 07:03] LABS: Glucose,Whole Blood 91 mg/dL (75-99)
[2021-08-17] MEDS: LEVOTHYROXINE 25 MCG TAB PO SCH (07:09)
[2021-08-17] MEDS: INSULIN DETEMIR (LEVEMIR) 100 UNIT/ML SYR SQ SCH (07:09)
[2021-08-17 08:05] LABS: Anisocytosis Slight; HCT 24.8 % (39.0-53.0); HGB 7.4 gm/dL (13.0-17.5); Hypochromasia Marked; MCH 29.2 pg (25.0-35.0); MCHC 29.9 g/dL (31.0-37.0); MCV 97.7 fL (80.0-100.0); Macrocytosis Slight; Mean Platelet Volume 8.2; Platelet Count 314 k/uL (150-450); Poikilocytosis Slight; RBC 2.54 m/uL (4.30-5.90); RDW 16.7 % (11.5-15.5); WBC 22.8 k/uL (3.8-10.6)
[2021-08-17] MEDS: FORMOTEROL FUMARATE 20 MCG/2 ML NEBU INHALATION SCH ×2 (08:28→20:31)
[2021-08-17] MEDS: BUDESONIDE 1 MG/2 ML NEBU INHALATION SCH ×2 (08:28→20:31)
[2021-08-17] MEDS: INSULIN ASPART (NovoLOG) 100 UNIT/ML VIAL SQ SCH ×4 (09:04→21:15)
[2021-08-17] MEDS: CHOLECALCIFEROL 25 MCG (1000 IU) TABLET PO SCH (09:04)
[2021-08-17] MEDS: ASCORBIC ACID 500 MG TAB PO SCH ×2 (09:04→20:28)
[2021-08-17] MEDS: SEVELAMER 800 MG TAB PO SCH ×3 (09:04→17:30)
[2021-08-17] MEDS: METOPROLOL TARTRATE 25 MG TAB PO SCH ×2 (09:05→20:29)
[2021-08-17] MEDS ORDERED: DEXTROSE 5% IN WATER 1,000 ML IV ONE (09:26)
[2021-08-17] MEDS: CEFEPIME 1 GM in SODIUM CHLORIDE 0.9% 50 ML IVPB SCH ×2 (09:27→21:14)
[2021-08-17] MEDS: PANTOPRAZOLE 40 MG/10 ML VIAL IV SCH ×2 (09:27→21:14)
--- NOTE | 2021-08-17 09:29 | P.PN ---
Subjective Patient is seen in follow-up for acute kidney injury on chronic kidney disease, hemodialysis dependent. Currently on 4 L nasal cannula. Blood pressure stable. On Levophed. Remains confused. No active bleeding per the nurse. Hemoglobin 7.4 today. No problems with dialysis yesterday. Tolerated 2 L ultrafiltration. Vital signs are stable. On low-dose Levophed. General: Awake. No acute distress. HEENT: Head exam is unremarkable. LUNGS: Breath sounds decreased. HEART: Rate and Rhythm are regular. ABDOMEN: Soft, no distention. EXTREMITITES: No edema. Objective - Vital Signs Vital signs: Vital Signs Temp 96.8 F L 08/17/21 04:00 Pulse 103 H 08/17/21 08:54 Resp 22 08/17/21 07:00 BP 111/56 08/17/21 07:00 Pulse Ox 82 L 08/17/21 08:54 Intake & Output 08/16/21 08/17/21 08/17/21 18:59 06:59 18:59 Intake Total 672.380 280.078 30 Output Total 1999 20 0 Balance -1327.620 260.078 30 Weight 92.4 kg 91.7 kg Intake: IV 170 160.0 30 0.9 Normal Saline @ 10mL/ 120 110 30 hr - KVO Cefepime 1 gm In Sodium 50 50.0 Chloride 0.9% 50 ml @ 12. 5 mls/hr IVPB Q12HR [facility] Rx#:[id number] Intake, IV Titration 142.380 120.078 Amount Norepinephrine 4 mg In 142.380 120.078 Sodium Chloride 0.9% 250 ml @ 0.05 MCG/KG/MIN 17. 621 mls/hr IV .[id number] [facility] Rx#:[id number] Blood Product 310 Rc As-1 Unit 310 [id number] Other 50 Rc As-1 Unit 50 [id number] Output: Urine 0 20 0 Hemodialysis 1999 Other: Voiding Method Indwelling Catheter Indwelling Catheter ABP, PAP, CO, CI - Last Documented Arterial Blood Pressure 103/50 - Labs CBC & Chem 7: 08/17/21 07:22 08/17/21 07:22 Labs: Abnormal Lab Results - Last 24 Hours (Table) 08/16/21 08/17/21 08/17/21 Range/Units 04:58 07:22 07:22 WBC 22.8 H (3.8-10.6) k/uL RBC 2.54 L (4.30-5.90) m/uL Hgb 7.4 L (13.0-17.5) gm/dL Hct 24.8 L (39.0-53.0) % MCHC 29.9 L (31.0-37.0) g/dL RDW 16.7 H (11.5-15.5) % Sodium 150 H (137-145) mmol/L Chloride 118 H (98-107) mmol/L Carbon Dioxide 20 L (22-30) mmol/L BUN 23 H (9-20) mg/dL Creatinine 4.33 H (0.66-1.25) mg/dL Crossmatch See Detail Assessment and Plan Plan: Assessment: 1. Acute kidney injury secondary to ATN, currently hemodialysis dependent. Has a permacath. Maintained on Monday schedule. Oliguric. 2. 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 Serologies mostly negative except for mildly low C3 level. 3. Volume overload. Improved with ultrafiltration. 4. Acute on chronic diastolic CHF. 5. Acute blood loss anemia. Received blood transfusions this admission. On Aranesp. 6. A. fib. 7. Chronic kidney disease mineral bone disease. Phosphorous 7.1 dated 08/16/2021. On Renvela. 8. Metabolic acidosis secondary to acute kidney injury. Improved postdialysis. 9. Hypernatremia from lack of oral water intake. 10. Hypercalcemia. Urine immunofixation showed no Bence-Fonseca proteins. Plan: Hemodialysis tomorrow. Start D5W at 50 mL an hour. Monitor for renal recovery outpatient. DC Werner catheter. Add oral bicarb. Stop vitamin D.
[2021-08-17] MEDS: SODIUM BICARBONATE TAB 650 MG TAB PO SCH ×2 (09:48→20:29)
--- NOTE | 2021-08-17 10:34 | P.PN ---
Subjective Progress Note Date: 08/17/21 The patient is seen today 08/17/2021 in follow-up in the intensive care unit. He is still quite weak and debilitated. Confused. Unable to tolerate oral intake. He's remains on aspiration precautions. He is requiring 15 L high flow nasal cannula to maintain O2 saturations in the high 80s. He remains tachycardic. He remains hypotensive and on norepinephrine at 0.05 mcg/kg/m. He has 0.9 normal saline at 10 MLS per hour. Remains on antibiotics in the form of cefepime. Sputum cultures positive for Serratia marcescens back on 08/09/2021. White count 22.8. Hemoglobin 7.4. Platelets 314. Sodium 150. Potassium 4.0. Bicarb 20. BUN 23. Creatinine 4.33. Glucose 86. He is continued on DuoNeb inhalations, Pulmicort and Perforomist inhalations. His lower extremities reveal changes of chronic venous stasis. There is an ulcer of the left foot. Objective - Vital Signs Vital signs: Vital Signs Temp 98.1 F 08/17/21 08:00 Pulse 105 H 08/17/21 09:00 Resp 26 H 08/17/21 09:00 BP 134/78 08/17/21 09:00 Pulse Ox 89 L 08/17/21 09:00 Intake & Output 08/16/21 08/17/21 08/17/21 18:59 06:59 18:59 Intake Total 672.380 280.078 216.259 Output Total 2000 20 0 Balance -1327.620 260.078 216.259 Weight 92.4 kg 91.7 kg Intake: IV 170 160.0 30 0.9 Normal Saline @ 10mL/ 120 110 30 hr - KVO Cefepime 1 gm In Sodium 50 50.0 Chloride 0.9% 50 ml @ 12. 5 mls/hr IVPB Q12HR [facility] Rx#:[id number] Intake, IV Titration 142.380 120.078 186.259 Amount Norepinephrine 4 mg In 142.380 120.078 186.259 Sodium Chloride 0.9% 250 ml @ 0.05 MCG/KG/MIN 17. 621 mls/hr IV .[id number] [facility] Rx#:[id number] Blood Product 310 Rc As-1 Unit 310 [id number] Other 50 Rc As-1 Unit 50 [id number] Output: Urine 0 20 0 Hemodialysis 1999 Other: Voiding Method Indwelling Catheter Indwelling Catheter ABP, PAP, CO, CI - Last Documented Arterial Blood Pressure 103/50 - Exam GENERAL EXAM: Alert, weak, debilitated, confused 65-year-old male patient, on 15 L high flow nasal cannula, currently in no acute distress. HEAD: Normocephalic. EYES: Normal reaction of pupils, equal size. NOSE: Clear with pink turbinates. THROAT: No erythema or exudates. NECK: No masses, no JVD. CHEST: No chest wall deformity. LUNGS: Equal air entry with bilateral scattered rhonchi, diminished. CVS: S1 and S2 normal with no audible murmur, regular rhythm. ABDOMEN: No hepatosplenomegaly, normal bowel sounds, no guarding or rigidity. SPINE: Kyphoscoliosis SKIN: Areas of breakdown. He has a 2-3 cm ulcer over the left foot. Cultures of the wrist. CENTRAL NERVOUS SYSTEM: No focal deficits, tone is normal in all 4 extremities. EXTREMITIES: Changes of chronic venous stasis. Ulcer over the left foot. Peripheral pulses are intact. - Labs CBC & Chem 7: 08/17/21 07:22 08/17/21 07:22 Labs: Abnormal Lab Results - Last 24 Hours (Table) 08/16/21 08/17/21 08/17/21 Range/Units 04:58 07:22 07:22 WBC 22.8 H (3.8-10.6) k/uL RBC 2.54 L (4.30-5.90) m/uL Hgb 7.4 L (13.0-17.5) gm/dL Hct 24.8 L (39.0-53.0) % MCHC 29.9 L (31.0-37.0) g/dL RDW 16.7 H (11.5-15.5) % Sodium 150 H (137-145) mmol/L Chloride 118 H (98-107) mmol/L Carbon Dioxide 20 L (22-30) mmol/L BUN 23 H (9-20) mg/dL Creatinine 4.33 H (0.66-1.25) mg/dL Crossmatch See Detail Assessment and Plan Assessment: 1 Acute hypoxemic respiratory failure, requiring intubation and mechanical ventilation on 08/04/2021. The patient is a hypoxic respiratory failure is obviously multifactorial. The patient has advanced COPD. There was a component of fluid overload and the patient have a left lung consolidation is noted on the chest x-ray and a CAT scan of the chest in the sputum analysis was positive for Serratia marcescens and the patient is currently on IV cefepime. The most recent chest x-ray showing a component of pulmonary vascular ingestion and left lower lobe pulmonary infiltrate and the patient remains on 15 L of O2 by nasal cannula. He is having difficulties with cough and congestion. He may be also aspirating and for that reason he'll be kept nothing by mouth 2 Concern for aspiration, keep nothing by mouth for now and speech therapy consult 3 Acute lower GI bleeding, currently inactive in stable and the patient remains off anticoagulation. During the course of this admission, the patient received a total of 6 units of packed RBC and there were plans to undergo a colonoscopy yet the patient is unable to undergo the bowel cleansing. He remains off anticoagulation. Current hemoglobin 7.4 4 History of chronic atrial fibrillation. Patient currently is off anticoagulation. The current cardiac rhythm is sinus 5 Anemia, acute on chronic with drop in hemoglobin as low as 5.7 due to lower GI bleeding. Current hemoglobin is 7.4 6 Hypernatremia, current sodium 150 7 History of CHF. 8 History of COPD, advanced and the patient is oxygen dependent on outpatient basis 9 History of diabetes mellitus. 10 History of DVT. 11 History of gastroesophageal reflux disease. 12 History of hyperlipidemia. 13 History of hypertension. 14 History of sleep apnea syndrome. 15 History of pneumonia. 16 Chronic hypoxemic respiratory failure, secondary to COPD 17 Left wrist fracture Plan: The patient was seen and evaluated He is currently up to 15 L high flow nasal cannula His overall prognosis is quite poor Recommending hospice/comfort care The patient's family is to be making some decisions this morning In the interim, we'll continue the current treatment plan Remain in aspiration precautions Change IV fluids to D5W at 50 MLS per hour We will continue to follow and make further recommendations based on his clinical status I have personally seen and examined the patient, performed the documentation and the assessment and plan as written. Number of minutes spent on the visit: 10.
[2021-08-17 11:21] LABS: Glucose,Whole Blood 100 mg/dL (75-99)
[2021-08-17] MEDS: allopurinoL 100 MG TAB PO SCH (13:37)
--- NOTE | 2021-08-17 15:38 | P.PN ---
Subjective Progress Note Date: 08/17/21 CHIEF COMPLAINT: GI bleed HISTORY OF PRESENT ILLNESS: Patient remains in the ICU. He has multiple medical problems. Patient failed his bedside swallow eval. Patient is still on aspiration precautions and currently nothing by mouth. He is requiring 15 L high flow nasal cannula. His been tachycardic. He is hypotensive on norepinephrine. No further bloody bowel movements reported. Afebrile WBC is 22.8 hemoglobin 7.4 platelets 314 PHYSICAL EXAM: VITAL SIGNS: Reviewed. GENERAL: Well-developed in no acute distress. HEENT: No sclera icterus. Extraocular movements grossly intact. Moist buccal mucosa. Head is atraumatic, normocephalic. ABDOMEN: Soft. Nondistended. Nontender. NEUROLOGIC: Confused ASSESSMENT: 1. Acute GI bleed 2. Acute blood loss anemia PLAN: -Patient is tentatively scheduled for EGD and colonoscopy on if he is medically stable -Awaiting family's decision regarding hospice -Continue to monitor hemoglobin -Continue supportive care Physician Maintenance Associate note has been reviewed by physician. Signing provider agrees with the documented findings, assessment, and plan of care. Objective - Vital Signs Vital signs: Vital Signs Temp 98 F 08/17/21 12:00 Pulse 107 H 08/17/21 12:27 Resp 11 L 08/17/21 12:00 BP 118/64 08/17/21 12:00 Pulse Ox 95 08/17/21 12:00 Intake & Output 08/16/21 08/17/21 08/17/21 18:59 06:59 18:59 Intake Total 672.380 280.078 366.259 Output Total 2000 20 0 Balance -1327.620 260.078 366.259 Weight 92.4 kg 91.7 kg Intake: IV 170 160.0 30 0.9 Normal Saline @ 10mL/ 120 110 30 hr - KVO Cefepime 1 gm In Sodium 50 50.0 Chloride 0.9% 50 ml @ 12. 5 mls/hr IVPB Q12HR [facility] Rx#:[id number] Intake, IV Titration 142.380 120.078 336.259 Amount Dextrose 5% in Water 1, 150 000 ml @ 50 mls/hr IV . Q20H [facility] Rx#:[id number] Norepinephrine 4 mg In 142.380 120.078 186.259 Sodium Chloride 0.9% 250 ml @ 0.05 MCG/KG/MIN 17. 621 mls/hr IV .[id number] [facility] Rx#:[id number] Blood Product 310 Rc As-1 Unit 310 [id number] Other 50 Rc As-1 Unit 50 [id number] Output: Urine 0 20 0 Hemodialysis 2000 Other: Voiding Method Indwelling Catheter Indwelling Catheter ABP, PAP, CO, CI - Last Documented Arterial Blood Pressure 103/50 - Labs CBC & Chem 7: 08/17/21 07:22 08/17/21 07:22 Labs: Abnormal Lab Results - Last 24 Hours (Table) 08/17/21 08/17/21 08/17/21 Range/Units 07:22 07:22 11:19 WBC 22.8 H (3.8-10.6) k/uL RBC 2.54 L (4.30-5.90) m/uL Hgb 7.4 L (13.0-17.5) gm/dL Hct 24.8 L (39.0-53.0) % MCHC 29.9 L (31.0-37.0) g/dL RDW 16.7 H (11.5-15.5) % Sodium 150 H (137-145) mmol/L Chloride 118 H (98-107) mmol/L Carbon Dioxide 20 L (22-30) mmol/L BUN 23 H (9-20) mg/dL Creatinine 4.33 H (0.66-1.25) mg/dL POC Glucose (mg/dL) 100 H (75-99) mg/dL
[2021-08-17 16:14] LABS: Glucose,Whole Blood 105 mg/dL (75-99)
[2021-08-17 21:14] LABS: Glucose,Whole Blood 126 mg/dL (75-99)
--- NOTE | 2021-08-17 22:22 | P.PN ---
Subjective Progress Note Date: 08/17/21 Patient is a 65-year-old male with multiple medical problems multiple comorbidities was recently discharged from the hospital after he was treated for volume or note from chronic gastritis function and the cardiorenal syndrome. Patient was discharged to rehab facility 2 days into rehab related patient patient went home and started having shortness of breath volume overload diffuse anasarca and pedal edema. Patient is found to be in significant volume or lower chest x-ray showed bilateral pleural effusion although this appears to have improved compared to last admission when he had thoracentesis. Patient has significant lab abnormalities including creatinine going up to around 10 potassium 6.2 very low magnesium of 0.9 nephrology was consulted. As per nephrology patient will lead hemodialysis, consult to vascular surgery was placed for hemodialysis catheter placement and patient will be subsequently started on hemodialysis. Patient does have advanced COPD uses about 5 L of oxygen. 07/28/2021 Patient is seen and evaluated and follow-up has received hemodialysis catheter and is receiving hemodialysis today. Kidney functions improving and patient reports to producing more urine. Current creatinine is 7.6 today potassium is 5.5 and sodium is 139. Blood sugars have been more manageable and will continue current regimen. Patient continues on 5 L via nasal cannula which is chronic for him. Nephrology following closely and will continue with dialysis daily at this time. Patient is also maintained on IV Lasix and will continue. Patient denies chest pain, shortness of breath, or palpitations. Patient is afebrile. No nausea or vomiting noted and patient is tolerating diet. subjective: resume the care of the pt today 07/29/2021 This is a pleasant 65 years old male with stage IV chronic kidney disease presents with fatigue and worsening kidney function requiring hemodialysis which is a started during this admission after a catheter placed in the right groin. He is hemodynamically stable, he is on 5 L per minute of oxygen but saturating 98-99%, we will try to titrate his oxygen down. No much dyspnea or cough and while he is lying flat in bed but he feels very weak all over. His been having recurrent nausea vomiting, mainly worked first of this morning but he is fully awake with no headache. No abdominal pain. He is hemodynamically stable, hemoglobin 7.4 with evidence of chronic anemia, also he is on ferrous sulfate once daily at home. This currently on home dose of liquids 2.5 and IV Lasix 60 mg twice daily. Ultrasound of the abdomen showing no hydronephrosis or nephrolithiasis. And chest x-ray showed small right pleural effusion with atelectasis. Also patient has chronic left leg wound secondary to a fall about 3 months ago. Patient refused to take the dressing off. We consulted once care. Patient is on Zofran already, we added Phenergan. We ordered a KUB. Also ask for PT OT evaluation. WOUND TEAM CONSULT 07/30/2021 Patient awake alert, no much tachypnea but he stayed in bed most of the time, he still at baseline of 4 L/m of oxygen. However patient reports coughing a lot and making a lot of phlegm, he said he has been diagnosed with pneumonia 2 weeks ago. Actually chest x-ray from yesterday showing bilateral infiltrate, I reviewed the chest x-ray by myself and it looks worse compared to admission despite starting him on a new hemodialysis and receiving Lasix for his CHF. Also we checked his pro-calcitonin and it is elevated at 0.5 for which is consistent with infection with this constellation of CHF, chest x-ray findings a nd elevated pro-calcitonin. Most likely and high suspicion for hospital acquired pneumonia and patient is a started on Zosyn last night. We going to repeat chest x-ray tomorrow morning. Bladder scan show minimal urine, Flomax was discontinued. Wound care R following the patient for his left foot wound. 07/31/2021 Patient seen in bed most of the time, physical therapy recommended rehab, I talk ed to him today about this recommendation and he is refusing now. He still on 4 L oxygen nasal cannula which looks like he is this is his baseline however he has coarse crepitation looks like it comes from secretion with decreased air entry on both sides, patient confirms to me he has history of COPD. However I would recommend he follow up with a microbiology manager as an outpatient. Repeat chest x-ray today showing no worsening infiltrate however it shows Similar multifocal airspace opacities. Correlate for congestive heart failure and/or diffuse airspace disease in the meantime we will keep him on Zosyn and check a pro-calcitonin tomorrow, if improvement we may consider oral antibiotic. However started on Solu-Medrol 60 mg 3 times a day today. He is kept on IV Lasix and hemodialysis I discussed the case with nephrology team and they recommended the permacath prior to discharge, discussed with bed side nurse to inform surgical vascular team. Workup showing anemia of chronic disease and he was started on arenasept by digital developer. 08/01/2021 Patient clinically is doing well generally, he is breathing quietly, he is tolerating diet well, no bowel movement today Nephrology team on the case and plan for him to get the permacath by vascular surgery team hopefully tomorrow. Also his evidence of COPD exacerbation which is improving therefore Solu-Medrol our to 40 mg twice a day. Pro-calcitonin still elevated 0.68, currently on Zosyn, sputum cultures pending. However patient only having cough and phlegm which is pending as above. Saturation is 4-5 L/m which is his baseline. Rehab is recommended but patient was reluctant so far. 08/02/2021 Patient is lying in bed most of the time, his breathing is at baseline and is improving with less crepitation but he is coughing a lot . His oxygen requirement at baseline on 4 L/m which is his home dose. his hemoglobin dropped today to 5.7, his workup showing anemia of chronic disease despite being an IV and oral iron, workup showing anemia of chronic disease but cannot rule out GI bleed especially he's on liquids which is on hold today before going for procedure. Therefore we going to consult GI service in any way. Occult blood in his stool test is requested. Patient states he has 3- 4 loose bowel movements, we will check C. diff as well. No abdominal pain or vomiting. Patient is going for permacath placement today and hemodialysis tomorrow, he got hemodialysis this morning. Patient adamantly refusing to go to rehab despite recommendation for medical and nephrology team on several occasions. Patient and make his own decisions. 08/03/2021 Patient now wake and breathing comfortably at baseline, he is less coughing compared to yesterday after started on Robitussin D but today he wants to, more so I can bring stuff up out of his chest, therefore we change his Robitussin into when necessary dosing and he was informed. No chest pain or other symptoms. However there was some concerns of pulmonary congestion there for his colonoscopy/EGD for tomorrow is rescheduled until . He is placed on liquid diet therefore we lowered his Levemir form 25 units which is home dose down to 10 units tonight. His chest x-ray looks the same Reticulocyte count is 1.5 but he got one unit of transfusion. Currently hemo globin is holding at 8.1, glucose control, magnesium normal at 2.2, sodium at 1:30 and he is saturating at 4-5 L/m which is home dose. Diarrhea stopped, occult blood in stool is negative and C. diff negative. 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 Repeat CT of the chest today showed no evidence of pulmonary embolism and there is extensive bilateral infiltrates concerning for aspiration. Currently he is saturating 98% on FiO2 of 50% and respiratory rate of 26. Labs reviewed and showing WBC of 14.6, creatinine down to 1.6, hemoglobin 10, potassium after placement 3.4. Patient labs reviewed remains on Zosyn, Pro-calcitonin is improving down to 0.3 prior to this episode of aspiration. Patient remains afebrile for now. His Eliquis remains on hold in view of his history of A. fib due for suspected GI bleed. Patient remains on Zosyn, Protonix and insulin sliding scale. Also patient placed on Lasix 80 mg daily and receives an extra dose this morning. While insulin 10 units is held 08/05/2021 Patient remains in the ICU sedated and intubated. He is off Levophed today. Metoprolol was held yesterday and his blood pressure improved, and this morning 87/54 and his rate was sinus rhythm at 93, no evidence of A. fib and RVR given his history of similar problem. Hemoglobin 7.9, which is known he is anemic, his Eliquis is still on hold for possible GI bleed with planned to undergo EGD/colonoscopy at certain point per GI team her on the case. Creatinine went up to 0.8. He is undergoing hemodialysis. Chest x-ray showed some improvement by a radiologist Remains on IV Zosyn for his recurrent aspiration pneumonia. Also Lasix was held. His prognosis remains guarded 08/07/2021 Patient is seen and evaluated and follow-up continues to be in the ICU on mechanical vent. Patient currently receiving hemodialysis and is currently off Levophed although being used as needed for blood pressures that are on the lower side. Patient continues on mechanical ventilation with an FiO2 of 40% and PEEP is 5 with multiple medical consultations are following. Hemoglobin is stable at 7.7 with no active bleeding noted. Patient also continues on IV Zosyn. Sputum cultures thus far are negative. Pulmonary following and highly suspicious for aspiration pneumonia. Recommend continue with breathing inhalational treatments and close monitoring. Chest x-ray today shows left upper lung edema and/or infiltrate and bibasilar atelectasis and/or infiltrates on the background with chronic changes and mild cardiomegaly redemonstrated with no significant change from one day previously. 08/08/2021 Patient continues to be monitored closely in the ICU on mechanical ventilation and currently intubated. FiO2 is 40% with PEEP of 5 . Sedation holidays being conducted on a daily basis to wean and possible extubate. Patient not quite ready for extubation at this time. FiO2 will be decreased to 30%. Chest x-ray today shows bilateral upper lung edema and/or infiltrates and bibasilar atelect asis and/or infiltrate some background chronic changes with mild cardiomegaly redemonstrated with no significant change from yesterday. Hemoglobin is stable at 7.4, WBC 13.2, kidney functions improving and creatinine is currently 2.33 and is continued on dialysis and expected to receive a session of hemodialysis in the morning. Repeat a.m. labs ordered and will continue to monitor closely. 08/09/2021 This 65-year-old with chronic respiratory failure uses her on 5 L of oxygen at home as her multiple medical problems including congestive heart failure diastolic dysfunction cardiac renal syndrome on hemodialysis. Patient has multiple other medical problems his prognosis is extremely poor patient is extubated today patient is intubated and multifactorial respiratory failure including COPD exacerbation pulmonary edema and pneumonia in the left lung. Patient is quite a bit tired patient has a fecal management system as well as a Werner catheter patient is not urinating much fecal management system did show blood because of which I'm consulting general surgery, patient's hemoglobin did drop will transfuse him 1 unit of PRBC patient last hemodialysis was yesterday patient probably will need to undergo hemodialysis today patient is quite tired and weak unable to even cough. She is presently on Zosyn and vancomycin 08/10/2021 Patient is seen and evaluated in follow-up this morning continues to be in the ICU closely monitored. Patient is status post extubation yesterday and curre ntly maintained on 4 L. Patient receiving hemodialysis today with nephrology following closely. Pulmonary skidder loader also following along with general surgery and patient underwent bowel capsule study to assess for bleeding which was negative on the one-hour marker. Patient has been transitioned off of steroids and blood sugars improving and will decrease the dose of long-acting and continue sliding scale and monitor Accu-Cheks before meals and at bedtime closely. Sputum cultures preliminary positive and awaiting finalized cultures and will continue with IV antibiotics at this time. WBC is elevated at 29.0 and hemoglobin is stable at 8.9. Patient remains somewhat hypotensive during di alysis and is currently off pressors. 08/12/2021 Patient is still in the ICU monitored closely, he is status post extubation, is currently on baseline of 4 L/m, with minimal respiratory symptoms, actually patient is asked to go home, explained to him is not medically ready and he agrees to stay. He is hemodynamically stable, blood pressure is borderline 92/50, asymptomatic. Hemoglobin 7.8 compared to 7.4 upon admission, WBC is 21.8 and creatinine 2.6 while he is on hemodialysis. He is status post permacath in the right upper chest. Also has episodes of GI bleed, currently hemoglobin is stable. Felix on hold, surgical team with planned for EGD/colonoscopy on Monday. Continue with IV El iquis He is covered with Zosyn for his Corynebacterium and serratia species Glucose controlled Patient refusing rehab Long-term prognosis is poor. As patient has complicated multiple medical problems on the top of his none strict compliance medical regiment and treatment plan 08/13/2021 Patient awake with no respiratory distress today, he is saturating high 90s on 4 L oxygen which is his home dose. He is hemodynamically stable. Glucose is controlled. Lap still pending. Chest x-ray: Report is pending, I reviewed myself that looks similar infiltrates or slightly better with new left pleural effusion. Patient is going for hemodialysis today He is kept on IV Zosyn for now. Also he is on a clear liquid diet with anticipation for endoscopy by surgery team on this coming Monday for his anemia and possible GI bleed 08/14/2021 Patient awake and alert however is little bit more tachypneic today at 25 mL/h, more hypoxic requiring 6 L/m although his reason quietly in the room. Chest x-ray showing bilateral infiltrates and left pleural effusion with evidence of COPD, image reviewed by myself. His hemoglobin 7.0, his Eliquis is on hold in plan for EGD/colonoscopy tomorrow. No evidence of active bleeding. WBC is 18,000, creatinine 3.3 and Hemodialysis will be Monday in 2 days. I agree with change antibiotics to cefepime since serratia is resistant to Zosyn which is stopped yesterday. Continue with Protonix 40 mg IV and Levemir 15 units with glucose controlled 08/15/2021 Patient remains in the ICU and actually today he is doing worse, is more confused and tired and has presented difficulty, he has no ability to eat and even had difficulty taking his pills by the bedside nurse. Since yesterday his oxygen requirement went up to 6 L/m on today's [place] is slightly tachypneic but he has limited air entry, systemic steroids was held because of his bleeding and patient supposed to go for EGD/colonoscopy tomorrow but because of his declining clinical status we could not take the preparation and this procedure was helped by surgery team. Also there is concerned about aspiration therefore we will put the patient nothing by mouth for now and keep monitoring. Received 1 extra dose of IV Lasix 80 mg, we will going to give him in one time dose of Levaquin today on the top of his cefepime started yesterday. His blood pressure this morning is 93/50, with a rate is 19-25. He is afebrile. Hemoglobin dropped to 6.8 and slightly trending down which may goes with GI bleed. It was of blood from GI. We are going to give him an excellent dose of Protonix this morning and switch it to twice daily. chest x-ray showing bilateral pleural effusion, left more than right. Similar chest x-ray from yesterday. Patient currently remains full code I did discuss with his daughter chaya who is next of kin at [phone] and updated her about her father condition, she confirmed to me he wants him to be full code 08/16/2021 Patient is seen and evaluated in follow-up continues to be closely monitored in the ICU with multiple medical consultations following. Patient is extremely lethargic and minimally arousable per nursing staff. Hemoglobin was low today and awaiting to receive a unit of PRBCs. Patient would be unable to attempt bowel prep as patient failed swallow evaland unable to further assess for any bleeding at this time and will need to be scheduled in the outpatient setting once more stable. Per nursing staff there is been a consultation to hospice placed as well for informational as patient clinically continues to deteriorate. Patient had a swallow eval done per nursing staff and failed the swallow. Patient continues to be confused at this time. Patient on levophed and is also continued on IV cefepime. 08/17/2021 Patient is seen this morning in the ICU and prognosis remains poor and quite guarded. Patient is being followed by surgery, pulmonary, and nephrology. Patient is tentatively scheduled for EGD/colonoscopy with surgery for possible GI bleed although is extremely unstable and unable to tolerate any PO and would not be able to drink the prep and no evidence of active bleeding at this time and hemoglobin is stable today. Sodium is up to 150 and IV fluid being transitioned to D5 water and recommend repeat labs. Hospice informational meeting with family to occur today with [facility]. Review of systems: Unable to obtain as patient is lethargic and confused All medications have been reviewed Active Medications Albuterol/Ipratropium (Ipratropium-Albuterol 3 Ml Neb) 3 ml INHALATION RT-Q4H PRN PRN Reason: Shortness Of Breath Last Admin: 08/04/21 00:33 Dose: 3 ml Documented by: Albuterol/Ipratropium (Ipratropium-Albuterol 3 Ml Neb) 3 ml INHALATION RT-Q4H ASHISH Last Admin: 08/17/21 08:28 Dose: 3 ml Documented by: Allopurinol (Allopurinol 100 Mg Tab) 200 mg PO DAILY@1400 [facility] Last Admin: 08/16/21 14:25 Dose: Not Given Documented by: Artificial Tears (Artificial Tears-Hypromellose Drops 15 Ml Btl) 2 drops BOTH EYES TID PRN PRN Reason: Dry Eye(s) Ascorbic Acid (Ascorbic Acid 500 Mg Tab) 1,000 mg PO BID [facility] Last Admin: 08/16/21 21:37 Dose: Not Given Documented by: Atropine Sulfate (Atropine Ophth Soln 1% 5ml Btl) 2 drops SUBLINGUAL Q4HR PRN PRN Reason: Excess Secretions Last Admin: 08/16/21 20:10 Dose: 2 drops Documented by: Budesonide (Budesonide 1 Mg/2 Ml Nebu) 1 mg INHALATION RT-BID [facility] Last Admin: 08/17/21 08:28 Dose: 1 mg Documented by: Cholecalciferol (Cholecalciferol 25 Mcg (1000 Iu) Tablet) 25 mcg PO DAILY [facility] Last Admin: 08/16/21 08:09 Dose: Not Given Documented by: Darbepoetin Hubert (Darbepoetin Hubert 60 Mcg/0.3 Ml Syringe) 60 mcg SQ Q7D [facility] Last Admin: 08/15/21 22:09 Dose: 60 mcg Documented by: Formoterol Fumarate (Formoterol Fumarate 20 Mcg/2 Ml Nebu) 20 mcg INHALATION RT-BID [facility] Last Admin: 08/17/21 08:28 Dose: 20 mcg Documented by: Hydromorphone HCl (Hydromorphone 1 Mg/Ml 1 Ml Syringe) 1 mg IVP Q2HR PRN PRN Reason: Pain Last Admin: 08/17/21 04:42 Dose: 1 mg Documented by: Cefepime HCl 1 gm/ Sodium (Chloride) 50 mls @ 12.5 mls/hr IVPB Q12HR [facility]; Protocol Last Admin: 08/16/21 20:08 Dose: 12.5 mls/hr Documented by: Norepinephrine Bitartrate 4 mg (/ Sodium Chloride) 254 mls @ 17.621 mls/hr IV .[id number] [facility]; Protocol Last Titration: 08/17/21 02:06 Dose: 0.07 mcg/kg/min, 24.67 mls/hr Documented by: Insulin Aspart (Insulin Aspart (Novolog) 100 Unit/Ml Vial) 0 unit SQ ACHS [facility]; Protocol Last Admin: 08/16/21 22:49 Dose: Not Given Documented by: Insulin Detemir (Insulin Detemir (Levemir) 100 Unit/Ml Syr) 15 unit SQ DAILY@0700 [facility] Last Admin: 08/17/21 07:09 Dose: Not Given Documented by: Levothyroxine Sodium (Levothyroxine 25 Mcg Tab) 25 mcg PO DAILY@0630 [facility] Last Admin: 08/17/21 07:09 Dose: Not Given Documented by: Metoprolol Tartrate (Metoprolol Tartrate 25 Mg Tab) 25 mg PO BID [facility] Last Admin: 08/16/21 21:37 Dose: Not Given Documented by: Miscellaneous Information (Magnesium Replacement Protocol 1 Each Misc) 1 each MISCELLANE DAILY PRN; Protocol PRN Reason: Per Protocol Naloxone HCl (Naloxone 0.4 Mg/Ml 1 Ml Vial) 0.2 mg IV Q2M PRN PRN Reason: Opioid Reversal Pantoprazole Sodium (Pantoprazole 40 Mg/10 Ml Vial) 40 mg IV BID [facility] Last Admin: 08/16/21 20:08 Dose: 40 mg Documented by: Scopolamine (Scopolamine 1.5mg/72hr Patch) 1 patch TRANSDERM Q72H [facility] Last Admin: 08/15/21 16:49 Dose: 1 patch Documented by: Sevelamer Carbonate (Sevelamer 800 Mg Tab) 800 mg PO TID-W/MEALS [facility] Last Admin: 08/16/21 16:25 Dose: Not Given Documented by: Physical exam: GENERAL: The patient is lethargic, confused, quite tired, ill-appearing, extremely lethargic EENT: Pupils are round and equally reacting to light. EOMI. No scleral icterus. No conjunctival pallor. Normocephalic, atraumatic. No pharyngeal erythema. No thyromegaly. CARDIOVASCULAR: S1 and S2 present. No murmurs, rubs, or gallops. PULMONARY: basilar crackles and rhonchi ABDOMEN: Soft, nontender, nondistended, normoactive bowel sounds. No palpable organomegaly. Fecal management system and a Werner catheter MUSCULOSKELETAL: No joint swelling or deformity. EXTREMITIES: No cyanosis, clubbing, or pedal edema. left wrist malunion noted NEUROLOGICAL: muscle atrophy of bilateral lower extremities. SKIN: No rashes. Assessment: - Recurrent aspiration leading to respiratory distress and status post extubation. Sputum culture is growing Corynebacterium and Adama - acute diastolic congestive heart failure secondary to cardiorenal - Acute COPD exacerbation - hypernatremia, sodium is 150 today - Acute kidney injury on stage IV CKD, started on HD during this admission - Normochromic normocytic anemia with suspected GI bleed, recurrent - anasarca secondary to cardiorenal syndrome as mentioned above. Hemodialysis per nephrology - Anemia of chronic disease, with recent drop in hemoglobin. Rule out GI bleed, unable to perform endoscopies as failing swallow - Loose bowel movement, C. diff colitis ruled out - Hypomagnesemia, replaced per Protocol - Chronic respiratory failure secondary to COPD , 5 L of oxygen at home. There is evidence of acute exacerbation - Possible pneumonia, hospital-acquired with elevated procalcitonin 0.5 - Hypertension - Hyperlipidemia - Hypothyroidism - History of recent fall and fracture to the left wrist with malunion noted - Paroxsymal atrial fibrillation presently rate controlled patient does have sick sinus syndrome history patient has a pacemaker - Type 2 diabetes mellitus - DVT prophylaxis - GI prophylaxis - full code Plan: Patient currently requiring more supplemental oxygen support and maintained on 15L HF Multiple medical consultations following including pulmonary skidder loader, nephrology and will continue. High risk for aspiration pneumonia and currently NPO as he failed the swallow. Continue aspiration precautions Patient is maintained on hemodialysis Gen. surgery also following in regards to anemia workup and unable to swallow at this time and would not tolerate prep and will need to be evaluated if patient more stable. hemoglobin stable today with no active bleeding noted Recommend continue close ICU management PT/OT to evaluate the patient as patient is extremely weak Recommend repeat labs in the morning Recommend patient continue with IV antibiotics Continue monitoring accuchecks achs, patient is not eating and failed swallow and dietitician consulted Hospice informational consult with family today and need to discuss further with family about decision Patient does have a left wrist splint that he received 2 admissions ago and is currently at home Overall prognosis is extremely poor and guarded. Prognosis discussed with family at the bedside today in detail The impression and plan of care has been dictated by Rochelle Salinas, Nurse Practitioner as directed. Dr. Garo MD I have performed a history and examination and MDM of this patient, discussed the same with the dictator, and agree with the dictator's assessment and plan as written ,documented as a scribe. Based on total visit time, I have performed more than 50% of the visit. Objective - Vital Signs Vital signs: Vital Signs Temp 96.8 F L 08/17/21 04:00 Pulse 104 H 08/17/21 08:50 Resp 22 08/17/21 07:00 BP 111/56 08/17/21 07:00 Pulse Ox 99 08/17/21 07:00 Intake & Output 08/16/21 08/17/21 08/17/21 18:59 06:59 18:59 Intake Total 672.380 280.078 10 Output Total 1999 20 Balance -1327.620 260.078 10 Weight 92.4 kg 91.7 kg Intake: IV 170 160.0 10 0.9 Normal Saline @ 10mL/ 120 110 10 hr - KVO Cefepime 1 gm In Sodium 50 50.0 Chloride 0.9% 50 ml @ 12. 5 mls/hr IVPB Q12HR [facility] Rx#:[id number] Intake, IV Titration 142.380 120.078 Amount Norepinephrine 4 mg In 142.380 120.078 Sodium Chloride 0.9% 250 ml @ 0.05 MCG/KG/MIN 17. 621 mls/hr IV .[id number] [facility] Rx#:[id number] Blood Product 310 Rc As-1 Unit 310 [id number] Other 50 Rc As-1 Unit 50 [id number] Output: Urine 0 20 Hemodialysis 1999 Other: Voiding Method Indwelling Catheter Indwelling Catheter ABP, PAP, CO, CI - Last Documented Arterial Blood Pressure 103/50 - Labs CBC & Chem 7: 08/17/21 07:22 08/17/21 07:22 Labs: Abnormal Lab Results - Last 24 Hours (Table) 08/16/21 08/17/21 08/17/21 Range/Units 04:58 07:22 07:22 WBC 22.8 H (3.8-10.6) k/uL RBC 2.54 L (4.30-5.90) m/uL Hgb 7.4 L (13.0-17.5) gm/dL Hct 24.8 L (39.0-53.0) % MCHC 29.9 L (31.0-37.0) g/dL RDW 16.7 H (11.5-15.5) % Sodium 150 H (137-145) mmol/L Chloride 118 H (98-107) mmol/L Carbon Dioxide 20 L (22-30) mmol/L BUN 23 H (9-20) mg/dL Creatinine 4.33 H (0.66-1.25) mg/dL Crossmatch See Detail
[2021-08-18] MEDS: NOREPINEPHRINE 4 MG in SODIUM CHLORIDE 0.9% 250 ML IV SCH ×2 (01:59→17:10)
[2021-08-18] MEDS: HYDROmorphone 1 MG/ML 1 ML SYRINGE IVP PRN ×2 (03:17→12:35)
[2021-08-18] MEDS: IPRATROPIUM-ALBUTEROL 3 ML NEB INHALATION SCH ×4 (03:19→15:40)
[2021-08-18] MEDS: LEVOTHYROXINE 25 MCG TAB PO SCH (06:06)
[2021-08-18] MEDS: SEVELAMER 800 MG TAB PO SCH ×3 (06:06→17:11)
[2021-08-18] MEDS: INSULIN ASPART (NovoLOG) 100 UNIT/ML VIAL SQ SCH ×3 (06:17→17:11)
[2021-08-18] MEDS: INSULIN DETEMIR (LEVEMIR) 100 UNIT/ML SYR SQ SCH (06:17)
[2021-08-18 06:18] LABS: Glucose,Whole Blood 157 mg/dL (75-99)
[2021-08-18 06:51] LABS: Calcium 10.9 mg/dL (8.4-10.2); Potassium 4.6 mmol/L (3.5-5.1)
[2021-08-18 06:58] LABS: Anisocytosis Slight; HCT 25.5 % (39.0-53.0); HGB 7.2 gm/dL (13.0-17.5); Hypochromasia Marked; MCH 28.7 pg (25.0-35.0); MCHC 28.1 g/dL (31.0-37.0); MCV 102.2 fL (80.0-100.0); Macrocytosis Moderate; Mean Platelet Volume 8.3; Platelet Count 340 k/uL (150-450); Poikilocytosis Slight; RDW 17.1 % (11.5-15.5); WBC 21.2 k/uL (3.8-10.6)
[2021-08-18] MEDS: FORMOTEROL FUMARATE 20 MCG/2 ML NEBU INHALATION SCH (08:48)
[2021-08-18] MEDS: BUDESONIDE 1 MG/2 ML NEBU INHALATION SCH (08:48)
[2021-08-18] MEDS: SODIUM BICARBONATE TAB 650 MG TAB PO SCH (09:04)
[2021-08-18] MEDS: METOPROLOL TARTRATE 25 MG TAB PO SCH (09:04)
[2021-08-18] MEDS: ASCORBIC ACID 500 MG TAB PO SCH (09:04)
[2021-08-18] MEDS: CEFEPIME 1 GM in SODIUM CHLORIDE 0.9% 50 ML IVPB SCH (09:08)
[2021-08-18] MEDS: PANTOPRAZOLE 40 MG/10 ML VIAL IV SCH (09:08)
[2021-08-18] MEDS ORDERED: DEXTROSE 5% IN WATER 1,000 ML IV SCH (09:15)
--- NOTE | 2021-08-18 09:17 | P.PN ---
Subjective Patient is seen in follow-up for acute kidney injury on chronic kidney disease, hemodialysis dependent. Currently on 15 L high flow cannula. Blood pressure stable. On Levophed. Remains confused. Quite lethargic. No active bleeding per the nurse. Hemoglobin 7.2 today. Family considering hospice. Vital signs are stable. On low-dose Levophed. General: Awake. No acute distress. HEENT: Head exam is unremarkable. LUNGS: Breath sounds decreased. HEART: Rate and Rhythm are regular. ABDOMEN: Soft, no distention. EXTREMITITES: No edema. Objective - Vital Signs Vital signs: Vital Signs Temp 98.2 F 08/18/21 04:00 Pulse 80 08/18/21 09:06 Resp 26 H 08/18/21 07:00 BP 99/47 08/18/21 07:00 Pulse Ox 96 08/18/21 07:00 Intake & Output 08/17/21 08/18/21 08/18/21 18:59 06:59 18:59 Intake Total 725.542 834.571 77.489 Output Total 5 0 Balance 720.542 834.571 77.489 Weight 92.6 kg Intake: IV 30 50 0.9 Normal Saline @ 10mL/ 30 hr - KVO Cefepime 1 gm In Sodium 50 Chloride 0.9% 50 ml @ 12. 5 mls/hr IVPB Q12HR [facility] Rx#:[id number] Intake, IV Titration 695.542 784.571 77.489 Amount Dextrose 5% in Water 1, 450 450 50 000 ml @ 50 mls/hr IV . Q20H [facility] Rx#:[id number] Norepinephrine 4 mg In 245.542 334.571 27.489 Sodium Chloride 0.9% 250 ml @ 0.05 MCG/KG/MIN 17. 621 mls/hr IV .[id number] [facility] Rx#:[id number] Oral 0 Output: Urine 5 0 ABP, PAP, CO, CI - Last Documented Arterial Blood Pressure 103/50 - Labs CBC & Chem 7: 08/18/21 05:36 08/18/21 05:36 Labs: Abnormal Lab Results - Last 24 Hours (Table) 08/17/21 08/17/21 08/17/21 Range/Units 11:19 16:12 21:12 WBC (3.8-10.6) k/uL RBC (4.30-5.90) m/uL Hgb (13.0-17.5) gm/dL Hct (39.0-53.0) % MCV (80.0-100.0) fL MCHC (31.0-37.0) g/dL RDW (11.5-15.5) % Sodium (137-145) mmol/L Chloride (98-107) mmol/L Carbon Dioxide (22-30) mmol/L BUN (9-20) mg/dL Creatinine (0.66-1.25) mg/dL Glucose (74-99) mg/dL POC Glucose (mg/dL) 100 H 105 H 126 H (75-99) mg/dL Calcium (8.4-10.2) mg/dL 08/18/21 08/18/21 08/18/21 Range/Units 05:36 05:36 06:16 WBC 21.2 H (3.8-10.6) k/uL RBC 2.50 L (4.30-5.90) m/uL Hgb 7.2 L (13.0-17.5) gm/dL Hct 25.5 L (39.0-53.0) % MCV 102.2 H (80.0-100.0) fL MCHC 28.1 L (31.0-37.0) g/dL RDW 17.1 H (11.5-15.5) % Sodium 149 H (137-145) mmol/L Chloride 119 H (98-107) mmol/L Carbon Dioxide 17 L (22-30) mmol/L BUN 30 H (9-20) mg/dL Creatinine 5.68 H (0.66-1.25) mg/dL Glucose 147 H (74-99) mg/dL POC Glucose (mg/dL) 157 H (75-99) mg/dL Calcium 10.9 H (8.4-10.2) mg/dL Assessment and Plan Plan: Assessment: 1. Acute kidney injury secondary to ATN, currently hemodialysis dependent. Has a permacath. Maintained on Monday schedule. Oliguric. 2. 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 Serologies mostly negative except for mildly low C3 level. 3. Volume overload. Improved with ultrafiltration. 4. Acute on chronic diastolic CHF. 5. Acute blood loss anemia. Received blood transfusions this admission. On Aranesp. EGD and colonoscopy pending 6. A. fib. 7. Chronic kidney disease mineral bone disease. Phosphorous 7.1 dated 08/16/2021. On Renvela. 8. Metabolic acidosis secondary to acute kidney injury. On oral bicarb. 9. Hypernatremia from lack of oral water intake. 10. Hypercalcemia. Urine immunofixation showed no Bence-Fonseca proteins. Plan: Hemodialysis today if not hospice. Increase D5W to 75 mL an hour. Monitor for renal recovery outpatient. Stopped vitamin D. Will also order further workup and treatment for hypercalcemia if doesn't go hos pice. Per nurse, family has decided to proceed with hospice later this afternoon. Prognosis guarded.
[2021-08-18 09:55] VITALS: TEMP 98.9
--- NOTE | 2021-08-18 15:12 | P.PN ---
Subjective Progress Note Date: 08/18/21 CHIEF COMPLAINT: GI bleed HISTORY OF PRESENT ILLNESS: Patient remains in the ICU. He has multiple medical problems. Patient has failed his swallowing eval. Currently nothing by mouth due to aspiration precautions. He is requiring 15 L of oxygen. Patient failed his bedside he is hypotensive. Afebrile. WBC 21.2 hemoglobin 7.2 sodium 149 creatinine 5.68. He has been hemodialysis dependent. Family is planning to make patient hospice care this afternoon. Patient's overall prognosis is poor and guarded. PHYSICAL EXAM: VITAL SIGNS: Reviewed. GENERAL: Well-developed in no acute distress. HEENT: No sclera icterus. Extraocular movements grossly intact. Moist buccal mucosa. Head is atraumatic, normocephalic. ABDOMEN: Soft. Nondistended. Nontender. NEUROLOGIC: Confused ASSESSMENT: 1. Acute GI bleed 2. Acute blood loss anemia PLAN: -Awaiting family's decision regarding hospice -Agree with hospice and comfort care measures Physician Infrastructure Engineer note has been reviewed by physician. Signing provider agrees with the documented findings, assessment, and plan of care. Objective - Vital Signs Vital signs: Vital Signs Temp 98.9 F 08/18/21 08:00 Pulse 80 08/18/21 14:00 Resp 26 H 08/18/21 14:00 BP 88/39 08/18/21 14:00 Pulse Ox 96 08/18/21 14:00 Intake & Output 08/17/21 08/18/21 08/18/21 18:59 06:59 18:59 Intake Total 725.542 834.571 502.489 Output Total 5 0 0 Balance 720.542 834.571 502.489 Weight 92.6 kg Intake: IV 30 50 0.9 Normal Saline @ 10mL/ 30 hr - KVO Cefepime 1 gm In Sodium 50 Chloride 0.9% 50 ml @ 12. 5 mls/hr IVPB Q12HR [facility] Rx#:[id number] Intake, IV Titration 695.542 784.571 502.489 Amount Dextrose 5% in Water 1, 450 450 475 000 ml @ 50 mls/hr IV . Q20H [facility] Rx#:[id number] Norepinephrine 4 mg In 245.542 334.571 27.489 Sodium Chloride 0.9% 250 ml @ 0.05 MCG/KG/MIN 17. 621 mls/hr IV .[id number] [facility] Rx#:[id number] Oral 0 Output: Urine 5 0 0 ABP, PAP, CO, CI - Last Documented Arterial Blood Pressure 103/50 - Labs CBC & Chem 7: 08/18/21 05:36 08/18/21 05:36 Labs: Abnormal Lab Results - Last 24 Hours (Table) 08/17/21 08/17/21 08/18/21 Range/Units 16:12 21:12 05:36 WBC 21.2 H (3.8-10.6) k/uL RBC 2.50 L (4.30-5.90) m/uL Hgb 7.2 L (13.0-17.5) gm/dL Hct 25.5 L (39.0-53.0) % MCV 102.2 H (80.0-100.0) fL MCHC 28.1 L (31.0-37.0) g/dL RDW 17.1 H (11.5-15.5) % Sodium (137-145) mmol/L Chloride (98-107) mmol/L Carbon Dioxide (22-30) mmol/L BUN (9-20) mg/dL Creatinine (0.66-1.25) mg/dL Glucose (74-99) mg/dL POC Glucose (mg/dL) 105 H 126 H (75-99) mg/dL Calcium (8.4-10.2) mg/dL 08/18/21 08/18/21 Range/Units 05:36 06:16 WBC (3.8-10.6) k/uL RBC (4.30-5.90) m/uL Hgb (13.0-17.5) gm/dL Hct (39.0-53.0) % MCV (80.0-100.0) fL MCHC (31.0-37.0) g/dL RDW (11.5-15.5) % Sodium 149 H (137-145) mmol/L Chloride 119 H (98-107) mmol/L Carbon Dioxide 17 L (22-30) mmol/L BUN 30 H (9-20) mg/dL Creatinine 5.68 H (0.66-1.25) mg/dL Glucose 147 H (74-99) mg/dL POC Glucose (mg/dL) 157 H (75-99) mg/dL Calcium 10.9 H (8.4-10.2) mg/dL
[2021-08-18] MEDS: allopurinoL 100 MG TAB PO SCH (16:22)
[2021-08-18] MEDS: SCOPOLAMINE 1 MG/72 HR PATCH TRANSDERM SCH (17:09)
[2021-08-18 20:12] VITALS: BP 82/34; RESP 37
[2021-08-18 20:16] VITALS: PULSE 105
--- NOTE | 2021-08-19 09:59 | P.PN ---
Subjective Progress Note Date: 08/18/21 Patient is a 65-year-old male with multiple medical problems multiple comorbidities was recently discharged from the hospital after he was treated for volume or note from chronic gastritis function and the cardiorenal syndrome. Patient was discharged to rehab facility 2 days into rehab related patient patient went home and started having shortness of breath volume overload diffuse anasarca and pedal edema. Patient is found to be in significant volume or lower chest x-ray showed bilateral pleural effusion although this appears to have improved compared to last admission when he had thoracentesis. Patient has significant lab abnormalities including creatinine going up to around 10 potassium 6.2 very low magnesium of 0.9 nephrology was consulted. As per nephrology patient will lead hemodialysis, consult to vascular surgery was placed for hemodialysis catheter placement and patient will be subsequently started on hemodialysis. Patient does have advanced COPD uses about 5 L of oxygen. 07/28/2021 Patient is seen and evaluated and follow-up has received hemodialysis catheter and is receiving hemodialysis today. Kidney functions improving and patient reports to producing more urine. Current creatinine is 7.6 today potassium is 5.5 and sodium is 139. Blood sugars have been more manageable and will continue current regimen. Patient continues on 5 L via nasal cannula which is chronic for him. Nephrology following closely and will continue with dialysis daily at this time. Patient is also maintained on IV Lasix and will continue. Patient denies chest pain, shortness of breath, or palpitations. Patient is afebrile. No nausea or vomiting noted and patient is tolerating diet. subjective: resume the care of the pt today 07/29/2021 This is a pleasant 65 years old male with stage IV chronic kidney disease presents with fatigue and worsening kidney function requiring hemodialysis which is a started during this admission after a catheter placed in the right groin. He is hemodynamically stable, he is on 5 L per minute of oxygen but saturating 98-99%, we will try to titrate his oxygen down. No much dyspnea or cough and while he is lying flat in bed but he feels very weak all over. His been having recurrent nausea vomiting, mainly worked first of this morning but he is fully awake with no headache. No abdominal pain. He is hemodynamically stable, hemoglobin 7.4 with evidence of chronic anemia, also he is on ferrous sulfate once daily at home. This currently on home dose of liquids 2.5 and IV Lasix 60 mg twice daily. Ultrasound of the abdomen showing no hydronephrosis or nephrolithiasis. And chest x-ray showed small right pleural effusion with atelectasis. Also patient has chronic left leg wound secondary to a fall about 3 months ago. Patient refused to take the dressing off. We consulted once care. Patient is on Zofran already, we added Phenergan. We ordered a KUB. Also ask for PT OT evaluation. WOUND TEAM CONSULT 07/30/2021 Patient awake alert, no much tachypnea but he stayed in bed most of the time, he still at baseline of 4 L/m of oxygen. However patient reports coughing a lot and making a lot of phlegm, he said he has been diagnosed with pneumonia 2 weeks ago. Actually chest x-ray from yesterday showing bilateral infiltrate, I reviewed the chest x-ray by myself and it looks worse compared to admission despite starting him on a new hemodialysis and receiving Lasix for his CHF. Also we checked his pro-calcitonin and it is elevated at 0.5 for which is consistent with infection with this constellation of CHF, chest x-ray findings a nd elevated pro-calcitonin. Most likely and high suspicion for hospital acquired pneumonia and patient is a started on Zosyn last night. We going to repeat chest x-ray tomorrow morning. Bladder scan show minimal urine, Flomax was discontinued. Wound care R following the patient for his left foot wound. 07/31/2021 Patient seen in bed most of the time, physical therapy recommended rehab, I talk ed to him today about this recommendation and he is refusing now. He still on 4 L oxygen nasal cannula which looks like he is this is his baseline however he has coarse crepitation looks like it comes from secretion with decreased air entry on both sides, patient confirms to me he has history of COPD. However I would recommend he follow up with a block feeder as an outpatient. Repeat chest x-ray today showing no worsening infiltrate however it shows Similar multifocal airspace opacities. Correlate for congestive heart failure and/or diffuse airspace disease in the meantime we will keep him on Zosyn and check a pro-calcitonin tomorrow, if improvement we may consider oral antibiotic. However started on Solu-Medrol 60 mg 3 times a day today. He is kept on IV Lasix and hemodialysis I discussed the case with nephrology team and they recommended the permacath prior to discharge, discussed with bed side nurse to inform surgical vascular team. Workup showing anemia of chronic disease and he was started on arenasept by hand sizer. 08/01/2021 Patient clinically is doing well generally, he is breathing quietly, he is tolerating diet well, no bowel movement today Nephrology team on the case and plan for him to get the permacath by vascular surgery team hopefully tomorrow. Also his evidence of COPD exacerbation which is improving therefore Solu-Medrol our to 40 mg twice a day. Pro-calcitonin still elevated 0.68, currently on Zosyn, sputum cultures pending. However patient only having cough and phlegm which is pending as above. Saturation is 4-5 L/m which is his baseline. Rehab is recommended but patient was reluctant so far. 08/02/2021 Patient is lying in bed most of the time, his breathing is at baseline and is improving with less crepitation but he is coughing a lot . His oxygen requirement at baseline on 4 L/m which is his home dose. his hemoglobin dropped today to 5.7, his workup showing anemia of chronic disease despite being an IV and oral iron, workup showing anemia of chronic disease but cannot rule out GI bleed especially he's on liquids which is on hold today before going for procedure. Therefore we going to consult GI service in any way. Occult blood in his stool test is requested. Patient states he has 3- 4 loose bowel movements, we will check C. diff as well. No abdominal pain or vomiting. Patient is going for permacath placement today and hemodialysis tomorrow, he got hemodialysis this morning. Patient adamantly refusing to go to rehab despite recommendation for medical and nephrology team on several occasions. Patient and make his own decisions. 08/03/2021 Patient now wake and breathing comfortably at baseline, he is less coughing compared to yesterday after started on Robitussin D but today he wants to, more so I can bring stuff up out of his chest, therefore we change his Robitussin into when necessary dosing and he was informed. No chest pain or other symptoms. However there was some concerns of pulmonary congestion there for his colonoscopy/EGD for tomorrow is rescheduled until . He is placed on liquid diet therefore we lowered his Levemir form 25 units which is home dose down to 10 units tonight. His chest x-ray looks the same Reticulocyte count is 1.5 but he got one unit of transfusion. Currently hemo globin is holding at 8.1, glucose control, magnesium normal at 2.2, sodium at 1:30 and he is saturating at 4-5 L/m which is home dose. Diarrhea stopped, occult blood in stool is negative and C. diff negative. 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 Repeat CT of the chest today showed no evidence of pulmonary embolism and there is extensive bilateral infiltrates concerning for aspiration. Currently he is saturating 98% on FiO2 of 50% and respiratory rate of 26. Labs reviewed and showing WBC of 14.6, creatinine down to 1.6, hemoglobin 10, potassium after placement 3.4. Patient labs reviewed remains on Zosyn, Pro-calcitonin is improving down to 0.3 prior to this episode of aspiration. Patient remains afebrile for now. His Eliquis remains on hold in view of his history of A. fib due for suspected GI bleed. Patient remains on Zosyn, Protonix and insulin sliding scale. Also patient placed on Lasix 80 mg daily and receives an extra dose this morning. While insulin 10 units is held 08/05/2021 Patient remains in the ICU sedated and intubated. He is off Levophed today. Metoprolol was held yesterday and his blood pressure improved, and this morning 87/54 and his rate was sinus rhythm at 93, no evidence of A. fib and RVR given his history of similar problem. Hemoglobin 7.9, which is known he is anemic, his Eliquis is still on hold for possible GI bleed with planned to undergo EGD/colonoscopy at certain point per GI team her on the case. Creatinine went up to 0.8. He is undergoing hemodialysis. Chest x-ray showed some improvement by a radiologist Remains on IV Zosyn for his recurrent aspiration pneumonia. Also Lasix was held. His prognosis remains guarded 08/07/2021 Patient is seen and evaluated and follow-up continues to be in the ICU on mechanical vent. Patient currently receiving hemodialysis and is currently off Levophed although being used as needed for blood pressures that are on the lower side. Patient continues on mechanical ventilation with an FiO2 of 40% and PEEP is 5 with multiple medical consultations are following. Hemoglobin is stable at 7.7 with no active bleeding noted. Patient also continues on IV Zosyn. Sputum cultures thus far are negative. Pulmonary following and highly suspicious for aspiration pneumonia. Recommend continue with breathing inhalational treatments and close monitoring. Chest x-ray today shows left upper lung edema and/or infiltrate and bibasilar atelectasis and/or infiltrates on the background with chronic changes and mild cardiomegaly redemonstrated with no significant change from one day previously. 08/08/2021 Patient continues to be monitored closely in the ICU on mechanical ventilation and currently intubated. FiO2 is 40% with PEEP of 5 . Sedation holidays being conducted on a daily basis to wean and possible extubate. Patient not quite ready for extubation at this time. FiO2 will be decreased to 30%. Chest x-ray today shows bilateral upper lung edema and/or infiltrates and bibasilar atelect asis and/or infiltrate some background chronic changes with mild cardiomegaly redemonstrated with no significant change from yesterday. Hemoglobin is stable at 7.4, WBC 13.2, kidney functions improving and creatinine is currently 2.33 and is continued on dialysis and expected to receive a session of hemodialysis in the morning. Repeat a.m. labs ordered and will continue to monitor closely. 08/09/2021 This 65-year-old with chronic respiratory failure uses her on 5 L of oxygen at home as her multiple medical problems including congestive heart failure diastolic dysfunction cardiac renal syndrome on hemodialysis. Patient has multiple other medical problems his prognosis is extremely poor patient is extubated today patient is intubated and multifactorial respiratory failure including COPD exacerbation pulmonary edema and pneumonia in the left lung. Patient is quite a bit tired patient has a fecal management system as well as a Werner catheter patient is not urinating much fecal management system did show blood because of which I'm consulting general surgery, patient's hemoglobin did drop will transfuse him 1 unit of PRBC patient last hemodialysis was yesterday patient probably will need to undergo hemodialysis today patient is quite tired and weak unable to even cough. She is presently on Zosyn and vancomycin 08/10/2021 Patient is seen and evaluated in follow-up this morning continues to be in the ICU closely monitored. Patient is status post extubation yesterday and curre ntly maintained on 4 L. Patient receiving hemodialysis today with nephrology following closely. Pulmonary retail stocker also following along with general surgery and patient underwent bowel capsule study to assess for bleeding which was negative on the one-hour marker. Patient has been transitioned off of steroids and blood sugars improving and will decrease the dose of long-acting and continue sliding scale and monitor Accu-Cheks before meals and at bedtime closely. Sputum cultures preliminary positive and awaiting finalized cultures and will continue with IV antibiotics at this time. WBC is elevated at 29.0 and hemoglobin is stable at 8.9. Patient remains somewhat hypotensive during di alysis and is currently off pressors. 08/12/2021 Patient is still in the ICU monitored closely, he is status post extubation, is currently on baseline of 4 L/m, with minimal respiratory symptoms, actually patient is asked to go home, explained to him is not medically ready and he agrees to stay. He is hemodynamically stable, blood pressure is borderline 92/50, asymptomatic. Hemoglobin 7.8 compared to 7.4 upon admission, WBC is 21.8 and creatinine 2.6 while he is on hemodialysis. He is status post permacath in the right upper chest. Also has episodes of GI bleed, currently hemoglobin is stable. Felix on hold, surgical team with planned for EGD/colonoscopy on Monday. Continue with IV El iquis He is covered with Zosyn for his Corynebacterium and serratia species Glucose controlled Patient refusing rehab Long-term prognosis is poor. As patient has complicated multiple medical problems on the top of his none strict compliance medical regiment and treatment plan 08/13/2021 Patient awake with no respiratory distress today, he is saturating high 90s on 4 L oxygen which is his home dose. He is hemodynamically stable. Glucose is controlled. Lap still pending. Chest x-ray: Report is pending, I reviewed myself that looks similar infiltrates or slightly better with new left pleural effusion. Patient is going for hemodialysis today He is kept on IV Zosyn for now. Also he is on a clear liquid diet with anticipation for endoscopy by surgery team on this coming Monday for his anemia and possible GI bleed 08/14/2021 Patient awake and alert however is little bit more tachypneic today at 25 mL/h, more hypoxic requiring 6 L/m although his reason quietly in the room. Chest x-ray showing bilateral infiltrates and left pleural effusion with evidence of COPD, image reviewed by myself. His hemoglobin 7.0, his Eliquis is on hold in plan for EGD/colonoscopy tomorrow. No evidence of active bleeding. WBC is 18,000, creatinine 3.3 and Hemodialysis will be Monday in 2 days. I agree with change antibiotics to cefepime since serratia is resistant to Zosyn which is stopped yesterday. Continue with Protonix 40 mg IV and Levemir 15 units with glucose controlled 08/15/2021 Patient remains in the ICU and actually today he is doing worse, is more confused and tired and has presented difficulty, he has no ability to eat and even had difficulty taking his pills by the bedside nurse. Since yesterday his oxygen requirement went up to 6 L/m on today's [place] is slightly tachypneic but he has limited air entry, systemic steroids was held because of his bleeding and patient supposed to go for EGD/colonoscopy tomorrow but because of his declining clinical status we could not take the preparation and this procedure was helped by surgery team. Also there is concerned about aspiration therefore we will put the patient nothing by mouth for now and keep monitoring. Received 1 extra dose of IV Lasix 80 mg, we will going to give him in one time dose of Levaquin today on the top of his cefepime started yesterday. His blood pressure this morning is 93/50, with a rate is 19-25. He is afebrile. Hemoglobin dropped to 6.8 and slightly trending down which may goes with GI bleed. It was of blood from GI. We are going to give him an excellent dose of Protonix this morning and switch it to twice daily. chest x-ray showing bilateral pleural effusion, left more than right. Similar chest x-ray from yesterday. Patient currently remains full code I did discuss with his daughter chaya who is next of kin at [phone] and updated her about her father condition, she confirmed to me he wants him to be full code 08/16/2021 Patient is seen and evaluated in follow-up continues to be closely monitored in the ICU with multiple medical consultations following. Patient is extremely lethargic and minimally arousable per nursing staff. Hemoglobin was low today and awaiting to receive a unit of PRBCs. Patient would be unable to attempt bowel prep as patient failed swallow evaland unable to further assess for any bleeding at this time and will need to be scheduled in the outpatient setting once more stable. Per nursing staff there is been a consultation to hospice placed as well for informational as patient clinically continues to deteriorate. Patient had a swallow eval done per nursing staff and failed the swallow. Patient continues to be confused at this time. Patient on levophed and is also continued on IV cefepime. 08/17/2021 Patient is seen this morning in the ICU and prognosis remains poor and quite guarded. Patient is being followed by surgery, pulmonary, and nephrology. Patient is tentatively scheduled for EGD/colonoscopy with surgery for possible GI bleed although is extremely unstable and unable to tolerate any PO and would not be able to drink the prep and no evidence of active bleeding at this time and hemoglobin is stable today. Sodium is up to 150 and IV fluid being transitioned to D5 water and recommend repeat labs. Hospice informational meeting with family to occur today with [facility]. 08/18/2021 Patient remains in the ICU and overall prognosis is extremely poor and family has met with [facility] and agreeable to hospice to start this afternoon. Will continue to monitor closely and initiate comfort measures. Patient is maintained on 15 L high flow and minimally responsive and extremely lethargic. Patient is also confused. Review of systems: Unable to obtain as patient is lethargic and confused All medications have been reviewed Physical exam: GENERAL: The patient is lethargic, confused, quite tired, ill-appearing, extremely lethargic EENT: Pupils are round and equally reacting to light. EOMI. No scleral icterus. No conjunctival pallor. Normocephalic, atraumatic. No pharyngeal erythema. No thyromegaly. CARDIOVASCULAR: S1 and S2 present. No murmurs, rubs, or gallops. PULMONARY: basilar crackles and rhonchi ABDOMEN: Soft, nontender, nondistended, normoactive bowel sounds. No palpable organomegaly. Fecal management system and a Werner catheter MUSCULOSKELETAL: No joint swelling or deformity. EXTREMITIES: No cyanosis, clubbing, or pedal edema. left wrist malunion noted NEUROLOGICAL: muscle atrophy of bilateral lower extremities. SKIN: No rashes. Assessment: - Recurrent aspiration leading to respiratory distress and status post extubation. Sputum culture is growing Corynebacterium and Ad[place] - acute diastolic congestive heart failure secondary to cardiorenal - Acute COPD exacerbation - hypernatremia, sodium is 150 today - Acute kidney injury on stage IV CKD, started on HD during this admission - Normochromic normocytic anemia with suspected GI bleed, recurrent - anasarca secondary to cardiorenal syndrome as mentioned above. Hemodialysis per nephrology - Anemia of chronic disease, with recent drop in hemoglobin. Rule out GI bleed, unable to perform endoscopies as failing swallow - Loose bowel movement, C. diff colitis ruled out - Hypomagnesemia, replaced per Protocol - Chronic respiratory failure secondary to COPD , 5 L of oxygen at home. There is evidence of acute exacerbation - Possible pneumonia, hospital-acquired with elevated procalcitonin 0.5 - Hypertension - Hyperlipidemia - Hypothyroidism - History of recent fall and fracture to the left wrist with malunion noted - Paroxsymal atrial fibrillation presently rate controlled patient does have sick sinus syndrome history patient has a pacemaker - Type 2 diabetes mellitus - DVT prophylaxis - GI prophylaxis - no code Plan: Patient currently requiring more supplemental oxygen support and maintained on 15L HF Multiple medical consultations following including pulmonary retail stocker, nephrology and will continue. Family has met with hospice and agreeable to start hospice this afternoon. Will initiate comfort measures and continue to monitor closely. Overall prognosis is extremely poor and guarded. Prognosis discussed with family at the bedside today in detail The impression and plan of care has been dictated by Rochelle Salinas, Nurse Practitioner as directed. Dr. Garo MD I have performed a history and examination and MDM of this patient, discussed the same with the dictator, and agree with the dictator's assessment and plan as written ,documented as a scribe. Based on total visit time, I have performed more than 50% of the visit. Objective - Vital Signs Vital signs: Vital Signs Temp 98.2 F 08/18/21 04:00 Pulse 80 08/18/21 08:48 Resp 26 H 08/18/21 07:00 BP 99/47 08/18/21 07:00 Pulse Ox 96 08/18/21 07:00 Intake & Output 08/17/21 08/18/21 08/18/21 18:59 06:59 18:59 Intake Total 725.542 834.571 77.489 Output Total 5 0 Balance 720.542 834.571 77.489 Weight 92.6 kg Intake: IV 30 50 0.9 Normal Saline @ 10mL/ 30 hr - KVO Cefepime 1 gm In Sodium 50 Chloride 0.9% 50 ml @ 12. 5 mls/hr IVPB Q12HR [facility] Rx#:[id number] Intake, IV Titration 695.542 784.571 77.489 Amount Dextrose 5% in Water 1, 450 450 50 000 ml @ 50 mls/hr IV . Q20H ONE Rx#:[id number] Norepinephrine 4 mg In 245.542 334.571 27.489 Sodium Chloride 0.9% 250 ml @ 0.05 MCG/KG/MIN 17. 621 mls/hr IV .[id number] [facility] Rx#:[id number] Oral 0 Output: Urine 5 0 ABP, PAP, CO, CI - Last Documented Arterial Blood Pressure 103/50 - Labs CBC & Chem 7: 08/18/21 05:36 08/18/21 05:36 Labs: Abnormal Lab Results - Last 24 Hours (Table) 08/17/21 08/17/21 08/17/21 Range/Units 11:19 16:12 21:12 WBC (3.8-10.6) k/uL RBC (4.30-5.90) m/uL Hgb (13.0-17.5) gm/dL Hct (39.0-53.0) % MCV (80.0-100.0) fL MCHC (31.0-37.0) g/dL RDW (11.5-15.5) % Sodium (137-145) mmol/L Chloride (98-107) mmol/L Carbon Dioxide (22-30) mmol/L BUN (9-20) mg/dL Creatinine (0.66-1.25) mg/dL Glucose (74-99) mg/dL POC Glucose (mg/dL) 100 H 105 H 126 H (75-99) mg/dL Calcium (8.4-10.2) mg/dL 08/18/21 08/18/21 08/18/21 Range/Units 05:36 05:36 06:16 WBC 21.2 H (3.8-10.6) k/uL RBC 2.50 L (4.30-5.90) m/uL Hgb 7.2 L (13.0-17.5) gm/dL Hct 25.5 L (39.0-53.0) % MCV 102.2 H (80.0-100.0) fL MCHC 28.1 L (31.0-37.0) g/dL RDW 17.1 H (11.5-15.5) % Sodium 149 H (137-145) mmol/L Chloride 119 H (98-107) mmol/L Carbon Dioxide 17 L (22-30) mmol/L BUN 30 H (9-20) mg/dL Creatinine 5.68 H (0.66-1.25) mg/dL Glucose 147 H (74-99) mg/dL POC Glucose (mg/dL) 157 H (75-99) mg/dL Calcium 10.9 H (8.4-10.2) mg/dL
--- NOTE | 2021-08-19 10:01 | P.DS ---
Providers Date of admission: 07/26/21 19:15 Expected date of discharge: 08/18/21 Attending physician: Vel Wilburn Consults: 07/26/21 19:15 Consult Physician Routine Consulting Provider: Minnie Garcia Consult Reason/Comments: kidney failure Do you want consulting provider notified?: Yes 07/27/21 10:17 Consult Physician Stat Consulting Provider: Wilmer Arana Consult Reason/Comments: dialysis cath Do you want consulting provider notified?: Yes 08/01/21 09:13 Consult Physician Routine Consulting Provider: Wilmer Arana Consult Reason/Comments: P cath Do you want consulting provider notified?: Yes 08/02/21 11:08 Consult Physician Urgent Consulting Provider: Jami Coffman Consult Reason/Comments: anemia on eliquis Do you want consulting provider notified?: Yes 08/04/21 06:04 Consult Physician Routine Consulting Provider: Denver Farmer Consult Reason/Comments: respiratory distress Do you want consulting provider notified?: Yes, Notify in am 08/10/21 12:23 Consult Physician Urgent Consulting Provider: Damon Moe Consult Reason/Comments: GI Bleed Do you want consulting provider notified?: Yes Primary care physician: [facility] Hospital Course: Final diagnosis - Recurrent aspiration leading to respiratory distress and status post extubation. Sputum culture is growing Corynebacterium and Adama - acute diastolic congestive heart failure secondary to cardiorenal - Acute COPD exacerbation - hypernatremia, sodium is 150 today - Acute kidney injury on stage IV CKD, started on HD during this admission - Normochromic normocytic anemia with suspected GI bleed, recurrent - anasarca secondary to cardiorenal syndrome as mentioned above. Hemodialysis per nephrology - Anemia of chronic disease, with recent drop in hemoglobin. Rule out GI bleed, unable to perform endoscopies as failing swallow - Loose bowel movement, C. diff colitis ruled out - Hypomagnesemia, replaced per Protocol - Chronic respiratory failure secondary to COPD , 5 L of oxygen at home. There is evidence of acute exacerbation - Possible pneumonia, hospital-acquired with elevated procalcitonin 0.5 - Hypertension - Hyperlipidemia - Hypothyroidism - History of recent fall and fracture to the left wrist with malunion noted - Paroxsymal atrial fibrillation presently rate controlled patient does have sick sinus syndrome history patient has a pacemaker - Type 2 diabetes mellitus - DVT prophylaxis - GI prophylaxis - no code Discharge disposition Patient is being transferred to [facility] and meets GIP criteria with family at the bedside and are agreeable to hospice comfort measures only. We'll continue to monitor closely. Overall prognosis remains extremely poor and guarded. The impression and plan of care has been dictated by Rochelle Salinas, Nurse Practitioner as directed. Dr. Garo MD I have performed a history and examination and MDM of this patient, discussed the same with the dictator, and agree with the dictator's assessment and plan as written ,documented as a scribe. Based on total visit time, I have performed more than 50% of the visit. Patient Condition at Discharge: Poor Plan - Discharge Summary Discharge Rx Participant: No New Discharge Prescriptions: No Action Tamsulosin [Flomax] 0.4 mg PO HS ondansetron HCL [Zofran] 4 mg PO Q8H PRN PRN Reason: Nausea And Vomiting Apixaban [Eliquis] 2.5 mg PO BID Ipratropium/Albuter 20-100Mcg [Combivent Respimat 20-100Mcg Inhaler] 1 puff INHALATION RT-QID Ipratropium-Albuterol Nebulize [Duoneb 0.5 mg-3 mg/3 ml Soln] 3 ml INHALATION RT-Q4H PRN PRN Reason: Shortness Of Breath Dicyclomine [Bentyl] 20 mg PO Q8H PRN PRN Reason: IBS INSULIN ASPART (NovoLOG) [NovoLOG (formulary)] See Protocol SQ ACHS Torsemide [Demadex] 40 mg PO DAILY@0700 Fluticasone/Vilanterol [Breo Ellipta 200-25 Mcg Inhaler] 1 puff INHALATION RT-DAILY@0600 diphenhydrAMINE [Benadryl] 25 mg PO TID PRN cap PRN Reason: Itching Pantoprazole [Protonix] 40 mg PO AC-BRKFST tab Insulin Glargine,Hum.rec.anlog [Lantus Solostar Pen] 25 unit SQ HS@2000 Levothyroxine Sodium [Synthroid] 25 mcg PO DAILY@0700 allopurinoL [Zyloprim] 200 mg PO DAILY@1400 Lidocaine 5% Patch [Lidoderm 5% Patch] 1 patch TRANSDERM DAILY@1600 PRN PRN Reason: Pain Midodrine HCl [ProAmatine] 10 mg PO TID Budesonide [Pulmicort] 0.5 mg INHALATION RT-BID Metoprolol Succinate (ER) [Toprol XL] 50 mg PO HS@1999 Ferrous Sulfate [Iron (65 MG Elemental)] 325 mg PO DAILY@0800 Cholecalciferol [Vitamin D3 (25 Mcg = 1000 Iu)] 25 mcg PO DAILY@0800 Ascorbic Acid [Vitamin C] 1,000 mg PO BID@0800,1400 Loperamide HCl [Loperamide] 2 mg PO Q6H PRN PRN Reason: Diarrhea Darbepoetin Hubert [Aranesp] 60 mcg SQ Q7D each Artificial Tears-Hypromellose [Artificial Tear Drops] 2 drops BOTH EYES TID PRN ml PRN Reason: Dry Eye(S) Ipratropium-Albuterol Nebulize [Duoneb 0.5 mg-3 mg/3 ml Soln] 3 ml INHALATION RT-QID ml Discharge Medication List Tamsulosin [Flomax] 0.4 mg PO HS 06/23/16 [History] ondansetron HCL [Zofran] 4 mg PO Q8H PRN 09/30/18 [History] Apixaban [Eliquis] 2.5 mg PO BID 01/11/19 [History] Insulin Glargine,Hum.rec.anlog [Lantus Solostar Pen] 25 unit SQ HS@199908/02/20 [History] Levothyroxine Sodium [Synthroid] 25 mcg PO DAILY@0700 08/02/20 [History] Ipratropium/Albuter 20-100Mcg [Combivent Respimat 20-100Mcg Inhaler] 1 puff INHALATION RT-QID 05/17/21 [History] Lidocaine 5% Patch [Lidoderm 5% Patch] 1 patch TRANSDERM DAILY@1600 PRN 05/17/21 [History] Midodrine HCl [ProAmatine] 10 mg PO TID 05/17/21 [History] allopurinoL [Zyloprim] 200 mg PO DAILY@1400 05/17/21 [History] Ascorbic Acid [Vitamin C] 1,000 mg PO BID@0800,1400 06/24/21 [History] Budesonide [Pulmicort] 0.5 mg INHALATION RT-BID 06/24/21 [History] Cholecalciferol [Vitamin D3 (25 Mcg = 1000 Iu)] 25 mcg PO DAILY@0800 06/24/21 [History] Dicyclomine [Bentyl] 20 mg PO Q8H PRN 06/24/21 [History] Ferrous Sulfate [Iron (65 MG Elemental)] 325 mg PO DAILY@0800 06/24/21 [History] Fluticasone/Vilanterol [Breo Ellipta 200-25 Mcg Inhaler] 1 puff INHALATION RT- DAILY@0606/24/21 [History] INSULIN ASPART (NovoLOG) [NovoLOG (formulary)] See Protocol SQ ACHS 06/24/21 [History] Ipratropium-Albuterol Nebulize [Duoneb 0.5 mg-3 mg/3 ml Soln] 3 ml INHALATION RT-Q4H PRN 06/24/21 [History] Loperamide HCl [Loperamide] 2 mg PO Q6H PRN 06/24/21 [History] Metoprolol Succinate (ER) [Toprol XL] 50 mg PO HS@199906/24/21 [History] Torsemide [Demadex] 40 mg PO DAILY@0706/24/21 [History] Artificial Tears-Hypromellose [Artificial Tear Drops] 2 drops BOTH EYES TID PRN ml 07/07/21 [Rx] Darbepoetin Hubert [Aranesp] 60 mcg SQ Q7D each 07/07/21 [Rx] Ipratropium-Albuterol Nebulize [Duoneb 0.5 mg-3 mg/3 ml Soln] 3 ml INHALATION RT-QID ml 07/07/21 [Rx] Pantoprazole [Protonix] 40 mg PO AC-BRKFST tab 07/07/21 [Rx] diphenhydrAMINE [Benadryl] 25 mg PO TID PRN cap 07/07/21 [Rx] Follow up Appointment(s)/Referral(s): Neeta Mckeon DO [Doctor of Osteopathic Medicine] - 1 [facility] [NON-STAFF] - (contact [facility] when you get home to let them know) [facility] [Primary Care Provider] - 1-2 days
== END 2021-08-18 20:23 | disposition expired | DRG 291 ==
LOC: EC 16:02 → 4SSUR 19:15 → 2SICU 08-04 07:52
PROVIDERS: ADMIT Hospitalist; ATTEND Hospitalist
PROC: 5A1D70Z Performance of Urinary Filtration, Intermittent, Less than 6 Hours Per Day (ICD-10-PCS; 2021-07-26)
PROC: 06HY33Z Insertion of Infusion Device into Lower Vein, Percutaneous Approach (ICD-10-PCS; 2021-07-27)
PROC: 0JH63XZ Insertion of Tunneled Vascular Access Device into Chest Subcutaneous Tissue and Fascia, Percutaneous Approach (ICD-10-PCS; 2021-08-02)
PROC: 05HM33Z Insertion of Infusion Device into Right Internal Jugular Vein, Percutaneous Approach (ICD-10-PCS; 2021-08-02)
PROC: 30233N1 Transfusion of Nonautologous Red Blood Cells into Peripheral Vein, Percutaneous Approach (ICD-10-PCS; 2021-08-02 13:05)
PROC: 5A1955Z Respiratory Ventilation, Greater than 96 Consecutive Hours (ICD-10-PCS; principal; 2021-08-04)
PROC: 06HY33Z Insertion of Infusion Device into Lower Vein, Percutaneous Approach (ICD-10-PCS; 2021-08-04)
PROC: 0BH17EZ Insertion of Endotracheal Airway into Trachea, Via Natural or Artificial Opening (ICD-10-PCS; 2021-08-05)
PROC: 03HY32Z Insertion of Monitoring Device into Upper Artery, Percutaneous Approach (ICD-10-PCS; 2021-08-05)
PROC: 4A133B1 Monitoring of Arterial Pressure, Peripheral, Percutaneous Approach (ICD-10-PCS; 2021-08-05)
PROC: 4A133J1 Monitoring of Arterial Pulse, Peripheral, Percutaneous Approach (ICD-10-PCS; 2021-08-05)
PROC: 3E033XZ Introduction of Vasopressor into Peripheral Vein, Percutaneous Approach (ICD-10-PCS; 2021-08-12)
PROC: 5A0945A Assistance with Respiratory Ventilation, 24-96 Consecutive Hours, High Flow/Velocity Cannula (ICD-10-PCS; 2021-08-17)
DX: I13.2 Hypertensive heart and chronic kidney disease with heart failure and with stage 5 chronic kidney disease, or end stage renal disease (principal); J69.0 Pneumonitis due to inhalation of food and vomit; N18.6 End stage renal disease; N17.0 Acute kidney failure with tubular necrosis; I50.33 Acute on chronic diastolic (congestive) heart failure; J96.21 Acute and chronic respiratory failure with hypoxia; J96.02 Acute respiratory failure with hypercapnia; J15.6 Pneumonia due to other Gram-negative bacteria; D62 Acute posthemorrhagic anemia; J44.1 Chronic obstructive pulmonary disease with (acute) exacerbation; J44.0 Chronic obstructive pulmonary disease with (acute) lower respiratory infection; E87.0 Hyperosmolality and hypernatremia; E87.2 Acidosis; K92.2 Gastrointestinal hemorrhage, unspecified; Z20.822 Contact with and (suspected) exposure to COVID-19; I42.8 Other cardiomyopathies; D50.9 Iron deficiency anemia, unspecified; D63.8 Anemia in other chronic diseases classified elsewhere; E03.9 Hypothyroidism, unspecified; E11.22 Type 2 diabetes mellitus with diabetic chronic kidney disease; E11.51 Type 2 diabetes mellitus with diabetic peripheral angiopathy without gangrene; Z51.5 Encounter for palliative care; Z66 Do not resuscitate; E11.621 Type 2 diabetes mellitus with foot ulcer; E78.5 Hyperlipidemia, unspecified; E83.42 Hypomagnesemia; E83.52 Hypercalcemia; E87.5 Hyperkalemia; F10.21 Alcohol dependence, in remission; F32.A Depression, unspecified; F41.0 Panic disorder [episodic paroxysmal anxiety]; G47.33 Obstructive sleep apnea (adult) (pediatric); I48.0 Paroxysmal atrial fibrillation; I49.5 Sick sinus syndrome; I87.8 Other specified disorders of veins; I95.3 Hypotension of hemodialysis; K21.9 Gastro-esophageal reflux disease without esophagitis; L97.522 Non-pressure chronic ulcer of other part of left foot with fat layer exposed; M89.8X9 Other specified disorders of bone, unspecified site; Y95 Nosocomial condition; Z79.01 Long term (current) use of anticoagulants; Z79.4 Long term (current) use of insulin; Z79.890 Hormone replacement therapy; Z79.899 Other long term (current) drug therapy; Z86.718 Personal history of other venous thrombosis and embolism; Z87.01 Personal history of pneumonia (recurrent); Z87.891 Personal history of nicotine dependence; Z91.19 Patient's noncompliance with other medical treatment and regimen; Z95.0 Presence of cardiac pacemaker; Z99.2 Dependence on renal dialysis; Z99.81 Dependence on supplemental oxygen; N18.32 Chronic kidney disease, stage 3b; K29.50 Unspecified chronic gastritis without bleeding
CPT/HCPCS: 36415; 36558; 36600; 70450; 71045; 71275; 74018; 76770; 76937; 77001; 78278; 80048; 80053; 80202; 81001; 82272; 82805; 83540; 83550; 83605; 83735; 83880; 84100; 84132; 84145; 84484; 85025; 85027; 85045; 85610; 85730; 86038; 86160; 86225; 86255; 86334; 86335; 86704; 86706; 86850; 86900; 86901; 86920; 87040; 87070; 87077; 87186; 87205; 87324; 87340; 87635; 90935; 93005; 94002; 94003; 94640; 94660; 94760; 96374; 96375; 99285

== ENCOUNTER 2021-08-18 15:25 | Inpatient (IN) | payer MEDICAID ==
[2021-08-18] MEDS ORDERED: MORPHINE SULFATE 2 MG/ML SYRINGE IV PRN (16:33)
[2021-08-18] MEDS ORDERED: ACETAMINOPHEN SUPPOSITORY 650 MG SUPP RECTAL PRN (16:33)
[2021-08-18] MEDS ORDERED: LORazepam 2 MG/ML INJ IV PRN (16:33)
[2021-08-18] MEDS ORDERED: GLYCOPYRROLATE 0.2 MG/ML 2 ML VIAL IVP PRN (16:33)
[2021-08-18] MEDS ORDERED: ATROPINE OPHTH SOLN 1% 5ML BTL SUBLINGUAL PRN (16:33)
[2021-08-18] MEDS ORDERED: ONDANSETRON 4 MG/2 ML VIAL IVP PRN (16:33)
[2021-08-18] MEDS ORDERED: MORPHINE SULFATE (100 MG/2 ML) 100 MG in SODIUM CHLORIDE 0.9% 100 ML IV SCH (16:45)
[2021-08-18] MEDS ORDERED: SCOPOLAMINE 1 MG/72 HR PATCH TRANSDERM SCH (16:45)
[2021-08-18 22:44] VITALS: BP 43/25; PULSE 58; RESP 15
--- NOTE | 2021-08-19 10:06 | P.HPIM ---
History of Present Illness H&P Date: 08/18/21 Patient is a 65-year-old male with multiple medical problems multiple comorbidities was recently discharged from the hospital after he was treated for volume or note from chronic gastritis function and the cardiorenal syndrome. Patient was discharged to rehab facility 2 days into rehab related patient patient went home and started having shortness of breath volume overload diffuse anasarca and pedal edema. Patient is found to be in significant volume or lower chest x-ray showed bilateral pleural effusion although this appears to have improved compared to last admission when he had thoracentesis. Patient has significant lab abnormalities including creatinine going up to around 10 potassium 6.2 very low magnesium of 0.9 nephrology was consulted. As per nephrology patient will lead hemodialysis, consult to vascular surgery was placed for hemodialysis catheter placement and patient will be subsequently started on hemodialysis. Patient does have advanced COPD uses about 5 L of oxygen. 08/18/2021 Patient has been transferred to inpatient hospice after prolonged hospitalization and clinical deterioration with no improvement even after hemodialysis initiated with multiple medical consultations following and patient had been maintained on IV antibiotics. Patient's clinical status continued to deteriorate and family met with hospice and are agreeable with hospice inpatient and comfort measures only. REVIEW OF SYSTEMS: CONSTITUTIONAL: No fever. HEENT: No recent visual problems or hearing problems. Denied any sore throat. CARDIOVASCULAR: No chest pain, orthopnea, PND, no palpitations, no syncope. PULMONARY: no hemoptysis. GASTROINTESTINAL: No diarrhea, no nausea, no vomiting, no abdominal pain. NEUROLOGICAL: No headaches, no weakness, no numbness. HEMATOLOGICAL: Denies any bleeding or petechiae. GENITOURINARY: Denies any burning micturition, frequency, or urgency. MUSCULOSKELETAL/RHEUMATOLOGICAL: Denies any joint pain, swelling, or any muscle pain. ENDOCRINE: Denies any polyuria or polydipsia. The rest of the 14-point review of systems is negative. PHYSICAL EXAMINATION: GENERAL: The patient is alert and oriented x1, not in any acute distress. Well developed, well nourished. HEENT: Pupils are round and equally reacting to light. EOMI. No scleral icterus. No conjunctival pallor. Normocephalic, atraumatic. No pharyngeal erythema. No thyromegaly. CARDIOVASCULAR: S1 and S2 present. No murmurs, rubs, or gallops. PULMONARY: Bibasilar crackles ABDOMEN: Soft, nontender, nondistended, normoactive bowel sounds. No palpable organomegaly. MUSCULOSKELETAL: No joint swelling or deformity. EXTREMITIES: No cyanosis, clubbing, and a thickened anasarca and extensive pedal edema NEUROLOGICAL: Gross neurological examination did not reveal any focal deficits. Significant muscle weakness muscle atrophy generalized weakness. SKIN: No rashes. Assessment: - Recurrent aspiration leading to respiratory distress and status post extubation. Sputum culture is growing Corynebacterium and Adama - acute diastolic congestive heart failure secondary to cardiorenal - Acute COPD exacerbation - hypernatremia, sodium is 150 today - Acute kidney injury on stage IV CKD, started on HD during this admission - Normochromic normocytic anemia with suspected GI bleed, recurrent - anasarca secondary to cardiorenal syndrome as mentioned above. Hemodialysis per nephrology - Anemia of chronic disease, with recent drop in hemoglobin. Rule out GI bleed, unable to perform endoscopies as failing swallow - Loose bowel movement, C. diff colitis ruled out - Hypomagnesemia, replaced per Protocol - Chronic respiratory failure secondary to COPD , 5 L of oxygen at home. There is evidence of acute exacerbation - Possible pneumonia, hospital-acquired with elevated procalcitonin 0.5 - Hypertension - Hyperlipidemia - Hypothyroidism - History of recent fall and fracture to the left wrist with malunion noted - Paroxsymal atrial fibrillation presently rate controlled patient does have sick sinus syndrome history patient has a pacemaker - Type 2 diabetes mellitus - DVT prophylaxis - GI prophylaxis - no code Plan: Patient has been made inpatient hospice with [facility] following and will continue to monitor with comfort measures only. Family at the bedside agreeable with this treatment plan with overall prognosis remaining extremely poor and guarded. The impression and plan of care has been dictated by Rochelle Salinas, Nurse Practitioner as directed. Dr. Garo MD I have performed a history and examination and MDM of this patient, discussed the same with the dictator, and agree with the dictator's assessment and plan as written ,documented as a scribe. Based on total visit time, I have performed more than 50% of the visit. Past Medical History Past Medical History: Atrial Fibrillation, Heart Failure, COPD, Diabetes Mellitus, Deep Vein Thrombosis (DVT), GERD/Reflux, Hyperlipidemia, Hypertension, Pneumonia, Renal Disease, Respiratory Disorder, Skin Disorder, Sleep Apnea/CPAP/BIPAP, Vascular Disorder Additional Past Medical History / Comment(s): Pt recently admitted to [facility] on 06/24/21 with acute/chronic kidney disease, acute on chronic hypoxic respiratory distress, acute CHF, bilateral pleural effusion/R side worse and had thoracentesis, sputum with pseudomonos aeraginosis, hemotysis. Other hx: Chronic hypoxic respiratory failure and the patient OXYGEN dependent 5 L, previous history of left-sided pneumothorax requiring a Thoravent insertion, 2014 covid, IDDM type II, neuropathy bilateral feet, paroxysmal AFIB, SSS with pacer, nonischemic cardiomyopathy, past alcoholism/DTs, diverticulosis, obstuctive sleep apnea but no Cpap since wt loss, sinusitis, elevated LFTs, BPH, CKD stag III, DVT R leg, gout, hypothyroid, hypomagnesemia, hypoalbuminemia, anemia, protein calorie malnutrition, PVD, current sores bottom of L foot, left wrist fracture History of Any Multi-Drug Resistant Organisms: None Reported Past Surgical History: Appendectomy, Cholecystectomy, Heart Catheterization, Pacemaker Additional Past Surgical History / Comment(s): Partial liver removed d/t adhesions, colonoscopies, bilateral eyes blepharoplasties, pacer Past Anesthesia/Blood Transfusion Reactions: Postoperative Nausea & Vomiting (PONV) Additional Past Anesthesia/Blood Transfusion Reaction / Comment(s): Pt states he has had PONV with gas only. Type of Cardiac Device: Permanent Pacemaker Device Placement Date:: 2017 Smoking Status: Former smoker - Past Family History Mother Family Medical History: Thyroid Disorder Additional Family Medical History / Comment(s): . Father Additional Family Medical History / Comment(s): Father of diverticulitis,peritonitis at the age of 35yrs. Medications and Allergies Home Medications Medication Instructions Recorded Confirmed Type Tamsulosin [Flomax] 0.4 mg PO HS 06/23/16 08/18/21 History ondansetron HCL [Zofran] 4 mg PO Q8H PRN 09/30/18 08/18/21 History Apixaban [Eliquis] 2.5 mg PO BID 01/11/19 08/18/21 History Insulin Glargine,Hum.rec.anlog 25 unit SQ HS@199908/02/20 08/18/21 History [Lantus Solostar Pen] Levothyroxine Sodium [Synthroid] 25 mcg PO DAILY@00 08/02/20 08/18/21 History Ipratropium/Albuter 20-100Mcg 1 puff INHALATION RT-QID 05/17/21 08/18/21 History [Combivent Respimat 20-100Mcg Inhaler] Lidocaine 5% Patch [Lidoderm 5% 1 patch TRANSDERM DAILY@1600 PRN 05/17/21 08/18/21 History Patch] Midodrine HCl [ProAmatine] 10 mg PO TID 05/17/21 08/18/21 History allopurinoL [Zyloprim] 200 mg PO DAILY@1400 05/17/21 08/18/21 History Ascorbic Acid [Vitamin C] 1,000 mg PO BID@0800,1400 06/24/21 08/18/21 History Budesonide [Pulmicort] 0.5 mg INHALATION RT-BID 06/24/21 08/18/21 History Cholecalciferol [Vitamin D3 (25 25 mcg PO DAILY@0800 06/24/21 08/18/21 History Mcg = 1000 Iu)] Dicyclomine [Bentyl] 20 mg PO Q8H PRN 06/24/21 08/18/21 History Ferrous Sulfate [Iron (65 MG 325 mg PO DAILY@0800 06/24/21 08/18/21 History Elemental)] Fluticasone/Vilanterol [Breo 1 puff INHALATION RT-DAILY@0600 06/24/21 08/18/21 History Ellipta 200-25 Mcg Inhaler] INSULIN ASPART (NovoLOG) [NovoLOG See Protocol SQ ACHS 06/24/21 08/18/21 History (formulary)] Ipratropium-Albuterol Nebulize 3 ml INHALATION RT-Q4H PRN 06/24/21 08/18/21 History [Duoneb 0.5 mg-3 mg/3 ml Soln] Loperamide HCl [Loperamide] 2 mg PO Q6H PRN 06/24/21 08/18/21 History Metoprolol Succinate (ER) [Toprol 50 mg PO HS@199906/24/21 08/18/21 History XL] Torsemide [Demadex] 40 mg PO DAILY@0700 06/24/21 08/18/21 History Artificial Tears-Hypromellose 2 drops BOTH EYES TID PRN ml 07/07/21 08/18/21 Rx [Artificial Tear Drops] Darbepoetin Hubert [Aranesp] 60 mcg SQ Q7D each 07/07/21 08/18/21 Rx Ipratropium-Albuterol Nebulize 3 ml INHALATION RT-QID ml 07/07/21 08/18/21 Rx [Duoneb 0.5 mg-3 mg/3 ml Soln] Pantoprazole [Protonix] 40 mg PO AC-BRKFST tab 07/07/21 08/18/21 Rx diphenhydrAMINE [Benadryl] 25 mg PO TID PRN cap 07/07/21 08/18/21 Rx Allergies Allergy/AdvReac Type Severity Reaction Status Date / Time codeine Allergy Unknown Verified 08/18/21 20:51 Physical Exam Vitals: Vital Signs Pulse Resp BP 08/18/21 22:43 58 L 15 43/25 08/18/21 22:36 58 L 15 Intake and Output 08/18/21 08/19/21 08/19/21 22:59 06:59 14:59 Intake Total 2.924 Balance 2.924 Intake: Intake, IV Titration 2.924 Amount Morphine Sulfate (100 mg/ 2.924 2 ml) 100 mg In Sodium Chloride 0.9% 100 ml @ 1 MG/HR 1.02 mls/hr IV . Q24H [facility] Rx#:[id number] Other: Weight 92.6 kg
--- NOTE | 2021-08-19 10:13 | P.DS ---
Providers Date of admission: 08/18/21 20:28 Expected date of discharge: 08/19/21 Attending physician: Vel Wilburn Primary care physician: [facility] Hospital Course: Final diagnosis - Recurrent aspiration leading to respiratory distress and status post extubation. Sputum culture is growing Corynebacterium and Adama - acute diastolic congestive heart failure secondary to cardiorenal - Acute COPD exacerbation - hypernatremia, sodium is 150 today - Acute kidney injury on stage IV CKD, started on HD during this admission - Normochromic normocytic anemia with suspected GI bleed, recurrent - anasarca secondary to cardiorenal syndrome as mentioned above. Hemodialysis per nephrology - Anemia of chronic disease, with recent drop in hemoglobin. Rule out GI bleed, unable to perform endoscopies as failing swallow - Loose bowel movement, C. diff colitis ruled out - Hypomagnesemia, replaced per Protocol - Chronic respiratory failure secondary to COPD , 5 L of oxygen at home. There is evidence of acute exacerbation - Possible pneumonia, hospital-acquired with elevated procalcitonin 0.5 - Hypertension - Hyperlipidemia - Hypothyroidism - History of recent fall and fracture to the left wrist with malunion noted - Paroxsymal atrial fibrillation presently rate controlled patient does have sick sinus syndrome history patient has a pacemaker - Type 2 diabetes mellitus - DVT prophylaxis - GI prophylaxis - no code Preliminary cause of Aspiration pneumonia Discharge disposition Patient has . According to nursing documentation time of was 08/18/2021 at 2350. Family was at the bedside and patient was on inpatient hospice. Please refer to previous dictations for further HPI. Hospital course This is a 65-year-old male with an extensive past medical history of diastolic congestive heart failure secondary to cardiorenal with acute COPD exacerbation, kidney injury with stage IV kidney disease leading to hemodialysis during this admission along with continued chronic anemia with suspected possible GI bleed. Patient also known to have anasarca secondary to cardiorenal syndrome and chronic respiratory failure secondary to COPD maintained on 5 L of oxygen. Patient has had prolonged hospitalization and multiple readmissions for this and clinically continued to deteriorate. Patient did have intubation briefly during this admission and successfully extubated although continued to aspirate and most likely aspiration pneumonia. Patient was maintained on IV antibiotics and sputum cultures showing corynebacterium and Adama and was maintained on IV antibiotics with no improvement and continued to have increasing white blood count. Lengthy discussion was had with the family about overall prognosis which was extremely guarded and poor and family decided along with the patient and was agreeable with [facility]. Patient was made hospice comfort measures only and placed on morphine drip and shortly after had . Again please refer to previous dictations and other consultations for further HPI. The impression and plan of care has been dictated by Rochelle Salinas, Nurse Practitioner as directed. Dr. Garo MD I have performed a history and examination and MDM of this patient, discussed the same with the dictator, and agree with the dictator's assessment and plan as written ,documented as a scribe. Based on total visit time, I have performed more than 50% of the visit. Patient Condition at Discharge: Poor Plan - Discharge Summary New Discharge Prescriptions: No Action Tamsulosin [Flomax] 0.4 mg PO HS ondansetron HCL [Zofran] 4 mg PO Q8H PRN PRN Reason: Nausea And Vomiting Apixaban [Eliquis] 2.5 mg PO BID Ipratropium/Albuter 20-100Mcg [Combivent Respimat 20-100Mcg Inhaler] 1 puff INHALATION RT-QID Ipratropium-Albuterol Nebulize [Duoneb 0.5 mg-3 mg/3 ml Soln] 3 ml INHALATION RT-Q4H PRN PRN Reason: Shortness Of Breath Dicyclomine [Bentyl] 20 mg PO Q8H PRN PRN Reason: IBS INSULIN ASPART (NovoLOG) [NovoLOG (formulary)] See Protocol SQ ACHS Torsemide [Demadex] 40 mg PO DAILY@0700 Fluticasone/Vilanterol [Breo Ellipta 200-25 Mcg Inhaler] 1 puff INHALATION RT-DAILY@0600 diphenhydrAMINE [Benadryl] 25 mg PO TID PRN cap PRN Reason: Itching Pantoprazole [Protonix] 40 mg PO AC-BRKFST tab Insulin Glargine,Hum.rec.anlog [Lantus Solostar Pen] 25 unit SQ HS@2000 Levothyroxine Sodium [Synthroid] 25 mcg PO DAILY@0700 allopurinoL [Zyloprim] 200 mg PO DAILY@1400 Lidocaine 5% Patch [Lidoderm 5% Patch] 1 patch TRANSDERM DAILY@1600 PRN PRN Reason: Pain Midodrine HCl [ProAmatine] 10 mg PO TID Budesonide [Pulmicort] 0.5 mg INHALATION RT-BID Metoprolol Succinate (ER) [Toprol XL] 50 mg PO HS@1999 Ferrous Sulfate [Iron (65 MG Elemental)] 325 mg PO DAILY@0800 Cholecalciferol [Vitamin D3 (25 Mcg = 1000 Iu)] 25 mcg PO DAILY@0800 Ascorbic Acid [Vitamin C] 1,000 mg PO BID@0800,1400 Loperamide HCl [Loperamide] 2 mg PO Q6H PRN PRN Reason: Diarrhea Darbepoetin Hubert [Aranesp] 60 mcg SQ Q7D each Artificial Tears-Hypromellose [Artificial Tear Drops] 2 drops BOTH EYES TID PRN ml PRN Reason: Dry Eye(S) Ipratropium-Albuterol Nebulize [Duoneb 0.5 mg-3 mg/3 ml Soln] 3 ml INHALATION RT-QID ml Discharge Medication List Tamsulosin [Flomax] 0.4 mg PO HS 06/23/16 [History] ondansetron HCL [Zofran] 4 mg PO Q8H PRN 09/30/18 [History] Apixaban [Eliquis] 2.5 mg PO BID 01/11/19 [History] Insulin Glargine,Hum.rec.anlog [Lantus Solostar Pen] 25 unit SQ HS@199908/02/20 [History] Levothyroxine Sodium [Synthroid] 25 mcg PO DAILY@0700 08/02/20 [History] Ipratropium/Albuter 20-100Mcg [Combivent Respimat 20-100Mcg Inhaler] 1 puff INHALATION RT-QID 05/17/21 [History] Lidocaine 5% Patch [Lidoderm 5% Patch] 1 patch TRANSDERM DAILY@1600 PRN 05/17/21 [History] Midodrine HCl [ProAmatine] 10 mg PO TID 05/17/21 [History] allopurinoL [Zyloprim] 200 mg PO DAILY@1400 05/17/21 [History] Ascorbic Acid [Vitamin C] 1,000 mg PO BID@0800,1400 06/24/21 [History] Budesonide [Pulmicort] 0.5 mg INHALATION RT-BID 06/24/21 [History] Cholecalciferol [Vitamin D3 (25 Mcg = 1000 Iu)] 25 mcg PO DAILY@0800 06/24/21 [History] Dicyclomine [Bentyl] 20 mg PO Q8H PRN 06/24/21 [History] Ferrous Sulfate [Iron (65 MG Elemental)] 325 mg PO DAILY@0800 06/24/21 [History] Fluticasone/Vilanterol [Breo Ellipta 200-25 Mcg Inhaler] 1 puff INHALATION RT- DAILY@0606/24/21 [History] INSULIN ASPART (NovoLOG) [NovoLOG (formulary)] See Protocol SQ ACHS 06/24/21 [History] Ipratropium-Albuterol Nebulize [Duoneb 0.5 mg-3 mg/3 ml Soln] 3 ml INHALATION RT-Q4H PRN 06/24/21 [History] Loperamide HCl [Loperamide] 2 mg PO Q6H PRN 06/24/21 [History] Metoprolol Succinate (ER) [Toprol XL] 50 mg PO HS@199906/24/21 [History] Torsemide [Demadex] 40 mg PO DAILY@0706/24/21 [History] Artificial Tears-Hypromellose [Artificial Tear Drops] 2 drops BOTH EYES TID PRN ml 07/07/21 [Rx] Darbepoetin Hubert [Aranesp] 60 mcg SQ Q7D each 07/07/21 [Rx] Ipratropium-Albuterol Nebulize [Duoneb 0.5 mg-3 mg/3 ml Soln] 3 ml INHALATION RT-QID ml 07/07/21 [Rx] Pantoprazole [Protonix] 40 mg PO AC-BRKFST tab 07/07/21 [Rx] diphenhydrAMINE [Benadryl] 25 mg PO TID PRN cap 07/07/21 [Rx] Discharge Disposition: - Preliminary Cause of Preliminary Cause of : Aspiration pneumonia
== END 2021-08-18 23:50 | disposition expired | DRG 951 ==
LOC: 2SICU 20:28 → 4SSUR 22:27
PROVIDERS: ADMIT Hospitalist; ATTEND Hospitalist
DX: Z51.5 Encounter for palliative care (principal); I50.33 Acute on chronic diastolic (congestive) heart failure; J69.0 Pneumonitis due to inhalation of food and vomit; E87.0 Hyperosmolality and hypernatremia; I13.0 Hypertensive heart and chronic kidney disease with heart failure and stage 1 through stage 4 chronic kidney disease, or unspecified chronic kidney disease; I42.8 Other cardiomyopathies; J44.1 Chronic obstructive pulmonary disease with (acute) exacerbation; J96.11 Chronic respiratory failure with hypoxia; N17.9 Acute kidney failure, unspecified; N18.4 Chronic kidney disease, stage 4 (severe); K92.2 Gastrointestinal hemorrhage, unspecified; E87.70 Fluid overload, unspecified; D63.8 Anemia in other chronic diseases classified elsewhere; E03.9 Hypothyroidism, unspecified; E11.22 Type 2 diabetes mellitus with diabetic chronic kidney disease; E78.5 Hyperlipidemia, unspecified; E83.42 Hypomagnesemia; F10.21 Alcohol dependence, in remission; K57.90 Diverticulosis of intestine, part unspecified, without perforation or abscess without bleeding; M10.9 Gout, unspecified; J32.9 Chronic sinusitis, unspecified; K29.50 Unspecified chronic gastritis without bleeding; B96.89 Other specified bacterial agents as the cause of diseases classified elsewhere; G47.33 Obstructive sleep apnea (adult) (pediatric); I48.0 Paroxysmal atrial fibrillation; I49.5 Sick sinus syndrome; Z79.01 Long term (current) use of anticoagulants; Z79.4 Long term (current) use of insulin; Z79.890 Hormone replacement therapy; Z79.899 Other long term (current) drug therapy; Z87.891 Personal history of nicotine dependence; Z95.0 Presence of cardiac pacemaker; Z99.81 Dependence on supplemental oxygen; Z87.81 Personal history of (healed) traumatic fracture; Z87.01 Personal history of pneumonia (recurrent); Z88.5 Allergy status to narcotic agent